=== PATIENT | male | born 1955 | race Caucasian/White ===

== ENCOUNTER 2020-09-23 09:19 | Outpatient (CLI) | payer MEDICARE, SELFPAY ==
[2020-09-23 11:04] LABS: Basophils Percent Auto 0.6 % (0.2-1.2); Eosinophils Absolute Auto 0.1 K/mm3 (0-0.3); Eosinophils Percent Auto 1.7 % (0-4.4); Hematocrit 41.8 % (42.0-52.0); Hemoglobin 13.2 g/dL (14.0-18.0); Immature Granulocyte Absolute 0.02 K/mm3 (0.00-0.031); Immature Granulocyte Percent A 0.3 % (0-0.5); Lymphocytes Absolute Auto 2.18 K/mm3 (0.9-3.2); Mean Corpuscular HGB Conc 31.6 g/dl (32-36); Mean Corpuscular Hemoglobin 27.2 pg (26-34); Mean Corpuscular Volume 86.2 fl (80-100); Mean Platelet Volume 9.8 fl (7.4-10.4); Monocytes Absolute Auto 0.4 K/mm3 (0.1-0.6); Monocytes Percent Auto 6.7 % (2.6-8.5); Neutrophils Absolute Auto 3.8 K/mm3 (1.3-6.7); Neutrophils Percent Auto 57.7 % (45.5-73.1); Platelet Count Result 224 k/mm3 (150-375); Red Blood Count 4.85 M/mm3 (4.6-6.20); Red Cell Distribution Width 13.2 % (11.5-14.5); White Blood Count 6.6 K/mm3 (4.5-10.0)
[2020-09-23 11:16] LABS: Alanine Aminotransferase 11 U/L (4-50); Albumin Level 3.5 g/dL (3.5-5.1); Alkaline Phosphatase 96 U/L (38-126); Anion Gap 3 mmol/L (8-16); Aspartate Amino Transferase 19 U/L (17-59); Bilirubin,Total 0.5 mg/dL (0.2-1.3); Blood Urea Nitrogen 10 mg/dL (9-20); Calcium 9.4 mg/dL (8.4-10.2); Carbon Dioxide 34 mmol/L (22-30); Chloride 102 mmol/L (98-107); Cholesterol 214 mg/dL (0-200); Estimated Glomerular Filt Rate > 60; Glucose 243 mg/dL (75-110); HDL Direct 28 mg/dL; Potassium 4.9 mmol/L (3.4-5.0); Sodium 139 mmol/L (137-145); Triglycerides 300 mg/dL (<150)
[2020-09-23 11:27] LABS: LDL Cholesterol Direct 133 mg/dL
[2020-09-23 11:46] LABS: Prostate Specific Antigen 1.4 ng/mL (< OR = 4.0)
[2020-09-23 12:01] LABS: Creatinine Urine 189.4 mg/dL
[2020-09-23 14:06] LABS: Microalbumin Urine Random > 1140.0 mg/L (0-16.7)
== END 2020-09-23 09:20 | disposition home or self-care (01) ==
PROVIDERS: PCP Internal Medicine; Visit Provider Internal Medicine
DX: I10 Essential (primary) hypertension (principal); E11.9 Type 2 diabetes mellitus without complications; Z12.5 Encounter for screening for malignant neoplasm of prostate
CPT/HCPCS: 36415; 80053; 80061; 82043; 83036; 84153; 85025; G0103

== ENCOUNTER 2022-09-23 09:06 | Outpatient (CLI) | payer MEDICARE, SELFPAY ==
--- NOTE | 2022-09-23 11:30 | NEURO_ITS ---
Impression: #known diabetic, complains of upper extremity pain. 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 # Abnormal neurogenic needle/EMG exam. Motor Nerve Conduction Upper Extremities Median Nerve Conduction Velocity (m/sec) Terminal Latency (msec) Response Voltage(mV) Elbow-Wrist Wrist Elbow Wrist Right 48 4.6 2 2 Left 46 6.9 1 1 Ulnar Nerve Conduction Velocity (m/sec) Terminal Latency (msec) Response Voltage(mV) Above Elbow Below Elbow Wrist Above Elbow Below Elbow Wrist Right 28 NR 3.6 .3 NR .7 Left NR 3.8 NR 1 F-Wave Latency Median (ms) Ulnar (ms) Right 29.9 31.6 Left 29.9 31.2 Sensory Nerve Conduction Upper Extremities Median Nerve Stimulation Terminal Latency (msec) Wrist/Digit Response Voltage (uV) Wrist Right 4.8/5.2 27/9 Left 6.9/NR 3/NR Ulnar Nerve Stimulation Terminal Latency (msec) Wrist/Digit Response Voltage (uV) Wrist Right 6.8 23 Left NR NR Radial Nerve Terminal Latency (msec) Response Voltage(mV) Right 3.3 7 Left NR NR Left Right Muscles Examined Fibrillation Fasciculation Scarcity Voltage Duration Left Right Left Right Left Right Left Right Left Right Deltoid Biceps X X Brachioradialis + = >12ms >12ms Triceps X X Pronator Teres + + >12ms >12ms X X Ext Indicis + + >12ms >12ms X X Ext Digitorum + + >12ms >12ms X X Abd Poll Brev ++ ++ >12ms >12ms X X 1st Dorsal Interosseus + ++ +++ >12ms >12ms X X Abd Dig Min + +++ ++++ >12ms >12ms MTDD
== END 2022-09-23 09:07 | disposition home or self-care (01) ==
PROVIDERS: PCP Internal Medicine; Visit Provider Orthopaedic Surgery Hand Surgery
DX: M25.521 Pain in right elbow (principal); G62.9 Polyneuropathy, unspecified; G56.02 Carpal tunnel syndrome, left upper limb; G56.23 Lesion of ulnar nerve, bilateral upper limbs
CPT/HCPCS: 95886; 95911

== ENCOUNTER 2024-10-10 14:31 | Outpatient (CLI) | payer MEDICARE, SELFPAY ==
--- NOTE | ~2024-10-10 | XR_ITS ---
CHEST RADIOGRAPH, PA AND LATERAL CLINICAL HISTORY: Presence of cardiac pacemaker or defibrillator . COMPARISON: None available TECHNIQUE: PA and lateral views of the chest. FINDINGS The left mid lung is partially obscured due to pacemaker generator. Wires project over the right atrium and right ventricle. The remainder of the cardiomediastinal silhouette is otherwise unremarkable. The lungs are clear. Visualized osseous structures and soft tissues are unremarkable. IMPRESSION: No focal infiltrate or effusion. Reviewed, dictated and finalized at location A. [employer]
== END 2024-10-10 14:32 | disposition home or self-care (01) ==
PROVIDERS: PCP Internal Medicine; Visit Provider Internal Medicine Cardiovascular Disease
DX: Z95.0 Presence of cardiac pacemaker (principal)
CPT/HCPCS: 71046

== ENCOUNTER 2025-02-14 12:00 | Inpatient (IN) | payer MEDICARE, SELFPAY ==
[2025-02-14] VITALS (9 sets, daily range): BP systolic 143–178; BP diastolic 67–87; PULSE 62–79; RESP 13–20; TEMP 36.3–36.4; O2SAT 97–100; BMI 40.8
--- NOTE | ~2025-02-14 | XR_ITS ---
XR foot LT min 3V 02/14/2025 13:21 Indication: Gangrene of the foot Procedure: 3 views left foot Comparison: No prior studies for comparison. Findings: Prominent degenerative calcaneal enthesophytes. There is atherosclerosis of the peripheral vessels. Moderate diffuse soft tissue swelling. There is an erosion at the fifth metatarsal head, ana picious for osteomyelitis. No acute fracture. Lisfranc joint intact. There is polyarticular osteoarth ritis. Impression: 1: Erosion fifth metatarsal head, suspicious for osteomyelitis. Consider correlation with MRI with co ntrast. Reviewed, dictated and finalized at location A. Impression: 1: Erosion fifth metatarsal head, suspicious for osteomyelitis. Consider correl ation with MRI with contrast.
--- NOTE | ~2025-02-14 | XR_ITS ---
EXAMINATION: XR foot RT min 3V DATE: 02/14/2025 13:20 INDICATION: Gangrene. TECHNIQUE: 3 views of right foot were obtained. COMPARISON: None. FINDINGS: Alignment is normal. There is an old healed fracture of diaphysis of fifth metatarsal. No a cute fracture. There is mild osteoarthritis of some of the interphalangeal joints. There are enthesop hytes at the posterior and plantar aspects of calcaneal tuberosity. There is soft tissue swelling in the foot. IMPRESSION: 1. No specific evidence of osteomyelitis. Reviewed, dictated and finalized at location A.
[2025-02-14 12:11] LABS: Glucose Point of Care 198 mg/dl (65-105)
[2025-02-14 12:24] LABS: Basophils Absolute Auto 0.1 K/mm3 (0.0-0.1); Basophils Percent Auto 0.8 % (0.2-1.2); Eosinophils Absolute Auto 0.2 K/mm3 (0-0.3); Eosinophils Percent Auto 2.8 % (0-4.4); Hematocrit 27.3 % (42.0-52.0); Immature Granulocyte Absolute 0.06 K/mm3 (0.00-0.031); Immature Granulocyte Percent A 0.7 % (0-0.5); Lymphocytes Absolute Auto 1.48 K/mm3 (0.9-3.2); Lymphocytes Percent Auto 17.2 % (18.3-44.2); Mean Corpuscular HGB Conc 29.3 g/dl (32-36); Mean Corpuscular Hemoglobin 25.5 pg (26-34); Mean Corpuscular Volume 86.9 fl (80-100); Mean Platelet Volume 9.3 fl (7.4-10.4); Monocytes Absolute Auto 0.5 K/mm3 (0.1-0.6); Monocytes Percent Auto 5.5 % (2.6-8.5); Neutrophils Absolute Auto 6.3 K/mm3 (1.3-6.7); Platelet Count Result 371 k/mm3 (150-375); Red Blood Count 3.14 M/mm3 (4.6-6.20); Red Cell Distribution Width 14.6 % (11.5-14.5); White Blood Count 8.6 K/mm3 (4.5-10.0)
[2025-02-14 12:34] LABS: Alanine Aminotransferase 17 U/L (6-50); Albumin Level 3.8 g/dL (3.5-5.1); Alkaline Phosphatase 95 U/L (38-126); Anion Gap 17 mmol/L (4-12); Aspartate Amino Transferase 19 U/L (17-59); Bilirubin,Total 0.5 mg/dL (0.2-1.3); Blood Urea Nitrogen 90 mg/dL (9-20); Calcium 8.9 mg/dL (8.4-10.2); Carbon Dioxide 23 mmol/L (22-30); Chloride 102 mmol/L (98-107); Estimated CRCL calculation 32 ml/min; Estimated Glomerular Filt Rate 23; Glucose 217 mg/dL (65-110); Potassium 3.7 mmol/L (3.4-5.0); Sodium 142 mmol/L (137-145)
[2025-02-14 13:06] LABS: Hypochromasia 1+; Platelet Estimate Adequate (Adequate)
[2025-02-14 13:07] LABS: Anisocytosis 1+; Schistocytes None Seen
--- NOTE | 2025-02-14 13:11 | ED_ITS ---
HPI - Extremity Problem General Chief complaint: Extremity Problem,Nontraumatic Stated complaint: ?gangrene to b/l feet Time Seen by Provider: 02/14/25 12:46 History of Present Illness HPI Narrative: 70-year-old male with a past medical history including type 2 diabetes insulin dependent, CKD, previous diabetic foot infections with heel debridement at [facility]. Patient's eyes counseling program leader yesterday for evaluation of discolored toes. He has black necrotic appearing toes on digits 4 and 5 on the left foot, digit 4 on the right foot. He states these have progressively worsened over last few weeks. His counseling program leader saw them yesterday and advised admission to the hospital. He was instructed to go to a different hospital than his normal care at [facility] secondary to insurance issues which is what the family is telling me presently. He denies any fever chills. Denies any new neuropathy weakness. He does have chronic edematous legs. No chest pain shortness a breath. Remote history of atrial fibrillation and on Eliquis. He has a pacemaker. Related Data Home Medications ?Medication ?Instructions ?Recorded ?Confirmed ?Last Taken ?Type atorvastatin 20 mg tablet 20 mg PO HS 06/30/23 02/14/25 Unknown History albuterol 90 mcg/actuation aerosol 90 mcg inhalation .q4hr PRN 02/14/25 02/14/25 Unknown History inhaler shortness of breath apixaban 5 mg tablet (Eliquis) 5 mg PO BID 02/14/25 02/14/25 Unknown History bumetanide 1 mg tablet 1 mg PO BID 02/14/25 02/14/25 Unknown History insulin glargine 100 unit/mL (3 25 unit subcut .q12hr 02/14/25 02/14/25 Unknown History mL) subcutaneous pen (Basaglar KwikPen U-100 Insulin) insulin lispro 100 unit/mL 10 unit subcut TIDWM 02/14/25 02/14/25 Unknown History subcutaneous pen (Humalog KwikPen (U-100) Insulin) metolazone 2.5 mg tablet 2.5 mg PO QMWF 02/14/25 02/14/25 Unknown History Allergies Allergy/AdvReac Type Severity Reaction Status Date / Time No Known Allergies Allergy Verified 02/14/25 12:05 Review of Systems 2 Review of Systems: As reviewed above in HPI [facility] Past Medical History Medical History BPH (benign prostatic hyperplasia) HTN (hypertension) Congestive heart failure Atrial fibrillation/flutter Hypothyroidism Diabetes mellitus type 2 in obese Family History Family History Unknown Diabetes mellitus Social History Social History Smoking status: Never smoker Alcohol intake: former Substance use: never Do You Feel Safe in your Home?: Yes Lack of Transportation: No Lack of Food: Never True Current Housing: I Have Housing Concerned About Future Housing: No Difficulty Paying Gas/Electric Bills: No Difficulty Paying for Meds: No Currently Unemployed: No Education: High School Diploma/GED Difficulty w/ Childcare or Family Care: No Spiritual care concerns: No Exam 2 Narrative: GENERAL: Chronically ill-appearing, not any acute distress HEAD: [Normocephalic, atraumatic.] EYES: [PERRLA and EOMI.] ENT: Nares clear, no rhinorrhea or epistaxis. Mucous membranes moist. NECK: Supple. CHEST: [Clear to auscultation. No respiratory distress.] HEART: [Regular rate and rhythm]. No murmur heard. Warm well-perfused extremities, faint palpable pulses likely due to edema in both feet but 2+ strong biphasic dopplerable pulses bilaterally in the feet ABDOMEN: [Soft, nondistended], [nontender], [No rigidity or guarding] EXTREMITIES: Normal range of motion. 2+ pitting edema. Gangrenous appearing toes of digits 4 5 in left foot, gangrenous appearing toe of digit 4 on the right foot. Purulence surrounding these digits as well. No sensation with palpation, no mobility. Multiple various stages of healing ulcerations of the bilateral toes, old pressure ulcer surgery of the right heel SKIN: Warm, dry, no rash. NEURO: [No focal deficits]. Alert and oriented [x3.] PSYCH: [Normal mood and affect.] Course Vital Signs Vital signs: Vital Signs Temperature 36.4 C L 02/14/25 11:54 Pulse Rate 71 02/14/25 11:54 Respiratory Rate 15 02/14/25 11:54 Blood Pressure 143/76 H 02/14/25 11:54 Pulse Oximetry 97 02/14/25 11:54 Oxygen Delivery Room Air 02/14/25 11:54 Temperature 36.3 C L 02/14/25 15:27 Pulse Rate 79 02/14/25 15:27 Respiratory Rate 16 02/14/25 15:27 Blood Pressure 173/87 H 02/14/25 15:27 Pulse Oximetry 99 02/14/25 15:27 Oxygen Delivery Room Air 02/14/25 15:59 MDM - Extremity (Nontraumatic) MDM Narrative Medical decision making narrative: 70-year-old male with history of type 2 diabetes, hypertension, CKD, atrial fibrillation on Eliquis b.i.d.. He presents to the emergency department today with gangrenous appearing toes with surrounding purulence. Appears to be wet gangrene of digits 4 5 in left foot, digits 4 on the right foot. Symptoms going on for several weeks but he has had chronic wounds for over 2 years according to him. Saw his counseling program leader yesterday who recommended going to a hospital for admission. He normally gets his care at [facility] but due to recent insurance issues and changes they were instructed to go to a different facility such as [facility] for admission. His counseling program leader is not associated with our facility. Patient's vital signs are not significant as he has no tachycardia, fever or hypoxia. No med significant blood pressure elevations. Chronic edematous appearing legs, chronically ill-appearing baseline but not septic appearing at this time. Laboratory studies were ordered including CBC, CMP, lactic acid, EKG. X-rays of bilateral foot were obtained. He was started on empiric antibiotics including vancomycin, metronidazole, Rocephin for coverage of diabetic foot wound. Attempted to call 2 different counseling program leader associated with [facility] who are out of the office not able to take his case. Will attempt to consult General surgery for recommendations. Laboratory studies showed no leukocytosis, anemia around his baseline. Negative lactic acid. GLORIA on CKD, mildly elevated glucose, normal LFTs, unremarkable electrolytes. X-rays of the right foot showed no evidence of osteomyelitis, left foot has some possible lucency consistent with osteomyelitis of the 5th metatarsal head. Patient is on appropriate antibiotic coverage including vancomycin for this. Spoke to general surgeon Dr. Hopkins who agreed to be on consult for potential amputation of the multiple gangrenous digits. Patient was made aware of the plan and he will be admitted to the hospitalist given his significant comorbidities. Spoke to the hospitalist team currently being covered by the midlevel provider who accepted the patient at this time to a medical/surgical bed. Lab Data 02/14/25 12:19 02/14/25 12:19 Labs: Lab Results 02/14/25 02/14/25 02/14/25 Range/Units 12:07 12:19 13:29 WBC 8.6 (4.5-10.0) K/mm3 RBC 3.14 L (4.6-6.20) M/mm3 Hgb 8.0 L (14.0-18.0) g/dL Hct 27.3 L (42.0-52.0) % MCV 86.9 (80-100) fl MCH 25.5 L (26-34) pg MCHC 29.3 L (32-36) g/dl RDW 14.6 H (11.5-14.5) % Plt Count 371 (150-375) k/mm3 MPV 9.3 (7.4-10.4) fl Immature Gran % (Auto) 0.7 H (0-0.5) % Neut % (Auto) 73.0 (45.5-73.1) % Lymph % (Auto) 17.2 L (18.3-44.2) % Grant % (Auto) 5.5 (2.6-8.5) % Eos % (Auto) 2.8 (0-4.4) % Baso % (Auto) 0.8 (0.2-1.2) % Lymph # (Auto) 1.48 (0.9-3.2) K/mm3 Grant # (Auto) 0.5 (0.1-0.6) K/mm3 Eos # (Auto) 0.2 (0-0.3) K/mm3 Baso # (Auto) 0.1 (0.0-0.1) K/mm3 Abs Immat Gran (auto) 0.06 H (0.00-0.031) K/mm3 Absolute Neuts (auto) 6.3 (1.3-6.7) K/mm3 Absolute Nucleated RBC 0.000 (0.0-0.012) K/mm3 Band Neutrophils % Not Reportable Nucleated RBC % 0.0 (0.0-0.2) % Platelet Estimate Adequate (Adequate) Hypochromasia 1+ Anisocytosis 1+ Schistocytes None seen Sodium 142 (137-145) mmol/L Potassium 3.7 (3.4-5.0) mmol/L Chloride 102 (98-107) mmol/L Carbon Dioxide 23 (22-30) mmol/L Anion Gap 17 H (4-12) mmol/L BUN 90 H D (9-20) mg/dL Creatinine 2.75 H (0.7-1.3) mg/dL Estim Creat Clear Calc 32 ml/min Estimated GFR 23 L (59 - ) Glucose 217 H (65-110) mg/dL POC Capillary Glucose 198 H (65-105) mg/dl Lactic Acid 1.4 (0.7-2.0) mmol/L Calcium 8.9 (8.4-10.2) mg/dL Total Bilirubin 0.5 (0.2-1.3) mg/dL AST 19 (17-59) U/L ALT 17 (6-50) U/L Alkaline Phosphatase 95 (38-126) U/L Total Protein 8.0 (6.3-8.2) g/dL Albumin 3.8 (3.5-5.1) g/dL Critical Care Time Critical Care Time Critical Care Time: Yes Total Critical Care Time: 35 Discharge Plan Discharge Clinical Impression: Gangrene, Diabetic foot ulcer with osteomyelitis, Acute kidney injury superimposed on CKD HTN (hypertension) Qualifiers: Hypertension type: primary hypertension Qualified Code(s): I10 - Essential (primary) hypertension Patient Disposition: Still a Patient Condition: Stable
--- NOTE | 2025-02-14 13:13 | ECG_ITS ---
Test Date: 2025-02-14 13:38:42 Measurements Intervals [place] Rate: 70 P: 129 SD: 270 QRS: 15 QRSD: 134 T: 48 QT: 443 QTc: 480 Interpretive Statements ELECTRONIC ATRIAL PACEMAKER INTRAVENTRICULAR CONDUCTION DELAY [130+ ms QRS DURATION] No previous ECG available for comparison Electronically Signed On 02-14-2025 14:39:20 CDT by Oliver Sanchez M.D.
[2025-02-14] MEDS: LACTATED RINGERS 1,000 ML 999 ML IV CONT (13:33)
[2025-02-14] MEDS: cefTRIAXone 2 GM/NS 100 ML 2 GM/100 ML BAG IVPB (13:34)
--- OUTSIDE RECORDS SUMMARY | 2025-02-14 13:47 | XMS_ITS | Data Portability ---
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 [email or web address] Not available 02/19/2024 15:11:16 04/03/2024 04/03/2024 Foot problems will be addressed by cardiology and by wound care will refer him back to cardiology for his peripheral arterial disease and his edema and chronic diastolic heart failure continue current therapy otherwise and see me in 2 months SGLT2 he has been unable to get financially [email or web address] Not available 04/29/2024 13:30:53 07/03/2024 07/03/2024 long talk with him about his dietary indiscretions recommend that he see a dietitian he will think about it we will check a hemoglobin A1c CMP CBC just lipidemia he will be evaluated with a lipid panel follow up with me in 3 months he needs to get back on insulin [email or web address] Not available 07/06/2024 08:13:56 10/03/2024 10/03/2024 diabetes appears to be stable clinically. His hemoglobin A1c point of care is 6.7 which is a phenomenal drop from his previous number congratulated him on his dietary management. Obtain chest x-ray from the emergency room and the ER sheet. We will continue with all of the therapies right now. He will follow up with me in 2 months [email or web address] Not available 10/14/2024 15:52:45 01/04/2025 01/04/2025 decongestant he needs some physical therapy he needs blood work diagnosis have been discussed hypertension chronic diastolic heart failure hypothyroidism type 2 diabetes neuropathy pneumococcal vaccine flu shot see me in 3 months physical therapy blood work. [email or web address] Not available 01/05/2025 16:03:04 Plan of Treatment Reminders Order Date Submit Date Provider Last Modified By Organization Details Last Modified Time Details Appointments ANY 15 2024 01:15P Tigist Hough MD Not available Not available Not available Lab HbA1c (hemoglob in A1c), blood 2024 025 [facility], [address], [place] [address], [place], [address], 01/05/2025 08:24:23 CMP, serum or plasma 2024 025 [facility], [address] [place] [address], [facility] [address], [place], [address], 01/05/2025 08:24:22 CBC w/ auto diff 2024 025 [facility], [address] [place] [address], [facility] [address], [place], [address], 01/05/2025 08:24:25 lipid panel, serum 2024 025 [facility], [address] [place] [address], [facility] [address], [place], [address], 01/05/2025 08:24:20 TSH, ultra-sen sitive, serum 2024 025 [facility], [facility], [facility] [address], [place], [address], 01/05/2025 08:24:24 T3, free, serum or plasma 2024 025 [facility], [address] [place] [address], [address], [place], [address], 01/05/2025 08:24:27 T4, free, serum 2024 025 [facility], [address], [address], [place], [address], 01/05/2025 08:24:28 HbA1c (hemoglob in A1c), blood 2023 024 [email or web address] In-Office Order, Internal Use Only DO Not Attach Compendium DO Not Attach Compendium, Do Not Delete/merge, [id number] 10/03/2024 15:05:51 CMP, serum or plasma 2023 024 [facility], [address], [address], [place], [address], 07/04/2024 10:15:31 CBC w/ auto diff 2023 024 [facility], [address], [address], [place], [address], 07/04/2024 10:15:32 HbA1c (hemoglob in A1c), blood 2023 024 [facility], [address], [address], [place], [address], 07/04/2024 10:15:32 lipid panel, serum 2023 024 [facility], [address], [address], [place], [address], 07/04/2024 10:15:30 HbA1c (hemoglob in A1c), blood 2023 024 [id number] In-Office Order, Internal Use Only DO Not Attach Compendium DO Not Attach Compendium, Do Not Delete/merge, [id number] 02/06/2024 18:14:19 Referral physical therapist referral 2024 025 [email or web address], [address], [place], [address], 02/12/2025 12:34:58 cardiolog ist referral 2023 024 [facility] Bañuelos MD, [address], [address], [place], [address], 04/13/2024 11:54:46 Procedures None recorded. Surgeries None recorded. Imaging None recorded. Medication Orders None recorded. Patient TargetsNo targets recorded. 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 failure Referring Physician: Dulce Hough, Internal Medicine, Encounter Date: 04/03/2024 Physical Therapist Referral for Abnormal gait Referring Physician: Dulce Hough, Internal Medicine, Encounter Date: 01/04/2025 Results Created Date Observation Date Name Description Value Unit Range Abnormal Flag Note LastModifiedBy Organization Detail LastModifiedTime 02/06/2002/06/2024 HbA1c (hemo globi n A1c), blood HbA1c 5.8 Not Available In-Office Order Internal Use Only DO Not Attach Compendium DO Not Attach Compendium, Do Not Delete/merge, [id number] 02/06/2024 16:42:21 07/03/20 24 07/04/2024 LIPID PANEL cholesterol, total 155 mg/dL 100-19 9 Not Available [facility] ([facility]) [address] [facility], [place], [address], 07/04/2024 10:15:30 07/03/20 24 07/04/2024 LIPID PANEL triglyceride s 294 mg/dL 0-149 above high normal Not Available [facility] ([facility]) [address] [facility], [place], [address], 07/04/2024 10:15:30 07/03/20 24 07/04/2024 LIPID PANEL HDL cholesterol 29 mg/dL >39 below low normal Not Available [facility] ([facility]) [address] [place], [address], 07/04/2024 10:15:30 07/03/20 24 07/04/2024 LIPID PANEL VLDL cholesterol nicholas 48 mg/dL 5-40 above high normal Not Available [facility] ([facility]) [address] [facility], [place], [address], 07/04/2024 10:15:30 07/03/20 24 07/04/2024 LIPID PANEL LDL chol calc ([facility]) 78 mg/dL 0-99 Not Available [facility]) [address] [place], [address], 07/04/2024 10:15:30 07/03/20 24 07/04/2024 COMP. METAB OLIC PANEL (14) glucose 590 mg/dL 70-99 panic high Lindsey ified by repea t julieta sis Not Available [facility] ([facility]) [address] [place], [address], 07/04/2024 10:15:31 07/03/20 24 07/04/2024 COMP. METAB OLIC PANEL (14) BUN 89 mg/dL 8-27 alert high Not Available [facility] ([facility]) [address] [place], [address], 07/04/2024 10:15:31 07/03/20 24 07/04/2024 COMP. METAB OLIC PANEL (14) creatinine 2.24 mg/dL 0.76-1 .27 above high normal Not Available [facility] ([facility]) [address] [place], [address], 07/04/2024 10:15:31 07/03/20 24 07/04/2024 COMP. METAB OLIC PANEL (14) eGFR 31 mL/mi n/1.7 3 >59 below low normal Not Available [facility] ([facility]) [address] [place], [address], 07/04/2024 10:15:31 07/03/20 24 07/04/2024 COMP. METAB OLIC PANEL (14) BUN/creatini ne ratio 40 10-24 above high normal Not Available [facility] ([facility]) [address] [place] [place], [address], 07/04/2024 10:15:31 07/03/20 24 07/04/2024 COMP. METAB OLIC PANEL (14) sodium 133 mmol/ L 134-14 4 below low normal Not Available [facility] ([facility]) [address] [facility] [place], [address], 07/04/2024 10:15:31 07/03/20 24 07/04/2024 COMP. METAB OLIC PANEL (14) potassium 5.1 mmol/ L 3.5-5. 2 Not Available [facility] ([facility]) [address] [place], [address], 07/04/2024 10:15:31 07/03/20 24 07/04/2024 COMP. METAB OLIC PANEL (14) chloride 92 mmol/ L 96-106 below low normal Not Available [facility] ([facility]) [address] [place], [address], 07/04/2024 10:15:31 07/03/20 24 07/04/2024 COMP. METAB OLIC PANEL (14) carbon dioxide, total 26 mmol/ L 20-29 Not Available [facility] ([facility]) [address] [place], [address], 07/04/2024 10:15:31 07/03/20 24 07/04/2024 COMP. METAB OLIC PANEL (14) calcium 9.3 mg/dL 8.6-10 .2 Not Available [facility] ([facility]) [address] [place], [address], 07/04/2024 10:15:31 07/03/20 24 07/04/2024 COMP. METAB OLIC PANEL (14) protein, total 7.3 g/dL 6.0-8. 5 Not Available [facility] ([facility]) [address] [place], [address], 07/04/2024 10:15:31 07/03/20 24 07/04/2024 COMP. METAB OLIC PANEL (14) albumin 4.0 g/dL 3.8-4. 8 Not Available [facility] ([facility]) [address] [place], [address], 07/04/2024 10:15:31 07/03/20 24 07/04/2024 COMP. METAB OLIC PANEL (14) globulin, total 3.3 g/dL 1.5-4. 5 Not Available [facility] ([facility]) [address] [place], [address], 07/04/2024 10:15:31 07/03/20 24 07/04/2024 COMP. METAB OLIC PANEL (14) bilirubin, total 0.4 mg/dL 0.0-1. 2 Not Available [facility] ([facility]) [address] [place], [address], 07/04/2024 10:15:31 07/03/20 24 07/04/2024 COMP. METAB OLIC PANEL (14) alkaline phosphatase 140 IU/L 44-121 above high normal Not Available [facility] ([facility]) [address] [place], [address], 07/04/2024 10:15:31 07/03/20 24 07/04/2024 COMP. METAB OLIC PANEL (14) AST (SGOT) 12 IU/L 0-40 Not Available [facility] ([facility]) [address] [facility], [place], [address], 07/04/2024 10:15:31 07/03/20 24 07/04/2024 COMP. METAB OLIC PANEL (14) ALT (SGPT) 11 IU/L 0-44 Not Available [facility] ([facility]) [address] [facility], [place], [address], 07/04/2024 10:15:31 07/03/20 24 07/04/2024 HEMOG LOBIN A1C hemoglobin A1C 11.9 % 4.8-5. 6 above high normal Predi abete s: 5.7 - 6.4 Diabe carmel: >6.4 Glyce cami contr ol for adult s with diabe carmel: <7.0 Not Available [facility] ([facility]) [address] [facility], [place], [address], 07/04/2024 10:15:31 07/03/20 24 07/04/2024 CBC WITH DIFFE RENTI AL/PL ATELE T WBC 6.8 x10e3 /uL 3.4-10 .8 Not Available [facility] ([facility]) [address] [facility], [place], [address], 07/04/2024 10:15:32 07/03/20 24 07/04/2024 CBC WITH DIFFE RENTI AL/PL ATELE T RBC 3.84 x10e6 /uL 4.14-5 .80 below low normal Not Available [facility] ([facility]) [address] [place], [address], 07/04/2024 10:15:32 07/03/20 24 07/04/2024 CBC WITH DIFFE RENTI AL/PL ATELE T hemoglobin 11.1 g/dL 13.0-1 7.7 below low normal Not Available [facility] ([facility]) [address] [place], [address], 07/04/2024 10:15:32 07/03/20 24 07/04/2024 CBC WITH DIFFE RENTI AL/PL ATELE T hematocrit 36.2 % 37.5-5 1.0 below low normal Not Available [facility] ([facility]) [address] [facility], [place], [address], 07/04/2024 10:15:32 07/03/20 24 07/04/2024 CBC WITH DIFFE RENTI AL/PL ATELE T MCV 94 fL 79-97 Not Available [facility] ([facility]) [address] [facility], [place], [address], 07/04/2024 10:15:32 07/03/20 24 07/04/2024 CBC WITH DIFFE RENTI AL/PL ATELE T MCH 28.9 pg 26.6-3 3.0 Not Available [facility] ([facility]) [address] [facility], [place], [address], 07/04/2024 10:15:32 07/03/20 24 07/04/2024 CBC WITH DIFFE RENTI AL/PL ATELE T MCHC 30.7 g/dL 31.5-3 5.7 below low normal Not Available [facility] ([facility]) [address] [facility], [place], [address], 07/04/2024 10:15:32 07/03/20 24 07/04/2024 CBC WITH DIFFE RENTI AL/PL ATELE T RDW 13.0 % 11.6-1 5.4 Not Available [facility] ([facility]) [address] [place], [address], 07/04/2024 10:15:32 07/03/2007/04/2024 CBC WITH DIFFE RENTI AL/PL ATELE T platelets 213 x10e3 /uL 150-45 0 Not Available [facility] ([facility]) [address] [place], [address], 07/04/2024 10:15:32 07/03/20 24 07/04/2024 CBC WITH DIFFE RENTI AL/PL ATELE T neutrophils 64 % notest ab. Not Available [facility] ([facility]) [address] [facility], [place], [address], 07/04/2024 10:15:32 07/03/20 24 07/04/2024 CBC WITH DIFFE RENTI AL/PL ATELE T lymphs 25 % notest ab. Not Available [facility] ([facility]) [address] [facility], [place], [address], 07/04/2024 10:15:32 07/03/20 24 07/04/2024 CBC WITH DIFFE RENTI AL/PL ATELE T monocytes 7 % notest ab. Not Available [facility] ([facility]) [address] [facility], [place], [address], 07/04/2024 10:15:32 07/03/20 24 07/04/2024 CBC WITH DIFFE RENTI AL/PL ATELE T eos 3 % notest ab. Not Available [facility] ([facility]) [address] [facility], [place], [address], 07/04/2024 10:15:32 07/03/20 24 07/04/2024 CBC WITH DIFFE RENTI AL/PL ATELE T basos 1 % notest ab. Not Available [facility] ([facility]) [address] [facility], [place], [address], 07/04/2024 10:15:32 07/03/20 24 07/04/2024 CBC WITH DIFFE RENTI AL/PL ATELE T neutrophils (absolute) 4.3 x10e3 /uL 1.4-7. 0 Not Available [facility] ([facility]) [address] [facility], [place], [address], 07/04/2024 10:15:32 07/03/20 24 07/04/2024 CBC WITH DIFFE RENTI AL/PL ATELE T lymphs (absolute) 1.7 x10e3 /uL 0.7-3. 1 Not Available [facility] ([facility]) [address] [facility], [place], [address], 07/04/2024 10:15:32 07/03/20 24 07/04/2024 CBC WITH DIFFE RENTI AL/PL ATELE T monocytes(ab solute) 0.5 x10e3 /uL 0.1-0. 9 Not Available [facility] ([facility]) [address] [facility], [place], [address], 07/04/2024 10:15:32 07/03/20 24 07/04/2024 CBC WITH DIFFE RENTI AL/PL ATELE T eos (absolute) 0.2 x10e3 /uL 0.0-0. 4 Not Available [facility] ([facility]) [address] [facility], [place], [address], 07/04/2024 10:15:32 07/03/20 24 07/04/2024 CBC WITH DIFFE RENTI AL/PL ATELE T baso (absolute) 0.0 x10e3 /uL 0.0-0. 2 Not Available [facility] ([facility]) [address] [facility], [place], [address], 07/04/2024 10:15:32 07/03/20 24 07/04/2024 CBC WITH DIFFE RENTI AL/PL ATELE T immature granulocytes 0 % notest ab. Not Available [facility] ([facility]) [address] [facility], [place], [address], 07/04/2024 10:15:32 07/03/20 24 07/04/2024 CBC WITH DIFFE RENTI AL/PL ATELE T immature grans (abs) 0.0 x10e3 /uL 0.0-0. 1 Not Available [facility] ([facility]) [address] [facility], [place], [address], 07/04/2024 10:15:32 10/03/20 24 10/03/2024 HbA1c (hemo globi n A1c), blood HbA1c 6.7 Not Available In-Office Order Internal Use Only DO Not Attach Compendium DO Not Attach Compendium, Do Not Delete/merge, [id number] 10/03/2024 14:43:11 01/04/20 25 01/05/2025 LIPID PANEL cholesterol, total 121 mg/dL 100-19 9 Not Available [facility] ([facility]) [address] [place], [address], 01/05/2025 08:24:20 01/04/20 25 01/05/2025 LIPID PANEL triglyceride s 241 mg/dL 0-149 above high normal Not Available [facility] ([facility]) [address] [place], [address], 01/05/2025 08:24:20 01/04/20 25 01/05/2025 LIPID PANEL HDL cholesterol 25 mg/dL >39 below low normal Not Available [facility] ([facility]) [address] [place], [address], 01/05/2025 08:24:20 01/04/20 25 01/05/2025 LIPID PANEL VLDL cholesterol nicholas 39 mg/dL 5-40 Not Available [facility]) [address] [place], [address], 01/05/2025 08:24:20 01/04/20 25 01/05/2025 LIPID PANEL LDL chol calc ([facility]) 57 mg/dL 0-99 Not Available [facility] ([facility]) [address] [place], [address], 01/05/2025 08:24:20 01/04/20 25 01/05/2025 COMP. METAB OLIC PANEL (14) glucose 132 mg/dL 70-99 above high normal Not Available [facility] ([facility]) [address] [place], [address], 01/05/2025 08:24:21 01/04/20 25 01/05/2025 COMP. METAB OLIC PANEL (14) BUN 56 mg/dL 8-27 above high normal Not Available [facility] ([facility]) [address] [place], [address], 01/05/2025 08:24:21 01/04/20 25 01/05/2025 COMP. METAB OLIC PANEL (14) creatinine 2.23 mg/dL 0.76-1 .27 above high normal Not Available [facility] ([facility]) [address] [place], [address], 01/05/2025 08:24:21 01/04/20 25 01/05/2025 COMP. METAB OLIC PANEL (14) eGFR 31 mL/mi n/1.7 3 >59 below low normal Not Available [facility] ([facility]) [address] [place], [address], 01/05/2025 08:24:21 01/04/20 25 01/05/2025 COMP. METAB OLIC PANEL (14) BUN/creatini ne ratio 25 10-24 above high normal Not Available [facility] ([facility]) [address] [place], [address], 01/05/2025 08:24:21 01/04/20 25 01/05/2025 COMP. METAB OLIC PANEL (14) sodium 144 mmol/ L 134-14 4 Not Available [facility] ([facility]) [address] [place], [address], 01/05/2025 08:24:21 01/04/20 25 01/05/2025 COMP. METAB OLIC PANEL (14) potassium 4.8 mmol/ L 3.5-5. 2 Not Available [facility] ([facility]) [address] [place], [address], 01/05/2025 08:24:21 01/04/20 25 01/05/2025 COMP. METAB OLIC PANEL (14) chloride 107 mmol/ L 96-106 above high normal Not Available [facility] ([facility]) [address] [place], [address], 01/05/2025 08:24:21 01/04/20 25 01/05/2025 COMP. METAB OLIC PANEL (14) carbon dioxide, total 23 mmol/ L 20-29 Not Available [facility] ([facility]) [address] [place], [address], 01/05/2025 08:24:21 01/04/20 25 01/05/2025 COMP. METAB OLIC PANEL (14) calcium 8.4 mg/dL 8.6-10 .2 below low normal Not Available [facility] ([facility]) [address] [place], [address], 01/05/2025 08:24:21 01/04/20 25 01/05/2025 COMP. METAB OLIC PANEL (14) protein, total 6.7 g/dL 6.0-8. 5 Not Available [facility] ([facility]) [address] [place], [address], 01/05/2025 08:24:21 01/04/20 25 01/05/2025 COMP. METAB OLIC PANEL (14) albumin 3.6 g/dL 3.8-4. 8 below low normal Not Available [facility] ([facility]) [address] [place], [address], 01/05/2025 08:24:21 01/04/20 25 01/05/2025 COMP. METAB OLIC PANEL (14) globulin, total 3.1 g/dL 1.5-4. 5 Not Available [facility] ([facility]) [address] [place], [address], 01/05/2025 08:24:21 01/04/20 25 01/05/2025 COMP. METAB OLIC PANEL (14) bilirubin, total <0.2 mg/dL 0.0-1. 2 Not Available [facility] ([facility]) [address] [place], [address], 01/05/2025 08:24:21 01/04/20 25 01/05/2025 COMP. METAB OLIC PANEL (14) alkaline phosphatase 120 IU/L 44-121 Not Available [facility]) [address] [place], [address], 01/05/2025 08:24:21 01/04/20 25 01/05/2025 COMP. METAB OLIC PANEL (14) AST (SGOT) 14 IU/L 0-40 Not Available [facility] ([facility]) [address] [place], [address], 01/05/2025 08:24:21 01/04/20 25 01/05/2025 COMP. METAB OLIC PANEL (14) ALT (SGPT) 9 IU/L 0-44 Not Available [facility] ([facility]) [address] [place], [address], 01/05/2025 08:24:21 01/04/20 25 01/05/2025 HEMOG LOBIN A1C hemoglobin A1C 7.9 % 4.8-5. 6 above high normal Predi abete s: 5.7 - 6.4 Diabe carmel: >6.4 Glyce cami contr ol for adult s with diabe carmel: <7.0 Not Available [facility] ([facility]) [address] [place], [address], 01/05/2025 08:24:23 01/04/2001/05/2025 TSH TSH 3.750 uIU/m L 0.450- 4.500 Not Available [facility] ([facility]) [address] [place], [address], 01/05/2025 08:24:24 01/04/20 25 01/05/2025 CBC WITH DIFFE RENTI AL/PL ATELE T WBC 6.4 x10e3 /uL 3.4-10 .8 Not Available [facility] ([facility]) [address] [place], [address], 01/05/2025 08:24:25 01/04/20 25 01/05/2025 CBC WITH DIFFE RENTI AL/PL ATELE T RBC 3.04 x10e6 /uL 4.14-5 .80 below low normal Not Available [facility] ([facility]) [address] [place], [address], 01/05/2025 08:24:25 01/04/2001/05/2025 CBC WITH DIFFE RENTI AL/PL ATELE T hemoglobin 8.1 g/dL 13.0-1 7.7 below low normal Not Available [facility] ([facility]) [address] [place], [address], 01/05/2025 08:24:25 01/04/2001/05/2025 CBC WITH DIFFE RENTI AL/PL ATELE T hematocrit 26.8 % 37.5-5 1.0 below low normal Not Available [facility] ([facility]) [address] [place], [address], 01/05/2025 08:24:25 01/04/2001/05/2025 CBC WITH DIFFE RENTI AL/PL ATELE T MCV 88 fL 79-97 Not Available [facility] ([facility]) [address] [place], [address], 01/05/2025 08:24:25 01/04/2001/05/2025 CBC WITH DIFFE RENTI AL/PL ATELE T MCH 26.6 pg 26.6-3 3.0 Not Available [facility] ([facility]) [address] [place], [address], 01/05/2025 08:24:25 01/04/20 25 01/05/2025 CBC WITH DIFFE RENTI AL/PL ATELE T MCHC 30.2 g/dL 31.5-3 5.7 below low normal Not Available [facility] ([facility]) [address] [facility], [place], [address], 01/05/2025 08:24:25 01/04/20 25 01/05/2025 CBC WITH DIFFE RENTI AL/PL ATELE T RDW 13.6 % 11.6-1 5.4 Not Available [facility] ([facility]) [address] [facility], [place], [address], 01/05/2025 08:24:25 01/04/20 25 01/05/2025 CBC WITH DIFFE RENTI AL/PL ATELE T platelets 313 x10e3 /uL 150-45 0 Not Available [facility] ([facility]) [address] [facility], [place], [address], 01/05/2025 08:24:25 01/04/20 25 01/05/2025 CBC WITH DIFFE RENTI AL/PL ATELE T neutrophils 67 % notest ab. Not Available [facility] ([facility]) [address] [facility], [place], [address], 01/05/2025 08:24:25 01/04/20 25 01/05/2025 CBC WITH DIFFE RENTI AL/PL ATELE T lymphs 20 % notest ab. Not Available [facility] ([facility]) [address] [place], [address], 01/05/2025 08:24:25 01/04/20 25 01/05/2025 CBC WITH DIFFE RENTI AL/PL ATELE T monocytes 6 % notest ab. Not Available [facility] ([facility]) [address] [place], [address], 01/05/2025 08:24:25 01/04/20 25 01/05/2025 CBC WITH DIFFE RENTI AL/PL ATELE T eos 5 % notest ab. Not Available [facility] ([facility]) [address] [place], [address], 01/05/2025 08:24:25 01/04/20 25 01/05/2025 CBC WITH DIFFE RENTI AL/PL ATELE T basos 1 % notest ab. Not Available [facility] ([facility]) [address] [facility], [place], [address], 01/05/2025 08:24:25 01/04/20 25 01/05/2025 CBC WITH DIFFE RENTI AL/PL ATELE T neutrophils (absolute) 4.3 x10e3 /uL 1.4-7. 0 Not Available [facility] ([facility]) [address] [facility], [place], [address], 01/05/2025 08:24:25 01/04/20 25 01/05/2025 CBC WITH DIFFE RENTI AL/PL ATELE T lymphs (absolute) 1.3 x10e3 /uL 0.7-3. 1 Not Available [facility] ([facility]) [address] [place], [address], 01/05/2025 08:24:25 01/04/20 25 01/05/2025 CBC WITH DIFFE RENTI AL/PL ATELE T monocytes(ab solute) 0.4 x10e3 /uL 0.1-0. 9 Not Available [facility] ([facility]) [address] [place], [address], 01/05/2025 08:24:25 01/04/20 25 01/05/2025 CBC WITH DIFFE RENTI AL/PL ATELE T eos (absolute) 0.3 x10e3 /uL 0.0-0. 4 Not Available [facility] ([facility]) [address] [place], [address], 01/05/2025 08:24:25 01/04/20 25 01/05/2025 CBC WITH DIFFE RENTI AL/PL ATELE T baso (absolute) 0.1 x10e3 /uL 0.0-0. 2 Not Available [facility] ([facility]) [address] [facility], [place], [address], 01/05/2025 08:24:25 01/04/20 25 01/05/2025 CBC WITH DIFFE RENTI AL/PL ATELE T immature granulocytes 1 % notest ab. Not Available [facility] ([facility]) [address] [place], [address], 01/05/2025 08:24:25 01/04/2001/05/2025 CBC WITH DIFFE RENTI AL/PL ATELE T immature grans (abs) 0.1 x10e3 /uL 0.0-0. 1 Not Available [facility] ([facility]) [address] [place], [address], 01/05/2025 08:24:25 01/04/20 25 01/05/2025 TRIIO DOTHY ARCELIA E (T3), FREE triiodothyro nine (T3), free 2.0 pg/mL 2.0-4. 4 Not Available [facility] ([facility]) [address] [place], [place], [id number], 01/05/2025 08:24:27 01/04/2001/05/2025 T4,FR EE(DI RECT) T4,free(dire ct) 1.14 NG/dL 0.82-1 .77 Not Available [facility] ([facility]) [address] [place], [address], 01/05/2025 08:24:28 10/08/20 24 10/08/2024 XR, chest , 2 view No observ ation record ed. [email or web address] [facility] [address], [place], [address], 10/08/2024 21:01:43 10/10/20 24 10/10/2024 XR, chest , 2 view No observ ation record ed. [address], [place], [address], 10/10/2024 20:32:46 02/15/20 25 02/14/2025 imagi ng/di agnos tic resul t No observ ation record ed. [address], [place], [address], 02/14/2025 14:28:35 02/15/20 25 02/14/2025 imagi ng/di agnos tic resul t No observ ation record ed. [address], [place], [address], 02/14/2025 14:29:40 Result Notes None recorded. Problems Name Problem SNOMED Code Status Onset Date Resolution Date Notes Provider Name and Address Organization Details Recorded Time Hypothyroidism 24704834 Active 2023 Dulce Hough MD Attn: Zuleyka hunter,[address] [facility], [place], [address], [place] - [facility] 4 15:09:04 Congestive heart failure 53388970 Active 2023 Mikki Arellano [place] null, [place] [facility] 4 15:43:21 Peripheral vascular disease 232588514 Active 2023 Mikki Arellano [place] null, [place] [facility] 4 15:43:22 Chronic kidney disease stage 3 226217646 Active 2023 Dulce Hough MD Attn: Zuleyka hunter,[address], [place], [address], [place] [facility] 4 13:31:06 Diabetes mellitus 55021581 Active 2023 Dulce Hough MD Attn: Zuleyka hunter,[address], [place], [address], [place] [facility] 4 08:12:59 Atrial fibrillation 35228050 Active 2023 Dulce Hough MD Attn: Zuleyka hunter[address], [place], [address], [facility] - [facility] 4 15:52:15 Essential hypertension 89418683 Active 2024 Mikki Arellano MA null, [place] - [facility] 5 12:28:01 Chronic diastolic heart failure 996626532 Active 2024 Dulce Hough MD Attn: Zuleyka hunter,[address] [facility], [place], [address], [facility] - [facility] 5 16:01:07 Problem Notes None recorded. Procedures Surgical History Date Name Laterality Status Provider Name and Address Organization Details Recorded Time Knee Surgery completed NELIDA Hummel [facility] 02/06/2024 16:28:35 Imaging Results Imaging Date Name Status LastModified by [facility] Details LastModified Time 10/08/2024 XR, chest, 2 [address] completed [address] [facility] [address], [place], [address], 10/08/2024 21:01:43 10/10/2024 XR, chest, 2 view completed [address] [place] [address], [address], 10/10/2024 20:32:46 02/14/2025 imaging/diag nostic result active [address] [place] [address], [address], 02/14/2025 14:28:35 02/14/2025 imaging/diag nostic result active [address] [place] [address], [address], 02/14/2025 14:29:40 Procedure Notes None recorded. Medical Equipment None Reported. Allergies No known drug allergies Medications Name Sig Start Date Stop Date Status Note LastModified by Organization Details LastModified Time metolazone 2.5 mg tablet TAKE 1 TABLET BY MOUTH EVERY MORNING 30 MINUTES BEFORE BUMETANI DE ON M/W/2024 active Not Available Not Available Not Avai lable doxycyclin e hyclate 100 mg capsule Take 1 capsule twice a day by oral route for 7 days. 2024 active Not Available Not Available Not Avai lable atorvastat in 10 mg tablet TAKE 1 TABLET BY MOUTH EVERY DAY 2024 active Not Available Not Available Not Avai lable amlodipine 2.5 mg tablet TAKE 1 TABLET BY MOUTH EVERY DAY 07/03 completed Not Available Not Available Not Available tramadol 50 mg tablet Take 1 tablet twice a day by oral route. active Not Available Not Available No t Available oxycodone- acetaminop hen 5 mg-325 mg tablet active Not Available Not Available Not Available famotidine 20 mg tablet TAKE 1 TABLET BY MOUTH EVERY DAY 2024 active Not Available Not Available Not Avai lable tamsulosin 0.4 mg capsule TAKE 1 CAPSULE BY MOUTH EVERY DAY 2024 active Not Available Not Available Not Avai lable OneTouch Ultra Test strips Take 1 strip 4 times a day by miscell. route, for to check sugars. active Not Available Not Available No t Available benzonatat e 100 mg capsule active Not Available Not Available Not Available levothyrox ine 50 mcg tablet TAKE 1 TABLET BY MOUTH EVERY DAY 2024 active Not Available Not Available Not Avai lable cephalexin 500 mg capsule 01/04 completed Not Available Not Available Not Available bumetanide 1 mg tablet Take 1 tablet twice a day by oral route. 2024 active Not Available Not Available Not Avai lable albuterol sulfate HFA 90 mcg/actuat ion aerosol inhaler INHALE 2 PUFFS BY MOUTH EVERY 4 HOURS 2024 active Not Available Not Available Not Avai lable metoprolol tartrate 25 mg tablet TAKE 1 TABLET BY MOUTH TWICE DAILY 10/03 completed Not Available Not Available Not Available Levemir FlexPen 100 unit/mL (3 mL) solution subcutaneo us insulin pen ADMINIST ER 25 UNITS UNDER THE SKIN TWICE DAILY 10/31 completed pt is on lantus now. Not Available Not Available Not Available Lantus Solostar U-100 Insulin 100 unit/mL (3 mL) subcutaneo us pen ADMINIST ER 25 UNITS UNDER THE SKIN TWICE DAILY 2024 active Not Available Not Available Not Avai lable Humalog KwikPen (U-100) Insulin 100 unit/mL subcutaneo us INJECT 10 UNITS UNDER THE SKIN WITH MEALS 2024 active Not Available Not Available Not Avai lable Eliquis 5 mg tablet active Not Available Not Available No t Available Dexcom G7 Sensor device CHANGE EVERY 10 DAYS 2024 active Not Available Not Available Not Avai lable Vitals Date Recorded Body height Heart rate Oxygen saturation Oxygen saturation in Arterial blood by Pulse oximetry Systolic blood pressure Diastolic blood pressure Provider Name and Address Organization Details Last Updated DateTime 4 182.88 cm 59 /min 97 % 97 % 126 mm[Hg] 78 mm[Hg] NELIDA Hummel [facility] 4 16:25:33 Date Recorded Body height Heart rate Oxygen saturation Oxygen saturation in Arterial blood by Pulse oximetry Systolic blood pressure Diastolic blood pressure Provider Name and Address Organization Details Last Updated DateTime 4 182.88 cm 69 /min 99 % 99 % 110 mm[Hg] 66 mm[Hg] Quynh Mckeon MA [facility] 4 14:40:21 Date Recorded Body height Heart rate Oxygen saturation Oxygen saturation in Arterial blood by Pulse oximetry Systolic blood pressure Diastolic blood pressure Provider Name and Address Organization Details Last Updated DateTime 4 182.88 cm 75 /min 98 % 98 % 108 mm[Hg] 70 mm[Hg] Praveen Bolaños MA [facility] 4 15:27:48 Date Recorded Body height Heart rate Oxygen saturation Oxygen saturation in Arterial blood by Pulse oximetry Systolic blood pressure Diastolic blood pressure Provider Name and Address Organization Details Last Updated DateTime 4 182.88 cm 70 /min 99 % 99 % 110 mm[Hg] 60 mm[Hg] Janet Rankin MA [facility] 4 14:22:23 Date Recorded Body height Heart rate Oxygen saturation Oxygen saturation in Arterial blood by Pulse oximetry Systolic blood pressure Diastolic blood pressure Provider Name and Address Organization Details Last Updated DateTime 5 182.88 cm 70 /min 99 % 99 % 112 mm[Hg] 72 mm[Hg] Bekah Morris MA [facility] 5 12:11:40 Social History Question Answer Notes LastModified by Organizat ion Details LastModified Time Tobacco Smoking Status Never Smoker Quyen Louis, A null, [place] - [facility] 02/06/2024 16:28:25 What Is Your Level Of Alcohol Consumption? None Information not available 07/03/2024 Are You Blind Or Do You Have Difficulty Seeing? Yes Information not available 07/03/2024 What Is Your Level Of Caffeine Consumption? None Hot Rosanna Information not available 07/03/2024 In The 14 Days Before Symptom Onset, Have You Had Close Contact With A Laboratory-confir med COVID-19 While That Case Was Ill? No Information not available 01/04/2025 In The 14 Days Before Symptom Onset, Have You Had Close Contact With A Person Who Is Under Investigation For COVID-19 While That Person Was Ill? No Information not available 01/04/2025 Have You Been To An Area Known To Be High Risk For COVID-19? No Information not available 01/04/2025 Are You Deaf Or Do You Have Serious Difficulty Hearing? No Information not available 07/03/2024 What Type Of Diet Are You Following? REGULAR Information not available 07/03/2024 What Was The Date Of Your Most Recent Tobacco Screening? 01/04/2025 Non Smoker Information not available 01/04/2025 What Is Your Relationship Status? Information not available 07/03/2024 Do You Use Your Seat Belt Or Car Seat Routinely? Yes Information not available 07/03/2024 Do You Have Smoke And Carbon Monoxide Detectors In Your Home? Yes Information not available 07/03/2024 Do You Feel Stressed (tense, Restless, Nervous, Or Anxious, Or Unable To Sleep At Night)? [id number] Information not available 07/03/2024 Do You Use Any Illicit Or Recreational Drugs? No Information not available 07/03/2024 Has Tobacco Cessation Counseling Been Provided? No Information not available 07/03/2024 Do You Or Have You Ever Used Any Other Forms Of Tobacco Or Nicotine? No Information not available 07/03/2024 Sex: Male Functional Status Question Answer Note LastModified by Organization D etails LastModified Time Are you able to care for yourself? Yes Information n ot available 07/03/2024 What is your exercise level? None Information not available 07/03/2024 Mental Status None recorded. Family History Relationship Description Onset Age of this Age Resolved Age Notes LastModified by Organization Details LastModified Time Father Malignant tumor of lung [email or web address] Not available 01/19 16:29:11 Father Heart disease [email or web address] Not available 01/19 16:29:17 Father Hypertensive disorder [email or web address] Not available 01/19 16:29:25 Father Diabetes mellitus [email or web address] Not available 01/19 16:29:33 Medical History Condition Response Diabetes Y High Blood Pressure Y Headaches Y Kidney or Bladder Problems Y Immunizations Vaccine Type Date Status Note Provider Nam e and Address Organization Details Recorded Time Influenza, high-dose, quadrivalent, PF 3 completed Louann harden, [place] - [facility] 05/31/2024 13:54:32 Td (adult), 2 Lf tetanus toxoid, preservative free, adsorbed 2 completed Louann harden, [place] - [facility] 05/31/2024 13:54:32 Influenza, high-dose, trivalent, PF 4 completed Dulce Hough MD Attn: Accounting[address] [place], [address], [place] [facility] 10/14/2024 15:48:54 Pneumococcal conjugate PCV20, polysaccharide QQY660 conjugate, adjuvant, PF 5 completed Dulce Hough MD Attn: Accounting[address] [place], [address], [place] [facility] 01/05/2025 15:59:40 Influenza, high-dose, trivalent, PF 5 completed Dulce Hough MD Attn: Accounting[address] [place], [address], [place] [facility] 01/05/2025 15:59:40 Past Encounters Encounter ID Performer Location Encounter Start Date Encounter Closed Date Diagnosis/Indication Diagnosis SNOMED-CT Code Diagnosis ICD10 Code Diagnosis Note [id number] MD Raul Edouard (Adult Med) [address] [place] [phone] 02/06/2024 15:12:48 02/06/2024 16:38:30 Type 2 diabetes mellitus 30900905 E11.9 Peripheral arterial occlusive disease 209610131 I73.9 Neuropathy 621775915 G62 .9 Obesity 891270865 E66.9 Hyperlipidemia 53394062 E78.5 Chronic di astolic heart failure 233137630 I50.32 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 720515088 E11.319 Hypothyroidism 32376707 E03.9 [id number] MD Raul Edouard (Adult Med) [address] [place] [id number] 04/03/2024 14:28:15 04/03/2024 15:51:52 Congestive heart failure 46968400 I50.9 Peripheral vascular disease 605937554 I73.9 Hypothyroidism 99968668 E03.9 Type 2 carlos betes mellitus 82416870 E11.9 Chronic di astolic heart failure 987216112 I50.32 Chronic ki dney disease stage 3 263991988 N18.30 [id number] MD Raul Edouard (Adult Med) [address] [place] [id number] 07/03/2024 15:03:59 07/03/2024 16:25:48 Type 2 diabetes mellitus without complication 926556061 E11.9 Essential hypertension 20053246 I10 Hyperlipidemia 79599290 E78.5 Hypothyroidism 44368479 E03.9 Diabetes mellitus 628639 09 E13.42 [id number] MD Raul Edouard (Adult Med) [address] [place] [id number] 10/03/2024 14:10:53 10/03/2024 14:43:45 Administration of influenza vaccine 05051587 Z23 Diabetes mellitus 428063 09 E13.42 Congestive heart failure 89786995 I50.9 Hypothyroidism 13141910 E03.9 Atrial fibrillation 4943 6004 I48.91 [id number] MD Raul Edouard (Adult Med) [address] [place] [id number] 01/04/2025 11:58:51 01/04/2025 12:50:28 Diabetes mellitus 69341025 E13.42 Hypothyroidism 56381083 E03.9 Obesity 962641188 E66.9 Essential hypertension 55146603 I10 Abnormal gait 64654202 R 26.9 Administra tion of pneumococcal vaccine 42674540 Z23 Administra tion of influenza vaccine 40704788 Z23 Atrial fibrillation 4943 6004 I48.91 Chronic di astolic heart failure 344443273 I50.32 Health Concerns Section Related Observation LastModified by Organization Detai ls LastModified Time None Recorded Concern Status LastModified by Organization Details LastModified Time None Recorded Advance Directives Directive None Recorded Payers Encounter Date Sequence Insurance Name Policy Number Policy Mccrary Covered Member ID Mccrary Member ID Guarantor Name 02/06/2024 1 [facility] (MEDICARE REPLACEMENT/A DVANTAGE - HMO) [id number] Gildardo Kat [id number] Gildardo Kat 04/03/2024 1 [facility] (MEDICARE REPLACEMENT/A DVANTAGE - HMO) [id number] Gildardo Kat [id number] Gildardo Kat 07/03/2024 1 [facility] (MEDICARE REPLACEMENT/A DVANTAGE - HMO) [id number] Gildardo Kat [id number] Gildardo Kat 10/03/2024 1 [facility] (MEDICARE REPLACEMENT/A DVANTAGE - HMO) [id number] Gildardo Kat [id number] Gidlardo Kat 01/04/2025 1 [facility] (MEDICARE REPLACEMENT/A DVANTAGE - HMO) [id number] Gildardo Kat [id number] Gildardo Kat Notes Date Note Type Note Provider Name and Address Organization Details Recorded Time 02/06/2024 text/html When seen in the office today 5.8 no polyphasia no polydipsia. Neuropathy tramadol help obesity cannot lose weight hyperlipidemia not on a statin chronic diastolic heart failure appears stable hypothyroidism taking levothyroxine no heat or cold intolerance diabetic retinopathy follows with eye doctor Dulce Hough MD Attn: Accounting,[address] [facility], [place], [address], [place] [facility] 02/19/2024 15:11:34 04/03/2024 text/html Here for follow- up of his medical problems diabetes BG's been okay he still needs to see cardiology having trouble mobilizing fluid hypothyroid he is always tired diabetes no polyphagia polydipsia Dulce Hough MD Attn: Accounting, [address] [facility], [place], [address], [place] - [facility] 04/29/2024 13:31:25 07/03/2024 text/html diabetes does no t take sugars or polyphagia polydipsia eats a lot of chips and processed food hypertension no headache or dizziness hyperlipidemia eats whatever he wants he is going to physical therapy or has neuropathy. He quit taking his insulin for no good reason Dulce Hough MD Attn: Accounting, [address] [facility], [place], [address], [facility] 07/06/2024 08:14:27 10/03/2024 text/html diabetes not any polyphagia or polydipsia. Hypothyroid energy level up and down depending upon the day. But no heat or cold intolerance. CKD stage 3 he has not had any new edema there has not been any other complaints. Interval history he had cough and congestion went to the emergency room was diagnosed with a viral etiology for his cough was given some Tessalon Perles he still has a little bit of cough but there has not been any fever. Dulce Hough MD Attn: Accounting, [address] [facility], [place], [address], [facility] - [facility] 10/14/2024 15:53:02 01/04/2025 text/html here for follow up of his multiple problems diabetes needs an A1c but his sugars have been around 130-140 is what his says who is in attendance hypothyroid needs to have that checked obesity trouble losing weight hypertension no headache or dizziness still has problems getting up moving around because of neuropathy he did have a pacemaker in the interval history patient does have some chronic diastolic heart failure and it is just very hard for him to get up and around they were going to do some physical therapy there was some mixup I think with Cardiology nonetheless he still needs to get up about any needs some therapy to help with gait and overall deconditioning. Atrial fibrillation no palpitations or dizziness uDlce Hough MD Attn: Accounting, [address] [facility], [place], [address], [place] [facility] 01/05/2025 16:03:26
--- OUTSIDE RECORDS SUMMARY | 2025-02-14 13:47 | XMS_ITS | CONTINUITY OF CARE DOCUMENT ---
Author Name galileo, galileo Address Unknown Organization [facility] Address [address] [place] [address] Phone [phone] Care Team Providers Care Flight Agent Name Role Phone Noel Bañuelos MD Unavailable DULCE CASEY MD Unavailable DULCE CASEY MD Unavailable [phone] PROBLEMS Condition Status Date Provider Notes S/P Dual chamb PCM - Biotron ik ( MRI Safe) active Lacey Fonseca Cardiology examination active Noel Bañuelos MD Diabetes, Type 2 active Noel Bañuelos MD CKD active Noel Bañuelos MD Peripheral artery disease active Noel acosta MD Hyperlipidemia active Noel Bañuelos MD Diastolic CHF active Noel Bañuelos MD Hypothyroidism active Nole Bañuelos MD Atrial fibrillation active 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 Bradycardia active Noel Bañuelos MD Sick sinus syndrome active Noel Bañuelos MD ENCOUNTERS Date Type Provider Location Encounter Diag nosis - In-person encounter Office Visit Yoon Bailey MD [facility] - In-person encounter Office Visit Noel Bañuelos MD [facility] BradycardiaSick sinus syndrome - In-person encounter Office Visit Noel Bañuelos MD [facility] - In-person encounter Office Visit Noel Bañuelos MD [facility] Atrial fibrillation - In-person encounter Office Visit Noel Bañuelos MD [facility] Cardiology examinationDiabetes, Type 2CKDPeripheral artery diseaseHyperlipidemiaDiastolic CHFHypothyroidism VITAL SIGNS Date Observation Value Provider blood pressure, diastolic 78 mm[Hg] [facility] systolic 153 mm[Hg] Joelle garner Shannon oxygen saturation, oximetry 97 % [facility] 61 /min [facility] respiratory rate E&M 14 /min [facility] height E&M 73 [in_i] Verenice Shannon blood pressure, cuff size regular An pedrito Shannon Body Mass Index (Ratio) 39.18 kg/m2 Curry Bañuelos MD blood pressure, diastolic 60 mm[Hg] April gonzalez [facility] blood pressure, systolic 106 mm[Hg] Susy bergeron [facility] oxygen saturation, oximetry 99 % Kimberley [facility] pulse rate 62 /min Kimberley [facility] blood pressure, cuff size regular April yla [facility] weight E&M 297 [lb_av] Kimberley [facility] height E&M 73 [in_i] Kimberley [facility] Body Mass Index (Ratio) 36.94 kg/m2 Feliciano Hirsch blood pressure, cuff size regular Ol ivia Hartman blood pressure, diastolic 82 mm[Hg] Ol ivia Hartman blood pressure, systolic 140 mm[Hg] James via Hartman oxygen saturation, oximetry 97 % Eda Hartman respiratory rate E&M 12 /min Eda Hartman pulse rate 80 /min Eda Hartman weight E&M 280 [lb_av] Eda Hartman height E&M 73 [in_i] Eda Hartman Body Mass Index (Ratio) 35.62 kg/m2 Curry Bañuelos MD blood pressure, diastolic 84 mm[Hg] Soledad herbertLog blood pressure, systolic 124 mm[Hg] Evon [facility] blood pressure, cuff size regular [place] river Richard blood pressure, diastolic 84 mm[Hg] Ta perico Richard blood pressure, systolic 124 mm[Hg] Tab lolisa Richard oxygen saturation, oximetry 97 % Melania Richard pulse rate 99 /min Melania Richard weight E&M 270 [lb_av] Melania Richard respiratory rate E&M 12 /min Melania Richard height E&M 73 [in_i] Melania Richard blood pressure, diastolic 85 mm[Hg] Soledad herbertLog blood pressure, systolic 149 mm[Hg] Evon [facility] blood pressure, cuff size regular rret blood pressure, diastolic 85 mm[Hg] Ja rret blood pressure, systolic 149 mm[Hg] Jar ret pulse rate 55 /min Margarito er y height E&M 73 [in_i] Margarito er y oxygen saturation, oximetry 99 % Margarito respiratory rate E&M 14 /min Margarito ALLERGIES No Known Drug Allergies HISTORY OF MEDICATION USE Medication Status Instructions Dates Provider Indications Com ments cephalexin 500 mg capsule active 1 capsule by mouth twice a day for 5 days Yoon Bailey MD Percocet 5-325 mg tablet active Take 1/2 tablet by mouth three times a day as needed for pain for 5 days Yoon Bailey MD Eliquis 5 mg tablet active Take 1 tablet by mouth twice a day Citlaly Ferrell Levemir FlexPen 100 unit/mL (3 mL) insulin pen active Kady Ventimiglia BLOW MOLDING MACHINE TENDER Humalog KwikPen Insulin 100 unit/mL insulin pen active Kady Ventimiglia BLOW MOLDING MACHINE TENDER atorvastatin 10 mg tablet active Noel Bañuelos MD albuterol sulfate 90 mcg/actuation HFA aerosol inhaler active Inhale 2 puff using inhaler every six hours Margarito bumetanide 1 mg tablet active Take 1 tablet by mouth twice a day levothyroxine 50 mcg tablet active Take 1 tablet by mouth once a day tamsulosin 0.4 mg capsule active TAKE 1 CAPSULE BY MOUTH DAILY Margarito famotidine 20 mg tablet active TAKE 1 TABLET BY MOUTH EVERY DAY metolazone 2.5 mg tablet active TAKE 1 TABLET ON Tuesday AND TUESDAY Margarito SOCIAL HISTORY Date Observation Value Provider personal history of marijuana use no Kady Ventimiglia [facility] drug use no Kady Ventimig mame [facility] alcohol use no Kady Ventimig mame [facility] smoking status Never smoker Kady Niurkam iglia [facility] personal history of marijuana use no Kady Ventimiglia [facility] drug use no Kady Ventimig mame [facility] alcohol use no Kady Ventimig mame [facility] smoking status Never smoker Noel Bañuelos MD smoking status Never smoker INSURANCE PROVIDERS Payer name Policy type / Coverage type [place] [employer] party ID [facility] GRP MEDICARE ADVANTAGE PLAN (PPO) Medicare [id number] ADVANCE DIRECTIVES Name Date DISCUSSED - NO DECISION MADE TREATMENT PLAN Date Name Performer Cardiology:s/p dual chamber ppm implant Yoon Bailey MD Cardiology:On Eliquis for OAC Vicente Bailey MD Cardiology:s/p dual chamber ppm implant Yoon Bailey MD Cardiology: A ppears compensated Yoon Bailey MD Cardiology: H is updated medication list for this problem includes: Levemir Flexpen 100 Unit/ml (3 Ml) Insulin Pen (Insulin detemir u-100) Humalog Kwikpen Insulin 100 Unit/ml Insulin Pen (Insulin lispro) Yoon Bailey MD Cardiology Noel Bañuelos MD Cardiology:Stable. C ontinue medical therapy. Noel Bañuelos MD Cardiology:Appears compensated U claire Bañuelos MD Cardiology: H is updated medication list for this problem includes: Levemir Flexpen 100 Unit/ml (3 Ml) Insulin Pen (Insulin detemir u-100) Humalog Kwikpen Insulin 100 Unit/ml Insulin Pen (Insulin lispro) Noel Bañuelos MD Cardiology:plan for PPM Noel romero MD Cardiology:S/p DCCV to SR, he states that he has been feeling better since his procedure. In a regular rhythm today T his visit has been a part of the consistent, comprehensive, and ongoing management of the chronic medical condition(s) listed above for the patient. c ontinue current meds u nable to tolerate BB due to bradycardia Noel Bañuelos MD Cardiology:Will arra nge for DC ppm with Dr. ariana Villalba stopped Noel Bañuelos MD Cardiology: H is updated medication list for this problem includes: Atorvastatin 10 Mg Tablet (Atorvastatin) Kady Samson [facility] Cardiology: H is updated medication list for this problem includes: Bumetanide 1 Mg Tablet (Bumetanide) ..... Take 1 tablet by mouth twice a day Metolazone 2.5 Mg Tablet (Metolazone) ..... Take 1 tablet on tuesday and tuesday Metoprolol Tartrate 25 Mg Tablet (Metoprolol tartrate) ..... Take 1 tablet by mouth twice a [facility]ound hea ling c ontinue wound care [facility] Cardiology: H is updated medication list for this problem includes: Levothyroxine 50 Mcg Tablet (Levothyroxine) ..... Take 1 tablet by mouth once a day [facility] Cardiology:remains i n atrial fibrillation on exam today. H is tele monitor showed atrial flutter with max HR of 108 and minimum of 53 and average 69 R emains on BB O n Eliquis for AC and tolerating well H is updated medication list for this problem includes: Metoprolol Tartrate 25 Mg Tablet (Metoprolol tartrate) ..... Take 1 tablet by mouth twice a day [facility] Cardiology:noted to have irregular rhythm on exam today E KG done revealing afib r ate is controlled on BB W ill begin Eliquis 5 mg BID r isk and benefits of medication discussed with patient and understanding verbalized. Noel Bañuelos MD Cardiology:on replac ement therapy H is updated medication list for this problem includes: Levothyroxine 50 Mcg Tablet (Levothyroxine) ..... Take 1 tablet by mouth once a day [facility]no new le g pain or ulcerations c ontinue present meds [facility] Cardiology:will get updated labs from PCP H is updated medication list for this problem includes: Atorvastatin 10 Mg Tablet (Atorvastatin) [facility] Cardiology:patient h as no new SOB or worsening edema B P well controlled c ontinue present meds H is updated medication list for this problem includes: Bumetanide 1 Mg Tablet (Bumetanide) ..... Take 1 tablet by mouth twice a day Metolazone 2.5 Mg Tablet (Metolazone) ..... Take 1 tablet on tuesday and tuesday Metoprolol Tartrate 25 Mg Tablet (Metoprolol tartrate) ..... Take 1 tablet by mouth twice a day Kady Katzkelly BLOW MOLDING MACHINE TENDER Cardiology:per PCP Noel Bañuelos MD Cardiology:The patie nt is on a statin for pimary prevention and management of cardiovascular disease. H is updated medication list for this problem includes: Atorvastatin 10 Mg Tablet (Atorvastatin) Noel Bañuelos MD Cardiology:appears c ompensated, needs physical therapy in order to mobilize him Noel Bañuelos MD Cardiology:s/p succe sful atherectomy and baloon angioplasty of the R PT with good flow N eeds physical therapy to mobilize him. Noel Bañuelos MD Date Name X-Ray, Chest, PA & L ateral X-Ray, Chest 2 View PARTIAL THROMBOPLAST IN TIME, ACTIVATED URINALYSIS, COMPLETE W/REFLEX TO CULTURE COMPREHENSIVE METABO LIC PANEL W/EGFR PROTHROMBIN TIME WIT H INR CBC (INCLUDES DIFF/P LT) PROTHROMBIN TIME WIT H INR BASIC METABOLIC PANE L W/EGFR MAGNESIUM Holter Monitor 48 hr EKG HISTORY OF PROCEDURES Procedure Date Procedure Name Provider Procedure Notes S tatus EKG Yoon Bailey MD complet ed EKG Noel Bañuelos MD completed
--- OUTSIDE RECORDS SUMMARY | 2025-02-14 13:47 | XMS_ITS | Continuity of Care Document ---
Author Organization [facility] Address [address] [place] [address] Phone Care Team Providers Care Central Processing Technician Name Role Phone Rochelle Parker Unavailable Unavailable Advance Directives Directive Yes / No Effective Date File Name No Information Encounters Encounter Description Practice Location Reason(s) For Visit Diagnoses Date Provider Providers Copied on Encounter [facility], [address], [place], [place], [id number], [place] tel:[phone] [facility] No Information Elena Byrd. [address], [place], [address], [place]. tel:[phone] Family History Family Member Type Diagnosis Age At Onset No Information Payers Payer name Insurance type Covered republican ID Authoriza hernan(s) [facility] Commercial CI [id number] Social History Type Description Quantity Date Captured Comments Sex Male Smoking Status No Information Chief Complaint And Reason For Visit No Information Reason For Referral Reason For Referral No Information History Of Present Illness Encounter Date Complaint History Of Prese nt Illness No Information Functional Status Date Functional Assessmen t No Information Instructions Date Instruction Additional Infor mation No Information Assessments Type Assessment Date No Information Patient Care Teams Name Effective Dates (start - stop) Status Members No Information
[2025-02-14] MEDS: metroNIDAZOLE 500 MG/ISO 100ML 500 MG/100 ML BAG 100 MG IVPB ×2 (13:53→18:07)
[2025-02-14 14:11] LABS: Lactic Acid Reflex 1.4 mmol/L (0.7-2.0)
[2025-02-14] MEDS: ACETAMINOPHEN 325 MG TABLET 650 MG PO (14:30)
--- NOTE | 2025-02-14 14:58 | ADMGEN ---
This patient, Gildardo Kat, was admitted to -. Patient/family oriented to hospital policies and general routines including ID bracelet, bed and alarms, visiting hours, pain management, procedures, bathroom and other care routines, personal items, smoking policy, room service/diet, and visiting hours. Information on how to activate the Rapid Response Team has been discussed. Patient/Family are encouraged to report perceived risks to care and to ask questions if they do not understand what they are told or what they should do.
[2025-02-14] MEDS: VANCOMYCIN 1,250 MG/NS 250 ML 1,250 MG/250 ML BAG 166.67 MG IVPB ×2 (15:33→17:29)
--- OUTSIDE RECORDS SUMMARY | 2025-02-14 15:54 | XMS_ITS | Continuity of Care Document ---
Author Organization [facility] Address [address] [place] [address] Phone Care Team Providers Care Visual Stylist Name Role Phone Rochelle Parker Unavailable Unavailable Advance Directives Directive Yes / No Effective Date File Name No Information Encounters Encounter Description Practice Location Reason(s) For Visit Diagnoses Date Provider Providers Copied on Encounter [facility], [address], [place], [place], [id number], [place] tel:[phone] [facility] No Information Elena Byrd. [address], [place], [address], [place]. tel:[phone] Family History Family Member Type Diagnosis Age At Onset No Information Payers Payer name Insurance type Covered democrat ID Authoriza hernan(s) [facility] Commercial CI [id number] Social History Type Description Quantity Date Captured [...]
--- OUTSIDE RECORDS SUMMARY | 2025-02-14 15:54 | XMS_ITS | CONTINUITY OF CARE DOCUMENT ---
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 Lacey Fonseca Cardiology examination active Noel Bañuelos MD Diabetes, Type 2 active Noel Bañuelos MD CKD active Noel Bañuelos MD Peripheral artery disease active Noel acosta MD Hyperlipidemia active Noel Bañuelos MD Diastolic CHF active Noel Bañuelos MD Hypothyroidism active Noel Bañuelos MD Atrial fibrillation active Kady Ventimigl ia MANPOWER DEVELOPMENT SPECIALIST MANAGER Bradycardia active Noel Bañuelos MD Sick sinus syndrome active Noel Bañuelos MD ENCOUNTERS Date Type Provider Location Encounter Diag nosis - In-person encounter Office Visit Yoon Bailey MD [facility] - In-person encounter Office Visit Noel Bañuelos MD [facility] BradycardiaSick sinus syndrome - In-person encounter Office Visit Noel Bañuelos MD [facility] - In-person encounter Office Visit Noel Bañuelos MD [facility] Atrial fibrillation - In-person encounter Office Visit Noel Bañuelos MD [facility] Cardiology examinationDiabetes, Type 2CKDPeripheral artery diseaseHyperlipidemiaDiastolic CHFHypothyroidism VITAL SIGNS Date Observation Value Provider blood pressure, diastolic 78 mm[Hg] [facility], systolic 153 mm[Hg] Joelle garner Shannon oxygen saturation, oximetry 97 % [facility] pulse rate 61 /min [facility] respiratory rate E&M 14 /min [facility] height E&M 73 [in_i] Verenice Shannon blood pressure, cuff size regular An pedrito Shannon Body Mass Index (Ratio) 39.18 kg/m2 Curry Bañuelos MD blood pressure, diastolic 60 mm[Hg] April gonzalez [facility] blood pressure, systolic 106 mm[Hg] Susy [facility]on [facility], oximetry 99 % Kimberley [facility] pulse rate 62 /min Kimberley [facility] blood pressure, cuff size regular April yla [facility] weight E&M 297 [lb_av] Kimberley [facility] height E&M 73 [in_i] Kimberley [facility] Body Mass Index (Ratio) 36.94 kg/m2 Feliciano Hirsch blood pressure, cuff size regular Ol ivia Hartman blood pressure, diastolic 82 mm[Hg] Ol ivia Hartman blood pressure, systolic 140 mm[Hg] James via Hartman oxygen saturation, oximetry 97 % Eda Hartman respiratory rate E&M 12 /min Eda Hartman pulse rate 80 /min Eda Hartman weight E&M 280 [lb_av] Eda Hartman height E&M 73 [in_i] Eda Harmtan Body Mass Index (Ratio) 35.62 kg/m2 Curry Bañuelos MD blood pressure, diastolic 84 mm[Hg] Soledad herbertLog blood pressure, systolic 124 mm[Hg] Evon [facility] blood pressure, cuff size regular [...] herbertLog blood pressure, systolic 149 mm[Hg] Evon [facility] blood pressure, cuff size regular [...] (3 mL) insulin pen active Kady Ventimiglia MANPOWER DEVELOPMENT SPECIALIST MANAGER Humalog KwikPen Insulin 100 unit/mL insulin pen active Kady Ventimiglia MANPOWER DEVELOPMENT SPECIALIST MANAGER atorvastatin 10 mg tablet active Noel Bañuelos [...] history of marijuana use no Kady Ventimiglia [facility] drug use no Kady Ventimig mame [facility] alcohol use no Kady Ventimig mame [facility] smoking status Never smoker Kady Niurkam iglia [facility] personal history of marijuana use no Kady Ventimiglia [facility] drug use no Kady Ventimig mame [facility] alcohol use no Kady Ventimig mame [facility] smoking status Never smoker Noel Bañuelos MD smoking status Never smoker INSURANCE PROVIDERS Payer name Policy type / Coverage type [place] red constitution party ID [facility] GRP MEDICARE ADVANTAGE PLAN (PPO) Medicare [id number] ADVANCE DIRECTIVES Name Date DISCUSSED - NO [...] Atorvastatin 10 Mg Tablet (Atorvastatin) Kady Samson [facility] Cardiology: H is updated medication list for this problem includes: Bumetanide 1 Mg Tablet (Bumetanide) ..... Take 1 tablet by mouth twice a day Metolazone 2.5 Mg Tablet (Metolazone) ..... Take 1 tablet on tuesday and tuesday Metoprolol Tartrate 25 Mg Tablet (Metoprolol tartrate) ..... Take 1 tablet by mouth twice a [facility]:wound hea ling c ontinue wound care [facility] Cardiology: H is updated medication list for this problem includes: Levothyroxine 50 Mcg Tablet (Levothyroxine) ..... Take 1 tablet by mouth once a day [facility] Cardiology:remains i n atrial fibrillation on exam [...] 1 tablet by mouth twice a day [facility] Cardiology:noted to have irregular rhythm on exam [...] 1 tablet by mouth once a day [facility] 1.[facility]:no new le g pain or ulcerations c ontinue present meds [facility] Cardiology:will get updated labs from PCP H is updated medication list for this problem includes: Atorvastatin 10 Mg Tablet (Atorvastatin) [facility] Cardiology:patient h as no new SOB or [...] by mouth twice a day Kady Katzkelly MANPOWER DEVELOPMENT SPECIALIST MANAGER Cardiology:per PCP Noel Bañuelos MD Cardiology:The patie [...]
--- OUTSIDE RECORDS SUMMARY | 2025-02-14 15:54 | XMS_ITS | Data Portability ---
Author Organization [place] [address] [facility], Main Office Address [address] [place] [address] Assessment Encounter Date Assessment Date Assessment LastModified by Organization Details LastModified Time 05/29/2024 05/29/2024 This note is dictated and transcribed by [employer]-Note Software. Frameman variances may occur. Despite proofreading, typographical errors may occur. Occasional wrong-word or 'cpwhj-i-rcoa' substitutions may have occurred due to the inherent limitations of voice recording. Read the chart carefully and recognize, using context, where substitutions have occurred. Not available 06/07/2024 09:53:59 06/06/2024 06/06/2024 This note is dictated and transcribed by [employer]-Note [employer]. Frameman variances may occur. Despite proofreading, typographical errors may occur. Occasional wrong-word or 'mdbey-n-bxel' substitutions may have occurred due to the inherent limitations of voice recording. Read the chart carefully and recognize, using context, where substitutions have occurred. Not available 06/07/2024 09:50:47 08/28/2024 08/28/2024 This note is dictated and transcribed by [employer]. Frameman variances may occur. Despite proofreading, typographical errors may occur. Occasional wrong-word or 'obkfx-r-tadp' substitutions may have occurred due to the inherent limitations of voice recording. Read the chart carefully and recognize, using context, where substitutions have occurred. Not available 08/28/2024 16:09:23 02/13/2025 02/13/2025 This note is dictated and transcribed by C-Note Software. Frameman variances may occur. Despite proofreading, typographical errors may occur. Occasional wrong-word or 'qmtza-n-fmkf' substitutions may have occurred due to the inherent limitations of voice recording. Read the chart carefully and recognize, using context, where substitutions have occurred. Not available 02/13/2025 16:36:52 Plan of Treatment Reminders Order Date Submit Date Provider Last Modified By Organization Details Last Modified Time Details Appointments None record ed. Lab None record ed. Referral None record ed. Procedures None record ed. Surgeries None record ed. Imaging None record ed. Medication Orders None record ed. Patient TargetsNo targets recorded. Patient Instructions Encounter Date Encounter Id Patient Instructions Last Modified By Organization Details Last Modified Time 04/02/2024 [id number] 1. Will increase Metolazone from 2.5 to 5 mg daily for now 2. Follow up in 4 weeks with repeat a BMP for BUN/Creat level 3. Will DC Amlodipine anyway 4. Buy KHURRAM hose knee high to use all day and off at night [email or web address] Not available 04/02/2024 12:37:37 Reason for Referral None Reported. Results Created Date Observation Date Name Description Value Unit Range Abnormal Flag Note LastModifiedBy Organization Detail LastModifiedTime 04/02/20 24 02/08/2024 rhyth m strip , EKG* No observ ation record ed. [email or web address] Not Available 2023 11:57:42 Result Notes None recorded. Problems Name Problem SNOMED Code Status Onset Date Resolution Date Notes Provider Name and Address Organization Details Recorded Time Edema of lower extremity 450435739 Active 2022 Not Available [facility] 4 22:46:30 Renewal of prescript ion Active 2021 Not Available [facility] 4 22:46:30 Acute kidney injury 35313951 Active Not Available [facility] 4 22:46:30 Standard chest X-ray abnormal 277735618 Active 2021 Not Available [facility] 4 22:46:30 Neuropath y due to diabetes mellitus 297054579 Active 2021 Not Available [facility] 4 22:46:30 Pneumonia 786658900 Active 2021 Not Available [facility] 4 22:46:30 Edema 981839877 Active 2021 Not Available [facility] 4 22:46:30 Swelling of scrotum 722266204 Completed Not Available [facility] 3 05:56:42 Celluliti s of finger 20108554 Completed Not Available [facility] 3 05:56:42 Abscess of scrotum 70535953 Completed Not Available [facility] 3 05:56:42 Low back pain 698542416 Active 2021 Not Available [facility] 4 22:46:30 Dog bite of hand 132094137 Active 2021 Not Available [facility] 4 22:46:30 Type 2 diabetes mellitus without complicat ion 893428022 Active Not Available [facility] 4 22:46:30 Bronchiti s 70643394 Active 2021 Not Available [facility] 4 22:46:30 Celluliti s of scrotum 65893544 Completed Not Available [facility] 3 05:56:43 Dyslipide quan 892259573 Active Not Available [facility] 4 22:46:30 Migraine 64005486 Active 2021 Not Available [facility] 4 22:46:30 Osteoarth ritis 316536717 Active Not Available [facility] 4 22:46:30 Obesity 719472408 Active Not Available [facility] 4 22:46:30 Diabetic periphera l neuropath y 344658383 Active 2021 Not Available [facility] 4 22:46:30 Chronic diastolic heart failure 785190099 Active 2021 Not Available [facility] 4 22:46:30 Screening for malignant neoplasm of prostate Active 2021 Not Available [facility] 4 22:46:31 Dysuria 40164883 Completed Not Available [facility] 3 05:56:43 Cough 35907580 Active 2021 Not Available [facility] 4 22:46:31 Upper respirato ry infection 27603777 Active 2021 Not Available [facility] 4 22:46:31 Acute upper respirato ry infection 40562089 Active 2021 Not Available [facility] 4 22:46:31 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 3 17:44:13 Hyperglyc emia 51019553 Active Not Available [facility] 4 22:46:31 Neck pain 70515142 Active 2021 Not Available [facility] 4 22:46:31 COVID-19 960144728 Active 2021 Not Available [facility] 4 22:46:31 Hyperlipi demia 91895886 Active 2022 Not Available [facility] 4 22:46:31 Chronic ulcer of heel 98208289753 258643 Active 2022 Not Available [facility] 4 22:46:30 Periphera l arterial occlusive disease 027322914 Active 2022 Not Available [facility] 4 22:46:30 Open wound of right foot 11091031165 944144 Active 2022 Not Available [facility] 4 22:46:30 Neuropath y 551489799 Active 2022 Not Available [facility] 4 22:46:30 Diabetes mellitus 36976322 Active 2022 Not Available [facility] 4 22:46:31 Open wound of right lower leg 41107582330 625138 Active 2023 Not Available [facility] 4 22:46:30 Periphera l vascular disease 258220713 Active 2023 Daniel Roland, DPTigist [address] [facility], [facility] [address], [place], [address] , [facility] 4 14:54:34 Dystrophi a unguium 69077254 Active 2023 Daniel Roland DPM [address], [address], [place], [address] , [facility] 4 14:56:34 Ulcer of toe 328295276 Active 2023 Daniel Roland DPM [address], [address], [place], [address] , [facility] 4 14:56:46 Ulcer of lower extremity 97628996 Active 2023 Daniel Roland DPM [address], [address], [place], [address] , [facility] 4 14:57:07 Lymphedem a of lower extremity 956184500 Active 2023 Daniel Roland DPM [address], [address], [place], [address] , [facility] 4 14:57:13 Abrasion of skin of lower limb 671877753 Active 2023 Daniel Roland DPM [address], [address], [place], [address] , [facility] 4 09:50:50 Ulcer of lower extremity 72049820 Active 2023 Daniel Roland DPM [address], [address], [place], [address] , [facility] 4 09:51:13 Ulcer of right foot due to type 2 diabetes mellitus 76970434002 814006 Active 2024 Daniel Roland DPM [address], [address], [place], [address] , [facility] 5 16:44:59 Ulcer of left foot due to type 2 diabetes mellitus 67902286550 795021 Active 2024 Daniel Roland DPM [address], [address], [place], [address] , [facility] [address] [facility] 16:45:04 Lymphedem a of bilateral lower limbs 77693603697 009806 Active 2024 Daniel Roland DPM [address], [address], [place], [address] , [facility] [address] [facility] 16:45:55 Notes:Some problems listed i n Documents: #[id number], #[id number] could not be added to this patient's chart. Please review these documents and add these problems to the patient's chart manually as needed. Problem Notes None recorded. Procedures Surgical History Date Name Laterality Status Provider Name and Address Organization Details Recorded Time 02/14/20 25 Wound Care-Podiatry completed Guerline Humphreys RN [facility] [address] [facility] 02/13/2025 16:29:00 08/28/20 24 Nail Debridement completed Daniel Roland DPM [address], [address], [place], [address], [facility] [address] [facility] 08/28/2024 16:07:22 06/06/20 24 Wound Care-Podiatry completed Guerline Humphreys RN [facility] [address] [facility] 06/06/2024 16:31:33 05/29/20 24 Nail Debridement completed Daniel Roland DPM [address], [address], [place], [address], [facility] [address] [facility] 06/07/2024 09:55:15 04/02/20 24 Blank Procedure completed Paolo Ewing RN [facility] [address] [facility] 04/02/2024 11:40:22 02/22/20 24 Wound Care-Podiatry completed Daniel Roland DPM [address], [address], [place], [address], [facility] [address] [facility] 02/22/2024 12:16:33 02/22/20 24 Callus Debridement, One completed Daniel Roland DPM [address], [address], [place], [address], [place] [employer] 02/22/2024 12:16:39 02/08/20 24 Wound Care-Podiatry completed Daniel Roland DPM [address], [address], [place], [address], [employer] [facility] [employer] [facility] 02/08/2024 16:03:13 01/25/20 24 Wound Care-Podiatry completed Daniel Roland DPM [address], [address], [place], [address], [employer] 01/26/2024 15:09:56 01/11/20 24 Wound Care-Podiatry completed Daniel Roland DPM [address], [address], [place], [address], [employer] [facility] [employer] 01/11/2024 15:05:23 12/28/19 24 Wound Care-Podiatry completed Daniel Roland DPM [address], [address], [place], [address], [employer] [facility] [employer] 12/28/2023 14:58:19 12/14/19 24 Wound Care-Podiatry completed Guerline Humphreys RN [place] [facility] [employer] 12/14/2023 15:19:29 11/02/20 23 Wound Care-Podiatry completed Daniel Roland DPM [address], [address], [place], [address], [employer] [facility] [employer] [facility] 11/02/2023 15:19:28 05/25/20 23 Wound Care-Podiatry completed Brittani Núñez RN [place] [facility] [employer] 06/01/2023 15:07:13 03/03/20 15 Explore scrotum completed Not Available [facility] 11/2022 05:52:58 03/03/20 15 incision and drainage of abscess completed Not Available [facility] 01/19/2023 05:52:58 Imaging Results Imaging Date Name Status LastModified by Organ [facility] Details LastModified Time 02/08/2024 rhythm strip, EKG* completed [email or web address] Information not available 04/02/2024 11:57:42 Procedure Notes None recorded. Medical Equipment None Reported. Allergies No known drug allergies Medications Name Sig Start Date Stop Date Status Note LastModified by Organization Details LastModified Time celecoxib 200 mg capsule Take 1 capsule twice a day by oral route. active Not Available Not Available No t Available Santyl 250 unit/gram topical ointment APPLY TO CLEANSED AFFECTED AREA right heel wound BY TOPICAL ROUTE ONCE DAILY 08/16 completed Not Available Not Available Not Available cyclobenz aprine 10 mg tablet Take 1 tablet 3 times a day by oral route as needed. 09/12 completed Not Available Not Available Not Available amoxicill in 500 mg capsule 09/12 completed Not Available Not Available Not Available furosemid e 40 mg tablet Take 1 tablet twice a day by oral route as needed. 08/16 completed stopped in rehab. Not Available Not Available Not Available metolazon e 2.5 mg tablet Take 2 tablets every day by oral route for 14 days. active Not Available Not Available No t Available fluconazo le 100 mg tablet Take 2 tablets by mouth today followed by one tablet daily. 10/05 completed Not Available Not Available Not Available atorvasta tin 40 mg tablet 08/16 completed stopped in rehab. Not Available Not Available Not Available hydralazi ne 10 mg tablet 02/08 completed Not Available Not Available Not Available carvedilo l 6.25 mg tablet 02/08 completed Not Available Not Available Not Available doxycycli ne hyclate 100 mg capsule Take 1 capsule twice a day by oral route for 10 days. 02/21 completed Not Available Not Available Not Available atorvasta tin 20 mg tablet TAKE 1 TABLET BY MOUTH EVERY DAY active Not Available Not Available No t Available carvedilo l 12.5 mg tablet TAKE 1 TABLET TWICE A DAY active Not Available Not Available No t Available ipratropi um 0.5 mg-albute rol 3 mg (2.5 mg base)/3 mL nebulizat ion soln 10/24 completed Not Available Not Available Not Available atorvasta tin 10 mg tablet TAKE 1 TABLET BY MOUTH EVERY DAY active Not Available Not Available No t Available azithromy maria teresa 250 mg tablet TAKE 2 TABLETS (500 MG) BY ORAL ROUTE ONCE DAILY FOR 1 DAY THEN 1 TABLET (250 MG) BY ORAL ROUTE ONCE DAILY FOR 4 DAYS 10/11 completed Not Available Not Available Not Available Glucagon Emergency Kit 1 mg solution for injection 08/16 completed stopped in rehab. Not Available Not Available Not Available amiodaron e 200 mg tablet take 1 tablet every 12hrs. 10/24 completed Not Available Not Available Not Available hydrocodo ne 5 mg-acetam inophen 325 mg tablet 10/05 completed RAN OUT OF MEDICINE SO HE STOPPED TAKING IT Not Available Not Available Not Available Nystop 100,000 unit/gram topical powder 04/11 completed Not Available Not Available Not Available lisinopri l 20 mg tablet TAKE 1 TABLET BY MOUTH EVERY DAY 08/16 completed stopped in rehab. Not Available Not Available Not Available Medrol (Brent) 4 mg tablets in a dose pack Take as directed 03/14 completed Not Available Not Available Not Available isosorbid e mononitra te ER 30 mg tablet,ex tended release 24 hr 02/08 completed Not Available Not Available Not Available amlodipin e 2.5 mg tablet Take 1 tablet every day by oral route. active Not Available Not Available No t Available nifedipin e ER 30 mg tablet,ex tended release TAKE 1 TABLET BY MOUTH EVERY DAY 02/21 completed Not Available Not Available Not Available chlorthal idone 25 mg tablet 04/11 completed Not Available Not Available Not Available ciproflox acin 500 mg tablet Take 1 tablet every 12 hours by oral route. 04/11 completed Not Available Not Available Not Available sulfameth oxazole 800 mg-trimet hoprim 160 mg tablet 04/11 completed Not Available Not Available Not Available tramadol 50 mg tablet Take 1 tablet twice a day by oral route as needed. active Not Available Not Available No t Available amoxicill in 500 mg tablet Take 1 tablet 3 times a day by oral route for 7 days. 09/12 completed Not Available Not Available Not Available glimepiri de 2 mg tablet active Not Available Not Available Not Available carvedilo l 3.125 mg tablet TAKE 1 TABLET BY MOUTH TWICE DAILY 08/16 completed stopped in rehab. Not Available Not Available Not Available potassium chloride ER 20 mEq tablet,ex tended release(p art/cryst ) 02/08 completed Not Available Not Available Not Available famotidin e 20 mg tablet Take 1 tablet every day by oral route. active Not Available Not Available No t Available nifedipin e ER 60 mg tablet,ex tended release 24 hr 08/16 completed stopped in rehab. Not Available Not Available Not Available tamsulosi n 0.4 mg capsule Take 1 capsule every day by oral route. active Not Available Not Available No t Available furosemid e 80 mg tablet Take 1 tablet every day by oral route for 30 days. 02/08 completed Not Available Not Available Not Available Humalog U-100 Insulin 100 unit/mL subcutane ous solution 15 units with meals 10/08 completed Not Available Not Available Not Available Queerfeed [employer] Ultra Test strips use to test blood sugar twice a day active Not Available Not Available No t Available levothyro xine 50 mcg tablet TAKE 1 TABLET BY MOUTH EVERY DAY active Not Available Not Available No t Available cephalexi n 500 mg capsule Take 1 capsule every 6 hours by oral route. 10/05 completed Not Available Not Available Not Available pantopraz ole 40 mg tablet,de layed release 02/08 completed Not Available Not Available Not Available clotrimaz ole-betam ethasone 1 %-0.05 % topical cream APPLY TO THE AFFECTED AND SURROUND ING AREAS OF SKIN BY TOPICAL ROUTE 2 TIMES PER DAY IN THE MORNING AND EVENING FOR 2 WEEKS 10/05 completed Not Available Not Available Not Available lisinopri l 10 mg tablet TAKE 1 TABLET BY MOUTH EVERY DAY active Not Available Not Available No t Available glimepiri de 4 mg tablet Take 1 mg every day by oral route. active Not Available Not Available No t Available gabapenti n 300 mg capsule Take 2 capsules 3 times a day by oral route for 90 days. 08/16 completed stopped in rehab. Not Available Not Available Not Available gentamici n 0.1 % topical cream APPLY A SMALL AMOUNT TO THE AFFECTED AREA BY TOPICAL ROUTE 3 TIMES PER DAY 02/21 completed Not Available Not Available Not Available bumetanid e 1 mg tablet Take 1 tablet twice a day by oral route. active Not Available Not Available No t Available insulin syringe U-100 with needle 1 mL 31 gauge x 5/16 10/08 completed Not Available Not Available Not Available monteluka st 10 mg tablet Take 1 tablet every day by oral route. 10/08 completed Not Available Not Available Not Available furosemid e 20 mg tablet Take 1 tablet every day by oral route as needed. 10/25 completed Not Available Not Available Not Available gabapenti n 100 mg capsule Take 2 capsules 3 times a day by oral route. active Not Available Not Available No t Available polyethyl claudia glycol 3350 17 gram/dose oral powder 04/11 completed Not Available Not Available Not Available levofloxa maria teresa 750 mg tablet 02/08 completed Not Available Not Available Not Available insulin syringe U-100 with needle 1 mL 30 gauge x 06/05 completed Not Available Not Available Not Available albuterol sulfate HFA 90 mcg/actua tion aerosol inhaler INHALE 2 PUFFS BY MOUTH EVERY 4 HOURS active Not Available Not Available No t Available nifedipin e ER 60 mg tablet,ex tended release TAKE 1 TABLET BY MOUTH EVERY DAY 08/16 completed stopped in rehab. Not Available Not Available Not Available cefdinir 300 mg capsule Take 1 capsule every 12 hours by oral route for 10 days. active Not Available Not Available No t Available fluticaso ne propionat e 50 mcg/actua tion nasal spray,ana pension [place] 2 sprays every day by intranas al route. active Not Available Not Available No t Available metformin ER 500 mg tablet,ex tended release 24 hr Take 2 tablets twice a day by oral route. active Not Available Not Available No t Available doxycycli ne hyclate 100 mg tablet 05/25 completed Not Available Not Available Not Available loratadin e 10 mg tablet Take 1 tablet every day by oral route. 09/12 completed Not Available Not Available Not Available glipizide 5 mg tablet TAKE 2 TABLETS EVERY MORNING AND 1 TABLET EVERY EVENING active Not Available Not Available No t Available amoxicill in 875 mg-potass ium clavulana te 125 mg tablet Take 1 tablet twice a day by oral route for 7 days. 02/08 completed Not Available Not Available Not Available Humalog U-100 Insulin 100 unit/mL subcutane ous cartridge inject 10 units with meals active Not Available Not Available No t Available Blood Glucose Monitorin g kit 05/21 completed Not Available Not Available Not Available Vigamox 0.5 % eye drops 10/05 completed RAN OUT OF MEDICINE SO HE STOPPED TAKING IT Not Available Not Available Not Available rosuvasta tin 20 mg tablet Take 1 tablet every day by oral route. 09/26 completed Not Available Not Available Not Available metoprolo l tartrate 25 mg tablet TAKE 1 TABLET BY MOUTH TWICE DAILY active Not Available Not Available No t Available BD Ultra-Fin e Mini Pen Needle 31 gauge x 3/16 02/21 completed Not Available Not Available Not Available Novofine Autocover 30 gauge x 1/3 needle 02/21 completed Not Available Not Available Not Available ramelteon 8 mg tablet Take 1 tablet every day by oral route at bedtime. 10/24 completed Not Available Not Available Not Available aspirin active Not Available Not Avail able Not Available hydrocodo ne 5 mg-acetam inophen 300 mg tablet Take 1 tablet every 4 hours by oral route. 10/05 completed RAN OUT OF MEDICINE SO HE STOPPED TAKING IT Not Available Not Available Not Available Levemir U-100 Insulin 100 unit/mL subcutane ous solution Inject 25 units twice a day by subcutan eous route for 90 days. 10/08 completed Not Available Not Available Not Available Levemir FlexPen 100 unit/mL (3 mL) solution subcutane ous insulin pen active Not Available Not Available Not Available BD Insulin Syringe Ult-Fine II 1 mL 31 gauge x 510/05 completed Not Available Not Available Not Available BD Ultra-Fin e Short Pen Needle 31 gauge x 5/16 10/05 completed Not Available Not Available Not Available Lantus Solostar U-100 Insulin 100 unit/mL (3 mL) subcutane ous pen ADMINIST ER 15 UNITS UNDER THE SKIN AT BEDTIME 08/16 completed stopped in rehab. Not Available Not Available Not Available Humalog KwikPen (U-100) Insulin 100 unit/mL subcutane ous Inject 10 units 3 times a day by subcutan eous route with meals. active Not Available Not Available No t Available Tradjenta 5 mg tablet TAKE 1 TABLET DAILY 10/08 completed Not Available Not Available Not Available lidocaine 5 % topical ointment 10/05 completed Not Available Not Available Not Available Victoza 3-Brent 0.6 mg/0.1 mL (18 mg/3 mL) subcutane ous pen injector INJECT 1.8 MG DAILY 05/16 completed Not Available Not Available Not Available Farxiga 5 mg tablet TAKE 1 TABLET BY MOUTH EVERY DAY 02/21 completed Not Available Not Available Not Available Vitals Date Recorded Body height Oxygen saturation Oxygen saturation in Arterial blood by Pulse oximetry Heart rate Body temperature Systolic blood pressure Diastolic blood pressure Provider Name and Address Organization Details Last Updated DateTime 4 182.88 cm 99 % 99 % 76 /min 98.4 [degF] 104 mm[Hg] 61 mm[Hg] Paolo Ewing RN [facility] [employer] [facility] 4 11:15:42 Date Recorded Body height Heart rate Systolic blood pressure Diastolic blood pressure Provider Name and Address Organization Details Last Updated DateTime 05/29/2024 182.88 cm 85 /min 144 mm[Hg] 94 mm[Hg] Tisha Villarreal CNA [facility] 05/29/2024 14:38:07 Date Recorded Body height Heart rate Respiratory rate Body temperature Oxygen saturation Oxygen saturation in Arterial blood by Pulse oximetry Systolic blood pressure Diastolic blood pressure Provider Name and Address Organization Details Last Updated DateTime 4 182.88 cm 101 /min 18 /min 98.1 [degF] 97 % 97 % 126 mm[Hg] 76 mm[Hg] Guerline Humphreys RN [facility] 4 16:34:03 Date Recorded Body height Heart rate Respiratory rate Oxygen saturation Oxygen saturation in Arterial blood by Pulse oximetry Provider Name and Address Organization Details Last Updated DateTime 4 182.88 cm 98 /min 16 /min 97 % 97 % Mary David [facility] [employer] [facility] 4 15:39:53 Date Recorded Body height Body temperature Respiratory rate Oxygen saturation Oxygen saturation in Arterial blood by Pulse oximetry Heart rate Systolic blood pressure Diastolic blood pressure Provider Name and Address Organization Details Last Updated DateTime 5 182.88 cm 98.3 [degF] 18 /min 98 % 98 % 76 /min 149 mm[Hg] 72 mm[Hg] Melissa Esquivel [place] [facility] 5 16:03:31 Social History Question Answer Notes LastModified by Organization Details LastModified Time Tobacco Smoking Status Never Smoker Not Available [employer] 01/19/2023 05:52:19 Do You Have An Advance Directive? No MIGRATION.030 [id number] Information not available 01/19/2023 What Is Your Level Of Alcohol Consumption? Occasional MIGRATION.030 659307 Information not available 01/19/2023 Are You Blind Or Do You Have Difficulty Seeing? Yes MIGRATION.030 824145 Information not available 01/19/2023 What Is Your Level Of Caffeine Consumption? None MIGRATION.030 018831 Information not available 01/19/2023 In The 14 Days Before Symptom Onset, Have You Had Close Contact With A Laboratory-confi rmed COVID-19 While That Case Was Ill? No MIGRATION.030 750369 Information not available 01/19/2023 In The 14 Days Before Symptom Onset, Have You Had Close Contact With A Person Who Is Under Investigation For COVID-19 While That Person Was Ill? No MIGRATION.030 154091 Information not available 01/19/2023 Are You Deaf Or Do You Have Serious Difficulty Hearing? No MIGRATION.030 030932 Information not available 01/19/2023 What Type Of Diet Are You Following? REGULAR MIGRATION.030 214338 Information not available 01/19/2023 What Is The Highest Grade Or Level Of School You Have Completed Or The Highest Degree You Have Received? [id number] MIGRATION.030 495204 Information not available 01/19/2023 What Is Your Occupation? Retired MIGRATION.030 374609 Information not available 01/19/2023 Have There Been Any Changes To Your Family Or Social Situation? No MIGRATION.030 760264 Information not available 01/19/2023 What Is The Fluoride Status Of Your Home? Unknown MIGRATION.030 142921 Information not available 01/19/2023 Are There Any Guns Present In Your Home? Yes MIGRATION.030 604823 Information not available 01/19/2023 Do You Use Insect Repellent Routinely? No MIGRATION.0301 364945 Information not available 01/19/2023 Where Do You Live? SingleLevelHouse With Basement MIGRATION.030 767944 Information not available 01/19/2023 Do You Have A Medical Power Of Cougar Hunter? No MIGRATION.0301 356355 Information not available 01/19/2023 What Was The Date Of Your Most Recent Tobacco Screening? 10/24/2023 [email or web address] Information not available 10/24/2023 Do You Have Any Pets? Yes MIGRATION.0301 328371 Information not available 01/19/2023 What Is Your Relationship Status? MIGRATION.0301 956879 Information not available 01/19/2023 Do You Use Your Seat Belt Or Car Seat Routinely? Yes MIGRATION.0301 147427 Information not available 01/19/2023 Do You Have Smoke And Carbon Monoxide Detectors In Your Home? Yes MIGRATION.0301 620676 Information not available 01/19/2023 Are You Passively Exposed To Smoke? No MIGRATION.0301 985084 Information not available 01/19/2023 Are There Any Smokers In Your House? No MIGRATION.0301 092709 Information not available 01/19/2023 What Types Of Sporting Activities Do You Participate In? None MIGRATION.0301 [id number] Information not available 01/19/2023 Do You Feel Stressed (tense, Restless, Nervous, Or Anxious, Or Unable To Sleep At Night)? [id number] MIGRATION.0301 583809 Information not available 01/19/2023 Do You Use Any Illicit Or Recreational Drugs? No MIGRATION.0301 788917 Information not available 01/19/2023 Do You Use Sunscreen Routinely? No MIGRATION.0301 326360 Information not available 01/19/2023 Has Tobacco Cessation Counseling Been Provided? No Not Needed-nev er Smoked MIGRATION.0301 280816 Information not available 01/19/2023 Have You Recently Traveled Abroad? No MIGRATION.0301 286191 Information not available 01/19/2023 Do You Have Any Dietary Restrictions? No MIGRATION.0301 050868 Information not available 01/19/2023 Do You Or Have You Ever Used Any Other Forms Of Tobacco Or Nicotine? No MIGRATION.0301 737812 Information not available 01/19/2023 Sex: Male Functional Status Question Answer Note LastModified by Organizat ion Details LastModified Time Do you have difficulty walking or climbing stairs? Yes MIGRATION.989386 6777 Information not available 01/19/2023 Do you have transportation difficulties? Yes Patient does not drive. MIGRATION.323450 7339 Information not available 01/19/2023 Are you able to walk? YESASSIST breannee MIGRATION.679083 2224 Information not available 01/19/2023 Do you have difficulty doing errands alone? Yes Patient does not drive. MIGRATION.393087 2865 Information not available 01/19/2023 Are you able to care for yourself? Yes MIGRATION.580207 0411 Information not available 01/19/2023 Do you have difficulty dressing or bathing? No MIGRATION.319870 5096 Information not available 01/19/2023 What is your exercise level? None MIGRATION.154257 7357 Information not available 01/19/2023 Mental Status Question Answer Note LastModified by Organizat ion Details LastModified Time Do you have difficulty concentrating, remembering or making decisions? No MIGRATION.[id number] Information not available 01/19/2023 Family History Relationship Description Onset Age of this Age Resolved Age Notes LastModified by Organization Details LastModified Time Father Heart disease MIGRATION.127 [id number] Not available 01/19/2023 05:52:59 Mother Malignant tumor of breast MIGRATION.961 [id number] Not available 01/19/2023 05:52:59 Medical History Condition Response NERVE DISEASE N BLINDNESS N RHEUMATIC FEVER N KIDNEY STONES N BLADDER PROBLEMS N MRSA N OTHER # 1 N POLIO N LUNG DISEASE/DISORDER N HISTORY OF DRUG ABUSE N RADIATION / CHEMOTHERAPY N COPD N Other # 2 N BLOOD DISEASES N EAR OR HEARING PROBLEMS N MUMPS N SHINGLES N BOWEL PROBLEMS N DEPRESSION (INCLUDING POST ) N STROKE/TIA N ULCERS N BENIGN PROSTATIC HYPERPLASIA N MEASLES N HYPOTENSION N MYOCARDIAL INFARCTION N OBESITY Y GERD/NAUSEA N ANEURYSM N URINARY/BLADDER/KIDNEY PROBLEMS N CORONARY ARTERY DISEASE (CAD) N ADDICTION CONCERNS N Impotence N ENDOMETRIOSIS N USE OF BLOOD THINNERS N SKIN PROBLEMS N GASTROINTESTINAL DISORDER N PERIPHERAL VASCULAR DISEASE N MUSCLE,JOINT OR BONE PROBLEMS N GASTROINTESTINAL BLEEDING N BLOOD CLOTS N ASTHMA N CATARACTS N ERECTILE DYSFUNCTION N VARICOSITIES N GI PROBLEMS N Low Testosterone N INFERTILITY N AIDS/HIV N CHEMOTHERAPY / RADIATION N LIVER DISEASE N MALE HYPOGONADISM N HYPERTENSION Y Deficiency N TOURETTE'S N ANXIETY DISORDER N BLOOD TRANSFUSION N ANEMIA/BLOOD DISORDER N CHRONIC EAR INFECTIONS N BRONCHITIS N TUBERCULOSIS N GLAUCOMA N FOOT PROBLEM N DIVERTICULITIS N SLEEP APNEA N CHICKENPOX N INFECTIOUS DISEASE N PROSTATE N HEART ARRHYTHMIA N INSOMNIA N HIGH CHOLESTEROL / HYPERLIPIDEMIA Y EYE PROBLEMS N HYPERTHYROIDISM N EDEMA N CHRONIC PAIN SYNDROME N HYPOTHYROIDISM N CONSTIPATION N CAROTID BLOCKAGE N BACK / NECK PROBLEMS N HAVE YOU BEEN HOSPITALIZED OR SEEN IN TH E ER IN THE PAST YEAR ? Y ATHEROSCLEROSIS N BREAST PROBLEMS N DIALYSIS N ECZEMA N OSTEOPOROSIS N ARTHRITIS Y APPENDICITIS N DIABETES, TYPE Y BAD TEETH N ENT N HEARTBURN / REFLUX N AUTISM SPECTRUM DISORDER (ASD) N HEPATITIS / LIVER DISEASE N GOUT N SLEEP DISORDER N ALZHEIMER'S DISEASE N Brain Problems N DEMENTIA N HERPES N SEIZURES/EPILEPSY N HEADACHES/MIGRAINES N VASCULAR DISEASE N PACEMAKER N Blood Disorder N DIZZINESS N HEART DISEASE/HEART PROBLEMS N KIDNEY DISEASE Y MULTIPLE SCLEROSIS N CANCER: SPECIFY N CARDIAC ARRHYTHMIA N ATRIAL FIBRILLATION N Gall Stones N PULMONARY EMBOLISM N AUTOIMMUNE DISEASE N Immunizations Vaccine Type Date Status Note Provider Nam e and Address Organization Details Recorded Time Td (adult), 2 Lf tetanus toxoid, preservative free, adsorbed 2 completed Not Available [facility] 01/01/2024 22:46:31 Past Encounters Encounter ID Performer Location Encounter Start Date Encounter Closed Date Diagnosis/Indication Diagnosis SNOMED-CT Code Diagnosis ICD10 Code Diagnosis Note [id number] [facility] [address] [address] 08/10/2021 00:00:00 08/23/2021 17:37:52 [id number] [facility] [address] [address] 08/21/2021 00:00:00 08/23/2021 11:41:29 [id number] [facility] [address] [address] 09/18/2021 00:00:00 09/18/2021 21:33:06 [id number] [facility] [address] [address] 10/14/2021 00:00:00 10/15/2021 12:47:46 [id number] [facility] [address] [address] 11/23/2021 00:00:00 11/23/2021 22:52:36 [id number] [facility] [address] [address] 12/28/2021 00:00:00 01/24/2022 21:41:44 [id number] [facility] [[email or web address] [address] [place] [address] [place] [address] 03/22/2022 00:00:00 04/12/2022 22:14:24 [id number] [facility] [[email or web address]] [address] [place], [place] [address]., [address] [address] 03/31/2022 00:00:00 03/31/2022 20:59:28 [id number] [facility] [place] [address] [place] [address] 05/21/2022 00:00:00 05/21/2022 10:46:27 [id number] [facility] [place] [address] [place] [address] 08/03/2022 00:00:00 08/03/2022 16:40:33 [id number] [facility] [[email or web address]] [address] [place], [place] [address]., [address] [address] 08/06/2022 00:00:00 08/07/2022 12:10:38 [id number] [facility] [[email or web address]] [address] [place] [address]., [address] [address] 10/11/2022 00:00:00 10/16/2022 17:42:43 [id number] [facility] [[email or web address]] [address] [place] [address]., [address] [address] 10/25/2022 00:00:00 10/25/2022 23:57:09 [id number] Bryan Hough MD [facility] [address] [facility] [place] [facility] [place] [address] 02/08/2023 14:55:35 02/08/2023 17:12:09 Chronic diastolic heart failure 057976227 I50.32 Neuropathy due to diabetes mellitus 594450514 E11.40 Essential hypertension 16841013 I10 Hyperlipidemia 75532866 E78.5 [id number] Daniel Roland DPM [facility] [address] [place] [address] 05/25/2023 14:45:14 05/25/2023 18:39:59 Chronic ulcer of heel 0121975715 2797239 L97.412 continue daily wound careFollow -up x-raysWoun d is down to tendon with mild necrosisre commend Santyl applicatio n daily to right heel woundconti nue protective devices with offloading all times Diabetic p eripheral neuropathy 752654251 E11.42 Patient educated on neuropathy , diabetes, diabetic diet, and daily foot exams. Patient is to check feet daily for new wounds, blisters, redness to prevent infection and ulceration s to the feet. Patient will return to clinic in 3 months for diabetic foot workup. Peripheral arterial occlusive disease 595715672 I73.9 continue with vascular recommenda tioncontin ue with offloading devices to prevent worsening at all times [id number] Bryan Hough MD [facility] [address] [facility] [address] [place] [address] 10/24/2023 14:34:54 10/24/2023 15:29:55 Hyperlipidemia 75710595 E78.5 Type 2 carlos betes mellitus without complication 393226392 E11.9 Open wound of right foot 9552019326 5204323 S91.301A Neuropathy 813332211 G62 .9 Peripheral arterial occlusive disease 673335525 I73.9 Essential hypertension 29768995 I10 [id number] [facility] [address] [place] [address] 11/02/2023 14:11:08 11/02/2023 18:10:46 Chronic ulcer of heel 5227010732 0388957 L97.412 Wounds q0itqqwhim daily wound careMandat ory offloading at all timesHas refer foot Darco offloading shoe for transfersN ot weight-annette ring with use of wheelchair Wound is down to tendon with mild necrosis-w ound debrided todayFollo w-up 3 weeks Neuropathy due to diabetes mellitus 949876566 E11.40 Offloading to prevent worsening [id number] Daniel Roland DPM [facility] [address] [place] [address] 12/14/2023 14:01:47 12/14/2023 15:19:21 Chronic ulcer of heel 9657735198 7801462 L97.412 Wounds i1upveyelr daily wound careMandat ory offloading at all timesHas refer foot Darco offloading shoe for transfersN ot weight-annette ring with use of wheelchair Follow-up 1 week Neuropathy due to diabetes mellitus 657546477 E11.40 Offloading to prevent worsening Open wound of right lower leg 3303609012 9362992 S81.801A Daily dressings Chronic compressio n recommende d to prevent worsening Follow-up 1 week [id number] Daniel Roland DPM [facility] [address] [place] [address] 12/28/2023 14:15:08 12/28/2023 16:29:33 Chronic ulcer of heel 5817018786 3581899 L97.412 Wounds x1xray 1-24-neg for erosive changes, positive for calcaneal spurcontin ue daily wound careMandat ory offloading at all timesHas rearfoot Darco offloading shoe for transfersN ot weight-annette ring with use of wheelchair Follow-up 1 week Open wound of right lower leg 8900990972 6218131 S81.801A healed with callus Neuropathy due to diabetes mellitus 667974507 E11.40 Offloading to prevent worsening [id number] Daniel Roland DPM [facility] [address] [place] [address] 01/11/2024 14:20:10 01/11/2024 15:08:19 Chronic ulcer of heel 0046748441 3494334 L97.412 Wounds x1xray 1-24-neg for erosive changes, positive for calcaneal spurcontin ue daily wound careMandat ory offloading at all timesHas rearfoot Darco offloading shoe for transfersN ot weight-annette ring with use of wheelchair Follow-up 1 week Open wound of right lower leg 0438253686 4048154 S81.801A multiplebe tadine wet to dry dressingst ubigrip disp Peripheral vascular disease 358770148 I73.9 Ulcer of toe 133337678 L 97.509 right 4thbetadin e wet to dry dressing Lymphedema of lower extremity 310913529 I89.0 [id number] Daniel Roland DPM [facility] [address] [place] [address] 01/25/2024 14:59:58 01/30/2024 08:36:32 Chronic ulcer of heel 6726913813 9497832 L97.412 Wounds j0kbyciafv todayxray 1-24-neg for erosive changes, positive for calcaneal spurcontin ue daily wound careMandat ory offloading at all timesHas rearfoot Darco offloading shoe for transfersN ot weight-annette ring with use of wheelchair Follow-up 1 week Open wound of right lower leg 3058530675 6991700 S81.801A x1 with dry escharbeta dine wet to dry dressingst ubigrip disp Ulcer of toe 857193513 L 97.509 right 4thhealed Peripheral vascular disease 075313350 I73.9 vascular referral today Lymphedema of lower extremity 508900672 I89.0 [id number] Maxx Kaufman MD [facility] [address] [place] [address] 01/30/2024 11:15:55 02/01/2024 15:38:36 Peripheral arterial occlusive disease 914698704 I73.9 s/p balloon angioplast y Cough 68731744 R05.9 [id number] Daniel Roland DPM [facility] [address] [place] [address] 02/08/2024 12:24:38 02/08/2024 16:06:39 Chronic ulcer of heel 1599508734 5310904 L97.412 Wounds x1xray 1-24-neg for erosive changes, positive for calcaneal spurcontin ue daily wound careMandat ory offloading at all timesHas rearfoot Darco offloading shoe for transfersN ot weight-annette ring with use of wheelchair Follow-up 1 week Open wound of right lower leg 0244879066 1288481 S81.801A x1 with dermal woundbetad ine wet to dry dressingst ubigrip disp Peripheral vascular disease 976027767 I73.9 vascular referral today Lymphedema of lower extremity 448959702 I89.0 Non-compli ant with compressio n to lower extremity [id number] Daniel Roland DPM [facility] [address] [place] [address] 02/22/2024 11:41:11 02/22/2024 17:22:52 Chronic ulcer of heel 4003781542 6569473 L97.412 healedcont inue offloading to prevent recurrence Open wound of right lower leg 6556672215 8847755 S81.801A healedTubi campaign fundraiser dispensed ontinue chronic compressio n to prevent recurrence Peripheral vascular disease 560295138 I73.9 vascular referral today Lymphedema of lower extremity 680259847 I89.0 Non-compli ant with compressio n to lower extremity [id number] MD KRUPA [facility] [address] [place] [address] 04/02/2024 10:57:10 04/02/2024 14:41:30 Edema of lower extremity 049887693 R60.0 This gentleman was seen few weeks ago for LE edemaEcho with normal LV systolic function, LE with no DVT presentmed s includes Amlodipine , however a very low dose ( 2.5 mg daily ) [id number] Daniel Roland DPM [facility] [place] [address], [address] [place] [address] 05/29/2024 14:30:01 06/07/2024 10:26:23 Ulcer of lower extremity 07007907 L97.821 L97.811 Betadine wet-to-dry dressings to both wounds dailyAce compressio n appliededu cated on chronic use of compressio nfollow-up wound care next week Edema of l ower extremity 762954123 R60.0 recommend chronic compressio n therapy currently not utilizing Diabetes mellitus 096601 09 E11.9 continue diabetic control per PCP recommenda tions Dystrophia unguium 12480 009 L60.3 nails debrided without incident [id number] Daniel Roland DPM [facility] [address] [place] [address] 06/06/2024 15:51:08 06/07/2024 10:28:20 Edema of lower extremity 283950520 R60.0 recommend chronic compressio n therapy currently not utilizing Ulcer of l ower extremity 65169444 L97.821 L97.811 both wounds healedmoni tor for new wounds daily if present seek medical attention immediatel y [id number] Daniel Roland DPM [facility] [place] [address], [address] [place] [address] 08/28/2024 15:26:14 08/29/2024 12:15:31 Edema of lower extremity 232263254 R60.0 recommend chronic compressio n therapy currently not utilizing Diabetes mellitus 541614 09 E11.9 continue diabetic control per PCP recommenda tions Diabetic p eripheral neuropathy 416660672 E11.42 Patient educated on neuropathy , diabetes, diabetic diet, and daily foot exams. Patient is to check feet daily for new wounds, blisters, redness to prevent infection and ulceration s to the feet. Patient will return to clinic in 3 months for diabetic foot workup. Dystrophia unguium 01488 009 L60.3 nails debrided without incident [id number] Daniel Roland DPM [facility] [address] [place] [address] 02/13/2025 15:47:07 02/13/2025 18:00:05 Peripheral arterial occlusive disease 002200602 I73.9 report to emergency room secondary to multiple wounds and gangrene Diabetes mellitus 814509 09 E11.52 continue diabetic control per PCP recommenda tionsrepor t to emergency room for further evaluation and management secondary to gangrene Ulcer of r ight foot due to type 2 diabetes mellitus 3960662097 6130694 E11.621 Betadine wet-to-dry dressings daily-- applied today Ulcer of l eft foot due to type 2 diabetes mellitus 8633422203 0407992 E11.621 Betadine wet-to-dry dressings to open wounds daily-- applied todayrecom mend report to the emergency room for left digit gangrene Lymphedema of bilateral lower limbs 8283509999 3246753 I89.0 noncomplia nt with compressio n Health Concerns Section Related Observation LastModified by Organization Detai ls LastModified Time None Recorded Concern Status LastModified by Organization Details LastModified Time None Recorded Advance Directives Directive N: Payers Encounter Date Sequence Insurance Name Policy Number Policy Mccrary Covered Member ID Mccrary Member ID Guarantor Name 04/02/[address] [facility] (MEDICARE REPLACEMENT/A DVANTAGE - PPO) [id number] Gildardo Kat [id number] Gildardo Kat 05/29/[address] [facility] (MEDICARE REPLACEMENT/A DVANTAGE - PPO) [id number] Gildardo Kat [id number] Gildardo Kat 06/06/[address] [facility] (MEDICARE REPLACEMENT/A DVANTAGE - PPO) [id number] Gildardo Kat [id number] Gildardo Kat 08/28/[address] [facility] (MEDICARE REPLACEMENT/A DVANTAGE - PPO) [id number] Gildardo Kat [id number] Gildardo Kat 02/13/[address] [facility] (MEDICARE REPLACEMENT/A DVANTAGE - PPO) [id number] Gildardo Kat [id number] Gildadro Kat Notes Date Note Type Note Provider Name and Address Organization Details Recorded Time 04/02/2024 text/html Follow up for this gentleman for Le edema.Last visit following work up was done.Echo with a normal LV size and systolic functionLE duplex with no DVT found.Routine Labs with mild elevated TSH at 8, with normal Free TY4 levelPCP added Metolazone 2.5 mg MO-WE-Fr, with no significant changeBUN/Creat were mildly elevated Per , he has his feet on the floor, until she yells at him to keep them up. Maxx Kaufman MD [address] [place] [address], [place], [address], [facility] [employer] 04/02/2024 12:41:21 05/29/2024 text/html . Patient is a 69-year-old male diabetic who returns the office for routine foot care. Patient states his nails are long he is unable to cut them. Patient states that he also has developed some new lower leg wounds secondary to lymphedema and he is not wearing any compression stockings. Patient states he does wear Tubigrip but this is not enough compression. Patient is unable to apply the stockings and his is unable to put them on. Patient was educated on different modes of compression reduction which he does not do. Patient presents a wheelchair with poor hygiene. Patient denies any other complaints. Daniel Roland DPM [address], [address], [place], [address], [facility] [employer] [facility] 06/07/2024 09:55:49 06/06/2024 text/html . Patient is 69-year-old male diabetic who returns the office for wounds of the lower legs. Patient has completely healed the wounds. Patient still smells like urine. I did discuss at last visit that patient needs to utilize garments to prevent him from soiling himself and his legs. Patient denies any other complaints. Daniel Roland DPM [address], [address], [place], [address], [employer] 06/07/2024 09:52:38 08/28/2024 text/html . Patient is a 69-year-old male who presents the office for diabetic foot care he presents with his in a wheelchair he currently is in physical therapy for rehab to get back to weight-bearing. Patient states he is standing to transition but is not yet walking. Patient denies any other complaints. Patient requests his nails be cut. Daniel Roland DPM [address], [address], [place], [address], [employer] [facility] [employer] 08/28/2024 16:13:28 02/13/2025 text/html . Patient is a 70-year-old male who returns to the office with new gangrene new his distal 3rd and 4th toe of the left foot. Patient states this has been ongoing for a couple days. Patient has been trying to self treat the area has significant swelling of the lower extremity which has created blistering of the toes to his right foot. Patient denies any fever, chills, nausea vomiting. Patient denies any other complaints. Daniel Roland DPM [address], [address], [place], [address], [employer] [employer] [facility] J-Kan 02/13/2025 16:46:42
--- OUTSIDE RECORDS SUMMARY | 2025-02-14 15:54 | XMS_ITS | Continuity of Care Document ---
Author Organization [place] - [facility], [facility] Address [address] [place] [address] Assessment Encounter Date Assessment Date Assessment LastModified by Organization Details LastModified Time 02/13/2025 02/13/2025 This note is dictated and transcribed by [employer]. [employer] Consultant variances may occur. Despite proofreading, typographical errors may occur. Occasional wrong-word or 'hnqoh-s-mprk' substitutions may have occurred due to the inherent limitations of voice recording. Read the chart carefully and recognize, using context, where substitutions have occurred. [email or web address] Not available 02/13/2025 16:36:52 Plan of Treatment Reminders Order Date Submit Date Provider Last Modified By Organization Details Last Modified Time Details Appointments None record ed. Lab None record ed. Referral None record ed. Procedures None record ed. Surgeries None record ed. Imaging None record ed. Medication Orders None record ed. Patient TargetsNo targets recorded. Patient InstructionsNo instructions recorded. Reason for Referral None Reported. Problems Name Problem SNOMED Code Status Onset Date Resolution Date Notes Provider Name and Address Organization Details Recorded Time Edema of lower extremity 575075106 Active 2022 Not Available [facility] 4 22:46:30 Renewal of prescript ion Active 2021 Not Available [facility] 4 22:46:30 Acute kidney injury 41191196 Active Not Available [facility] 4 22:46:30 Standard chest X-ray abnormal 117040798 Active 2021 Not Available [facility] 4 22:46:30 Neuropath y due to diabetes mellitus 964585904 Active 2021 Not Available [facility] 4 22:46:30 Pneumonia 183712812 Active 2021 Not Available [facility] 4 22:46:30 Edema 342546695 Active 2021 Not Available [facility] 4 22:46:30 Swelling of scrotum 393027919 Completed Not Available [facility] 3 05:56:42 Celluliti s of finger 35847892 Completed Not Available [facility] 3 05:56:42 Abscess of scrotum 48375700 Completed Not Available [facility] 3 05:56:42 Low back pain 280101130 Active 2021 Not Available [facility] 4 22:46:30 Dog bite of hand 718129767 Active 2021 Not Available [facility] 4 22:46:30 Type 2 diabetes mellitus without complicat ion 642521339 Active Not Available [facility] 4 22:46:30 Bronchiti s 01257879 Active 2021 Not Available [facility] 4 22:46:30 Celluliti s of scrotum 26050844 Completed Not Available [facility] 3 05:56:43 Dyslipide quan 832421908 Active Not Available [facility] 4 22:46:30 Migraine 94495820 Active 2021 Not Available [facility] 4 22:46:30 Osteoarth ritis 355904458 Active Not Available [facility] 4 22:46:30 Obesity 846435234 Active Not Available [facility] 4 22:46:30 Diabetic periphera l neuropath y 107068678 Active 2021 Not Available [facility] 4 22:46:30 Chronic diastolic heart failure 834667901 Active 2021 Not Available [facility] 4 22:46:30 Screening for malignant neoplasm of prostate Active 2021 Not Available [facility] 4 22:46:31 Dysuria 87938812 Completed Not Available [facility] 3 05:56:43 Cough 62445364 Active 2021 Not Available [facility] 4 22:46:31 Upper respirato ry infection 67107463 Active 2021 Not Available [facility] 4 22:46:31 Acute upper respirato ry infection 82815853 Active 2021 Not Available [facility] 4 22:46:31 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 96451745 Active 2020 Not Available [facility] 4 22:46:31 Essential hypertens ion 65648877 Active Not Available [facility] 4 22:46:31 Pleural effusion 89314538 Active 2021 Not Available [facility] 4 22:46:31 Diabetes mellitus 31997145 Completed NELIDA Steen, JULIETH - S [place] [employer] [facility] 3 17:44:13 Hyperglyc emia 38886946 Active Not Available [facility] 4 22:46:31 Neck pain 73627151 Active 2021 Not Available [facility] 4 22:46:31 COVID-19 356634833 Active 2021 Not Available [facility] 4 22:46:31 Hyperlipi demia 38149439 Active 2022 Not Available [facility] 4 22:46:31 Chronic ulcer of heel 00220119199 219208 Active 2022 Not Available [facility] 4 22:46:30 Periphera l arterial occlusive disease 045864601 Active 2022 Not Available [facility] 4 22:46:30 Open wound of right foot 35180937627 905450 Active 2022 Not Available [facility] 4 22:46:30 Neuropath y 683058778 Active 2022 Not Available [facility] 4 22:46:30 Diabetes mellitus 72486948 Active 2022 Not Available [facility] 4 22:46:31 Open wound of right lower leg 00776172505 361425 Active 2023 Not Available [facility] 4 22:46:30 Periphera l vascular disease 474407170 Active 2023 Daniel Roland DPM [address], [address], [place], [address] , [employer] 4 14:54:34 Dystrophi a unguium 32135520 Active 2023 Daniel Roland DPM [address], [address], [place], [address] , [employer] 4 14:56:34 Ulcer of toe 855428255 Active 2023 Daniel Roland DPM [address], [address], [place], [address] , [facility] 4 14:56:46 Ulcer of lower extremity 83407454 Active 2023 Daniel Roland DPM [address], [address], [place], [address] , [facility] 4 14:57:07 Lymphedem a of lower extremity 484835628 Active 2023 Daniel Roland DPM [address], [address], [place], [address] , [facility] 4 14:57:13 Abrasion of skin of lower limb 888317103 Active 2023 Daniel Roland DPM [address], [address], [place], [address] , [facility] 4 09:50:50 Ulcer of lower extremity 96636661 Active 2023 Daniel Roland DPM [address], [address], [place], [address] , [employer] [facility] 4 09:51:13 Ulcer of right foot due to type 2 diabetes mellitus 82257752347 524096 Active 2024 Daniel Roland DPM [address], [address], [place], [address] , [facility] [employer] [facility] [employer] [facility] 16:44:59 Ulcer of left foot due to type 2 diabetes mellitus 34688495493 811694 Active 2024 Daniel Roland DPM [address], [place], [address] , [facility] [employer] [facility] [employer] [facility] 16:45:04 Lymphedem a of bilateral lower limbs 44320868158 367052 Active 2024 Daniel Roland DPM [address], [place], [address] , [facility] [employer] [facility] 16:45:55 Notes:Some problems listed i n Documents: #[id number], #[id number] could not be added to this patient's chart. Please review these documents and add these problems to the patient's chart manually as needed. Problem Notes None recorded. Procedures Surgical History Date Name Laterality Status Provider Name and Address Organization Details Recorded Time 02/14/20 25 Wound Care-Podiatry completed Guerline Humphreys RN [facility] [employer] [facility] 02/13/2025 16:29:00 08/28/20 24 Nail Debridement completed Daniel Roland DPM [address], [place], [address], [facility] [employer] [facility] 08/28/2024 16:07:22 06/06/20 24 Wound Care-Podiatry completed Guerline Humphreys RN [facility] [employer] [facility] 06/06/2024 16:31:33 05/29/20 24 Nail Debridement completed Daniel Roland DPM [address], [place], [address], [facility] [employer] 06/07/2024 09:55:15 04/02/20 24 Blank Procedure completed Paolo Ewing RN [facility] [employer] [facility] 04/02/2024 11:40:22 02/22/20 24 Wound Care-Podiatry completed Daniel Roland DPM [address], [place], [address], [facility] [employer] [facility] 02/22/2024 12:16:33 02/22/20 24 Callus Debridement, One completed Dnaiel Roland DPM [address], [address], [place], [address], [employer] [facility] [employer] [facility] 02/22/2024 12:16:39 02/08/20 24 Wound Care-Podiatry completed Daniel Roland DPM [address], [address], [place], [address], [employer] [facility] 02/08/2024 16:03:13 01/25/20 24 Wound Care-Podiatry completed Daniel Roland DPM [address], [address], [place], [address], [employer] [facility] 01/26/2024 15:09:56 01/11/20 24 Wound Care-Podiatry completed Daniel Roland DPM [address], [address], [place], [address], [employer] [facility] 01/11/2024 15:05:23 12/28/19 24 Wound Care-Podiatry completed Daniel Roland DPM [address], [address], [place], [address], [employer] [facility] 12/28/2023 14:58:19 12/14/19 24 Wound Care-Podiatry completed Guerline Humphreys RN [place] [employer] [facility] [employer] [facility] 12/14/2023 15:19:29 11/02/20 23 Wound Care-Podiatry completed Daniel Roland DPM [address], [place], [address], [facility] [employer] [facility] [employer] [facility] 11/02/2023 15:19:28 05/25/20 23 Wound Care-Podiatry completed Brittani Núñez RN [place] [employer] [facility] [employer] [facility] 06/01/2023 15:07:13 03/03/20 15 Explore scrotum completed Not Available [facility] 11/2022 05:52:58 03/03/20 15 incision and drainage of abscess completed Not Available [facility] 01/19/2023 05:52:58 Imaging Results None recorded. Procedure Notes None recorded. Medical Equipment None [...] completed Not Available Not Available Not Available [employer] Ultra Test strips use to test blood [...] e 50 mcg/actua tion nasal spray,ana [employer] [place] 2 sprays every day by intranas al [...] Not Available [employer] 30 gauge x / needle 02/21 completed Not Available Not Available [...] Ult-Fine II 1 mL 31 gauge x 04/05 completed Not Available Not Available Not Available [...] Not Available Vitals Date Recorded Body height Body temperature Respiratory rate Oxygen saturation Oxygen saturation in Arterial blood by Pulse oximetry Heart rate Systolic blood pressure Diastolic blood pressure Provider Name and Address Organization Details Last Updated DateTime 5 182.88 cm 98.3 [degF] 18 /min 98 % 98 % 76 /min 149 mm[Hg] 72 mm[Hg] Melissa Alvin [place] [facility] [place] [employer] 5 16:03:31 Social History Question Answer Notes LastModified by Organization Details LastModified Time Tobacco Smoking Status Never Smoker Not Available [facility] 01/19/2023 05:52:19 Do You Have An Advance Directive? No MIGRATION.0301 [id number] Information not available 01/19/2023 What Is Your Level Of Alcohol Consumption? Occasional MIGRATION.030 878396 Information not available 01/19/2023 Are You Blind Or Do You Have Difficulty Seeing? Yes MIGRATION.030 302210 Information not available 01/19/2023 What Is Your Level Of Caffeine Consumption? None MIGRATION.030 468163 Information not available 01/19/2023 In The 14 Days Before Symptom Onset, Have You Had Close Contact With A Laboratory-confi rmed COVID-19 While That Case Was Ill? No MIGRATION.030 243138 Information not available 01/19/2023 In The 14 Days Before Symptom Onset, Have You Had Close Contact With A Person Who Is Under Investigation For COVID-19 While That Person Was Ill? No MIGRATION.030 703570 Information not available 01/19/2023 Are You Deaf Or Do You Have Serious Difficulty Hearing? No MIGRATION.030 003242 Information not available 01/19/2023 What Type Of Diet Are You Following? REGULAR MIGRATION.030 833723 Information not available 01/19/2023 What Is The Highest Grade Or Level Of School You Have Completed Or The Highest Degree You Have Received? [id number] MIGRATION.030 937932 Information not available 01/19/2023 What Is Your Occupation? Retired MIGRATION.030 887975 Information not available 01/19/2023 Have There Been Any Changes To Your Family Or Social Situation? No MIGRATION.0301 270377 Information not available 01/19/2023 What Is The Fluoride Status Of Your Home? Unknown MIGRATION.0301 966806 Information not available 01/19/2023 Are There Any Guns Present In Your Home? Yes MIGRATION.0301 846606 Information not available 01/19/2023 Do You Use Insect Repellent Routinely? No MIGRATION.0301 443916 Information not available 01/19/2023 Where Do You Live? SingleLevelHouse With Basement MIGRATION.0301 796393 Information not available 01/19/2023 Do You Have A Medical Power Of Vacuum Cleaner Repairer? No MIGRATION.0301 343048 Information not available 01/19/2023 What Was The Date Of Your Most Recent Tobacco Screening? 10/24/2023 [email or web address] Information not available 10/24/2023 Do You Have Any Pets? Yes MIGRATION.0301 962348 Information not available 01/19/2023 What Is Your Relationship Status? MIGRATION.0301 390939 Information not available 01/19/2023 Do You Use Your Seat Belt Or Car Seat Routinely? Yes MIGRATION.0301 165515 Information not available 01/19/2023 Do You Have Smoke And Carbon Monoxide Detectors In Your Home? Yes MIGRATION.0301 189376 Information not available 01/19/2023 Are You Passively Exposed To Smoke? No MIGRATION.0301 274133 Information not available 01/19/2023 Are There Any Smokers In Your House? No MIGRATION.0301 557902 Information not available 01/19/2023 What Types Of Sporting Activities Do You Participate In? None MIGRATION.0301 257403 Information not available 01/19/2023 Do You Feel Stressed (tense, Restless, Nervous, Or Anxious, Or Unable To Sleep At Night)? [id number] MIGRATION.0301 739708 Information not available 01/19/2023 Do You Use Any Illicit Or Recreational Drugs? No MIGRATION.0301 311595 Information not available 01/19/2023 Do You Use Sunscreen Routinely? No MIGRATION.0301 198554 Information not available 01/19/2023 Has Tobacco Cessation Counseling Been Provided? No Not Needed-nev er Smoked MIGRATION.0301 507107 Information not available 01/19/2023 Have You Recently Traveled Abroad? No MIGRATION.0301 675429 Information not available 01/19/2023 Do You Have Any Dietary Restrictions? No MIGRATION.0301 047281 Information not available 01/19/2023 Do You Or Have You Ever Used Any Other Forms Of Tobacco Or Nicotine? No MIGRATION.0301 620623 Information not available 01/19/2023 Sex: Male Functional Status Question Answer Note LastModified by Organizat ion Details LastModified Time Do you have difficulty walking or climbing stairs? Yes MIGRATION.624710 4865 Information not available 01/19/2023 Do you have transportation difficulties? Yes Patient does not drive. MIGRATION.336189 2170 Information not available 01/19/2023 Are you able to walk? YESASSIST cane MIGRATION.938419 8180 Information not available 01/19/2023 Do you have difficulty doing errands alone? Yes Patient does not drive. MIGRATION.737573 2254 Information not available 01/19/2023 Are you able to care for yourself? Yes MIGRATION.987333 3040 Information not available 01/19/2023 Do you have difficulty dressing or bathing? No MIGRATION.148532 2890 Information not available 01/19/2023 What is your exercise level? None MIGRATION.873522 9695 Information not available 01/19/2023 Mental Status Question Answer Note LastModified by Organizat ion Details LastModified Time Do you have difficulty concentrating, remembering or making decisions? No MIGRATION.518758508 6 Information not available 01/19/2023 Family History Relationship Description Onset Age of this Age Resolved Age Notes LastModified by Organization Details LastModified Time Father Heart disease MIGRATION.971 [id number] Not available 01/19/2023 05:52:59 Mother Malignant tumor of breast MIGRATION.402 1788139 Not available 01/19/2023 05:52:59 Medical History Condition Response NERVE DISEASE N BLINDNESS N RHEUMATIC FEVER N KIDNEY STONES N BLADDER PROBLEMS N MRSA N OTHER # 1 N POLIO N LUNG DISEASE/DISORDER N HISTORY OF DRUG ABUSE N RADIATION / CHEMOTHERAPY N COPD N Other # 2 N BLOOD DISEASES N EAR OR HEARING PROBLEMS N MUMPS N SHINGLES N DEPRESSION (INCLUDING POST ) N BOWEL PROBLEMS N STROKE/TIA N ULCERS N BENIGN PROSTATIC [...] N CHRONIC PAIN SYNDROME N HYPOTHYROIDISM N CAROTID BLOCKAGE N CONSTIPATION N BACK / NECK PROBLEMS N HAVE YOU BEEN HOSPITALIZED OR SEEN IN [facility] IN THE PAST YEAR ? Y [...] preservative free, adsorbed 2 completed Not Available [facility] 01/01/2024 22:46:31 Past Encounters Encounter ID Performer Location Encounter Start Date Encounter Closed Date Diagnosis/Indication Diagnosis SNOMED-CT Code Diagnosis ICD10 Code Diagnosis Note [id number] Daniel Roland DPM [facility] [address] [place] [address] 02/13/2025 15:47:07 02/13/2025 18:00:05 Peripheral arterial occlusive disease 558516157 I73.9 report to emergency room secondary to multiple wounds and gangrene Diabetes mellitus 743657 09 E11.52 continue diabetic control per PCP recommenda tionsrepor t to emergency room for further evaluation and management secondary to gangrene Ulcer of r ight foot due to type 2 diabetes mellitus 3562112486 3533807 E11.621 Betadine wet-to-dry dressings daily-- applied today Ulcer of l eft foot due to type 2 diabetes mellitus 0193677730 6291575 E11.621 Betadine wet-to-dry dressings to open wounds daily-- applied todayrecom mend report to the emergency room for left digit gangrene Lymphedema of bilateral lower limbs 9212158580 1505446 I89.0 noncomplia nt with compressio n Health Concerns Section Related Observation LastModified by Organization Detai ls LastModified Time None Recorded Concern Status LastModified by Organization Details LastModified Time None Recorded Payers Encounter Date Sequence Insurance Name Policy Number Policy Mccrary Covered Member ID Mccrary Member ID Guarantor Name 02/13/2025 1 [facility] (MEDICARE REPLACEMENT/A DVANTAGE - PPO) [id number] Gildardo Kat [id number] Gildardo Kat Notes Date Note Type Note Provider Name and Address Organization Details Recorded Time 02/13/2025 text/html . Patient is a 70-year-old [...] denies any other complaints. Daniel Roland DPM [address] [address], [place], [address], [place] - [place] [employer] [facility] 02/13/2025 16:46:42
--- NOTE | 2025-02-14 16:13 | P.HP_ITS ---
H&P: HPI History of Present Illness Date/Time: 02/14/25 16:13 Chief Complaint: Foot Wound Narrative: 70 y/o M with PMH of DM2, CKD, previous diabetic foot infections, pacemaker, atrial fibrillation, CHF, BPH, hypothyroidism presents here with a diabetic foot infection (bilateral). The patient presents here from home via EMS for further evaluation of his diabetic foot wounds. He reports these have been ongoing for the past 2 years. This has been managed by his sonar watchstander who practices out of [place]. Last visit with provider yesterday, 02/13. During this visit the patient's sonar watchstander became concerned by the physical exam reporting to the patient that it appeared worse and that he needed to seek treatment and admission at the hospital. He typically receives his care at [facility], however he was advised to seek a different hospital for admission as [facility] will not take his insurance presently per patient. He has required surgical management previously, patient had a debridement of his right heel x3 at [facility] in 2022. He denies fever, chills, weakness, fatigue, chest pain, shortness of breath. The patient's diabetes is managed by his PCP Naif Hough MD in [place]. He denies any difficulty with glycemic control at home and no recent changes to his medications. Initial VS at presentation: 97.5? F, HR 71, RR 15, 143/76, and 97% on RA. ED workup showed: No leukocytosis, hemoglobin 8.0 (previously 8.7 on 06/2023), creatinine 2.75 and GFR 23 (previously 1.4 and GFR 50 on 06/2023), and lactic 1.4. Foot XR (L) showed erosion of the 5th metatarsal head suspicious for osteomyelitis. Review of Systems Review of Systems: All systems reviewed & are unremarkable except as noted in HPI and below PMFSH Past Medical History Medical History BPH (benign prostatic hyperplasia) HTN (hypertension) Congestive heart failure Atrial fibrillation/flutter Hypothyroidism Diabetes mellitus type 2 in obese Family History Family History Unknown Diabetes mellitus Social History Social History Smoking status: Never smoker Alcohol intake: former Substance use: never Do You Feel Safe in your Home?: Yes Lack of Transportation: No Lack of Food: Never True Current Housing: I Have Housing Concerned About Future Housing: No Difficulty Paying Gas/Electric Bills: No Difficulty Paying for Meds: No Currently Unemployed: No Education: High School Diploma/GED Difficulty w/ Childcare or Family Care: No Spiritual care concerns: No Meds Home Medications and Allergies Home Medications ?Medication ?Instructions ?Recorded ?Confirmed ?Type atorvastatin 20 mg tablet 20 mg PO HS 06/30/23 02/14/25 History acetaminophen 325 mg tablet (Mapap 650 mg (2 x 325 mg) PO Q6H PRN 07/01/23 02/14/25 Rx (acetaminophen)) Pain Rated 5 Or Less #30 tabs amiodarone 200 mg tablet (Pacerone) 200 mg PO Q12HR #60 tabs 07/01/23 02/14/25 Rx amlodipine 2.5 mg tablet 2.5 mg PO DAILY #30 tabs 07/01/23 02/14/25 Rx aspirin 81 mg chewable tablet 81 mg PO DAILY@0800 #30 tabs 07/01/23 02/14/25 Rx (Children's Aspirin) calcium carbonate 500 mg PO Q6H PRN Indigestion #30 07/01/23 02/14/25 Rx tabs cholecalciferol (vitamin D3) 1,250 50,000 unit PO WEEKLY #4 caps 07/01/23 02/14/25 Rx mcg (50,000 unit) capsule cyclobenzaprine 10 mg tablet 5 mg (1/2 x 10 mg) PO Q8H PRN 07/01/23 02/14/25 Rx Muscle Spasm #30 tabs famotidine 20 mg tablet 20 mg PO DAILY #30 tabs 07/01/23 02/14/25 Rx ipratropium 0.5 mg-albuterol 3 mg 3 ml inhalation Q6HRT #60 mL 07/01/23 02/14/25 Rx (2.5 mg base)/3 mL nebulization soln levothyroxine 50 mcg tablet 50 mcg PO DAILY@0630 #30 tabs 07/01/23 02/14/25 Rx (Synthroid) metoprolol tartrate 25 mg tablet 25 mg PO Q12HR #60 tabs 07/01/23 02/14/25 Rx ramelteon 8 mg tablet 8 mg PO HS #30 tabs 07/01/23 02/14/25 Rx sennosides 8.6 mg-docusate sodium 1 tab PO HS #30 tabs 07/01/23 02/14/25 Rx 50 mg tablet (Senokot-S) sodium hypochlorite 0.25 % 1 applic topical BID #10 mL 07/01/23 02/14/25 Rx solution (Dakin's Solution) tamsulosin 0.4 mg capsule 0.4 mg PO QAM #30 caps 07/01/23 02/14/25 Rx tramadol 50 mg tablet 50 mg PO Q8H PRN Pain Rated 4-6 07/01/23 02/14/25 Rx #20 tabs albuterol 90 mcg/actuation aerosol 90 mcg inhalation .q4hr PRN 02/14/25 02/14/25 History inhaler shortness of breath apixaban 5 mg tablet (Eliquis) 5 mg PO BID 02/14/25 02/14/25 History bumetanide 1 mg tablet 1 mg PO BID 02/14/25 02/14/25 History insulin glargine 100 unit/mL (3 25 unit subcut .q12hr 02/14/25 02/14/25 History mL) subcutaneous pen (Basaglar KwikPen U-100 Insulin) insulin lispro 100 unit/mL 10 unit subcut TIDWM 02/14/25 02/14/25 History subcutaneous pen (Humalog KwikPen (U-100) Insulin) metolazone 2.5 mg tablet 2.5 mg PO QMWF 02/14/25 02/14/25 History Allergies Allergy/AdvReac Type Severity Reaction Status Date / Time No Known Allergies Allergy Verified 02/14/25 12:05 Vital Signs Vital Signs - 24 hr 02/14/25 11:54 02/14/25 12:31 02/14/25 13:05 Temperature 97.5 F L Pulse Rate 71 75 71 Respiratory Rate 15 13 18 Blood Pressure 143/76 H 168/67 H Pulse Oximetry 97 98 98 Oxygen Delivery Room Air 02/14/25 13:30 02/14/25 13:46 02/14/25 14:16 Temperature Pulse Rate 76 76 62 Respiratory Rate 16 16 14 Blood Pressure 159/74 H 178/84 H 162/73 H Pulse Oximetry 98 100 100 Oxygen Delivery 02/14/25 15:27 Temperature 97.3 F L Pulse Rate 79 Respiratory Rate 16 Blood Pressure 173/87 H Pulse Oximetry 99 Oxygen Delivery Exam Const: General: comfortable and no acute distress Other: , male, obese body habitus, nontoxic appearance HENMT: Face/Nose/Sinus: Normal nares present Mouth: Yes moist mucous membranes Eyes: General: appearance normal, both eyes and all related structures Sclera: sclerae normal Pupils: Equal, round and reactive pupils present EOM: EOMs intact bilaterally Resp: Effort & Inspection: normal respiratory effort Auscultation: clear to auscultation bilaterally Cardio: Rate: regular rate Rhythm: regular rhythm Other: S1-S2 present without murmur, rub, ectopy GI: Other: Abdomen rounded, soft, nontender. Normoactive bowel sounds in all quadrants. Skin: Other: Right foot and distal aguilera with sloughing and erythema. Fourth toe blackened, gangrenous. DP pulse nonpalpable, faintly dopplerable. Left foot with flaking skin without sloughing. Third 4th and 5th toe on the left also have blackened discoloration, gangrenous. DP pulse nonpalpable, family dopplerable. Neuro: Speech: normal speech Sensory Exam: normal sensation Other: Generalized weakness. A&O x4. Extrem: General: normal exam except as noted Other: 2+ pitting edema, symmetric. Psych: Mental Status: mental status grossly normal Affect: normal affect Other: Fair insight and judgment, pleasant H&P: Results Labs Labs: Short CBC 02/14/25 Range/Units 12:19 WBC 8.6 (4.5-10.0) K/mm3 Hgb 8.0 L (14.0-18.0) g/dL Hct 27.3 L (42.0-52.0) % Plt Count 371 (150-375) k/mm3 BMP 02/14/25 12:19 Sodium 142 Potassium 3.7 Chloride 102 Carbon Dioxide 23 BUN 90 H D Creatinine 2.75 H Glucose 217 H Calcium 8.9 Liver Function 02/14/25 Range/Units 12:19 Total Bilirubin 0.5 (0.2-1.3) mg/dL AST 19 (17-59) U/L ALT 17 (6-50) U/L Alkaline Phosphatase 95 (38-126) U/L Albumin 3.8 (3.5-5.1) g/dL Assessment and Plan Assessment and plan (1) Diabetic foot ulcer with osteomyelitis: Code(s): E11.621 - Type 2 diabetes mellitus with foot ulcer; E11.69 - Type 2 diabetes mellitus with other specified complication; L97.509 - Non-pressure chronic ulcer of other part of unspecified foot with unspecified severity; M86.9 - Osteomyelitis, unspecified Status: Acute Assessment and Plan: - foot XR (L): Erosion fifth metatarsal head, suspicious for osteomyelitis. Consider correlation with MRI with contrast. - started on ceftriaxone, metronidazole, and vancomycin on 02/14 - general surgery consulted, awaiting formal recs - tight glycemic control - wound RN consulted - antipyretics and analgesics p.r.n. - hold [place] Allen - obtain culture - NPO at midnight (2) Diabetes mellitus type 2 in obese: Code(s): E11.69 - Type 2 diabetes mellitus with other specified complication; E66.9 - Obesity, unspecified Status: Chronic Assessment and Plan: - hypoglycemia protocol - POC blood glucose ACHS - home medication: Lantus 25 units b.i.d., lispro 10 units t.i.d. WM - correct regimen ordered - high dose TIDWM and HS, based off BMI - A1C 5.6% in 2022, update (3) HTN (hypertension): Qualifiers: Hypertension type: primary hypertension Qualified Code(s): I10 - Essential (primary) hypertension Code(s): I10 - Essential (primary) hypertension Status: Chronic Assessment and Plan: - chronic, currently 173/87 - not currently on any medications, is on a diuretic - Bumex b.i.d. - monitor Plan Diet: Diabetic, NPO midnight GI Prophylaxis: Not currently indicated DVT Prophylaxis: SCDs Lines: Peripheral Code Status: Full code Quality VTE Prophylaxis VTE prophylaxis: mechanical ordered Hospitalist [facility] Advance Care Plan I have confirmed that the patient's Advanced Care Plan is present, code status is documented, or surrogate decision maker is listed in patient medical record.: Yes Medication Reconciliation I have utilized all available resources to obtain, update and review the patients current medications (includes all prescriptions, OTC, herbals, cannabis, and nutritional supplements).: Yes
[2025-02-14 17:21] LABS: Glucose Point of Care 142 mg/dl (65-105)
[2025-02-14] MEDS: CEFEPIME 2 GM/NS 50 ML 2 GM/50 ML BAG IVPB (17:30)
[2025-02-14] MEDS: LACTATED RINGERS 1,000 ML 125 ML IV CONT (17:30)
--- NOTE | 2025-02-14 17:52 | PM.CNGS ---
Assessment and Plan Assessment and plan (1) Diabetes mellitus with diabetic peripheral angiopathy with gangrene, with long-term current use of insulin: Qualifiers: Diabetes mellitus type: type 2 Qualified Code(s): E11.52 - Type 2 diabetes mellitus with diabetic peripheral angiopathy with gangrene; Z79.4 - assistant terminal manager (current) use of insulin Code(s): E11.52 - Type 2 diabetes mellitus with diabetic peripheral angiopathy with gangrene; Z79.4 - assistant terminal manager (current) use of insulin Status: Chronic Assessment and Plan: Patient with severe peripheral vascular disease, no palpable pulses, weak or faint pulses by pulsed Doppler. Blackened toes could be chronic due to diabetic vascular disease. Cannot assess whether toe amputation would heal. Recommend transfer to facility where vascular surgery is available. There is no urgent need to proceed with amputation as the gangrene is dry and no evidence of cellulitis or soft tissue infection. I tried to call hospitalist Claritza Ace with the phone number given to me by nursing but the call went to voicemail. I would not feel comfortable with toe amputation or more proximal amputation without adequate vascular eval. Little for me to do. Recommend transfer. (2) Gangrene: Code(s): I96 - Gangrene, not elsewhere classified Status: Acute Assessment and Plan: Multiple tip ulcers on right foot, namely toes 1 2 and 3. Distal gangrenous change on right toe 4 to the interphalangeal joint. On the left foot, there is gangrenous change to the interphalangeal joint of toes 4 and 5. The left 3rd toe shows gangrenous change only in the distal phalanx. Gangrenous change is likely due to peripheral vascular and microvascular disease but the possibility of atherosclerotic or cardiac emboli as the source should be considered. With the patient's chronic renal insufficiency, I would not be comfortable ordering CT angiogram here to evaluate as this testing should be done where vascular surgery is available and participating in the care. (3) Chronic renal insufficiency, stage III (moderate): Code(s): N18.30 - Chronic kidney disease, stage 3 unspecified Status: Acute Assessment and Plan: Appears to be acute on chronic acute renal failure. We do not have any more recent creatinine then 2022 when the creatinine was 1.5. Currently, creatinine is 2.75 and BUN is 90. Studies with intravenous contrast would be extremely hazardous. (4) Profound vision impairment both eyes: Code(s): H54.0X33 - Blindness right eye category 3, blindness left eye category 3 Status: Chronic Assessment and Plan: Patient tells me he has little or no site in his eyes. Only can see vague shapes and light (5) Wheelchair dependence: Code(s): Z99.3 - Dependence on wheelchair Status: Chronic Assessment and Plan: Nonambulatory for years. 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 He is an insulin dependent diabetic and also has a history of atrial fibrillation. He is on anticoagulation with apixaban 5 mg twice a day. Patient's noticed that he has developed black and toes over the last couple of weeks. Patient does not have an pain associated with this but does have neuropathy. 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 He saw his roof cement and paint maker helper yesterday about the blackened toes and was told to come to the emergency room at [facility] due to some insurance benefits. Also significant is that the patient has not been able to ambulate for a long time. He came to the emergency room today. He was noted to have blackend distal right 4th toe and blackend distal 4th and 5th toes on the left foot. The emergency room physician called me for consultation and I was told the patient has pulses. He is admitted for gangrenous changes of multiple toes. When I saw the patient in consultation on the inpatient floor, nursing discussed with me that his pulses were only Doppler pulses. Patient has been taking his Eliquis. Review of Systems Review of Systems: All systems reviewed & are unremarkable except as noted in HPI and below (HPI and past medical history) [facility] Past Medical History Medical History BPH (benign prostatic hyperplasia) HTN (hypertension) Congestive heart failure Atrial fibrillation/flutter Hypothyroidism Diabetes mellitus type 2 in obese Family History Family History Unknown Diabetes mellitus Social History Social History Smoking status: Never smoker Alcohol intake: former Substance use: never Do You Feel Safe in your Home?: Yes Lack of Transportation: No Lack of Food: Never True Current Housing: I Have Housing Concerned About Future Housing: No Difficulty Paying Gas/Electric Bills: No Difficulty Paying for Meds: No Currently Unemployed: No Education: High School Diploma/GED Difficulty w/ Childcare or Family Care: No Spiritual care concerns: No Meds Home Medications and Allergies Home Medications ?Medication ?Instructions ?Recorded ?Confirmed ?Type atorvastatin 20 mg tablet 20 mg PO HS 06/30/23 02/14/25 History acetaminophen 325 mg tablet (Mapap 650 mg (2 x 325 mg) PO Q6H PRN 07/01/23 02/14/25 Rx (acetaminophen)) Pain Rated 5 Or Less #30 tabs amiodarone 200 mg tablet (Pacerone) 200 mg PO Q12HR #60 tabs 07/01/23 02/14/25 Rx amlodipine 2.5 mg tablet 2.5 mg PO DAILY #30 tabs 07/01/23 02/14/25 Rx aspirin 81 mg chewable tablet 81 mg PO DAILY@0800 #30 tabs 07/01/23 02/14/25 Rx (Children's Aspirin) calcium carbonate 500 mg PO Q6H PRN Indigestion #30 07/01/23 02/14/25 Rx tabs cholecalciferol (vitamin D3) 1,250 50,000 unit PO WEEKLY #4 caps 07/01/23 02/14/25 Rx mcg (50,000 unit) capsule cyclobenzaprine 10 mg tablet 5 mg (1/2 x 10 mg) PO Q8H PRN 07/01/23 02/14/25 Rx Muscle Spasm #30 tabs famotidine 20 mg tablet 20 mg PO DAILY #30 tabs 07/01/23 02/14/25 Rx ipratropium 0.5 mg-albuterol 3 mg 3 ml inhalation Q6HRT #60 mL 07/01/23 02/14/25 Rx (2.5 mg base)/3 mL nebulization soln levothyroxine 50 mcg tablet 50 mcg PO DAILY@0630 #30 tabs 07/01/23 02/14/25 Rx (Synthroid) metoprolol tartrate 25 mg tablet 25 mg PO Q12HR #60 tabs 07/01/23 02/14/25 Rx ramelteon 8 mg tablet 8 mg PO HS #30 tabs 07/01/23 02/14/25 Rx sennosides 8.6 mg-docusate sodium 1 tab PO HS #30 tabs 07/01/23 02/14/25 Rx 50 mg tablet (Senokot-S) sodium hypochlorite 0.25 % 1 applic topical BID #10 mL 07/01/23 02/14/25 Rx solution (Dakin's Solution) tamsulosin 0.4 mg capsule 0.4 mg PO QAM #30 caps 07/01/23 02/14/25 Rx tramadol 50 mg tablet 50 mg PO Q8H PRN Pain Rated 4-6 07/01/23 02/14/25 Rx #20 tabs albuterol 90 mcg/actuation aerosol 90 mcg inhalation .q4hr PRN 02/14/25 02/14/25 History inhaler shortness of breath apixaban 5 mg tablet (Eliquis) 5 mg PO BID 02/14/25 02/14/25 History bumetanide 1 mg tablet 1 mg PO BID 02/14/25 02/14/25 History insulin glargine 100 unit/mL (3 25 unit subcut .q12hr 02/14/25 02/14/25 History mL) subcutaneous pen (Basaglar KwikPen U-100 Insulin) insulin lispro 100 unit/mL 10 unit subcut TIDWM 02/14/25 02/14/25 History subcutaneous pen (Humalog KwikPen (U-100) Insulin) metolazone 2.5 mg tablet 2.5 mg PO QMWF 02/14/25 02/14/25 History Allergies Allergy/AdvReac Type Severity Reaction Status Date / Time No Known Allergies Allergy Verified 02/14/25 12:05 Vital Signs Vital Signs - 24 hr 02/14/25 11:54 02/14/25 12:31 02/14/25 13:05 Temperature 36.4 C L Pulse Rate 71 75 71 Respiratory Rate 15 13 18 Blood Pressure 143/76 H 168/67 H Pulse Oximetry 97 98 98 Oxygen Delivery Room Air 02/14/25 13:30 02/14/25 13:46 02/14/25 14:16 Temperature Pulse Rate 76 76 62 Respiratory Rate 16 16 14 Blood Pressure 159/74 H 178/84 H 162/73 H Pulse Oximetry 98 100 100 Oxygen Delivery 02/14/25 15:27 02/14/25 15:59 Temperature 36.3 C L Pulse Rate 79 Respiratory Rate 16 Blood Pressure 173/87 H Pulse Oximetry 99 Oxygen Delivery Room Air Exam Const: General: comfortable, awake and obese; No acute distress Orientation/consciousness: No confusion Cardio: Peripheral pulses: femoral pulses present bilateral 3+, posterior tibial pulses not present and dorsalis pedis pulses not present Other: Hand-held pulse Doppler was used to assess the nonpalpable pulses in both feet. Patient has a biphasic left posterior tibial pulse. The dorsalis pedis pulse on the left is barely biphasic. The right posterior tibial pulse is faintly biphasic and the right dorsalis pedis is monophasic. GI: Inspection: other (Severe yeast both groins and panniculus, as antifungal treatment in place) GI Palp: Yes Soft to palpation and No Tenderness to palpation present (GI) Extrem: Right lower extremity: edema, ankle (Sloughing epithelium some superficial excoriation) and foot (4th toe dry gangrene to PIP joint) Details: edema, vascular exam (Monophasic dorsalis pedis, faint biphasic posterior tibial) Details: dorsalis pedis pulse absent and posterior tibial pulse absent and other (Distal tip ulceration 1st 2nd 3rd toes, no gangrene) Left lower extremity: edema, ankle (Same dry flaking skin, no excoriation noted) and foot (Dry gangrene tip 3rd toe, to interphalangeal joint 4th and 5th toes) Details: edema and vascular exam (Pulses not palpable, biphasic posterior tibial, faint biphasic DP); no crepitus Psych: Speech and movement: Clear speech present Affect: normal affect Attitude: cooperative Results Labs 02/14/25 12:19 02/14/25 12:19 Labs: Abnormal lab results 02/14/25 02/14/25 02/14/25 Range/Units 12:07 12:19 17:15 RBC 3.14 L (4.6-6.20) M/mm3 Hgb 8.0 L (14.0-18.0) g/dL Hct 27.3 L (42.0-52.0) % MCH 25.5 L (26-34) pg MCHC 29.3 L (32-36) g/dl RDW 14.6 H (11.5-14.5) % Immature Gran % (Auto) 0.7 H (0-0.5) % Lymph % (Auto) 17.2 L (18.3-44.2) % Abs Immat Gran (auto) 0.06 H (0.00-0.031) K/mm3 Anion Gap 17 H (4-12) mmol/L BUN 90 H D (9-20) mg/dL Creatinine 2.75 H (0.7-1.3) mg/dL Estimated GFR 23 L (59 - ) Glucose 217 H (65-110) mg/dL POC Capillary Glucose 198 H 142 H (65-105) mg/dl Diabetes panel 02/14/25 Range/Units 12:19 Sodium 142 (137-145) mmol/L Potassium 3.7 (3.4-5.0) mmol/L Chloride 102 (98-107) mmol/L Carbon Dioxide 23 (22-30) mmol/L BUN 90 H D (9-20) mg/dL Creatinine 2.75 H (0.7-1.3) mg/dL Glucose 217 H (65-110) mg/dL Calcium 8.9 (8.4-10.2) mg/dL AST 19 (17-59) U/L ALT 17 (6-50) U/L Alkaline Phosphatase 95 (38-126) U/L Total Protein 8.0 (6.3-8.2) g/dL Albumin 3.8 (3.5-5.1) g/dL Calcium panel 02/14/25 Range/Units 12:19 Calcium 8.9 (8.4-10.2) mg/dL Albumin 3.8 (3.5-5.1) g/dL Pituitary panel 02/14/25 Range/Units 12:19 Sodium 142 (137-145) mmol/L Potassium 3.7 (3.4-5.0) mmol/L Chloride 102 (98-107) mmol/L Carbon Dioxide 23 (22-30) mmol/L BUN 90 H D (9-20) mg/dL Creatinine 2.75 H (0.7-1.3) mg/dL Glucose 217 H (65-110) mg/dL Calcium 8.9 (8.4-10.2) mg/dL Adrenal panel 02/14/25 Range/Units 12:19 Sodium 142 (137-145) mmol/L Potassium 3.7 (3.4-5.0) mmol/L Chloride 102 (98-107) mmol/L Carbon Dioxide 23 (22-30) mmol/L BUN 90 H D (9-20) mg/dL Creatinine 2.75 H (0.7-1.3) mg/dL Glucose 217 H (65-110) mg/dL Calcium 8.9 (8.4-10.2) mg/dL Total Bilirubin 0.5 (0.2-1.3) mg/dL AST 19 (17-59) U/L ALT 17 (6-50) U/L Alkaline Phosphatase 95 (38-126) U/L Total Protein 8.0 (6.3-8.2) g/dL Albumin 3.8 (3.5-5.1) g/dL All other labs normal.
[2025-02-14] MEDS: ATORVASTATIN 20 MG TABLET PO (21:06)
[2025-02-14] MEDS: MELATONIN 5 MG TABLET PO (21:06)
[2025-02-14 21:15] LABS: Glucose Point of Care 124 mg/dl (65-105)
[2025-02-15] MEDS: metroNIDAZOLE 500 MG/ISO 100ML 500 MG/100 ML BAG 100 MG IVPB ×2 (02:10→11:04)
[2025-02-15] MEDS: LACTATED RINGERS 1,000 ML 125 ML IV CONT ×2 (02:10→14:46)
[2025-02-15 03:43] VITALS: BP 135/65; PULSE 70; RESP 20; TEMP 36.7; O2SAT 94
[2025-02-15] MEDS: CEFEPIME 1 GM/NS 50 ML 1 GM/50 ML BAG IVPB (05:41)
[2025-02-15] MEDS: LEVOTHYROXINE SODIUM 50 MCG TABLET PO (05:41)
[2025-02-15 05:46] LABS: Basophils Absolute Auto 0.1 K/mm3 (0.0-0.1); Basophils Percent Auto 0.8 % (0.2-1.2); Eosinophils Absolute Auto 0.2 K/mm3 (0-0.3); Eosinophils Percent Auto 3.1 % (0-4.4); Hematocrit 25.4 % (42.0-52.0); Hemoglobin 7.3 g/dL (14.0-18.0); Immature Granulocyte Absolute 0.05 K/mm3 (0.00-0.031); Immature Granulocyte Percent A 0.6 % (0-0.5); Lymphocytes Absolute Auto 1.32 K/mm3 (0.9-3.2); Mean Corpuscular HGB Conc 28.7 g/dl (32-36); Mean Corpuscular Hemoglobin 25.3 pg (26-34); Mean Corpuscular Volume 87.9 fl (80-100); Mean Platelet Volume 8.8 fl (7.4-10.4); Monocytes Absolute Auto 0.5 K/mm3 (0.1-0.6); Neutrophils Absolute Auto 5.6 K/mm3 (1.3-6.7); Neutrophils Percent Auto 72.5 % (45.5-73.1); Platelet Count Result 330 k/mm3 (150-375); Red Blood Count 2.89 M/mm3 (4.6-6.20); Red Cell Distribution Width 14.5 % (11.5-14.5); White Blood Count 7.8 K/mm3 (4.5-10.0)
[2025-02-15 05:55] LABS: Hemoglobin A1C 7.5 % (<5.7)
[2025-02-15 06:08] LABS: INR 1.5; Prothrombin Time 18.7 Seconds (11.1-14.7)
[2025-02-15 06:09] LABS: Partial Thromboplastin Time 39.5 Seconds (22.3-36.8)
[2025-02-15 06:09] LABS: Alanine Aminotransferase 12 U/L (6-50); Albumin Level 3.2 g/dL (3.5-5.1); Alkaline Phosphatase 86 U/L (38-126); Anion Gap 11 mmol/L (4-12); Aspartate Amino Transferase 18 U/L (17-59); Bilirubin,Total 0.3 mg/dL (0.2-1.3); Blood Urea Nitrogen 77 mg/dL (9-20); CRP 3.9 mg/dL (<1.0); Calcium 8.6 mg/dL (8.4-10.2); Carbon Dioxide 24 mmol/L (22-30); Chloride 107 mmol/L (98-107); Estimated CRCL calculation 42 ml/min; Estimated Glomerular Filt Rate 31; Glucose 114 mg/dL (65-110); Potassium 3.6 mmol/L (3.4-5.0); Sodium 142 mmol/L (137-145)
[2025-02-15 06:33] LABS: Anisocytosis 1+; Platelet Estimate Adequate (Adequate); Schistocytes None Seen
[2025-02-15 08:46] LABS: Glucose Point of Care 107 mg/dl (65-105)
[2025-02-15] MEDS: TAMSULOSIN HCL 0.4 MG CAPSULE PO (09:33)
[2025-02-15] MEDS: ENOXAPARIN 40 MG/0.4 ML SYRINGE SUB-Q (09:33)
[2025-02-15] MEDS: FAMOTIDINE 20 MG TABLET PO (09:33)
[2025-02-15] MEDS: INSULIN GLARGINE (*BKC) 100 UNITS/ML 25 UNITS SUB-Q (10:00)
[2025-02-15 11:35] LABS: Glucose Point of Care 143 mg/dl (65-105)
[2025-02-15] MEDS: INSULIN ASPART (*BKC) 100 UNITS/ML 10 UNITS SUB-Q (12:30)
--- NOTE | 2025-02-15 13:00 | P.PNIM_ITS ---
Progress Note: A&P Assessment and Plan (1) Diabetic foot ulcer with osteomyelitis: Code(s): E11.621 - Type 2 diabetes mellitus with foot ulcer; E11.69 - Type 2 diabetes mellitus with other specified complication; L97.509 - Non-pressure chronic ulcer of other part of unspecified foot with unspecified severity; M86.9 - Osteomyelitis, unspecified Status: Acute Assessment and Plan: - foot XR (L): Erosion fifth metatarsal head, suspicious for osteomyelitis. Consider correlation with MRI with contrast. - started on ceftriaxone, metronidazole, and vancomycin on 02/14 - tight glycemic control - wound RN consulted - antipyretics and analgesics p.r.n. - hold [facility] consult noted and appreciated. Transfer recommended. Patient and family agree to be transferred and request [facility] system. Called to [facility] and patient was accepted for transfer. (2) Acute kidney injury superimposed on CKD: Code(s): N17.9 - Acute kidney failure, unspecified; N18.9 - Chronic kidney disease, unspecified Status: Acute Assessment and Plan: Cr ini 2022 was around 1.5. Cr here was 2.75. IV fluids started and Bumex, metolazone held for now. Cr better. Follow (3) Anemia: Code(s): D64.9 - Anemia, unspecified Status: Acute Assessment and Plan: Patietn with acute on chronic anemia. Plan for anemia workup if no bed available today. (4) Diabetes mellitus type 2 in obese: Code(s): E11.69 - Type 2 diabetes mellitus with other specified complication; E66.9 - Obesity, unspecified Status: Chronic Assessment and Plan: - hypoglycemia protocol - POC blood glucose ACHS - home medication: Lantus 25 units b.i.d., lispro 10 units t.i.d. WM - correct regimen ordered - high dose TIDWM and HS, based off BMI - A1C 7.5% here (5) HTN (hypertension): Qualifiers: Hypertension type: primary hypertension Qualified Code(s): I10 - Essential (primary) hypertension Code(s): I10 - Essential (primary) hypertension Status: Chronic Assessment and Plan: Patient's blood pressure was reviewed on 02/15 Blood pressure better controlled. Will continue to monitor Plan DVT Prophylaxis: Lovenox Code Status: Full code Subjective Date/time seen: 02/15/25 13:00 Interval history: 70yo male DM2, CKD, previous diabetic foot infections, pacemaker, atrial fibrillation, CHF, BPH, hypothyroidism presents here with a diabetic foot infection (bilateral). Slept okay. No n/v. No CP or SOB. Has pain bilateral toes. Exam Narrative: AF 98.0 135/65 70 20 94% ra Gen - NARD HEENT - evidence of old head trauma. right eye sclera injected Chest - bibasilar crackles, nml RR CV - RRR S1/S2; JVP not distended Abd - Soft, NT/ND, Positive BS Ext - 1+ pedal edema. difficult to palpate distal pulses Psych - Nml mood and affect Skin - Warm and dry. Necrotic toes left 3rd, 4th and right 4th. Right 5th toe pale. Bilateral LE minimal thick scale and pink erythema but not warm to touch. R>L bilateral heel ulcer with dark eschar Objective Data Vital Signs Vital Signs: Vital Signs - 24 hr 02/14/25 13:05 02/14/25 13:30 02/14/25 13:46 Temperature Pulse Rate 71 76 76 Respiratory Rate 18 16 16 Blood Pressure 159/74 H 178/84 H Pulse Oximetry 98 98 100 Oxygen Delivery 02/14/25 14:16 02/14/25 15:27 02/14/25 15:59 Temperature 97.3 F L Pulse Rate 62 79 Respiratory Rate 14 16 Blood Pressure 162/73 H 173/87 H Pulse Oximetry 100 99 Oxygen Delivery Room Air 02/14/25 21:07 02/14/25 22:00 02/15/25 03:43 Temperature 97.5 F L 98.0 F Pulse Rate 66 70 Respiratory Rate 20 20 Blood Pressure 167/71 H 135/65 Pulse Oximetry 98 98 94 Oxygen Delivery Room Air 02/15/25 09:47 Temperature Pulse Rate Respiratory Rate Blood Pressure Pulse Oximetry Oxygen Delivery Room Air Intake/Output Intake/Output: Intake & Output 02/12/25 02/13/25 02/14/25 02/15/25 23:59 23:59 23:59 23:59 Intake Total 1600 1586 Output Total 1700 1550 Balance -100 36 Meds/Results Medications: Active Medications Generic Name Dose Route Start Last Admin Trade Name Freq PRN Reason Stop Dose Admin Acetaminophen 650 mg 02/14/25 14:04 02/14/25 14:30 Acetaminophen 325 Mg Tablet PO 650 mg Q4H PRN Administration Mild Pain (1-3) or Fever Hydrocodone Bitart/Acetaminophen 1 tab 02/14/25 16:37 Hydrocodone/Acetaminophen (*Crx) 5-325 Mg Tablet PO Q6H PRN Pain Rated 4-6 Albuterol 2 puff 02/14/25 19:01 Albuterol Sulfate (*Sp) Aerosol 1 Puff INHALATION Q4HRT PRN shortness of breath Atorvastatin Calcium 20 mg 02/14/25 21:00 02/14/25 21:06 Atorvastatin 20 Mg Tablet PO 20 mg HS TORY Administration Bumetanide 1 mg 02/15/25 09:00 Bumetanide 1 Mg Tablet PO BID TORY Calcium Carbonate 500 mg 02/14/25 18:51 Calcium Carbonate (Tums) 500 Mg (200 Mg Elemental) PO Q6H PRN Indigestion Dextrose 12.5 gm 02/14/25 16:33 Dextrose 50% 25 Gm/50 Ml Syringe IV PUSH PRN PRN Hypoglycemia Protocol Enoxaparin Sodium 40 mg 02/15/25 09:00 02/15/25 09:33 Enoxaparin 40 Mg/0.4 Ml Syringe SUB-Q 40 mg DAILY TORY Administration Famotidine 20 mg 02/15/25 09:00 02/15/25 09:33 Famotidine 20 Mg Tablet PO 20 mg DAILY TORY Administration Glucagon 1 mg 02/14/25 16:33 Glucagon For Inj 1 Mg Vial IM PRN PRN Hypoglycemia Protocol Glucose 15 gm 02/14/25 16:33 Glucose Oral Gel 15 Gm Of Glucse In 37.5 Gm Tube PO PRN PRN Hypoglycemia Protocol Lactated Ringer's 1,000 mls @ 125 mls/hr 02/14/25 14:05 02/15/25 02:10 Lr - Lactated Ringers Iv IV CONT 125 mls/hr .Q8H TORY Administration Dextrose 1,000 mls @ 100 mls/hr 02/14/25 16:33 Dextrose 5% 1,000 Ml IVPB PRN PRN Hypoglycemia Protocol Metronidazole 500 mg in 100 mls @ 100 mls/hr 02/14/25 19:00 02/15/25 11:04 Flagyl 500 Mg/Iso Soln 100 Ml IVPB 100 mls/hr Q8H TORY Administration Cefepime HCl 1 gm in 50 mls @ 100 mls/hr 02/15/25 06:00 02/15/25 05:41 Maxipime 1 Gm/Ns 50 Ml IVPB 100 mls/hr Q12H TORY Administration Insulin Aspart 4 - 8 units 02/14/25 17:00 02/15/25 12:33 Insulin Aspart (*Bkc) 100 Units/Ml SUB-Q Not Given TIDWM [facility] Protocol Insulin Aspart 2 - 4 units 02/14/25 21:00 02/14/25 21:12 Insulin Aspart (*Bkc) 100 Units/Ml SUB-Q Not Given HS [facility] Protocol Insulin Aspart 10 units 02/15/25 08:00 02/15/25 12:30 Insulin Aspart (*Bkc) 100 Units/Ml SUB-Q 10 units TIDWM TORY Administration Insulin Glargine 25 units 02/15/25 09:00 02/15/25 10:00 Insulin Glargine (*Bkc) 100 Units/Ml SUB-Q 25 units Q12HR TORY Administration Levothyroxine Sodium 50 mcg 02/15/25 06:30 02/15/25 05:41 Levothyroxine Sodium 50 Mcg Tablet PO 50 mcg DAILY@0630 [facility] Administration Metolazone 2.5 mg 02/15/25 09:00 Metolazone 2.5 Mg Tablet PO MoWeFr [facility] Ondansetron HCl 4 mg 02/14/25 14:04 Ondansetron Inj 4 Mg/2 Ml Vial IV PUSH Q4H PRN Nausea Tamsulosin HCl 0.4 mg 02/15/25 09:00 02/15/25 09:33 Tamsulosin Hcl 0.4 Mg Capsule PO 0.4 mg QAM [facility] Administration Radiology Results: ITS Impressions Foot X-Ray 02/14/25 13:23 Impression: 1: Erosion fifth metatarsal head, suspicious for osteomyelitis. Consider correlation with MRI with contrast. Labs Labs: Laboratory Results - last 24 hr 02/14/25 02/14/25 02/14/25 12:19 13:29 17:15 WBC 8.6 RBC 3.14 L Hgb 8.0 L Hct 27.3 L MCV 86.9 MCH 25.5 L MCHC 29.3 L RDW 14.6 H Plt Count 371 MPV 9.3 Immature Gran % (Auto) 0.7 H Neut % (Auto) 73.0 Lymph % (Auto) 17.2 L [place] % (Auto) 5.5 Eos % (Auto) 2.8 Baso % (Auto) 0.8 Lymph # (Auto) 1.48 [place] # (Auto) 0.5 Eos # (Auto) 0.2 Baso # (Auto) 0.1 Abs Immat Gran (auto) 0.06 H Absolute Neuts (auto) 6.3 Absolute Nucleated RBC 0.000 Band Neutrophils % Not Reportable Nucleated RBC % 0.0 Platelet Estimate Adequate Hypochromasia 1+ Anisocytosis 1+ Schistocytes None seen PT INR APTT Sodium Potassium Chloride Carbon Dioxide Anion Gap BUN Creatinine Estim Creat Clear Calc Estimated GFR Glucose POC Capillary Glucose 142 H Hemoglobin A1c Lactic Acid 1.4 Calcium Total Bilirubin AST ALT Alkaline Phosphatase C-Reactive Protein Total Protein Albumin 02/14/25 02/15/25 02/15/25 21:11 05:40 05:41 WBC 7.8 RBC 2.89 L Hgb 7.3 L Hct 25.4 L MCV 87.9 MCH 25.3 L MCHC 28.7 L RDW 14.5 Plt Count 330 MPV 8.8 Immature Gran % (Auto) 0.6 H Neut % (Auto) 72.5 Lymph % (Auto) 17.0 L [place] % (Auto) 6.0 Eos % (Auto) 3.1 Baso % (Auto) 0.8 Lymph # (Auto) 1.32 [place] # (Auto) 0.5 Eos # (Auto) 0.2 Baso # (Auto) 0.1 Abs Immat Gran (auto) 0.05 H Absolute Neuts (auto) 5.6 Absolute Nucleated RBC 0.000 Band Neutrophils % Not Reportable Nucleated RBC % 0.0 Platelet Estimate Adequate Hypochromasia Anisocytosis 1+ Schistocytes None seen PT 18.7 H INR 1.5 APTT 39.5 H Sodium 142 Potassium 3.6 Chloride 107 Carbon Dioxide 24 Anion Gap 11 BUN 77 H D Creatinine 2.12 H Estim Creat Clear Calc 42 Estimated GFR 31 L Glucose 114 H POC Capillary Glucose 124 H Hemoglobin A1c 7.5 H Lactic Acid Calcium 8.6 Total Bilirubin 0.3 AST 18 ALT 12 Alkaline Phosphatase 86 C-Reactive Protein 3.9 H Total Protein 7.0 Albumin 3.2 L 02/15/25 02/15/25 08:44 11:32 WBC RBC Hgb Hct MCV MCH MCHC RDW Plt Count MPV Immature Gran % (Auto) Neut % (Auto) Lymph % (Auto) [place] % (Auto) Eos % (Auto) Baso % (Auto) Lymph # (Auto) [place] # (Auto) Eos # (Auto) Baso # (Auto) Abs Immat Gran (auto) Absolute Neuts (auto) Absolute Nucleated RBC Band Neutrophils % Nucleated RBC % Platelet Estimate Hypochromasia Anisocytosis Schistocytes PT INR APTT Sodium Potassium Chloride Carbon Dioxide Anion Gap BUN Creatinine Estim Creat Clear Calc Estimated GFR Glucose POC Capillary Glucose 107 H 143 H Hemoglobin A1c Lactic Acid Calcium Total Bilirubin AST ALT Alkaline Phosphatase C-Reactive Protein Total Protein Albumin
[2025-02-15 14:00] VITALS: BP 138/70; PULSE 74; RESP 20; TEMP 36.7; O2SAT 96
--- NOTE | 2025-02-15 16:36 | P.TS_ITS ---
Transfer Discharge Sum: Prov Provider Date of admission: 02/14/25 14:04 Primary care physician: Bryan Hough, Admitting clinician: Skyler Hahn MD Consults: 02/14/25 Consult to Physician Routine Comment: Consulting Provider: Blake Hopkins Reason for consultation: Gangrenous digits, osteomyelitis Has provider been notified: Yes DS: Admitting Diagnosis Discharge Date 02/15/25 Admitting Diagnosis Foot wound DS: Discharge Diagnosis Discharge Diagnosis (1) Diabetic foot ulcer with osteomyelitis: Code(s): E11.621 - Type 2 diabetes mellitus with foot ulcer; E11.69 - Type 2 diabetes mellitus with other specified complication; L97.509 - Non-pressure chronic ulcer of other part of unspecified foot with unspecified severity; M86.9 - Osteomyelitis, unspecified Status: Acute (2) Acute kidney injury superimposed on CKD: Code(s): N17.9 - Acute kidney failure, unspecified; N18.9 - Chronic kidney disease, unspecified Status: Acute (3) Anemia: Code(s): D64.9 - Anemia, unspecified Status: Acute (4) Diabetes mellitus type 2 in obese: Code(s): E11.69 - Type 2 diabetes mellitus with other specified complication; E66.9 - Obesity, unspecified Status: Chronic (5) HTN (hypertension): Qualifiers: Hypertension type: primary hypertension Qualified Code(s): I10 - Essential (primary) hypertension Code(s): I10 - Essential (primary) hypertension Status: Chronic Transfer Discharge Sum: Med Medications Active and Home Medications: Home Medications atorvastatin 20 mg tablet 20 mg PO HS 06/30/23 [History Confirmed 02/14/25] acetaminophen 325 mg tablet (Mapap (acetaminophen)) 650 mg (2 x 325 mg) PO Q6H PRN Pain Rated 5 Or Less #30 tabs 07/01/23 [Rx Confirmed 02/14/25] amiodarone 200 mg tablet (Pacerone) 200 mg PO Q12HR #60 tabs 07/01/23 [Rx Confirmed 02/14/25] amlodipine 2.5 mg tablet 2.5 mg PO DAILY #30 tabs 07/01/23 [Rx Confirmed 02/14/25] aspirin 81 mg chewable tablet (Children's Aspirin) 81 mg PO DAILY@0800 #30 tabs 07/01/23 [Rx Confirmed 02/14/25] calcium carbonate 500 mg PO Q6H PRN Indigestion #30 tabs 07/01/23 [Rx Confirmed 02/14/25] cholecalciferol (vitamin D3) 1,250 mcg (50,000 unit) capsule 50,000 unit PO WEEKLY #4 caps 07/01/23 [Rx Confirmed 02/14/25] cyclobenzaprine 10 mg tablet 5 mg (1/2 x 10 mg) PO Q8H PRN Muscle Spasm #30 tabs 07/01/23 [Rx Confirmed 02/14/25] famotidine 20 mg tablet 20 mg PO DAILY #30 tabs 07/01/23 [Rx Confirmed 02/14/25] ipratropium 0.5 mg-albuterol 3 mg (2.5 mg base)/3 mL nebulization soln 3 ml inhalation Q6HRT #60 mL 07/01/23 [Rx Confirmed 02/14/25] levothyroxine 50 mcg tablet (Synthroid) 50 mcg PO DAILY@0630 #30 tabs 07/01/23 [Rx Confirmed 02/14/25] metoprolol tartrate 25 mg tablet 25 mg PO Q12HR #60 tabs 07/01/23 [Rx Confirmed 02/14/25] ramelteon 8 mg tablet 8 mg PO HS #30 tabs 07/01/23 [Rx Confirmed 02/14/25] sennosides 8.6 mg-docusate sodium 50 mg tablet (Senokot-S) 1 tab PO HS #30 tabs 07/01/23 [Rx Confirmed 02/14/25] sodium hypochlorite 0.25 % solution (Dakin's Solution) 1 applic topical BID #10 mL 07/01/23 [Rx Confirmed 02/14/25] tamsulosin 0.4 mg capsule 0.4 mg PO QAM #30 caps 07/01/23 [Rx Confirmed 02/14/25] tramadol 50 mg tablet 50 mg PO Q8H PRN Pain Rated 4-6 #20 tabs 07/01/23 [Rx Confirmed 02/14/25] albuterol 90 mcg/actuation aerosol inhaler 90 mcg inhalation .q4hr PRN shortness of breath 02/14/25 [History Confirmed 02/14/25] apixaban 5 mg tablet (Eliquis) 5 mg PO BID 02/14/25 [History Confirmed 02/14/25] bumetanide 1 mg tablet 1 mg PO BID 02/14/25 [History Confirmed 02/14/25] insulin glargine 100 unit/mL (3 mL) subcutaneous pen (Basaglar KwikPen U-100 Insulin) 25 unit subcut .q12hr 02/14/25 [History Confirmed 02/14/25] insulin lispro 100 unit/mL subcutaneous pen (Humalog KwikPen (U-100) Insulin) 10 unit subcut TIDWM 02/14/25 [History Confirmed 02/14/25] metolazone 2.5 mg tablet 2.5 mg PO QMWF 02/14/25 [History Confirmed 02/14/25] Active Medications Acetaminophen (Acetaminophen 325 Mg Tablet) 650 mg PO Q4H PRN PRN Reason: Mild Pain (1-3) or Fever Last Admin: 02/14/25 14:30 Dose: 650 mg Hydrocodone Bitart/Acetaminophen (Hydrocodone/Acetaminophen (*Crx) 5-325 Mg Tablet) 1 tab PO Q6H PRN PRN Reason: Pain Rated 4-6 Albuterol (Albuterol Sulfate (*Sp) Aerosol 1 Puff) 2 puff INHALATION Q4HRT PRN PRN Reason: shortness of breath Atorvastatin Calcium (Atorvastatin 20 Mg Tablet) 20 mg PO [facility] Last Admin: 02/14/25 21:06 Dose: 20 mg Bumetanide (Bumetanide 1 Mg Tablet) 1 mg PO BID [facility] Calcium Carbonate (Calcium Carbonate (Tums) 500 Mg (200 Mg Elemental)) 500 mg PO Q6H PRN PRN Reason: Indigestion Dextrose (Dextrose 50% 25 Gm/50 Ml Syringe) 12.5 gm IV PUSH PRN PRN; Protocol PRN Reason: Hypoglycemia Enoxaparin Sodium (Enoxaparin 40 Mg/0.4 Ml Syringe) 40 mg SUB-Q DAILY [facility] Last Admin: 02/15/25 09:33 Dose: 40 mg Famotidine (Famotidine 20 Mg Tablet) 20 mg PO DAILY [facility] Last Admin: 02/15/25 09:33 Dose: 20 mg Glucagon (Glucagon For Inj 1 Mg Vial) 1 mg IM PRN PRN; Protocol PRN Reason: Hypoglycemia Glucose (Glucose Oral Gel 15 Gm Of Glucse In 37.5 Gm Tube) 15 gm PO PRN PRN; Protocol PRN Reason: Hypoglycemia Lactated Ringer's (Lr - Lactated Ringers Iv) 1,000 mls @ 125 mls/hr IV CONT .Q8H [facility] Last Admin: 02/15/25 14:46 Dose: 125 mls/hr Dextrose (Dextrose 5% 1,000 Ml) 1,000 mls @ 100 mls/hr IVPB PRN PRN; Protocol PRN Reason: Hypoglycemia Metronidazole (Flagyl 500 Mg/Iso Soln 100 Ml) 500 mg in 100 mls @ 100 mls/hr IVPB Q8H [facility] Last Admin: 02/15/25 11:04 Dose: 100 mls/hr Cefepime HCl (Maxipime 1 Gm/Ns 50 Ml) 1 gm in 50 mls @ 100 mls/hr IVPB Q12H [facility] Last Admin: 02/15/25 05:41 Dose: 100 mls/hr Insulin Aspart (Insulin Aspart (*Bkc) 100 Units/Ml) 4 - 8 units SUB-Q TIDWM [facility]; Protocol Last Admin: 02/15/25 12:33 Dose: Not Given Insulin Aspart (Insulin Aspart (*Bkc) 100 Units/Ml) 2 - 4 units SUB-Q HS [facility]; Protocol Last Admin: 02/14/25 21:12 Dose: Not Given Insulin Aspart (Insulin Aspart (*Bkc) 100 Units/Ml) 10 units SUB-Q TIDWM [facility] Last Admin: 02/15/25 12:30 Dose: 10 units Insulin Glargine (Insulin Glargine (*Bkc) 100 Units/Ml) 25 units SUB-Q Q12HR [facility] Last Admin: 02/15/25 10:00 Dose: 25 units Levothyroxine Sodium (Levothyroxine Sodium 50 Mcg Tablet) 50 mcg PO DAILY@0630 [facility] Last Admin: 02/15/25 05:41 Dose: 50 mcg Metolazone (Metolazone 2.5 Mg Tablet) 2.5 mg [facility] Ond[facility] (Ondansetron Inj 4 Mg/2 Ml Vial) 4 mg IV PUSH Q4H PRN PRN Reason: Nausea Tamsulosin HCl (Tamsulosin Hcl 0.4 Mg Capsule) 0.4 [facility] [place] [facility] [place] Admin: 02/15/25 09:33 Dose: 0.4 mg Transfer Discharge Sum: Hosp Hospital Course Hospital course: Gildardo Kat is a 70 year old male with DM2, CKD, previous diabetic foot infections, pacemaker, atrial fibrillation, CHF, BPH, hypothyroidism presents here with a diabetic foot infection (bilateral). Please see H&P for details. Foot XR (L) showing erosion fifth metatarsal head, suspicious for osteomyelitis. Consider correlation with MRI with contrast. He was started on ceftriaxone, metronidazole, and vancomycin on 02/14. Wound RN consulted. Antipyretics and analgesics p.r.n. We held Eliquis. Cr in 2022 was around 1.5. Cr here was 2.75. IV fluids started. Bumex, metolazone held for now. Cr improved. Patient with acute on chronic anemia. His DM and HTN were monitored closely. General surgery input appreciated and transfer was recommended. Patient and family agree to be transferred and requested [facility] system. Called to [place] [facility] and patient was accepted for transfer. Patient overall did well and was able to be transferred in stable condition on 02/20/25. Time Spent with Patient Time attestation: Total time spent providing and/or coordinating transfer services: 36 minutes Total time spent: Greater than 30 minutes Exam Narrative: AF 98.0 135/65 70 20 94% ra Gen - NARD HEENT - evidence of old head trauma. right eye sclera injected Chest - bibasilar crackles, nml RR CV - RRR S1/S2; JVP not distended Abd - Soft, NT/ND, Positive BS Ext - 1+ pedal edema. difficult to palpate distal pulses Psych - Nml mood and affect Skin - Warm and dry. Necrotic toes left 3rd, 4th and right 4th. Right 5th toe pale. Bilateral LE minimal thick scale and pink erythema but not warm to touch. R>L bilateral heel ulcer with dark eschar DS: Data Data Completed and Pending Labs on day of discharge: Labs from last 24 hours 02/15/25 02/15/25 02/15/25 11:32 08:44 05:41 WBC 7.8 RBC 2.89 L Hgb 7.3 L Hct 25.4 L MCV 87.9 MCH 25.3 L MCHC 28.7 L RDW 14.5 Plt Count 330 MPV 8.8 Immature Gran % (Auto) 0.6 H Neut % (Auto) 72.5 Lymph % (Auto) 17.0 L [place] % (Auto) 6.0 Eos % (Auto) 3.1 Baso % (Auto) 0.8 Lymph # (Auto) 1.32 [place] # (Auto) 0.5 Eos # (Auto) 0.2 Baso # (Auto) 0.1 Abs Immat Gran (auto) 0.05 H Absolute Neuts (auto) 5.6 Absolute Nucleated RBC 0.000 Band Neutrophils % Not Reportable Nucleated RBC % 0.0 Platelet Estimate Adequate Anisocytosis 1+ Schistocytes None seen PT INR APTT Sodium 142 Potassium 3.6 Chloride 107 Carbon Dioxide 24 Anion Gap 11 BUN 77 H D Creatinine 2.12 H Estim Creat Clear Calc 42 Estimated GFR 31 L Glucose 114 H POC Capillary Glucose 143 H 107 H Hemoglobin A1c 7.5 H Calcium 8.6 Total Bilirubin 0.3 AST 18 ALT 12 Alkaline Phosphatase 86 C-Reactive Protein 3.9 H Total Protein 7.0 Albumin 3.2 L 02/15/25 02/14/25 02/14/25 05:40 21:11 17:15 WBC RBC Hgb Hct MCV MCH MCHC RDW Plt Count MPV Immature Gran % (Auto) Neut % (Auto) Lymph % (Auto) [place] % (Auto) Eos % (Auto) Baso % (Auto) Lymph # (Auto) [place] # (Auto) Eos # (Auto) Baso # (Auto) Abs Immat Gran (auto) Absolute Neuts (auto) Absolute Nucleated RBC Band Neutrophils % Nucleated RBC % Platelet Estimate Anisocytosis Schistocytes PT 18.7 H INR 1.5 APTT 39.5 H Sodium Potassium Chloride Carbon Dioxide Anion Gap BUN Creatinine Estim Creat Clear Calc Estimated GFR Glucose POC Capillary Glucose 124 H 142 H Hemoglobin A1c Calcium Total Bilirubin AST ALT Alkaline Phosphatase C-Reactive Protein Total Protein Albumin Preliminary micro results at discharge 02/14/25 13:29 Blood Culture - Preliminary Blood 02/14/25 13:30 Blood Culture - Preliminary Blood 02/14/25 13:29 Anaerobic Culture - Preliminary Foot Left
== END 2025-02-15 17:21 | disposition short-term general hospital (02) | DRG 300 ==
LOC: ANHED 14:46 → ANH3MED 15:42
PROVIDERS: Emergency Medicine; Student in an Organized Health Care Education/Training Program; Admitting Provider General Practice; Emergency Provider Student in an Organized Health Care Education/Training Program; PCP Internal Medicine; Visit Provider Internal Medicine
DX: E11.52 Type 2 diabetes mellitus with diabetic peripheral angiopathy with gangrene (principal); I13.0 Hypertensive heart and chronic kidney disease with heart failure and stage 1 through stage 4 chronic kidney disease, or unspecified chronic kidney disease; L97.528 Non-pressure chronic ulcer of other part of left foot with other specified severity; I48.20 Chronic atrial fibrillation, unspecified; I48.92 Unspecified atrial flutter; M86.9 Osteomyelitis, unspecified; N17.9 Acute kidney failure, unspecified; E11.621 Type 2 diabetes mellitus with foot ulcer; E11.69 Type 2 diabetes mellitus with other specified complication; E11.22 Type 2 diabetes mellitus with diabetic chronic kidney disease; I50.9 Heart failure, unspecified; N18.9 Chronic kidney disease, unspecified; N40.0 Benign prostatic hyperplasia without lower urinary tract symptoms; E03.9 Hypothyroidism, unspecified; E66.9 Obesity, unspecified; H54.0X33 Blindness right eye category 3, blindness left eye category 3; Z95.0 Presence of cardiac pacemaker; Z79.4 Long term (current) use of insulin; Z79.01 Long term (current) use of anticoagulants; Z99.3 Dependence on wheelchair
CPT/HCPCS: 36415; 73630; 80053; 82948; 83036; 83605; 85025; 85610; 85730; 86140; 87040; 87070; 87075; 87181; 87186; 87205; 93005; 96365; 96367; 96368; 96375; 99285; A9270; J0692; J0696; J1650; J1815; J1836; J3370; J7120

== ENCOUNTER 2025-04-11 18:11 | Inpatient (IN) | payer MEDICARE, SELFPAY ==
--- NOTE | ~2025-04-11 | XR_ITS ---
CHEST RADIOGRAPH CLINICAL HISTORY: history of CHF . COMPARISON: 10/10/2024 TECHNIQUE: Single portable view of the chest. FINDINGS The left mid lung is partially obscured due to pacemaker generator. Wires project over the right atrium and right ventricle. The remainder of the cardiomediastinal silhouette is otherwise unremarkable. The lungs are clear. IMPRESSION: No focal infiltrate or effusion. Reviewed, dictated and finalized at location A.
--- NOTE | ~2025-04-11 | CT_ITS ---
Non-contrast CT scan of the Abdomen and Pelvis Clinical indication: Acute renal failure Technique: 2.5 mm axial scans were obtained through the abdomen and pelvis without intravenous or or al contrast. Dose reduction technique was used on this scan by utilizing automated exposure control a nd iterative reconstruction technique. The dose-length product (DLP) was 1846.89 mGy-cm. Findings: Images through the lung bases reveal no abnormalities. There is no evidence of renal or ureteral calculi. The kidneys and the ureters are nondilated. The liver, spleen, pancreas, and adrenals appear normal. Gallbladder sludge and possibly small layeri ng stones are present. There are atherosclerotic calcifications of the aorta. . There is no evidence of bowel obstruction. There is prominent stool at the rectum, with probable mini mal stercoral proctitis. Small fat-containing umbilical hernia noted. Images through the pelvis were performed. There is no evidence of ascites or lymphadenopathy. Urinary bladder unremarkable. No pelvic mass seen. Moderate degenerative change of the spine noted. Impression: No significant abnormality of the system identified. Suspected fecal impaction/constipation, with probable minimal stercoral proctitis. Gallbladder sludge and possibly small layering stones, versus vicarious excretion of contrast. Small fat-containing umbilical hernia. Reviewed, dictated and finalized at location M. Impression: No significant abnormality of the system identified. Suspected fecal impaction/constipation, with probable minimal stercoral proctit is. Gallbladder sludge and possibly small layering stones, versus vicarious excreti on of contrast. Small fat-containing umbilical hernia.
--- NOTE | ~2025-04-11 | US_ITS ---
US renal BI 04/12/2025 09:37 Procedure: Realtime transabdominal ultrasound of the kidneys and bladder. Indication: Acute renal insufficiency Comparison: No prior studies for comparison. Findings: Renal echotexture is normal bilaterally without hydronephrosis, contour deforming mass or r enal calculus. The right kidney measures 11.1 cm and left kidney measures 10.8 cm. Bladder within no rmal limits. Impression: 1: Unremarkable renal ultrasound. No stones, masses or hydronephrosis. Reviewed, dictated and finalized at location [] Impression: 1: Unremarkable renal ultrasound. No stones, masses or hydronephrosis.
--- OUTSIDE RECORDS SUMMARY | 2025-04-11 18:15 | XMS_ITS | CONTINUITY OF CARE DOCUMENT ---
Author Name galileo, galileo Address Unknown Organization [facility] Address [address] [address] [place] [address] Phone [phone] Care Team Providers Care Art Objects Salesperson Name Role Phone Noel Bañuelos MD Unavailable DULCE CASEY MD Unavailable DULCE CASEY MD Unavailable [phone] PROBLEMS Condition Status Date Provider Notes S/P [...] MD Atrial fibrillation active Kady Ventimigl ia [employer]INE[employer] Bradycardia active Noel Bañuelos MD Sick sinus syndrome active Noel Bañuelos MD ENCOUNTERS Date Type Provider Location Encounter Diag nosis - In-person encounter Office Visit Yoon Bailey MD [facility] - In-person encounter Office Visit Noel Bañuelos MD [facility] BradycardiaSick sinus syndrome - In-person encounter Office Visit Noel Bañuelos MD [facility] - In-person encounter Office Visit Noel Bañuelos MD [facility] Atrial fibrillation - In-person encounter Office Visit Noel Bañuelos MD [facility] Cardiology examinationDiabetes, Type 2CKDPeripheral artery diseaseHyperlipidemiaDiastolic CHFHypothyroidism VITAL SIGNS Date Observation Value Provider blood pressure, diastolic 78 mm[Hg] [facility] 153 mm[Hg] Joelle garner Shannon oxygen saturation, oximetry 97 % [facility] 61 /min [facility] respiratory rate E&M 14 /min [facility] height E&M 73 [in_i] Verenice Shannon blood pressure, cuff size regular An pedrito Shannon Body Mass Index (Ratio) 39.18 kg/m2 Crury Bañuelos MD blood pressure, diastolic 60 mm[Hg] April gonzalez [facility] blood pressure, systolic 106 mm[Hg] Susy [facility]on [facility] oxygen saturation, oximetry 99 % Kimberley [facility] pulse rate 62 /min Kimberley [facility] blood pressure, cuff size regular April yla [facility] weight E&M 297 [lb_av] Kimberley [facility] height E&M 73 [in_i] [facility] Body Mass Index (Ratio) 36.94 kg/m2 [...] herbertLog blood pressure, systolic 124 mm[Hg] Evon [facility] blood pressure, cuff size regular [place] [...] herbertLog blood pressure, systolic 149 mm[Hg] Evon [facility] blood pressure, cuff size regular rret blood [...] (3 mL) insulin pen active Kady Ventimiglia [employer]INE[employer] Humalog KwikPen Insulin 100 unit/mL insulin pen active Kady Ventimiglia [employer]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 atorvastatin 10 mg tablet active Noel Bañuelos [...] history of marijuana use no Kady Ventimiglia [facility] drug use no Kady Ventimig mame [facility] alcohol use no Kady Ventimig mame [facility] smoking status Never smoker Kady Niurkam iglia [facility] personal history of marijuana use no Kady Ventimiglia [facility] drug use no Kady Ventimig mame [facility] alcohol use no Kady Ventimig mame [facility] smoking status Never smoker Noel Bañuelos MD smoking status Never smoker INSURANCE PROVIDERS Payer name Policy type / Coverage type [place] [employer] party ID [facility] GR[facility] MEDICARE ADVANTAGE PLAN (PPO) Medicare [id number] ADVANCE DIRECTIVES Name Date DISCUSSED - NO [...] Atorvastatin 10 Mg Tablet (Atorvastatin) Kady Samson [facility] Cardiology: H is updated medication list for this problem includes: Bumetanide 1 Mg Tablet (Bumetanide) ..... Take 1 tablet by mouth twice a day Metolazone 2.5 Mg Tablet (Metolazone) ..... Take 1 tablet on tuesday and tuesday Metoprolol Tartrate 25 Mg Tablet (Metoprolol tartrate) ..... Take 1 tablet [facility]ue wound care [facility] Cardiology: H is updated medication list for this problem includes: Levothyroxine 50 Mcg Tablet (Levothyroxine) ..... Take 1 tablet by mouth once a day [facility] Cardiology:remains i n atrial fibrillation on [...] 1 tablet by mouth twice a day [facility] Cardiology:noted to have irregular rhythm on [...] 1 tablet by mouth once a day [facility]no new le g pain or ulcerations c ontinue present meds [facility] Cardiology:will get updated labs from PCP H is updated medication list for this problem includes: Atorvastatin 10 Mg Tablet (Atorvastatin) [facility] Cardiology:patient h as no new SOB [...] by mouth twice a day Kady Katzkelly [employer] Cardiology:per PCP Noel Bañuelos MD Cardiology:The patie [...]
--- OUTSIDE RECORDS SUMMARY | 2025-04-11 18:15 | XMS_ITS | Data Portability ---
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 Name Role Phone DULCE HOUGH Primary Care Provider Assessment Encounter Date Assessment Date Assessment LastModified by Organization Details LastModified Time 04/03/2024 04/03/2024 Foot problems will be addressed by cardiology and by wound care will refer him back to cardiology for his peripheral arterial disease and his edema and chronic diastolic heart failure continue current therapy otherwise and see me in 2 months [email or web address] he has been unable to get financially [email or web address] Not available 04/29/2024 13:30:53 07/03/2024 07/03/2024 long talk with him about his dietary indiscretions recommend that he see a dietitian he will think about it we will check a hemoglobin A1c CMP CBC just lipidemia he will be evaluated with a lipid panel follow up with me in 3 months he needs to get back on insulin Not available 07/06/2024 08:13:56 10/03/2024 10/03/2024 diabetes [...] follow up with me in 2 months [email or web address] Not available 10/14/2024 15:52:45 01/04/2025 01/04/2025 decongestant he needs some physical therapy he needs blood work diagnosis have been discussed hypertension chronic diastolic heart failure hypothyroidism type 2 diabetes neuropathy pneumococcal vaccine flu shot see me in 3 months physical therapy blood work. [email or web address] Not available 01/05/2025 16:03:04 Plan of Treatment Reminders Order Date Submit Date Provider Last Modified By Organization Details Last Modified Time Details Appointments ANY 15 2024 02:00P Tigist Hough MD Not available Not available Not available Lab HbA1c (hemoglob in A1c), blood 2024 025 SWETHA [facility], [address], [address], [place], [address], 01/05/2025 08:24:23 CMP, serum or plasma 2024 025 SWETHA [facility], [address], [address], [place], [address], 01/05/2025 08:24:22 CBC w/ auto diff 2024 025 SWETHA [facility], [address], [address], [place], [address], 01/05/2025 08:24:25 lipid panel, serum 2024 025 SWETHA [facility], [address], [address], [place], [address], 01/05/2025 08:24:20 TSH, ultra-sen sitive, serum 2024 025 SWETHA [facility], [address], [address], [place], [address], 01/05/2025 08:24:24 T3, free, serum or plasma 2024 025 SWETHA [facility], [address], [address], [place], [address], 01/05/2025 08:24:27 T4, free, serum 2024 025 SWETHA [facility], [address], [address], [place], [address], 01/05/2025 08:24:28 HbA1c (hemoglob in A1c), blood 2023 024 [email or web address] In-Office Order, Internal Use Only DO Not Attach Compendium DO Not Attach Compendium, Do Not Delete/merge, [id number] 10/03/2024 15:05:51 CMP, serum or plasma 2023 024 SWETHA [facility], [address] [facility], [address], [place], [address], 07/04/2024 10:15:31 CBC w/ auto diff 2023 024 SWETHA [facility], [address] [place] [address], [address], [place], [address], 07/04/2024 10:15:32 HbA1c (hemoglob in A1c), blood 2023 024 [facility], [address] [facility], [address], [place], [address], 07/04/2024 10:15:32 lipid panel, serum 2023 024 [facility], [address] [facility], [address], [place], [address], 07/04/2024 10:15:30 Referral physical therapist referral 2024 025 [facility], [address], [place], [address], 02/12/2025 12:34:58 cardiolog ist referral 2023 024 SWETHA Bañuelos MD, [address], [address], [place], [address], 04/13/2024 11:54:46 Procedures None recorded. Surgeries None recorded. Imaging None recorded. Medication Orders None recorded. Patient TargetsNo targets recorded. 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 failure Referring Physician: Dulce Hough, Internal Medicine, Encounter Date: 04/03/2024 Physical Therapist Referral for Abnormal gait Referring Physician: Dulce Hough, Internal Medicine, Encounter Date: 01/04/2025 Results Created Date Observation Date Name Description Value Unit Range Abnormal Flag Note LastModifiedBy Organization Detail LastModifiedTime 07/03/2007/04/2024 LIPID PANEL cholesterol, total 155 mg/dL 100-19 9 Not Available [facility] ([facility]) [address] [place], [address], 07/04/2024 10:15:30 07/03/20 24 07/04/2024 LIPID PANEL triglyceride s 294 mg/dL 0-149 above high normal Not Available [facility] ([facility]) [address] [place], [address], 07/04/2024 10:15:30 07/03/20 24 07/04/2024 LIPID PANEL HDL cholesterol 29 mg/dL >39 below low normal Not Available [facility] ([facility]) [address] [place], [address], 07/04/2024 10:15:30 07/03/20 24 07/04/2024 LIPID PANEL VLDL cholesterol nicholas 48 mg/dL 5-40 above high normal Not Available [facility] ([facility]) [address] [place], [address], 07/04/2024 10:15:30 07/03/20 24 07/04/2024 LIPID PANEL LDL chol calc ([facility]) 78 mg/dL 0-99 Not Available [facility] ([facility]) [address] [place], [address], 07/04/2024 10:15:30 07/03/20 24 07/04/2024 COMP. METAB OLIC PANEL (14) glucose 590 mg/dL 70-99 panic high Lindsey ified by greg rodriges Not Available [facility] ([facility]) [address] [place], [address], 07/04/2024 10:15:31 07/03/20 24 07/04/2024 COMP. METAB OLIC PANEL (14) BUN 89 mg/dL 8-27 alert high Not Available [facility] ([facility]) [address] [place], [address], 07/04/2024 10:15:31 07/03/20 24 07/04/2024 COMP. METAB OLIC PANEL (14) creatinine 2.24 mg/dL 0.76-1 .27 above high normal Not Available [facility] ([facility]) [address] [place], [address], 07/04/2024 10:15:31 07/03/20 24 07/04/2024 COMP. METAB OLIC PANEL (14) eGFR 31 mL/mi n/1.7 3 >59 below low normal Not Available [facility] ([facility]) [address] [place], [address], 07/04/2024 10:15:31 07/03/20 24 07/04/2024 COMP. METAB OLIC PANEL (14) BUN/creatini ne ratio 40 10-24 above high normal Not Available [facility] ([facility]) [address] [place], [address], 07/04/2024 10:15:31 07/03/20 24 07/04/2024 COMP. METAB OLIC PANEL (14) sodium 133 mmol/ L 134-14 4 below low normal Not Available [facility] ([facility]) [address] [place], [address], 07/04/2024 10:15:31 07/03/20 24 07/04/2024 COMP. METAB OLIC PANEL (14) potassium 5.1 mmol/ L 3.5-5. 2 Not Available [facility] ([facility]) [address] [facility], [place], [address], 07/04/2024 10:15:31 07/03/20 24 07/04/2024 COMP. METAB OLIC PANEL (14) chloride 92 mmol/ L 96-106 below low normal Not Available [facility] ([facility]) [address] [facility], [place], [address], 07/04/2024 10:15:31 07/03/20 24 07/04/2024 COMP. METAB OLIC PANEL (14) carbon dioxide, total 26 mmol/ L 20-29 Not Available [facility] ([facility]) [address] [facility] [place], [address], 07/04/2024 10:15:31 07/03/20 24 07/04/2024 COMP. METAB OLIC PANEL (14) calcium 9.3 mg/dL 8.6-10 .2 Not Available [facility] ([facility]) [address] [facility] [place] [place], [address], 07/04/2024 10:15:31 07/03/20 24 07/04/2024 COMP. METAB OLIC PANEL (14) protein, total 7.3 g/dL 6.0-8. 5 Not Available [facility] ([facility]) [address] [facility] [place], [address], 07/04/2024 10:15:31 07/03/20 24 07/04/2024 COMP. METAB OLIC PANEL (14) albumin 4.0 g/dL 3.8-4. 8 Not Available [facility] ([facility]) [address] [facility], [place], [address], 07/04/2024 10:15:31 07/03/20 24 07/04/2024 COMP. METAB OLIC PANEL (14) globulin, total 3.3 g/dL 1.5-4. 5 Not Available [facility] ([facility]) [address] [place], [address], 07/04/2024 10:15:31 07/03/20 24 07/04/2024 COMP. METAB OLIC PANEL (14) bilirubin, total 0.4 mg/dL 0.0-1. 2 Not Available [facility] ([facility]) [address] [place], [address], 07/04/2024 10:15:31 07/03/20 24 07/04/2024 COMP. METAB OLIC PANEL (14) alkaline phosphatase 140 IU/L 44-121 above high normal Not Available [facility] ([facility]) [address] [place], [address], 07/04/2024 10:15:31 07/03/20 24 07/04/2024 COMP. METAB OLIC PANEL (14) AST (SGOT) 12 IU/L 0-40 Not Available [facility] ([facility]) [address] [place], [address], 07/04/2024 10:15:31 07/03/20 24 07/04/2024 COMP. METAB OLIC PANEL (14) ALT (SGPT) 11 IU/L 0-44 Not Available [facility] ([facility]) [address] [place], [address], 07/04/2024 10:15:31 07/03/20 24 07/04/2024 HEMOG LOBIN A1C hemoglobin A1C 11.9 % 4.8-5. 6 above high normal Predi abete s: 5.7 - 6.4 Diabe carmel: >6.4 Glyce cami contr ol for adult s with diabe carmel: <7.0 Not Available [facility] ([facility]) [address] [place], [address], 07/04/2024 10:15:31 07/03/20 24 07/04/2024 CBC WITH DIFFE RENTI AL/PL ATELE T WBC 6.8 x10e3 /uL 3.4-10 .8 Not Available [facility] ([facility]) [address] [facility], [place], [address], 07/04/2024 10:15:32 07/03/20 24 07/04/2024 CBC WITH DIFFE RENTI AL/PL ATELE T RBC 3.84 x10e6 /uL 4.14-5 .80 below low normal Not Available [facility] ([facility]) [address] [place], [address], 07/04/2024 10:15:32 07/03/20 24 07/04/2024 CBC WITH DIFFE RENTI AL/PL ATELE T hemoglobin 11.1 g/dL 13.0-1 7.7 below low normal Not Available [facility] ([facility]) [address] [facility], [place], [address], 07/04/2024 10:15:32 07/03/20 24 07/04/2024 CBC WITH DIFFE RENTI AL/PL ATELE T hematocrit 36.2 % 37.5-5 1.0 below low normal Not Available [facility] ([facility]) [address] [place], [address], 07/04/2024 10:15:32 07/03/20 24 07/04/2024 CBC WITH DIFFE RENTI AL/PL ATELE T MCV 94 fL 79-97 Not Available [facility] ([facility]) [address] [place], [address], 07/04/2024 10:15:32 07/03/20 24 07/04/2024 CBC WITH DIFFE RENTI AL/PL ATELE T MCH 28.9 pg 26.6-3 3.0 Not Available [facility] ([facility]) [address] [place], [address], 07/04/2024 10:15:32 07/03/20 24 07/04/2024 CBC WITH DIFFE RENTI AL/PL ATELE T MCHC 30.7 g/dL 31.5-3 5.7 below low normal Not Available [facility] ([facility]) [address] [facility], [place], [address], 07/04/2024 10:15:32 07/03/20 24 07/04/2024 CBC WITH DIFFE RENTI AL/PL ATELE T RDW 13.0 % 11.6-1 5.4 Not Available [facility] ([facility]) [address] [facility], [place], [address], 07/04/2024 10:15:32 07/03/20 24 07/04/2024 CBC WITH DIFFE RENTI AL/PL ATELE T platelets 213 x10e3 /uL 150-45 0 Not Available [facility] ([facility]) [address] [facility], [place], [address], 07/04/2024 10:15:32 07/03/20 24 07/04/2024 CBC WITH DIFFE RENTI AL/PL ATELE T neutrophils 64 % notest ab. Not Available [facility] ([facility]) [address] [facility], [place], [address], 07/04/2024 10:15:32 07/03/20 24 07/04/2024 CBC WITH DIFFE RENTI AL/PL ATELE T lymphs 25 % notest ab. Not Available [facility] ([facility]) [address] [facility], [place], [address], 07/04/2024 10:15:32 07/03/20 24 07/04/2024 CBC WITH DIFFE RENTI AL/PL ATELE T monocytes 7 % notest ab. Not Available [facility] ([facility]) [address] [facility], [place], [address], 07/04/2024 10:15:32 07/03/20 24 07/04/2024 CBC WITH DIFFE RENTI AL/PL ATELE T eos 3 % notest ab. Not Available [facility] ([facility]) [address] [facility], [place], [address], 07/04/2024 10:15:32 07/03/20 24 07/04/2024 CBC WITH DIFFE RENTI AL/PL ATELE T basos 1 % notest ab. Not Available [facility] ([facility]) [address] [facility], [place], [address], 07/04/2024 10:15:32 07/03/20 24 07/04/2024 CBC WITH DIFFE RENTI AL/PL ATELE T neutrophils (absolute) 4.3 x10e3 /uL 1.4-7. 0 Not Available [facility] ([facility]) [address] [facility], [place], [address], 07/04/2024 10:15:32 07/03/20 24 07/04/2024 CBC WITH DIFFE RENTI AL/PL ATELE T lymphs (absolute) 1.7 x10e3 /uL 0.7-3. 1 Not Available [facility] ([facility]) [address] [facility], [place], [address], 07/04/2024 10:15:32 07/03/20 24 07/04/2024 CBC WITH DIFFE RENTI AL/PL ATELE T monocytes(ab solute) 0.5 x10e3 /uL 0.1-0. 9 Not Available [facility] ([facility]) [address] [place], [address], 07/04/2024 10:15:32 07/03/20 24 07/04/2024 CBC WITH DIFFE RENTI AL/PL ATELE T eos (absolute) 0.2 x10e3 /uL 0.0-0. 4 Not Available [facility] ([facility]) [address] [place], [address], 07/04/2024 10:15:32 07/03/20 24 07/04/2024 CBC WITH DIFFE RENTI AL/PL ATELE T baso (absolute) 0.0 x10e3 /uL 0.0-0. 2 Not Available [facility] ([facility]) [address] [facility], [place], [address], 07/04/2024 10:15:32 07/03/20 24 07/04/2024 CBC WITH DIFFE RENTI AL/PL ATELE T immature granulocytes 0 % notest ab. Not Available [facility] ([facility]) [address] [facility], [place], [address], 07/04/2024 10:15:32 07/03/20 24 07/04/2024 CBC WITH DIFFE RENTI AL/PL ATELE T immature grans (abs) 0.0 x10e3 /uL 0.0-0. 1 Not Available [facility] ([facility]) [address] [facility], [place], [address], 07/04/2024 10:15:32 10/03/20 24 10/03/2024 HbA1c (hemo globi n A1c), blood HbA1c 6.7 Not Available In-Office Order Internal Use Only DO Not Attach Compendium DO Not Attach Compendium, Do Not Delete/merge, [id number] 10/03/2024 14:43:11 01/04/20 25 01/05/2025 LIPID PANEL cholesterol, total 121 mg/dL 100-19 9 Not Available [facility] ([facility]) [address] [facility], [place], [address], 01/05/2025 08:24:20 01/04/20 25 01/05/2025 LIPID PANEL triglyceride s 241 mg/dL 0-149 above high normal Not Available [facility] ([facility]) [address] [facility], [place], [address], 01/05/2025 08:24:20 01/04/20 25 01/05/2025 LIPID PANEL HDL cholesterol 25 mg/dL >39 below low normal Not Available [facility] ([facility]) [address] [place], [address], 01/05/2025 08:24:20 01/04/20 25 01/05/2025 LIPID PANEL VLDL cholesterol nicholas 39 mg/dL 5-40 Not Available [facility] ([facility]) [address] [place], [address], 01/05/2025 08:24:20 01/04/20 25 01/05/2025 LIPID PANEL LDL chol calc ([facility]) 57 mg/dL 0-99 Not Available [facility] ([facility]) [address] [place], [address], 01/05/2025 08:24:20 01/04/20 25 01/05/2025 COMP. METAB OLIC PANEL (14) glucose 132 mg/dL 70-99 above high normal Not Available [facility] ([facility]) [address] [place], [address], 01/05/2025 08:24:21 01/04/20 25 01/05/2025 COMP. METAB OLIC PANEL (14) BUN 56 mg/dL 8-27 above high normal Not Available [facility] ([facility]) [address] [place], [address], 01/05/2025 08:24:21 01/04/20 25 01/05/2025 COMP. METAB OLIC PANEL (14) creatinine 2.23 mg/dL 0.76-1 .27 above high normal Not Available [facility] ([facility]) [address] [place], [address], 01/05/2025 08:24:21 01/04/20 25 01/05/2025 COMP. METAB OLIC PANEL (14) eGFR 31 mL/mi n/1.7 3 >59 below low normal Not Available [facility] ([facility]) [address] [facility] [place], [address], 01/05/2025 08:24:21 01/04/20 25 01/05/2025 COMP. METAB OLIC PANEL (14) BUN/creatini ne ratio 25 10-24 above high normal Not Available [facility] ([facility]) [address] [facility] [place], [address], 01/05/2025 08:24:21 01/04/20 25 01/05/2025 COMP. METAB OLIC PANEL (14) sodium 144 mmol/ L 134-14 4 Not Available [facility] ([facility]) [address] [facility] [place] [place], [address], 01/05/2025 08:24:21 01/04/20 25 01/05/2025 COMP. METAB OLIC PANEL (14) potassium 4.8 mmol/ L 3.5-5. 2 Not Available [facility] ([facility]) [address] [facility] [place] [place], [address], 01/05/2025 08:24:21 01/04/20 25 01/05/2025 COMP. METAB OLIC PANEL (14) chloride 107 mmol/ L 96-106 above high normal Not Available [facility] ([facility]) [address] [facility] [place] [place], [address], 01/05/2025 08:24:21 01/04/20 25 01/05/2025 COMP. METAB OLIC PANEL (14) carbon dioxide, total 23 mmol/ L 20-29 Not Available [facility] ([facility]) [address] [facility] [place] [place], [address], 01/05/2025 08:24:21 01/04/20 25 01/05/2025 COMP. METAB OLIC PANEL (14) calcium 8.4 mg/dL 8.6-10 .2 below low normal Not Available [facility] ([facility]) [address] [facility] [place] [place], [address], 01/05/2025 08:24:21 01/04/20 25 01/05/2025 COMP. METAB OLIC PANEL (14) protein, total 6.7 g/dL 6.0-8. 5 Not Available [facility] ([facility]) [address] [facility], [place], [address], 01/05/2025 08:24:21 01/04/20 25 01/05/2025 COMP. METAB OLIC PANEL (14) albumin 3.6 g/dL 3.8-4. 8 below low normal Not Available [facility] ([facility]) [address] [facility], [place], [address], 01/05/2025 08:24:21 01/04/20 25 01/05/2025 COMP. METAB OLIC PANEL (14) globulin, total 3.1 g/dL 1.5-4. 5 Not Available [facility] ([facility]) [address] [facility], [place], [address], 01/05/2025 08:24:21 01/04/20 25 01/05/2025 COMP. METAB OLIC PANEL (14) bilirubin, total <0.2 mg/dL 0.0-1. 2 Not Available [facility] ([facility]) [address] [facility], [place], [address], 01/05/2025 08:24:21 01/04/20 25 01/05/2025 COMP. METAB OLIC PANEL (14) alkaline phosphatase 120 IU/L 44-121 Not Available [facility] ([facility]) [address] [facility], [place], [address], 01/05/2025 08:24:21 01/04/20 25 01/05/2025 COMP. METAB OLIC PANEL (14) AST (SGOT) 14 IU/L 0-40 Not Available [facility] ([facility]) [address] [facility], [place], [address], 01/05/2025 08:24:21 01/04/20 25 01/05/2025 COMP. METAB OLIC PANEL (14) ALT (SGPT) 9 IU/L 0-44 Not Available [facility] ([facility]) [address] [place], [address], 01/05/2025 08:24:21 01/04/20 25 01/05/2025 HEMOG LOBIN A1C hemoglobin A1C 7.9 % 4.8-5. 6 above high normal Predi abete s: 5.7 - 6.4 Diabe carmel: >6.4 Glyce cami contr ol for adult s with diabe carmel: <7.0 Not Available [facility] ([facility]) [address] [place], [address], 01/05/2025 08:24:23 01/04/20 25 01/05/2025 TSH TSH 3.750 uIU/m L 0.450- 4.500 Not Available [facility] ([facility]) [address] [place], [address], 01/05/2025 08:24:24 01/04/20 25 01/05/2025 CBC WITH DIFFE RENTI AL/PL ATELE T WBC 6.4 x10e3 /uL 3.4-10 .8 Not Available [facility] ([facility]) [address] [place], [address], 01/05/2025 08:24:25 01/04/20 25 01/05/2025 CBC WITH DIFFE RENTI AL/PL ATELE T RBC 3.04 x10e6 /uL 4.14-5 .80 below low normal Not Available [facility] ([facility]) [address] [place], [address], 01/05/2025 08:24:25 01/04/20 25 01/05/2025 CBC WITH DIFFE RENTI AL/PL ATELE T hemoglobin 8.1 g/dL 13.0-1 7.7 below low normal Not Available [facility] ([facility]) [address] [facility], [place], [address], 01/05/2025 08:24:25 01/04/2001/05/2025 CBC WITH DIFFE RENTI AL/PL ATELE T hematocrit 26.8 % 37.5-5 1.0 below low normal Not Available [facility] ([facility]) [address] [facility], [place], [address], 01/05/2025 08:24:25 01/04/2001/05/2025 CBC WITH DIFFE RENTI AL/PL ATELE T MCV 88 fL 79-97 Not Available [facility] ([facility]) [address] [facility], [place], [address], 01/05/2025 08:24:25 01/04/20 25 01/05/2025 CBC WITH DIFFE RENTI AL/PL ATELE T MCH 26.6 pg 26.6-3 3.0 Not Available [facility] ([facility]) [address] [facility], [place], [address], 01/05/2025 08:24:25 01/04/20 25 01/05/2025 CBC WITH DIFFE RENTI AL/PL ATELE T MCHC 30.2 g/dL 31.5-3 5.7 below low normal Not Available [facility] ([facility]) [address] [place], [address], 01/05/2025 08:24:25 01/04/2001/05/2025 CBC WITH DIFFE RENTI AL/PL ATELE T RDW 13.6 % 11.6-1 5.4 Not Available [facility] ([facility]) [address] [place], [address], 01/05/2025 08:24:25 01/04/20 25 01/05/2025 CBC WITH DIFFE RENTI AL/PL ATELE T platelets 313 x10e3 /uL 150-45 0 Not Available [facility] ([facility]) [address] [facility], [place], [address], 01/05/2025 08:24:25 01/04/20 25 01/05/2025 CBC WITH DIFFE RENTI AL/PL ATELE T neutrophils 67 % notest ab. Not Available [facility] ([facility]) [address] [facility], [place], [address], 01/05/2025 08:24:25 01/04/20 25 01/05/2025 CBC WITH DIFFE RENTI AL/PL ATELE T lymphs 20 % notest ab. Not Available [facility] ([facility]) [address] [facility], [place], [address], 01/05/2025 08:24:25 01/04/20 25 01/05/2025 CBC WITH DIFFE RENTI AL/PL ATELE T monocytes 6 % notest ab. Not Available [facility] ([facility]) [address] [facility], [place], [address], 01/05/2025 08:24:25 01/04/20 25 01/05/2025 CBC WITH DIFFE RENTI AL/PL ATELE T eos 5 % notest ab. Not Available [facility] ([facility]) [address] [facility], [place], [address], 01/05/2025 08:24:25 01/04/20 25 01/05/2025 CBC WITH DIFFE RENTI AL/PL ATELE T basos 1 % notest ab. Not Available [facility] ([facility]) [address] [facility], [place], [address], 01/05/2025 08:24:25 01/04/20 25 01/05/2025 CBC WITH DIFFE RENTI AL/PL ATELE T neutrophils (absolute) 4.3 x10e3 /uL 1.4-7. 0 Not Available [facility] ([facility]) [address] [facility], [place], [address], 01/05/2025 08:24:25 01/04/20 25 01/05/2025 CBC WITH DIFFE RENTI AL/PL ATELE T lymphs (absolute) 1.3 x10e3 /uL 0.7-3. 1 Not Available [facility] ([facility]) [address] [facility], [place], [address], 01/05/2025 08:24:25 01/04/20 25 01/05/2025 CBC WITH DIFFE RENTI AL/PL ATELE T monocytes(ab solute) 0.4 x10e3 /uL 0.1-0. 9 Not Available [facility] ([facility]) [address] [facility], [place], [address], 01/05/2025 08:24:25 01/04/20 25 01/05/2025 CBC WITH DIFFE RENTI AL/PL ATELE T eos (absolute) 0.3 x10e3 /uL 0.0-0. 4 Not Available [facility] ([facility]) [address] [facility], [place], [address], 01/05/2025 08:24:25 01/04/20 25 01/05/2025 CBC WITH DIFFE RENTI AL/PL ATELE T baso (absolute) 0.1 x10e3 /uL 0.0-0. 2 Not Available [facility] ([facility] [address] [facility], [place], [address], 01/05/2025 08:24:25 01/04/20 25 01/05/2025 CBC WITH DIFFE RENTI AL/PL ATELE T immature granulocytes 1 % notest ab. Not Available [facility] ([facility]) [address] [place], [address], 01/05/2025 08:24:25 01/04/20 25 01/05/2025 CBC WITH DIFFE RENTI AL/PL ATELE T immature grans (abs) 0.1 x10e3 /uL 0.0-0. 1 Not Available [facility] ([facility]) [address] [place], [address], 01/05/2025 08:24:25 01/04/20 25 01/05/2025 TRIIO DOTHY ARCELIA E (T3), FREE triiodothyro nine (T3), free 2.0 pg/mL 2.0-4. 4 Not Available [facility] ([facility]) [address] [place], [address], 01/05/2025 08:24:27 01/04/20 25 01/05/2025 T4,FR EE(DI RECT) T4,free(dire ct) 1.14 NG/dL 0.82-1 .77 Not Available [facility] ([facility]) [address] [place], [address], 01/05/2025 08:24:28 04/10/20 25 04/11/2025 LIPID PANEL cholesterol, total 122 mg/dL 100-19 9 Not Available [facility] ([facility]) [address] [place], [address], 04/11/2025 13:12:10 04/10/20 25 04/11/2025 LIPID PANEL triglyceride s 184 mg/dL 0-149 above high normal Not Available [facility] ([facility]) [address] [place], [address], 04/11/2025 13:12:10 04/10/20 25 04/11/2025 LIPID PANEL HDL cholesterol 29 mg/dL >39 below low normal Not Available [facility] ([facility]) [address] [place], [address], 04/11/2025 13:12:10 04/10/20 25 04/11/2025 LIPID PANEL VLDL cholesterol nicholas 31 mg/dL 5-40 Not Available [facility] ([facility]) [address] [place], [address], 04/11/2025 13:12:10 04/10/20 25 04/11/2025 LIPID PANEL LDL chol calc ([facility]) 62 mg/dL 0-99 Not Available [facility] ([facility]) [address] [place], [address], 04/11/2025 13:12:10 04/10/20 25 04/11/2025 T4, FREE T4,free(dire ct) 1.83 NG/dL 0.82-1 .77 above high normal Not Available [facility] ([facility]) [address] [place], [address], 04/11/2025 13:12:11 04/10/20 25 04/11/2025 COMP. METAB OLIC PANEL (14) glucose 103 mg/dL 70-99 above high normal Not Available [facility] ([facility]) [address] [place], [address], 04/11/2025 13:12:12 04/10/20 25 04/11/2025 COMP. METAB OLIC PANEL (14) BUN 104 mg/dL 8-27 alert high Not Available [facility] ([facility]) [address] [place], [address], 04/11/2025 13:12:12 04/10/20 25 04/11/2025 COMP. METAB OLIC PANEL (14) creatinine 3.99 mg/dL 0.76-1 .27 above high normal Not Available [facility] ([facility]) [address] [place], [address], 04/11/2025 13:12:12 04/10/20 25 04/11/2025 COMP. METAB OLIC PANEL (14) eGFR 15 mL/mi n/1.7 3 >59 below low normal Not Available [facility] ([facility]) [address] [place], [address], 04/11/2025 13:12:12 04/10/20 25 04/11/2025 COMP. METAB OLIC PANEL (14) BUN/creatini ne ratio 26 10-24 above high normal Not Available [facility] ([facility]) [address] [facility] [place], [address], 04/11/2025 13:12:12 04/10/20 25 04/11/2025 COMP. METAB OLIC PANEL (14) sodium 141 mmol/ L 134-14 4 Not Available [facility] ([facility]) [address] [facility] [place], [address], 04/11/2025 13:12:12 04/10/20 25 04/11/2025 COMP. METAB OLIC PANEL (14) potassium 3.1 mmol/ L 3.5-5. 2 below low normal Not Available [facility] ([facility]) [address] [facility], [place], [address], 04/11/2025 13:12:12 04/10/20 25 04/11/2025 COMP. METAB OLIC PANEL (14) chloride 95 mmol/ L 96-106 below low normal Not Available [facility] ([facility]) [address] [facility] [place], [address], 04/11/2025 13:12:12 04/10/20 25 04/11/2025 COMP. METAB OLIC PANEL (14) carbon dioxide, total 23 mmol/ L 20-29 Not Available [facility] ([facility]) [address] [facility] [place], [address], 04/11/2025 13:12:12 04/10/20 25 04/11/2025 COMP. METAB OLIC PANEL (14) calcium 8.9 mg/dL 8.6-10 .2 Not Available [facility] ([facility]) [address] [facility] [place], [address], 04/11/2025 13:12:12 04/10/20 25 04/11/2025 COMP. METAB OLIC PANEL (14) protein, total 7.4 g/dL 6.0-8. 5 Not Available [facility] ([facility]) [address], [place], [address], 04/11/2025 13:12:12 04/10/20 25 04/11/2025 COMP. METAB OLIC PANEL (14) albumin 3.8 g/dL 3.8-4. 8 Not Available [facility] ([facility]) [address], [place], [address], 04/11/2025 13:12:12 04/10/20 25 04/11/2025 COMP. METAB OLIC PANEL (14) globulin, total 3.6 g/dL 1.5-4. 5 Not Available [facility] ([facility]) [address] [place], [address], 04/11/2025 13:12:12 04/10/20 25 04/11/2025 COMP. METAB OLIC PANEL (14) bilirubin, total 0.4 mg/dL 0.0-1. 2 Not Available [facility] ([facility]) [address] [place], [address], 04/11/2025 13:12:12 04/10/20 25 04/11/2025 COMP. METAB OLIC PANEL (14) alkaline phosphatase 105 IU/L 44-121 Not Available [facility] ([facility]) [address] [place], [address], 04/11/2025 13:12:12 04/10/20 25 04/11/2025 COMP. METAB OLIC PANEL (14) AST (SGOT) 12 IU/L 0-40 Not Available [facility] ([facility] [address] [facility] [place] [address], 04/11/2025 13:12:12 04/10/20 25 04/11/2025 COMP. METAB OLIC PANEL (14) ALT (SGPT) 9 IU/L 0-44 Not Available [facility] ([facility]) [address], [place], [address], 04/11/2025 13:12:12 04/10/20 25 04/11/2025 HEMOG LOBIN A1C hemoglobin A1C 6.5 % 4.8-5. 6 above high normal Predi abete s: 5.7 - 6.4 Diabe carmel: >6.4 Glyce cami contr ol for adult s with diabe carmel: <7.0 Not Available [facility] ([facility]) [address] [facility], [place], [address], 04/11/2025 13:12:13 04/10/20 25 04/11/2025 TSH TSH 3.260 uIU/m L 0.450- 4.500 Not Available [facility] ([facility]) [address] [facility], [place], [address], 04/11/2025 13:12:13 04/10/20 25 04/11/2025 CBC WITH DIFFE RENTI AL/PL ATELE T WBC 7.1 x10e3 /uL 3.4-10 .8 Not Available [facility] ([facility]) [address] [facility], [place], [address], 04/11/2025 13:12:14 04/10/20 25 04/11/2025 CBC WITH DIFFE RENTI AL/PL ATELE T RBC 3.51 x10e6 /uL 4.14-5 .80 below low normal Not Available [facility] ([facility]) [address] [facility], [place], [address], 04/11/2025 13:12:14 04/10/20 25 04/11/2025 CBC WITH DIFFE RENTI AL/PL ATELE T hemoglobin 9.3 g/dL 13.0-1 7.7 below low normal Not Available [facility] ([facility]) [address] [place], [address], 04/11/2025 13:12:14 04/10/20 25 04/11/2025 CBC WITH DIFFE RENTI AL/PL ATELE T hematocrit 31.5 % 37.5-5 1.0 below low normal Not Available [facility] ([facility]) [address] [place], [address], 04/11/2025 13:12:14 04/10/20 25 04/11/2025 CBC WITH DIFFE RENTI AL/PL ATELE T MCV 90 fL 79-97 Not Available [facility] ([facility]) [address] [place], [address], 04/11/2025 13:12:14 04/10/20 25 04/11/2025 CBC WITH DIFFE RENTI AL/PL ATELE T MCH 26.5 pg 26.6-3 3.0 below low normal Not Available [facility] ([facility]) [address] [place], [address], 04/11/2025 13:12:14 04/10/20 25 04/11/2025 CBC WITH DIFFE RENTI AL/PL ATELE T MCHC 29.5 g/dL 31.5-3 5.7 below low normal Not Available [facility] ([facility]) [address] [place], [address], 04/11/2025 13:12:14 04/10/20 25 04/11/2025 CBC WITH DIFFE RENTI AL/PL ATELE T RDW 17.3 % 11.6-1 5.4 above high normal Not Available [facility] ([facility]) [address] [place], [address], 04/11/2025 13:12:14 04/10/20 25 04/11/2025 CBC WITH DIFFE RENTI AL/PL ATELE T platelets 300 x10e3 /uL 150-45 0 Not Available [facility] ([facility]) [address] [place], [address], 04/11/2025 13:12:14 04/10/20 25 04/11/2025 CBC WITH DIFFE RENTI AL/PL ATELE T neutrophils 63 % notest ab. Not Available [facility] ([facility]) [address] [facility], [place], [address], 04/11/2025 13:12:14 04/10/20 25 04/11/2025 CBC WITH DIFFE RENTI AL/PL ATELE T lymphs 24 % notest ab. Not Available [facility] ([facility]) [address] [facility], [place], [address], 04/11/2025 13:12:14 04/10/20 25 04/11/2025 CBC WITH DIFFE RENTI AL/PL ATELE T monocytes 7 % notest ab. Not Available [facility] ([facility]) [address] [facility], [place], [address], 04/11/2025 13:12:14 04/10/20 25 04/11/2025 CBC WITH DIFFE RENTI AL/PL ATELE T eos 4 % notest ab. Not Available [facility] ([facility]) [address] [facility], [place], [address], 04/11/2025 13:12:14 04/10/20 25 04/11/2025 CBC WITH DIFFE RENTI AL/PL ATELE T basos 1 % notest ab. Not Available [facility] ([facility]) [address] [facility], [place], [address], 04/11/2025 13:12:14 04/10/20 25 04/11/2025 CBC WITH DIFFE RENTI AL/PL ATELE T neutrophils (absolute) 4.5 x10e3 /uL 1.4-7. 0 Not Available [facility] ([facility]) [address] [facility], [place], [address], 04/11/2025 13:12:14 04/10/20 25 04/11/2025 CBC WITH DIFFE RENTI AL/PL ATELE T lymphs (absolute) 1.7 x10e3 /uL 0.7-3. 1 Not Available [facility] ([facility]) [address] [facility], [place], [address], 04/11/2025 13:12:14 04/10/20 25 04/11/2025 CBC WITH DIFFE RENTI AL/PL ATELE T monocytes(ab solute) 0.5 x10e3 /uL 0.1-0. 9 Not Available [facility] ([facility]) [address] [facility], [place], [address], 04/11/2025 13:12:14 04/10/20 25 04/11/2025 CBC WITH DIFFE RENTI AL/PL ATELE T eos (absolute) 0.3 x10e3 /uL 0.0-0. 4 Not Available [facility] ([facility]) [address] [facility], [place], [address], 04/11/2025 13:12:14 04/10/20 25 04/11/2025 CBC WITH DIFFE RENTI AL/PL ATELE T baso (absolute) 0.1 x10e3 /uL 0.0-0. 2 Not Available [facility] ([facility]) [address] [facility], [place], [address], 04/11/2025 13:12:14 04/10/20 25 04/11/2025 CBC WITH DIFFE RENTI AL/PL ATELE T immature granulocytes 1 % notest ab. Not Available [facility] ([facility]) [address] [place], [address], 04/11/2025 13:12:14 04/10/20 25 04/11/2025 CBC WITH DIFFE RENTI AL/PL ATELE T immature grans (abs) 0.0 x10e3 /uL 0.0-0. 1 Not Available [facility] ([facility]) [address] [facility], [place], [address], 04/11/2025 13:12:14 04/10/20 25 04/11/2025 TRIIO DOTHY ARCELIA E (T3), FREE triiodothyro nine (T3), free 1.5 pg/mL 2.0-4. 4 below low normal Not Available [facility] ([facility]) [address], [place], [address], 04/11/2025 13:12:15 10/08/20 24 10/08/2024 XR, chest , 2 view No observ ation record ed. [address] [facility] [address], [place], [address], 10/08/2024 21:01:43 10/10/20 24 10/10/2024 XR, chest , 2 view No observ ation record ed. [address], [place], [address], 10/10/2024 20:32:46 02/15/20 25 02/14/2025 XR, foot, 3 or more view No observ ation record ed. [address], [place], [address], 02/15/2025 09:13:06 02/15/20 25 02/14/2025 XR, foot, 3 or more view No observ ation record ed. [address], [place], [address], 02/15/2025 09:13:31 Result Notes None recorded. Problems Name Problem SNOMED Code Status Onset Date Resolution Date Notes Provider Name and Address Organization Details Recorded Time Hypothyroidism 33311527 Active 2023 Dulce Hough MD Attn: Zuleyka g,[address], [place], [address], [place] - [facility] 4 15:09:04 Congestive heart failure 39443415 Active 2023 iMkki Arellano MA null, [place] [facility] 4 15:43:21 Peripheral vascular disease 098704561 Active 2023 Mikki Arellano [place], [place] [facility] 4 15:43:22 Chronic kidney disease stage 3 741723734 Active 2023 Dulce Hough MD Attn: Zuleyka hunter,[address] [facility], [place], [address], [place] [facility] 4 13:31:06 Diabetes mellitus 01754171 Active 2023 Dulce Hough MD Attn: Zuleyka hunter,[address] [facility], [place], [address], [place] [facility] 4 08:12:59 Atrial fibrillation 27703863 Active 2023 Dulce Hough MD Attn: Zuleyka hunter,[address] [facility], [place], [address], [place] [facility] 4 15:52:15 Essential hypertension 75468648 Active 2024 Mikki Arellano [place] null, [place] [facility] 5 12:28:01 Chronic diastolic heart failure 957694708 Active 2024 Dulce Hough MD Attn: Zuleyka hunter,[address] [facility], [place], [address], [place] [facility] 5 16:01:07 Hyperlipidemia 14908826 Active 2024 Heidi Toro LPN null, [place] [facility] 5 15:31:25 Problem Notes None recorded. Procedures Surgical History Date Name Laterality Status Provider Name and Address Organization Details Recorded Time Knee Surgery completed NELIDA Hummel [place] - [facility] 02/06/2024 16:28:35 Imaging Results Imaging Date Name Status [facility]Modified by [facility] Details LastModified Time 10/08/2024 XR, chest, 2 view completed [address] [facility] [address], [place], [address], 10/08/2024 21:01:43 10/10/2024 XR, chest, 2 view completed [facility] [address], [place], [address], 10/10/2024 20:32:46 02/14/2025 XR, foot, 3 or more view completed [place] [id number] [facility] [address], [place], [address], 02/15/2025 09:13:06 02/14/2025 XR, foot, 3 or more view completed [place] [id number] [facility] [address], [place], [address], 02/15/2025 09:13:31 Procedure Notes None recorded. Medical Equipment None Reported. Allergies No known drug allergies Medications Name Sig Start Date Stop Date Status Note LastModified by Organization Details LastModified Time metolazone 2.5 mg tablet TAKE 1 TABLET BY MOUTH EVERY MORNING 30 MINUTES BEFORE BUMETANI DE ON // active Not Available Not Available No t Available doxycyclin e hyclate 100 mg capsule Take 1 capsule twice a day by oral route for 7 days. 04/03 completed Not Available Not Available Not Available atorvastat in 20 mg tablet Take 1 tablet every day by oral route. 2024 active Not Available Not Available Not Avai lable atorvastat in 10 mg tablet TAKE 1 TABLET BY MOUTH EVERY DAY 04/03 completed Not Available Not Available Not Available amiodarone 200 mg tablet Take 1 tablet twice a day by oral route. 2024 active Not Available Not Available Not Avai lable amlodipine 2.5 mg tablet TAKE 1 TABLET BY MOUTH EVERY DAY 07/03 completed Not Available Not Available Not Available clopidogre l 75 mg tablet TAKE 1 TABLET BY MOUTH EVERY DAY 2024 active Not Available Not Available Not Avai lable tramadol 50 mg tablet Take 1 tablet twice a day by oral route. active Not Available Not Available No t Available oxycodone- acetaminop hen 5 mg-325 mg tablet 04/03 completed Not Available Not Available Not Available famotidine 20 mg tablet TAKE 1 TABLET BY MOUTH EVERY DAY active Not Available Not Available No t Available tamsulosin 0.4 mg capsule TAKE 1 CAPSULE BY MOUTH EVERY DAY active Not Available Not Available No t Available Halo NeuroscienceTouch Ultra Test strips Take 1 strip 4 times a day by miscell. route, for to check sugars. 04/03 completed Not Available Not Available Not Available benzonatat e 100 mg capsule 04/03 completed Not Available Not Available Not Available levothyrox ine 50 mcg tablet TAKE 1 TABLET BY MOUTH EVERY DAY active Not Available Not Available No t Available cephalexin 500 mg capsule 01/04 completed Not Available Not Available Not Available ferrous sulfate 325 mg (65 mg iron) tablet Take 1 tablet every day by oral route. active Not Available Not Available No t Available bumetanide 1 mg tablet Take 1 tablet twice a day by oral route. active Not Available Not Available No t Available albuterol sulfate HFA 90 mcg/actuat ion aerosol inhaler INHALE 2 PUFFS BY MOUTH EVERY 4 HOURS 2024 active Not Available Not Available Not Avai lable insulin lispro (U-100) 100 unit/mL subcutaneo us pen INJECT 10 UNITS UNDER THE SKIN WITH MEALS active Not Available Not Available No t Available metoprolol tartrate 25 mg tablet Take 1 tablet twice a day by oral route. 2024 active Not Available Not Available Not Avai lable ramelteon 8 mg tablet Take 1 tablet every day by oral route at bedtime. active Not Available Not Available No t Available Levemir FlexPen 100 unit/mL (3 mL) solution subcutaneo us insulin pen ADMINIST ER 25 UNITS UNDER THE SKIN TWICE DAILY 10/31 completed pt is on lantus now. Not Available Not Available Not Available Lantus Solostar U-100 Insulin 100 unit/mL (3 mL) subcutaneo us pen ADMINIST ER 25 UNITS UNDER THE SKIN TWICE DAILY 2024 active Not Available Not Available Not Avai lable magnesium citrate 100 mg tablet Take 2 tablets every day by oral route at bedtime. 2024 active Not Available Not Available Not Avai lable Eliquis 5 mg tablet 1 po bid active Not Available Not Available N ot Available Dexcom G7 Sensor device CHANGE EVERY 10 DAYS 2024 active Not Available Not Available Not Avai lable Vitals Date Recorded Body height Heart rate Oxygen saturation Oxygen saturation in Arterial blood by Pulse oximetry Systolic blood pressure Diastolic blood pressure Provider Name and Address Organization Details Last Updated DateTime 182.88 cm 69 /min 99 % 99 % 110 mm[Hg] 66 mm[Hg] Quynh Mckeon [facility] 4 14:40:21 Date Recorded Body height Heart rate Oxygen saturation Oxygen saturation in Arterial blood by Pulse oximetry Systolic blood pressure Diastolic blood pressure Provider Name and Address Organization Details Last Updated DateTime 4 182.88 cm 75 /min 98 % 98 % 108 mm[Hg] 70 mm[Hg] Praveen Bolaños MA [facility] 4 15:27:48 Date Recorded Body height Heart rate Oxygen saturation Oxygen saturation in Arterial blood by Pulse oximetry Systolic blood pressure Diastolic blood pressure Provider Name and Address Organization Details Last Updated DateTime 4 182.88 cm 70 /min 99 % 99 % 110 mm[Hg] 60 mm[Hg] Janet Rankin MA [facility] 4 14:22:23 Date Recorded Body height Heart rate Oxygen saturation Oxygen saturation in Arterial blood by Pulse oximetry Systolic blood pressure Diastolic blood pressure Provider Name and Address Organization Details Last Updated DateTime 5 182.88 cm 70 /min 99 % 99 % 112 mm[Hg] 72 mm[Hg] Bekah Morris MA [facility] 5 12:11:40 Date Recorded Body height Heart rate Oxygen saturation Oxygen saturation in Arterial blood by Pulse oximetry Systolic blood pressure Diastolic blood pressure Provider Name and Address Organization Details Last Updated DateTime 5 182.88 cm 67 /min 99 % 99 % 114 mm[Hg] 70 mm[Hg] Mari Nicolas MA [facility] 5 13:59:18 Social History Question Answer Notes LastModified by Organizat ion Details LastModified Time Tobacco Smoking Status Never Smoker NELIDA Hummel, [facility] 02/06/2024 16:28:25 Are You Blind Or Do You Have [...] Date Of Your Most Recent Tobacco Screening? 04/10/2025 Non Smoker [email or web address] Information not available 04/10/2025 What Is Your Relationship Status? Information not available 07/03/2024 Do You Use Your Seat Belt Or Car Seat Routinely? Yes Information not available 07/03/2024 Do You Have Smoke And Carbon Monoxide Detectors In Your Home? Yes Information not available 07/03/2024 Has Tobacco Cessation Counseling Been Provided? No Information not available 07/03/2024 Sex: Male Functional Status Question Answer Note LastModified by [employer] ion Details LastModified Time Do you use any illicit or recreational drugs? No Information not available 07/03/2024 Do you or have you ever used any other forms of tobacco or nicotine? No Information not available 07/03/2024 What is your level of alcohol consumption? None Information not available 07/03/2024 Are you able to care for yourself? Yes Information not available 07/03/2024 What is your exercise level? None Information not available 07/03/2024 Mental Status Question Answer Note LastModified by Organization D etails LastModified Time Do you feel stressed (tense, restless, nervous, or anxious, or unable to sleep at night)? [id number] Information not available 07/03/2024 Family History Relationship Description Onset Age of this Age Resolved Age Notes LastModified by Organization Details LastModified Time Father Malignant neoplasm of lung [email or web address] Not available 01/19 16:29:11 Father Heart disease [email or web address] Not available 01/19 16:29:17 Father Hypertensive disorder [email or web address] Not available 01/19 16:29:25 Father Diabetes mellitus [email or web address] Not available 01/19 16:29:33 Medical History Condition Response High Blood Pressure Y Kidney or Bladder Problems Y Diabetes Y Headaches Y Immunizations Vaccine Type Date Status Note Provider Nam e and Address Organization Details Recorded Time Influenza, high-dose, quadrivalent, PF 3 completed Louann [place], [place] [facility] 05/31/2024 13:54:32 Td (adult), 2 Lf tetanus toxoid, preservative free, adsorbed 2 completed Lou[place], [place] [facility] 05/31/2024 13:54:32 Influenza, high-dose, trivalent, PF 4 completed Dulce Hough MD Attn: Accounting,[address] [place], [address], [facility] - [facility] 10/14/2024 15:48:54 Pneumococcal conjugate PCV20, polysaccharide [id number] conjugate, adjuvant, PF 5 completed Dulce Hough MD Attn: Accounting[address] [place], [address], [place] [facility] 01/05/2025 15:59:40 Influenza, high-dose, trivalent, PF 5 completed Dulce Hough MD Attn: Accounting,[address] [place], [address], [place] [facility] 01/05/2025 15:59:40 Past Encounters Encounter ID Performer Location Encounter Start Date Encounter Closed Date Diagnosis/Indication Diagnosis SNOMED-CT Code Diagnosis ICD10 Code Diagnosis Note [id number] Dulce Hough MD [facility] (Adult Med) [address] [place] [phone] 02/06/2024 15:12:48 02/06/2024 16:38:30 Type 2 diabetes mellitus 36195961 E11.9 Peripheral arterial occlusive disease 155685662 I73.9 Neuropathy 920920499 G62 .9 Obesity 334760216 E66.9 Hyperlipidemia 42897590 E78.5 Chronic di astolic heart failure 022101361 I50.32 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 Hypothyroidism 76841752 E03.9 [id number] Dulce Hough MD [facility] (Adult Med) [address] [place] [id number] 04/03/2024 14:28:15 04/03/2024 15:51:52 Congestive heart failure 09103637 I50.9 Peripheral vascular disease 083240365 I73.9 Hypothyroidism 34106917 E03.9 Type 2 carlos betes mellitus 36042304 E11.9 Chronic di astolic heart failure 873907678 I50.32 Chronic ki dney disease stage 3 293222879 N18.30 [id number] [facility] [address] [place] [id number] 07/03/2024 15:03:59 07/03/2024 16:25:48 Type 2 diabetes mellitus without complication 619750804 E11.9 Essential hypertension 53763950 I10 Hyperlipidemia 93550840 E78.5 Hypothyroidism 71507993 E03.9 Diabetes mellitus 157150 09 E13.42 [id number] Dulce Hough MD [facility] (Adult Med) [address] [place] [id number] 10/03/2024 14:10:53 10/03/2024 14:43:45 Administration of influenza vaccine 97389082 Z23 Diabetes mellitus 637918 09 E13.42 Congestive heart failure 37218804 I50.9 Hypothyroidism 63525535 E03.9 Atrial fibrillation 4943 6004 I48.91 [id number] MD Ra[facility] Fuentes (Adult Med) [address] [place] [id number] 01/04/2025 11:58:51 01/04/2025 12:50:28 Diabetes mellitus 91585657 E13.42 Hypothyroidism 57809615 E03.9 Obesity 875900907 E66.9 Essential hypertension 41453865 I10 Abnormal gait [id number] R 26.9 Administra tion of pneumococcal vaccine 90628188 Z23 Administra tion of influenza vaccine [id number] Z23 Atrial fibrillation 4943 6004 I48.91 Chronic di astolic heart failure 734687857 I50.32 [id number] MD [facility] (Adult Med) [address] [place] [address] 04/10/2025 13:44:35 04/10/2025 14:46:46 Essential hypertension 01520390 I10 Hypothyroidism 64690496 E03.9 Diabetes mellitus 323855 09 E13.42 Repeated prescription 18 5158659 Z76.0 Ordered per written permission from Dr. Hough [facility] Concerns Section Related Observation LastModified by Organization Detai ls LastModified Time None Recorded Concern Status LastModified by Organization Details LastModified Time None Recorded Advance Directives Directive None Recorded Payers Encounter Date Sequence Insurance Name Policy Number Policy Mccrary Covered Member ID Mccrary Member ID Guarantor Name 04/03/2024 1 [facility] (MEDICARE REPLACEMENT/A DVANTAGE - HMO) [id number] Gildardo Kat [id number] Gildardo Kat 07/03/2024 1 [employer] (MEDICARE REPLACEMENT/A DVANTAGE - HMO) [id number] Gildardo Kat [id number] Gildardo Kat 10/03/2024 1 [facility] [facility] (MEDICARE REPLACEMENT/A DVANTAGE - HMO) [id number] Gildardo Kat [id number] Gildardo Kat 01/04/2025 1 [facility] (MEDICARE REPLACEMENT/A DVANTAGE - HMO) [id number] Gildardo Kat [id number] Gildardo Kat Notes Date Note Type Note Provider Name and Address Organization Details Recorded Time 04/03/2024 text/html Here for follow- up of his medical problems diabetes BG's been okay he still needs to see cardiology having trouble mobilizing fluid hypothyroid he is always tired diabetes no polyphagia polydipsia Dulce Hough MD Attn: Accounting,[address] [facility], [place], [address], [facility] 04/29/2024 13:31:25 07/03/2024 text/html diabetes does no t take sugars or polyphagia polydipsia eats a lot of chips and processed food hypertension no headache or dizziness hyperlipidemia eats whatever he wants he is going to physical therapy or has neuropathy. He quit taking his insulin for no good reason Dulce Hough MD Attn: Accounting,[address] [facility], [place], [address], [facility] 07/06/2024 08:14:27 10/03/2024 text/html diabetes not any [...] fever. Dulce Hough MD Attn: Accounting, [address] [facility], [place], [address], [facility] 10/14/2024 15:53:02 01/04/2025 text/html here for follow [...] deconditioning. Atrial fibrillation no palpitations or dizziness Dulce Hough MD Attn: Accounting, [address] [facility], [place], [address], [facility] 01/05/2025 16:03:26
--- OUTSIDE RECORDS SUMMARY | 2025-04-11 18:15 | XMS_ITS | Data Portability ---
Author Organization [place] - [place] [employer] [facility], Main Office Address [address] [place] [address] Assessment Encounter Date Assessment Date Assessment LastModified by Organization Details LastModified Time 05/29/2024 05/29/2024 This note is dictated and transcribed by [email or web address]. [employer] Reprocess Operator variances may occur. Despite proofreading, typographical errors may occur. Occasional wrong-word or 'aoutn-i-bieh' substitutions may have occurred due to the inherent limitations of voice recording. Read the chart carefully and recognize, using context, where substitutions have occurred. Not available 06/07/2024 09:53:59 06/06/2024 06/06/2024 This note is dictated and transcribed by [email or web address]. [employer]ro[employer] Operator variances may occur. Despite proofreading, typographical errors may occur. Occasional wrong-word or 'plhfo-e-bvot' substitutions may have occurred due to the inherent limitations of voice recording. Read the chart carefully and recognize, using context, where substitutions have occurred. Not available 06/07/2024 09:50:47 08/28/2024 08/28/2024 This note is dictated and transcribed by [email or web address]. [employer]ro[employer] Operator variances may occur. Despite proofreading, typographical errors may occur. Occasional wrong-word or 'rkhoe-h-rqwc' substitutions may have occurred due to the inherent limitations of voice recording. Read the chart carefully and recognize, using context, where substitutions have occurred. Not available 08/28/2024 16:09:23 02/13/2025 02/13/2025 This note is dictated and transcribed by [email or web address]. [employer] Repro[employer] Operator variances may occur. Despite proofreading, typographical errors may occur. Occasional wrong-word or 'thrhq-s-obek' substitutions may have occurred due to the [...] By Organization Details Last Modified Time 04/02/2024 [id number] 1. Will increase Metolazone from 2.5 to [...] Details Recorded Time Edema of lower extremity 449938280 Active 2022 Not Available [facility] 4 22:46:30 Renewal of prescript ion Active 2021 Not Available [facility] 4 22:46:30 Acute kidney injury 30362488 Active Not Available [facility] 4 22:46:30 Standard chest X-ray abnormal 744504538 Active 2021 Not Available [facility] 4 22:46:30 Neuropath y due to diabetes mellitus 019406060 Active 2021 Not Available [facility] 4 22:46:30 Pneumonia 090655973 Active 2021 Not Available [facility] 4 22:46:30 Edema 760783316 Active 2021 Not Available [facility] 4 22:46:30 Swelling of scrotum 805416934 Completed Not Available [facility] 3 05:56:42 Celluliti s of finger 08942910 Completed Not Available [facility] 3 05:56:42 Abscess of scrotum 83658027 Completed Not Available [facility] 3 05:56:42 Low back pain 542416719 Active 2021 Not Available [facility] 4 22:46:30 Dog bite of hand 864741593 Active 2021 Not Available [facility] 4 22:46:30 Type 2 diabetes mellitus without complicat ion 496338666 Active Not Available [facility] 4 22:46:30 Bronchiti s 57071453 Active 2021 Not Available [facility] 4 22:46:30 Celluliti s of scrotum 53711515 Completed Not Available [facility] 3 05:56:43 Dyslipide quan 263266282 Active Not Available [facility] 4 22:46:30 Migraine 06410530 Active 2021 Not Available [facility] 4 22:46:30 Osteoarth ritis 471699684 Active Not Available [facility] 4 22:46:30 Obesity 338263616 Active Not Available [facility] 4 22:46:30 Diabetic periphera l neuropath y 700488256 Active 2021 Not Available [facility] 4 22:46:30 Chronic diastolic heart failure 626680444 Active 2021 Not Available [facility] 4 22:46:30 Screening for malignant neoplasm of prostate Active 2021 Not Available [facility] 4 22:46:31 Dysuria 95628026 Completed Not Available [facility] 3 05:56:43 Cough 92849180 Active 2021 Not Available [facility] 4 22:46:31 Upper respirato ry infection 84661662 Active 2021 Not Available [facility] 4 22:46:31 Acute upper respirato ry infection 36587761 Active 2021 Not Available [facility] 4 22:46:31 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 74082134 Active 2020 Not Available [facility] 4 22:46:31 Essential hypertens ion 86710512 Active Not Available [facility] 4 22:46:31 Pleural effusion 65743557 Active 2021 Not Available [facility] 4 22:46:31 Diabetes mellitus 79158708 Completed NELIDA Steen, [place] [facility] 3 17:44:13 Hyperglyc emia 00157346 Active Not Available [facility] 4 22:46:31 Neck pain 92661593 Active 2021 Not Available [facility] 4 22:46:31 COVID-19 932849970 Active 2021 Not Available [facility] 4 22:46:31 Hyperlipi demia 19827982 Active 2022 Not Available [facility] 4 22:46:31 Chronic ulcer of heel 11735528315 085101 Active 2022 Not Available [facility] 4 22:46:30 Periphera l arterial occlusive disease 812032251 Active 2022 Not Available [facility] 4 22:46:30 Open wound of right foot 12585954411 932979 Active 2022 Not Available [facility] 4 22:46:30 Neuropath y 344571712 Active 2022 Not Available [facility] 4 22:46:30 Diabetes mellitus 21573041 Active 2022 Not Available [facility] 4 22:46:31 Open wound of right lower leg 82196312400 587552 Active 2023 Not Available [facility] 4 22:46:30 Periphera l vascular disease 805224621 Active 2023 Daniel Roland, DPTigist [address], [facility] [address], [place], [address] , [facility] 4 14:54:34 Dystrophi a unguium 43613724 Active 2023 Daniel Roland DPM [address], [address], [place], [address] , [facility] 4 14:56:34 Ulcer of toe 867367054 Active 2023 Daniel Roland DPM [address], [address], [place], [address] , [facility] [employer] [facility] 4 14:56:46 Ulcer of lower extremity 30021205 Active 2023 Daniel Roland DPM [address], [address], [place], [address] , [facility] 4 14:57:07 Lymphedem a of lower extremity 537837785 Active 2023 Daniel Roland DPM [address], [address], [place], [address] , [facility] [employer] [facility] 4 14:57:13 Abrasion of skin of lower limb 621409227 Active 2023 Daniel Roland DPM [address], [address], [place], [address] , [facility] 4 09:50:50 Ulcer of lower extremity 02640074 Active 2023 Daniel Roland DPM [address], [address], [place], [address] , [facility] 4 09:51:13 Ulcer of right foot due to type 2 diabetes mellitus 15445383662 715924 Active 2024 Daniel Roland DPM [address], [address], [place], [address] , [facility] 5 16:44:59 Ulcer of left foot due to type 2 diabetes mellitus 35471145091 668553 Active 2024 Daniel Roland DPM [address], [address], [place], [address] , [facility] [employer] [facility] [employer] [facility] 16:45:04 Lymphedem a of bilateral lower limbs 94317482429 346751 Active 2024 Daniel Roland DPM [address], [address], [place], [address] , [facility] [employer] [facility] [employer] [facility] 16:45:55 Notes:Some problems listed i n Documents: #[id number], #[id number] could not be added to this patient's chart. Please review these documents and add these problems to the patient's chart manually as needed. Problem Notes None recorded. Procedures Surgical History Date Name Laterality Status Provider Name and Address Organization Details Recorded Time 02/14/20 25 Wound Care-Podiatry completed Guerline Humphreys RN [facility] [employer] [facility] 02/13/2025 16:29:00 08/28/20 24 Nail Debridement completed Daniel Roland DPM [address], [address], [place], [address], [facility] [employer] [facility] 08/28/2024 16:07:22 06/06/20 24 Wound Care-Podiatry completed Guerline Humphreys RN [facility] [employer] [facility] 06/06/2024 16:31:33 05/29/20 24 Nail Debridement completed Daniel Roland DPM [address], [address], [place], [address], [facility] [employer] [facility] 06/07/2024 09:55:15 04/02/20 24 Blank Procedure completed Paolo Ewing RN [facility] [employer] [facility] 04/02/2024 11:40:22 02/22/20 24 Wound Care-Podiatry completed Daniel Roland DPM [address], [address], [place], [address], [facility] [employer] [facility] [employer] [facility] 02/22/2024 12:16:33 02/22/20 24 Callus Debridement, One completed Daniel Roland DPM [address], [address], [place], [address], [place] [employer] 02/22/2024 12:16:39 02/08/20 24 Wound Care-Podiatry completed Daniel Roland DPM [address], [address], [place], [address], [employer] [facility] [employer] [facility] 02/08/2024 16:03:13 01/25/20 24 Wound Care-Podiatry completed Daniel Roland DPM [address], [address], [place], [address], [employer] 01/26/2024 15:09:56 01/11/20 24 Wound Care-Podiatry completed Daniel Roland DPM [address], [address], [place], [address], [employer] [facility] 01/11/2024 15:05:23 12/28/19 24 Wound Care-Podiatry completed Daniel Roland DPM [address], [address], [place], [address], [employer] [facility] 12/28/2023 14:58:19 12/14/19 24 Wound Care-Podiatry completed Guerline Humphreys RN MA [employer] [facility] 12/14/2023 15:19:29 11/02/20 23 Wound Care-Podiatry completed Daniel Roland DPM [address], [address], [place], [address], [employer] [facility] [employer] [facility] 11/02/2023 15:19:28 05/25/20 23 Wound Care-Podiatry completed Brittani Núñez RN MA [employer] [facility] 06/01/2023 15:07:13 03/03/20 15 Explore scrotum completed Not Available [facility] 11/2022 05:52:58 03/03/20 15 incision and drainage of abscess completed Not Available [facility] 01/19/2023 05:52:58 Imaging Results Imaging Date Name Status LastModified by [facility] Details LastModified Time 02/08/2024 rhythm strip, EKG* [...] completed Not Available Not Available Not Available [employer] Ultra Test strips use to test blood [...] e 50 mcg/actua tion nasal spray,[employer] [place] 2 sprays every day by intranas al [...] 104 mm[Hg] 61 mm[Hg] Paolo Ewing RN [facility] [employer] [facility] 4 11:15:42 Date Recorded Body height Heart rate Systolic blood pressure Diastolic blood pressure Provider Name and Address Organization Details Last Updated DateTime 05/29/2024 182.88 cm 85 /min 144 mm[Hg] 94 mm[Hg] Tisha Villarreal CNA [facility] 05/29/2024 14:38:07 Date Recorded Body height Heart rate Respiratory rate Body temperature Oxygen saturation Oxygen saturation in Arterial blood by Pulse oximetry Systolic blood pressure Diastolic blood pressure Provider Name and Address Organization Details Last Updated DateTime 4 182.88 cm 101 /min 18 /min 98.1 [degF] 97 % 97 % 126 mm[Hg] 76 mm[Hg] Guerline Humphreys RN [facility] 4 16:34:03 Date Recorded Body height Heart rate Respiratory rate Oxygen saturation Oxygen saturation in Arterial blood by Pulse oximetry Provider Name and Address Organization Details Last Updated DateTime 4 182.88 cm 98 /min 16 /min 97 % 97 % Mary David [facility] [employer] [facility] 4 15:39:53 Date Recorded Body height Body temperature Respiratory rate Oxygen saturation Oxygen saturation in Arterial blood by Pulse oximetry Heart rate Systolic blood pressure Diastolic blood pressure Provider Name and Address Organization Details Last Updated DateTime 5 182.88 cm 98.3 [degF] 18 /min 98 % 98 % 76 /min 149 mm[Hg] 72 mm[Hg] Melissa Esquivel MA [employer] [facility] 5 16:03:31 Social History Question Answer Notes LastModified by Organization Details LastModified Time Tobacco Smoking Status Never Smoker Not Available [facility] 01/19/2023 05:52:19 Do You Have An Advance Directive? No MIGRATION.030 080301 Information not available 01/19/2023 Are You Blind Or Do You Have Difficulty Seeing? Yes MIGRATION.030 813963 Information not available 01/19/2023 What Is Your Level Of Caffeine Consumption? None MIGRATION.030 333597 Information not available 01/19/2023 In The 14 Days Before Symptom Onset, Have You Had Close Contact With A Laboratory-confi rmed COVID-19 While That Case Was Ill? No MIGRATION.030 285959 Information not available 01/19/2023 In The 14 Days Before Symptom Onset, Have You Had Close Contact With A Person Who Is Under Investigation For COVID-19 While That Person Was Ill? No MIGRATION.030 701244 Information not available 01/19/2023 Are You Deaf Or Do You Have Serious Difficulty Hearing? No MIGRATION.030 885891 Information not available 01/19/2023 What Type Of Diet Are You Following? REGULAR MIGRATION.300 096101 Information not available 01/19/2023 What Is The Highest Grade Or Level Of School You Have Completed Or The Highest Degree You Have Received? UM40173-4 MIGRATION.300026 Information not available 01/19/2023 Have There Been Any Changes To Your Family Or Social Situation? No MIGRATION.030 459234 Information not available 01/19/2023 What Is The Fluoride Status Of Your Home? Unknown MIGRATION.030 927242 Information not available 01/19/2023 Are There Any Guns Present In Your Home? Yes MIGRATION.030 623206 Information not available 01/19/2023 Do You Use Insect Repellent Routinely? No MIGRATION.030 660647 Information not available 01/19/2023 Where Do You Live? SingleLevelHouse With Basement MIGRATION.300 676206 Information not available 01/19/2023 Do You Have A Medical Power Of Front Office Representative? No MIGRATION.030 372486 Information not available 01/19/2023 What Was The Date Of Your Most Recent Tobacco Screening? 10/24/2023 [email or web address] Information not available 10/24/2023 Do You Have Any Pets? Yes MIGRATION.030 624984 Information not available 01/19/2023 What Is Your Relationship Status? MIGRATION.030 927269 Information not available 01/19/2023 Do You Use Your Seat Belt Or Car Seat Routinely? Yes MIGRATION.0301 991506 Information not available 01/19/2023 Do You Have Smoke And Carbon Monoxide Detectors In Your Home? Yes MIGRATION.0301 029864 Information not available 01/19/2023 Are You Passively Exposed To Smoke? No MIGRATION.0301 590937 Information not available 01/19/2023 Are There Any Smokers In Your House? No MIGRATION.0301 613956 Information not available 01/19/2023 What Types Of Sporting Activities Do You Participate In? None MIGRATION.0301 720201 Information not available 01/19/2023 Do You Use Sunscreen Routinely? No MIGRATION.0301 494839 Information not available 01/19/2023 Has Tobacco Cessation Counseling Been Provided? No Not Needed-nev er Smoked MIGRATION.0301 365358 Information not available 01/19/2023 Have You Recently Traveled Abroad? No MIGRATION.0301 931094 Information not available 01/19/2023 Do You Have Difficulty Walking Or Climbing Stairs? Yes MIGRATION.0301 057782 Information not available 01/19/2023 Do You Have Any Dietary Restrictions? No MIGRATION.0301 478852 Information not available 01/19/2023 Sex: Male Functional Status Question Answer Note LastModified by Organizat ion Details LastModified Time Do you use any illicit or recreational drugs? No MIGRATION.46210 50551 Information not available 01/19/2023 Do you or have you ever used any other forms of tobacco or nicotine? No MIGRATION.49216 91700 Information not available 01/19/2023 What is your level of alcohol consumption? Occasional MIGRATION.91796 64647 Information not available 01/19/2023 Do you have transportation difficulties? Yes Patient does not drive. MIGRATION.12213 68130 Information not available 01/19/2023 Are you able to walk? YESASSIST cane MIGRATION.89302 84050 Information not available 01/19/2023 Do you have difficulty doing errands alone? Yes Patient does not drive. MIGRATION.00123 05335 Information not available 01/19/2023 Are you able to care for yourself? Yes MIGRATION.63801 55965 Information not available 01/19/2023 What is your occupation? retired MIGRATION.94100 63577 Information not available 01/19/2023 Do you have difficulty dressing or bathing? No MIGRATION.27355 04704 Information not available 01/19/2023 What is your exercise level? None MIGRATION.62446 61584 Information not available 01/19/2023 Mental Status Question Answer Note LastModified by Organizat ion Details LastModified Time Do you feel stressed (tense, restless, nervous, or anxious, or unable to sleep at night)? LF5731-1 MIGRATION.42252601 Information not available 01/19/2023 Do you have difficulty concentrating, remembering or making decisions? No MIGRATION.17268316 Information not available 01/19/2023 Family History Relationship Description Onset Age of this Age Resolved Age Notes LastModified by Organization Details LastModified Time Father Heart disease MIGRATION.224 [id number] Not available 01/19/2023 05:52:59 Mother Malignant tumor of breast MIGRATION.277 2327501 Not available 01/19/2023 05:52:59 Medical History Condition Response BLINDNESS N NERVE DISEASE N RHEUMATIC FEVER N BLADDER PROBLEMS N KIDNEY STONES N MRSA N OTHER # 1 N [...] ARTERY DISEASE (CAD) N ADDICTION CONCERNS N ENDOMETRIOSIS N Impotence N USE OF BLOOD THINNERS N SKIN [...] GLAUCOMA N FOOT PROBLEM N DIVERTICULITIS N CHICKENPOX N SLEEP APNEA N INFECTIOUS DISEASE N HEART ARRHYTHMIA N PROSTATE N INSOMNIA N HIGH CHOLESTEROL / HYPERLIPIDEMIA Y HYPERTHYROIDISM N EYE PROBLEMS N EDEMA N CHRONIC PAIN SYNDROME N HYPOTHYROIDISM N CAROTID BLOCKAGE N CONSTIPATION N BACK / NECK PROBLEMS N HAVE YOU BEEN HOSPITALIZED OR SEEN IN [facility] IN THE PAST YEAR ? Y ATHEROSCLEROSIS N BREAST PROBLEMS N DIALYSIS N ECZEMA N OSTEOPOROSIS N ARTHRITIS Y APPENDICITIS N DIABETES, TYPE Y BAD TEETH N ENT N HEARTBURN / REFLUX N AUTISM SPECTRUM DISORDER (ASD) N HEPATITIS / LIVER DISEASE N GOUT N SLEEP DISORDER N ALZHEIMER'S DISEASE N Brain Problems N HERPES N DEMENTIA N HEADACHES/MIGRAINES N SEIZURES/EPILEPSY N VASCULAR DISEASE N PACEMAKER N Blood Disorder N DIZZINESS N HEART DISEASE/HEART PROBLEMS N KIDNEY DISEASE Y MULTIPLE SCLEROSIS N CARDIAC ARRHYTHMIA N CANCER: SPECIFY N ATRIAL FIBRILLATION N Gall Stones N PULMONARY EMBOLISM N AUTOIMMUNE DISEASE N Immunizations Vaccine Type Date Status Note Provider Nam e and Address Organization Details Recorded Time Td (adult), 2 Lf tetanus toxoid, preservative free, adsorbed 2 completed Not Available [facility] 01/01/2024 22:46:31 Past Encounters Encounter ID Performer Location Encounter Start Date Encounter Closed Date Diagnosis/Indication Diagnosis SNOMED-CT Code Diagnosis ICD10 Code Diagnosis Note [id number] Bryan Hough MD S_G Internal Med [facility] [address] [address] 08/10/2021 00:00:00 08/23/2021 17:37:52 [id number] Bryan Hough MD [facility] Internal Med [facility] [address] [place] [address] 08/21/2021 00:00:00 08/23/2021 11:41:29 [id number] Bryan Hough MD [facility] Internal Med [facility] [address] [place] [address] 09/18/2021 00:00:00 09/18/2021 21:33:06 [id number] Bryan Hough MD [facility] Internal Med [facility] [address] [place] [address] [address] 10/14/2021 00:00:00 10/15/2021 12:47:46 [id number] Bryan Hough MD [facility] Internal Med [facility] [address] [place] [address] 11/23/2021 00:00:00 11/23/2021 22:52:36 [id number] Bryan Hough MD S_[facility] Internal Med [address]43 [facility] [address] [place] [address] 12/28/2021 00:00:00 01/24/2022 21:41:44 [id number] Bryan Hough MD [facility] 15 [address]43 [facility] [address] [place] [address] 03/22/2022 00:00:00 04/12/2022 22:14:24 [id number] Bryan Hough MD [facility] 15 2043 [facility] [address] [address] 03/31/2022 00:00:00 03/31/2022 20:59:28 [id number] Juan Amado MD [facility] [place] [address] [facility] [address] [place] [address] 05/21/2022 00:00:00 05/21/2022 10:46:27 [id number] Juan Amado MD [facility] [place] [address] [facility] [address] [place] [address] 08/03/2022 00:00:00 08/03/2022 16:40:33 [id number] Bryna Hough MD [facility] [address] [facility] [address] [address] 08/06/2022 00:00:00 08/07/2022 12:10:38 [id number] Bryan Hough MD [facility] Internal [facility] [address] [facility] [address] [address] 10/11/2022 00:00:00 10/16/2022 17:42:43 [id number] Bryan Hough MD [facility] Internal [facility] [address] [facility] [address] [address] 10/25/2022 00:00:00 10/25/2022 23:57:09 [id number] Bryan Hough MD [facility] Internal Med [place] [address] [address] [facility] , [place] [address] 02/08/2023 14:55:35 02/08/2023 17:12:09 Chronic diastolic heart failure 834503988 I50.32 Neuropathy due to diabetes mellitus 358703476 E11.40 Essential hypertension 56195295 I10 Hyperlipidemia 47827116 E78.5 [id number] Daniel Roland DPM [facility] [address] [place] [address] 05/25/2023 14:45:14 05/25/2023 18:39:59 Chronic ulcer of heel 3185161419 6124209 L97.412 continue daily wound careFollow -up x-raysWoun d is down to tendon with mild necrosisre commend Santyl applicatio n daily to right heel woundconti nue protective devices with offloading all times Diabetic p eripheral neuropathy 096219879 E11.42 Patient educated on neuropathy , diabetes, diabetic diet, and daily foot exams. Patient is to check feet daily for new wounds, blisters, redness to prevent infection and ulceration s to the feet. Patient will return to clinic in 3 months for diabetic foot workup. Peripheral arterial occlusive disease 162711510 I73.9 continue with vascular recommenda tioncontin ue with offloading devices to prevent worsening at all times [id number] Bryan Hough MD S[facility] [facility] [address] [facility], [facility] [address] [place] [address] 10/24/2023 14:34:54 10/24/2023 15:29:55 Hyperlipidemia 13849057 E78.5 Type 2 carlos betes mellitus without complication [id number] E11.9 Open wound of right foot [id number] 4590888 S91.301A Neuropathy 797003690 G62 .9 Peripheral arterial occlusive disease 673127456 I73.9 Essential hypertension 77752748 I10 [id number] Daniel Rloand DPM [facility] [address] [place] [address] 11/02/2023 14:11:08 11/02/2023 18:10:46 Chronic ulcer of heel [id number] 3496890 L97.412 Wounds a1kllyntxg daily wound careMandat ory offloading at all timesHas refer foot Darco offloading shoe for transfersN ot weight-annette ring with use of wheelchair Wound is down to tendon with mild necrosis-w ound debrided todayFollo w-up 3 weeks Neuropathy due to diabetes mellitus 150458442 E11.40 Offloading to prevent worsening [id number] Daniel Roland DPM [facility] [address] [place] [address] 12/14/2023 14:01:47 12/14/2023 15:19:21 Chronic ulcer of heel 1731710027 9037928 L97.412 Wounds [id number] daily wound careMandat ory offloading at all timesHas refer foot Darco offloading shoe for transfersN ot weight-annette ring with use of wheelchair Follow-up 1 week Neuropathy due to diabetes mellitus 661419394 E11.40 Offloading to prevent worsening Open wound of right lower leg [id number] 2970384 S81.801A Daily dressings Chronic compressio n recommende d to prevent worsening Follow-up 1 week [id number] Daniel Roland DPM [facility] [address] [place] [address] 12/28/2023 14:15:08 12/28/2023 16:29:33 Chronic ulcer of heel 8776260511 1845928 L97.412 Wounds x1xray 1-24-neg for erosive changes, positive for calcaneal spurcontin ue daily wound careMandat ory offloading at all timesHas rearfoot Darco offloading shoe for transfersN ot weight-annette ring with use of wheelchair Follow-up 1 week Open wound of right lower leg [id number] 7702742 S81.801A healed with callus Neuropathy due to diabetes mellitus 730915319 E11.40 Offloading to prevent worsening [id number] Daniel Roland DPM [facility] [address] [place] [address] 01/11/2024 14:20:10 01/11/2024 15:08:19 Chronic ulcer of heel 2997505404 3658714 L97.412 Wounds x1xray 1-24-neg for erosive changes, positive for calcaneal spurcontin ue daily wound careMandat ory offloading at all timesHas rearfoot Darco offloading shoe for transfersN ot weight-annette ring with use of wheelchair Follow-up 1 week Open wound of right lower leg 0166948307 7140389 S81.801A multiplebe tadine wet to dry dressingst ubigrip disp Peripheral vascular disease 386580145 I73.9 Ulcer of toe 588965776 L 97.509 right 4thbetadin e wet to dry dressing Lymphedema of lower extremity 059640396 I89.0 [id number] Daniel Roland DPM [facility] [address] [place] [address] 01/25/2024 14:59:58 01/30/2024 08:36:32 Chronic ulcer of heel 4441818576 4118150 L97.412 Wounds d2iqspvgeb todayxray 1-24-neg for erosive changes, positive for calcaneal spurcontin ue daily wound careMandat ory offloading at all timesHas rearfoot Darco offloading shoe for transfersN ot weight-annette ring with use of wheelchair Follow-up 1 week Open wound of right lower leg 5167004004 0267790 S81.801A x1 with dry escharbeta dine wet to dry dressingst ubigrip disp Ulcer of toe 092343652 L 97.509 right 4thhealed Peripheral vascular disease 953004455 I73.9 vascular referral today Lymphedema of lower extremity 173520326 I89.0 [id number] Maxx Kaufman MD [facility] [address] [place] [address] 01/30/2024 11:15:55 02/01/2024 15:38:36 Peripheral arterial occlusive disease 594448475 I73.9 s/p balloon angioplast y Cough 54462167 R05.9 [id number] Daniel Roland DPM [facility] [address] [place] [address] 02/08/2024 12:24:38 02/08/2024 16:06:39 Chronic ulcer of heel 8993779706 4309266 L97.412 Wounds x1xray 1-24-neg for erosive changes, positive for calcaneal spurcontin ue daily wound careMandat ory offloading at all timesHas rearfoot Darco offloading shoe for transfersN ot weight-annette ring with use of wheelchair Follow-up 1 week Open wound of right lower leg [id number] 9862060 S81.801A x1 with dermal woundbetad ine wet to dry dressingst ubigrip disp Peripheral vascular disease 818332225 I73.9 vascular referral today Lymphedema of lower extremity 876152804 I89.0 Non-compli ant with compressio n to lower extremity [id number] Daniel Roland DPM [facility] [address] [place] [address] 02/22/2024 11:41:11 02/22/2024 17:22:52 Chronic ulcer of heel 2091749943 9637223 L97.412 healedcont inue offloading to prevent recurrence Open wound of right lower leg 8728520306 2379343 S81.801A healedTubi junior sales representative dispensedc ontinue chronic compressio n to prevent recurrence Peripheral vascular disease 174946172 I73.9 vascular referral today Lymphedema of lower extremity 389700529 I89.0 Non-compli ant with compressio n to lower extremity [id number] Maxx Kaufman MD [facility] [address] [place] [address] 04/02/2024 10:57:10 04/02/2024 14:41:30 Edema of lower extremity 603026876 R60.0 This gentleman was seen few weeks ago for LE edemaEcho with normal LV systolic function, LE with no DVT presentmed s includes Amlodipine , however a very low dose ( 2.5 mg daily ) [id number] Daniel Roland DPM [facility] [place] [address] [facility] [place] [address] 05/29/2024 14:30:01 06/07/2024 10:26:23 Ulcer of lower extremity 34839779 L97.821 L97.811 Betadine wet-to-dry dressings to both wounds dailyAce compressio n appliededu cated on chronic use of compressio nfollow-up wound care next week Edema of l ower extremity 563832871 R60.0 recommend chronic compressio n therapy currently not utilizing Diabetes mellitus 120555 09 E11.9 continue diabetic control per PCP recommenda tions Dystrophia unguium 68074 009 L60.3 nails debrided without incident [id number] Daniel Roland DPM [facility] [address] [place] [address] 06/06/2024 15:51:08 06/07/2024 10:28:20 Edema of lower extremity 702061594 R60.0 recommend chronic compressio n therapy currently not utilizing Ulcer of l ower extremity 45822349 L97.821 L97.811 both wounds healedmoni tor for new wounds daily if present seek medical attention immediatel y [id number] Daniel Roland DPM [facility] [place] [address] [facility] [address] [place] [address] 08/28/2024 15:26:14 08/29/2024 12:15:31 Edema of lower extremity 673493336 R60.0 recommend chronic compressio n therapy currently not utilizing Diabetes mellitus 476501 09 E11.9 continue diabetic control per PCP recommenda tions Diabetic p eripheral neuropathy 146880922 E11.42 Patient educated on neuropathy , diabetes, diabetic diet, and daily foot exams. Patient is to check feet daily for new wounds, blisters, redness to prevent infection and ulceration s to the feet. Patient will return to clinic in 3 months for diabetic foot workup. Dystrophia unguium 81627 009 L60.3 nails debrided without incident [id number] Daniel Roland DPM [facility] [address] [place] [address] 02/13/2025 15:47:07 02/13/2025 18:00:05 Peripheral arterial occlusive disease 007103461 I73.9 report to emergency room secondary to multiple wounds and gangrene Diabetes mellitus 386216 09 E11.52 continue diabetic control per PCP recommenda tionsrepor t to emergency room for further evaluation and management secondary to gangrene Ulcer of r ight foot due to type 2 diabetes mellitus 7410805878 0806806 E11.621 Betadine wet-to-dry dressings daily-- applied today Ulcer of l eft foot due to type 2 diabetes mellitus 2823812085 8809976 E11.621 Betadine wet-to-dry dressings to open wounds daily-- applied [facility]recom [facility] for left digit gangrene Lymphedema of bilateral lower limbs [id number] 9365148 I89.0 noncomplia nt with compressio n Health Concerns Section Related Observation LastModified by Organization Detai ls LastModified Time None Recorded Concern Status LastModified by Organization Details LastModified Time None Recorded Advance Directives Directive N: Payers Encounter Date Sequence Insurance Name Policy Number Policy Mccrary Covered Member ID Mccrary Member ID Guarantor Name 04/02/[address] [facility] (MEDICARE REPLACEMENT/A DVANTAGE - PPO) [id number] Gildardo Kat [id number] Gildardo Kat 05/29/[address] [facility] (MEDICARE REPLACEMENT/A DVANTAGE - PPO) [id number] Gildardo Kat [id number] Gildardo Kat 06/06/[address] [facility] (MEDICARE REPLACEMENT/A DVANTAGE - PPO) [id number] Gildardo Kat [id number] Gildardo Kat 08/28/[address] [facility] (MEDICARE REPLACEMENT/A DVANTAGE - PPO) [id number] Gildardo Kat [id number] Gildardo Kat 02/13/[address] [facility] (MEDICARE REPLACEMENT/A DVANTAGE - PPO) [id number] Gildardo Kat [id number] Gildardo Kat Notes Date Note Type Note Provider Name and Address Organization Details Recorded Time 04/02/2024 text/html Follow up for this gentleman for Le edema.Last visit following work up was done.Echo with a normal LV size and systolic functionLE duplex with no DVT found.Routine Labs with mild elevated TSH at 8, with normal Free TY4 levelPCP added Metolazone 2.5 mg MO-WE-, with no significant changeBUN/Creat were mildly elevated Per , he has his feet on the floor, until she yells at him to keep them up. Maxx Kaufman MD [address] [place] [address], [place] [address], [place], [address], [facility] Member Desk 04/02/2024 12:41:21 05/29/2024 text/html . Patient is [...] other complaints. Daniel Roland DPM [address] [facility], [place], [address], [employer] 06/07/2024 09:55:49 06/06/2024 text/html . Patient is 69-year-old male diabetic who returns the office for wounds of the lower legs. Patient has completely healed the wounds. Patient still smells like urine. I did discuss at last visit that patient needs to utilize garments to prevent him from soiling himself and his legs. Patient denies any other complaints. Daniel Roland DPM [address], [address] [facility], [place], [address], [employer] 06/07/2024 09:52:38 08/28/2024 text/html . Patient is [...] be cut. Daniel Roland DPM [address] [facility], [place], [address], [employer] 08/28/2024 16:13:28 02/13/2025 text/html . Patient is [...] any other complaints. Daniel Roland DPM [address], [place], [address], [place] - [facility] 02/13/2025 16:46:42
--- OUTSIDE RECORDS SUMMARY | 2025-04-11 18:17 | XMS_ITS | Continuity of Care Document ---
Author Organization [facility] Address [address] [place] [address] Phone Care Team Providers Care In Home Tutor Name Role Phone Rochelle Parker Unavailable Unavailable Advance Directives Directive Yes / No Effective Date File Name No Information Encounters Encounter Description Practice Location Reason(s) For Visit Diagnoses Date Provider Providers Copied on Encounter [facility], [address], [place], [place], [id number], [place] tel:[phone] [facility] No Information Elena Byrd. [address] , [address], [place], [address], [place]. tel:[phone] Family History Family Member Type Diagnosis Age At Onset No Information Payers Payer name Insurance type Covered libertarian ID Authoriza hernan(s) [facility] Commercial CI [id number] Social History Type Description Quantity Date Captured [...]
[2025-04-11 18:34] VITALS: BP 126/61; PULSE 60; RESP 17; TEMP 36.6; O2SAT 100
--- NOTE | 2025-04-11 18:52 | ECG_ITS ---
Test Date: 2025-04-11 22:18:42 Measurements Intervals [place] Rate: 67 P: 118 WI: 248 QRS: 267 QRSD: 224 T: 106 QT: 555 QTc: 588 Interpretive Statements ELECTRONIC ATRIAL PACEMAKER ELECTRONIC VENTRICULAR PACEMAKER Compared to ECG 02/14/2025 13:38:42 VENTRICULAR PACED RHYTHM NOW PRESENT Electronically Signed On 04-12-2025 12:41:24 CDT by Lisa Pina M.D.
[2025-04-11 20:13] VITALS: BP 140/72; PULSE 71; RESP 15; O2SAT 100
--- NOTE | 2025-04-11 20:36 | ED_ITS ---
HPI - Recheck/Abnormal Lab/Rx General Chief Complaint: Recheck/Abnormal Lab/Rx Stated Complaint: Abnormal labs-renal failure Time Seen by Provider: 04/11/25 20:20 Source: patient and family ( and 's niece) Mode of arrival: EMS Limitations: physical limitation History of Present Illness HPI narrative: Patient presents with report of abnormal labs. He has a history of CKD stage 3. He had routine labs obtained yesterday, ordered by his primary care physician Dr. Hough. The resulted today he was told to come to the emergency department as there was concern for acute renal failure with his BUN 104 and his creatinine 3.9. He has had decreased urinary frequency. Patient had a surgical procedure for a pressure ulcer on his right foot requiring surgery approximately 3 years ago that was followed by hospitalization and rehabilitation but he never fully rehabilitated and does not walk or stand since and is quite deconditioned. He is not on dialysis. He denies any complaints. No headache, chest pain, or shortness of breath. He notes that at this morning he has some abdominal pain but that is only because he needs to urinate. Related Data Home Medications ?Medication ?Instructions ?Recorded ?Confirmed ?Last Taken ?Type atorvastatin 20 mg tablet 20 mg PO HS 06/30/23 02/14/25 Unknown History albuterol 90 mcg/actuation aerosol 90 mcg inhalation .q4hr PRN 02/14/25 02/14/25 Unknown History inhaler shortness of breath apixaban 5 mg tablet (Eliquis) 5 mg PO BID 02/14/25 02/14/25 Unknown History bumetanide 1 mg tablet 1 mg PO BID 02/14/25 02/14/25 Unknown History insulin glargine 100 unit/mL (3 25 unit subcut .q12hr 02/14/25 02/14/25 Unknown History mL) subcutaneous pen (Basaglar KwikPen U-100 Insulin) insulin lispro 100 unit/mL 10 unit subcut TIDWM 02/14/25 02/14/25 Unknown History subcutaneous pen (Humalog KwikPen (U-100) Insulin) metolazone 2.5 mg tablet 2.5 mg PO QMWF 02/14/25 02/14/25 Unknown History Allergies Allergy/AdvReac Type Severity Reaction Status Date / Time No Known Allergies Allergy Verified 04/11/25 18:13 [facility] Past Medical History Medical History CKD (chronic kidney disease) Stage 3 Pressure ulcer of right foot 2021 BPH (benign prostatic hyperplasia) HTN (hypertension) Congestive heart failure Atrial fibrillation/flutter Hypothyroidism Diabetes mellitus type 2 in obese Surgical History Surgical History S/P foot surgery, right 2021 Family History Family History Unknown Diabetes mellitus Social History Social History Social History: Smoking status: Never smoker Alcohol intake: former Substance use: never Do You Feel Safe in your Home?: Yes Lack of Transportation: No Lack of Food: Never True Current Housing: I Have Housing Concerned About Future Housing: No Difficulty Paying Gas/Electric Bills: No Difficulty Paying for Meds: No Currently Unemployed: No Education: High School Diploma/GED Difficulty w/ Childcare or Family Care: No Living arrangements: with family Additional living arrangements comments: Spiritual care concerns: No Exam 2 Narrative: GENERAL: well-nourished, and in no acute distress. HEAD: Normocephalic, atraumatic. EYES: Non injected, non icteric ENT: Nares clear, no rhinorrhea or epistaxis. Gross auditory acuity intact. NECK: Supple. No meningismus. CHEST: Speaking in full sentences. No respiratory distress. HEART: Regular rate and rhythm. . ABDOMEN: Obese but Soft, nondistended. EXTREMITIES: RLE bandaged SKIN: Warm, dry NEURO: No focal deficits. Alert and oriented. Answering questions. Following commands. Normal speech without aphasia or dysarthria. PSYCH: Normal mood and affect. Course Vital Signs Vital signs: Vital Signs Temperature 97.8 F 04/11/25 18:34 Pulse Rate 60 04/11/25 18:34 Respiratory Rate 17 04/11/25 18:34 Blood Pressure 126/61 04/11/25 18:34 Pulse Oximetry 100 04/11/25 18:34 Oxygen Delivery Room Air 04/11/25 18:34 Temperature 97.8 F 04/11/25 18:34 Pulse Rate 71 04/11/25 20:13 Respiratory Rate 20 04/11/25 22:01 Blood Pressure 140/72 04/11/25 20:13 Pulse Oximetry 98 04/11/25 22:01 Oxygen Delivery Room Air 04/11/25 18:34 MDM - Recheck/Abnormal Lab/Rx MDM Narrative Medical decision making narrative: Patient presents after being told to present to the emergency department for abnormal labs. He has a history of CKD stage 3 by report but on routine labs obtained yesterday that resulted today was told there was concern for acute renal failure given a BUN of 104 and creatinine of 3.9. Patient has no complaints but does endorse decreased urinary frequency. In the emergency department they are afebrile with vital signs within normal limits. Patient's QT is prolonged. He is on amiodarone which Rx was reportedly filled today 04/11/25. Would avoid giving in the interim. Magnesium is elevated, patient otherwise asymptomatic at this time from either the hypermagnesemia or QT prolongation but would avoid QT prolonging drugs. Previous creatinine greater than 2 today's 4 represents acute renal failure. Still making urine, 1L IV fluid ordered. Mild hypokalemia. Will judiciously replete given ARF. Hyperglycemia is with a slight anion but no ara acidosis. Normocytic anemia, stable from previous. Mild phosphorus elevation. Discussed findings with patient and family who verifies understanding. Discussed need for admission, in agreement. Discussed code status with patient who states I don't care. He seems indifferent at 1st. Family insistent that he be full code. He is equivocal but states that is fine. I did encourage if he feels strongly about being DNR in the future to have these discussions with family and a change could be made in the chart at any time if desired. Informed Dr Ramirez who will be on consult. Discussed with hospitalist ZOEY Germain who requests noncon CT abd/pelvis to r/o obstruction. Patient to be telemetry bed given prolonged QT which Germain was told about and advised no QT prolonging meds including amiodarone for now and no PRN Zofran order to be placed. Patient's states that the amiodarone was prescribed when he had been admitted at [facility] and he does continue to take this medication and they had been called today that his refill was in. Patient notes that he take the BVM supplementation which, combined with his acute renal failure likely explains mild hypermagnesemia but again he is otherwise asymptomatic. Lab Data 04/11/25 21:11 04/11/25 21:11 Labs: Lab Results 04/11/25 04/11/25 04/11/25 Range/Units 21:10 21:11 21:59 WBC 7.2 (4.5-10.0) K/mm3 RBC 3.86 L (4.6-6.20) M/mm3 Hgb 10.0 L (14.0-18.0) g/dL Hct 33.6 L (42.0-52.0) % MCV 87.0 (80-100) fl MCH 25.9 L (26-34) pg MCHC 29.8 L (32-36) g/dl RDW 15.9 H (11.5-14.5) % Plt Count 347 (150-375) k/mm3 MPV 9.3 (7.4-10.4) fl Immature Gran % (Auto) 0.6 H (0-0.5) % Neut % (Auto) 68.8 (45.5-73.1) % Lymph % (Auto) 19.9 (18.3-44.2) % Chambers % (Auto) 6.4 (2.6-8.5) % Eos % (Auto) 3.5 (0-4.4) % Baso % (Auto) 0.8 (0.2-1.2) % Lymph # (Auto) 1.44 (0.9-3.2) K/mm3 Chambers # (Auto) 0.5 (0.1-0.6) K/mm3 Eos # (Auto) 0.3 (0-0.3) K/mm3 Baso # (Auto) 0.1 (0.0-0.1) K/mm3 Abs Immat Gran (auto) 0.04 H (0.00-0.031) K/mm3 Absolute Neuts (auto) 5.0 (1.3-6.7) K/mm3 Absolute Nucleated RBC 0.000 (0.0-0.012) K/mm3 Band Neutrophils % Not Reportable Nucleated RBC % 0.0 (0.0-0.2) % Platelet Estimate Adequate (Adequate) Hypochromasia 1+ Schistocytes None seen Sodium 139 (137-145) mmol/L Potassium 3.1 L (3.4-5.0) mmol/L Chloride 97 L (98-107) mmol/L Carbon Dioxide 29 (22-30) mmol/L Anion Gap 13 H (4-12) mmol/L BUN 114 H D (9-20) mg/dL Creatinine 4.38 H (0.7-1.3) mg/dL Estim Creat Clear Calc 20 ml/min Estimated GFR 13 L (59 - ) Glucose 235 H (65-110) mg/dL Calcium 8.6 (8.4-10.2) mg/dL Phosphorus 4.8 H (2.5-4.5) mg/dL Magnesium 3.6 H (1.6-2.3) mg/dL Total Bilirubin 0.6 (0.2-1.3) mg/dL AST 29 (17-59) U/L ALT 22 (6-50) U/L Alkaline Phosphatase 137 H (38-126) U/L Total Protein 9.0 H (6.3-8.2) g/dL Albumin 4.5 (3.5-5.1) g/dL Urine Color Yellow (Yellow) Urine Appearance Clear (Clear) Urine pH 6.5 (5.0-9.0) Ur Specific [place] 1.011 (1.001-1.035) Urine Protein 1+ H (Negative) mg/dL Urine Glucose (UA) Negative (Negative) mg/dL Urine Ketones Negative (Negative) mg/dL Ur Blood (Man) Negative (Negative) Urine Nitrate Negative (Negative) Urine Bilirubin Negative (Negative) Urine Urobilinogen 0.2 (<2.0) mg/dL Leukocyte Esterase Rfl Negative (Negative) BJ/UL Urine RBC 0-2 (0-2) /hpf Urine WBC 0-5 (0-3) /hpf Ur Squamous Epith Cells None seen (Few) /hpf Urine Bacteria None seen /hpf Urine Casts 3-5 Urine Opiates Screen Negative (Negative) Urine Methadone Screen Negative (Negative) Ur Barbiturates Screen Negative (Negative) Ur Phencyclidine Scrn Negative (Negative) Ur Amphetamine Screen Negative (Negative) U Benzodiazepines Scrn Negative (Negative) Urine Cocaine Screen Negative (Negative) U Cannabinoids Screen Negative (Negative) ECG Data EKG #1: Attestation: I personally reviewed and interpreted this ECG as follows: ECG completion date: 04/11/25 ECG completion time: 22:18 Interpretation: Electronic atrial and ventricular pacemaker. Rate 67 beats per minute. NJ interval prolonged at 248 milliseconds. QRS prolonged at 224 milliseconds. QT/QTC 555/571, prolonged. Poor R-wave progression across the precordial leads. No T-wave inversion. Discharge Plan Discharge Clinical Impression: Prolonged Q-T interval on ECG, Acute renal failure, Hypokalemia, Hyperglycemia due to diabetes mellitus, Normocytic anemia Patient Disposition: Still a Patient Condition: Stable Patient Language: Welsh Prescriptions: No Action Eliquis 5 mg tablet 5 mg PO BID metolazone 2.5 mg tablet 2.5 mg PO QMWF insulin glargine [Basaglar KwikPen U-100 Insulin] 100 unit/mL (3 mL) insulin pen 25 unit subcut .q12hr insulin lispro [Humalog KwikPen Insulin] 100 unit/mL insulin pen 10 unit subcut TIDWM albuterol 90 mcg/actuation aerosol 90 mcg inhalation .q4hr PRN (Reason: shortness of breath) Rx Instructions: 2 puffs bumetanide 1 mg Tablet 1 mg PO BID atorvastatin 20 mg Tablet 20 mg PO HS cyclobenzaprine 10 mg Tablet 5 mg PO Q8H PRN (Reason: Muscle Spasm) Qty: 30 0RF acetaminophen [Mapap (acetaminophen)] 325 mg Tablet 650 mg PO Q6H PRN (Reason: Pain Rated 5 Or Less) Qty: 30 0RF ipratropium-albuterol 0.5 mg-3 mg(2.5 mg base)/3 mL Solution For Nebulization 3 ml inhalation Q6HRT Qty: 60 0RF amiodarone [Pacerone] 200 mg Tablet 200 mg PO Q12HR Qty: 60 0RF sennosides-docusate sodium [Senokot-S] 8.6-50 mg Tablet 1 tab PO HS Qty: 30 0RF amlodipine 2.5 mg Tablet 2.5 mg PO DAILY Qty: 30 0RF tramadol 50 mg Tablet 50 mg PO Q8H PRN (Reason: Pain Rated 4-6) Qty: 20 0RF famotidine 20 mg Tablet 20 mg PO DAILY Qty: 30 0RF tamsulosin 0.4 mg Capsule 0.4 mg PO QAM Qty: 30 0RF levothyroxine [Synthroid] 50 mcg Tablet 50 mcg PO DAILY@0630 Qty: 30 0RF aspirin [Children's Aspirin] 81 mg Tablet,Chewable 81 mg PO DAILY@0800 Qty: 30 0RF calcium carbonate 500 mg calcium (1,250 mg) Tablet,Chewable 500 mg PO Q6H PRN (Reason: Indigestion) Qty: 30 0RF Dakin's Solution 0.25 % Solution 1 applic topical BID Qty: 10 0RF metoprolol tartrate 25 mg Tablet 25 mg PO Q12HR Qty: 60 0RF ramelteon 8 mg Tablet 8 mg PO HS Qty: 30 0RF cholecalciferol (vitamin D3) 1,250 mcg (50,000 unit) Capsule 50,000 unit PO WEEKLY Qty: 4 0RF Follow-up/Referrals: Gianluca,MD Bryan [Primary Care Provider] - Time of Disposition: 23:52
--- OUTSIDE RECORDS SUMMARY | 2025-04-11 21:00 | XMS_ITS | CONTINUITY OF CARE DOCUMENT ---
Author Name galileo, galileo Address Unknown Organization [facility] Address [address] [address] [place] [address] Phone [phone] Care Team Providers Care Health Services Manager Name Role Phone Noel Bañuelos MD Unavailable DULCE CASEY MD Unavailable DULCE CASEY MD Unavailable [phone] PROBLEMS Condition Status Date Provider Notes S/P [...] MD Atrial fibrillation active Kady Ventimigl ia [employer] Bradycardia active Noel Bañuelos MD Sick sinus syndrome active Noel Bañuelos MD ENCOUNTERS Date Type Provider Location Encounter Diag nosis - In-person encounter Office Visit Yoon Bailey MD [facility] - In-person encounter Office Visit Noel Bañuelos MD [facility] BradycardiaSick sinus syndrome - In-person encounter Office Visit Noel Bañuelos MD [facility] - In-person encounter Office Visit Noel Bañuelos MD [facility] Atrial fibrillation - In-person encounter Office Visit Noel Bañuelos MD [facility] Cardiology examinationDiabetes, Type 2CKDPeripheral artery diseaseHyperlipidemiaDiastolic CHFHypothyroidism VITAL SIGNS Date Observation Value Provider blood pressure, diastolic 78 mm[Hg] [facility] systolic 153 mm[Hg] Joelle garner Shannon oxygen saturation, oximetry 97 % [facility] pulse rate 61 /min [facility] respiratory rate E&M 14 /min [facility] height E&M 73 [in_i] Verenice Shannon blood pressure, cuff size regular An pedrito Shannon Body Mass Index (Ratio) 39.18 kg/m2 Curry Bañuelos MD blood pressure, diastolic 60 mm[Hg] April gonzalez [facility] blood pressure, systolic 106 mm[Hg] Susy bergeron [facility] oxygen saturation, oximetry 99 % Kimberley [facility] pulse rate 62 /min Kimberley [facility] blood pressure, cuff size regular April yla [facility] weight E&M 297 [lb_av] Kimberley [facility] height E&M 73 [in_i] Kimberley [facility] Body Mass Index (Ratio) 36.94 kg/m2 [...] herbertLog blood pressure, systolic 124 mm[Hg] Evon [facility] blood pressure, cuff size regular [place] Richard blood pressure, diastolic 84 mm[Hg] Ta perico Richard blood pressure, systolic 124 mm[Hg] Tab lolisa Richard oxygen saturation, oximetry 97 % Melania Richard pulse rate 99 /min Melania Richard weight E&M 270 [lb_av] Melania Richard respiratory rate E&M 12 /min Melania Richard height E&M 73 [in_i] Mleania Richard blood pressure, diastolic 85 mm[Hg] Soledad herbertLog blood pressure, systolic 149 mm[Hg] Evon [facility] blood pressure, cuff size regular rret [...] (3 mL) insulin pen active Kady Ventimiglia [employer] Humalog KwikPen Insulin 100 unit/mL insulin pen active Kady Ventimiglia [employer] atorvastatin 10 mg tablet active Noel Bañuelos [...] history of marijuana use no Kady Ventimiglia [facility] drug use no Kady Ventimig mame [facility] alcohol use no Kady Ventimig mame [facility] smoking status Never smoker Kady Niurkam iglia [facility] personal history of marijuana use no Kady Ventimiglia [facility] drug use no Kady Ventimig mame [facility] alcohol use no Kady Ventimig mame [facility] smoking status Never smoker Noel Bañuelos MD smoking status Never smoker INSURANCE PROVIDERS Payer name Policy type / Coverage type [place] red libertarian [employer] [facility] MEDICARE ADVANTAGE PLAN (PPO) Medicare [id number] ADVANCE DIRECTIVES Name Date DISCUSSED - NO [...] Atorvastatin 10 Mg Tablet (Atorvastatin) Kady Samson [facility] Cardiology: H is updated medication list for this problem includes: Bumetanide 1 Mg Tablet (Bumetanide) ..... Take 1 tablet by mouth twice a day Metolazone 2.5 Mg Tablet (Metolazone) ..... Take 1 tablet on tuesday and tuesday Metoprolol Tartrate 25 Mg Tablet (Metoprolol tartrate) ..... Take 1 tablet by mouth twice a [facility] c ontinue wound care [facility] Cardiology: H is updated medication list for this problem includes: Levothyroxine 50 Mcg Tablet (Levothyroxine) ..... Take 1 tablet by mouth once a day [facility] Cardiology:remains i n atrial fibrillation [...] 1 tablet by mouth twice a day [facility] Cardiology:noted to have irregular rhythm [...] 1 tablet by mouth once a day [facility] cr 1.74 [facility]no new le g pain or ulcerations c ontinue present meds [facility] Cardiology:will get updated labs from PCP H is updated medication list for this problem includes: Atorvastatin 10 Mg Tablet (Atorvastatin) [facility] Cardiology:patient h as no new [...] by mouth twice a day Kady Katzkelly [employer] Cardiology:per PCP Noel Bañuelos MD Cardiology:The patie [...] N eeds physical therapy to mobilize him. Neol Bañuelos MD Date Name X-Ray, Chest, PA [...]
--- OUTSIDE RECORDS SUMMARY | 2025-04-11 21:01 | XMS_ITS | Continuity of Care Document ---
Author Organization [facility] Address [address] [place] [address] Phone Care Team Providers Care Telephone Engineer Name Role Phone Rochelle Parker Unavailable Unavailable Advance Directives Directive Yes / No Effective Date File Name No Information Encounters Encounter Description Practice Location Reason(s) For Visit Diagnoses Date Provider Providers Copied on Encounter [facility], [address], [place], [place], [id number], [place] tel:[phone] [facility] No Information Elena Byrd. [address] , [address], [place], [address], [place]. tel:[phone] Family History Family Member Type Diagnosis Age At Onset No Information Payers Payer name Insurance type Covered republican ID Authoriza hernan(s) [facility] Commercial CI [id number] Social History Type Description Quantity Date Captured [...]
[2025-04-11 21:16] LABS: Basophils Absolute Auto 0.1 K/mm3 (0.0-0.1); Basophils Percent Auto 0.8 % (0.2-1.2); Eosinophils Absolute Auto 0.3 K/mm3 (0-0.3); Eosinophils Percent Auto 3.5 % (0-4.4); Hematocrit 33.6 % (42.0-52.0); Immature Granulocyte Absolute 0.04 K/mm3 (0.00-0.031); Immature Granulocyte Percent A 0.6 % (0-0.5); Lymphocytes Absolute Auto 1.44 K/mm3 (0.9-3.2); Lymphocytes Percent Auto 19.9 % (18.3-44.2); Mean Corpuscular HGB Conc 29.8 g/dl (32-36); Mean Corpuscular Hemoglobin 25.9 pg (26-34); Mean Platelet Volume 9.3 fl (7.4-10.4); Monocytes Absolute Auto 0.5 K/mm3 (0.1-0.6); Monocytes Percent Auto 6.4 % (2.6-8.5); Neutrophils Percent Auto 68.8 % (45.5-73.1); Platelet Count Result 347 k/mm3 (150-375); Red Blood Count 3.86 M/mm3 (4.6-6.20); Red Cell Distribution Width 15.9 % (11.5-14.5); White Blood Count 7.2 K/mm3 (4.5-10.0)
[2025-04-11 21:26] LABS: Alanine Aminotransferase 22 U/L (6-50); Albumin Level 4.5 g/dL (3.5-5.1); Alkaline Phosphatase 137 U/L (38-126); Anion Gap 13 mmol/L (4-12); Aspartate Amino Transferase 29 U/L (17-59); Bilirubin,Total 0.6 mg/dL (0.2-1.3); Blood Urea Nitrogen 114 mg/dL (9-20); Calcium 8.6 mg/dL (8.4-10.2); Carbon Dioxide 29 mmol/L (22-30); Chloride 97 mmol/L (98-107); Estimated CRCL calculation 20 ml/min; Estimated Glomerular Filt Rate 13; Glucose 235 mg/dL (65-110); Hypochromasia 1+; Platelet Estimate Adequate (Adequate); Potassium 3.1 mmol/L (3.4-5.0); Sodium 139 mmol/L (137-145)
[2025-04-11 21:27] LABS: Schistocytes None Seen
[2025-04-11 22:01] VITALS: RESP 20; O2SAT 98
[2025-04-11 22:24] LABS: Add Urine Microscopic? YES; Appearance Urine Clear (Clear); Bacteria Urine None Seen /hpf; Bilirubin Urine Negative (Negative); Blood Urine Negative (Negative); Color Urine Yellow (Yellow); Glucose Urine UA Negative (Negative); Ketones Urine Negative (Negative); Leukocyte Esterase Ur Negative LEU/UL (Negative); Nitrate Urine Negative (Negative); Protein Urine 1+ mg/dL (Negative); RBC Urine 0-2 /hpf (0-2); Specific Grav Ur 1.011 (1.001-1.035); Squamous Epithelial Cell Urine None Seen /hpf (Few); Urobilinogen Urine 0.2 mg/dL (<2.0); WBC Urine 0-5 /hpf (0-3); pH Urine 6.5 (5.0-9.0)
[2025-04-11 22:35] LABS: Amphetamine Screen Urine Negative (Negative); Barbiturate Screen Urine Negative (Negative); Benzodiazepines Screen Urine Negative (Negative); Cannabinoid Screen Urine Negative (Negative); Cocaine Screen Urine Negative (Negative); Methadone Screen Urine Negative (Negative); Opiate Screen Urine Negative (Negative); Phencyclidine Screen Urine Negative (Negative)
[2025-04-11 22:40] LABS: Magnesium 3.6 mg/dL (1.6-2.3); Phosphorus 4.8 mg/dL (2.5-4.5)
[2025-04-11] MEDS: SODIUM CHLORIDE 0.9% IV 1,000 ML 999 ML IV CONT (23:50)
[2025-04-11] MEDS: POTASSIUM BICARBONATE 25 MEQ TABEF 50 MEQ PO (23:51)
[2025-04-11 23:59] VITALS: BP 149/71; PULSE 68; RESP 17; O2SAT 21
[2025-04-12] VITALS (15 sets, daily range): BP systolic 128–161; BP diastolic 63–81; PULSE 60–94; RESP 16–21; TEMP 36.3–36.6; O2SAT 95–100; BMI 32.6; BMI 36.3
--- NOTE | 2025-04-12 00:15 | P.HP_ITS ---
H&P: HPI History of Present Illness Date/Time: 04/12/25 00:15 [facility] Past Medical History Medical History CKD (chronic kidney disease) Stage 3 Pressure ulcer of right foot 2021 BPH (benign prostatic hyperplasia) HTN (hypertension) Congestive heart failure Atrial fibrillation/flutter Hypothyroidism Diabetes mellitus type 2 in obese Surgical History Surgical History S/P foot surgery, right 2021 Family History Family History Unknown Diabetes mellitus Social History Social History Social History: Smoking status: Never smoker Alcohol intake: former Substance use: never Do You Feel Safe in your Home?: Yes Lack of Transportation: No Lack of Food: Never True Current Housing: I Have Housing Concerned About Future Housing: No Difficulty Paying Gas/Electric Bills: No Difficulty Paying for Meds: No Currently Unemployed: No Education: High School Diploma/GED Difficulty w/ Childcare or Family Care: No Living arrangements: with family Additional living arrangements comments: Spiritual care concerns: No Meds Home Medications and Allergies Home Medications ?Medication ?Instructions ?Recorded ?Confirmed ?Type atorvastatin 20 mg tablet 20 mg PO HS 06/30/23 02/14/25 History acetaminophen 325 mg tablet (Mapap 650 mg (2 x 325 mg) PO Q6H PRN 07/01/23 02/14/25 Rx (acetaminophen)) Pain Rated 5 Or Less #30 tabs amiodarone 200 mg tablet (Pacerone) 200 mg PO Q12HR #60 tabs 07/01/23 02/14/25 Rx amlodipine 2.5 mg tablet 2.5 mg PO DAILY #30 tabs 07/01/23 02/14/25 Rx aspirin 81 mg chewable tablet 81 mg PO DAILY@0800 #30 tabs 07/01/23 02/14/25 Rx (Children's Aspirin) calcium carbonate 500 mg PO Q6H PRN Indigestion #30 07/01/23 02/14/25 Rx tabs cholecalciferol (vitamin D3) 1,250 50,000 unit PO WEEKLY #4 caps 07/01/23 02/14/25 Rx mcg (50,000 unit) capsule cyclobenzaprine 10 mg tablet 5 mg (1/2 x 10 mg) PO Q8H PRN 07/01/23 02/14/25 Rx Muscle Spasm #30 tabs famotidine 20 mg tablet 20 mg PO DAILY #30 tabs 07/01/23 02/14/25 Rx ipratropium 0.5 mg-albuterol 3 mg 3 ml inhalation Q6HRT #60 mL 07/01/23 02/14/25 Rx (2.5 mg base)/3 mL nebulization soln levothyroxine 50 mcg tablet 50 mcg PO DAILY@0630 #30 tabs 07/01/23 02/14/25 Rx (Synthroid) metoprolol tartrate 25 mg tablet 25 mg PO Q12HR #60 tabs 07/01/23 02/14/25 Rx ramelteon 8 mg tablet 8 mg PO HS #30 tabs 07/01/23 02/14/25 Rx sennosides 8.6 mg-docusate sodium 1 tab PO HS #30 tabs 07/01/23 02/14/25 Rx 50 mg tablet (Senokot-S) sodium hypochlorite 0.25 % 1 applic topical BID #10 mL 07/01/23 02/14/25 Rx solution (Dakin's Solution) tamsulosin 0.4 mg capsule 0.4 mg PO QAM #30 caps 07/01/23 02/14/25 Rx tramadol 50 mg tablet 50 mg PO Q8H PRN Pain Rated 4-6 07/01/23 02/14/25 Rx #20 tabs albuterol 90 mcg/actuation aerosol 90 mcg inhalation .q4hr PRN 02/14/25 02/14/25 History inhaler shortness of breath apixaban 5 mg tablet (Eliquis) 5 mg PO BID 02/14/25 02/14/25 History bumetanide 1 mg tablet 1 mg PO BID 02/14/25 02/14/25 History insulin glargine 100 unit/mL (3 25 unit subcut .q12hr 02/14/25 02/14/25 History mL) subcutaneous pen (Radames Lozano U-100 Insulin) insulin lispro 100 unit/mL 10 unit subcut TIDWM 02/14/25 02/14/25 History subcutaneous pen (Humalog KwikPen (U-100) Insulin) metolazone 2.5 mg tablet 2.5 mg PO QMWF 02/14/25 02/14/25 History Allergies Allergy/AdvReac Type Severity Reaction Status Date / Time No Known Allergies Allergy Verified 04/11/25 18:13 Vital Signs Vital Signs - 24 hr 04/11/25 18:34 04/11/25 20:13 04/11/25 22:01 Temperature 36.6 C Pulse Rate 60 71 Respiratory Rate 17 15 20 Blood Pressure 126/61 140/72 Pulse Oximetry 100 100 98 Oxygen Delivery Room Air H&P: Results Labs Labs: Short CBC 04/11/25 Range/Units 21:11 WBC 7.2 (4.5-10.0) K/mm3 Hgb 10.0 L (14.0-18.0) g/dL Hct 33.6 L (42.0-52.0) % Plt Count 347 (150-375) k/mm3 BMP 04/11/25 21:11 Sodium 139 Potassium 3.1 L Chloride 97 L Carbon Dioxide 29 BUN 114 H D Creatinine 4.38 H Glucose 235 H Calcium 8.6 Liver Function 04/11/25 Range/Units 21:11 Total Bilirubin 0.6 (0.2-1.3) mg/dL AST 29 (17-59) U/L ALT 22 (6-50) U/L Alkaline Phosphatase 137 H (38-126) U/L Albumin 4.5 (3.5-5.1) g/dL Urine 04/11/25 Range/Units 21:59 Urine Color Yellow (Yellow) Urine Appearance Clear (Clear) Urine pH 6.5 (5.0-9.0) Ur Specific [place] 1.011 (1.001-1.035) Urine Protein 1+ H (Negative) mg/dL Urine Glucose (UA) Negative (Negative) mg/dL
--- NOTE | 2025-04-12 02:02 | ADMGEN ---
This patient, Gildardo Kat, was admitted to Medical Room 259-01. Patient/family oriented to hospital policies and general routines including ID bracelet, bed and alarms, visiting hours, pain management, procedures, bathroom and other care routines, personal items, smoking policy, room service/diet, and visiting hours. Information on how to activate the Rapid Response Team has been discussed. Patient/Family are encouraged to report perceived risks to care and to ask questions if they do not understand what they are told or what they should do.
[2025-04-12] MEDS: SODIUM CHLORIDE 0.9% IV 1,000 ML 125 ML IV CONT ×3 (02:14→17:17)
[2025-04-12 05:13] LABS: Basophils Absolute Auto 0.1 K/mm3 (0.0-0.1); Eosinophils Absolute Auto 0.2 K/mm3 (0-0.3); Eosinophils Percent Auto 3.3 % (0-4.4); Immature Granulocyte Absolute 0.03 K/mm3 (0.00-0.031); Immature Granulocyte Percent A 0.5 % (0-0.5); Lymphocytes Absolute Auto 1.51 K/mm3 (0.9-3.2); Lymphocytes Percent Auto 25.3 % (18.3-44.2); Mean Corpuscular Hemoglobin 26.2 pg (26-34); Mean Corpuscular Volume 87.2 fl (80-100); Monocytes Absolute Auto 0.4 K/mm3 (0.1-0.6); Monocytes Percent Auto 6.9 % (2.6-8.5); Neutrophils Absolute Auto 3.8 K/mm3 (1.3-6.7); Platelet Count Result 297 k/mm3 (150-375); Red Blood Count 3.44 M/mm3 (4.6-6.20); Red Cell Distribution Width 15.9 % (11.5-14.5)
[2025-04-12 05:25] LABS: Alanine Aminotransferase 17 U/L (6-50); Alkaline Phosphatase 103 U/L (38-126); Anion Gap 10 mmol/L (4-12); Aspartate Amino Transferase 25 U/L (17-59); Bilirubin,Total 0.6 mg/dL (0.2-1.3); Blood Urea Nitrogen 104 mg/dL (9-20); Calcium 8.2 mg/dL (8.4-10.2); Carbon Dioxide 30 mmol/L (22-30); Chloride 101 mmol/L (98-107); Estimated CRCL calculation 25 ml/min; Estimated Glomerular Filt Rate 17; Glucose 132 mg/dL (65-110); Magnesium 3.3 mg/dL (1.6-2.3); Phosphorus 4.3 mg/dL (2.5-4.5); Potassium 3.2 mmol/L (3.4-5.0); Sodium 141 mmol/L (137-145)
--- NOTE | 2025-04-12 06:59 | P.HP_ITS ---
H&P: HPI History of Present Illness Date/Time: 04/12/25 06:59 Chief Complaint: Abnormal labs Narrative: Patient is a 70-year-old male with a past medical history of DM2, CKD, previous diabetic foot infections, pacemaker, atrial fibrillation, CHF, BPH, hypothyroidism who presents to the hospital after his primary care physician obtained blood work which showed worsening kidney function and hypokalemia. He states that he had routine labs ordered on 04/10 through his PCP and he was advised to come to the emergency department due to worsening renal failure. He has been experiencing decreased urinary frequency over the past several days as well. Patient is currently not on dialysis. He denies any chest pain, shortness a breath, nausea/vomiting, headaches, dizziness, abdominal pain, or bowel changes. Patient was recently seen in January for diabetic infection and was ultimately transferred to [facility] under vascular surgery care for osteomyelitis which required surgical intervention. He denies any sick contacts, recent illnesses, long distance travel. Diabetes managed by PCP, no recent changes to medications or issues with glycemic control. Initial VS at presentation: 97.8F, 60 HR, 17 RR, 126/61 BP, 100% on RA Blood Work: WBC 7.2, HGB 10 HCT 336 sodium 139, potassium 3.1 chloride 97, Anion gap 13, BUN 114, include forward through to go estimated GFR 13, glucose 230, calcium 8.6, magnesium 3.6, phosphorus 4 8 normal LFTs UA: Unremarkable EKG: Electronic atrial/ventricular pacemaker, rate 67 B p.m.. P.r.n. and 248 milliseconds. QRS prolonged 220 milliseconds. QTC 588 Abdominal/pelvis CT: Significant abnormality of system, suspected fecal imp action/constipation with probable minimal stercoral proctitis gallbladder sludge and possibly small layering stones, small fat containing umbilical hernia Renal ultrasound: Unremarkable renal ultrasound, no masses, stones, or hydronephrosis Review of Systems Review of Systems: All systems reviewed & are unremarkable except as noted in HPI and below [facility] Past Medical History Medical History (Updated 04/12/25 @ 14:45 by Escobar Wiley PA-C) Atrial fibrillation/flutter CKD (chronic kidney disease) Stage 3 Pressure ulcer of right foot 2021 BPH (benign prostatic hyperplasia) HTN (hypertension) Congestive heart failure Hypothyroidism Diabetes mellitus type 2 in obese Surgical History Surgical History S/P foot surgery, right 2021 Family History Family History Unknown Diabetes mellitus Social History Social History Social History: Smoking status: Never smoker Alcohol intake: former Substance use: never Do You Feel Safe in your Home?: Yes Lack of Transportation: No Lack of Food: Never True Current Housing: I Have Housing Concerned About Future Housing: No Difficulty Paying Gas/Electric Bills: No Difficulty Paying for Meds: No Currently Unemployed: No Education: High School Diploma/GED Difficulty w/ Childcare or Family Care: No Living arrangements: with family Additional living arrangements comments: Spiritual care concerns: No Meds Home Medications and Allergies Home Medications ?Medication ?Instructions ?Recorded ?Confirmed ?Type atorvastatin 20 mg tablet 20 mg PO HS 06/30/23 04/12/25 History amiodarone 200 mg tablet (Pacerone) 200 mg PO Q12HR #60 tabs 07/01/23 04/12/25 Rx aspirin 81 mg chewable tablet 81 mg PO DAILY@0800 #30 tabs 07/01/23 04/12/25 Rx (Children's Aspirin) calcium carbonate 500 mg PO Q6H PRN Indigestion #30 07/01/23 04/12/25 Rx tabs cholecalciferol (vitamin D3) 1,250 50,000 unit PO WEEKLY #4 caps 07/01/23 04/12/25 Rx mcg (50,000 unit) capsule cyclobenzaprine 10 mg tablet 5 mg (1/2 x 10 mg) PO Q8H PRN 07/01/23 04/12/25 Rx Muscle Spasm #30 tabs famotidine 20 mg tablet 20 mg PO DAILY #30 tabs 07/01/23 04/12/25 Rx ipratropium 0.5 mg-albuterol 3 mg 3 ml inhalation Q6HRT #60 mL 07/01/23 04/12/25 Rx (2.5 mg base)/3 mL nebulization soln levothyroxine 50 mcg tablet 50 mcg PO DAILY@0630 #30 tabs 07/01/23 04/12/25 Rx (Synthroid) metoprolol tartrate 25 mg tablet 25 mg PO Q12HR #60 tabs 07/01/23 04/12/25 Rx ramelteon 8 mg tablet 8 mg PO HS #30 tabs 07/01/23 04/12/25 Rx sennosides 8.6 mg-docusate sodium 1 tab PO HS #30 tabs 07/01/23 04/12/25 Rx 50 mg tablet (Senokot-S) sodium hypochlorite 0.25 % 1 applic topical BID #10 mL 07/01/23 04/12/25 Rx solution (Dakin's Solution) tamsulosin 0.4 mg capsule 0.4 mg PO QAM #30 caps 07/01/23 04/12/25 Rx tramadol 50 mg tablet 50 mg PO Q8H PRN Pain Rated 4-6 07/01/23 04/12/25 Rx #20 tabs albuterol 90 mcg/actuation aerosol 90 mcg inhalation .q4hr PRN 02/14/25 04/12/25 History inhaler shortness of breath apixaban 5 mg tablet (Eliquis) 5 mg PO BID 02/14/25 04/12/25 History bumetanide 1 mg tablet 1 mg PO BID 02/14/25 04/12/25 History insulin glargine 100 unit/mL (3 25 unit subcut .q12hr 02/14/25 04/12/25 History mL) subcutaneous pen (Basaglar KwikPen U-100 Insulin) insulin lispro 100 unit/mL 10 unit subcut TIDWM 02/14/25 04/12/25 History subcutaneous pen (Humalog KwikPen (U-100) Insulin) metolazone 2.5 mg tablet 2.5 mg PO QMWF 02/14/25 04/12/25 History acetaminophen 325 mg tablet 650 mg PO Q4H PRN Pain Rated 5 Or 04/12/25 04/12/25 History Less amlodipine 2.5 mg tablet 5 mg PO DAILY 04/12/25 04/12/25 History clopidogrel 75 mg tablet 75 mg PO DAILY 04/12/25 04/12/25 History ferrous sulfate 325 mg (65 mg 325 mg PO DAILY 04/12/25 04/12/25 History iron) tablet,delayed release magnesium citrate 100 mg capsule 200 mg PO HS 04/12/25 04/12/25 History miconazole nitrate 2 % topical applic topical BID 04/12/25 History cream trazodone 50 mg tablet 25 mg PO QHS 04/12/25 04/12/25 History Allergies Allergy/AdvReac Type Severity Reaction Status Date / Time No Known Allergies Allergy Verified 04/11/25 18:13 Vital Signs Vital Signs - 24 hr 04/11/25 18:34 04/11/25 20:13 04/11/25 22:01 Temperature 97.8 F Pulse Rate 60 71 Respiratory Rate 17 15 20 Blood Pressure 126/61 140/72 Pulse Oximetry 100 100 98 Oxygen Delivery Room Air 04/11/25 23:59 04/12/25 01:10 04/12/25 01:39 Temperature Pulse Rate 68 70 66 Respiratory Rate 17 21 H Blood Pressure 149/71 H 155/79 H Pulse Oximetry 21 L 96 Oxygen Delivery 04/12/25 01:40 04/12/25 01:46 04/12/25 02:21 Temperature Pulse Rate 66 66 Respiratory Rate 20 20 Blood Pressure 161/81 H 161/81 H Pulse Oximetry 97 97 Oxygen Delivery Room Air 04/12/25 02:28 04/12/25 04:00 04/12/25 06:00 Temperature 97.3 F L 97.8 F Pulse Rate 70 79 94 Respiratory Rate 18 18 Blood Pressure 150/73 H 131/66 Pulse Oximetry 100 96 Oxygen Delivery Exam Narrative: Gen - obese well appearing male in no acute respiratory distress who is nontoxic-appearing lying semi recumbent in bed HEENT - normocephalic. Atraumatic. Pupils equal round and reactive. Extraocular motions intact. Sclera clear and anicteric. Nares patent. Moist mucous membranes. Tongue was midline. No facial asymmetry. Neck - neck was supple. Chest - lungs are clear to auscultation bilaterally. No wheezes or crackles. CV - heart was regular rate and rhythm. S1-S2. No murmurs gallops or rubs. Abd - abdomen was soft. Nontender. Nondistended. Positive bowel sounds. No organomegaly or masses. Ext - Right 3rd+4th toes have eschar, open wound on dorsal surface of R foot, no s/s of infxn. Severe PVD + neuropathy. 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 No s/s infxn. Dry/clean scabs present scattered on foot/leg. Neuro - patient is alert and oriented x4. Strength is 5/5 in both upper and lower extremities. Cranial nerves 2-12 are intact. Speech is clear. Psych - normal mood and affect. Patient is pleasant and cooperative. Skin - warm and dry. No rashes noted. H&P: Results Labs Labs: Short CBC 04/11/25 04/12/25 Range/Units 21:11 04:52 WBC 7.2 6.0 (4.5-10.0) K/mm3 Hgb 10.0 L 9.0 L (14.0-18.0) g/dL Hct 33.6 L 30.0 L (42.0-52.0) % Plt Count 347 297 (150-375) k/mm3 BMP 04/11/25 04/12/25 21:11 04:52 Sodium 139 141 Potassium 3.1 L 3.2 L Chloride 97 L 101 Carbon Dioxide 29 30 BUN 114 H D 104 H D Creatinine 4.38 H 3.57 H Glucose 235 H 132 H Calcium 8.6 8.2 L Liver Function 04/11/25 04/12/25 Range/Units 21:11 04:52 Total Bilirubin 0.6 0.6 (0.2-1.3) mg/dL AST 29 25 (17-59) U/L ALT 22 17 (6-50) U/L Alkaline Phosphatase 137 H 103 (38-126) U/L Albumin 4.5 4.0 (3.5-5.1) g/dL Urine 04/11/25 Range/Units 21:59 Urine Color Yellow (Yellow) Urine Appearance Clear (Clear) Urine pH 6.5 (5.0-9.0) Ur Specific [place] 1.011 (1.001-1.035) Urine Protein 1+ H (Negative) mg/dL Urine Glucose (UA) Negative (Negative) mg/dL Assessment and Plan Assessment and plan (1) Acute kidney injury superimposed on CKD: Code(s): N17.9 - Acute kidney failure, unspecified; N18.9 - Chronic kidney disease, unspecified Status: Acute Assessment and Plan: * Baseline: Cr 1.4-2.1. In ED: Cr 4.38 , GFR: 13, BUN: 114 * IV Fluids: NS 125ml/hr * Trend renal function * trend electrolytes, correct as needed * Add CK, urine sodium, protein/creatinine, urea * 04/12: Cr 3.57, GFR 17 * Nephrology consulting, pending (2) Electrolyte abnormality: Code(s): E87.8 - Other disorders of electrolyte and fluid balance, not elsewhere classified Status: Acute Assessment and Plan: * In ED: K 3.1, Mg 3.6, Phosphorus 4.8 * Likely secondary to CKD * K supplementation, continue IVF for hypomagnesemia * hold offending agents, Bumex, metolazone * Trend daily labs * Pending nephro consultation (3) Prolonged Q-T interval on ECG: Code(s): R94.31 - Abnormal electrocardiogram [ECG] [EKG] Status: Acute Assessment and Plan: * EKG on 02/14/25: electronic pacemaker, QTc 480 * EKG on 04/11/25: electronic pacemaker, QTc 588 * Currently asymptomatic * Correct electrolyte abnormalities * Hold offending agents, amiodarone, metolazone * Evaluate TSH * Monitor tele (4) Hyperglycemia due to diabetes mellitus: Code(s): E11.65 - Type 2 diabetes mellitus with hyperglycemia Status: Acute Assessment and Plan: - hypoglycemia protocol - POC blood glucose ACHS - home medication: Lantus 25 units b.i.d., lispro 10 units t.i.d. WM - correct regimen ordered - high dose TIDWM and HS, based off BMI - A1C 6.0% (04/11) (5) HTN (hypertension): Qualifiers: Hypertension type: primary hypertension Qualified Code(s): I10 - Essential (primary) hypertension Code(s): I10 - Essential (primary) hypertension Status: Chronic Assessment and Plan: * 131/66 * Blood pressure remains well controlled. * Will continue current medications. (6) Atrial fibrillation/flutter: Status: Acute Assessment and Plan: * Continue Eliquis 5mg BID (7) Peripheral vascular disease: Code(s): I73.9 - Peripheral vascular disease, unspecified Status: Acute Assessment and Plan: * Continue Clopidogrel 75mg daily Plan Diet: Diabetic, GI Prophylaxis: Not currently indicated DVT Prophylaxis: SCDs, Eliquis Lines: Peripheral Quality VTE Prophylaxis VTE prophylaxis: mechanical ordered and pharmacologic ordered
[2025-04-12 08:19] LABS: Glucose Point of Care 125 mg/dl (65-105)
[2025-04-12] MEDS: POTASSIUM CHLORIDE 20 MEQ ER TABLET 40 MEQ PO (08:28)
[2025-04-12 09:33] LABS: Eosinophil Urine None Seen % (None Seen)
[2025-04-12 09:34] LABS: Urine Eos QC 2nd Tech Confirmed
[2025-04-12 09:37] LABS: Creatinine Urine 59.8 mg/dL; Total Protein Urine Random 99 mg/dL
[2025-04-12 09:38] LABS: Creatinine Urine 59.5 mg/dL; Total Protein Urine Random 99 mg/dL; Ur Ttl Prot Creatinine Ratio 1.66 mg/mg (0-0.20)
[2025-04-12 09:42] LABS: Urea Random Urine 626 MG/DL
[2025-04-12 09:44] LABS: Sodium Urine Random 63 meq/L
[2025-04-12 10:05] LABS: Creatine Kinase 54 U/L (55-170)
--- NOTE | 2025-04-12 10:22 | P.CONNP_ITS ---
Assessment and Plan Assessment and plan (1) Acute kidney injury: Code(s): N17.9 - Acute kidney failure, unspecified Status: Acute Assessment and Plan: * as noted by outpatient labs and confirmed by ER testing * some improvement noted since admission * possible etiologies: * prerenal factors * outpatient diuretic use (bumex + metolazone) * infection(?) * other (?) * evaluation to date noted: * CT imaging & renal ultrasound without urinary obstruction * urine eosinophils negative * urine electrolytes non-prerenal * UA w/o evidence of infection * moderate proteinuria * CPK low/normal * diuretics on hold * check bladder scan (since known history of BPH) * trial of gentle IVF * follow trend of repeat labs and UOP (2) Stage 3b chronic kidney disease: Code(s): N18.32 - Chronic kidney disease, stage 3b Status: Chronic Assessment and Plan: * last creatinine running ~ 2.12 - 2.14mg/dl * creatinine 2.12mg/dl on 01/22/25 * on discharge/transfer from [facility] in January 2025, creatinine was 2.14mg/dl * was running ~ 1.4mg/dl on discharge in June 2023 * this argues he fluctuates between CKD stage 3A and stage 3B * requesting records from [facility] from last hospitalization in February 2025 * presumably due to his hypertension, diabetes, severe vascular disease, CHF, and age-related change (3) Hypokalemia: Code(s): E87.6 - Hypokalemia Status: Acute Assessment and Plan: * as noted on admission * due to outpatient diuretic therapy (and no K+ supplements) * cautious replacement given #1 * follow trend of potassium levels (4) Atrial fibrillation/flutter: Status: Acute Assessment and Plan: * rate control strategy * holding amiodarone due to findings of prolonged QT interval * remains on anticoagulation (Eliquis) (5) Peripheral vascular disease: Code(s): I73.9 - Peripheral vascular disease, unspecified Status: Acute Assessment and Plan: * complicated by chronic LE/foot wounds * wound care following * therapy as noted * on plavix and anticoagulation (6) Anemia: Code(s): D64.9 - Anemia, unspecified Status: Chronic Assessment and Plan: * due to GLORIA, CKD, and recent acute illnesses * check anemia studies * follow trend of H/H (7) HTN (hypertension): Qualifiers: Hypertension type: primary hypertension Qualified Code(s): I10 - Essential (primary) hypertension Code(s): I10 - Essential (primary) hypertension Status: Chronic Assessment and Plan: * reasonable control at this time * follow trend of hemodynamics (8) Diabetes mellitus with chronic kidney disease: Code(s): E11.22 - Type 2 diabetes mellitus with diabetic chronic kidney disease Status: Chronic Assessment and Plan: * follow accu-cheks * glycemic control per hospitalist I will continue to follow the patient with you while he remains hospitalized and make further recommendations as deemed necessary. Thank you for allowing me to participate in the care of this patient. L History of Present Illness Reason for Consult Consult date: 04/12/25 Reason for consult: acute renal failure (on chronic kidney disease) Chief Complaint Chief complaint: acute renal failure; prolonged QT History of Present Illness Narrative: The patient is a 70-year-old male the past medical history as outlined below who presented to [facility] for further evaluation abnormal labs. Patient apparently had outpatient labs done which demonstrated evidence acute kidney injury on top his baseline chronic kidney disease with reported BUN of 104 creatinine of 3 point. Due this significant change in his renal function, his primary care physician instructed in come to the ER for further assessment. According to the patient, he has noted/ experience decreased urinary output over last several days but did not think much of it. He gave no other history with regard to chest pain, shortness of breath nausea, vomiting dizziness, lightheadedness abdominal pain, diarrhea or palpitations. It should be noted that the patient was recently hospitalized here at [facility] in January of [address] [facility] for further assessment vascular surgery regarding his diabetic foot wounds. Workup and evaluation emergency room demonstrated the patient be hemodynamically stable and afebrile. Routine blood tests were done which demonstrated a CBC with a white blood cell count of 7.2, hemoglobin 10 along with a normal platelet count and his chemistry showed BUN of 114 with a creatinine 4.3 a without any critical electrolyte abnormalities but with noted hypokalemia with a potassium 3.1; His liver function tests normal and his urinalysis was unremarkable as well. EKG showed electronic atrial/ ventricular pacing without any evidence ischemic changes. Given his marked change in his renal function from baseline, CT scan of the abdomen pelvis was done which demonstrated suspected fecal impaction/constipation with probable minimal stercoral proctitis as well as umbilical hernia but no other acute pathology. He was subsequently admitted to hospital further evaluation and therapy Since his admission, repeat labs have shown some mild improvement in his overall renal function. a renal ultrasound has already been done which demonstrates no evidence kidney stones, hydronephrosis, or any other pathology. Renal consultation was requested due to his acute kidney injury/acute renal failure on top of his baseline chronic kidney disease. From review of his labs both here at [facility] and from his outpatient testing, the patient has known chronic kidney disease although his baseline creatinine is not entirely clear. As already mentioned above, on transfer from [facility] in January 2025, his creatinine had improved to 2.14 mg/dL from an admission creatinine of 2.75 mg/dL. He had labs done earlier in January 2025 that showed a creatinine of 2.12 mg/dL. Prior to that, the only labs I have available are from June 2023 where his creatinine was 1.4mg/dl. From my discussion with the patient, he has never seen a software design engineer before and his primary care physician manages all of his chronic medical issues/problems. Currently, the time my evaluation, he appears to be in no acute distress. Review of Systems 2 Review of Systems: As per HPI. [facility] Past Medical History Medical History (Updated 04/14/25 @ 15:18 by Escobar Wiley PA-C) CKD (chronic kidney disease) Stage 3 Pressure ulcer of right foot 2021 BPH (benign prostatic hyperplasia) HTN (hypertension) Congestive heart failure Diabetes mellitus type 2 in obese Atrial fibrillation/flutter Hypothyroidism Surgical History Surgical History S/P foot surgery, right 2021 Family History Family History Unknown Diabetes mellitus Social History Social History Social History: Smoking status: Never smoker Alcohol intake: former Substance use: never Do You Feel Safe in your Home?: Yes Lack of Transportation: No Lack of Food: Never True Current Housing: I Have Housing Concerned About Future Housing: No Difficulty Paying Gas/Electric Bills: No Difficulty Paying for Meds: No Currently Unemployed: No Education: High School Diploma/GED Difficulty w/ Childcare or Family Care: No Living arrangements: with family Additional living arrangements comments: Spiritual care concerns: No Meds Home Medications and Allergies Home Medications ?Medication ?Instructions ?Recorded ?Confirmed ?Type atorvastatin 20 mg tablet 20 mg PO HS 06/30/23 04/12/25 History amiodarone 200 mg tablet (Pacerone) 200 mg PO Q12HR #60 tabs 07/01/23 04/12/25 Rx aspirin 81 mg chewable tablet 81 mg PO DAILY@0800 #30 tabs 07/01/23 04/12/25 Rx (Children's Aspirin) calcium carbonate 500 mg PO Q6H PRN Indigestion #30 07/01/23 04/12/25 Rx tabs cholecalciferol (vitamin D3) 1,250 50,000 unit PO WEEKLY #4 caps 07/01/23 04/12/25 Rx mcg (50,000 unit) capsule cyclobenzaprine 10 mg tablet 5 mg (1/2 x 10 mg) PO Q8H PRN 07/01/23 04/12/25 Rx Muscle Spasm #30 tabs famotidine 20 mg tablet 20 mg PO DAILY #30 tabs 07/01/23 04/12/25 Rx ipratropium 0.5 mg-albuterol 3 mg 3 ml inhalation Q6HRT #60 mL 07/01/23 04/12/25 Rx (2.5 mg base)/3 mL nebulization soln levothyroxine 50 mcg tablet 50 mcg PO DAILY@0630 #30 tabs 07/01/23 04/12/25 Rx (Synthroid) metoprolol tartrate 25 mg tablet 25 mg PO Q12HR #60 tabs 07/01/23 04/12/25 Rx ramelteon 8 mg tablet 8 mg PO HS #30 tabs 07/01/23 04/12/25 Rx sennosides 8.6 mg-docusate sodium 1 tab PO HS #30 tabs 07/01/23 04/12/25 Rx 50 mg tablet (Senokot-S) sodium hypochlorite 0.25 % 1 applic topical BID #10 mL 07/01/23 04/12/25 Rx solution (Dakin's Solution) tamsulosin 0.4 mg capsule 0.4 mg PO QAM #30 caps 07/01/23 04/12/25 Rx tramadol 50 mg tablet 50 mg PO Q8H PRN Pain Rated 4-6 07/01/23 04/12/25 Rx #20 tabs albuterol 90 mcg/actuation aerosol 90 mcg inhalation .q4hr PRN 02/14/25 04/12/25 History inhaler shortness of breath apixaban 5 mg tablet (Eliquis) 5 mg PO BID 02/14/25 04/12/25 History bumetanide 1 mg tablet 1 mg PO BID 02/14/25 04/12/25 History insulin glargine 100 unit/mL (3 25 unit subcut .q12hr 02/14/25 04/12/25 History mL) subcutaneous pen (Basaglar KwikPen U-100 Insulin) insulin lispro 100 unit/mL 10 unit subcut TIDWM 02/14/25 04/12/25 History subcutaneous pen (Humalog KwikPen (U-100) Insulin) metolazone 2.5 mg tablet 2.5 mg PO QMWF 02/14/25 04/12/25 History acetaminophen 325 mg tablet 650 mg PO Q4H PRN Pain Rated 5 Or 04/12/25 04/12/25 History Less amlodipine 2.5 mg tablet 5 mg PO DAILY 04/12/25 04/12/25 History clopidogrel 75 mg tablet 75 mg PO DAILY 04/12/25 04/12/25 History ferrous sulfate 325 mg (65 mg 325 mg PO DAILY 04/12/25 04/12/25 History iron) tablet,delayed release magnesium citrate 100 mg capsule 200 mg PO HS 04/12/25 04/12/25 History miconazole nitrate 2 % topical applic topical BID 04/12/25 History cream trazodone 50 mg tablet 25 mg PO QHS 04/12/25 04/12/25 History Allergies Allergy/AdvReac Type Severity Reaction Status Date / Time No Known Allergies Allergy Verified 04/11/25 18:13 Vital Signs Vital Signs Temp Pulse Resp BP Pulse Ox O2 Del Method 04/12/25 08:00 65 04/12/25 08:00 Room Air 04/12/25 06:00 97.8 F 94 18 131/66 96 04/12/25 04:00 79 04/12/25 02:28 97.3 F L 70 18 150/73 H 100 04/12/25 02:21 Room Air 04/12/25 01:46 66 20 161/81 H 97 04/12/25 01:40 66 20 161/81 H 97 04/12/25 01:39 66 04/12/25 01:10 70 21 H 155/79 H 96 04/11/25 23:59 68 17 149/71 H 21 L 04/11/25 22:01 20 98 04/11/25 20:13 71 15 140/72 100 04/11/25 18:34 97.8 F 60 17 126/61 100 Room Air Exam 2 Narrative: GENERAL APPEARANCE: elderly but well developed well nourished male in no acute distress HEENT: normocephalic, atraumatic, normal conjunctiva and sclera, nares patient NECK: no lymphadenopathy, thyromegaly, or JVD MOUTH: normal lips, teeth, and gums CARDIOVASCULAR: RRR, normal S1 and S2, no rub detected RESPIRATORY: clear anteriorly ABDOMEN: obese but soft, nontender, nondistended, positive bowel sounds present EXTREMITIES: no evidence of cyanosis, clubbing, or edema NEUROLOGICAL: alert and oriented x 3; CN II - XII intact bilaterally; no focal deficits noted SKIN: left 3rd/th distal toe amputations; right 3rd/4th toe eschar; right foot wound noted; scattered scabs on LEs Results Lab Results 04/15/25 05:12 04/15/25 05:12 Lab results: Most recent lab results Calcium 8.2 mg/dL (8.4-10.2) L 04/12/25 04:52 Phosphorus 4.3 mg/dL (2.5-4.5) 04/12/25 04:52 Magnesium 3.3 mg/dL (1.6-2.3) H 04/12/25 04:52 Urine Creatinine 59.5 mg/dL 04/12/25 08:36 Urine Creatinine 59.8 mg/dL 04/12/25 08:36
[2025-04-12 12:17] LABS: Glucose Point of Care 119 mg/dl (65-105)
[2025-04-12 17:11] LABS: Glucose Point of Care 136 mg/dl (65-105)
[2025-04-12] MEDS: APIXABAN 5 MG TABLET PO (20:46)
[2025-04-12] MEDS: ATORVASTATIN 20 MG TABLET PO (20:47)
[2025-04-12] MEDS: METOPROLOL TARTRATE 25 MG TABLET PO (20:47)
[2025-04-12 20:55] LABS: Glucose Point of Care 146 mg/dl (65-105)
[2025-04-12] MEDS: INSULIN GLARGINE (*BKC) 100 UNITS/ML 26 UNITS SUB-Q (20:55)
[2025-04-12] MEDS: MELATONIN 5 MG TABLET 10 MG PO (23:12)
[2025-04-13] VITALS (12 sets, daily range): BP systolic 111–152; BP diastolic 49–73; PULSE 63–80; RESP 16–20; TEMP 36.6–36.7; O2SAT 96–100
[2025-04-13 04:56] LABS: Basophils Absolute Auto 0.1 K/mm3 (0.0-0.1); Basophils Percent Auto 0.9 % (0.2-1.2); Eosinophils Absolute Auto 0.2 K/mm3 (0-0.3); Hematocrit 28.1 % (42.0-52.0); Hemoglobin 8.4 g/dL (14.0-18.0); Immature Granulocyte Absolute 0.02 K/mm3 (0.00-0.031); Immature Granulocyte Percent A 0.4 % (0-0.5); Lymphocytes Absolute Auto 1.43 K/mm3 (0.9-3.2); Lymphocytes Percent Auto 26.9 % (18.3-44.2); Mean Corpuscular HGB Conc 29.9 g/dl (32-36); Mean Corpuscular Hemoglobin 26.6 pg (26-34); Mean Corpuscular Volume 88.9 fl (80-100); Mean Platelet Volume 9.5 fl (7.4-10.4); Monocytes Absolute Auto 0.4 K/mm3 (0.1-0.6); Monocytes Percent Auto 7.2 % (2.6-8.5); Neutrophils Absolute Auto 3.2 K/mm3 (1.3-6.7); Neutrophils Percent Auto 60.6 % (45.5-73.1); Platelet Count Result 292 k/mm3 (150-375); Red Blood Count 3.16 M/mm3 (4.6-6.20); Red Cell Distribution Width 16.3 % (11.5-14.5); White Blood Count 5.3 K/mm3 (4.5-10.0)
[2025-04-13 05:20] LABS: Alanine Aminotransferase 16 U/L (6-50); Albumin Level 3.6 g/dL (3.5-5.1); Alkaline Phosphatase 85 U/L (38-126); Anion Gap 8 mmol/L (4-12); Aspartate Amino Transferase 24 U/L (17-59); Bilirubin,Total 0.4 mg/dL (0.2-1.3); Blood Urea Nitrogen 81 mg/dL (9-20); Calcium 8.2 mg/dL (8.4-10.2); Carbon Dioxide 28 mmol/L (22-30); Chloride 107 mmol/L (98-107); Estimated CRCL calculation 32 ml/min; Estimated Glomerular Filt Rate 23; Glucose 119 mg/dL (65-110); Magnesium 3.2 mg/dL (1.6-2.3); Phosphorus 3.4 mg/dL (2.5-4.5); Potassium 3.2 mmol/L (3.4-5.0); Sodium 143 mmol/L (137-145)
[2025-04-13] MEDS: LEVOTHYROXINE SODIUM 50 MCG TABLET PO (06:06)
[2025-04-13] MEDS: SODIUM CHLORIDE 0.9% IV 1,000 ML 75 ML IV CONT (06:38)
--- NOTE | 2025-04-13 07:06 | P.PNIM_ITS ---
Progress Note: A&P Assessment and Plan (1) Acute kidney injury superimposed on CKD: Code(s): N17.9 - Acute kidney failure, unspecified; N18.9 - Chronic kidney disease, unspecified Status: Acute Assessment and Plan: * Baseline: Cr 1.4-2.1. In ED: Cr 4.38 , GFR: 13, BUN: 114 * IV Fluids: NS 125ml/hr * Trend renal function * trend electrolytes, correct as needed * Add CK, urine sodium, protein/creatinine, urea * 04/11 - 04/13: Cr 4.38->3.57->2.69 * Nephrology consulting * Hold diuretics * Bladder Scan- over 1,000ml. Blair placed and received >1000ml of output * Continue IVF hydration (2) Electrolyte abnormality: Code(s): E87.8 - Other disorders of electrolyte and fluid balance, not elsewhere classified Status: Acute Assessment and Plan: * In ED: K 3.1, Mg 3.6, Phosphorus 4.8 * Likely secondary to CKD * K supplementation, continue IVF for hypomagnesemia * hold offending agents, Bumex, metolazone * Trend daily labs * Pending nephro consultation * 04/13: K 3.2 * Further oral supplementation (3) Prolonged Q-T interval on ECG: Code(s): R94.31 - Abnormal electrocardiogram [ECG] [EKG] Status: Acute Assessment and Plan: * EKG on 02/14/25: electronic pacemaker, QTc 480 * EKG on 04/11/25: electronic pacemaker, QTc 588 * Currently asymptomatic * Correct electrolyte abnormalities * Hold offending agents, amiodarone, metolazone * Evaluate TSH * Monitor tele (4) Hyperglycemia due to diabetes mellitus: Code(s): E11.65 - Type 2 diabetes mellitus with hyperglycemia Status: Acute Assessment and Plan: - hypoglycemia protocol - POC blood glucose ACHS - home medication: Lantus 25 units b.i.d., lispro 10 units t.i.d. WM - correct regimen ordered - high dose TIDWM and HS, based off BMI - A1C 6.0% (04/11) (5) HTN (hypertension): Qualifiers: Hypertension type: primary hypertension Qualified Code(s): I10 - Essential (primary) hypertension Code(s): I10 - Essential (primary) hypertension Status: Chronic Assessment and Plan: * 152/73 * Blood pressure remains well controlled. * Will continue current medications. (6) Atrial fibrillation/flutter: Status: Acute Assessment and Plan: * Continue Eliquis 5mg BID * rate control * Hold amiodarone (7) Peripheral vascular disease: Code(s): I73.9 - Peripheral vascular disease, unspecified Status: Acute Assessment and Plan: * Continue Clopidogrel 75mg daily * Wound care Plan Diet: Diabetic, GI Prophylaxis: Not currently indicated DVT Prophylaxis: SCDs, Eliquis Lines: Peripheral Time Spent With Patient Time: - Subjective Date/time seen: 04/13/25 07:06 Interval history: Patient is a 70-year-old male with a past medical history of DM2, CKD, previous diabetic foot infections, pacemaker, atrial fibrillation, CHF, BPH, hypothyroidism who presents to the hospital after his primary care physician obtained blood work which showed worsening kidney function and hypokalemia. 04/13/2025 Patient sitting in bed at time of exam. Denies any chest pain, shortness of breath, n/v, or abdominal pain. Creatinine continues to improve, down from 4.38 ->2.69 today. K still low, 3.2 today. Will continue giving incremental supplementation. Patient was bladder scanned given h/o BPH. No other complaints or concerns at this time. Likely d/c tomorrow. Review of Systems Review of Systems: All systems reviewed & are unremarkable except as noted in HPI and below Exam Narrative: Gen - obese well appearing male in no acute respiratory distress who is nontoxic-appearing lying semi recumbent in bed HEENT - normocephalic. Atraumatic. Pupils equal round and reactive. Extraocular motions intact. Sclera clear and anicteric. Nares patent. Moist mucous membranes. Tongue was midline. No facial asymmetry. Neck - neck was supple. Chest - lungs are clear to auscultation bilaterally. No wheezes or crackles. CV - heart was regular rate and rhythm. S1-S2. No murmurs gallops or rubs. Abd - abdomen was soft. Nontender. Nondistended. Positive bowel sounds. No organomegaly or masses. Ext - Right 3rd+4th toes have eschar, open wound on dorsal surface of R foot, no s/s of infxn. Severe PVD + neuropathy. 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 No s/s infxn. Dry/clean scabs present scattered on foot/leg. Neuro - patient is alert and oriented x4. Strength is 5/5 in both upper and lower extremities. Cranial nerves 2-12 are intact. Speech is clear. Psych - normal mood and affect. Patient is pleasant and cooperative. Skin - warm and dry. No rashes noted. Objective Data Vital Signs Vital Signs: Vital Signs - 24 hr 04/12/25 08:00 04/12/25 08:00 04/12/25 11:37 Temperature Pulse Rate 65 Respiratory Rate Blood Pressure Pulse Oximetry 95 Oxygen Delivery Room Air Room Air 04/12/25 12:00 04/12/25 14:00 04/12/25 16:00 Temperature 97.7 F Pulse Rate 60 94 74 Respiratory Rate 18 Blood Pressure 128/63 Pulse Oximetry 96 Oxygen Delivery 04/12/25 20:00 04/12/25 20:00 04/12/25 20:47 Temperature Pulse Rate 65 70 Respiratory Rate Blood Pressure Pulse Oximetry Oxygen Delivery Room Air 04/12/25 21:03 04/13/25 00:00 04/13/25 04:00 Temperature 97.6 F Pulse Rate 60 79 68 Respiratory Rate 16 Blood Pressure 144/66 H Pulse Oximetry 97 Oxygen Delivery 04/13/25 05:56 Temperature 98.0 F Pulse Rate 67 Respiratory Rate 20 Blood Pressure 111/49 L Pulse Oximetry 100 Oxygen Delivery Intake/Output Intake/Output: Intake & Output 04/10/25 04/11/25 04/12/25 04/13/25 23:59 23:59 23:59 23:59 Intake Total 2001.2 1400 Output Total 800 1300 1300 Balance -800 701.2 100 Meds/Results Medications: Active Medications Generic Name Dose Route Start Last Admin Trade Name Freq PRN Reason Stop Dose Admin Acetaminophen 650 mg 04/12/25 14:03 Acetaminophen 325 Mg Tablet PO Q4H PRN Pain Rated 1-3 Albuterol 2 puff 04/12/25 14:27 Albuterol Sulfate (*Sp) Aerosol 1 Puff INHALATION Q4HRT PRN shortness of breath Amlodipine Besylate 5 mg 04/13/25 09:00 Amlodipine Besylate 5 Mg Tablet PO DAILY TORY Apixaban 5 mg 04/12/25 21:00 04/12/25 20:46 Apixaban 5 Mg Tablet PO 5 mg Q12HR TORY Administration Atorvastatin Calcium 20 mg 04/12/25 21:00 04/12/25 20:47 Atorvastatin 20 Mg Tablet PO 20 mg HS TORY Administration Calcium Carbonate 500 mg 04/12/25 14:03 Calcium Carbonate (Tums) 500 Mg (200 Mg Elemental) PO Q6H PRN Indigestion Clopidogrel Bisulfate 75 mg 04/13/25 09:00 Clopidogrel Bisulfate 75 Mg Tablet PO DAILY TORY Dextrose 12.5 gm 04/11/25 23:42 Dextrose 50% 25 Gm/50 Ml Syringe IV PUSH PRN PRN Hypoglycemia Protocol Dextrose 12.5 gm 04/12/25 14:16 Dextrose 50% 25 Gm/50 Ml Syringe IV PUSH PRN PRN Hypoglycemia Protocol Famotidine 20 mg 04/13/25 09:00 Famotidine 20 Mg Tablet PO DAILY TORY Glucagon 1 mg 04/11/25 23:42 Glucagon For Inj 1 Mg Vial IM PRN PRN Hypoglycemia Protocol Glucagon 1 mg 04/12/25 14:16 Glucagon For Inj 1 Mg Vial IM PRN PRN Hypoglycemia Protocol Glucose 15 gm 04/11/25 23:42 Glucose Oral Gel 15 Gm Of Glucse In 37.5 Gm Tube PO PRN PRN Hypoglycemia Protocol Glucose 15 gm 04/12/25 14:16 Glucose Oral Gel 15 Gm Of Glucse In 37.5 Gm Tube PO PRN PRN Hypoglycemia Protocol Sodium Chloride 1,000 mls @ 75 mls/hr 04/11/25 23:45 04/13/25 06:38 Normal Saline Iv IV CONT 75 mls/hr .[id number] TORY Administration Dextrose 1,000 mls @ 100 mls/hr 04/11/25 23:42 Dextrose 5% 1,000 Ml IVPB PRN PRN Hypoglycemia Protocol Dextrose 1,000 mls @ 100 mls/hr 04/12/25 14:16 Dextrose 5% 1,000 Ml IVPB PRN PRN Hypoglycemia Protocol Insulin Aspart 4 - 8 units 04/12/25 17:00 04/12/25 17:17 Insulin Aspart (*Bkc) 100 Units/Ml SUB-Q Not Given TIDWM [facility] Protocol Insulin Aspart 2 - 4 units 04/12/25 21:00 04/12/25 21:17 Insulin Aspart (*Bkc) 100 Units/Ml SUB-Q Not Given HS [facility] Protocol Insulin Glargine 26 units 04/12/25 21:00 04/12/25 20:55 Insulin Glargine (*Bkc) 100 Units/Ml 0.2 units/kg (26 units) 26 units SUB-Q Administration HS [facility] Levothyroxine Sodium 50 mcg 04/13/25 06:30 04/13/25 06:06 Levothyroxine Sodium 50 Mcg Tablet PO 50 mcg DAILY@0630 [facility] Administration Metoprolol Tartrate 25 mg 04/12/25 21:00 04/12/25 20:47 Metoprolol Tartrate 25 Mg Tablet PO 25 mg Q12HR [facility] Administration Tamsulosin HCl 0.4 mg 04/13/25 09:00 Tamsulosin Hcl 0.4 Mg Capsule PO QAM [facility] Tramadol HCl 50 mg 04/12/25 14:13 Tramadol Hcl (*Crx) 50 Mg Tablet PO Q8H PRN Pain Rated 4-6 Radiology Results: ITS Impressions Abdomen/Pelvis CT 04/12/25 05:20 Impression: No significant abnormality of the system identified. Suspected fecal impaction/constipation, with probable minimal stercoral proctitis. Gallbladder sludge and possibly small layering stones, versus vicarious excretion of contrast. Small fat-containing umbilical hernia. Renal Ultrasound 04/12/25 10:01 Impression: 1: Unremarkable renal ultrasound. No stones, masses or hydronephrosis. Chest X-Ray 04/12/25 16:59 IMPRESSION: No focal infiltrate or effusion. Labs Labs: Laboratory Results - last 24 hr 04/11/25 04/12/25 04/12/25 21:10 04:52 08:16 WBC RBC Hgb Hct MCV MCH MCHC RDW Plt Count MPV Immature Gran % (Auto) Neut % (Auto) Lymph % (Auto) Randall % (Auto) Eos % (Auto) Baso % (Auto) Lymph # (Auto) Randall # (Auto) Eos # (Auto) Baso # (Auto) Abs Immat Gran (auto) Absolute Neuts (auto) Absolute Nucleated RBC Nucleated RBC % Sodium Potassium Chloride Carbon Dioxide Anion Gap BUN Creatinine Estim Creat Clear Calc Estimated GFR Glucose POC Capillary Glucose 125 H Calcium Phosphorus Magnesium Total Bilirubin AST ALT Alkaline Phosphatase Total Creatine Kinase 54 L Total Protein Albumin TSH (Reflex) 3.550 Urine Eosinophils U Random Total Protein Ur Random Sodium Ur Random Urea Urine Creatinine Protein/Creat Ratio 2 05/23/25 05/23/25 05/23/25 08:36 08:36 08:36 WBC RBC Hgb Hct MCV MCH MCHC RDW Plt Count MPV Immature Gran % (Auto) Neut % (Auto) Lymph % (Auto) Randall % (Auto) Eos % (Auto) Baso % (Auto) Lymph # (Auto) Randall # (Auto) Eos # (Auto) Baso # (Auto) Abs Immat Gran (auto) Absolute Neuts (auto) Absolute Nucleated RBC Nucleated RBC % Sodium Potassium Chloride Carbon Dioxide Anion Gap BUN Creatinine Estim Creat Clear Calc Estimated GFR Glucose POC Capillary Glucose Calcium Phosphorus Magnesium Total Bilirubin AST ALT Alkaline Phosphatase Total Creatine Kinase Total Protein Albumin TSH (Reflex) Urine Eosinophils None seen U Random Total Protein 99 99 Ur Random Sodium 63 Ur Random Urea 626 Urine Creatinine 59.5 59.8 Protein/Creat Ratio 2 1.66 H 04/12/25 04/12/25 04/12/25 12:15 17:09 20:52 WBC RBC Hgb Hct MCV MCH MCHC RDW Plt Count MPV Immature Gran % (Auto) Neut % (Auto) Lymph % (Auto) Randall % (Auto) Eos % (Auto) Baso % (Auto) Lymph # (Auto) Randall # (Auto) Eos # (Auto) Baso # (Auto) Abs Immat Gran (auto) Absolute Neuts (auto) Absolute Nucleated RBC Nucleated RBC % Sodium Potassium Chloride Carbon Dioxide Anion Gap BUN Creatinine Estim Creat Clear Calc Estimated GFR Glucose POC Capillary Glucose 119 H 136 H 146 H Calcium Phosphorus Magnesium Total Bilirubin AST ALT Alkaline Phosphatase Total Creatine Kinase Total Protein Albumin TSH (Reflex) Urine Eosinophils U Random Total Protein Ur Random Sodium Ur Random Urea Urine Creatinine Protein/Creat Ratio 2 04/13/25 04:10 WBC 5.3 RBC 3.16 L Hgb 8.4 L Hct 28.1 L MCV 88.9 MCH 26.6 MCHC 29.9 L RDW 16.3 H Plt Count 292 MPV 9.5 Immature Gran % (Auto) 0.4 Neut % (Auto) 60.6 Lymph % (Auto) 26.9 Randall % (Auto) 7.2 Eos % (Auto) 4.0 Baso % (Auto) 0.9 Lymph # (Auto) 1.43 Randall # (Auto) 0.4 Eos # (Auto) 0.2 Baso # (Auto) 0.1 Abs Immat Gran (auto) 0.02 Absolute Neuts (auto) 3.2 Absolute Nucleated RBC 0.000 Nucleated RBC % 0.0 Sodium 143 Potassium 3.2 L Chloride 107 Carbon Dioxide 28 Anion Gap 8 BUN 81 H D Creatinine 2.69 H Estim Creat Clear Calc 32 Estimated GFR 23 L Glucose 119 H POC Capillary Glucose Calcium 8.2 L Phosphorus 3.4 Magnesium 3.2 H Total Bilirubin 0.4 AST 24 ALT 16 Alkaline Phosphatase 85 Total Creatine Kinase Total Protein 7.0 Albumin 3.6 TSH (Reflex) Urine Eosinophils U Random Total Protein Ur Random Sodium Ur Random Urea Urine Creatinine Protein/Creat Ratio 2 Quality VTE Prophylaxis VTE prophylaxis: mechanical ordered and pharmacologic ordered
[2025-04-13 08:27] LABS: Glucose Point of Care 108 mg/dl (65-105)
[2025-04-13] MEDS: METOPROLOL TARTRATE 25 MG TABLET PO ×2 (08:37→20:46)
[2025-04-13] MEDS: CLOPIDOGREL BISULFATE 75 MG TABLET PO (08:37)
[2025-04-13] MEDS: FAMOTIDINE 20 MG TABLET PO (08:37)
[2025-04-13] MEDS: amLODIPine BESYLATE 5 MG TABLET PO (08:37)
[2025-04-13] MEDS: TAMSULOSIN HCL 0.4 MG CAPSULE PO (08:38)
[2025-04-13] MEDS: APIXABAN 5 MG TABLET PO ×2 (08:38→20:46)
--- NOTE | 2025-04-13 11:01 | P.PNNP_ITS ---
Progress Note: A&P Assessment and Plan (1) Acute kidney injury: Code(s): N17.9 - Acute kidney failure, unspecified Status: Acute Assessment and Plan: * as noted by outpatient labs and confirmed by ER testing * some improvement noted since admission * possible etiologies: * prerenal factors * outpatient diuretic use (bumex + metolazone) * urinary retention (as noted by bladder scan on 04/14 afternoon) * infection(?) * other (?) * evaluation to date noted: * CT imaging & renal ultrasound without urinary obstruction * urine eosinophils negative * urine electrolytes non-prerenal * UA w/o evidence of infection * moderate proteinuria * CPK low/normal * diuretics on hold * arroyo catheter in place due to urinary retention * trial of gentle IVF - wean as off as tolerated * follow trend of repeat labs and UOP (2) Stage 3b chronic kidney disease: Code(s): N18.32 - Chronic kidney disease, stage 3b Status: Chronic Assessment and Plan: * last creatinine running ~ 2.12 - 2.14mg/dl * creatinine 2.12mg/dl on 01/22/25 * on discharge/transfer from [facility] in January 2025, creatinine was 2.14mg/dl * was running ~ 1.4mg/dl on discharge in June 2023 * this argues he fluctuates between CKD stage 3A and stage 3B * awaiting records from [facility] from last hospitalization in February 2025 * presumably due to his hypertension, diabetes, severe vascular disease, CHF, and age-related change * component of urinary retention playing a role as well (as noted by bladder scan) (3) Hypokalemia: Code(s): E87.6 - Hypokalemia Status: Acute Assessment and Plan: * as noted on admission * due to outpatient diuretic therapy (and no K+ supplements) * cautious replacement given #1 * follow trend of potassium levels (4) Atrial fibrillation/flutter: Status: Acute Assessment and Plan: * rate control strategy * holding amiodarone due to findings of prolonged QT interval * remains on anticoagulation (Eliquis) (5) Peripheral vascular disease: Code(s): I73.9 - Peripheral vascular disease, unspecified Status: Acute Assessment and Plan: * complicated by chronic LE/foot wounds * wound care following * therapy as noted * on plavix and anticoagulation (6) Anemia: Code(s): D64.9 - Anemia, unspecified Status: Chronic Assessment and Plan: * due to GLORIA, CKD, and recent acute illnesses * consider checking anemia studies if hemoglobin worsens * follow trend of H/H (7) HTN (hypertension): Qualifiers: Hypertension type: primary hypertension Qualified Code(s): I10 - Essential (primary) hypertension Code(s): I10 - Essential (primary) hypertension Status: Chronic Assessment and Plan: * reasonable control at this time * follow trend of hemodynamics (8) Diabetes mellitus with chronic kidney disease: Code(s): E11.22 - Type 2 diabetes mellitus with diabetic chronic kidney disease Status: Chronic Assessment and Plan: * follow accu-cheks * glycemic control per hospitalist Will continue to follow. L Subjective Date/time seen: 04/13/25 11:01 Interval history: Follow-up for acute kidney injury/acute renal failure on chronic kidney disease. Renal function/creatinine continues to improve since admission; bladder scan yesterday afternoon reveal almost 1000cc of urine in bladder and subsequent arroyo catheter placement resulted in immediate return of 950cc of urine; no apparent distress voiced at the time of my visit; family at bedside and we discussed the situation. Exam 2 Narrative: General: elderly but WD/WN Caucasuian male in NAD Heart: normal S1 and S2; no rub Lungs: clear anteriorly Abdomen: obese but soft, nontender, nondistended, positive bowel sounds Extremities: no cyanosis or clubbing; no edema Skin: left 3rd/4th distal toe amputations; right 3rd/4th toe eschar; right foot wound noted; scattered scabs on LEs Objective Data Vital Signs Vital Signs: Vital Signs Temp Pulse Resp BP Pulse Ox O2 Del Method 04/13/25 11:00 63 04/13/25 08:38 80 04/13/25 08:38 Room Air 04/13/25 08:38 70 152/73 H 04/13/25 08:37 70 04/13/25 05:56 98.0 F 67 20 111/49 L 100 04/13/25 04:00 68 04/13/25 00:00 79 04/12/25 21:03 97.6 F 60 16 144/66 H 97 04/12/25 20:47 70 04/12/25 20:00 65 04/12/25 20:00 Room Air 04/12/25 16:00 74 04/12/25 14:00 97.7 F 94 18 128/63 96 Intake/Output Intake/Output: Intake & Output 04/10/25 04/11/25 04/12/25 04/13/25 23:59 23:59 23:59 23:59 Intake Total 2000.2 1880 Output Total 800 1300 1300 Balance -800 701.2 580 Meds/Results Medications: Active Medications Generic Name Dose Route Start Last Admin Trade Name Freq PRN Reason Stop Dose Admin Acetaminophen 650 mg 04/12/25 14:03 Acetaminophen 325 Mg Tablet PO Q4H PRN Pain Rated 1-3 Albuterol 2 puff 04/12/25 14:27 Albuterol Sulfate (*Sp) Aerosol 1 Puff INHALATION Q4HRT PRN shortness of breath Amlodipine Besylate 5 mg 04/13/25 09:00 04/13/25 08:37 Amlodipine Besylate 5 Mg Tablet PO 5 mg DAILY TORY Administration Apixaban 5 mg 04/12/25 21:00 04/13/25 08:38 Apixaban 5 Mg Tablet PO 5 mg Q12HR TORY Administration Atorvastatin Calcium 20 mg 04/12/25 21:00 04/12/25 20:47 Atorvastatin 20 Mg Tablet PO 20 mg HS TORY Administration Calcium Carbonate 500 mg 04/12/25 14:03 Calcium Carbonate (Tums) 500 Mg (200 Mg Elemental) PO Q6H PRN Indigestion Clopidogrel Bisulfate 75 mg 04/13/25 09:00 04/13/25 08:37 Clopidogrel Bisulfate 75 Mg Tablet PO 75 mg DAILY TORY Administration Dextrose 12.5 gm 04/11/25 23:42 Dextrose 50% 25 Gm/50 Ml Syringe IV PUSH PRN PRN Hypoglycemia Protocol Dextrose 12.5 gm 04/12/25 14:16 Dextrose 50% 25 Gm/50 Ml Syringe IV PUSH PRN PRN Hypoglycemia Protocol Famotidine 20 mg 04/13/25 09:00 04/13/25 08:37 Famotidine 20 Mg Tablet PO 20 mg DAILY TORY Administration Glucagon 1 mg 04/11/25 23:42 Glucagon For Inj 1 Mg Vial IM PRN PRN Hypoglycemia Protocol Glucagon 1 mg 04/12/25 14:16 Glucagon For Inj 1 Mg Vial IM PRN PRN Hypoglycemia Protocol Glucose 15 gm 04/11/25 23:42 Glucose Oral Gel 15 Gm Of Glucse In 37.5 Gm Tube PO PRN PRN Hypoglycemia Protocol Glucose 15 gm 04/12/25 14:16 Glucose Oral Gel 15 Gm Of Glucse In 37.5 Gm Tube PO PRN PRN Hypoglycemia Protocol Sodium Chloride 1,000 mls @ 75 mls/hr 04/11/25 23:45 04/13/25 06:38 Normal Saline Iv IV CONT 75 mls/hr .[id number] TORY Administration Dextrose 1,000 mls @ 100 mls/hr 04/11/25 23:42 Dextrose 5% 1,000 Ml IVPB PRN PRN Hypoglycemia Protocol Dextrose 1,000 mls @ 100 mls/hr 04/12/25 14:16 Dextrose 5% 1,000 Ml IVPB PRN PRN Hypoglycemia Protocol Insulin Aspart 4 - 8 units 04/12/25 17:00 04/13/25 12:08 Insulin Aspart (*Bkc) 100 Units/Ml SUB-Q Not Given TIDWM [facility] Protocol Insulin Aspart 2 - 4 units 04/12/25 21:00 04/12/25 21:17 Insulin Aspart (*Bkc) 100 Units/Ml SUB-Q Not Given HS [facility] Protocol Insulin Glargine 26 units 04/12/25 21:00 04/12/25 20:55 Insulin Glargine (*Bkc) 100 Units/Ml 0.2 units/kg (26 units) 26 units SUB-Q Administration [facility] Levothyroxine Sodium 50 mcg 04/13/25 06:30 04/13/25 06:06 Levothyroxine Sodium 50 Mcg Tablet PO 50 mcg DAILY@0630 [facility] Administration Metoprolol Tartrate 25 mg 04/12/25 21:00 04/13/25 08:37 Metoprolol Tartrate 25 Mg Tablet PO 25 mg Q12HR [facility] Administration Tamsulosin HCl 0.4 mg 04/13/25 09:00 04/13/25 08:38 Tamsulosin Hcl 0.4 Mg Capsule PO 0.4 mg QAM [facility] Administration Tramadol HCl 50 mg 04/12/25 14:13 Tramadol Hcl (*Crx) 50 Mg Tablet PO Q8H PRN Pain Rated 4-6 Radiology Results: ITS Impressions Abdomen/Pelvis CT 04/12/25 05:20 Impression: No significant abnormality of the system identified. Suspected fecal impaction/constipation, with probable minimal stercoral proctitis. Gallbladder sludge and possibly small layering stones, versus vicarious excretion of contrast. Small fat-containing umbilical hernia. Renal Ultrasound 04/12/25 10:01 Impression: 1: Unremarkable renal ultrasound. No stones, masses or hydronephrosis. Chest X-Ray 04/12/25 16:59 IMPRESSION: No focal infiltrate or effusion. Labs Labs: Laboratory Tests 04/13/25 04:10 04/13/25 04:10 Calcium 8.2 L Phosphorus 3.4 Magnesium 3.2 H Total Bilirubin 0.4 AST 24 ALT 16 Alkaline Phosphatase 85 Total Protein 7.0 Albumin 3.6
[2025-04-13 12:05] LABS: Glucose Point of Care 154 mg/dl (65-105)
[2025-04-13] MEDS: POTASSIUM CHLORIDE 20 MEQ ER TABLET PO (13:32)
[2025-04-13 17:02] LABS: Glucose Point of Care 165 mg/dl (65-105)
[2025-04-13] MEDS: ATORVASTATIN 20 MG TABLET PO (20:46)
[2025-04-13] MEDS: INSULIN GLARGINE (*BKC) 100 UNITS/ML 26 UNITS SUB-Q (20:47)
[2025-04-13 21:36] LABS: Glucose Point of Care 175 mg/dl (65-105)
[2025-04-14] VITALS (11 sets, daily range): BP systolic 118–143; BP diastolic 54–72; PULSE 65–87; RESP 16–20; TEMP 36.6–36.8; O2SAT 96–99
[2025-04-14] MEDS: MELATONIN 5 MG TABLET 10 MG PO (01:58)
[2025-04-14 04:56] LABS: Basophils Absolute Auto 0.1 K/mm3 (0.0-0.1); Eosinophils Absolute Auto 0.2 K/mm3 (0-0.3); Eosinophils Percent Auto 4.6 % (0-4.4); Hemoglobin 8.8 g/dL (14.0-18.0); Immature Granulocyte Absolute 0.02 K/mm3 (0.00-0.031); Immature Granulocyte Percent A 0.4 % (0-0.5); Lymphocytes Absolute Auto 1.45 K/mm3 (0.9-3.2); Lymphocytes Percent Auto 29.3 % (18.3-44.2); Mean Corpuscular HGB Conc 29.3 g/dl (32-36); Mean Corpuscular Hemoglobin 26.5 pg (26-34); Mean Corpuscular Volume 90.4 fl (80-100); Mean Platelet Volume 9.1 fl (7.4-10.4); Monocytes Absolute Auto 0.4 K/mm3 (0.1-0.6); Monocytes Percent Auto 7.1 % (2.6-8.5); Neutrophils Absolute Auto 2.9 K/mm3 (1.3-6.7); Neutrophils Percent Auto 57.6 % (45.5-73.1); Platelet Count Result 292 k/mm3 (150-375); Red Blood Count 3.32 M/mm3 (4.6-6.20); Red Cell Distribution Width 16.2 % (11.5-14.5)
[2025-04-14 05:43] LABS: Alanine Aminotransferase 17 U/L (6-50); Albumin Level 3.5 g/dL (3.5-5.1); Alkaline Phosphatase 89 U/L (38-126); Anion Gap 6 mmol/L (4-12); Aspartate Amino Transferase 25 U/L (17-59); Bilirubin,Total 0.4 mg/dL (0.2-1.3); Blood Urea Nitrogen 60 mg/dL (9-20); Calcium 8.1 mg/dL (8.4-10.2); Carbon Dioxide 28 mmol/L (22-30); Chloride 109 mmol/L (98-107); Estimated CRCL calculation 39 ml/min; Estimated Glomerular Filt Rate 29; Glucose 120 mg/dL (65-110); Phosphorus 2.8 mg/dL (2.5-4.5); Potassium 3.4 mmol/L (3.4-5.0); Sodium 143 mmol/L (137-145)
[2025-04-14] MEDS: LEVOTHYROXINE SODIUM 50 MCG TABLET PO (06:04)
[2025-04-14 06:33] LABS: Anisocytosis 1+; Hypochromasia 1+; Platelet Estimate Adequate (Adequate); Schistocytes None Seen
--- NOTE | 2025-04-14 07:33 | P.PNIM_ITS ---
Progress Note: A&P Assessment and Plan (1) Acute kidney injury superimposed on CKD: Code(s): N17.9 - Acute kidney failure, unspecified; N18.9 - Chronic kidney disease, unspecified Status: Acute Assessment and Plan: * Baseline: Cr 1.4-2.1. In ED: Cr 4.38 , GFR: 13, BUN: 114 * IV Fluids: NS 125ml/hr * Trend renal function * trend electrolytes, correct as needed * Add CK, urine sodium, protein/creatinine, urea * 04/11 - 04/14: Cr 4.38->3.57->2.69- 2.24 * Nephrology following * Hold diuretics * Continue gentle IVF hydration (2) Electrolyte abnormality: Code(s): E87.8 - Other disorders of electrolyte and fluid balance, not elsewhere classified Status: Acute Assessment and Plan: * In ED: K 3.1, Mg 3.6, Phosphorus 4.8 * Likely secondary to CKD * hold offending agents, Bumex, metolazone * Nephrology consulted, appreciate recommendations * 04/14: K 3.4, Mg 3.0 * Monitor daily AM Labs * Continue supplementing as needed * Continue gentle IVF for Mg (3) Prolonged Q-T interval on ECG: Code(s): R94.31 - Abnormal electrocardiogram [ECG] [EKG] Status: Acute Assessment and Plan: * EKG on 02/14/25: electronic pacemaker, QTc 480 * EKG on 04/11/25: electronic pacemaker, QTc 588 * Currently asymptomatic * Correct electrolyte abnormalities * Hold offending agents: amiodarone, metolazone * Evaluate TSH - WNL * Monitor tele * Cardiology consulted, appreciate recommendations (4) BPH (benign prostatic hyperplasia): Code(s): N40.0 - Benign prostatic hyperplasia without lower urinary tract symptoms Status: Acute Assessment and Plan: * Continue Tamsulosin * Required bladder scan + arroyo placement on 04/12 * Bladder scan showed approx. 950cc urine, although pt denied any complaints or pain to me or Nephrology * Arroyo maintained throughout hospitalization * Attempt void trial on pm of 04/14 (5) Atrial fibrillation/flutter: Status: Acute Assessment and Plan: * Continue Eliquis 5mg BID, metoprolol 25mg PO * Rate control * Hold amiodarone * Cardiology consult regarding further Amiodarone use (6) Hyperglycemia due to diabetes mellitus: Code(s): E11.65 - Type 2 diabetes mellitus with hyperglycemia Status: Acute Assessment and Plan: - hypoglycemia protocol - POC blood glucose ACHS - home medication: Lantus 25 units b.i.d., lispro 10 units t.i.d. WM - correct regimen ordered - high dose TIDWM and HS, based off BMI - A1C 6.0% (04/11) (7) HTN (hypertension): Qualifiers: Hypertension type: primary hypertension Qualified Code(s): I10 - Essential (primary) hypertension Code(s): I10 - Essential (primary) hypertension Status: Chronic Assessment and Plan: * 147/72 * Blood pressure remains well controlled. * Will continue current medications. (8) Peripheral vascular disease: Code(s): I73.9 - Peripheral vascular disease, unspecified Status: Acute Assessment and Plan: * Continue Clopidogrel 75mg daily * Wound care Plan Diet: Diabetic, GI Prophylaxis: Not currently indicated DVT Prophylaxis: SCDs, Eliquis Lines: Peripheral Subjective Date/time seen: 04/14/25 07:33 Interval history: Patient is a 70-year-old male with a past medical history of DM2, CKD, previous diabetic foot infections, pacemaker, atrial fibrillation, CHF, BPH, hypothyroidism who presents to the hospital after his primary care physician obtained blood work which showed worsening kidney function and hypokalemia. 04/14/2025 Patient sitting in bed at time of exam. Denies any chest pain, shortness of breath, n/v, or abdominal pain. K improved, 3.4 today, up from 3.2 yesterday. Cr also improved, down from 2.69 to 2.24 today. Overall the patient has no complaints or concerns at this time. Arroyo catheter is in place at time of exam, will attempt void trial today. Cons ulting cardiology regarding possible adjustment to medications as he normally takes Amiodarone for afib and Bumex for CHF. Pt continues to deny any symptoms and does not appear fluid overloaded on exam, but will need to keep close eye on fluid status. Review of Systems Review of Systems: All systems reviewed & are unremarkable except as noted in HPI and below Exam Narrative: Gen - obese well appearing male in no acute respiratory distress who is nontoxic-appearing lying semi recumbent in bed HEENT - normocephalic. Atraumatic. Pupils equal round and reactive. Extraocular motions intact. Sclera clear and anicteric. Nares patent. Moist mucous membranes. Tongue was midline. No facial asymmetry. Neck - neck was supple. Chest - lungs are clear to auscultation bilaterally. No wheezes or crackles. CV - heart was regular rate and rhythm. S1-S2. No murmurs gallops or rubs. Abd - abdomen was soft. Nontender. Nondistended. Positive bowel sounds. No organomegaly or masses. Ext - Right 3rd+4th toes have eschar, open wound on dorsal surface of R foot, no s/s of infxn. Severe PVD + neuropathy. 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 No s/s infxn. Dry/clean scabs present scattered on foot/leg. No pitting edema. Neuro - patient is alert and oriented x4. Strength is 5/5 in both upper and lower extremities. Cranial nerves 2-12 are intact. Speech is clear. Psych - normal mood and affect. Patient is pleasant and cooperative. Skin - warm and dry. No rashes noted. Objective Data Vital Signs Vital Signs: Vital Signs - 24 hr 04/13/25 08:37 04/13/25 08:38 04/13/25 08:38 Temperature Pulse Rate 70 70 Respiratory Rate Blood Pressure 152/73 H Pulse Oximetry Oxygen Delivery Room Air 04/13/25 08:38 04/13/25 12:00 04/13/25 14:00 Temperature Pulse Rate 80 63 65 Respiratory Rate 16 Blood Pressure 138/71 Pulse Oximetry 99 Oxygen Delivery 04/13/25 15:26 04/13/25 16:00 04/13/25 20:00 Temperature Pulse Rate 76 Respiratory Rate Blood Pressure Pulse Oximetry Oxygen Delivery Room Air Room Air 04/13/25 20:00 04/13/25 20:42 04/13/25 20:46 Temperature 97.8 F Pulse Rate 76 79 71 Respiratory Rate 20 Blood Pressure 133/70 Pulse Oximetry 100 Oxygen Delivery 04/13/25 21:43 04/14/25 00:00 04/14/25 04:00 Temperature Pulse Rate 70 67 Respiratory Rate Blood Pressure Pulse Oximetry 96 Oxygen Delivery Room Air 04/14/25 05:34 Temperature 98.3 F Pulse Rate 73 Respiratory Rate 16 Blood Pressure 143/72 H Pulse Oximetry 97 Oxygen Delivery Intake/Output Intake/Output: Intake & Output 04/11/25 04/12/25 04/13/25 04/14/25 23:59 23:59 23:59 23:59 Intake Total 2000.2 2520 400 Output Total 800 1300 2350 1650 Balance -800 701.2 170 -1250 Meds/Results Medications: Active Medications Generic Name Dose Route Start Last Admin Trade Name Freq PRN Reason Stop Dose Admin Acetaminophen 650 mg 04/12/25 14:03 Acetaminophen 325 Mg Tablet PO Q4H PRN Pain Rated 1-3 Albuterol 2 puff 04/12/25 14:27 Albuterol Sulfate (*Sp) Aerosol 1 Puff INHALATION Q4HRT PRN shortness of breath Amlodipine Besylate 5 mg 04/13/25 09:00 04/13/25 08:37 Amlodipine Besylate 5 Mg Tablet PO 5 mg DAILY TORY Administration Apixaban 5 mg 04/12/25 21:00 04/13/25 20:46 Apixaban 5 Mg Tablet PO 5 mg Q12HR [facility]ORY Administration Atorvastatin Calcium 20 mg 04/12/25 21:00 04/13/25 20:46 Atorvastatin 20 Mg Tablet PO 20 mg HS TORY Administration Calcium Carbonate 500 mg 04/12/25 14:03 Calcium Carbonate (Tums) 500 Mg (200 Mg Elemental) PO Q6H PRN Indigestion Clopidogrel Bisulfate 75 mg 04/13/25 09:00 04/13/25 08:37 Clopidogrel Bisulfate 75 Mg Tablet PO 75 mg DAILY TORY Administration Dextrose 12.5 gm 04/11/25 23:42 Dextrose 50% 25 Gm/50 Ml Syringe IV PUSH PRN PRN Hypoglycemia Protocol Dextrose 12.5 gm 04/12/25 14:16 Dextrose 50% 25 Gm/50 Ml Syringe IV PUSH PRN PRN Hypoglycemia Protocol Famotidine 20 mg 04/13/25 09:00 04/13/25 08:37 Famotidine 20 Mg Tablet PO 20 mg DAILY TORY Administration Glucagon 1 mg 04/11/25 23:42 Glucagon For Inj 1 Mg Vial IM PRN PRN Hypoglycemia Protocol Glucagon 1 mg 04/12/25 14:16 Glucagon For Inj 1 Mg Vial IM PRN PRN Hypoglycemia Protocol Glucose 15 gm 04/11/25 23:42 Glucose Oral Gel 15 Gm Of Glucse In 37.5 Gm Tube PO PRN PRN Hypoglycemia Protocol Glucose 15 gm 04/12/25 14:16 Glucose Oral Gel 15 Gm Of Glucse In 37.5 Gm Tube PO PRN PRN Hypoglycemia Protocol Sodium Chloride 1,000 mls @ 75 mls/hr 04/11/25 23:45 04/13/25 06:38 Normal Saline Iv IV CONT 75 mls/hr .[id number] TORY Administration Dextrose 1,000 mls @ 100 mls/hr 04/11/25 23:42 Dextrose 5% 1,000 Ml IVPB PRN PRN Hypoglycemia Protocol Dextrose 1,000 mls @ 100 mls/hr 04/12/25 14:16 Dextrose 5% 1,000 Ml IVPB PRN PRN Hypoglycemia Protocol Insulin Aspart 4 - 8 units 04/12/25 17:00 04/13/25 17:04 Insulin Aspart (*Bkc) 100 Units/Ml SUB-Q Not Given TIDWM [facility] Protocol Insulin Aspart 2 - 4 units 04/12/25 21:00 04/13/25 20:46 Insulin Aspart (*Bkc) 100 Units/Ml SUB-Q Not Given HS [facility] Protocol Insulin Glargine 26 units 04/12/25 21:00 04/13/25 20:47 Insulin Glargine (*Bkc) 100 Units/Ml 0.2 units/kg (26 units) 26 units SUB-Q Administration HS [facility] Levothyroxine Sodium 50 mcg 04/13/25 06:30 04/14/25 06:04 Levothyroxine Sodium 50 Mcg Tablet PO 50 mcg DAILY@0630 TORY Administration Melatonin 10 mg 04/13/25 21:27 04/14/25 01:58 Melatonin 5 Mg Tablet PO 10 mg HS PRN Administration Insomnia Metoprolol Tartrate 25 mg 04/12/25 21:00 04/13/25 20:46 Metoprolol Tartrate 25 Mg Tablet PO 25 mg Q12HR [facility] Administration Tamsulosin HCl 0.4 mg 04/13/25 09:00 04/13/25 08:38 Tamsulosin Hcl 0.4 Mg Capsule PO 0.4 mg QAM [facility] Administration Tramadol HCl 50 mg 04/12/25 14:13 Tramadol Hcl (*Crx) 50 Mg Tablet PO Q8H PRN Pain Rated 4-6 Radiology Results: ITS Impressions Abdomen/Pelvis CT 04/12/25 05:20 Impression: No significant abnormality of the system identified. Suspected fecal impaction/constipation, with probable minimal stercoral proctitis. Gallbladder sludge and possibly small layering stones, versus vicarious excretion of contrast. Small fat-containing umbilical hernia. Renal Ultrasound 04/12/25 10:01 Impression: 1: Unremarkable renal ultrasound. No stones, masses or hydronephrosis. Chest X-Ray 04/12/25 16:59 IMPRESSION: No focal infiltrate or effusion. Labs Labs: Laboratory Results - last 24 hr 04/13/25 04/13/25 04/13/25 08:19 12:00 16:52 WBC RBC Hgb Hct MCV MCH MCHC RDW Plt Count MPV Immature Gran % (Auto) Neut % (Auto) Lymph % (Auto) Weld % (Auto) Eos % (Auto) Baso % (Auto) Lymph # (Auto) Weld # (Auto) Eos # (Auto) Baso # (Auto) Abs Immat Gran (auto) Absolute Neuts (auto) Absolute Nucleated RBC Band Neutrophils % Nucleated RBC % Platelet Estimate Hypochromasia Anisocytosis Schistocytes Sodium Potassium Chloride Carbon Dioxide Anion Gap BUN Creatinine Estim Creat Clear Calc Estimated GFR Glucose POC Capillary Glucose 108 H 154 H 165 H Calcium Phosphorus Magnesium Total Bilirubin AST ALT Alkaline Phosphatase Total Protein Albumin 04/13/25 04/14/25 20:41 04:35 WBC 5.0 RBC 3.32 L Hgb 8.8 L Hct 30.0 L MCV 90.4 MCH 26.5 MCHC 29.3 L RDW 16.2 H Plt Count 292 MPV 9.1 Immature Gran % (Auto) 0.4 Neut % (Auto) 57.6 Lymph % (Auto) 29.3 Weld % (Auto) 7.1 Eos % (Auto) 4.6 H Baso % (Auto) 1.0 Lymph # (Auto) 1.45 Weld # (Auto) 0.4 Eos # (Auto) 0.2 Baso # (Auto) 0.1 Abs Immat Gran (auto) 0.02 Absolute Neuts (auto) 2.9 Absolute Nucleated RBC 0.000 Band Neutrophils % Not Reportable Nucleated RBC % 0.0 Platelet Estimate Adequate Hypochromasia 1+ Anisocytosis 1+ Schistocytes None seen Sodium 143 Potassium 3.4 Chloride 109 H Carbon Dioxide 28 Anion Gap 6 BUN 60 H D Creatinine 2.24 H Estim Creat Clear Calc 39 Estimated GFR 29 L Glucose 120 H POC Capillary Glucose 175 H Calcium 8.1 L Phosphorus 2.8 Magnesium 3.0 H Total Bilirubin 0.4 AST 25 ALT 17 Alkaline Phosphatase 89 Total Protein 7.0 Albumin 3.5 Quality VTE Prophylaxis VTE prophylaxis: mechanical ordered and pharmacologic ordered
[2025-04-14 08:04] LABS: Glucose Point of Care 107 mg/dl (65-105)
[2025-04-14] MEDS: APIXABAN 5 MG TABLET PO ×2 (08:38→21:13)
[2025-04-14] MEDS: amLODIPine BESYLATE 5 MG TABLET PO (08:38)
[2025-04-14] MEDS: CLOPIDOGREL BISULFATE 75 MG TABLET PO (08:38)
[2025-04-14] MEDS: TAMSULOSIN HCL 0.4 MG CAPSULE PO (08:38)
[2025-04-14] MEDS: FAMOTIDINE 20 MG TABLET PO (08:38)
[2025-04-14] MEDS: METOPROLOL TARTRATE 25 MG TABLET PO ×2 (08:38→21:13)
[2025-04-14] MEDS: SODIUM CHLORIDE 0.9% IV 1,000 ML 75 ML IV CONT (08:39)
--- NOTE | 2025-04-14 11:01 | P.PNNP_ITS ---
Progress Note: A&P Assessment and Plan (1) Acute kidney injury: Code(s): N17.9 - Acute kidney failure, unspecified Status: Acute Assessment and Plan: * slow and steady improvement noted * as noted by outpatient labs and confirmed by ER testing * some improvement noted since admission * possible etiologies: * prerenal factors * outpatient diuretic use (bumex + metolazone) * urinary retention (as noted by bladder scan on 04/14 afternoon) * infection(?) * other (?) * evaluation to date noted: * CT imaging & renal ultrasound without urinary obstruction * urine eosinophils negative * urine electrolytes non-prerenal * UA w/o evidence of infection * moderate proteinuria * CPK low/normal * diuretics on hold * arroyo catheter in place due to urinary retention * voiding trial later today after arroyo catheter removal * gentle IVF - wean off as tolerated * follow trend of repeat labs and UOP (2) Stage 3b chronic kidney disease: Code(s): N18.32 - Chronic kidney disease, stage 3b Status: Chronic Assessment and Plan: * last creatinine running ~ 2.12 - 2.14mg/dl * creatinine 2.12mg/dl on 01/22/25 * on discharge/transfer from [facility] in January 2025, creatinine was 2.14mg/dl * was running ~ 1.4mg/dl on discharge in June 2023 * this argues he fluctuates between CKD stage 3A and stage 3B * never able to get records from [facility] from last hospitalization in February 2025 (despite multiple attempts by nursing staff) * presumably due to his hypertension, diabetes, severe vascular disease, CHF, and age-related change * component of urinary retention playing a role as well (as noted by bladder scan) (3) Hypokalemia: Code(s): E87.6 - Hypokalemia Status: Acute Assessment and Plan: * as noted on admission * due to outpatient diuretic therapy (and no K+ supplements) * cautious replacement given #1 * follow trend of potassium levels (4) Atrial fibrillation/flutter: Status: Acute Assessment and Plan: * rate control strategy * holding amiodarone due to findings of prolonged QT interval * remains on anticoagulation (Eliquis) (5) Peripheral vascular disease: Code(s): I73.9 - Peripheral vascular disease, unspecified Status: Acute Assessment and Plan: * complicated by chronic LE/foot wounds * wound care following * therapy as noted * on plavix and anticoagulation (6) Anemia: Code(s): D64.9 - Anemia, unspecified Status: Chronic Assessment and Plan: * due to GLORIA, CKD, and recent acute illnesses * consider checking anemia studies if hemoglobin worsens * follow trend of H/H (7) HTN (hypertension): Qualifiers: Hypertension type: primary hypertension Qualified Code(s): I10 - Essential (primary) hypertension Code(s): I10 - Essential (primary) hypertension Status: Chronic Assessment and Plan: * reasonable control at this time * follow trend of hemodynamics (8) Diabetes mellitus with chronic kidney disease: Code(s): E11.22 - Type 2 diabetes mellitus with diabetic chronic kidney disease Status: Chronic Assessment and Plan: * follow accu-cheks * glycemic control per hospitalist Will continue to follow. L Subjective Date/time seen: 04/14/25 11:01 Interval history: Follow-up for acute kidney injury/acute renal failure on chronic kidney disease. No apparent distress noted at the time of my visit; feels reasonably well without any acute issues/events overnight or earlier this morning; renal function/creatinine continues to improve since admission with interventions/therapy to date. Exam 2 Narrative: General: elderly but WD/WN male in NAD Heart: normal S1 and S2; no rub Lungs: clear anteriorly Abdomen: obese but soft, nontender, nondistended, positive bowel sounds Extremities: no cyanosis or clubbing; no edema Skin: right 3rd/4th toe eschar; right foot wound present; left 3rd/4th distal toe amputations; scattered scabs on LEs Objective Data Vital Signs Vital Signs: Vital Signs Temp Pulse Resp BP Pulse Ox O2 Del Method 04/14/25 11:00 65 04/14/25 08:38 Room Air 04/14/25 08:00 74 04/14/25 05:34 98.3 F 73 16 143/72 H 97 04/14/25 04:00 67 04/14/25 00:00 70 04/13/25 21:43 96 Room Air 04/13/25 20:46 71 04/13/25 20:42 97.8 F 79 20 133/70 100 04/13/25 20:00 76 04/13/25 20:00 Room Air Intake/Output Intake/Output: Intake & Output 05/04/12/25 04/13/25 04/14/25 23:59 23:59 23:59 23:59 Intake Total 2000.2 3520 1000 Output Total 800 1300 2350 2650 Balance -800 701.2 1170 -1650 Meds/Results Medications: Active Medications Generic Name Dose Route Start Last Admin Trade Name Freq PRN Reason Stop Dose Admin Acetaminophen 650 mg 04/12/25 14:03 Acetaminophen 325 Mg Tablet PO Q4H PRN Pain Rated 1-3 Albuterol 2 puff 04/12/25 14:27 Albuterol Sulfate (*Sp) Aerosol 1 Puff INHALATION Q4HRT PRN shortness of breath Amlodipine Besylate 5 mg 04/13/25 09:00 04/14/25 08:38 Amlodipine Besylate 5 Mg Tablet PO 5 mg DAILY TORY Administration Apixaban 5 mg 04/12/25 21:00 04/14/25 08:38 Apixaban 5 Mg Tablet PO 5 mg Q12HR T[facility] Administration Atorvastatin Calcium 20 mg 04/12/25 21:00 04/13/25 20:46 Atorvastatin 20 Mg Tablet PO 20 mg HS [facility]ORY Administration Calcium Carbonate 500 mg 04/12/25 14:03 Calcium Carbonate (Tums) 500 Mg (200 Mg Elemental) PO Q6H PRN Indigestion Clopidogrel Bisulfate 75 mg 04/13/25 09:00 04/14/25 08:38 Clopidogrel Bisulfate 75 Mg Tablet PO 75 mg DAILY TORY Administration Dextrose 12.5 gm 04/11/25 23:42 Dextrose 50% 25 Gm/50 Ml Syringe IV PUSH PRN PRN Hypoglycemia Protocol Dextrose 12.5 gm 04/12/25 14:16 Dextrose 50% 25 Gm/50 Ml Syringe IV PUSH PRN PRN Hypoglycemia Protocol Famotidine 20 mg 04/13/25 09:00 04/14/25 08:38 Famotidine 20 Mg Tablet PO 20 mg DAILY TORY Administration Glucagon 1 mg 04/11/25 23:42 Glucagon For Inj 1 Mg Vial IM PRN PRN Hypoglycemia Protocol Glucagon 1 mg 04/12/25 14:16 Glucagon For Inj 1 Mg Vial IM PRN PRN Hypoglycemia Protocol Glucose 15 gm 04/11/25 23:42 Glucose Oral Gel 15 Gm Of Glucse In 37.5 Gm Tube PO PRN PRN Hypoglycemia Protocol Glucose 15 gm 04/12/25 14:16 Glucose Oral Gel 15 Gm Of Glucse In 37.5 Gm Tube PO PRN PRN Hypoglycemia Protocol Sodium Chloride 1,000 mls @ 75 mls/hr 04/11/25 23:45 04/14/25 08:39 Normal Saline Iv IV CONT 75 mls/hr .[id number] [facility] Administration Dextrose 1,000 mls @ 100 mls/hr 04/11/25 23:42 Dextrose 5% 1,000 Ml IVPB PRN PRN Hypoglycemia Protocol Dextrose 1,000 mls @ 100 mls/hr 04/12/25 14:16 Dextrose 5% 1,000 Ml IVPB PRN PRN Hypoglycemia Protocol Insulin Aspart 4 - 8 units 04/12/25 17:00 04/14/25 16:51 Insulin Aspart (*Bkc) 100 Units/Ml SUB-Q Not Given TIDWM [facility] Protocol Insulin Aspart 2 - 4 units 04/12/25 21:00 04/13/25 20:46 Insulin Aspart (*Bkc) 100 Units/Ml SUB-Q Not Given HS [facility] Protocol Insulin Glargine 26 units 04/12/25 21:00 04/13/25 20:47 Insulin Glargine (*Bkc) 100 Units/Ml 0.2 units/kg (26 units) 26 units SUB-Q Administration HS [facility] Levothyroxine Sodium 50 mcg 04/13/25 06:30 04/14/25 06:04 Levothyroxine Sodium 50 Mcg Tablet PO 50 mcg DAILY@0630 TORY Administration Melatonin 10 mg 04/13/25 21:27 04/14/25 01:58 Melatonin 5 Mg Tablet PO 10 mg HS PRN Administration Insomnia Metoprolol Tartrate 25 mg 04/12/25 21:00 04/14/25 08:38 Metoprolol Tartrate 25 Mg Tablet PO 25 mg Q12HR [facility] Administration Tamsulosin HCl 0.4 mg 04/13/25 09:00 04/14/25 08:38 Tamsulosin Hcl 0.4 Mg Capsule PO 0.4 mg QAM [facility]ORY Administration Tramadol HCl 50 mg 04/12/25 14:13 Tramadol Hcl (*Crx) 50 Mg Tablet PO Q8H PRN Pain Rated 4-6 Radiology Results: ITS Impressions Abdomen/Pelvis CT 04/12/25 05:20 Impression: No significant abnormality of the system identified. Suspected fecal impaction/constipation, with probable minimal stercoral proctitis. Gallbladder sludge and possibly small layering stones, versus vicarious excretion of contrast. Small fat-containing umbilical hernia. Renal Ultrasound 04/12/25 10:01 Impression: 1: Unremarkable renal ultrasound. No stones, masses or hydronephrosis. Chest X-Ray 04/12/25 16:59 IMPRESSION: No focal infiltrate or effusion. Labs Labs: Laboratory Tests 04/14/25 04:35 04/14/25 04:35 Calcium 8.1 L Phosphorus 2.8 Magnesium 3.0 H Total Bilirubin 0.4 AST 25 ALT 17 Alkaline Phosphatase 89 Total Protein 7.0 Albumin 3.5
[2025-04-14 11:57] LABS: Glucose Point of Care 156 mg/dl (65-105)
[2025-04-14 16:45] LABS: Glucose Point of Care 151 mg/dl (65-105)
[2025-04-14] MEDS: SODIUM CHLORIDE 0.9% IV 1,000 ML 30 ML IV CONT (17:18)
[2025-04-14 21:10] LABS: Glucose Point of Care 147 mg/dl (65-105)
[2025-04-14] MEDS: INSULIN GLARGINE (*BKC) 100 UNITS/ML 26 UNITS SUB-Q (21:12)
[2025-04-14] MEDS: ATORVASTATIN 20 MG TABLET PO (21:13)
--- NOTE | 2025-04-14 22:52 | PC.NURSE ---
Unable to initiate IV access; call to hospitality house supervisor to assist and initiation still unsuccessful. RN to contact vascular access for US guided placement.
[2025-04-15] VITALS (11 sets, daily range): BP systolic 113–137; BP diastolic 61–67; PULSE 63–80; RESP 18–20; TEMP 36.5–36.7; O2SAT 98–100
[2025-04-15 05:20] LABS: Basophils Absolute Auto 0.1 K/mm3 (0.0-0.1); Basophils Percent Auto 1.2 % (0.2-1.2); Eosinophils Absolute Auto 0.4 K/mm3 (0-0.3); Eosinophils Percent Auto 6.1 % (0-4.4); Hemoglobin 9.3 g/dL (14.0-18.0); Immature Granulocyte Absolute 0.03 K/mm3 (0.00-0.031); Immature Granulocyte Percent A 0.5 % (0-0.5); Lymphocytes Absolute Auto 1.54 K/mm3 (0.9-3.2); Lymphocytes Percent Auto 25.6 % (18.3-44.2); Mean Corpuscular HGB Conc 29.1 g/dl (32-36); Mean Corpuscular Hemoglobin 26.4 pg (26-34); Mean Corpuscular Volume 90.9 fl (80-100); Mean Platelet Volume 9.4 fl (7.4-10.4); Monocytes Absolute Auto 0.4 K/mm3 (0.1-0.6); Monocytes Percent Auto 6.6 % (2.6-8.5); Neutrophils Absolute Auto 3.6 K/mm3 (1.3-6.7); Platelet Count Result 292 k/mm3 (150-375); Red Blood Count 3.52 M/mm3 (4.6-6.20); Red Cell Distribution Width 16.4 % (11.5-14.5)
[2025-04-15 05:35] LABS: Alanine Aminotransferase 17 U/L (6-50); Albumin Level 3.7 g/dL (3.5-5.1); Alkaline Phosphatase 95 U/L (38-126); Anion Gap 9 mmol/L (4-12); Aspartate Amino Transferase 24 U/L (17-59); Bilirubin,Total 0.4 mg/dL (0.2-1.3); Blood Urea Nitrogen 45 mg/dL (9-20); Calcium 8.4 mg/dL (8.4-10.2); Carbon Dioxide 24 mmol/L (22-30); Chloride 110 mmol/L (98-107); Estimated CRCL calculation 44 ml/min; Estimated Glomerular Filt Rate 34; Glucose 116 mg/dL (65-110); Magnesium 2.8 mg/dL (1.6-2.3); Phosphorus 2.6 mg/dL (2.5-4.5); Potassium 3.6 mmol/L (3.4-5.0); Sodium 143 mmol/L (137-145)
[2025-04-15 05:43] LABS: Band Neutrophils Percent 0 % (0-6)
[2025-04-15 05:44] LABS: Anisocytosis 1+; Hypochromasia 1+; Platelet Estimate Adequate (Adequate); Schistocytes None Seen
[2025-04-15] MEDS: LEVOTHYROXINE SODIUM 50 MCG TABLET PO (05:49)
[2025-04-15] MEDS: traMADol HCL (*CRX) 50 MG TABLET PO (05:52)
[2025-04-15 07:51] LABS: Glucose Point of Care 121 mg/dl (65-105)
[2025-04-15] MEDS: CLOPIDOGREL BISULFATE 75 MG TABLET PO (08:18)
[2025-04-15] MEDS: TAMSULOSIN HCL 0.4 MG CAPSULE PO (08:18)
[2025-04-15] MEDS: APIXABAN 5 MG TABLET PO ×2 (08:18→20:25)
[2025-04-15] MEDS: METOPROLOL TARTRATE 25 MG TABLET PO ×2 (08:18→20:25)
[2025-04-15] MEDS: FAMOTIDINE 20 MG TABLET PO (08:18)
[2025-04-15] MEDS: amLODIPine BESYLATE 5 MG TABLET PO (08:18)
--- NOTE | 2025-04-15 11:40 | P.PNNP_ITS ---
Progress Note: A&P Assessment and Plan (1) Acute kidney injury: Code(s): N17.9 - Acute kidney failure, unspecified Status: Acute Assessment and Plan: * slow and steady improvement noted (if not back to baseline) * as noted by outpatient labs and confirmed by ER testing * some improvement noted since admission * possible etiologies: * prerenal factors * outpatient diuretic use (bumex + metolazone) * urinary retention (as noted by bladder scan on 04/14 afternoon) * infection(?) * other (?) * evaluation to date noted: * CT imaging & renal ultrasound without urinary obstruction * urine eosinophils negative * urine electrolytes non-prerenal * UA w/o evidence of infection * moderate proteinuria * CPK low/normal * diuretics on hold * s/p arroyo catheter in place due to urinary retention * doing well with voiding trial s/p arroyo catheter removal * weaned off as tolerated * follow trend of repeat labs and UOP (2) Stage 3b chronic kidney disease: Code(s): N18.32 - Chronic kidney disease, stage 3b Status: Chronic Assessment and Plan: * last creatinine running ~ 2.12 - 2.14mg/dl * creatinine 2.12mg/dl on 01/22/25 * on discharge/transfer from [facility] in January 2025, creatinine was 2.14mg/dl * was running ~ 1.4mg/dl on discharge in June 2023 * this argues he fluctuates between CKD stage 3A and stage 3B * never able to get records from [facility] from last hospitalization in February 2025 (despite multiple attempts by nursing staff) * presumably due to his hypertension, diabetes, severe vascular disease, CHF, and age-related change * component of urinary retention playing a role as well (as noted by bladder scan) (3) Hypokalemia: Code(s): E87.6 - Hypokalemia Status: Acute Assessment and Plan: * as noted on admission * due to outpatient diuretic therapy (and no K+ supplements) * cautious replacement given #1 * follow trend of potassium levels (4) Atrial fibrillation/flutter: Status: Acute Assessment and Plan: * rate control strategy * holding amiodarone due to findings of prolonged QT interval * remains on anticoagulation (Eliquis) (5) Peripheral vascular disease: Code(s): I73.9 - Peripheral vascular disease, unspecified Status: Acute Assessment and Plan: * complicated by chronic LE/foot wounds * wound care following * therapy as noted * on plavix and anticoagulation (6) Anemia: Code(s): D64.9 - Anemia, unspecified Status: Chronic Assessment and Plan: * due to GLORIA, CKD, and recent acute illnesses * consider checking anemia studies if hemoglobin worsens * follow trend of H/H (7) HTN (hypertension): Qualifiers: Hypertension type: primary hypertension Qualified Code(s): I10 - Essential (primary) hypertension Code(s): I10 - Essential (primary) hypertension Status: Chronic Assessment and Plan: * reasonable control at this time * follow trend of hemodynamics (8) Diabetes mellitus with chronic kidney disease: Code(s): E11.22 - Type 2 diabetes mellitus with diabetic chronic kidney disease Status: Chronic Assessment and Plan: * follow accu-cheks * glycemic control per hospitalist Not opposed to discharge from renal perspective if otherwise medically stable. Will continue to follow. L Subjective Date/time seen: 04/15/25 11:40 Interval history: Follow-up for acute kidney injury/acute renal failure on chronic kidney disease. Continues to make slow and steady improvement with regard to renal function/creatinine -- appears back to baseline if not better; s/p arroyo catheter removal yesterday and appears to be voiding well on his own; no apparent distress noted at the time of my visit. Exam 2 Narrative: General: elderly but WD/WN male in NAD Heart: normal S1 and S2; no rub Lungs: clear anteriorly Abdomen: obese but soft, nontender, nondistended, positive bowel sounds Extremities: no cyanosis or clubbing; no edema Skin: right 3rd/4th toe eschar; right foot wound present; left 3rd/4th distal toe amputations; scattered scabs on LEs Objective Data Vital Signs Vital Signs: Vital Signs Temp Pulse Resp BP Pulse Ox O2 Del Method 04/15/25 11:30 71 04/15/25 08:18 Room Air 04/15/25 08:18 73 04/15/25 08:00 80 04/15/25 04:56 97.7 F 69 20 130/65 100 04/15/25 04:00 72 04/15/25 00:00 67 04/14/25 21:13 65 04/14/25 20:46 96 Room Air 04/14/25 20:28 97.8 F 87 20 130/66 96 04/14/25 20:00 78 04/14/25 20:00 Room Air Intake/Output Intake/Output: Intake & Output 04/12/25 04/13/25 04/14/25 04/15/25 23:59 23:59 23:59 23:59 Intake Total 2001.2 3520 2056.3 720 Output Total 1300 2350 2900 750 Balance 701.2 1170 -843.7 -30 Meds/Results Medications: Active Medications Generic Name Dose Route Start Last Admin Trade Name Freq PRN Reason Stop Dose Admin Acetaminophen 650 mg 04/12/25 14:03 Acetaminophen 325 Mg Tablet PO Q4H PRN Pain Rated 1-3 Albuterol 2 puff 04/12/25 14:27 Albuterol Sulfate (*Sp) Aerosol 1 Puff INHALATION Q4HRT PRN shortness of breath Amlodipine Besylate 5 mg 04/13/25 09:00 04/15/25 08:18 Amlodipine Besylate 5 Mg Tablet PO 5 mg DAILY TORY Administration Apixaban 5 mg 04/12/25 21:00 04/15/25 08:18 Apixaban 5 Mg Tablet PO 5 mg Q12HR TORY Administration Atorvastatin Calcium 20 mg 04/12/25 21:00 04/14/25 21:13 Atorvastatin 20 Mg Tablet PO 20 mg HS TORY Administration Calcium Carbonate 500 mg 04/12/25 14:03 Calcium Carbonate (Tums) 500 Mg (200 Mg Elemental) PO Q6H PRN Indigestion Clopidogrel Bisulfate 75 mg 04/13/25 09:00 04/15/25 08:18 Clopidogrel Bisulfate 75 Mg Tablet PO 75 mg DAILY TORY Administration Dextrose 12.5 gm 04/11/25 23:42 Dextrose 50% 25 Gm/50 Ml Syringe IV PUSH PRN PRN Hypoglycemia Protocol Dextrose 12.5 gm 04/12/25 14:16 Dextrose 50% 25 Gm/50 Ml Syringe IV PUSH PRN PRN Hypoglycemia Protocol Famotidine 20 mg 04/13/25 09:00 04/15/25 08:18 Famotidine 20 Mg Tablet PO 20 mg DAILY TORY Administration Glucagon 1 mg 04/11/25 23:42 Glucagon For Inj 1 Mg Vial IM PRN PRN Hypoglycemia Protocol Glucagon 1 mg 04/12/25 14:16 Glucagon For Inj 1 Mg Vial IM PRN PRN Hypoglycemia Protocol Glucose 15 gm 04/11/25 23:42 Glucose Oral Gel 15 Gm Of Glucse In 37.5 Gm Tube PO PRN PRN Hypoglycemia Protocol Glucose 15 gm 04/12/25 14:16 Glucose Oral Gel 15 Gm Of Glucse In 37.5 Gm Tube PO PRN PRN Hypoglycemia Protocol Dextrose 1,000 mls @ 100 mls/hr 04/11/25 23:42 Dextrose 5% 1,000 Ml IVPB PRN PRN Hypoglycemia Protocol Dextrose 1,000 mls @ 100 mls/hr 04/12/25 14:16 Dextrose 5% 1,000 Ml IVPB PRN PRN Hypoglycemia Protocol Insulin Aspart 4 - 8 units 04/12/25 17:00 04/15/25 11:53 Insulin Aspart (*Bkc) 100 Units/Ml SUB-Q Not Given TIDWM TORY Protocol Insulin Aspart 2 - 4 units 04/12/25 21:00 04/14/25 21:08 Insulin Aspart (*Bkc) 100 Units/Ml SUB-Q Not Given HS [facility] Protocol Insulin Glargine 26 units 04/12/25 21:00 04/14/25 21:12 Insulin Glargine (*Bkc) 100 Units/Ml 0.2 units/kg (26 units) 26 units SUB-Q Administration HS TORY Levothyroxine Sodium 50 mcg 04/13/25 06:30 04/15/25 05:49 Levothyroxine Sodium 50 Mcg Tablet PO 50 mcg DAILY@0630 TORY Administration Melatonin 10 mg 04/13/25 21:27 04/14/25 01:58 Melatonin 5 Mg Tablet PO 10 mg HS PRN Administration Insomnia Metoprolol Tartrate 25 mg 04/12/25 21:00 04/15/25 08:18 Metoprolol Tartrate 25 Mg Tablet PO 25 mg Q12HR TORY Administration Tamsulosin HCl 0.4 mg 04/13/25 09:00 04/15/25 08:18 Tamsulosin Hcl 0.4 Mg Capsule PO 0.4 mg QAM TORY Administration Tramadol HCl 50 mg 04/12/25 14:13 04/15/25 05:52 Tramadol Hcl (*Crx) 50 Mg Tablet PO 50 mg Q8H PRN Administration Pain Rated 4-6 Radiology Results: ITS Impressions Abdomen/Pelvis CT 04/12/25 05:20 Impression: No significant abnormality of the system identified. Suspected fecal impaction/constipation, with probable minimal stercoral proctitis. Gallbladder sludge and possibly small layering stones, versus vicarious excretion of contrast. Small fat-containing umbilical hernia. Renal Ultrasound 04/12/25 10:01 Impression: 1: Unremarkable renal ultrasound. No stones, masses or hydronephrosis. Chest X-Ray 04/12/25 16:59 IMPRESSION: No focal infiltrate or effusion. Labs Labs: Laboratory Tests 04/15/25 05:12 04/15/25 05:12 Calcium 8.4 Phosphorus 2.6 Magnesium 2.8 H Total Bilirubin 0.4 AST 24 ALT 17 Alkaline Phosphatase 95 Total Protein 7.0 Albumin 3.7
[2025-04-15 11:46] LABS: Glucose Point of Care 143 mg/dl (65-105)
--- NOTE | 2025-04-15 12:58 | P.PNIM_ITS ---
Progress Note: A&P Assessment and Plan (1) Acute kidney injury superimposed on CKD: Code(s): N17.9 - Acute kidney failure, unspecified; N18.9 - Chronic kidney disease, unspecified Status: Acute Assessment and Plan: * Baseline: Cr 1.4-2.1. In ED: Cr 4.38 , GFR: 13, BUN: 114 * IV Fluids: NS 125ml/hr * Trend renal function * trend electrolytes, correct as needed * Add CK, urine sodium, protein/creatinine, urea * 04/11 - 04/15: Cr 4.38->3.57->2.69- 2.24 -> 1.97 * Nephrology following * Hold diuretics * Continue gentle IVF hydration (2) Electrolyte abnormality: Code(s): E87.8 - Other disorders of electrolyte and fluid balance, not elsewhere classified Status: Acute Assessment and Plan: * In ED: K 3.1, Mg 3.6, Phosphorus 4.8 * Likely secondary to CKD * hold offending agents, Bumex, metolazone * Nephrology consulted, appreciate recommendations * 04/15: K 3.4, Mg 2.8 * Monitor daily AM Labs * Continue supplementing as needed * Continue gentle IVF for Mg (3) Prolonged Q-T interval on ECG: Code(s): R94.31 - Abnormal electrocardiogram [ECG] [EKG] Status: Acute Assessment and Plan: * EKG on 02/14/25: electronic pacemaker, QTc 480 * EKG on 04/11/25: electronic pacemaker, QTc 588 * Currently asymptomatic * Correct electrolyte abnormalities * Hold offending agents: amiodarone, metolazone * Evaluate TSH - WNL * Monitor tele * Cardiology consulted, appreciate recommendations (4) BPH (benign prostatic hyperplasia): Code(s): N40.0 - Benign prostatic hyperplasia without lower urinary tract symptoms Status: Acute Assessment and Plan: * Continue Tamsulosin * Required bladder scan + arroyo placement on 04/12 * Bladder scan showed approx. 950cc urine, although pt denied any complaints or pain to me or Nephrology * Arroyo maintained throughout hospitalization * Attempt void trial on pm of 04/14 * Void trial successful, good UO (5) Atrial fibrillation/flutter: Status: Acute Assessment and Plan: * Continue Eliquis 5mg BID, metoprolol 25mg PO * Rate control * Hold amiodarone * Cardiology consult regarding further Amiodarone use (6) Hyperglycemia due to diabetes mellitus: Code(s): E11.65 - Type 2 diabetes mellitus with hyperglycemia Status: Acute Assessment and Plan: - hypoglycemia protocol - POC blood glucose ACHS - home medication: Lantus 25 units b.i.d., lispro 10 units t.i.d. WM - correct regimen ordered - high dose TIDWM and HS, based off BMI - A1C 6.0% (04/11) (7) HTN (hypertension): Qualifiers: Hypertension type: primary hypertension Qualified Code(s): I10 - Essential (primary) hypertension Code(s): I10 - Essential (primary) hypertension Status: Chronic Assessment and Plan: * 147/72 * Blood pressure remains well controlled. * Will continue current medications. (8) Peripheral vascular disease: Code(s): I73.9 - Peripheral vascular disease, unspecified Status: Acute Assessment and Plan: * Continue Clopidogrel 75mg daily * Wound care Plan Diet: Diabetic, GI Prophylaxis: Not currently indicated DVT Prophylaxis: SCDs, Eliquis Lines: Peripheral Subjective Date/time seen: 04/15/25 12:58 Interval history: Patient is a 70-year-old male with a past medical history of DM2, CKD, previous diabetic foot infections, pacemaker, atrial fibrillation, CHF, BPH, hypothyroidism who presents to the hospital after his primary care physician obtained blood work which showed worsening kidney function and hypokalemia. 04/15/2025 Pt sitting comfortably in bed. Denies any chest pain, SOB, n/v, abdominal pain at this time. Kidney function continues to improve. Cr down from 2.24 to 1.97 today. Cardio consult pending for medication adjustments. Review of Systems Review of Systems: All systems reviewed & are unremarkable except as noted in HPI and below Exam Narrative: Gen - obese well appearing male in no acute respiratory distress who is nontoxic-appearing lying semi recumbent in bed HEENT - normocephalic. Atraumatic. Pupils equal round and reactive. Extraocu lar motions intact. Sclera clear and anicteric. Nares patent. Moist mucous membranes. Tongue was midline. No facial asymmetry. Neck - neck was supple. Chest - lungs are clear to auscultation bilaterally. No wheezes or crackles. CV - heart was regular rate and rhythm. S1-S2. No murmurs gallops or rubs. Abd - abdomen was soft. Nontender. Nondistended. Positive bowel sounds. No organomegaly or masses. Ext - Right 3rd+4th toes have eschar, open wound on dorsal surface of R foot, no s/s of infxn. Severe PVD + neuropathy. 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 No s/s infxn. Dry/clean scabs present scattered on foot/leg. No pitting edema. Neuro - patient is alert and oriented x4. Strength is 5/5 in both upper and lower extremities. Cranial nerves 2-12 are intact. Speech is clear. Psych - normal mood and affect. Patient is pleasant and cooperative. Skin - warm and dry. No rashes noted. Objective Data Vital Signs Vital Signs: Vital Signs - 24 hr 04/14/25 13:37 04/14/25 16:00 04/14/25 20:00 Temperature Pulse Rate 76 67 Respiratory Rate 20 Blood Pressure 118/54 L Pulse Oximetry 99 Oxygen Delivery Room Air 04/14/25 20:00 04/14/25 20:28 04/14/25 20:46 Temperature 97.8 F Pulse Rate 78 87 Respiratory Rate 20 Blood Pressure 130/66 Pulse Oximetry 96 96 Oxygen Delivery Room Air 04/14/25 21:13 04/15/25 00:00 04/15/25 04:00 Temperature Pulse Rate 65 67 72 Respiratory Rate Blood Pressure Pulse Oximetry Oxygen Delivery 04/15/25 04:56 04/15/25 08:00 04/15/25 08:18 Temperature 97.7 F Pulse Rate 69 80 73 Respiratory Rate 20 Blood Pressure 130/65 Pulse Oximetry 100 Oxygen Delivery 04/15/25 08:18 04/15/25 12:00 Temperature Pulse Rate 71 Respiratory Rate Blood Pressure Pulse Oximetry Oxygen Delivery Room Air Intake/Output Intake/Output: Intake & Output 04/12/25 04/13/25 04/14/25 04/15/25 23:59 23:59 23:59 23:59 Intake Total 2000.2 3520 2056.3 720 Output Total 1300 2350 2900 750 Balance 701.2 1170 -843.7 -30 Meds/Results Medications: Active Medications Generic Name Dose Route Start Last Admin Trade Name Freq PRN Reason Stop Dose Admin Acetaminophen 650 mg 04/12/25 14:03 Acetaminophen 325 Mg Tablet PO Q4H PRN Pain Rated 1-3 Albuterol 2 puff 04/12/25 14:27 Albuterol Sulfate (*Sp) Aerosol 1 Puff INHALATION Q4HRT PRN shortness of breath Amlodipine Besylate 5 mg 04/13/25 09:00 04/15/25 08:18 Amlodipine Besylate 5 Mg Tablet PO 5 mg DAILY TORY Administration Apixaban 5 mg 04/12/25 21:00 04/15/25 08:18 Apixaban 5 Mg Tablet PO 5 mg Q12HR TORY Administration Atorvastatin Calcium 20 mg 04/12/25 21:00 04/14/25 21:13 Atorvastatin 20 Mg Tablet PO 20 mg HS TORY Administration Calcium Carbonate 500 mg 04/12/25 14:03 Calcium Carbonate (Tums) 500 Mg (200 Mg Elemental) PO Q6H PRN Indigestion Clopidogrel Bisulfate 75 mg 04/13/25 09:00 04/15/25 08:18 Clopidogrel Bisulfate 75 Mg Tablet PO 75 mg DAILY TORY Administration Dextrose 12.5 gm 04/11/25 23:42 Dextrose 50% 25 Gm/50 Ml Syringe IV PUSH PRN PRN Hypoglycemia Protocol Dextrose 12.5 gm 04/12/25 14:16 Dextrose 50% 25 Gm/50 Ml Syringe IV PUSH PRN PRN Hypoglycemia Protocol Famotidine 20 mg 04/13/25 09:00 04/15/25 08:18 Famotidine 20 Mg Tablet PO 20 mg DAILY TORY Administration Glucagon 1 mg 04/11/25 23:42 Glucagon For Inj 1 Mg Vial IM PRN PRN Hypoglycemia Protocol Glucagon 1 mg 04/12/25 14:16 Glucagon For Inj 1 Mg Vial IM PRN PRN Hypoglycemia Protocol Glucose 15 gm 04/11/25 23:42 Glucose Oral Gel 15 Gm Of Glucse In 37.5 Gm Tube PO PRN PRN Hypoglycemia Protocol Glucose 15 gm 04/12/25 14:16 Glucose Oral Gel 15 Gm Of Glucse In 37.5 Gm Tube PO PRN PRN Hypoglycemia Protocol Dextrose 1,000 mls @ 100 mls/hr 04/11/25 23:42 Dextrose 5% 1,000 Ml IVPB PRN PRN Hypoglycemia Protocol Dextrose 1,000 mls @ 100 mls/hr 04/12/25 14:16 Dextrose 5% 1,000 Ml IVPB PRN PRN Hypoglycemia Protocol Insulin Aspart 4 - 8 units 04/12/25 17:00 04/15/25 11:53 Insulin Aspart (*Bkc) 100 Units/Ml SUB-Q Not Given TIDWM [facility] Protocol Insulin Aspart 2 - 4 units 04/12/25 21:00 04/14/25 21:08 Insulin Aspart (*Bkc) 100 Units/Ml SUB-Q Not Given HS [facility] Protocol Insulin Glargine 26 units 04/12/25 21:00 04/14/25 21:12 Insulin Glargine (*Bkc) 100 Units/Ml 0.2 units/kg (26 units) 26 units SUB-Q Administration HS [facility] Levothyroxine Sodium 50 mcg 04/13/25 06:30 04/15/25 05:49 Levothyroxine Sodium 50 Mcg Tablet PO 50 mcg DAILY@0630 TORY Administration Melatonin 10 mg 04/13/25 21:27 04/14/25 01:58 Melatonin 5 Mg Tablet PO 10 mg HS PRN Administration Insomnia Metoprolol Tartrate 25 mg 04/12/25 21:00 04/15/25 08:18 Metoprolol Tartrate 25 Mg Tablet PO 25 mg Q12HR TORY Administration Tamsulosin HCl 0.4 mg 04/13/25 09:00 04/15/25 08:18 Tamsulosin Hcl 0.4 Mg Capsule PO 0.4 mg QAM TORY Administration Tramadol HCl 50 mg 04/12/25 14:13 04/15/25 05:52 Tramadol Hcl (*Crx) 50 Mg Tablet PO 50 mg Q8H PRN Administration Pain Rated 4-6 Radiology Results: ITS Impressions Abdomen/Pelvis CT 04/12/25 05:20 Impression: No significant abnormality of the system identified. Suspected fecal impaction/constipation, with probable minimal stercoral proctitis. Gallbladder sludge and possibly small layering stones, versus vicarious excretion of contrast. Small fat-containing umbilical hernia. Renal Ultrasound 04/12/25 10:01 Impression: 1: Unremarkable renal ultrasound. No stones, masses or hydronephrosis. Chest X-Ray 04/12/25 16:59 IMPRESSION: No focal infiltrate or effusion. Labs Labs: Laboratory Results - last 24 hr 04/14/25 04/14/25 04/15/25 16:42 20:32 05:12 WBC 6.0 RBC 3.52 L Hgb 9.3 L Hct 32.0 L MCV 90.9 MCH 26.4 MCHC 29.1 L RDW 16.4 H Plt Count 292 MPV 9.4 Immature Gran % (Auto) 0.5 Neut % (Auto) 60.0 Lymph % (Auto) 25.6 Clark % (Auto) 6.6 Eos % (Auto) 6.1 H Baso % (Auto) 1.2 Lymph # (Auto) 1.54 Clark # (Auto) 0.4 Eos # (Auto) 0.4 H Baso # (Auto) 0.1 Abs Immat Gran (auto) 0.03 Absolute Neuts (auto) 3.6 Absolute Nucleated RBC 0.000 Band Neutrophils % 0 Nucleated RBC % 0.0 Platelet Estimate Adequate Hypochromasia 1+ Anisocytosis 1+ Schistocytes None seen Sodium 143 Potassium 3.6 Chloride 110 H Carbon Dioxide 24 Anion Gap 9 BUN 45 H D Creatinine 1.97 H Estim Creat Clear Calc 44 Estimated GFR 34 L Glucose 116 H POC Capillary Glucose 151 H 147 H Calcium 8.4 Phosphorus 2.6 Magnesium 2.8 H Total Bilirubin 0.4 AST 24 ALT 17 Alkaline Phosphatase 95 Total Protein 7.0 Albumin 3.7 04/15/25 04/15/25 07:46 11:36 WBC RBC Hgb Hct MCV MCH MCHC RDW Plt Count MPV Immature Gran % (Auto) Neut % (Auto) Lymph % (Auto) Clark % (Auto) Eos % (Auto) Baso % (Auto) Lymph # (Auto) Clark # (Auto) Eos # (Auto) Baso # (Auto) Abs Immat Gran (auto) Absolute Neuts (auto) Absolute Nucleated RBC Band Neutrophils % Nucleated RBC % Platelet Estimate Hypochromasia Anisocytosis Schistocytes Sodium Potassium Chloride Carbon Dioxide Anion Gap BUN Creatinine Estim Creat Clear Calc Estimated GFR Glucose POC Capillary Glucose 121 H 143 H Calcium Phosphorus Magnesium Total Bilirubin AST ALT Alkaline Phosphatase Total Protein Albumin Quality VTE Prophylaxis VTE prophylaxis: mechanical ordered and pharmacologic ordered
[2025-04-15 16:50] LABS: Glucose Point of Care 135 mg/dl (65-105)
--- NOTE | 2025-04-15 18:55 | P.CONCA_ITS ---
Assessment and Plan Assessment and plan (1) Peripheral vascular disease: Code(s): I73.9 - Peripheral vascular disease, unspecified Status: Acute (2) Atrial fibrillation/flutter: Status: Acute Plan 70-year-old man with paroxysmal atrial fibrillation now status post permanent pacemaker, chronic diastolic heart failure, peripheral arterial disease, chronic kidney disease stage 3B, and diabetes type 2 was advised to visit the emergency room after routine labs show acute on chronic renal injury Paroxysmal atrial fibrillation now status post permanent pacemaker -QTC is most likely prolonged secondary to widened QRS secondary to ventricular paced rhythm -continue amiodarone at 200 mg p.o. daily Chronic diastolic heart failure -euvolemic -re-evaluate in clinic with his maori physiotherapist on whether are now diuretics necessary in outpatient basis -diuretic regimen recommended to be in collaboration with outpatient Nephrology Peripheral arterial disease -continue Plavix 75 mg p.o. daily Hyperlipidemia -continue atorvastatin 20 mg every evening No further anticipated inpatient cardiac workup. Cardiology will sign off. History of Present Illness History of Present Illness Consult date/time: 04/15/25 18:55 Requesting physician: Escobar Wiley PA-C Reason For Visit: acute renal failure; prolonged QT Narrative: 70-year-old man with paroxysmal atrial fibrillation now status post permanent pacemaker, chronic diastolic heart failure, peripheral arterial disease, chronic kidney disease stage 3B, and diabetes type 2 was advised to visit the emergency room after routine labs show acute on chronic renal injury. States that he is making urine. Denies any recent chest pain, shortness of breath, orthopnea, and syncope. He is chronically wheelchair bound. Review of Systems 2 Cardiovascular: Cardiovascular: Reports as per HPI Respiratory: Respiratory: Reports as per HPI [facility] Past Medical History Medical History (Updated 04/14/25 @ 15:18 by Escobar Wiley PA-C) Atrial fibrillation/flutter CKD (chronic kidney disease) Stage 3 Pressure ulcer of right foot 2021 BPH (benign prostatic hyperplasia) HTN (hypertension) Congestive heart failure Hypothyroidism Diabetes mellitus type 2 in obese Surgical History Surgical History S/P foot surgery, right 2021 Family History Family History Unknown Diabetes mellitus Social History Social History Social History: Smoking status: Never smoker Alcohol intake: former Substance use: never Do You Feel Safe in your Home?: Yes Lack of Transportation: No Lack of Food: Never True Current Housing: I Have Housing Concerned About Future Housing: No Difficulty Paying Gas/Electric Bills: No Difficulty Paying for Meds: No Currently Unemployed: No Education: High School Diploma/GED Difficulty w/ Childcare or Family Care: No Living arrangements: with family Additional living arrangements comments: Spiritual care concerns: No Meds Home Medications and Allergies Home Medications ?Medication ?Instructions ?Recorded ?Confirmed ?Type atorvastatin 20 mg tablet 20 mg PO HS 06/30/23 04/12/25 History amiodarone 200 mg tablet (Pacerone) 200 mg PO Q12HR #60 tabs 07/01/23 04/12/25 Rx aspirin 81 mg chewable tablet 81 mg PO DAILY@0800 #30 tabs 07/01/23 04/12/25 Rx (Children's Aspirin) calcium carbonate 500 mg PO Q6H PRN Indigestion #30 07/01/23 04/12/25 Rx tabs cholecalciferol (vitamin D3) 1,250 50,000 unit PO WEEKLY #4 caps 07/01/23 04/12/25 Rx mcg (50,000 unit) capsule cyclobenzaprine 10 mg tablet 5 mg (1/2 x 10 mg) PO Q8H PRN 07/01/23 04/12/25 Rx Muscle Spasm #30 tabs famotidine 20 mg tablet 20 mg PO DAILY #30 tabs 07/01/23 04/12/25 Rx ipratropium 0.5 mg-albuterol 3 mg 3 ml inhalation Q6HRT #60 mL 07/01/23 04/12/25 Rx (2.5 mg base)/3 mL nebulization soln levothyroxine 50 mcg tablet 50 mcg PO DAILY@0630 #30 tabs 07/01/23 04/12/25 Rx (Synthroid) metoprolol tartrate 25 mg tablet 25 mg PO Q12HR #60 tabs 07/01/23 04/12/25 Rx ramelteon 8 mg tablet 8 mg PO HS #30 tabs 07/01/23 04/12/25 Rx sennosides 8.6 mg-docusate sodium 1 tab PO HS #30 tabs 07/01/23 04/12/25 Rx 50 mg tablet (Senokot-S) sodium hypochlorite 0.25 % 1 applic topical BID #10 mL 07/01/23 04/12/25 Rx solution (Dakin's Solution) tamsulosin 0.4 mg capsule 0.4 mg PO QAM #30 caps 07/01/23 04/12/25 Rx tramadol 50 mg tablet 50 mg PO Q8H PRN Pain Rated 4-6 07/01/23 04/12/25 Rx #20 tabs albuterol 90 mcg/actuation aerosol 90 mcg inhalation .q4hr PRN 02/14/25 04/12/25 History inhaler shortness of breath apixaban 5 mg tablet (Eliquis) 5 mg PO BID 02/14/25 04/12/25 History bumetanide 1 mg tablet 1 mg PO BID 02/14/25 04/12/25 History insulin glargine 100 unit/mL (3 25 unit subcut .q12hr 02/14/25 04/12/25 History mL) subcutaneous pen (Basaglar KwikPen U-100 Insulin) insulin lispro 100 unit/mL 10 unit subcut TIDWM 02/14/25 04/12/25 History subcutaneous pen (Humalog KwikPen (U-100) Insulin) metolazone 2.5 mg tablet 2.5 mg PO QMWF 02/14/25 04/12/25 History acetaminophen 325 mg tablet 650 mg PO Q4H PRN Pain Rated 5 Or 04/12/25 04/12/25 History Less amlodipine 2.5 mg tablet 5 mg PO DAILY 04/12/25 04/12/25 History clopidogrel 75 mg tablet 75 mg PO DAILY 04/12/25 04/12/25 History ferrous sulfate 325 mg (65 mg 325 mg PO DAILY 04/12/25 04/12/25 History iron) tablet,delayed release magnesium citrate 100 mg capsule 200 mg PO HS 04/12/25 04/12/25 History miconazole nitrate 2 % topical applic topical BID 04/12/25 History cream trazodone 50 mg tablet 25 mg PO QHS 04/12/25 04/12/25 History Allergies Allergy/AdvReac Type Severity Reaction Status Date / Time No Known Allergies Allergy Verified 04/11/25 18:13 Vital Signs Vital Signs - 24 hr 04/14/25 20:00 04/14/25 20:00 04/14/25 20:28 Temperature 36.6 C Pulse Rate 78 87 Respiratory Rate 20 Blood Pressure 130/66 Pulse Oximetry 96 Oxygen Delivery Room Air 04/14/25 20:46 04/14/25 21:13 04/15/25 00:00 Temperature Pulse Rate 65 67 Respiratory Rate Blood Pressure Pulse Oximetry 96 Oxygen Delivery Room Air 04/15/25 04:00 04/15/25 04:56 04/15/25 08:00 Temperature 36.5 C Pulse Rate 72 69 80 Respiratory Rate 20 Blood Pressure 130/65 Pulse Oximetry 100 Oxygen Delivery 04/15/25 08:18 04/15/25 08:18 04/15/25 12:00 Temperature Pulse Rate 73 71 Respiratory Rate Blood Pressure Pulse Oximetry Oxygen Delivery Room Air 04/15/25 14:00 Temperature Pulse Rate 65 Respiratory Rate 18 Blood Pressure 113/61 Pulse Oximetry 100 Oxygen Delivery Exam 2 Const: General: comfortable HENMT: Mouth: Yes moist mucous membranes Eyes: EOM: EOMs intact bilaterally Neck: Neck: no JVD Resp: Effort & Inspection: normal respiratory effort Auscultation: clear to auscultation bilaterally Cardio: Rate: regular rate Rhythm: regular rhythm Results Labs and Meds 04/15/25 05:12 04/15/25 05:12 Lab results: Cardiac Enzymes 04/15/25 Range/Units 05:12 AST 24 (17-59) U/L CBC 04/15/25 Range/Units 05:12 WBC 6.0 (4.5-10.0) K/mm3 RBC 3.52 L (4.6-6.20) M/mm3 Hgb 9.3 L (14.0-18.0) g/dL Hct 32.0 L (42.0-52.0) % Plt Count 292 (150-375) k/mm3 Lymph # (Auto) 1.54 (0.9-3.2) K/mm3 [place] # (Auto) 0.4 (0.1-0.6) K/mm3 Eos # (Auto) 0.4 H (0-0.3) K/mm3 Baso # (Auto) 0.1 (0.0-0.1) K/mm3 Comprehensive Metabolic Panel 04/15/25 Range/Units 05:12 Sodium 143 (137-145) mmol/L Potassium 3.6 (3.4-5.0) mmol/L Chloride 110 H (98-107) mmol/L Carbon Dioxide 24 (22-30) mmol/L BUN 45 H D (9-20) mg/dL Creatinine 1.97 H (0.7-1.3) mg/dL Glucose 116 H (65-110) mg/dL Calcium 8.4 (8.4-10.2) mg/dL AST 24 (17-59) U/L ALT 17 (6-50) U/L Alkaline Phosphatase 95 (38-126) U/L Total Protein 7.0 (6.3-8.2) g/dL Albumin 3.7 (3.5-5.1) g/dL Intake and Output 04/15/25 04/15/25 04/15/25 07:59 15:59 23:59 Intake Total 240 480 640 Output Total 600 150 Balance -360 330 640 Intake: Oral 240 480 640 Output: Urine 600 150 Other: # Incontinent Voids 4
[2025-04-15] MEDS: ATORVASTATIN 20 MG TABLET PO (20:25)
[2025-04-15] MEDS: INSULIN GLARGINE (*BKC) 100 UNITS/ML 26 UNITS SUB-Q (20:26)
[2025-04-15] MEDS: INSULIN ASPART (*BKC) 100 UNITS/ML SUB-Q (20:26)
[2025-04-15 20:34] LABS: Glucose Point of Care 273 mg/dl (65-105)
[2025-04-16] VITALS (8 sets, daily range): BP systolic 122–135; BP diastolic 55–67; PULSE 60–72; RESP 20; TEMP 36.7–36.9; O2SAT 99–100
[2025-04-16] MEDS: LEVOTHYROXINE SODIUM 50 MCG TABLET PO (05:33)
[2025-04-16 05:37] LABS: Basophils Absolute Auto 0.1 K/mm3 (0.0-0.1); Basophils Percent Auto 0.8 % (0.2-1.2); Eosinophils Absolute Auto 0.3 K/mm3 (0-0.3); Eosinophils Percent Auto 4.8 % (0-4.4); Hematocrit 29.3 % (42.0-52.0); Hemoglobin 8.5 g/dL (14.0-18.0); Immature Granulocyte Absolute 0.03 K/mm3 (0.00-0.031); Immature Granulocyte Percent A 0.5 % (0-0.5); Lymphocytes Absolute Auto 1.42 K/mm3 (0.9-3.2); Lymphocytes Percent Auto 21.5 % (18.3-44.2); Mean Corpuscular Hemoglobin 25.9 pg (26-34); Mean Corpuscular Volume 89.3 fl (80-100); Mean Platelet Volume 9.4 fl (7.4-10.4); Monocytes Absolute Auto 0.5 K/mm3 (0.1-0.6); Monocytes Percent Auto 7.3 % (2.6-8.5); Neutrophils Absolute Auto 4.3 K/mm3 (1.3-6.7); Neutrophils Percent Auto 65.1 % (45.5-73.1); Platelet Count Result 289 k/mm3 (150-375); Red Blood Count 3.28 M/mm3 (4.6-6.20); Red Cell Distribution Width 16.4 % (11.5-14.5); White Blood Count 6.6 K/mm3 (4.5-10.0)
[2025-04-16 05:49] LABS: Alanine Aminotransferase 16 U/L (6-50); Albumin Level 3.4 g/dL (3.5-5.1); Alkaline Phosphatase 78 U/L (38-126); Anion Gap 6 mmol/L (4-12); Aspartate Amino Transferase 21 U/L (17-59); Bilirubin,Total 0.4 mg/dL (0.2-1.3); Blood Urea Nitrogen 43 mg/dL (9-20); Calcium 8.2 mg/dL (8.4-10.2); Carbon Dioxide 26 mmol/L (22-30); Chloride 110 mmol/L (98-107); Estimated CRCL calculation 47 ml/min; Estimated Glomerular Filt Rate 36; Glucose 76 mg/dL (65-110); Magnesium 2.7 mg/dL (1.6-2.3); Potassium 3.9 mmol/L (3.4-5.0); Sodium 142 mmol/L (137-145)
[2025-04-16 06:02] LABS: Anisocytosis 1+; Platelet Estimate Adequate (Adequate); Schistocytes None Seen
[2025-04-16 07:49] LABS: Glucose Point of Care 83 mg/dl (65-105)
[2025-04-16] MEDS: METOPROLOL TARTRATE 25 MG TABLET PO (08:09)
[2025-04-16] MEDS: AMIODARONE HCL 200 MG TABLET PO (08:09)
[2025-04-16] MEDS: APIXABAN 5 MG TABLET PO (08:10)
[2025-04-16] MEDS: TAMSULOSIN HCL 0.4 MG CAPSULE PO (08:10)
[2025-04-16] MEDS: CLOPIDOGREL BISULFATE 75 MG TABLET PO (08:10)
[2025-04-16] MEDS: FAMOTIDINE 20 MG TABLET PO (08:10)
[2025-04-16] MEDS: amLODIPine BESYLATE 5 MG TABLET PO (08:10)
--- NOTE | 2025-04-16 10:03 | P.DS_ITS ---
DS: Admitting Diagnosis Discharge Date 04/16/2025 Admitting Diagnosis Acute kidney injury superimposed on CKD Electrolyte abnormality Prolonged Q-T interval on ECG DS: Discharge Diagnosis Discharge Diagnosis (1) Acute kidney injury superimposed on CKD: Code(s): N17.9 - Acute kidney failure, unspecified; N18.9 - Chronic kidney disease, unspecified Status: Acute (2) Electrolyte abnormality: Code(s): E87.8 - Other disorders of electrolyte and fluid balance, not elsewhere classified Status: Acute (3) Prolonged Q-T interval on ECG: Code(s): R94.31 - Abnormal electrocardiogram [ECG] [EKG] Status: Acute (4) BPH (benign prostatic hyperplasia): Code(s): N40.0 - Benign prostatic hyperplasia without lower urinary tract symptoms Status: Acute (5) Atrial fibrillation/flutter: Status: Acute (6) Hyperglycemia due to diabetes mellitus: Code(s): E11.65 - Type 2 diabetes mellitus with hyperglycemia Status: Acute (7) HTN (hypertension): Qualifiers: Hypertension type: primary hypertension Qualified Code(s): I10 - Essential (primary) hypertension Code(s): I10 - Essential (primary) hypertension Status: Chronic (8) Peripheral vascular disease: Code(s): I73.9 - Peripheral vascular disease, unspecified Status: Acute DS: Summary Hospital Course Reason for hospitalization: Abnormal labs Hospital Course: Patient is a 70-year-old male with a past medical history of DM2, CKD, previous diabetic foot infections, pacemaker, atrial fibrillation, CHF, BPH, hypothyroidism who presents to the hospital after his primary care physician obtained blood work which showed worsening kidney function and hypokalemia. He states that he had routine labs ordered on 04/10 through his PCP and he was advised to come to the emergency department due to worsening renal failure. He has been experiencing decreased urinary frequency over the past several days as well. Patient is currently not on dialysis. He denies any chest pain, shortness a breath, nausea/vomiting, headaches, dizziness, abdominal pain, or bowel changes. Patient was recently seen in January for diabetic infection and was ultimately transferred to [facility] under vascular surgery care for osteomyelitis which required surgical intervention. He denies any sick contacts, recent illnesses, long distance travel. Diabetes managed by PCP, no recent changes to medications or issues with glycemic control. Initial VS at presentation: 97.8F, 60 HR, 17 RR, 126/61 BP, 100% on RA Blood Work: WBC 7.2, HGB 10 HCT 336 sodium 139, potassium 3.1 chloride 97, Anion gap 13, BUN 114, include forward through to go estimated GFR 13, glucose 230, calcium 8.6, magnesium 3.6, phosphorus 4 8 normal LFTs UA: Unremarkable EKG: Electronic atrial/ventricular pacemaker, rate 67 B p.m.. P.r.n. and 248 milliseconds. QRS prolonged 220 milliseconds. QTC 588 Abdominal/pelvis CT: Significant abnormality of system, suspected fecal impaction/constipation with probable minimal stercoral proctitis gallbladder sludge and possibly small layering stones, small fat containing umbilical hernia Renal ultrasound: Unremarkable renal ultrasound, no masses, stones, or hydronephrosis Nephrology consulted regarding acute kidney failure on top of stage 3 chronic kidney disease. Possible etiologies range from prerenal factors to outpatient diuretic and/or infection, CT scan and renal ultrasound did not show any urinary obstruction and urinalysis was without evidence of infection. Patient's diuretics have been placed on hold. Gentle IV fluids for rehydration is initiated. Patient was bladder scanned which showed a large amount of urine, approximately 1000 cc. He was subsequently catheterized with a Blair catheter and approximately 1000 mL of urine was drained. Throughout his hospitalization, patient's kidney function continued to improve. Creatinine decreased from 4.38 on 04/11/2025 down to 1.84 on 04/16/2025. This is likely near or at patient's baseline creatinine function. The patient also was admitted for hypokalemia, his potassium was found to be 3.1 on 04/11/2025. This increased up to 3.4 on 04/14/2025 and and within normal limits throughout the rest of his hospitalization. His magnesium was also found to be high, at 3.6 upon admission and 2.7 upon discharge. Throughout his hospitalization, the patient's Bumex and metolazone were held given electrolyte abnormalities. He was also found to have QTC prolongation, with a QTC of 588 on his EKG. Throughout his visit, however he was held on his amiodarone. Cardiology is also consulted regarding this issue, and they agree that QTC is most likely prolonged secondary to widened QRS secondary to ventricular paced rhythm S the patient is on a permanent pacemaker. They elected to continue amiodarone at 200 mg p.o. daily. Patient is otherwise hemodynamically stable and had no point throughout his hospitalization had an symptoms or any complaints. At the time of discharge, patient's blood work is at or near baseline. Vital signs have remained stable throughout visit and patient expressed interest in being discharged at this time. It is appropriate for discharge outpatient follow-up with Nephrology and Cardiology. I will instruct the patient to discuss with his PCP regarding these follow-up appointments. No other workup is necessary at this time. Plan for discharge. Status at Discharge Functional status at discharge: uses cane/walker Overall status at discharge: patient is progressing back to baseline Time Spent with Patient Time attestation: Total time spent providing and/or coordinating discharge services: 40 Exam Narrative: Gen - obese well appearing male in no acute respiratory distress who is nontoxic-appearing lying semi recumbent in bed HEENT - normocephalic. Atraumatic. Pupils equal round and reactive. Extraocular motions intact. Sclera clear and anicteric. Nares patent. Moist mucous membranes. Tongue was midline. No facial asymmetry. Neck - neck was supple. Chest - lungs are clear to auscultation bilaterally. No wheezes or crackles. CV - heart was regular rate and rhythm. S1-S2. No murmurs gallops or rubs. Abd - abdomen was soft. Nontender. Nondistended. Positive bowel sounds. No organomegaly or masses. Ext - Right 3rd+4th toes have eschar, open wound on dorsal surface of R foot, no s/s of infxn. Severe PVD + neuropathy. 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 No s/s infxn. Dry/clean scabs present scattered on foot/leg. No pitting edema. Neuro - patient is alert and oriented x4. Strength is 5/5 in both upper and lower extremities. Cranial nerves 2-12 are intact. Speech is clear. Psych - normal mood and affect. Patient is pleasant and cooperative. Skin - warm and dry. No rashes noted. DS: Data Data Completed and Pending Labs on day of discharge: Labs from last 24 hours 04/16/25 04/16/25 04/16/25 07:43 04:52 04:51 WBC 6.6 RBC 3.28 L Hgb 8.5 L Hct 29.3 L MCV 89.3 MCH 25.9 L MCHC 29.0 L RDW 16.4 H Plt Count 289 MPV 9.4 Immature Gran % (Auto) 0.5 Neut % (Auto) 65.1 Lymph % (Auto) 21.5 [place] % (Auto) 7.3 Eos % (Auto) 4.8 H Baso % (Auto) 0.8 Lymph # (Auto) 1.42 [place] # (Auto) 0.5 Eos # (Auto) 0.3 Baso # (Auto) 0.1 Abs Immat Gran (auto) 0.03 Absolute Neuts (auto) 4.3 Absolute Nucleated RBC 0.000 Band Neutrophils % Not Reportable Nucleated RBC % 0.0 Platelet Estimate Adequate Anisocytosis 1+ Schistocytes None seen Sodium 142 Potassium 3.9 Chloride 110 H Carbon Dioxide 26 Anion Gap 6 BUN 43 H Creatinine 1.84 H Estim Creat Clear Calc 47 Estimated GFR 36 L Glucose 76 POC Capillary Glucose 83 Calcium 8.2 L Phosphorus 3.0 Magnesium 2.7 H Total Bilirubin 0.4 AST 21 ALT 16 Alkaline Phosphatase 78 Total Protein 7.0 Albumin 3.4 L 04/15/25 04/15/25 04/15/25 20:17 16:44 11:36 WBC RBC Hgb Hct MCV MCH MCHC RDW Plt Count MPV Immature Gran % (Auto) Neut % (Auto) Lymph % (Auto) [place] % (Auto) Eos % (Auto) Baso % (Auto) Lymph # (Auto) [place] # (Auto) Eos # (Auto) Baso # (Auto) Abs Immat Gran (auto) Absolute Neuts (auto) Absolute Nucleated RBC Band Neutrophils % Nucleated RBC % Platelet Estimate Anisocytosis Schistocytes Sodium Potassium Chloride Carbon Dioxide Anion Gap BUN Creatinine Estim Creat Clear Calc Estimated GFR Glucose POC Capillary Glucose 273 H 135 H 143 H Calcium Phosphorus Magnesium Total Bilirubin AST ALT Alkaline Phosphatase Total Protein Albumin Discharge Plan Discharge Attending physician on discharge: Melissa Vergara Consulting providers: Abner Ramirez; Escobar Wiley; Oliver Sanchez Discharging Clinician: Escobar Wiley Anticipated Discharge Date/Time: 04/16/25 09:49 Patient Disposition: Home with Home Health Service Activity: as tolerated Diet: as tolerated Discharge Instructions: Per Care Coordination Patient is current with [facility] for RN, PT, OT. Please resume Home Health services at discharge. [phone] RN please fax completed discharge instructions to [phone] Take medications as prescribed Maintain a cardiac diet, 2 g sodium, do not over hydrate Remain active Monitor urine output Daily weights, if you gain more than 3 lb within 1 day or 5 lb in 1 week notify your primary care provider If you develop chest pain, shortness breath, fever greater than 101, nausea, or vomiting notify a clinician or come to the emergency department Follow-up with primary care provider within 1-2 weeks Thank you for [facility] for your healthcare needs Patient Instructions: Antibiotic Form, Apixaban (By mouth) Patient Language: Malaysian Stand Alone Forms: General Discharge Information Follow-up/Referrals: Gianluca,MD Bryan [Primary Care Provider] - Abner Ramirez MD [Physician] - Discharge Medications: Continued Eliquis 5 mg tablet 5 mg PO BID metolazone 2.5 mg tablet 2.5 mg PO QMWF insulin glargine [Basaglar KwikPen U-100 Insulin] 100 unit/mL (3 mL) insulin pen 25 unit subcut .q12hr insulin lispro [Humalog KwikPen Insulin] 100 unit/mL insulin pen 10 unit subcut TIDWM albuterol 90 mcg/actuation aerosol 90 mcg inhalation .q4hr PRN (Reason: shortness of breath) Rx Instructions: 2 puffs bumetanide 1 mg Tablet 1 mg PO BID clopidogrel 75 mg tablet 75 mg PO DAILY miconazole nitrate 2 % cream TOPICAL BID ferrous sulfate 325 mg (65 mg iron) tablet,delayed release (DR/EC) 325 mg PO DAILY magnesium citrate 100 mg capsule 200 mg PO HS trazodone 50 mg tablet 25 mg PO QHS acetaminophen 325 mg Tablet 650 mg PO Q4H PRN (Reason: Pain Rated 5 Or Less) amlodipine 2.5 mg Tablet 5 mg PO DAILY atorvastatin 20 mg Tablet 20 mg PO HS cyclobenzaprine 10 mg Tablet 5 mg PO Q8H PRN (Reason: Muscle Spasm) Qty: 30 0RF ipratropium-albuterol 0.5 mg-3 mg(2.5 mg base)/3 mL Solution For Nebulization 3 ml inhalation Q6HRT Qty: 60 0RF amiodarone [Pacerone] 200 mg Tablet 200 mg PO Q12HR Qty: 60 0RF sennosides-docusate sodium [Senokot-S] 8.6-50 mg Tablet 1 tab PO HS Qty: 30 0RF tramadol 50 mg Tablet 50 mg PO Q8H PRN (Reason: Pain Rated 4-6) Qty: 20 0RF famotidine 20 mg Tablet 20 mg PO DAILY Qty: 30 0RF tamsulosin 0.4 mg Capsule 0.4 mg PO QAM Qty: 30 0RF levothyroxine [Synthroid] 50 mcg Tablet 50 mcg PO DAILY@0630 Qty: 30 0RF aspirin [Children's Aspirin] 81 mg Tablet,Chewable 81 mg PO DAILY@0800 Qty: 30 0RF calcium carbonate 500 mg calcium (1,250 mg) Tablet,Chewable 500 mg PO Q6H PRN (Reason: Indigestion) Qty: 30 0RF Dakin's Solution 0.25 % Solution 1 applic topical BID Qty: 10 0RF metoprolol tartrate 25 mg Tablet 25 mg PO Q12HR Qty: 60 0RF ramelteon 8 mg Tablet 8 mg PO HS Qty: 30 0RF cholecalciferol (vitamin D3) 1,250 mcg (50,000 unit) Capsule 50,000 unit PO WEEKLY Qty: 4 0RF Date of admission: 04/12/25 07:24 Primary Care Provider: Bryan Vargas Admitting Provider: Melissa Vergara Attending physician on admission: Escobar Wiley Condition: Stable Quality VTE Prophylaxis VTE prophylaxis: mechanical ordered and pharmacologic ordered
[2025-04-16 11:44] LABS: Glucose Point of Care 176 mg/dl (65-105)
== END 2025-04-16 14:30 | disposition home health service (06) | DRG 683 ==
LOC: ANHED 23:52 → ANH3MEDSUR 04-12 00:48 → ANH2MED 04-12 01:35
PROVIDERS: Internal Medicine Nephrology; Nurse Practitioner; Admitting Provider Family Medicine; Emergency Provider Student in an Organized Health Care Education/Training Program; PCP Internal Medicine; Visit Provider Physician Assistant
DX: N17.9 Acute kidney failure, unspecified (principal); I13.0 Hypertensive heart and chronic kidney disease with heart failure and stage 1 through stage 4 chronic kidney disease, or unspecified chronic kidney disease; I50.32 Chronic diastolic (congestive) heart failure; E87.8 Other disorders of electrolyte and fluid balance, not elsewhere classified; N40.0 Benign prostatic hyperplasia without lower urinary tract symptoms; E11.65 Type 2 diabetes mellitus with hyperglycemia; I73.9 Peripheral vascular disease, unspecified; E87.6 Hypokalemia; I48.0 Paroxysmal atrial fibrillation; E11.22 Type 2 diabetes mellitus with diabetic chronic kidney disease; N18.32 Chronic kidney disease, stage 3b; E03.9 Hypothyroidism, unspecified; I45.81 Long QT syndrome; E66.9 Obesity, unspecified; E78.5 Hyperlipidemia, unspecified; Z95.0 Presence of cardiac pacemaker; Z68.36 Body mass index [BMI] 36.0-36.9, adult
CPT/HCPCS: 36415; 71045; 74176; 76775; 80053; 80069; 80307; 81001; 81050; 82550; 82570; 82948; 83036; 83735; 84100; 84156; 84300; 84443; 84540; 85025; 85999; 93005; 96360; 97110; 97161; 97166; 97530; 97535; 99285; A9270; G0378; J1815; J7030

== ENCOUNTER 2025-05-20 10:19 | Emergency (ER) | payer MEDICARE, SELFPAY ==
[2025-05-20 10:25] VITALS: BP 123/62; PULSE 62; RESP 12; TEMP 36.7; O2SAT 97
--- OUTSIDE RECORDS SUMMARY | 2025-05-20 11:29 | XMS_ITS | Referral Summary ---
Author Organization [facility] B Address [address] [place] [address] Care Team Providers Care Director Biomedical Engineering Name Role Phone Bryan Hough MD Primary Care Provider [phone] Delilah Adams MD PhD Unavailable [phone] Encounters Date Type Department Care Team Description 05/04/2025 2:31 PM CDT - 05/13/2025 2:58 PM CDT Hospital Encounter [address] [phone] Delilah Adams MD PhD Peripheral vascular disease (Primary Dx); Critical limb ischemia of both lower extremities (HCC); Gangrene associated with diabetes mellitus (HCC) Discharge Disposition: Discharge to SNF 05/08/2025 11:11 AM CDT - 05/08/2025 1:31 PM CDT Surgery [facility] Operating Room 1 [place] [phone] Delilah Adams MD PhD DEBRIDEMENT - FOOT 05/08/2025 12:13 PM CDT Anesthesia Event [facility] Operating Room 1 [place] [phone] Masood Amin MD Lentz, William Thomas, NP 05/06/2025 5:45 PM CDT Anesthesia Event [facility] Operating Room 1 [place] [phone] Kosta Lott MD Jablonski, Melody A., NP 05/06/2025 5:27 PM CDT - 05/06/2025 9:57 PM CDT Surgery [facility] Operating Room 1 [place] [address] Delilah Adams MD PhD Angiogram CO2 05/04/2025 Telephone [facility] Bed Planning 1 [place] [address] Ofe Graham 05/03/2025 Orders Only [facility] Surgery [address] Floor 1 [place] [address] Delilah Adams MD PhD Encounter for surgical aftercare following surgery on the circulatory system (Primary Dx) 05/01/2025 8:45 AM CDT Ancillary Procedure [facility] Vascular Lab at the [facility] Advanced Medicine [address] 8[address] [place] [address] [place] [address] Encounter for surgical aftercare following surgery on the circulatory system; Peripheral vascular disease 05/01/2025 9:30 AM CDT Office Visit [facility] Surgery [address] 8[address] [place] [address] [place] [address] Delilah Adams MD PhD Gangrene associated with diabetes mellitus (HCC); Chronic renal disease, stage IV (HCC) 04/30/2025 Telephone [facility] Surgery [address] [facility] Floor 1 [place] [address] Andreas Hansen CMA 04/19/2025 Telephone [facility] Surgery [address] [facility] [facility] Floor 1 [place] [address] Katy Ramirez Suture / Staple Removal 04/17/2025 Orders Only [facility] Medical [facility] Cardiology [address] [place] [address] Oliver Sanchez MD 03/23/2025 1:17 PM CDT - 03/23/2025 11:59 PM CDT Hospital Encounter [facility] Emergency, Room R Discharge Disposition: Discharge to home or self care 03/22/2025 Telephone [facility] Home Care Services [address] [place] [phone] Unknown Notinfile 03/11/2025 Telephone [facility] Surgery [address] [facility] Floor 1 [place] [phone] Katy Ramirez 03/11/2025 Telephone [facility] Surgery [address] [facility] Floor 1 [place] [phone] Katy Ramirez Appointment 03/02/2025 11:10 AM CDT - 03/02/2025 11:59 PM CDT Hospital Encounter [facility] [address] [place] [address] Discharge Disposition: Discharge to home or self care 02/15/2025 6:18 PM CDT - 03/02/2025 2:46 PM CDT Hospital Encounter [address] [phone] Delilah Adams MD PhD Gangrene associated with diabetes mellitus (HCC) (Primary Dx) Discharge Disposition: Discharge to SNF 02/26/2025 Orders Only [facility] Vascular Surgery [address] [facility] Medical [facility] Building [address] [place] [phone] Delilah Adams MD PhD Encounter for surgical aftercare following surgery on the circulatory system (Primary Dx); Peripheral vascular disease 02/26/2025 7:30 AM CDT - 02/26/2025 11:35 AM CDT Surgery [facility] Operating Room 1 [place] [address] Delilah Adams MD PhD Angiogram-CO2 02/26/2025 7:27 AM CDT Anesthesia Event [facility] Operating Room 1 [place] [phone] Sylvie Vazquez MD PhD Paolo Latif NP 02/18/2025 4:00 PM CDT Anesthesia Event [facility] Operating Room 1 [place] [address] Ollie Syed MD Mallette, Allison Anne, NP from Last 3 Months Allergies No known active allergies Medications ipratropium-a lbuteroL (DUO-NEB) 0.5-2.5 mg/3 mL nebulizer solution Take 3 mL by nebulization every 6 (six) hours Active levothyroxine (SYNTHROID) 50 mcg tablet Take 1 tablet (50 mcg total) by mouth caser in before breakfast Active metoprolol tartrate (LOPRESSOR) 25 mg immediate release tablet Take 1 tablet (25 mg total) by mouth 2 (two) times a day Active ramelteon (ROZEREM) 8 mg tabletIndicat ions:Sleep-On set Insomnia Take 1 tablet (8 mg total) by mouth nightly Active tamsulosin (FLOMAX) 0.4 mg extended release capsule Take 1 capsule (0.4 mg total) by mouth daily Active apixaban (ELIQUIS) 5 mg tablet Take 1 tablet (5 mg total) by mouth 2 (two) times a day Active amLODIPine (NORVASC) 5 mg tablet Take 1 tablet (5 mg total) by mouth daily 30 tablet 03/02/20 25 Active cholecalcifer ol (VITAMIN D-3) 4,000 unit tablet Take 1 tablet (4,000 Units total) by mouth daily 03/02/20 25 Active cyclobenzapri ne (FLEXERIL) 5 mg tablet Take 1 tablet (5 mg total) by mouth 3 (three) times a day as needed for muscle spasms 03/01/20 25 Active amiodarone (PACERONE) 200 mg tablet Take 1 tablet (200 mg total) by mouth 2 (two) times a day 03/01/20 25 Active atorvastatin (LIPITOR) 20 mg tablet Take 1 tablet (20 mg total) by mouth nightly 03/01/20 25 Active dorzolamide (TRUSOPT) 2 % ophthalmic solution Administer 1 drop into both eyes daily 0 03/02/20 25 Active timolol (TIMOPTIC) 0.5 % ophthalmic solution Administer 1 drop into both eyes daily 03/02/20 25 Active famotidine (PEPCID) 20 mg tablet Take 1 tablet (20 mg total) by mouth daily 30 tablet 03/02/20 25 Active ferrous sulfate 325 mg (65 mg of elemental iron) tabletIndicat ions:Iron Deficiency Anemia Take 1 tablet (325 mg total) by mouth daily with breakfast 30 tablet 03/02/20 25 Active miconazole (SECURA THICK) 2 % cream Apply topically 2 (two) times a day 03/01/20 25 Active polyethylene glycol (MIRALAX) 17 gram/dose bulk powderIndicat ions:constipa tion Take 17 g by mouth daily 03/01/20 25 Active oxyCODONE (ROXICODONE) 5 mg immediate release tabletIndicat ions:Pain Take 1 tablet (5 mg total) by mouth every 4 (four) hours as needed for pain for up to 14 days 25 tablet 05/13/20 25 025 Active clopidogreL (PLAVIX) 75 mg tablet Take 1 tablet (75 mg total) by mouth daily 30 tablet 05/15/20 25 Active acetaminophen 500 mg capsule Take 2 capsules (1,000 mg total) by mouth every 6 (six) hours as needed for pain 30 tablet 05/13/20 25 Active senna-docusat e (PERICOLACE) 8.6-50 mg Take 1 tablet by mouth 2 (two) times a day 30 tablet 05/13/20 25 Active aspirin 81 mg enteric coated tablet Take 1 tablet (81 mg total) by mouth daily Please stop this medication once you start your Plavix. Thanks 05/13/20 25 026 Active linezolid (ZYVOX) 600 mg tabletIndicat ions:Skin/Sof t Tissue Infection Take 1 tablet (600 mg total) by mouth 2 (two) times a day for 14 days 28 tablet 05/13/20 25 025 Active ciprofloxacin (CIPRO) 500 mg tabletIndicat ions:Skin/Sof t Tissue Infection Take 1 tablet (500 mg total) by mouth 2 (two) times a day for 14 days 05/13/20 25 025 Active bumetanide (BUMEX) 1 mg tablet Take 1 tablet (1 mg total) by mouth 2 (two) times a day This is pt's home med 05/13/20 25 Active insulin lispro (HumaLOG, ADMELOG) 100 unit/mL pen for injection Inject 1-5 units under the skin 3 (three) times a day with meals. Blood glucose mg/dL 150-199: 1 unit, 200-249: 2 units, 250-299: 3 units, 300-349: 4 units, 350 or greater: 5 units. Notify provider for blood glucose greater than 299 mg/dL. Refer to After Visit Summary for Sliding Scale Insulin Instructions. 15 mL 05/13/20 Active senna-docusat e (PERICOLACE) 8.6-50 mg Take 1 tablet by mouth daily 025 Discontinued(S top Taking at Discharge) insulin glargine 100 unit/mL (3 mL) pen for injection Inject 25 Units under the skin every 12 (twelve) hours 025 Discontinued(S top Taking at Discharge) insulin lispro (HumaLOG, ADMELOG) 100 unit/mL pen for injection Inject 10 Units under the skin 3 (three) times a day with meals 025 Discontinued(S top Taking at Discharge) acetaminophen (TYLENOL) 325 mg tabletIndicat ions:Fever,Pa in Take 2 tablets (650 mg total) by mouth every 4 (four) hours as needed for pain 03/01/20 025 Discontinued(S top Taking at Discharge) clopidogreL (PLAVIX) 75 mg tablet Take 1 tablet (75 mg total) by mouth daily 03/02/20 25 025 Discontinued bumetanide (BUMEX) 1 mg tablet Take 1 tablet (1 mg total) by mouth 2 (two) times a day Please restart your home dose Bumex on Tuesday, 03/04. 03/04/20 25 025 Discontinued metOLazone (ZAROXOLYN) 2.5 mg tablet Take 1 tablet (2.5 mg total) by mouth 3 (three) times a week Please restart your home metolazone on Tuesday, 03/04. Tuesday, Tuesday, Tuesday03/04/20 25 025 Discontinued(S top Taking at Discharge) insulin lispro (HumaLOG, ADMELOG) 100 unit/mL pen for injection Inject 1-5 units under the skin 3 (three) times a day with meals. Blood glucose mg/dL 150-199: 1 unit, 200-249: 2 units, 250-299: 3 units, 300-349: 4 units, 350 or greater: 5 units. Notify provider for blood glucose greater than 299 mg/dL. Refer to After Visit Summary for Sliding Scale Insulin Instructions. 05/13/20 25 025 Discontinued(S top Taking at Discharge) Active Problems Problem Noted Date Diagnosed Date Anemia of chronic disease 05/09/2025 Assessment & Plan (05/10/2025 8:39 AM CDT): -Acute on chronic blood loss anemia of chronic disease -05/07: s/p 3u PRBC for Hgb of 7.3. Responded well, post transfusion Hgb 8.4 -05/08:Hgb 8.4 (MCV 87.3). Baseline HgB 7.5-9 - Consider obtaining iron studies, ferritin for evaluation of iron deficiency---> labs ordered for 05/09. C/w chronic disease + AMISHA. Start iron supplement OP -Monitor daily CBC Constipation 03/01/2025 Assessment & Plan (03/01/2025 6:54 PM CDT): Last BM 03/01 - Bowel regimen: miralax, senna d, dulcolax supp today. Increase as needed - Monitor intake and output Hyperkalemia 02/27/2025 Assessment & Plan (03/01/2025 7:46 AM CDT): K 5.4 overnight 02/27. Now 4.8 - Resumed bumex and metolazone but then held again - Check EKG - low potassium diet - Re-consult nephrology 02/28 Blindness and low vision 02/16/2025 Assessment & Plan (02/25/2025 6:49 AM CDT): Blindness on right eye category 3, sees only vague shapes and light. Chronic congestive heart failure 02/16/2025 Assessment & Plan (05/07/2025 11:39 AM CDT): Hx CHF, EF in 02/12 was 51 %. Grade I diastolic dysfunction -Continue metoprolol. Holding bumex, metolazone 2/2 GLORIA on CKD -Monitor fluid status, s/p IVFs 05/06 -Resume meds as able Assessment & Plan (03/01/2025 6:54 PM CDT): Patient with CHF, has PPM; unknown type of PPM. - Continue asa, statin, metoprolol. - Holding metolazone and bumex - TTE 02/18: with EF on 51%, Mild RV dilation, normal RV systolic function. Mild MVR. Diabetes mellitus, type 2 02/15/2025 Assessment & Plan (05/10/2025 8:43 AM CDT): Home regimen includes glargine 25u and lispro 10u TID. HbA1c levels at admission: 7.1 -BG monitoring -Basal/bolus insulin. Adjust doses based on BG results -Consistent carb diet when eating. Assessment & Plan (02/25/2025 6:50 AM CDT): Home regimen includes glargine and lispro. HbA1c levels at admission: 7.1 -BG monitoring -Basal/bolus insulin. Adjust doses based on BG results -Consistent carb diet when eating Peripheral vascular disease 02/15/2025 Assessment & Plan (05/11/2025 8:15 AM CDT): Admitted in January-February for bilateral foot wounds. Wounds were treated with course of cefepime followed by Keflex and local wound care. Eventually with for bilateral lower extremity angiogram on 02/26 with selective catheterization of the left PT from a right femoral artery cannulation, serial angioplasty of the left PT, and Amputation of the left foot 3rd and 4th digit tips at the PIP joint space. -05/04: Readmitted for nonhealing L toe wounds, planning for surgical intervention 05/06. IPAP consulted. -05/06: s/p OR for RLE diagnostic angiogram with 2 vessel runoff. Left 3rd, 4th and 5th digit amputations with purulent drainage. Left open, packed WTD. -05/07: ID consulted to assist with abx management -Held heparin gtt 05/07 d/t bleeding from Rt foot and Hgb drop - Continue cefepime and vancomycin for now due to concern for surrounding cellulitis. Decreased cefepime to q24 due to cr cl. Follow up vanc trough -05/08: Returned to the OR for LLE debridement of prior amputation site of 3-5th digits. Closed with nylons. Dressing: xeroform, fluffs, ABD, kerlix and hussain. - Home Eliquis resumed on 05/09. Continue ASA. Plan to DC on ASA and Eliquis. - PT/OT/OOB - ID recs: Continue ciprofloxacin 500mg PO q24h + linezolid 600mg PO q12 to complete 3 weeks of antibiotics from 05/06-05/27. No ID follow up needed. ID will follow up. Assessment & Plan (03/01/2025 7:47 AM CDT): Hx PVD. Presents with foot wounds, blackened toes. Started on cefepime and metronidazole at OSH that was discontinued here. - blood cultures NGTD. - US arterial left lower extremity 02/16 reading NC. - x-ray bilateral feet without evidence of OM. - Planned for bilateral lower extremity angiogram, however unable to get space in OR 02/18. - Started Keflex 02/18 stopped 02/23 -Necrotic toes and bilateral heels: paint with Betadine solution and allow to dry. After Betadine dried, may cover heel with foam dressings. Use Ron boots while patient is in bed. -OR on 02/26 for BLE angio and L toe amps - OOB/ PT/OT - therapeutic heparin gtt switched to home eliquis 02/28 - Discharge planning for placement Hypothyroidism 02/15/2025 Assessment & Plan (02/25/2025 6:50 AM CDT): -Cont home dose levothyroxine. Multiple open wounds of foot 02/15/2025 Assessment & Plan (05/12/2025 6:50 AM CDT): 02/26 with selective catheterization of the left PT from a right femoral artery cannulation, serial angioplasty of the left PT, and Amputation of the left foot 3rd and 4th digit tips at the PIP joint space. -05/06: s/p OR for RLE diagnostic angiogram with 2 vessel runoff. Left 3rd, 4th and 5th digit amputations with purulent drainage. Left open, packed WTD. -05/08: s/p OR for LLE debridement of prior amputation site of 3-5th digits. Closed with nylons. Dressing: xeroform, fluffs, ABD, kerlix and hussain. - Activity: non weightbearing to LLE until his follow-up appointment with Dr. Adams. -OR dressing down on 05/10. Picture in chart. Healing appropriately - Pending PT/OT Assessment & Plan (02/27/2025 7:45 AM CDT): Presents From [facility] with multiple wounds to feet and blackened toes - wound RN recommendations: -Left toe amp site, right necrotic toes, and bilateral heels: paint with Betadine solution and allow to dry. After Betadine dried, may cover heel with foam dressings. Please use Ron boots while patient is in bed. Buttock/perineal area: Cleanse area with skin cleanser. Apply a thin application of Antifungal Extra thick to all affected areas. Apply BID and PRN if incontinent. To abdominal panus and groin folds: cleanse areas with soap and water TID. Apply Inter-Dry AG per manufacturers recommendations being sure to leave a 2 inch tail exposed to air. Do NOT use any other CKD (chronic kidney disease) 02/15/2025 Assessment & Plan (05/10/2025 8:42 AM CDT): Baseline creatinine 1.5- 1.7 but 2.15 at discharge last admission. On bumex and metolazone at home. Had GLORIA last admission with Nephrology consultation. Treated with IVF and holding of diuretics. -Cr up to 2.71, from 2.31 on admit. Holding diuretics. S/p gentle hydration. -05/08: Cr elevated to 3.27. -Nephrology consulted 05/08: Etiology of GLORIA is most likely multifactorial with pre-renal injury in the setting of relative hypotension 05/07 AM, contrast- related injury after 05/06 angiogram, and possible vancomycin-induced renal toxicity. Less likely, but could have element of post-angiography acute atheroembolic renal disease. - Hold diuresis - UA and urine lytes sent on 05/08. -Avoid additional nephrotoxins as able. -I&Os, daily BMPs -Monitor Assessment & Plan (02/15/2025 4:18 PM CDT): -Check BMP -Avoid nephrotoxins Atrial fibrillation 02/15/2025 Assessment & Plan (05/10/2025 8:39 AM CDT): S/p DCCV in 08/2024- Prior electrical cardioversion. On eliquis, metoprolol 25 mg BID, and amiodarone 200 mg daily at home -cont amiodarone and metoprolol. Assessment & Plan (02/28/2025 9:05 AM CDT): S/p DCCV in 08/2024- Prior electrical cardioversion. On eliquis and amio at home -cont amiodarone - stopped eliquis, started heparin drip on admission, monitor aPTT - Resumed home eliquis 02/28 Acute on chronic kidney failure 02/15/2025 Assessment & Plan (03/01/2025 6:53 PM CDT): Baseline creatinine 1.5- 1.7, at OSH 2.75 and BUN 90. - Creatinine peak 2.29, now 1.71 (baseline) -Consult to nephrology for management due to ongoing GLORIA. -Held metolazone and bumex for GLORIA. - recommend IV L/R at 100cc/hr for 12 hours (started 02/20) - recommend pre-hydration with IVF 6-8 hours pre-angiogram - strict intake and output - avoid nephrotoxic medications - daily RFP - goal HB>7, Hb.68 (02/21) - given 1 pRBC on 02/22 - Resumed bumex and metolazone when creatinine back to baseline and held again when creatinine bumped - Re-engaged nephrology 02/28 for creatinine bump after resuming home diuretics, appreciate recs -- If discharging over weekend, restart bumex + metolazone 3x weekly on Sunday 03/04 with BMP on Tuesday, 03/08 Immobility 02/15/2025 Assessment & Plan (05/10/2025 8:43 AM CDT): Reduced mobility as restricted to bed since right foot surgery 1.5 years ago. Dependent on wheel chair - Fall precautions and wound care - PT/OT Assessment & Plan (02/28/2025 9:07 AM CDT): Patient restrict to bed since right foot surgery 1.5 years ago. Dependent on wheel chair - fall precautions and wound care. - PT/OT recommend SNF Resolved Problems Problem Noted Date Diagnosed Date Resolved Date Wound of buttock 05/07/2025 05/13/2025 Assessment & Plan (05/10/2025 8:45 AM CDT): -Previous wound care recommendations: -Buttock/perineal area: Cleanse area with skin cleanser. Apply a thin application of Antifungal Extra thick to all affected areas. Apply BID and PRN if incontinent. -To abdominal panus and groin folds: cleanse areas with soap and water TID. Apply Inter-Dry AG per manufacturers recommendations being sure to leave a 2 inch tail exposed to air. Do NOT use any other -05/09: Wound RN consulted for re-evaluation, appreciate recs. Acute blood loss anemia 05/07/202504/21 Assessment & Plan (05/08/2025 10:20 AM CDT): 05/07: s/p 3u PRBC for Hgb of 7.3. Responded well, post transfusion Hgb 8.4 -Monitor daily CBC Gangrene associated with diabetes mellitus 05/04/2025 05/10/2025 Critical limb ischemia of alex th lower extremities 05/02/2025 05/10/2025 Wounds, multiple 02/21/2025 02/21/2025 Diarrhea 02/19/2025 02/21/2025 Assessment & Plan (02/20/2025 10:07 AM CDT): - Patient reports diarrhea following hospital admission. - Norovirus negative. Cdif negative. - Started on imodium. -02/19: Diarrhea stopped Gangrene associated with diabetes mellitus 02/15/2025 02/25/2025 Immunizations Immunization Administration Dates Next Due Influenza, Trivalent, High D ose, Split, Preservative Free, Intramuscular 08/21/2024 Social History Tobacco Use Types Packs/Day Years Used Date Smoking Tobacco: Former Cigarettes Smokeless Tobacco: Never Tobacco Cessation:Counseling Given: Not Answered [facility] Utilities Answer Date Recorded In the past 12 months has th e electric, gas, oil, or water company threatened to shut off services in your home? No 05/06/2025 Social Connection and Isolat ion Panel [NHANES] Answer Date Recorded In a typical week, how many times do you talk on the phone with family, friends, or neighbors? More than three times a week 05/06/2025 How often do you get togethe r with friends or relatives? More than three times a week 05/06/2025 How often do you attend chur ch or confucianism services? Never 05/06/2025 Do you belong to any clubs o r organizations such as christian groups, unions, fraternal or athletic groups, or school groups? No 05/06/2025 How often do you attend meet ings of the clubs or organizations you belong to? Never 05/06/2025 Are you , , di vorced, , never , or living with a partner? 05/06/2025 AUDIT-C Answer Date Recorded Q1: How often do you have a drink containing alcohol? Never 02/26/2025 Q2: How many drinks containi ng alcohol do you have on a typical day when you are drinking? Patient does not drink Q3: How often do you have si x or more drinks on one occasion? Never 02/26/2025 Overall Financial Resource Strain (CARDIA) Answe r Date Recorded How hard is it for you to pa y for the very basics like food, housing, medical care, and heating? Not very hard 05/06/2025 PHQ-2 Answer Date Recorded PHQ-2 Total Score 0 05/06/2025 Hunger Vital Sign Answer Date Recorded Within the past 12 months, y ou worried that your food would run out before you got the money to buy more. Never true 05/06/20 25 Within the past 12 months, t he food you bought just didn't last and you didn't have money to get more. Never true 05/06/2025 PRAPARE - Transportation Answer Date Re corded In the past 12 months, has l ack of transportation kept you from medical appointments or from getting medications? No 04/21 In the past 12 months, has l ack of transportation kept you from meetings, work, or from getting things needed for daily living? No 05/06/2025 Housing Stability Vital Sign Answer Phil e Recorded In the last 12 months, was t here a time when you were not able to pay the mortgage or rent on time? No 05/06/2025 In the past 12 months, how m any times have you moved where you were living? 0 05/06/2025 At any time in the past 12 m [facility], were you homeless or living in a custodial (including now)? No 05/06/2025 Personal Safety Answer Date Recorded Have you ever been in or are you currently in a harmful physical or emotional relationship or is someone making you feel afraid or unsafe? 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 Gender Identity Not on file Sexual Orientation Not on file Last Filed Vital Signs Vital Sign Reading Time Taken Comments Blood Pressure 141/65 05/13/2025 11:42 AM CDT Pulse 72 05/13/2025 11:42 AM CDT Temperature 36.6 C (97.9 F) 05/13/2025 11:42 AM CDT Respiratory Rate 18 05/13/2025 11:4 2 AM CDT Oxygen Saturation 98% 05/13/2025 11: 42 AM CDT Inhaled Oxygen Concentration - - Weight 128.1 kg (282 lb 6.4 oz) 05/04/2025 2:52 PM CDT Height 188 cm (6' 2.02) 05/04/2025 2:52 PM CDT Body Mass Index 36.24 05/04/2025 2:52 PM CDT Plan of Treatment Not on file Procedures Procedure Name Priority Date/Time Associated Diagnosis Comments POCT GLUCOSE DEVICE Routine 05/13/2025 11:42 AM CDT POCT GLUCOSE DEVICE Routine 05/13/2025 7 :48 AM CDT EGFR Timed 05/12/2025 11:23 PM CDT DIFFERENTIAL AUTO Timed 05/12/2025 11:23 PM CDT CBC WITH AUTO DIFFERENTIAL Timed 05/12/2025 11:23 PM CDT BASIC METABOLIC PANEL Timed 05/12/2025 11:23 PM CDT PHOSPHORUS Timed 05/12/2025 11:23 PM CDT POCT GLUCOSE DEVICE Routine 05/12/2025 7 :19 PM CDT POCT GLUCOSE DEVICE Routine 05/12/2025 4 :35 PM CDT POCT GLUCOSE DEVICE Routine 05/12/2025 11:30 AM CDT POCT GLUCOSE DEVICE Routine 05/12/2025 7 :38 AM CDT EGFR Timed 05/11/2025 9:22 PM CDT DIFFERENTIAL AUTO Timed 05/11/2025 9:2 2 PM CDT CBC WITH AUTO DIFFERENTIAL Timed 05/11/2025 9:22 PM CDT BASIC METABOLIC PANEL Timed 05/11/2025 9:22 PM CDT PHOSPHORUS Timed 05/11/2025 9:22 PM CDT POCT GLUCOSE DEVICE Routine 05/11/2025 7 :23 PM CDT POCT GLUCOSE DEVICE Routine 05/11/2025 5 :05 PM CDT POCT GLUCOSE DEVICE Routine 05/11/2025 10:59 AM CDT POCT GLUCOSE DEVICE Routine 05/11/2025 7 :26 AM CDT EGFR Timed 05/10/2025 8:51 PM CDT DIFFERENTIAL AUTO Timed 05/10/2025 8:5 1 PM CDT VANCOMYCIN LEVEL RANDOM Timed 05/10/2025 8:51 PM CDT CBC WITH AUTO DIFFERENTIAL Timed 05/10/2025 8:51 PM CDT BASIC METABOLIC PANEL Timed 05/10/2025 8:51 PM CDT PHOSPHORUS Timed 05/10/2025 8:51 PM CDT POCT GLUCOSE DEVICE Routine 05/10/2025 7 :42 PM CDT POCT GLUCOSE DEVICE Routine 05/10/2025 5 :24 PM CDT POCT GLUCOSE DEVICE Routine 05/10/2025 7 :38 AM CDT CRITICAL RESULT CALLBACK CHEMISTRY Timed 05/09/2025 10:31 PM CDT EGFR Timed 05/09/2025 10:31 PM CDT DIFFERENTIAL AUTO Timed 05/09/2025 10:31 PM CDT VANCOMYCIN LEVEL TROUGH Timed 05/09/2025 10:31 PM CDT IRON PROFILE W/ IBC Routine 05/09/2025 10:31 PM CDT FERRITIN Routine 05/09/2025 10:31 PM CDT CBC WITH AUTO DIFFERENTIAL Timed 05/09/2025 10:31 PM CDT BASIC METABOLIC PANEL Timed 05/09/2025 10:31 PM CDT PHOSPHORUS Timed 05/09/2025 10:31 PM CDT POCT GLUCOSE DEVICE Routine 05/09/2025 7 :30 PM CDT POCT GLUCOSE DEVICE Routine 05/09/2025 4 :59 PM CDT POCT GLUCOSE DEVICE Routine 05/09/2025 12:08 PM CDT EGFR STAT 05/09/2025 10:08 AM CDT DIFFERENTIAL AUTO Routine 05/09/2025 10:08 AM CDT CREATININE STAT 05/09/2025 10:08 AM CDT HEPATIC FUNCTION PANEL STAT 10:08 AM CDT PROTIME-INR STAT 05/09/2025 10:08 AM CDT CBC WITH AUTO DIFFERENTIAL Routine 05/09/2025 10:08 AM CDT POCT GLUCOSE DEVICE Routine 05/09/2025 8 :13 AM CDT VITAMIN D 25 HYDROXY Timed 05/08/2025 11:57 PM CDT EGFR Timed 05/08/2025 11:57 PM CDT DIFFERENTIAL AUTO Timed 05/08/2025 11:57 PM CDT CBC WITH AUTO DIFFERENTIAL Timed 05/08/2025 11:57 PM CDT BASIC METABOLIC PANEL Timed 05/08/2025 11:57 PM CDT PHOSPHORUS Timed 05/08/2025 11:57 PM CDT POCT GLUCOSE DEVICE Routine 05/08/2025 7 :32 PM CDT CREATININE, URINE, RANDOM Routine 05/08/2025 5:22 PM CDT POCT GLUCOSE DEVICE Routine 05/08/2025 4 :58 PM CDT POCT GLUCOSE DEVICE Routine 05/08/2025 2 :16 PM CDT SURGICAL PATHOLOGY Routine 05/08/2025 1: 43 PM CDT Peripheral vascular disease MYCOBACTERIOLOGY AFB CULTURE AND ACID-FAST STAIN Routine 05/08/2025 1:38 PM CDT MYCOLOGY (FUNGAL) CULTURE Routine 05/08/2025 1:38 PM CDT TISSUE AEROBIC AND ANAEROBIC CULTURE AND GRAM STAIN Routine 05/08/2025 1:38 PM CDT POCT GLUCOSE DEVICE Routine 05/08/2025 1 :17 PM CDT DEBRIDEMENT - FOOT 05/08/2025 12:18 PM CDT Peripheral vascular disease Case Notes [email or web address]: Sent email to Dr. Rushing/Angie/Sherry about which case can be scheduled in [place] 305. SR POCT GLUCOSE DEVICE Routine 05/08/2025 11:07 AM CDT URINE CULTURE Routine 05/08/2025 11:02 AM CDT CREATININE, URINE, RANDOM Timed 05/08/2025 9:46 AM CDT UREA NITROGEN, URINE, RANDOM Timed 05/08/2025 9:46 AM CDT CHLORIDE, URINE, RANDOM Timed 05/08/2025 9:46 AM CDT URINALYSIS, MICROSCOPIC ONLY Timed 05/08/2025 9:46 AM CDT POTASSIUM, URINE, RANDOM Timed 05/08/2025 9:46 AM CDT SODIUM, URINE, RANDOM Timed 05/08/2025 9:46 AM CDT URINALYSIS AND REFLEX TO MICROSCOPIC AND CULTURE Timed 05/08/2025 9:46 AM CDT POCT GLUCOSE DEVICE Routine 05/08/2025 8 :21 AM CDT EGFR Timed 05/08/2025 12:54 AM CDT DIFFERENTIAL AUTO Timed 05/08/2025 12:54 AM CDT TYPE AND SCREEN Timed 05/08/2025 12:54 AM CDT CBC WITH AUTO DIFFERENTIAL Timed 05/08/2025 12:54 AM CDT BASIC METABOLIC PANEL Timed 05/08/2025 12:54 AM CDT MAGNESIUM Timed 05/08/2025 12:54 AM CDT PHOSPHORUS Timed 05/08/2025 12:54 AM CDT TRANSFUSE RED BLOOD CELLS Timed 05/07/2025 8:59 PM CDT POCT GLUCOSE DEVICE Routine 05/07/2025 7 :49 PM CDT PREPARE RBC STAT 05/07/2025 7:23 PM CDT DIFFERENTIAL AUTO Timed 05/07/2025 6:5 1 PM CDT CBC WITH AUTO DIFFERENTIAL Timed 05/07/2025 6:51 PM CDT DIFFERENTIAL AUTO Routine 05/07/2025 5:5 4 PM CDT CBC WITH AUTO DIFFERENTIAL Routine 05/07/2025 5:54 PM CDT POCT GLUCOSE DEVICE Routine 05/07/2025 5 :16 PM CDT TRANSFUSE RED BLOOD CELLS Timed 05/07/2025 1:05 PM CDT PREPARE RBC Timed 05/07/2025 12:23 PM CDT POCT GLUCOSE DEVICE Routine 05/07/2025 11:58 AM CDT CBC WITHOUT DIFFERENTIAL Routine 05/07/2025 10:27 AM CDT POCT GLUCOSE DEVICE Routine 05/07/2025 7 :33 AM CDT TRANSFUSE RED BLOOD CELLS Timed 05/07/2025 5:50 AM CDT PREPARE RBC Timed 05/07/2025 5:02 AM CDT CBC WITHOUT DIFFERENTIAL Timed 05/07/2025 4:26 AM CDT VANCOMYCIN LEVEL TROUGH Timed 05/06/2025 10:32 PM CDT EGFR Timed 05/06/2025 10:32 PM CDT DIFFERENTIAL AUTO Timed 05/06/2025 10:32 PM CDT CBC WITH AUTO DIFFERENTIAL Timed 05/06/2025 10:32 PM CDT BASIC METABOLIC PANEL Timed 05/06/2025 10:32 PM CDT MAGNESIUM Timed 05/06/2025 10:32 PM CDT PHOSPHORUS Timed 05/06/2025 10:32 PM CDT POCT GLUCOSE DEVICE Routine 05/06/2025 10:14 PM CDT POCT GLUCOSE DEVICE Routine 05/06/2025 8 :02 PM CDT FL FLUOROSCOPY < 1 HOUR (STATISTICAL ONLY) IP Routine 05/06/2025 7:55 PM CDT CV HYBRID ROOM (DEFAULT ORDERABLE) Routine 05/06/2025 7:53 PM CDT Critical limb ischemia of both lower extremities (HCC) MYCOLOGY (FUNGAL) CULTURE AND STAIN Routine 05/06/2025 7:49 PM CDT TISSUE AEROBIC AND ANAEROBIC CULTURE AND GRAM STAIN Routine 05/06/2025 7:48 PM CDT MYCOLOGY (FUNGAL) CULTURE AND STAIN Routine 05/06/2025 7:47 PM CDT AEROBIC AND ANAEROBIC CULTURE AND GRAM STAIN Routine 05/06/2025 7:47 PM CDT SURGICAL PATHOLOGY Routine 05/06/2025 7: 34 PM CDT Critical limb ischemia of both lower extremities (HCC) POCT GLUCOSE DEVICE Routine 05/06/2025 6 :29 PM CDT IA AN PROCEDURE PLACEHOLDER Routine 05/06/2025 6:18 PM CDT IA AN ELECTIVE ENDOTRACHEAL AIRWAY Routine 05/06/2025 6:18 PM CDT IA AN PROCEDURE PLACEHOLDER Routine 05/06/2025 6:17 PM CDT AMPUTATION TOE 05/06/2025 5:50 PM CDT Critical limb ischemia of both lower extremities (HCC) POCT GLUCOSE DEVICE Routine 05/06/2025 4 :31 PM CDT POCT GLUCOSE DEVICE Routine 05/06/2025 11:48 AM CDT POCT GLUCOSE DEVICE Routine 05/06/2025 7 :49 AM CDT EGFR Timed 05/06/2025 12:43 AM CDT DIFFERENTIAL AUTO Timed 05/06/2025 12:43 AM CDT APTT STAT 05/06/2025 12:43 AM CDT TYPE AND SCREEN Timed 05/06/2025 12:43 AM CDT CBC WITH AUTO DIFFERENTIAL Timed 05/06/2025 12:43 AM CDT BASIC METABOLIC PANEL Timed 05/06/2025 12:43 AM CDT MAGNESIUM Timed 05/06/2025 12:43 AM CDT PHOSPHORUS Timed 05/06/2025 12:43 AM CDT POCT GLUCOSE DEVICE Routine 05/05/2025 8 :07 PM CDT APTT STAT 05/05/2025 6:49 PM CDT POCT GLUCOSE DEVICE Routine 05/05/2025 5 :11 PM CDT POCT GLUCOSE DEVICE Routine 05/05/2025 11:20 AM CDT CRITICAL RESULT CALLBACK HEMATOLOGY STAT 05/05/2025 10:07 AM CDT APTT STAT 05/05/2025 10:07 AM CDT CRITICAL RESULT CALLBACK HEMATOLOGY STAT 05/05/2025 8:26 AM CDT APTT STAT 05/05/2025 8:26 AM CDT POCT GLUCOSE DEVICE Routine 05/05/2025 7 :52 AM CDT APTT STAT 05/05/2025 12:43 AM CDT VANCOMYCIN LEVEL TROUGH Timed 05/04/2025 10:07 PM CDT POCT GLUCOSE DEVICE Routine 05/04/2025 7 :43 PM CDT XR FOOT LEFT 3 OR MORE VIEWS ED Urgent/IP Urgent 05/04/2025 7:03 PM CDT POCT GLUCOSE DEVICE Routine 05/04/2025 5 :24 PM CDT TYPE AND SCREEN Timed 05/04/2025 4:56 PM CDT HEMOGLOBIN A1C Timed 05/04/2025 4:40 PM CDT BASIC METABOLIC PANEL Timed 05/04/2025 4:40 PM CDT EGFR Timed 05/04/2025 4:40 PM CDT DIFFERENTIAL AUTO Timed 05/04/2025 4:4 0 PM CDT APTT STAT 05/04/2025 4:40 PM CDT PROTIME-INR STAT 05/04/2025 4:40 PM CDT CBC WITH AUTO DIFFERENTIAL Timed 05/04/2025 4:40 PM CDT MAGNESIUM Timed 05/04/2025 4:40 PM CDT PHOSPHORUS Timed 05/04/2025 4:40 PM CDT US ARTERIAL DOPPLER LOWER EXTREMITY BILATERAL Routine 05/01/2025 9:08 AM CDT Encounter for surgical aftercare following surgery on the circulatory system Peripheral vascular disease CARDIOLOGY DOCUMENT SCAN Routine 04/15/2025 5:02 PM CDT POCT GLUCOSE DEVICE Routine 03/02/2025 11:49 AM CDT POCT GLUCOSE DEVICE Routine 03/02/2025 7 :59 AM CDT POTASSIUM, WHOLE BLOOD Routine 11:23 PM CDT POCT GLUCOSE DEVICE Routine 03/01/2025 7 :23 PM CDT POCT GLUCOSE DEVICE Routine 03/01/2025 5 :34 PM CDT POCT GLUCOSE DEVICE Routine 03/01/2025 11:46 AM CDT POCT GLUCOSE DEVICE Routine 03/01/2025 7 :24 AM CDT EGFR Routine 02/28/2025 11:35 PM CDT POTASSIUM, WHOLE BLOOD Routine 11:35 PM CDT MAGNESIUM Routine 02/28/2025 11:35 PM CDT PHOSPHORUS Routine 02/28/2025 11:35 PM CDT BASIC METABOLIC PANEL Routine 02/28/2025 11:35 PM CDT CBC WITHOUT DIFFERENTIAL Routine 02/28/2025 11:35 PM CDT XR ABDOMEN AP 1 VIEW IP Routine 02/28/2025 10:26 PM CDT POCT GLUCOSE DEVICE Routine 02/28/2025 7 :12 PM CDT POCT GLUCOSE DEVICE Routine 02/28/2025 4 :39 PM CDT POCT GLUCOSE DEVICE Routine 02/28/2025 11:39 AM CDT POCT GLUCOSE DEVICE Routine 02/28/2025 7 :33 AM CDT APTT STAT 02/28/2025 6:02 AM CDT EGFR Routine 02/27/2025 8:15 PM CDT APTT STAT 02/27/2025 8:15 PM CDT POTASSIUM, WHOLE BLOOD Routine 8:15 PM CDT MAGNESIUM Routine 02/27/2025 8:15 PM CDT PHOSPHORUS Routine 02/27/2025 8:15 PM CDT BASIC METABOLIC PANEL Routine 02/27/2025 8:15 PM CDT CBC WITHOUT DIFFERENTIAL Routine 02/27/2025 8:15 PM CDT POCT GLUCOSE DEVICE Routine 02/27/2025 8 :09 PM CDT POCT GLUCOSE DEVICE Routine 02/27/2025 4 :08 PM CDT APTT STAT 02/27/2025 12:19 PM CDT POTASSIUM LEVEL Timed 02/27/2025 12:19 PM CDT POCT GLUCOSE DEVICE Routine 02/27/2025 11:07 AM CDT POTASSIUM LEVEL Timed 02/27/2025 9:21 AM CDT ECG 12-LEAD Routine 02/27/2025 9:09 AM CDT POCT GLUCOSE DEVICE Routine 02/27/2025 7 :28 AM CDT APTT STAT 02/27/2025 4:38 AM CDT POTASSIUM LEVEL Timed 02/27/2025 4:38 AM CDT POTASSIUM, WHOLE BLOOD STAT 12:06 AM CDT ECG 12-LEAD Routine 02/26/2025 11:03 PM CDT EGFR Routine 02/26/2025 9:44 PM CDT APTT STAT 02/26/2025 9:44 PM CDT MAGNESIUM Routine 02/26/2025 9:44 PM CDT PHOSPHORUS Routine 02/26/2025 9:44 PM CDT BASIC METABOLIC PANEL Routine 02/26/2025 9:44 PM CDT CBC WITHOUT DIFFERENTIAL Routine 02/26/2025 9:44 PM CDT POCT GLUCOSE DEVICE Routine 02/26/2025 7 :17 PM CDT XR ABDOMEN AP 1 VIEW ED Urgent/IP Urgent 02/26/2025 6:34 PM CDT POCT GLUCOSE DEVICE Routine 02/26/2025 5 :04 PM CDT TRANSFUSE RED BLOOD CELLS Timed 02/26/2025 2:30 PM CDT PREPARE RBC Timed 02/26/2025 1:34 PM CDT POCT GLUCOSE DEVICE Routine 02/26/2025 11:57 AM CDT CV HYBRID ROOM (DEFAULT ORDERABLE) Routine 02/26/2025 11:22 AM CDT Gangrene associated with diabetes mellitus (HCC) VASCULAR SURGERY PROCEDURE Routine 02/26/2025 11:22 AM CDT Gangrene associated with diabetes mellitus (HCC) FL FLUOROSCOPY < 1 HOUR IP Routine 02/26/2025 11:16 AM CDT SURGICAL PATHOLOGY Routine 02/26/2025 10:37 AM CDT Gangrene associated with diabetes mellitus (HCC) POCT ACTIVATED CLOTTING TIME, LOW RANGE Routine 02/26/2025 10:06 AM CDT POCT GLUCOSE DEVICE Routine 02/26/2025 10:03 AM CDT POCT ACTIVATED CLOTTING TIME, LOW RANGE Routine 02/26/2025 9:30 AM CDT ANGIOPLASTY - FEMORAL ARTERY 02/26/2025 7:31 AM CDT Gangrene associated with diabetes mellitus (HCC) EGFR Routine 02/26/2025 7:11 AM CDT APTT STAT 02/26/2025 7:11 AM CDT TYPE AND SCREEN Timed 02/26/2025 7:11 AM CDT PROTIME-INR Timed 02/26/2025 7:11 AM CDT MAGNESIUM Routine 02/26/2025 7:11 AM CDT PHOSPHORUS Routine 02/26/2025 7:11 AM CDT BASIC METABOLIC PANEL Routine 02/26/2025 7:11 AM CDT CBC WITHOUT DIFFERENTIAL Routine 02/26/2025 7:11 AM CDT POCT GLUCOSE DEVICE Routine 02/26/2025 6 :18 AM CDT POCT GLUCOSE DEVICE Routine 02/25/2025 7 :20 PM CDT POCT GLUCOSE DEVICE Routine 02/25/2025 5 :29 PM CDT POCT GLUCOSE DEVICE Routine 02/25/2025 11:47 AM CDT POCT GLUCOSE DEVICE Routine 02/25/2025 7 :26 AM CDT EGFR Routine 02/25/2025 1:42 AM CDT APTT STAT 02/25/2025 1:42 AM CDT MAGNESIUM Routine 02/25/2025 1:42 AM CDT PHOSPHORUS Routine 02/25/2025 1:42 AM CDT BASIC METABOLIC PANEL Routine 02/25/2025 1:42 AM CDT CBC WITHOUT DIFFERENTIAL Routine 02/25/2025 1:42 AM CDT POCT GLUCOSE DEVICE Routine 02/24/2025 7 :13 PM CDT APTT STAT 02/24/2025 6:41 PM CDT POCT GLUCOSE DEVICE Routine 02/24/2025 4 :41 PM CDT APTT STAT 02/24/2025 12:23 PM CDT POCT GLUCOSE DEVICE Routine 02/24/2025 11:58 AM CDT POCT GLUCOSE DEVICE Routine 02/24/2025 8 :19 AM CDT POCT GLUCOSE DEVICE Routine 02/24/2025 7 :57 AM CDT POTASSIUM, WHOLE BLOOD STAT 3:52 AM CDT EGFR Routine 02/24/2025 2:09 AM CDT APTT STAT 02/24/2025 2:09 AM CDT MAGNESIUM Routine 02/24/2025 2:09 AM CDT PHOSPHORUS Routine 02/24/2025 2:09 AM CDT BASIC METABOLIC PANEL Routine 02/24/2025 2:09 AM CDT CBC WITHOUT DIFFERENTIAL Routine 02/24/2025 2:09 AM CDT POCT GLUCOSE DEVICE Routine 02/23/2025 7 :33 PM CDT POCT GLUCOSE DEVICE Routine 02/23/2025 5 :08 PM CDT POCT GLUCOSE DEVICE Routine 02/23/2025 11:57 AM CDT POCT GLUCOSE DEVICE Routine 02/23/2025 7 :55 AM CDT EGFR Routine 02/23/2025 3:27 AM CDT APTT STAT 02/23/2025 3:27 AM CDT MAGNESIUM Routine 02/23/2025 3:27 AM CDT PHOSPHORUS Routine 02/23/2025 3:27 AM CDT BASIC METABOLIC PANEL Routine 02/23/2025 3:27 AM CDT CBC WITHOUT DIFFERENTIAL Routine 02/23/2025 3:27 AM CDT POCT GLUCOSE DEVICE Routine 02/22/2025 11:50 PM CDT POCT GLUCOSE DEVICE Routine 02/22/2025 7 :38 PM CDT POCT GLUCOSE DEVICE Routine 02/22/2025 4 :39 PM CDT CBC WITHOUT DIFFERENTIAL STAT 02/22/2025 2:27 PM CDT POCT GLUCOSE DEVICE Routine 02/22/2025 11:01 AM CDT TRANSFUSE RED BLOOD CELLS Timed 02/22/2025 9:56 AM CDT TYPE AND SCREEN Timed 02/22/2025 7:44 AM CDT POCT GLUCOSE DEVICE Routine 02/22/2025 7 :17 AM CDT PREPARE RBC Timed 02/22/2025 6:55 AM CDT EGFR Routine 02/21/2025 9:00 PM CDT APTT STAT 02/21/2025 9:00 PM CDT PHOSPHORUS Routine 02/21/2025 9:00 PM CDT BASIC METABOLIC PANEL Routine 02/21/2025 9:00 PM CDT CBC WITHOUT DIFFERENTIAL Routine 02/21/2025 9:00 PM CDT POCT GLUCOSE DEVICE Routine 02/21/2025 8 :16 PM CDT POCT GLUCOSE DEVICE Routine 02/21/2025 5 :05 PM CDT POCT GLUCOSE DEVICE Routine 02/21/2025 11:44 AM CDT APTT STAT 02/21/2025 11:25 AM CDT POCT GLUCOSE DEVICE Routine 02/21/2025 7 :57 AM CDT APTT STAT 02/21/2025 5:07 AM CDT EGFR Routine 02/20/2025 8:36 PM CDT APTT STAT 02/20/2025 8:36 PM CDT PHOSPHORUS Routine 02/20/2025 8:36 PM CDT BASIC METABOLIC PANEL Routine 02/20/2025 8:36 PM CDT CBC WITHOUT DIFFERENTIAL Routine 02/20/2025 8:36 PM CDT POCT GLUCOSE DEVICE Routine 02/20/2025 7 :34 PM CDT POCT GLUCOSE DEVICE Routine 02/20/2025 5 :00 PM CDT POCT GLUCOSE DEVICE Routine 02/20/2025 11:28 AM CDT APTT STAT 02/20/2025 10:27 AM CDT POCT GLUCOSE DEVICE Routine 02/20/2025 7 :18 AM CDT POCT GLUCOSE DEVICE Routine 02/20/2025 4 :18 AM CDT APTT Routine 02/20/2025 4:12 AM CDT EGFR Routine 02/19/2025 9:15 PM CDT APTT STAT 02/19/2025 9:15 PM CDT PHOSPHORUS Routine 02/19/2025 9:15 PM CDT MAGNESIUM Routine 02/19/2025 9:15 PM CDT BASIC METABOLIC PANEL Routine 02/19/2025 9:15 PM CDT CBC WITHOUT DIFFERENTIAL Routine 02/19/2025 9:15 PM CDT POCT GLUCOSE DEVICE Routine 02/19/2025 9 :03 PM CDT URINALYSIS, MICROSCOPIC ONLY Routine 02/19/2025 6:12 PM CDT CREATININE, URINE, RANDOM Routine 02/19/2025 6:12 PM CDT SODIUM, URINE, RANDOM Routine 02/19/2025 6:12 PM CDT URINALYSIS AND REFLEX TO MICROSCOPIC Routine 02/19/2025 6:12 PM CDT POCT GLUCOSE DEVICE Routine 02/19/2025 5 :13 PM CDT APTT STAT 02/19/2025 1:31 PM CDT CBC WITHOUT DIFFERENTIAL STAT 02/19/2025 1:31 PM CDT PROTIME-INR STAT 02/19/2025 1:31 PM CDT POCT GLUCOSE DEVICE Routine 02/19/2025 12:19 PM CDT US KIDNEY COMPLETE IP Routine 02/19/2025 11:47 AM CDT POCT GLUCOSE DEVICE Routine 02/19/2025 8 :07 AM CDT APTT STAT 02/18/2025 10:52 PM CDT EGFR Routine 02/18/2025 10:52 PM CDT HEPATIC FUNCTION PANEL STAT 10:52 PM CDT PROTIME-INR STAT 02/18/2025 10:52 PM CDT PHOSPHORUS Routine 02/18/2025 10:52 PM CDT MAGNESIUM Routine 02/18/2025 10:52 PM CDT BASIC METABOLIC PANEL Routine 02/18/2025 10:52 PM CDT CBC WITHOUT DIFFERENTIAL Routine 02/18/2025 10:52 PM CDT POCT GLUCOSE DEVICE Routine 02/18/2025 8 :18 PM CDT POCT GLUCOSE DEVICE Routine 02/18/2025 6 :52 PM CDT POCT GLUCOSE DEVICE Routine 02/18/2025 3 :43 PM CDT POCT GLUCOSE DEVICE Routine 02/18/2025 12:08 PM CDT TRANSTHORACIC ECHO (TTE) COMPLETE W DOPPLER/CF W CONTRAST ED Urgent/IP Urgent 02/18/2025 10:01 AM CDT NOROVIRUS PCR Routine 02/18/2025 5:04 AM CDT EGFR Routine 02/18/2025 12:23 AM CDT APTT STAT 02/18/2025 12:23 AM CDT PHOSPHORUS Routine 02/18/2025 12:23 AM CDT MAGNESIUM Routine 02/18/2025 12:23 AM CDT BASIC METABOLIC PANEL Routine 02/18/2025 12:23 AM CDT CBC WITHOUT DIFFERENTIAL Routine 02/18/2025 12:23 AM CDT POCT GLUCOSE DEVICE Routine 02/17/2025 11:01 PM CDT POCT GLUCOSE DEVICE Routine 02/17/2025 5 :45 PM CDT C. DIFFICILE TESTING Routine 02/17/2025 4:27 PM CDT INFECTION PREVENTION VRE CULTURE Routine 02/17/2025 4:26 PM CDT POCT GLUCOSE DEVICE Routine 02/17/2025 2 :06 PM CDT POCT GLUCOSE DEVICE Routine 02/17/2025 8 :33 AM CDT EGFR STAT 02/17/2025 6:41 AM CDT APTT STAT 02/17/2025 6:41 AM CDT CBC WITHOUT DIFFERENTIAL STAT 02/17/2025 6:41 AM CDT BASIC METABOLIC PANEL STAT 02/17/2025 6:41 AM CDT APTT STAT 02/17/2025 1:07 AM CDT LIPID PANEL Routine 02/16/2025 12:16 AM CDT ANGIOPLASTY - FEMORAL ARTERY Gangrene associated with diabetes mellitus (HCC) from Last 3 Months or Most Recently Relevant to Health Maintenance Results * POCT glucose (05/13/2025 11:42 AM CDT) Glucose, POC 154 70 - 199 mg/dL Blood 05/13/2025 11:4 2 AM CDT 05/13/2025 11:42 AM CDT Delilah Adams MD PhD LAB POCT ORDERABLES - DEVICE Final Result Performing Organization Address City/[facility]/ZIP Co de Phone Number [facility] Department [place] [address] * POCT glucose (05/13/2025 7:48 AM CDT) Glucose, POC 139 70 - 199 mg/dL Blood 05/13/2025 7:48 AM CDT 05/13/2025 7:48 AM CDT Delilah Adams MD PhD LAB POCT ORDERABLES - DEVICE Final Result Performing Organization Address City/[facility] Co de Phone Number [facility] Department [place] [address] * (ABNORMAL) eGFR (05/12/2025 11:23 PM CDT) [facility] eGFR 24(L) >=60 mL/min/1. 73 m2 Comment: Interpretive Data Reference Interval Normal >/= 90 mL/min/1.73m2 Mildly decreased* 60 - 89 mL/min/1.73m2 Mildly to moderately decreased 45 - 59 mL/min/1.73m2 Moderately to severely decreased 30 - 44 mL/min/1.73m2 Severely decreased 15 - 29 mL/min/1.73m2 Kidney Failure < 15 mL/min/1.73m2 *Relative to young adult level Estimated glomerular filtration rate is determined by the 2020 CKD-EPI equation recommended by the National [employer] (A Unifying Approach to GFR Estimation: Recommendations of the NKF-ASK Task Force on Reassessing the Inclusion of Race in Diagnosing Kidney Disease, JASN 2020). The CKD-EPI equation should not be used for patients with unstable renal function and has not been validated in children and those over 70. Current interpretive data was last reviewed 2021. Blood 05/12/2025 11:2 3 PM CDT 05/13/2025 12:03 AM CDT us Delilah Adams MD PhD LAB BLOOD ORDERABLES F inal Result [facility] Department [place] [address] * Differential, auto (05/12/2025 11:23 PM CDT) Pathologist [facility] Neutrophil abs 4.74 1.50 - 6.50 K/cumm Imm gran abs 0.05 0.00 - 0.10 K/cumm [facility] Lymphocyte abs 1.27 0.80 - 3.30 K/cumm [facility] Monocyte abs 0.45 0.20 - 0.80 K/cumm [facility] Eosinophil abs 0.32 0.00 - 0.50 K/cumm [facility] Basophil abs 0.07 0.00 - 0.10 K/cumm [facility] Neutrophil pct 68.8 % [facility] Comment: Interpretive Data Percent cell count reference ranges are not reported, since discordance with absolute values may lead to misinterpretation of CBC data. Current Interpretive Data was last revised on 2018. Imm gran pct 0.7 % [facility] Comment: Interpretive Data Percent cell count reference ranges are not reported, since discordance with absolute values may lead to misinterpretation of CBC data. Current Interpretive Data was last revised on 2018. Lymphocyte pct 18.4 % [facility] Comment: Interpretive Data Percent cell count reference ranges are not reported, since discordance with absolute values may lead to misinterpretation of CBC data. Current Interpretive Data was last revised on 2018. Monocyte pct 6.5 % [facility] Comment: Interpretive Data Percent cell count reference ranges are not reported, since discordance with absolute values may lead to misinterpretation of CBC data. Current Interpretive Data was last revised on 2018. Eosinophil pct 4.6 % [facility] Comment: Interpretive Data Percent cell count reference ranges are not reported, since discordance with absolute values may lead to misinterpretation of CBC data. Current Interpretive Data was last revised on 2018. Basophil pct 1.0 % [facility] Comment: Interpretive Data Percent cell count reference ranges are not reported, since discordance with absolute values may lead to misinterpretation of CBC data. Current Interpretive Data was last revised on 2018. Blood 05/12/2025 11:2 3 PM CDT 05/13/2025 12:04 AM CDT us Delilah Adams MD PhD LAB BLOOD ORDERABLES F inal Result [facility] Department [place] [address] * (ABNORMAL) CBC with auto differential (05/12/2025 11:23 PM CDT) WBC 6.90 3.80 - 9.90 K/cumm Hgb 8.6(L) 13.0 - 17.5 g/dL [facility] Hct 27.5(L) 38.9 - 50.3 % [facility] Plt 250 150 - 400 K/cumm [facility] MPV 9.3 9.1 - 12.3 fL [facility] RBC 3.07(L) 4.30 - 5.80 M/cumm [facility] MCV 89.6 81.3 - 96.4 fL [facility] MCH 28.0 27.1 - 33.3 pg [facility] MCHC 31.3(L) 32.3 - 35.7 g/dL [facility] RDW CV 16.4(H) 11.1 - 14.9 % [facility] RDW SD 53.2(H) 35.7 - 48.1 fL [facility] NRBC abs 0.00 0.00 - 0.01 K/cumm [facility] Blood 05/12/2025 11:2 3 PM CDT 05/13/2025 12:04 AM CDT Delilah Adams MD PhD LAB BLOOD ORDERABLES F inal Result Performing Organization Address City/[facility]/ZIP Co de Phone Number [facility] Department [place] [address] * Phosphorus (05/12/2025 11:23 PM CDT) Phosphorus, pl 3.4 2.3 - 4.5 mg/dL Blood 05/12/2025 11:2 3 PM CDT 05/13/2025 12:03 AM CDT Delilah Adams MD PhD LAB BLOOD ORDERABLES F inal Result Performing Organization Address [facility] Co de Phone Number [facility] Department [place] [address] * (ABNORMAL) Basic metabolic panel (05/12/2025 11:23 PM CDT) Sodium 141 135 - 145 mmol/L Potassium, pl 4.4 3.3 - 4.9 mmol/L [facility] Chloride 111(H) 97 - 110 mmol/L [facility] CO2 22 22 - 32 mmol/L [facility] Anion gap 8 2 - 15 mmol/L [facility] BUN 32(H) 6 - 25 mg/dL [facility] Creatinine 2.70(H) 0.80 - 1.30 mg/dL [facility] Glucose 135 70 - 199 mg/dL [facility] Comment: Interpretive Data Fasting glucose >/= 126 mg/dl is diagnostic for diabetes. Fasting is defined as no caloric intake for at least 8 hours. Fasting glucose between 100 mg/dl to 125 mg/dl is diagnostic of prediabetes. In a patient with classic symptoms of hyperglycemia or hyperglycemic crisis, a random glucose >/= 200 mg/dl is diagnostic for diabetes. In the absence of unequivocal hyperglycemia, results should be confirmed by repeat testing. The classification and Diagnosis of Diabetes Diabetes Care 2021; 46: [id number]. Current interpretive data was last revised 2022. Calcium 8.0(L) 8.5 - 10.3 mg/dL [facility] Blood 05/12/2025 11:2 3 PM CDT 05/13/2025 12:03 AM CDT Delilah Adams MD PhD LAB BLOOD ORDERABLES F inal Result Performing Organization Address City/[facility] Co de Phone Number [facility] [employer] [place] [address] * POCT glucose (05/12/2025 7:19 PM CDT) Glucose, POC 129 70 - 199 mg/dL Blood 05/12/2025 7:19 PM CDT 05/12/2025 7:19 PM CDT Delilah Adams MD PhD LAB POCT ORDERABLES - DEVICE Final Result Performing Organization Address City/[place] [facility] Co de Phone Number [facility] [employer] [place] [address] * POCT glucose (05/12/2025 4:35 PM CDT) Glucose, POC 136 70 - 199 mg/dL Blood 05/12/2025 4:3 5 PM CDT 05/12/2025 4:35 PM CDT Delilah Adams MD PhD LAB POCT ORDERABLES - DEVICE Final Result Performing Organization Address City/[facility] Co de Phone Number [facility] [employer] [place] [address] * POCT glucose (05/12/2025 11:30 AM CDT) Glucose, POC 165 70 - 199 mg/dL Blood 05/12/2025 11:3 0 AM CDT 05/12/2025 11:30 AM CDT Delilah Adams MD PhD LAB POCT ORDERABLES - DEVICE Final Result Performing Organization Address City/[facility] Co de Phone Number [facility] Department of [employer] [place] [address] * POCT glucose (05/12/2025 7:38 AM CDT) Glucose, POC 110 70 - 199 mg/dL Blood 05/12/2025 7:38 AM CDT 05/12/2025 7:38 AM CDT Delilah Adams MD PhD LAB POCT ORDERABLES - DEVICE Final Result Performing Organization Address [facility] Co de Phone Number [facility] [place] [address] * (ABNORMAL) eGFR (05/11/2025 9:22 PM CDT) eGFR 28(L) >=60 mL/min/1. 73 m2 Comment: Interpretive Data Reference Interval Normal >/= 90 mL/min/1.73m2 Mildly decreased* 60 - 89 mL/min/1.73m2 Mildly to moderately decreased 45 - 59 mL/min/1.73m2 Moderately to severely decreased 30 - 44 mL/min/1.73m2 Severely decreased 15 - 29 mL/min/1.73m2 Kidney Failure < 15 mL/min/1.73m2 *Relative to young adult level Estimated glomerular filtration rate is determined by the 2020 CKD-EPI equation recommended by the National Kidney Foundation (A Unifying Approach to GFR Estimation: Recommendations of the NKF-ASK Task Force on Reassessing the Inclusion of Race in Diagnosing Kidney Disease, JASN 2020). The CKD-EPI equation should not be used for patients with unstable renal function and has not been validated in children and those over 70. Current interpretive data was last reviewed 2021. Blood 05/11/2025 9:22 PM CDT 05/11/2025 10:01 PM CDT us Delilah Adams MD PhD LAB BLOOD ORDERABLES F inal Result [facility] Department [place] [address] * Differential, auto (05/11/2025 9:22 PM CDT) Neutrophil abs 4.60 1.50 - 6.50 K/cumm Imm gran abs 0.05 0.00 - 0.10 K/cumm [facility] Lymphocyte abs 1.57 0.80 - 3.30 K/cumm [facility] Monocyte abs 0.49 0.20 - 0.80 K/cumm [facility] Eosinophil abs 0.27 0.00 - 0.50 K/cumm [facility] Basophil abs 0.06 0.00 - 0.10 K/cumm [facility] Neutrophil pct 65.3 % [facility] Comment: Interpretive Data Percent cell count reference ranges are not reported, since discordance with absolute values may lead to misinterpretation of CBC data. Current Interpretive Data was last revised on 2018. Imm gran pct 0.7 % [facility] Comment: Interpretive Data Percent cell count reference ranges are not reported, since discordance with absolute values may lead to misinterpretation of CBC data. Current Interpretive Data was last revised on 2018. Lymphocyte pct 22.3 % [facility] Comment: Interpretive Data Percent cell count reference ranges are not reported, since discordance with absolute values may lead to misinterpretation of CBC data. Current Interpretive Data was last revised on 2018. Monocyte pct 7.0 % [facility] Comment: Interpretive Data Percent cell count reference ranges are not reported, since discordance with absolute values may lead to misinterpretation of CBC data. Current Interpretive Data was last revised on 2018. Eosinophil pct 3.8 % [facility] Comment: Interpretive Data Percent cell count reference ranges are not reported, since discordance with absolute values may lead to misinterpretation of CBC data. Current Interpretive Data was last revised on 2018. Basophil pct 0.9 % [facility] Comment: Interpretive Data Percent cell count reference ranges are not reported, since discordance with absolute values may lead to misinterpretation of CBC data. Current Interpretive Data was last revised on 2018. Blood 05/11/2025 9:22 PM CDT 05/11/2025 10:19 PM CDT Delilah Adams MD PhD LAB BLOOD ORDERABLES F inal Result Performing Organization Address [facility]/ZIP Co de Phone Number [facility] Department [place] [address] * (ABNORMAL) CBC with auto differential (05/11/2025 9:22 PM CDT) WBC 7.04 3.80 - 9.90 K/cumm Hgb 8.3(L) 13.0 - 17.5 g/dL [facility] Hct 26.4(L) 38.9 - 50.3 % [facility] Plt 243 150 - 400 K/cumm [facility] MPV 9.8 9.1 - 12.3 fL [facility] RBC 2.96(L) 4.30 - 5.80 M/cumm [facility] MCV 89.2 81.3 - 96.4 fL [facility] MCH 28.0 27.1 - 33.3 pg [facility] MCHC 31.4(L) 32.3 - 35.7 g/dL [facility] RDW CV 16.4(H) 11.1 - 14.9 % [facility] RDW SD 52.9(H) 35.7 - 48.1 fL [facility] NRBC abs 0.00 0.00 - 0.01 K/cumm [facility] Blood 05/11/2025 9:22 PM CDT 05/11/2025 10:19 PM CDT Delilah Adams MD PhD LAB BLOOD ORDERABLES F inal Result Performing Organization Address [facility]/ZIP Co de Phone Number [facility] Department [place] [address] * Phosphorus (05/11/2025 9:22 PM CDT) Phosphorus, pl 3.2 2.3 - 4.5 mg/dL Blood 05/11/2025 9:22 PM CDT 05/11/2025 10:01 PM CDT Delilah Adams MD PhD LAB BLOOD ORDERABLES F inal Result [facility] Department [place] [address] * (ABNORMAL) Basic metabolic panel (05/11/2025 9:22 PM CDT) Pathologist [facility] Sodium 141 135 - 145 mmol/L Potassium, pl 4.2 3.3 - 4.9 mmol/L [facility] Chloride 112(H) 97 - 110 mmol/L [facility] CO2 22 22 - 32 mmol/L [facility] Anion gap 7 2 - 15 mmol/L [facility] BUN 35(H) 6 - 25 mg/dL [facility] Creatinine 2.37(H) 0.80 - 1.30 mg/dL [facility] Glucose 110 70 - 199 mg/dL [facility] Comment: Interpretive Data Fasting glucose >/= 126 mg/dl is diagnostic for diabetes. Fasting is defined as no caloric intake for at least 8 hours. Fasting glucose between 100 mg/dl to 125 mg/dl is diagnostic of prediabetes. In a patient with classic symptoms of hyperglycemia or hyperglycemic crisis, a random glucose >/= 200 mg/dl is diagnostic for diabetes. In the absence of unequivocal hyperglycemia, results should be confirmed by repeat testing. The classification and Diagnosis of Diabetes Diabetes Care 202; 46: S19-S40. Current interpretive data was last revised 2022. Calcium 8.5 8.5 - 10.3 mg/dL [facility] Blood 05/11/2025 9:22 PM CDT 05/11/2025 10:01 PM CDT Delilah Adams MD PhD LAB BLOOD ORDERABLES F inal Result Performing Organization Address City/[facility]/ZIP Co de Phone Number [facility] Department [place] [address] * POCT glucose (05/11/2025 7:23 PM CDT) Glucose, POC 136 70 - 199 mg/dL Blood 05/11/2025 7:23 PM CDT 05/11/2025 7:23 PM CDT Delilah Adams MD PhD LAB POCT ORDERABLES - DEVICE Final Result Performing Organization Address [facility] Co de Phone Number [facility] Department [place] [address] * POCT glucose (05/11/2025 5:05 PM CDT) Glucose, POC 152 70 - 199 mg/dL Blood 05/11/2025 5:05 PM CDT 05/11/2025 5:05 PM CDT us Delilah Adams MD PhD LAB POCT ORDERABLES - DEVICE Final Result Performing Organization Address City/[facility]/ZIP Co de Phone Number [facility] Department [place] [address] * POCT glucose (05/11/2025 10:59 AM CDT) Glucose, POC 129 70 - 199 mg/dL Blood 05/11/2025 10:5 9 AM CDT 05/11/2025 10:59 AM CDT Delilah Adams MD PhD LAB POCT ORDERABLES - DEVICE Final Result Performing Organization Address City/[facility] Co de Phone Number [facility] Department [place] [address] * POCT glucose (05/11/2025 7:26 AM CDT) Pathologist [facility] Glucose, POC 109 70 - 199 mg/dL Blood 05/11/2025 7:26 AM CDT 05/11/2025 7:26 AM CDT Delilah Adams MD PhD LAB POCT ORDERABLES - DEVICE Final Result Performing Organization Address City/[facility]/ZIP [facility] [place] [address] * (ABNORMAL) eGFR (05/10/2025 8:51 PM CDT) [facility] eGFR 26(L) >=60 mL/min/1. 73 m2 Comment: Interpretive Data Reference Interval Normal >/= 90 mL/min/1.73m2 Mildly decreased* 60 - 89 mL/min/1.73m2 Mildly to moderately decreased 45 - 59 mL/min/1.73m2 Moderately to severely decreased 30 - 44 mL/min/1.73m2 Severely decreased 15 - 29 mL/min/1.73m2 Kidney Failure < 15 mL/min/1.73m2 *Relative to young adult level Estimated glomerular filtration rate is determined by the 2020 CKD-EPI equation recommended by the National Kidney Foundation (A Unifying Approach to GFR Estimation: Recommendations of the NKF-ASK Task Force on Reassessing the Inclusion of Race in Diagnosing Kidney Disease, JASN 2020). The CKD-EPI equation should not be used for patients with unstable renal function and has not been validated in children and those over 70. Current interpretive data was last reviewed 2021. Blood 05/10/2025 8:51 PM CDT 05/10/2025 9:48 PM CDT Delilah Adams MD PhD LAB BLOOD ORDERABLES F inal Result [facility] Department [place] [address] * Differential, auto (05/10/2025 8:51 PM CDT) Neutrophil abs 4.54 1.50 - 6.50 K/cumm Imm gran abs 0.07 0.00 - 0.10 K/cumm [facility] Lymphocyte abs 1.45 0.80 - 3.30 K/cumm [facility] Monocyte abs 0.59 0.20 - 0.80 K/cumm [facility] Eosinophil abs 0.22 0.00 - 0.50 K/cumm [facility] Basophil abs 0.08 0.00 - 0.10 K/cumm [facility] Neutrophil pct 65.2 % [facility] Comment: Interpretive Data Percent cell count reference ranges are not reported, since discordance with absolute values may lead to misinterpretation of CBC data. Current Interpretive Data was last revised on 2018. Imm gran pct 1.0 % [facility] Comment: Interpretive Data Percent cell count reference ranges are not reported, since discordance with absolute values may lead to misinterpretation of CBC data. Current Interpretive Data was last revised on 2018. Lymphocyte pct 20.9 % [facility] Comment: Interpretive Data Percent cell count reference ranges are not reported, since discordance with absolute values may lead to misinterpretation of CBC data. Current Interpretive Data was last revised on 2018. Monocyte pct 8.5 % [facility] Comment: Interpretive Data Percent cell count reference ranges are not reported, since discordance with absolute values may lead to misinterpretation of CBC data. Current Interpretive Data was last revised on 2018. Eosinophil pct 3.2 % [facility] Comment: Interpretive Data Percent cell count reference ranges are not reported, since discordance with absolute values may lead to misinterpretation of CBC data. Current Interpretive Data was last revised on 2018. Basophil pct 1.2 % [facility] Comment: Interpretive Data Percent cell count reference ranges are not reported, since discordance with absolute values may lead to misinterpretation of CBC data. Current Interpretive Data was last revised on 2018. Blood 05/10/2025 8:51 PM CDT 05/10/2025 9:48 PM CDT Delilah Adams MD PhD LAB BLOOD ORDERABLES F inal Result Performing Organization Address [facility] de Phone Number [facility] Department [place] [address] * (ABNORMAL) CBC with auto differential (05/10/2025 8:51 PM CDT) Pathologist [facility] WBC 6.95 3.80 - 9.90 K/cumm Hgb 7.9(L) 13.0 - 17.5 g/dL [facility] Hct 25.3(L) 38.9 - 50.3 % [facility] Plt 204 150 - 400 K/cumm [facility] MPV 9.6 9.1 - 12.3 fL [facility] RBC 2.83(L) 4.30 - 5.80 M/cumm [facility] MCV 89.4 81.3 - 96.4 fL [facility] MCH 27.9 27.1 - 33.3 pg [facility] MCHC 31.2(L) 32.3 - 35.7 g/dL [facility] RDW CV 16.2(H) 11.1 - 14.9 % [facility] RDW SD 51.7(H) 35.7 - 48.1 fL [facility] NRBC abs 0.00 0.00 - 0.01 K/cumm [facility] Blood 05/10/2025 8:51 PM CDT 05/10/2025 9:48 PM CDT Delilah Adams MD PhD LAB BLOOD ORDERABLES F inal Result Performing Organization Address [facility] Co de Phone Number [facility] Department [place] [address] * Phosphorus (05/10/2025 8:51 PM CDT) Pathologist [facility] Phosphorus, pl 3.2 2.3 - 4.5 mg/dL Blood 05/10/2025 8:51 PM CDT 05/10/2025 9:48 PM CDT Delilah Adams MD PhD LAB BLOOD ORDERABLES F inal Result Performing Organization Address [facility] Co de Phone Number [facility] [place] [address] * Vancomycin level random (05/10/2025 8:51 PM CDT) Vancomycin random 38.0 mcg/mL Comment: Interpretive Data No reference ranges have been established for random drug levels. Current Interpretive Data was last revised on 2021. Blood 05/10/2025 8:51 PM CDT 05/10/2025 9:48 PM CDT Rox Choi MANAGER [employer]ER[employer] DIRECT[employer] LAB BLOOD ORDERABLES Final Result Performing Organization Address [facility] de Phone Number [facility] [place] [address] * (ABNORMAL) Basic metabolic panel (05/10/2025 8:51 PM CDT) Pathologist [facility] Sodium 141 135 - 145 mmol/L Potassium, pl 4.0 3.3 - 4.9 mmol/L [facility] Chloride 111(H) 97 - 110 mmol/L [facility] CO2 23 22 - 32 mmol/L [facility] Anion gap 7 2 - 15 mmol/L [facility] BUN 44(H) 6 - 25 mg/dL [facility] Creatinine 2.53(H) 0.80 - 1.30 mg/dL [facility] Glucose 114 70 - 199 mg/dL [facility] Comment: Interpretive Data Fasting glucose >/= 126 mg/dl is diagnostic for diabetes. Fasting is defined as no caloric intake for at least 8 hours. Fasting glucose between 100 mg/dl to 125 mg/dl is diagnostic of prediabetes. In a patient with classic symptoms of hyperglycemia or hyperglycemic crisis, a random glucose >/= 200 mg/dl is diagnostic for diabetes. In the absence of unequivocal hyperglycemia, results should be confirmed by repeat testing. The classification and Diagnosis of Diabetes Diabetes Care 2021; 46: S19-S40. Current interpretive data was last revised 2022. Calcium 8.1(L) 8.5 - 10.3 mg/dL [facility] Blood 05/10/2025 8:51 PM CDT 05/10/2025 9:48 PM CDT Delilah Adams MD PhD LAB BLOOD ORDERABLES F inal Result Performing Organization Address City/[facility]/ZIP Co de Phone Number [facility] Department of [employer] [place] [address] * POCT glucose (05/10/2025 7:42 PM CDT) Glucose, POC 133 70 - 199 mg/dL Blood 05/10/2025 7:42 PM CDT 05/10/2025 7:42 PM CDT Delilah Adams MD PhD LAB POCT ORDERABLES - DEVICE Final Result Performing Organization Address [facility] Co de Phone Number [facility] Department of [employer] [place] [address] * POCT glucose (05/10/2025 5:24 PM CDT) Glucose, POC 141 70 - 199 mg/dL Blood 05/10/2025 5:24 PM CDT 05/10/2025 5:24 PM CDT Delilah Adams MD PhD LAB POCT ORDERABLES - DEVICE Final Result Performing Organization Address [facility] Co de Phone Number [facility] [place] [address] * POCT glucose (05/10/2025 7:38 AM CDT) Glucose, POC 122 70 - 199 mg/dL Blood 05/10/2025 7:38 AM CDT 05/10/2025 7:38 AM CDT Delilah Adams MD PhD LAB POCT ORDERABLES - DEVICE Final Result Performing Organization Address City/[facility]/ZIP Co de Phone Number [facility] Department of [employer] [place] [address] * (ABNORMAL) eGFR (05/09/2025 10:31 PM CDT) Pathologist [facility] eGFR 24(L) >=60 mL/min/1. 73 m2 Comment: Interpretive Data Reference Interval Normal >/= 90 mL/min/1.73m2 Mildly decreased* 60 - 89 mL/min/1.73m2 Mildly to moderately decreased 45 - 59 mL/min/1.73m2 Moderately to severely decreased 30 - 44 mL/min/1.73m2 Severely decreased 15 - 29 mL/min/1.73m2 Kidney Failure < 15 mL/min/1.73m2 *Relative to young adult level Estimated glomerular filtration rate is determined by the 2020 CKD-EPI equation recommended by the National Kidney Foundation (A Unifying Approach to GFR Estimation: Recommendations of the NKF-ASK Task Force on Reassessing the Inclusion of Race in Diagnosing Kidney Disease, JASN 2020). The CKD-EPI equation should not be used for patients with unstable renal function and has not been validated in children and those over 70. Current interpretive data was last reviewed 2021. Blood 05/09/2025 10:3 1 PM CDT 05/09/2025 10:47 PM CDT us Delilah Adams MD PhD LAB BLOOD ORDERABLES F inal Result Performing Organization Address City/[facility]/ZIP Co de Phone Number [facility] Department [place] [address] * Differential, auto (05/09/2025 10:31 PM CDT) Neutrophil abs 4.81 1.50 - 6.50 K/cumm Imm gran abs 0.08 0.00 - 0.10 K/cumm [facility] Lymphocyte abs 1.39 0.80 - 3.30 K/cumm [facility] Monocyte abs 0.56 0.20 - 0.80 K/cumm [facility] Eosinophil abs 0.23 0.00 - 0.50 K/cumm [facility] Basophil abs 0.06 0.00 - 0.10 K/cumm [facility] Neutrophil pct 67.5 % [facility] Comment: Interpretive Data Percent cell count reference ranges are not reported, since discordance with absolute values may lead to misinterpretation of CBC data. Current Interpretive Data was last revised on 2018. Imm gran pct 1.1 % [facility] Comment: Interpretive Data Percent cell count reference ranges are not reported, since discordance with absolute values may lead to misinterpretation of CBC data. Current Interpretive Data was last revised on 2018. Lymphocyte pct 19.5 % [facility] Comment: Interpretive Data Percent cell count reference ranges are not reported, since discordance with absolute values may lead to misinterpretation of CBC data. Current Interpretive Data was last revised on 2018. Monocyte pct 7.9 % [facility] Comment: Interpretive Data Percent cell count reference ranges are not reported, since discordance with absolute values may lead to misinterpretation of CBC data. Current Interpretive Data was last revised on 2018. Eosinophil pct 3.2 % [facility] Comment: Interpretive Data Percent cell count reference ranges are not reported, since discordance with absolute values may lead to misinterpretation of CBC data. Current Interpretive Data was last revised on 2018. Basophil pct 0.8 % [facility] Comment: Interpretive Data Percent cell count reference ranges are not reported, since discordance with absolute values may lead to misinterpretation of CBC data. Current Interpretive Data was last revised on 2018. Blood 05/09/2025 10:3 1 PM CDT 05/09/2025 10:48 PM CDT Delilah Adams MD PhD LAB BLOOD ORDERABLES F inal Result Performing Organization Address [facility] [place] [address] * Critical Result Callback Chemistry (05/09/2025 10:31 PM CDT) Date Notified [id number] Time Notified [id number] [facility] TestName Vancomycin Faraz [facility] Called/Read Back [place] Rigo [facility] Credentials RN [facility] Called By eloy [facility] Blood 05/09/2025 10:3 1 PM CDT 05/09/2025 10:47 PM CDT Stephanie Montalvo MANAGER E[employer]MER [employer]ERAL DIRECTOR LAB BLOOD ORDERABLES Final Re sult Performing Organization Address [facility] Co de Phone Number [facility] [place] [address] * (ABNORMAL) Iron profile w/ IBC (05/09/2025 10:31 PM CDT) Pathologist [facility] Iron 14(L) 50 - 150 mcg/dL TIBC 180(L) 250 - 400 mcg/dL [facility] Transferrin saturation 8(L) 20 - 50 % [facility] Blood 05/09/2025 10:3 1 PM CDT 05/09/2025 10:47 PM CDT Stephanie Montalvo MANAGER E[employer]ALMER [employer]ERAL DIRECTOR LAB BLOOD ORDERABLES Final Re sult Performing Organization Address City/[facility] Co de Phone Number [facility] [place] [address] * (ABNORMAL) CBC with auto differential (05/09/2025 10:31 PM CDT) WBC 7.13 3.80 - 9.90 K/cumm Hgb 7.9(L) 13.0 - 17.5 g/dL [facility] Hct 25.0(L) 38.9 - 50.3 % [facility] Plt 198 150 - 400 K/cumm [facility] MPV 9.3 9.1 - 12.3 fL [facility] RBC 2.84(L) 4.30 - 5.80 M/cumm [facility] MCV 88.0 81.3 - 96.4 fL [facility] MCH 27.8 27.1 - 33.3 pg [facility] MCHC 31.6(L) 32.3 - 35.7 g/dL [facility] RDW CV 15.9(H) 11.1 - 14.9 % [facility] RDW SD 51.5(H) 35.7 - 48.1 fL [facility] NRBC abs 0.00 0.00 - 0.01 K/cumm [facility] Blood 05/09/2025 10:3 1 PM CDT 05/09/2025 10:48 PM CDT Delilah Adams MD PhD LAB BLOOD ORDERABLES F inal Result [facility] Department of [employer] [place] [address] * Phosphorus (05/09/2025 10:31 PM CDT) [facility] Phosphorus, pl 3.1 2.3 - 4.5 mg/dL Blood 05/09/2025 10:3 1 PM CDT 05/09/2025 10:47 PM CDT Delilah Adams MD PhD LAB BLOOD ORDERABLES F inal Result [facility] [place] [address] * Ferritin (05/09/2025 10:31 PM CDT) [facility] Ferritin 98 30 - 400 ng/mL Blood 05/09/2025 10:3 1 PM CDT 05/09/2025 10:47 PM CDT [facility] MANAGER [employer] DIRECTOR LAB BLOOD ORDERABLES Final Re sult Performing Organization Address [facility] Co de Phone Number [facility] [place] [address] * (ABNORMAL) Vancomycin level trough Draw before starting 2300 vanc dose (05/09/2025 10:31 PM CDT) Pathologist [facility] Vancomycin trough 47.1(C) 10.0 - 20.0 mcg/mL Comment:Reviewed Blood 05/09/2025 10:3 1 PM CDT 05/09/2025 10:47 PM CDT Narrative [facility] - 05/09/2025 11:33 PM CDT Draw before starting 2300 vanc dose [facility] MANAGER EMBALMER FUNERAL DIRECTOR LAB BLOOD ORDERABLES Final Re sult Performing Organization Address [facility] [place] [address] * (ABNORMAL) Basic metabolic panel (05/09/2025 10:31 PM CDT) Pathologist [facility] Sodium 140 135 - 145 mmol/L Potassium, pl 4.1 3.3 - 4.9 mmol/L [facility] Chloride 109 97 - 110 mmol/L [facility] CO2 22 22 - 32 mmol/L [facility] Anion gap 9 2 - 15 mmol/L [facility] BUN 47(H) 6 - 25 mg/dL [facility] Creatinine 2.72(H) 0.80 - 1.30 mg/dL [facility] Glucose 146 70 - 199 mg/dL [facility] Comment: Interpretive Data Fasting glucose >/= 126 mg/dl is diagnostic for diabetes. Fasting is defined as no caloric intake for at least 8 hours. Fasting glucose between 100 mg/dl to 125 mg/dl is diagnostic of prediabetes. In a patient with classic symptoms of hyperglycemia or hyperglycemic crisis, a random glucose >/= 200 mg/dl is diagnostic for diabetes. In the absence of unequivocal hyperglycemia, results should be confirmed by repeat testing. The classification and Diagnosis of Diabetes Diabetes Care 2021; 46: S19-S40. Current interpretive data was last revised 2022. Calcium 8.3(L) 8.5 - 10.3 mg/dL [facility] Blood 05/09/2025 10:3 1 PM CDT 05/09/2025 10:47 PM CDT Delilah Adams MD PhD LAB BLOOD ORDERABLES F inal Result Performing Organization Address City/[facility]/ZIP Co de Phone Number [facility] [employer] [place] [address] * POCT glucose (05/09/2025 7:30 PM CDT) Glucose, POC 177 70 - 199 mg/dL Blood 05/09/2025 7:30 PM CDT 05/09/2025 7:30 PM CDT Result [facility] Delilah Adams MD PhD LAB POCT ORDERABLES - DEVICE Final Result Performing Organization Address [facility] Co de Phone Number [facility] [employer] [place] [address] * POCT glucose (05/09/2025 4:59 PM CDT) Glucose, POC 199 70 - 199 mg/dL Blood 05/09/2025 4:59 PM CDT 05/09/2025 4:59 PM CDT Result [facility] Delilah Adams MD PhD LAB POCT ORDERABLES - DEVICE Final Result Performing Organization Address City/[facility]/ZIP Co de Phone Number [facility] Department of [employer] [place] [address] * POCT glucose (05/09/2025 12:08 PM CDT) Glucose, POC 155 70 - 199 mg/dL Blood 05/09/2025 12:0 8 PM CDT 05/09/2025 12:08 PM CDT Delilah Adams MD PhD LAB POCT ORDERABLES - DEVICE Final Result Performing Organization Address City/[facility]/ZIP Co de Phone Number [facility] [place] [address] * (ABNORMAL) eGFR (05/09/2025 10:08 AM CDT) Pathologist [facility] eGFR 25(L) >=60 mL/min/1. 73 m2 Comment: Interpretive Data Reference Interval Normal >/= 90 mL/min/1.73m2 Mildly decreased* 60 - 89 mL/min/1.73m2 Mildly to moderately decreased 45 - 59 mL/min/1.73m2 Moderately to severely decreased 30 - 44 mL/min/1.73m2 Severely decreased 15 - 29 mL/min/1.73m2 Kidney Failure < 15 mL/min/1.73m2 *Relative to young adult level Estimated glomerular filtration rate is determined by the 2020 CKD-EPI equation recommended by the National Kidney Foundation (A Unifying Approach to GFR Estimation: Recommendations of the NKF-ASK Task Force on Reassessing the Inclusion of Race in Diagnosing Kidney Disease, JASN 2020). The CKD-EPI equation should not be used for patients with unstable renal function and has not been validated in children and those over 70. Current interpretive data was last reviewed 2021. Blood 05/09/2025 10:0 8 AM CDT 05/09/2025 10:49 AM CDT us Stephanie Montalvo MANAGER EMBALMER FUNERAL DIRECTOR LAB BLOOD ORDERABLES Final Re sult Performing Organization Address City/[facility]/ZIP Co de Phone Number [facility] Department of [employer] [place] [address] * Differential, auto (05/09/2025 10:08 AM CDT) Neutrophil abs 4.96 1.50 - 6.50 K/cumm Imm gran abs 0.09 0.00 - 0.10 K/cumm [facility] Lymphocyte abs 1.21 0.80 - 3.30 K/cumm [facility] Monocyte abs 0.57 0.20 - 0.80 K/cumm [facility] Eosinophil abs 0.26 0.00 - 0.50 K/cumm [facility] Basophil abs 0.08 0.00 - 0.10 K/cumm [facility] Neutrophil pct 69.2 % [facility] Comment: Interpretive Data Percent cell count reference ranges are not reported, since discordance with absolute values may lead to misinterpretation of CBC data. Current Interpretive Data was last revised on 2018. Imm gran pct 1.3 % [facility] Comment: Interpretive Data Percent cell count reference ranges are not reported, since discordance with absolute values may lead to misinterpretation of CBC data. Current Interpretive Data was last revised on 2018. Lymphocyte pct 16.9 % [facility] Comment: Interpretive Data Percent cell count reference ranges are not reported, since discordance with absolute values may lead to misinterpretation of CBC data. Current Interpretive Data was last revised on 2018. Monocyte pct 7.9 % [facility] Comment: Interpretive Data Percent cell count reference ranges are not reported, since discordance with absolute values may lead to misinterpretation of CBC data. Current Interpretive Data was last revised on 2018. Eosinophil pct 3.6 % [facility] Comment: Interpretive Data Percent cell count reference ranges are not reported, since discordance with absolute values may lead to misinterpretation of CBC data. Current Interpretive Data was last revised on 2018. Basophil pct 1.1 % [facility] Comment: Interpretive Data Percent cell count reference ranges are not reported, since discordance with absolute values may lead to misinterpretation of CBC data. Current Interpretive Data was last revised on 2018. Blood 05/09/2025 10:0 8 AM CDT 05/09/2025 10:48 AM CDT [facility] MANAGER EMBALMER FUNERAL DIRECTOR LAB BLOOD ORDERABLES Final Re sult Performing Organization Address [facility] Co de Phone Number [facility] Department [place] [address] * (ABNORMAL) CBC with auto differential (05/09/2025 10:08 AM CDT) WBC 7.17 3.80 - 9.90 K/cumm Hgb 8.3(L) 13.0 - 17.5 g/dL [facility] Hct 26.3(L) 38.9 - 50.3 % [facility] Plt 211 150 - 400 K/cumm [facility] MPV 9.6 9.1 - 12.3 fL [facility] RBC 3.00(L) 4.30 - 5.80 M/cumm [facility] MCV 87.7 81.3 - 96.4 fL [facility] MCH 27.7 27.1 - 33.3 pg [facility] MCHC 31.6(L) 32.3 - 35.7 g/dL [facility] RDW CV 15.9(H) 11.1 - 14.9 % [facility] RDW SD 50.9(H) 35.7 - 48.1 fL [facility] NRBC abs 0.00 0.00 - 0.01 K/cumm [facility] Blood 05/09/2025 10:0 8 AM CDT 05/09/2025 10:48 AM CDT Stephanie Talavera MANAGER EMBALMER FUNERAL DIRECTOR LAB BLOOD ORDERABLES Final Re sult [facility] Department [place] [address] * Protime-INR (05/09/2025 10:08 AM CDT) PT 12.9 9.7 - 13.0 sec INR 1.19 0.90 - 1.20 [facility] Comment: Interpretive data Oral anticoagulant therapeutic ranges: Venous thromboembolism prophylaxis or treatment: 2.0-3.0 CARDIOLOGY Standard range: 2.0-3.0 High-intensity range: 2.5-3.5 Refer to indication-specific guidelines for appropriate target ranges for prosthetic heart valve replacement. Current interpretive data was last revised on 2019. Blood 05/09/2025 10:0 8 AM CDT 05/09/2025 10:51 AM CDT Narrative [facility] - 05/09/2025 10:58 AM CDT Baseline prior to apixaban initiation. [facility] BLOOD ORDERABLES Final Re sult Performing Organization Address City/[facility] Co de Phone Number [facility] Department [place] [address] * (ABNORMAL) Creatinine (05/09/2025 10:08 AM CDT) Creatinine 2.66(H) 0.80 - 1.30 mg/dL Blood 05/09/2025 10:0 8 AM CDT 05/09/2025 10:49 AM CDT Narrative [facility] - 05/09/2025 11:17 AM CDT Baseline prior to apixaban initiation. [facility] LAB BLOOD ORDERABLES Final Re sult Performing Organization Address City/[facility]/ZIP Co de Phone Number [facility] [employer] [place] [address] * (ABNORMAL) Hepatic function panel (05/09/2025 10:08 AM CDT) Bilirubin, total 0.2 0.1 - 1.2 mg/dL Bilirubin, direct <0.2 0.1 - 0.3 mg/dL [facility] Protein, pl 6.7 6.5 - 8.5 g/dL [facility] Albumin 3.2(L) 3.5 - 5.0 g/dL [facility] Alk phos 89 40 - 130 Units/L [facility] ALT 6(L) 7 - 55 Units/L [facility] AST 18 10 - 50 Units/L [facility] Blood 05/09/2025 10:0 8 AM CDT 05/09/2025 10:49 AM CDT Narrative [facility] - 05/09/2025 11:38 AM CDT Baseline prior to apixaban initiation. Stephanie Montalvo MANAGER EMBALMER FUNERAL DIRECTOR LAB BLOOD ORDERABLES Final Re sult [facility] Department [place] [address] * POCT glucose (05/09/2025 8:13 AM CDT) Glucose, POC 80 70 - 199 mg/dL Blood 05/09/2025 8:13 AM CDT 05/09/2025 8:13 AM CDT Delilah Adams MD PhD LAB POCT ORDERABLES - DEVICE Final Result Performing Organization Address City/[facility]/ZIP Co de Phone Number [facility] Department of [employer] [place] [address] * (ABNORMAL) eGFR (05/08/2025 11:57 PM CDT) eGFR 23(L) >=60 mL/min/1. 73 m2 Comment: Interpretive Data Reference Interval Normal >/= 90 mL/min/1.73m2 Mildly decreased* 60 - 89 mL/min/1.73m2 Mildly to moderately decreased 45 - 59 mL/min/1.73m2 Moderately to severely decreased 30 - 44 mL/min/1.73m2 Severely decreased 15 - 29 mL/min/1.73m2 Kidney Failure < 15 mL/min/1.73m2 *Relative to young adult level Estimated glomerular filtration rate is determined by the 2020 CKD-EPI equation recommended by the National Kidney Foundation (A Unifying Approach to GFR Estimation: Recommendations of the NKF-ASK Task Force on Reassessing the Inclusion of Race in Diagnosing Kidney Disease, JASN 202). The CKD-EPI equation should not be used for patients with unstable renal function and has not been validated in children and those over 70. Current interpretive data was last reviewed 2021. Blood 05/08/2025 11:5 7 PM CDT 05/09/2025 12:36 AM CDT us Delilah Adams MD PhD LAB BLOOD ORDERABLES F inal Result [facility] Department [place] [address] * Differential, auto (05/08/2025 11:57 PM CDT) Neutrophil abs 4.67 1.50 - 6.50 K/cumm Imm gran abs 0.10 0.00 - 0.10 K/cumm [facility] Lymphocyte abs 1.43 0.80 - 3.30 K/cumm [facility] Monocyte abs 0.52 0.20 - 0.80 K/cumm [facility] Eosinophil abs 0.28 0.00 - 0.50 K/cumm [facility] Basophil abs 0.07 0.00 - 0.10 K/cumm [facility] Neutrophil pct 66.0 % [facility] Comment: Interpretive Data Percent cell count reference ranges are not reported, since discordance with absolute values may lead to misinterpretation of CBC data. Current Interpretive Data was last revised on 2018. Imm gran pct 1.4 % [facility] Comment: Interpretive Data Percent cell count reference ranges are not reported, since discordance with absolute values may lead to misinterpretation of CBC data. Current Interpretive Data was last revised on 2018. Lymphocyte pct 20.2 % [facility] Comment: Interpretive Data Percent cell count reference ranges are not reported, since discordance with absolute values may lead to misinterpretation of CBC data. Current Interpretive Data was last revised on 2018. Monocyte pct 7.4 % [facility] Comment: Interpretive Data Percent cell count reference ranges are not reported, since discordance with absolute values may lead to misinterpretation of CBC data. Current Interpretive Data was last revised on 2018. Eosinophil pct 4.0 % [facility] Comment: Interpretive Data Percent cell count reference ranges are not reported, since discordance with absolute values may lead to misinterpretation of CBC data. Current Interpretive Data was last revised on 2018. Basophil pct 1.0 % [facility] Comment: Interpretive Data Percent cell count reference ranges are not reported, since discordance with absolute values may lead to misinterpretation of CBC data. Current Interpretive Data was last revised on 2018. Blood 05/08/2025 11:5 7 PM CDT 05/09/2025 12:39 AM CDT us Delilah Adams MD PhD LAB BLOOD ORDERABLES F inal Result [facility] Department [place] [address] * (ABNORMAL) CBC with auto differential (05/08/2025 11:57 PM CDT) WBC 7.07 3.80 - 9.90 K/cumm Hgb 7.8(L) 13.0 - 17.5 g/dL [facility] Hct 24.7(L) 38.9 - 50.3 % [facility] Plt 208 150 - 400 K/cumm [facility] MPV 9.5 9.1 - 12.3 fL [facility] RBC 2.81(L) 4.30 - 5.80 M/cumm [facility] MCV 87.9 81.3 - 96.4 fL [facility] MCH 27.8 27.1 - 33.3 pg [facility] MCHC 31.6(L) 32.3 - 35.7 g/dL [facility] RDW CV 15.8(H) 11.1 - 14.9 % [facility] RDW SD 50.4(H) 35.7 - 48.1 fL [facility] NRBC abs 0.00 0.00 - 0.01 K/cumm [facility] Blood 05/08/2025 11:5 7 PM CDT 05/09/2025 12:39 AM CDT Result [facility] Delilah Adams MD PhD LAB BLOOD ORDERABLES F inal Result [facility] [employer] [place] [address] * (ABNORMAL) Vitamin D 25 hydroxy (05/08/2025 11:57 PM CDT) Pathologist [facility] Vitamin D 25-OH 20(L) 30 - 80 ng/mL Blood 05/08/2025 11:5 7 PM CDT 05/09/2025 12:36 AM CDT Result [facility] Delilah Adams MD PhD LAB BLOOD ORDERABLES F inal Result Performing Organization Address City/[facility]/ZIP Co de Phone Number [facility] [employer] [place] [address] * Phosphorus (05/08/2025 11:57 PM CDT) [facility] Phosphorus, pl 3.8 2.3 - 4.5 mg/dL Blood 05/08/2025 11:5 7 PM CDT 05/09/2025 12:36 AM CDT Result [facility] Delilah Adams MD PhD LAB BLOOD ORDERABLES F inal Result [facility] [employer] [place] [address] * (ABNORMAL) Basic metabolic panel (05/08/2025 11:57 PM CDT) [facility] Sodium 141 135 - 145 mmol/L Potassium, pl 3.9 3.3 - 4.9 mmol/L [facility] Chloride 107 97 - 110 mmol/L [facility] CO2 23 22 - 32 mmol/L [facility] Anion gap 11 2 - 15 mmol/L [facility] BUN 51(H) 6 - 25 mg/dL [facility] Creatinine 2.84(H) 0.80 - 1.30 mg/dL [facility] Glucose 100 70 - 199 mg/dL [facility] Comment: Interpretive Data Fasting glucose >/= 126 mg/dl is diagnostic for diabetes. Fasting is defined as no caloric intake for at least 8 hours. Fasting glucose between 100 mg/dl to 125 mg/dl is diagnostic of prediabetes. In a patient with classic symptoms of hyperglycemia or hyperglycemic crisis, a random glucose >/= 200 mg/dl is diagnostic for diabetes. In the absence of unequivocal hyperglycemia, results should be confirmed by repeat testing. The classification and Diagnosis of Diabetes Diabetes Care 202; 46: S19-S40. Current interpretive data was last revised 2022. Calcium 8.5 8.5 - 10.3 mg/dL [facility] Blood 05/08/2025 11:5 7 PM CDT 05/09/2025 12:36 AM CDT us Delilah Adams MD PhD LAB BLOOD ORDERABLES F inal Result Performing Organization Address City/[facility]/ZIP Co de Phone Number [facility] Department [place] [address] * POCT glucose (05/08/2025 7:32 PM CDT) [facility] Glucose, POC 127 70 - 199 mg/dL Blood 05/08/2025 7:32 PM CDT 05/08/2025 7:32 PM CDT us Delilah Adams MD PhD LAB POCT ORDERABLES - DEVICE Final Result [facility] Department [place] [address] * Creatinine, urine, random (05/08/2025 5:22 PM CDT) Creatinine Ur 27.1 mg/dL Comment: Interpretive Data No reference range established. Current interpretive data was last revised 2019. Urine 05/08/2025 5:22 PM CDT 05/08/2025 6:36 PM CDT Stephanie Montalvo MANAGER EMBALMER FUNERAL DIRECTOR LAB URINE ORDERABLES Final Re sult Performing Organization Address [facility] Co de Phone Number [facility] [place] [address] * POCT glucose (05/08/2025 4:58 PM CDT) Glucose, POC 113 70 - 199 mg/dL Blood 05/08/2025 4:58 PM CDT 05/08/2025 4:58 PM CDT Delilah Adams MD PhD LAB POCT ORDERABLES - DEVICE Final Result Performing Organization Address [facility] de Phone Number [facility] [employer] [place] [address] * POCT glucose (05/08/2025 2:16 PM CDT) Glucose, POC 110 70 - 199 mg/dL Blood 05/08/2025 2:16 PM CDT 05/08/2025 2:16 PM CDT Delilah Adams MD PhD LAB POCT ORDERABLES - DEVICE Final Result Performing Organization Address [facility] de Phone Number [facility] [employer] [place] [address] * Surgical pathology (05/08/2025 1:43 PM CDT) Tissue (Soft Tissue, debridement) 05/08/2025 1:43 PM CDT Narrative [facility] - 05/15/2025 10:47 AM CDT EPIC results best viewed via link to PDF [facility] Rufina Mendoza Laboratory of Surgical Pathology [facility] [place] [address] Note to Patients: This report may contain a detailed description of human tissue sent by a health care provider to the laboratory for pathologic evaluation. The content of this report is essential for diagnosis and may provide important critical findings. This information may be unfamiliar to patients to review without a medical professional present. It is advised that the patient review this report in the presence of a health care provider who can answer questions and explain the details. SURGICAL PATHOLOGY REPORT FINAL Patient Name: GREGORY KAT Gender: M : 1955 (Age: 70) Address: [address] [place] [address] Hospital #: [id number] Taken:05/08/2025 Received:05/08/2025 Reported: 05/15/2025 Patient Type: [facility] Inpatient Service: Vascular Location: [place] [address] Physician(s): Johnny Velasquez M.D. Diagnosis: Bone, left foot, excision - Bone with medullary fibrosis - Negative for acute osteomyelitis alpo/05/14/2025 16:00 By this signature, I attest that the above diagnosis is based upon my personal examination of the slides(and/or other material indicated in the diagnosis). Job Mcgowan M.D. Report Electronically Reviewed and Signed Out By Job Mcgowan M.D. 05/15/2025 10:47:54 Tanna Fajardo M.D. History: The patient is a 70-year-old man with peripheral vascular disease and staged removal of the 3rd, 4th, and 5th digits at the level of the PIP joint. Operative procedure: Excision. Specimen(s) Received: A: Left foot tissue debridement Gross Description: Received in formalin, labeled left foot tissue debridement, are multiple perkins bone fragments (5.0 x 4.3 x 2.0 cm in aggregate; 0.4-2.3 cm in GD) with scant patino- perkins soft tissue. Agricultural [employer] fragments are submitted in cassette A1 after decalcification. Jar 1. behu/05/09/2025 10:20 PA(s): Rena Dempsey MS, AVIS(ASCP)CM By this signature, I attest that the above diagnosis is based upon my personal examination of the slides(and/or other material). Addenda/Procedures The performance characteristics of some immunohistochemical stains, fluorescence in-situ hybridization tests and immunophenotyping by flow cytometry cited in this report (if any) were determined by the Surgical Pathology and Flow Cytometry Departments at [facility] as part of an ongoing senior data quality analyst program and in compliance with federally mandated regulations drawn from the Clinical Laboratory Improvement Act of 1988 (CLIA '88). Some of these tests rely on the use of analyte specific reagents and are subject to specific labeling requirements by the US Food and Drug Administration. Such diagnostic tests may only be performed in a facility that is certified by the Department of Health and Human Services as a high complexity laboratory under CLIA '88. The FDA has determined that such clearance or approval is not necessary. This test is used for clinical purposes. It should not be regarded as investigational or for research. Nevertheless, federal rules concerning the medical use of analyte specific reagents require that the following disclaimer be attached to the report: This test was developed and its performance characteristics determined by the Surgical Pathology and Flow Cytometry Departments of [facility]. It has not been cleared or approved by the U. S. Food and Drug Administration. IMAGES AND SCANNED DOCUMENTS, IF INCLUDED, ONLY VIEWABLE IN PDF VERSION OF REPORT Delilah Adams MD PhD LAB PATHOLOGY ORDERABL ES Final Result PATHOLOGY [facility] 3rd Floor [place], [place] [phone] * Tissue aerobic and anaerobic culture and gram stain Bone Foot, left (05/08/2025 1:38 PM CDT) Direct Specimen Exam Stain: No polymorphonuclear leukocytes seen. No organisms seen. Report Final Report: No growth [facility] Bone (Foot, left) 05/08/2025 1:38 PM CDT 05/08/2025 4:[address] [facility] - 05/11/2025 12:00 PM CDT Received in transport media. Specimen collected in the operating room. Testing performed by [facility] Microbiology Laboratory ([phone]) Specimens submitted from normally sterile body sites will have all bacterial morphotypes identified. Specimens that contain grossly mixed zulay and/or are from body sites that are not normally sterile will be examined for Staphylococcus aureus, Pseudomonas aeruginosa, beta-hemolytic strep, vancomycin-resistant Enterococcus, Bacteroides, Parabacteroides, Clostridium perfringens and fungus. If any of these are isolated, the organism will be reported. Current interpretive data was last revised on 2020. Delilah Adams MD PhD LAB MICROBIOLOGY - GEN ERAL ORDERABLES Final Result Performing Organization Address [facility] Co de Phone Number [facility] Department [place] [address] * POCT glucose (05/08/2025 1:17 PM CDT) Glucose, POC 114 70 - 199 mg/dL Blood 05/08/2025 1:17 PM CDT 05/08/2025 1:17 PM CDT Delilah Adams MD PhD LAB POCT ORDERABLES - DEVICE Final Result Performing Organization Address [facility] Co de Phone Number [facility] Department [place] [address] * POCT glucose (05/08/2025 11:07 AM CDT) Glucose, POC 113 70 - 199 mg/dL Blood 05/08/2025 11:0 7 AM CDT 05/08/2025 11:07 AM CDT Delilah Adams MD PhD LAB POCT ORDERABLES - DEVICE Final Result Performing Organization Address [facility] Co de Phone Number [facility] Department [place] [address] * Urine culture Urine, bladder (05/08/2025 11:02 AM CDT) Report Final Report: No growth Urine, bladder 05/08/2025 11 :02 AM CDT 05/08/2025 2:22 PM CDT [facility]ative [facility] - 05/09/2025 6:21 PM CDT Testing performed by [facility] ([phone]) Stephanie Montalvo NP LAB MICROBIOLOGY - GENERAL OR DERABLES Final Result [facility] Department [place] [address] * (ABNORMAL) Urinalysis reflex to microscopic and culture Urine, clean voided (05/08/2025 9:46 AM CDT) Color, ur Straw Yellow Clarity, ur Cloudy(A) Clear [facility] Specific gravity, ur 1.017 1.003 - 1.030 [facility] pH, urine 6.0 [facility] Comment: Interpretive Data U rine pH is affected by diet, medications, systemic acid-base disturbances, and renal tubular function. pH may affect urinary stone formation. For example, urine pH below 6.0 may help reduce the tendency for calcium phosphate stones and pH greater than 6.0 may reduce the tendency for uric acid stone formation. Source: [facility] [employer] Current Interpretive Data was last revised on 2017 Protein, ur ql 1+(A) Negative [facility] Glucose, ur ql Negative Negative [facility] Ketones, ur Trace Negative [facility] Bilirubin, ur Negative Negative [facility] Blood, ur 2+(A) Negative [facility] Urobilinogen, ur <2.0 <2.0 mg/dL [facility] Nitrite, ur Negative Negative [facility] Leukocyte esterase, ur 3+(A) Negative [facility] UA reflex comment Reflex to microscopic UA will be performed. [facility] Urine, clean voided 05/08/2025 9:46 AM CDT 05/08/2025 10:24 AM CDT Delilah Adams MD PhD LAB MICROBIOLOGY - GEN ERAL ORDERABLES Final Result Performing Organization Address [facility] Co de Phone Number [facility] Department [place] [address] * Urea nitrogen, urine, random (05/08/2025 9:46 AM CDT) Urea nitrogen, ur 353 mg/dL Comment: Interpretive Data No reference range established. Current interpretive data was last revised 2019. Urine 05/08/2025 9:4 6 AM CDT 05/08/2025 10:27 AM CDT Result [facility] Stephanie Montalvo MANAGER [employer] DIRECT[employer] LAB URINE ORDERABLES Final Re sult Performing Organization Address [facility] Co de Phone Number [facility] [place] [address] * Sodium, urine, random (05/08/2025 9:46 AM CDT) Sodium, ur 29 mmol/L Comment: Interpretive Data No reference range established. Current interpretive data was last revised 2019. Urine (Urine, Clean Catch) 05/08/2025 9:46 AM CDT 05/08/2025 10:24 AM CDT Delilah Adams MD PhD LAB URINE ORDERABLES F inal Result Performing Organization Address [facility] Co de Phone Number [facility] Department [place] [address] * Potassium, urine, random (05/08/2025 9:46 AM CDT) Potassium conc, ur 23.4 mmol/L Comment: Interpretive Data No reference range established. Current interpretive data was last revised 2019. Urine (Urine, Clean Catch) 05/08/2025 9:46 AM CDT 05/08/2025 10:24 AM CDT Delilah Adams MD PhD LAB URINE ORDERABLES F inal Result Performing Organization Address [facility] Co de Phone Number [facility] [place] [address] * Creatinine, urine, random (05/08/2025 9:46 AM CDT) Creatinine Ur 67.4 mg/dL Comment: Interpretive Data No reference range established. Current interpretive data was last revised 2019. Urine 05/08/2025 9:46 AM CDT 05/08/2025 10:27 AM CDT Delilah Adams MD PhD LAB URINE ORDERABLES F inal Result Performing Organization Address [facility] de Phone Number [facility] [employer] [place] [address] * Chloride, urine, random (05/08/2025 9:46 AM CDT) Chloride, ur <25 mmol/L Comment: Interpretive Data No reference range established. Current interpretive data was last revised 2019. Urine 05/08/2025 9:46 AM CDT 05/08/2025 10:24 AM CDT Delilah Adams MD PhD LAB URINE ORDERABLES F inal Result Performing Organization Address [facility] Co de Phone Number [facility] [place] [address] * (ABNORMAL) Urinalysis, microscopic only (05/08/2025 9:46 AM CDT) [facility] WBC, ur >50(A) 0 - 5 /HPF RBC, ur 21-50(A) 0 - 2 /HPF [facility] Epithelial cells, squamous, ur 1-5 0 - 5 /HPF [facility] Bacteria, ur Trace(A) [facility] Mucous, ur Present(A) [facility] Hyaline casts, ur 1-5 0 - 10 /LPF [facility] Granular casts, ur >50(A) 0 - 0 /LPF [facility] Culture Reflex Comment Reflex to urine culture will be performed. [facility] Urine, clean voided 05/08/2025 9:46 AM CDT 05/08/2025 10:24 AM CDT Delilah Adams MD PhD LAB URINE ORDERABLES F inal Result Performing Organization Address City/[facility]/ZIP Co de Phone Number [facility] Department of [employer] [place] [address] * POCT glucose (05/08/2025 8:21 AM CDT) [facility] Glucose, POC 118 70 - 199 mg/dL Blood 05/08/2025 8:21 AM CDT 05/08/2025 8:21 AM CDT Delilah Adams MD PhD LAB POCT ORDERABLES - DEVICE Final Result Performing Organization Address City/[facility]/ZIP Co de Phone Number [facility] Department [place] [address] * (ABNORMAL) eGFR (05/08/2025 12:54 AM CDT) [facility] eGFR 19(L) >=60 mL/min/1. 73 m2 Comment: Interpretive Data Reference Interval Normal >/= 90 mL/min/1.73m2 Mildly decreased* 60 - 89 mL/min/1.73m2 Mildly to moderately decreased 45 - 59 mL/min/1.73m2 Moderately to severely decreased 30 - 44 mL/min/1.73m2 Severely decreased 15 - 29 mL/min/1.73m2 Kidney Failure < 15 mL/min/1.73m2 *Relative to young adult level Estimated glomerular filtration rate is determined by the 2020 CKD-EPI equation recommended by the National Kidney Foundation (A Unifying Approach to GFR Estimation: Recommendations of the NKF-ASK Task Force on Reassessing the Inclusion of Race in Diagnosing Kidney Disease, JASN 202). The CKD-EPI equation should not be used for patients with unstable renal function and has not been validated in children and those over 70. Current interpretive data was last reviewed 2021. Blood 05/08/2025 12:5 4 AM CDT 05/08/2025 1:59 AM CDT us Delilah Adams MD PhD LAB BLOOD ORDERABLES F inal Result [facility] Department [place] [address] * (ABNORMAL) Differential, auto (05/08/2025 12:54 AM CDT) Neutrophil abs 5.68 1.50 - 6.50 K/cumm Imm gran abs 0.09 0.00 - 0.10 K/cumm [facility] Lymphocyte abs 1.58 0.80 - 3.30 K/cumm [facility] Monocyte abs 0.66 0.20 - 0.80 K/cumm [facility] Eosinophil abs 0.16 0.00 - 0.50 K/cumm [facility] Basophil abs 0.12(H) 0.00 - 0.10 K/cumm [facility] Neutrophil pct 68.5 % [facility] Comment: Interpretive Data Percent cell count reference ranges are not reported, since discordance with absolute values may lead to misinterpretation of CBC data. Current Interpretive Data was last revised on 2018. Imm gran pct 1.1 % [facility] Comment: Interpretive Data Percent cell count reference ranges are not reported, since discordance with absolute values may lead to misinterpretation of CBC data. Current Interpretive Data was last revised on 2018. Lymphocyte pct 19.1 % [facility] Comment: Interpretive Data Percent cell count reference ranges are not reported, since discordance with absolute values may lead to misinterpretation of CBC data. Current Interpretive Data was last revised on 2018. Monocyte pct 8.0 % [facility] Comment: Interpretive Data Percent cell count reference ranges are not reported, since discordance with absolute values may lead to misinterpretation of CBC data. Current Interpretive Data was last revised on 2018. Eosinophil pct 1.9 % [facility] Comment: Interpretive Data Percent cell count reference ranges are not reported, since discordance with absolute values may lead to misinterpretation of CBC data. Current Interpretive Data was last revised on 2018. Basophil pct 1.4 % [facility] Comment: Interpretive Data Percent cell count reference ranges are not reported, since discordance with absolute values may lead to misinterpretation of CBC data. Current Interpretive Data was last revised on 2018. Blood 05/08/2025 12:5 4 AM CDT 05/08/2025 1:58 AM CDT us Delilah Adams MD PhD LAB BLOOD ORDERABLES F inal Result [facility] Department [place] [address] * (ABNORMAL) CBC with auto differential (05/08/2025 12:54 AM CDT) WBC 8.29 3.80 - 9.90 K/cumm Hgb 8.4(L) 13.0 - 17.5 g/dL [facility] Hct 26.1(L) 38.9 - 50.3 % [facility] Plt 223 150 - 400 K/cumm [facility] MPV 9.8 9.1 - 12.3 fL [facility] RBC 2.99(L) 4.30 - 5.80 M/cumm [facility] MCV 87.3 81.3 - 96.4 fL [facility] MCH 28.1 27.1 - 33.3 pg [facility] MCHC 32.2(L) 32.3 - 35.7 g/dL [facility] RDW CV 15.5(H) 11.1 - 14.9 % [facility] RDW SD 49.1(H) 35.7 - 48.1 fL [facility] NRBC abs 0.00 0.00 - 0.01 K/cumm [facility] Blood 05/08/2025 12:5 4 AM CDT 05/08/2025 1:58 AM CDT Delilah Adams MD PhD LAB BLOOD ORDERABLES F inal Result Performing Organization Address City/[facility]/ZIP Co de Phone Number [facility] Department [place] [address] * Type and screen (05/08/2025 12:54 AM CDT) ABO Rh O Positive Carly, indirect Negative [facility] Blood 05/08/2025 12:5 4 AM CDT 05/08/2025 2:02 AM CDT Narrative [facility] - 05/08/2025 3:30 AM CDT Has the patient had Daratumumab or Isatuximab in the past 6 months?->Unknown Result [facility] Stephanie Montalvo MANAGER [employer] DIRECT[employer] LAB BLOOD BANK TEST ORDERABLE S Final Result [facility] Department [place] [address] * (ABNORMAL) Phosphorus (05/08/2025 12:54 AM CDT) Phosphorus, pl 5.3(H) 2.3 - 4.5 mg/dL Blood 05/08/2025 12:5 4 AM CDT 05/08/2025 1:59 AM CDT Delilah Adams MD PhD LAB BLOOD ORDERABLES F inal Result Performing Organization Address City/[facility] Co de Phone Number [facility] Department of [employer] [place] [address] * Magnesium (05/08/2025 12:54 AM CDT) [facility] Magnesium 2.2 1.4 - 2.5 mg/dL Blood 05/08/2025 12:5 4 AM CDT 05/08/2025 1:59 AM CDT Delilah Adams MD PhD LAB BLOOD ORDERABLES F inal Result Performing Organization Address [facility] de Phone Number [facility] Department [place] [address] * (ABNORMAL) Basic metabolic panel (05/08/2025 12:54 AM CDT) [facility] Sodium 137 135 - 145 mmol/L Potassium, pl 4.5 3.3 - 4.9 mmol/L [facility] Chloride 102 97 - 110 mmol/L [facility] CO2 24 22 - 32 mmol/L [facility] Anion gap 11 2 - 15 mmol/L [facility] BUN 58(H) 6 - 25 mg/dL [facility] Creatinine 3.27(H) 0.80 - 1.30 mg/dL [facility] Glucose 124 70 - 199 mg/dL [facility] Comment: Interpretive Data Fasting glucose >/= 126 mg/dl is diagnostic for diabetes. Fasting is defined as no caloric intake for at least 8 hours. Fasting glucose between 100 mg/dl to 125 mg/dl is diagnostic of prediabetes. In a patient with classic symptoms of hyperglycemia or hyperglycemic crisis, a random glucose >/= 200 mg/dl is diagnostic for diabetes. In the absence of unequivocal hyperglycemia, results should be confirmed by repeat testing. The classification and Diagnosis of Diabetes Diabetes Care 202; 46: S19-S40. Current interpretive data was last revised 2022. Calcium 8.2(L) 8.5 - 10.3 mg/dL [facility] Blood 05/08/2025 12:5 4 AM CDT 05/08/2025 1:59 AM CDT us Delilah Adams MD PhD LAB BLOOD ORDERABLES F inal Result Performing Organization Address [facility] Co de Phone Number [facility] Department [place] [address] * Transfuse RBC (05/08/2025 12:03 AM CDT) Blood us Delilah Adams MD PhD BLOOD TRANSFUSION ORDE RABLES Final Result Performing Organization Address [facility] Co de Phone Number [facility] Department [place] [address] * (ABNORMAL) POCT glucose (05/07/2025 7:49 PM CDT) Glucose, POC 201(H) 70 - 199 mg/dL Blood 05/07/2025 7:49 PM CDT 05/07/2025 7:49 PM CDT us Delilah Adams MD PhD LAB POCT ORDERABLES - DEVICE Final Result Performing Organization Address [facility] Co de Phone Number [facility] Department [place] [address] * Prepare RBC: 1 Units (05/07/2025 7:23 PM CDT) Product code [id number] Unit Number [id number] * [facility] Product Blood Type OPOS [facility] Dispense Status PRESUMED TRANSFUSED [facility] Blood 05/07/2025 7:23 PM CDT 05/07/2025 7:22 PM CDT Narrative [facility] - 05/08/2025 4:01 PM CDT Are special requirements needed? (All products are leukoreduced and CMV- safe)- >No Date required:-[id number] LRRBC # of [id number] Reasons:-Active bleeding, Hgb <8 g/dL} Delilah Adams MD PhD BLOOD BANK PRODUCT ORD ERABLES Final Result [facility] Department [place] [address] * (ABNORMAL) Differential, auto (05/07/2025 6:51 PM CDT) Neutrophil abs 6.71(H) 1.50 - 6.50 K/cumm Imm gran abs 0.10 0.00 - 0.10 K/cumm [facility] Lymphocyte abs 1.70 0.80 - 3.30 K/cumm [facility] Monocyte abs 0.62 0.20 - 0.80 K/cumm [facility] Eosinophil abs 0.18 0.00 - 0.50 K/cumm [facility] Basophil abs 0.10 0.00 - 0.10 K/cumm [facility] Neutrophil pct 71.2 % [facility] Comment: Interpretive Data Percent cell count reference ranges are not reported, since discordance with absolute values may lead to misinterpretation of CBC data. Current Interpretive Data was last revised on 2018. Imm gran pct 1.1 % [facility] Comment: Interpretive Data Percent cell count reference ranges are not reported, since discordance with absolute values may lead to misinterpretation of CBC data. Current Interpretive Data was last revised on 2018. Lymphocyte pct 18.1 % [facility] Comment: Interpretive Data Percent cell count reference ranges are not reported, since discordance with absolute values may lead to misinterpretation of CBC data. Current Interpretive Data was last revised on 2018. Monocyte pct 6.6 % [facility] Comment: Interpretive Data Percent cell count reference ranges are not reported, since discordance with absolute values may lead to misinterpretation of CBC data. Current Interpretive Data was last revised on 2018. Eosinophil pct 1.9 % [facility] Comment: Interpretive Data Percent cell count reference ranges are not reported, since discordance with absolute values may lead to misinterpretation of CBC data. Current Interpretive Data was last revised on 2018. Basophil pct 1.1 % [facility] Comment: Interpretive Data Percent cell count reference ranges are not reported, since discordance with absolute values may lead to misinterpretation of CBC data. Current Interpretive Data was last revised on 2018. Blood 05/07/2025 6:51 PM CDT 05/07/2025 7:17 PM CDT us Felice Rowe MD LAB BLOOD ORDERABLES Final Result [facility] Department [place] [address] * (ABNORMAL) CBC with auto differential (05/07/2025 6:51 PM CDT) WBC 9.41 3.80 - 9.90 K/cumm Hgb 7.7(L) 13.0 - 17.5 g/dL [facility] Hct 24.1(L) 38.9 - 50.3 % [facility] Plt 227 150 - 400 K/cumm [facility] MPV 9.6 9.1 - 12.3 fL [facility] RBC 2.76(L) 4.30 - 5.80 M/cumm [facility] MCV 87.3 81.3 - 96.4 fL [facility] MCH 27.9 27.1 - 33.3 pg [facility] MCHC 32.0(L) 32.3 - 35.7 g/dL [facility] RDW CV 15.7(H) 11.1 - 14.9 % [facility] RDW SD 49.5(H) 35.7 - 48.1 fL [facility] NRBC abs 0.00 0.00 - 0.01 K/cumm [facility] Blood 05/07/2025 6:51 PM CDT 05/07/2025 7:17 PM CDT us Felice Rowe MD LAB BLOOD ORDERABLES Final Result [facility] Department [place] [address] * Differential, auto (05/07/2025 5:54 PM CDT) Neutrophil abs 5.82 1.50 - 6.50 K/cumm Imm gran abs 0.07 0.00 - 0.10 K/cumm [facility] Lymphocyte abs 1.87 0.80 - 3.30 K/cumm [facility] Monocyte abs 0.46 0.20 - 0.80 K/cumm [facility] Eosinophil abs 0.15 0.00 - 0.50 K/cumm [facility] Basophil abs 0.10 0.00 - 0.10 K/cumm [facility] Neutrophil pct 68.7 % [facility] Comment: Interpretive Data Percent cell count reference ranges are not reported, since discordance with absolute values may lead to misinterpretation of CBC data. Current Interpretive Data was last revised on 2018. Imm gran pct 0.8 % [facility] Comment: Interpretive Data Percent cell count reference ranges are not reported, since discordance with absolute values may lead to misinterpretation of CBC data. Current Interpretive Data was last revised on 2018. Lymphocyte pct 22.1 % [facility] Comment: Interpretive Data Percent cell count reference ranges are not reported, since discordance with absolute values may lead to misinterpretation of CBC data. Current Interpretive Data was last revised on 2018. Monocyte pct 5.4 % [facility] Comment: Interpretive Data Percent cell count reference ranges are not reported, since discordance with absolute values may lead to misinterpretation of CBC data. Current Interpretive Data was last revised on 2018. Eosinophil pct 1.8 % [facility] Comment: Interpretive Data Percent cell count reference ranges are not reported, since discordance with absolute values may lead to misinterpretation of CBC data. Current Interpretive Data was last revised on 2018. Basophil pct 1.2 % [facility] Comment: Interpretive Data Percent cell count reference ranges are not reported, since discordance with absolute values may lead to misinterpretation of CBC data. Current Interpretive Data was last revised on 2018. Blood 05/07/2025 5:54 PM CDT 05/07/2025 6:06 PM CDT [facility] LAB BLOOD ORDERABLES Final Re sult Performing Organization Address [facility]/ZIP Co de Phone Number [facility] [employer] [place] [address] * (ABNORMAL) CBC with auto differential (05/07/2025 5:54 PM CDT) WBC 8.47 3.80 - 9.90 K/cumm Hgb 7.9(L) 13.0 - 17.5 g/dL [facility] Hct 24.6(L) 38.9 - 50.3 % [facility] Plt 244 150 - 400 K/cumm [facility] MPV 9.3 9.1 - 12.3 fL [facility] RBC 2.85(L) 4.30 - 5.80 M/cumm [facility] MCV 86.3 81.3 - 96.4 fL [facility] MCH 27.7 27.1 - 33.3 pg [facility] MCHC 32.1(L) 32.3 - 35.7 g/dL [facility] RDW CV 15.8(H) 11.1 - 14.9 % [facility] RDW SD 49.6(H) 35.7 - 48.1 fL [facility] NRBC abs 0.00 0.00 - 0.01 K/cumm [facility] Blood 05/07/2025 5:54 PM CDT 05/07/2025 6:06 PM CDT Stephanie Montalvo MANAGER [employer] LAB BLOOD ORDERABLES Final Re sult Performing Organization Address City/[facility]/ZIP Co de Phone Number [facility] [employer] [place] [address] * POCT glucose (05/07/2025 5:16 PM CDT) Glucose, POC 142 70 - 199 mg/dL Blood 05/07/2025 5:16 PM CDT 05/07/2025 5:16 PM CDT Delilah Adams MD PhD LAB POCT ORDERABLES - DEVICE Final Result Performing Organization Address [facility] Co de Phone Number [facility] [employer] [place] [address] * Transfuse RBC (05/07/2025 3:15 PM CDT) Blood Result [facility] Stephanie Montalvo NP BLOOD TRANSFUSION ORDERABLES Final Result Performing Organization Address [facility] de Phone Number [facility] [employer] [place] [address] * Prepare RBC: 1 Units (05/07/2025 12:23 PM CDT) [facility] Product code [id number] Unit Number [id number] P [facility] Product Blood Type OPOS [facility] Dispense Status PRESUMED TRANSFUSED [facility] Blood 05/07/2025 12:2 3 PM CDT 05/07/2025 12:22 PM CDT Narrative [facility] - 05/08/2025 12:56 AM CDT Are special requirements needed? (All products are leukoreduced and CMV- safe)- >No Date required:-[id number] LRRBC # of [id number] Reasons:-Cardiovascular disease, Hgb <8 g/dL} Stephanie Montalvo NP BLOOD BANK PRODUCT ORDERABLES Final Result Performing Organization Address [facility] de Phone Number [facility] [employer] [place] [address] * POCT glucose (05/07/2025 11:58 AM CDT) [facility] Glucose, POC 112 70 - 199 mg/dL Blood 05/07/2025 11:5 8 AM CDT 05/07/2025 11:58 AM CDT Delilah Adams MD PhD LAB POCT ORDERABLES - DEVICE Final Result Performing Organization Address [facility] Co de Phone Number [facility] Department of [employer] [place] [address] * (ABNORMAL) CBC without differential (05/07/2025 10:27 AM CDT) [facility] WBC 9.57 3.80 - 9.90 K/cumm Hgb 7.7(L) 13.0 - 17.5 g/dL [facility] Hct 25.5(L) 38.9 - 50.3 % [facility] Plt 279 150 - 400 K/cumm [facility] MPV 9.8 9.1 - 12.3 fL [facility] RBC 2.89(L) 4.30 - 5.80 M/cumm [facility] MCV 88.2 81.3 - 96.4 fL [facility] MCH 26.6(L) 27.1 - 33.3 pg [facility] MCHC 30.2(L) 32.3 - 35.7 g/dL [facility] RDW CV 15.9(H) 11.1 - 14.9 % [facility] RDW SD 50.3(H) 35.7 - 48.1 fL [facility] NRBC abs 0.00 0.00 - 0.01 K/cumm [facility] Blood 05/07/2025 10:2 7 AM CDT 05/07/2025 10:40 AM CDT Result [facility] Delilah Adams MD PhD LAB BLOOD ORDERABLES F inal Result Performing Organization Address City/[facility]/ZIP Co de Phone Number [facility] [place] [address] * Transfuse RBC (05/07/2025 8:16 AM CDT) Blood Delilah Adams MD PhD BLOOD TRANSFUSION ORDE RABLES Final Result Performing Organization Address [facility] Co de Phone Number [facility] Department of [employer] [place] [address] * POCT glucose (05/07/2025 7:33 AM CDT) Glucose, POC 149 70 - 199 mg/dL Blood 05/07/2025 7:33 AM CDT 05/07/2025 7:33 AM CDT Result [facility] Delilah Adams MD PhD LAB POCT ORDERABLES - DEVICE Final Result Performing Organization Address [facility] de Phone Number [facility] [employer] [place] [address] * Prepare RBC: 1 Units (05/07/2025 5:02 AM CDT) Pathologist [facility] Product code [id number] Unit Number [id number] [facility] Product Blood Type OPOS [facility] Dispense Status PRESUMED TRANSFUSED [facility] Blood 05/07/2025 5:02 AM CDT 05/07/2025 5:02 AM CDT Narrative [facility] - 05/07/2025 8:01 PM CDT Are special requirements needed? (All products are leukoreduced and CMV- safe)- >No Date required:-[id number] LRRBC # of [id number] Reasons:-Active bleeding, Hgb <8 g/dL} Delilah Adams MD PhD BLOOD BANK PRODUCT ORD ERABLES Final Result Performing Organization Address [facility] [place] [address] * (ABNORMAL) CBC without differential (05/07/2025 4:26 AM CDT) [facility] WBC 8.62 3.80 - 9.90 K/cumm Hgb 7.3(L) 13.0 - 17.5 g/dL [facility] Hct 23.6(L) 38.9 - 50.3 % [facility] Plt 262 150 - 400 K/cumm [facility] MPV 9.5 9.1 - 12.3 fL [facility] RBC 2.74(L) 4.30 - 5.80 M/cumm [facility] MCV 86.1 81.3 - 96.4 fL [facility] MCH 26.6(L) 27.1 - 33.3 pg [facility] MCHC 30.9(L) 32.3 - 35.7 g/dL [facility] RDW CV 15.9(H) 11.1 - 14.9 % [facility] RDW SD 50.4(H) 35.7 - 48.1 fL [facility] NRBC abs 0.00 0.00 - 0.01 K/cumm [facility] Blood 05/07/2025 4:26 AM CDT 05/07/2025 4:46 AM CDT Narrative [facility] - 05/07/2025 4:53 AM CDT While on heparin infusion Delilah Adams MD PhD LAB BLOOD ORDERABLES F inal Result [facility] Department [place] [address] * (ABNORMAL) eGFR (05/06/2025 10:32 PM CDT) [facility] eGFR 25(L) >=60 mL/min/1. 73 m2 Comment: Interpretive Data Reference Interval Normal >/= 90 mL/min/1.73m2 Mildly decreased* 60 - 89 mL/min/1.73m2 Mildly to moderately decreased 45 - 59 mL/min/1.73m2 Moderately to severely decreased 30 - 44 mL/min/1.73m2 Severely decreased 15 - 29 mL/min/1.73m2 Kidney Failure < 15 mL/min/1.73m2 *Relative to young adult level Estimated glomerular filtration rate is determined by the 2020 CKD-EPI equation recommended by the National Kidney Foundation (A Unifying Approach to GFR Estimation: Recommendations of the NKF-ASK Task Force on Reassessing the Inclusion of Race in Diagnosing Kidney Disease, JASN 202). The CKD-EPI equation should not be used for patients with unstable renal function and has not been validated in children and those over 70. Current interpretive data was last reviewed 2021. Blood 05/06/2025 10:3 2 PM CDT 05/06/2025 11:06 PM CDT us Delilah Adams MD PhD LAB BLOOD ORDERABLES F inal Result [facility] Department [place] [address] * Differential, auto (05/06/2025 10:32 PM CDT) Pathologist [facility] Neutrophil abs 5.43 1.50 - 6.50 K/cumm Imm gran abs 0.06 0.00 - 0.10 K/cumm [facility] Lymphocyte abs 1.10 0.80 - 3.30 K/cumm [facility] Monocyte abs 0.34 0.20 - 0.80 K/cumm [facility] Eosinophil abs 0.12 0.00 - 0.50 K/cumm [facility] Basophil abs 0.04 0.00 - 0.10 K/cumm [facility] Neutrophil pct 76.6 % [facility] Comment: Interpretive Data Percent cell count reference ranges are not reported, since discordance with absolute values may lead to misinterpretation of CBC data. Current Interpretive Data was last revised on 2018. Imm gran pct 0.8 % [facility] Comment: Interpretive Data Percent cell count reference ranges are not reported, since discordance with absolute values may lead to misinterpretation of CBC data. Current Interpretive Data was last revised on 2018. Lymphocyte pct 15.5 % [facility] Comment: Interpretive Data Percent cell count reference ranges are not reported, since discordance with absolute values may lead to misinterpretation of CBC data. Current Interpretive Data was last revised on 2018. Monocyte pct 4.8 % [facility] Comment: Interpretive Data Percent cell count reference ranges are not reported, since discordance with absolute values may lead to misinterpretation of CBC data. Current Interpretive Data was last revised on 2018. Eosinophil pct 1.7 % [facility] Comment: Interpretive Data Percent cell count reference ranges are not reported, since discordance with absolute values may lead to misinterpretation of CBC data. Current Interpretive Data was last revised on 2018. Basophil pct 0.6 % [facility] Comment: Interpretive Data Percent cell count reference ranges are not reported, since discordance with absolute values may lead to misinterpretation of CBC data. Current Interpretive Data was last revised on 2018. Blood 05/06/2025 10:3 2 PM CDT 05/06/2025 10:59 PM CDT us Delilah Adams MD PhD LAB BLOOD ORDERABLES F inal Result [facility] Department [place] [address] * (ABNORMAL) CBC with auto differential (05/06/2025 10:32 PM CDT) WBC 7.09 3.80 - 9.90 K/cumm Hgb 7.9(L) 13.0 - 17.5 g/dL [facility] Hct 25.7(L) 38.9 - 50.3 % [facility] Plt 271 150 - 400 K/cumm [facility] MPV 9.7 9.1 - 12.3 fL [facility] RBC 2.98(L) 4.30 - 5.80 M/cumm [facility] MCV 86.2 81.3 - 96.4 fL [facility] MCH 26.5(L) 27.1 - 33.3 pg [facility] MCHC 30.7(L) 32.3 - 35.7 g/dL [facility] RDW CV 16.0(H) 11.1 - 14.9 % [facility] RDW SD 50.4(H) 35.7 - 48.1 fL [facility] NRBC abs 0.00 0.00 - 0.01 K/cumm [facility] Blood 05/06/2025 10:3 2 PM CDT 05/06/2025 10:59 PM CDT Delilah Adams MD PhD LAB BLOOD ORDERABLES F inal Result [facility] [place] [address] * Phosphorus (05/06/2025 10:32 PM CDT) Phosphorus, pl 3.8 2.3 - 4.5 mg/dL Blood 05/06/2025 10:3 2 PM CDT 05/06/2025 10:59 PM CDT Delilah Adams MD PhD LAB BLOOD ORDERABLES F inal Result Performing Organization Address City/[facility] Co de Phone Number [facility] Department [place] [address] * Magnesium (05/06/2025 10:32 PM CDT) Magnesium 2.3 1.4 - 2.5 mg/dL Blood 05/06/2025 10:3 2 PM CDT 05/06/2025 10:59 PM CDT Result [facility] Delilah Adams MD PhD LAB BLOOD ORDERABLES F inal Result Performing Organization Address City/[facility]/ZIP Co de Phone Number [facility] Department [place] [address] * (ABNORMAL) Vancomycin level trough (05/06/2025 10:32 PM CDT) Vancomycin trough 22.3(H) 10.0 - 20.0 mcg/mL Comment:Repeated and Verifie d Blood 05/06/2025 10:3 2 PM CDT 05/06/2025 10:59 PM CDT Delilah Adams MD PhD LAB BLOOD ORDERABLES F inal Result [facility] Department [place] [address] * (ABNORMAL) Basic metabolic panel (05/06/2025 10:32 PM CDT) Pathologist [facility] Sodium 144 135 - 145 mmol/L Potassium, pl 4.3 3.3 - 4.9 mmol/L [facility] Chloride 108 97 - 110 mmol/L [facility] CO2 25 22 - 32 mmol/L [facility] Anion gap 11 2 - 15 mmol/L [facility] BUN 45(H) 6 - 25 mg/dL [facility] Creatinine 2.62(H) 0.80 - 1.30 mg/dL [facility] Glucose 124 70 - 199 mg/dL [facility] Comment: Interpretive Data Fasting glucose >/= 126 mg/dl is diagnostic for diabetes. Fasting is defined as no caloric intake for at least 8 hours. Fasting glucose between 100 mg/dl to 125 mg/dl is diagnostic of prediabetes. In a patient with classic symptoms of hyperglycemia or hyperglycemic crisis, a random glucose >/= 200 mg/dl is diagnostic for diabetes. In the absence of unequivocal hyperglycemia, results should be confirmed by repeat testing. The classification and Diagnosis of Diabetes Diabetes Care 202; 46: S19-S40. Current interpretive data was last revised 2022. Calcium 8.5 8.5 - 10.3 mg/dL [facility] Blood 05/06/2025 10:3 2 PM CDT 05/06/2025 10:59 PM CDT Delilah Adams MD PhD LAB BLOOD ORDERABLES F inal Result Performing Organization Address [facility] Co de Phone Number [facility] [employer] [place] [address] * POCT glucose (05/06/2025 10:14 PM CDT) Glucose, POC 130 70 - 199 mg/dL Blood 05/06/2025 10:1 4 PM CDT 05/06/2025 10:14 PM CDT Delilah Adams MD PhD LAB POCT ORDERABLES - DEVICE Final Result Performing Organization Address [facility] de Phone Number [facility] [employer] [place] [address] * POCT glucose (05/06/2025 8:02 PM CDT) Glucose, POC 108 70 - 199 mg/dL Blood 05/06/2025 8:02 PM CDT 05/06/2025 8:02 PM CDT Delilah Adams MD PhD LAB POCT ORDERABLES - DEVICE Final Result Performing Organization Address [facility] [place] [address] * FL Fluoroscopy < 1 Hour (Statistical Only) (05/06/2025 7:55 PM CDT) Narrative RAD_P[facility] - 05/06/2025 8:05 PM CDT The images from this study are not interpreted by Radiology. Please refer to the physician's procedure / OR operative note. Bryan Hough MD IMG FLUOROSCOPY PROCEDURES F inal Result Performing Organization Address [facility] Co de Phone Number [facility] * ANGIOGRAM (05/06/2025 7:53 PM CDT) Anatomical Region Laterality Modality X-Ray Angiograph y Narrative 05/06/2025 8:52 PM CDT Please see OpNote for result. us Delilah Adams MD PhD SURGICAL CASE ORDERS F inal Result * (ABNORMAL) Tissue aerobic and anaerobic culture and gram stain Tissue Toe, third, left (05/06/2025 7:48 PM CDT) Direct Specimen Exam Stain: No polymorphonuclear leukocytes seen. Rare Gram Positive Cocci Rare Gram Variable Bacilli Report Final Report: Few Mixed aerobic and anaerobic microorganisms Includes the following: Few Streptococcus pyogenes (Group A Streptococci) Streptococcus pyogenes is uniformly susceptible to beta-lactam antibiotics and vancomycin. Routine susceptibility testing is not performed. Few Proteus vulgaris group (.) [facility] Organism PROTEUS VULGARIS GROUP [facility] Organism STREPTOCOCCUS PYOGENES (GROUP A STREPTOCOCCI) [facility] Organism MIXED AEROBIC AND ANAEROBIC MICROORGANISMS [facility] Tissue (Toe, third, left) 05/06/2025 7:48 PM CDT 05/06/2025 8:59 PM CDT Narrative [facility] - 05/10/2025 2:54 PM CDT Tissue from 3rd Left Toe Specimen collected in the operating room. Testing performed by [facility] ([phone]) Specimens submitted from normally sterile body sites will have all bacterial morphotypes identified. Specimens that contain grossly mixed zulay and/or are from body sites that are not normally sterile will be examined for Staphylococcus aureus, Pseudomonas aeruginosa, beta-hemolytic strep, vancomycin-resistant Enterococcus, Bacteroides, Parabacteroides, Clostridium perfringens and fungus. If any of these are isolated, the organism will be reported. Current interpretive data was last revised on 2020. Organism Antibiotic Method Susceptibility Proteus vulgaris group Ampicillin INTERPRETATION Resistant Proteus vulgaris group Cefazolin INTERPRETATION Resistant Proteus vulgaris group Gentamicin INTERPRETATION Susceptible Proteus vulgaris group Ampicillin with Sulbactam INTER PRETATION Susceptible Proteus vulgaris group Trimethoprim with Sulfamethoxazole INTERPRETATION Susceptible Proteus vulgaris group Meropenem INTERPRETATION Susceptible Proteus vulgaris group Cefepime INTERPRETATION Susceptible Proteus vulgaris group Ciprofloxacin INTERPRETATION Susceptible Proteus vulgaris group Ceftazidime INTERPRETATION Susceptible Proteus vulgaris group Ceftriaxone INTERPRETATION Susceptible Proteus vulgaris group Piperacillin/Tazobactam INTERPR ETATION Susceptible us Delilah Adams MD PhD LAB MICROBIOLOGY - GEN ERAL ORDERABLES Final Result [facility] Department [place] [address] * (ABNORMAL) Aerobic and anaerobic culture and gram stain Wound Toe, fourth, left (05/06/2025 7:47 PMCDT) Direct Specimen Exam Stain: Rare polymorphonuclear leukocytes seen. Rare Gram Negative Bacilli Slide reviewed and direct smear was updated. Report Final Report: Moderate Proteus vulgaris group Rare Staphylococcus aureus Methicillin resistant (MRSA) by penicillin binding protein 2a (PBP2a) testing. * * * * * * * * * * * * * * * * * * * * Few Mixed Gram-positive microorganisms (.) [facility] Organism MIXED GRAM POSITIVE MICROORGANISMS [facility] Organism STAPHYLOCOCCUS AUREUS [facility] Organism PROTEUS VULGARIS GROUP [facility] Wound (Toe, fourth, left) 05/06/2025 7:47 PM CDT 05/06/2025 9:06 PM CDT Narrative [facility] - 05/13/2025 1:29 PM CDT Fluid from LEFT 4th toe Specimen received on an ESwab. Testing performed by [facility] ([phone]) Specimens submitted from normally sterile body sites will have all bacterial morphotypes identified. Specimens that contain grossly mixed zulay and/or are from body sites that are not normally sterile will be examined for Staphylococcus aureus, Pseudomonas aeruginosa, beta-hemolytic strep, vancomycin-resistant Enterococcus, Bacteroides, Parabacteroides, Clostridium perfringens and fungus. If any of these are isolated, the organism will be reported. Current interpretive data was last revised on 2020. Organism Antibiotic Method Susceptibility Staphylococcus aureus Vancomycin INTERPRETATION Susceptible Staphylococcus aureus Ceftaroline INTERPRETATION Susceptible Staphylococcus aureus Trimethoprim with Sulfamethoxazole INTERPRETATION Susceptible Staphylococcus aureus Linezolid INTERPRETATION Susceptible Staphylococcus aureus Doxycycline INTERPRETATION Susceptible Staphylococcus aureus Clindamycin INTERPRETATION Susceptible Staphylococcus aureus Erythromycin INTERPRETATION Susceptible Staphylococcus aureus Oxacillin INTERPRETATION Resistant Staphylococcus aureus Cefazolin INTERPRETATION Resistant Staphylococcus aureus Ceftriaxone INTERPRETATION Resistant Proteus vulgaris group Ampicillin INTERPRETATION Resistant Proteus vulgaris group Cefazolin INTERPRETATION Resistant Proteus vulgaris group Gentamicin INTERPRETATION Susceptible Proteus vulgaris group Ampicillin with Sulbactam INTER PRETATION Susceptible Proteus vulgaris group Trimethoprim with Sulfamethoxazole INTERPRETATION Susceptible Proteus vulgaris group Meropenem INTERPRETATION Susceptible Proteus vulgaris group Cefepime INTERPRETATION Susceptible Proteus vulgaris group Ciprofloxacin INTERPRETATION Susceptible Proteus vulgaris group Ceftazidime INTERPRETATION Susceptible Proteus vulgaris group Ceftriaxone INTERPRETATION Susceptible Proteus vulgaris group Piperacillin/Tazobactam INTERPR ETATION Susceptible us Delilah Adams MD PhD LAB MICROBIOLOGY - GEN ERAL ORDERABLES Final Result [facility] Department [place] [address] * Surgical pathology (05/06/2025 7:34 PM CDT) Tissue (Amputation non-tramatic) 05/06/2025 7:34 PM CDT Narrative PATHOLOGY [facility] - 05/14/2025 10:27 AM CDT EPIC results best viewed via link to PDF [facility] [place] [address] Note to Patients: This report may contain a detailed description of human tissue sent by a health care provider to the laboratory for pathologic evaluation. The content of this report is essential for diagnosis and may provide important critical findings. This information may be unfamiliar to patients to review without a medical professional present. It is advised that the patient review this report in the presence of a health care provider who can answer questions and explain the details. SURGICAL PATHOLOGY REPORT FINAL Patient Name: GREGORY KAT Gender: M : 1955 (Age: 70) Address: [address] [place] [id number] Hospital #: [id number] Taken:05/06/2025 Received:05/07/2025 Reported: 05/14/2025 Patient Type: [facility] Inpatient Service: Vascular Location: [facility] [address] Physician(s): Johnny Velasquez M.D. Diagnosis: Toes, left 3, 4, 5, disarticulation - Skin and soft tissue with ulceration, necrosis, and acute inflammation - Bone with acute and chronic osteomyelitis [facility]/05/13/2025 18:04 By this signature, I attest that the above diagnosis is based upon my personal examination of the slides(and/or other material indicated in the diagnosis). Job Mcgowan M.D. Report Electronically Reviewed and Signed Out By Job Mcgowan M.D. 05/14/2025 10:27:09 Tanna Fajardo M.D. History: The patient is a 70-year-old man presenting with critical limb ischemia of both lower extremities and multiple open foot wounds. Operative procedure: Disarticulation. Specimen(s) Received: A: Digits 3,4 and 5 (left foot) Gross Description: Received in a single formalin filled container labeled with the patient's name and digits three, four and five (left foot) are three anatomically oriented distal toe segments (3.8-4.7 cm in length) loosely attached by wrinkled pale pink skin. All three digits have a proximal articular surface. Digits 3 and 4 consist of toe stumps, each with multiple distally attached black sutures. The fifth digit has scattered areas of skin sloughing and an attached thickened yellow nail. The third digit has a rubbery to firm hyper keratinized brown patino area of interest (1.2 x 1.0 cm) at the distal end which comes to within 1.2 cm of the nearest soft tissue edge (inked black). Labeled A1-distal digit #3 stump with area of interest, in relationship to skin and soft tissue edge;A2-digit #4 stump;A3-digit #5. Submitted after acid decalcification. Jar 1. emg/05/07/2025 19:11 PA(s): Sujatha Helton, MS, PA ([facility])CM By this signature, I attest that the above diagnosis is based upon my personal examination of the slides(and/or other material). Addenda/Procedures The performance characteristics of some immunohistochemical stains, fluorescence in-situ hybridization tests and immunophenotyping by flow cytometry cited in this report (if any) were determined by the Surgical Pathology and Flow Cytometry Departments at [facility] as part of an ongoing senior data quality analyst program and in compliance with federally mandated regulations drawn from the Clinical Laboratory Improvement Act of 1988 (CLIA '88). Some of these tests rely on the use of analyte specific reagents and are subject to specific labeling requirements by the US Food and Drug Administration. Such diagnostic tests may only be performed in a facility that is certified by the Department of Health and Human Services as a high complexity laboratory under CLIA '88. The FDA has determined that such clearance or approval is not necessary. This test is used for clinical purposes. It should not be regarded as investigational or for research. Nevertheless, federal rules concerning the medical use of analyte specific reagents require that the following disclaimer be attached to the report: This test was developed and its performance characteristics determined by the Surgical Pathology and Flow Cytometry Departments of [facility]. It has not been cleared or approved by the U. S. Food and Drug Administration. IMAGES AND SCANNED DOCUMENTS, IF INCLUDED, ONLY VIEWABLE IN PDF VERSION OF REPORT Delilah Adams MD PhD LAB PATHOLOGY ORDERABL ES Final Result PATHOLOGY [facility] [address] Floor [place], [place] [phone] * POCT glucose (05/06/2025 6:29 PM CDT) Glucose, POC 102 70 - 199 mg/dL Blood 05/06/2025 6:29 PM CDT 05/06/2025 6:29 PM CDT Delilah Adams MD PhD LAB POCT ORDERABLES - DEVICE Final Result [facility] Department [place] [address] * IA AN ELECTIVE ENDOTRACHEAL AIRWAY, IA AN PROCEDURE PLACEHOLDER (05/06/2025 6:18 PM CDT) Narrative Sofya Venegas CRNA - 05/06/2025 6:18 PM CDT Sofya Venegas CRNA 05/06/2025 6:18 PM Airway Patient location: OR Urgency: elective Indications for airway management: anesthesia Difficult airway: no Staff: Supervising provider: Linda Arora DO Placed by: RUSTY: Sofya Venegas CRNA Emergent airway documentation: Risks and benefits discussed: yes Consent obtained: yes Consent given by: patient Airway prep: Preoxygenated: yes Patient position: sniffing Mask difficulty assessment: 0 - not attempted Spontaneous ventilation during airway: absent Sedation level during airway: GA Final airway details: Final airway type: endotracheal airway Tube type: ETT ETT size: 8.0 mm Cuffed: yes Technique used for successful ETT placement: video laryngoscopy Devices/Methods used in placement: stylet Insertion site: oral Video blade type: Barakat Initial cuff pressure: 27 cm H2O Cuff volume: 8 mL ETT to lips: 23 cm Placement verified by: auscultation Airway secured with: silk tape Number of attempts: 1 Result [facility] Linda Arora DO ANESTHESIA ORDERABLES Final Result * IA AN PROCEDURE PLACEHOLDER (05/06/2025 6:17 PM CDT) Narrative Sofya Venegas CRNA - 05/06/2025 6:17 PM CDT Sofya Venegas CRNA 05/06/2025 6:18 PM Peripheral IV Catheter Patient location: OR Staff: Placed by: RUSTY: Sofya Venegas CRNA Preprocedure prep: Prep solution: chlorhexadine PPE: provider hat/mask and gloves PIV line: Laterality: left Site: wrist Catheter size: 18 g Technique: anatomical landmarks Procedure details: good blood return Number of attempts: 1 Assessment: Events: patient tolerated procedure well with no complications Linda Arora DO ANESTHESIA ORDERABLES Final Result * POCT glucose (05/06/2025 4:31 PM CDT) Glucose, POC 103 70 - 199 mg/dL Blood 05/06/2025 4:31 PM CDT 05/06/2025 4:31 PM CDT Delilah Adams MD PhD LAB POCT ORDERABLES - DEVICE Final Result Performing Organization Address City/[facility] Co de Phone Number [facility] Department [place] [address] * POCT glucose (05/06/2025 11:48 AM CDT) Glucose, POC 112 70 - 199 mg/dL Blood 05/06/2025 11:4 8 AM CDT 05/06/2025 11:48 AM CDT us Delilah Adams MD PhD LAB POCT ORDERABLES - DEVICE Final Result Performing Organization Address [facility] Co de Phone Number [facility] Department [place] [address] * POCT glucose (05/06/2025 7:49 AM CDT) [facility] Glucose, POC 114 70 - 199 mg/dL Blood 05/06/2025 7:49 AM CDT 05/06/2025 7:49 AM CDT Delilah Adams MD PhD LAB POCT ORDERABLES - DEVICE Final Result Performing Organization Address [facility] Co de Phone Number [facility] Department [place] [address] * (ABNORMAL) eGFR (05/06/2025 12:43 AM CDT) [facility] eGFR 24(L) >=60 mL/min/1. 73 m2 Comment: Interpretive Data Reference Interval Normal >/= 90 mL/min/1.73m2 Mildly decreased* 60 - 89 mL/min/1.73m2 Mildly to moderately decreased 45 - 59 mL/min/1.73m2 Moderately to severely decreased 30 - 44 mL/min/1.73m2 Severely decreased 15 - 29 mL/min/1.73m2 Kidney Failure < 15 mL/min/1.73m2 *Relative to young adult level Estimated glomerular filtration rate is determined by the 2021 CKD-EPI equation recommended by the National Kid[employer] (A Unifying Approach to GFR Estimation: Recommendations of the NKF-ASK Task Force on Reassessing the Inclusion of Race in Diagnosing Kidney Disease, JASN 202). The CKD-EPI equation should not be used for patients with unstable renal function and has not been validated in children and those over 70. Current interpretive data was last reviewed 2021. Blood 05/06/2025 12:4 3 AM CDT 05/06/2025 1:34 AM CDT us Delilah Adams MD PhD LAB BLOOD ORDERABLES F inal Result [facility] Department [place] [address] * Differential, auto (05/06/2025 12:43 AM CDT) Neutrophil abs 3.73 1.50 - 6.50 K/cumm Imm gran abs 0.04 0.00 - 0.10 K/cumm [facility] Lymphocyte abs 1.72 0.80 - 3.30 K/cumm [facility] Monocyte abs 0.40 0.20 - 0.80 K/cumm [facility] Eosinophil abs 0.16 0.00 - 0.50 K/cumm [facility] Basophil abs 0.06 0.00 - 0.10 K/cumm [facility] Neutrophil pct 61.0 % [facility] Comment: Interpretive Data Percent cell count reference ranges are not reported, since discordance with absolute values may lead to misinterpretation of CBC data. Current Interpretive Data was last revised on 2018. Imm gran pct 0.7 % [facility] Comment: Interpretive Data Percent cell count reference ranges are not reported, since discordance with absolute values may lead to misinterpretation of CBC data. Current Interpretive Data was last revised on 2018. Lymphocyte pct 28.2 % [facility] Comment: Interpretive Data Percent cell count reference ranges are not reported, since discordance with absolute values may lead to misinterpretation of CBC data. Current Interpretive Data was last revised on 2018. Monocyte pct 6.5 % [facility] Comment: Interpretive Data Percent cell count reference ranges are not reported, since discordance with absolute values may lead to misinterpretation of CBC data. Current Interpretive Data was last revised on 2018. Eosinophil pct 2.6 % [facility] Comment: Interpretive Data Percent cell count reference ranges are not reported, since discordance with absolute values may lead to misinterpretation of CBC data. Current Interpretive Data was last revised on 2018. Basophil pct 1.0 % [facility] Comment: Interpretive Data Percent cell count reference ranges are not reported, since discordance with absolute values may lead to misinterpretation of CBC data. Current Interpretive Data was last revised on 2018. Blood 05/06/2025 12:4 3 AM CDT 05/06/2025 1:34 AM CDT us Delilah Adams MD PhD LAB BLOOD ORDERABLES F inal Result [facility] Department [place] [address] * (ABNORMAL) CBC with auto differential (05/06/2025 12:43 AM CDT) WBC 6.11 3.80 - 9.90 K/cumm Hgb 8.2(L) 13.0 - 17.5 g/dL [facility] Hct 25.5(L) 38.9 - 50.3 % [facility] Plt 289 150 - 400 K/cumm [facility] MPV 9.4 9.1 - 12.3 fL [facility] RBC 3.04(L) 4.30 - 5.80 M/cumm [facility] MCV 83.9 81.3 - 96.4 fL [facility] MCH 27.0(L) 27.1 - 33.3 pg [facility] MCHC 32.2(L) 32.3 - 35.7 g/dL [facility] RDW CV 15.9(H) 11.1 - 14.9 % [facility] RDW SD 48.7(H) 35.7 - 48.1 fL [facility] NRBC abs 0.00 0.00 - 0.01 K/cumm [facility] Blood 05/06/2025 12:4 3 AM CDT 05/06/2025 1:34 AM CDT Delilah Adams MD PhD LAB BLOOD ORDERABLES F inal Result Performing Organization Address [facility] Co de Phone Number [facility] Department of [employer] [place] [address] * (ABNORMAL) aPTT (05/06/2025 12:43 AM CDT) [facility] aPTT 86(H) 28 - 38 sec Comment: Interpretive Data Heparin therapeutic range: 66.0 - 100.0 seconds. Range based on correlation with therapeutic heparin activity range of 0.3 - 0.7 Units/mL. Current interpretive data was last revised on 2023. Blood 05/06/2025 12:4 3 AM CDT 05/06/2025 1:42 AM CDT Narrative [facility] - 05/06/2025 1:51 AM CDT STAT PTT timing: - Draw 6 hours after heparin infusion initiation - Draw 6 hours after every dose change until 2 consecutive PTTs are therapeutic - Once 2 consecutive PTTs are therapeutic, obtain with daily labs until infusion is discontinued - - Restart every 6 hour lab draws and follow instructions accordingly if PTT is outside of therapeutic range Do not draw lab from IV line that is actively infusing heparin. Use the opposite arm. If arm with actively infusing heparin must be used, pause the infusion for at least 2 minutes, and draw specimen below the IV site. For patients with a central venous catheter (CVC), lab must be drawn peripherally (not from CVC). Delilah Adams MD PhD LAB BLOOD ORDERABLES F inal Result Performing Organization Address [facility] Co de Phone Number [facility] Department of [employer] [place] [address] * Type and screen (05/06/2025 12:43 AM CDT) Carly, indirect Negative ABO Rh O Positive [facility] Blood 05/06/2025 12:4 3 AM CDT 05/06/2025 1:35 AM CDT Narrative [facility] - 05/06/2025 3:11 AM CDT Has the patient had Daratumumab or Isatuximab in the past 6 months?->Unknown Delilah Adams MD PhD LAB BLOOD BANK TEST OR DERABLES Final Result Performing Organization Address City/[facility]/ZIP Co de Phone Number [facility] Department [place] [address] * Phosphorus (05/06/2025 12:43 AM CDT) Pathologist [facility] Phosphorus, pl 4.1 2.3 - 4.5 mg/dL Blood 05/06/2025 12:4 3 AM CDT 05/06/2025 1:34 AM CDT Delilah Adams MD PhD LAB BLOOD ORDERABLES F inal Result Performing Organization Address City/[facility] Co de Phone Number [facility] Department [place] [address] * Magnesium (05/06/2025 12:43 AM CDT) [facility] Magnesium 2.3 1.4 - 2.5 mg/dL Blood 05/06/2025 12:4 3 AM CDT 05/06/2025 1:34 AM CDT Result [facility] Delilah Adams MD PhD LAB BLOOD ORDERABLES F inal Result Performing Organization Address City/[facility]/ZIP Co de Phone Number [facility] Department [place] [address] * (ABNORMAL) Basic metabolic panel (05/06/2025 12:43 AM CDT) Sodium 141 135 - 145 mmol/L Potassium, pl 4.2 3.3 - 4.9 mmol/L [facility] Chloride 105 97 - 110 mmol/L [facility] CO2 25 22 - 32 mmol/L [facility] Anion gap 11 2 - 15 mmol/L [facility] BUN 51(H) 6 - 25 mg/dL [facility] Creatinine 2.71(H) 0.80 - 1.30 mg/dL [facility] Glucose 111 70 - 199 mg/dL [facility] Comment: Interpretive Data Fasting glucose >/= 126 mg/dl is diagnostic for diabetes. Fasting is defined as no caloric intake for at least 8 hours. Fasting glucose between 100 mg/dl to 125 mg/dl is diagnostic of prediabetes. In a patient with classic symptoms of hyperglycemia or hyperglycemic crisis, a random glucose >/= 200 mg/dl is diagnostic for diabetes. In the absence of unequivocal hyperglycemia, results should be confirmed by repeat testing. The classification and Diagnosis of Diabetes Diabetes Care 2021; 46: S19-S40. Current interpretive data was last revised 2022. Calcium 8.7 8.5 - 10.3 mg/dL [facility] Blood 05/06/2025 12:4 3 AM CDT 05/06/2025 1:34 AM CDT Delilah Adams MD PhD LAB BLOOD ORDERABLES F inal Result [facility] Department [place] [address] * POCT glucose (05/05/2025 8:07 PM CDT) Glucose, POC 183 70 - 199 mg/dL Blood 05/05/2025 8:07 PM CDT 05/05/2025 8:07 PM CDT Delilah Adams MD PhD LAB POCT ORDERABLES - DEVICE Final Result Performing Organization Address City/[facility] Co de Phone Number [facility] Department [place] [address] * (ABNORMAL) aPTT (05/05/2025 6:49 PM CDT) aPTT 95(H) 28 - 38 sec Comment: Interpretive Data Heparin therapeutic range: 66.0 - 100.0 seconds. Range based on correlation with therapeutic heparin activity range of 0.3 - 0.7 Units/mL. Current interpretive data was last revised on 2023. Blood 05/05/2025 6:49 PM CDT 05/05/2025 8:35 PM CDT Narrative [facility] - 05/05/2025 8:45 PM CDT STAT PTT timing: - Draw 6 hours after heparin infusion initiation - Draw 6 hours after every dose change until 2 consecutive PTTs are therapeutic - Once 2 consecutive PTTs are therapeutic, obtain with daily labs until infusion is discontinued - - Restart every 6 hour lab draws and follow instructions accordingly if PTT is outside of therapeutic range Do not draw lab from IV line that is actively infusing heparin. Use the opposite arm. If arm with actively infusing heparin must be used, pause the infusion for at least 2 minutes, and draw specimen below the IV site. For patients with a central venous catheter (CVC), lab must be drawn peripherally (not from CVC). us Delilah Adams MD PhD LAB BLOOD ORDERABLES F inal Result Performing Organization Address [facility] Co de Phone Number [facility] Department [place] [address] * POCT glucose (05/05/2025 5:11 PM CDT) [facility] Glucose, POC 141 70 - 199 mg/dL Blood 05/05/2025 5:11 PM CDT 05/05/2025 5:11 PM CDT Delilah Adams MD PhD LAB POCT ORDERABLES - DEVICE Final Result Performing Organization Address [facility] Co de Phone Number [facility] [employer] [place] [address] * POCT glucose (05/05/2025 11:20 AM CDT) Glucose, POC 114 70 - 199 mg/dL Blood 05/05/2025 11:2 0 AM CDT 05/05/2025 11:20 AM CDT Delilah Adams MD PhD LAB POCT ORDERABLES - DEVICE Final Result Performing Organization Address [facility] Co de Phone Number [facility] [employer] [place] [address] * Critical Result Callback Hematology (05/05/2025 10:07 AM CDT) Date Notified [id number] Time Notified 1212 [facility] TestName aPTT [facility] Called/Read Back Lupe [facility] Credentials RN [facility] Called By TP [facility] Blood 05/05/2025 10:0 7 AM CDT 05/05/2025 11:29 AM CDT Delilah Adams MD PhD LAB BLOOD ORDERABLES F inal Result Performing Organization Address [facility] Co de Phone Number [facility] [employer] [place] [address] * (ABNORMAL) aPTT (05/05/2025 10:07 AM CDT) aPTT >150(C) 28 - 38 sec Comment: Verified Interpretive Data Heparin therapeutic range: 66.0 - 100.0 seconds. Range based on correlation with therapeutic heparin activity range of 0.3 - 0.7 Units/mL. Current interpretive data was last revised on 2023. Blood 05/05/2025 10:0 7 AM CDT 05/05/2025 11:29 AM CDT N[facility]ative [facility] - 05/05/2025 12:10 PM CDT STAT PTT timing: - Draw 6 hours after heparin infusion initiation - Draw 6 hours after every dose change until 2 consecutive PTTs are therapeutic - Once 2 consecutive PTTs are therapeutic, obtain with daily labs until infusion is discontinued - - Restart every 6 hour lab draws and follow instructions accordingly if PTT is outside of therapeutic range Do not draw lab from IV line that is actively infusing heparin. Use the opposite arm. If arm with actively infusing heparin must be used, pause the infusion for at least 2 minutes, and draw specimen below the IV site. For patients with a central venous catheter (CVC), lab must be drawn peripherally (not from CVC). us Delilah Adams MD PhD LAB BLOOD ORDERABLES F inal Result Performing Organization Address City/[facility]/ZIP Co de Phone Number [facility] Department [place] [address] * Critical Result Callback Hematology (05/05/2025 8:26 AM CDT) Date Notified [id number] Time Notified 944 [facility] TestName aPTT [facility] Called/Read Back [place] [facility] Credentials RN [facility] Called By SB [facility] Blood 05/05/2025 8:26 AM CDT 05/05/2025 8:52 AM CDT us Delilah Adams MD PhD LAB BLOOD ORDERABLES F inal Result [facility] Department of [employer] [place] [address] * (ABNORMAL) aPTT (05/05/2025 8:26 AM CDT) aPTT >150(C) 28 - 38 sec Comment: No clot detected in sample Repeated and verified - [id number] - 05/05/25, 9:31 AM Interpretive Data Heparin therapeutic range: 66.0 - 100.0 seconds. Range based on correlation with therapeutic heparin activity range of 0.3 - 0.7 Units/mL. Current interpretive data was last revised on 2023. Blood 05/05/2025 8:26 AM CDT 05/05/2025 8:52 AM CDT Narrative [facility] - 05/05/2025 9:42 AM CDT STAT PTT timing: - Draw 6 hours after heparin infusion initiation - Draw 6 hours after every dose change until 2 consecutive PTTs are therapeutic - Once 2 consecutive PTTs are therapeutic, obtain with daily labs until infusion is discontinued - - Restart every 6 hour lab draws and follow instructions accordingly if PTT is outside of therapeutic range Do not draw lab from IV line that is actively infusing heparin. Use the opposite arm. If arm with actively infusing heparin must be used, pause the infusion for at least 2 minutes, and draw specimen below the IV site. For patients with a central venous catheter (CVC), lab must be drawn peripherally (not from CVC). Delilah Adams MD PhD LAB BLOOD ORDERABLES F inal Result Performing Organization Address City/[facility]/ZIP Co de Phone Number [facility] Department of [employer] [place] [address] * POCT glucose (05/05/2025 7:52 AM CDT) [facility] Glucose, POC 90 70 - 199 mg/dL Blood 05/05/2025 7:52 AM CDT 05/05/2025 7:52 AM CDT Delilah Adams MD PhD LAB POCT ORDERABLES - DEVICE Final Result Performing Organization Address [facility]/ZIP Co de Phone Number [facility] Department [place] [address] * (ABNORMAL) aPTT (05/05/2025 12:43 AM CDT) [facility] aPTT 107(H) 28 - 38 sec Comment: Interpretive Data Heparin therapeutic range: 66.0 - 100.0 seconds. Range based on correlation with therapeutic heparin activity range of 0.3 - 0.7 Units/mL. Current interpretive data was last revised on 2023. Blood 05/05/2025 12:4 3 AM CDT 05/05/2025 1:24 AM CDT Narrative [facility] - 05/05/2025 1:48 AM CDT STAT PTT timing: - Draw 6 hours after heparin infusion initiation - Draw 6 hours after every dose change until 2 consecutive PTTs are therapeutic - Once 2 consecutive PTTs are therapeutic, obtain with daily labs until infusion is discontinued - - Restart every 6 hour lab draws and follow instructions accordingly if PTT is outside of therapeutic range Do not draw lab from IV line that is actively infusing heparin. Use the opposite arm. If arm with actively infusing heparin must be used, pause the infusion for at least 2 minutes, and draw specimen below the IV site. For patients with a central venous catheter (CVC), lab must be drawn peripherally (not from CVC). us Delilah Adams MD PhD LAB BLOOD ORDERABLES F inal Result Performing Organization Address City/[facility]/ZIP Co de Phone Number [facility] Department [place] [address] * (ABNORMAL) Vancomycin level trough Draw trough 30 minutes prior to 4th dose. (05/04/2025 10:07 PM CDT) [facility] Vancomycin trough <4.0(L) 10.0 - 20.0 mcg/mL Blood 05/04/2025 10:0 7 PM CDT 05/04/2025 10:56 PM CDT Narrative [facility] - 05/04/2025 11:26 PM CDT Draw trough 30 minutes prior to 4th dose. us Pratik Bal MD LAB BLOOD ORDERABLES Fi nal Result Performing Organization Address City/[facility]/ZIP Co de Phone Number [facility] Department [place] [address] * POCT glucose (05/04/2025 7:43 PM CDT) Glucose, POC 118 70 - 199 mg/dL Blood 05/04/2025 7:43 PM CDT 05/04/2025 7:43 PM CDT us Delilah Adams MD PhD LAB POCT ORDERABLES - DEVICE Final Result [facility] Department [place] [address] * XR Foot Left 3 or More Views (05/04/2025 7:03 PM CDT) Anatomical Region Laterality Modality Lower Extremities, Foot Left Computed Radiography 05/04/2025 11:0 1 PM CDT Impressions 05/04/2025 11:01 PM CDT Interval partial amputation of the 3rd and 4th digits with small ossific fragments just distal to the proximal phalanx heads. No evidence of definite new osseous erosion to suggest radiographic evidence of acute osteoarthritis. Electronically signed by: Jitendra Whiting M.D. Narrative 05/04/2025 11:01 PM CDT EXAMINATION: XR FOOT LEFT 3 OR MORE VIEWS HISTORY: Nonhealing foot wounds, evaluate for osteomyelitis. 02/26/2025 reported amputation of the left foot 3rd and 4th digits at the proximal interphalangeal joint space COMPARISON: 02/15/2025 FINDINGS: Interval postsurgical changes of amputation of the left foot 3rd and 4th middle and distal phalanges. There are small residual ossific fragments just distal to the proximal phalanges, likely residual middle phalanx fragments, as the toes were were reportedly amputated at the proximal interphalangeal joint. There is soft tissue ulceration at these digits. Diffuse bony demineralization, which is improved from 02/15/2025. No definite new erosion. No evidence of acute fracture or dislocation. Moderate polyarticular osteoarthritis. Diffuse vascular calcifications. Large heel spur and prominent Achilles enthesophyte. Diffuse soft tissue swelling about the foot. Procedure Note Jitendra Whiting MD - 05/04/2025 EXAMINATION: XR FOOT LEFT 3 OR MORE VIEWS HISTORY: Nonhealing foot wounds, evaluate for osteomyelitis. 02/26/2025 reported amputation of the left foot 3rd and 4th digits at the proximal interphalangeal joint space COMPARISON: 02/15/2025 FINDINGS: Interval postsurgical changes of amputation of the left foot 3rd and 4th middle and distal phalanges. There are small residual ossific fragments just distal to the proximal phalanges, likely residual middle phalanx fragments, as the toes were were reportedly amputated at the proximal interphalangeal joint. There is soft tissue ulceration at these digits. Diffuse bony demineralization, which is improved from 02/15/2025. No definite new erosion. No evidence of acute fracture or dislocation. Moderate polyarticular osteoarthritis. Diffuse vascular calcifications. Large heel spur and prominent Achilles enthesophyte. Diffuse soft tissue swelling about the foot. IMPRESSION: Interval partial amputation of the 3rd and 4th digits with small ossific fragments just distal to the proximal phalanx heads. No evidence of definite new osseous erosion to suggest radiographic evidence of acute osteoarthritis. Electronically signed by: Jitendra Whiting M.D. Delilah Adams MD PhD IMG XR PROCEDURES Magda l Result * POCT glucose (05/04/2025 5:24 PM CDT) Glucose, POC 113 70 - 199 mg/dL Blood 05/04/2025 5:24 PM CDT 05/04/2025 5:24 PM CDT us Delilah Adams MD PhD LAB POCT ORDERABLES - DEVICE Final Result [facility] Department [place] [address] * Type and screen (05/04/2025 4:56 PM CDT) ABO Rh O Positive Carly, indirect Negative [facility] Blood 05/04/2025 4:56 PM CDT 05/04/2025 5:32 PM CDT Narrative [facility] - 05/04/2025 6:21 PM CDT Has the patient had Daratumumab or Isatuximab in the past 6 months?->Unknown Delilah Adams MD PhD LAB BLOOD BANK TEST OR DERABLES Final Result Performing Organization Address City/[facility] Co de Phone Number [facility] Department of [employer] [place] [address] * (ABNORMAL) eGFR (05/04/2025 4:40 PM CDT) eGFR 29(L) >=60 mL/min/1. 73 m2 Comment: Interpretive Data Reference Interval Normal >/= 90 mL/min/1.73m2 Mildly decreased* 60 - 89 mL/min/1.73m2 Mildly to moderately decreased 45 - 59 mL/min/1.73m2 Moderately to severely decreased 30 - 44 mL/min/1.73m2 Severely decreased 15 - 29 mL/min/1.73m2 Kidney Failure < 15 mL/min/1.73m2 *Relative to young adult level Estimated glomerular filtration rate is determined by the 2020 CKD-EPI equation recommended by the National Kidney Foundation (A Unifying Approach to GFR Estimation: Recommendations of the NKF-ASK Task Force on Reassessing the Inclusion of Race in Diagnosing Kidney Disease, JASN 202). The CKD-EPI equation should not be used for patients with unstable renal function and has not been validated in children and those over 70. Current interpretive data was last reviewed 2021. Blood 05/04/2025 4:40 PM CDT 05/04/2025 5:37 PM CDT Delilah Adams MD PhD LAB BLOOD ORDERABLES F inal Result Performing Organization Address [facility]/ZIP Co de Phone Number [facility] Department [place] [address] * Differential, auto (05/04/2025 4:40 PM CDT) Pathologist [facility] Neutrophil abs 4.30 1.50 - 6.50 K/cumm Imm gran abs 0.05 0.00 - 0.10 K/cumm [facility] Lymphocyte abs 1.40 0.80 - 3.30 K/cumm [facility] Monocyte abs 0.38 0.20 - 0.80 K/cumm [facility] Eosinophil abs 0.19 0.00 - 0.50 K/cumm [facility] Basophil abs 0.07 0.00 - 0.10 K/cumm [facility] Neutrophil pct 67.3 % [facility] Comment: Interpretive Data Percent cell count reference ranges are not reported, since discordance with absolute values may lead to misinterpretation of CBC data. Current Interpretive Data was last revised on 2018. Imm gran pct 0.8 % [facility] Comment: Interpretive Data Percent cell count reference ranges are not reported, since discordance with absolute values may lead to misinterpretation of CBC data. Current Interpretive Data was last revised on 2018. Lymphocyte pct 21.9 % [facility] Comment: Interpretive Data Percent cell count reference ranges are not reported, since discordance with absolute values may lead to misinterpretation of CBC data. Current Interpretive Data was last revised on 2018. Monocyte pct 5.9 % [facility] Comment: Interpretive Data Percent cell count reference ranges are not reported, since discordance with absolute values may lead to misinterpretation of CBC data. Current Interpretive Data was last revised on 2018. Eosinophil pct 3.0 % [facility] Comment: Interpretive Data Percent cell count reference ranges are not reported, since discordance with absolute values may lead to misinterpretation of CBC data. Current Interpretive Data was last revised on 2018. Basophil pct 1.1 % [facility] Comment: Interpretive Data Percent cell count reference ranges are not reported, since discordance with absolute values may lead to misinterpretation of CBC data. Current Interpretive Data was last revised on 2018. Blood 05/04/2025 4:40 PM CDT 05/04/2025 5:37 PM CDT us Pratik Bal MD LAB BLOOD ORDERABLES Fi nal Result Performing Organization Address [facility] Co de Phone Number [facility] [place] [employer] [place] [address] * (ABNORMAL) CBC with auto differential (05/04/2025 4:40 PM CDT) Pathologist [facility] WBC 6.39 3.80 - 9.90 K/cumm Hgb 8.8(L) 13.0 - 17.5 g/dL [facility] Hct 28.9(L) 38.9 - 50.3 % [facility] Plt 305 150 - 400 K/cumm [facility] MPV 9.3 9.1 - 12.3 fL [facility] RBC 3.35(L) 4.30 - 5.80 M/cumm [facility] MCV 86.3 81.3 - 96.4 fL [facility] MCH 26.3(L) 27.1 - 33.3 pg [facility] MCHC 30.4(L) 32.3 - 35.7 g/dL [facility] RDW CV 16.2(H) 11.1 - 14.9 % [facility] RDW SD 50.8(H) 35.7 - 48.1 fL [facility] NRBC abs 0.00 0.00 - 0.01 K/cumm [facility] Blood 05/04/2025 4:40 PM CDT 05/04/2025 5:37 PM CDT Pratik Bal MD LAB BLOOD ORDERABLES Fi nal Result Performing Organization Address [facility] Co de Phone Number [facility] of [employer] [place] [address] * (ABNORMAL) aPTT (05/04/2025 4:40 PM CDT) Pathologist [facility] aPTT 43(H) 28 - 38 sec Comment: Interpretive Data Heparin therapeutic range: 66.0 - 100.0 seconds. Range based on correlation with therapeutic heparin activity range of 0.3 - 0.7 Units/mL. Current interpretive data was last revised on 2023. Blood 05/04/2025 4:40 PM CDT 05/04/2025 5:35 PM CDT Narrative [facility] - 05/04/2025 5:57 PM CDT Baseline prior to heparin initiation Delilah Adams MD PhD LAB BLOOD ORDERABLES F inal Result Performing Organization Address City/[facility] Co de Phone Number [facility] [place] [employer] [place] [address] * (ABNORMAL) Protime-INR (05/04/2025 4:40 PM CDT) PT 20.1(H) 9.7 - 13.0 sec INR 1.84(H) 0.90 - 1.20 [facility] Comment: Interpretive data Oral anticoagulant therapeutic ranges: Venous thromboembolism prophylaxis or treatment: 2.0-3.0 CARDIOLOGY Standard range: 2.0-3.0 High-intensity range: 2.5-3.5 Refer to indication-specific guidelines for appropriate target ranges for prosthetic heart valve replacement. Current interpretive data was last revised on 2019. Blood 05/04/2025 4:40 PM CDT 05/04/2025 5:35 PM CDT Narrative [facility] - 05/04/2025 5:57 PM CDT Baseline prior to heparin initiation Delilah Adams MD PhD LAB BLOOD ORDERABLES F inal Result Performing Organization Address [facility] de Phone Number [facility] of [employer] [place] [address] * Phosphorus (05/04/2025 4:40 PM CDT) Phosphorus, pl 3.5 2.3 - 4.5 mg/dL Blood 05/04/2025 4:40 PM CDT 05/04/2025 5:32 PM CDT Pratik Bal MD LAB BLOOD ORDERABLES Fi nal Result [facility] Department of [employer] [place] [address] * Magnesium (05/04/2025 4:40 PM CDT) Pathologist [facility] Magnesium 2.2 1.4 - 2.5 mg/dL Blood 05/04/2025 4:40 PM CDT 05/04/2025 5:32 PM CDT Pratik Bal MD LAB BLOOD ORDERABLES Fi nal Result Performing Organization Address [facility] de Phone Number [facility] [place] [employer] [place] [address] * (ABNORMAL) Hemoglobin A1c (05/04/2025 4:40 PM CDT) Pathologist [facility] Hgb A1C 6.2(H) 4.0 - 5.6 % Estimated Average Glucose 131 mg/dL [facility] Comment: The ADA recommends reporting an estimated Average Glucose (eAG) with all Hemoglobin A1c results using the equation derived from a study of 507 normal and diabetic adults. Minority populations were underrepresented and children were not included. (Diabetes Care 2020; 43(S1): S66-S76). The eAG is not equivalent to a fasting glucose. Blood 05/04/2025 4:40 PM CDT 05/04/2025 5:42 PM CDT Narrative [facility] - 05/05/2025 8:17 AM CDT Reflex Delilah Adams MD PhD LAB BLOOD ORDERABLES F inal Result Performing Organization Address [facility] Co de Phone Number [facility] [place] [address] * (ABNORMAL) Basic metabolic panel (05/04/2025 4:40 PM CDT) Sodium 137 135 - 145 mmol/L Potassium, pl 4.7 3.3 - 4.9 mmol/L [facility] Comment:Hemolyzed; Potassium value may be falsely elevated by as much as 0.3-0.5 mmol/L. Suggest redraw and reanalysis. Chloride 102 97 - 110 mmol/L [facility] CO2 25 22 - 32 mmol/L [facility] Anion gap 10 2 - 15 mmol/L [facility] BUN 41(H) 6 - 25 mg/dL [facility] Creatinine 2.31(H) 0.80 - 1.30 mg/dL [facility] Glucose 110 70 - 199 mg/dL [facility] Comment: Interpretive Data Fasting glucose >/= 126 mg/dl is diagnostic for diabetes. Fasting is defined as no caloric intake for at least 8 hours. Fasting glucose between 100 mg/dl to 125 mg/dl is diagnostic of prediabetes. In a patient with classic symptoms of hyperglycemia or hyperglycemic crisis, a random glucose >/= 200 mg/dl is diagnostic for diabetes. In the absence of unequivocal hyperglycemia, results should be confirmed by repeat testing. The classification and Diagnosis of Diabetes Diabetes Care 2021; 46: S19-S40. Current interpretive data was last revised 2022. Calcium 8.7 8.5 - 10.3 mg/dL [facility] Blood 05/04/2025 4:40 PM CDT 05/04/2025 5:32 PM CDT us Delilah Adams MD PhD LAB BLOOD ORDERABLES F inal Result [facility] Department [place] [address] * US Arterial Doppler Lower Extremity Bilateral (05/01/2025 9:08 AM CDT) Anatomical Region Laterality Modality Vascular Bilateral Ultrasound 05/01/2025 8:19 AM CDT Narrative 05/01/2025 8:54 PM CDT [facility] - Department of Vascular Surgery, Vascular Laboratory [address] [place] [address] Lower Extremity Arterial Doppler Report Patient Name: GREGORY KAT : 1955 Study Date: 05/01/2025 8:19:00 AM Gender: M Tech: Haydee Hills RDMS,DORENET Location: [facility] Provider: DELILAH ADAMS Quality: Technically difficult Order Provider: DELILAH ADAMS PROCEDURES: Arterial Report: Bilateral lower extremity arterial Doppler exam at rest. INDICATIONS: Z48.812 Encounter for surgical aftercare following surgery on the circulatory system and I73.9 Peripheral vascular disease, unspecified. MEASUREMENTS: Right Value Units Left Value Units Rt Brachial Pressure 153 mmHg Lt Brachial Pressure 157 mmHg Rt BREAK OFF WORKER Pressure >255 mmHg Lt BREAK OFF WORKER Pressure >255 mmHg Rt DPA Pressure >255 mmHg Lt DPA Pressure >255 mmHg Rt 1st Digit Pressure 97 mmHg Lt 1st Digit Pressure 27 mmHg Rt PT ISACC Resting N/C Lt PT ISACC Resting N/C Rt AT ISACC Resting N/C Lt AT ISACC Resting N/C Rt Digit/Arm Index 0.62 Lt Digit/Arm Index 0.17 Right Value Units Left Value Units FINDINGS: Performing [employer] Machine: Haydee Mcdermott RDMS, HORTENSIA. Right Common Femoral Artery Analysis: The common femoral artery waveform is multiphasic. Right Popliteal Artery Analysis: The popliteal waveform is monophasic. Right Posterior Tibial Artery Analysis: The posterior tibial waveform is monophasic. Right Anterior Tibial Artery Analysis: The anterior tibial waveform is monophasic. Right Digits: Normal right digit pressure and waveform. Left Common Femoral Artery Analysis: The common femoral artery waveform is multiphasic. Left Popliteal Artery Analysis: The popliteal waveform is barely multiphasic. Left Posterior Tibial Artery Analysis: The posterior tibial waveform is monophasic. Left Anterior Tibial Artery Analysis: The anterior tibial waveform is monophasic. Left Digits: The left digit waveform is dampened. CONCLUSIONS: 1. The ankle arteries are non-compressible bilaterally which is consistent with arterial calcification thus the Ankle/Brachial Indices are not obtainable. 2. Right Digit/Arm Index is within normal limits (for reference, normal CARY is >0.6). 3. Left Digit/Arm Index is abnormal (for reference, abnormal CARY is <0.6). 4. There is evidence of right leg arterial insufficiency at the level of femoral-popliteal arteries. 5. There is evidence of left leg arterial insufficiency at the level of infrapopliteal arteries. HISTORY: PVD, CHF, DM2 ANGIOPLASTY - FEMORAL ARTERY, BILATERAL LOWER EXTREMITY ANGIOGRAM, CO2 ANGIOGRAM (Left) AMPUTATION TOE (Left)- 02/26/2025. PREVIOUS STUDIES: Previous study on 01/27/2025- non-compressible. DISCLAIMER: The study images and the final report will be retained in the patient chart by the Vascular Laboratory for the legally required time period. This chart constitutes the legal record of any testing performed. ATTESTATION: I have reviewed and interpreted the pertinent images and measurements of this study. I attest to the conclusions in the final report that is provided above. Electronically Signed By: Jitendra Estrada MD [facility] [phone] 05/01/2025 8:40:32 PM CDT Procedure Note Jitendra Estrada MD - 05/01/2025 [facility] - Department of Vascular Surgery,Vascular Laboratory [address] [place] [id number] Lower Extremity Arterial Doppler Report Patient Name: GREGORY KAT : 1955 Study Date: 05/01/2025 8:19:00 AM Gender: M Tech: Haydee Hills RDMS,HORTENSIA Location: [facility] Provider: DELILAH ADAMS Quality: Technically difficult Order Provider: DELILAH ADAMS PROCEDURES: Arterial Report: Bilateral lower extremity arterial Doppler exam at rest. INDICATIONS: Z48.812 Encounter for surgical aftercare following surgery on thecirculatory system and I73.9 Peripheral vascular disease, unspecified. MEASUREMENTS: Right Value Units Left Value Units Rt Brachial Pressure 153 mmHg Lt Brachial Pressure 157 mmHg Rt BREAK OFF WORKER Pressure >255 mmHg Lt BREAK OFF WORKER Pressure >255 mmHg Rt DPA Pressure >255 mmHg Lt DPA Pressure >255 mmHg Rt 1st Digit Pressure 97 mmHg Lt 1st Digit Pressure 27 mmHg Rt PT ISACC Resting N/C Lt PT ISACC Resting N/C Rt AT ISACC Resting N/C Lt AT ISACC Resting N/C Rt Digit/Arm Index 0.62 Lt Digit/Arm Index 0.17 Right Value Units Left Value Units FINDINGS: Performing [employer] Machine: Haydee Mcdermott RDMS, RVT. Right Common Femoral Artery Analysis: The common femoral artery waveform is multiphasic. Right Popliteal Artery Analysis: The popliteal waveform is monophasic. Right Posterior Tibial Artery Analysis: The posterior tibial waveform is monophasic. Right Anterior Tibial Artery Analysis: The anterior tibial waveform is monophasic. Right Digits: Normal right digit pressure and waveform. Left Common Femoral Artery Analysis: The common femoral artery waveform is multiphasic. Left Popliteal Artery Analysis: The popliteal waveform is barely multiphasic. Left Posterior Tibial Artery Analysis: The posterior tibial waveform is monophasic. Left Anterior Tibial Artery Analysis: The anterior tibial waveform is monophasic. Left Digits: The left digit waveform is dampened. CONCLUSIONS: 1. The ankle arteries are non-compressible bilaterally which is consistentwith arterial calcification thus the Ankle/Brachial Indices are not obtainable. 2. Right Digit/Arm Index is within normal limits (for reference, normalDAI is >0.6). 3. Left Digit/Arm Index is abnormal (for reference, abnormal CARY is<0.6). 4. There is evidence of right leg arterial insufficiency at the level of femoral-popliteal arteries. 5. There is evidence of left leg arterial insufficiency at the level ofinfrapopliteal arteries. HISTORY: PVD, CHF, DM2 ANGIOPLASTY - FEMORAL ARTERY, BILATERAL LOWER EXTREMITY ANGIOGRAM, [id number] (Left) AMPUTATION TOE (Left)- 02/26/2025. PREVIOUS STUDIES: Previous study on 01/27/2025- non-compressible. DISCLAIMER: The study images and the final report will be retained in the patientchart by the Vascular Laboratory for the legally required time period. This chartconstitutes the legal record of any testing performed. ATTESTATION: I have reviewed and interpreted the pertinent images and measurements ofthis study. I attest to the conclusions in the final report that is provided above. Electronically Signed By: Jitendra Estrada MD [facility] [phone] 05/01/2025 8:40:32 PM CDT us Delilah Adams MD PhD IMG US PROCEDURES Magda l Result * Cardiology Document Scan (04/15/2025 5:02 PM CDT) Anatomical Region Laterality Modality Other us Oliver Sanchez MD [facility] CARDIAC SERVICES PROCEDURES F inal Result * POCT glucose (03/02/2025 11:49 AM CDT) Glucose, POC 169 70 - 199 mg/dL Blood 03/02/2025 11:4 9 AM CDT 03/02/2025 11:49 AM CDT Delilah Adams MD PhD LAB POCT ORDERABLES - DEVICE Final Result Performing Organization Address [facility] de Phone Number [facility] [place] [address] * POCT glucose (03/02/2025 7:59 AM CDT) Glucose, POC 111 70 - 199 mg/dL Blood 03/02/2025 7:59 AM CDT 03/02/2025 7:59 AM CDT Result [facility] Delilah Adams MD PhD LAB POCT ORDERABLES - DEVICE Final Result Performing Organization Address [facility] de Phone Number [facility] Department [place] [address] * Potassium, whole blood (03/01/2025 11:23 PM CDT) Potassium, bld 4.9 3.3 - 4.9 mmol/L Blood 03/01/2025 11:2 3 PM CDT 03/01/2025 11:33 PM CDT Result [facility] Светлана Stoll MANAGER EMBALMER FUNERAL DIRECTOR LAB BLOOD ORDERABLES Final Result Performing Organization Address [facility] Co de Phone Number [facility] [employer] [place] [address] * POCT glucose (03/01/2025 7:23 PM CDT) Glucose, POC 189 70 - 199 mg/dL Blood 03/01/2025 7:23 PM CDT 03/01/2025 7:23 PM CDT Result [facility] Delilah Adams MD PhD LAB POCT ORDERABLES - DEVICE Final Result [facility] [employer] [place] [address] * POCT glucose (03/01/2025 5:34 PM CDT) Glucose, POC 138 70 - 199 mg/dL Blood 03/01/2025 5:34 PM CDT 03/01/2025 5:34 PM CDT Delilah Adams MD PhD LAB POCT ORDERABLES - DEVICE Final Result Performing Organization Address City/[facility] Co de Phone Number [facility] [employer] [place] [address] * POCT glucose (03/01/2025 11:46 AM CDT) Glucose, POC 133 70 - 199 mg/dL Blood 03/01/2025 11:4 6 AM CDT 03/01/2025 11:46 AM CDT Delilah Adams MD PhD LAB POCT ORDERABLES - DEVICE Final Result Performing Organization Address City/[facility]/ZIP Co de Phone Number [facility] [place] [employer] [place] [address] * POCT glucose (03/01/2025 7:24 AM CDT) Glucose, POC 141 70 - 199 mg/dL Blood 03/01/2025 7:24 AM CDT 03/01/2025 7:24 AM CDT Delilah Adams MD PhD LAB POCT ORDERABLES - DEVICE Final Result [facility] [employer] [place] [address] * Potassium, whole blood (02/28/2025 11:35 PM CDT) Potassium, bld 4.7 3.3 - 4.9 mmol/L Blood 02/28/2025 11:3 5 PM CDT 02/28/2025 11:51 PM CDT Светлнаа Stoll MANAGER EMBALMER FUNERAL DIRECTOR LAB BLOOD ORDERABLES Final Result [facility] Department [place] [address] * (ABNORMAL) eGFR (02/28/2025 11:35 PM CDT) eGFR 32(L) >=60 mL/min/1. 73 m2 Comment: Interpretive Data Reference Interval Normal >/= 90 mL/min/1.73m2 Mildly decreased* 60 - 89 mL/min/1.73m2 Mildly to moderately decreased 45 - 59 mL/min/1.73m2 Moderately to severely decreased 30 - 44 mL/min/1.73m2 Severely decreased 15 - 29 mL/min/1.73m2 Kidney Failure < 15 mL/min/1.73m2 *Relative to young adult level Estimated glomerular filtration rate is determined by the 2020 CKD-EPI equation recommended by the National Kidney Foundation (A Unifying Approach to GFR Estimation: Recommendations of the NKF-ASK Task Force on Reassessing the Inclusion of Race in Diagnosing Kidney Disease, JASN 2020). The CKD-EPI equation should not be used for patients with unstable renal function and has not been validated in children and those over 70. Current interpretive data was last reviewed 2021. Blood 02/28/2025 11:3 5 PM CDT 03/01/2025 12:12 AM CDT Delilah Adams MD PhD LAB BLOOD ORDERABLES F inal Result [facility] Department [place] [address] * (ABNORMAL) CBC without differential (02/28/2025 11:35 PM CDT) Pathologist [facility] WBC 10.60(H) 3.80 - 9.90 K/cumm Hgb 9.0(L) 13.0 - 17.5 g/dL [facility] Hct 29.3(L) 38.9 - 50.3 % [facility] Plt 274 150 - 400 K/cumm [facility] MPV 9.5 9.1 - 12.3 fL [facility] RBC 3.41(L) 4.30 - 5.80 M/cumm [facility] MCV 85.9 81.3 - 96.4 fL [facility] MCH 26.4(L) 27.1 - 33.3 pg [facility] MCHC 30.7(L) 32.3 - 35.7 g/dL [facility] RDW CV 15.5(H) 11.1 - 14.9 % [facility] RDW SD 48.3(H) 35.7 - 48.1 fL [facility] NRBC abs 0.00 0.00 - 0.01 K/cumm [facility] Blood 02/28/2025 11:3 5 PM CDT 03/01/2025 12:12 AM CDT Delilah Adams MD PhD LAB BLOOD ORDERABLES F inal Result Performing Organization Address City/[facility] Co de Phone Number [facility] Department [place] [address] * Phosphorus (02/28/2025 11:35 PM CDT) Pathologist [facility] Phosphorus, pl 4.1 2.3 - 4.5 mg/dL Blood 02/28/2025 11:3 5 PM CDT 03/01/2025 12:12 AM CDT Delilah Adams MD PhD LAB BLOOD ORDERABLES F inal Result [facility] Department [place] [address] * Magnesium (02/28/2025 11:35 PM CDT) Pathologist [facility] Magnesium 2.3 1.4 - 2.5 mg/dL Blood 02/28/2025 11:3 5 PM CDT 03/01/2025 12:12 AM CDT Delilah Adams MD PhD LAB BLOOD ORDERABLES F inal Result Performing Organization Address [facility] Co de Phone Number [facility] [place] [address] * (ABNORMAL) Basic metabolic panel (02/28/2025 11:35 PM CDT) [facility] Sodium 140 135 - 145 mmol/L Potassium, pl 4.8 3.3 - 4.9 mmol/L [facility] Chloride 107 97 - 110 mmol/L [facility] CO2 23 22 - 32 mmol/L [facility] Anion gap 10 2 - 15 mmol/L [facility] BUN 46(H) 6 - 25 mg/dL [facility] Creatinine 2.15(H) 0.80 - 1.30 mg/dL [facility] Glucose 153 70 - 199 mg/dL [facility] Comment: Interpretive Data Fasting glucose >/= 126 mg/dl is diagnostic for diabetes. Fasting is defined as no caloric intake for at least 8 hours. Fasting glucose between 100 mg/dl to 125 mg/dl is diagnostic of prediabetes. In a patient with classic symptoms of hyperglycemia or hyperglycemic crisis, a random glucose >/= 200 mg/dl is diagnostic for diabetes. In the absence of unequivocal hyperglycemia, results should be confirmed by repeat testing. The classification and Diagnosis of Diabetes Diabetes Care 2021; 46: S19-S40. Current interpretive data was last revised 2022. Calcium 8.6 8.5 - 10.3 mg/dL [facility] Blood 02/28/2025 11:3 5 PM CDT 03/01/2025 12:12 AM CDT Delilah Adams MD PhD LAB BLOOD ORDERABLES F inal Result [facility] Department [place] [address] * XR Abdomen Ap 1 Vw (02/28/2025 10:26 PM CDT) Anatomical Region Laterality Modality Body, Abdomen N/A Computed Radiogr aphy 03/01/2025 9:57 AM CDT Impressions 03/01/2025 10:00 AM CDT There is a normal bowel gas pattern. Dictated by: Shelly Holden M.D. The radiology attending physician has personally reviewed this study, and had reviewed and/or edited this written report and agrees with it. Electronically signed by: Marlene Saenz M.D. Narrative 03/01/2025 10:00 AM CDT EXAMINATION: Abdomen, one view. HISTORY: Ileus COMPARISON: 02/26/2025 Procedure Note Marlene Saenz MD - 03/01/2025 EXAMINATION: Abdomen, one view. HISTORY: Ileus COMPARISON: 02/26/2025 IMPRESSION: There is a normal bowel gas pattern. Dictated by: Shelly Holden M.D. The radiology attending physician has personally reviewed this study, and had reviewed and/or edited this written report and agrees with it. Electronically signed by: Marlene Saenz M.D. Result [facility] Delilah Adams MD PhD IMG XR PROCEDURES Magda l Result * POCT glucose (02/28/2025 7:12 PM CDT) Glucose, POC 175 70 - 199 mg/dL Blood 02/28/2025 7:12 PM CDT 02/28/2025 7:12 PM CDT Delilah Adams MD PhD LAB POCT ORDERABLES - DEVICE Final Result Performing Organization Address City/[facility]/ZIP Co de Phone Number [facility] [employer] [place] [address] * (ABNORMAL) POCT glucose (02/28/2025 4:39 PM CDT) Glucose, POC 200(H) 70 - 199 mg/dL Blood 02/28/2025 4:39 PM CDT 02/28/2025 4:39 PM CDT Delilah Adams MD PhD LAB POCT ORDERABLES - DEVICE Final Result Performing Organization Address [facility] Co de Phone Number [facility] [place] [address] * POCT glucose (02/28/2025 11:39 AM CDT) Glucose, POC 143 70 - 199 mg/dL Blood 02/28/2025 11:3 9 AM CDT 02/28/2025 11:39 AM CDT Delilah Adams MD PhD LAB POCT ORDERABLES - DEVICE Final Result Performing Organization Address [facility] Co de Phone Number [facility] [employer] [place] [address] * POCT glucose (02/28/2025 7:33 AM CDT) Glucose, POC 125 70 - 199 mg/dL Blood 02/28/2025 7:33 AM CDT 02/28/2025 7:33 AM CDT Delilah Adams MD PhD LAB POCT ORDERABLES - DEVICE Final Result Performing Organization Address City/[facility] Co de Phone Number [facility] Department [place] [address] * (ABNORMAL) aPTT (02/28/2025 6:02 AM CDT) aPTT 42(H) 28 - 38 sec Comment: Interpretive Data Heparin therapeutic range: 66.0 - 100.0 seconds. Range based on correlation with therapeutic heparin activity range of 0.3 - 0.7 Units/mL. Current interpretive data was last revised on 2023. Blood 02/28/2025 6:02 AM CDT 02/28/2025 6:48 AM CDT Narrative [facility] - 02/28/2025 7:10 AM CDT STAT PTT timing: - Draw 6 hours after heparin infusion initiation - Draw 6 hours after every dose change until 2 consecutive PTTs are therapeutic - Once 2 consecutive PTTs are therapeutic, obtain with daily labs until infusion is discontinued - - Restart every 6 hour lab draws and follow instructions accordingly if PTT is outside of therapeutic range Do not draw lab from IV line that is actively infusing heparin. Use the opposite arm. If arm with actively infusing heparin must be used, pause the infusion for at least 2 minutes, and draw specimen below the IV site. For patients with a central venous catheter (CVC), lab must be drawn peripherally (not from CVC). Delilah Adams MD PhD LAB BLOOD ORDERABLES F inal Result [facility] [place] [address] * Potassium, whole blood (02/27/2025 8:15 PM CDT) Pathologist [facility] Potassium, bld 4.9 3.3 - 4.9 mmol/L Blood 02/27/2025 8:15 PM CDT 02/27/2025 8:28 PM CDT Светлана Stoll NP LAB BLOOD ORDERABLES Final Result [facility] [place] [address] * (ABNORMAL) eGFR (02/27/2025 8:15 PM CDT) eGFR 31(L) >=60 mL/min/1. 73 m2 Comment: Interpretive Data Reference Interval Normal >/= 90 mL/min/1.73m2 Mildly decreased* 60 - 89 mL/min/1.73m2 Mildly to moderately decreased 45 - 59 mL/min/1.73m2 Moderately to severely decreased 30 - 44 mL/min/1.73m2 Severely decreased 15 - 29 mL/min/1.73m2 Kidney Failure < 15 mL/min/1.73m2 *Relative to young adult level Estimated glomerular filtration rate is determined by the 2020 CKD-EPI equation recommended by the National Kidney Foundation (A Unifying Approach to GFR Estimation: Recommendations of the NKF-ASK Task Force on Reassessing the Inclusion of Race in Diagnosing Kidney Disease, JASN 2020). The CKD-EPI equation should not be used for patients with unstable renal function and has not been validated in children and those over 70. Current interpretive data was last reviewed 2021. Blood 02/27/2025 8:15 PM CDT 02/27/2025 8:37 PM CDT Delilah Adams MD PhD LAB BLOOD ORDERABLES F inal Result [facility] Department [place] [address] * (ABNORMAL) aPTT (02/27/2025 8:15 PM CDT) aPTT 136(H) 28 - 38 sec Comment: No clot detected in sample Repeated and verified - [id number] - 02/27/25, 9:08 PM Interpretive Data Heparin therapeutic range: 66.0 - 100.0 seconds. Range based on correlation with therapeutic heparin activity range of 0.3 - 0.7 Units/mL. Current interpretive data was last revised on 2023. Blood 02/27/2025 8:15 PM CDT 02/27/2025 8:39 PM CDT Narrative [facility] - 02/27/2025 9:09 PM CDT STAT PTT timing: - Draw 6 hours after heparin infusion initiation - Draw 6 hours after every dose change until 2 consecutive PTTs are therapeutic - Once 2 consecutive PTTs are therapeutic, obtain with daily labs until infusion is discontinued - - Restart every 6 hour lab draws and follow instructions accordingly if PTT is outside of therapeutic range Do not draw lab from IV line that is actively infusing heparin. Use the opposite arm. If arm with actively infusing heparin must be used, pause the infusion for at least 2 minutes, and draw specimen below the IV site. For patients with a central venous catheter (CVC), lab must be drawn peripherally (not from CVC). us Delilah Adams MD PhD LAB BLOOD ORDERABLES F inal Result [facility] Department [place] [address] * (ABNORMAL) CBC without differential (02/27/2025 8:15 PM CDT) [facility] WBC 10.03(H) 3.80 - 9.90 K/cumm Hgb 9.3(L) 13.0 - 17.5 g/dL [facility] Hct 30.2(L) 38.9 - 50.3 % [facility] Plt 252 150 - 400 K/cumm [facility] MPV 9.6 9.1 - 12.3 fL [facility] RBC 3.53(L) 4.30 - 5.80 M/cumm [facility] MCV 85.6 81.3 - 96.4 fL [facility] MCH 26.3(L) 27.1 - 33.3 pg [facility] MCHC 30.8(L) 32.3 - 35.7 g/dL [facility] RDW CV 15.5(H) 11.1 - 14.9 % [facility] RDW SD 47.4 35.7 - 48.1 fL [facility] NRBC abs 0.00 0.00 - 0.01 K/cumm [facility] Blood 02/27/2025 8:15 PM CDT 02/27/2025 8:37 PM CDT Delilah Adams MD PhD LAB BLOOD ORDERABLES F inal Result Performing Organization Address City/[facility] Co de Phone Number [facility] [employer] [place] [address] * Phosphorus (02/27/2025 8:15 PM CDT) [facility] Phosphorus, pl 3.9 2.3 - 4.5 mg/dL Blood 02/27/2025 8:15 PM CDT 02/27/2025 8:37 PM CDT Delilah Adams MD PhD LAB BLOOD ORDERABLES F inal Result Performing Organization Address City/[facility] Co de Phone Number [facility] Department of [employer] [place] [address] * Magnesium (02/27/2025 8:15 PM CDT) [facility] Magnesium 2.4 1.4 - 2.5 mg/dL Blood 02/27/2025 8:15 PM CDT 02/27/2025 8:37 PM CDT Result [facility] Delilah Adams MD PhD LAB BLOOD ORDERABLES F inal Result Performing Organization Address City/[facility] [place] [address] * (ABNORMAL) Basic metabolic panel (02/27/2025 8:15 PM CDT) [facility] Sodium 137 135 - 145 mmol/L Potassium, pl 5.0(H) 3.3 - 4.9 mmol/L [facility] Chloride 107 97 - 110 mmol/L [facility] CO2 21(L) 22 - 32 mmol/L [facility] Anion gap 9 2 - 15 mmol/L [facility] BUN 41(H) 6 - 25 mg/dL [facility] Creatinine 2.18(H) 0.80 - 1.30 mg/dL [facility] Glucose 152 70 - 199 mg/dL [facility] Comment: Interpretive Data Fasting glucose >/= 126 mg/dl is diagnostic for diabetes. Fasting is defined as no caloric intake for at least 8 hours. Fasting glucose between 100 mg/dl to 125 mg/dl is diagnostic of prediabetes. In a patient with classic symptoms of hyperglycemia or hyperglycemic crisis, a random glucose >/= 200 mg/dl is diagnostic for diabetes. In the absence of unequivocal hyperglycemia, results should be confirmed by repeat testing. The classification and Diagnosis of Diabetes Diabetes Care 2021; 46: S19-S40. Current interpretive data was last revised 2022. Calcium 8.4(L) 8.5 - 10.3 mg/dL [facility] Blood 02/27/2025 8:15 PM CDT 02/27/2025 8:37 PM CDT Delilah Adams MD PhD LAB BLOOD ORDERABLES F inal Result [facility] Department of [employer] [place] [address] * POCT glucose (02/27/2025 8:09 PM CDT) [facility] Signature Glucose, POC 157 70 - 199 mg/dL Blood 02/27/2025 8:09 PM CDT 02/27/2025 8:09 PM CDT Delilah Adams MD PhD LAB POCT ORDERABLES - DEVICE Final Result [facility] Department [place] [address] * POCT glucose (02/27/2025 4:08 PM CDT) Pathologist [facility] Glucose, POC 163 70 - 199 mg/dL Blood 02/27/2025 4:08 PM CDT 02/27/2025 4:08 PM CDT Delilah Adams MD PhD LAB POCT ORDERABLES - DEVICE Final Result Performing Organization Address [facility] Co de Phone Number [facility] Department [place] [address] * (ABNORMAL) aPTT (02/27/2025 12:19 PM CDT) [facility] aPTT 41(H) 28 - 38 sec Comment: Interpretive Data Heparin therapeutic range: 66.0 - 100.0 seconds. Range based on correlation with therapeutic heparin activity range of 0.3 - 0.7 Units/mL. Current interpretive data was last revised on 2023. Blood 02/27/2025 12:1 9 PM CDT 02/27/2025 12:52 PM CDT Narrative [facility] - 02/27/2025 1:16 PM CDT STAT PTT timing: - Draw 6 hours after heparin infusion initiation - Draw 6 hours after every dose change until 2 consecutive PTTs are therapeutic - Once 2 consecutive PTTs are therapeutic, obtain with daily labs until infusion is discontinued - - Restart every 6 hour lab draws and follow instructions accordingly if PTT is outside of therapeutic range Do not draw lab from IV line that is actively infusing heparin. Use the opposite arm. If arm with actively infusing heparin must be used, pause the infusion for at least 2 minutes, and draw specimen below the IV site. For patients with a central venous catheter (CVC), lab must be drawn peripherally (not from CVC). Delilah Adams MD PhD LAB BLOOD ORDERABLES F inal Result Performing Organization Address [facility]/ZIP Co de Phone Number [facility] Department [place] [address] * (ABNORMAL) Potassium (02/27/2025 12:19 PM CDT) Potassium, pl 5.0(H) 3.3 - 4.9 mmol/L Blood 02/27/2025 12:1 9 PM CDT 02/27/2025 12:46 PM CDT Narrative [facility] - 02/27/2025 1:20 PM CDT Provider to discontinue after two normal results. Delilah Adams MD PhD LAB BLOOD ORDERABLES F inal Result [facility] [employer] [place] [address] * POCT glucose (02/27/2025 11:07 AM CDT) Glucose, POC 102 70 - 199 mg/dL Blood 02/27/2025 11:0 7 AM CDT 02/27/2025 11:07 AM CDT Delilah Adams MD PhD LAB POCT ORDERABLES - DEVICE Final Result Performing Organization Address City/[facility] Co de Phone Number [facility] [employer] [place] [address] * (ABNORMAL) Potassium (02/27/2025 9:21 AM CDT) Potassium, pl 5.1(H) 3.3 - 4.9 mmol/L Blood 02/27/2025 9:21 AM CDT 02/27/2025 9:45 AM CDT Narrative [facility] - 02/27/2025 10:08 AM CDT Provider to discontinue after two normal results. Delilah Adams MD PhD LAB BLOOD ORDERABLES F inal Result [facility] [employer] [place] [address] * ECG 12 lead (02/27/2025 9:09 AM CDT) [facility] Ventricular Rate EKG/Min 78 BPM [facility] Atrial Rate 78 BPM [facility] IA-Interval (MSEC) 300 ms [facility] QRS-Interval (MSEC) 116 ms [facility] QT-Interval (MSEC) 450 ms [facility] QTc 513 ms [facility] P [place] 39 degrees [facility] R [place] 101 degrees [facility] T [place] 78 degrees [facility] Diagnosis Atrial-paced rhythm with prolonged AV conduction Low voltage QRS Right bundle branch block T wave abnormality, consider lateral ischemia Abnormal ECG When compared with ECG of 26-FEB-2025 23:03, (unconfirmed) QT has lengthened Confirmed by JAMARI EDWARDS M.D ([id number]) on 02/28/2025 8:33:08 AM [facility] 02/27/2025 9:09 AM CDT 02/28/2025 8:33 AM CDT us Светлана Stoll NP ECG ORDERABLES Final Result [facility] * POCT glucose (02/27/2025 7:28 AM CDT) [facility] Glucose, POC 116 70 - 199 mg/dL Blood 02/27/2025 7:28 AM CDT 02/27/2025 7:28 AM CDT us Delilah Adams MD PhD LAB POCT ORDERABLES - DEVICE Final Result [facility] Department [place] [address] * (ABNORMAL) aPTT (02/27/2025 4:38 AM CDT) Pathologist [facility] aPTT 53(H) 28 - 38 sec Comment: Interpretive Data Heparin therapeutic range: 66.0 - 100.0 seconds. Range based on correlation with therapeutic heparin activity range of 0.3 - 0.7 Units/mL. Current interpretive data was last revised on 2023. Blood 02/27/2025 4:38 AM CDT 02/27/2025 5:33 AM CDT Narrative [facility] - 02/27/2025 6:00 AM CDT STAT PTT timing: - Draw 6 hours after heparin infusion initiation - Draw 6 hours after every dose change until 2 consecutive PTTs are therapeutic - Once 2 consecutive PTTs are therapeutic, obtain with daily labs until infusion is discontinued - - Restart every 6 hour lab draws and follow instructions accordingly if PTT is outside of therapeutic range Do not draw lab from IV line that is actively infusing heparin. Use the opposite arm. If arm with actively infusing heparin must be used, pause the infusion for at least 2 minutes, and draw specimen below the IV site. For patients with a central venous catheter (CVC), lab must be drawn peripherally (not from CVC). us Delilah Adams MD PhD LAB BLOOD ORDERABLES F inal Result Performing Organization Address City/[facility] Co de Phone Number [facility] Department of Laboratories [place], [place] [id number] * (ABNORMAL) Potassium (02/27/2025 4:38 AM CDT) [facility] Potassium, pl 5.4(H) 3.3 - 4.9 mmol/L Blood 02/27/2025 4:38 AM CDT 02/27/2025 5:43 AM CDT Narrative [facility] - 02/27/2025 6:18 AM CDT Provider to discontinue after two normal results. us Delilah Adams MD PhD LAB BLOOD ORDERABLES F inal Result [facility] [place] [address] * (ABNORMAL) Potassium, whole blood (02/27/2025 12:06 AM CDT) Pathologist [facility] Potassium, bld 5.3(H) 3.3 - 4.9 mmol/L Comment:Reviewed. Blood 02/27/2025 12:0 6 AM CDT 02/27/2025 12:33 AM CDT Delilah Adams MD PhD LAB BLOOD ORDERABLES F inal Result [facility] Department [place] [address] * ECG 12 lead (02/26/2025 11:03 PM CDT) [facility] Ventricular Rate EKG/Min 70 BPM [facility] Atrial Rate 70 BPM [facility] IA-Interval (MSEC) 318 ms [facility] QRS-Interval (MSEC) 120 ms [facility] QT-Interval (MSEC) 428 ms [facility] QTc 462 ms [facility] P [place] 23 degrees [facility] R [place] 81 degrees [facility] T [place] 51 degrees [facility] Diagnosis Atrial-paced rhythm with prolonged AV conduction Right bundle branch block Abnormal ECG When compared with ECG of 16-FEB-2025 00:21, No significant change was found Confirmed by NEGRO LYNN M.D ([id number]) on 02/27/2025 4:30:40 PM [facility] 02/26/2025 11:0 3 PM CDT 02/27/2025 4:30 PM CDT Delilah Adams MD PhD ECG ORDERABLES Final Result [facility] [employer] [facility] * (ABNORMAL) eGFR (02/26/2025 9:44 PM CDT) Pathologist [facility] eGFR 42(L) >=60 mL/min/1. 73 m2 Comment: Interpretive Data Reference Interval Normal >/= 90 mL/min/1.73m2 Mildly decreased* 60 - 89 mL/min/1.73m2 Mildly to moderately decreased 45 - 59 mL/min/1.73m2 Moderately to severely decreased 30 - 44 mL/min/1.73m2 Severely decreased 15 - 29 mL/min/1.73m2 Kidney Failure < 15 mL/min/1.73m2 *Relative to young adult level Estimated glomerular filtration rate is determined by the 2020 CKD-EPI equation recommended by the National Kidney Foundation (A Unifying Approach to GFR Estimation: Recommendations of the NKF-ASK Task Force on Reassessing the Inclusion of Race in Diagnosing Kidney Disease, JASN 2020). The CKD-EPI equation should not be used for patients with unstable renal function and has not been validated in children and those over 70. Current interpretive data was last reviewed 2021. Blood 02/26/2025 9:44 PM CDT 02/26/2025 9:55 PM CDT us Delilah Adams MD PhD LAB BLOOD ORDERABLES F inal Result [facility] Department [place] [address] * aPTT (02/26/2025 9:44 PM CDT) aPTT 33 28 - 38 sec Comment: Interpretive Data Heparin therapeutic range: 66.0 - 100.0 seconds. Range based on correlation with therapeutic heparin activity range of 0.3 - 0.7 Units/mL. Current interpretive data was last revised on 2023. Blood 02/26/2025 9:44 PM CDT 02/26/2025 9:54 PM CDT Narrative [facility] - 02/26/2025 10:36 PM CDT STAT PTT timing: - Draw 6 hours after heparin infusion initiation - Draw 6 hours after every dose change until 2 consecutive PTTs are therapeutic - Once 2 consecutive PTTs are therapeutic, obtain with daily labs until infusion is discontinued - - Restart every 6 hour lab draws and follow instructions accordingly if PTT is outside of therapeutic range Do not draw lab from IV line that is actively infusing heparin. Use the opposite arm. If arm with actively infusing heparin must be used, pause the infusion for at least 2 minutes, and draw specimen below the IV site. For patients with a central venous catheter (CVC), lab must be drawn peripherally (not from CVC). Delilah Adams MD PhD LAB BLOOD ORDERABLES F inal Result Performing Organization Address [facility] Co de Phone Number [facility] Department [place] [address] * (ABNORMAL) CBC without differential (02/26/2025 9:44 PM CDT) Pathologist [facility] WBC 10.56(H) 3.80 - 9.90 K/cumm Hgb 9.6(L) 13.0 - 17.5 g/dL [facility] Hct 31.6(L) 38.9 - 50.3 % [facility] Plt 260 150 - 400 K/cumm [facility] MPV 9.3 9.1 - 12.3 fL [facility] RBC 3.70(L) 4.30 - 5.80 M/cumm [facility] MCV 85.4 81.3 - 96.4 fL [facility] MCH 25.9(L) 27.1 - 33.3 pg [facility] MCHC 30.4(L) 32.3 - 35.7 g/dL [facility] RDW CV 15.0(H) 11.1 - 14.9 % [facility] RDW SD 46.2 35.7 - 48.1 fL [facility] NRBC abs 0.02(H) 0.00 - 0.01 K/cumm [facility] Blood 02/26/2025 9:44 PM CDT 02/26/2025 9:55 PM CDT Delilah Adams MD PhD LAB BLOOD ORDERABLES F inal Result Performing Organization Address [facility] Co de Phone Number [facility] Department [place] [address] * Phosphorus (02/26/2025 9:44 PM CDT) [facility] Phosphorus, pl 3.9 2.3 - 4.5 mg/dL Blood 02/26/2025 9:44 PM CDT 02/26/2025 9:55 PM CDT Delilah Adams MD PhD LAB BLOOD ORDERABLES F inal Result Performing Organization Address City/[facility]/ZIP Co de Phone Number [facility] Department [place] [address] * (ABNORMAL) Magnesium (02/26/2025 9:44 PM CDT) [facility] Magnesium 2.6(H) 1.4 - 2.5 mg/dL Blood 02/26/2025 9:44 PM CDT 02/26/2025 9:55 PM CDT Delilah Adams MD PhD LAB BLOOD ORDERABLES F inal Result Performing Organization Address [facility] Co de Phone Number [facility] [place] [address] * (ABNORMAL) Basic metabolic panel (02/26/2025 9:44 PM CDT) [facility] Sodium 139 135 - 145 mmol/L Potassium, pl 5.5(H) 3.3 - 4.9 mmol/L [facility] Chloride 108 97 - 110 mmol/L [facility] CO2 22 22 - 32 mmol/L [facility] Anion gap 9 2 - 15 mmol/L [facility] BUN 37(H) 6 - 25 mg/dL [facility] Creatinine 1.71(H) 0.80 - 1.30 mg/dL [facility] Glucose 171 70 - 199 mg/dL [facility] Comment: Interpretive Data Fasting glucose >/= 126 mg/dl is diagnostic for diabetes. Fasting is defined as no caloric intake for at least 8 hours. Fasting glucose between 100 mg/dl to 125 mg/dl is diagnostic of prediabetes. In a patient with classic symptoms of hyperglycemia or hyperglycemic crisis, a random glucose >/= 200 mg/dl is diagnostic for diabetes. In the absence of unequivocal hyperglycemia, results should be confirmed by repeat testing. The classification and Diagnosis of Diabetes Diabetes Care 2021; 46: S19-S40. Current interpretive data was last revised 2022. Calcium 8.7 8.5 - 10.3 mg/dL [facility] Blood 02/26/2025 9:44 PM CDT 02/26/2025 9:55 PM CDT Delilah Adams MD PhD LAB BLOOD ORDERABLES F inal Result [facility] Department [place] [address] * POCT glucose (02/26/2025 7:17 PM CDT) [facility] Signature Glucose, POC 194 70 - 199 mg/dL Blood 02/26/2025 7:17 PM CDT 02/26/2025 7:17 PM CDT Delilah Adams MD PhD LAB POCT ORDERABLES - DEVICE Final Result Performing Organization Address City/[facility] Co de Phone Number [facility] Department [place] [address] * XR Abdomen Ap 1 Vw (02/26/2025 6:34 PM CDT) Anatomical Region Laterality Modality Body, Abdomen N/A Computed Radiogr aphy 02/27/2025 9:16 AM CDT Impressions 02/27/2025 9:16 AM CDT Bowel gas pattern is normal without evidence of ileus or obstruction. Mild burden of formed stool throughout the colon. Temperature probe associated with urinary catheter and portions of the pacemaker-defibrillator are imaged. Electronically signed by: Hung Wang M.D. Narrative 02/27/2025 9:16 AM CDT EXAMINATION: Abdomen, one view. HISTORY: Abdominal pain. COMPARISON: None Procedure Note Hung Wang MD - 02/27/2025 EXAMINATION: Abdomen, one view. HISTORY: Abdominal pain. COMPARISON: None IMPRESSION: Bowel gas pattern is normal without evidence of ileus or obstruction. Mild burden of formed stool throughout the colon. Temperature probe associated with urinary catheter and portions of the pacemaker-defibrillator are imaged. Electronically signed by: Hung Wang M.D. Delilah Adams MD PhD IMG XR PROCEDURES Magda l Result * Transfuse RBC (02/26/2025 5:36 PM CDT) Blood Result [facility] Delilah Adams MD PhD BLOOD TRANSFUSION ORDE RABLES Final Result Performing Organization Address [facility] Co de Phone Number [facility] Department [place] [address] * POCT glucose (02/26/2025 5:04 PM CDT) Glucose, POC 141 70 - 199 mg/dL Blood 02/26/2025 5:04 PM CDT 02/26/2025 5:04 PM CDT Result [facility] Delilah Adams MD PhD LAB POCT ORDERABLES - DEVICE Final Result Performing Organization Address City/[facility]/ZIP Co de Phone Number [facility] Department [place] [address] * Prepare RBC: 1 Units (02/26/2025 1:34 PM CDT) Product code [id number] Unit Number [id number] [facility] Product Blood Type OPOS [facility] Dispense Status PRESUMED TRANSFUSED [facility] Blood 02/26/2025 1:34 PM CDT 02/26/2025 1:34 PM CDT Narrative [facility] - 02/27/2025 6:00 AM CDT Are special requirements needed? (All products are leukoreduced and CMV- safe)- >No Date required:-[id number] [facility] # of [id number] Reasons:-Cardiovascular disease, Hgb <8 g/dL} Result [facility] Rox Choi MANAGER EMBALMER FUNERAL DIRECTOR BLOOD BANK PRODUCT O RDERABLES Final Result Performing Organization Address [facility] Co de Phone Number [facility] Department [place] [address] * POCT glucose (02/26/2025 11:57 AM CDT) Glucose, POC 147 70 - 199 mg/dL Blood 02/26/2025 11:5 7 AM CDT 02/26/2025 11:57 AM CDT Result [facility] Delilah Adams MD PhD LAB POCT ORDERABLES - DEVICE Final Result Performing Organization Address [facility] de Phone Number [facility] Department [place] [address] * ANGIOGRAM (02/26/2025 11:22 AM CDT) Anatomical Region Laterality Modality X-Ray Angiograph y Narrative 02/26/2025 1:14 PM CDT Please see OpNote for result. Result [facility] Delilah Adams MD PhD SURGICAL CASE ORDERS F inal Result * AMPUTATION TOE (02/26/2025 11:22 AM CDT) Anatomical Region Laterality Modality X-Ray Angiograph y Narrative 02/26/2025 1:14 PM CDT Please see OpNote for result. Delilah Adams MD PhD CV CARDIAC CATH PROCED URES Final Result * FL Fluoroscopy < 1 Hour (02/26/2025 11:16 AM CDT) Narrative [facility] - 02/26/2025 11:18 AM CDT The images from this study are not interpreted by Radiology. Please refer to the physician's procedure / OR operative note. us Delilah Adams MD PhD IMG FLUOROSCOPY PROCED URES Final Result [facility] * Surgical pathology (02/26/2025 10:37 AM CDT) Tissue (Amputation non-tramatic) 02/26/2025 10:37 AM CDT Tissue specimen (specimen) (Amputation non-tramatic) 02/26/2025 10:40 AM CDT Narrative PATHOLOGY [facility] - 03/05/2025 3:23 PM CDT EPIC results best viewed via link to PDF [facility]ufina [facility] [place] [address] Note to Patients: This report may contain a detailed description of human tissue sent by a health care provider to the laboratory for pathologic evaluation. The content of this report is essential for diagnosis and may provide important critical findings. This information may be unfamiliar to patients to review without a medical professional present. It is advised that the patient review this report in the presence of a health care provider who can answer questions and explain the details. SURGICAL PATHOLOGY REPORT FINAL Patient Name: GREGORY KAT Gender: M : 1955 (Age: 70) Address: [address] [place] [address] Hospital #: [id number] Taken:02/26/2025 Received:02/26/2025 Reported: 03/05/2025 Patient Type: [facility] Inpatient Service: Vascular Location: [place] [address] Physician(s): Johnny Velasquez M.D. Diagnosis: A. Toe, left 3rd toe, amputation - Acute osteomyelitis, not present at margin - Ulcer B. Toe, left 4th toe, amputation - Acute osteomyelitis, not present at margin - Ulcer me/03/05/2025 13:03 By this signature, I attest that the above diagnosis is based upon my personal examination of the slides(and/or other material indicated in the diagnosis). Alec Ray M.D. Report Electronically Reviewed and Signed Out By Alec Ray M.D. 03/05/2025 15:23:14 Concetta Sauer M.D., PhD History: The patient is a 70-year-old man with gangrene associated with diabetes mellitus. Operative procedure: bilateral foot debridement. Specimen(s) Received: A: Left 3rd toe digit B: Left 4th toe digit Gross Description: Received in two formalin jars labeled with the patient's identifiers. A. Labeled left third toe digit, is a disarticulated distal toe (1.7 cm in length x 2.0 cm in diameter) with a perkins-patino thickened toenail and a articulated bone segment (1.0 x 1.0 x 0.5 cm) with a jagged bone margin. The skin is brown-patino and leathery with sloughing. The toe is longitudinally sectioned. The soft tissue cut surface is red-brown and firm. The bone cut surface is red-purple with congestion. The bone margin is grossly uninvolved. The bone segment margin is inked blue. Agricultural Research Technician sections are submitted in cassette A1 (toe) and A2 (entire bone segment) after decalcification. B. Labeled left fourth toe digit, is a distal toe amputation (1.1 cm in length x 2.1 cm in diameter) with a jagged bone margin and a thickened yellow-patino toenail. The skin is brown-patino and leathery with sloughing. The toe is longitudinally sectioned. The soft tissue cut surface is red-brown and firm. The bone cut surface is red-purple with congestion. The bone margin is inked blue. A sales representative metals longitudinal section is submitted in cassette B1 after decalcification. Jar 1. lala/02/27/2025 11:20 PA(s): Rena Dempsey MS, AVIS(ASCP)CM By this signature, I attest that the above diagnosis is based upon my personal examination of the slides(and/or other material). Addenda/Procedures The performance characteristics of some immunohistochemical stains, fluorescence in-situ hybridization tests and immunophenotyping by flow cytometry cited in this report (if any) were determined by the Surgical Pathology and Flow Cytometry Departments at [facility] as part of an ongoing senior data quality analyst program and in compliance with federally mandated regulations drawn from the Clinical Laboratory Improvement Act of 1988 (CLIA '88). Some of these tests rely on the use of analyte specific reagents and are subject to specific labeling requirements by the US Food and Drug Administration. Such diagnostic tests may only be performed in a facility that is certified by the Department of Health and Human Services as a high complexity laboratory under CLIA '88. The FDA has determined that such clearance or approval is not necessary. This test is used for clinical purposes. It should not be regarded as investigational or for research. Nevertheless, federal rules concerning the medical use of analyte specific reagents require that the following disclaimer be attached to the report: This test was developed and its performance characteristics determined by the Surgical Pathology and Flow Cytometry Departments of [facility]. It has not been cleared or approved by the U. S. Food and Drug Administration. IMAGES AND SCANNED DOCUMENTS, IF INCLUDED, ONLY VIEWABLE IN PDF VERSION OF REPORT us Delilah Adams MD PhD LAB PATHOLOGY ORDERABL ES Final Result [facility] 3rd [place], [place] [phone] * (ABNORMAL) POCT Activated clotting time, low range (02/26/2025 10:06 AM CDT) ACT 265(H) 123 - 168 sec POC Performer [id number] [facility] POC Device Number [id number] [facility] Blood 02/26/2025 10:0 6 AM CDT 02/26/2025 10:06 AM CDT Delilah Adams MD PhD LAB POCT ORDERABLES - DEVICE Final Result [facility] Department [place] [address] * POCT glucose (02/26/2025 10:03 AM CDT) [facility] Glucose, POC 161 70 - 199 mg/dL Blood 02/26/2025 10:0 3 AM CDT 02/26/2025 10:03 AM CDT Delilah Adams MD PhD LAB POCT ORDERABLES - DEVICE Final Result Performing Organization Address City/[facility]/ZIP Co de Phone Number [facility] Department [place] [address] * (ABNORMAL) POCT Activated clotting time, low range (02/26/2025 9:30 AM CDT) [facility] ACT 207(H) 123 - 168 sec POC Performer [id number] [facility] POC Device Number [id number] [facility] Blood 02/26/2025 9:30 AM CDT 02/26/2025 9:30 AM CDT us Delilah Adams MD PhD LAB POCT ORDERABLES - DEVICE Final Result Performing Organization Address City/[facility] Co de Phone Number [facility] [place] [address] * (ABNORMAL) eGFR (02/26/2025 7:11 AM CDT) [facility] eGFR 44(L) >=60 mL/min/1. 73 m2 Comment: Interpretive Data Reference Interval Normal >/= 90 mL/min/1.73m2 Mildly decreased* 60 - 89 mL/min/1.73m2 Mildly to moderately decreased 45 - 59 mL/min/1.73m2 Moderately to severely decreased 30 - 44 mL/min/1.73m2 Severely decreased 15 - 29 mL/min/1.73m2 Kidney Failure < 15 mL/min/1.73m2 *Relative to young adult level Estimated glomerular filtration rate is determined by the 2020 CKD-EPI equation recommended by the National Kidney Foundation (A Unifying Approach to GFR Estimation: Recommendations of the NKF-ASK Task Force on Reassessing the Inclusion of Race in Diagnosing Kidney Disease, BASILSN 2020). The CKD-EPI equation should not be used for patients with unstable renal function and has not been validated in children and those over 70. Current interpretive data was last reviewed 2021. Blood 02/26/2025 7:11 AM CDT 02/26/2025 7:35 AM CDT Delilah Adams MD PhD LAB BLOOD ORDERABLES F inal Result Performing Organization Address [facility] Co de Phone Number [facility] Department [place] [address] * (ABNORMAL) aPTT (02/26/2025 7:11 AM CDT) aPTT 47(H) 28 - 38 sec Comment: Interpretive Data Heparin therapeutic range: 66.0 - 100.0 seconds. Range based on correlation with therapeutic heparin activity range of 0.3 - 0.7 Units/mL. Current interpretive data was last revised on 2023. Blood 02/26/2025 7:11 AM CDT 02/26/2025 7:16 AM CDT Narrative [facility] - 02/26/2025 7:51 AM CDT STAT PTT timing: - Draw 6 hours after heparin infusion initiation - Draw 6 hours after every dose change until 2 consecutive PTTs are therapeutic - Once 2 consecutive PTTs are therapeutic, obtain with daily labs until infusion is discontinued - - Restart every 6 hour lab draws and follow instructions accordingly if PTT is outside of therapeutic range Do not draw lab from IV line that is actively infusing heparin. Use the opposite arm. If arm with actively infusing heparin must be used, pause the infusion for at least 2 minutes, and draw specimen below the IV site. For patients with a central venous catheter (CVC), lab must be drawn peripherally (not from CVC). Stephanie Montalvo MANAGER EMBALMER FUNERAL DIRECTOR LAB BLOOD ORDERABLES Final Re sult Performing Organization Address [facility]/ZIP Co de Phone Number [facility] Department [place] [address] * Protime-INR (02/26/2025 7:11 AM CDT) [facility] PT 12.1 9.7 - 13.0 sec INR 1.12 0.90 - 1.20 [facility] Comment: Interpretive data Oral anticoagulant therapeutic ranges: Venous thromboembolism prophylaxis or treatment: 2.0-3.0 CARDIOLOGY Standard range: 2.0-3.0 High-intensity range: 2.5-3.5 Refer to indication-specific guidelines for appropriate target ranges for prosthetic heart valve replacement. Current interpretive data was last revised on 2019. Blood 02/26/2025 7:11 AM CDT 02/26/2025 7:16 AM CDT Rox Choi NP LAB BLOOD ORDERABLES Final Result Performing Organization Address City/State/[facility] Co de Phone Number [facility] Department [place] [address] * (ABNORMAL) CBC without differential (02/26/2025 7:11 AM CDT) [facility] WBC 6.65 3.80 - 9.90 K/cumm Hgb 7.6(L) 13.0 - 17.5 g/dL [facility] Hct 25.7(L) 38.9 - 50.3 % [facility] Plt 269 150 - 400 K/cumm [facility] MPV 9.6 9.1 - 12.3 fL [facility] RBC 2.96(L) 4.30 - 5.80 M/cumm [facility] MCV 86.8 81.3 - 96.4 fL [facility] MCH 25.7(L) 27.1 - 33.3 pg [facility] MCHC 29.6(L) 32.3 - 35.7 g/dL [facility] RDW CV 15.4(H) 11.1 - 14.9 % [facility] RDW SD 48.3(H) 35.7 - 48.1 fL [facility] NRBC abs 0.00 0.00 - 0.01 K/cumm [facility] Blood 02/26/2025 7:11 AM CDT 02/26/2025 7:16 AM CDT Delilah Adams MD PhD LAB BLOOD ORDERABLES F inal Result Performing Organization Address City/[facility] Co de Phone Number [facility] [place] [address] * Type and screen (02/26/2025 7:11 AM CDT) ABO Rh O Positive Carly, indirect Negative [facility] Blood 02/26/2025 7:11 AM CDT 02/26/2025 7:19 AM CDT Narrative [facility] - 02/26/2025 8:06 AM CDT Has the patient had Daratumumab or Isatuximab in the past 6 months?->Unknown Rox Choi MANAGER EMBALMER FUNERAL DIRECTOR LAB BLOOD BANK TEST ORDERABLES Final Result Performing Organization Address [facility] [place] [address] * Phosphorus (02/26/2025 7:11 AM CDT) Phosphorus, pl 3.7 2.3 - 4.5 mg/dL Blood 02/26/2025 7:11 AM CDT 02/26/2025 7:16 AM CDT Delilah Adams MD PhD LAB BLOOD ORDERABLES F inal Result Performing Organization Address City/[facility] [place] [address] * Magnesium (02/26/2025 7:11 AM CDT) Magnesium 2.5 1.4 - 2.5 mg/dL Blood 02/26/2025 7:11 AM CDT 02/26/2025 7:16 AM CDT Delilah Adams MD PhD LAB BLOOD ORDERABLES F inal Result Performing Organization Address City/[facility]/ZIP Co de Phone Number [facility] Department [place] [address] * (ABNORMAL) Basic metabolic panel (02/26/2025 7:11 AM CDT) [facility] Sodium 144 135 - 145 mmol/L Potassium, pl 5.0(H) 3.3 - 4.9 mmol/L [facility] Chloride 113(H) 97 - 110 mmol/L [facility] CO2 21(L) 22 - 32 mmol/L [facility] Anion gap 10 2 - 15 mmol/L [facility] BUN 35(H) 6 - 25 mg/dL [facility] Creatinine 1.63(H) 0.80 - 1.30 mg/dL [facility] Glucose 93 70 - 199 mg/dL [facility] Comment: Interpretive Data Fasting glucose >/= 126 mg/dl is diagnostic for diabetes. Fasting is defined as no caloric intake for at least 8 hours. Fasting glucose between 100 mg/dl to 125 mg/dl is diagnostic of prediabetes. In a patient with classic symptoms of hyperglycemia or hyperglycemic crisis, a random glucose >/= 200 mg/dl is diagnostic for diabetes. In the absence of unequivocal hyperglycemia, results should be confirmed by repeat testing. The classification and Diagnosis of Diabetes Diabetes Care 2021; 46: S19-S40. Current interpretive data was last revised 2022. Calcium 8.6 8.5 - 10.3 mg/dL [facility] Blood 02/26/2025 7:11 AM CDT 02/26/2025 7:16 AM CDT Delilah Adams MD PhD LAB BLOOD ORDERABLES F inal Result Performing Organization Address City/[facility]/[place] [address] * POCT glucose (02/26/2025 6:18 AM CDT) Glucose, POC 97 70 - 199 mg/dL Blood 02/26/2025 6:18 AM CDT 02/26/2025 6:18 AM CDT Delilah Adams MD PhD LAB POCT ORDERABLES - DEVICE Final Result Performing Organization Address City/[facility]/[place] [address] * POCT glucose (02/25/2025 7:20 PM CDT) Glucose, POC 148 70 - 199 mg/dL Blood 02/25/2025 7:20 PM CDT 02/25/2025 7:20 PM CDT Delilah Adams MD PhD LAB POCT ORDERABLES - DEVICE Final Result Performing Organization Address City/[facility]/[place] [address] * POCT glucose (02/25/2025 5:29 PM CDT) Glucose, POC 103 70 - 199 mg/dL Blood 02/25/2025 5:29 PM CDT 02/25/2025 5:29 PM CDT Delilah Adams MD PhD LAB POCT ORDERABLES - [place] [address] * POCT glucose (02/25/2025 11:47 AM CDT) Glucose, POC 154 70 - 199 mg/dL Blood 02/25/2025 11:4 7 AM CDT 02/25/2025 11:47 AM CDT Delilah Adams MD PhD LAB POCT ORDERABLES - DEVICE Final Result [facility] Department [place] [address] * POCT glucose (02/25/2025 7:26 AM CDT) Glucose, POC 110 70 - 199 mg/dL Blood 02/25/2025 7:26 AM CDT 02/25/2025 7:26 AM CDT Delilah Adams MD PhD LAB POCT ORDERABLES - DEVICE Final Result Performing Organization Address City/[facility] Co de Phone Number [facility] Department [place] [address] * (ABNORMAL) eGFR (02/25/2025 1:42 AM CDT) [facility] eGFR 37(L) >=60 mL/min/1. 73 m2 Comment: Interpretive Data Reference Interval Normal >/= 90 mL/min/1.73m2 Mildly decreased* 60 - 89 mL/min/1.73m2 Mildly to moderately decreased 45 - 59 mL/min/1.73m2 Moderately to severely decreased 30 - 44 mL/min/1.73m2 Severely decreased 15 - 29 mL/min/1.73m2 Kidney Failure < 15 mL/min/1.73m2 *Relative to young adult level Estimated glomerular filtration rate is determined by the 2020 CKD-EPI equation recommended by the National Kidney Foundation (A Unifying Approach to GFR Estimation: Recommendations of the NKF-ASK Task Force on Reassessing the Inclusion of Race in Diagnosing Kidney Disease, JASN 2020). The CKD-EPI equation should not be used for patients with unstable renal function and has not been validated in children and those over 70. Current interpretive data was last reviewed 2021. Blood 02/25/2025 1:42 AM CDT 02/25/2025 2:31 AM CDT Delilah Adams MD PhD LAB BLOOD ORDERABLES F inal Result Performing Organization Address [facility] Co de Phone Number [facility] Department of [employer] [place] [address] * (ABNORMAL) aPTT (02/25/2025 1:42 AM CDT) aPTT 82(H) 28 - 38 sec Comment: Interpretive Data Heparin therapeutic range: 66.0 - 100.0 seconds. Range based on correlation with therapeutic heparin activity range of 0.3 - 0.7 Units/mL. Current interpretive data was last revised on 2023. Blood 02/25/2025 1:42 AM CDT 02/25/2025 2:35 AM CDT Narrative [facility] - 02/25/2025 3:01 AM CDT STAT PTT timing: - Draw 6 hours after heparin infusion initiation - Draw 6 hours after every dose change until 2 consecutive PTTs are therapeutic - Once 2 consecutive PTTs are therapeutic, obtain with daily labs until infusion is discontinued - - Restart every 6 hour lab draws and follow instructions accordingly if PTT is outside of therapeutic range Do not draw lab from IV line that is actively infusing heparin. Use the opposite arm. If arm with actively infusing heparin must be used, pause the infusion for at least 2 minutes, and draw specimen below the IV site. For patients with a central venous catheter (CVC), lab must be drawn peripherally (not from CVC). Stephanie Montalvo MANAGER EMBALMER FUNERAL DIRECTOR LAB BLOOD ORDERABLES Final Re sult Performing Organization Address [facility] Co de Phone Number [facility] Department [place] [address] * (ABNORMAL) CBC without differential (02/25/2025 1:42 AM CDT) [facility] WBC 6.68 3.80 - 9.90 K/cumm Hgb 8.0(L) 13.0 - 17.5 g/dL [facility] Hct 26.4(L) 38.9 - 50.3 % [facility] Plt 272 150 - 400 K/cumm [facility] MPV 9.6 9.1 - 12.3 fL [facility] RBC 3.11(L) 4.30 - 5.80 M/cumm [facility] MCV 84.9 81.3 - 96.4 fL [facility] MCH 25.7(L) 27.1 - 33.3 pg [facility] MCHC 30.3(L) 32.3 - 35.7 g/dL [facility] RDW CV 15.3(H) 11.1 - 14.9 % [facility] RDW SD 46.7 35.7 - 48.1 fL [facility] NRBC abs 0.00 0.00 - 0.01 K/cumm [facility] Blood 02/25/2025 1:42 AM CDT 02/25/2025 2:31 AM CDT Delilah Adams MD PhD LAB BLOOD ORDERABLES F inal Result Performing Organization Address City/[facility] Co de Phone Number [facility] [employer] [place] [address] * Phosphorus (02/25/2025 1:42 AM CDT) [facility] Phosphorus, pl 3.6 2.3 - 4.5 mg/dL Blood 02/25/2025 1:42 AM CDT 02/25/2025 2:31 AM CDT Delilah Adams MD PhD LAB BLOOD ORDERABLES F inal Result Performing Organization Address City/[facility] Co de Phone Number [facility] Department of [employer] [place] [address] * Magnesium (02/25/2025 1:42 AM CDT) Magnesium 2.5 1.4 - 2.5 mg/dL Blood 02/25/2025 1:42 AM CDT 02/25/2025 2:31 AM CDT Delilah Aadms MD PhD LAB BLOOD ORDERABLES F inal Result [facility] Department [place] [address] * (ABNORMAL) Basic metabolic panel (02/25/2025 1:42 AM CDT) Pathologist [facility] Sodium 140 135 - 145 mmol/L Potassium, pl 5.0(H) 3.3 - 4.9 mmol/L [facility] Chloride 112(H) 97 - 110 mmol/L [facility] CO2 22 22 - 32 mmol/L [facility] Anion gap 6 2 - 15 mmol/L [facility] BUN 43(H) 6 - 25 mg/dL [facility] Creatinine 1.88(H) 0.80 - 1.30 mg/dL [facility] Glucose 116 70 - 199 mg/dL [facility] Comment: Interpretive Data Fasting glucose >/= 126 mg/dl is diagnostic for diabetes. Fasting is defined as no caloric intake for at least 8 hours. Fasting glucose between 100 mg/dl to 125 mg/dl is diagnostic of prediabetes. In a patient with classic symptoms of hyperglycemia or hyperglycemic crisis, a random glucose >/= 200 mg/dl is diagnostic for diabetes. In the absence of unequivocal hyperglycemia, results should be confirmed by repeat testing. The classification and Diagnosis of Diabetes Diabetes Care 2021; 46: S19-S40. Current interpretive data was last revised 2022. Calcium 8.8 8.5 - 10.3 mg/dL [facility] Blood 02/25/2025 1:42 AM CDT 02/25/2025 2:31 AM CDT Delilah Adams MD PhD LAB BLOOD ORDERABLES F inal Result Performing Organization Address City/[facility]/ZIP Co de Phone Number [facility] Department [place] [address] * POCT glucose (02/24/2025 7:13 PM CDT) Glucose, POC 124 70 - 199 mg/dL Blood 02/24/2025 7:13 PM CDT 02/24/2025 7:13 PM CDT Delilah Adams MD PhD LAB POCT ORDERABLES - DEVICE Final Result Performing Organization Address [facility] Co de Phone Number [facility] Department [place] [address] * (ABNORMAL) aPTT (02/24/2025 6:41 PM CDT) aPTT 103(H) 28 - 38 sec Comment: Interpretive Data Heparin therapeutic range: 66.0 - 100.0 seconds. Range based on correlation with therapeutic heparin activity range of 0.3 - 0.7 Units/mL. Current interpretive data was last revised on 2023. Blood 02/24/2025 6:41 PM CDT 02/24/2025 7:26 PM CDT Narrative [facility] - 02/24/2025 7:47 PM CDT STAT PTT timing: - Draw 6 hours after heparin infusion initiation - Draw 6 hours after every dose change until 2 consecutive PTTs are therapeutic - Once 2 consecutive PTTs are therapeutic, obtain with daily labs until infusion is discontinued - - Restart every 6 hour lab draws and follow instructions accordingly if PTT is outside of therapeutic range Do not draw lab from IV line that is actively infusing heparin. Use the opposite arm. If arm with actively infusing heparin must be used, pause the infusion for at least 2 minutes, and draw specimen below the IV site. For patients with a central venous catheter (CVC), lab must be drawn peripherally (not from CVC). us Stephanie Montalvo MANAGER [employer] DIRECT[employer] LAB BLOOD ORDERABLES Final Re sult [facility] Department [place] [address] * POCT glucose (02/24/2025 4:41 PM CDT) Glucose, POC 114 70 - 199 mg/dL Blood 02/24/2025 4:41 PM CDT 02/24/2025 4:41 PM CDT Delilah Adams MD PhD LAB POCT ORDERABLES - DEVICE Final Result Performing Organization Address [facility] Co de Phone Number [facility] Department [place] [address] * (ABNORMAL) aPTT (02/24/2025 12:23 PM CDT) aPTT 79(H) 28 - 38 sec Comment: Interpretive Data Heparin therapeutic range: 66.0 - 100.0 seconds. Range based on correlation with therapeutic heparin activity range of 0.3 - 0.7 Units/mL. Current interpretive data was last revised on 2023. Blood 02/24/2025 12:2 3 PM CDT 02/24/2025 12:43 PM CDT N[facility]ative [facility] 02/24/2025 1:08 PM CDT STAT PTT timing: - Draw 6 hours after heparin infusion initiation - Draw 6 hours after every dose change until 2 consecutive PTTs are therapeutic - Once 2 consecutive PTTs are therapeutic, obtain with daily labs until infusion is discontinued - - Restart every 6 hour lab draws and follow instructions accordingly if PTT is outside of therapeutic range Do not draw lab from IV line that is actively infusing heparin. Use the opposite arm. If arm with actively infusing heparin must be used, pause the infusion for at least 2 minutes, and draw specimen below the IV site. For patients with a central venous catheter (CVC), lab must be drawn peripherally (not from CVC). Stephanie Montalvo MANAGER [employer]ER[employer] DIRECTOR LAB BLOOD ORDERABLES Final Re sult [facility] [employer] [place] [address] * POCT glucose (02/24/2025 11:58 AM CDT) Glucose, POC 117 70 - 199 mg/dL Blood 02/24/2025 11:5 8 AM CDT 02/24/2025 11:58 AM CDT Delilah Adams MD PhD LAB POCT ORDERABLES - DEVICE Final Result Performing Organization Address [facility] Co de Phone Number [facility] [employer] [place] [address] * POCT glucose (02/24/2025 8:19 AM CDT) Glucose, POC 107 70 - 199 mg/dL Blood 02/24/2025 8:19 AM CDT 02/24/2025 8:19 AM CDT Delilah Adams MD PhD LAB POCT ORDERABLES - DEVICE Final Result Performing Organization Address [facility]/ZIP Co de Phone Number [facility] Department of [employer] [place] [address] * POCT glucose (02/24/2025 7:57 AM CDT) Glucose, POC 114 70 - 199 mg/dL Blood 02/24/2025 7:57 AM CDT 02/24/2025 7:57 AM CDT Delilah Adams MD PhD LAB POCT ORDERABLES - DEVICE Final Result Performing Organization Address City/[facility]/ZIP Co de Phone Number [facility] Department [place] [address] * (ABNORMAL) Potassium, whole blood (02/24/2025 3:52 AM CDT) Potassium, bld 5.0(H) 3.3 - 4.9 mmol/L Blood 02/24/2025 3:52 AM CDT 02/24/2025 4:05 AM CDT Delilah Adams MD PhD LAB BLOOD ORDERABLES F inal Result Performing Organization Address City/[facility]/ZIP Co de Phone Number [facility] Department [place] [address] * (ABNORMAL) eGFR (02/24/2025 2:09 AM CDT) eGFR 38(L) >=60 mL/min/1. 73 m2 Comment: Interpretive Data Reference Interval Normal >/= 90 mL/min/1.73m2 Mildly decreased* 60 - 89 mL/min/1.73m2 Mildly to moderately decreased 45 - 59 mL/min/1.73m2 Moderately to severely decreased 30 - 44 mL/min/1.73m2 Severely decreased 15 - 29 mL/min/1.73m2 Kidney Failure < 15 mL/min/1.73m2 *Relative to young adult level Estimated glomerular filtration rate is determined by the 2020 CKD-EPI equation recommended by the National Kidney Foundation (A Unifying Approach to GFR Estimation: Recommendations of the NKF-ASK Task Force on Reassessing the Inclusion of Race in Diagnosing Kidney Disease, JASN 2020). The CKD-EPI equation should not be used for patients with unstable renal function and has not been validated in children and those over 70. Current interpretive data was last reviewed 2021. Blood 02/24/2025 2:09 AM CDT 02/24/2025 2:42 AM CDT Delilah Adams MD PhD LAB BLOOD ORDERABLES F inal Result [facility] Department [place] [address] * (ABNORMAL) aPTT (02/24/2025 2:09 AM CDT) [facility] aPTT 103(H) 28 - 38 sec Comment: Interpretive Data Heparin therapeutic range: 66.0 - 100.0 seconds. Range based on correlation with therapeutic heparin activity range of 0.3 - 0.7 Units/mL. Current interpretive data was last revised on 2023. Blood 02/24/2025 2:09 AM CDT 02/24/2025 2:32 AM CDT Narrative [facility] - 02/24/2025 2:55 AM CDT STAT PTT timing: - Draw 6 hours after heparin infusion initiation - Draw 6 hours after every dose change until 2 consecutive PTTs are therapeutic - Once 2 consecutive PTTs are therapeutic, obtain with daily labs until infusion is discontinued - - Restart every 6 hour lab draws and follow instructions accordingly if PTT is outside of therapeutic range Do not draw lab from IV line that is actively infusing heparin. Use the opposite arm. If arm with actively infusing heparin must be used, pause the infusion for at least 2 minutes, and draw specimen below the IV site. For patients with a central venous catheter (CVC), lab must be drawn peripherally (not from CVC). Stephanie Montalvo MANAGER [employer]ER[employer] DIRECTOR LAB BLOOD ORDERABLES Final Re sult [facility] Department [place] [address] * (ABNORMAL) CBC without differential (02/24/2025 2:09 AM CDT) [facility] WBC 7.03 3.80 - 9.90 K/cumm Hgb 7.7(L) 13.0 - 17.5 g/dL [facility] Hct 25.1(L) 38.9 - 50.3 % [facility] Plt 220 150 - 400 K/cumm [facility] MPV 9.8 9.1 - 12.3 fL [facility] RBC 2.92(L) 4.30 - 5.80 M/cumm [facility] MCV 86.0 81.3 - 96.4 fL [facility] MCH 26.4(L) 27.1 - 33.3 pg [facility] MCHC 30.7(L) 32.3 - 35.7 g/dL [facility] RDW CV 15.1(H) 11.1 - 14.9 % [facility] RDW SD 46.2 35.7 - 48.1 fL [facility] NRBC abs 0.00 0.00 - 0.01 K/cumm [facility] Blood 02/24/2025 2:09 AM CDT 02/24/2025 2:42 AM CDT Result [facility] Delilah Aadms MD PhD LAB BLOOD ORDERABLES F inal Result Performing Organization Address City/[facility]/ZIP Co de Phone Number [facility] Department [place] [address] * Phosphorus (02/24/2025 2:09 AM CDT) Phosphorus, pl 3.5 2.3 - 4.5 mg/dL Blood 02/24/2025 2:09 AM CDT 02/24/2025 2:42 AM CDT Result [facility] Delilah Adams MD PhD LAB BLOOD ORDERABLES F inal Result [facility] Department [place] [address] * Magnesium (02/24/2025 2:09 AM CDT) Magnesium 2.5 1.4 - 2.5 mg/dL Blood 02/24/2025 2:09 AM CDT 02/24/2025 2:42 AM CDT Result [facility] Delilah Adams MD PhD LAB BLOOD ORDERABLES F inal Result [facility] Department [place] [address] * (ABNORMAL) Basic metabolic panel (02/24/2025 2:09 AM CDT) Pathologist [facility] Sodium 140 135 - 145 mmol/L Potassium, pl 5.3(H) 3.3 - 4.9 mmol/L [facility] Chloride 112(H) 97 - 110 mmol/L [facility] CO2 20(L) 22 - 32 mmol/L [facility] Anion gap 8 2 - 15 mmol/L [facility] BUN 40(H) 6 - 25 mg/dL [facility] Creatinine 1.86(H) 0.80 - 1.30 mg/dL [facility] Glucose 92 70 - 199 mg/dL [facility] Comment: Interpretive Data Fasting glucose >/= 126 mg/dl is diagnostic for diabetes. Fasting is defined as no caloric intake for at least 8 hours. Fasting glucose between 100 mg/dl to 125 mg/dl is diagnostic of prediabetes. In a patient with classic symptoms of hyperglycemia or hyperglycemic crisis, a random glucose >/= 200 mg/dl is diagnostic for diabetes. In the absence of unequivocal hyperglycemia, results should be confirmed by repeat testing. The classification and Diagnosis of Diabetes Diabetes Care 202; 46: S19-S40. Current interpretive data was last revised 2022. Calcium 8.4(L) 8.5 - 10.3 mg/dL [facility] Blood 02/24/2025 2:09 AM CDT 02/24/2025 2:42 AM CDT us Delilah Adams MD PhD LAB BLOOD ORDERABLES F inal Result Performing Organization Address City/[facility]/ZIP Co de Phone Number [facility] Department [place] [address] * POCT glucose (02/23/2025 7:33 PM CDT) Glucose, POC 155 70 - 199 mg/dL Blood 02/23/2025 7:33 PM CDT 02/23/2025 7:33 PM CDT Delilah Adams MD PhD LAB POCT ORDERABLES - DEVICE Final Result Performing Organization Address [facility] Co de Phone Number [facility] [place] [address] * POCT glucose (02/23/2025 5:08 PM CDT) Glucose, POC 138 70 - 199 mg/dL Blood 02/23/2025 5:08 PM CDT 02/23/2025 5:08 PM CDT Delilah Adams MD PhD LAB POCT ORDERABLES - DEVICE Final Result Performing Organization Address [facility] Co de Phone Number [facility] Department [place] [address] * POCT glucose (02/23/2025 11:57 AM CDT) Glucose, POC 138 70 - 199 mg/dL Blood 02/23/2025 11:5 7 AM CDT 02/23/2025 11:57 AM CDT Delilah Adams MD PhD LAB POCT ORDERABLES - DEVICE Final Result Performing Organization Address [facility] Co de Phone Number [facility] [employer] [place] [address] * POCT glucose (02/23/2025 7:55 AM CDT) Glucose, POC 119 70 - 199 mg/dL Blood 02/23/2025 7:55 AM CDT 02/23/2025 7:55 AM CDT Delilah Adams MD PhD LAB POCT ORDERABLES - DEVICE Final Result Performing Organization Address [facility] Co de Phone Number [facility] Department [place] [address] * (ABNORMAL) eGFR (02/23/2025 3:27 AM CDT) eGFR 36(L) >=60 mL/min/1. 73 m2 Comment: Interpretive Data Reference Interval Normal >/= 90 mL/min/1.73m2 Mildly decreased* 60 - 89 mL/min/1.73m2 Mildly to moderately decreased 45 - 59 mL/min/1.73m2 Moderately to severely decreased 30 - 44 mL/min/1.73m2 Severely decreased 15 - 29 mL/min/1.73m2 Kidney Failure < 15 mL/min/1.73m2 *Relative to young adult level Estimated glomerular filtration rate is determined by the 2020 CKD-EPI equation recommended by the National Kidney Foundation (A Unifying Approach to GFR Estimation: Recommendations of the NKF-ASK Task Force on Reassessing the Inclusion of Race in Diagnosing Kidney Disease, JASN 2020). The CKD-EPI equation should not be used for patients with unstable renal function and has not been validated in children and those over 70. Current interpretive data was last reviewed 2021. Blood 02/23/2025 3:27 AM CDT 02/23/2025 4:01 AM CDT Delilah Adams MD PhD LAB BLOOD ORDERABLES F inal Result Performing Organization Address [facility] Co de Phone Number [facility] [place] [address] * (ABNORMAL) aPTT (02/23/2025 3:27 AM CDT) aPTT 94(H) 28 - 38 sec Comment: Interpretive Data Heparin therapeutic range: 66.0 - 100.0 seconds. Range based on correlation with therapeutic heparin activity range of 0.3 - 0.7 Units/mL. Current interpretive data was last revised on 2023. Blood 02/23/2025 3:27 AM CDT 02/23/2025 3:54 AM CDT Narrative [facility] - 02/23/2025 4:03 AM CDT STAT PTT timing: - Draw 6 hours after heparin infusion initiation - Draw 6 hours after every dose change until 2 consecutive PTTs are therapeutic - Once 2 consecutive PTTs are therapeutic, obtain with daily labs until infusion is discontinued - - Restart every 6 hour lab draws and follow instructions accordingly if PTT is outside of therapeutic range Do not draw lab from IV line that is actively infusing heparin. Use the opposite arm. If arm with actively infusing heparin must be used, pause the infusion for at least 2 minutes, and draw specimen below the IV site. For patients with a central venous catheter (CVC), lab must be drawn peripherally (not from CVC). Stephanie Montalvo NP LAB BLOOD ORDERABLES Final Re sult [facility] Department [place] [address] * (ABNORMAL) CBC without differential (02/23/2025 3:27 AM CDT) WBC 6.77 3.80 - 9.90 K/cumm Hgb 7.8(L) 13.0 - 17.5 g/dL [facility] Hct 25.6(L) 38.9 - 50.3 % [facility] Plt 226 150 - 400 K/cumm [facility] MPV 9.4 9.1 - 12.3 fL [facility] RBC 3.02(L) 4.30 - 5.80 M/cumm [facility] MCV 84.8 81.3 - 96.4 fL [facility] MCH 25.8(L) 27.1 - 33.3 pg [facility] MCHC 30.5(L) 32.3 - 35.7 g/dL [facility] RDW CV 14.8 11.1 - 14.9 % [facility] RDW SD 45.7 35.7 - 48.1 fL [facility] NRBC abs 0.02(H) 0.00 - 0.01 K/cumm [facility] Blood 02/23/2025 3:27 AM CDT 02/23/2025 4:01 AM CDT Delilah Adams MD PhD LAB BLOOD ORDERABLES F inal Result Performing Organization Address City/[facility] Co de Phone Number [facility] of [employer] [place] [address] * Phosphorus (02/23/2025 3:27 AM CDT) Pathologist [facility] Phosphorus, pl 3.1 2.3 - 4.5 mg/dL Blood 02/23/2025 3:27 AM CDT 02/23/2025 4:01 AM CDT Delilah Adams MD PhD LAB BLOOD ORDERABLES F inal Result Performing Organization Address City/[facility] Co de Phone Number [facility] Department of [employer] [place] [address] * Magnesium (02/23/2025 3:27 AM CDT) [facility] Magnesium 2.4 1.4 - 2.5 mg/dL Blood 02/23/2025 3:27 AM CDT 02/23/2025 4:01 AM CDT Result [facility] Delilah Adams MD PhD LAB BLOOD ORDERABLES F inal Result Performing Organization Address City/[facility] [place] [address] * (ABNORMAL) Basic metabolic panel (02/23/2025 3:27 AM CDT) Pathologist [facility] Sodium 139 135 - 145 mmol/L Potassium, pl 4.7 3.3 - 4.9 mmol/L [facility] Chloride 110 97 - 110 mmol/L [facility] CO2 20(L) 22 - 32 mmol/L [facility] Anion gap 9 2 - 15 mmol/L [facility] BUN 40(H) 6 - 25 mg/dL [facility] Creatinine 1.94(H) 0.80 - 1.30 mg/dL [facility] Glucose 113 70 - 199 mg/dL [facility] Comment: Interpretive Data Fasting glucose >/= 126 mg/dl is diagnostic for diabetes. Fasting is defined as no caloric intake for at least 8 hours. Fasting glucose between 100 mg/dl to 125 mg/dl is diagnostic of prediabetes. In a patient with classic symptoms of hyperglycemia or hyperglycemic crisis, a random glucose >/= 200 mg/dl is diagnostic for diabetes. In the absence of unequivocal hyperglycemia, results should be confirmed by repeat testing. The classification and Diagnosis of Diabetes Diabetes Care 2021; 46: S19-S40. Current interpretive data was last revised 2022. Calcium 8.4(L) 8.5 - 10.3 mg/dL [facility] Blood 02/23/2025 3:27 AM CDT 02/23/2025 4:01 AM CDT us Delilah Adams MD PhD LAB BLOOD ORDERABLES F inal Result Performing Organization Address City/[facility]/ZIP Co de Phone Number [facility] Department of [employer] [place] [address] * POCT glucose (02/22/2025 11:50 PM CDT) [facility] Glucose, POC 154 70 - 199 mg/dL Blood 02/22/2025 11:5 0 PM CDT 02/22/2025 11:50 PM CDT Delilah Adams MD PhD LAB POCT ORDERABLES - DEVICE Final Result Performing Organization Address City/[facility]/ZIP Co de Phone Number [facility] Department [place] [address] * POCT glucose (02/22/2025 7:38 PM CDT) [facility] Glucose, POC 197 70 - 199 mg/dL Blood 02/22/2025 7:38 PM CDT 02/22/2025 7:38 PM CDT Delilah Adams MD PhD LAB POCT ORDERABLES - DEVICE Final Result Performing Organization Address City/[facility]/ZIP Co de Phone Number [facility] Department [place] [address] * POCT glucose (02/22/2025 4:39 PM CDT) [facility] Glucose, POC 166 70 - 199 mg/dL Blood 02/22/2025 4:39 PM CDT 02/22/2025 4:39 PM CDT Delilah Adams MD PhD LAB POCT ORDERABLES - DEVICE Final Result Performing Organization Address City/[facility] Co de Phone Number [facility] Department [place] [address] * (ABNORMAL) CBC without differential (02/22/2025 2:27 PM CDT) [facility] WBC 7.85 3.80 - 9.90 K/cumm Hgb 8.0(L) 13.0 - 17.5 g/dL [facility] Hct 26.3(L) 38.9 - 50.3 % [facility] Plt 211 150 - 400 K/cumm [facility] MPV 9.5 9.1 - 12.3 fL [facility] RBC 3.02(L) 4.30 - 5.80 M/cumm [facility] MCV 87.1 81.3 - 96.4 fL [facility] MCH 26.5(L) 27.1 - 33.3 pg [facility] MCHC 30.4(L) 32.3 - 35.7 g/dL [facility] RDW CV 15.0(H) 11.1 - 14.9 % [facility] RDW SD 47.3 35.7 - 48.1 fL [facility] NRBC abs 0.02(H) 0.00 - 0.01 K/cumm [facility] Blood 02/22/2025 2:27 PM CDT 02/22/2025 2:46 PM CDT Delilah Adams MD PhD LAB BLOOD ORDERABLES F inal Result Performing Organization Address [facility] Co de Phone Number [facility] Department [place] [address] * Transfuse RBC (02/22/2025 12:06 PM CDT) Blood Delilah Adams MD PhD BLOOD TRANSFUSION ORDE RABLES Final Result Performing Organization Address [facility] Co de Phone Number [facility] Department [place] [address] * POCT glucose (02/22/2025 11:01 AM CDT) Glucose, POC 123 70 - 199 mg/dL Blood 02/22/2025 11:0 1 AM CDT 02/22/2025 11:01 AM CDT Delilah Adams MD PhD LAB POCT ORDERABLES - DEVICE Final Result Performing Organization Address [facility] Co de Phone Number [facility] Department [place] [address] * Type and screen (02/22/2025 7:44 AM CDT) Carly, indirect Negative ABO Rh O Positive [facility] Blood 02/22/2025 7:44 AM CDT 02/22/2025 8:00 AM CDT Narrative [facility] - 02/22/2025 9:13 AM CDT Has the patient had Daratumumab or Isatuximab in the past 6 months?->Unknown Delilah Adams MD PhD LAB BLOOD BANK TEST OR DERABLES Final Result Performing Organization Address [facility] Co de Phone Number [facility] Department [place] [address] * POCT glucose (02/22/2025 7:17 AM CDT) [facility] Glucose, POC 111 70 - 199 mg/dL Blood 02/22/2025 7:17 AM CDT 02/22/2025 7:17 AM CDT Delilah Adams MD PhD LAB POCT ORDERABLES - DEVICE Final Result Performing Organization Address [facility] [place] [address] * Prepare RBC: 1 Units (02/22/2025 6:55 AM CDT) [facility] Product code [id number] Unit Number [id number] [facility] Product Blood Type OPOS [facility] Dispense Status PRESUMED TRANSFUSED [facility] Blood 02/22/2025 6:55 AM CDT 02/22/2025 6:55 AM CDT Narrative [facility] - 02/23/2025 12:57 AM CDT Are special requirements needed? (All products are leukoreduced and CMV- safe)- >No Date required:-[id number] LRRBC # of [id number] Reasons:-Hgb <7 g/dL} Delilah Adams MD PhD BLOOD BANK PRODUCT ORD ERABLES Final Result Performing Organization Address [facility] Co de Phone Number [facility] [employer] [place] [address] * (ABNORMAL) eGFR (02/21/2025 9:00 PM CDT) eGFR 30(L) >=60 mL/min/1. 73 m2 Comment: Interpretive Data Reference Interval Normal >/= 90 mL/min/1.73m2 Mildly decreased* 60 - 89 mL/min/1.73m2 Mildly to moderately decreased 45 - 59 mL/min/1.73m2 Moderately to severely decreased 30 - 44 mL/min/1.73m2 Severely decreased 15 - 29 mL/min/1.73m2 Kidney Failure < 15 mL/min/1.73m2 *Relative to young adult level Estimated glomerular filtration rate is determined by the 2020 CKD-EPI equation recommended by the National Kidney Foundation (A Unifying Approach to GFR Estimation: Recommendations of the NKF-ASK Task Force on Reassessing the Inclusion of Race in Diagnosing Kidney Disease, JASN 2020). The CKD-EPI equation should not be used for patients with unstable renal function and has not been validated in children and those over 70. Current interpretive data was last reviewed 2021. Blood 02/21/2025 9:00 PM CDT 02/21/2025 9:36 PM CDT us Delilah Adams MD PhD LAB BLOOD ORDERABLES F inal Result [facility] Department [place] [address] * (ABNORMAL) aPTT (02/21/2025 9:00 PM CDT) aPTT 86(H) 28 - 38 sec Comment: Interpretive Data Heparin therapeutic range: 66.0 - 100.0 seconds. Range based on correlation with therapeutic heparin activity range of 0.3 - 0.7 Units/mL. Current interpretive data was last revised on 2023. Blood 02/21/2025 9:00 PM CDT 02/21/2025 9:41 PM CDT Narrative MEERA DAMON - 02/21/2025 9:51 PM CDT STAT PTT timing: - Draw 6 hours after heparin infusion initiation - Draw 6 hours after every dose change until 2 consecutive PTTs are therapeutic - Once 2 consecutive PTTs are therapeutic, obtain with daily labs until infusion is discontinued - - Restart every 6 hour lab draws and follow instructions accordingly if PTT is outside of therapeutic range Do not draw lab from IV line that is actively infusing heparin. Use the opposite arm. If arm with actively infusing heparin must be used, pause the infusion for at least 2 minutes, and draw specimen below the IV site. For patients with a central venous catheter (CVC), lab must be drawn peripherally (not from CVC). Stephanie Montalvo NP LAB BLOOD ORDERABLES Final Re sult [facility] Department [place] [address] * (ABNORMAL) CBC without differential (02/21/2025 9:00 PM CDT) Pathologist [facility] WBC 9.12 3.80 - 9.90 K/cumm Hgb 6.8(L) 13.0 - 17.5 g/dL [facility] Hct 22.9(L) 38.9 - 50.3 % [facility] Plt 230 150 - 400 K/cumm [facility] MPV 10.2 9.1 - 12.3 fL [facility] RBC 2.65(L) 4.30 - 5.80 M/cumm [facility] MCV 86.4 81.3 - 96.4 fL [facility] MCH 25.7(L) 27.1 - 33.3 pg [facility] MCHC 29.7(L) 32.3 - 35.7 g/dL [facility] RDW CV 15.0(H) 11.1 - 14.9 % [facility] RDW SD 46.5 35.7 - 48.1 fL [facility] NRBC abs 0.00 0.00 - 0.01 K/cumm [facility] Blood 02/21/2025 9:00 PM CDT 02/21/2025 9:36 PM CDT Delilah Adams MD PhD LAB BLOOD ORDERABLES F inal Result Performing Organization Address City/[facility]/ZIP Co de Phone Number [facility] Department [place] [address] * Phosphorus (02/21/2025 9:00 PM CDT) Pathologist [facility] Phosphorus, pl 2.6 2.3 - 4.5 mg/dL Blood 02/21/2025 9:00 PM CDT 02/21/2025 9:36 PM CDT us Delilah Adams MD PhD LAB BLOOD ORDERABLES F inal Result Performing Organization Address [facility] Co de Phone Number [facility] Department [place] [address] * (ABNORMAL) Basic metabolic panel (02/21/2025 9:00 PM CDT) [facility] Sodium 137 135 - 145 mmol/L Potassium, pl 4.4 3.3 - 4.9 mmol/L [facility] Chloride 109 97 - 110 mmol/L [facility] CO2 21(L) 22 - 32 mmol/L [facility] Anion gap 7 2 - 15 mmol/L [facility] BUN 41(H) 6 - 25 mg/dL [facility] Creatinine 2.29(H) 0.80 - 1.30 mg/dL [facility] Glucose 154 70 - 199 mg/dL [facility] Comment: Interpretive Data Fasting glucose >/= 126 mg/dl is diagnostic for diabetes. Fasting is defined as no caloric intake for at least 8 hours. Fasting glucose between 100 mg/dl to 125 mg/dl is diagnostic of prediabetes. In a patient with classic symptoms of hyperglycemia or hyperglycemic crisis, a random glucose >/= 200 mg/dl is diagnostic for diabetes. In the absence of unequivocal hyperglycemia, results should be confirmed by repeat testing. The classification and Diagnosis of Diabetes Diabetes Care 2021; 46: S19-S40. Current interpretive data was last revised 2022. Calcium 8.4(L) 8.5 - 10.3 mg/dL [facility] Blood 02/21/2025 9:00 PM CDT 02/21/2025 9:36 PM CDT Delilah Adams MD PhD LAB BLOOD ORDERABLES F inal Result Performing Organization Address [facility] Co de Phone Number [facility] [place] [address] * POCT glucose (02/21/2025 8:16 PM CDT) Glucose, POC 183 70 - 199 mg/dL Blood 02/21/2025 8:16 PM CDT 02/21/2025 8:16 PM CDT Delilah Adams MD PhD LAB POCT ORDERABLES - DEVICE Final Result Performing Organization Address [facility] Co de Phone Number [facility] Department of [employer] [place] [address] * POCT glucose (02/21/2025 5:05 PM CDT) Glucose, POC 131 70 - 199 mg/dL Blood 02/21/2025 5:05 PM CDT 02/21/2025 5:05 PM CDT Delilah Adams MD PhD LAB POCT ORDERABLES - DEVICE Final Result Performing Organization Address City/[facility] Co de Phone Number [facility] [employer] [place] [address] * POCT glucose (02/21/2025 11:44 AM CDT) Glucose, POC 160 70 - 199 mg/dL Blood 02/21/2025 11:4 4 AM CDT 02/21/2025 11:44 AM CDT Delilah Adams MD PhD LAB POCT ORDERABLES - DEVICE Final Result Performing Organization Address [facility] Co de Phone Number [facility] Department [place] [address] * (ABNORMAL) aPTT (02/21/2025 11:25 AM CDT) aPTT 73(H) 28 - 38 sec Comment: Interpretive Data Heparin therapeutic range: 66.0 - 100.0 seconds. Range based on correlation with therapeutic heparin activity range of 0.3 - 0.7 Units/mL. Current interpretive data was last revised on 2023. Blood 02/21/2025 11:2 5 AM CDT 02/21/2025 12:41 PM CDT Narrative [facility] - 02/21/2025 12:51 PM CDT STAT PTT timing: - Draw 6 hours after heparin infusion initiation - Draw 6 hours after every dose change until 2 consecutive PTTs are therapeutic - Once 2 consecutive PTTs are therapeutic, obtain with daily labs until infusion is discontinued - - Restart every 6 hour lab draws and follow instructions accordingly if PTT is outside of therapeutic range Do not draw lab from IV line that is actively infusing heparin. Use the opposite arm. If arm with actively infusing heparin must be used, pause the infusion for at least 2 minutes, and draw specimen below the IV site. For patients with a central venous catheter (CVC), lab must be drawn peripherally (not from CVC). Stephanie Montalvo MANAGER [employer]ERAL DIRECTOR LAB BLOOD ORDERABLES Final Re sult Performing Organization Address [facility]/ZIP Co de Phone Number [facility] Department [place] [address] * POCT glucose (02/21/2025 7:57 AM CDT) Pathologist [facility] Glucose, POC 126 70 - 199 mg/dL Blood 02/21/2025 7:57 AM CDT 02/21/2025 7:57 AM CDT Delilah Adams MD PhD LAB POCT ORDERABLES - DEVICE Final Result Performing Organization Address [facility] Co de Phone Number [facility] [place] [address] * (ABNORMAL) aPTT (02/21/2025 5:07 AM CDT) aPTT 94(H) 28 - 38 sec Comment: Interpretive Data Heparin therapeutic range: 66.0 - 100.0 seconds. Range based on correlation with therapeutic heparin activity range of 0.3 - 0.7 Units/mL. Current interpretive data was last revised on 2023. Blood 02/21/2025 5:07 AM CDT 02/21/2025 6:34 AM CDT Narrative [facility] - 02/21/2025 7:06 AM CDT STAT PTT timing: - Draw 6 hours after heparin infusion initiation - Draw 6 hours after every dose change until 2 consecutive PTTs are therapeutic - Once 2 consecutive PTTs are therapeutic, obtain with daily labs until infusion is discontinued - - Restart every 6 hour lab draws and follow instructions accordingly if PTT is outside of therapeutic range Do not draw lab from IV line that is actively infusing heparin. Use the opposite arm. If arm with actively infusing heparin must be used, pause the infusion for at least 2 minutes, and draw specimen below the IV site. For patients with a central venous catheter (CVC), lab must be drawn peripherally (not from CVC). Stephanie Montalvo MANAGER EMBALMER [employer]ERAL DIRECTOR LAB BLOOD ORDERABLES Final Re sult Performing Organization Address City/[facility]/ZIP Co de Phone Number MEERA DAMON [facility] Department [place] [address] * (ABNORMAL) eGFR (02/20/2025 8:36 PM CDT) Pathologist [facility] eGFR 33(L) >=60 mL/min/1. 73 m2 Comment: Interpretive Data Reference Interval Normal >/= 90 mL/min/1.73m2 Mildly decreased* 60 - 89 mL/min/1.73m2 Mildly to moderately decreased 45 - 59 mL/min/1.73m2 Moderately to severely decreased 30 - 44 mL/min/1.73m2 Severely decreased 15 - 29 mL/min/1.73m2 Kidney Failure < 15 mL/min/1.73m2 *Relative to young adult level Estimated glomerular filtration rate is determined by the 2020 CKD-EPI equation recommended by the National Kidney Foundation (A Unifying Approach to GFR Estimation: Recommendations of the NKF-ASK Task Force on Reassessing the Inclusion of Race in Diagnosing Kidney Disease, JASN 2020). The CKD-EPI equation should not be used for patients with unstable renal function and has not been validated in children and those over 70. Current interpretive data was last reviewed 2021. Blood 02/20/2025 8:36 PM CDT 02/20/2025 10:00 PM CDT us Delilah Adams MD PhD LAB BLOOD ORDERABLES F inal Result [facility] Department [place] [address] * (ABNORMAL) aPTT (02/20/2025 8:36 PM CDT) aPTT 103(H) 28 - 38 sec Comment: Interpretive Data Heparin therapeutic range: 66.0 - 100.0 seconds. Range based on correlation with therapeutic heparin activity range of 0.3 - 0.7 Units/mL. Current interpretive data was last revised on 2023. Blood 02/20/2025 8:36 PM CDT 02/20/2025 10:02 PM CDT Narrative [facility] - 02/20/2025 10:11 PM CDT STAT PTT timing: - Draw 6 hours after heparin infusion initiation - Draw 6 hours after every dose change until 2 consecutive PTTs are therapeutic - Once 2 consecutive PTTs are therapeutic, obtain with daily labs until infusion is discontinued - - Restart every 6 hour lab draws and follow instructions accordingly if PTT is outside of therapeutic range Do not draw lab from IV line that is actively infusing heparin. Use the opposite arm. If arm with actively infusing heparin must be used, pause the infusion for at least 2 minutes, and draw specimen below the IV site. For patients with a central venous catheter (CVC), lab must be drawn peripherally (not from CVC). Stephanie Montalvo MANAGER E[employer]ALMER [employer]ERAL DIRECTOR LAB BLOOD ORDERABLES Final Re sult Performing Organization Address [facility]/ZIP Co de Phone Number [facility] Department [place] [address] * (ABNORMAL) CBC without differential (02/20/2025 8:36 PM CDT) [facility] WBC 8.65 3.80 - 9.90 K/cumm Hgb 7.2(L) 13.0 - 17.5 g/dL [facility] Hct 24.1(L) 38.9 - 50.3 % [facility] Plt 257 150 - 400 K/cumm [facility] MPV 10.2 9.1 - 12.3 fL [facility] RBC 2.77(L) 4.30 - 5.80 M/cumm [facility] MCV 87.0 81.3 - 96.4 fL [facility] MCH 26.0(L) 27.1 - 33.3 pg [facility] MCHC 29.9(L) 32.3 - 35.7 g/dL [facility] RDW CV 14.8 11.1 - 14.9 % [facility] RDW SD 46.6 35.7 - 48.1 fL [facility] NRBC abs 0.00 0.00 - 0.01 K/cumm [facility] Blood 02/20/2025 8:36 PM CDT 02/20/2025 10:00 PM CDT Delilah Adams MD PhD LAB BLOOD ORDERABLES F inal Result [facility] Department [place] [address] * Phosphorus (02/20/2025 8:36 PM CDT) Phosphorus, pl 2.5 2.3 - 4.5 mg/dL Blood 02/20/2025 8:36 PM CDT 02/20/2025 10:00 PM CDT Delilah Adams MD PhD LAB BLOOD ORDERABLES F inal Result [facility] Department [place] [address] * (ABNORMAL) Basic metabolic panel (02/20/2025 8:36 PM CDT) Pathologist [facility] Sodium 143 135 - 145 mmol/L Potassium, pl 4.4 3.3 - 4.9 mmol/L [facility] Chloride 112(H) 97 - 110 mmol/L [facility] CO2 21(L) 22 - 32 mmol/L [facility] Anion gap 10 2 - 15 mmol/L [facility] BUN 36(H) 6 - 25 mg/dL [facility] Creatinine 2.11(H) 0.80 - 1.30 mg/dL [facility] Glucose 148 70 - 199 mg/dL [facility] Comment: Interpretive Data Fasting glucose >/= 126 mg/dl is diagnostic for diabetes. Fasting is defined as no caloric intake for at least 8 hours. Fasting glucose between 100 mg/dl to 125 mg/dl is diagnostic of prediabetes. In a patient with classic symptoms of hyperglycemia or hyperglycemic crisis, a random glucose >/= 200 mg/dl is diagnostic for diabetes. In the absence of unequivocal hyperglycemia, results should be confirmed by repeat testing. The classification and Diagnosis of Diabetes Diabetes Care 2021; 46: S19-S40. Current interpretive data was last revised 2022. Calcium 8.3(L) 8.5 - 10.3 mg/dL [facility] Blood 02/20/2025 8:36 PM CDT 02/20/2025 10:00 PM CDT Delilah Adams MD PhD LAB BLOOD ORDERABLES F inal Result Performing Organization Address City/[facility]/ZIP Co de Phone Number [facility] [employer] [place] [address] * POCT glucose (02/20/2025 7:34 PM CDT) Glucose, POC 183 70 - 199 mg/dL Blood 02/20/2025 7:34 PM CDT 02/20/2025 7:34 PM CDT Delilah Adams MD PhD LAB POCT ORDERABLES - DEVICE Final Result Performing Organization Address [facility] Co de Phone Number [facility] [employer] [place] [address] * POCT glucose (02/20/2025 5:00 PM CDT) Glucose, POC 171 70 - 199 mg/dL Blood 02/20/2025 5:00 PM CDT 02/20/2025 5:00 PM CDT Delilah Adams MD PhD LAB POCT ORDERABLES - DEVICE Final Result Performing Organization Address [facility] Co de Phone Number [facility] [employer] [place] [address] * POCT glucose (02/20/2025 11:28 AM CDT) Glucose, POC 162 70 - 199 mg/dL Blood 02/20/2025 11:2 8 AM CDT 02/20/2025 11:28 AM CDT Delilah Adams MD PhD LAB POCT ORDERABLES - DEVICE Final Result Performing Organization Address City/[facility] Co de Phone Number [facility] [employer] [place] [address] * (ABNORMAL) aPTT (02/20/2025 10:27 AM CDT) aPTT 98(H) 28 - 38 sec Comment: Interpretive Data Heparin therapeutic range: 66.0 - 100.0 seconds. Range based on correlation with therapeutic heparin activity range of 0.3 - 0.7 Units/mL. Current interpretive data was last revised on 2023. Blood 02/20/2025 10:2 7 AM CDT 02/20/2025 11:29 AM CDT [facility]ative [facility] - 02/20/2025 11:38 AM CDT STAT PTT timing: - Draw 6 hours after heparin infusion initiation - Draw 6 hours after every dose change until 2 consecutive PTTs are therapeutic - Once 2 consecutive PTTs are therapeutic, obtain with daily labs until infusion is discontinued - - Restart every 6 hour lab draws and follow instructions accordingly if PTT is outside of therapeutic range Do not draw lab from IV line that is actively infusing heparin. Use the opposite arm. If arm with actively infusing heparin must be used, pause the infusion for at least 2 minutes, and draw specimen below the IV site. For patients with a central venous catheter (CVC), lab must be drawn peripherally (not from CVC). Stephanie Montalvo MANAGER EMBALMER [employer]ERAL DIRECTOR LAB BLOOD ORDERABLES Final Re sult [facility] Department of [employer] [place] [address] * POCT glucose (02/20/2025 7:18 AM CDT) [facility] Glucose, POC 95 70 - 199 mg/dL Blood 02/20/2025 7:18 AM CDT 02/20/2025 7:18 AM CDT Deillah Adams MD PhD LAB POCT ORDERABLES - DEVICE Final Result Performing Organization Address City/[facility]/ZIP Co de Phone Number [facility] Department [place] [address] * POCT glucose (02/20/2025 4:18 AM CDT) Pathologist [facility] Glucose, POC 93 70 - 199 mg/dL Blood 02/20/2025 4:18 AM CDT 02/20/2025 4:18 AM CDT Delilah Adams MD PhD LAB POCT ORDERABLES - DEVICE Final Result Performing Organization Address [facility] de Phone Number [facility] Department [place] [address] * (ABNORMAL) aPTT (02/20/2025 4:12 AM CDT) [facility] aPTT 98(H) 28 - 38 sec Comment: Interpretive Data Heparin therapeutic range: 66.0 - 100.0 seconds. Range based on correlation with therapeutic heparin activity range of 0.3 - 0.7 Units/mL. Current interpretive data was last revised on 2023. Blood 02/20/2025 4:12 AM CDT 02/20/2025 6:39 AM CDT Delilah Adams MD PhD LAB BLOOD ORDERABLES F inal Result Performing Organization Address [facility] de Phone Number [facility] Department [place] [address] * (ABNORMAL) eGFR (02/19/2025 9:15 PM CDT) [facility] eGFR 34(L) >=60 mL/min/1. 73 m2 Comment: Interpretive Data Reference Interval Normal >/= 90 mL/min/1.73m2 Mildly decreased* 60 - 89 mL/min/1.73m2 Mildly to moderately decreased 45 - 59 mL/min/1.73m2 Moderately to severely decreased 30 - 44 mL/min/1.73m2 Severely decreased 15 - 29 mL/min/1.73m2 Kidney Failure < 15 mL/min/1.73m2 *Relative to young adult level Estimated glomerular filtration rate is determined by the 2020 CKD-EPI equation recommended by the National Kidney Foundation (A Unifying Approach to GFR Estimation: Recommendations of the NKF-ASK Task Force on Reassessing the Inclusion of Race in Diagnosing Kidney Disease, JASN 2020). The CKD-EPI equation should not be used for patients with unstable renal function and has not been validated in children and those over 70. Current interpretive data was last reviewed 2021. Blood 02/19/2025 9:15 PM CDT 02/19/2025 9:57 PM CDT us Delilah Adams MD PhD LAB BLOOD ORDERABLES F inal Result [facility]ER[facility] DAMON [facility] Department [place] [address] * (ABNORMAL) aPTT (02/19/2025 9:15 PM CDT) aPTT 110(H) 28 - 38 sec Comment: Interpretive Data Heparin therapeutic range: 66.0 - 100.0 seconds. Range based on correlation with therapeutic heparin activity range of 0.3 - 0.7 Units/mL. Current interpretive data was last revised on 2023. Blood 02/19/2025 9:15 PM CDT 02/19/2025 9:57 PM CDT Narrative MEERA DAMON - 02/19/2025 10:07 PM CDT STAT PTT timing: - Draw 6 hours after heparin infusion initiation - Draw 6 hours after every dose change until 2 consecutive PTTs are therapeutic - Once 2 consecutive PTTs are therapeutic, obtain with daily labs until infusion is discontinued - - Restart every 6 hour lab draws and follow instructions accordingly if PTT is outside of therapeutic range Do not draw lab from IV line that is actively infusing heparin. Use the opposite arm. If arm with actively infusing heparin must be used, pause the infusion for at least 2 minutes, and draw specimen below the IV site. For patients with a central venous catheter (CVC), lab must be drawn peripherally (not from CVC). Stephanie Montalvo MANAGER EMBALMER [employer]ERAL DIRECTOR LAB BLOOD ORDERABLES Final Re sult Performing Organization Address [facility]/ZIP Co de Phone Number [facility] Department [place] [address] * (ABNORMAL) CBC without differential (02/19/2025 9:15 PM CDT) WBC 8.65 3.80 - 9.90 K/cumm Hgb 7.6(L) 13.0 - 17.5 g/dL [facility] Hct 26.5(L) 38.9 - 50.3 % [facility] Plt 285 150 - 400 K/cumm [facility] MPV 9.5 9.1 - 12.3 fL [facility] RBC 3.05(L) 4.30 - 5.80 M/cumm [facility] MCV 86.9 81.3 - 96.4 fL [facility] MCH 24.9(L) 27.1 - 33.3 pg [facility] MCHC 28.7(L) 32.3 - 35.7 g/dL [facility] RDW CV 14.7 11.1 - 14.9 % [facility] RDW SD 46.4 35.7 - 48.1 fL [facility] NRBC abs 0.00 0.00 - 0.01 K/cumm [facility] Blood 02/19/2025 9:15 PM CDT 02/19/2025 9:56 PM CDT Delilah Adams MD PhD LAB BLOOD ORDERABLES F inal Result [facility] Department [place] [address] * Phosphorus (02/19/2025 9:15 PM CDT) Phosphorus, pl 2.5 2.3 - 4.5 mg/dL Blood 02/19/2025 9:15 PM CDT 02/19/2025 9:57 PM CDT Delilha Adams MD PhD LAB BLOOD ORDERABLES F inal Result Performing Organization Address City/[facility]/ZIP Co de Phone Number [facility] Department [place] [address] * Magnesium (02/19/2025 9:15 PM CDT) Pathologist [facility] Magnesium 2.4 1.4 - 2.5 mg/dL Blood 02/19/2025 9:15 PM CDT 02/19/2025 9:57 PM CDT Delilah Adams MD PhD LAB BLOOD ORDERABLES F inal Result Performing Organization Address [facility] de Phone Number [facility] [place] [address] * (ABNORMAL) Basic metabolic panel (02/19/2025 9:15 PM CDT) Pathologist [facility] Sodium 141 135 - 145 mmol/L Potassium, pl 3.8 3.3 - 4.9 mmol/L [facility] Chloride 109 97 - 110 mmol/L [facility] CO2 23 22 - 32 mmol/L [facility] Anion gap 9 2 - 15 mmol/L [facility] BUN 33(H) 6 - 25 mg/dL [facility] Creatinine 2.04(H) 0.80 - 1.30 mg/dL [facility] Glucose 100 70 - 199 mg/dL [facility] Comment: Interpretive Data Fasting glucose >/= 126 mg/dl is diagnostic for diabetes. Fasting is defined as no caloric intake for at least 8 hours. Fasting glucose between 100 mg/dl to 125 mg/dl is diagnostic of prediabetes. In a patient with classic symptoms of hyperglycemia or hyperglycemic crisis, a random glucose >/= 200 mg/dl is diagnostic for diabetes. In the absence of unequivocal hyperglycemia, results should be confirmed by repeat testing. The classification and Diagnosis of Diabetes Diabetes Care 2021; 46: S19-S40. Current interpretive data was last revised 2022. Calcium 8.5 8.5 - 10.3 mg/dL [facility] Blood 02/19/2025 9:15 PM CDT 02/19/2025 9:57 PM CDT Delilah Adams MD PhD LAB BLOOD ORDERABLES F inal Result Performing Organization Address City/[facility]/ZIP Co de Phone Number [facility] [place] [address] * POCT glucose (02/19/2025 9:03 PM CDT) Glucose, POC 104 70 - 199 mg/dL Blood 02/19/2025 9:03 PM CDT 02/19/2025 9:03 PM CDT Delilah Adams MD PhD LAB POCT ORDERABLES - DEVICE Final Result Performing Organization Address [facility] Co de Phone Number [facility] [place] [address] * (ABNORMAL) Urinalysis reflex to microscopic (02/19/2025 6:12 PM CDT) Color, ur Straw Yellow Clarity, ur Clear Clear [facility] Specific gravity, ur 1.018 1.003 - 1.030 [facility] pH, urine 6.0 [facility] Comment: Interpretive Data U rine pH is affected by diet, medications, systemic acid-base disturbances, and renal tubular function. pH may affect urinary stone formation. For example, urine pH below 6.0 may help reduce the tendency for calcium phosphate stones and pH greater than 6.0 may reduce the tendency for uric acid stone formation. Source: [facility] [employer] Current Interpretive Data was last revised on 2017 Protein, ur ql 2+(A) Negative [facility] Glucose, ur ql Negative Negative [facility] Ketones, ur Trace Negative [facility] Bilirubin, ur Negative Negative [facility] Blood, ur Trace(A) Negative [facility] Urobilinogen, ur <2.0 <2.0 mg/dL [facility] Nitrite, ur Negative Negative [facility] Leukocyte esterase, ur Negative Negative [facility] UA reflex comment Reflex to microscopic UA will be performed. [facility] Urine 02/19/2025 6:12 PM CDT 02/19/2025 6:40 PM CDT Treasure Toro NP LAB URINE ORDERABLES F inal Result Performing Organization Address City/[facility] Co de Phone Number [facility] [employer] [place] [address] * Sodium, urine, random (02/19/2025 6:12 PM CDT) Sodium, ur 78 mmol/L Comment: Interpretive Data No reference range established. Current interpretive data was last revised 2019. Urine 02/19/2025 6:12 PM CDT 02/19/2025 6:47 PM CDT Treasure Toro NP LAB URINE ORDERABLES F inal Result Performing Organization Address [facility] Co de Phone Number [facility] [employer] [place] [address] * Creatinine, urine, random (02/19/2025 6:12 PM CDT) Creatinine Ur 108.5 mg/dL Comment: Interpretive Data No reference range established. Current interpretive data was last revised 2019. Urine 02/19/2025 6:12 PM CDT 02/19/2025 6:47 PM CDT Treasure Toro NP LAB URINE ORDERABLES F inal Result Performing Organization Address City/[facility] Co de Phone Number [facility] [place] [address] * (ABNORMAL) Urinalysis, microscopic only (02/19/2025 6:12 PM CDT) Pathologist [facility] WBC, ur 0-5 0 - 5 /HPF RBC, ur 3-5(A) 0 - 2 /HPF [facility] Epithelial cells, squamous, ur 1-5 0 - 5 /HPF [facility] Mucous, ur Present(A) [facility] Urine 02/19/2025 6:12 PM CDT 02/19/2025 6:40 PM CDT Treasure Toro MANAGER [employer] LAB URINE ORDERABLES F inal Result [facility] Department [place] [address] * POCT glucose (02/19/2025 5:13 PM CDT) Pathologist [facility] Glucose, POC 82 70 - 199 mg/dL Blood 02/19/2025 5:13 PM CDT 02/19/2025 5:13 PM CDT Delilah Adams MD PhD LAB POCT ORDERABLES - DEVICE Final Result Performing Organization Address City/[facility]/ZIP Co de Phone Number [facility] Department of [employer] [place] [address] * aPTT (02/19/2025 1:31 PM CDT) Pathologist [facility] aPTT 37 28 - 38 sec Comment: Interpretive Data Heparin therapeutic range: 66.0 - 100.0 seconds. Range based on correlation with therapeutic heparin activity range of 0.3 - 0.7 Units/mL. Current interpretive data was last revised on 2023. Blood 02/19/2025 1:31 PM CDT 02/19/2025 2:24 PM CDT Narrative [facility] - 02/19/2025 2:48 PM CDT Baseline prior to heparin initiation [facility] Sadaf MANAGER [employer] LAB BLOOD ORDERABLES Final Re sult Performing Organization Address [facility]/ZIP Co de Phone Number [facility] [place] [address] * (ABNORMAL) Protime-INR (02/19/2025 1:31 PM CDT) Pathologist [facility] PT 14.2(H) 9.7 - 13.0 sec INR 1.31(H) 0.90 - 1.20 [facility] Comment: Interpretive data Oral anticoagulant therapeutic ranges: Venous thromboembolism prophylaxis or treatment: 2.0-3.0 CARDIOLOGY Standard range: 2.0-3.0 High-intensity range: 2.5-3.5 Refer to indication-specific guidelines for appropriate target ranges for prosthetic heart valve replacement. Current interpretive data was last revised on 2019. Blood 02/19/2025 1:31 PM CDT 02/19/2025 2:24 PM CDT Narrative [facility] - 02/19/2025 2:48 PM CDT Baseline prior to heparin initiation [facility] Final Re sult Performing Organization Address [facility] Co de Phone Number [facility] Department [place] [address] * (ABNORMAL) CBC without differential (02/19/2025 1:31 PM CDT) Pathologist [facility] WBC 7.85 3.80 - 9.90 K/cumm Hgb 7.6(L) 13.0 - 17.5 g/dL [facility] Hct 26.5(L) 38.9 - 50.3 % [facility] Plt 283 150 - 400 K/cumm [facility] MPV 9.7 9.1 - 12.3 fL [facility] RBC 3.01(L) 4.30 - 5.80 M/cumm [facility] MCV 88.0 81.3 - 96.4 fL [facility] MCH 25.2(L) 27.1 - 33.3 pg [facility] MCHC 28.7(L) 32.3 - 35.7 g/dL [facility] RDW CV 14.7 11.1 - 14.9 % [facility] RDW SD 46.7 35.7 - 48.1 fL [facility] NRBC abs 0.00 0.00 - 0.01 K/cumm [facility] Blood 02/19/2025 1:31 PM CDT 02/19/2025 2:22 PM CDT Narrative [facility] - 02/19/2025 2:31 PM CDT Baseline prior to heparin initiation Stephanie Montalvo MANAGER [employer] LAB BLOOD ORDERABLES Final Re sult Performing Organization Address City/[facility]/ZIP Co de Phone Number [facility] Department [place] [address] * POCT glucose (02/19/2025 12:19 PM CDT) [facility] Signature Glucose, POC 89 70 - 199 mg/dL Blood 02/19/2025 12:1 9 PM CDT 02/19/2025 12:19 PM CDT Delilah Adams MD PhD LAB POCT ORDERABLES - DEVICE Final Result Performing Organization Address City/[facility]/ZIP Co de Phone Number [facility] Department [place] [address] * US Kidney Complete (02/19/2025 11:47 AM CDT) Anatomical Region Laterality Modality Kidney N/A Ultrasound 02/19/2025 11:4 8 AM CDT Impressions 02/19/2025 11:48 AM CDT Normal kidneys. No hydronephrosis. The radiology attending physician has personally reviewed this study, and had reviewed and/or edited this written report and agrees with it. Electronically signed by: Masood Georges M.D., Ph.D Narrative 02/19/2025 11:48 AM CDT EXAMINATION: COMPLETE RENAL SONOGRAM HISTORY: 70-year-old male with acute kidney injury COMPARISON: None FINDINGS: Kidneys: The echogenicity of both kidneys is normal. The kidneys are normal in size. The right kidney measures 11.4 cm in length, and the left, 11.4 cm in length. There is no hydronephrosis in either kidney. There are no renal calculi visualized. Bladder: The urinary bladder is not seen. Procedure Note Masood Georges MD PhD - 02/19/2025 EXAMINATION: COMPLETE RENAL SONOGRAM HISTORY: 70-year-old male with acute kidney injury COMPARISON: None FINDINGS: Kidneys: The echogenicity of both kidneys is normal. The kidneys are normal in size. The right kidney measures 11.4 cm in length, and the left, 11.4 cm in length. There is no hydronephrosis in either kidney. There are no renal calculi visualized. Bladder: The urinary bladder is not seen. IMPRESSION: Normal kidneys. No hydronephrosis. The radiology attending physician has personally reviewed this study, and had reviewed and/or edited this written report and agrees with it. Electronically signed by: Masood Georges M.D., Ph.D us Treasure Toro MANAGER [employer] DIRECTOR IMG US PROCEDURES Magda l Result * POCT glucose (02/19/2025 8:07 AM CDT) Glucose, POC 87 70 - 199 mg/dL Blood 02/19/2025 8:07 AM CDT 02/19/2025 8:07 AM CDT us Delilah Adams MD PhD LAB POCT ORDERABLES - DEVICE Final Result [facility] Department [place] [address] * (ABNORMAL) eGFR (02/18/2025 10:52 PM CDT) eGFR 36(L) >=60 mL/min/1. 73 m2 Comment: Interpretive Data Reference Interval Normal >/= 90 mL/min/1.73m2 Mildly decreased* 60 - 89 mL/min/1.73m2 Mildly to moderately decreased 45 - 59 mL/min/1.73m2 Moderately to severely decreased 30 - 44 mL/min/1.73m2 Severely decreased 15 - 29 mL/min/1.73m2 Kidney Failure < 15 mL/min/1.73m2 *Relative to young adult level Estimated glomerular filtration rate is determined by the 2020 CKD-EPI equation recommended by the National Kidney Foundation (A Unifying Approach to GFR Estimation: Recommendations of the NKF-ASK Task Force on Reassessing the Inclusion of Race in Diagnosing Kidney Disease, JASN 2020). The CKD-EPI equation should not be used for patients with unstable renal function and has not been validated in children and those over 70. Current interpretive data was last reviewed 2021. Blood 02/18/2025 10:5 2 PM CDT 02/18/2025 11:29 PM CDT Delilah Adams MD PhD LAB BLOOD ORDERABLES F inal Result Performing Organization Address City/[facility] Co de Phone Number [facility] Department [place] [address] * (ABNORMAL) aPTT (02/18/2025 10:52 PM CDT) aPTT 65(H) 28 - 38 sec Comment: Interpretive Data Heparin therapeutic range: 66.0 - 100.0 seconds. Range based on correlation with therapeutic heparin activity range of 0.3 - 0.7 Units/mL. Current interpretive data was last revised on 2023. Blood 02/18/2025 10:5 2 PM CDT 02/18/2025 11:59 PM CDT Delilah Adams MD PhD LAB BLOOD ORDERABLES F inal Result Performing Organization Address City/[facility] Co de Phone Number [facility] Department [place] [address] * Protime-INR (02/18/2025 10:52 PM CDT) [facility] PT 13.0 9.7 - 13.0 sec INR 1.20 0.90 - 1.20 [facility] Comment: Interpretive data Oral anticoagulant therapeutic ranges: Venous thromboembolism prophylaxis or treatment: 2.0-3.0 CARDIOLOGY Standard range: 2.0-3.0 High-intensity range: 2.5-3.5 Refer to indication-specific guidelines for appropriate target ranges for prosthetic heart valve replacement. Current interpretive data was last revised on 2019. Blood 02/18/2025 10:5 2 PM CDT 02/18/2025 11:59 PM CDT Narrative [facility] - 02/19/2025 12:19 AM CDT Baseline prior to apixaban initiation. Delilah Adams MD PhD LAB BLOOD ORDERABLES F inal Result [facility] Department [place] [address] * (ABNORMAL) CBC without differential (02/18/2025 10:52 PM CDT) [facility] WBC 8.3 3.8 - 9.9 K/cumm Hgb 7.6(L) 13.0 - 17.5 g/dL [facility] Hct 26.2(L) 38.9 - 50.3 % [facility] Plt 260 150 - 400 K/cumm [facility] MPV 10.2 9.1 - 12.3 fL [facility] RBC 3.00(L) 4.30 - 5.80 M/cumm [facility] MCV 87.3 81.3 - 96.4 fL [facility] MCH 25.3(L) 27.1 - 33.3 pg [facility] MCHC 29.0(L) 32.3 - 35.7 g/dL [facility] RDW CV 14.6 11.1 - 14.9 % [facility] RDW SD 45.9 35.7 - 48.1 fL [facility] NRBC abs 0.00 0.00 - 0.01 K/cumm [facility] Blood 02/18/2025 10:5 2 PM CDT 02/18/2025 11:29 PM CDT Delilah Adams MD PhD LAB BLOOD ORDERABLES F inal Result [facility] [employer] [place] [address] * Phosphorus (02/18/2025 10:52 PM CDT) Phosphorus, pl 2.8 2.3 - 4.5 mg/dL Blood 02/18/2025 10:5 2 PM CDT 02/18/2025 11:29 PM CDT Delilah Adams MD PhD LAB BLOOD ORDERABLES F inal Result Performing Organization Address City/[facility] Co de Phone Number [facility] [employer] [place] [address] * Magnesium (02/18/2025 10:52 PM CDT) Magnesium 2.5 1.4 - 2.5 mg/dL Blood 02/18/2025 10:5 2 PM CDT 02/18/2025 11:29 PM CDT Delilah Adams MD PhD LAB BLOOD ORDERABLES F inal Result Performing Organization Address City/[facility] Co de Phone Number [facility] [employer] [place] [address] * (ABNORMAL) Hepatic function panel (02/18/2025 10:52 PM CDT) Bilirubin, total 0.3 0.1 - 1.2 mg/dL Bilirubin, direct <0.2 0.1 - 0.3 mg/dL [facility] Protein, pl 7.0 6.5 - 8.5 g/dL [facility] Albumin 2.6(L) 3.5 - 5.0 g/dL [facility] Alk phos 85 40 - 130 Units/L [facility] ALT 8 7 - 55 Units/L [facility] AST 24 10 - 50 Units/L [facility] Blood 02/18/2025 10:5 2 PM CDT 02/18/2025 11:30 PM CDT Narrative [facility] - 02/18/2025 11:58 PM CDT Baseline prior to apixaban initiation. us Delilah Adams MD PhD LAB BLOOD ORDERABLES F inal Result [facility] Department [place] [address] * (ABNORMAL) Basic metabolic panel (02/18/2025 10:52 PM CDT) Sodium 146(H) 135 - 145 mmol/L Potassium, pl 3.9 3.3 - 4.9 mmol/L [facility] Chloride 115(H) 97 - 110 mmol/L [facility] CO2 20(L) 22 - 32 mmol/L [facility] Anion gap 11 2 - 15 mmol/L [facility] BUN 37(H) 6 - 25 mg/dL [facility] Creatinine 1.93(H) 0.80 - 1.30 mg/dL [facility] Glucose 94 70 - 199 mg/dL [facility] Comment: Interpretive Data Fasting glucose >/= 126 mg/dl is diagnostic for diabetes. Fasting is defined as no caloric intake for at least 8 hours. Fasting glucose between 100 mg/dl to 125 mg/dl is diagnostic of prediabetes. In a patient with classic symptoms of hyperglycemia or hyperglycemic crisis, a random glucose >/= 200 mg/dl is diagnostic for diabetes. In the absence of unequivocal hyperglycemia, results should be confirmed by repeat testing. The classification and Diagnosis of Diabetes Diabetes Care 202; 46: S19-S40. Current interpretive data was last revised 2022. Calcium 8.4(L) 8.5 - 10.3 mg/dL [facility] Blood 02/18/2025 10:5 2 PM CDT 02/18/2025 11:29 PM CDT Delilah Adams MD PhD LAB BLOOD ORDERABLES F inal Result Performing Organization Address City/[facility] Co de Phone Number [facility] [employer] [place] [address] * POCT glucose (02/18/2025 8:18 PM CDT) Glucose, POC 85 70 - 199 mg/dL Blood 02/18/2025 8:18 PM CDT 02/18/2025 8:18 PM CDT Delilah Adams MD PhD LAB POCT ORDERABLES - DEVICE Final Result Performing Organization Address [facility] Co de Phone Number [facility] [employer] [place] [address] * POCT glucose (02/18/2025 6:52 PM CDT) Glucose, POC 79 70 - 199 mg/dL Blood 02/18/2025 6:52 PM CDT 02/18/2025 6:52 PM CDT Delilah Adams MD PhD LAB POCT ORDERABLES - DEVICE Final Result Performing Organization Address [facility] Co de Phone Number [facility] [employer] [place] [address] * POCT glucose (02/18/2025 3:43 PM CDT) Glucose, POC 87 70 - 199 mg/dL Blood 02/18/2025 3:43 PM CDT 02/18/2025 3:43 PM CDT Delilah Adams MD PhD LAB POCT ORDERABLES - DEVICE Final Result Performing Organization Address City/[facility] Co de Phone Number [facility] [place] [address] * POCT glucose (02/18/2025 12:08 PM CDT) [facility] Signature Glucose, POC 92 70 - 199 mg/dL Blood 02/18/2025 12:0 8 PM CDT 02/18/2025 12:08 PM CDT Delilah Adams MD PhD LAB POCT ORDERABLES - DEVICE Final Result Performing Organization Address [facility] de Phone Number [facility] [place] [address] * TRANSTHORACIC ECHO (TTE) COMPLETE W DOPPLER/CF W CONTRAST (02/18/2025 10:01 AM CDT) Anatomical Region Laterality Modality Ultrasound 02/18/2025 8:57 AM CDT Narrative 02/18/2025 11:11 AM CDT [facility] [place] [address] Transthoracic Echocardiographic Report Patient Name: GREGORY KAT A : 1955 (70y 1m) Gender: M Study Date: 02/18/2025 08:57:06 AM Ht(Inch): 73 Wt(Lb): 300.05 BSA: 2.65 [employer] Machine: Eliseo Moncada RDCS Location: [id number] Order Provider: DELILAH ADAMS Heart Rate: 81 BMI: 39.58 Ref Provider: DELILAH ADAMS PROCEDURES: Echocardiographic Report: Transthoracic complete echo with strain imaging and contrast, 2D, spectral and tissue Doppler, color flow Doppler, M-mode. Contrast: Contrast Enhancement was Employed: After initial imaging due to sub- optimal quality related to co-morbidity defined by patient's body habitus and due to suboptimal image quality with inadequate visualization of at least 2 of 16 LV wall segments in any view after initial imaging. Perflutren contrast was administered using the volume necessary to obtain adequate images. 0.8 ml Optison Administered, (2.2 ml wasted). INDICATIONS: Gangrene, risk for endocarditis and Atrial fibrillation. CONCLUSIONS: 1. The left ventricle is small based on volume index. Concentric LV remodeling. Mildly depressed left ventricular systolic function. The Ejection Fraction (Pascual's) is measured at 51 %. Grade I diastolic dysfunction (normal LA pressure). 2. There are no regional wall motion abnormalities. 3. Right ventricular dilatation. Normal right ventricular systolic function. 4. Right atrial dilatation. 5. Moderate mitral annular calcification. Mild mitral valve regurgitation. 6. No vegetations seen. 7. Unable to determine PASP due to inadequate TR jet, but the mean PA pressure appears normal based on the PV acceleration time. 8. IVC is normal in size. ATTESTATION: I have personally reviewed and interpreted this study without fellow or resident. - DISCLAIMER: The study images and the final report will be retained in the patient chart by the Echo Laboratory for the legally required time period. This chart constitutes the legal record of any testing performed. FINDINGS: Study Quality: Good. Left Ventricle: The left ventricle is small based on volume index. Concentric LV remodeling. Mildly depressed left ventricular systolic function. The Ejection Fraction (Pascual's) is measured at 51 %. Grade I diastolic dysfunction (normal LA pressure). Dyssynchronous septal motion consistent with intraventricular conduction delay or bundle branch block. Resting Segmental Wall Motion Analysis: Total wall motion score is 1.00. There are no regional wall motion abnormalities. Right Ventricle: Right ventricular dilatation. RV dilation Mild RV dilation. Normal right ventricular systolic function. Left Atrium: The left atrium is normal in size. Right Atrium: Right atrial dilatation. Atrial Septum: Normal interatrial septum. Mitral Valve: Moderate mitral annular calcification. Mild mitral valve regurgitation. Aortic Valve: Normal trileaflet aortic valve. No aortic regurgitation. The mean transaortic gradient is 3 mmHg. The aortic valve area by the continuity equation (using VTI) is 3.92 cm2. Aortic valve dimensionless index is 0.88. Tricuspid Valve: Normal tricuspid valve structure. No tricuspid regurgitation. Pulmonic Valve: Normal pulmonic valve structure. Mild pulmonic regurgitation. Pericardium: Normal pericardium without pericardial effusion. No pericardial effusion. There is an anterior echo free space consistent with epicardial fat pad. Aorta: Moderate aortic root dilation at sinuses of Valsalva. Normal aortic root size when indexed. The ascending aorta is normal in size when indexed. IVC: IVC is normal in size. PASP: Unable to determine PASP due to inadequate TR jet, but the mean PA pressure appears normal based on the PV acceleration time. MEASUREMENTS: 2D/MM Value Range Doppler Value Range LVIDd 2D 4.59 cm [ 4.20 - 5.80 ] AV Peak Jimmie 1.1 m/s [ 1.0 - 1.7 ] LVIDs 2D 3.39 cm [ 2.50 - 4.00 ] AV Peak PG 4.84 mmHg IVSd 2D 1.70 cm [ 0.60 - 1.00 ] AV Mean PG 3 mmHg LVPWd 2D 1.41 cm [ 0.60 - 1.00 ] AV VTI 25.2 cm LV Thickness Ratio 1.2 LVOT Peak Jimmie 1.1 m/s [ 0.7 - 1.1 ] LV FS 2D 26.16 % [ 25.00 - 43.00 ] LVOT Peak PG 4.84 mmHg LV Mass 2D 303.07 g LVOT Mean PG 2 mmHg LV Mass Index 2D 114.37 g/m2 LVOT VTI 22.2 cm RWT 0.61 LVOT Diam 2.38 cm EDV Mod BP 89.49 ml [ 62.00 - 150.00 ] JOSAFAT VTI 3.92 cm2 LV EDV Index 33.77 ml/m2 LVOT/AV VTI 0.88 - Dimensionless index (DVI) ESV Mod BP 43.53 ml [ 21.00 - 61.00 ] MV E Peak Jimmie 0.8 m/s [ 0.6 - 1.3 ] EF Mod BP 51 % [ 52 - 72 ] MV A Peak Jimmie 1.2 m/s [ 1.0 - 1.2 ] LA Length 4C 6.96 cm MV E/A 0.7 ratio [ 0.8 - 1.5 ] LA Length 2C 7.67 cm MV Decel Time 306.49 msec [ 104.00 - 258.00 ] LA Volume BP 91.18 ml Med E` Jimmie 6.5 cm/sec [ 8.0 - 25.0 ] LA Volume Index 34.41 ml/m2 [ 16.00 - 34.00 ] Lat E` Jimmie 6.7 cm/sec [ 10.0 - 25.0 ] RV Base Dimen 2D 4.9 cm [ 2.5 - 4.2 ] Average E/E` 12.12 TAPSE 1.90 cm [ 1.71 - 5.00 ] RV S` 11.78 cm/sec RA Volume 88.03 ml PV Peak Jimmie 0.6 m/s [ 0.4 - 0.8 ] RA Volume Index 33.22 ml/m2 PV Peak PG 1.44 mmHg AoR Diam 2D 4.63 cm [ 3.10 - 3.70 ] PI ED Jimmie 149.63 m/sec Ao Root Index 1.75 cm/m2 [ 1.00 - 2.00 ] Asc Ao Diam 2D 3.99 cm Asc Ao Index 1.51 cm/m2 Electronically Signed By: Morales Patterson MD, PHD 02/18/2025 11:11:14 AM CDT Procedure Note Morales Patterson MD PhD - 02/18/2025 [facility] [place] [address] Transthoracic Echocardiographic Report Patient Name: GREGORY KAT A : 1955 (70y 1m) Gender: M Study Date: 02/18/2025 08:57:06 AM Ht(Inch): 73 Wt(Lb): 300.05 BSA: 2.65 [employer] Machine: Eliseo Moncada [facility] Location: [id number] Order Provider:DELILAH ADAMS Heart Rate: 81 BMI: 39.58 Ref Provider: DELILAH ADAMS PROCEDURES: Echocardiographic Report: Transthoracic complete echo with strain imagingand contrast, 2D, spectral and tissue Doppler, color flow Doppler, M-mode. Contrast: Contrast Enhancement was Employed: After initial imaging due tosub- optimal quality related to co-morbidity defined by patient's body habitus and dueto suboptimal image quality with inadequate visualization of at least 2 of 16 LV wallsegments in any view after initial imaging. Perflutren contrast was administered using thevolume necessary to obtain adequate images. 0.8 ml Optison Administered, (2.2 mlwasted). INDICATIONS: Gangrene, risk for endocarditis and Atrial fibrillation. CONCLUSIONS: 1. The left ventricle is small based on volume index. Concentric LVremodeling. Mildly depressed left ventricular systolic function. The Ejection Fraction(Pascual's) is measured at 51 %. Grade I diastolic dysfunction (normal LA pressure). 2. There are no regional wall motion abnormalities. 3. Right ventricular dilatation. Normal right ventricular systolicfunction. 4. Right atrial dilatation. 5. Moderate mitral annular calcification. Mild mitral valveregurgitation. 6. No vegetations seen. 7. Unable to determine PASP due to inadequate TR jet, but the mean PApressure appears normal based on the PV acceleration time. 8. IVC is normal in size. ATTESTATION: I have personally reviewed and interpreted this study without fellow orresident. - DISCLAIMER: The study images and the final report will be retained in the patientchart by the Echo Laboratory for the legally required time period. This chart constitutesthe legal record of any testing performed. FINDINGS: Study Quality: Good. Left Ventricle: The left ventricle is small based on volume index.Concentric LV remodeling. Mildly depressed left ventricular systolic function. TheEjection Fraction (Pascual's) is measured at 51 %. Grade I diastolic dysfunction (normal LApressure). Dyssynchronous septal motion consistent with intraventricular conductiondelay or bundle branch block. Resting Segmental Wall Motion Analysis: Total wall motion score is 1.00.There are no regional wall motion abnormalities. Right Ventricle: Right ventricular dilatation. RV dilation Mild RVdilation. Normal right ventricular systolic function. Left Atrium: The left atrium is normal in size. Right Atrium: Right atrial dilatation. Atrial Septum: Normal interatrial septum. Mitral Valve: Moderate mitral annular calcification. Mild mitral valveregurgitation. Aortic Valve: Normal trileaflet aortic valve. No aortic regurgitation. Themean transaortic gradient is 3 mmHg. The aortic valve area by the continuityequation (using VTI) is 3.92 cm2. Aortic valve dimensionless index is 0.88. Tricuspid Valve: Normal tricuspid valve structure. No tricuspidregurgitation. Pulmonic Valve: Normal pulmonic valve structure. Mild pulmonicregurgitation. Pericardium: Normal pericardium without pericardial effusion. Nopericardial effusion. There is an anterior echo free space consistent with epicardial fat pad. Aorta: Moderate aortic root dilation at sinuses of Valsalva. Normal aorticroot size when indexed. The ascending aorta is normal in size when indexed. IVC: IVC is normal in size. PASP: Unable to determine PASP due to inadequate TR jet, but the mean PApressure appears normal based on the PV acceleration time. MEASUREMENTS: 2D/MM Value Range DopplerValue Range LVIDd 2D 4.59 cm [ 4.20 - 5.80 ] AV Peak Vel1.1 m/s [ 1.0 - 1.7 ] LVIDs 2D 3.39 cm [ 2.50 - 4.00 ] AV Peak PG4.84 mmHg IVSd 2D 1.70 cm [ 0.60 - 1.00 ] AV Mean PG3 mmHg LVPWd 2D 1.41 cm [ 0.60 - 1.00 ] AV VTI25.2 cm LV Thickness Ratio 1.2 LVOT Peak Vel1.1 m/s [ 0.7 - 1.1 ] LV FS 2D 26.16 % [ 25.00 - 43.00 ] LVOT Peak PG4.84 mmHg LV Mass 2D 303.07 g LVOT Mean PG2 mmHg LV Mass Index 2D 114.37 g/m2 LVOT VTI22.2 cm RWT 0.61 LVOT Diam2.38 cm EDV Mod BP 89.49 ml [ 62.00 - 150.00 ] JOSAFAT VTI3.92 cm2 LV EDV Index 33.77 ml/m2 LVOT/AV VTI0.88 - Dimensionless index (DVI) ESV Mod BP 43.53 ml [ 21.00 - 61.00 ] MV E Peak Vel0.8 m/s [ 0.6 - 1.3 ] EF Mod BP 51 % [ 52 - 72 ] MV A Peak Vel1.2 m/s [ 1.0 - 1.2 ] LA Length 4C 6.96 cm MV E/A0.7 ratio [ 0.8 - 1.5 ] LA Length 2C 7.67 cm MV Decel Rwoe789.49 msec [ 104.00 - 258.00 ] LA Volume BP 91.18 ml Med E` Vel6.5 cm/sec [ 8.0 - 25.0 ] LA Volume Index 34.41 ml/m2 [ 16.00 - 34.00 ] Lat E` Vel6.7 cm/sec [ 10.0 - 25.0 ] RV Base Dimen 2D 4.9 cm [ 2.5 - 4.2 ] Average E/E`12.12 TAPSE 1.90 cm [ 1.71 - 5.00 ] RV S`11.78 cm/sec RA Volume 88.03 ml PV Peak Vel0.6 m/s [ 0.4 - 0.8 ] RA Volume Index 33.22 ml/m2 PV Peak PG1.44 mmHg AoR Diam 2D 4.63 cm [ 3.10 - 3.70 ] PI ED Icb004.63 m/sec Ao Root Index 1.75 cm/m2 [ 1.00 - 2.00 ] Asc Ao Diam 2D3.99 cm Asc Ao Index1.51 cm/m2 Electronically Signed By: Morales Patterson MD, PHD 02/18/2025 11:11:14 AM CDT us Delilah Adams MD PhD CV ECHO PROCEDURES Fin al Result * Norovirus PCR Stool (02/18/2025 5:04 AM CDT) [facility] Norovirus GI RNA Not Detected Not Detected [facility] Norovirus GII RNA Not Detected Not Detected [facility] Comment: Interpretive data: Testing performed at the [facility] using the [employer] Xpert Norovirus Assay. This assay uses nucleic acid amplification to detect RNA from norovirus. This test is cleared by the [place] Food and Drug Administration for unformed stool specimens. The performance characteristics for unformed stool specimens have been verified by the performing laboratory. The performance characteristics of rectal swab specimens have also been validated and verified by the performing laboratory. Positive Xpert Norovirus results do not rule out other causes of infectious diarrhea. Assay interference may be observed in the presence of Barium sulfate and Benzalkonium chloride. Mutations or polymorphisms in primer or probe binding regions may affect detection of new or unknown norovirus variants resulting in a false negative result. Results from the Xpert Norovirus Assay should be interpreted in conjunction with other laboratory and clinical data available to the clinician. Current interpretive data was last revised on 2024. Stool 02/18/2025 5:04 AM CDT 02/18/2025 5:20 AM CDT us Delilah Adams MD PhD LAB MICROBIOLOGY - GEN ERAL ORDERABLES Final Result [facility] Department [place] [address] [facility] * (ABNORMAL) eGFR (02/18/2025 12:23 AM CDT) [facility] eGFR 31(L) >=60 mL/min/1. 73 m2 Comment: Interpretive Data Reference Interval Normal >/= 90 mL/min/1.73m2 Mildly decreased* 60 - 89 mL/min/1.73m2 Mildly to moderately decreased 45 - 59 mL/min/1.73m2 Moderately to severely decreased 30 - 44 mL/min/1.73m2 Severely decreased 15 - 29 mL/min/1.73m2 Kidney Failure < 15 mL/min/1.73m2 *Relative to young adult level Estimated glomerular filtration rate is determined by the 2020 CKD-EPI equation recommended by the National Kidney Foundation (A Unifying Approach to GFR Estimation: Recommendations of the NKF-ASK Task Force on Reassessing the Inclusion of Race in Diagnosing Kidney Disease, JASN 2020). The CKD-EPI equation should not be used for patients with unstable renal function and has not been validated in children and those over 70. Current interpretive data was last reviewed 2021. Blood 02/18/2025 12:2 3 AM CDT 02/18/2025 1:01 AM CDT us Delilah Adams MD PhD LAB BLOOD ORDERABLES F inal Result [facility] Department [place] [address] * (ABNORMAL) aPTT (02/18/2025 12:23 AM CDT) aPTT 70(H) 28 - 38 sec Comment: Interpretive Data Heparin therapeutic range: 66.0 - 100.0 seconds. Range based on correlation with therapeutic heparin activity range of 0.3 - 0.7 Units/mL. Current interpretive data was last revised on 2023. Blood 02/18/2025 12:2 3 AM CDT 02/18/2025 1:09 AM CDT Narrative [facility] - 02/18/2025 1:41 AM CDT STAT PTT timing: - Draw 6 hours after heparin infusion initiation - Draw 6 hours after every dose change until 2 consecutive PTTs are therapeutic - Once 2 consecutive PTTs are therapeutic, obtain with daily labs until infusion is discontinued - - Restart every 6 hour lab draws and follow instructions accordingly if PTT is outside of therapeutic range Do not draw lab from IV line that is actively infusing heparin. Use the opposite arm. If arm with actively infusing heparin must be used, pause the infusion for at least 2 minutes, and draw specimen below the IV site. For patients with a central venous catheter (CVC), lab must be drawn peripherally (not from CVC). Delilah Adams MD PhD LAB BLOOD ORDERABLES F inal Result Performing Organization Address [facility] Co de Phone Number [facility] Department [place] [address] * (ABNORMAL) CBC without differential (02/18/2025 12:23 AM CDT) [facility] WBC 9.6 3.8 - 9.9 K/cumm Hgb 7.9(L) 13.0 - 17.5 g/dL [facility] Hct 27.2(L) 38.9 - 50.3 % [facility] Plt 317 150 - 400 K/cumm [facility] MPV 9.5 9.1 - 12.3 fL [facility] RBC 3.08(L) 4.30 - 5.80 M/cumm [facility] MCV 88.3 81.3 - 96.4 fL [facility] MCH 25.6(L) 27.1 - 33.3 pg [facility] MCHC 29.0(L) 32.3 - 35.7 g/dL [facility] RDW CV 14.6 11.1 - 14.9 % [facility] RDW SD 46.5 35.7 - 48.1 fL [facility] NRBC abs 0.00 0.00 - 0.01 K/cumm [facility] Blood 02/18/2025 12:2 3 AM CDT 02/18/2025 1:01 AM CDT Delilah Adams MD PhD LAB BLOOD ORDERABLES F inal Result Performing Organization Address [facility] Co de Phone Number [facility] Department [place] [address] * Phosphorus (02/18/2025 12:23 AM CDT) [facility] Phosphorus, pl 3.1 2.3 - 4.5 mg/dL Blood 02/18/2025 12:2 3 AM CDT 02/18/2025 1:01 AM CDT Delilah Adams MD PhD LAB BLOOD ORDERABLES F inal Result Performing Organization Address City/[facility]/ZIP Co de Phone Number [facility] Department [place] [address] * (ABNORMAL) Magnesium (02/18/2025 12:23 AM CDT) [facility] Magnesium 2.6(H) 1.4 - 2.5 mg/dL Blood 02/18/2025 12:2 3 AM CDT 02/18/2025 1:01 AM CDT Result [facility] Delilah Adams MD PhD LAB BLOOD ORDERABLES F inal Result Performing Organization Address City/[facility] Co de Phone Number [facility] [employer] [place] [address] * (ABNORMAL) Basic metabolic panel (02/18/2025 12:23 AM CDT) [facility] Sodium 142 135 - 145 mmol/L Potassium, pl 4.1 3.3 - 4.9 mmol/L [facility] Chloride 109 97 - 110 mmol/L [facility] CO2 20(L) 22 - 32 mmol/L [facility] Anion gap 13 2 - 15 mmol/L [facility] BUN 46(H) 6 - 25 mg/dL [facility] Creatinine 2.18(H) 0.80 - 1.30 mg/dL [facility] Glucose 109 70 - 199 mg/dL [facility] Comment: Interpretive Data Fasting glucose >/= 126 mg/dl is diagnostic for diabetes. Fasting is defined as no caloric intake for at least 8 hours. Fasting glucose between 100 mg/dl to 125 mg/dl is diagnostic of prediabetes. In a patient with classic symptoms of hyperglycemia or hyperglycemic crisis, a random glucose >/= 200 mg/dl is diagnostic for diabetes. In the absence of unequivocal hyperglycemia, results should be confirmed by repeat testing. The classification and Diagnosis of Diabetes Diabetes Care 202; 46: S19-S40. Current interpretive data was last revised 2022. Calcium 8.7 8.5 - 10.3 mg/dL [facility] Blood 02/18/2025 12:2 3 AM CDT 02/18/2025 1:01 AM CDT Delilah Adams MD PhD LAB BLOOD ORDERABLES F inal Result [facility] [employer] [place] [address] * POCT glucose (02/17/2025 11:01 PM CDT) Glucose, POC 128 70 - 199 mg/dL Blood 02/17/2025 11:0 1 PM CDT 02/17/2025 11:01 PM CDT Delilah Adams MD PhD LAB POCT ORDERABLES - DEVICE Final Result Performing Organization Address City/[facility] Co de Phone Number [facility] Department of [employer] [place] [address] * POCT glucose (02/17/2025 5:45 PM CDT) Glucose, POC 123 70 - 199 mg/dL Blood 02/17/2025 5:45 PM CDT 02/17/2025 5:45 PM CDT Delilah Adams MD PhD LAB POCT ORDERABLES - DEVICE Final Result Performing Organization Address City/[facility]/ZIP Co de Phone Number [facility] Department [place] [address] * C. difficile testing Stool (02/17/2025 4:27 PM CDT) Pathologist [facility] Result Negative Negative Toxin Result Negative Negative [facility] C. diff result Negative, free toxin Negative, free toxin [facility] C. diff interp Negative for toxigenic Clostridioides (Clostridium) difficile. Analysis was performed using a glutamate dehydrogenase antigen detection assay combined with a C. difficile toxin detection assay. [facility] Stool 02/17/2025 4:27 PM CDT 02/17/2025 7:21 PM CDT Delilah Adams MD PhD LAB MICROBIOLOGY - GEN ERAL ORDERABLES Final Result [facility] Department [place] [address] * (ABNORMAL) Infection Prevention VRE Culture Stool (02/17/2025 4:26 PM CDT) [facility] Report Final Report: Enterococcus species, vancomycin resistant (.) Organism ENTEROCOCCUS SPECIES, VANCOMYCIN RESISTANT [facility] Stool 02/17/2025 4:26 PM CDT 02/17/2025 10:52 PM CDT Narrative [facility] - 02/18/2025 9:56 PM CDT Surveillance culture for Infection Prevention purposes only; results indicate colonization, not infection requiring treatment. Testing performed by [facility] ([phone]). us Delilah Adams MD PhD LAB MICROBIOLOGY - GEN ERAL ORDERABLES Final Result [facility] Department [place] [address] * POCT glucose (02/17/2025 2:06 PM CDT) [facility] Glucose, POC 114 70 - 199 mg/dL Blood 02/17/2025 2:06 PM CDT 02/17/2025 2:06 PM CDT us Delilah Adams MD PhD LAB POCT ORDERABLES - DEVICE Final Result [facility] [place] [address] * POCT glucose (02/17/2025 8:33 AM CDT) Glucose, POC 120 70 - 199 mg/dL Blood 02/17/2025 8:33 AM CDT 02/17/2025 8:33 AM CDT us Delilah Adams MD PhD LAB POCT ORDERABLES - DEVICE Final Result Performing Organization Address [facility] Co de Phone Number [facility] [place] [address] * (ABNORMAL) eGFR (02/17/2025 6:41 AM CDT) eGFR 32(L) >=60 mL/min/1. 73 m2 Comment: Interpretive Data Reference Interval Normal >/= 90 mL/min/1.73m2 Mildly decreased* 60 - 89 mL/min/1.73m2 Mildly to moderately decreased 45 - 59 mL/min/1.73m2 Moderately to severely decreased 30 - 44 mL/min/1.73m2 Severely decreased 15 - 29 mL/min/1.73m2 Kidney Failure < 15 mL/min/1.73m2 *Relative to young adult level Estimated glomerular filtration rate is determined by the 2020 CKD-EPI equation recommended by the National Kidney Foundation (A Unifying Approach to GFR Estimation: Recommendations of the NKF-ASK Task Force on Reassessing the Inclusion of Race in Diagnosing Kidney Disease, JASN 2020). The CKD-EPI equation should not be used for patients with unstable renal function and has not been validated in children and those over 70. Current interpretive data was last reviewed 2021. Blood 02/17/2025 6:41 AM CDT 02/17/2025 6:50 AM CDT Delilah Adams MD PhD LAB BLOOD ORDERABLES F inal Result Performing Organization Address [facility] Co de Phone Number [facility] Department [place] [address] * (ABNORMAL) aPTT (02/17/2025 6:41 AM CDT) [facility] aPTT 83(H) 28 - 38 sec Comment: Interpretive Data Heparin therapeutic range: 66.0 - 100.0 seconds. Range based on correlation with therapeutic heparin activity range of 0.3 - 0.7 Units/mL. Current interpretive data was last revised on 2023. Blood 02/17/2025 6:41 AM CDT 02/17/2025 6:55 AM CDT Narrative [facility] - 02/17/2025 7:24 AM CDT STAT PTT timing: - Draw 6 hours after heparin infusion initiation - Draw 6 hours after every dose change until 2 consecutive PTTs are therapeutic - Once 2 consecutive PTTs are therapeutic, obtain with daily labs until infusion is discontinued - - Restart every 6 hour lab draws and follow instructions accordingly if PTT is outside of therapeutic range Do not draw lab from IV line that is actively infusing heparin. Use the opposite arm. If arm with actively infusing heparin must be used, pause the infusion for at least 2 minutes, and draw specimen below the IV site. For patients with a central venous catheter (CVC), lab must be drawn peripherally (not from CVC). Delilah Adams MD PhD LAB BLOOD ORDERABLES F inal Result Performing Organization Address [facility]/ZIP Co de Phone Number [facility] Department [place] [address] * (ABNORMAL) CBC without differential (02/17/2025 6:41 AM CDT) [facility] WBC 8.4 3.8 - 9.9 K/cumm Hgb 7.2(L) 13.0 - 17.5 g/dL [facility] Hct 23.8(L) 38.9 - 50.3 % [facility] Plt 305 150 - 400 K/cumm [facility] MPV 9.6 9.1 - 12.3 fL [facility] RBC 2.80(L) 4.30 - 5.80 M/cumm [facility] MCV 85.0 81.3 - 96.4 fL [facility] MCH 25.7(L) 27.1 - 33.3 pg [facility] MCHC 30.3(L) 32.3 - 35.7 g/dL [facility] RDW CV 14.6 11.1 - 14.9 % [facility] RDW SD 45.1 35.7 - 48.1 fL [facility] NRBC abs 0.00 0.00 - 0.01 K/cumm [facility] Blood 02/17/2025 6:41 AM CDT 02/17/2025 6:50 AM CDT Delilah Adams MD PhD LAB BLOOD ORDERABLES F inal Result [facility] Department [place] [address] * (ABNORMAL) Basic metabolic panel (02/17/2025 6:41 AM CDT) Sodium 142 135 - 145 mmol/L Potassium, pl 4.1 3.3 - 4.9 mmol/L [facility] Chloride 104 97 - 110 mmol/L [facility] CO2 26 22 - 32 mmol/L [facility] Anion gap 12 2 - 15 mmol/L [facility] BUN 48(H) 6 - 25 mg/dL [facility] Creatinine 2.15(H) 0.80 - 1.30 mg/dL [facility] Glucose 119 70 - 199 mg/dL [facility] Comment: Interpretive Data Fasting glucose >/= 126 mg/dl is diagnostic for diabetes. Fasting is defined as no caloric intake for at least 8 hours. Fasting glucose between 100 mg/dl to 125 mg/dl is diagnostic of prediabetes. In a patient with classic symptoms of hyperglycemia or hyperglycemic crisis, a random glucose >/= 200 mg/dl is diagnostic for diabetes. In the absence of unequivocal hyperglycemia, results should be confirmed by repeat testing. The classification and Diagnosis of Diabetes Diabetes Care 2021; 46: S19-S40. Current interpretive data was last revised 2022. Calcium 8.5 8.5 - 10.3 mg/dL [facility] Blood 02/17/2025 6:41 AM CDT 02/17/2025 6:50 AM CDT Delilah Adams MD PhD LAB BLOOD ORDERABLES F inal Result [facility] Department [place] [address] * (ABNORMAL) aPTT (02/17/2025 1:07 AM CDT) aPTT 68(H) 28 - 38 sec Comment: Interpretive Data Heparin therapeutic range: 66.0 - 100.0 seconds. Range based on correlation with therapeutic heparin activity range of 0.3 - 0.7 Units/mL. Current interpretive data was last revised on 2023. Blood 02/17/2025 1:07 AM CDT 02/17/2025 1:17 AM CDT Narrative [facility] - 02/17/2025 1:40 AM CDT STAT PTT timing: - Draw 6 hours after heparin infusion initiation - Draw 6 hours after every dose change until 2 consecutive PTTs are therapeutic - Once 2 consecutive PTTs are therapeutic, obtain with daily labs until infusion is discontinued - - Restart every 6 hour lab draws and follow instructions accordingly if PTT is outside of therapeutic range Do not draw lab from IV line that is actively infusing heparin. Use the opposite arm. If arm with actively infusing heparin must be used, pause the infusion for at least 2 minutes, and draw specimen below the IV site. For patients with a central venous catheter (CVC), lab must be drawn peripherally (not from CVC). Delilah Adams MD PhD LAB BLOOD ORDERABLES F inal Result [facility] Department [place] [address] * (ABNORMAL) Lipid panel (02/16/2025 12:16 AM CDT) Cholesterol 108 30 - 199 mg/dL Comment: Interpretive Data Ages < or = 19 years Acceptable: <170 mg/dL Borderline high: 170-199 mg/dL High: >or= 200 mg/dL Ages > or = 20 years Desirable: <200 mg/dL Borderline high: 200-239 mg/dL High: >or= 240 mg/dL Literature References: 1. Expert Panel on Integrated Guidelines for Cardiovascular Health and Risk Reduction in Children and Adolescents. Pediatrics 2011;128:S213 2. NCEP Expert Panel. Circulation 2004;110:227 Current Interpretive Data was last revised on 2018. Triglycerides 146 <=149 mg/dL [facility] Comment: Hemolyzed; result may be falsely elevated Interpretive Data Ages < or = 9 years Acceptable: <75 mg/dL Borderline high: 75-99 mg/dL High: >or= 100 mg/dL Ages 10 to 20 years Acceptable: <90 mg/dL Borderline high: 90-129 mg/dL High: >or= 130 mg/dL Ages > or = 20 years Desirable: <150 mg/dL Borderline high: 150-199 mg/dL High: 200-499 mg/dL Very high: >or= 499 mg/dL Literature References: 1. Expert Panel on Integrated Guidelines for Cardiovascular Health and Risk Reduction in Children and Adolescents. Pediatrics 2011;128:S213 2. NCEP Expert Panel. Circulation 2004;110:227 Current Interpretive Data was last revised on 2018. HDL 23(L) >=40 mg/dL [facility] Comment: Interpretive Data Ages < or = 19 years Acceptable: >45 mg/dL Borderline low: 40-45 mg/dL Low: <40 mg/dL Ages > or = 20 years Desirable: >or= 60 mg/dL Low: <40 mg/dL Literature References: 1. Expert Panel on Integrated Guidelines for Cardiovascular Health and Risk Reduction in Children and Adolescents. Pediatrics 2011;128:S213 2. NCEP Expert Panel. Circulation 2004;110:227 Current Interpretive Data was last revised on 2018. LDL, calculated 59 <=129 mg/dL [facility] Comment: Interpretive Data Ages < or = 19 years Acceptable: <110 mg/dL Borderline high: 110-129 mg/dL High: >or= 130 mg/dL Ages > or = 20 years Optimal: <100 mg/dL Near optimal: 100-129 mg/dL Borderline high: 130-159 mg/dL High: >160 mg/dL Calculated using the David LDL-C estimating equation. This equation was implemented on 2024. Prior to this date LDL-C was estimated using the Friedewald equation. Literature References: 1. Expert Panel on Integrated Guidelines for Cardiovascular Health and Risk Reduction in Children and Adolescents. Pediatrics 2011;128:S213 2. NCEP Expert Panel. Circulation 2004;110:227 3. David Escoto et al. KATHI Cardiol. 2019March 21;5(5):540-548. doi: 10.1001/[email or web address].2020.0013 Current Interpretive Data was last revised on 2024. Non-HDL Cholesterol 85 mg/dL [facility] Comment: Interpretive Data Ages < or = 19 years Acceptable: <120 mg/dL Borderline high: 120-144 mg/dL High: >145 mg/dL Ages > or = 20 years When triglycerides are >200 mg/dL, Non-HDL cholesterol is a secondary target of therapy with treatment goals that are 30 mg/dL greater than the LDL cholesterol target. Literature References: 1. Expert Panel on Integrated Guidelines for Cardiovascular Health and Risk Reduction in Children and Adolescents. Pediatrics 2011;128:S213 2. NCEP Expert Panel. Circulation 2004;110:227 Current Interpretive Data was last revised on 2018. 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 02/17/2025 Insurance MEDICARE ADVANTAGE [facility] MEDICARE Address: [address] [address] [place] [address] [employer] MEDICARE ADVANTAGE [facility] MEDICARE Address: [address] [address] [place] [id number] Advance Directives For more information, please contact: [phone] Documents on File Type Date Recorded Patient Agricultural Research Technician Expl anation ADVANCE DIRECTIVE 03/06/2025 11:59 AM MARLA R OF SIDE PIECE COVERER-MEDICAL ADVANCE DIRECTIVE 02/18/2025 8:38 AM POWER OF SIDE PIECE COVERER-MEDICAL * Full Code (Latest Code Status on File) Date Activated Date Inactivated Comments 05/04/2025 2:55 PM 05/13/2025 6:58 PM * Full Code Date Activated Date Inactivated Comments 02/15/2025 8:29 PM 03/02/2025 6:51 PM Healthcare Agents on File Name Relationship Healthcare Agent Relationshi p Communication Landy Kat Spouse Health Care Agent Care Teams Director Biomedical Engineering Relationship Specialty Start Date End Date Bryan Hough MD PCP - General 09/22/21 Delilah Adams MD PhD [id number] [place] [address] Consulting Physician Vascular Surgery 03/01/25
--- OUTSIDE RECORDS SUMMARY | 2025-05-20 11:29 | XMS_ITS | Continuity of Care Document ---
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 [address] , [address], [place], [address], [place]. tel:[phone] Family History Family Member Type Diagnosis Age At Onset No Information Payers Payer name Insurance type Covered democrat ID Authorroccoa hernan(s) [facility] Commercial CI [id number] Social History Type Description Quantity Date Captured [...]
--- OUTSIDE RECORDS SUMMARY | 2025-05-20 11:29 | XMS_ITS | Clinical Summary ---
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 15 mL 05/13/20 25 Active senna-docusat e (PERICOLACE) 8.6-50 [...] metolazone on Tuesday, 03/04. Tuesday, Tuesday, Tuesday03/04/20 025 Discontinued(S top Taking at Discharge) insulin [...] Summary for Sliding Scale Insulin Instructions. 05/13/20 025 Discontinued(S top Taking at Discharge) Active [...] (03/01/2025 7:46 AM CDT): K 5.4 overnight 4/9. Now 4.8 - Resumed bumex and metolazone [...] Plan (02/27/2025 7:45 AM CDT): Presents From [facility] with multiple wounds to feet and blackened [...] Gangrene associated with diabetes mellitus 02/15/2025 02/25/2025 Encounters Date Type Department Care Team Description 05/08/2025 12:13 PM CDT Anesthesia Event [facility] Operating Room 1 [place] [address] Masood Amin MD Lentz, William Thomas, NP 05/08/2025 11:11 AM CDT - 05/08/2025 1:[address] [facility] Operating Room 1 [place] [address] Delilah Adams MD PhD DEBRIDEMENT - FOOT 05/06/2025 5:45 PM CDT Anesthesia Event [facility] Operating Room 1 [place] [address] Kosta Lott MD Jablonski, Melody A., NP 05/06/2025 5:27 PM CDT - 05/06/2025 9:[address] [facility] Operating Room 1 [place] [address] Delilah Adams MD PhD Angiogram CO2 05/04/2025 2:31 PM CDT - 05/13/2025 2:58 PM CDT Hospital Encounter [address] [address] Delilah Adams MD PhD Peripheral vascular disease (Primary Dx); Critical limb ischemia of both lower extremities (HCC); Gangrene associated with diabetes mellitus (HCC) Discharge Disposition: Discharge to SNF 05/04/[address] [facility] Bed Planning 1 [place] [address] Ofe Graham 05/03/2025 Orders Only [facility] Surgery [address] [facility] Floor 1 [place] [address] Delilah Adams MD PhD Encounter for surgical aftercare following surgery on the circulatory system (Primary Dx) 05/01/2025 9:30 AM CDT Office Visit [facility] Surgery [facility] 8th [place] [address] Delilah Adams MD PhD Gangrene associated with diabetes mellitus (HCC); Chronic renal disease, stage IV (HCC) 05/01/2025 8:45 AM CDT Ancillary Procedure [facility] Vascular Lab at the [address] 8th [place] [address] Encounter for surgical aftercare following surgery on the circulatory system; Peripheral vascular disease 04/30/2025 Telephone [facility] Surgery [address] [facility] Floor 1 [place] [address] Andreas Hansen CMA 04/19/2025 Telephone [facility] Surgery [address] [facility] Floor 1 [place] [address] Katy Ramirez Suture / Staple Removal 04/17/2025 Orders Only [facility] Cardiology [address] [place] [address] Oliver Sanchez MD 03/23/2025 1:17 PM CDT - 03/23/2025 11:59 PM CDT Hospital Encounter [facility] Emergency, Room R Discharge Disposition: Discharge to home or self care 03/22/2025 Telephone [facility] Home Care Services [address] [facility] [address] [place] [address] Unknown, Notinfile 03/11/2025 Telephone [facility] Surgery [address] [facility] Floor 1 [place] [address] Macario Ramirezfany 03/11/2025 Telephone [facility] Surgery [address] [facility] Floor 1 [place] [address] Katy Ramirez Appointment 03/02/2025 11:10 AM CDT - 03/02/2025 11:59 PM CDT Hospital Encounter [facility] [address] [place] [address] Discharge Disposition: Discharge to home or self care 02/26/2025 7:30 AM CDT - 02/26/2025 11:[address] [facility] Operating Room 1 [place] [address] Delilah Adams MD PhD Angiogram-CO2 02/26/2025 7:27 AM CDT Anesthesia Event [facility] Operating Room 1 [place] [address] Sylvie Vazquez MD PhD Paolo Latif NP 02/26/2025 Orders Only [facility] Vascular Surgery [address] [facility] [address] [place] [address] Delilah Adams MD PhD Encounter for surgical aftercare following surgery on the circulatory system (Primary Dx); Peripheral vascular disease 02/18/2025 4:00 PM CDT Anesthesia Event [facility] Operating Room 1 [place] [address] Ollie Syed MD Mallette, Allison Anne, NP 02/15/2025 6:18 PM CDT - 03/02/2025 2:46 PM CDT Hospital Encounter [address] [address] Delilah Adams MD PhD Gangrene associated with diabetes mellitus (HCC) (Primary Dx) Discharge Disposition: Discharge to SNF from Last 3 Months Immunizations Immunization Administration Dates Next Due Influenza, Trivalent, High D ose, Split, Preservative Free, Intramuscular 08/21/2024 Surgical History Surgery Date Site/Laterality Comments CARDIAC CATHETERIZATION 02/26/2025 Foot/Left Procedure: AMPUTATION TOE; Surgeon: Delilah Adams MD PhD; Location: [facility] OR POD 3; Service: Vascular; Laterality: Left; 3rd and 4th Family History Medical History Relation Name Comments Anesthesia problems Neg Hx Social History Tobacco Use Types Packs/Day Years Used Date Smoking Tobacco: Former Cigarettes Smokeless Tobacco: Never Tobacco Cessation:Counseling Given: Not Answered [facility] Utilities Answer Date Recorded In the past 12 months has e [employer], gas, oil, or water Provender threatened to shut off services in your [...] week 05/06/2025 How often do you attend [facility] or yarsanism services? Never 05/06/2025 Do you belong to any clubs o r organizations such as jehovah's witness groups, unions, fraternal or athletic groups, or [...] any time in the past 12 m [facility], were you homeless or living in a jail (including now)? No 05/06/2025 Personal Safety Answer Date Recorded Have you ever been in or are you currently in a harmful physical or emotional relationship or is someone making you feel afraid or unsafe? 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 Gender Identity Not on file Sexual Orientation Not on file Obstetrics History Last Filed Vital Signs Vital Sign Reading [...] 05/04/2025 2:52 PM CDT Plan of Treatment Health Maintenance Due Date Last Done Comments Albumin Creatinine Ratio, Urine 1955 Colon Cancer Screening-Colonoscopy 1955 Hepatitis C Screening 1955 Dilated Eye Exam 1953 Foot Exam 1953 Hepatitis B Screening 1971 Zoster Vaccine (1 of 2) 2003 Abdominal Aortic Aneurysm (A AA) Screen 2018 Well Visit 65+ 2018 DTaP/Tdap/Td Vaccine (1 - Tdap) 10/26/2022 Hemoglobin A1C 11/03/2025 05/04/2025, 02/16/2025 Lipid Panel 02/16/2026 02/16/2025 Depression Screening 05/01/2026 05/01/2025, 02/16/20 25 eGFR 05/12/2026 05/12/2025, 04/22, 05/10/2025, Additional history exists Fall Risk Assessment 05/13/2026 05/13/2025 Influenza Vaccine Completed 01/04/2025, , 08/21/2024, Additional history exists Pneumococcal vaccine 65+ Completed 01/04/2025 Procedures Procedure Name Priority Date/Time Associated Diagnosis [...] PM CDT Peripheral vascular disease Case Notes [id number]: Sent email to Dr. Rushing/Angie/Sherry about which [...] DEVICE Routine 05/06/2025 6 :29 PM CDT SD AN PROCEDURE PLACEHOLDER Routine 05/06/2025 6:18 PM CDT SD AN ELECTIVE ENDOTRACHEAL AIRWAY Routine 05/06/2025 6:18 PM CDT SD AN PROCEDURE PLACEHOLDER Routine 05/06/2025 6:17 PM [...] 2 AM CDT 05/13/2025 11:42 AM CDT us Delilah Adams MD PhD LAB POCT ORDERABLES - DEVICE Final Result [facility] Department [place] [address] * POCT glucose (05/13/2025 7:48 AM CDT) Glucose, POC 139 70 - 199 mg/dL Blood 05/13/2025 7:48 AM CDT 05/13/2025 7:48 AM CDT us Delilah Adams MD PhD LAB POCT ORDERABLES - DEVICE Final Result Performing Organization Address City/[facility]/ZIP Co de Phone Number [facility] [place] [address] * (ABNORMAL) eGFR (05/12/2025 11:23 PM CDT) eGFR 24(L) >=60 mL/min/1. 73 m2 Comment: [...] ORDERABLES F inal Result Performing Organization Address City/[facility]/ZIP Co de Phone Number [facility] [place] [address] * Differential, auto (05/12/2025 11:23 PM CDT) Neutrophil abs 4.74 1.50 - 6.50 K/cumm Imm gran abs 0.05 0.00 - 0.10 K/cumm [facility] Lymphocyte abs 1.27 0.80 - 3.30 K/cumm [facility] Monocyte abs 0.45 0.20 - 0.80 K/cumm [facility] Eosinophil abs 0.32 0.00 - 0.50 K/cumm [facility] Basophil abs 0.07 0.00 - 0.10 K/cumm [facility] Neutrophil pct 68.8 % [facility] Comment: Interpretive Data Percent cell count reference ranges are not reported, since discordance with absolute values may lead to misinterpretation of CBC data. Current Interpretive Data was last revised on 2018. Imm gran pct 0.7 % [facility] Comment: Interpretive Data Percent cell count reference ranges are not reported, since discordance with absolute values may lead to misinterpretation of CBC data. Current Interpretive Data was last revised on 2018. Lymphocyte pct 18.4 % [facility] Comment: Interpretive Data Percent cell count reference ranges are not reported, since discordance with absolute values may lead to misinterpretation of CBC data. Current Interpretive Data was last revised on 2018. Monocyte pct 6.5 % [facility] Comment: Interpretive Data Percent cell count reference ranges are not reported, since discordance with absolute values may lead to misinterpretation of CBC data. Current Interpretive Data was last revised on 2018. Eosinophil pct 4.6 % [facility] Comment: Interpretive Data Percent cell count reference ranges are not reported, since discordance with absolute values may lead to misinterpretation of CBC data. Current Interpretive Data was last revised on 2018. Basophil pct 1.0 % [facility] Comment: Interpretive Data Percent cell count reference ranges are not reported, since discordance with absolute values may lead to misinterpretation of CBC data. Current Interpretive Data was last revised on 2018. Blood 05/12/2025 11:2 3 PM CDT 05/13/2025 12:04 AM CDT us Delilah Adams MD PhD LAB BLOOD ORDERABLES F inal Result [facility] [place] [address] * (ABNORMAL) CBC with auto differential (05/12/2025 11:23 PM CDT) Pathologist [facility] WBC 6.90 3.80 - 9.90 K/cumm Hgb 8.6(L) 13.0 - 17.5 g/dL [facility] Hct 27.5(L) 38.9 - 50.3 % [facility] Plt 250 150 - 400 K/cumm [facility] MPV 9.3 9.1 - 12.3 fL [facility] RBC 3.07(L) 4.30 - 5.80 M/cumm [facility] MCV 89.6 81.3 - 96.4 fL [facility] MCH 28.0 27.1 - 33.3 pg [facility] MCHC 31.3(L) 32.3 - 35.7 g/dL [facility] RDW CV 16.4(H) 11.1 - 14.9 % [facility] RDW SD 53.2(H) 35.7 - 48.1 fL [facility] NRBC abs 0.00 0.00 - 0.01 K/cumm [facility] Blood 05/12/2025 11:2 3 PM CDT 05/13/2025 12:04 AM CDT Delilah Adams MD PhD LAB BLOOD ORDERABLES F inal Result [facility] [place] [address] * Phosphorus (05/12/2025 11:23 PM CDT) Pathologist [facility] Phosphorus, pl 3.4 2.3 - 4.5 mg/dL Blood 05/12/2025 11:2 3 PM CDT 05/13/2025 12:03 AM CDT Delilah Adams MD PhD LAB BLOOD ORDERABLES F inal Result [facility] Department [place] [address] * (ABNORMAL) Basic metabolic panel (05/12/2025 11:23 PM CDT) Sodium 141 135 - 145 mmol/L Potassium, pl 4.4 3.3 - 4.9 mmol/L [facility] Chloride 111(H) 97 - 110 mmol/L [facility] CO2 22 22 - 32 mmol/L [facility] Anion gap 8 2 - 15 mmol/L [facility] BUN 32(H) 6 - 25 mg/dL [facility] Creatinine 2.70(H) 0.80 - 1.30 mg/dL [facility] Glucose 135 70 - 199 mg/dL [facility] Comment: Interpretive Data Fasting glucose >/= 126 [...] 2022. Calcium 8.0(L) 8.5 - 10.3 mg/dL [facility] Blood 05/12/2025 11:2 3 PM CDT 05/13/2025 12:03 AM CDT Delilah Adams MD PhD LAB BLOOD ORDERABLES F inal Result [facility] Department [place] [address] * POCT glucose (05/12/2025 7:19 PM CDT) Glucose, POC 129 70 - 199 mg/dL Blood 05/12/2025 7:19 PM CDT 05/12/2025 7:19 PM CDT Delilah Adams MD PhD LAB POCT ORDERABLES - DEVICE Final Result Performing Organization Address [facility] de Phone Number [place] [address] * POCT glucose (05/12/2025 4:35 PM CDT) Glucose, POC 136 70 - 199 mg/dL Blood 05/12/2025 4:35 PM CDT 05/12/2025 4:35 PM CDT Delilah Adams MD PhD LAB POCT ORDERABLES - DEVICE Final Result Performing Organization Address [facility] de Phone Number [facility] [place] [address] * POCT glucose (05/12/2025 11:30 AM CDT) Glucose, POC 165 70 - 199 mg/dL Blood 05/12/2025 11:3 0 AM CDT 05/12/2025 11:30 AM CDT Delilah Adams MD PhD LAB POCT ORDERABLES - DEVICE Final Result Performing Organization Address [facility] de Phone Number [facility] [place] [address] * POCT glucose (05/12/2025 7:38 AM CDT) Glucose, POC 110 70 - 199 mg/dL Blood 05/12/2025 7:38 AM CDT 05/12/2025 7:38 AM CDT Delilah Adams MD PhD LAB POCT ORDERABLES - DEVICE Final Result Performing Organization Address [facility] Co de Phone Number [facility] [place] [address] * (ABNORMAL) eGFR (05/11/2025 9:22 PM CDT) Pathologist [facility] eGFR 28(L) >=60 mL/min/1. 73 m2 Comment: [...] ORDERABLES F inal Result Performing Organization Address City/[facility] Co de Phone Number [facility] [place] [address] * Differential, auto (05/11/2025 9:22 PM CDT) Neutrophil abs 4.60 1.50 - 6.50 K/cumm Imm gran abs 0.05 0.00 - 0.10 K/cumm [facility] Lymphocyte abs 1.57 0.80 - 3.30 K/cumm [facility] Monocyte abs 0.49 0.20 - 0.80 K/cumm [facility] Eosinophil abs 0.27 0.00 - 0.50 K/cumm [facility] Basophil abs 0.06 0.00 - 0.10 K/cumm [facility] Neutrophil pct 65.3 % [facility] Comment: Interpretive Data Percent cell count reference ranges are not reported, since discordance with absolute values may lead to misinterpretation of CBC data. Current Interpretive Data was last revised on 2018. Imm gran pct 0.7 % [facility] Comment: Interpretive Data Percent cell count reference ranges are not reported, since discordance with absolute values may lead to misinterpretation of CBC data. Current Interpretive Data was last revised on 2018. Lymphocyte pct 22.3 % [facility] Comment: Interpretive Data Percent cell count reference ranges are not reported, since discordance with absolute values may lead to misinterpretation of CBC data. Current Interpretive Data was last revised on 2018. Monocyte pct 7.0 % [facility] Comment: Interpretive Data Percent cell count reference ranges are not reported, since discordance with absolute values may lead to misinterpretation of CBC data. Current Interpretive Data was last revised on 2018. Eosinophil pct 3.8 % [facility] Comment: Interpretive Data Percent cell count reference ranges are not reported, since discordance with absolute values may lead to misinterpretation of CBC data. Current Interpretive Data was last revised on 2018. Basophil pct 0.9 % [facility] Comment: Interpretive Data Percent cell count reference ranges are not reported, since discordance with absolute values may lead to misinterpretation of CBC data. Current Interpretive Data was last revised on 2018. Blood 05/11/2025 9:22 PM CDT 05/11/2025 10:19 PM CDT us Delilah Adams MD PhD LAB BLOOD ORDERABLES F inal Result [facility] Department [place] [address] * (ABNORMAL) CBC with auto differential (05/11/2025 9:22 PM CDT) [facility] WBC 7.04 3.80 - 9.90 K/cumm Hgb 8.3(L) 13.0 - 17.5 g/dL [facility] Hct 26.4(L) 38.9 - 50.3 % [facility] Plt 243 150 - 400 K/cumm [facility] MPV 9.8 9.1 - 12.3 fL [facility] RBC 2.96(L) 4.30 - 5.80 M/cumm [facility] MCV 89.2 81.3 - 96.4 fL [facility] MCH 28.0 27.1 - 33.3 pg [facility] MCHC 31.4(L) 32.3 - 35.7 g/dL [facility] RDW CV 16.4(H) 11.1 - 14.9 % [facility] RDW SD 52.9(H) 35.7 - 48.1 fL [facility] NRBC abs 0.00 0.00 - 0.01 K/cumm [facility] Blood 05/11/2025 9:22 PM CDT 05/11/2025 10:19 PM CDT Delilah Adams MD PhD LAB BLOOD ORDERABLES F inal Result Performing Organization Address City/[facility]/ZIP Co de Phone Number [facility] [place] [address] * Phosphorus (05/11/2025 9:22 PM CDT) [facility] Phosphorus, pl 3.2 2.3 - 4.5 mg/dL Blood 05/11/2025 9:22 PM CDT 05/11/2025 10:01 PM CDT Delilah Adams MD PhD LAB BLOOD ORDERABLES F inal Result [facility] [place] [address] * (ABNORMAL) Basic metabolic panel (05/11/2025 9:22 PM CDT) Sodium 141 135 - 145 mmol/L Potassium, pl 4.2 3.3 - 4.9 mmol/L [facility] Chloride 112(H) 97 - 110 mmol/L [facility] CO2 22 22 - 32 mmol/L [facility] Anion gap 7 2 - 15 mmol/L [facility] BUN 35(H) 6 - 25 mg/dL [facility] Creatinine 2.37(H) 0.80 - 1.30 mg/dL [facility] Glucose 110 70 - 199 mg/dL [facility] Comment: Interpretive Data Fasting glucose >/= 126 [...] 2022. Calcium 8.5 8.5 - 10.3 mg/dL [facility] Blood 05/11/2025 9:22 PM CDT 05/11/2025 10:01 PM CDT us Delilah Adams MD PhD LAB BLOOD ORDERABLES F inal Result [facility] Department [place] [address] * POCT glucose (05/11/2025 7:23 PM CDT) Glucose, POC 136 70 - 199 mg/dL Blood 05/11/2025 7:23 PM CDT 05/11/2025 7:23 PM CDT us Delilah Adams MD PhD LAB POCT ORDERABLES - DEVICE Final Result Performing Organization Address City/[facility] Co de Phone Number [facility] [place] [address] * POCT glucose (05/11/2025 5:05 PM CDT) Glucose, POC 152 70 - 199 mg/dL Blood 05/11/2025 5:05 PM CDT 05/11/2025 5:05 PM CDT Delilah Adams MD PhD LAB POCT ORDERABLES - DEVICE Final Result Performing Organization Address [facility] Co de Phone Number [facility] [place] [address] * POCT glucose (05/11/2025 10:59 AM CDT) Glucose, POC 129 70 - 199 mg/dL Blood 05/11/2025 10:5 9 AM CDT 05/11/2025 10:59 AM CDT Delilah Adams MD PhD LAB POCT ORDERABLES - DEVICE Final Result Performing Organization Address City/[facility]/ZIP Co de Phone Number [facility] [place] [address] * POCT glucose (05/11/2025 7:26 AM CDT) Glucose, POC 109 70 - 199 mg/dL Blood 05/11/2025 7:26 AM CDT 05/11/2025 7:26 AM CDT Delilah Adams MD PhD LAB POCT ORDERABLES - DEVICE Final Result Performing Organization Address City/[facility]/ZIP Co de Phone Number [facility] [place] [address] * (ABNORMAL) eGFR (05/10/2025 8:51 PM CDT) Pathologist [facility] eGFR 26(L) >=60 mL/min/1. 73 m2 Comment: [...] 8:51 PM CDT 05/10/2025 9:48 PM CDT us Delilah Adams MD PhD LAB BLOOD ORDERABLES F inal Result [facility] [place] [address] * Differential, auto (05/10/2025 8:51 PM CDT) Pathologist [facility] Neutrophil abs 4.54 1.50 - 6.50 K/cumm Imm gran abs 0.07 0.00 - 0.10 K/cumm [facility] Lymphocyte abs 1.45 0.80 - 3.30 K/cumm [facility] Monocyte abs 0.59 0.20 - 0.80 K/cumm [facility] Eosinophil abs 0.22 0.00 - 0.50 K/cumm [facility] Basophil abs 0.08 0.00 - 0.10 K/cumm [facility] Neutrophil pct 65.2 % [facility] Comment: Interpretive Data Percent cell count reference ranges are not reported, since discordance with absolute values may lead to misinterpretation of CBC data. Current Interpretive Data was last revised on 2018. Imm gran pct 1.0 % [facility] Comment: Interpretive Data Percent cell count reference ranges are not reported, since discordance with absolute values may lead to misinterpretation of CBC data. Current Interpretive Data was last revised on 2018. Lymphocyte pct 20.9 % [facility] Comment: Interpretive Data Percent cell count reference ranges are not reported, since discordance with absolute values may lead to misinterpretation of CBC data. Current Interpretive Data was last revised on 2018. Monocyte pct 8.5 % [facility] Comment: Interpretive Data Percent cell count reference ranges are not reported, since discordance with absolute values may lead to misinterpretation of CBC data. Current Interpretive Data was last revised on 2018. Eosinophil pct 3.2 % [facility] Comment: Interpretive Data Percent cell count reference ranges are not reported, since discordance with absolute values may lead to misinterpretation of CBC data. Current Interpretive Data was last revised on 2018. Basophil pct 1.2 % [facility] Comment: Interpretive Data Percent cell count reference ranges are not reported, since discordance with absolute values may lead to misinterpretation of CBC data. Current Interpretive Data was last revised on 2018. Blood 05/10/2025 8:51 PM CDT 05/10/2025 9:48 PM CDT us Delilah Adams MD PhD LAB BLOOD ORDERABLES F inal Result [facility] [place] [address] * (ABNORMAL) CBC with auto differential (05/10/2025 8:51 PM CDT) WBC 6.95 3.80 - 9.90 K/cumm Hgb 7.9(L) 13.0 - 17.5 g/dL [facility] Hct 25.3(L) 38.9 - 50.3 % [facility] Plt 204 150 - 400 K/cumm [facility] MPV 9.6 9.1 - 12.3 fL [facility] RBC 2.83(L) 4.30 - 5.80 M/cumm [facility] MCV 89.4 81.3 - 96.4 fL [facility] MCH 27.9 27.1 - 33.3 pg [facility] MCHC 31.2(L) 32.3 - 35.7 g/dL [facility] RDW CV 16.2(H) 11.1 - 14.9 % [facility] RDW SD 51.7(H) 35.7 - 48.1 fL [facility] NRBC abs 0.00 0.00 - 0.01 K/cumm [facility] Blood 05/10/2025 8:51 PM CDT 05/10/2025 9:48 PM CDT Delilah Adams MD PhD LAB BLOOD ORDERABLES F inal Result Performing Organization Address City/[facility]/ZIP Co de Phone Number [facility] [place] [address] * Phosphorus (05/10/2025 8:51 PM CDT) Pathologist [facility] Phosphorus, pl 3.2 2.3 - 4.5 mg/dL Blood 05/10/2025 8:51 PM CDT 05/10/2025 9:48 PM CDT Delilah Adams MD PhD LAB BLOOD ORDERABLES F inal Result Performing Organization Address City/[facility] Co de Phone Number [facility] [place] [address] * Vancomycin level random (05/10/2025 8:51 PM CDT) Pathologist [facility] Vancomycin random 38.0 mcg/mL Comment: Interpretive Data No reference ranges have been established for random drug levels. Current Interpretive Data was last revised on 2021. Blood 05/10/2025 8:51 PM CDT 05/10/2025 9:48 PM CDT us Rox Choi NP LAB BLOOD ORDERABLES Final Result Performing Organization Address City/[facility]/ZIP Co de Phone Number [facility] [place] [address] * (ABNORMAL) Basic metabolic panel (05/10/2025 8:51 PM CDT) [facility] Sodium 141 135 - 145 mmol/L Potassium, pl 4.0 3.3 - 4.9 mmol/L [facility] Chloride 111(H) 97 - 110 mmol/L [facility] CO2 23 22 - 32 mmol/L [facility] Anion gap 7 2 - 15 mmol/L [facility] BUN 44(H) 6 - 25 mg/dL [facility] Creatinine 2.53(H) 0.80 - 1.30 mg/dL [facility] Glucose 114 70 - 199 mg/dL [facility] Comment: Interpretive Data Fasting glucose >/= 126 [...] 2022. Calcium 8.1(L) 8.5 - 10.3 mg/dL [facility] Blood 05/10/2025 8:51 PM CDT 05/10/2025 9:48 PM CDT Delilah Adams MD PhD LAB BLOOD ORDERABLES F inal Result Performing Organization Address City/[facility]/ZIP Co de Phone Number [facility] [place] [address] * POCT glucose (05/10/2025 7:42 PM CDT) Glucose, POC 133 70 - 199 mg/dL Blood 05/10/2025 7:42 PM CDT 05/10/2025 7:42 PM CDT Delilah Adams MD PhD LAB POCT ORDERABLES - DEVICE Final Result Performing Organization Address City/[facility]/[place] [address] * POCT glucose (05/10/2025 5:24 PM CDT) [facility] Glucose, POC 141 70 - 199 mg/dL Blood 05/10/2025 5:24 PM CDT 05/10/2025 5:24 PM CDT Delilah Adams MD PhD LAB POCT ORDERABLES - DEVICE Final Result Performing Organization Address City/[facility]/ZIP Co de Phone Number [facility] [place] [address] * POCT glucose (05/10/2025 7:38 AM CDT) [facility] Glucose, POC 122 70 - 199 mg/dL Blood 05/10/2025 7:38 AM CDT 05/10/2025 7:38 AM CDT Delilah Adams MD PhD LAB POCT ORDERABLES - DEVICE Final Result Performing Organization Address City/[facility]/[place] [address] * (ABNORMAL) eGFR (05/09/2025 10:31 PM CDT) [facility] eGFR 24(L) >=60 mL/min/1. 73 m2 Comment: [...] PhD LAB BLOOD ORDERABLES F inal Result [facility] Department [place] [address] * Differential, auto (05/09/2025 10:31 PM CDT) [facility] Neutrophil abs 4.81 1.50 - 6.50 K/cumm Imm gran abs 0.08 0.00 - 0.10 K/cumm [facility] Lymphocyte abs 1.39 0.80 - 3.30 K/cumm [facility] Monocyte abs 0.56 0.20 - 0.80 K/cumm [facility] Eosinophil abs 0.23 0.00 - 0.50 K/cumm [facility] Basophil abs 0.06 0.00 - 0.10 K/cumm [facility] Neutrophil pct 67.5 % [facility] Comment: Interpretive Data Percent cell count reference ranges are not reported, since discordance with absolute values may lead to misinterpretation of CBC data. Current Interpretive Data was last revised on 2018. Imm gran pct 1.1 % [facility] Comment: Interpretive Data Percent cell count reference ranges are not reported, since discordance with absolute values may lead to misinterpretation of CBC data. Current Interpretive Data was last revised on 2018. Lymphocyte pct 19.5 % [facility] Comment: Interpretive Data Percent cell count reference ranges are not reported, since discordance with absolute values may lead to misinterpretation of CBC data. Current Interpretive Data was last revised on 2018. Monocyte pct 7.9 % [facility] Comment: Interpretive Data Percent cell count reference ranges are not reported, since discordance with absolute values may lead to misinterpretation of CBC data. Current Interpretive Data was last revised on 2018. Eosinophil pct 3.2 % [facility] Comment: Interpretive Data Percent cell count reference ranges are not reported, since discordance with absolute values may lead to misinterpretation of CBC data. Current Interpretive Data was last revised on 2018. Basophil pct 0.8 % [facility] Comment: Interpretive Data Percent cell count reference ranges are not reported, since discordance with absolute values may lead to misinterpretation of CBC data. Current Interpretive Data was last revised on 2018. Blood 05/09/2025 10:3 1 PM CDT 05/09/2025 10:48 PM CDT Delilah Adams MD PhD LAB BLOOD ORDERABLES F inal Result [facility] Department [place] [address] * Critical Result Callback Chemistry (05/09/2025 10:31 PM CDT) Date Notified [id number] Time Notified [id number] MEERA DAMON TestName Maris HEATH Called/Read Back [place] Rigoyanci DAMON Credentials RN MEERA ADMON Called By eloy DAMON Blood 05/09/2025 10:3 1 PM CDT 05/09/2025 10:47 PM CDT [facility] LAB BLOOD ORDERABLES Final Re sult Performing Organization Address City/[facility]/ZIP Co de Phone Number [facility] [place] [address] * (ABNORMAL) Iron profile w/ IBC (05/09/2025 10:31 PM CDT) [facility] Iron 14(L) 50 - 150 mcg/dL TIBC 180(L) 250 - 400 mcg/dL [facility] Transferrin saturation 8(L) 20 - 50 % [facility] Blood 05/09/2025 10:3 1 PM CDT 05/09/2025 10:47 PM CDT [facility] LAB BLOOD ORDERABLES Final Re sult Performing Organization Address [facility] de Phone Number [facility] Department [place] [address] * (ABNORMAL) CBC with auto differential (05/09/2025 10:31 PM CDT) [facility] WBC 7.13 3.80 - 9.90 K/cumm Hgb 7.9(L) 13.0 - 17.5 g/dL [facility] Hct 25.0(L) 38.9 - 50.3 % [facility] Plt 198 150 - 400 K/cumm [facility] MPV 9.3 9.1 - 12.3 fL [facility] RBC 2.84(L) 4.30 - 5.80 M/cumm [facility] MCV 88.0 81.3 - 96.4 fL [facility] MCH 27.8 27.1 - 33.3 pg [facility] MCHC 31.6(L) 32.3 - 35.7 g/dL [facility] RDW CV 15.9(H) 11.1 - 14.9 % [facility] RDW SD 51.5(H) 35.7 - 48.1 fL [facility] NRBC abs 0.00 0.00 - 0.01 K/cumm [facility] Blood 05/09/2025 10:3 1 PM CDT 05/09/2025 10:48 PM CDT Delilah Adams MD PhD LAB BLOOD ORDERABLES F inal Result Performing Organization Address City/[facility] Co de Phone Number [facility] Department [place] [address] * Phosphorus (05/09/2025 10:31 PM CDT) Pathologist [facility] Phosphorus, pl 3.1 2.3 - 4.5 mg/dL Blood 05/09/2025 10:3 1 PM CDT 05/09/2025 10:47 PM CDT Delilah Adams MD PhD LAB BLOOD ORDERABLES F inal Result Performing Organization Address [facility] de Phone Number [facility] [place] [address] * Ferritin (05/09/2025 10:31 PM CDT) Pathologist [facility] Ferritin 98 30 - 400 ng/mL Blood 05/09/2025 10:3 1 PM CDT 05/09/2025 10:47 PM CDT Stephanie Montalvo MANUSCRIPT READER LAB BLOOD ORDERABLES Final Re sult Performing Organization Address [facility] Co de Phone Number [facility] [place] [address] * (ABNORMAL) Vancomycin level trough Draw before starting 2300 vanc dose (05/09/2025 10:31 PM CDT) Pathologist [facility] Vancomycin trough 47.1(C) 10.0 - 20.0 mcg/mL Comment:Reviewed Blood 05/09/2025 10:3 1 PM CDT 05/09/2025 10:47 PM CDT Narrative [facility] - 05/09/2025 11:33 PM CDT Draw before starting 2300 vanc dose Stephanie Montalvo MANUSCRIPT READER LAB BLOOD ORDERABLES Final Re sult [facility] Department [place] [address] * (ABNORMAL) Basic metabolic panel (05/09/2025 10:31 PM CDT) [facility] Sodium 140 135 - 145 mmol/L Potassium, pl 4.1 3.3 - 4.9 mmol/L [facility] Chloride 109 97 - 110 mmol/L [facility] CO2 22 22 - 32 mmol/L [facility] Anion gap 9 2 - 15 mmol/L [facility] BUN 47(H) 6 - 25 mg/dL [facility] Creatinine 2.72(H) 0.80 - 1.30 mg/dL [facility] Glucose 146 70 - 199 mg/dL [facility] Comment: Interpretive Data Fasting glucose >/= 126 [...] 2022. Calcium 8.3(L) 8.5 - 10.3 mg/dL [facility] Blood 05/09/2025 10:3 1 PM CDT 05/09/2025 10:47 PM CDT Delilah Adams MD PhD LAB BLOOD ORDERABLES F inal Result [facility] [place] [address] * POCT glucose (05/09/2025 7:30 PM CDT) Glucose, POC 177 70 - 199 mg/dL Blood 05/09/2025 7:30 PM CDT 05/09/2025 7:30 PM CDT Delilah Adams MD PhD LAB POCT ORDERABLES - DEVICE Final Result Performing Organization Address [facility] [place] [address] * POCT glucose (05/09/2025 4:59 PM CDT) Glucose, POC 199 70 - 199 mg/dL Blood 05/09/2025 4:59 PM CDT 05/09/2025 4:59 PM CDT Delilah Adams MD PhD LAB POCT ORDERABLES - DEVICE Final Result Performing Organization Address [facility]/ZIP Co de Phone Number [facility] [place] [address] * POCT glucose (05/09/2025 12:08 PM CDT) Glucose, POC 155 70 - 199 mg/dL Blood 05/09/2025 12:0 8 PM CDT 05/09/2025 12:08 PM CDT Delilah Adams MD PhD LAB POCT ORDERABLES - DEVICE Final Result Performing Organization Address City/[facility] Co de Phone Number [facility] [place] [address] * (ABNORMAL) eGFR (05/09/2025 10:08 AM CDT) [facility] eGFR 25(L) >=60 mL/min/1. 73 m2 Comment: [...] 05/09/2025 10:49 AM CDT us Stephanie Montalvo MANUSCRIPT READER LAB BLOOD ORDERABLES Final Re sult [facility] Department [place] [address] * Differential, auto (05/09/2025 10:08 AM CDT) [facility] Neutrophil abs 4.96 1.50 - 6.50 K/cumm Imm gran abs 0.09 0.00 - 0.10 K/cumm [facility] Lymphocyte abs 1.21 0.80 - 3.30 K/cumm [facility] Monocyte abs 0.57 0.20 - 0.80 K/cumm [facility] Eosinophil abs 0.26 0.00 - 0.50 K/cumm [facility] Basophil abs 0.08 0.00 - 0.10 K/cumm [facility] Neutrophil pct 69.2 % [facility] Comment: Interpretive Data Percent cell count reference ranges are not reported, since discordance with absolute values may lead to misinterpretation of CBC data. Current Interpretive Data was last revised on 2018. Imm gran pct 1.3 % [facility] Comment: Interpretive Data Percent cell count reference ranges are not reported, since discordance with absolute values may lead to misinterpretation of CBC data. Current Interpretive Data was last revised on 2018. Lymphocyte pct 16.9 % [facility] Comment: Interpretive Data Percent cell count reference ranges are not reported, since discordance with absolute values may lead to misinterpretation of CBC data. Current Interpretive Data was last revised on 2018. Monocyte pct 7.9 % [facility] Comment: Interpretive Data Percent cell count reference ranges are not reported, since discordance with absolute values may lead to misinterpretation of CBC data. Current Interpretive Data was last revised on 2018. Eosinophil pct 3.6 % [facility] Comment: Interpretive Data Percent cell count reference ranges are not reported, since discordance with absolute values may lead to misinterpretation of CBC data. Current Interpretive Data was last revised on 2018. Basophil pct 1.1 % [facility] Comment: Interpretive Data Percent cell count reference ranges are not reported, since discordance with absolute values may lead to misinterpretation of CBC data. Current Interpretive Data was last revised on 2018. Blood 05/09/2025 10:0 8 AM CDT 05/09/2025 10:48 AM CDT Stephanie Montalvo MANUSCRIPT READER LAB BLOOD ORDERABLES Final Re sult [facility] Department of Laboratories [place], [place] [id number] * (ABNORMAL) CBC with auto differential (05/09/2025 10:08 AM CDT) WBC 7.17 3.80 - 9.90 K/cumm Hgb 8.3(L) 13.0 - 17.5 g/dL [facility] Hct 26.3(L) 38.9 - 50.3 % [facility] Plt 211 150 - 400 K/cumm [facility] MPV 9.6 9.1 - 12.3 fL [facility] RBC 3.00(L) 4.30 - 5.80 M/cumm [facility] MCV 87.7 81.3 - 96.4 fL [facility] MCH 27.7 27.1 - 33.3 pg [facility] MCHC 31.6(L) 32.3 - 35.7 g/dL [facility] RDW CV 15.9(H) 11.1 - 14.9 % [facility] RDW SD 50.9(H) 35.7 - 48.1 fL [facility] NRBC abs 0.00 0.00 - 0.01 K/cumm [facility] Blood 05/09/2025 10:0 8 AM CDT 05/09/2025 10:48 AM CDT Stephanie Montalvo LAB BLOOD ORDERABLES Final Re sult Performing Organization Address City/State/[facility] Co de Phone Number [facility] [place] [address] * Protime-INR (05/09/2025 10:08 AM CDT) PT 12.9 9.7 - 13.0 sec INR 1.19 0.90 - 1.20 [facility] Comment: Interpretive data Oral anticoagulant therapeutic ranges: Venous thromboembolism prophylaxis or treatment: 2.0-3.0 CARDIOLOGY Standard range: 2.0-3.0 High-intensity range: 2.5-3.5 Refer to indication-specific guidelines for appropriate target ranges for prosthetic heart valve replacement. Current interpretive data was last revised on 2019. Blood 05/09/2025 10:0 8 AM CDT 05/09/2025 10:51 AM CDT Narrative [facility] - 05/09/2025 10:58 AM CDT Baseline prior to apixaban initiation. Stephanie Montalvo LAB BLOOD ORDERABLES Final Re sult Performing Organization Address [facility] Co de Phone Number [facility] [place] [address] * (ABNORMAL) Creatinine (05/09/2025 10:08 AM CDT) Creatinine 2.66(H) 0.80 - 1.30 mg/dL Blood 05/09/2025 10:0 8 AM CDT 05/09/2025 10:49 AM CDT Narrative [facility] - 05/09/2025 11:17 AM CDT Baseline prior to apixaban initiation. Result [facility] LAB BLOOD ORDERABLES Final Re sult Performing Organization Address [facility] [place] [address] * (ABNORMAL) Hepatic function panel (05/09/2025 10:08 AM CDT) Bilirubin, total 0.2 0.1 - 1.2 mg/dL Bilirubin, direct <0.2 0.1 - 0.3 mg/dL [facility] Protein, pl 6.7 6.5 - 8.5 g/dL [facility] Albumin 3.2(L) 3.5 - 5.0 g/dL [facility] Alk phos 89 40 - 130 Units/L [facility] ALT 6(L) 7 - 55 Units/L [facility] AST 18 10 - 50 Units/L [facility] Blood 05/09/2025 10:0 8 AM CDT 05/09/2025 10:49 AM CDT Narrative [facility] - 05/09/2025 11:38 AM CDT Baseline prior to apixaban initiation. [facility] LAB BLOOD ORDERABLES Final Re sult Performing Organization Address [facility] Co de Phone Number [facility] [place] [address] * POCT glucose (05/09/2025 8:13 AM CDT) Pathologist [facility] Glucose, POC 80 70 - 199 mg/dL Blood 05/09/2025 8:13 AM CDT 05/09/2025 8:13 AM CDT Delilah Adams MD PhD LAB POCT ORDERABLES - DEVICE Final Result Performing Organization Address City/[facility]/ZIP Co de Phone Number [facility] [place] [address] * (ABNORMAL) eGFR (05/08/2025 11:57 PM CDT) [facility] eGFR 23(L) >=60 mL/min/1. 73 m2 Comment: [...] ORDERABLES F inal Result Performing Organization Address City/[facility]/ZIP Co de Phone Number [facility] [place] [address] * Differential, auto (05/08/2025 11:57 PM CDT) Neutrophil abs 4.67 1.50 - 6.50 K/cumm Imm gran abs 0.10 0.00 - 0.10 K/cumm [facility] Lymphocyte abs 1.43 0.80 - 3.30 K/cumm [facility] Monocyte abs 0.52 0.20 - 0.80 K/cumm [facility] Eosinophil abs 0.28 0.00 - 0.50 K/cumm [facility] Basophil abs 0.07 0.00 - 0.10 K/cumm [facility] Neutrophil pct 66.0 % [facility] Comment: Interpretive Data Percent cell count reference ranges are not reported, since discordance with absolute values may lead to misinterpretation of CBC data. Current Interpretive Data was last revised on 2018. Imm gran pct 1.4 % [facility] Comment: Interpretive Data Percent cell count reference ranges are not reported, since discordance with absolute values may lead to misinterpretation of CBC data. Current Interpretive Data was last revised on 2018. Lymphocyte pct 20.2 % [facility] Comment: Interpretive Data Percent cell count reference ranges are not reported, since discordance with absolute values may lead to misinterpretation of CBC data. Current Interpretive Data was last revised on 2018. Monocyte pct 7.4 % [facility] Comment: Interpretive Data Percent cell count reference ranges are not reported, since discordance with absolute values may lead to misinterpretation of CBC data. Current Interpretive Data was last revised on 2018. Eosinophil pct 4.0 % [facility] Comment: Interpretive Data Percent cell count reference ranges are not reported, since discordance with absolute values may lead to misinterpretation of CBC data. Current Interpretive Data was last revised on 2018. Basophil pct 1.0 % [facility] Comment: Interpretive Data Percent cell count reference ranges are not reported, since discordance with absolute values may lead to misinterpretation of CBC data. Current Interpretive Data was last revised on 2018. Blood 05/08/2025 11:5 7 PM CDT 05/09/2025 12:39 AM CDT Delilah Adams MD PhD LAB BLOOD ORDERABLES F inal Result Performing Organization Address [facility] Co de Phone Number [facility] Department [place] [address] * (ABNORMAL) CBC with auto differential (05/08/2025 11:57 PM CDT) [facility] WBC 7.07 3.80 - 9.90 K/cumm Hgb 7.8(L) 13.0 - 17.5 g/dL [facility] Hct 24.7(L) 38.9 - 50.3 % [facility] Plt 208 150 - 400 K/cumm [facility] MPV 9.5 9.1 - 12.3 fL [facility] RBC 2.81(L) 4.30 - 5.80 M/cumm [facility] MCV 87.9 81.3 - 96.4 fL [facility] MCH 27.8 27.1 - 33.3 pg [facility] MCHC 31.6(L) 32.3 - 35.7 g/dL [facility] RDW CV 15.8(H) 11.1 - 14.9 % [facility] RDW SD 50.4(H) 35.7 - 48.1 fL [facility] NRBC abs 0.00 0.00 - 0.01 K/cumm [facility] Blood 05/08/2025 11:5 7 PM CDT 05/09/2025 12:39 AM CDT Delilah Adams MD PhD LAB BLOOD ORDERABLES F inal Result Performing Organization Address City/[facility]/ZIP Co de Phone Number [facility] [place] [address] * (ABNORMAL) Vitamin D 25 hydroxy (05/08/2025 11:57 PM CDT) Pathologist [facility] Vitamin D 25-OH 20(L) 30 - 80 ng/mL Blood 05/08/2025 11:5 7 PM CDT 05/09/2025 12:36 AM CDT Delilah Adams MD PhD LAB BLOOD ORDERABLES F inal Result Performing Organization Address City/[facility] Co de Phone Number [facility] Department [place] [address] * Phosphorus (05/08/2025 11:57 PM CDT) Pathologist [facility] Phosphorus, pl 3.8 2.3 - 4.5 mg/dL Blood 05/08/2025 11:5 7 PM CDT 05/09/2025 12:36 AM CDT Delilah Adams MD PhD LAB BLOOD ORDERABLES F inal Result Performing Organization Address [facility] de Phone Number [facility] [place] [address] * (ABNORMAL) Basic metabolic panel (05/08/2025 11:57 PM CDT) [facility] Sodium 141 135 - 145 mmol/L Potassium, pl 3.9 3.3 - 4.9 mmol/L [facility] Chloride 107 97 - 110 mmol/L [facility] CO2 23 22 - 32 mmol/L [facility] Anion gap 11 2 - 15 mmol/L [facility] BUN 51(H) 6 - 25 mg/dL [facility] Creatinine 2.84(H) 0.80 - 1.30 mg/dL [facility] Glucose 100 70 - 199 mg/dL [facility] Comment: Interpretive Data Fasting glucose >/= 126 [...] 2022. Calcium 8.5 8.5 - 10.3 mg/dL [facility] Blood 05/08/2025 11:5 7 PM CDT 05/09/2025 12:36 AM CDT Delilah Adams MD PhD LAB BLOOD ORDERABLES F inal Result [facility] [place] [address] * POCT glucose (05/08/2025 7:32 PM CDT) Glucose, POC 127 70 - 199 mg/dL Blood 05/08/2025 7:32 PM CDT 05/08/2025 7:32 PM CDT Result [facility] Delilah Adams MD PhD LAB POCT ORDERABLES - DEVICE Final Result Performing Organization Address [facility] [facility] Co de Phone Number [facility] [place] [address] * Creatinine, urine, random (05/08/2025 5:22 PM CDT) Creatinine Ur 27.1 mg/dL Comment: Interpretive Data No reference range established. Current interpretive data was last revised 2019. Urine 05/08/2025 5:22 PM CDT 05/08/2025 6:36 PM CDT Result [facility] Stephanie Montalvo MANUSCRIPT READER LAB URINE ORDERABLES Final Re sult Performing Organization Address City/[facility]/ZIP Co de Phone Number [facility] [place] [address] * POCT glucose (05/08/2025 4:58 PM CDT) Glucose, POC 113 70 - 199 mg/dL Blood 05/08/2025 4:58 PM CDT 05/08/2025 4:58 PM CDT Delilah Adams MD PhD LAB POCT ORDERABLES - DEVICE Final Result Performing Organization Address [facility] Co de Phone Number [facility] [place] [address] * POCT glucose (05/08/2025 2:16 PM CDT) Glucose, POC 110 70 - 199 mg/dL Blood 05/08/2025 2:16 PM CDT 05/08/2025 2:16 PM CDT Result [facility] Delilah Adams MD PhD LAB POCT ORDERABLES - DEVICE Final Result Performing Organization Address [facility] de Phone Number [facility] [place] [address] * Surgical pathology (05/08/2025 1:43 PM CDT) Tissue (Soft Tissue, debridement) 05/08/2025 1:43 PM CDT [address]ative PATHOLOGY [facility] - 05/15/2025 10:47 AM CDT EPIC results best viewed via link to PDF [facility] Rufina Mendoza Laboratory [place] [address] Note to Patients: This report may contain [...] SURGICAL PATHOLOGY REPORT FINAL Patient Name: GREGORY KATCitlali Gender: M : 1955 (Age: 70) Address: [address] [place], [place] [id number] Hospital #: [id number] Taken:05/08/2025 Received:05/08/2025 Reported: 05/15/2025 Patient Type: [facility] Inpatient Service: Vascular Location: [place] [address] Physician(s): Johnny Velasquez M.D. Diagnosis: Bone, left [...] GD) with scant patino- perkins soft tissue. Oven Unloader fragments are submitted in cassette A1 after decalcification. Jar 1. behu/05/09/2025 10:20 PA(s): Rena Dempsey MS, PA(ASCP)CM By this signature, I attest that the above diagnosis is based upon my personal examination of the slides(and/or other material). Addenda/Procedures The performance characteristics of some immunohistochemical stains, fluorescence in-situ hybridization tests and immunophenotyping by flow cytometry cited in this report (if any) were determined by the Surgical Pathology and Flow Cytometry Departments at [facility] as part of an ongoing auditor/quality program and in compliance with federally mandated [...] Surgical Pathology and Flow Cytometry Departments of [facility]. It has not been cleared or approved by the U. S. Food and Drug Administration. IMAGES AND SCANNED DOCUMENTS, IF INCLUDED, ONLY VIEWABLE IN PDF VERSION OF REPORT Delilah Adams MD PhD LAB PATHOLOGY ORDERABL ES Final Result PATHOLOGY [facility] 3rd Floor [place], [place] [phone] * Tissue aerobic and anaerobic culture and gram stain Bone Foot, left (05/08/2025 1:38 PM CDT) Direct Specimen Exam Stain: No polymorphonuclear leukocytes seen. No organisms seen. Report Final Report: No growth [facility] Bone (Foot, left) 05/08/2025 1:38 PM CDT 05/08/2025 4:13 PM CDT Narrative [facility] - 05/11/2025 12:00 PM CDT Received in transport media. Specimen collected in the operating room. Testing performed by [facility] Microbiology Laboratory ([phone]) Specimens submitted from normally sterile body sites [...] ERAL ORDERABLES Final Result Performing Organization Address [facility]/ZIP Co de Phone Number [facility] [place] [address] * POCT glucose (05/08/2025 1:17 PM CDT) Glucose, POC 114 70 - 199 mg/dL Blood 05/08/2025 1:17 PM CDT 05/08/2025 1:17 PM CDT Delilah Adams MD PhD LAB POCT ORDERABLES - DEVICE Final Result Performing Organization Address [facility] Co de Phone Number [facility] [place] [address] * POCT glucose (05/08/2025 11:07 AM CDT) Glucose, POC 113 70 - 199 mg/dL Blood 05/08/2025 11:0 7 AM CDT 05/08/2025 11:07 AM CDT Delilah Adams MD PhD LAB POCT ORDERABLES - DEVICE Final Result Performing Organization Address [facility] Co de Phone Number [facility] [place] [address] * Urine culture Urine, bladder (05/08/2025 11:02 AM CDT) Report Final Report: No growth Urine, bladder 05/08/2025 11 :02 AM CDT 05/08/2025 2:[address] [facility] - 05/09/2025 6:21 PM CDT Testing performed by [facility] Microbiology Laboratory ([phone]) Stephanie Montalvo MANUSCRIPT READER LAB MICROBIOLOGY - GENERAL OR DERABLES Final Result [facility] Department [place] [address] * (ABNORMAL) Urinalysis reflex to microscopic and culture Urine, clean voided (05/08/2025 9:46 AM CDT) Color, ur Straw Yellow Clarity, ur Cloudy(A) Clear [facility] Specific gravity, ur 1.017 1.003 - 1.030 [facility] pH, urine 6.0 [facility] Comment: Interpretive Data U rine pH is affected by diet, medications, systemic acid-base disturbances, and renal tubular function. pH may affect urinary stone formation. For example, urine pH below 6.0 may help reduce the tendency for calcium phosphate stones and pH greater than 6.0 may reduce the tendency for uric acid stone formation. Source: [facility] Current Interpretive Data was last revised on 2017 Protein, ur ql 1+(A) Negative [facility] Glucose, ur ql Negative Negative [facility] Ketones, ur Trace Negative [facility] Bilirubin, ur Negative Negative [facility] Blood, ur 2+(A) Negative [facility] Urobilinogen, ur <2.0 <2.0 mg/dL [facility] Nitrite, ur Negative Negative [facility] Leukocyte esterase, ur 3+(A) Negative [facility] UA reflex comment Reflex to microscopic UA will be performed. [facility] Urine, clean voided 05/08/2025 9:46 AM CDT 05/08/2025 10:24 AM CDT us Delilah Adams MD PhD LAB MICROBIOLOGY - GEN ERAL ORDERABLES Final Result [facility] Department [place] [address] * Urea nitrogen, urine, random (05/08/2025 9:46 AM CDT) Urea nitrogen, ur 353 mg/dL Comment: Interpretive Data No reference range established. Current interpretive data was last revised 2019. Urine 05/08/2025 9:46 AM CDT 05/08/2025 10:27 AM CDT Stephanie Montalvo MANUSCRIPT READER LAB URINE ORDERABLES Final Re sult Performing Organization Address [facility] Co de Phone Number [facility] Department [place] [address] * Sodium, urine, random (05/08/2025 9:46 AM CDT) Sodium, ur 29 mmol/L Comment: Interpretive Data No reference range established. Current interpretive data was last revised 2019. Urine (Urine, Clean Catch) 05/08/2025 9:46 AM CDT 05/08/2025 10:24 AM CDT Delilah Adams MD PhD LAB URINE ORDERABLES F inal Result Performing Organization Address [facility] Co de Phone Number [facility] Department [place] [address] * Potassium, urine, random (05/08/2025 9:46 AM CDT) Potassium conc, ur 23.4 mmol/L Comment: Interpretive Data No reference range established. Current interpretive data was last revised 2019. Urine (Urine, Clean Catch) 05/08/2025 9:46 AM CDT 05/08/2025 10:24 AM CDT Delilah Adams MD PhD LAB URINE ORDERABLES F inal Result Performing Organization Address [facility] Co de Phone Number [facility] [place] [address] * Creatinine, urine, random (05/08/2025 9:46 AM CDT) Creatinine Ur 67.4 mg/dL Comment: Interpretive Data No reference range established. Current interpretive data was last revised 2019. Urine 05/08/2025 9:46 AM CDT 05/08/2025 10:27 AM CDT Delilah Adams MD PhD LAB URINE ORDERABLES F inal Result Performing Organization Address [facility] Co de Phone Number [facility] Department [place] [address] * Chloride, urine, random (05/08/2025 9:46 AM CDT) Pathologist [facility] Chloride, ur <25 mmol/L Comment: Interpretive Data No reference range established. Current interpretive data was last revised 2019. Urine 05/08/2025 9:46 AM CDT 05/08/2025 10:24 AM CDT Delilah Adams MD PhD LAB URINE ORDERABLES F inal Result Performing Organization Address [facility] de Phone Number [facility] [place] [address] * (ABNORMAL) Urinalysis, microscopic only (05/08/2025 9:46 AM CDT) Pathologist [facility] WBC, ur >50(A) 0 - 5 /HPF RBC, ur 21-50(A) 0 - 2 /HPF [facility] Epithelial cells, squamous, ur 1-5 0 - 5 /HPF [facility] Bacteria, ur Trace(A) [facility] Mucous, ur Present(A) [facility] Hyaline casts, ur 1-5 0 - 10 /LPF [facility] Granular casts, ur >50(A) 0 - 0 /LPF [facility] Culture Reflex Comment Reflex to urine culture will be performed. [facility] Urine, clean voided 05/08/2025 9:46 AM CDT 05/08/2025 10:24 AM CDT us Delilah Adams MD PhD LAB URINE ORDERABLES F inal Result Performing Organization Address City/[facility]/ZIP Co de Phone Number [facility] Department [place] [address] * POCT glucose (05/08/2025 8:21 AM CDT) Glucose, POC 118 70 - 199 mg/dL Blood 05/08/2025 8:21 AM CDT 05/08/2025 8:21 AM CDT us Delilah Adams MD PhD LAB POCT ORDERABLES - DEVICE Final Result Performing Organization Address [facility] de Phone Number [facility] Department [place] [address] * (ABNORMAL) eGFR (05/08/2025 12:54 AM CDT) eGFR 19(L) >=60 mL/min/1. 73 m2 Comment: [...] PhD LAB BLOOD ORDERABLES F inal Result [facility] Department [place] [address] * (ABNORMAL) Differential, auto (05/08/2025 12:54 AM CDT) Neutrophil abs 5.68 1.50 - 6.50 K/cumm Imm gran abs 0.09 0.00 - 0.10 K/cumm [facility] Lymphocyte abs 1.58 0.80 - 3.30 K/cumm [facility] Monocyte abs 0.66 0.20 - 0.80 K/cumm [facility] Eosinophil abs 0.16 0.00 - 0.50 K/cumm [facility] Basophil abs 0.12(H) 0.00 - 0.10 K/cumm [facility] Neutrophil pct 68.5 % [facility] Comment: Interpretive Data Percent cell count reference ranges are not reported, since discordance with absolute values may lead to misinterpretation of CBC data. Current Interpretive Data was last revised on 2018. Imm gran pct 1.1 % [facility] Comment: Interpretive Data Percent cell count reference ranges are not reported, since discordance with absolute values may lead to misinterpretation of CBC data. Current Interpretive Data was last revised on 2018. Lymphocyte pct 19.1 % [facility] Comment: Interpretive Data Percent cell count reference ranges are not reported, since discordance with absolute values may lead to misinterpretation of CBC data. Current Interpretive Data was last revised on 2018. Monocyte pct 8.0 % [facility] Comment: Interpretive Data Percent cell count reference ranges are not reported, since discordance with absolute values may lead to misinterpretation of CBC data. Current Interpretive Data was last revised on 2018. Eosinophil pct 1.9 % [facility] Comment: Interpretive Data Percent cell count reference ranges are not reported, since discordance with absolute values may lead to misinterpretation of CBC data. Current Interpretive Data was last revised on 2018. Basophil pct 1.4 % [facility] Comment: Interpretive Data Percent cell count reference ranges are not reported, since discordance with absolute values may lead to misinterpretation of CBC data. Current Interpretive Data was last revised on 2018. Blood 05/08/2025 12:5 4 AM CDT 05/08/2025 1:58 AM CDT Delilah Adams MD PhD LAB BLOOD ORDERABLES F inal Result Performing Organization Address City/[facility]/ZIP Co de Phone Number [facility] Department [place] [address] * (ABNORMAL) CBC with auto differential (05/08/2025 12:54 AM CDT) WBC 8.29 3.80 - 9.90 K/cumm Hgb 8.4(L) 13.0 - 17.5 g/dL [facility] Hct 26.1(L) 38.9 - 50.3 % [facility] Plt 223 150 - 400 K/cumm [facility] MPV 9.8 9.1 - 12.3 fL [facility] RBC 2.99(L) 4.30 - 5.80 M/cumm [facility] MCV 87.3 81.3 - 96.4 fL [facility] MCH 28.1 27.1 - 33.3 pg [facility] MCHC 32.2(L) 32.3 - 35.7 g/dL [facility] RDW CV 15.5(H) 11.1 - 14.9 % [facility] RDW SD 49.1(H) 35.7 - 48.1 fL [facility] NRBC abs 0.00 0.00 - 0.01 K/cumm [facility] Blood 05/08/2025 12:5 4 AM CDT 05/08/2025 1:58 AM CDT Delilah Adams MD PhD LAB BLOOD ORDERABLES F inal Result [facility] [place] [address] * Type and screen (05/08/2025 12:54 AM CDT) ABO Rh O Positive Carly, indirect Negative [facility] Blood 05/08/2025 12:5 4 AM CDT 05/08/2025 2:02 AM CDT Narrative [facility] - 05/08/2025 3:30 AM CDT Has the patient had Daratumumab or Isatuximab in the past 6 months?->Unknown Stephanie Montalvo MANUSCRIPT READER LAB BLOOD BANK TEST ORDERABLE S Final Result Performing Organization Address [facility] [place] [address] * (ABNORMAL) Phosphorus (05/08/2025 12:54 AM CDT) Phosphorus, pl 5.3(H) 2.3 - 4.5 mg/dL Blood 05/08/2025 12:5 4 AM CDT 05/08/2025 1:59 AM CDT Delilah Adams MD PhD LAB BLOOD ORDERABLES F inal Result Performing Organization Address [facility] Co de Phone Number [facility] Department [place] [address] * Magnesium (05/08/2025 12:54 AM CDT) Magnesium 2.2 1.4 - 2.5 mg/dL Blood 05/08/2025 12:5 4 AM CDT 05/08/2025 1:59 AM CDT Delilah Adams MD PhD LAB BLOOD ORDERABLES F inal Result Performing Organization Address City/[facility]/ZIP [facility] de Phone [facility] [place] [address] * (ABNORMAL) Basic metabolic panel (05/08/2025 12:54 AM CDT) Sodium 137 135 - 145 mmol/L Potassium, pl 4.5 3.3 - 4.9 mmol/L [facility] Chloride 102 97 - 110 mmol/L [facility] CO2 24 22 - 32 mmol/L [facility] Anion gap 11 2 - 15 mmol/L [facility] BUN 58(H) 6 - 25 mg/dL [facility] Creatinine 3.27(H) 0.80 - 1.30 mg/dL [facility] Glucose 124 70 - 199 mg/dL [facility] Comment: Interpretive Data Fasting glucose >/= 126 [...] 2022. Calcium 8.2(L) 8.5 - 10.3 mg/dL [facility] Blood 05/08/2025 12:5 4 AM CDT 05/08/2025 1:59 AM CDT us Delilah Adams MD PhD LAB BLOOD ORDERABLES F inal Result Performing Organization Address [facility] Co de Phone Number [facility] [place] [address] * Transfuse RBC (05/08/2025 12:03 AM CDT) Blood Delilah Adams MD PhD BLOOD TRANSFUSION ORDPrince URBINA Final Result Performing Organization Address City/[facility] Co de Phone Number [facility] Department of [employer] [place], [place] [id number] * (ABNORMAL) POCT glucose (05/07/2025 7:49 PM CDT) [facility] Glucose, POC 201(H) 70 - 199 mg/dL Blood 05/07/2025 7:49 PM CDT 05/07/2025 7:49 PM CDT Delilah Adams MD PhD LAB POCT ORDERABLES - DEVICE Final Result Performing Organization Address [facility] Co de Phone Number [facility] [employer] [place], [place] [id number] * Prepare RBC: 1 Units (05/07/2025 7:23 PM CDT) [facility] Product code [id number] Unit Number [id number] * [facility] Product Blood Type OPOS [facility] Dispense Status PRESUMED TRANSFUSED [facility] Blood 05/07/2025 7:23 PM CDT 05/07/2025 7:22 PM CDT Narrative [facility] - 05/08/2025 4:01 PM CDT Are special requirements needed? (All products are leukoreduced and CMV- safe)- >No Date required:-[id number] LRRBC # of [id number] Reasons:-Active bleeding, Hgb <8 g/dL} us Delilah Adams MD PhD BLOOD BANK PRODUCT ORD ERABLES Final Result Performing Organization Address City/[facility] Co de Phone Number [facility] [employer] [place], [place] [id number] * (ABNORMAL) Differential, auto (05/07/2025 6:51 PM CDT) [facility] Neutrophil abs 6.71(H) 1.50 - 6.50 K/cumm Imm gran abs 0.10 0.00 - 0.10 K/cumm [facility] Lymphocyte abs 1.70 0.80 - 3.30 K/cumm [facility] Monocyte abs 0.62 0.20 - 0.80 K/cumm [facility] Eosinophil abs 0.18 0.00 - 0.50 K/cumm [facility] Basophil abs 0.10 0.00 - 0.10 K/cumm [facility] Neutrophil pct 71.2 % [facility] Comment: Interpretive Data Percent cell count reference ranges are not reported, since discordance with absolute values may lead to misinterpretation of CBC data. Current Interpretive Data was last revised on 2018. Imm gran pct 1.1 % [facility] Comment: Interpretive Data Percent cell count reference ranges are not reported, since discordance with absolute values may lead to misinterpretation of CBC data. Current Interpretive Data was last revised on 2018. Lymphocyte pct 18.1 % [facility] Comment: Interpretive Data Percent cell count reference ranges are not reported, since discordance with absolute values may lead to misinterpretation of CBC data. Current Interpretive Data was last revised on 2018. Monocyte pct 6.6 % [facility] Comment: Interpretive Data Percent cell count reference ranges are not reported, since discordance with absolute values may lead to misinterpretation of CBC data. Current Interpretive Data was last revised on 2018. Eosinophil pct 1.9 % [facility] Comment: Interpretive Data Percent cell count reference ranges are not reported, since discordance with absolute values may lead to misinterpretation of CBC data. Current Interpretive Data was last revised on 2018. Basophil pct 1.1 % [facility] Comment: Interpretive Data Percent cell count reference ranges are not reported, since discordance with absolute values may lead to misinterpretation of CBC data. Current Interpretive Data was last revised on 2018. Blood 05/07/2025 6:51 PM CDT 05/07/2025 7:17 PM CDT us Felice Rowe MD LAB BLOOD ORDERABLES Final Result [facility] [place] [address] * (ABNORMAL) CBC with auto differential (05/07/2025 6:51 PM CDT) [facility] WBC 9.41 3.80 - 9.90 K/cumm Hgb 7.7(L) 13.0 - 17.5 g/dL [facility] Hct 24.1(L) 38.9 - 50.3 % [facility] Plt 227 150 - 400 K/cumm [facility] MPV 9.6 9.1 - 12.3 fL [facility] RBC 2.76(L) 4.30 - 5.80 M/cumm [facility] MCV 87.3 81.3 - 96.4 fL [facility] MCH 27.9 27.1 - 33.3 pg [facility] MCHC 32.0(L) 32.3 - 35.7 g/dL [facility] RDW CV 15.7(H) 11.1 - 14.9 % [facility] RDW SD 49.5(H) 35.7 - 48.1 fL [facility] NRBC abs 0.00 0.00 - 0.01 K/cumm [facility] Blood 05/07/2025 6:51 PM CDT 05/07/2025 7:17 PM CDT us Felice Rowe MD LAB BLOOD ORDERABLES Final Result [facility] [place] [address] * Differential, auto (05/07/2025 5:54 PM CDT) Pathologist [facility] Neutrophil abs 5.82 1.50 - 6.50 K/cumm Imm gran abs 0.07 0.00 - 0.10 K/cumm [facility] Lymphocyte abs 1.87 0.80 - 3.30 K/cumm [facility] Monocyte abs 0.46 0.20 - 0.80 K/cumm [facility] Eosinophil abs 0.15 0.00 - 0.50 K/cumm [facility] Basophil abs 0.10 0.00 - 0.10 K/cumm [facility] Neutrophil pct 68.7 % [facility] Comment: Interpretive Data Percent cell count reference ranges are not reported, since discordance with absolute values may lead to misinterpretation of CBC data. Current Interpretive Data was last revised on 2018. Imm gran pct 0.8 % [facility] Comment: Interpretive Data Percent cell count reference ranges are not reported, since discordance with absolute values may lead to misinterpretation of CBC data. Current Interpretive Data was last revised on 2018. Lymphocyte pct 22.1 % [facility] Comment: Interpretive Data Percent cell count reference ranges are not reported, since discordance with absolute values may lead to misinterpretation of CBC data. Current Interpretive Data was last revised on 2018. Monocyte pct 5.4 % [facility] Comment: Interpretive Data Percent cell count reference ranges are not reported, since discordance with absolute values may lead to misinterpretation of CBC data. Current Interpretive Data was last revised on 2018. Eosinophil pct 1.8 % [facility] Comment: Interpretive Data Percent cell count reference ranges are not reported, since discordance with absolute values may lead to misinterpretation of CBC data. Current Interpretive Data was last revised on 2018. Basophil pct 1.2 % [facility] Comment: Interpretive Data Percent cell count reference ranges are not reported, since discordance with absolute values may lead to misinterpretation of CBC data. Current Interpretive Data was last revised on 2018. Blood 05/07/2025 5:54 PM CDT 05/07/2025 6:06 PM CDT us Stephanie Montalvo MANUSCRIPT READER LAB BLOOD ORDERABLES Final Re sult [facility] [place] [address] * (ABNORMAL) CBC with auto differential (05/07/2025 5:54 PM CDT) WBC 8.47 3.80 - 9.90 K/cumm Hgb 7.9(L) 13.0 - 17.5 g/dL [facility] Hct 24.6(L) 38.9 - 50.3 % [facility] Plt 244 150 - 400 K/cumm [facility] [facility] MPV 9.3 9.1 - 12.3 fL [facility] RBC 2.85(L) 4.30 - 5.80 M/cumm [facility] MCV 86.3 81.3 - 96.4 fL [facility] MCH 27.7 27.1 - 33.3 pg [facility] MCHC 32.1(L) 32.3 - 35.7 g/dL [facility] RDW CV 15.8(H) 11.1 - 14.9 % [facility] RDW SD 49.6(H) 35.7 - 48.1 fL [facility] NRBC abs 0.00 0.00 - 0.01 K/cumm [facility] Blood 05/07/2025 5:54 PM CDT 05/07/2025 6:06 PM CDT us Stephanie Montalvo MANUSCRIPT READER LAB BLOOD ORDERABLES Final Re sult [facility] [place] [address] * POCT glucose (05/07/2025 5:16 PM CDT) [facility] Signature Glucose, POC 142 70 - 199 mg/dL Blood 05/07/2025 5:16 PM CDT 05/07/2025 5:16 PM CDT us Delilah Adams MD PhD LAB POCT ORDERABLES - DEVICE Final Result [facility] [place] [address] * Transfuse RBC (05/07/2025 3:15 PM CDT) Blood Stephanie Montalvo MANUSCRIPT READER BLOOD TRANSFUSION ORDERABLES Final Result [facility] [place] [address] * Prepare RBC: 1 Units (05/07/2025 12:23 PM CDT) Pathologist [facility] Product code [id number] Unit Number [id number] [facility] Product Blood Type OPOS [facility] Dispense Status PRESUMED TRANSFUSED [facility] Blood 05/07/2025 12:2 3 PM CDT 05/07/2025 12:22 PM CDT Narrative [facility] - 05/08/2025 12:56 AM CDT Are special requirements needed? (All products are leukoreduced and CMV- safe)- >No Date required:-[id number] LRRBC # of [id number] Reasons:-Cardiovascular disease, Hgb <8 g/dL} Stephanie Montalvo MANUSCRIPT READER BLOOD BANK PRODUCT ORDERABLES Final Result [facility] [place] [address] * POCT glucose (05/07/2025 11:58 AM CDT) [facility] Glucose, POC 112 70 - 199 mg/dL Blood 05/07/2025 11:5 8 AM CDT 05/07/2025 11:58 AM CDT Delilah Adams MD PhD LAB POCT ORDERABLES - [place] [address] * (ABNORMAL) CBC without differential (05/07/2025 10:27 AM CDT) [facility] WBC 9.57 3.80 - 9.90 K/cumm Hgb 7.7(L) 13.0 - 17.5 g/dL [facility] Hct 25.5(L) 38.9 - 50.3 % [facility] Plt 279 150 - 400 K/cumm [facility] MPV 9.8 9.1 - 12.3 fL [facility] RBC 2.89(L) 4.30 - 5.80 M/cumm [facility] MCV 88.2 81.3 - 96.4 fL [facility] MCH 26.6(L) 27.1 - 33.3 pg [facility] MCHC 30.2(L) 32.3 - 35.7 g/dL [facility] RDW CV 15.9(H) 11.1 - 14.9 % [facility] RDW SD 50.3(H) 35.7 - 48.1 fL [facility] NRBC abs 0.00 0.00 - 0.01 K/cumm [facility] Blood 05/07/2025 10:2 7 AM CDT 05/07/2025 10:40 AM CDT Delilah Adams MD PhD LAB BLOOD ORDERABLES F inal Result [facility] [place] [address] * Transfuse RBC (05/07/2025 8:16 AM CDT) Blood Delilah Adams MD PhD BLOOD TRANSFUSION [facility] Final Result [facility] [place] [address] * POCT glucose (05/07/2025 7:33 AM CDT) [facility] Glucose, POC 149 70 - 199 mg/dL Blood 05/07/2025 7:33 AM CDT 05/07/2025 7:33 AM CDT Delilah Adams MD PhD LAB POCT ORDERABLES - DEVICE Final Result [facility] [place] [address] * Prepare RBC: 1 Units (05/07/2025 5:02 AM CDT) [facility] Product code [id number] Unit Number [id number] [facility] Product Blood Type OPOS [facility] Dispense Status PRESUMED TRANSFUSED [facility] Blood 05/07/2025 5:02 AM CDT 05/07/2025 5:02 AM CDT Narrative [facility] - 05/07/2025 8:01 PM CDT Are special requirements needed? (All products are leukoreduced and CMV- safe)- >No Date required:-[id number] LRRBC # of [id number] Reasons:-Active bleeding, Hgb <8 g/dL} Delilah Adams MD PhD BLOOD BANK PRODUCT ORD ERABLES Final Result Performing Organization Address City/[facility]/ZIP Co de Phone Number [facility] [place] [address] * (ABNORMAL) CBC without differential (05/07/2025 4:26 AM CDT) [facility] WBC 8.62 3.80 - 9.90 K/cumm Hgb 7.3(L) 13.0 - 17.5 g/dL [facility] Hct 23.6(L) 38.9 - 50.3 % [facility] Plt 262 150 - 400 K/cumm [facility] MPV 9.5 9.1 - 12.3 fL [facility] RBC 2.74(L) 4.30 - 5.80 M/cumm [facility] MCV 86.1 81.3 - 96.4 fL [facility] MCH 26.6(L) 27.1 - 33.3 pg [facility] MCHC 30.9(L) 32.3 - 35.7 g/dL [facility] RDW CV 15.9(H) 11.1 - 14.9 % [facility] RDW SD 50.4(H) 35.7 - 48.1 fL [facility] NRBC abs 0.00 0.00 - 0.01 K/cumm [facility] Blood 05/07/2025 4:26 AM CDT 05/07/2025 4:46 AM CDT Narrative [facility] - 05/07/2025 4:53 AM CDT While on heparin infusion Delilah Adams MD PhD LAB BLOOD ORDERABLES F inal Result [facility] [place] [address] * (ABNORMAL) eGFR (05/06/2025 10:32 PM CDT) eGFR 25(L) >=60 mL/min/1. 73 m2 Comment: [...] PhD LAB BLOOD ORDERABLES F inal Result [facility] Department [place] [address] * Differential, auto (05/06/2025 10:32 PM CDT) Neutrophil abs 5.43 1.50 - 6.50 K/cumm Imm gran abs 0.06 0.00 - 0.10 K/cumm [facility] Lymphocyte abs 1.10 0.80 - 3.30 K/cumm [facility] Monocyte abs 0.34 0.20 - 0.80 K/cumm [facility] Eosinophil abs 0.12 0.00 - 0.50 K/cumm [facility] Basophil abs 0.04 0.00 - 0.10 K/cumm [facility] Neutrophil pct 76.6 % [facility] Comment: Interpretive Data Percent cell count reference ranges are not reported, since discordance with absolute values may lead to misinterpretation of CBC data. Current Interpretive Data was last revised on 2018. Imm gran pct 0.8 % [facility] Comment: Interpretive Data Percent cell count reference ranges are not reported, since discordance with absolute values may lead to misinterpretation of CBC data. Current Interpretive Data was last revised on 2018. Lymphocyte pct 15.5 % [facility] Comment: Interpretive Data Percent cell count reference ranges are not reported, since discordance with absolute values may lead to misinterpretation of CBC data. Current Interpretive Data was last revised on 2018. Monocyte pct 4.8 % [facility] Comment: Interpretive Data Percent cell count reference ranges are not reported, since discordance with absolute values may lead to misinterpretation of CBC data. Current Interpretive Data was last revised on 2018. Eosinophil pct 1.7 % [facility] Comment: Interpretive Data Percent cell count reference ranges are not reported, since discordance with absolute values may lead to misinterpretation of CBC data. Current Interpretive Data was last revised on 2018. Basophil pct 0.6 % [facility] Comment: Interpretive Data Percent cell count reference ranges are not reported, since discordance with absolute values may lead to misinterpretation of CBC data. Current Interpretive Data was last revised on 2018. Blood 05/06/2025 10:3 2 PM CDT 05/06/2025 10:59 PM CDT Delilah Adams MD PhD LAB BLOOD ORDERABLES F inal Result Performing Organization Address City/[facility]/ZIP Co de Phone Number [facility] [place] [address] * (ABNORMAL) CBC with auto differential (05/06/2025 10:32 PM CDT) WBC 7.09 3.80 - 9.90 K/cumm Hgb 7.9(L) 13.0 - 17.5 g/dL [facility] Hct 25.7(L) 38.9 - 50.3 % [facility] Plt 271 150 - 400 K/cumm [facility] MPV 9.7 9.1 - 12.3 fL [facility] RBC 2.98(L) 4.30 - 5.80 M/cumm [facility] MCV 86.2 81.3 - 96.4 fL [facility] MCH 26.5(L) 27.1 - 33.3 pg [facility] MCHC 30.7(L) 32.3 - 35.7 g/dL [facility] RDW CV 16.0(H) 11.1 - 14.9 % [facility] RDW SD 50.4(H) 35.7 - 48.1 fL [facility] NRBC abs 0.00 0.00 - 0.01 K/cumm [facility] Blood 05/06/2025 10:3 2 PM CDT 05/06/2025 10:59 PM CDT Delilah Adams MD PhD LAB BLOOD ORDERABLES F inal Result Performing Organization Address City/[facility]/ZIP Co de Phone Number [facility] [address] * Phosphorus (05/06/2025 10:32 PM CDT) Pathologist [facility] Phosphorus, pl 3.8 2.3 - 4.5 mg/dL Blood 05/06/2025 10:3 2 PM CDT 05/06/2025 10:59 PM CDT Delilah Adams MD PhD LAB BLOOD [place] [address] * Magnesium (05/06/2025 10:32 PM CDT) [facility] Magnesium 2.3 1.4 - 2.5 mg/dL Blood 05/06/2025 10:3 2 PM CDT 05/06/2025 10:59 PM CDT Delilah Adams MD PhD LAB BLOOD ORDERABLES F inal Result Performing Organization Address City/[facility]/ZIP Co de Phone Number [facility] [place] [address] * (ABNORMAL) Vancomycin level trough (05/06/2025 10:32 PM CDT) [facility] Vancomycin trough 22.3(H) 10.0 - 20.0 mcg/mL Comment:Repeated and Verifie d Blood 05/06/2025 10:3 2 PM CDT 05/06/2025 10:59 PM CDT Delilah Adams MD PhD LAB BLOOD ORDERABLES F inal Result [facility] [place] [address] * (ABNORMAL) Basic metabolic panel (05/06/2025 10:32 PM CDT) Sodium 144 135 - 145 mmol/L Potassium, pl 4.3 3.3 - 4.9 mmol/L [facility] Chloride 108 97 - 110 mmol/L [facility] CO2 25 22 - 32 mmol/L [facility] Anion gap 11 2 - 15 mmol/L [facility] BUN 45(H) 6 - 25 mg/dL [facility] Creatinine 2.62(H) 0.80 - 1.30 mg/dL [facility] Glucose 124 70 - 199 mg/dL [facility] Comment: Interpretive Data Fasting glucose >/= 126 [...] 2022. Calcium 8.5 8.5 - 10.3 mg/dL [facility] Blood 05/06/2025 10:3 2 PM CDT 05/06/2025 10:59 PM CDT Delilah Adams MD PhD LAB BLOOD ORDERABLES F inal Result [facility] Department [place] [address] * POCT glucose (05/06/2025 10:14 PM CDT) Glucose, POC 130 70 - 199 mg/dL Blood 05/06/2025 10:1 4 PM CDT 05/06/2025 10:14 PM CDT Delilah Adams MD PhD LAB POCT ORDERABLES - DEVICE Final Result [facility] [place] [address] * POCT glucose (05/06/2025 8:02 PM CDT) Glucose, POC 108 70 - 199 mg/dL Blood 05/06/2025 8:02 PM CDT 05/06/2025 8:02 PM CDT Delilah Adams MD PhD LAB POCT ORDERABLES - DEVICE Final Result Performing Organization Address [facility] de Phone Number [facility] One [facility] [place] [address] * FL Fluoroscopy < 1 Hour (Statistical Only) (05/06/2025 7:55 PM CDT) Narrative [facility] - 05/06/2025 8:05 PM CDT The images from this study are not interpreted by Radiology. Please refer to the physician's procedure / OR operative note. Bryan Hough MD IMG FLUOROSCOPY PROCEDURES F inal Result Performing Organization Address [facility] de Phone Number [email or web address] * ANGIOGRAM (05/06/2025 7:53 PM CDT) Anatomical Region Laterality Modality X-Ray Angiograph y Narrative 05/06/2025 8:52 PM CDT Please see OpNote for result. Delilah Adams MD PhD SURGICAL CASE ORDERS [...] not performed. Few Proteus vulgaris group (.) [facility] Organism PROTEUS VULGARIS GROUP [facility] Organism STREPTOCOCCUS PYOGENES (GROUP A STREPTOCOCCI) [facility] Organism MIXED AEROBIC AND ANAEROBIC MICROORGANISMS [facility] Tissue (Toe, third, left) 05/06/2025 7:48 PM CDT 05/06/2025 8:59 PM CDT Narrative [facility] - 05/10/2025 2:54 PM CDT Tissue from 3rd Left Toe Specimen collected in the operating room. Testing performed by [facility] Laboratory ([phone]) Specimens submitted from normally sterile body sites [...] MICROBIOLOGY - GEN ERAL ORDERABLES Final Result [facility] Department [place] [address] * (ABNORMAL) Aerobic and anaerobic culture and [...] * * Few Mixed Gram-positive microorganisms (.) [facility] Organism MIXED GRAM POSITIVE MICROORGANISMS [facility] Organism STAPHYLOCOCCUS AUREUS [facility] Organism PROTEUS VULGARIS GROUP [facility] Wound (Toe, fourth, left) 05/06/2025 7:47 PM CDT 05/06/2025 9:06 PM CDT [facility]ative [facility] - 05/13/[facility] 1:29 PM CDT Fluid from LEFT 4th toe Specimen received on an ESwab. Testing performed by [facility] ([phone]) Specimens submitted from normally sterile body sites [...] MICROBIOLOGY - GEN ERAL ORDERABLES Final Result [facility] [place] [address] * Surgical pathology (05/06/2025 7:34 PM CDT) Tissue (Amputation non-tramatic) 05/06/2025 7:34 PM [address]Y [facility] - 05/14/2025 10:27 AM CDT EPIC results best viewed via link to PDF [facility] Rufina Mendoza Laboratory [place] [address] Note to Patients: This report may contain [...] Gender: M : 1955 (Age: 70) Address: [address] [place] [address] Hospital #: [id number] Taken:05/06/2025 Received:05/07/2025 Reported: 05/14/2025 Patient Type: [facility] Inpatient Service: Vascular Location: [place] [address] Physician(s): Johnny Velasquez M.D. Diagnosis: Toes, left 3, 4, 5, disarticulation - Skin and soft tissue with ulceration, necrosis, and acute inflammation - Bone with acute and chronic osteomyelitis alpo/05/13/2025 18:04 By this signature, I attest that [...] decalcification. Jar 1. emg/05/07/2025 19:11 PA(s): Sujatha Helton MS, PA ([facility])CM By this signature, I attest that the above diagnosis is based upon my personal examination of the slides(and/or other material). Addenda/Procedures The performance characteristics of some immunohistochemical stains, fluorescence in-situ hybridization tests and immunophenotyping by flow cytometry cited in this report (if any) were determined by the Surgical Pathology and Flow Cytometry Departments at [facility] as part of an ongoing auditor/quality program and in compliance with federally mandated [...] Surgical Pathology and Flow Cytometry Departments of [facility]. It has not been cleared or approved by the U. S. Food and Drug Administration. IMAGES AND SCANNED DOCUMENTS, IF INCLUDED, ONLY VIEWABLE IN PDF VERSION OF REPORT Delilah Adams MD PhD LAB PATHOLOGY ORDERABL ES Final Result Performing Organization Address City/[facility]/ZIP Co de Phone Number PATHOLOGY [facility] IO [address] Floor [place], [place] [phone] * POCT glucose (05/06/2025 6:29 PM CDT) Glucose, POC 102 70 - 199 mg/dL Blood 05/06/2025 6:29 PM CDT 05/06/2025 6:29 PM CDT Delilah Adams MD PhD LAB POCT ORDERABLES - DEVICE Final Result Performing Organization Address [facility] de Phone Number [facility] [place] [address] * SD AN ELECTIVE ENDOTRACHEAL AIRWAY, SD AN PROCEDURE PLACEHOLDER (05/06/2025 6:18 PM CDT) Narrative Sofya Venegas CRNA - 05/06/2025 6:18 PM CDT Sofya Venegas CRNA 05/06/2025 6:18 PM Airway Patient location: OR Urgency: elective Indications for airway management: anesthesia Difficult airway: no Staff: Supervising provider: Linda Arora DO Placed by: [employer]PRESENT[employer]IVE: Sofya Venegas CRNA Emergent airway documentation: Risks [...] stylet Insertion site: oral Video blade type: Roshni Initial cuff pressure: 27 cm H2O Cuff volume: 8 mL ETT to lips: 23 cm Placement verified by: auscultation Airway secured with: silk tape Number of attempts: 1 Linda Arora DO ANESTHESIA ORDERABLES Final Result * SD AN PROCEDURE PLACEHOLDER (05/06/2025 6:17 PM CDT) [...] patient tolerated procedure well with no complications Result [facility] Linda Arora DO ANESTHESIA ORDERABLES Final Result * POCT glucose (05/06/2025 4:31 PM CDT) Glucose, POC 103 70 - 199 mg/dL Blood 05/06/2025 4:31 PM CDT 05/06/2025 4:31 PM CDT Result [facility] Delilah Adams MD PhD LAB POCT ORDERABLES - DEVICE Final Result Performing Organization Address [facility] Co de Phone Number [facility] Department [place] [address] * POCT glucose (05/06/2025 11:48 AM CDT) Glucose, POC 112 70 - 199 mg/dL Blood 05/06/2025 11:4 8 AM CDT 05/06/2025 11:48 AM CDT Delilah Adams MD PhD LAB POCT ORDERABLES - DEVICE Final Result Performing Organization Address [facility] Co de Phone Number [facility] Department [place] [address] * POCT glucose (05/06/2025 7:49 AM CDT) [facility] Glucose, POC 114 70 - 199 mg/dL Blood 05/06/2025 7:49 AM CDT 05/06/2025 7:49 AM CDT Delilah Adams MD PhD LAB POCT ORDERABLES - DEVICE Final Result Performing Organization Address [facility] Co de Phone Number [facility] [place] [address] * (ABNORMAL) eGFR (05/06/2025 12:43 AM CDT) [facility] eGFR 24(L) >=60 mL/min/1. 73 m2 Comment: [...] ORDERABLES F inal Result Performing Organization Address City/[facility]/ZIP Co de Phone Number [facility] Department [place] [address] * Differential, auto (05/06/2025 12:43 AM CDT) Neutrophil abs 3.73 1.50 - 6.50 K/cumm Imm gran abs 0.04 0.00 - 0.10 K/cumm [facility] Lymphocyte abs 1.72 0.80 - 3.30 K/cumm [facility] Monocyte abs 0.40 0.20 - 0.80 K/cumm [facility] Eosinophil abs 0.16 0.00 - 0.50 K/cumm [facility] Basophil abs 0.06 0.00 - 0.10 K/cumm [facility] Neutrophil pct 61.0 % [facility] Comment: Interpretive Data Percent cell count reference ranges are not reported, since discordance with absolute values may lead to misinterpretation of CBC data. Current Interpretive Data was last revised on 2018. Imm gran pct 0.7 % [facility] Comment: Interpretive Data Percent cell count reference ranges are not reported, since discordance with absolute values may lead to misinterpretation of CBC data. Current Interpretive Data was last revised on 2018. Lymphocyte pct 28.2 % [facility] Comment: Interpretive Data Percent cell count reference ranges are not reported, since discordance with absolute values may lead to misinterpretation of CBC data. Current Interpretive Data was last revised on 2018. Monocyte pct 6.5 % [facility] Comment: Interpretive Data Percent cell count reference ranges are not reported, since discordance with absolute values may lead to misinterpretation of CBC data. Current Interpretive Data was last revised on 2018. Eosinophil pct 2.6 % [facility] Comment: Interpretive Data Percent cell count reference ranges are not reported, since discordance with absolute values may lead to misinterpretation of CBC data. Current Interpretive Data was last revised on 2018. Basophil pct 1.0 % [facility] Comment: Interpretive Data Percent cell count reference ranges are not reported, since discordance with absolute values may lead to misinterpretation of CBC data. Current Interpretive Data was last revised on 2018. Blood 05/06/2025 12:4 3 AM CDT 05/06/2025 1:34 AM CDT Delilah Adams MD PhD LAB BLOOD ORDERABLES F inal Result Performing Organization Address [facility] Co de Phone Number [facility] Department [place] [address] * (ABNORMAL) CBC with auto differential (05/06/2025 12:43 AM CDT) [facility] WBC 6.11 3.80 - 9.90 K/cumm Hgb 8.2(L) 13.0 - 17.5 g/dL [facility] Hct 25.5(L) 38.9 - 50.3 % [facility] Plt 289 150 - 400 K/cumm [facility] MPV 9.4 9.1 - 12.3 fL [facility] RBC 3.04(L) 4.30 - 5.80 M/cumm [facility] MCV 83.9 81.3 - 96.4 fL [facility] MCH 27.0(L) 27.1 - 33.3 pg [facility] MCHC 32.2(L) 32.3 - 35.7 g/dL [facility] RDW CV 15.9(H) 11.1 - 14.9 % [facility] RDW SD 48.7(H) 35.7 - 48.1 fL [facility] NRBC abs 0.00 0.00 - 0.01 K/cumm [facility] Blood 05/06/2025 12:4 3 AM CDT 05/06/2025 1:34 AM CDT Delilah Adams MD PhD LAB BLOOD ORDERABLES F inal Result Performing Organization Address City/[facility]/ZIP Co de Phone Number [facility] [place] [address] * (ABNORMAL) aPTT (05/06/2025 12:43 AM CDT) aPTT 86(H) 28 - 38 sec Comment: Interpretive Data Heparin therapeutic range: 66.0 - 100.0 seconds. Range based on correlation with therapeutic heparin activity range of 0.3 - 0.7 Units/mL. Current interpretive data was last revised on 2023. Blood 05/06/2025 12:4 3 AM CDT 05/06/2025 1:42 AM CDT Narrative [facility] - 05/06/2025 1:51 AM CDT STAT PTT [...] ORDERABLES F inal Result Performing Organization Address City/[facility]/ZIP Co de Phone Number [facility] Department [place] [address] * Type and screen (05/06/2025 12:43 AM CDT) Pathologist [facility] Carly, indirect Negative ABO Rh O Positive [facility] Blood 05/06/2025 12:4 3 AM CDT 05/06/2025 1:35 AM CDT Narrative [facility] - 05/06/2025 3:11 AM CDT Has the patient had Daratumumab or Isatuximab in the past 6 months?->Unknown Delilah Adams MD PhD LAB BLOOD BANK TEST OR DERABLES Final Result [facility] [place] [address] * Phosphorus (05/06/2025 12:43 AM CDT) [facility] Phosphorus, pl 4.1 2.3 - 4.5 mg/dL Blood 05/06/2025 12:4 3 AM CDT 05/06/2025 1:34 AM CDT Delilah Adams MD PhD LAB BLOOD ORDERAB[place] [address] * Magnesium (05/06/2025 12:43 AM CDT) [facility] Magnesium 2.3 1.4 - 2.5 mg/dL Blood 05/06/2025 12:4 3 AM CDT 05/06/2025 1:34 AM CDT Delilah Adams MD PhD LAB BLOOD ORDERAB[place] [address] * (ABNORMAL) Basic metabolic panel (05/06/2025 12:43 AM CDT) [facility] [place] Sodium 141 135 - 145 mmol/L Potassium, pl 4.2 3.3 - 4.9 mmol/L [facility] Chloride 105 97 - 110 mmol/L [facility] CO2 25 22 - 32 mmol/L [facility] Anion gap 11 2 - 15 mmol/L [facility] BUN 51(H) 6 - 25 mg/dL [facility] Creatinine 2.71(H) 0.80 - 1.30 mg/dL [facility] Glucose 111 70 - 199 mg/dL [facility] Comment: Interpretive Data Fasting glucose >/= 126 [...] 2022. Calcium 8.7 8.5 - 10.3 mg/dL [facility] Blood 05/06/2025 12:4 3 AM CDT 05/06/2025 1:34 AM CDT Delilah Adams MD PhD LAB BLOOD ORDERABLES F inal Result Performing Organization Address City/[facility]/ZIP Co de Phone Number [facility] [place] [address] * POCT glucose (05/05/2025 8:07 PM CDT) Glucose, POC 183 70 - 199 mg/dL Blood 05/05/2025 8:07 PM CDT 05/05/2025 8:07 PM CDT Delilah Adams MD PhD LAB POCT ORDERABLES - DEVICE Final Result Performing Organization Address City/[facility]/ZIP Co de Phone Number [facility] [place] [address] * (ABNORMAL) aPTT (05/05/2025 6:49 PM CDT) aPTT 95(H) 28 - 38 sec Comment: Interpretive Data Heparin therapeutic range: 66.0 - 100.0 seconds. Range based on correlation with therapeutic heparin activity range of 0.3 - 0.7 Units/mL. Current interpretive data was last revised on 2023. Blood 05/05/2025 6:49 PM CDT 05/05/2025 8:35 PM CDT Narrative [facility] - 05/05/2025 8:45 PM CDT STAT PTT [...] must be drawn peripherally (not from CVC). Result [facility] Delilah Adams MD PhD LAB BLOOD ORDERABLES F inal Result Performing Organization Address City/[facility] Co de Phone Number [facility] Department [place] [address] * POCT glucose (05/05/2025 5:11 PM CDT) Glucose, POC 141 70 - 199 mg/dL Blood 05/05/2025 5:11 PM CDT 05/05/2025 5:11 PM CDT Result [facility] Delilah Adams MD PhD LAB POCT ORDERABLES - DEVICE Final Result Performing Organization Address City/[facility]/ZIP Co de Phone Number [facility] Department [place] [address] * POCT glucose (05/05/2025 11:20 AM CDT) Glucose, POC 114 70 - 199 mg/dL Blood 05/05/2025 11:2 0 AM CDT 05/05/2025 11:20 AM CDT Result [facility] Delilah Adams MD PhD LAB POCT ORDERABLES - DEVICE Final Result Performing Organization Address [facility] Co de Phone Number [facility] [place] [address] * Critical Result Callback Hematology (05/05/2025 10:07 AM CDT) Date Notified [id number] Time Notified 1212 MEERA DAMON TestName aPTT [facility] Called/Read Back Lupe DAMON Credentials RN MEERA DAMON Called By TP MEERA DAMON Blood 05/05/2025 10:0 7 AM CDT 05/05/2025 11:29 AM CDT us Delilah Adams MD PhD LAB BLOOD ORDERABLES F inal Result [facility] Department [place] [address] * (ABNORMAL) aPTT (05/05/2025 10:07 AM CDT) aPTT >150(C) 28 - 38 sec Comment: Verified Interpretive Data Heparin therapeutic range: 66.0 - 100.0 seconds. Range based on correlation with therapeutic heparin activity range of 0.3 - 0.7 Units/mL. Current interpretive data was last revised on 2023. Blood 05/05/2025 10:0 7 AM CDT 05/05/2025 11:29 AM CDT N[address] [facility] - 05/05/2025 12:10 PM CDT STAT PTT [...] ORDERABLES F inal Result Performing Organization Address City/[facility] Co de Phone Number [facility]ERA [facility] [place] [address] * Critical Result Callback Hematology (05/05/2025 8:26 AM CDT) Date Notified [id number] Time Notified 944 [facility] TestName aPTT [facility] Called/Read Back [facility] Credentials RN MEERA DAMON Called By MARIA GUADALUPE DAMON Blood 05/05/2025 8:26 AM CDT 05/05/2025 8:52 AM CDT Delilah Adams MD PhD LAB BLOOD ORDERABLES F inal Result Performing Organization Address [facility] Co de Phone Number [facility] [place] [address] * (ABNORMAL) aPTT (05/05/2025 8:26 AM CDT) Pathologist [facility] aPTT >150(C) 28 - 38 sec Comment: No clot detected in sample Repeated and verified - [id number] - 05/05/25, 9:31 AM Interpretive Data Heparin therapeutic range: 66.0 - 100.0 seconds. Range based on correlation with therapeutic heparin activity range of 0.3 - 0.7 Units/mL. Current interpretive data was last revised on 2023. Blood 05/05/2025 8:26 AM CDT 05/05/2025 8:52 AM CDT Narrative [facility] - 05/05/2025 9:42 AM CDT STAT PTT [...] ORDERABLES F inal Result Performing Organization Address City/[facility] Co de Phone Number [facility] Department [place] [address] * POCT glucose (05/05/2025 7:52 AM CDT) Glucose, POC 90 70 - 199 mg/dL Blood 05/05/2025 7:52 AM CDT 05/05/2025 7:52 AM CDT Delilah Adams MD PhD LAB POCT ORDERABLES - DEVICE Final Result Performing Organization Address [facility] de Phone Number [facility] [place] [address] * (ABNORMAL) aPTT (05/05/2025 12:43 AM CDT) [facility] [place] aPTT 107(H) 28 - 38 sec Comment: Interpretive Data Heparin therapeutic range: 66.0 - 100.0 seconds. Range based on correlation with therapeutic heparin activity range of 0.3 - 0.7 Units/mL. Current interpretive data was last revised on 2023. Blood 05/05/2025 12:4 3 AM CDT 05/05/2025 1:24 AM CDT Narr[address] [facility] - 05/05/2025 1:48 AM CDT STAT PTT [...] ORDERABLES F inal Result Performing Organization Address [facility] Co de Phone Number [facility] [place] [address] * (ABNORMAL) Vancomycin level trough Draw trough 30 minutes prior to 4th dose. (05/04/2025 10:07 PM CDT) Pathologist [facility] Vancomycin trough <4.0(L) 10.0 - 20.0 mcg/mL Blood 05/04/2025 10:0 7 PM CDT 05/04/2025 10:56 PM CDT Narrative [facility] - 05/04/2025 11:26 PM CDT Draw trough 30 minutes prior to 4th dose. Pratik Bal MD LAB BLOOD ORDERABLES Fi nal Result Performing Organization Address [facility] Co de Phone Number [place] [address] * POCT glucose (05/04/2025 7:43 PM CDT) Glucose, POC 118 70 - 199 mg/dL Blood 05/04/2025 7:43 PM CDT 05/04/2025 7:43 PM CDT Delilah Adams MD PhD LAB POCT ORDERABLES - DEVICE Final Result Performing Organization Address [facility] Co de Phone Number [facility] [place] [address] * XR Foot Left 3 or More [...] * POCT glucose (05/04/2025 5:24 PM CDT) [facility] [place] Glucose, POC 113 70 - 199 mg/dL Blood 05/04/2025 5:24 PM CDT 05/04/2025 5:24 PM CDT Result [facility] Delilah Aadms MD PhD LAB POCT ORDERABLES - DEVICE Final Result Performing Organization Address [facility] Co de Phone Number [facility] Department of [place], [place] [id number] * Type and screen (05/04/2025 4:56 PM CDT) [facility] [place] ABO Rh O Positive Carly, indirect Negative [facility] Blood 05/04/2025 4:56 PM CDT 05/04/2025 5:32 PM CDT Narrative [facility] - 05/04/2025 6:21 PM CDT Has the patient had Daratumumab or Isatuximab in the past 6 months?->Unknown Delilah Adams MD PhD LAB BLOOD BANK TEST OR DERABLES Final Result Performing Organization Address City/[facility] Co de Phone Number [facility] [place] [address] * (ABNORMAL) eGFR (05/04/2025 4:40 PM CDT) [facility] [place] eGFR 29(L) >=60 mL/min/1. 73 m2 Comment: [...] PM CDT 05/04/2025 5:37 PM CDT us Delilah Adams MD PhD LAB BLOOD ORDERABLES F inal Result [facility] Department [place] [address] * Differential, auto (05/04/2025 4:40 PM CDT) Pathologist [facility] Neutrophil abs 4.30 1.50 - 6.50 K/cumm Imm gran abs 0.05 0.00 - 0.10 K/cumm [facility] Lymphocyte abs 1.40 0.80 - 3.30 K/cumm [facility] Monocyte abs 0.38 0.20 - 0.80 K/cumm [facility] Eosinophil abs 0.19 0.00 - 0.50 K/cumm [facility] Basophil abs 0.07 0.00 - 0.10 K/cumm [facility] Neutrophil pct 67.3 % [facility] Comment: Interpretive Data Percent cell count reference ranges are not reported, since discordance with absolute values may lead to misinterpretation of CBC data. Current Interpretive Data was last revised on 2018. Imm gran pct 0.8 % [facility] Comment: Interpretive Data Percent cell count reference ranges are not reported, since discordance with absolute values may lead to misinterpretation of CBC data. Current Interpretive Data was last revised on 2018. Lymphocyte pct 21.9 % [facility] Comment: Interpretive Data Percent cell count reference ranges are not reported, since discordance with absolute values may lead to misinterpretation of CBC data. Current Interpretive Data was last revised on 2018. Monocyte pct 5.9 % [facility] Comment: Interpretive Data Percent cell count reference ranges are not reported, since discordance with absolute values may lead to misinterpretation of CBC data. Current Interpretive Data was last revised on 2018. Eosinophil pct 3.0 % [facility] Comment: Interpretive Data Percent cell count reference ranges are not reported, since discordance with absolute values may lead to misinterpretation of CBC data. Current Interpretive Data was last revised on 2018. Basophil pct 1.1 % [facility] Comment: Interpretive Data Percent cell count reference ranges are not reported, since discordance with absolute values may lead to misinterpretation of CBC data. Current Interpretive Data was last revised on 2018. Blood 05/04/2025 4:40 PM CDT 05/04/2025 5:37 PM CDT Pratik Bal MD LAB BLOOD ORDERABLES Fi nal Result [facility] Department [place] [address] * (ABNORMAL) CBC with auto differential (05/04/2025 4:40 PM CDT) WBC 6.39 3.80 - 9.90 K/cumm Hgb 8.8(L) 13.0 - 17.5 g/dL [facility] Hct 28.9(L) 38.9 - 50.3 % [facility] Plt 305 150 - 400 K/cumm [facility] MPV 9.3 9.1 - 12.3 fL [facility] RBC 3.35(L) 4.30 - 5.80 M/cumm [facility] MCV 86.3 81.3 - 96.4 fL [facility] MCH 26.3(L) 27.1 - 33.3 pg [facility] MCHC 30.4(L) 32.3 - 35.7 g/dL [facility] RDW CV 16.2(H) 11.1 - 14.9 % [facility] RDW SD 50.8(H) 35.7 - 48.1 fL [facility] NRBC abs 0.00 0.00 - 0.01 K/cumm [facility] Blood 05/04/2025 4:40 PM CDT 05/04/2025 5:37 PM CDT us Pratik Bal MD LAB BLOOD ORDERABLES Fi nal Result Performing Organization Address [facility] Co de Phone Number [facility] [place] [address] * (ABNORMAL) aPTT (05/04/2025 4:40 PM CDT) [facility] aPTT 43(H) 28 - 38 sec Comment: Interpretive Data Heparin therapeutic range: 66.0 - 100.0 seconds. Range based on correlation with therapeutic heparin activity range of 0.3 - 0.7 Units/mL. Current interpretive data was last revised on 2023. Blood 05/04/2025 4:40 PM CDT 05/04/2025 5:35 PM CDT Narrative [facility] - 05/04/2025 5:57 PM CDT Baseline prior to heparin initiation us Delilah Adams MD PhD LAB BLOOD ORDERABLES F inal Result Performing Organization Address City/[facility]/ZIP Co de Phone Number [place] [address] * (ABNORMAL) Protime-INR (05/04/2025 4:40 PM CDT) Pathologist [facility] PT 20.1(H) 9.7 - 13.0 sec INR 1.84(H) 0.90 - 1.20 [facility] Comment: Interpretive data Oral anticoagulant therapeutic ranges: Venous thromboembolism prophylaxis or treatment: 2.0-3.0 CARDIOLOGY Standard range: 2.0-3.0 High-intensity range: 2.5-3.5 Refer to indication-specific guidelines for appropriate target ranges for prosthetic heart valve replacement. Current interpretive data was last revised on 2019. Blood 05/04/2025 4:40 PM CDT 05/04/2025 5:35 PM CDT Narrative [facility] - 05/04/2025 5:57 PM CDT Baseline prior to heparin initiation Delilah Adams MD PhD LAB BLOOD ORDERABLES F inal Result Performing Organization Address City/[facility]/ZIP Co de Phone Number [facility] [place] [address] * Phosphorus (05/04/2025 4:40 PM CDT) [facility] [place] Phosphorus, pl 3.5 2.3 - 4.5 mg/dL Blood 05/04/2025 4:40 PM CDT 05/04/2025 5:32 PM CDT Pratik Bal MD LAB BLOOD ORDERABLES Fi nal Result [facility] [place] [address] * Magnesium (05/04/2025 4:40 PM CDT) Pathologist [facility] Magnesium 2.2 1.4 - 2.5 mg/dL Blood 05/04/2025 4:40 PM CDT 05/04/2025 5:32 PM CDT Pratik Bal MD LAB BLOOD ORDERABLES Fi nal Result Performing Organization Address [facility]/ZIP Co de Phone Number [facility] [place] [address] * (ABNORMAL) Hemoglobin A1c (05/04/2025 4:40 PM CDT) Pathologist [facility] Hgb A1C 6.2(H) 4.0 - 5.6 % Estimated Average Glucose 131 mg/dL [facility] Comment: The ADA recommends reporting an estimated Average Glucose (eAG) with all Hemoglobin A1c results using the equation derived from a study of 507 normal and diabetic adults. Minority populations were underrepresented and children were not included. (Diabetes Care 2020; 43(S1): S66-S76). The eAG is not equivalent to a fasting glucose. Blood 05/04/2025 4:40 PM CDT 05/04/2025 5:42 PM CDT Narrative [facility] - 05/05/2025 8:17 AM CDT Reflex Delilah Adams MD PhD LAB BLOOD ORDERABLES F inal Result Performing Organization Address [facility] Co de Phone Number [facility] [place] [address] * (ABNORMAL) Basic metabolic panel (05/04/2025 4:40 PM CDT) [facility] Sodium 137 135 - 145 mmol/L Potassium, pl 4.7 3.3 - 4.9 mmol/L [facility] Comment:Hemolyzed; Potassium value may be falsely elevated by as much as 0.3-0.5 mmol/L. Suggest redraw and reanalysis. Chloride 102 97 - 110 mmol/L [facility] CO2 25 22 - 32 mmol/L [facility] Anion gap 10 2 - 15 mmol/L [facility] BUN 41(H) 6 - 25 mg/dL [facility] Creatinine 2.31(H) 0.80 - 1.30 mg/dL [facility] Glucose 110 70 - 199 mg/dL [facility] Comment: Interpretive Data Fasting glucose >/= 126 [...] 2022. Calcium 8.7 8.5 - 10.3 mg/dL [facility] Blood 05/04/2025 4:40 PM CDT 05/04/2025 5:32 PM CDT Delilah Adams MD PhD LAB BLOOD ORDERABLES F inal Result [facility] Department of Laboratories [place] [id number] * US Arterial Doppler Lower Extremity Bilateral (05/01/2025 9:08 AM CDT) Anatomical Region Laterality Modality Vascular Bilateral Ultrasound 05/01/2025 8:19 AM CDT Narrative 05/01/2025 8:54 PM CDT [facility] - Department of Vascular Surgery, Vascular Laboratory [address] [place] [id number] Lower Extremity Arterial Doppler Report Patient Name: GREGORY KAT : 1955 Study Date: 05/01/2025 8:19:00 AM Gender: M Tech: Haydee Hills RDMS,T Location: [facility] Ref Provider: DELILAH ADAMS Quality: Technically difficult Order Provider: DELILAH ADAMS PROCEDURES: Arterial Report: Bilateral lower extremity arterial Doppler exam at rest. INDICATIONS: Z48.812 Encounter for surgical aftercare following surgery on the circulatory system and I73.9 Peripheral vascular disease, unspecified. MEASUREMENTS: Right Value Units Left Value Units Rt Brachial Pressure 153 mmHg Lt Brachial Pressure 157 mmHg Rt TOOLROOM CLERK Pressure >255 mmHg Lt TOOLROOM CLERK Pressure >255 mmHg Rt DPA Pressure >255 mmHg Lt DPA Pressure >255 mmHg Rt 1st Digit Pressure 97 mmHg Lt 1st Digit Pressure 27 mmHg Rt PT ISACC Resting N/C Lt PT ISACC Resting N/C Rt AT ISACC Resting N/C Lt AT ISACC Resting N/C Rt Digit/Arm Index 0.62 Lt Digit/Arm Index 0.17 Right Value Units Left Value Units FINDINGS: Performing Refractory Tile Helper: Haydee Mcdermott, SAMMI, RVT. Right Common Femoral Artery Analysis: The [...] above. Electronically Signed By: Jitendra Estrada MD [facility] [phone] 05/01/2025 8:40:32 PM CDT Procedure Note Jitendra Estrada MD - 05/01/2025 [facility] - Department of Vascular Surgery,Vascular Laboratory [address] [place] [address] Lower Extremity Arterial Doppler Report Patient Name: GREGORY KAT : 1955 Study Date: 05/01/2025 8:19:00 AM Gender: M Tech: Haydee Hills [facility],T Location: [facility] Ref Provider: DELILAH ADAMS Quality: Technically difficult Order Provider: DELILAH ADAMS PROCEDURES: Arterial Report: Bilateral lower extremity arterial Doppler exam at rest. INDICATIONS: Z48.812 Encounter for surgical aftercare following surgery on thecirculatory system and I73.9 Peripheral vascular disease, unspecified. MEASUREMENTS: Right Value Units Left Value Units Rt Brachial Pressure 153 mmHg Lt Brachial Pressure 157 mmHg Rt TOOLROOM CLERK Pressure >255 mmHg Lt TOOLROOM CLERK Pressure >255 mmHg Rt DPA Pressure >255 mmHg Lt DPA Pressure >255 mmHg Rt 1st Digit Pressure 97 mmHg Lt 1st Digit Pressure 27 mmHg Rt PT ISACC Resting N/C Lt PT ISACC Resting N/C Rt AT ISACC Resting N/C Lt AT ISACC Resting N/C Rt Digit/Arm Index 0.62 Lt Digit/Arm Index 0.17 Right Value Units Left Value Units FINDINGS: Performing Refractory Tile Helper: Haydee Mcdermott, SAMMI, RVT. Right Common Femoral Artery Analysis: The [...] - FEMORAL ARTERY, BILATERAL LOWER EXTREMITY ANGIOGRAM, [id number] (Left) AMPUTATION TOE (Left)- 02/26/2025. PREVIOUS STUDIES: [...] above. Electronically Signed By: Jitendra Estrada MD [facility] [phone] 05/01/2025 8:40:32 PM CDT Result [facility] Delilah Adams MD PhD IMG US PROCEDURES Magda l Result * Cardiology Document Scan (04/15/2025 5:02 PM CDT) Anatomical Region Laterality Modality Other Oliver Sanchez MD CV CARDIAC SERVICES PROCEDURES F inal Result * POCT glucose (03/02/2025 11:49 AM CDT) Glucose, POC 169 70 - 199 mg/dL Blood 03/02/2025 11:4 9 AM CDT 03/02/2025 11:49 AM CDT Delilah Adams MD PhD LAB POCT ORDERABLES - DEVICE Final Result [facility] Department [place] [address] * POCT glucose (03/02/2025 7:59 AM CDT) Glucose, POC 111 70 - 199 mg/dL Blood 03/02/2025 7:59 AM CDT 03/02/2025 7:59 AM CDT Delilah Adams MD PhD LAB POCT ORDERABLES - DEVICE Final Result Performing Organization Address [facility] Co de Phone Number [facility] [place] [address] * Potassium, whole blood (03/01/2025 11:23 PM CDT) Potassium, bld 4.9 3.3 - 4.9 mmol/L Blood 03/01/2025 11:2 3 PM CDT 03/01/2025 11:33 PM CDT Светлана Stoll MANUSCRIPT READER LAB BLOOD ORDERABLES Final Result Performing Organization Address [facility] Co de Phone Number [facility] [place] [address] * POCT glucose (03/01/2025 7:23 PM CDT) Glucose, POC 189 70 - 199 mg/dL Blood 03/01/2025 7:23 PM CDT 03/01/2025 7:23 PM CDT Delilah Adams MD PhD LAB POCT ORDERABLES - DEVICE Final Result Performing Organization Address [facility] Co de Phone Number [facility] [place] [address] * POCT glucose (03/01/2025 5:34 PM CDT) Glucose, POC 138 70 - 199 mg/dL Blood 03/01/2025 5:34 PM CDT 03/01/2025 5:34 PM CDT Delilah Adams MD PhD LAB POCT ORDERABLES - DEVICE Final Result Performing Organization Address City/[facility] Co de Phone Number [facility] [place] [address] * POCT glucose (03/01/2025 11:46 AM CDT) Glucose, POC 133 70 - 199 mg/dL Blood 03/01/2025 11:4 6 AM CDT 03/01/2025 11:46 AM CDT Delilah Adams MD PhD LAB POCT ORDERABLES - DEVICE Final Result Performing Organization Address [facility] Co de Phone Number [facility] [place] [address] * POCT glucose (03/01/2025 7:24 AM CDT) Glucose, POC 141 70 - 199 mg/dL Blood 03/01/2025 7:24 AM CDT 03/01/2025 7:24 AM CDT Delilah Adams MD PhD LAB POCT ORDERABLES - DEVICE Final Result Performing Organization Address [facility] Co de Phone Number [facility] [place] [address] * Potassium, whole blood (02/28/2025 11:35 PM CDT) Potassium, bld 4.7 3.3 - 4.9 mmol/L Blood 02/28/2025 11:3 5 PM CDT 02/28/2025 11:51 PM CDT Светлана Stoll MANUSCRIPT READER LAB BLOOD ORDERABLES Final Result Performing Organization Address City/[facility] Co de Phone Number [facility] [place] [address] * (ABNORMAL) eGFR (02/28/2025 11:35 PM CDT) [facility] eGFR 32(L) >=60 mL/min/1. 73 m2 Comment: [...] PhD LAB BLOOD ORDERABLES F inal Result [facility] [place] [address] * (ABNORMAL) CBC without differential (02/28/2025 11:35 PM CDT) [facility] WBC 10.60(H) 3.80 - 9.90 K/cumm Hgb 9.0(L) 13.0 - 17.5 g/dL [facility] Hct 29.3(L) 38.9 - 50.3 % [facility] Plt 274 150 - 400 K/cumm [facility] MPV 9.5 9.1 - 12.3 fL [facility] RBC 3.41(L) 4.30 - 5.80 M/cumm [facility] MCV 85.9 81.3 - 96.4 fL [facility] MCH 26.4(L) 27.1 - 33.3 pg [facility] MCHC 30.7(L) 32.3 - 35.7 g/dL [facility] RDW CV 15.5(H) 11.1 - 14.9 % [facility] RDW SD 48.3(H) 35.7 - 48.1 fL [facility] NRBC abs 0.00 0.00 - 0.01 K/cumm [facility] Blood 02/28/2025 11:3 5 PM CDT 03/01/2025 12:12 AM CDT Delilah Adams MD PhD LAB BLOOD ORDERABLES F inal Result Performing Organization Address City/[facility] Co de Phone Number [facility] [place] [address] * Phosphorus (02/28/2025 11:35 PM CDT) Phosphorus, pl 4.1 2.3 - 4.5 mg/dL Blood 02/28/2025 11:3 5 PM CDT 03/01/2025 12:12 AM CDT Delilah Adams MD PhD LAB BLOOD ORDERABLES F inal Result Performing Organization Address City/[facility] Co de Phone Number [facility] [place] [address] * Magnesium (02/28/2025 11:35 PM CDT) Magnesium 2.3 1.4 - 2.5 mg/dL Blood 02/28/2025 11:3 5 PM CDT 03/01/2025 12:12 AM CDT Delilah Adams MD PhD LAB BLOOD ORDERABLES F inal Result Performing Organization Address City/[facility]/ZIP Co de Phone Number [facility] Department [place] [address] * (ABNORMAL) Basic metabolic panel (02/28/2025 11:35 PM CDT) Sodium 140 135 - 145 mmol/L Potassium, pl 4.8 3.3 - 4.9 mmol/L [facility] Chloride 107 97 - 110 mmol/L [facility] CO2 23 22 - 32 mmol/L [facility] Anion gap 10 2 - 15 mmol/L [facility] BUN 46(H) 6 - 25 mg/dL [facility] Creatinine 2.15(H) 0.80 - 1.30 mg/dL [facility] Glucose 153 70 - 199 mg/dL [facility] Comment: Interpretive Data Fasting glucose >/= 126 [...] 2022. Calcium 8.6 8.5 - 10.3 mg/dL [facility] Blood 02/28/2025 11:3 5 PM CDT 03/01/2025 12:12 AM CDT us Delilah Adams MD PhD LAB BLOOD ORDERABLES F inal Result [facility] [place] [address] * XR Abdomen Ap 1 Vw (02/28/2025 [...] Electronically signed by: Marlene Saenz M.D. Result [facility] Delilah Adams MD PhD IMG XR PROCEDURES Magda l Result * POCT glucose (02/28/2025 7:12 PM CDT) Glucose, POC 175 70 - 199 mg/dL Blood 02/28/2025 7:12 PM CDT 02/28/2025 7:12 PM CDT Delilah Adams MD PhD LAB POCT ORDERABLES - DEVICE Final Result Performing Organization Address City/State/[facility] Co de Phone Number [facility] Department [place] [address] * (ABNORMAL) POCT glucose (02/28/2025 4:39 PM CDT) Glucose, POC 200(H) 70 - 199 mg/dL Blood 02/28/2025 4:39 PM CDT 02/28/2025 4:39 PM CDT Delilah Adams MD PhD LAB POCT ORDERABLES - DEVICE Final Result Performing Organization Address City/[facility] Co de Phone Number [facility] [place] [address] * POCT glucose (02/28/2025 11:39 AM CDT) Glucose, POC 143 70 - 199 mg/dL Blood 02/28/2025 11:3 9 AM CDT 02/28/2025 11:39 AM CDT us Delilah Adams MD PhD LAB POCT ORDERABLES - DEVICE Final Result Performing Organization Address [facility] Co de Phone Number [facility] [place] [address] * POCT glucose (02/28/2025 7:33 AM CDT) Glucose, POC 125 70 - 199 mg/dL Blood 02/28/2025 7:33 AM CDT 02/28/2025 7:33 AM CDT Delilah Adams MD PhD LAB POCT ORDERABLES - DEVICE Final Result Performing Organization Address [facility] de Phone Number [facility] [place] [address] * (ABNORMAL) aPTT (02/28/2025 6:02 AM CDT) aPTT 42(H) 28 - 38 sec Comment: Interpretive Data Heparin therapeutic range: 66.0 - 100.0 seconds. Range based on correlation with therapeutic heparin activity range of 0.3 - 0.7 Units/mL. Current interpretive data was last revised on 2023. Blood 02/28/2025 6:02 AM CDT 02/28/2025 6:48 AM CDT Narrative [facility] - 02/28/2025 7:10 AM CDT STAT PTT [...] PhD LAB BLOOD ORDERABLES F inal Result [facility] Department [place] [address] * Potassium, whole blood (02/27/2025 8:15 PM CDT) [facility] Potassium, bld 4.9 3.3 - 4.9 mmol/L Blood 02/27/2025 8:15 PM CDT 02/27/2025 8:28 PM CDT Светлана Stoll MANUSCRIPT READER LAB BLOOD ORDERABLES Final Result Performing Organization Address City/[facility]/ZIP Co de Phone Number [facility] Department [place] [address] * (ABNORMAL) eGFR (02/27/2025 8:15 PM CDT) [facility] eGFR 31(L) >=60 mL/min/1. 73 m2 Comment: [...] 8:15 PM CDT 02/27/2025 8:37 PM CDT us Delilah Adams MD PhD LAB BLOOD ORDERABLES F inal Result [facility] Department [place] [address] * (ABNORMAL) aPTT (02/27/2025 8:15 PM CDT) aPTT 136(H) 28 - 38 sec Comment: No clot detected in sample Repeated and verified - [id number] - 02/27/25, 9:08 PM Interpretive Data Heparin therapeutic range: 66.0 - 100.0 seconds. Range based on correlation with therapeutic heparin activity range of 0.3 - 0.7 Units/mL. Current interpretive data was last revised on 2023. Blood 02/27/2025 8:15 PM CDT 02/27/2025 8:39 PM CDT Narrative [facility] - 02/27/2025 9:09 PM CDT STAT PTT [...] ORDERABLES F inal Result Performing Organization Address City/[facility]/ZIP Co de Phone Number [facility] Department [place] [address] * (ABNORMAL) CBC without differential (02/27/2025 8:15 PM CDT) Pathologist [facility] WBC 10.03(H) 3.80 - 9.90 K/cumm Hgb 9.3(L) 13.0 - 17.5 g/dL [facility] Hct 30.2(L) 38.9 - 50.3 % [facility] Plt 252 150 - 400 K/cumm [facility] MPV 9.6 9.1 - 12.3 fL [facility] RBC 3.53(L) 4.30 - 5.80 M/cumm [facility] MCV 85.6 81.3 - 96.4 fL [facility] MCH 26.3(L) 27.1 - 33.3 pg [facility] MCHC 30.8(L) 32.3 - 35.7 g/dL [facility] RDW CV 15.5(H) 11.1 - 14.9 % [facility] RDW SD 47.4 35.7 - 48.1 fL [facility] NRBC abs 0.00 0.00 - 0.01 K/cumm [facility] Blood 02/27/2025 8:15 PM CDT 02/27/2025 8:37 PM CDT Delilah Adams MD PhD LAB BLOOD ORDERABLES F inal Result [facility] Department [place] [address] * Phosphorus (02/27/2025 8:15 PM CDT) Pathologist [facility] Phosphorus, pl 3.9 2.3 - 4.5 mg/dL Blood 02/27/2025 8:15 PM CDT 02/27/2025 8:37 PM CDT Delilah Adams MD PhD LAB BLOOD ORDERABLES F inal Result [facility] Department [place] [address] * Magnesium (02/27/2025 8:15 PM CDT) [facility] Magnesium 2.4 1.4 - 2.5 mg/dL Blood 02/27/2025 8:15 PM CDT 02/27/2025 8:37 PM CDT Delilah Adams MD PhD LAB BLOOD ORDERABLES F inal Result Performing Organization Address [facility] de Phone Number [facility] Department [place] [address] * (ABNORMAL) Basic metabolic panel (02/27/2025 8:15 PM CDT) [facility] Sodium 137 135 - 145 mmol/L Potassium, pl 5.0(H) 3.3 - 4.9 mmol/L [facility] Chloride 107 97 - 110 mmol/L [facility] CO2 21(L) 22 - 32 mmol/L [facility] Anion gap 9 2 - 15 mmol/L [facility] BUN 41(H) 6 - 25 mg/dL [facility] Creatinine 2.18(H) 0.80 - 1.30 mg/dL [facility] Glucose 152 70 - 199 mg/dL [facility] Comment: Interpretive Data Fasting glucose >/= 126 [...] 2022. Calcium 8.4(L) 8.5 - 10.3 mg/dL [facility] Blood 02/27/2025 8:15 PM CDT 02/27/2025 8:37 PM CDT Delilah Adams MD PhD LAB BLOOD ORDERABLES F inal Result [facility] [place] [address] * POCT glucose (02/27/2025 8:09 PM CDT) Glucose, POC 157 70 - 199 mg/dL Blood 02/27/2025 8:09 PM CDT 02/27/2025 8:09 PM CDT Delilah Adams MD PhD LAB POCT ORDERABLES - DEVICE Final Result Performing Organization Address City/[facility] Co de Phone Number [facility] [place] [address] * POCT glucose (02/27/2025 4:08 PM CDT) Glucose, POC 163 70 - 199 mg/dL Blood 02/27/2025 4:08 PM CDT 02/27/2025 4:08 PM CDT Delilah Adams MD PhD LAB POCT ORDERABLES - DEVICE Final Result Performing Organization Address City/[facility] Co de Phone Number [facility] [place] [address] * (ABNORMAL) aPTT (02/27/2025 12:19 PM CDT) aPTT 41(H) 28 - 38 sec Comment: Interpretive Data Heparin therapeutic range: 66.0 - 100.0 seconds. Range based on correlation with therapeutic heparin activity range of 0.3 - 0.7 Units/mL. Current interpretive data was last revised on 2023. Blood 02/27/2025 12:1 9 PM CDT 02/27/2025 12:52 PM CDT Narrative [facility] - 02/27/2025 1:16 PM CDT STAT PTT [...] ORDERABLES F inal Result Performing Organization Address City/[facility]/ZIP Co de Phone Number [facility] [place] [address] * (ABNORMAL) Potassium (02/27/2025 12:19 PM CDT) [facility] Potassium, pl 5.0(H) 3.3 - 4.9 mmol/L Blood 02/27/2025 12:1 9 PM CDT 02/27/2025 12:46 PM CDT Narrative [facility] - 02/27/2025 1:20 PM CDT Provider to discontinue after two normal results. Delilah Adams MD PhD LAB BLOOD ORDERABLES F inal Result [facility] [place] [address] * POCT glucose (02/27/2025 11:07 AM CDT) Pathologist [facility] Glucose, POC 102 70 - 199 mg/dL Blood 02/27/2025 11:0 7 AM CDT 02/27/2025 11:07 AM CDT Delilah Adams MD PhD LAB POCT ORDERABLES - DEVICE Final Result Performing Organization Address City/[facility]/ZIP Co de Phone Number [facility] [place] [address] * (ABNORMAL) Potassium (02/27/2025 9:21 AM CDT) [facility] Potassium, pl 5.1(H) 3.3 - 4.9 mmol/L Blood 02/27/2025 9:21 AM CDT 02/27/2025 9:45 AM CDT Narrative [facility] - 02/27/2025 10:08 AM CDT Provider to discontinue after two normal results. Delilah Adams MD PhD LAB BLOOD ORDERABLES F inal Result Performing Organization Address City/[facility] Co de Phone Number [facility] [place] [address] * ECG 12 lead (02/27/2025 9:09 AM CDT) [facility] Ventricular Rate EKG/Min 78 BPM [facility] Atrial Rate 78 BPM [facility] SD-Interval (MSEC) 300 ms [facility] QRS-Interval (MSEC) 116 ms [facility] QT-Interval (MSEC) 450 ms [facility] QTc 513 ms [facility] P [place] 39 degrees [facility] R [place] 101 degrees [facility] T [place] 78 degrees [facility] Diagnosis Atrial-paced rhythm with prolonged AV conduction Low voltage QRS Right bundle branch block T wave abnormality, consider lateral ischemia Abnormal ECG When compared with ECG of 26-FEB-2025 23:03, (unconfirmed) QT has lengthened Confirmed by JAMARI EDWARDS M.D ([id number]) on 02/28/2025 8:33:08 AM [facility] 02/27/2025 9:09 AM CDT 02/28/2025 8:33 AM CDT us Светлана Stoll MANUSCRIPT READER ECG ORDERABLES Final Result Performing Organization Address City/[facility]/ZIP Co de Phone Number [facility] * POCT glucose (02/27/2025 7:28 AM CDT) Glucose, POC 116 70 - 199 mg/dL Blood 02/27/2025 7:28 AM CDT 02/27/2025 7:28 AM CDT Delilah Adams MD PhD LAB POCT ORDERABLES - DEVICE Final Result Performing Organization Address City/[facility] Co de Phone Number [facility] [place] [address] * (ABNORMAL) aPTT (02/27/2025 4:38 AM CDT) aPTT 53(H) 28 - 38 sec Comment: Interpretive Data Heparin therapeutic range: 66.0 - 100.0 seconds. Range based on correlation with therapeutic heparin activity range of 0.3 - 0.7 Units/mL. Current interpretive data was last revised on 2023. Blood 02/27/2025 4:38 AM CDT 02/27/2025 5:33 AM CDT Narrative [facility] - 02/27/2025 6:00 AM CDT STAT PTT [...] must be drawn peripherally (not from CVC). Result [facility] Delilah Adams MD PhD LAB BLOOD ORDERABLES F inal Result Performing Organization Address City/[facility] Co de Phone Number [facility] [place] [address] * (ABNORMAL) Potassium (02/27/2025 4:38 AM CDT) Potassium, pl 5.4(H) 3.3 - 4.9 mmol/L Blood 02/27/2025 4:38 AM CDT 02/27/2025 5:43 AM CDT Narrative [facility] - 02/27/2025 6:18 AM CDT Provider to discontinue after two normal results. Delilah Adams MD PhD LAB BLOOD ORDERABLES F inal Result Performing Organization Address [facility] Co de Phone Number [facility] [place] [address] * (ABNORMAL) Potassium, whole blood (02/27/2025 12:06 AM CDT) [facility] Potassium, bld 5.3(H) 3.3 - 4.9 mmol/L Comment:Reviewed. Blood 02/27/2025 12:0 6 AM CDT 02/27/2025 12:33 AM CDT Result [facility] Delilah Adams MD PhD LAB BLOOD ORDERABLES F inal Result Performing Organization Address City/[facility]/ZIP Co de Phone Number [facility] [place] [address] * ECG 12 lead (02/26/2025 11:03 PM CDT) [facility] Ventricular Rate EKG/Min 70 BPM [facility] Atrial Rate 70 BPM [facility] SD-Interval (MSEC) 318 ms [facility] QRS-Interval (MSEC) 120 ms [facility] QT-Interval (MSEC) 428 ms [facility] QTc 462 ms [facility] P [place] 23 degrees [facility] R [place] 81 degrees [facility] T [place] 51 degrees [facility] Diagnosis Atrial-paced rhythm with prolonged AV conduction Right bundle branch block Abnormal ECG When compared with ECG of 16-FEB-2025 00:21, No significant change was found Confirmed by NEGRO LYNN M.D ([id number]) on 02/27/2025 4:30:40 PM [facility] 02/26/2025 11:0 3 PM CDT 02/27/2025 4:30 PM CDT Delilah Adams MD PhD ECG ORDERABLES Final Result [facility] * (ABNORMAL) eGFR (02/26/2025 9:44 PM CDT) Pathologist [facility] eGFR 42(L) >=60 mL/min/1. 73 m2 Comment: [...] 9:44 PM CDT 02/26/2025 9:55 PM CDT Result [facility] Delilah Adams MD PhD LAB BLOOD ORDERABLES F inaclaire Result Performing Organization Address [facility] Co de Phone Number [facility] [place] [address] * aPTT (02/26/2025 9:44 PM CDT) Pathologist [facility] aPTT 33 28 - 38 sec Comment: Interpretive Data Heparin therapeutic range: 66.0 - 100.0 seconds. Range based on correlation with therapeutic heparin activity range of 0.3 - 0.7 Units/mL. Current interpretive data was last revised on 2023. Blood 02/26/2025 9:44 PM CDT 02/26/2025 9:54 PM CDT Narrative [facility] - 02/26/2025 10:36 PM CDT STAT PTT [...] ORDERABLES F inal Result Performing Organization Address [facility]/ZIP Co de Phone Number [facility] [place] [address] * (ABNORMAL) CBC without differential (02/26/2025 9:44 PM CDT) [facility] WBC 10.56(H) 3.80 - 9.90 K/cumm Hgb 9.6(L) 13.0 - 17.5 g/dL [facility] Hct 31.6(L) 38.9 - 50.3 % [facility] Plt 260 150 - 400 K/cumm [facility] MPV 9.3 9.1 - 12.3 fL [facility] RBC 3.70(L) 4.30 - 5.80 M/cumm [facility] MCV 85.4 81.3 - 96.4 fL [facility] MCH 25.9(L) 27.1 - 33.3 pg [facility] MCHC 30.4(L) 32.3 - 35.7 g/dL [facility] RDW CV 15.0(H) 11.1 - 14.9 % [facility] RDW SD 46.2 35.7 - 48.1 fL [facility] NRBC abs 0.02(H) 0.00 - 0.01 K/cumm [facility] Blood 02/26/2025 9:44 PM CDT 02/26/2025 9:55 PM CDT Delilah Adams MD PhD LAB BLOOD ORDERABLES F inal Result [facility] [place] [address] * Phosphorus (02/26/2025 9:44 PM CDT) Pathologist [facility] Phosphorus, pl 3.9 2.3 - 4.5 mg/dL Blood 02/26/2025 9:44 PM CDT 02/26/2025 9:55 PM CDT Delilah Adams MD PhD LAB BLOOD ORDERABLES F inal Result [facility] [place] [address] * (ABNORMAL) Magnesium (02/26/2025 9:44 PM CDT) Pathologist [facility] Magnesium 2.6(H) 1.4 - 2.5 mg/dL Blood 02/26/2025 9:44 PM CDT 02/26/2025 9:55 PM CDT Delilah Adams MD PhD LAB BLOOD ORDERABLES F inal Result Performing Organization Address [facility]/ZIP Co de Phone Number [facility] Department [place] [address] * (ABNORMAL) Basic metabolic panel (02/26/2025 9:44 PM CDT) [facility] Sodium 139 135 - 145 mmol/L Potassium, pl 5.5(H) 3.3 - 4.9 mmol/L [facility] Chloride 108 97 - 110 mmol/L [facility] CO2 22 22 - 32 mmol/L [facility] Anion gap 9 2 - 15 mmol/L [facility] BUN 37(H) 6 - 25 mg/dL [facility] Creatinine 1.71(H) 0.80 - 1.30 mg/dL [facility] Glucose 171 70 - 199 mg/dL [facility] Comment: Interpretive Data Fasting glucose >/= 126 [...] 2022. Calcium 8.7 8.5 - 10.3 mg/dL [facility] Blood 02/26/2025 9:44 PM CDT 02/26/2025 9:55 PM CDT Delilah Adams MD PhD LAB BLOOD ORDERABLES F inal Result Performing Organization Address [facility] Co de Phone Number [facility] [place] [address] * POCT glucose (02/26/2025 7:17 PM CDT) Glucose, POC 194 70 - 199 mg/dL Blood 02/26/2025 7:17 PM CDT 02/26/2025 7:17 PM CDT us Delilah Adams MD PhD LAB POCT ORDERABLES - DEVICE Final Result [facility] [place] [address] * XR Abdomen Ap 1 Vw (02/26/2025 [...] imaged. Electronically signed by: Hung Wang M.D. us Delilah Adams MD PhD IMG XR PROCEDURES Magda l Result * Transfuse RBC (02/26/2025 5:36 PM CDT) Blood us Delilah Adams MD PhD BLOOD TRANSFUSION ORDE CIARA Final Result Performing Organization Address City/[facility]/ZIP Co de Phone Number [facility] [place] [address] * POCT glucose (02/26/2025 5:04 PM CDT) Glucose, POC 141 70 - 199 mg/dL Blood 02/26/2025 5:04 PM CDT 02/26/2025 5:04 PM CDT Delilah Adams MD PhD LAB POCT ORDERABLES - DEVICE Final Result Performing Organization Address [facility] [place] [address] * Prepare RBC: 1 Units (02/26/2025 1:34 PM CDT) [facility] Product code [id number] Unit Number [id number] [facility] Product Blood Type OPOS [facility] Dispense Status PRESUMED TRANSFUSED [facility] Blood 02/26/2025 1:34 PM CDT 02/26/2025 1:34 PM CDT Narrative [facility] - 02/27/2025 6:00 AM CDT Are special requirements needed? (All products are leukoreduced and CMV- safe)- >No Date required:-[id number] [facility] # of [id number] Reasons:-Cardiovascular disease, Hgb <8 g/dL} Rox Choi NP BLOOD BANK PRODUCT O RDERABLES Final Result Performing Organization Address City/[facility] Co de Phone Number [facility] [place] [address] * POCT glucose (02/26/2025 11:57 AM CDT) Glucose, POC 147 70 - 199 mg/dL Blood 02/26/2025 11:5 7 AM CDT 02/26/2025 11:57 AM CDT Delilah Adams MD PhD LAB POCT ORDERABLES - DEVICE Final Result Performing Organization Address [facility] Co de Phone Number [facility] [place] [address] * ANGIOGRAM (02/26/2025 11:22 AM CDT) Anatomical Region Laterality Modality X-Ray Angiograph y Narrative 02/26/2025 1:14 PM CDT Please see OpNote for result. Delilah Adams MD PhD SURGICAL CASE ORDERS F inal Result * AMPUTATION TOE (02/26/2025 11:22 AM CDT) Anatomical Region Laterality Modality X-Ray Angiograph y Narrative 02/26/2025 1:14 PM CDT Please see OpNote for result. Result [facility] Delilah Adams MD PhD CV CARDIAC CATH PROCED URES Final Result * FL Fluoroscopy < 1 Hour (02/26/2025 11:16 AM CDT) Narrative [facility] - 02/26/2025 11:18 AM CDT The images from this study are not interpreted by Radiology. Please refer to the physician's procedure / OR operative note. Delilah Adams MD PhD IMG FLUOROSCOPY PROCED URES Final Result Performing Organization Address [facility]/ZIP Co de Phone Number [email or web address] * Surgical pathology (02/26/2025 10:37 AM CDT) Tissue (Amputation non-tramatic) 02/26/2025 10:37 AM CDT Tissue specimen (specimen) (Amputation non-tramatic) 02/26/2025 10:40 AM CDT [address]ative [facility] - 03/05/2025 3:23 PM CDT EPIC results best viewed via link to PDF [facility] Rufina Mendo[facility] [place] [address] Note to Patients: This report may contain [...] Gender: M : 1955 (Age: 70) Address: [address] [place] [address] Hospital #: [id number] Taken:02/26/2025 Received:02/26/2025 Reported: 03/05/2025 Patient Type: [facility] Inpatient Service: Vascular Location: [place] [address] Physician(s): Johnny Velasquez M.D. Diagnosis: A. Toe, left 3rd toe, amputation - Acute osteomyelitis, not present at margin - Ulcer B. Toe, left 4th toe, amputation - Acute osteomyelitis, not present at margin - Ulcer ma/03/05/2025 13:03 By this signature, I attest that [...] The bone segment margin is inked blue. Oven Unloader sections are submitted in cassette A1 (toe) [...] The bone margin is inked blue. A agricultural sales representative longitudinal section is submitted in cassette B1 after decalcification. Jar 1. behu/02/27/2025 11:20 PA(s): Rena Dempsey MS, [facility])CM By this signature, I attest that the above diagnosis is based upon my personal examination of the slides(and/or other material). Addenda/Procedures The performance characteristics of some immunohistochemical stains, fluorescence in-situ hybridization tests and immunophenotyping by flow cytometry cited in this report (if any) were determined by the Surgical Pathology and Flow Cytometry Departments at [facility] as part of an ongoing auditor/quality program and in compliance with federally mandated [...] Surgical Pathology and Flow Cytometry Departments of [facility]. It has not been cleared or approved by the U. [place]. Food and Drug Administration. IMAGES AND SCANNED DOCUMENTS, IF INCLUDED, ONLY VIEWABLE IN PDF VERSION OF REPORT Delilah Adams MD PhD LAB PATHOLOGY ORDERABL ES Final Result Performing Organization Address [facility]/ZIP Co de Phone Number PATHOLOGY [facility] [address] Floor [place], [place] [phone] * (ABNORMAL) POCT Activated clotting time, low range (02/26/2025 10:06 AM CDT) ACT 265(H) 123 - 168 sec POC Performer [id number] [facility] POC Device Number [id number] [facility] Blood 02/26/2025 10:0 6 AM CDT 02/26/2025 10:06 AM CDT Delilah Adams MD PhD LAB POCT ORDERABLES - DEVICE Final Result Performing Organization Address [facility] Co de Phone Number [facility] Department [place] [address] * POCT glucose (02/26/2025 10:03 AM CDT) Glucose, POC 161 70 - 199 mg/dL Blood 02/26/2025 10:0 3 AM CDT 02/26/2025 10:03 AM CDT Delilah Adams MD PhD LAB POCT ORDERABLES - DEVICE Final Result Performing Organization Address City/[facility] Co de Phone Number [facility] [place] [address] * (ABNORMAL) POCT Activated clotting time, low range (02/26/2025 9:30 AM CDT) ACT 207(H) 123 - 168 sec POC Performer [id number] [facility] POC Device Number [id number] [facility] Blood 02/26/2025 9:30 AM CDT 02/26/2025 9:30 AM CDT Delilah Adams MD PhD LAB POCT ORDERABLES - DEVICE Final Result Performing Organization Address [facility] de Phone Number [facility] [place] [address] * (ABNORMAL) eGFR (02/26/2025 7:11 AM CDT) [facility] eGFR 44(L) >=60 mL/min/1. 73 m2 Comment: [...] 7:11 AM CDT 02/26/2025 7:35 AM CDT us Delilah Adams MD PhD LAB BLOOD ORDERABLES F inal Result Performing Organization Address City/[facility]/ZIP Co de Phone Number [facility] [place] [address] * (ABNORMAL) aPTT (02/26/2025 7:11 AM CDT) aPTT 47(H) 28 - 38 sec Comment: Interpretive Data Heparin therapeutic range: 66.0 - 100.0 seconds. Range based on correlation with therapeutic heparin activity range of 0.3 - 0.7 Units/mL. Current interpretive data was last revised on 2023. Blood 02/26/2025 7:11 AM CDT 02/26/2025 7:16 AM CDT Narrative [facility] - 02/26/2025 7:51 AM CDT STAT PTT [...] NP LAB BLOOD ORDERABLES Final Re sult [facility] [place] [address] * Protime-INR (02/26/2025 7:11 AM CDT) PT 12.1 9.7 - 13.0 sec INR 1.12 0.90 - 1.20 [facility] Comment: Interpretive data Oral anticoagulant therapeutic ranges: Venous thromboembolism prophylaxis or treatment: 2.0-3.0 CARDIOLOGY Standard range: 2.0-3.0 High-intensity range: 2.5-3.5 Refer to indication-specific guidelines for appropriate target ranges for prosthetic heart valve replacement. Current interpretive data was last revised on 2019. Blood 02/26/2025 7:11 AM CDT 02/26/2025 7:16 AM CDT Rox Choi MANUSCRIPT READER LAB BLOOD ORDERABLES Final Result Performing Organization Address [facility] Co de Phone Number [facility] Department [place] [address] * (ABNORMAL) CBC without differential (02/26/2025 7:11 AM CDT) Pathologist [facility] WBC 6.65 3.80 - 9.90 K/cumm Hgb 7.6(L) 13.0 - 17.5 g/dL [facility] Hct 25.7(L) 38.9 - 50.3 % [facility] Plt 269 150 - 400 K/cumm [facility] MPV 9.6 9.1 - 12.3 fL [facility] RBC 2.96(L) 4.30 - 5.80 M/cumm [facility] MCV 86.8 81.3 - 96.4 fL [facility] MCH 25.7(L) 27.1 - 33.3 pg [facility] MCHC 29.6(L) 32.3 - 35.7 g/dL [facility] RDW CV 15.4(H) 11.1 - 14.9 % [facility] RDW SD 48.3(H) 35.7 - 48.1 fL [facility] NRBC abs 0.00 0.00 - 0.01 K/cumm [facility] Blood 02/26/2025 7:11 AM CDT 02/26/2025 7:16 AM CDT Delilah Adams MD PhD LAB BLOOD ORDERABLES F inal Result Performing Organization Address City/[facility]/ZIP Co de Phone Number [facility] Department [place] [address] * Type and screen (02/26/2025 7:11 AM CDT) Pathologist [facility] ABO Rh O Positive Carly, indirect Negative [facility] Blood 02/26/2025 7:11 AM CDT 02/26/2025 7:19 AM CDT Narrative [facility] - 02/26/2025 8:06 AM CDT Has the patient had Daratumumab or Isatuximab in the past 6 months?->Unknown Rox hCoi MANUSCRIPT READER LAB BLOOD BANK TEST ORDERABLES Final Result Performing Organization Address City/[facility]/ZIP Co de Phone Number [facility] Department [place] [address] * Phosphorus (02/26/2025 7:11 AM CDT) Pathologist [facility] Phosphorus, pl 3.7 2.3 - 4.5 mg/dL Blood 02/26/2025 7:11 AM CDT 02/26/2025 7:16 AM CDT Delilah Adams MD PhD LAB BLOOD ORDERABLES F inal Result Performing Organization Address City/[facility] Co de Phone Number [facility] [place] [address] * Magnesium (02/26/2025 7:11 AM CDT) Pathologist [facility] Magnesium 2.5 1.4 - 2.5 mg/dL Blood 02/26/2025 7:11 AM CDT 02/26/2025 7:16 AM CDT Delilah Adams MD PhD LAB BLOOD ORDERABLES F inal Result Performing Organization Address City/[facility] Co de Phone Number [facility] [place] [address] * (ABNORMAL) Basic metabolic panel (02/26/2025 7:11 AM CDT) Sodium 144 135 - 145 mmol/L Potassium, pl 5.0(H) 3.3 - 4.9 mmol/L [facility] Chloride 113(H) 97 - 110 mmol/L [facility] CO2 21(L) 22 - 32 mmol/L [facility] Anion gap 10 2 - 15 mmol/L [facility] BUN 35(H) 6 - 25 mg/dL [facility] Creatinine 1.63(H) 0.80 - 1.30 mg/dL [facility] Glucose 93 70 - 199 mg/dL [facility] Comment: Interpretive Data Fasting glucose >/= 126 [...] 2022. Calcium 8.6 8.5 - 10.3 mg/dL [facility] Blood 02/26/2025 7:11 AM CDT 02/26/2025 7:16 AM CDT Delilah Adams MD PhD LAB BLOOD ORDERABLES F inal Result Performing Organization Address City/[facility]/ZIP Co de Phone Number [facility] [place] [address] * POCT glucose (02/26/2025 6:18 AM CDT) [facility] Glucose, POC 97 70 - 199 mg/dL Blood 02/26/2025 6:18 AM CDT 02/26/2025 6:18 AM CDT Delilah Adams MD PhD LAB POCT ORDERABLES - DEVICE Final Result Performing Organization Address City/[facility]/ZIP Co de Phone Number [facility] [place] [address] * POCT glucose (02/25/2025 7:20 PM CDT) Glucose, POC 148 70 - 199 mg/dL Blood 02/25/2025 7:20 PM CDT 02/25/2025 7:20 PM CDT us Delilah Adams MD PhD LAB POCT ORDERABLES - DEVICE Final Result Performing Organization Address City/[facility] Co de Phone Number [place] [address] * POCT glucose (02/25/2025 5:29 PM CDT) Glucose, POC 103 70 - 199 mg/dL Blood 02/25/2025 5:29 PM CDT 02/25/2025 5:29 PM CDT us Delilah Adams MD PhD LAB POCT ORDERABLES - DEVICE Final Result Performing Organization Address [facility] de Phone Number [facility] [place] [address] * POCT glucose (02/25/2025 11:47 AM CDT) Glucose, POC 154 70 - 199 mg/dL Blood 02/25/2025 11:4 7 AM CDT 02/25/2025 11:47 AM CDT Delilah Adams MD PhD LAB POCT ORDERABLES - DEVICE Final Result Performing Organization Address [facility] [place] [address] * POCT glucose (02/25/2025 7:26 AM CDT) Glucose, POC 110 70 - 199 mg/dL Blood 02/25/2025 7:26 AM CDT 02/25/2025 7:26 AM CDT Delilah Adams MD PhD LAB POCT ORDERABLES - DEVICE Final Result Performing Organization Address City/[facility] Co de Phone Number [facility] [place] [address] * (ABNORMAL) eGFR (02/25/2025 1:42 AM CDT) eGFR 37(L) >=60 mL/min/1. 73 m2 Comment: [...] 1:42 AM CDT 02/25/2025 2:31 AM CDT us Delilah Adams MD PhD LAB BLOOD ORDERABLES F inal Result Performing Organization Address City/[facility]/ZIP Co de Phone Number [facility] [place] [address] * (ABNORMAL) aPTT (02/25/2025 1:42 AM CDT) aPTT 82(H) 28 - 38 sec Comment: Interpretive Data Heparin therapeutic range: 66.0 - 100.0 seconds. Range based on correlation with therapeutic heparin activity range of 0.3 - 0.7 Units/mL. Current interpretive data was last revised on 2023. Blood 02/25/2025 1:42 AM CDT 02/25/2025 2:35 AM CDT Narrative [facility] - 02/25/2025 3:01 AM CDT STAT PTT [...] drawn peripherally (not from [facility]). Stephanie Montalvo MANUSCRIPT READER LAB BLOOD ORDERABLES Final Re sult [facility] Department [place] [address] * (ABNORMAL) CBC without differential (02/25/2025 1:42 AM CDT) WBC 6.68 3.80 - 9.90 K/cumm Hgb 8.0(L) 13.0 - 17.5 g/dL [facility] Hct 26.4(L) 38.9 - 50.3 % [facility] Plt 272 150 - 400 K/cumm [facility] MPV 9.6 9.1 - 12.3 fL [facility] RBC 3.11(L) 4.30 - 5.80 M/cumm [facility] MCV 84.9 81.3 - 96.4 fL [facility] MCH 25.7(L) 27.1 - 33.3 pg [facility] MCHC 30.3(L) 32.3 - 35.7 g/dL [facility] RDW CV 15.3(H) 11.1 - 14.9 % [facility] RDW SD 46.7 35.7 - 48.1 fL [facility] NRBC abs 0.00 0.00 - 0.01 K/cumm [facility] Blood 02/25/2025 1:42 AM CDT 02/25/2025 2:31 AM CDT Delilah Adams MD PhD LAB BLOOD ORDERABLES F inal Result Performing Organization Address City/[facility] [place] [address] * Phosphorus (02/25/2025 1:42 AM CDT) Pathologist [facility] Phosphorus, pl 3.6 2.3 - 4.5 mg/dL Blood 02/25/2025 1:42 AM CDT 02/25/2025 2:31 AM CDT Delilah Adams MD PhD LAB BLOOD ORDERABLES F inal Result Performing Organization Address City/[facility] de Phone Number [facility] [place] [address] * Magnesium (02/25/2025 1:42 AM CDT) Pathologist [facility] Magnesium 2.5 1.4 - 2.5 mg/dL Blood 02/25/2025 1:42 AM CDT 02/25/2025 2:31 AM CDT Delilah Adams MD PhD LAB BLOOD ORDERABLES F inal Result Performing Organization Address City/[facility] Co de Phone Number [facility] [place] [address] * (ABNORMAL) Basic metabolic panel (02/25/2025 1:42 AM CDT) Sodium 140 135 - 145 mmol/L Potassium, pl 5.0(H) 3.3 - 4.9 mmol/L [facility] Chloride 112(H) 97 - 110 mmol/L [facility] CO2 22 22 - 32 mmol/L [facility] Anion gap 6 2 - 15 mmol/L [facility] BUN 43(H) 6 - 25 mg/dL [facility] Creatinine 1.88(H) 0.80 - 1.30 mg/dL [facility] Glucose 116 70 - 199 mg/dL [facility] Comment: Interpretive Data Fasting glucose >/= 126 [...] 2022. Calcium 8.8 8.5 - 10.3 mg/dL [facility] Blood 02/25/2025 1:42 AM CDT 02/25/2025 2:31 AM CDT us Delilah Adams MD PhD LAB BLOOD ORDERABLES F inal Result [facility] [place] [address] * POCT glucose (02/24/2025 7:13 PM CDT) Glucose, POC 124 70 - 199 mg/dL Blood 02/24/2025 7:13 PM CDT 02/24/2025 7:13 PM CDT Delilah Adams MD PhD LAB POCT ORDERABLES - DEVICE Final Result Performing Organization Address [facility]/State/ZIP Co de Phone Number [facility] [place] [address] * (ABNORMAL) aPTT (02/24/2025 6:41 PM CDT) aPTT 103(H) 28 - 38 sec Comment: Interpretive Data Heparin therapeutic range: 66.0 - 100.0 seconds. Range based on correlation with therapeutic heparin activity range of 0.3 - 0.7 Units/mL. Current interpretive data was last revised on 2023. Blood 02/24/2025 6:41 PM CDT 02/24/2025 7:26 PM CDT Narrative [facility] - 02/24/2025 7:47 PM CDT STAT PTT [...] peripherally (not from [facility]). us Stephanie Montalvo MANUSCRIPT READER LAB BLOOD ORDERABLES Final Re sult Performing Organization Address City/[facility] Co de Phone Number [facility] [place] [address] * POCT glucose (02/24/2025 4:41 PM CDT) Pathologist [facility] Glucose, POC 114 70 - 199 mg/dL Blood 02/24/2025 4:41 PM CDT 02/24/2025 4:41 PM CDT Delilah Adams MD PhD LAB POCT ORDERABLES - DEVICE Final Result [facility] [place] [address] * (ABNORMAL) aPTT (02/24/2025 12:23 PM CDT) Pathologist [facility] aPTT 79(H) 28 - 38 sec Comment: Interpretive Data Heparin therapeutic range: 66.0 - 100.0 seconds. Range based on correlation with therapeutic heparin activity range of 0.3 - 0.7 Units/mL. Current interpretive data was last revised on 2023. Blood 02/24/2025 12:2 3 PM CDT 02/24/2025 12:43 PM CDT Narrative [facility] - 02/24/2025 1:08 PM CDT STAT PTT [...] drawn peripherally (not from [facility]). Stephanie Montalvo MANUSCRIPT READER LAB BLOOD ORDERABLES Final Re sult Performing Organization Address [facility] Co de Phone Number [facility] [place] [address] * POCT glucose (02/24/2025 11:58 AM CDT) [facility] Glucose, POC 117 70 - 199 mg/dL Blood 02/24/2025 11:5 8 AM CDT 02/24/2025 11:58 AM CDT Delilah Adams MD PhD LAB POCT ORDERABLES - DEVICE Final Result Performing Organization Address [facility] Co de Phone Number [facility] [place] [address] * POCT glucose (02/24/2025 8:19 AM CDT) Glucose, POC 107 70 - 199 mg/dL Blood 02/24/2025 8:19 AM CDT 02/24/2025 8:19 AM CDT Delilah Adams MD PhD LAB POCT ORDERABLES - DEVICE Final Result Performing Organization Address [facility] Co de Phone Number [facility] [place] [address] * POCT glucose (02/24/2025 7:57 AM CDT) Glucose, POC 114 70 - 199 mg/dL Blood 02/24/2025 7:57 AM CDT 02/24/2025 7:57 AM CDT us Delilah Adams MD PhD LAB POCT ORDERABLES - DEVICE Final Result Performing Organization Address [facility] Co de Phone Number [facility] [place] [address] * (ABNORMAL) Potassium, whole blood (02/24/2025 3:52 AM CDT) Potassium, bld 5.0(H) 3.3 - 4.9 mmol/L Blood 02/24/2025 3:52 AM CDT 02/24/2025 4:05 AM CDT Delilah Adams MD PhD LAB BLOOD ORDERABLES F inal Result Performing Organization Address [facility] Co de Phone Number [facility] Department [place] [address] * (ABNORMAL) eGFR (02/24/2025 2:09 AM CDT) [...] PhD LAB BLOOD ORDERABLES F inal Result [facility] [place] [address] * (ABNORMAL) aPTT (02/24/2025 2:09 AM CDT) aPTT 103(H) 28 - 38 sec Comment: Interpretive Data Heparin therapeutic range: 66.0 - 100.0 seconds. Range based on correlation with therapeutic heparin activity range of 0.3 - 0.7 Units/mL. Current interpretive data was last revised on 2023. Blood 02/24/2025 2:09 AM CDT 02/24/2025 2:32 AM CDT Narrative [facility] - 02/24/2025 2:55 AM CDT STAT PTT [...] NP LAB BLOOD ORDERABLES Final Re sult [facility] [place] [address] * (ABNORMAL) CBC without differential (02/24/2025 2:09 AM CDT) [facility] WBC 7.03 3.80 - 9.90 K/cumm Hgb 7.7(L) 13.0 - 17.5 g/dL [facility] Hct 25.1(L) 38.9 - 50.3 % [facility] Plt 220 150 - 400 K/cumm [facility] MPV 9.8 9.1 - 12.3 fL [facility] RBC 2.92(L) 4.30 - 5.80 M/cumm [facility] MCV 86.0 81.3 - 96.4 fL [facility] MCH 26.4(L) 27.1 - 33.3 pg [facility] MCHC 30.7(L) 32.3 - 35.7 g/dL [facility] RDW CV 15.1(H) 11.1 - 14.9 % [facility] RDW SD 46.2 35.7 - 48.1 fL [facility] NRBC abs 0.00 0.00 - 0.01 K/cumm [facility] Blood 02/24/2025 2:09 AM CDT 02/24/2025 2:42 AM CDT Delilah Adams MD PhD LAB BLOOD ORDERABLES F inal Result Performing Organization Address City/[facility] Co de Phone Number [facility] [place] [address] * Phosphorus (02/24/2025 2:09 AM CDT) Phosphorus, pl 3.5 2.3 - 4.5 mg/dL Blood 02/24/2025 2:09 AM CDT 02/24/2025 2:42 AM CDT Delilah Adams MD PhD LAB BLOOD ORDERABLES F inal Result Performing Organization Address [facility] Co de Phone Number [facility] [place] [address] * Magnesium (02/24/2025 2:09 AM CDT) Pathologist [facility] Magnesium 2.5 1.4 - 2.5 mg/dL Blood 02/24/2025 2:09 AM CDT 02/24/2025 2:42 AM CDT Delilah Adams MD PhD LAB BLOOD ORDERABLES F inal Result Performing Organization Address [facility] Co de Phone Number [facility] [place] [address] * (ABNORMAL) Basic metabolic panel (02/24/2025 2:09 AM CDT) Sodium 140 135 - 145 mmol/L Potassium, pl 5.3(H) 3.3 - 4.9 mmol/L [facility] Chloride 112(H) 97 - 110 mmol/L [facility] CO2 20(L) 22 - 32 mmol/L [facility] Anion gap 8 2 - 15 mmol/L [facility] BUN 40(H) 6 - 25 mg/dL [facility] Creatinine 1.86(H) 0.80 - 1.30 mg/dL [facility] Glucose 92 70 - 199 mg/dL [facility] Comment: Interpretive Data Fasting glucose >/= 126 [...] 2022. Calcium 8.4(L) 8.5 - 10.3 mg/dL [facility] Blood 02/24/2025 2:09 AM CDT 02/24/2025 2:42 AM CDT Delilah Adams MD PhD LAB BLOOD ORDERABLES F inal Result [facility] [place] [address] * POCT glucose (02/23/2025 7:33 PM CDT) Glucose, POC 155 70 - 199 mg/dL Blood 02/23/2025 7:33 PM CDT 02/23/2025 7:33 PM CDT Delilah Adams MD PhD LAB POCT ORDERABLES - DEVICE Final Result [facility] [place] [address] * POCT glucose (02/23/2025 5:08 PM CDT) Glucose, POC 138 70 - 199 mg/dL Blood 02/23/2025 5:08 PM CDT 02/23/2025 5:08 PM CDT Delilah Adams MD PhD LAB POCT ORDERABLES - DEVICE Final Result Performing Organization Address [facility] Phone Number [facility] [place] [address] * POCT glucose (02/23/2025 11:57 AM CDT) Glucose, POC 138 70 - 199 mg/dL Blood 02/23/2025 11:5 7 AM CDT 02/23/2025 11:57 AM CDT Delilah Adams MD PhD LAB POCT ORDERABLES - DEVICE Final Result Performing Organization Address [facility] Phone Number [facility] [place] [address] * POCT glucose (02/23/2025 7:55 AM CDT) Glucose, POC 119 70 - 199 mg/dL Blood 02/23/2025 7:55 AM CDT 02/23/2025 7:55 AM CDT Result [facility] Delilah Adams MD PhD LAB POCT ORDERABLES - DEVICE Final Result Performing Organization Address [facility] Phone Number [facility] [place] [address] * (ABNORMAL) eGFR (02/23/2025 3:27 AM CDT) [...] PhD LAB BLOOD ORDERABLES F inal Result [facility] [place] [address] * (ABNORMAL) aPTT (02/23/2025 3:27 AM CDT) aPTT 94(H) 28 - 38 sec Comment: Interpretive Data Heparin therapeutic range: 66.0 - 100.0 seconds. Range based on correlation with therapeutic heparin activity range of 0.3 - 0.7 Units/mL. Current interpretive data was last revised on 2023. Blood 02/23/2025 3:27 AM CDT 02/23/2025 3:54 AM CDT Narrative [facility] - 02/23/2025 4:03 AM CDT STAT PTT [...] drawn peripherally (not from [facility]). Stephanie Montalvo MANUSCRIPT READER LAB BLOOD ORDERABLES Final Re sult Performing Organization Address City/[facility]/ZIP Co de Phone Number [facility] [place] [address] * (ABNORMAL) CBC without differential (02/23/2025 3:27 AM CDT) Pathologist [facility] WBC 6.77 3.80 - 9.90 K/cumm Hgb 7.8(L) 13.0 - 17.5 g/dL [facility] Hct 25.6(L) 38.9 - 50.3 % [facility] Plt 226 150 - 400 K/cumm [facility] MPV 9.4 9.1 - 12.3 fL [facility] RBC 3.02(L) 4.30 - 5.80 M/cumm [facility] MCV 84.8 81.3 - 96.4 fL [facility] MCH 25.8(L) 27.1 - 33.3 pg [facility] MCHC 30.5(L) 32.3 - 35.7 g/dL [facility] RDW CV 14.8 11.1 - 14.9 % [facility] RDW SD 45.7 35.7 - 48.1 fL [facility] NRBC abs 0.02(H) 0.00 - 0.01 K/cumm [facility] Blood 02/23/2025 3:27 AM CDT 02/23/2025 4:01 AM CDT Delilah Adams MD PhD LAB BLOOD ORDERABLES F inal Result [facility] [place] [address] * Phosphorus (02/23/2025 3:27 AM CDT) Pathologist [facility] Phosphorus, pl 3.1 2.3 - 4.5 mg/dL Blood 02/23/2025 3:27 AM CDT 02/23/2025 4:01 AM CDT Delilah Adams MD PhD LAB BLOOD ORDERABLES F inal Result Performing Organization Address City/[facility] Co de Phone Number [facility] [place] [address] * Magnesium (02/23/2025 3:27 AM CDT) Pathologist [facility] Magnesium 2.4 1.4 - 2.5 mg/dL Blood 02/23/2025 3:27 AM CDT 02/23/2025 4:01 AM CDT Delilah Adams MD PhD LAB BLOOD ORDERABLES F inal Result Performing Organization Address [facility] de Phone Number [facility] [place] [address] * (ABNORMAL) Basic metabolic panel (02/23/2025 3:27 AM CDT) [facility] Sodium 139 135 - 145 mmol/L Potassium, pl 4.7 3.3 - 4.9 mmol/L [facility] Chloride 110 97 - 110 mmol/L [facility] CO2 20(L) 22 - 32 mmol/L [facility] Anion gap 9 2 - 15 mmol/L [facility] BUN 40(H) 6 - 25 mg/dL [facility] Creatinine 1.94(H) 0.80 - 1.30 mg/dL [facility] Glucose 113 70 - 199 mg/dL [facility] Comment: Interpretive Data Fasting glucose >/= 126 [...] 2022. Calcium 8.4(L) 8.5 - 10.3 mg/dL [facility] Blood 02/23/2025 3:27 AM CDT 02/23/2025 4:01 AM CDT Delilah Adams MD PhD LAB BLOOD ORDERABLES F inal Result [facility] Department [place] [address] * POCT glucose (02/22/2025 11:50 PM CDT) Glucose, POC 154 70 - 199 mg/dL Blood 02/22/2025 11:5 0 PM CDT 02/22/2025 11:50 PM CDT Delilah Adams MD PhD LAB POCT ORDERABLES - DEVICE Final Result Performing Organization Address City/[facility]/ZIP Co de Phone Number [facility] [place] [address] * POCT glucose (02/22/2025 7:38 PM CDT) Glucose, POC 197 70 - 199 mg/dL Blood 02/22/2025 7:38 PM CDT 02/22/2025 7:38 PM CDT Delilah Adams MD PhD LAB POCT ORDERABLES - DEVICE Final Result Performing Organization Address City/[facility] Co de Phone Number [facility] [place] [address] * POCT glucose (02/22/2025 4:39 PM CDT) Glucose, POC 166 70 - 199 mg/dL Blood 02/22/2025 4:39 PM CDT 02/22/2025 4:39 PM CDT Delilah Adams MD PhD LAB POCT ORDERABLES - DEVICE Final Result Performing Organization Address [facility] de Phone Number [facility] [place] [address] * (ABNORMAL) CBC without differential (02/22/2025 2:27 PM CDT) [facility] WBC 7.85 3.80 - 9.90 K/cumm Hgb 8.0(L) 13.0 - 17.5 g/dL [facility] Hct 26.3(L) 38.9 - 50.3 % [facility] Plt 211 150 - 400 K/cumm [facility] MPV 9.5 9.1 - 12.3 fL [facility] RBC 3.02(L) 4.30 - 5.80 M/cumm [facility] MCV 87.1 81.3 - 96.4 fL [facility] MCH 26.5(L) 27.1 - 33.3 pg [facility] MCHC 30.4(L) 32.3 - 35.7 g/dL [facility] RDW CV 15.0(H) 11.1 - 14.9 % [facility] RDW SD 47.3 35.7 - 48.1 fL [facility] NRBC abs 0.02(H) 0.00 - 0.01 K/cumm [facility] Blood 02/22/2025 2:27 PM CDT 02/22/2025 2:46 PM CDT Delilah Adams MD PhD LAB BLOOD ORDERABLES F inal Result Performing Organization Address [facility]/ZIP Co de Phone Number [facility] [place] [address] * Transfuse RBC (02/22/2025 12:06 PM CDT) Blood Delilah Adams MD PhD BLOOD TRANSFUSION ORDE RABLES Final Result Performing Organization Address City/[facility]/ZIP Co de Phone Number [facility] [place] [address] * POCT glucose (02/22/2025 11:01 AM CDT) Glucose, POC 123 70 - 199 mg/dL Blood 02/22/2025 11:0 1 AM CDT 02/22/2025 11:01 AM CDT Delilah Adams MD PhD LAB POCT ORDERABLES - DEVICE Final Result Performing Organization Address [facility] [place] [address] * Type and screen (02/22/2025 7:44 AM CDT) Carly, indirect Negative ABO Rh O Positive [facility] Blood 02/22/2025 7:44 AM CDT 02/22/2025 8:00 AM CDT Narrative [facility] - 02/22/2025 9:13 AM CDT Has the patient had Daratumumab or Isatuximab in the past 6 months?->Unknown Delilah Adams MD PhD LAB BLOOD BANK TEST OR DERABLES Final Result Performing Organization Address [facility] Co de Phone Number [facility] [place] [address] * POCT glucose (02/22/2025 7:17 AM CDT) Glucose, POC 111 70 - 199 mg/dL Blood 02/22/2025 7:17 AM CDT 02/22/2025 7:17 AM CDT Delilah Adams MD PhD LAB POCT ORDERABLES - DEVICE Final Result Performing Organization Address City/[facility]/ZIP Co de Phone Number [facility] [place] [address] * Prepare RBC: 1 Units (02/22/2025 6:55 AM CDT) Product code [id number] Unit Number [id number] [facility] Product Blood Type OPOS [facility] Dispense Status PRESUMED TRANSFUSED [facility] Blood 02/22/2025 6:55 AM CDT 02/22/2025 6:55 AM CDT Narrative [facility] - 02/23/2025 12:57 AM CDT Are special requirements needed? (All products are leukoreduced and CMV- safe)- >No Date required:-[id number] LRRBC # of [id number] Reasons:-Hgb <7 g/dL} Delilah Adams MD PhD BLOOD BANK PRODUCT ORD ERABLES Final Result Performing Organization Address City/[facility]/ZIP Co de Phone Number [facility] [place] [address] * (ABNORMAL) eGFR (02/21/2025 9:00 PM CDT) [...] ORDERABLES F inal Result Performing Organization Address [facility] Co de Phone Number [facility] [place] [address] * (ABNORMAL) aPTT (02/21/2025 9:00 PM CDT) aPTT 86(H) 28 - 38 sec Comment: Interpretive Data Heparin therapeutic range: 66.0 - 100.0 seconds. Range based on correlation with therapeutic heparin activity range of 0.3 - 0.7 Units/mL. Current interpretive data was last revised on 2023. Blood 02/21/2025 9:00 PM CDT 02/21/2025 9:41 PM CDT Narrative [facility] - 02/21/2025 9:51 PM CDT STAT PTT [...] drawn peripherally (not from [facility]). Stephanie Montalvo MANUSCRIPT READER LAB BLOOD ORDERABLES Final Re sult Performing Organization Address [facility]/ZIP Co de Phone Number [facility] [place] [address] * (ABNORMAL) CBC without differential (02/21/2025 9:00 PM CDT) [facility] WBC 9.12 3.80 - 9.90 K/cumm Hgb 6.8(L) 13.0 - 17.5 g/dL [facility] Hct 22.9(L) 38.9 - 50.3 % [facility] Plt 230 150 - 400 K/cumm [facility] MPV 10.2 9.1 - 12.3 fL [facility] RBC 2.65(L) 4.30 - 5.80 M/cumm [facility] MCV 86.4 81.3 - 96.4 fL [facility] MCH 25.7(L) 27.1 - 33.3 pg [facility] MCHC 29.7(L) 32.3 - 35.7 g/dL [facility] RDW CV 15.0(H) 11.1 - 14.9 % [facility] RDW SD 46.5 35.7 - 48.1 fL [facility] NRBC abs 0.00 0.00 - 0.01 K/cumm [facility] Blood 02/21/2025 9:00 PM CDT 02/21/2025 9:36 PM CDT us Delilah Adams MD PhD LAB BLOOD ORDERABLES F inal Result Performing Organization Address City/[facility]/ZIP Co de Phone Number [facility] [place] [address] * Phosphorus (02/21/2025 9:00 PM CDT) [facility] Phosphorus, pl 2.6 2.3 - 4.5 mg/dL Blood 02/21/2025 9:00 PM CDT 02/21/2025 9:36 PM CDT Delilah Adams MD PhD LAB BLOOD ORDERABLES F inal Result [facility] [place] [address] * (ABNORMAL) Basic metabolic panel (02/21/2025 9:00 PM CDT) Sodium 137 135 - 145 mmol/L Potassium, pl 4.4 3.3 - 4.9 mmol/L [facility] Chloride 109 97 - 110 mmol/L [facility] CO2 21(L) 22 - 32 mmol/L [facility] Anion gap 7 2 - 15 mmol/L [facility] BUN 41(H) 6 - 25 mg/dL [facility] Creatinine 2.29(H) 0.80 - 1.30 mg/dL [facility] Glucose 154 70 - 199 mg/dL [facility] Comment: Interpretive Data Fasting glucose >/= 126 [...] 2022. Calcium 8.4(L) 8.5 - 10.3 mg/dL [facility] Blood 02/21/2025 9:00 PM CDT 02/21/2025 9:36 PM CDT us Delilah Adams MD PhD LAB BLOOD ORDERABLES F inal Result [facility] [place] [address] * POCT glucose (02/21/2025 8:16 PM CDT) Glucose, POC 183 70 - 199 mg/dL Blood 02/21/2025 8:16 PM CDT 02/21/2025 8:16 PM CDT Delilah Adams MD PhD LAB POCT ORDERABLES - DEVICE Final Result Performing Organization Address [facility] de Phone Number [facility] [place] [address] * POCT glucose (02/21/2025 5:05 PM CDT) Glucose, POC 131 70 - 199 mg/dL Blood 02/21/2025 5:05 PM CDT 02/21/2025 5:05 PM CDT Delilah Adams MD PhD LAB POCT ORDERABLES - DEVICE Final Result Performing Organization Address [facility] Phone Number [facility] [place] [address] * POCT glucose (02/21/2025 11:44 AM CDT) Glucose, POC 160 70 - 199 mg/dL Blood 02/21/2025 11:4 4 AM CDT 02/21/2025 11:44 AM CDT Delilah Adams MD PhD LAB POCT ORDERABLES - DEVICE Final Result Performing Organization Address [facility] de Phone Number [facility] [place] [address] * (ABNORMAL) aPTT (02/21/2025 11:25 AM CDT) aPTT 73(H) 28 - 38 sec Comment: Interpretive Data Heparin therapeutic range: 66.0 - 100.0 seconds. Range based on correlation with therapeutic heparin activity range of 0.3 - 0.7 Units/mL. Current interpretive data was last revised on 2023. Blood 02/21/2025 11:2 5 AM CDT 02/21/2025 12:[address] [facility] - 02/21/2025 12:51 PM CDT STAT PTT [...] drawn peripherally (not from [facility]). Stephanie Montalvo MANUSCRIPT READER LAB BLOOD ORDERABLES Final Re sult Performing Organization Address City/[facility]/ZIP Co de Phone Number [facility] [place] [address] * POCT glucose (02/21/2025 7:57 AM CDT) Glucose, POC 126 70 - 199 mg/dL Blood 02/21/2025 7:57 AM CDT 02/21/2025 7:57 AM CDT Delilah Adams MD PhD LAB POCT ORDERABLES - DEVICE Final Result [facility] [place] [address] * (ABNORMAL) aPTT (02/21/2025 5:07 AM CDT) aPTT 94(H) 28 - 38 sec Comment: Interpretive Data Heparin therapeutic range: 66.0 - 100.0 seconds. Range based on correlation with therapeutic heparin activity range of 0.3 - 0.7 Units/mL. Current interpretive data was last revised on 2023. Blood 02/21/2025 5:07 AM CDT 02/21/2025 6:34 AM CDT Narrative [facility] - 02/21/2025 7:06 AM CDT STAT PTT [...] NP LAB BLOOD ORDERABLES Final Re sult [facility] [place] [address] * (ABNORMAL) eGFR (02/20/2025 8:36 PM CDT) eGFR 33(L) >=60 mL/min/1. 73 m2 Comment: [...] ORDERABLES F inal Result Performing Organization Address [facility] Co de Phone Number [facility] [place] [address] * (ABNORMAL) aPTT (02/20/2025 8:36 PM CDT) aPTT 103(H) 28 - 38 sec Comment: Interpretive Data Heparin therapeutic range: 66.0 - 100.0 seconds. Range based on correlation with therapeutic heparin activity range of 0.3 - 0.7 Units/mL. Current interpretive data was last revised on 2023. Blood 02/20/2025 8:36 PM CDT 02/20/2025 10:02 PM CDT Narrative [facility] - 02/20/2025 10:11 PM CDT STAT PTT [...] drawn peripherally (not from [facility]). Stephanie Montalvo MANUSCRIPT READER LAB BLOOD ORDERABLES Final Re sult Performing Organization Address [facility]/ZIP Co de Phone Number [facility] [place] [address] * (ABNORMAL) CBC without differential (02/20/2025 8:36 PM CDT) Pathologist [facility] WBC 8.65 3.80 - 9.90 K/cumm Hgb 7.2(L) 13.0 - 17.5 g/dL [facility] Hct 24.1(L) 38.9 - 50.3 % [facility] Plt 257 150 - 400 K/cumm [facility] MPV 10.2 9.1 - 12.3 fL [facility] RBC 2.77(L) 4.30 - 5.80 M/cumm [facility] MCV 87.0 81.3 - 96.4 fL [facility] MCH 26.0(L) 27.1 - 33.3 pg [facility] MCHC 29.9(L) 32.3 - 35.7 g/dL [facility] RDW CV 14.8 11.1 - 14.9 % [facility] RDW SD 46.6 35.7 - 48.1 fL [facility] NRBC abs 0.00 0.00 - 0.01 K/cumm [facility] Blood 02/20/2025 8:36 PM CDT 02/20/2025 10:00 PM CDT Delilah Adams MD PhD LAB BLOOD ORDERABLES F inal Result Performing Organization Address City/[facility] Co de Phone Number [facility] [place] [address] * Phosphorus (02/20/2025 8:36 PM CDT) [facility] Phosphorus, pl 2.5 2.3 - 4.5 mg/dL Blood 02/20/2025 8:36 PM CDT 02/20/2025 10:00 PM CDT Delilah Adams MD PhD LAB BLOOD ORDERABLES F inal Result Performing Organization Address City/[facility]/ZIP Co de Phone Number [facility] [place] [address] * (ABNORMAL) Basic metabolic panel (02/20/2025 8:36 PM CDT) Sodium 143 135 - 145 mmol/L Potassium, pl 4.4 3.3 - 4.9 mmol/L [facility] Chloride 112(H) 97 - 110 mmol/L [facility] CO2 21(L) 22 - 32 mmol/L [facility] Anion gap 10 2 - 15 mmol/L [facility] BUN 36(H) 6 - 25 mg/dL [facility] Creatinine 2.11(H) 0.80 - 1.30 mg/dL [facility] Glucose 148 70 - 199 mg/dL [facility] Comment: Interpretive Data Fasting glucose >/= 126 [...] 2022. Calcium 8.3(L) 8.5 - 10.3 mg/dL [facility] Blood 02/20/2025 8:36 PM CDT 02/20/2025 10:00 PM CDT us Delilah Adams MD PhD LAB BLOOD ORDERABLES F inal Result [facility] [place] [address] * POCT glucose (02/20/2025 7:34 PM CDT) Glucose, POC 183 70 - 199 mg/dL Blood 02/20/2025 7:34 PM CDT 02/20/2025 7:34 PM CDT Delilah Adams MD PhD LAB POCT ORDERABLES - DEVICE Final Result Performing Organization Address [facility]/State/ZIP Co de Phone Number [facility] [place] [address] * POCT glucose (02/20/2025 5:00 PM CDT) Glucose, POC 171 70 - 199 mg/dL Blood 02/20/2025 5:0 0 PM CDT 02/20/2025 5:00 PM CDT Delilah Adams MD PhD LAB POCT ORDERABLES - DEVICE Final Result Performing Organization Address City/State/[facility] [place] [address] * POCT glucose (02/20/2025 11:28 AM CDT) Glucose, POC 162 70 - 199 mg/dL Blood 02/20/2025 11:2 8 AM CDT 02/20/2025 11:28 AM CDT Delilah Adams MD PhD LAB POCT ORDERABLES - DEVICE Final Result Performing Organization Address City/[facility] [place] [address] * (ABNORMAL) aPTT (02/20/2025 10:27 AM CDT) [facility] aPTT 98(H) 28 - 38 sec Comment: Interpretive Data Heparin therapeutic range: 66.0 - 100.0 seconds. Range based on correlation with therapeutic heparin activity range of 0.3 - 0.7 Units/mL. Current interpretive data was last revised on 2023. Blood 02/20/2025 10:2 7 AM CDT 02/20/2025 11:29 AM CDT Narrative [facility] - 02/20/2025 11:38 AM CDT STAT [...] drawn peripherally (not from [facility]). Stephanie Montalvo MANUSCRIPT READER LAB BLOOD ORDERABLES Final Re sult Performing Organization Address City/[facility]/ZIP Co de Phone Number [place] [address] * POCT glucose (02/20/2025 7:18 AM CDT) Glucose, POC 95 70 - 199 mg/dL Blood 02/20/2025 7:18 AM CDT 02/20/2025 7:18 AM CDT Result [facility] Delilah Adams MD PhD LAB POCT ORDERABLES - DEVICE Final Result Performing Organization Address [facility] Co de Phone Number [facility] [place] [address] * POCT glucose (02/20/2025 4:18 AM CDT) Glucose, POC 93 70 - 199 mg/dL Blood 02/20/2025 4:18 AM CDT 02/20/2025 4:18 AM CDT Delilah Adams MD PhD LAB POCT ORDERABLES - DEVICE Final Result Performing Organization Address City/[facility] Co de Phone Number [facility] [place] [address] * (ABNORMAL) aPTT (02/20/2025 4:12 AM CDT) aPTT 98(H) 28 - 38 sec Comment: Interpretive Data Heparin therapeutic range: 66.0 - 100.0 seconds. Range based on correlation with therapeutic heparin activity range of 0.3 - 0.7 Units/mL. Current interpretive data was last revised on 2023. Blood 02/20/2025 4:12 AM CDT 02/20/2025 6:39 AM CDT us Delilah Adams MD PhD LAB BLOOD ORDERABLES F inal Result [facility] [place] [address] * (ABNORMAL) eGFR (02/19/2025 9:15 PM CDT) eGFR 34(L) >=60 mL/min/1. 73 m2 Comment: [...] LAB BLOOD ORDERABLES F inal Result [facility] [place] [address] * (ABNORMAL) aPTT (02/19/2025 9:15 PM CDT) [facility] aPTT 110(H) 28 - 38 sec Comment: Interpretive Data Heparin therapeutic range: 66.0 - 100.0 seconds. Range based on correlation with therapeutic heparin activity range of 0.3 - 0.7 Units/mL. Current interpretive data was last revised on 2023. Blood 02/19/2025 9:15 PM CDT 02/19/2025 9:57 PM CDT [facility]ative [facility] - 02/19/2025 10:07 PM CDT STAT PTT [...] drawn peripherally (not from [facility]). Stephanie Montalvo MANUSCRIPT READER LAB BLOOD ORDERABLES Final Re sult Performing Organization Address [facility] Co de Phone Number [facility] [place] [address] * (ABNORMAL) CBC without differential (02/19/2025 9:15 PM CDT) [facility] WBC 8.65 3.80 - 9.90 K/cumm Hgb 7.6(L) 13.0 - 17.5 g/dL [facility] Hct 26.5(L) 38.9 - 50.3 % [facility] Plt 285 150 - 400 K/cumm [facility] MPV 9.5 9.1 - 12.3 fL [facility] RBC 3.05(L) 4.30 - 5.80 M/cumm [facility] MCV 86.9 81.3 - 96.4 fL [facility] MCH 24.9(L) 27.1 - 33.3 pg [facility] MCHC 28.7(L) 32.3 - 35.7 g/dL [facility] RDW CV 14.7 11.1 - 14.9 % [facility] RDW SD 46.4 35.7 - 48.1 fL [facility] NRBC abs 0.00 0.00 - 0.01 K/cumm [facility] Blood 02/19/2025 9:15 PM CDT 02/19/2025 9:56 PM CDT Result [facility] Delilah Adams MD PhD LAB BLOOD ORDERABLES F inal Result Performing Organization Address City/[facility]/ZIP Co de Phone Number [facility] [place] [address] * Phosphorus (02/19/2025 9:15 PM CDT) Phosphorus, pl 2.5 2.3 - 4.5 mg/dL Blood 02/19/2025 9:15 PM CDT 02/19/2025 9:57 PM CDT Result [facility] Delilah Adams MD PhD LAB BLOOD ORDERABLES F inal Result [facility] [place] [address] * Magnesium (02/19/2025 9:15 PM CDT) Magnesium 2.4 1.4 - 2.5 mg/dL Blood 02/19/2025 9:15 PM CDT 02/19/2025 9:57 PM CDT Result [facility] Delilah Adams MD PhD LAB BLOOD ORDERABLES F inal Result [facility] [place] [address] * (ABNORMAL) Basic metabolic panel (02/19/2025 9:15 PM CDT) Sodium 141 135 - 145 mmol/L Potassium, pl 3.8 3.3 - 4.9 mmol/L [facility] Chloride 109 97 - 110 mmol/L [facility] CO2 23 22 - 32 mmol/L [facility] Anion gap 9 2 - 15 mmol/L [facility] BUN 33(H) 6 - 25 mg/dL [facility] Creatinine 2.04(H) 0.80 - 1.30 mg/dL [facility] Glucose 100 70 - 199 mg/dL [facility] Comment: Interpretive Data Fasting glucose >/= 126 [...] 2022. Calcium 8.5 8.5 - 10.3 mg/dL [facility] Blood 02/19/2025 9:15 PM CDT 02/19/2025 9:57 PM CDT Delilah Adams MD PhD LAB BLOOD ORDERABLES F inal Result [facility] [place] [address] * POCT glucose (02/19/2025 9:03 PM CDT) Glucose, POC 104 70 - 199 mg/dL Blood 02/19/2025 9:03 PM CDT 02/19/2025 9:03 PM CDT Delilah Adams MD PhD LAB POCT ORDERABLES - DEVICE Final Result [facility] [place] [address] * (ABNORMAL) Urinalysis reflex to microscopic (02/19/2025 6:12 PM CDT) Color, ur Straw Yellow Clarity, ur Clear Clear [facility] Specific gravity, ur 1.018 1.003 - 1.030 [facility] pH, urine 6.0 [facility] Comment: Interpretive Data U rine pH is affected by diet, medications, systemic acid-base disturbances, and renal tubular function. pH may affect urinary stone formation. For example, urine pH below 6.0 may help reduce the tendency for calcium phosphate stones and pH greater than 6.0 may reduce the tendency for uric acid stone formation. Source: [facility] Current Interpretive Data was last revised on 2017 Protein, ur ql 2+(A) Negative [facility] Glucose, ur ql Negative Negative [facility] Ketones, ur Trace Negative [facility] Bilirubin, ur Negative Negative [facility] Blood, ur Trace(A) Negative [facility] Urobilinogen, ur <2.0 <2.0 mg/dL [facility] Nitrite, ur Negative Negative [facility] Leukocyte esterase, ur Negative Negative [facility] UA reflex comment Reflex to microscopic UA will be performed. [facility] Urine 02/19/2025 6:12 PM CDT 02/19/2025 6:40 PM CDT Treasure Toro MANUSCRIPT READER LAB URINE ORDERABLES F inal Result Performing Organization Address City/[facility]/ZIP Co de Phone Number [facility] [place] [address] * Sodium, urine, random (02/19/2025 6:12 PM CDT) Sodium, ur 78 mmol/L Comment: Interpretive Data No reference range established. Current interpretive data was last revised 2019. Urine 02/19/2025 6:12 PM CDT 02/19/2025 6:47 PM CDT Treasure Toro NP LAB URINE ORDERABLES F inal Result Performing Organization Address [facility] de Phone Number [facility] [place] [address] * Creatinine, urine, random (02/19/2025 6:12 PM CDT) Creatinine Ur 108.5 mg/dL Comment: Interpretive Data No reference range established. Current interpretive data was last revised 2019. Urine 02/19/2025 6:12 PM CDT 02/19/2025 6:47 PM CDT Treasure Toro NP LAB URINE ORDERABLES F inal Result Performing Organization Address [facility] de Phone Number [facility] [place] [address] * (ABNORMAL) Urinalysis, microscopic only (02/19/2025 6:12 PM CDT) WBC, ur 0-5 0 - 5 /HPF RBC, ur 3-5(A) 0 - 2 /HPF [facility] Epithelial cells, squamous, ur 1-5 0 - 5 /HPF [facility] Mucous, ur Present(A) [facility] Urine 02/19/2025 6:12 PM CDT 02/19/2025 6:40 PM CDT Treasure Toro NP LAB URINE ORDERABLES F inal Result Performing Organization Address [facility]/ZIP Co de Phone Number [facility] [place] [address] * POCT glucose (02/19/2025 5:13 PM CDT) Pathologist [facility] Glucose, POC 82 70 - 199 mg/dL Blood 02/19/2025 5:13 PM CDT 02/19/2025 5:13 PM CDT Delilah Adams MD PhD LAB POCT ORDERABLES - DEVICE Final Result Performing Organization Address [facility] [place] [address] * aPTT (02/19/2025 1:31 PM CDT) [facility] aPTT 37 28 - 38 sec Comment: Interpretive Data Heparin therapeutic range: 66.0 - 100.0 seconds. Range based on correlation with therapeutic heparin activity range of 0.3 - 0.7 Units/mL. Current interpretive data was last revised on 2023. Blood 02/19/2025 1:31 PM CDT 02/19/2025 2:24 PM CDT Narrative [facility] - 02/19/2025 2:48 PM CDT Baseline prior to heparin initiation Stephanie Montalvo MANUSCRIPT READER LAB BLOOD ORDERABLES Final Re sult Performing Organization Address City/[facility] Co de Phone Number [facility] [place] [address] * (ABNORMAL) Protime-INR (02/19/2025 1:31 PM CDT) [facility] PT 14.2(H) 9.7 - 13.0 sec INR 1.31(H) 0.90 - 1.20 [facility] Comment: Interpretive data Oral anticoagulant therapeutic ranges: Venous thromboembolism prophylaxis or treatment: 2.0-3.0 CARDIOLOGY Standard range: 2.0-3.0 High-intensity range: 2.5-3.5 Refer to indication-specific guidelines for appropriate target ranges for prosthetic heart valve replacement. Current interpretive data was last revised on 2019. Blood 02/19/2025 1:31 PM CDT 02/19/2025 2:24 PM CDT Narrative [facility] - 02/19/2025 2:48 PM CDT Baseline prior to heparin initiation Stephanie Montalvo MANUSCRIPT READER LAB BLOOD ORDERABLES Final Re sult [facility] [place] [address] * (ABNORMAL) CBC without differential (02/19/2025 1:31 PM CDT) WBC 7.85 3.80 - 9.90 K/cumm Hgb 7.6(L) 13.0 - 17.5 g/dL [facility] Hct 26.5(L) 38.9 - 50.3 % [facility] Plt 283 150 - 400 K/cumm [facility] MPV 9.7 9.1 - 12.3 fL [facility] RBC 3.01(L) 4.30 - 5.80 M/cumm [facility] MCV 88.0 81.3 - 96.4 fL [facility] MCH 25.2(L) 27.1 - 33.3 pg [facility] MCHC 28.7(L) 32.3 - 35.7 g/dL [facility] RDW CV 14.7 11.1 - 14.9 % [facility] RDW SD 46.7 35.7 - 48.1 fL [facility] NRBC abs 0.00 0.00 - 0.01 K/cumm [facility] Blood 02/19/2025 1:31 PM CDT 02/19/2025 2:22 PM CDT Narrative [facility] - 02/19/2025 2:31 PM CDT Baseline prior to heparin initiation Stephanie Montalvo MANUSCRIPT READER LAB BLOOD ORDERABLES Final Re sult [facility] [place] [address] * POCT glucose (02/19/2025 12:19 PM CDT) Glucose, POC 89 70 - 199 mg/dL Blood 02/19/2025 12:1 9 PM CDT 02/19/2025 12:19 PM CDT us Delilah Adams MD PhD LAB POCT ORDERABLES - DEVICE Final Result Performing Organization Address [facility] Co de Phone Number [facility] DAMON [facility] [place] [address] * US Kidney Complete (02/19/2025 11:47 AM [...] Masood Georges M.D., Ph.D us Treasure Toro MANUSCRIPT READER IMG US PROCEDURES Magda l Result * POCT glucose (02/19/2025 8:07 AM CDT) Glucose, POC 87 70 - 199 mg/dL Blood 02/19/2025 8:07 AM CDT 02/19/2025 8:07 AM CDT us Delilah Adams MD PhD LAB POCT ORDERABLES - DEVICE Final Result [facility] [place] [address] * (ABNORMAL) eGFR (02/18/2025 10:52 PM CDT) [...] ORDERABLES F inal Result Performing Organization Address [facility] de Phone Number [facility] [place] [address] * (ABNORMAL) aPTT (02/18/2025 10:52 PM CDT) [...] ORDERABLES F inal Result Performing Organization Address [facility] de Phone Number [facility] [place] [address] * Protime-INR (02/18/2025 10:52 PM CDT) PT 13.0 9.7 - 13.0 sec INR 1.20 0.90 - 1.20 [facility] Comment: Interpretive data Oral anticoagulant therapeutic ranges: Venous thromboembolism prophylaxis or treatment: 2.0-3.0 CARDIOLOGY Standard range: 2.0-3.0 High-intensity range: 2.5-3.5 Refer to indication-specific guidelines for appropriate target ranges for prosthetic heart valve replacement. Current interpretive data was last revised on 2019. Blood 02/18/2025 10:5 2 PM CDT 02/18/2025 11:59 PM CDT Narrative [facility] - 02/19/2025 12:19 AM CDT Baseline prior to apixaban initiation. Delilah Adams MD PhD LAB BLOOD ORDERABLES F inal Result Performing Organization Address [facility]/ZIP Co de Phone Number [facility] [place] [address] * (ABNORMAL) CBC without differential (02/18/2025 10:52 PM CDT) [facility] WBC 8.3 3.8 - 9.9 K/cumm Hgb 7.6(L) 13.0 - 17.5 g/dL [facility] Hct 26.2(L) 38.9 - 50.3 % [facility] Plt 260 150 - 400 K/cumm [facility] MPV 10.2 9.1 - 12.3 fL [facility] RBC 3.00(L) 4.30 - 5.80 M/cumm [facility] MCV 87.3 81.3 - 96.4 fL [facility] MCH 25.3(L) 27.1 - 33.3 pg [facility] MCHC 29.0(L) 32.3 - 35.7 g/dL [facility] RDW CV 14.6 11.1 - 14.9 % [facility] RDW SD 45.9 35.7 - 48.1 fL [facility] NRBC abs 0.00 0.00 - 0.01 K/cumm [facility] Blood 02/18/2025 10:5 2 PM CDT 02/18/2025 11:29 PM CDT Delilah Adams MD PhD LAB BLOOD ORDERABLES F inal Result Performing Organization Address City/[facility]/ZIP Co de Phone Number [facility] [place] [address] * Phosphorus (02/18/2025 10:52 PM CDT) Phosphorus, pl 2.8 2.3 - 4.5 mg/dL Blood 02/18/2025 10:5 2 PM CDT 02/18/2025 11:29 PM CDT Delilah Adams MD PhD LAB BLOOD ORDERABLES F inal Result Performing Organization Address City/[facility]/ZIP Co de Phone Number [facility] [place] [address] * Magnesium (02/18/2025 10:52 PM CDT) Pathologist [facility] Magnesium 2.5 1.4 - 2.5 mg/dL Blood 02/18/2025 10:5 2 PM CDT 02/18/2025 11:29 PM CDT Delilah Adams MD PhD LAB BLOOD ORDERABLES F inal Result Performing Organization Address City/[facility] Co de Phone Number [facility] [place] [address] * (ABNORMAL) Hepatic function panel (02/18/2025 10:52 PM CDT) Pathologist [facility] Bilirubin, total 0.3 0.1 - 1.2 mg/dL Bilirubin, direct <0.2 0.1 - 0.3 mg/dL [facility] Protein, pl 7.0 6.5 - 8.5 g/dL [facility] Albumin 2.6(L) 3.5 - 5.0 g/dL [facility] Alk phos 85 40 - 130 Units/L [facility] ALT 8 7 - 55 Units/L [facility] AST 24 10 - 50 Units/L [facility] Blood 02/18/2025 10:5 2 PM CDT 02/18/2025 11:30 PM CDT Narrative [facility] - 02/18/2025 11:58 PM CDT Baseline prior to apixaban initiation. us Delilah Adams MD PhD LAB BLOOD ORDERABLES F inal Result Performing Organization Address City/[facility]/ZIP Co de Phone Number [facility] Department [place] [address] * (ABNORMAL) Basic metabolic panel (02/18/2025 10:52 PM CDT) Sodium 146(H) 135 - 145 mmol/L Potassium, pl 3.9 3.3 - 4.9 mmol/L [facility] Chloride 115(H) 97 - 110 mmol/L [facility] CO2 20(L) 22 - 32 mmol/L [facility] Anion gap 11 2 - 15 mmol/L [facility] BUN 37(H) 6 - 25 mg/dL [facility] Creatinine 1.93(H) 0.80 - 1.30 mg/dL [facility] Glucose 94 70 - 199 mg/dL [facility] Comment: Interpretive Data Fasting glucose >/= 126 [...] 2022. Calcium 8.4(L) 8.5 - 10.3 mg/dL [facility] Blood 02/18/2025 10:5 2 PM CDT 02/18/2025 11:29 PM CDT us Delilah Adams MD PhD LAB BLOOD ORDERABLES F inal Result Performing Organization Address [facility]/ZIP Co de Phone Number [facility] [place] [address] * POCT glucose (02/18/2025 8:18 PM CDT) Glucose, POC 85 70 - 199 mg/dL Blood 02/18/2025 8:18 PM CDT 02/18/2025 8:18 PM CDT Delilah Adams MD PhD LAB POCT ORDERABLES - DEVICE Final Result Performing Organization Address City/[facility] Co de Phone Number [facility] [place] [address] * POCT glucose (02/18/2025 6:52 PM CDT) Glucose, POC 79 70 - 199 mg/dL Blood 02/18/2025 6:52 PM CDT 02/18/2025 6:52 PM CDT Delilah Adams MD PhD LAB POCT ORDERABLES - DEVICE Final Result Performing Organization Address [facility] Co de Phone Number [facility] [place] [address] * POCT glucose (02/18/2025 3:43 PM CDT) Glucose, POC 87 70 - 199 mg/dL Blood 02/18/2025 3:43 PM CDT 02/18/2025 3:43 PM CDT Delilah Adams MD PhD LAB POCT ORDERABLES - DEVICE Final Result Performing Organization Address City/[facility] Co de Phone Number [facility] [place] [address] * POCT glucose (02/18/2025 12:08 PM CDT) Glucose, POC 92 70 - 199 mg/dL Blood 02/18/2025 12:0 8 PM CDT 02/18/2025 12:08 PM CDT Delilah Adams MD PhD LAB POCT ORDERABLES - DEVICE Final Result [facility] [place] [address] * TRANSTHORACIC ECHO (TTE) COMPLETE W DOPPLER/CF W CONTRAST (02/18/2025 10:01 AM CDT) Anatomical Region Laterality Modality Ultrasound 02/18/2025 8:57 AM CDT Narrative 02/18/2025 11:[address] [facility] [place] [address] Transthoracic Echocardiographic Report Patient Name: GREGORY KAT A : 1955 (70y 1m) Gender: M Study Date: 02/18/2025 08:57:06 AM Ht(Inch): 73 Wt(Lb): 300.05 BSA: 2.65 Refractory Tile Helper: Eliseo Moncada [facility] Location: [id number] Order Provider: DELILAH ADAMS Heart Rate: 81 [...] Note Morales Patterson MD PhD - 02/18/2025 [facility] [place] [address] Transthoracic Echocardiographic Report Patient Name: GREGORY KAT A : 1955 (70y 1m) Gender: M Study Date: 02/18/2025 08:57:06 AM Ht(Inch): 73 Wt(Lb): 300.05 BSA: 2.65 Refractory Tile Helper: Eliseo Moncada [facility] Location: [id number] Order Provider:DELILAH ADAMS Heart Rate: 81 BMI: [...] LA Length 2C 7.67 cm MV Decel [id number] msec [ 104.00 - 258.00 ] LA [...] [ 3.10 - 3.70 ] PI ED Kbk594.63 m/sec Ao Root Index 1.75 cm/m2 [ 1.00 - 2.00 ] Asc Ao Diam 2D3.99 cm Asc Ao Index1.51 cm/m2 Electronically Signed By: Morales Patterson MD, PHD 02/18/2025 11:11:14 AM CDT Delilah Adams MD PhD CV ECHO PROCEDURES Fin al Result * Norovirus PCR Stool (02/18/2025 5:04 AM CDT) Pathologist [facility] Norovirus GI RNA Not Detected Not Detected [facility] Norovirus GII RNA Not Detected Not Detected [facility] Comment: Interpretive data: Testing performed at the [facility] using the [employer] Xpert Norovirus Assay. This assay uses nucleic [...] 5:04 AM CDT 02/18/2025 5:20 AM CDT Delilah Adams MD PhD LAB MICROBIOLOGY - GEN ERAL ORDERABLES Final Result [facility] [place] [address] [facility] * (ABNORMAL) eGFR (02/18/2025 12:23 AM CDT) Pathologist [facility] eGFR 31(L) >=60 mL/min/1. 73 m2 Comment: [...] ORDERABLES F inal Result Performing Organization Address [facility] Co de Phone Number [facility] [place] [address] * (ABNORMAL) aPTT (02/18/2025 12:23 AM CDT) Pathologist [facility] aPTT 70(H) 28 - 38 sec Comment: Interpretive Data Heparin therapeutic range: 66.0 - 100.0 seconds. Range based on correlation with therapeutic heparin activity range of 0.3 - 0.7 Units/mL. Current interpretive data was last revised on 2023. Blood 02/18/2025 12:2 3 AM CDT 02/18/2025 1:09 AM CDT Narrative [facility] - 02/18/2025 1:41 AM CDT STAT PTT [...] ORDERABLES F inal Result Performing Organization Address City/[facility]/ZIP Co de Phone Number [facility] [place] [address] * (ABNORMAL) CBC without differential (02/18/2025 12:23 AM CDT) [facility] WBC 9.6 3.8 - 9.9 K/cumm Hgb 7.9(L) 13.0 - 17.5 g/dL [facility] Hct 27.2(L) 38.9 - 50.3 % [facility] Plt 317 150 - 400 K/cumm [facility] MPV 9.5 9.1 - 12.3 fL [facility] RBC 3.08(L) 4.30 - 5.80 M/cumm [facility] MCV 88.3 81.3 - 96.4 fL [facility] MCH 25.6(L) 27.1 - 33.3 pg [facility] MCHC 29.0(L) 32.3 - 35.7 g/dL [facility] RDW CV 14.6 11.1 - 14.9 % [facility] RDW SD 46.5 35.7 - 48.1 fL [facility] NRBC abs 0.00 0.00 - 0.01 K/cumm [facility] Blood 02/18/2025 12:2 3 AM CDT 02/18/2025 1:01 AM CDT Delilah Adams MD PhD LAB BLOOD ORDERABLES F inal Result [facility] [place] [address] * Phosphorus (02/18/2025 12:23 AM CDT) Pathologist [facility] Phosphorus, pl 3.1 2.3 - 4.5 mg/dL Blood 02/18/2025 12:2 3 AM CDT 02/18/2025 1:01 AM CDT Delilah Adams MD PhD LAB BLOOD ORDERABLES F inal Result [facility] [place] [address] * (ABNORMAL) Magnesium (02/18/2025 12:23 AM CDT) Pathologist [facility] Magnesium 2.6(H) 1.4 - 2.5 mg/dL Blood 02/18/2025 12:2 3 AM CDT 02/18/2025 1:01 AM CDT Delilah Adams MD PhD LAB BLOOD ORDERABLES F inal Result Performing Organization Address City/[facility]/ZIP Co de Phone Number [facility] Department [place] [address] * (ABNORMAL) Basic metabolic panel (02/18/2025 12:23 AM CDT) Pathologist [facility] Sodium 142 135 - 145 mmol/L Potassium, pl 4.1 3.3 - 4.9 mmol/L [facility] Chloride 109 97 - 110 mmol/L [facility] CO2 20(L) 22 - 32 mmol/L [facility] Anion gap 13 2 - 15 mmol/L [facility] BUN 46(H) 6 - 25 mg/dL [facility] Creatinine 2.18(H) 0.80 - 1.30 mg/dL [facility] Glucose 109 70 - 199 mg/dL [facility] Comment: Interpretive Data Fasting glucose >/= 126 [...] 2022. Calcium 8.7 8.5 - 10.3 mg/dL [facility] Blood 02/18/2025 12:2 3 AM CDT 02/18/2025 1:01 AM CDT Delilah Adams MD PhD LAB BLOOD ORDERABLES F inal Result Performing Organization Address [facility]/ZIP Co de Phone Number [facility] [place] [address] * POCT glucose (02/17/2025 11:01 PM CDT) Glucose, POC 128 70 - 199 mg/dL Blood 02/17/2025 11:0 1 PM CDT 02/17/2025 11:01 PM CDT Delilah Adams MD PhD LAB POCT ORDERABLES - DEVICE Final Result Performing Organization Address City/[facility] Co de Phone Number [facility] [place] [address] * POCT glucose (02/17/2025 5:45 PM CDT) Pathologist [facility] Glucose, POC 123 70 - 199 mg/dL Blood 02/17/2025 5:45 PM CDT 02/17/2025 5:45 PM CDT Delilah Adams MD PhD LAB POCT ORDERABLES - DEVICE Final Result Performing Organization Address [facility] de Phone Number [facility] [place] [address] * C. difficile testing Stool (02/17/2025 4:27 PM CDT) [facility] Result Negative Negative Toxin Result Negative Negative [facility] C. diff result Negative, free toxin Negative, free toxin [facility] C. diff interp Negative for toxigenic Clostridioides (Clostridium) difficile. Analysis was performed using a glutamate dehydrogenase antigen detection assay combined with a C. difficile toxin detection assay. [facility] Stool 02/17/2025 4:27 PM CDT 02/17/2025 7:21 PM CDT Delilah Adams MD PhD LAB MICROBIOLOGY - GEN ERAL ORDERABLES Final Result Performing Organization Address City/[facility]/ZIP Co de Phone Number [facility] [place] [address] * (ABNORMAL) Infection Prevention VRE Culture Stool (02/17/2025 4:26 PM CDT) Report Final Report: Enterococcus species, vancomycin resistant (.) Organism ENTEROCOCCUS SPECIES, VANCOMYCIN RESISTANT [facility] Stool 02/17/2025 4:26 PM CDT 02/17/2025 10:52 PM CDT Narrative [facility] - 02/18/2025 9:56 PM CDT Surveillance culture for Infection Prevention purposes only; results indicate colonization, not infection requiring treatment. Testing performed by [facility] ([phone]). Delilah Adams MD PhD LAB MICROBIOLOGY - GEN ERAL ORDERABLES Final Result Performing Organization Address City/[facility] Co de Phone Number [facility] Department [place] [address] * POCT glucose (02/17/2025 2:06 PM CDT) Glucose, POC 114 70 - 199 mg/dL Blood 02/17/2025 2:06 PM CDT 02/17/2025 2:06 PM CDT Delilah Adams MD PhD LAB POCT ORDERABLES - DEVICE Final Result [facility] [place] [address] * POCT glucose (02/17/2025 8:33 AM CDT) Glucose, POC 120 70 - 199 mg/dL Blood 02/17/2025 8:33 AM CDT 02/17/2025 8:33 AM CDT Delilah Adams MD PhD LAB POCT ORDERABLES - DEVICE Final Result Performing Organization Address [facility] Co de [facility] [place] [address] * (ABNORMAL) eGFR (02/17/2025 6:41 AM CDT) [...] ORDERABLES F inal Result Performing Organization Address [facility] Co de Phone Number [facility] [place] [address] * (ABNORMAL) aPTT (02/17/2025 6:41 AM CDT) aPTT 83(H) 28 - 38 sec Comment: Interpretive Data Heparin therapeutic range: 66.0 - 100.0 seconds. Range based on correlation with therapeutic heparin activity range of 0.3 - 0.7 Units/mL. Current interpretive data was last revised on 2023. Blood 02/17/2025 6:41 AM CDT 02/17/2025 6:55 AM CDT Narrative [facility] - 02/17/2025 7:24 AM CDT STAT PTT [...] PhD LAB BLOOD ORDERABLES F inal Result [facility] [place] [address] * (ABNORMAL) CBC without differential (02/17/2025 6:41 AM CDT) [facility] WBC 8.4 3.8 - 9.9 K/cumm Hgb 7.2(L) 13.0 - 17.5 g/dL [facility] Hct 23.8(L) 38.9 - 50.3 % [facility] Plt 305 150 - 400 K/cumm [facility] MPV 9.6 9.1 - 12.3 fL [facility] RBC 2.80(L) 4.30 - 5.80 M/cumm [facility] MCV 85.0 81.3 - 96.4 fL [facility] MCH 25.7(L) 27.1 - 33.3 pg [facility] MCHC 30.3(L) 32.3 - 35.7 g/dL [facility] RDW CV 14.6 11.1 - 14.9 % [facility] RDW SD 45.1 35.7 - 48.1 fL [facility] NRBC abs 0.00 0.00 - 0.01 K/cumm [facility] Blood 02/17/2025 6:41 AM CDT 02/17/2025 6:50 AM CDT Delilah Adams MD PhD LAB BLOOD ORDERABLES F inal Result Performing Organization Address [facility] Co de Phone Number [facility] Department [place] [address] * (ABNORMAL) Basic metabolic panel (02/17/2025 6:41 AM CDT) Pathologist [facility] Sodium 142 135 - 145 mmol/L Potassium, pl 4.1 3.3 - 4.9 mmol/L [facility] Chloride 104 97 - 110 mmol/L [facility] CO2 26 22 - 32 mmol/L [facility] Anion gap 12 2 - 15 mmol/L [facility] BUN 48(H) 6 - 25 mg/dL [facility] Creatinine 2.15(H) 0.80 - 1.30 mg/dL [facility] Glucose 119 70 - 199 mg/dL [facility] Comment: Interpretive Data Fasting glucose >/= 126 [...] 2022. Calcium 8.5 8.5 - 10.3 mg/dL [facility] Blood 02/17/2025 6:41 AM CDT 02/17/2025 6:50 AM CDT us Delilah Adams MD PhD LAB BLOOD ORDERABLES F inal Result Performing Organization Address [facility] Co de Phone Number [facility] [place] [address] * (ABNORMAL) aPTT (02/17/2025 1:07 AM CDT) aPTT 68(H) 28 - 38 sec Comment: Interpretive Data Heparin therapeutic range: 66.0 - 100.0 seconds. Range based on correlation with therapeutic heparin activity range of 0.3 - 0.7 Units/mL. Current interpretive data was last revised on 2023. Blood 02/17/2025 1:07 AM CDT 02/17/2025 1:17 AM CDT Narrative [facility] - 02/17/2025 1:40 AM CDT STAT PTT [...] PhD LAB BLOOD ORDERABLES F inal Result [facility] One [facility] [place] [address] * (ABNORMAL) Lipid panel (02/16/2025 12:16 AM [...] on 2018. Triglycerides 146 <=149 mg/dL [facility] Comment: Hemolyzed; result may be falsely elevated [...] revised on 2018. HDL 23(L) >=40 mg/dL [facility] Comment: Interpretive Data Ages < or = 19 years Acceptable: >45 mg/dL Borderline low: 40-45 mg/dL Low: <40 mg/dL Ages > or = 20 years Desirable: >or= 60 mg/dL Low: <40 mg/dL Literature References: 1. Expert Panel on Integrated Guidelines for Cardiovascular Health and Risk Reduction in Children and Adolescents. Pediatrics 2011;128:S213 2. NCEP Expert Panel. Circulation 2003;110:227 Current Interpretive Data was last revised on 2018. LDL, calculated 59 <=129 mg/dL [facility] Comment: Interpretive Data Ages < or = 19 years Acceptable: <110 mg/dL Borderline high: 110-129 mg/dL High: >or= 130 mg/dL Ages > or = 20 years Optimal: <100 mg/dL Near optimal: 100-129 mg/dL Borderline high: 130-159 mg/dL High: >160 mg/dL Calculated using the Hernandez LDL-C estimating equation. This equation was implemented on 2024. Prior to this date LDL-C was estimated using the Friedewald equation. Literature References: 1. Expert Panel on Integrated Guidelines for Cardiovascular Health and Risk Reduction in Children and Adolescents. Pediatrics 2011;128:S213 2. NCEP Expert Panel. Circulation 2004;110:227 3. David M et al. KATHI Cardiol. 2020 March 21;5(5):540-548. doi: 10.1001/jamacardio.2020.0013 Current Interpretive Data was last revised on 2024. Non-HDL Cholesterol 85 mg/dL [facility] Comment: Interpretive Data Ages < or = [...] last revised on 2018. Chol/HDL ratio [address] 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 Expl anation ADVANCE DIRECTIVE 03/06/2025 11:59 AM MARLA R OF [employer] STITCHER-MEDICAL ADVANCE DIRECTIVE 02/18/2025 8:38 AM POWER OF [employer]LE [employer]REE STITCHER-MEDICAL * Full Code (Latest Code Status on File) Date Activated Date Inactivated Comments 05/04/2025 2:55 PM 05/13/2025 6:58 PM * Full Code Date Activated Date Inactivated Comments 02/15/2025 8:29 PM 03/02/2025 6:51 PM Healthcare Agents on File Name Relationship Healthcare Agent Relationshi p Communication Landy Kat Spouse Health Care Agent Care Teams [employer] Relationship Specialty Start Date End Date Bryan Hough MD PCP - General 09/22/21 Delilah Adams MD PhD [id number] [place] [address] Consulting Physician Vascular Surgery 03/01/25
--- OUTSIDE RECORDS SUMMARY | 2025-05-20 11:30 | XMS_ITS | Data Portability ---
Author Organization [place] [facility] [place] [facility], Main Office Address [address] [place] [address] Assessment Encounter Date Assessment Date Assessment LastModified by Organization Details LastModified Time 05/29/2024 05/29/2024 This note is dictated and transcribed by [employer]. Cardiopulmonary Supervisor variances may occur. Despite proofreading, typographical errors may occur. Occasional wrong-word or 'fbsck-r-vfsp' substitutions may have occurred due to the inherent limitations of voice recording. Read the chart carefully and recognize, using context, where substitutions have occurred. Not available 06/07/2024 09:53:59 06/06/2024 06/06/2024 This note is dictated and transcribed by [employer]. Cardiopulmonary Supervisor variances may occur. Despite proofreading, typographical errors may occur. Occasional wrong-word or 'sxyal-t-busg' substitutions may have occurred due to the inherent limitations of voice recording. Read the chart carefully and recognize, using context, where substitutions have occurred. Not available 06/07/2024 09:50:47 08/28/2024 08/28/2024 This note is dictated and transcribed by [employer]. Cardiopulmonary Supervisor variances may occur. Despite proofreading, typographical errors may occur. Occasional wrong-word or 'ugpne-f-afmg' substitutions may have occurred due to the inherent limitations of voice recording. Read the chart carefully and recognize, using context, where substitutions have occurred. Not available 08/28/2024 16:09:23 02/13/2025 02/13/2025 This note is dictated and transcribed by [employer]. Cardiopulmonary Supervisor variances may occur. Despite proofreading, typographical errors may occur. Occasional wrong-word or 'ceyck-v-qyhm' substitutions may have occurred due to the [...] By Organization Details Last Modified Time 04/02/2024 [id number] 1. Will increase Metolazone from 2.5 to [...] Details Recorded Time Edema of lower extremity 484986250 Active 2022 Not Available [facility] 4 22:46:30 Renewal of prescript ion Active 2021 Not Available [facility] 4 22:46:30 Acute kidney injury 14647789 Active Not Available [facility] 4 22:46:30 Standard chest X-ray abnormal 187295832 Active 2021 Not Available [facility] 4 22:46:30 Neuropath y due to diabetes mellitus 005049494 Active 2021 Not Available [facility] 4 22:46:30 Pneumonia 119380742 Active 2021 Not Available [facility] 4 22:46:30 Edema 366395948 Active 2021 Not Available [facility] 4 22:46:30 Swelling of scrotum 279506951 Completed Not Available [facility] 3 05:56:42 Celluliti s of finger 00542573 Completed Not Available [facility] 3 05:56:42 Abscess of scrotum 88446172 Completed Not Available [facility] 3 05:56:42 Low back pain 989164289 Active 2021 Not Available [facility] 4 22:46:30 Dog bite of hand 301197556 Active 2021 Not Available [facility] 4 22:46:30 Type 2 diabetes mellitus without complicat ion 083647370 Active Not Available [facility] 4 22:46:30 Bronchiti s 66894300 Active 2021 Not Available [facility] 4 22:46:30 Celluliti s of scrotum 05515363 Completed Not Available [facility] 3 05:56:43 Dyslipide quan 688021911 Active Not Available [facility] 4 22:46:30 Migraine 02290483 Active 2021 Not Available [facility] 4 22:46:30 Osteoarth ritis 849359188 Active Not Available [facility] 4 22:46:30 Obesity 065701054 Active Not Available [facility] 4 22:46:30 Diabetic periphera l neuropath y 085560881 Active 2021 Not Available [facility] 4 22:46:30 Chronic diastolic heart failure 593535097 Active 2021 Not Available [facility] 4 22:46:30 Screening for malignant neoplasm of prostate Active 2021 Not Available [facility] 4 22:46:31 Dysuria 90192256 Completed Not Available [facility] 3 05:56:43 Cough 27958209 Active 2021 Not Available [facility] 4 22:46:31 Upper respirato ry infection 29052729 Active 2021 Not Available [facility] 4 22:46:31 Acute upper respirato ry infection 14415643 Active 2021 Not Available [facility] 4 22:46:31 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 55991976 Active 2020 Not Available [facility] 4 22:46:31 Essential hypertens ion 74686249 Active Not Available [facility] 4 22:46:31 Pleural effusion 10397942 Active 2021 Not Available [facility] 4 22:46:31 Diabetes mellitus 76104738 Completed Mikki Arellano, NELIDA harden, [place] [facility] 3 17:44:13 Hyperglyc emia 56035280 Active Not Available [facility] 4 22:46:31 Neck pain 13497471 Active 2021 Not Available [facility] 4 22:46:31 COVID-19 008077140 Active 2021 Not Available [facility] 4 22:46:31 Hyperlipi demia 89065058 Active 2022 Not Available [facility] 4 22:46:31 Chronic ulcer of heel 21272786101 474448 Active 2022 Not Available [facility] 4 22:46:30 Periphera l arterial occlusive disease 855260191 Active 2022 Not Available [facility] 4 22:46:30 Open wound of right foot 44237820623 558098 Active 2022 Not Available [facility] 4 22:46:30 Neuropath y 033919304 Active 2022 Not Available [facility] 4 22:46:30 Diabetes mellitus 07954467 Active 2022 Not Available [facility] 4 22:46:31 Open wound of right lower leg 98964173249 485879 Active 2023 Not Available [facility] 4 22:46:30 Periphera l vascular disease 276702639 Active 2023 Daniel Roland, [place] [address] [facility], [address], [place], [address] , [employer] [facility] 4 14:54:34 Dystrophi a unguium 80074626 Active 2023 Daniel Roland DPM [address], [address], [place], [address] , [employer] [facility] 4 14:56:34 Ulcer of toe 420922081 Active 2023 Daniel Roland DPM [address], [address], [place], [address] , [employer] [facility] 4 14:56:46 Ulcer of lower extremity 40841708 Active 2023 Daniel Roland DPM [address], [address], [place], [address] , [email or web address] 4 14:57:07 Lymphedem a of lower extremity 317986899 Active 2023 Daniel Roland DPM [address], [address], [place], [address] , [employer] [facility] 4 14:57:13 Abrasion of skin of lower limb 897942667 Active 2023 Daniel Roland DPM [address], [address], [place], [address] , [employer] [facility] 4 09:50:50 Ulcer of lower extremity 31044007 Active 2023 Daniel Roland DPM [address], [address], [place], [address] , [employer] [facility] 4 09:51:13 Ulcer of right foot due to type 2 diabetes mellitus 82831029536 171953 Active 2024 Daniel Roland DPM [address], [address], [place], [address] , [employer] [facility] [employer] [facility] 5 16:44:59 Ulcer of left foot due to type 2 diabetes mellitus 03200487280 262791 Active 2024 Daniel Roland DPM [address], [address], [place], [address] , [facility] [employer] [facility] [employer] [facility] 16:45:04 Lymphedem a of bilateral lower limbs 34228900756 079253 Active 2024 Daniel Roland DPM [address], [address], [place], [address] , [facility] [employer] [facility] [employer] [facility] 16:45:55 Notes:Some problems listed i n Documents: #[id number], #[id number] could not be added to this patient's chart. Please review these documents and add these problems to the patient's chart manually as needed. Problem Notes None recorded. Procedures Surgical History Date Name Laterality Status Provider Name and Address Organization Details Recorded Time 02/14/20 25 Wound Care-Podiatry completed Guerline Humphreys RN [facility] [employer] [facility] 02/13/2025 16:29:00 08/28/20 24 Nail Debridement completed Daniel Roland DPM [address], [address], [place], [address], [facility] [employer] [facility] [employer] [facility] 08/28/2024 16:07:22 06/06/20 24 Wound Care-Podiatry completed Guerline Humphreys RN [facility] [employer] [facility] 06/06/2024 16:31:33 05/29/20 24 Nail Debridement completed Daniel Roland DPM [address], [address], [place], [address], [facility] [employer] [facility] [employer] [facility] 06/07/2024 09:55:15 04/02/20 24 Blank Procedure completed Paolo Ewing RN [facility] [employer] [facility] 04/02/2024 11:40:22 02/22/20 24 Wound Care-Podiatry completed Daniel Roland DPM [address], [address], [place], [address], [facility] [employer] [facility] [employer] [facility] 02/22/2024 12:16:33 02/22/20 24 Callus Debridement, One completed Daniel Roland DPM [address], [address], [place], [address], [employer] 02/22/2024 12:16:39 02/08/20 24 Wound Care-Podiatry completed Daniel Roland DPM [address], [address], [place], [address], [employer] [facility] 02/08/2024 16:03:13 01/25/20 24 Wound Care-Podiatry completed Daniel Roland DPM [address], [address], [place], [address], [employer] 01/26/2024 15:09:56 01/11/20 24 Wound Care-Podiatry completed Daniel Roland DPM [address], [address], [place], [address], [employer] 01/11/2024 15:05:23 12/28/19 24 Wound Care-Podiatry completed Daniel Roland DPM [address], [address], [place], [address], [employer] 12/28/2023 14:58:19 12/14/19 24 Wound Care-Podiatry completed Guerline Humphreys RN [facility] [employer] 12/14/2023 15:19:29 11/02/20 23 Wound Care-Podiatry completed Daniel Roland DPM [address], [address], [place], [address], [employer] 11/02/2023 15:19:28 05/25/20 23 Wound Care-Podiatry completed Brittani Núñez RN [employer] 06/01/2023 15:07:13 03/03/20 15 Explore scrotum completed Not Available [facility] 11/2022 05:52:58 03/03/20 15 incision and drainage of abscess completed Not Available [facility] 01/19/2023 05:52:58 Imaging Results None recorded. Procedure [...] completed Not Available Not Available Not Available OneTouch Ultra Test strips use to test blood [...] with needle 1 mL 31 gauge x 04/05 completed [...] with needle 1 mL 30 gauge x 7/16 10/05 completed Not Available Not Available Not [...] e 50 mcg/actua tion nasal spray,[employer] [place] 2 sprays every day by intranas al [...] Ult-Fine II 1 mL 31 gauge x 5/16 10/05 completed Not [...] /min 149 mm[Hg] 72 mm[Hg] Melissa Esquivel [facility] [employer] [facility] 5 16:03:31 Date Recorded Body height Oxygen saturation Oxygen saturation in Arterial blood by Pulse oximetry Heart rate Body temperature Systolic blood pressure Diastolic blood pressure Provider Name and Address Organization Details Last Updated DateTime 4 182.88 cm 99 % 99 % 76 /min 98.4 [degF] 104 mm[Hg] 61 mm[Hg] Paolo Ewing RN [facility] [employer] [facility] 4 11:15:42 Date Recorded Body height Heart rate Systolic blood pressure Diastolic blood pressure Provider Name and Address Organization Details Last Updated DateTime 05/29/2024 182.88 cm 85 /min 144 mm[Hg] 94 mm[Hg] Tisha Villarreal CNA [facility] [employer] [facility] 05/29/2024 14:38:07 Date Recorded Body height Heart rate Respiratory rate Body temperature Oxygen saturation Oxygen saturation in Arterial blood by Pulse oximetry Systolic blood pressure Diastolic blood pressure Provider Name and Address Organization Details Last Updated DateTime 4 182.88 cm 101 /min 18 /min 98.1 [degF] 97 % 97 % 126 mm[Hg] 76 mm[Hg] Guerline Humphreys RN [facility] [employer] [facility] 4 16:34:03 Date Recorded Body height Heart rate Respiratory rate Oxygen saturation Oxygen saturation in Arterial blood by Pulse oximetry Provider Name and Address Organization Details Last Updated DateTime 4 182.88 cm 98 /min 16 /min 97 % 97 % Mary David [facility] [employer] [facility] 15:39:53 Social History Question Answer Notes LastModified by Organization Details LastModified Time Tobacco Smoking Status Never Smoker Not Available [facility] 01/19/2023 05:52:19 Do You Have An Advance Directive? No MIGRATION.0301 [id number] Information not available 01/19/2023 Are You Blind Or Do You Have Difficulty Seeing? Yes MIGRATION.0301 [id number] Information not available 01/19/2023 What Is Your Level Of Caffeine Consumption? None MIGRATION.030 972659 Information not available 01/19/2023 In The 14 Days Before Symptom Onset, Have You Had Close Contact With A Laboratory-confi rmed COVID-19 While That Case Was Ill? No MIGRATION.030 [id number] Information not available 01/19/2023 In The 14 Days Before Symptom Onset, Have You Had Close Contact With A Person Who Is Under Investigation For COVID-19 While That Person Was Ill? No MIGRATION.030 077116 Information not available 01/19/2023 Are You Deaf Or Do You Have Serious Difficulty Hearing? No MIGRATION.030 558604 Information not available 01/19/2023 What Type Of Diet Are You Following? REGULAR MIGRATION.030 023617 Information not available 01/19/2023 What Is The Highest Grade Or Level Of School You Have Completed Or The Highest Degree You Have Received? [id number] MIGRATION.300 [id number] Information not available 01/19/2023 Have There Been Any Changes To Your Family Or Social Situation? No MIGRATION.030 131019 Information not available 01/19/2023 What Is The Fluoride Status Of Your Home? Unknown MIGRATION.030 604887 Information not available 01/19/2023 Are There Any Guns Present In Your Home? Yes MIGRATION.030 622667 Information not available 01/19/2023 Do You Use Insect Repellent Routinely? No MIGRATION.030 765035 Information not available 01/19/2023 Where Do You Live? SingleLevelHouse With Basement MIGRATION.030 516374 Information not available 01/19/2023 Do You Have A Medical Power Of Ticketing Clerk? No MIGRATION.030 291045 Information not available 01/19/2023 What Was The Date Of Your Most Recent Tobacco Screening? 10/24/2023 [email or web address] Information not available 10/24/2023 Do You Have Any Pets? Yes MIGRATION.0301 878825 Information not available 01/19/2023 What Is Your Relationship Status? MIGRATION.030 243652 Information not available 01/19/2023 Do You Use Your Seat Belt Or Car Seat Routinely? Yes MIGRATION.030 330726 Information not available 01/19/2023 Do You Have Smoke And Carbon Monoxide Detectors In Your Home? Yes MIGRATION.0301 147246 Information not available 01/19/2023 Are You Passively Exposed To Smoke? No MIGRATION.0301 870068 Information not available 01/19/2023 Are There Any Smokers In Your House? No MIGRATION.0301 935844 Information not available 01/19/2023 What Types Of Sporting Activities Do You Participate In? None MIGRATION.0301 375090 Information not available 01/19/2023 Do You Use Sunscreen Routinely? No MIGRATION.0301 954172 Information not available 01/19/2023 Has Tobacco Cessation Counseling Been Provided? No Not Needed-nev er Smoked MIGRATION.0301 725812 Information not available 01/19/2023 Have You Recently Traveled Abroad? No MIGRATION.0301 920510 Information not available 01/19/2023 Do You Have Difficulty Walking Or Climbing Stairs? Yes MIGRATION.0301 935401 Information not available 01/19/2023 Do You Have Any Dietary Restrictions? No MIGRATION.0301 565026 Information not available 01/19/2023 Sex: Male Functional Status Question Answer Note LastModified by OrganShelfieat ion Details LastModified Time Do you use any illicit or recreational drugs? No MIGRATION.89290 84773 Information not available 01/19/2023 Do you or have you ever used any other forms of tobacco or nicotine? No MIGRATION.61710 72609 Information not available 01/19/2023 What is your level of alcohol consumption? Occasional MIGRATION.38641 95542 Information not available 01/19/2023 Do you have transportation difficulties? Yes Patient does not drive. MIGRATION.47319 58800 Information not available 01/19/2023 Are you able to walk? YESASSIST cane MIGRATION.93219 98471 Information not available 01/19/2023 Do you have difficulty doing errands alone? Yes Patient does not drive. MIGRATION.79899 56210 Information not available 01/19/2023 Are you able to care for yourself? Yes MIGRATION.39542 24446 Information not available 01/19/2023 What is your occupation? retired MIGRATION.23775 64616 Information not available 01/19/2023 Do you have difficulty dressing or bathing? No MIGRATION.80650 15309 Information not available 01/19/2023 What is your exercise level? None MIGRATION.76685 50809 Information not available 01/19/2023 Mental Status Question Answer Note LastModified by Organizat ion Details LastModified Time Do you feel stressed (tense, restless, nervous, or anxious, or unable to sleep at night)? [id number] MIGRATION.80886505 26 Information not available 01/19/2023 Do you have difficulty concentrating, remembering or making decisions? No MIGRATION.25695403 26 Information not available 01/19/2023 Family History Relationship Description Onset Age of this Age Resolved Age Notes LastModified by Organization Details LastModified Time Father Heart disease MIGRATION.409 [id number] Not available 01/19/2023 05:52:59 Mother Malignant tumor of breast MIGRATION.037 [id number] Not available 01/19/2023 05:52:59 Medical History Condition Response NERVE DISEASE N BLINDNESS N RHEUMATIC FEVER N KIDNEY STONES N BLADDER PROBLEMS N MRSA N OTHER # 1 N POLIO N LUNG DISEASE/DISORDER N HISTORY OF DRUG ABUSE N COPD N RADIATION / CHEMOTHERAPY N Other # 2 N BLOOD DISEASES [...] HAVE YOU BEEN HOSPITALIZED OR SEEN IN [facility] IN THE PAST YEAR ? Y [...] preservative free, adsorbed 2 completed Not Available [facility] 01/01/2024 22:46:31 Past Encounters Encounter ID Performer Location Encounter Start Date Encounter Closed Date Diagnosis/Indication Diagnosis SNOMED-CT Code Diagnosis ICD10 Code Diagnosis Note [id number] Bryan Hough MD [facility] [address] [facility] [address] [address] 08/10/2021 00:00:00 08/23/2021 17:37:52 [id number] Bryan Hough MD [facility] Internal [facility] [address] [facility] [address] 08/21/2021 00:00:00 08/23/2021 11:41:29 [id number] Bryan Hough MD [facility] 15 [address] [facility] [address] 09/18/2021 00:00:00 09/18/2021 21:33:06 [id number] Bryan Hough MD [facility] Internal [facility] 15 [address] [facility] [address] 10/14/2021 00:00:00 10/15/2021 12:47:46 [id number] Bryan Hough MD [facility] Internal [facility] [address] [place] [address] [address] 11/23/2021 00:00:00 11/23/2021 22:52:36 [id number] Bryan Hough MD [facility] [address] [place] [address] [address] 12/28/2021 00:00:00 01/24/2022 21:41:44 [id number] Bryan Hough MD [facility] Internal Med [facility] [address] [facility] [address] [address] 03/22/2022 00:00:00 04/12/2022 22:14:24 [id number] Bryan Hough MD [facility] Internal Med [facility] [address] [facility] [address] [address] 03/31/2022 00:00:00 03/31/2022 20:59:28 [id number] Juan Amado MD [facility] [place] [address] [facility] [address] [place] [address] 05/21/2022 00:00:00 05/21/2022 10:46:27 [id number] Juan Amado MD [facility] [place] [address] [facility] [address] [place] [address] 08/03/2022 00:00:00 08/03/2022 16:40:33 [id number] Bryan Hough MD [facility] Internal [facility] [address] [facility] [address] [address] 08/06/2022 00:00:00 08/07/2022 12:10:38 [id number] Bryan Hough MD [facility] Internal [facility] [address] [address] 10/11/2022 00:00:00 10/16/2022 17:42:43 [id number] Bryan Hough MD [facility] Internal [facility] [address] [facility], [address] [address] 10/25/2022 00:00:00 10/25/2022 23:57:09 [id number] Bryan Hough MD [facility] Internal [facility] [place] [address] [facility] [address] [facility] [place] [address] 02/08/2023 14:55:35 02/08/2023 17:12:09 Chronic diastolic heart failure 103393192 I50.32 Neuropathy due to diabetes mellitus 600727659 E11.40 Essential hypertension 02327570 I10 Hyperlipidemia 13426629 E78.5 [id number] Daniel Roland DPM [facility] [place] Wound [facility] [address] [place] [address] 05/25/2023 14:45:14 05/25/2023 18:39:59 Chronic ulcer of heel 0213017578 2746025 L97.412 continue daily wound careFollow -up x-raysWoun d is down to tendon with mild necrosisre commend Santyl applicatio n daily to right heel woundconti nue protective devices with offloading all times Diabetic p eripheral neuropathy 068110484 E11.42 Patient educated on neuropathy , diabetes, diabetic diet, and daily foot exams. Patient is to check feet daily for new wounds, blisters, redness to prevent infection and ulceration s to the feet. Patient will return to clinic in 3 months for diabetic foot workup. Peripheral arterial occlusive disease 026965891 I73.9 continue with vascular recommenda tioncontin ue with offloading devices to prevent worsening at all times [id number] Bryan Hough MD S[facility] Internal Med [place] [address] [facility], [facility] 15 [place] [address] 10/24/2023 14:34:54 10/24/2023 15:29:55 Hyperlipidemia 56146113 E78.5 Type 2 carlos betes mellitus without complication 001552928 E11.9 Open wound of right foot 0528541505 6542975 S91.301A Neuropathy 073436084 G62 .9 Peripheral arterial occlusive disease 808606260 I73.9 Essential hypertension 72760331 I10 [id number] Daniel Roland DPM [facility] [place] Wound [facility] [address] [place] [address] 11/02/2023 14:11:08 11/02/2023 18:10:46 Chronic ulcer of heel 8518445066 2328082 L97.412 Wounds a8nhugnbvo daily wound careMandat ory offloading at all timesHas refer foot Darco offloading shoe for transfersN ot weight-annette ring with use of wheelchair Wound is down to tendon with mild necrosis-w ound debrided todayFollo w-up 3 weeks Neuropathy due to diabetes mellitus 769219741 E11.40 Offloading to prevent worsening [id number] [facility] [address] [place] [address] 12/14/2023 14:01:47 12/14/2023 15:19:21 Chronic ulcer of heel 4222039782 2802453 L97.412 Wounds [id number] daily wound careMandat ory offloading at all timesHas refer foot Darco offloading shoe for transfersN ot weight-annette ring with use of wheelchair Follow-up 1 week Neuropathy due to diabetes mellitus [id number] E11.40 Offloading to prevent worsening Open wound of right lower leg [id number] S81.801A Daily dressings Chronic compressio n recommende d to prevent worsening Follow-up 1 week [id number] Daniel [facility] [address] [place] [address] 12/28/2023 14:15:08 12/28/2023 16:29:33 Chronic ulcer of heel [id number] [id number] L97.412 Wounds x1xray 1-24-neg for erosive changes, positive for calcaneal spurcontin ue daily wound careMandat ory offloading at all timesHas rearfoot Darco offloading shoe for transfersN ot weight-annette ring with use of wheelchair Follow-up 1 week Open wound of right lower leg [id number] S81.801A healed with callus Neuropathy due to diabetes mellitus 226702090 E11.40 Offloading to prevent worsening [id number] Daniel [facility] [address] [place] [address] 01/11/2024 14:20:10 01/11/2024 15:08:19 Chronic ulcer of heel [id number] 9264058 L97.412 Wounds x1xray 1-24-neg for erosive changes, positive for calcaneal spurcontin ue daily wound careMandat ory offloading at all timesHas rearfoot Darco offloading shoe for transfersN ot weight-annette ring with use of wheelchair Follow-up 1 week Open wound of right lower leg [id number] 6698459 S81.801A multiplebe tadine wet to dry dressingst ubigrip disp Peripheral vascular disease 217846617 I73.9 Ulcer of toe 098863708 L 97.509 right 4thbetadin e wet to dry dressing Lymphedema of lower extremity 338061413 I89.0 [id number] Daniel Roland DPM [facility] [address] [place] [address] 01/25/2024 14:59:58 01/30/2024 08:36:32 Chronic ulcer of heel 1667538829 8439523 L97.412 Wounds g0wyoyeahf todayxray 1-24-neg for erosive changes, positive for calcaneal spurcontin ue daily wound careMandat ory offloading at all timesHas rearfoot Darco offloading shoe for transfersN ot weight-annette ring with use of wheelchair Follow-up 1 week Open wound of right lower leg [id number] 9413782 S81.801A x1 with dry escharbeta dine wet to dry dressingst ubigrip disp Ulcer of toe 459708115 L 97.509 right 4thhealed Peripheral vascular disease 994393597 I73.9 vascular referral today Lymphedema of lower extremity 272790033 I89.0 [id number] Maxx Kaufman MD [facility] [address] [place] [address] 01/30/2024 11:15:55 02/01/2024 15:38:36 Peripheral arterial occlusive disease 194357741 I73.9 s/p balloon angioplast y Cough 77396846 R05.9 [id number] Daniel Roland DPM [facility] [address] [place] [address] 02/08/2024 12:24:38 02/08/2024 16:06:39 Chronic ulcer of heel 8636746554 0273411 L97.412 Wounds x1xray 1-24-neg for erosive changes, positive for calcaneal spurcontin ue daily wound careMandat ory offloading at all timesHas rearfoot Darco offloading shoe for transfersN ot weight-annette ring with use of wheelchair Follow-up 1 week Open wound of right lower leg [id number] 1165081 S81.801A x1 with dermal woundbetad ine wet to dry dressingst ubigrip disp Peripheral vascular disease 671668539 I73.9 vascular referral today Lymphedema of lower extremity 876621235 I89.0 Non-compli ant with compressio n to lower extremity [id number] Daniel Roland DPM [facility] [facility] [address] [place] [address] 02/22/2024 11:41:11 02/22/2024 17:22:52 Chronic ulcer of heel [id number] 7248196 L97.412 healedcont inue offloading to prevent recurrence Open wound of right lower leg [id number] 7748914 S81.801A healedTubi flat hammerer dispensed ontinue chronic compressio n to prevent recurrence Peripheral vascular disease 768146280 I73.9 vascular referral today Lymphedema of lower extremity 067591066 I89.0 Non-compli ant with compressio n to lower extremity [id number] MD [facility] [address] [place] [address] 04/02/2024 10:57:10 04/02/2024 14:41:30 Edema of lower extremity 622698565 R60.0 This gentleman was seen few weeks ago for LE edemaEcho with normal LV systolic function, LE with no DVT presentmed s includes Amlodipine , however a very low dose ( 2.5 mg daily ) [id number] Daniel Roland DPM [facility] [place] [address] [facility] [address] [place] [address] 05/29/2024 14:30:01 06/07/2024 10:26:23 Ulcer of lower extremity 98500866 L97.821 L97.811 Betadine wet-to-dry dressings to both wounds dailyAce compressio n appliededu cated on chronic use of compressio nfollow-up wound care next week Edema of l ower extremity 616656463 R60.0 recommend chronic compressio n therapy currently not utilizing Diabetes mellitus 228928 09 E11.9 continue diabetic control per PCP recommenda tions Dystrophia unguium 02294 009 L60.3 nails debrided without incident [id number] Daniel Roland DPM [facility] [place] [address] [place] [address] 06/06/2024 15:51:08 06/07/2024 10:28:20 Edema of lower extremity 715660711 R60.0 recommend chronic compressio n therapy currently not utilizing Ulcer of l ower extremity 89489005 L97.821 L97.811 both wounds healedmoni tor for new wounds daily if present seek medical attention immediatel y [id number] Daniel Roland DPM [facility] [place] [address] [facility] [address] [place] [address] 08/28/2024 15:26:14 08/29/2024 12:15:31 Edema of lower extremity 609281083 R60.0 recommend chronic compressio n therapy currently not utilizing Diabetes mellitus 131170 09 E11.9 continue diabetic control per PCP recommenda tions Diabetic p eripheral neuropathy 533104013 E11.42 Patient educated on neuropathy , diabetes, diabetic diet, and daily foot exams. Patient is to check feet daily for new wounds, blisters, redness to prevent infection and ulceration s to the feet. Patient will return to clinic in 3 months for diabetic foot workup. Dystrophia unguium 84682 009 L60.3 nails debrided without incident [id number] Daniel Roland DPM [facility] [address] [place] [address] 02/13/2025 15:47:07 02/13/2025 18:00:05 Peripheral arterial occlusive disease 259497516 I73.9 report to emergency room secondary to multiple wounds and gangrene Diabetes mellitus 707800 09 E11.52 continue diabetic control per PCP recommenda tionsrepor t to emergency room for further evaluation and management secondary to gangrene Ulcer of r ight foot due to type 2 diabetes mellitus [id number] 2156948 E11.621 Betadine wet-to-dry dressings daily-- applied today Ulcer of l eft foot due to type 2 diabetes mellitus 1536661415 0593522 E11.621 Betadine wet-to-dry dressings to open wounds daily-- applied todayrecom mend report to the emergency room for left digit gangrene Lymphedema of bilateral lower limbs [id number] 1829956 I89.0 noncomplia nt with compressio n Health Concerns Section Related Observation LastModified by Organization Detai ls LastModified Time None Recorded Concern Status LastModified by Organization Details LastModified Time None Recorded Advance Directives Directive N: Payers Insurance Date Sequence Insurance Name Policy Number Policy Mccrary Covered Member ID Mccrary Member ID Guarantor Name 08/28/2024 1 [employer] (MEDICARE REPLACEMENT/ ADVANTAGE - PPO) [id number] Gildardo Kat [id number] Gildardo [place] 02/12/2025 1 [facility] (MEDICARE REPLACEMENT/ ADVANTAGE - PPO) [id number] Gildardo [place] [id number] Gildardo Kat Notes Date Note Type Note Provider Name and Address Organization Details Recorded Time 04/02/2024 text/html Follow up for this gentleman for Le edema.Last visit following work up was done.Echo with a normal LV size and systolic functionLE duplex with no DVT found.Routine Labs with mild elevated TSH at 8, with normal Free TY4 levelPCP added Metolazone 2.5 mg MO--, with no significant changeBUN/Creat were mildly elevated Per , he has his feet on the floor, until she yells at him to keep them up. Maxx Kaufman MD [address], [place], [address], [employer] 04/02/2024 12:41:21 05/29/2024 text/html . Patient is [...] any other complaints. Daniel Roland DPM [address], [place], [address], [employer] 06/07/2024 09:55:49 06/06/2024 text/html . Patient is 69-year-old male diabetic who returns the office for wounds of the lower legs. Patient has completely healed the wounds. Patient still smells like urine. I did discuss at last visit that patient needs to utilize garments to prevent him from soiling himself and his legs. Patient denies any other complaints. Daniel Roland DPM [address], [place], [address], [employer] 06/07/2024 09:52:38 08/28/2024 text/html . Patient is [...] his nails be cut. Daniel Roland DPM [address], [place], [address], [employer] 08/28/2024 16:13:28 02/13/2025 text/html . Patient is [...] DPM [address], [place], [address], [employer] 02/13/2025 16:46:42
--- NOTE | 2025-05-20 12:51 | ED_ITS ---
HPI - Wound/Laceration General Chief Complaint: Wound/Laceration Stated Complaint: scrotal lac Time Seen by Provider: 05/20/25 10:23 History of Present Illness HPI narrative: Patient is a 70-year-old male who presents to the ER with a laceration to his scrotum. He reports the bleeding started last night. Per EMS patient cut his scrotum by placing his testicles into urinal. His bleeding was not noticed until this morning when staff went to change his depends. Patient den ies any urinary symptoms, recent fevers, or significant testicle swelling. 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 Patient reports he is is currently on antibiotics. He reports he received most of his recent care at [place]. Patient reports he is on 2 blood thinners. Related Data Home Medications ?Medication ?Instructions ?Recorded ?Confirmed ?Last Taken ?Type atorvastatin 20 mg tablet 20 mg PO HS 06/30/23 04/12/25 Unknown History albuterol 90 mcg/actuation aerosol 90 mcg inhalation .q4hr PRN 02/14/25 04/12/25 Unknown History inhaler shortness of breath apixaban 5 mg tablet (Eliquis) 5 mg PO BID 02/14/25 04/12/25 Unknown History bumetanide 1 mg tablet 1 mg PO BID 02/14/25 04/12/25 Unknown History insulin glargine 100 unit/mL (3 25 unit subcut .q12hr 02/14/25 04/12/25 Unknown History mL) subcutaneous pen (Basaglar KwikPen U-100 Insulin) insulin lispro 100 unit/mL 10 unit subcut TIDWM 02/14/25 04/12/25 Unknown History subcutaneous pen (Humalog KwikPen (U-100) Insulin) metolazone 2.5 mg tablet 2.5 mg PO QMWF 02/14/25 04/12/25 Unknown History acetaminophen 325 mg tablet 650 mg PO Q4H PRN Pain Rated 5 Or 04/12/25 04/12/25 Unknown History Less amlodipine 2.5 mg tablet 5 mg PO DAILY 04/12/25 04/12/25 Unknown History clopidogrel 75 mg tablet 75 mg PO DAILY 04/12/25 04/12/25 Unknown History ferrous sulfate 325 mg (65 mg 325 mg PO DAILY 04/12/25 04/12/25 Unknown History iron) tablet,delayed release magnesium citrate 100 mg capsule 200 mg PO HS 04/12/25 04/12/25 Unknown History miconazole nitrate 2 % topical applic topical BID 04/12/25 Unknown History cream trazodone 50 mg tablet 25 mg PO QHS 04/12/25 04/12/25 Unknown History Allergies Allergy/AdvReac Type Severity Reaction Status Date / Time No Known Allergies Allergy Verified 05/20/25 10:27 Review of Systems Review of Systems: All systems reviewed & are unremarkable except as noted in HPI and below FOR[facility]LY [facility] Past Medical History Medical History Atrial fibrillation/flutter CKD (chronic kidney disease) Stage 3 Pressure ulcer of right foot 2021 BPH (benign prostatic hyperplasia) HTN (hypertension) Congestive heart failure Hypothyroidism Diabetes mellitus type 2 in obese Surgical History Surgical History S/P foot surgery, right 2021 Family History Family History Unknown Diabetes mellitus Social History Social History Social History: Smoking status: Never smoker Alcohol intake: former Substance use: never Do You Feel Safe in your Home?: Yes Lack of Transportation: No Lack of Food: Never True Current Housing: I Have Housing Concerned About Future Housing: No Difficulty Paying Gas/Electric Bills: No Difficulty Paying for Meds: No Currently Unemployed: No Education: High School Diploma/GED Difficulty w/ Childcare or Family Care: No Living arrangements: with family Additional living arrangements comments: Spiritual care concerns: No Exam Narrative: GENERAL: Well appearing, obese, non-toxic, in no acute distress. HEAD: Normocephalic, atraumatic. NECK: Supple. No adenopathy, no masses. RESPIRATORY: Airway patent, respirations nonlabored. Clear to auscultation bilaterally, no rales, rhonchi, wheezing. CARDIOVASCULAR: Regular rate and rhythm without murmurs, rubs, or gallops. Peripheral pulses 2+ and equal bilaterally. ABDOMINAL: Soft, nontender, nondistended, no hepatosplenomegaly. Normoactive BS. MUSCULOSKELETAL: Moves all extremities. Strength/ROM intact (recent L metatarsal amputations) (R necrotic metatarsals on R foot-known condition) SKIN: Warm, dry, normal color. No rashes. 0.5cm laceration to pt's posterior testicle, continual bleeding consistent from site of laceration. No notable edema, no purulent drainage, minimal pain with manipulation of site. NEURO: A&O X3. Speech clear. Cranial nerves II-XII intact. PSYCHIATRIC: Appropriate mood and affect. Normal interaction. Course Vital Signs Vital signs: Vital Signs Temperature 98.1 F 05/20/25 10:25 Pulse Rate 62 05/20/25 10:25 Respiratory Rate 12 05/20/25 10:25 Blood Pressure 123/62 05/20/25 10:25 Pulse Oximetry 97 05/20/25 10:25 Oxygen Delivery Room Air 05/20/25 10:25 Temperature 97.8 F 05/20/25 15:36 Pulse Rate 64 05/20/25 15:36 Respiratory Rate 16 05/20/25 15:36 Blood Pressure 125/60 05/20/25 15:36 Pulse Oximetry 100 05/20/25 15:36 Oxygen Delivery Room Air 05/20/25 10:25 Procedures Laceration Laceration 1: Date: 05/20/25 Time: 12:51 Site: other (scrotum) Size (cm): 0.50 Description: linear Depth: simple, single layer Local Anesthetic: lidocaine 1% and with epi Amount of anesthesia used (mL): 5 Pre-repair: wound explored ====== Skin Level ====== Skin layer closed with: nylon Size (cm): 5-0 Number of sutures: 3 Technique: simple, interrupted ====== Subcutaneous Layer ====== ====== Muscle Layer ====== ====== Tendon Layer ====== MDM - Wound/Laceration MDM Narrative Medical decision making narrative: Patient is a 70-year-old male who presents to the ER with a laceration to his scrotum. He reports the bleeding started last night. Per EMS patient cut his scrotum by placing his testicles into urinal. His bleeding was not noticed until this morning when staff went to change his depends. Patient denies any urinary symptoms, recent fevers, or significant testicle swelling. 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 Patient reports he is is currently on antibiotics. He reports he received most of his recent care at [place]. Patient reports he is on 2 blood thinners. Labs Ordered: None necessary Imaging Ordered: None necessary Medications Ordered: Lidocaine 1% with epi Diagnosis: Laceration to posterior scrotum, suture repair Patient Education/Shared MDM: Results of examination shared with patient. After 3 sutures and Surgicel placement patient's scrotal bleeding has subsided. He will be discharged home with no new prescriptions. Patient strongly advised to follow-up with his PCP and other specialists at [place] as soon as possible. He is already on antibiotics to treat his diabetic foot ulcers. Patient should try to keep the site clean dry and intact. He should have his stitches removed in 7-[address] bacitracin to the site twice a day. Strict return precautions provided. Patient verbalized understanding and is in agreement with plan. Vital signs stable at time of discharge. All questions answered. Differential Diagnosis Differential diagnosis: Likely laceration, abrasion and avulsion of skin Discharge Plan Discharge Clinical Impression: Laceration of scrotum, Scrotal bleeding Patient Disposition: NH Mcfp/Asst Living Condition: Stable Instructions: Antibiotic Form, Care For Your Stitches (ED), Laceration (ED) Additional Instructions: Please try to keep the laceration on your scrotum clean, dry and intact. You may place bacitracin to the site twice a day. No oral antibiotics will be prescribed at this time. Your stitches should be removed in 7-10 days. Please return to the ER with any worsening symptoms. Follow-up with primary care provider and specialist as soon as possible. Take all medications as prescribed, including regularly scheduled medications. Patient Language: Latvian Prescriptions: New bacitracin 500 unit/gram packet 1 applic topical BID Qty: 144 0RF No Action Eliquis 5 mg tablet 5 mg PO BID metolazone 2.5 mg tablet 2.5 mg PO QMWF insulin glargine [Basaglar KwikPen U-100 Insulin] 100 unit/mL (3 mL) insulin pen 25 unit subcut .q12hr insulin lispro [Humalog KwikPen Insulin] 100 unit/mL insulin pen 10 unit subcut TIDWM albuterol 90 mcg/actuation aerosol 90 mcg inhalation .q4hr PRN (Reason: shortness of breath) Rx Instructions: 2 puffs bumetanide 1 mg Tablet 1 mg PO BID clopidogrel 75 mg tablet 75 mg PO DAILY miconazole nitrate 2 % cream TOPICAL BID ferrous sulfate 325 mg (65 mg iron) tablet,delayed release (DR/EC) 325 mg PO DAILY magnesium citrate 100 mg capsule 200 mg PO HS trazodone 50 mg tablet 25 mg PO QHS acetaminophen 325 mg Tablet 650 mg PO Q4H PRN (Reason: Pain Rated 5 Or Less) amlodipine 2.5 mg Tablet 5 mg PO DAILY atorvastatin 20 mg Tablet 20 mg PO HS cyclobenzaprine 10 mg Tablet 5 mg PO Q8H PRN (Reason: Muscle Spasm) Qty: 30 0RF ipratropium-albuterol 0.5 mg-3 mg(2.5 mg base)/3 mL Solution For Nebulization 3 ml inhalation Q6HRT Qty: 60 0RF amiodarone [Pacerone] 200 mg Tablet 200 mg PO Q12HR Qty: 60 0RF sennosides-docusate sodium [Senokot-S] 8.6-50 mg Tablet 1 tab PO HS Qty: 30 0RF tramadol 50 mg Tablet 50 mg PO Q8H PRN (Reason: Pain Rated 4-6) Qty: 20 0RF famotidine 20 mg Tablet 20 mg PO DAILY Qty: 30 0RF tamsulosin 0.4 mg Capsule 0.4 mg PO QAM Qty: 30 0RF levothyroxine [Synthroid] 50 mcg Tablet 50 mcg PO DAILY@0630 Qty: 30 0RF aspirin [Children's Aspirin] 81 mg Tablet,Chewable 81 mg PO DAILY@0800 Qty: 30 0RF calcium carbonate 500 mg calcium (1,250 mg) Tablet,Chewable 500 mg PO Q6H PRN (Reason: Indigestion) Qty: 30 0RF Dakin's Solution 0.25 % Solution 1 applic topical BID Qty: 10 0RF metoprolol tartrate 25 mg Tablet 25 mg PO Q12HR Qty: 60 0RF ramelteon 8 mg Tablet 8 mg PO HS Qty: 30 0RF cholecalciferol (vitamin D3) 1,250 mcg (50,000 unit) Capsule 50,000 unit PO WEEKLY Qty: 4 0RF Follow-up/Referrals: Gianluca,MD Bryan [Primary Care Provider] - Stand Alone Forms: [facility] Discharge Time of Disposition: 14:45
[2025-05-20] MEDS: CELLULOSE OXIDIZED 2 x 3 INCH 1 PKT XX (13:11)
[2025-05-20 15:36] VITALS: BP 125/60; PULSE 64; RESP 16; TEMP 36.6; O2SAT 100
== END 2025-05-20 15:37 ==
PROVIDERS: Emergency Provider Registered Nurse; PCP Internal Medicine
DX: S31.31XA Laceration without foreign body of scrotum and testes, initial encounter (principal); I48.91 Unspecified atrial fibrillation; I13.0 Hypertensive heart and chronic kidney disease with heart failure and stage 1 through stage 4 chronic kidney disease, or unspecified chronic kidney disease; E11.22 Type 2 diabetes mellitus with diabetic chronic kidney disease; N18.30 Chronic kidney disease, stage 3 unspecified; I50.9 Heart failure, unspecified; E03.9 Hypothyroidism, unspecified; N40.0 Benign prostatic hyperplasia without lower urinary tract symptoms; Z79.84 Long term (current) use of oral hypoglycemic drugs; W22.09XA Striking against other stationary object, initial encounter
CPT/HCPCS: 12001; 99283

== ENCOUNTER 2025-08-29 20:16 | Emergency (ER) | payer MEDICARE, SELFPAY ==
--- NOTE | ~2025-08-29 | CT_ITS ---
EXAMINATION: CT abdomen pelvis wo con DATE: 08/29/2025 22:22 INDICATION: Abdominal pain. TECHNIQUE: Computed tomography (CT) of the abdomen and pelvis was performed without intravenous contrast. Automated exposure control and iterative reconstruction technique were employed. The dose-length product was 1694.62 mGy-cm. COMPARISON: CT abdomen and pelvis 04/12/2025 FINDINGS: The visualized portions of the lung bases demonstrate mild atelectasis. There are small pleural effusions, right worse than left. Cardiomegaly is noted. There are coronary artery calcifications. There are pacer wires in right atrium and right ventricle. No pericardial effusion. The liver and spleen are normal. The gallbladder is normal in size. Hyperdense material in the gallbladder may be contrast or sludge or stones. The pancreas, adrenal glands, and kidneys are normal. There is no urolithiasis. Stool distends the rectum. There is diverticulosis of the colon without evidence of diverticulitis. The appendix is normal. There are no dilated loops of bowel. There are no pathologically enlarged lymph nodes. There is chronic diffuse bladder wall thickening, likely secondary to chronic obstruction from the moderately enlarged prostate. There is no free intraperitoneal fluid. There is severe lumbar spondylosis. There is moderate thoracic spondylosis. IMPRESSION: 1. No urolithiasis. 2. Stool distends the rectum. 3. Small pleural effusions, right worse than left. Reviewed, dictated and finalized at location E.
--- NOTE | ~2025-08-29 | XR_ITS ---
Examination: XR chest 1V portable Clinical History: weakness Comparison: 04/12/2025 Technique: Portable AP Findings: Left pacemaker. Cardiomegaly. Diffusely increased interstitial markings. Right pleural effusion Left pleural effusion versus cardial fat pad. No acute bony abnormality. IMPRESSION: 1. Interstitial pulmonary edema and/or pneumonitis. 2. Right pleural effusion. Left effusion not excluded. Reviewed, dictated and finalized at location R.
[2025-08-29 20:14] VITALS: BP 115/68; PULSE 60; RESP 14; TEMP 36.4; O2SAT 100
--- NOTE | 2025-08-29 20:26 | ECG_ITS ---
Test Date: 2025-08-29 20:28:53 Measurements Intervals [place] Rate: 60 P: 245 LA: 314 QRS: 118 QRSD: 175 T: -29 QT: 510 QTc: 510 Interpretive Statements ELECTRONIC ATRIAL PACEMAKER IVCD, FEATURES OF BOTH RIGHT BUNDLE BRANCH BLOCK AND LBBB BASELINE WANDER- I, III, V1-V4 ABNORMAL ECG Compared to ECG 04/11/2025 22:18:42 Ventricular-paced complex(es) or rhythm no longer present Electronically Signed On 08-30-2025 06:22:21 CDT by Evelio Watkins D.O.
[2025-08-29 20:34] LABS: Immature Granulocyte Percent A 0.6 % (0-0.5); Lymphocytes Absolute Auto 0.70 K/mm3 (0.9-3.2); Mean Corpuscular HGB Conc 27.7 g/dl (32-36); Mean Corpuscular Hemoglobin 23.9 pg (26-34); Mean Corpuscular Volume 86.4 fl (80-100); Nucleated Red Blood Cells Absolute Auto 0.610 K/mm3 (0.0-0.012); Nucleated Red Blood Cells Perc 7.3 % (0.0-0.2); Platelet Count Result 309 k/mm3 (150-375); Red Blood Count 2.13 M/mm3 (4.6-6.20); White Blood Count 8.4 K/mm3 (4.5-10.0)
[2025-08-29 20:45] LABS: Hematocrit 18.4 % (42.0-52.0); Hemoglobin 5.1 g/dL (14.0-18.0)
[2025-08-29 20:46] LABS: Hypochromasia 1+; INR 3.4; Prothrombin Time 33.5 Seconds (11.1-14.7)
[2025-08-29 20:47] LABS: Ovalocytes Occasional; Partial Thromboplastin Time 44.9 Seconds (22.3-36.8); Schistocytes None Seen
[2025-08-29 20:48] LABS: Add Urine Microscopic? NO; Appearance Urine Clear (Clear); Glucose Urine UA Negative (Negative); Leukocyte Esterase Ur Negative LEU/UL (Negative); Nitrate Urine Negative (Negative); Specific Grav Ur 1.017 (1.001-1.035)
[2025-08-29 20:51] LABS: Alanine Aminotransferase 709 U/L (6-50); Albumin Level 4.1 g/dL (3.5-5.1); Alkaline Phosphatase 148 U/L (38-126); Anion Gap 30 mmol/L (4-12); Bilirubin,Total 2.2 mg/dL (0.2-1.3); Calcium 8.0 mg/dL (8.4-10.2); Carbon Dioxide 10 mmol/L (22-30); Chloride 95 mmol/L (98-107); Glucose 130 mg/dL (65-110); Potassium 4.1 mmol/L (3.4-5.0); Sodium 135 mmol/L (137-145); Total Protein 7.5 g/dL (6.3-8.2)
[2025-08-29 21:02] LABS: Estimated CRCL calculation 13 ml/min; Estimated Glomerular Filt Rate 8
[2025-08-29 21:03] LABS: Aspartate Amino Transferase 906 U/L (17-59); Blood Urea Nitrogen 148 mg/dL (9-20)
--- OUTSIDE RECORDS SUMMARY | 2025-08-29 21:30 | XMS_ITS | Data Portability ---
[facility] Address [address] [place] [address] Care Team Providers Care Spud Driller Name Role Phone DULCE HOUGH Primary Care Provider Assessment Encounter Date Assessment Date Assessment LastModified by Organization Details LastModified Time 10/03/2024 10/03/2024 diabetes appears to be stable clinically. His hemoglobin A1c point of care is 6.7 which is a phenomenal drop from his previous number congratulated him on his dietary management. Obtain chest x-ray from the emergency room and the ER sheet. We will continue with all of the therapies right now. He will follow up with me in 2 months Not available 10/14/2024 15:52:45 01/04/2025 01/04/2025 decongestant he needs some physical therapy he needs blood work diagnosis have been discussed hypertension chronic diastolic heart failure hypothyroidism type 2 diabetes neuropathy pneumococcal vaccine flu shot see me in 3 months physical therapy blood work. [email or web address] Not available 01/05/2025 16:03:04 04/10/2025 04/10/2025 Refill medicines as needed blood work will be ascertained I will see him in a month clinically appears euvolemic [email or web address] Not available 04/13/2025 23:25:35 04/26/2025 04/26/2025 is adamant they told him to stop the Bumex and the metolazone discharge paperwork does not reflect that I will go ahead and have her use the metolazone and the Bumex every other day make the referral to renal he is not in any decompensated heart failure status today if he develops shortness of breath then we will have to get him on the diuretics daily she understands that the more he takes the diuretics the more it makes his kidney function abnormal. I will see him back in a month other medicines will remain the same Not available 04/26/2025 14:26:26 07/04/2025 07/04/2025 His chronic medical problems has been discussed we will continue current therapy home health is coming out I told the and the patient that I am not the 1 managing the foot wound and that home health needs to call that physician for orders. Not available 07/06/2025 12:19:43 Plan of Treatment Reminders Order Date Submit Date Provider Last Modified By Organization Details Last Modified Time Details Appointments ANY 15 2024 02:15P Tigist Hough MD Not available Not available Not available Lab HbA1c (hemoglob in A1c), blood 2024 025 [facility], [address], [place], [address], 04/11/2025 13:12:13 CBC w/ auto diff 2024 025 [facility], [address], [place], [address], 04/11/2025 13:12:14 lipid panel, serum 2024 025 [facility], [address], [place], [address], 04/11/2025 13:12:10 TSH, ultra-sen sitive, serum 2024 025 [facility], [address], [place], [address], 04/11/2025 13:12:14 T3, free, serum or plasma 2024 025 [facility], [address], [place], [address], 04/11/2025 13:12:15 unlisted lab - T4, free 2024 025 [facility], [address], [place], [address], 04/11/2025 13:12:11 CMP, serum or plasma 2024 025 [facility], [address], [place], [address], 04/11/2025 13:12:12 HbA1c (hemoglob in A1c), blood 2024 025 [facility], [address], [place], [address], 01/05/2025 08:24:23 CMP, serum or plasma 2024 025 [facility], [address], [address], [place], [address], 01/05/2025 08:24:22 CBC w/ auto diff 2024 025 [facility], [address], [address], [place], [address], 01/05/2025 08:24:25 lipid panel, serum 2024 025 [facility], [address], [address], [place], [address], 01/05/2025 08:24:20 TSH, ultra-sen sitive, serum 2024 025 [facility], [address], [address], [place], [address], 01/05/2025 08:24:24 T3, free, serum or plasma 2024 025 [facility], [address], [address], [place], [address], 01/05/2025 08:24:27 T4, free, serum 2024 025 [facility], [address] [facility], [address], [place], [address], 01/05/2025 08:24:28 HbA1c (hemoglob in A1c), blood 2023 024 [id number] In-Office Order, Internal Use Only DO Not Attach Compendium DO Not Attach Compendium, Do Not Delete/merge, [id number] 10/03/2024 15:05:51 Referral nephrolog ist referral - Pt was in [facility] and D/C on 04/16/25 this is for a hospital follow up. 2024 025 niko Ramirez MD, [address], [facility], [place], [address], 08/09/2025 14:31:59 physical therapist referral 2024 025 [facility], [address], [place], [address], 02/12/2025 12:34:58 Procedures None recorded. Surgeries None recorded. Imaging None recorded. Medication Orders amiodaron e 200 mg tablet 2024 025 [id number], [address] [place], [place], [id number], 04/10/2025 15:15:58 clopidogr el 75 mg tablet 2024 025 [email or web address] [id number], [address], [place], [id number], 04/10/2025 15:15:58 magnesium citrate 100 mg tablet 2024 025 [facility], [address], [place], [id number], 07/04/2025 11:52:16 Patient TargetsNo targets recorded. Patient Instructions Encounter Date Encounter Id Patient Instructions Last Modified By Organization Details Last Modified Time 01/04/2025 [id number] A healthy lifestyle: care instructions [email or web address] Not available 01/04/2025 12:38:46 07/04/2025 [id number] A healthy lifestyle: care instructions [email or web address] Not available 07/06/2025 12:20:01 Reason for Referral Physical Therapist Referral for Abnormal gait Referring Physician: Dulce Hough, Internal Medicine, Encounter Date: 01/04/2025 Respiratory Director Referral for Ch ronic kidney disease stage 4 Pt was in [facility] and D/C on 04/16/25 this is for a hospital follow up. Referring Physician: Dulce Hough, Internal Medicine, Encounter Date: 04/26/2025 Results Created Date Observation Date Name Description Value Unit Range Abnormal Flag Note LastModifiedBy Organization Detail LastModifiedTime 10/03/2010/03/2024 HbA1c (hemo globi n A1c), blood HbA1c 6.7 Not Available In-Office Order Internal Use Only DO Not Attach Compendium DO Not Attach Compendium, Do Not Delete/merge, [id number] 10/03/2024 14:43:11 01/04/2001/05/2025 LIPID PANEL cholesterol, total 121 mg/dL 100-19 9 Not Available [facility] ([facility]) [address] [place], [address], 01/05/2025 08:24:20 01/04/2001/05/2025 LIPID PANEL triglyceride s 241 mg/dL 0-149 above high normal Not Available [facility] ([facility]) [address] [facility], [place], [address], 01/05/2025 08:24:20 01/04/20 25 01/05/2025 LIPID PANEL HDL cholesterol 25 mg/dL >39 below low normal Not Available [facility] ([facility]) [address] [place], [address], 01/05/2025 08:24:20 01/04/20 25 01/05/2025 LIPID PANEL VLDL cholesterol nicholas 39 mg/dL 5-40 Not Available [facility] ([facility]) [address] [place], [address], 01/05/2025 08:24:20 01/04/20 25 01/05/2025 LIPID PANEL LDL chol calc ([facility]) 57 mg/dL 0-99 Not Available [facility] ([facility]) [address] [place], [address], 01/05/2025 08:24:20 01/04/20 25 01/05/2025 COMP. METAB OLIC PANEL (14) glucose 132 mg/dL 70-99 above high normal Not Available [facility] ([facility]) [address] [place], [address], 01/05/2025 08:24:21 01/04/20 25 01/05/2025 COMP. METAB OLIC PANEL (14) BUN 56 mg/dL 8-27 above high normal Not Available [facility] ([facility]) [address] [place], [address], 01/05/2025 08:24:21 01/04/20 25 01/05/2025 COMP. METAB OLIC PANEL (14) creatinine 2.23 mg/dL 0.76-1 .27 above high normal Not Available [facility] ([facility]) [address] [place], [address], 01/05/2025 08:24:21 01/04/20 25 01/05/2025 COMP. METAB OLIC PANEL (14) eGFR 31 mL/mi n/1.7 3 >59 below low normal Not Available [facility] ([facility]) [address] [place], [address], 01/05/2025 08:24:21 01/04/20 25 01/05/2025 COMP. METAB OLIC PANEL (14) BUN/creatini ne ratio 25 10-24 above high normal Not Available [facility] ([facility]) [address] [facility] [place], [address], 01/05/2025 08:24:21 01/04/20 25 01/05/2025 COMP. METAB OLIC PANEL (14) sodium 144 mmol/ L 134-14 4 Not Available [facility] ([facility]) [address] [facility] [place], [address], 01/05/2025 08:24:21 01/04/20 25 01/05/2025 COMP. METAB OLIC PANEL (14) potassium 4.8 mmol/ L 3.5-5. 2 Not Available [facility] ([facility]) [address] [facility] [place], [address], 01/05/2025 08:24:21 01/04/20 25 01/05/2025 COMP. METAB OLIC PANEL (14) chloride 107 mmol/ L 96-106 above high normal Not Available [facility] ([facility]) [address] [facility] [place], [address], 01/05/2025 08:24:21 01/04/20 25 01/05/2025 COMP. METAB OLIC PANEL (14) carbon dioxide, total 23 mmol/ L 20-29 Not Available [facility] ([facility]) [address] [facility] [place], [address], 01/05/2025 08:24:21 01/04/20 25 01/05/2025 COMP. METAB OLIC PANEL (14) calcium 8.4 mg/dL 8.6-10 .2 below low normal Not Available [facility] ([facility]) [address] [facility] [place], [address], 01/05/2025 08:24:21 01/04/20 25 01/05/2025 COMP. METAB OLIC PANEL (14) protein, total 6.7 g/dL 6.0-8. 5 Not Available [facility] ([facility]) [address] [place], [address], 01/05/2025 08:24:21 01/04/20 25 01/05/2025 COMP. METAB OLIC PANEL (14) albumin 3.6 g/dL 3.8-4. 8 below low normal Not Available [facility] ([facility]) [address] [place], [address], 01/05/2025 08:24:21 01/04/20 25 01/05/2025 COMP. METAB OLIC PANEL (14) globulin, total 3.1 g/dL 1.5-4. 5 Not Available [facility] ([facility]) [address] [place], [address], 01/05/2025 08:24:21 01/04/20 25 01/05/2025 COMP. METAB OLIC PANEL (14) bilirubin, total <0.2 mg/dL 0.0-1. 2 Not Available [facility] ([facility]) [address] [place], [address], 01/05/2025 08:24:21 01/04/20 25 01/05/2025 COMP. METAB OLIC PANEL (14) alkaline phosphatase 120 IU/L 44-121 Not Available [facility] ([facility]) [address] [place], [address], 01/05/2025 08:24:21 01/04/20 25 01/05/2025 COMP. METAB OLIC PANEL (14) AST (SGOT) 14 IU/L 0-40 Not Available [facility] ([facility] [address] [place], [address], 01/05/2025 08:24:21 01/04/20 25 01/05/2025 COMP. METAB OLIC PANEL (14) ALT (SGPT) 9 IU/L 0-44 Not Available [facility] ([facility]) [address] [facility], [place], [address], 01/05/2025 08:24:21 01/04/20 25 01/05/2025 HEMOG LOBIN A1C hemoglobin A1C 7.9 % 4.8-5. 6 above high normal Predi abete s: 5.7 - 6.4 Diabe carmel: >6.4 Glyce cami contr ol for adult s with diabe carmel: <7.0 Not Available [facility] ([facility]) [address] [place], [address], 01/05/2025 08:24:23 01/04/20 25 01/05/2025 TSH TSH 3.750 uIU/m L 0.450- 4.500 Not Available [facility] ([facility]) [address] [place], [address], 01/05/2025 08:24:24 01/04/20 25 01/05/2025 CBC WITH DIFFE RENTI AL/PL ATELE T WBC 6.4 x10e3 /uL 3.4-10 .8 Not Available [facility] ([facility]) [address] [place], [address], 01/05/2025 08:24:25 01/04/20 25 01/05/2025 CBC WITH DIFFE RENTI AL/PL ATELE T RBC 3.04 x10e6 /uL 4.14-5 .80 below low normal Not Available [facility] ([facility]) [address] [place], [address], 01/05/2025 08:24:25 01/04/20 25 01/05/2025 CBC WITH DIFFE RENTI AL/PL ATELE T hemoglobin 8.1 g/dL 13.0-1 7.7 below low normal Not Available [facility] ([facility]) [address] [place], [address], 01/05/2025 08:24:25 01/04/20 25 01/05/2025 CBC WITH DIFFE RENTI AL/PL ATELE T hematocrit 26.8 % 37.5-5 1.0 below low normal Not Available [facility] ([facility]) [address] [place], [address], 01/05/2025 08:24:25 01/04/20 25 01/05/2025 CBC WITH DIFFE RENTI AL/PL ATELE T MCV 88 fL 79-97 Not Available [facility] ([facility]) [address] [place], [address], 01/05/2025 08:24:25 01/04/20 25 01/05/2025 CBC WITH DIFFE RENTI AL/PL ATELE T MCH 26.6 pg 26.6-3 3.0 Not Available [facility] ([facility]) [address] [place], [address], 01/05/2025 08:24:25 01/04/20 25 01/05/2025 CBC WITH DIFFE RENTI AL/PL ATELE T MCHC 30.2 g/dL 31.5-3 5.7 below low normal Not Available [facility] ([facility]) [address] [place], [address], 01/05/2025 08:24:25 01/04/20 25 01/05/2025 CBC WITH DIFFE RENTI AL/PL ATELE T RDW 13.6 % 11.6-1 5.4 Not Available [facility] ([facility]) [address] [place], [address], 01/05/2025 08:24:25 01/04/20 25 01/05/2025 CBC WITH DIFFE RENTI AL/PL ATELE T platelets 313 x10e3 /uL 150-45 0 Not Available [facility] ([facility]) [address] [place], [address], 01/05/2025 08:24:25 01/04/20 25 01/05/2025 CBC WITH DIFFE RENTI AL/PL ATELE T neutrophils 67 % notest ab. Not Available [facility] ([facility]) [address] [facility], [place], [address], 01/05/2025 08:24:25 01/04/20 25 01/05/2025 CBC WITH DIFFE RENTI AL/PL ATELE T lymphs 20 % notest ab. Not Available [facility] ([facility]) [address] [facility], [place], [address], 01/05/2025 08:24:25 01/04/20 25 01/05/2025 CBC WITH DIFFE RENTI AL/PL ATELE T monocytes 6 % notest ab. Not Available [facility] ([facility]) [address] [facility], [place], [address], 01/05/2025 08:24:25 01/04/20 25 01/05/2025 CBC WITH DIFFE RENTI AL/PL ATELE T eos 5 % notest ab. Not Available [facility] ([facility]) [address] [place], [address], 01/05/2025 08:24:25 01/04/20 25 01/05/2025 CBC WITH DIFFE RENTI AL/PL ATELE T basos 1 % notest ab. Not Available [facility] ([facility]) [address] [place], [address], 01/05/2025 08:24:25 01/04/20 25 01/05/2025 CBC WITH DIFFE RENTI AL/PL ATELE T neutrophils (absolute) 4.3 x10e3 /uL 1.4-7. 0 Not Available [facility] ([facility]) [address] [facility], [place], [address], 01/05/2025 08:24:25 01/04/20 25 01/05/2025 CBC WITH DIFFE RENTI AL/PL ATELE T lymphs (absolute) 1.3 x10e3 /uL 0.7-3. 1 Not Available [facility] ([facility]) [address] [facility], [place], [address], 01/05/2025 08:24:25 01/04/20 25 01/05/2025 CBC WITH DIFFE RENTI AL/PL ATELE T monocytes(ab solute) 0.4 x10e3 /uL 0.1-0. 9 Not Available [facility] ([facility]) [address] [place], [address], 01/05/2025 08:24:25 01/04/20 25 01/05/2025 CBC WITH DIFFE RENTI AL/PL ATELE T eos (absolute) 0.3 x10e3 /uL 0.0-0. 4 Not Available [facility] ([facility]) [address] [facility], [place], [address], 01/05/2025 08:24:25 01/04/20 25 01/05/2025 CBC WITH DIFFE RENTI AL/PL ATELE T baso (absolute) 0.1 x10e3 /uL 0.0-0. 2 Not Available [facility] ([facility]) [address] [place], [address], 01/05/2025 08:24:25 01/04/20 25 01/05/2025 CBC WITH DIFFE RENTI AL/PL ATELE T immature granulocytes 1 % notest ab. Not Available [facility] ([facility]) [address] [place], [address], 01/05/2025 08:24:25 01/04/20 25 01/05/2025 CBC WITH DIFFE RENTI AL/PL ATELE T immature grans (abs) 0.1 x10e3 /uL 0.0-0. 1 Not Available [facility] ([facility]) [address] [facility], [place], [address], 01/05/2025 08:24:25 01/04/20 25 01/05/2025 TRIIO DOTHY ARCELIA E (T3), FREE triiodothyro nine (T3), free 2.0 pg/mL 2.0-4. 4 Not Available [facility] ([facility]) [address] [place], [address], 01/05/2025 08:24:27 01/04/20 25 01/05/2025 T4,FR EE(DI RECT) T4,free(dire ct) 1.14 NG/dL 0.82-1 .77 Not Available [facility] ([facility]) [address] [place], [address], 01/05/2025 08:24:28 04/10/20 25 04/11/2025 LIPID PANEL cholesterol, total 122 mg/dL 100-19 9 Not Available [facility] ([facility]) [address] [place], [address], 04/11/2025 13:12:10 04/10/20 25 04/11/2025 LIPID PANEL triglyceride s 184 mg/dL 0-149 above high normal Not Available [facility] ([facility]) [address] [place], [address], 04/11/2025 13:12:10 04/10/20 25 04/11/2025 LIPID PANEL HDL cholesterol 29 mg/dL >39 below low normal Not Available [facility] ([facility]) [address] [place], [address], 04/11/2025 13:12:10 04/10/20 25 04/11/2025 LIPID PANEL VLDL cholesterol nicholas 31 mg/dL 5-40 Not Available [facility] ([facility]) [address] [place], [address], 04/11/2025 13:12:10 04/10/20 25 04/11/2025 LIPID PANEL LDL chol calc ([facility]) 62 mg/dL 0-99 Not Available [facility] ([facility]) [address] [place], [address], 04/11/2025 13:12:10 04/10/20 25 04/11/2025 T4, FREE T4,free(dire ct) 1.83 NG/dL 0.82-1 .77 above high normal Not Available [facility] ([facility]) [address] [place], [address], 04/11/2025 13:12:11 04/10/20 25 04/11/2025 COMP. METAB OLIC PANEL (14) glucose 103 mg/dL 70-99 above high normal Not Available [facility] ([facility]) [address] [place], [address], 04/11/2025 13:12:12 04/10/20 25 04/11/2025 COMP. METAB OLIC PANEL (14) BUN 104 mg/dL 8-27 alert high Not Available [facility] ([facility]) [address] [place], [address], 04/11/2025 13:12:12 04/10/20 25 04/11/2025 COMP. METAB OLIC PANEL (14) creatinine 3.99 mg/dL 0.76-1 .27 above high normal Not Available [facility] ([facility]) [address] [place], [address], 04/11/2025 13:12:12 04/10/20 25 04/11/2025 COMP. METAB OLIC PANEL (14) eGFR 15 mL/mi n/1.7 3 >59 below low normal Not Available [facility] ([facility]) [address] [place], [address], 04/11/2025 13:12:12 04/10/20 25 04/11/2025 COMP. METAB OLIC PANEL (14) BUN/creatini ne ratio 26 10-24 above high normal Not Available [facility] ([facility]) [address] [place], [address], 04/11/2025 13:12:12 04/10/20 25 04/11/2025 COMP. METAB OLIC PANEL (14) sodium 141 mmol/ L 134-14 4 Not Available [facility] ([facility]) [address] [facility] [place], [address], 04/11/2025 13:12:12 04/10/20 25 04/11/2025 COMP. METAB OLIC PANEL (14) potassium 3.1 mmol/ L 3.5-5. 2 below low normal Not Available [facility] ([facility]) [address] [facility] [place], [address], 04/11/2025 13:12:12 04/10/20 25 04/11/2025 COMP. METAB OLIC PANEL (14) chloride 95 mmol/ L 96-106 below low normal Not Available [facility] ([facility]) [address] [facility] [place], [address], 04/11/2025 13:12:12 04/10/20 25 04/11/2025 COMP. METAB OLIC PANEL (14) carbon dioxide, total 23 mmol/ L 20-29 Not Available [facility] ([facility]) [address] [facility] [place], [address], 04/11/2025 13:12:12 04/10/20 25 04/11/2025 COMP. METAB OLIC PANEL (14) calcium 8.9 mg/dL 8.6-10 .2 Not Available [facility] ([facility]) [address] [facility] [place], [address], 04/11/2025 13:12:12 04/10/20 25 04/11/2025 COMP. METAB OLIC PANEL (14) protein, total 7.4 g/dL 6.0-8. 5 Not Available [facility] ([facility]) [address] [facility] [place], [address], 04/11/2025 13:12:12 04/10/20 25 04/11/2025 COMP. METAB OLIC PANEL (14) albumin 3.8 g/dL 3.8-4. 8 Not Available [facility] ([facility]) [address] [place], [address], 04/11/2025 13:12:12 04/10/20 25 04/11/2025 COMP. METAB OLIC PANEL (14) globulin, total 3.6 g/dL 1.5-4. 5 Not Available [facility] ([facility]) [address] [place], [address], 04/11/2025 13:12:12 04/10/20 25 04/11/2025 COMP. METAB OLIC PANEL (14) bilirubin, total 0.4 mg/dL 0.0-1. 2 Not Available [facility] ([facility]) [address] [place], [address], 04/11/2025 13:12:12 04/10/20 25 04/11/2025 COMP. METAB OLIC PANEL (14) alkaline phosphatase 105 IU/L 44-121 Not Available [facility] ([facility]) [address] [place], [address], 04/11/2025 13:12:12 04/10/20 25 04/11/2025 COMP. METAB OLIC PANEL (14) AST (SGOT) 12 IU/L 0-40 Not Available [facility] ([facility]) [address] [place], [address], 04/11/2025 13:12:12 04/10/20 25 04/11/2025 COMP. METAB OLIC PANEL (14) ALT (SGPT) 9 IU/L 0-44 Not Available [facility] ([facility]) [address] [place], [address], 04/11/2025 13:12:12 04/10/20 25 04/11/2025 HEMOG LOBIN A1C hemoglobin A1C 6.5 % 4.8-5. 6 above high normal Predi abete s: 5.7 - 6.4 Diabe carmel: >6.4 Glyce cami contr ol for adult s with diabe carmel: <7.0 Not Available [facility] ([facility]) [address] [place], [address], 04/11/2025 13:12:13 04/10/20 25 04/11/2025 TSH TSH 3.260 uIU/m L 0.450- 4.500 Not Available [facility] ([facility]) [address] [place], [address], 04/11/2025 13:12:13 04/10/20 25 04/11/2025 CBC WITH DIFFE RENTI AL/PL ATELE T WBC 7.1 x10e3 /uL 3.4-10 .8 Not Available [facility] ([facility]) [address] [place], [address], 04/11/2025 13:12:14 04/10/20 25 04/11/2025 CBC WITH DIFFE RENTI AL/PL ATELE T RBC 3.51 x10e6 /uL 4.14-5 .80 below low normal Not Available [facility] ([facility]) [address] [place], [address], 04/11/2025 13:12:14 04/10/20 25 04/11/2025 CBC WITH DIFFE RENTI AL/PL ATELE T hemoglobin 9.3 g/dL 13.0-1 7.7 below low normal Not Available [facility] ([facility]) [address] [place], [address], 04/11/2025 13:12:14 04/10/20 25 04/11/2025 CBC WITH DIFFE RENTI AL/PL ATELE T hematocrit 31.5 % 37.5-5 1.0 below low normal Not Available [facility] ([facility]) [address] [place], [address], 04/11/2025 13:12:14 04/10/20 25 04/11/2025 CBC WITH DIFFE RENTI AL/PL ATELE T MCV 90 fL 79-97 Not Available [facility] ([facility]) [address] [facility], [place], [address], 04/11/2025 13:12:14 04/10/20 25 04/11/2025 CBC WITH DIFFE RENTI AL/PL ATELE T MCH 26.5 pg 26.6-3 3.0 below low normal Not Available [facility] ([facility]) [address] [facility], [place], [address], 04/11/2025 13:12:14 04/10/20 25 04/11/2025 CBC WITH DIFFE RENTI AL/PL ATELE T MCHC 29.5 g/dL 31.5-3 5.7 below low normal Not Available [facility] ([facility]) [address] [facility], [place], [address], 04/11/2025 13:12:14 04/10/20 25 04/11/2025 CBC WITH DIFFE RENTI AL/PL ATELE T RDW 17.3 % 11.6-1 5.4 above high normal Not Available [facility] ([facility]) [address] [facility], [place], [address], 04/11/2025 13:12:14 04/10/20 25 04/11/2025 CBC WITH DIFFE RENTI AL/PL ATELE T platelets 300 x10e3 /uL 150-45 0 Not Available [facility] ([facility]) [address] [place], [address], 04/11/2025 13:12:14 04/10/20 25 04/11/2025 CBC WITH DIFFE RENTI AL/PL ATELE T neutrophils 63 % notest ab. Not Available [facility] ([facility]) [address] [place], [address], 04/11/2025 13:12:14 04/10/20 25 04/11/2025 CBC WITH DIFFE RENTI AL/PL ATELE T lymphs 24 % notest ab. Not Available [facility] ([facility]) [address] [facility], [place], [address], 04/11/2025 13:12:14 04/10/20 25 04/11/2025 CBC WITH DIFFE RENTI AL/PL ATELE T monocytes 7 % notest ab. Not Available [facility] ([facility]) [address] [facility], [place], [address], 04/11/2025 13:12:14 04/10/20 25 04/11/2025 CBC WITH DIFFE RENTI AL/PL ATELE T eos 4 % notest ab. Not Available [facility] ([facility]) [address] [facility], [place], [address], 04/11/2025 13:12:14 04/10/20 25 04/11/2025 CBC WITH DIFFE RENTI AL/PL ATELE T basos 1 % notest ab. Not Available [facility] ([facility]) [address] [facility], [place], [address], 04/11/2025 13:12:14 04/10/20 25 04/11/2025 CBC WITH DIFFE RENTI AL/PL ATELE T neutrophils (absolute) 4.5 x10e3 /uL 1.4-7. 0 Not Available [facility] ([facility]) [address] [facility], [place], [address], 04/11/2025 13:12:14 04/10/20 25 04/11/2025 CBC WITH DIFFE RENTI AL/PL ATELE T lymphs (absolute) 1.7 x10e3 /uL 0.7-3. 1 Not Available [facility] ([facility]) [address] [facility], [place], [address], 04/11/2025 13:12:14 04/10/20 25 04/11/2025 CBC WITH DIFFE RENTI AL/PL ATELE T monocytes(ab solute) 0.5 x10e3 /uL 0.1-0. 9 Not Available [facility] ([facility]) [address] [place], [address], 04/11/2025 13:12:14 04/10/20 25 04/11/2025 CBC WITH DIFFE RENTI AL/PL ATELE T eos (absolute) 0.3 x10e3 /uL 0.0-0. 4 Not Available [facility] ([facility]) [address] [place], [address], 04/11/2025 13:12:14 04/10/20 25 04/11/2025 CBC WITH DIFFE RENTI AL/PL ATELE T baso (absolute) 0.1 x10e3 /uL 0.0-0. 2 Not Available [facility] ([facility]) [address] [place], [address], 04/11/2025 13:12:14 04/10/20 25 04/11/2025 CBC WITH DIFFE RENTI AL/PL ATELE T immature granulocytes 1 % notest ab. Not Available [facility] ([facility]) [address] [place], [address], 04/11/2025 13:12:14 04/10/20 25 04/11/2025 CBC WITH DIFFE RENTI AL/PL ATELE T immature grans (abs) 0.0 x10e3 /uL 0.0-0. 1 Not Available [facility] ([facility]) [address] [place], [address], 04/11/2025 13:12:14 04/10/20 25 04/11/2025 TRIIO DOTHY ARCELIA E (T3), FREE triiodothyro nine (T3), free 1.5 pg/mL 2.0-4. 4 below low normal Not Available [facility] ([facility]) [address] [facility] [place], [address], 04/11/2025 13:12:15 10/08/20 24 10/08/2024 XR, chest , 2 view No observ ation record ed. [email or web address] [facility] [address], [place], [address], 10/08/2024 21:01:43 10/10/20 24 10/10/2024 XR, chest , 2 view No observ ation record ed. [address], [place], [address], 10/10/2024 20:32:46 02/15/20 25 02/14/2025 XR, foot, 3 or more view No observ ation record ed. [address], [place], [address], 02/15/2025 09:13:06 02/15/20 25 02/14/2025 XR, foot, 3 or more view No observ ation record ed. [address], [place], [address], 02/15/2025 09:13:31 04/12/20 25 04/11/2025 CT, abdom en + pelvi s, w/o contr ast No observ ation record ed. [address], [place], [address], 04/12/2025 09:04:59 04/12/20 25 04/12/2025 US, renal No observ ation record ed. [address], [place], [address], 04/16/2025 17:12:59 04/12/20 25 04/12/2025 XR, chest , 2 view No observ ation record ed. [address], [place], [address], 04/15/2025 22:42:50 Result Notes None recorded. Problems Name Problem SNOMED Code Status Onset Date Resolution Date Notes Provider Name and Address Organization Details Recorded Time Hypothyroidism 21152815 Active 2023 Dulce Hough MD Attn: Zuleyka elsa,[address] [facility], [place], [address], [place] - [facility] 4 15:09:04 Congestive heart failure 19073370 Active 2023 Mikki Arellano [place] null, [place] [facility] 4 15:43:21 Peripheral vascular disease 019225715 Active 2023 Mikki Arellano [place], [place] [facility] 4 15:43:22 Chronic kidney disease stage 3 549808516 Active 2023 Dulce Hough MD Attn: Zuleyka hunter,[address] [facility], [place], [address], [place] - [facility] 4 13:31:06 Diabetes mellitus 27027560 Active 2023 Dulce Hough MD Attn: Zuleyka hunter,[address] [facility], [place], [address], [place] [facility] 4 08:12:59 Atrial fibrillation 24064354 Active 2023 Dulce Hough MD Attn: Zuleyka hunter,[address] [facility], [place], [address], [place] [facility] 4 15:52:15 Essential hypertension 83244509 Active 2024 Mikki Arellano [place] null, [place] [facility] 5 12:28:01 Chronic diastolic heart failure 001859292 Active 2024 Dulce Hough MD Attn: Zuleyka hunter,[address] [facility], [place], [address], [place] [facility] 5 16:01:07 Hyperlipidemia 08838075 Active 2024 Heidi Toro LPN null, [place] - [facility] 5 15:31:25 Problem Notes None recorded. Procedures Surgical History Date Name Laterality Status Provider Name and Address Organization Details Recorded Time amputation of toe completed Yo Nichols MA ID - [facility] 07/04/2025 11:54:35 Knee Surgery completed NELIDA Hummel ID - [facility] 02/06/2024 16:28:35 Imaging Results None recorded. Procedure Notes None recorded. Medical Equipment None Reported. Allergies No known drug allergies Medications Name Sig Start Date Stop Date Status Note LastModified by Organization Details LastModified Time metolazone 2.5 mg tablet TAKE 1 TABLET BY MOUTH EVERY MORNING 30 MINUTES BEFORE BUMETANI DE ON active Not Available Not Available No t Available doxycyclin e hyclate 100 mg capsule Take 1 capsule twice a day by oral route for 7 days. 04/03 completed Not Available Not Available Not Available atorvastat in 20 mg tablet TAKE 1 TABLET BY MOUTH EVERY DAY 2024 active Not Available Not Available Not Avai lable atorvastat in 10 mg tablet TAKE 1 TABLET BY MOUTH EVERY DAY 04/03 completed Not Available Not Available Not Available amiodarone 200 mg tablet TAKE 1 TABLET BY MOUTH TWICE DAILY active Not Available Not Available No t Available amlodipine 2.5 mg tablet TAKE 1 TABLET [...] 1 tablet every day by oral route. 07/04 completed Not Available Not Available Not Available bumetanide 1 mg tablet TAKE 1 TABLET BY MOUTH TWICE DAILY 2024 active Not Available Not Available Not Avai lable albuterol sulfate HFA 90 mcg/actuat ion aerosol inhaler INHALE 2 PUFFS BY MOUTH EVERY 4 HOURS 2024 active Not Available Not Available Not Avai lable insulin lispro (U-100) 100 unit/mL subcutaneo us pen INJECT 10 UNITS SUBCUTAN EOUSLY THREE TIMES DAILY WITH MEALS active Not Available Not Available No t Available metoprolol tartrate 25 mg tablet TAKE 1 TABLET BY MOUTH TWICE DAILY 2024 active Not Available Not Available Not Avai lable ramelteon 8 mg tablet Take 1 tablet every day by oral route at bedtime. 07/04 completed Not Available Not Available Not Available [...] every day by oral route at bedtime. 07/04 completed Not Available Not Available Not Available Eliquis 5 mg tablet 1 po bid active Not Available Not Available N ot Available Dexcom G7 Sensor device CHANGE EVERY 10 DAYS 2024 active Not Available Not Available Not Avai lable Airsupra 90 mcg-80 mcg/actuat ion HFA aerosol inhaler INHALE 2 PUFFS BY MOUTH NEEDED. MAXIMUM DAILY DOSE IS 12 PUFFS active Not Available Not Available No t Available Vitals Date Recorded Body height Heart rate Oxygen saturation Oxygen saturation in Arterial blood by Pulse oximetry Systolic And Diastolic Provider Name and Address Organization Details Last Updated DateTime 02/14/202 5 182.88 cm 70 /min 99 % 99 % 112/72 mm[Hg] Bekah Morris [facility] 5 12:11:40 Date Recorded Body height Heart rate Oxygen saturation Oxygen saturation in Arterial blood by Pulse oximetry Systolic And Diastolic Provider Name and Address Organization Details Last Updated DateTime 5 182.88 cm 67 /min 99 % 99 % 114/70 mm[Hg] Mari Nicolas [facility] 5 13:59:18 Date Recorded Body height Heart rate Oxygen saturation Oxygen saturation in Arterial blood by Pulse oximetry Systolic And Diastolic Provider Name and Address Organization Details Last Updated DateTime 5 182.88 cm 69 /min 98 % 98 % 118/74 mm[Hg] Bekah Morris [facility] 5 11:23:09 Date Recorded Body height Body mass index (BMI) Body weight Oxygen saturation Oxygen saturation in Arterial blood by Pulse oximetry Heart rate Systolic And Diastolic Provider Name and Address Organization Details Last Updated DateTime 5 182.88 cm 35.5 kg/m2 310851. 2 g 98 % 98 % 72 /min 122/82 mm[Hg] Yo Nichols [facility] 5 12:02:38 Date Recorded Body height Heart rate Oxygen saturation Oxygen saturation in Arterial blood by Pulse oximetry Systolic And Diastolic Provider Name and Address Organization Details Last Updated DateTime 4 182.88 cm 70 /min 99 % 99 % 110/60 mm[Hg] Janet Rankin MA [facility] 4 14:22:23 Social History Question Answer Notes LastModified by Organizat ion Details LastModified Time Tobacco Smoking Status Never Smoker NELIDA Hummel, [facility] 02/06/2024 16:28:25 Are You Blind Or Do You Have Difficulty Seeing? Yes Information not available 07/03/2024 What Is Your Level Of Caffeine Consumption? None Hot Rosanna Information not available 07/03/2024 In The 14 Days Before Symptom Onset, Have You Had Close Contact With A Laboratory-confir [facility] COVID-19 While That Case Was Ill? No [...] Date Of Your Most Recent Tobacco Screening? 04/26/2025 Non Smoker Information not available 04/26/2025 What Is Your Relationship Status? Information not available 07/03/2024 Do You Use Your Seat Belt Or Car Seat Routinely? Yes Information not available 07/03/2024 Do You Have Smoke And Carbon Monoxide Detectors In Your Home? Yes Information not available 07/03/2024 Has Tobacco Cessation Counseling Been Provided? No Information not available 07/03/2024 Sex: Male Functional Status Question Answer Note LastModified by [employer] ion Details LastModified Time Do you use any illicit or recreational drugs? No Information not available 07/03/2024 Do you or have you ever used any other forms of tobacco or nicotine? No Information not available 07/03/2024 What is your level of alcohol consumption? None Information not available 07/03/2024 Are you able to care for yourself independently? Yes Information not available 07/03/2024 What is your exercise level? None Information not available 07/03/2024 Mental Status Question Answer Note LastModified by Organization D etails LastModified Time Do you feel stressed (tense, restless, nervous, or anxious, or unable to sleep at night)? [id number] Information not available 07/03/2024 Family History Relationship [...] high-dose, quadrivalent, PF 3 completed Lou[place], [place] [facility] 05/31/2024 13:54:32 Td (adult), 2 Lf tetanus toxoid, preservative free, adsorbed 2 completed Lou[place] [facility] 05/31/2024 13:54:32 Influenza, high-dose, trivalent, PF 4 completed Dulce Hough MD Attn: Accounting,[address] [place], [address], [facility] - [facility] 10/14/2024 15:48:54 Pneumococcal conjugate PCV20, polysaccharide OIA566 conjugate, adjuvant, PF 5 completed Dulce Hough MD Attn: Accounting,[address] [place], [address], [facility] - [facility] 01/05/2025 15:59:40 Influenza, high-dose, trivalent, PF 5 completed Dulce Hough MD Attn: Accounting,[address] [place], [address], [facility] - [facility] 01/05/2025 15:59:40 Past Encounters Encounter ID Performer Location Encounter Start Date Encounter Closed Date Diagnosis/Indication Diagnosis SNOMED-CT Code Diagnosis ICD10 Code Diagnosis IMO Codes Diagnosis Note [id number] Dulce Hough MD [facility] (Adult Med) [address] [place] [address] 02/06/2024 15:12:48 02/06/2024 16:38:30 Type 2 diabetes mellitus 57699051 E11.9 Peripheral arterial occlusive disease 154943612 I73.9 Neuropathy 958704480 G62 .9 Obesity 637154526 E66.9 Hyperlipidemia 69796161 E78.5 Chronic di astolic heart failure 426019917 I50.32 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 Hypothyroidism 79679305 E03.9 [id number] MD [facility] (Adult Med) [address] [place] [phone] 04/03/2024 14:28:15 04/03/2024 15:51:52 Congestive heart failure 83646263 I50.9 Peripheral vascular disease 287919915 I73.9 Hypothyroidism 25350729 E03.9 Type 2 carlos betes mellitus 63022834 E11.9 Chronic di astolic heart failure 763290076 I50.32 Chronic ki dney disease stage 3 138156489 N18.30 [id number] MD [facility] (Adult Med) [address] [place] [phone] 07/03/2024 15:03:59 07/03/2024 16:25:48 Type 2 diabetes mellitus without complication 992539002 E11.9 Essential hypertension 83052866 I10 Hyperlipidemia 95396739 E78.5 Hypothyroidism 81124733 E03.9 Diabetes mellitus 874421 09 E13.42 [id number] Dulce Hough MD [facility] (Adult Med) [address] [place] [phone] 10/03/2024 14:10:53 10/03/2024 14:43:45 Administration of influenza vaccine 07024437 Z23 Diabetes mellitus 946213 09 E13.42 Congestive heart failure 65433962 I50.9 Hypothyroidism 73847066 E03.9 Atrial fibrillation 4943 6004 I48.91 [id number] MD [facility] (Adult Med) [address] [place] [address] 01/04/2025 11:58:51 01/04/2025 12:50:28 Diabetes mellitus 59315666 E13.42 Hypothyroidism 16324960 E03.9 Obesity 169184324 E66.9 Essential hypertension 78406759 I10 Abnormal gait 71318009 R 26.9 Administra tion of pneumococcal vaccine 01666586 Z23 Administra tion of influenza vaccine 55293517 Z23 Atrial fibrillation 4943 6004 I48.91 Chronic di astolic heart failure 003824553 I50.32 [id number] MD [facility] (Adult Med) [address] [place] [address] 04/10/2025 13:44:35 04/10/2025 14:46:46 Essential hypertension 15505014 I10 Hypothyroidism 47685981 E03.9 Diabetes mellitus 266301 09 E13.42 Repeated prescription 18 2482378 Z76.0 [id number] Ordered per written permission from Dr. Hough Chronic di astolic heart failure 996072137 I50.32 Atrial fibrillation 4943 6004 I48.91 Hyperlipidemia 22375505 E78.5 01494413 Chronic ki dney disease stage 3 246098291 N18.30 [id number] Dulce Hough MD [facility] (Adult Med) [address] [place] [id number] 04/26/2025 11:07:50 04/26/2025 12:01:54 Chronic kidney disease stage 4 872193621 N18.4 76803808 Essential hypertension 45491331 I10 Chronic di astolic heart failure 159102349 I50.32 Peripheral vascular disease 179032716 I73.9 Hyperlipidemia 69026916 E78.5 32606744 [id number] Dulce Hough MD [address] [place] [address] 07/04/2025 11:27:18 07/04/2025 12:55:22 Obese class II 8328036948 40787 E66.812 E66.3 8500848394 Essential hypertension 86325392 I10 Chronic di astolic heart failure 159962459 I50.32 Atrial fibrillation 4943 6004 I48.91 Peripheral vascular disease 295617957 I73.9 Hyperlipidemia 29098831 E78.5 60376073 Diabetes mellitus 278270 09 E13.42 Chronic ki dney disease stage 3 451482914 N18.30 Hypothyroidism 15163989 E03.9 Health Concerns Section Related Observation LastModified by Organization Detai ls LastModified Time None Recorded Concern Status LastModified by Organization Details LastModified Time None Recorded Advance Directives Directive None Recorded Payers Insurance Date Sequence Insurance Name Policy Number Policy Mccrary Covered Member ID Mccrary Member ID Guarantor Name 07/08/2025 1 [facility] (MEDICARE REPLACEMENT/A DVANTAGE - HMO) [id number] Gildardo Kat [id number] Gildardo Kat Notes Date Note Type Note Provider Name and Address Organization Details Recorded Time 10/03/2024 text/html diabetes not any polyphagia or [...] fever. Dulce Hough MD Attn: Accounting, [address] [facility], [place], [address], [facility] - [facility] 10/14/2024 15:53:02 01/04/2025 text/html here [...] dizziness Dulce Hough MD Attn: Accounting, [address] [facility], [place], [address], [place] [facility] 01/05/2025 16:03:26 04/10/2025 text/html Necrotic toes and suffered from [facility] where amputations of the toes I believe took place went to rehab facility now home apparently he has been placed on amiodarone and some Bumex then they was given clopidogrel of which they needs some refills on Dulce Hough MD Attn: Accounting, [address] [facility], [place], [address], [place] [facility] 04/13/2025 23:26:43 04/26/2025 text/html Hospitalized for abnormal blood work BUN was really high they held his Bumex and metolazone he has not had any shortness of breath or chest pain he is not having any PND or orthopnea no polyphagia or polydipsia Dulce Hough MD Attn: Accounting,[address] [facility], [place], [address], [facility] 04/26/2025 14:26:55 07/04/2025 text/html Unfortunately had to have some toes amputated he went to rehab facility for awhile and now he is back home he has not had any chest pain shortness of breath or palpitations he is not ambulatory at this time Dulce Hough MD Attn: Accounting,[address] [place], [address], [facility] 07/06/2025 12:20:05
--- OUTSIDE RECORDS SUMMARY | 2025-08-29 21:30 | XMS_ITS | Clinical Summary ---
Author Organization [facility] Building B Address [address] [place] [address] Care Team Providers Care Pin Ticket Machine Operator Name Role Phone Bryan Hough MD Primary Care Provider [phone] Delilah Adams MD PhD Unavailable [phone] Noel Bañuelos MD Unavailable Allergies No known active allergies Medications levothyroxine (SYNTHROID) 50 mcg tabletIndication s:hypothyroidism Take 1 tablet (50 mcg total) by mouth mid level net developer before breakfast Active metoprolol tartrate (LOPRESSOR) 25 mg immediate release tabletIndication s:hypertension Take 1 tablet (25 mg total) by mouth 2 (two) times a day Activ e tamsulosin (FLOMAX) 0.4 mg extended release capsuleIndicatio ns:benign prostatic hyperplasia with lower urinary tract sx Take 1 capsule (0.4 mg total) by mouth daily before breakfast Active apixaban (ELIQUIS) 5 mg tabletIndication s:atrial fibrillation Take 1 tablet (5 mg total) by mouth 2 (two) times a day Active cyclobenzaprine (FLEXERIL) 5 mg tablet Take 1 tablet (5 mg total) by mouth 3 (three) times a day as needed for muscle spasms 03/01/20 25 Active amiodarone (PACERONE) 200 mg tablet Take 1 tablet (200 mg total) by mouth 2 (two) times a day 03/01/20 25 Active Additional Information Patient taking differently:200 mg oral 2 times daily,Indications: Cardioversion of Atrial Fibrillation, Informant: Spouse/Significant Other, Reported on 07/29/2025 atorvastatin (LIPITOR) 20 mg tablet Take 1 tablet (20 mg total) by mouth nightly 03/01/20 Active Additional Information Patient taking differently:20 mg oralDaily before breakfast, Indications: hyperlipidemia, Informant: Spouse/Significant Other, Reported on 07/29/2025 famotidine (PEPCID) 20 mg tablet Take 1 tablet (20 mg total) by mouth daily 30 tablet 03/02/20 Active Additional Information Patient taking differently:20 mg oralDaily before breakfast, Indications: gastroesophageal reflux disease, Informant: Self, Reported on 07/29/2025 polyethylene glycol (MIRALAX) 17 gram/dose bulk powderIndication s:constipation Take 17 g by mouth daily 03/01/20 Active Additional Information Patient taking differently:17 g oralDaily PRN, constipation, Indications: constipation, Informant: Spouse/Significant Other, Reported on 07/29/2025 clopidogreL (PLAVIX) 75 mg tablet Take 1 tablet (75 mg total) by mouth daily 30 tablet 05/15/20 Active Additional Information Patient taking differently:75 mg oralDaily before breakfast, Indications: to keep from building up blood clots, Informant: Spouse/Significant Other, Reported on 07/29/2025 acetaminophen 500 mg capsule Take 2 capsules (1,000 mg total) by mouth every 6 (six) hours as needed for pain 30 tablet 05/13/20 Active senna-docusate (PERICOLACE) 8.6-50 mg Take 1 tablet by mouth 2 (two) times a day 30 tablet 05/13/20 Active Additional Information Patient taking differently:1 tablet oral2 times daily PRN, constipation, Reported on 07/29/2025 bumetanide (BUMEX) 1 mg tablet Take 1 tablet (1 mg total) by mouth 2 (two) times a day This is pt's home med 05/13/20 Active Additional Information Patient taking differently:1 mg oral 2 times daily,(No instructions reported), Indications: Edema, Informant: Spouse/Significant Other, Reported on 07/29/2025 insulin lispro (HumaLOG, ADMELOG) 100 unit/mL pen [...] Insulin Instructions. 15 mL 05/13/20 25 Active Additional Information Patient taking differently:, Inject 1-5 units under the skin 3 (three) times a day with meals. Blood glucose mg/dL 150-199: 1 unit, 200-249: 2 units, 250-299: 3 units, 300-349: 4 units, 350 or greater: 5 units. Notify provider for blood glucose greater than 299 mg/dL. Refer to After Visit Summary for Sliding Scale Insulin Instructions.,Indications: type 2 diabetes mellitus, Informant: Spouse/Significant Other, Reported on 07/29/2025 insulin glargine 100 unit/mL vial for injectionIndicat ions:diabetes Inject 25 Units under the skin 2 (two) times a day Does not take often due to low blood sugars Active traMADoL (ULTRAM) 50 mg tablet Take 1 tablet (50 mg total) by mouth every 6 (six) hours as needed 03/23/20 25 Active metOLazone (ZAROXOLYN) 2.5 mg tabletIndication s:unknown by spouse Take 1 tablet (2.5 mg total) by mouth 3 (three) times a week Mon, Wed, Fri 01/18/20 25 Active albuterol HFA (PROVENTIL HFA,VENTOLIN HFA,PROAIR HFA) 90 mcg/actuation inhaler Inhale 1 puff every 6 (six) hours as needed for wheezing or shortness of breath Active Active Problems Problem Noted Date Diagnosed Date 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 Now presenting for planned amputation of Rt 3rd and 4th digits due to wounds/gangrene. - OR 07/16 for Rt 3rd and 4th digit amputation. - Admitted for overnight observation. - PT/OT. - Pt is non ambulatory at baseline - Pain control. -prevalon boots while in bed Anemia of chronic disease 05/09/2025 Assessment & [...] congestive heart failure 02/16/2025 Assessment & Plan (07/16/2025 9:21 AM CDT): Hx CHF, EF in 02/12 was 51 %. Grade I diastolic dysfunction - Continue home regimen as able. - Monitor volume status. Assessment & Plan (05/07/2025 11:39 AM CDT): [...] mellitus, type 2 02/15/2025 Assessment & Plan (07/16/2025 9:18 AM CDT): On OP insulin therapy, however repots that he is not taking his lantus often due to low blood sugars. - From chart review, was on SSI only with good glucose control last admission. - Start SSI only, Adjust regimen as needed. - Diabetic diet. Assessment & Plan (05/10/2025 8:43 AM CDT): [...] Peripheral vascular disease 02/15/2025 Assessment & Plan (07/16/2025 9:15 AM CDT): Hx of bilateral lower extremity angiogram on 02/26/2025 with selective catheterization of the left PT from a right femoral artery cannulation, serial angioplasty of the left PT. - On Plavix and Eliquis as outpatient. F/u timing of resuming. Assessment & Plan (05/11/2025 8:15 AM CDT): [...] Plan (02/27/2025 7:45 AM CDT): Presents From [facility] with multiple wounds to feet and [...] (chronic kidney disease) 02/15/2025 Assessment & Plan (07/16/2025 9:21 AM CDT): Patient with CKD, worsening status last admission following contrast loads. Stopped metolazone last admission. Discharge creatinine 2.7 in April. - Avoid nephrotoxins as able. - Monitor renal function, urine output. Assessment & Plan (05/10/2025 8:42 AM CDT): [...] nephrotoxins Atrial fibrillation 02/15/2025 Assessment & Plan (07/17/2025 10:39 AM CDT): S/p DCCV in 08/2024- Prior electrical cardioversion. On eliquis, metoprolol 25 mg BID, and amiodarone 200 mg daily at home -continue amiodarone, metoprolol. -continue Eliquis Assessment & Plan (05/10/2025 8:39 AM CDT): [...] Tuesday, 03/08 Immobility 02/15/2025 Assessment & Plan (07/16/2025 9:19 AM CDT): Reduced mobility as restricted to bed since right foot surgery 1.5 years ago. Dependent on wheel chair. Now with bilateral foot digit amputations. - Fall precautions and wound care. - PT/OT Assessment & Plan (05/10/2025 8:43 AM CDT): [...] Encounters Date Type Department Care Team Description 08/19/2025 Telephone [facility] Medicine Surgery [address] [facility] [facility] Floor 1 [place] [address] Delilah Adams MD PhD 08/12/2025 Telephone [facility] Medicine Surgery [address] [facility] Floor 1 [place] [phone] Katy Ramirez Appointment 07/29/2025 11:15 AM CDT Office Visit [facility] Medicine Surgery [facility] [facility] 8th [place] [address] [place] [address] Delilah Adams MD PhD Peripheral vascular disease (Primary Dx) 07/16/2025 4:01 PM CDT Anesthesia Event [facility] Operating Room 1 [place] [address] Gilberto Marion MD PhD Alissa Mckeon NP 07/16/2025 2:15 PM CDT - 07/16/2025 4:30 PM CDT Surgery [facility] Operating Room 1 [place] [address] Delilah Adams MD PhD AMPUTATION TOE 3rd and 4th digit 07/16/2025 11:57 AM CDT - 07/18/2025 7:01 PM CDT Hospital Encounter [facility] 1 [place] [address] Delilah Adams MD PhD Multiple open wounds of foot (Primary Dx); Gangrene (HCC) Discharge Disposition: Discharge to home, home health skilled care 07/12/2025 Telephone [facility] Medicine Surgery [address] [facility] [address] 1 [place] [address] Andreas Hansen, [facility] 07/08/2025 Telephone [facility] Medicine Surgery [address] [facility] 2nd Floor [address] [facility] [place] [address] Andreas Hansen, [facility] 07/04/2025 Telephone [facility] Medicine Surgery [address] [facility] [address] 2nd Floor [address] [place] [address] Andreas Hansen, [facility] 07/01/2025 10:00 AM CDT [facility] [address] [place] [address] 8th [place] [address] [place] [address] Delilah Adams MD PhD Gangrene of right foot (HCC) (Primary Dx); Chronic renal disease, stage IV (HCC) 06/03/2025 11:00 AM CDT Office Visit [facility] Medicine Surgery [address] [facility] 8th [place] [address] [place] [address] Delilah Adams MD PhD Atherosclerosis of artery of both lower extremities (Primary Dx) 05/30/2025 10:15 AM CDT Ancillary Procedure [facility] Medicine Vascular Lab at the [facility] [address] [facility] 8th [place] [address] [place] [address] Encounter for surgical aftercare following surgery on the circulatory system from Last 3 Months Immunizations Immunization Administration Dates Next Due Influenza, Trivalent, High D ose, Split, Preservative Free, Intramuscular 08/21/2024 Surgical History Surgery Date Site/Laterality Comments CARDIAC CATHETERIZATION 02/26/2025 Foot/Left Procedure: AMPUTATION TOE; Surgeon: Delilah Adams MD PhD; Location: [facility]; Service: Vascular; Laterality: Left; 3rd and 4th DEBRIDEMENT FOOT 04/21/2025 - 05/20/2025 TOE AMPUTATION 02/19/2025 - 03/20/2025 INSERT / REPLACE / REMOVE PACEMAKER 09/21/2024 - 10/20/2024 AMPUTATION FOOT / TOE 07/16/2025 Right 3rd & 4th toes Medical History Medical History Date Comments Atrial fibrillation (HCC) GERD (gastroesophageal reflux disease) Chronic kidney disease Type 2 diabetes mellitus Retinopathy PVD (peripheral vascular disease) Anemia Gangrene (HCC) Legally blind Family History Medical History Relation Name Comments Anesthesia problems Neg Hx Social History Tobacco Use Types Packs/Day Years Used Date Smoking Tobacco: Never Passive Smoke Exposure: Past Smokeless Tobacco: Never Tobacco Cessation:Counseling Given: Not Answered Alcohol Use Standard Drinks/Week Comments Never 0 (1 standard drink = 0.6 oz pur e alcohol) [facility] Utilities Answer Date Recorded In the past 12 months has [employer], gas, oil, or water [employer] threatened to shut off services in your home? No 05/06/2025 Social Connection and Isolation Panel Answer Date Recorded In a typical week, how many times do you talk on the phone with family, friends, or neighbors? More than three times a week 05/06/2025 How often do you get togethe r with friends or relatives? More than three times a week 05/06/2025 How often do you attend chur ch or temple services? Never 05/06/2025 Do you belong to any clubs o r organizations such as presybeterian groups, unions, fraternal or athletic groups, or school groups? No 05/06/2025 How often do you attend meet ings of the clubs or organizations you belong to? Never 05/06/2025 Are you , , di vorced, , never , or living with a partner? 05/06/2025 Overall Financial Resource Strain (CARDIA) Answe r [...] any time in the past 12 m [facility], were you homeless or living in a residential (including now)? No 05/06/2025 AUDIT-C Answer Date Recorded Q1: How often do you have a drink containing alcohol? Never 07/08/2025 Q2: How many drinks containi ng alcohol do you have on a typical day when you are drinking? Patient does not drink Q3: How often do you have si x or more drinks on one occasion? Never 07/08/2025 Personal Safety Answer Date Recorded Have you ever been in or are you currently in a harmful physical or emotional relationship or is someone making you feel afraid or unsafe? Denies 07/16/2025 Sex and Gender Information Value Date Recorded Sex Assigned at Not on file Legal Sex Male 3:41 AM [employer] Gender Identity Not on file Sexual Orientation Not on file Obstetrics History Last Filed Vital Signs Vital Sign Reading Time Taken Comments Blood Pressure 115/72 07/29/2025 11:36 AM CDT Pulse 76 07/29/2025 11:36 AM CDT Temperature 36.4 C (97.5 F) 07/18/2025 3:22 PM CDT Respiratory Rate 18 07/18/2025 3:22 PM CDT Oxygen Saturation 100% 07/29/2025 11:36 AM CDT Inhaled Oxygen Concentration - - Weight 122.5 kg (270 lb) 07/29/2025 11:36 AM CDT Height 193 cm (6' 4) 07/29/2025 11:36 AM CDT Body Mass Index 32.87 07/29/2025 11:36 AM CDT Plan of Treatment Health Maintenance Due Date Last Done Comments Albumin Creatinine Ratio, Urine 1953 Colon Cancer Screening-Colonoscopy 1955 Hepatitis C Screening 1955 Dilated Eye Exam 1953 Foot Exam 1953 Hepatitis B Screening 1971 Zoster Vaccine (1 of 2) 2003 Abdominal Aortic Aneurysm (A AA) Screen 2018 Well Visit 65+ 2018 DTaP/Tdap/Td Vaccine (1 - Tdap) 10/26/2022 2 Influenza Vaccine (#1) 2025 , 10/03/2024, 08/21/2024, Additional history exists Hemoglobin A1C 11/03/2025 05/04/2025, 02/16/2025 Lipid Panel 02/16/2026 02/16/2025 Depression Screening 05/01/2026 05/01/2025, 02/16/20 25 eGFR 07/16/2026 07/16/2025, 04/22, 05/11/2025, Additional history exists Fall Risk Assessment 07/18/2026 07/18/2025 Pneumococcal vaccine 65+ Completed 01/04/2025 Medical Devices Implanted Type Area Clerical Assistant Device Identifier Shelf Expiration Date Model / Serial / Lot Biotronik Pacemaker Left: Chest Wall Procedures Procedure Name Priority Date/Time Associated Diagnosis Comments POCT GLUCOSE DEVICE Routine 07/18/2025 5 :13 PM CDT POCT GLUCOSE DEVICE Routine 07/18/2025 1 2:10 PM CDT HEMOGLOBIN AND HEMATOCRIT STAT 07/18/2025 10:02 AM CDT POCT GLUCOSE DEVICE Routine 07/18/2025 8 :36 AM CDT CBC WITHOUT DIFFERENTIAL Timed 07/18/2025 6:53 AM CDT TRANSFUSE RED BLOOD CELLS Timed 07/18/2025 2:58 AM CDT PREPARE RBC Timed 07/18/2025 1:24 AM CDT CBC WITHOUT DIFFERENTIAL Routine 07/17/2025 8:56 PM CDT POCT GLUCOSE DEVICE Routine 07/17/2025 8 :10 PM CDT POCT GLUCOSE DEVICE Routine 07/17/2025 5 :21 PM CDT POCT GLUCOSE DEVICE Routine 07/17/2025 1 1:33 AM CDT POCT GLUCOSE DEVICE Routine 07/17/2025 7 :25 AM CDT CBC WITHOUT DIFFERENTIAL STAT 07/17/2025 7:12 AM CDT TYPE AND SCREEN Timed 07/17/2025 12:53 AM CDT DIFFERENTIAL AUTO STAT 07/17/2025 12: 52 AM CDT CBC WITH AUTO DIFFERENTIAL STAT 07/17/2025 12:52 AM CDT EGFR Timed 07/16/2025 11:34 PM CDT CBC WITHOUT DIFFERENTIAL Timed 07/16/2025 11:34 PM CDT BASIC METABOLIC PANEL Timed 07/16/2025 11:34 PM CDT POCT GLUCOSE DEVICE Routine 07/16/2025 8 :36 PM CDT POCT GLUCOSE DEVICE Routine 07/16/2025 5 :30 PM CDT SURGICAL PATHOLOGY Routine 07/16/2025 4: 55 PM CDT Gangrene (HCC) AMPUTATION TOE 07/16/2025 4:07 PM CDT Gangrene (HCC) HEMOGLOBIN AND HEMATOCRIT STAT 07/16/2025 3:43 PM CDT POCT GLUCOSE DEVICE Routine 07/16/2025 3 :42 PM CDT US ARTERIAL DOPPLER LOWER EXTREMITY BILATERAL Routine 05/30/2025 10:47 AM CDT Encounter for surgical aftercare following surgery on the circulatory system HEMOGLOBIN A1C Timed 05/04/2025 4:40 PM CDT LIPID PANEL Routine 02/16/2025 12:16 AM CDT from Last 3 Months or Most Recently Relevant to Health Maintenance Results * POCT glucose (07/18/2025 5:13 PM CDT) Glucose, POC 143 70 - 199 mg/dL Blood 07/18/2025 5:13 PM CDT 07/18/2025 5:13 PM CDT us Delilah Adams MD PhD LAB POCT ORDERABLES - DEVICE Final Result [facility] Department [place] [address] * POCT glucose (07/18/2025 12:10 PM CDT) Glucose, POC 152 70 - 199 mg/dL Blood 07/18/2025 12:1 0 PM CDT 07/18/2025 12:10 PM CDT Delilah Adams MD PhD LAB POCT ORDERABLES - DEVICE Final Result Performing Organization Address City/[facility] Co de Phone Number [facility] [place] [address] * (ABNORMAL) Hemoglobin and hematocrit (07/18/2025 10:02 AM CDT) [facility] Hgb 9.7(L) 13.0 - 17.5 g/dL Hct 31.1(L) 38.9 - 50.3 % [facility] Blood 07/18/2025 10:0 2 AM CDT 07/18/2025 10:14 AM CDT Светлана Stoll FLEET MAINTENANCE FOREMAN LAB BLOOD ORDERABLES Final Result Performing Organization Address City/[facility] Co de Phone Number [facility] Department [place] [address] * POCT glucose (07/18/2025 8:36 AM CDT) Glucose, POC 97 70 - 199 mg/dL Blood 07/18/2025 8:36 AM CDT 07/18/2025 8:36 AM CDT Delilah Adams MD PhD LAB POCT ORDERABLES - DEVICE Final Result Performing Organization Address City/[facility] Co de Phone Number [facility] Department [place] [address] * (ABNORMAL) CBC without differential (07/18/2025 6:53 AM CDT) [facility] WBC 6.02 3.80 - 9.90 K/cumm Hgb 7.4(L) 13.0 - 17.5 g/dL [facility] Hct 22.9(L) 38.9 - 50.3 % [facility] Plt 250 150 - 400 K/cumm [facility] MPV 10.0 9.1 - 12.3 fL [facility] RBC 2.67(L) 4.30 - 5.80 M/cumm [facility] MCV 85.8 81.3 - 96.4 fL [facility] MCH 27.7 27.1 - 33.3 pg [facility] MCHC 32.3 32.3 - 35.7 g/dL [facility] RDW CV 14.1 11.1 - 14.9 % [facility] RDW SD 44.1 35.7 - 48.1 fL [facility] NRBC abs 0.00 0.00 - 0.01 K/cumm [facility] Blood 07/18/2025 6:53 AM CDT 07/18/2025 7:30 AM CDT Narrative [facility] - 07/18/2025 7:36 AM CDT 1 hour after transfusion of red blood cells is complete Delilah Adams MD PhD LAB BLOOD ORDERABLES F inal Result Performing Organization Address City/[facility]/ZIP Co de Phone Number [facility] [place] [address] * Transfuse RBC (07/18/2025 6:02 AM CDT) Blood Delilah Adams MD PhD BLOOD TRANSFUSION [facility] Final Result [facility] [place] [address] * Prepare RBC: 1 Units (07/18/2025 1:24 AM CDT) [facility] Product code [id number] Unit Number [id number] [facility] Product Blood Type OPOS [facility] Dispense Status PRESUMED TRANSFUSED [facility] Blood 07/18/2025 1:24 AM CDT 07/18/2025 2:13 AM CDT Narrative [facility] - 07/18/2025 4:01 PM CDT Are special requirements needed? (All products are leukoreduced and CMV- safe)- >No Date required:-[id number] LRRBC # of [id number] Reasons:-Cardiovascular disease, Hgb <8 g/dL} Delilah Adams MD PhD BLOOD BANK PRODUCT ORD ERABLES Final Result [facility] [place] [address] * (ABNORMAL) CBC without differential (07/17/2025 8:56 PM CDT) Pathologist [facility] WBC 7.66 3.80 - 9.90 K/cumm Hgb 7.2(L) 13.0 - 17.5 g/dL [facility] Hct 23.5(L) 38.9 - 50.3 % [facility] Plt 295 150 - 400 K/cumm [facility] MPV 9.7 9.1 - 12.3 fL [facility] RBC 2.70(L) 4.30 - 5.80 M/cumm [facility] MCV 87.0 81.3 - 96.4 fL [facility] MCH 26.7(L) 27.1 - 33.3 pg [facility] MCHC 30.6(L) 32.3 - 35.7 g/dL [facility] RDW CV 14.3 11.1 - 14.9 % [facility] RDW SD 45.0 35.7 - 48.1 fL [facility] NRBC abs 0.00 0.00 - 0.01 K/cumm [facility] Blood 07/17/2025 8:56 PM CDT 07/17/2025 9:26 PM CDT us Светлана Stoll FLEET MAINTENANCE FOREMAN LAB BLOOD ORDERABLES Final Result Performing Organization Address [facility] Co de Phone Number [facility] [place] [address] * POCT glucose (07/17/2025 8:10 PM CDT) Glucose, POC 147 70 - 199 mg/dL Blood 07/17/2025 8:10 PM CDT 07/17/2025 8:10 PM CDT us Delilah Adams MD PhD LAB POCT ORDERABLES - DEVICE Final Result Performing Organization Address [facility] Co de Phone Number [facility] Department [place] [address] * POCT glucose (07/17/2025 5:21 PM CDT) Glucose, POC 115 70 - 199 mg/dL Blood 07/17/2025 5:21 PM CDT 07/17/2025 5:21 PM CDT us Delilah Adams MD PhD LAB POCT ORDERABLES - DEVICE Final Result Performing Organization Address [facility] Co de Phone Number [facility] [place] [address] * (ABNORMAL) POCT glucose (07/17/2025 11:33 AM CDT) Glucose, POC 201(H) 70 - 199 mg/dL Blood 07/17/2025 11:3 3 AM CDT 07/17/2025 11:33 AM CDT us Delilah Adams MD PhD LAB POCT ORDERABLES - DEVICE Final Result Performing Organization Address City/[facility] Co de Phone Number [facility] Department [place] [address] * POCT glucose (07/17/2025 7:25 AM CDT) [facility] Glucose, POC 140 70 - 199 mg/dL Blood 07/17/2025 7:25 AM CDT 07/17/2025 7:25 AM CDT us Delilah Adams MD PhD LAB POCT ORDERABLES - DEVICE Final Result [facility] Department [place] [address] * (ABNORMAL) CBC without differential (07/17/2025 7:12 AM CDT) [facility] WBC 6.61 3.80 - 9.90 K/cumm Hgb 7.4(L) 13.0 - 17.5 g/dL [facility] Hct 24.1(L) 38.9 - 50.3 % [facility] Plt 317 150 - 400 K/cumm [facility] MPV 10.2 9.1 - 12.3 fL [facility] RBC 2.76(L) 4.30 - 5.80 M/cumm [facility] MCV 87.3 81.3 - 96.4 fL [facility] MCH 26.8(L) 27.1 - 33.3 pg [facility] MCHC 30.7(L) 32.3 - 35.7 g/dL [facility] RDW CV 14.3 11.1 - 14.9 % [facility] RDW SD 45.7 35.7 - 48.1 fL [facility] NRBC abs 0.00 0.00 - 0.01 K/cumm [facility] Blood 07/17/2025 7:12 AM CDT 07/17/2025 8:37 AM CDT us Светлана Stoll FLEET MAINTENANCE FOREMAN LAB BLOOD ORDERABLES Final Result [facility] Department [place] [address] * Type and screen (07/17/2025 12:53 AM CDT) Pathologist [facility] Carly, indirect Negative ABO Rh O Positive [facility] Blood 07/17/2025 12:5 3 AM CDT 07/17/2025 1:56 AM CDT Narrative [facility] - 07/17/2025 2:57 AM CDT Has the patient had Daratumumab or Isatuximab in the past 6 months?->Unknown Delilah Adams MD PhD LAB BLOOD BANK TEST OR DERABLES Final Result [facility] [place] [address] * Differential, auto (07/17/2025 12:52 AM CDT) Pathologist [facility] Neutrophil abs 3.74 1.50 - 6.50 K/cumm Imm gran abs 0.03 0.00 - 0.10 K/cumm [facility] Lymphocyte abs 1.67 0.80 - 3.30 K/cumm [facility] Monocyte abs 0.36 0.20 - 0.80 K/cumm [facility] Eosinophil abs 0.39 0.00 - 0.50 K/cumm [facility] Basophil abs 0.05 0.00 - 0.10 K/cumm [facility] [facility] Neutrophil pct 59.8 % [facility] Comment: Interpretive Data Percent cell count reference ranges are not reported, since discordance with absolute values may lead to misinterpretation of CBC data. Current Interpretive Data was last revised on 2018. Imm gran pct 0.5 % [facility] Comment: Interpretive Data Percent cell count reference ranges are not reported, since discordance with absolute values may lead to misinterpretation of CBC data. Current Interpretive Data was last revised on 2018. Lymphocyte pct 26.8 % [facility] Comment: Interpretive Data Percent cell count reference ranges are not reported, since discordance with absolute values may lead to misinterpretation of CBC data. Current Interpretive Data was last revised on 2018. Monocyte pct 5.8 % [facility] Comment: Interpretive Data Percent cell count reference ranges are not reported, since discordance with absolute values may lead to misinterpretation of CBC data. Current Interpretive Data was last revised on 2018. Eosinophil pct 6.3 % [facility] Comment: Interpretive Data Percent cell count reference ranges are not reported, since discordance with absolute values may lead to misinterpretation of CBC data. Current Interpretive Data was last revised on 2018. Basophil pct 0.8 % [facility] Comment: Interpretive Data Percent cell count reference ranges are not reported, since discordance with absolute values may lead to misinterpretation of CBC data. Current Interpretive Data was last revised on 2018. Blood 07/17/2025 12:5 2 AM CDT 07/17/2025 1:49 AM CDT Delilah Adams MD PhD LAB BLOOD ORDERABLES F inal Result [facility] Department [place] [address] * (ABNORMAL) CBC with auto differential (07/17/2025 12:52 AM CDT) WBC 6.24 3.80 - 9.90 K/cumm Hgb 7.8(L) 13.0 - 17.5 g/dL [facility] Hct 25.1(L) 38.9 - 50.3 % [facility] Plt 292 150 - 400 K/cumm [facility] MPV 10.1 9.1 - 12.3 fL [facility] RBC 2.86(L) 4.30 - 5.80 M/cumm [facility] MCV 87.8 81.3 - 96.4 fL [facility] MCH 27.3 27.1 - 33.3 pg [facility] MCHC 31.1(L) 32.3 - 35.7 g/dL [facility] RDW CV 14.0 11.1 - 14.9 % [facility] RDW SD 44.7 35.7 - 48.1 fL [facility] NRBC abs 0.00 0.00 - 0.01 K/cumm [facility] Blood 07/17/2025 12:5 2 AM CDT 07/17/2025 1:49 AM CDT Delilah Adams MD PhD LAB BLOOD ORDERABLES F inal Result Performing Organization Address City/[facility] Co de Phone Number [facility] Department [place] [address] * (ABNORMAL) eGFR (07/16/2025 11:34 PM CDT) eGFR 22(L) >=60 mL/min/1. 73 m2 Comment: Interpretive Data [...] interpretive data was last reviewed 2021. Blood 07/16/2025 11:3 4 PM CDT 07/16/2025 11:59 PM CDT Delilah Admas MD PhD LAB BLOOD ORDERABLES F inal Result Performing Organization Address City/[facility]/ZIP Co de Phone Number [facility] Department [place] [address] * (ABNORMAL) CBC without differential (07/16/2025 11:34 PM CDT) [facility] WBC 6.37 3.80 - 9.90 K/cumm Hgb 7.4(L) 13.0 - 17.5 g/dL [facility] Hct 24.8(L) 38.9 - 50.3 % [facility] Plt 300 150 - 400 K/cumm [facility] MPV 9.9 9.1 - 12.3 fL [facility] RBC 2.76(L) 4.30 - 5.80 M/cumm [facility] MCV 89.9 81.3 - 96.4 fL [facility] MCH 26.8(L) 27.1 - 33.3 pg [facility] MCHC 29.8(L) 32.3 - 35.7 g/dL [facility] RDW CV 14.1 11.1 - 14.9 % [facility] RDW SD 45.6 35.7 - 48.1 fL [facility] NRBC abs 0.00 0.00 - 0.01 K/cumm [facility] Blood 07/16/2025 11:3 4 PM CDT 07/17/2025 12:00 AM CDT us Delilah Adams MD PhD LAB BLOOD ORDERABLES F inal Result [facility] Department [place] [address] * (ABNORMAL) Basic metabolic panel (07/16/2025 11:34 PM CDT) [facility] Sodium 142 135 - 145 mmol/L Potassium, pl 3.4 3.3 - 4.9 mmol/L [facility] Chloride 97 97 - 110 mmol/L [facility] CO2 31 22 - 32 mmol/L [facility] Anion gap 14 2 - 15 mmol/L [facility] BUN 74(H) 6 - 25 mg/dL [facility] Creatinine 2.94(H) 0.80 - 1.30 mg/dL [facility] Glucose 123 70 - 199 mg/dL [facility] Comment: Interpretive Data Fasting glucose >/= 126 [...] interpretive data was last revised 2022. Calcium 9.3 8.5 - 10.3 mg/dL [facility] Blood 07/16/2025 11:3 4 PM CDT 07/16/2025 11:59 PM CDT Delilah Adams MD PhD LAB BLOOD ORDERABLES F inal Result Performing Organization Address City/[facility]/ZIP Co de Phone Number [facility] Department [place] [address] * POCT glucose (07/16/2025 8:36 PM CDT) Glucose, POC 174 70 - 199 mg/dL Blood 07/16/2025 8:3 6 PM CDT 07/16/2025 8:36 PM CDT Delilah Adams MD PhD LAB POCT ORDERABLES - DEVICE Final Result [facility] [place] [address] * POCT glucose (07/16/2025 5:30 PM CDT) Glucose, POC 177 70 - 199 mg/dL Blood 07/16/2025 5:30 PM CDT 07/16/2025 5:30 PM CDT us Delilah Adams MD PhD LAB POCT ORDERABLES - DEVICE Final Result [facility] Department [place] [address] * Surgical pathology (07/16/2025 4:55 PM CDT) Other (Other) 07/16/2025 4:5 5 PM CDT Narrative PATHOLOGY [facility] - 07/23/2025 11:14 AM CDT EPIC results best viewed via link to PDF [facility] [place] [address] Note to Patients: This report may contain [...] REPORT FINAL Patient Name: GREGORY KAT Gender: Tigist : 1955 (Age: 70) Address: [address] [place] [address] Hospital #: [id number] Taken:07/16/2025 Received:07/16/2025 Reported: 07/23/2025 Patient Type: [facility] OP In Bed Service: Surgery Location: [place] [address] Physician(s): Johnny Velasquez M.D. Diagnosis: Soft tissue, right 3rd and 4th toe, excision - Skin and soft tissue with ulceration, acute inflammation and necrosis j/07/19/2025 13:12 By this signature, I attest that the above diagnosis is based upon my personal examination of the slides(and/or other material indicated in the diagnosis). Job Mcgowan M.D. Report Electronically Reviewed and Signed Out By Job Mcgowan M.D. 07/23/2025 11:14:21 Sergio Sunshine D.O. History: The patient is a 70-year-old man who presents with gangrene. Operative procedure: Amputation toe third and fourth digit). Specimen(s) Received: A: Right 3rd and 4th toe eschar Gross Description: Received in formalin labeled with the patient's identifiers and designated right 3rd and 4th toe eschar are two fragments of hard, dark patino-brown possibly keratotic and gangrenous skin/tissue fragments (1.6 x 1.1 x 0.3 cm, and 2.3 x 2.2 x 0.6 cm) and an additional 1.8 x 1.3 x 0.3 cm aggregate of irregular, white-patino skin/tissue fragments. No bone is grossly identified. The specimen is sampled in A1. Jar 1. sxv/07/17/2025 11:57 PA(s): Star Castillo MS, PA ([facility])CM By this signature, I attest that the above diagnosis is based upon my personal examination of the slides(and/or other material). Addenda/Procedures The performance characteristics of some immunohistochemical stains, fluorescence in-situ hybridization tests and immunophenotyping by flow cytometry cited in this report (if any) were determined by the Surgical Pathology and Flow Cytometry Departments at [facility] as part of an ongoing quality control manager program and in compliance with federally mandated [...] Surgical Pathology and Flow Cytometry Departments of [facility]. It has not been cleared or approved by the U. S. Food and Drug Administration. IMAGES AND SCANNED DOCUMENTS, IF INCLUDED, ONLY VIEWABLE IN PDF VERSION OF REPORT Delilah Adams MD PhD LAB PATHOLOGY ORDERABL ES Final Result Performing Organization Address City/[facility]/ZIP Co de Phone Number PATHOLOGY [facility] [address] Floor [place], [place] [phone] * (ABNORMAL) Hemoglobin and hematocrit (07/16/2025 3:43 PM CDT) Hgb 8.7(L) 13.0 - 17.5 g/dL Hct 29.2(L) 38.9 - 50.3 % [facility] Blood 07/16/2025 3:43 PM CDT 07/16/2025 3:59 PM CDT us Alissa Mckeon NP LAB BLOOD ORDERABLES Final Result Performing Organization Address [facility] Co de Phone Number [facility] Department of [employer] [place], [place] [id number] * POCT glucose (07/16/2025 3:42 PM CDT) Glucose, POC 187 70 - 199 mg/dL Blood 07/16/2025 3:42 PM CDT 07/16/2025 3:42 PM CDT Delilah Adams MD PhD LAB POCT ORDERABLES - DEVICE Final Result Performing Organization Address [facility] Co de Phone Number [facility] [employer] [place], [place] [id number] * US Arterial Doppler Lower Extremity Bilateral (05/30/2025 10:47 AM CDT) Anatomical Region Laterality Modality Vascular Bilateral Ultrasound 05/30/2025 10:1 5 AM CDT Narrative 05/30/2025 8:50 PM CDT [facility] - Department of Vascular Surgery, Vascular Laboratory [address] [place] [address] Lower Extremity Arterial Doppler Report Patient Name: GREGORY KAT : 1955 Study Date: 05/30/2025 10:15:00 AM Gender: M Tech: Mary Abbasi RVT, RDMS Location: [facility] Provider: DELILAH ADAMS Quality: Adequate Order Provider: DELILAH ADAMS PROCEDURES: Arterial Report: Bilateral lower extremity arterial Doppler exam at rest. INDICATIONS: Z48.812 Encounter for surgical aftercare following surgery on the circulatory system. MEASUREMENTS: Right Value Units Left Value Units Rt Brachial Pressure 96 mmHg Lt Brachial Pressure 100 mmHg Rt KEG FILLER Pressure >254 mmHg Lt KEG FILLER Pressure 100 mmHg Rt DPA Pressure >254 mmHg Lt DPA Pressure >254 mmHg Rt 1st Digit Pressure 87 mmHg Lt 1st Digit Pressure 65 mmHg Rt PT ISACC Resting NC Lt PT ISACC Resting 1 Rt AT ISACC Resting NC Lt AT ISACC Resting NC Rt Digit/Arm Index 0.87 Lt Digit/Arm Index 0.65 Right Value Units Left Value Units FINDINGS: Performing Ore Puncher: Mary Abbasi RVT, RDMS. Right Common Femoral Artery Analysis: The common femoral artery waveform is multiphasic. Right Popliteal Artery Analysis: The popliteal waveform is multiphasic. Right Posterior Tibial Artery Analysis: The posterior tibial artery waveform is monophasic with preserved sharp upstroke. Right Anterior Tibial Artery Analysis: The anterior tibial waveform is monophasic. Right Digits: Normal right digit pressure and waveform. Left Common Femoral Artery Analysis: The common femoral artery waveform is multiphasic. Left Popliteal Artery Analysis: The popliteal artery waveform is monophasic with preserved sharp upstroke. Left Posterior Tibial Artery Analysis: The posterior tibial artery waveform is monophasic with preserved sharp upstroke. Left Anterior Tibial Artery Analysis: The anterior tibial waveform is monophasic. Left Digits: Normal left digit pressure and waveform. Comments: Technically difficult due to patient position and body habitus. CONCLUSIONS: 1. The ankle arteries are non-compressible bilaterally which is consistent with arterial calcification thus the Ankle/Brachial Indices are not obtainable. 2. Bilateral Digit/Arm Indices are within normal limits (for reference, normal CARY is >0.6). 3. There is evidence of right leg arterial insufficiency at the level of infrapopliteal arteries. 4. There is evidence of left leg arterial insufficiency at the level of femoral-popliteal arteries. HISTORY: 05-08-2025 left foot debridement 05-06-2025 left right angiogram, left 3rd, 4th, and 5th toe amputations 02-26-2025 left angiogram, left femoral angioplasty CKD, atrial fibrillation, CHF, DM2, immobility, PVD, obesity. PREVIOUS STUDIES: Previous study on 05-01-2025. Bilat [place]. DISCLAIMER: The study images and the final [...] that is provided above. Electronically Signed By: Jan Barragan MD FACS 05/30/2025 7:58:20 PM CDT Procedure Note Jan Barragan MD - 05/30/2025 [employer] [facility] [employer] - Department of Vascular Surgery,Vascular Laboratory [address] [place] [address] Lower Extremity Arterial Doppler Report Patient Name: GREGORY KAT : 1955 Study Date: 05/30/2025 10:15:00 AM Gender: M Tech: Mary Abbasi RVT, RDMS Location: [facility] Provider: DELILHA ADAMS Quality: Adequate Order Provider: DELILAH ADAMS PROCEDURES: Arterial Report: Bilateral lower extremity arterial Doppler exam at rest. INDICATIONS: Z48.812 Encounter for surgical aftercare following surgery on thecirculatory system. MEASUREMENTS: Right Value Units Left Value Units Rt Brachial Pressure 96 mmHg Lt Brachial Pressure 100 mmHg Rt KEG FILLER Pressure >254 mmHg Lt KEG FILLER Pressure 100 mmHg Rt DPA Pressure >254 mmHg Lt DPA Pressure >254 mmHg Rt 1st Digit Pressure 87 mmHg Lt 1st Digit Pressure 65 mmHg Rt PT ISACC Resting NC Lt PT ISACC Resting 1 Rt AT ISACC Resting NC Lt AT ISACC Resting NC Rt Digit/Arm Index 0.87 Lt Digit/Arm Index 0.65 Right Value Units Left Value Units FINDINGS: Performing Ore Puncher: Mary Abbasi RVT, RDMS. Right Common Femoral Artery Analysis: The common femoral artery waveform is multiphasic. Right Popliteal Artery Analysis: The popliteal waveform is multiphasic. Right Posterior Tibial Artery Analysis: The posterior tibial artery waveform is monophasic with preserved sharpupstroke. Right Anterior Tibial Artery Analysis: The anterior tibial waveform is monophasic. Right Digits: Normal right digit pressure and waveform. Left Common Femoral Artery Analysis: The common femoral artery waveform is multiphasic. Left Popliteal Artery Analysis: The popliteal artery waveform is monophasic with preserved sharpupstroke. Left Posterior Tibial Artery Analysis: The posterior tibial artery waveform is monophasic with preserved sharpupstroke. Left Anterior Tibial Artery Analysis: The anterior tibial waveform is monophasic. Left Digits: Normal left digit pressure and waveform. Comments: Technically difficult due to patient position and body habitus. CONCLUSIONS: 1. The ankle arteries are non-compressible bilaterally which is consistentwith arterial calcification thus the Ankle/Brachial Indices are not obtainable. 2. Bilateral Digit/Arm Indices are within normal limits (for reference,normal CARY is >0.6). 3. There is evidence of right leg arterial insufficiency at the level ofinfrapopliteal arteries. 4. There is evidence of left leg arterial insufficiency at the level offemoral-popliteal arteries. HISTORY: 05-08-2025 left foot debridement 05-06-2025 left right angiogram, left 3rd, 4th, and 5th toe amputations 02-26-2025 left angiogram, left femoral angioplasty CKD, atrial fibrillation, CHF, DM2, immobility, PVD, obesity. PREVIOUS STUDIES: Previous study on 05-01-2025. Bilat [place]. DISCLAIMER: The study images and the final report will be retained in the patientchart by the Vascular Laboratory for the legally required time period. This chartconstitutes the legal record of any testing performed. ATTESTATION: I have reviewed and interpreted the pertinent images and measurements ofthis study. I attest to the conclusions in the final report that is provided above. Electronically Signed By: Jan Barragan MD [facility] 05/30/2025 7:58:20 PM CDT [facility] Kam Adams MD PhD IMG US PROCEDURES Magda l Result * (ABNORMAL) Hemoglobin A1c (05/04/2025 4:40 PM CDT) Hgb A1C 6.2(H) 4.0 - 5.6 % Estimated Average Glucose 131 mg/dL [facility] Comment: The ADA recommends reporting an estimated Average Glucose (eAG) with all Hemoglobin A1c results using the equation derived from a study of 507 normal and diabetic adults. Minority populations were underrepresented and children were not included. (Diabetes Care 2020; 43(S1): S66-S76). The eAG is not equivalent to a fasting glucose. Blood 05/04/2025 4:40 PM CDT 05/04/2025 5:42 PM CDT Narrative [facility] - 05/05/2025 8:17 AM CDT Reflex us Delilah Adams MD PhD LAB BLOOD ORDERABLES F inal Result [facility] Department [place] [address] * (ABNORMAL) Lipid panel (02/16/2025 12:16 AM [...] revised on 2018. Triglycerides 146 <=149 mg/dL [facility] Comment: Hemolyzed; result may be falsely [...] on 2018. HDL 23(L) >=40 mg/dL [facility] Comment: Interpretive Data Ages < or = [...] 2018. LDL, calculated 59 <=129 mg/dL [facility] Comment: Interpretive Data Ages < or = [...] on 2024. Non-HDL Cholesterol 85 mg/dL [facility] Comment: Interpretive Data Ages < or = [...] last revised on 2018. Chol/HDL ratio 5 [facility] Blood 02/16/2025 12:1 6 AM CDT 02/16/2025 1:10 AM CDT us Delilah Adams MD PhD LAB BLOOD ORDERABLES F inal Result [facility] [place] [address] from Last 3 Months or Most Recently Relevant to Health Maintenance Insurance MEDICARE ADVANTAGE MEDICARE ADVANTAGE Advance Directives For more information, please contact: [phone] Documents on File Type Date Recorded Patient Special Weapons And Tactics Officer Expl anation ADVANCE DIRECTIVE 03/06/2025 11:59 AM MARLA R OF PERINATAL SPECIALIST-MEDICAL ADVANCE DIRECTIVE 02/18/2025 8:38 AM POWER OF PERINATAL SPECIALIST-MEDICAL * Full Code (Latest Code Status on File) Date Activated Date Inactivated Comments 07/16/2025 7:41 PM 07/18/2025 11:06 PM * Full Code Date Activated Date Inactivated Comments 05/04/2025 2:55 PM 05/13/2025 6:58 PM * Full Code Date Activated Date Inactivated Comments 02/15/2025 8:29 PM 03/02/2025 6:51 PM Healthcare Agents on File Name Relationship Healthcare Agent Relationshi p Communication Landy Kat Spouse Health Care Agent Care Teams Pin Ticket Machine Operator Relationship Specialty Start Date End Date Bryan Hough MD PCP - General 09/22/21 Delilah Adams MD PhD [id number] [place] [address] Consulting Physician Vascular Surgery 03/01/25 Noel Bañuelos MD [address] [place] [address] Consulting Physician Cardiology 07/05/25
--- NOTE | 2025-08-29 22:05 | ED.WEAKNESS ---
HPI - Weakness General Chief complaint: Weakness <Mckenna Gilmore APRN - Last Filed: 08/30/25 04:35> Stated complaint: WORSENING GEN WKNS X 2 WEEKS, NOW HYPOTENSIVE. <Mckenna Gilmore APRN - Last Filed: 08/30/25 04:35> Time Seen by Provider: 08/29/25 20:53 <Mckenna Gilmore APRN - Last Filed: 08/30/25 04:35> History of Present Illness HPI Narrative: Patient is a 70-year-old male who presents to the ER with a 2 day history of weakness and low urine output. He is unable to answer most questions at time of examination but his is in the room and is able to answer for him. Patient's reports he has been complaining of abdominal pain for last 3-4 days. She also reports he has been weak, dizzy, lightheaded, and had decreased p.o. intake. Patient's reports he has a history of chronic kidney disease but has not been on dialysis. His reports he has a history of a pacemaker and takes Eliquis and Plavix. She also endorses a history of abnormal thyroid hormones, CHF, and diabetes. Patient endorses abdominal pain with palpation. His denies any recent fevers, increased shortness of breath, or rectal bleeding. <Mckenna Gilmore APRN - Last Filed: 08/30/25 04:35> Related Data Home medications: Home Medications ?Medication ?Instructions ?Recorded ?Confirmed ?Last Taken ?Type atorvastatin 20 mg tablet 20 mg PO HS 06/30/23 07/25/25 Unknown History albuterol 90 mcg/actuation aerosol 90 mcg inhalation .q4hr PRN 02/14/25 07/25/25 Unknown History inhaler shortness of breath apixaban 5 mg tablet (Eliquis) 5 mg PO BID 02/14/25 07/25/25 Unknown History bumetanide 1 mg tablet 1 mg PO BID 02/14/25 07/25/25 Unknown History insulin glargine 100 unit/mL (3 25 unit subcut .q12hr 02/14/25 07/25/25 Unknown History mL) subcutaneous pen (Marcoaglsamina Lozano U-100 Insulin) insulin lispro 100 unit/mL 10 unit subcut TIDWM 02/14/25 07/25/25 Unknown History subcutaneous pen (Humalog KwikPen (U-100) Insulin) metolazone 2.5 mg tablet 2.5 mg PO QMWF 02/14/25 07/25/25 Unknown History acetaminophen 325 mg tablet 650 mg PO Q4H PRN Pain Rated 5 Or 04/12/25 07/25/25 Unknown History Less clopidogrel 75 mg tablet 75 mg PO DAILY 04/12/25 07/25/25 Unknown History <Mckenna Gilmore APRN - Last Filed: 08/30/25 04:35> Allergies/Adverse reactions: Allergies Allergy/AdvReac Type Severity Reaction Status Date / Time No Known Allergies Allergy Verified 07/25/25 11:20 <Mckenna Gilmore APRN - Last Filed: 08/30/25 04:35> Review of Systems Review of Systems: All systems reviewed & are unremarkable except as noted in HPI and below <Mckenna Gilmore APRN - Last Filed: 08/30/25 04:35> [facility] Past Medical History Medical History: Medical History Atrial fibrillation/flutter CKD (chronic kidney disease) Stage 3 Pressure ulcer of right foot 2021 BPH (benign prostatic hyperplasia) HTN (hypertension) Congestive heart failure Hypothyroidism Diabetes mellitus type 2 in obese <Mckenna Gilmore APRN - Last Filed: 08/30/25 04:35> Surgical History Surgical History: Surgical History S/P foot surgery, right 2021 <Mckenna Gilmore APRN - Last Filed: 08/30/25 04:35> Family History Family History: Family History Unknown Diabetes mellitus <Mckenna Gilmore APRN - Last Filed: 08/30/25 04:35> Social History Social History: Social History Social History: Smoking status: Never smoker Alcohol intake: former Substance use: never Do You Feel Safe in your Home?: Yes Lack of Transportation: No Lack of Food: Never True Current Housing: I Have Housing Concerned About Future Housing: No Difficulty Paying Gas/Electric Bills: No Difficulty Paying for Meds: No Currently Unemployed: No Education: High School Diploma/GED Difficulty w/ Childcare or Family Care: No Living arrangements: with family Additional living arrangements comments: Gender identity (if verbalized by the patient): Male Spiritual care concerns: No <Mckenna Gilmore, STATION MECHANIC HELPER - Last Filed: 08/30/25 04:35> Exam Narrative: GENERAL: Ill appearing, obese, toxic-appearing, in no acute distress. HEAD: Normocephalic, atraumatic. NECK: Supple. No adenopathy, no masses. RESPIRATORY: Airway patent, respirations nonlabored. Clear to auscultation bilaterally, no rales, rhonchi, wheezing. CARDIOVASCULAR: Regular rate and rhythm with murmur. AV paced. Mild pitting edema to bilateral lower extremities. ABDOMINAL: Soft, generalized tenderness, + distended, no hepatosplenomegaly. Normoactive BS. MUSCULOSKELETAL: Moves all extremities. Strength/ROM intact without gross deformities. SKIN: Warm, dry, pallor. No rashes. NEURO: A&O X 2-3. <Mckenna Gilmore, STATION MECHANIC HELPER - Last Filed: 08/30/25 04:35> Course Vital Signs Vital signs: Vital Signs Temperature 97.6 F 08/29/25 20:14 Pulse Rate 60 08/29/25 20:14 Respiratory Rate 14 08/29/25 20:14 Blood Pressure 115/68 08/29/25 20:14 Pulse Oximetry 100 08/29/25 20:14 Oxygen Delivery Room Air 08/29/25 20:14 Temperature 98.3 F 08/30/25 16:24 Pulse Rate 63 08/30/25 16:24 Respiratory Rate 16 08/30/25 16:24 Blood Pressure 136/76 08/30/25 16:24 Pulse Oximetry 100 08/30/25 16:24 Oxygen Delivery Room Air 08/29/25 20:14 <Mckenna Gilmore, STATION MECHANIC HELPER - Last Filed: 08/30/25 04:35> Vital Signs Temperature 97.6 F 08/29/25 20:14 Pulse Rate 60 08/29/25 20:14 Respiratory Rate 14 08/29/25 20:14 Blood Pressure 115/68 08/29/25 20:14 Pulse Oximetry 100 08/29/25 20:14 Oxygen Delivery Room Air 08/29/25 20:14 Temperature 98.3 F 08/30/25 16:24 Pulse Rate 63 08/30/25 16:24 Respiratory Rate 16 08/30/25 16:24 Blood Pressure 136/76 08/30/25 16:24 Pulse Oximetry 100 08/30/25 16:24 Oxygen Delivery Room Air 08/29/25 20:14 <Gilbert Pulliam DO - Last Filed: 08/30/25 06:24> Vital Signs Temperature 97.6 F 08/29/25 20:14 Pulse Rate 60 08/29/25 20:14 Respiratory Rate 14 08/29/25 20:14 Blood Pressure 115/68 08/29/25 20:14 Pulse Oximetry 100 08/29/25 20:14 Oxygen Delivery Room Air 08/29/25 20:14 Temperature 98.3 F 08/30/25 16:24 Pulse Rate 63 08/30/25 16:24 Respiratory Rate 16 08/30/25 16:24 Blood Pressure 136/76 08/30/25 16:24 Pulse Oximetry 100 08/30/25 16:24 Oxygen Delivery Room Air 08/29/25 20:14 <Denilson Holland MD - Last Filed: 08/30/25 17:59> MDM - Weakness MDM Narrative Medical decision making narrative: Patient is a 70-year-old male who presents to the ER with a 2 day history of weakness and low urine output. He is unable to answer most questions at time of examination but his is in the room and is able to answer for him. Patient's reports he has been complaining of abdominal pain for last 3-4 days. She also reports he has been weak, dizzy, lightheaded, and had decreased p.o. intake. Patient's reports he has a history of chronic kidney disease but has never been on dialysis. His reports he has a history of a pacemaker and takes Eliquis and Plavix. She also endorses a history of abnormal thyroid hormones, CHF, and diabetes. Patient endorses abdominal pain with palpation. His denies any recent fevers, increased shortness of breath, or rectal bleeding. Labs Ordered: CBC, CMP, PTT, INR, lactic acid, TSH, proBNP, UA Imaging Ordered: CT abdomen pelvis, chest x-ray Medications Ordered: 1 L normal saline IV bolus, Lasix 40 mg IV Results: Patient's CT abdomen pelvis indicates evaluation is limited by lack of IV contrast and diffuse respiratory artifact. The unenhanced kidneys are grossly unremarkable. No hydronephrosis or obstructive ureteral stones. Bladder wall prominence is a greater than expected for degree of compression with questionable Prosper vesicular fat stranding, which raises the concern for cystitis. No bowel obstruction. Diverticulosis without obvious diverticulitis. No free intraperitoneal fluid or pneumoperitoneum. Hyperdense material in the gallbladder may represent secondary excretion of contrast versus hyperdense sludge. No gallbladder wall thickening or biliary dilatation. The liver, pancreas, spleen and adrenal glands demonstrate no significant acute abnormality. No acute osseous abnormality. Mild edema in the superficial soft tissues suggest positive fluid status. Cardiomegaly with evidence of pacer leads. Trace left and moderate right pleural effusions. Diagnosis: GI bleed, low hemoglobin, acute kidney failure, elevated liver enzymes Consults: 2229-Spoke with Dr. Ramirez, grouter helper, who advised pt will need dialysis sooner than later and it may be in pt's best interest to be transferred elsewhere. Spoke with pt's who requests if pt needs to be transferred she would like him sent to a [place] facility. CRITICAL CARE ADDENDUM: Indication: Low hemoglobin, GI bleed Time type: intermittent I provided a total of 75 minutes of critical care excluding separately billable procedures. This includes time w/ EMS, initial bedside evaluation, reviewing old records, review of testing done while under my care, discussion w/ the family, nurses, emergency management consultant and guiding the patient?s care while in the emergency department. Approximate time distribution: 15 minutes ? Initial evaluation, d/w involved parties, attempting to gather old records. 10 minutes ? Documenting medical record 10 minutes ? Review of results (EKGs, labs, imaging) 20 minutes ? Serial repeat bedside evaluation 20 minutes ? Discussing case with multiple providers Please see main chart for details. Excludes separately billable procedures. 0300- Once pt's CT scans and repeat CMP results were resulted, [facility] was contacted for transfer. 0400- [facility] called back and informed us that [facility] may have a bed available for pt, but the staff there wants GI to accept the patient and they have been unable to get in contact with their GI specialist. They will contact us again once they have more information. 0415- Care signed out to Dr Pulliam pending pt acceptance and transfer to an outside facility. 0430- Pt's rectal temperature was 35.6 C. Will start pt on Ceftriaxone IV and Flagyl IV. <Mckenna Gilmore, STATION MECHANIC HELPER - Last Filed: 08/30/25 04:35> Patient is a 70-year-old male who presents to the ER with a 2 day history of weakness and low urine output. He is unable to answer most questions at time of examination but his is in the room and is able to answer for him. Patient's reports he has been complaining of abdominal pain for last 3-4 days. She also reports he has been weak, dizzy, lightheaded, and had decreased p.o. intake. Patient's reports he has a history of chronic kidney disease but has never been on dialysis. His reports he has a history of a pacemaker and takes Eliquis and Plavix. She also endorses a history of abnormal thyroid hormones, CHF, and diabetes. Patient endorses abdominal pain with palpation. His denies any recent fevers, increased shortness of breath, or rectal bleeding. Labs Ordered: CBC, CMP, PTT, INR, lactic acid, TSH, proBNP, UA Imaging Ordered: CT abdomen pelvis, chest x-ray Medications Ordered: 1 L normal saline IV bolus, Lasix 40 mg IV Results: Patient's CT abdomen pelvis indicates evaluation is limited by lack of IV contrast and diffuse respiratory artifact. The unenhanced kidneys are grossly unremarkable. No hydronephrosis or obstructive ureteral stones. Bladder wall prominence is a greater than expected for degree of compression with questionable Prosper vesicular fat stranding, which raises the concern for cystitis. No bowel obstruction. Diverticulosis without obvious diverticulitis. No free intraperitoneal fluid or pneumoperitoneum. Hyperdense material in the gallbladder may represent secondary excretion of contrast versus hyperdense sludge. No gallbladder wall thickening or biliary dilatation. The liver, pancreas, spleen and adrenal glands demonstrate no significant acute abnormality. No acute osseous abnormality. Mild edema in the superficial soft tissues suggest positive fluid status. Cardiomegaly with evidence of pacer leads. Trace left and moderate right pleural effusions. Diagnosis: GI bleed, low hemoglobin, acute kidney failure, elevated liver enzymes Consults: 2229-Spoke with Dr. Ramirez, grouter helper, who advised pt will need dialysis sooner than later and it may be in pt's best interest to be transferred elsewhere. Spoke with pt's who requests if pt needs to be transferred she would like him sent to a [place] facility. CRITICAL CARE ADDENDUM: Indication: Low hemoglobin, GI bleed Time type: intermittent I provided a total of 75 minutes of critical care excluding separately billable procedures. This includes time w/ EMS, initial bedside evaluation, reviewing old records, review of testing done while under my care, discussion w/ the family, nurses, emergency management consultant and guiding the patient?s care while in the emergency department. Approximate time distribution: 15 minutes ? Initial evaluation, d/w involved parties, attempting to gather old records. 10 minutes ? Documenting medical record 10 minutes ? Review of results (EKGs, labs, imaging) 20 minutes ? Serial repeat bedside evaluation 20 minutes ? Discussing case with multiple providers Please see main chart for details. Excludes separately billable procedures. 0300- Once pt's CT scans and repeat CMP results were resulted, [facility] was contacted for transfer. 0400- [facility] called back and informed us that [facility] may have a bed available for pt, but the staff there wants GI to accept the patient and they have been unable to get in contact with their GI specialist. They will contact us again once they have more information. 0415- Care signed out to Dr Pulliam pending pt acceptance and transfer to an outside facility. 0430- Pt's rectal temperature was 35.6 C. Will start pt on Ceftriaxone IV and Flagyl IV. Patient accepted for transfer to [facility] by Dr. Armstrong. <Gilbert Pulliam, DO - Last Filed: 08/30/25 06:24> Patient is a 70-year-old male who presents to the ER with a 2 day history of weakness and low urine output. He is unable to answer most questions at time of examination but his is in the room and is able to answer for him. Patient's reports he has been complaining of abdominal pain for last 3-4 days. She also reports he has been weak, dizzy, lightheaded, and had decreased p.o. intake. Patient's reports he has a history of chronic kidney disease but has never been on dialysis. His reports he has a history of a pacemaker and takes Eliquis and Plavix. She also endorses a history of abnormal thyroid hormones, CHF, and diabetes. Patient endorses abdominal pain with palpation. His denies any recent fevers, increased shortness of breath, or rectal bleeding. Labs Ordered: CBC, CMP, PTT, INR, lactic acid, TSH, proBNP, UA Imaging Ordered: CT abdomen pelvis, chest x-ray Medications Ordered: 1 L normal saline IV bolus, Lasix 40 mg IV Results: Patient's CT abdomen pelvis indicates evaluation is limited by lack of IV contrast and diffuse respiratory artifact. The unenhanced kidneys are grossly unremarkable. No hydronephrosis or obstructive ureteral stones. Bladder wall prominence is a greater than expected for degree of compression with questionable Prosper vesicular fat stranding, which raises the concern for cystitis. No bowel obstruction. Diverticulosis without obvious diverticulitis. No free intraperitoneal fluid or pneumoperitoneum. Hyperdense material in the gallbladder may represent secondary excretion of contrast versus hyperdense sludge. No gallbladder wall thickening or biliary dilatation. The liver, pancreas, spleen and adrenal glands demonstrate no significant acute abnormality. No acute osseous abnormality. Mild edema in the superficial soft tissues suggest positive fluid status. Cardiomegaly with evidence of pacer leads. Trace left and moderate right pleural effusions. Diagnosis: GI bleed, low hemoglobin, acute kidney failure, elevated liver enzymes Consults: 2229-Spoke with Dr. Ramirez, grouter helper, who advised pt will need dialysis sooner than later and it may be in pt's best interest to be transferred elsewhere. Spoke with pt's who requests if pt needs to be transferred she would like him sent to a [place] facility. CRITICAL CARE ADDENDUM: Indication: Low hemoglobin, GI bleed Time type: intermittent I provided a total of 75 minutes of critical care excluding separately billable procedures. This includes time w/ EMS, initial bedside evaluation, reviewing old records, review of testing done while under my care, discussion w/ the family, nurses, emergency management consultant and guiding the patient?s care while in the emergency department. Approximate time distribution: 15 minutes ? Initial evaluation, d/w involved parties, attempting to gather old records. 10 minutes ? Documenting medical record 10 minutes ? Review of results (EKGs, labs, imaging) 20 minutes ? Serial repeat bedside evaluation 20 minutes ? Discussing case with multiple providers Please see main chart for details. Excludes separately billable procedures. 0300- Once pt's CT scans and repeat CMP results were resulted, [facility] was contacted for transfer. 0400- [facility] called back and informed us that [facility] may have a bed available for pt, but the staff there wants GI to accept the patient and they have been unable to get in contact with their GI specialist. They will contact us again once they have more information. 0415- Care signed out to Dr Pulliam pending pt acceptance and transfer to an outside facility. 0430- Pt's rectal temperature was 35.6 C. Will start pt on Ceftriaxone IV and Flagyl IV. Patient accepted for transfer to [facility] by Dr. Armstrong. --- ([place]) Case was discussed with delio, Dr Mcfarlane, and position was updated on the workup and current status of the patient. [facility] On re-evaluation patient is resting comfortably in no distress. Patient's repeat H&H shows a hemoglobin of 7.4 Patient had a 2nd H&H and once again his hemoglobin did drop to 6.6 and patient was treated with additional 2 units packed red blood cells. Repeat BMP shows a persistently elevated BUN and a creatinine of 6.3 with a normal potassium. Patient did get a bed was transferred without issue. Patient was well-appearing at time of transfer. <Denilson Holland MD - Last Filed: 08/30/25 17:59> Lab Data Result diagrams: 08/30/25 12:32 08/30/25 12:32 <Mckenna Gilmore APRN - Last Filed: 08/30/25 04:35> Labs: Lab Results 08/29/25 08/29/25 08/29/25 Range/Units 20:28 20:36 21:35 WBC 8.4 (4.5-10.0) K/mm3 RBC 2.13 L (4.6-6.20) M/mm3 Hgb 5.1 L* D (14.0-18.0) g/dL Hct 18.4 L* (42.0-52.0) % MCV 86.4 (80-100) fl MCH 23.9 L (26-34) pg MCHC 27.7 L (32-36) g/dl RDW 16.2 H (11.5-14.5) % Plt Count 309 (150-375) k/mm3 MPV 10.3 (7.4-10.4) fl Immature Gran % (Auto) 0.6 H (0-0.5) % Neut % (Auto) 84.7 H (45.5-73.1) % Lymph % (Auto) 8.4 L (18.3-44.2) % Sevier % (Auto) 5.7 (2.6-8.5) % Eos % (Auto) 0.2 (0-4.4) % Baso % (Auto) 0.4 (0.2-1.2) % Lymph # (Auto) 0.70 L (0.9-3.2) K/mm3 Sevier # (Auto) 0.5 (0.1-0.6) K/mm3 Eos # (Auto) 0.0 (0-0.3) K/mm3 Baso # (Auto) 0.0 (0.0-0.1) K/mm3 Abs Immat Gran (auto) 0.05 H (0.00-0.031) K/mm3 Absolute Neuts (auto) 7.1 H (1.3-6.7) K/mm3 Absolute Nucleated RBC 0.610 H (0.0-0.012) K/mm3 Band Neutrophils % Not Reportable Nucleated RBC % 7.3 H (0.0-0.2) % Platelet Estimate Adequate (Adequate) Hypochromasia 1+ Ovalocytes Occasional Schistocytes None seen PT 33.5 H (11.1-14.7) Seconds INR 3.4 APTT 44.9 H (22.3-36.8) Seconds Sodium 135 L (137-145) mmol/L Potassium 4.1 (3.4-5.0) mmol/L Chloride 95 L (98-107) mmol/L Carbon Dioxide 10 L (22-30) mmol/L Anion Gap 30 H (4-12) mmol/L BUN 148 H* D (9-20) mg/dL Creatinine 6.94 H (0.7-1.3) mg/dL Estim Creat Clear Calc 13 ml/min Estimated GFR 8 L (59 - ) Glucose 130 H (65-110) mg/dL Lactic Acid 3.9 H (0.7-2.0) mmol/L Calcium 8.0 L (8.4-10.2) mg/dL Total Bilirubin 2.2 H (0.2-1.3) mg/dL AST 906 H (17-59) U/L ALT 709 H (6-50) U/L Alkaline Phosphatase 148 H (38-126) U/L NT-Pro-B Natriuret Pep > 64806 H (19.9-100) pg/mL Total Protein 7.5 (6.3-8.2) g/dL Albumin 4.1 (3.5-5.1) g/dL TSH (Reflex) 6.890 H (0.465-4.68) uIU/mL Free T4 2.73 H (0.78-2.19) ng/dL Urine Color Yellow (Yellow) Urine Appearance Clear (Clear) Urine pH 5.0 (5.0-9.0) Ur Specific Stockwell 1.017 (1.001-1.035) Urine Protein Negative (Negative) mg/dL Urine Glucose (UA) Negative (Negative) mg/dL Urine Ketones Negative (Negative) mg/dL Ur Blood (Man) Negative (Negative) Urine Nitrate Negative (Negative) Urine Bilirubin Negative (Negative) Urine Urobilinogen 1.0 (<2.0) mg/dL Leukocyte Esterase Rfl Negative (Negative) BJ/UL Ethyl Alcohol (<10) mg/dL Blood Type O Positive Antibody Screen Negative Crossmatch See Detail 08/30/25 08/30/25 08/30/25 Range/Units 01:03 04:59 09:04 WBC (4.5-10.0) K/mm3 RBC (4.6-6.20) M/mm3 Hgb 6.5 L* 7.4 L (14.0-18.0) g/dL Hct 22.2 L 24.7 L (42.0-52.0) % MCV (80-100) fl MCH (26-34) pg MCHC (32-36) g/dl RDW (11.5-14.5) % Plt Count (150-375) k/mm3 MPV (7.4-10.4) fl Immature Gran % (Auto) (0-0.5) % Neut % (Auto) (45.5-73.1) % Lymph % (Auto) (18.3-44.2) % Sevier % (Auto) (2.6-8.5) % Eos % (Auto) (0-4.4) % Baso % (Auto) (0.2-1.2) % Lymph # (Auto) (0.9-3.2) K/mm3 Sevier # (Auto) (0.1-0.6) K/mm3 Eos # (Auto) (0-0.3) K/mm3 Baso # (Auto) (0.0-0.1) K/mm3 Abs Immat Gran (auto) (0.00-0.031) K/mm3 Absolute Neuts (auto) (1.3-6.7) K/mm3 Absolute Nucleated RBC (0.0-0.012) K/mm3 Band Neutrophils % Nucleated RBC % (0.0-0.2) % Platelet Estimate (Adequate) Hypochromasia Ovalocytes Schistocytes PT (11.1-14.7) Seconds INR APTT (22.3-36.8) Seconds Sodium 133 L (137-145) mmol/L Potassium 4.1 (3.4-5.0) mmol/L Chloride 98 (98-107) mmol/L Carbon Dioxide 10 L (22-30) mmol/L Anion Gap 25 H (4-12) mmol/L BUN 146 H* (9-20) mg/dL Creatinine 6.68 H (0.7-1.3) mg/dL Estim Creat Clear Calc 13 ml/min Estimated GFR 8 L (59 - ) Glucose 141 H (65-110) mg/dL Lactic Acid 2.9 H 2.0 (0.7-2.0) mmol/L Calcium 7.6 L (8.4-10.2) mg/dL Total Bilirubin 2.1 H (0.2-1.3) mg/dL AST 838 H (17-59) U/L ALT 709 H (6-50) U/L Alkaline Phosphatase 145 H (38-126) U/L NT-Pro-B Natriuret Pep (19.9-100) pg/mL Total Protein 6.9 (6.3-8.2) g/dL Albumin 3.8 (3.5-5.1) g/dL TSH (Reflex) (0.465-4.68) uIU/mL Free T4 (0.78-2.19) ng/dL Urine Color (Yellow) Urine Appearance (Clear) Urine pH (5.0-9.0) Ur Specific Stockwell (1.001-1.035) Urine Protein (Negative) mg/dL Urine Glucose (UA) (Negative) mg/dL Urine Ketones (Negative) mg/dL Ur Blood (Man) (Negative) Urine Nitrate (Negative) Urine Bilirubin (Negative) Urine Urobilinogen (<2.0) mg/dL Leukocyte Esterase Rfl (Negative) BJ/UL Ethyl Alcohol < 10 (<10) mg/dL Blood Type Antibody Screen Crossmatch 08/30/25 Range/Units 12:32 WBC (4.5-10.0) K/mm3 RBC (4.6-6.20) M/mm3 Hgb 6.6 L* (14.0-18.0) g/dL Hct 21.5 L (42.0-52.0) % MCV (80-100) fl MCH (26-34) pg MCHC (32-36) g/dl RDW (11.5-14.5) % Plt Count (150-375) k/mm3 MPV (7.4-10.4) fl Immature Gran % (Auto) (0-0.5) % Neut % (Auto) (45.5-73.1) % Lymph % (Auto) (18.3-44.2) % Sevier % (Auto) (2.6-8.5) % Eos % (Auto) (0-4.4) % Baso % (Auto) (0.2-1.2) % Lymph # (Auto) (0.9-3.2) K/mm3 Sevier # (Auto) (0.1-0.6) K/mm3 Eos # (Auto) (0-0.3) K/mm3 Baso # (Auto) (0.0-0.1) K/mm3 Abs Immat Gran (auto) (0.00-0.031) K/mm3 Absolute Neuts (auto) (1.3-6.7) K/mm3 Absolute Nucleated RBC (0.0-0.012) K/mm3 Band Neutrophils % Nucleated RBC % (0.0-0.2) % Platelet Estimate (Adequate) Hypochromasia Ovalocytes Schistocytes PT (11.1-14.7) Seconds INR APTT (22.3-36.8) Seconds Sodium 136 L (137-145) mmol/L Potassium 3.8 (3.4-5.0) mmol/L Chloride 99 (98-107) mmol/L Carbon Dioxide 8 L (22-30) mmol/L Anion Gap 29 H (4-12) mmol/L BUN 150 H* (9-20) mg/dL Creatinine 6.30 H (0.7-1.3) mg/dL Estim Creat Clear Calc 14 ml/min Estimated GFR 9 L (59 - ) Glucose 120 H (65-110) mg/dL Lactic Acid (0.7-2.0) mmol/L Calcium 7.7 L (8.4-10.2) mg/dL Total Bilirubin (0.2-1.3) mg/dL AST (17-59) U/L ALT (6-50) U/L Alkaline Phosphatase (38-126) U/L NT-Pro-B Natriuret Pep (19.9-100) pg/mL Total Protein (6.3-8.2) g/dL Albumin (3.5-5.1) g/dL TSH (Reflex) (0.465-4.68) uIU/mL Free T4 (0.78-2.19) ng/dL Urine Color (Yellow) Urine Appearance (Clear) Urine pH (5.0-9.0) Ur Specific [place] (1.001-1.035) Urine Protein (Negative) mg/dL Urine Glucose (UA) (Negative) mg/dL Urine Ketones (Negative) mg/dL Ur Blood (Man) (Negative) Urine Nitrate (Negative) Urine Bilirubin (Negative) Urine Urobilinogen (<2.0) mg/dL Leukocyte Esterase Rfl (Negative) BJ/UL Ethyl Alcohol (<10) mg/dL Blood Type Antibody Screen Crossmatch <Mckenna Gilmore, [employer] - Last Filed: 08/30/25 04:35> Lab Results 10/09/25 10/09/25 10/09/25 Range/Units 20:28 20:36 21:35 WBC 8.4 (4.5-10.0) K/mm3 RBC 2.13 L (4.6-6.20) M/mm3 Hgb 5.1 L* D (14.0-18.0) g/dL Hct 18.4 L* (42.0-52.0) % MCV 86.4 (80-100) fl MCH 23.9 L (26-34) pg MCHC 27.7 L (32-36) g/dl RDW 16.2 H (11.5-14.5) % Plt Count 309 (150-375) k/mm3 MPV 10.3 (7.4-10.4) fl Immature Gran % (Auto) 0.6 H (0-0.5) % Neut % (Auto) 84.7 H (45.5-73.1) % Lymph % (Auto) 8.4 L (18.3-44.2) % [place] % (Auto) 5.7 (2.6-8.5) % Eos % (Auto) 0.2 (0-4.4) % Baso % (Auto) 0.4 (0.2-1.2) % Lymph # (Auto) 0.70 L (0.9-3.2) K/mm3 [place] # (Auto) 0.5 (0.1-0.6) K/mm3 Eos # (Auto) 0.0 (0-0.3) K/mm3 Baso # (Auto) 0.0 (0.0-0.1) K/mm3 Abs Immat Gran (auto) 0.05 H (0.00-0.031) K/mm3 Absolute Neuts (auto) 7.1 H (1.3-6.7) K/mm3 Absolute Nucleated RBC 0.610 H (0.0-0.012) K/mm3 Band Neutrophils % Not Reportable Nucleated RBC % 7.3 H (0.0-0.2) % Platelet Estimate Adequate (Adequate) Hypochromasia 1+ Ovalocytes Occasional Schistocytes None seen PT 33.5 H (11.1-14.7) Seconds INR 3.4 APTT 44.9 H (22.3-36.8) Seconds Sodium 135 L (137-145) mmol/L Potassium 4.1 (3.4-5.0) mmol/L Chloride 95 L (98-107) mmol/L Carbon Dioxide 10 L (22-30) mmol/L Anion Gap 30 H (4-12) mmol/L BUN 148 H* D (9-20) mg/dL Creatinine 6.94 H (0.7-1.3) mg/dL Estim Creat Clear Calc 13 ml/min Estimated GFR 8 L (59 - ) Glucose 130 H (65-110) mg/dL Lactic Acid 3.9 H (0.7-2.0) mmol/L Calcium 8.0 L (8.4-10.2) mg/dL Total Bilirubin 2.2 H (0.2-1.3) mg/dL AST 906 H (17-59) U/L ALT 709 H (6-50) U/L Alkaline Phosphatase 148 H (38-126) U/L NT-Pro-B Natriuret Pep > 99534 H (19.9-100) pg/mL Total Protein 7.5 (6.3-8.2) g/dL Albumin 4.1 (3.5-5.1) g/dL TSH (Reflex) 6.890 H (0.465-4.68) uIU/mL Free T4 2.73 H (0.78-2.19) ng/dL Urine Color Yellow (Yellow) Urine Appearance Clear (Clear) Urine pH 5.0 (5.0-9.0) Ur Specific [place] 1.017 (1.001-1.035) Urine Protein Negative (Negative) mg/dL Urine Glucose (UA) Negative (Negative) mg/dL Urine Ketones Negative (Negative) mg/dL Ur Blood (Man) Negative (Negative) Urine Nitrate Negative (Negative) Urine Bilirubin Negative (Negative) Urine Urobilinogen 1.0 (<2.0) mg/dL Leukocyte Esterase Rfl Negative (Negative) BJ/UL Ethyl Alcohol (<10) mg/dL Blood Type O Positive Antibody Screen Negative Crossmatch See Detail 08/30/25 08/30/25 08/30/25 Range/Units 01:03 04:59 09:04 WBC (4.5-10.0) K/mm3 RBC (4.6-6.20) M/mm3 Hgb 6.5 L* 7.4 L (14.0-18.0) g/dL Hct 22.2 L 24.7 L (42.0-52.0) % MCV (80-100) fl MCH (26-34) pg MCHC (32-36) g/dl RDW (11.5-14.5) % Plt Count (150-375) k/mm3 MPV (7.4-10.4) fl Immature Gran % (Auto) (0-0.5) % Neut % (Auto) (45.5-73.1) % Lymph % (Auto) (18.3-44.2) % [place] % (Auto) (2.6-8.5) % Eos % (Auto) (0-4.4) % Baso % (Auto) (0.2-1.2) % Lymph # (Auto) (0.9-3.2) K/mm3 [place] # (Auto) (0.1-0.6) K/mm3 Eos # (Auto) (0-0.3) K/mm3 Baso # (Auto) (0.0-0.1) K/mm3 Abs Immat Gran (auto) (0.00-0.031) K/mm3 Absolute Neuts (auto) (1.3-6.7) K/mm3 Absolute Nucleated RBC (0.0-0.012) K/mm3 Band Neutrophils % Nucleated RBC % (0.0-0.2) % Platelet Estimate (Adequate) Hypochromasia Ovalocytes Schistocytes PT (11.1-14.7) Seconds INR APTT (22.3-36.8) Seconds Sodium 133 L (137-145) mmol/L Potassium 4.1 (3.4-5.0) mmol/L Chloride 98 (98-107) mmol/L Carbon Dioxide 10 L (22-30) mmol/L Anion Gap 25 H (4-12) mmol/L BUN 146 H* (9-20) mg/dL Creatinine 6.68 H (0.7-1.3) mg/dL Estim Creat Clear Calc 13 ml/min Estimated GFR 8 L (59 - ) Glucose 141 H (65-110) mg/dL Lactic Acid 2.9 H 2.0 (0.7-2.0) mmol/L Calcium 7.6 L (8.4-10.2) mg/dL Total Bilirubin 2.1 H (0.2-1.3) mg/dL AST 838 H (17-59) U/L ALT 709 H (6-50) U/L Alkaline Phosphatase 145 H (38-126) U/L NT-Pro-B Natriuret Pep (19.9-100) pg/mL Total Protein 6.9 (6.3-8.2) g/dL Albumin 3.8 (3.5-5.1) g/dL TSH (Reflex) (0.465-4.68) uIU/mL Free T4 (0.78-2.19) ng/dL Urine Color (Yellow) Urine Appearance (Clear) Urine pH (5.0-9.0) Ur Specific [place] (1.001-1.035) Urine Protein (Negative) mg/dL Urine Glucose (UA) (Negative) mg/dL Urine Ketones (Negative) mg/dL Ur Blood (Man) (Negative) Urine Nitrate (Negative) Urine Bilirubin (Negative) Urine Urobilinogen (<2.0) mg/dL Leukocyte Esterase Rfl (Negative) BJ/UL Ethyl Alcohol < 10 (<10) mg/dL Blood Type Antibody Screen Crossmatch 08/30/25 Range/Units 12:32 WBC (4.5-10.0) K/mm3 RBC (4.6-6.20) M/mm3 Hgb 6.6 L* (14.0-18.0) g/dL Hct 21.5 L (42.0-52.0) % MCV (80-100) fl MCH (26-34) pg MCHC (32-36) g/dl RDW (11.5-14.5) % Plt Count (150-375) k/mm3 MPV (7.4-10.4) fl Immature Gran % (Auto) (0-0.5) % Neut % (Auto) (45.5-73.1) % Lymph % (Auto) (18.3-44.2) % [place] % (Auto) (2.6-8.5) % Eos % (Auto) (0-4.4) % Baso % (Auto) (0.2-1.2) % Lymph # (Auto) (0.9-3.2) K/mm3 [place] # (Auto) (0.1-0.6) K/mm3 Eos # (Auto) (0-0.3) K/mm3 Baso # (Auto) (0.0-0.1) K/mm3 Abs Immat Gran (auto) (0.00-0.031) K/mm3 Absolute Neuts (auto) (1.3-6.7) K/mm3 Absolute Nucleated RBC (0.0-0.012) K/mm3 Band Neutrophils % Nucleated RBC % (0.0-0.2) % Platelet Estimate (Adequate) Hypochromasia Ovalocytes Schistocytes PT (11.1-14.7) Seconds INR APTT (22.3-36.8) Seconds Sodium 136 L (137-145) mmol/L Potassium 3.8 (3.4-5.0) mmol/L Chloride 99 (98-107) mmol/L Carbon Dioxide 8 L (22-30) mmol/L Anion Gap 29 H (4-12) mmol/L BUN 150 H* (9-20) mg/dL Creatinine 6.30 H (0.7-1.3) mg/dL Estim Creat Clear Calc 14 ml/min Estimated GFR 9 L (59 - ) Glucose 120 H (65-110) mg/dL Lactic Acid (0.7-2.0) mmol/L Calcium 7.7 L (8.4-10.2) mg/dL Total Bilirubin (0.2-1.3) mg/dL AST (17-59) U/L ALT (6-50) U/L Alkaline Phosphatase (38-126) U/L NT-Pro-B Natriuret Pep (19.9-100) pg/mL Total Protein (6.3-8.2) g/dL Albumin (3.5-5.1) g/dL TSH (Reflex) (0.465-4.68) uIU/mL Free T4 (0.78-2.19) ng/dL Urine Color (Yellow) Urine Appearance (Clear) Urine pH (5.0-9.0) Ur Specific [place] (1.001-1.035) Urine Protein (Negative) mg/dL Urine Glucose (UA) (Negative) mg/dL Urine Ketones (Negative) mg/dL Ur Blood (Man) (Negative) Urine Nitrate (Negative) Urine Bilirubin (Negative) Urine Urobilinogen (<2.0) mg/dL Leukocyte Esterase Rfl (Negative) BJ/UL Ethyl Alcohol (<10) mg/dL Blood Type Antibody Screen Crossmatch <Gilbert Pulliam, - Last Filed: 08/30/25 06:24> Lab Results 08/29/25 08/29/25 08/29/25 Range/Units 20:28 20:36 21:35 WBC 8.4 (4.5-10.0) K/mm3 RBC 2.13 L (4.6-6.20) M/mm3 Hgb 5.1 L* D (14.0-18.0) g/dL Hct 18.4 L* (42.0-52.0) % MCV 86.4 (80-100) fl MCH 23.9 L (26-34) pg MCHC 27.7 L (32-36) g/dl RDW 16.2 H (11.5-14.5) % Plt Count 309 (150-375) k/mm3 MPV 10.3 (7.4-10.4) fl Immature Gran % (Auto) 0.6 H (0-0.5) % Neut % (Auto) 84.7 H (45.5-73.1) % Lymph % (Auto) 8.4 L (18.3-44.2) % [place] % (Auto) 5.7 (2.6-8.5) % Eos % (Auto) 0.2 (0-4.4) % Baso % (Auto) 0.4 (0.2-1.2) % Lymph # (Auto) 0.70 L (0.9-3.2) K/mm3 [place] # (Auto) 0.5 (0.1-0.6) K/mm3 Eos # (Auto) 0.0 (0-0.3) K/mm3 Baso # (Auto) 0.0 (0.0-0.1) K/mm3 Abs Immat Gran (auto) 0.05 H (0.00-0.031) K/mm3 Absolute Neuts (auto) 7.1 H (1.3-6.7) K/mm3 Absolute Nucleated RBC 0.610 H (0.0-0.012) K/mm3 Band Neutrophils % Not Reportable Nucleated RBC % 7.3 H (0.0-0.2) % Platelet Estimate Adequate (Adequate) Hypochromasia 1+ Ovalocytes Occasional Schistocytes None seen PT 33.5 H (11.1-14.7) Seconds INR 3.4 APTT 44.9 H (22.3-36.8) Seconds Sodium 135 L (137-145) mmol/L Potassium 4.1 (3.4-5.0) mmol/L Chloride 95 L (98-107) mmol/L Carbon Dioxide 10 L (22-30) mmol/L Anion Gap 30 H (4-12) mmol/L BUN 148 H* D (9-20) mg/dL Creatinine 6.94 H (0.7-1.3) mg/dL Estim Creat Clear Calc 13 ml/min Estimated GFR 8 L (59 - ) Glucose 130 H (65-110) mg/dL Lactic Acid 3.9 H (0.7-2.0) mmol/L Calcium 8.0 L (8.4-10.2) mg/dL Total Bilirubin 2.2 H (0.2-1.3) mg/dL AST 906 H (17-59) U/L ALT 709 H (6-50) U/L Alkaline Phosphatase 148 H (38-126) U/L NT-Pro-B Natriuret Pep > 76176 H (19.9-100) pg/mL Total Protein 7.5 (6.3-8.2) g/dL Albumin 4.1 (3.5-5.1) g/dL TSH (Reflex) 6.890 H (0.465-4.68) uIU/mL Free T4 2.73 H (0.78-2.19) ng/dL Urine Color Yellow (Yellow) Urine Appearance Clear (Clear) Urine pH 5.0 (5.0-9.0) Ur Specific [place] 1.017 (1.001-1.035) Urine Protein Negative (Negative) mg/dL Urine Glucose (UA) Negative (Negative) mg/dL Urine Ketones Negative (Negative) mg/dL Ur Blood (Man) Negative (Negative) Urine Nitrate Negative (Negative) Urine Bilirubin Negative (Negative) Urine Urobilinogen 1.0 (<2.0) mg/dL Leukocyte Esterase Rfl Negative (Negative) BJ/UL Ethyl Alcohol (<10) mg/dL Blood Type O Positive Antibody Screen Negative Crossmatch See Detail 08/30/25 08/30/25 08/30/25 Range/Units 01:03 04:59 09:04 WBC (4.5-10.0) K/mm3 RBC (4.6-6.20) M/mm3 Hgb 6.5 L* 7.4 L (14.0-18.0) g/dL Hct 22.2 L 24.7 L (42.0-52.0) % MCV (80-100) fl MCH (26-34) pg MCHC (32-36) g/dl RDW (11.5-14.5) % Plt Count (150-375) k/mm3 MPV (7.4-10.4) fl Immature Gran % (Auto) (0-0.5) % Neut % (Auto) (45.5-73.1) % Lymph % (Auto) (18.3-44.2) % [place] % (Auto) (2.6-8.5) % Eos % (Auto) (0-4.4) % Baso % (Auto) (0.2-1.2) % Lymph # (Auto) (0.9-3.2) K/mm3 [place] # (Auto) (0.1-0.6) K/mm3 Eos # (Auto) (0-0.3) K/mm3 Baso # (Auto) (0.0-0.1) K/mm3 Abs Immat Gran (auto) (0.00-0.031) K/mm3 Absolute Neuts (auto) (1.3-6.7) K/mm3 Absolute Nucleated RBC (0.0-0.012) K/mm3 Band Neutrophils % Nucleated RBC % (0.0-0.2) % Platelet Estimate (Adequate) Hypochromasia Ovalocytes Schistocytes PT (11.1-14.7) Seconds INR APTT (22.3-36.8) Seconds Sodium 133 L (137-145) mmol/L Potassium 4.1 (3.4-5.0) mmol/L Chloride 98 (98-107) mmol/L Carbon Dioxide 10 L (22-30) mmol/L Anion Gap 25 H (4-12) mmol/L BUN 146 H* (9-20) mg/dL Creatinine 6.68 H (0.7-1.3) mg/dL Estim Creat Clear Calc 13 ml/min Estimated GFR 8 L (59 - ) Glucose 141 H (65-110) mg/dL Lactic Acid 2.9 H 2.0 (0.7-2.0) mmol/L Calcium 7.6 L (8.4-10.2) mg/dL Total Bilirubin 2.1 H (0.2-1.3) mg/dL AST 838 H (17-59) U/L ALT 709 H (6-50) U/L Alkaline Phosphatase 145 H (38-126) U/L NT-Pro-B Natriuret Pep (19.9-100) pg/mL Total Protein 6.9 (6.3-8.2) g/dL Albumin 3.8 (3.5-5.1) g/dL TSH (Reflex) (0.465-4.68) uIU/mL Free T4 (0.78-2.19) ng/dL Urine Color (Yellow) Urine Appearance (Clear) Urine pH (5.0-9.0) Ur Specific [place] (1.001-1.035) Urine Protein (Negative) mg/dL Urine Glucose (UA) (Negative) mg/dL Urine Ketones (Negative) mg/dL Ur Blood (Man) (Negative) Urine Nitrate (Negative) Urine Bilirubin (Negative) Urine Urobilinogen (<2.0) mg/dL Leukocyte Esterase Rfl (Negative) BJ/UL Ethyl Alcohol < 10 (<10) mg/dL Blood Type Antibody Screen Crossmatch 08/30/25 Range/Units 12:32 WBC (4.5-10.0) K/mm3 RBC (4.6-6.20) M/mm3 Hgb 6.6 L* (14.0-18.0) g/dL Hct 21.5 L (42.0-52.0) % MCV (80-100) fl MCH (26-34) pg MCHC (32-36) g/dl RDW (11.5-14.5) % Plt Count (150-375) k/mm3 MPV (7.4-10.4) fl Immature Gran % (Auto) (0-0.5) % Neut % (Auto) (45.5-73.1) % Lymph % (Auto) (18.3-44.2) % [place] % (Auto) (2.6-8.5) % Eos % (Auto) (0-4.4) % Baso % (Auto) (0.2-1.2) % Lymph # (Auto) (0.9-3.2) K/mm3 [place] # (Auto) (0.1-0.6) K/mm3 Eos # (Auto) (0-0.3) K/mm3 Baso # (Auto) (0.0-0.1) K/mm3 Abs Immat Gran (auto) (0.00-0.031) K/mm3 Absolute Neuts (auto) (1.3-6.7) K/mm3 Absolute Nucleated RBC (0.0-0.012) K/mm3 Band Neutrophils % Nucleated RBC % (0.0-0.2) % Platelet Estimate (Adequate) Hypochromasia Ovalocytes Schistocytes PT (11.1-14.7) Seconds INR APTT (22.3-36.8) Seconds Sodium 136 L (137-145) mmol/L Potassium 3.8 (3.4-5.0) mmol/L Chloride 99 (98-107) mmol/L Carbon Dioxide 8 L (22-30) mmol/L Anion Gap 29 H (4-12) mmol/L BUN 150 H* (9-20) mg/dL Creatinine 6.30 H (0.7-1.3) mg/dL Estim Creat Clear Calc 14 ml/min Estimated GFR 9 L (59 - ) Glucose 120 H (65-110) mg/dL Lactic Acid (0.7-2.0) mmol/L Calcium 7.7 L (8.4-10.2) mg/dL Total Bilirubin (0.2-1.3) mg/dL AST (17-59) U/L ALT (6-50) U/L Alkaline Phosphatase (38-126) U/L NT-Pro-B Natriuret Pep (19.9-100) pg/mL Total Protein (6.3-8.2) g/dL Albumin (3.5-5.1) g/dL TSH (Reflex) (0.465-4.68) uIU/mL Free T4 (0.78-2.19) ng/dL Urine Color (Yellow) Urine Appearance (Clear) Urine pH (5.0-9.0) Ur Specific [place] (1.001-1.035) Urine Protein (Negative) mg/dL Urine Glucose (UA) (Negative) mg/dL Urine Ketones (Negative) mg/dL Ur Blood (Man) (Negative) Urine Nitrate (Negative) Urine Bilirubin (Negative) Urine Urobilinogen (<2.0) mg/dL Leukocyte Esterase Rfl (Negative) BJ/UL Ethyl Alcohol (<10) mg/dL Blood Type Antibody Screen Crossmatch <Denilson Holland MD - Last Filed: 08/30/25 17:59> Critical Care Time Critical Care Time Critical Care Time: Yes <Mckenna Gilmore APRN - Last Filed: 08/30/25 04:35> Total Critical Care Time: 75 <Mckenna Gilmore APRN - Last Filed: 08/30/25 04:35> Discharge Plan Discharge Clinical Impression: Acute renal failure, Anemia, Hypothyroidism, Sepsis, Transaminitis, Heart failure <Mckenna Gilmore APRN - Last Filed: 08/30/25 04:35> Patient Disposition: Acute Care Hospital <Mckenna Gilmore APRN - Last Filed: 08/30/25 04:35> Condition: Critical <Mckenna Gilmore APRN - Last Filed: 08/30/25 04:35> Patient Language: Jordanian <Mckenna Gilmore APRN - Last Filed: 08/30/25 04:35> Prescriptions: No Action Eliquis 5 mg tablet 5 mg PO BID metolazone 2.5 mg tablet 2.5 mg PO QMWF insulin glargine [Basaglar KwikPen U-100 Insulin] 100 unit/mL (3 mL) insulin pen 25 unit subcut .q12hr insulin lispro [Humalog KwikPen Insulin] 100 unit/mL insulin pen 10 unit subcut TIDWM albuterol 90 mcg/actuation aerosol 90 mcg inhalation .q4hr PRN (Reason: shortness of breath) Rx Instructions: 2 puffs bumetanide 1 mg Tablet 1 mg PO BID clopidogrel 75 mg tablet 75 mg PO DAILY acetaminophen 325 mg Tablet 650 mg PO Q4H PRN (Reason: Pain Rated 5 Or Less) atorvastatin 20 mg Tablet 20 mg PO HS cyclobenzaprine 10 mg Tablet 5 mg PO Q8H PRN (Reason: Muscle Spasm) Qty: 30 0RF amiodarone [Pacerone] 200 mg Tablet 200 mg PO Q12HR Qty: 60 0RF famotidine 20 mg Tablet 20 mg PO DAILY Qty: 30 0RF tamsulosin 0.4 mg Capsule 0.4 mg PO QAM Qty: 30 0RF levothyroxine [Synthroid] 50 mcg Tablet 50 mcg PO DAILY@0630 Qty: 30 0RF aspirin [Children's Aspirin] 81 mg Tablet,Chewable 81 mg PO DAILY@0800 Qty: 30 0RF metoprolol tartrate 25 mg Tablet 25 mg PO Q12HR Qty: 60 0RF <Mckenna Gilmore APRN - Last Filed: 08/30/25 04:35> Follow-up/Referrals: Hough,MD Bryan [Primary Care Provider] <Mckenna Gilmore APRN - Last Filed: 08/30/25 04:35> Time of Disposition: 06:24 <Mckenna Gilmore APRN - Last Filed: 08/30/25 04:35> 06:24 <Gilbert Pulliam DO - Last Filed: 08/30/25 06:24> 06:24 <Denilson Holland MD - Last Filed: 08/30/25 17:59>
[2025-08-29] MEDS: SODIUM CHLORIDE 0.9% IV 1,000 ML 999 ML IV CONT (22:08)
[2025-08-29 22:48] LABS: Thyroid Stimulating Hormone Reflex 6.890 uIU/mL (0.465-4.68)
[2025-08-29 22:51] VITALS: BP 105/66; PULSE 64; RESP 13; TEMP 36.3; O2SAT 100
[2025-08-29 22:53] LABS: NT Pro B Type Natriuretic Pept > 30000 pg/mL (19.9-100)
[2025-08-29] MEDS: SODIUM CHLORIDE 0.9% IV 250 ML 30 ML IV CONT (22:53)
[2025-08-29] MEDS: TUBING, BLOOD PLUM PUMP TUBING 1 EACH XX (22:53)
[2025-08-29 23:06] VITALS: BP 114/72; PULSE 60; RESP 18; TEMP 36.3; O2SAT 100
[2025-08-29 23:42] LABS: Free T4 Free Thyroxine Reflex 2.73 ng/dL (0.78-2.19)
[2025-08-30] VITALS (116 sets, daily range): BP systolic 102–145; BP diastolic 50–96; PULSE 60–84; RESP 13–21; TEMP 32.8–37.1; O2SAT 95–100
[2025-08-30] MEDS: FUROSEMIDE INJ 40 MG/4 ML VIAL IV PUSH (01:12)
[2025-08-30 01:21] LABS: Alanine Aminotransferase 709 U/L (6-50); Albumin Level 3.8 g/dL (3.5-5.1); Alkaline Phosphatase 145 U/L (38-126); Anion Gap 25 mmol/L (4-12); Bilirubin,Total 2.1 mg/dL (0.2-1.3); Calcium 7.6 mg/dL (8.4-10.2); Carbon Dioxide 10 mmol/L (22-30); Chloride 98 mmol/L (98-107); Glucose 141 mg/dL (65-110); Potassium 4.1 mmol/L (3.4-5.0); Sodium 133 mmol/L (137-145); Total Protein 6.9 g/dL (6.3-8.2)
[2025-08-30 01:36] LABS: Estimated CRCL calculation 13 ml/min; Estimated Glomerular Filt Rate 8
[2025-08-30 01:41] LABS: Aspartate Amino Transferase 838 U/L (17-59); Blood Urea Nitrogen 146 mg/dL (9-20)
[2025-08-30 05:04] LABS: Hematocrit 22.2 % (42.0-52.0)
[2025-08-30] MEDS: cefTRIAXone 1 GM in SODIUM CHLORIDE 0.9% IV 50 ML 100 ML IVPB (05:04)
[2025-08-30] MEDS: metroNIDAZOLE 500 MG/ISO 100ML 500 MG/100 ML BAG 100 MG IVPB (05:05)
[2025-08-30 05:18] LABS: Hemoglobin 6.5 g/dL (14.0-18.0)
[2025-08-30 09:08] LABS: Hematocrit 24.7 % (42.0-52.0); Hemoglobin 7.4 g/dL (14.0-18.0)
--- NOTE | 2025-08-30 11:18 | PC.NURSE ---
Spoke with [facility] transfer center at 10 am, update given, still no bed available.
--- NOTE | 2025-08-30 12:11 | PC.NURSE ---
Spoke with Nicholas from [facility] and gave update on patient condition. no bed assigned as of yet.
[2025-08-30 12:42] LABS: Hematocrit 21.5 % (42.0-52.0)
[2025-08-30 12:46] LABS: Hemoglobin 6.6 g/dL (14.0-18.0)
[2025-08-30 13:03] LABS: Anion Gap 29 mmol/L (4-12); Calcium 7.7 mg/dL (8.4-10.2); Carbon Dioxide 8 mmol/L (22-30); Chloride 99 mmol/L (98-107); Glucose 120 mg/dL (65-110); Potassium 3.8 mmol/L (3.4-5.0); Sodium 136 mmol/L (137-145)
[2025-08-30] MEDS: SODIUM CHLORIDE 0.9% IV 250 ML 30 ML IV CONT (13:10)
[2025-08-30 13:16] LABS: Estimated CRCL calculation 14 ml/min; Estimated Glomerular Filt Rate 9
[2025-08-30 13:19] LABS: Blood Urea Nitrogen 150 mg/dL (9-20)
[2025-08-30] MEDS: TUBING, BLOOD SET 1 EACH XX ×2 (13:27→15:10)
== END 2025-08-30 17:08 | disposition short-term general hospital (02) ==
PROVIDERS: Emergency Medicine; Registered Nurse; Emergency Provider Student in an Organized Health Care Education/Training Program; PCP Internal Medicine
DX: A41.9 Sepsis, unspecified organism (principal); N17.9 Acute kidney failure, unspecified; I13.0 Hypertensive heart and chronic kidney disease with heart failure and stage 1 through stage 4 chronic kidney disease, or unspecified chronic kidney disease; I50.9 Heart failure, unspecified; E11.22 Type 2 diabetes mellitus with diabetic chronic kidney disease; N18.30 Chronic kidney disease, stage 3 unspecified; D64.9 Anemia, unspecified; R74.01 Elevation of levels of liver transaminase levels; E03.9 Hypothyroidism, unspecified; N40.0 Benign prostatic hyperplasia without lower urinary tract symptoms; Z79.4 Long term (current) use of insulin; Z79.899 Other long term (current) drug therapy; Z79.01 Long term (current) use of anticoagulants; Z79.02 Long term (current) use of antithrombotics/antiplatelets; Z79.82 Long term (current) use of aspirin
CPT/HCPCS: 36415; 36430; 71045; 74176; 80048; 80053; 81003; 82077; 83605; 83880; 84439; 84443; 85014; 85018; 85025; 85610; 85730; 86850; 86900; 86901; 86923; 93005; 96361; 96365; 96367; 96375; 99285; J0696; J1836; J1938; J7030; J7050; P9016

== ENCOUNTER 2025-10-01 07:52 | Inpatient (IN) | payer MEDICARE, SELFPAY ==
[2025-10-01] VITALS (29 sets, daily range): BP systolic 72–105; BP diastolic 42–81; PULSE 70–105; RESP 14–32; TEMP 36.9–39.7; O2SAT 94–99
--- NOTE | ~2025-10-01 | XR_ITS ---
EXAMINATION: XR abdomen gastric tube insert, 10/05/2025 18:10 ARMOR OFFICER HISTORY: NG placement COMPARISON: No comparisons available. Technique: 3 view. Findings: Bowel gas pattern unremarkable. No obstruction. No free air. No abnormal calcifications No acute osseous abnormality. Nasogastric tube terminates in the mid to distal stomach. Impression: 1. No acute abnormality. Reviewed, dictated and finalized at location P. R OFFICER Impression: 1. No acute abnormality.
--- NOTE | ~2025-10-01 | CT_ITS ---
EXAMINATION: CT brain wo con DATE: 10/01/2025 13:32 INDICATION: Encephalopathy TECHNIQUE: Computed tomography (CT) of the head was performed without intravenous contrast. The dose-length product was 681.00 mGy-cm. COMPARISON: None FINDINGS: Slightly prominent subdural space along the right hemisphere may represent old subdural bleed. No acute hemorrhage or mass effect. Diffuse volume loss and chronic hypoattenuating white matter changes. Old right basal ganglia lacunar infarction. No large acute ischemic event. Calvarial structures appear intact. IMPRESSION: 1. No acute hemorrhage or large acute ischemic event. 2. Possible old right subdural hygroma. 3. Chronic appearing right-sided basal ganglia infarction. Reviewed, dictated and finalized at location A. ER ATTENDANT
--- NOTE | ~2025-10-01 | XR_ITS ---
EXAMINATION: XR chest port-a-cath/central COMPARISON: No comparisons available. HISTORY: INSERT NON- TUNNELED CATH FINDINGS: Moderate pulmonary venous congestion. Bilateral infiltrates and small effusion. No pneumothorax. Moderate cardiomegaly. Mediastinal and hilar contours are within normal limits. Bony thorax no acute abnormality. Miscellaneous: Left pacemaker. Left central line in the SVC. Impression: CHF. Superimposed probable bronchopneumonia Reviewed, dictated and finalized at location P. RCYCLE BUILDER Impression: CHF. Superimposed probable bronchopneumonia
--- NOTE | ~2025-10-01 | CT_ITS ---
EXAM/PROCEDURE: CT chest abdomen pelvis wo con HISTORY: Fevers, diarrhea COMPARISON: August 29, 2025 TECHNIQUE: Noncontrast enhanced CT of the chest abdomen and pelvis performed FINDINGS: 10 mm left apical nodule image 24 series 4. 1.3 cm nodule posterior right upper lobe image 32 series 4. 1.5 x 1.0 cm wedge-shaped soft tissue focus right lower lobe image 70 series 4. Heart is moderately enlarged with left subclavian transvenous pacemaking wires extending to the right heart. Right internal jugular central catheter with tip extending to the right atrium. Mild aneurysmal dilatation of the ascending thoracic aorta measures 4.4 cm. Central pulmonary arteries enlarged with main pulmonary artery measuring 4.4 cm. Extensive coronary stenting and/or calcification. Interval resolution of right-sided effusion. Patchy areas of groundglass opacification and several nodules noted on today's exam. No bulky lymphadenopathy identified on this noncontrast exam. Degenerative changes of the thoracic spine In the abdomen and pelvis, mildly distended gallbladder with no biliary ductal dilatation seen. No gross evidence of pancreatitis, hydroureteronephrosis, AAA or grossly inflamed appendix. Small fat-containing umbilical hernia. Mild wall thickening may be present in the urinary bladder. Moderate diverticular disease with no gross acute diverticulitis. No bulky mesenteric or retroperitoneal lymphadenopathy or masses. Stomach is unopacified and nondistended, with no obvious acute process. IMPRESSION: 1. Directed noncontrast exam demonstrates cardiomegaly with patchy areas of groundglass opacification which may represent vascular congestion and early decompensation. Enlarged pulmonary arteries may represent pulmonary arterial hypertension. Atypical inflammatory or infectious process could have a similar appearance. 2. Several lung nodules concerning for metastatic malignant process. Hematogenous infectious process could potentially have a similar appearance. 3. Mildly distended gallbladder but no biliary ductal dilatation seen. Correlate with right upper quadrant ultrasound for optimal evaluation. 4. Possible mild urinary bladder wall thickening. Correlate with urinalysis. 5. 4.4 cm ascending thoracic aortic aneurysm Reviewed, dictated and finalized at location A. UNT SERVICES ASSOCIATE IMPRESSION: 1. Directed noncontrast exam demonstrates cardiomegaly with patchy areas of margarita undglass opacification which may represent vascular congestion and early decomp ensation. Enlarged pulmonary arteries may represent pulmonary arterial hyperten casandra. Atypical inflammatory or infectious process could have a similar appearan ce. 2. Several lung nodules concerning for metastatic malignant process. Hematogeno us infectious process could potentially have a similar appearance. 3. Mildly distended gallbladder but no biliary ductal dilatation seen. Correlat e with right upper quadrant ultrasound for optimal evaluation. 4. Possible mild urinary bladder wall thickening. Correlate with urinalysis. 5. 4.4 cm ascending thoracic aortic aneurysm
--- NOTE | ~2025-10-01 | XR_ITS ---
EXAM/PROCEDURE: XR chest 2V HISTORY: Weakness COMPARISON: August 29, plain film and abdomen/pelvis CT TECHNIQUE: Two view(s) of the chest. FINDINGS: Motion on the lateral view and significant lordosis on the frontal view limits evaluation. LUNGS: Clear of acute processes. PLEURAL SPACES: Clear. No evidence of fluid or pneumothorax. Blunting at the left costophrenic angle on the frontal view relates to epicardial fat, as seen on the abdomen and pelvis CT of August 29. HEART/ MEDIASTINUM: Prominent/enlarged, at least in part related to the AP technique. SOFT TISSUES: No significant findings. BONES: No acute osseous abnormality. Dialysis catheter now entering from the right with its tip probably in the right atrium. Pacing device unchanged. IMPRESSION: No acute findings. Interval placement of a dialysis catheter Reviewed, dictated and finalized at location A. THAND REPORTER
--- NOTE | ~2025-10-01 | XR_ITS ---
EXAMINATION: XR fl guide central line place INDICATION: INSERT NON- TUNNELED catheter. COMPARISON: None TECHNIQUE: 4 fluoroscopic images of the chest were obtained during dual lumen catheter insertion. Fluoroscopy exposure time was 3 minutes 10 seconds. Air Kerma 50.842 mGy. DAP 9.7986 mGym2. FINDINGS/IMPRESSION: No radiologist was present or involved at the time of the procedure. Static images were submitted for interpretation. Images demonstrate placement of a guidewire entering from the left. Pacing device leads are seen. Fluoroscopic documentation of catheter insertion. Please refer to the operative note for complete procedural details. Reviewed, dictated and finalized at location A. TEGIC MARKETING MANAGER
--- NOTE | ~2025-10-01 | XR_ITS ---
EXAMINATION: XR chest 1V portable DATE: 10/02/2025 07:38 INDICATION: Sepsis TECHNIQUE: A single frontal view of the chest was obtained. COMPARISON: None. FINDINGS: Mildly enlarged heart shadow. Slight obscuration left lung base may represent small consolidation or atelectatic changes. Remaining lung peñaloza are clear. Right internal jugular dual port catheter with tip projecting over the cavoatrial junction, and left-sided pacemaking device and wires noted. The bones appear intact. No pneumothorax or subphrenic free air seen. IMPRESSION: 1. Possible small area of consolidation or atelectasis left lung base. Reviewed, dictated and finalized at location A. ST TRIMMER
--- NOTE | 2025-10-01 08:01 | ECG_ITS ---
Test Date: 2025-10-01 08:16:12 Measurements Intervals [place] Rate: 84 P: 79 WY: 328 QRS: 122 QRSD: 156 T: -4 QT: 411 QTc: 488 Interpretive Statements SINUS RHYTHM WITH FIRST DEGREE AV BLOCK RIGHT BUNDLE BRANCH BLOCK [120+ ms QRS DURATION, UPRIGHT V1, 40+ ms S IN I/aVL/V4/V5/V6] LEFT POSTERIOR FASCICULAR BLOCK [QRS AXIS > 109, INFERIOR Q] Compared to ECG 08/29/2025 20:28:53 First degree AV block now present Left posterior fascicular block now present Atrial-paced complex(es) or rhythm no longer present Electronically Signed On 10-01-2025 17:56:46 IT SERVICE TECHNICIAN by Mercedes Lee M.D.
--- NOTE | 2025-10-01 08:15 | ED.WEAKNESS ---
HPI - Weakness General Chief complaint: Weakness Stated complaint: weakness Time Seen by Provider: 10/01/25 07:54 History of Present Illness HPI Narrative: Pt has DM and CRF and a fib on eliquis presents with generalized weakness for 3 days. Pt missed dialysis Tuesday. Called dialysis today and told him to come to ER. Pt denies CP. Pt not eating well but drinking fluids and has had several episodes of diarrhea. says had fever of 100 three days ago but none now. Related Data Home Medications ?Medication ?Instructions ?Recorded ?Confirmed ?Last Taken ?Type atorvastatin 20 mg tablet 20 mg PO HS 06/30/23 10/01/25 Unknown History albuterol 90 mcg/actuation aerosol 90 mcg inhalation .q4hr PRN 02/14/25 10/01/25 Unknown History inhaler shortness of breath apixaban 5 mg tablet (Eliquis) 5 mg PO BID 02/14/25 10/01/25 Unknown History bumetanide 1 mg tablet 1 mg PO BID 02/14/25 10/01/25 Unknown History insulin glargine 100 unit/mL (3 25 unit subcut .q12hr 02/14/25 10/01/25 Unknown History mL) subcutaneous pen (Basaglar KwikPen U-100 Insulin) insulin lispro 100 unit/mL 10 unit subcut TIDWM 02/14/25 10/01/25 Unknown History subcutaneous pen (Humalog KwikPen (U-100) Insulin) metolazone 2.5 mg tablet 2.5 mg PO QMWF 02/14/25 10/01/25 Unknown History acetaminophen 325 mg tablet 650 mg PO Q4H PRN Pain Rated 5 Or 04/12/25 10/01/25 Unknown History Less clopidogrel 75 mg tablet 75 mg PO DAILY 04/12/25 10/01/25 Unknown History B complex 11-folic acid 1 mg-C 100 1 tablet PO DAILY 10/01/25 10/01/25 Unknown History mg-biotin 300 mcg-zinc 50 mg tablet (Dialyvite) acetaminophen 500 mg tablet 500 mg PO Q6H PRN fever or pain 10/01/25 10/01/25 Unknown History Allergies Allergy/AdvReac Type Severity Reaction Status Date / Time No Known Allergies Allergy Verified 10/01/25 11:39 Review of Systems Review of Systems: All systems reviewed & are unremarkable except as noted in HPI and below PMFSH Past Medical History Medical History Atrial fibrillation/flutter CKD (chronic kidney disease) Stage 3 Pressure ulcer of right foot 2021 BPH (benign prostatic hyperplasia) HTN (hypertension) Congestive heart failure Hypothyroidism Diabetes mellitus type 2 in obese Surgical History Surgical History S/P foot surgery, right 2021 Family History Family History Unknown Diabetes mellitus Social History Social History Social History: Smoking status: Never smoker Alcohol intake: never Substance use: never Substance use type: does not use Do You Feel Safe in your Home?: Yes Lack of Transportation: No Lack of Food: Never True Current Housing: I Have Housing Concerned About Future Housing: No Difficulty Paying Gas/Electric Bills: No Difficulty Paying for Meds: No Currently Unemployed: No Education: High School Diploma/GED Difficulty w/ Childcare or Family Care: No Living arrangements: with family Additional living arrangements comments: Gender identity (if verbalized by the patient): Male Spiritual care concerns: No Exam Const: General: no acute distress Nutritional Appearance: well nourished Orientation/consciousness: confusion (baseline) Limitations: no limitations Neck: Neck: normal visual inspection Chest: Chest palpation & inspection: normal inspection of the chest Resp: Effort & Inspection: normal respiratory effort Auscultation: crackles Cardio: Rhythm: abnormal rhythm GI: GI Palp: Yes Soft to palpation and No Tenderness to palpation present (GI) Auscultation: normal bowel sounds Skin: General skin exam: normal color Wounds: no wounds Neuro: General: patient oriented x3, moves all extremities, no meningeal signs and no focal motor deficits Speech: normal speech Extrem: General: normal to inspection and no clubbing, cyanosis or edema Psych: Mental Status: mental status grossly normal Affect: normal affect Attitude: cooperative Course Vital Signs Vital signs: Vital Signs Temperature 98.4 F 10/01/25 07:53 Pulse Rate 86 10/01/25 07:53 Respiratory Rate 14 10/01/25 07:53 Blood Pressure 98/81 L 10/01/25 07:53 Pulse Oximetry 99 10/01/25 07:53 Oxygen Delivery Room Air 10/01/25 07:53 Temperature 101.1 F H 10/01/25 17:00 Pulse Rate 76 10/01/25 17:00 Respiratory Rate 23 H 10/01/25 17:00 Blood Pressure 102/56 L 10/01/25 17:00 Pulse Oximetry 94 10/01/25 17:00 Oxygen Delivery Room Air 10/01/25 16:00 MDM - Weakness MDM Narrative Medical decision making narrative: ddx includes pneumonia, viral illness covid flu rsv among others. will check labs and cxr. cxr unremarkable. swabs neg. cr 8 but k ok. discussed with Dr Mccullough will dialyze later today. Discussed with Dr Vergara and agrees to admit. Lab Data Attestation: I reviewed the patient's lab results. 10/01/25 08:20 10/01/25 08:20 Labs: Lab Results 10/01/25 10/01/25 Range/Units 08:20 08:26 WBC 15.2 H (4.5-10.0) K/mm3 RBC 4.04 L (4.6-6.20) M/mm3 Hgb 11.0 L D (14.0-18.0) g/dL Hct 35.2 L (42.0-52.0) % MCV 87.1 (80-100) fl MCH 27.2 (26-34) pg MCHC 31.3 L (32-36) g/dl RDW 18.2 H (11.5-14.5) % Plt Count 124 L D (150-375) k/mm3 MPV 11.3 H (7.4-10.4) fl Immature Gran % (Auto) Not Reportable Neut % (Auto) Not Reportable Lymph % (Auto) Not Reportable Saline % (Auto) Not Reportable Eos % (Auto) Not Reportable Baso % (Auto) Not Reportable Lymph # (Auto) Not Reportable Saline # (Auto) Not Reportable Eos # (Auto) Not Reportable Baso # (Auto) Not Reportable Abs Immat Gran (auto) Not Reportable Absolute Neuts (auto) Not Reportable Absolute Nucleated RBC Not Reportable Total Counted 100 Neutrophils % (Manual) 89 H (46-73) % Band Neutrophils % 5 (0-6) % Lymphocytes % (Manual) 5 L (18-44) % Monocytes % (Manual) 1 L (3-9) % Nucleated RBC % Not Reportable Abs Neuts (Manual) 14.28 H (1.3-6.7) K/mm3 Abs Lymphs (Manual) 0.76 L (1.1-4.5) K/mm3 Abs Monocytes (Manual) 0.15 (0.1-0.90) K/mm3 Dohle Bodies Present Platelet Estimate Slightly decreased (Adequate) Giant Platelets Present Polychromasia 1+ Hypochromasia 1+ Anisocytosis 1+ [place] Cells 1+ Schistocytes None seen Sodium 132 L (137-145) mmol/L Potassium 4.2 (3.4-5.0) mmol/L Chloride 91 L (98-107) mmol/L Carbon Dioxide 20 L (22-30) mmol/L Anion Gap 21 H (4-12) mmol/L BUN 98 H D (9-20) mg/dL Creatinine 8.02 H (0.7-1.3) mg/dL Estim Creat Clear Calc 10 ml/min Estimated GFR 7 L (59 - ) Glucose 173 H (65-110) mg/dL Calcium 7.7 L (8.4-10.2) mg/dL Total Bilirubin 1.4 H (0.2-1.3) mg/dL AST 63 H (17-59) U/L ALT 35 (6-50) U/L Alkaline Phosphatase 120 (38-126) U/L Total Protein 7.9 (6.3-8.2) g/dL Albumin 3.7 (3.5-5.1) g/dL Influenza A (RT-PCR) Negative (Negative) Influenza B (RT-PCR) Negative (Negative) RSV (RT-PCR) Negative (Negative) SARS-CoV-2 RNA (RT-PCR) Negative (Negative) Discharge Plan Discharge Clinical Impression: Chronic renal disease, Generalized weakness Patient Disposition: Still a Patient Condition: Stable
[2025-10-01 08:33] LABS: Hematocrit 35.2 % (42.0-52.0); Hemoglobin 11.0 g/dL (14.0-18.0); Mean Corpuscular HGB Conc 31.3 g/dl (32-36); Mean Corpuscular Hemoglobin 27.2 pg (26-34); Mean Corpuscular Volume 87.1 fl (80-100); Platelet Count Result 124 k/mm3 (150-375); Red Blood Count 4.04 M/mm3 (4.6-6.20); White Blood Count 15.2 K/mm3 (4.5-10.0)
--- OUTSIDE RECORDS SUMMARY | 2025-10-01 08:45 | XMS_ITS | Clinical Summary ---
Author Organization 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 Active metoprolol tartrate (LOPRESSOR) 25 mg immediate release tablet Take 1 tablet (25 mg total) by mouth 2 (two) times a day Activ e tamsulosin (FLOMAX) 0.4 mg extended release capsule Take 1 capsule (0.4 mg total) by mouth daily before breakfast Active apixaban (ELIQUIS) 5 mg tablet Take 1 tablet (5 mg total) by mouth 2 (two) times a day Active atorvastatin (LIPITOR) 20 mg tablet Take 1 tablet (20 mg total) by mouth nightly 025 Active Additional Information Patient taking differently:20 mg oralDaily before breakfast, Indications: hyperlipidemia, Informant: Spouse/Significant Other, Reported on 08/30/2025 famotidine (PEPCID) 20 mg tablet Take 1 tablet (20 mg total) by mouth daily 30 tablet 025 Active Additional Information Patient taking differently:20 mg oralDaily before breakfast, Indications: gastroesophageal reflux disease, Informant: Self, Reported on 08/30/2025 polyethylene glycol (MIRALAX) 17 gram/dose bulk powder Take 17 g by mouth daily Active clopidogreL (PLAVIX) 75 mg tablet Take 1 tablet (75 mg total) by mouth daily 30 tablet Active Additional Information Patient taking differently:75 mg oralDaily before breakfast, Indications: to keep from building up blood clots, Informant: Spouse/Significant Other, Reported on 08/30/2025 acetaminophen 500 mg capsule Take 2 capsules (1,000 mg total) by mouth every 6 (six) hours as needed for pain 30 tablet Active insulin glargine 100 unit/mL vial for injection Inject 25 Units under the skin 2 (two) times a day Does not take often due to low blood sugars Active albuterol HFA (PROVENTIL HFA,VENTOLIN HFA,PROAIR HFA) 90 mcg/actuation inhaler Inhale 2 puffs every 4 (four) hours as needed for wheezing or shortness of breath Activ e glucagon 1 mg kit Inject 1 mL (1 mg total) into the muscle as instructed every 30 (thirty) minutes as needed (blood glucose less than 70 mg/dL AND no IV access AND unable to take PO glucose/juice.) 30 kit Active insulin lispro (HumaLOG, ADMELOG) 100 unit/mL pen for injection Inject 2-10 units under the skin 3 (three) times a day with meals. Blood glucose mg/dL 150-199: 2 units, 200-249: 4 units, 250-299: 6 units, 300-349: 8 units, 350 or greater: 10 units. Notify provider for blood glucose greater than 299 mg/dL. Refer to After Visit Summary for Sliding Scale Insulin Instructions. Active bumetanide (BUMEX) 1 mg tablet Take 1 tablet (1 mg total) by mouth 2 (two) times a day This is pt's home med 2024 Discontinued(S top Taking at Discharge) metOLazone (ZAROXOLYN) 2.5 mg tabletIndicat ions:unknown by spouse Take 1 tablet (2.5 mg total) by mouth 3 (three) times a week Mon, Wed, Fri 025 2024 Discontinued(S top Taking at Discharge) insulin lispro (HumaLOG, ADMELOG) 100 unit/mL vial for injection Inject 10 Units under the skin 3 (three) times a day before meals 2024 Discontinued B complex 61-[id number]-bi ot-zinc (Dialyvite) [id number] no-zs-hbh-mg tablet Take 1 tablet by mouth once for 1 dose 30 tablet 1 025 2024 Active Problems Problem Noted Date Diagnosed Date Acute tubular necrosis 09/02/2025 Assessment & Plan (09/05/2025 11:27 AM CDT): Altered mental status most likely from uremia Blair catheter placed Nephrology consulted Continue ceftriaxone Hold diuretics Daily BMP UA positive for RBC, WBC, hyaline cast and some bacteria Q4H vitals Q4H neuro checks Palliative care consult Central line placed on 09/01 inpatient hemodialysis. Two sessions of hemodialysis done on 09/01 and 09/02 No dialysis today Dialysis tomorrow Tunneled catheter placement tomorrow Patient will need outpatient dialysis for ESRD, as per nephrology Assessment & Plan (09/04/2025 10:45 AM CDT): Creatinine 6.9 (baseline 2.7), BUN 148 from [facility] most likely due to poor oral intake and hypovolemia. Currently creatinine is 3.86 and BUN 85. AG 30 with CO2 16 Altered mental status most likely from uremia Blair catheter placed Nephrology consulted Continue ceftriaxone Discontinue IV Sodium bicarb and fluid resuscitation Hold diuretics Daily BMP UA positive for RBC, WBC, hyaline cast and some bacteria Lactate, BMP ordered Repeat BMP at 12 PM t/d Q4H vitals Q4H neuro checks Palliative care consult Central line placed on 09/01 inpatient hemodialysis. Two sessions of hemodialysis done on 09/01 and 09/02 Hold dialysis per Nephrology Will decide for ESRD tomorrow as per Nephrology Assessment & Plan (09/03/2025 11:50 AM CDT): Creatinine 6.9 (baseline 2.7), BUN 148 from [facility] most likely due to poor oral intake and hypovolemia. Currently creatinine is 3.86 and BUN 85. AG 30 with CO2 16 Altered mental status most likely from uremia Blair catheter placed Nephrology consulted Continue ceftriaxone Discontinue IV Sodium bicarb and fluid resuscitation Hold diuretics Daily BMP UA positive for RBC, WBC, hyaline cast and some bacteria Lactate, BMP ordered Repeat BMP at 12 PM t/d Q4H vitals Q4H neuro checks Palliative care consult Central line placed on 09/01 inpatient hemodialysis. Two sessions of hemodialysis done on 09/01 and 09/02 No Dialysis planned today per Nephrology Assessment & Plan (09/02/2025 8:39 AM CDT): Creatinine 6.9 (baseline 2.7), BUN 148 from [facility] most likely due to poor oral intake and hypovolemia. Currently creatinine is 3.86 and BUN 85. AG 30 with CO2 16 Altered mental status most likely from uremia Blair catheter placed Nephrology consulted Continue ceftriaxone Discontinue IV Sodium bicarb and fluid resuscitation Hold diuretics Daily BMP UA positive for RBC, WBC, hyaline cast and some bacteria Lactate, BMP ordered Repeat BMP at 12 PM t/d Q4H vitals Q4H neuro checks Palliative care consult Central line placed on 09/01 inpatient hemodialysis. UF 1300 mL Dialysis planned today per Nephrology Moderate protein-calorie malnutrition 09/02/2025 Hypokalemia 09/01/2025 Assessment & Plan (09/02/2025 10:49 AM CDT): K 2.8 Replace KCl PO 40 meq Resolved Assessment & Plan (09/01/2025 10:32 AM CDT): K 2.8 Replace KCl PO 40 meq Anemia due to chronic kidney disease 08/30/2025 Assessment & Plan (09/10/2025 12:55 PM CDT): Epo per nephrology GI consulted EGD unremarkable Outpatient colonoscopy once inpatient issues have resolved, as per GI Iron panel and ferritin suggests iron deficient state IV iron replaced Assessment & Plan (09/09/2025 2:05 PM CDT): Hemoglobin 5.1 as outside hospital status post 4 units PRBC Hemoglobin improved to 8.5 after transfusion Underwent EGD, unremarkable Anemia related to CKD Received IV iron Plavix and Eliquis resumed, will continue Assessment & Plan (09/08/2025 10:57 AM CDT): Hgb 5.1 at outside hospital S/P 4 units pRBC hemoglobin reached to 8.5 after transfusion, hgb now 7.7 UA positive for RBC CT negative for bleed PPI 40 mg IV BID GI consulted EGD unremarkable Outpatient colonoscopy once inpatient issues have resolved, as per GI Iron panel and ferritin suggests iron deficient state IV iron replaced Assessment & Plan (09/07/2025 10:47 AM CDT): Hgb 5.1 at outside hospital S/P 4 units pRBC hemoglobin reached to 8.5 after transfusion, hgb now 7.7 UA positive for RBC CT negative for bleed PPI 40 mg IV BID GI consulted EGD unremarkable Outpatient colonoscopy once inpatient issues have resolved, as per GI Iron panel and ferritin suggests iron deficient state IV iron replaced Assessment & Plan (09/06/2025 11:34 AM CDT): Hemoglobin 5.1 as outside hospital status post 4 units PRBC Hemoglobin improved to 8.5 after transfusion Underwent EGD, unremarkable Anemia related to CKD Received IV iron Okay to resume Plavix and Eliquis once TDC placed Assessment & Plan (09/05/2025 11:27 AM CDT): Hgb 5.1 at outside hospital S/P 4 units pRBC hemoglobin reached to 8.5 after transfusion, hgb now 7.7 UA positive for RBC CT negative for bleed Hold Eliquis, plavix PPI 40 mg IV BID GI consulted EGD unremarkable Outpatient colonoscopy once inpatient issues have resolved, as per GI Iron panel and ferritin suggests iron deficient state Replace IV arron gluconate 250 mg daily for four days, day 3 Assessment & Plan (09/04/2025 10:45 AM CDT): Hgb 5.1 at outside hospital S/P 4 units pRBC hemoglobin reached to 8.5 after transfusion, hgb now 7.7 UA positive for RBC CT negative for bleed Hold Eliquis, plavix PPI 40 mg IV BID GI consulted EGD unremarkable Outpatient colonoscopy once inpatient issues have resolved, as per GI Iron panel and ferritin suggests iron deficient state Replace IV arron gluconate 250 mg daily for four days, day 3 Assessment & Plan (09/03/2025 11:50 AM CDT): Hgb 5.1 at [facility] S/P 4 units pRBC hemoglobin reached to 8.5 after transfusion, hgb now 7.7 UA positive for RBC CT negative for bleed Hold Eliquis, plavix PPI 40 mg IV BID GI consulted EGD today Iron panel and ferritin suggests iron deficient state Replace IV arron gluconate 250 mg daily for four days Assessment & Plan (09/02/2025 10:49 AM CDT): Hgb 5.1 at [facility] S/P 4 units pRBC hemoglobin reached to 8.5 after transfusion, hgb now 7.7 UA positive for RBC CT negative for bleed Hold Eliquis, plavix PPI 40 mg IV BID GI consulted If labs and mental status improve, he maybe a candidate for EGD as per GI Iron panel and ferritin suggests iron deficient state Replace IV arron gluconate 250 mg daily for four days Assessment & Plan (09/01/2025 10:32 AM CDT): Hgb 5.1 at [facility] S/P 4 units pRBC, hgb now 8.3 UA positive for RBC CT negative for bleed Hold Eliquis, plavix PPI 40 mg IV BID GI consulted If labs and mental status improve, he maybe a candidate for EGD as per GI Iron panel and ferritin Assessment & Plan (08/31/2025 12:57 PM CDT): Hgb 5.1 at outside [facility] S/P 4 units pRBC, hgb now 8.4 CT negative for bleed Hold Eliquis, plavix PPI 40 mg IV BID GI consulted If labs and mental status improve, he maybe a candidate for EGD as per GI Assessment & Plan (08/30/2025 11:40 PM CDT): Hgb 5.1 at outside hospital. S/P 4 units pRBC, hgb now 8.6 -CT negative for bleed -NPO at midnight -Hold Eliquis, plavix -PPI 40 mg IV BID -GI consult Hyperlipidemia, unspecified 08/30/2025 Assessment & Plan (09/09/2025 2:05 PM CDT): Continue statins Assessment & Plan (09/06/2025 11:34 AM CDT): Continue statins Dry gangrene 07/16/2025 Gangrene 07/05/2025 Assessment & [...] sees only vague shapes and light. 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 Further GDMT titration per outpatient doctor/hot man. Assessment & Plan (09/08/2025 10:57 AM CDT): S/p pacemaker CXR showed mildly worsening aeration with increasing patchy opacification L>R lung base, favor combination of atelectasis and small to moderate left pleural effusion. Mild pulmonary edema. Echo in 02/12 showed EF 51% G1DD, systolic dysfunction Continue home metoprolol, hold bumex Assessment & Plan (09/07/2025 8:44 AM CDT): S/p pacemaker CXR showed mildly worsening aeration with increasing patchy opacification L>R lung base, favor combination of atelectasis and small to moderate left pleural effusion. Mild pulmonary edema. Echo in 02/12 showed EF 51% G1DD, systolic dysfunction Continue home metoprolol, hold bumex Assessment & Plan (09/05/2025 11:27 AM CDT): S/p pacemaker CXR showed mildly worsening aeration with increasing patchy opacification L>R lung base, favor combination of atelectasis and small to moderate left pleural effusion. Mild pulmonary edema. BNP >30,000 in the setting of acute renal renal failure in CKD Echo in 02/12 showed EF 51% G1DD, systolic dysfunction Continue home metoprolol, hold bumex Assessment & Plan (09/04/2025 10:45 AM CDT): S/p pacemaker CXR showed mildly worsening aeration with increasing patchy opacification L>R lung base, favor combination of atelectasis and small to moderate left pleural effusion. Mild pulmonary edema. BNP >30,000 in the setting of acute renal renal failure in CKD Echo in 02/12 showed EF 51% G1DD, systolic dysfunction Continue home metoprolol, hold bumex Assessment & Plan (09/03/2025 11:50 AM CDT): S/p pacemaker CXR showed mildly worsening aeration with increasing patchy opacification L>R lung base, favor combination of atelectasis and small to moderate left pleural effusion. Mild pulmonary edema. BNP >30,000 in the setting of acute renal renal failure in CKD Echo in 02/12 showed EF 51% G1DD, systolic dysfunction Continue home metoprolol, hold bumex Assessment & Plan (09/02/2025 8:39 AM CDT): S/p pacemaker CXR showed mildly worsening aeration with increasing patchy opacification L>R lung base, favor combination of atelectasis and small to moderate left pleural effusion. Mild pulmonary edema. BNP >30,000 in the setting of acute renal renal failure in CKD Echo in 02/12 showed EF 51% G1DD, systolic dysfunction Continue home metoprolol, hold bumex Assessment & Plan (09/01/2025 8:58 AM CDT): S/p pacemaker CXR showed mildly worsening aeration with increasing patchy opacification L>R lung base, favor combination of atelectasis and small to moderate left pleural effusion. Mild pulmonary edema. BNP >30,000 in the setting of acute renal renal failure in CKD Echo in 02/12 showed EF 51% G1DD, systolic dysfunction Continue home metoprolol, hold bumex Assessment & Plan (08/31/2025 12:57 PM CDT): S/p pacemaker CXR showed mildly worsening aeration with increasing patchy opacification L>R lung base, favor combination of atelectasis and small to moderate left pleural effusion. Mild pulmonary edema. BNP >30,000 in the setting of acute renal renal failure in CKD Echo in 02/12 showed EF 51% G1DD, systolic dysfunction Continue home metoprolol, hold bumex Assessment & Plan (08/30/2025 11:40 PM CDT): BNP >30,000 in the setting of acute renal renal failure in CKD -Continue home metoprolol, hold bumex Assessment & Plan (07/16/2025 9:21 AM CDT): [...] mellitus, type 2 02/15/2025 Assessment & Plan (09/10/2025 12:55 PM CDT): On insulin Assessment & Plan (09/09/2025 2:05 PM CDT): Normal glycemic, will continue sliding scale insulin Assessment & Plan (09/08/2025 10:57 AM CDT): On insulin Assessment & Plan (09/07/2025 8:44 AM CDT): On insulin Assessment & Plan (09/06/2025 11:34 AM CDT): Normal glycemic, will continue insulin Assessment & Plan (09/05/2025 11:27 AM CDT): On insulin Assessment & Plan (09/04/2025 10:45 AM CDT): On insulin Assessment & Plan (09/03/2025 11:50 AM CDT): On insulin Assessment & Plan (09/02/2025 8:39 AM CDT): On insulin Assessment & Plan (09/01/2025 8:58 AM CDT): On insulin Assessment & Plan (08/31/2025 12:57 PM CDT): On insulin Assessment & Plan (08/30/2025 10:18 PM CDT): Last A1C- 6.2 -SSI Assessment & Plan (07/16/2025 9:18 AM CDT): [...] BG results -Consistent carb diet when eating PVD (peripheral vascular disease) 02/15/2025 Assessment & Plan (09/10/2025 12:55 PM CDT): B/l wounds on toes, heels Erythema on back sacral region S/p amputation of left toes, bed and wheel chair bound since amputation of toes in 07/15 Dry gangrene in rt toes Wound care consulted, recommends offloading, betadine paint to scabs, EPC to gluteal cleft, interdry to pannus Assessment & Plan (09/09/2025 2:05 PM CDT): Bilateral wounds on toes and heels status post amputation of left toes, bed and wheelchair-bound since amputation of toes in 07/15 Wound Care on board Assessment & Plan (09/08/2025 10:57 AM CDT): B/l wounds on toes, heels Erythema on back sacral region S/p amputation of left toes, bed and wheel chair bound since amputation of toes in 07/15 Dry gangrene in rt toes Wound care consulted, recommends offloading, betadine paint to scabs, EPC to gluteal cleft, interdry to pannus Assessment & Plan (09/07/2025 8:44 AM CDT): B/l wounds on toes, heels Erythema on back sacral region S/p amputation of left toes, bed and wheel chair bound since amputation of toes in 07/15 Dry gangrene in rt toes Wound care consulted, recommends offloading, betadine paint to scabs, EPC to gluteal cleft, interdry to pannus Assessment & Plan (09/06/2025 11:34 AM CDT): Bilateral wounds on toes and heels status post amputation of left toes, bed and wheelchair-bound since amputation of toes in 07/15 Wound Care on board Assessment & Plan (09/05/2025 11:27 AM CDT): B/l wounds on toes, heels Erythema on back sacral region S/p amputation of left toes, bed and wheel chair bound since amputation of toes in 07/15 Dry gangrene in rt toes Wound care consulted, recommends offloading, betadine paint to scabs, EPC to gluteal cleft, interdry to pannus Assessment & Plan (09/04/2025 10:45 AM CDT): B/l wounds on toes, heels Erythema on back sacral region S/p amputation of left toes, bed and wheel chair bound since amputation of toes in 07/15 Dry gangrene in rt toes Wound care consulted, recommends offloading, betadine paint to scabs, EPC to gluteal cleft, interdry to pannus Assessment & Plan (09/03/2025 11:50 AM CDT): B/l wounds on toes, heels Erythema on back sacral region S/p amputation of left toes, bed and wheel chair bound since amputation of toes in 07/15 Dry gangrene in rt toes Wound care consulted, recommends offloading, betadine paint to scabs, EPC to gluteal cleft, interdry to pannus Assessment & Plan (09/02/2025 10:49 AM CDT): B/l wounds on toes, heels Erythema on back sacral region S/p amputation of left toes, bed and wheel chair bound since amputation of toes in 07/15 Dry gangrene in rt toes Wound care consulted, recommends offloading, betadine paint to scabs, EPC to gluteal cleft, interdry to pannus Assessment & Plan (09/01/2025 8:58 AM CDT): B/l wounds on toes, heels Erythema on back sacral region S/p amputation of left toes, bed and wheel chair bound since amputation of toes in 07/15 Dry gangrene in rt toes Wound care consulted Assessment & Plan (08/31/2025 12:57 PM CDT): B/l wounds on toes, heels Erythema on back sacral region S/p amputation of left toes, bed and wheel chair bound since amputation of toes in 07/15 Dry gangrene in rt toes Wound care consulted Assessment & Plan (07/16/2025 9:15 AM CDT): [...] eliquis 02/28 - Discharge planning for placement Hypothyroidism, unspecified 02/15/2025 Assessment & Plan (09/10/2025 12:55 PM CDT): Continue home levothyroxine Assessment & Plan (09/09/2025 2:05 PM CDT): Continue levothyroxine Assessment & Plan (09/08/2025 10:57 AM CDT): Continue home levothyroxine Assessment & Plan (09/07/2025 8:44 AM CDT): Continue home levothyroxine Assessment & Plan (09/06/2025 11:34 AM CDT): Continue home levothyroxine Assessment & Plan (09/05/2025 11:27 AM CDT): Continue home levothyroxine Assessment & Plan (09/04/2025 10:45 AM CDT): Continue home levothyroxine Assessment & Plan (09/03/2025 11:50 AM CDT): Continue home levothyroxine Assessment & Plan (09/02/2025 8:39 AM CDT): Continue home levothyroxine Assessment & Plan (09/01/2025 8:58 AM CDT): Continue home levothyroxine Assessment & Plan (08/31/2025 12:57 PM CDT): Continue home levothyroxine Assessment & Plan (08/30/2025 10:18 PM CDT): -Continue home levothyroxine Assessment & Plan (02/25/2025 6:50 AM CDT): [...] Plan (02/27/2025 7:45 AM CDT): Presents From [facility] with multiple wounds to feet [...] to air. Do NOT use any other History of anemia due to CKD 02/15/2025 Assessment & Plan (09/08/2025 10:57 AM CDT): Altered mental status most likely from uremia Blair catheter placed Nephrology consulted Hold diuretics Daily BMP UA positive for RBC, WBC, hyaline cast and some bacteria Q4H vitals Q4H neuro checks Palliative care consult Central line placed on 09/01 inpatient hemodialysis. Three sessions of hemodialysis done during the hospital stay No Dialysis t/d Tunneled catheter placed on 09/07 Patient will need outpatient dialysis for ESRD, as per nephrology, social work on board for outpatient hemodialysis set up Assessment & Plan (09/07/2025 10:47 AM CDT): Altered mental status most likely from uremia Blair catheter placed Nephrology consulted Hold diuretics Daily BMP UA positive for RBC, WBC, hyaline cast and some bacteria Q4H vitals Q4H neuro checks Palliative care consult Central line placed on 09/01 inpatient hemodialysis. Two sessions of hemodialysis done on 09/01 and 09/02 Dialysis t/d Tunneled catheter placed on 09/07 Patient will need outpatient dialysis for ESRD, as per nephrology, social work on board for outpatient hemodialysis set up Assessment & Plan (09/05/2025 11:27 AM CDT): Altered mental status most likely from uremia Blair catheter placed Nephrology consulted Continue ceftriaxone Hold diuretics Daily BMP UA positive for RBC, WBC, hyaline cast and some bacteria Q4H vitals Q4H neuro checks Palliative care consult Central line placed on 09/01 inpatient hemodialysis. Two sessions of hemodialysis done on 09/01 and 09/02 No dialysis today Dialysis tomorrow Tunneled catheter placement tomorrow Patient will need outpatient dialysis for ESRD, as per nephrology Assessment & Plan (09/04/2025 10:45 AM CDT): Creatinine 6.9 (baseline 2.7), BUN 148 from [facility] most likely due to poor oral intake and hypovolemia. Currently creatinine is 3.86 and BUN 85. AG 30 with CO2 16 Altered mental status most likely from uremia Blair catheter placed Nephrology consulted Continue ceftriaxone Discontinue IV Sodium bicarb and fluid resuscitation Hold diuretics Daily BMP UA positive for RBC, WBC, hyaline cast and some bacteria Lactate, BMP ordered Repeat BMP at 12 PM t/d Q4H vitals Q4H neuro checks Palliative care consult Central line placed on 09/01 inpatient hemodialysis. Two sessions of hemodialysis done on 09/01 and 09/02 Hold dialysis per Nephrology Will decide for ESRD tomorrow as per Nephrology Assessment & Plan (09/03/2025 11:50 AM CDT): Creatinine 6.9 (baseline 2.7), BUN 148 from [facility] most likely due to poor oral intake and hypovolemia. Currently creatinine is 3.86 and BUN 85. AG 30 with CO2 16 Altered mental status most likely from uremia Blair catheter placed Nephrology consulted Continue ceftriaxone Discontinue IV Sodium bicarb and fluid resuscitation Hold diuretics Daily BMP UA positive for RBC, WBC, hyaline cast and some bacteria Lactate, BMP ordered Repeat BMP at 12 PM t/d Q4H vitals Q4H neuro checks Palliative care consult Central line placed on 09/01 inpatient hemodialysis. Two sessions of hemodialysis done on 09/01 and 09/02 No Dialysis planned today per Nephrology Assessment & Plan (09/02/2025 8:39 AM CDT): Creatinine 6.9 (baseline 2.7), BUN 148 from [facility] most likely due to poor oral intake and hypovolemia. Currently creatinine is 3.86 and BUN 85. AG 30 with CO2 16 Altered mental status most likely from uremia Blair catheter placed Nephrology consulted Continue ceftriaxone Discontinue IV Sodium bicarb and fluid resuscitation Hold diuretics Daily BMP UA positive for RBC, WBC, hyaline cast and some bacteria Lactate, BMP ordered Repeat BMP at 12 PM t/d Q4H vitals Q4H neuro checks Palliative care consult Central line placed on 09/01 inpatient hemodialysis. UF 1300 mL Dialysis planned today per Nephrology Assessment & Plan (09/01/2025 10:32 AM CDT): Creatinine 6.9 (baseline 2.7), BUN 148 from [facility] most likely due to poor oral intake and hypovolemia. Currently creatinine is 6.02 and BUN 140. eGFR <9 AG 30 with CO2 16 Altered mental status most likely from uremia Blair catheter placed Nephrology consulted Continue ceftriaxone Discontinue IV Sodium bicarb and fluid resuscitation Hold diuretics Daily BMP UA positive for RBC, WBC, hyaline cast and some bacteria Lactate, BMP ordered Repeat BMP at 12 PM t/d Q4H vitals Q4H neuro checks Palliative care consult Dialysis planned by alignment technician Assessment & Plan (08/31/2025 12:57 PM CDT): Creatinine 6.9 (baseline 2.7), BUN 148 from [facility] most likely due to poor oral intake and hypovolemia. Currently creatinine is 6.2 and BUN 140. eGFR <9 AG 30 with CO2 16 Altered mental status most likely from uremia Blair catheter placed Nephrology consulted Continue ceftriaxone Continue IV Sodium bicarb and fluid resuscitation Hold diuretics Follow BMP UA ordered Lactate, BMP ordered Repeat BMP at 12 PM t/d Q4H vitals Q4H neuro checks Assessment & Plan (08/30/2025 11:40 PM CDT): Creatinine 6.94 (baseline 2.7), BUN 148 from OHS most likely due to poor oral intake and hypovolemia. Currently creatinine is 5.88 and BUN 126. GLORIA improving. Altered mental status most likely from uremia Blair catheter placed -Nephrology consult -IV Sodium bicarb -Follow electrolytes -Hold diuretics Assessment & Plan (07/16/2025 9:21 AM CDT): [...] nephrotoxins Atrial fibrillation 02/15/2025 Assessment & Plan (09/10/2025 12:55 PM CDT): Continue Eliquis and Plavix Assessment & Plan (09/09/2025 2:05 PM CDT): Continue Plavix Continue telemetry Assessment & Plan (09/08/2025 10:57 AM CDT): Continue Eliquis and Plavix Telemetry Assessment & Plan (09/07/2025 10:47 AM CDT): Continue Eliquis and Plavix Telemetry Assessment & Plan (09/06/2025 11:34 AM CDT): Continue to hold Eliquis for TDC placement Continue telemetry Assessment & Plan (09/05/2025 11:27 AM CDT): Hold Eliquis Telemetry Assessment & Plan (09/04/2025 10:45 AM CDT): Hold Eliquis Telemetry Assessment & Plan (09/03/2025 11:50 AM CDT): Hold Eliquis Telemetry Assessment & Plan (09/02/2025 8:39 AM CDT): Hold Eliquis Telemetry Assessment & Plan (09/01/2025 8:58 AM CDT): Hold Eliquis Telemetry Assessment & Plan (08/31/2025 12:57 PM CDT): Hold Eliquis Telemetry Assessment & Plan (08/30/2025 10:18 PM CDT): Hold Eliquis Assessment & Plan (07/17/2025 10:39 AM CDT): [...] chronic kidney failure 02/15/2025 Assessment & Plan (09/10/2025 12:55 PM CDT): Altered mental status most likely from uremia - now improved Nephrology following Tunneled catheter placed on 09/07 Patient will need outpatient dialysis for ESRD, as per nephrology, social work on board for outpatient hemodialysis set up Assessment & Plan (09/09/2025 2:05 PM CDT): High anion gap metabolic acidosis ESRD Uremic encephalopathy Blair catheter in place Patient on hemodialysis dependent now TDC placed on 07/07 Continue to hold diuretics Repeat BMP tomorrow, checked today transit survey worker on board for outpatient hemodialysis setup Assessment & Plan (09/08/2025 10:57 AM CDT): Altered mental status most likely from uremia Blair catheter placed Nephrology consulted Hold diuretics Daily BMP UA positive for RBC, WBC, hyaline cast and some bacteria Q4H vitals Q4H neuro checks Palliative care consult Central line placed on 09/01 inpatient hemodialysis. Three sessions of hemodialysis done during the hospital stay No Dialysis t/d Tunneled catheter placed on 09/07 Patient will need outpatient dialysis for ESRD, as per nephrology, social work on board for outpatient hemodialysis set up Assessment & Plan (09/07/2025 10:47 AM CDT): Altered mental status most likely from uremia Blair catheter placed Nephrology consulted Hold diuretics Daily BMP UA positive for RBC, WBC, hyaline cast and some bacteria Q4H vitals Q4H neuro checks Palliative care consult Central line placed on 09/01 inpatient hemodialysis. Two sessions of hemodialysis done on 09/01 and 09/02 Dialysis t/d Tunneled catheter placed on 09/07 Patient will need outpatient dialysis for ESRD, as per nephrology, social work on board for outpatient hemodialysis set up Assessment & Plan (09/06/2025 11:34 AM CDT): High anion gap metabolic acidosis Uremic encephalopathy Blair catheter in place Patient on hemodialysis dependent now Plan for TDC placement today Continue to hold diuretics BMP checked today, repeat tomorrow transit survey worker on board for outpatient hemodialysis setup Assessment & Plan (09/05/2025 11:27 AM CDT): Altered mental status most likely from uremia Blair catheter placed Nephrology consulted Continue ceftriaxone Hold diuretics Daily BMP UA positive for RBC, WBC, hyaline cast and some bacteria Q4H vitals Q4H neuro checks Palliative care consult Central line placed on 09/01 inpatient hemodialysis. Two sessions of hemodialysis done on 09/01 and 09/02 No dialysis today Dialysis tomorrow Tunneled catheter placement tomorrow Patient will need outpatient dialysis for ESRD, as per nephrology Assessment & Plan (09/04/2025 10:45 AM CDT): Creatinine 6.9 (baseline 2.7), BUN 148 from OHS most likely due to poor oral intake and hypovolemia. Currently creatinine is 3.86 and BUN 85. AG 30 with CO2 16 Altered mental status most likely from uremia Blair catheter placed Nephrology consulted Continue ceftriaxone Discontinue IV Sodium bicarb and fluid resuscitation Hold diuretics Daily BMP UA positive for RBC, WBC, hyaline cast and some bacteria Lactate, BMP ordered Repeat BMP at 12 PM t/d Q4H vitals Q4H neuro checks Palliative care consult Central line placed on 09/01 inpatient hemodialysis. Two sessions of hemodialysis done on 09/01 and 09/02 Hold dialysis per Nephrology Will decide for ESRD tomorrow as per Nephrology Assessment & Plan (09/03/2025 11:50 AM CDT): Creatinine 6.9 (baseline 2.7), BUN 148 from OHS most likely due to poor oral intake and hypovolemia. Currently creatinine is 3.86 and BUN 85. AG 30 with CO2 16 Altered mental status most likely from uremia Blair catheter placed Nephrology consulted Continue ceftriaxone Discontinue IV Sodium bicarb and fluid resuscitation Hold diuretics Daily BMP UA positive for RBC, WBC, hyaline cast and some bacteria Lactate, BMP ordered Repeat BMP at 12 PM t/d Q4H vitals Q4H neuro checks Palliative care consult Central line placed on 09/01 inpatient hemodialysis. Two sessions of hemodialysis done on 09/01 and 09/02 No Dialysis planned today per Nephrology Assessment & Plan (09/02/2025 8:39 AM CDT): Creatinine 6.9 (baseline 2.7), BUN 148 from OHS most likely due to poor oral intake and hypovolemia. Currently creatinine is 3.86 and BUN 85. AG 30 with CO2 16 Altered mental status most likely from uremia Blair catheter placed Nephrology consulted Continue ceftriaxone Discontinue IV Sodium bicarb and fluid resuscitation Hold diuretics Daily BMP UA positive for RBC, WBC, hyaline cast and some bacteria Lactate, BMP ordered Repeat BMP at 12 PM t/d Q4H vitals Q4H neuro checks Palliative care consult Central line placed on 09/01 inpatient hemodialysis. UF 1300 mL Dialysis planned today per Nephrology Assessment & Plan (09/01/2025 10:32 AM CDT): Creatinine 6.9 (baseline 2.7), BUN 148 from OHS most likely due to poor oral intake and hypovolemia. Currently creatinine is 6.02 and BUN 140. eGFR <9 AG 30 with CO2 16 Altered mental status most likely from uremia Blair catheter placed Nephrology consulted Continue ceftriaxone Discontinue IV Sodium bicarb and fluid resuscitation Hold diuretics Daily BMP UA positive for RBC, WBC, hyaline cast and some bacteria Lactate, BMP ordered Repeat BMP at 12 PM t/d Q4H vitals Q4H neuro checks Palliative care consult Dialysis planned by alignment technician Assessment & Plan (08/31/2025 12:57 PM CDT): Creatinine 6.9 (baseline 2.7), BUN 148 from OHS most likely due to poor oral intake and hypovolemia. Currently creatinine is 6.2 and BUN 140. eGFR <9 AG 30 with CO2 16 Altered mental status most likely from uremia Blair catheter placed Nephrology consulted Continue ceftriaxone Continue IV Sodium bicarb and fluid resuscitation Hold diuretics Follow BMP UA ordered Lactate, BMP ordered Repeat BMP at 12 PM t/d Q4H vitals Q4H neuro checks Assessment & Plan (08/30/2025 11:40 PM CDT): Creatinine 6.94 (baseline 2.7), BUN 148 from OHS most likely due to poor oral intake and hypovolemia. Currently creatinine is 5.88 and BUN 126. GLORIA improving. Altered mental status most likely from uremia Blair catheter placed -Nephrology consult -IV Sodium bicarb -Follow electrolytes -Hold diuretics Assessment & Plan (03/01/2025 6:53 PM CDT): [...] Problem Noted Date Diagnosed Date Resolved Date Acute blood loss anemia 09/05/202508/21 Acute metabolic encephalopathy 08/31/2025 09/10/2025 Assessment & Plan (09/10/2025 12:55 PM CDT): Altered mental status most likely from uremia - now improved Nephrology following Tunneled catheter placed on 09/07 Patient will need outpatient dialysis for ESRD, as per nephrology, social work on board for outpatient hemodialysis set up Assessment & Plan (09/09/2025 2:05 PM CDT): High anion gap metabolic acidosis ESRD Uremic encephalopathy Blair catheter in place Patient on hemodialysis dependent now TDC placed on 07/07 Continue to hold diuretics Repeat BMP tomorrow, checked today transit survey worker on board for outpatient hemodialysis setup Assessment & Plan (09/08/2025 10:57 AM CDT): Altered mental status most likely from uremia Blair catheter placed Nephrology consulted Hold diuretics Daily BMP UA positive for RBC, WBC, hyaline cast and some bacteria Q4H vitals Q4H neuro checks Palliative care consult Central line placed on 09/01 inpatient hemodialysis. Three sessions of hemodialysis done during the hospital stay No Dialysis t/d Tunneled catheter placed on 09/07 Patient will need outpatient dialysis for ESRD, as per nephrology, social work on board for outpatient hemodialysis set up Assessment & Plan (09/07/2025 10:47 AM CDT): Altered mental status most likely from uremia Blair catheter placed Nephrology consulted Hold diuretics Daily BMP UA positive for RBC, WBC, hyaline cast and some bacteria Q4H vitals Q4H neuro checks Palliative care consult Central line placed on 09/01 inpatient hemodialysis. Two sessions of hemodialysis done on 09/01 and 09/02 Dialysis t/d Tunneled catheter placed on 09/07 Patient will need outpatient dialysis for ESRD, as per nephrology, social work on board for outpatient hemodialysis set up Assessment & Plan (09/06/2025 11:34 AM CDT): High anion gap metabolic acidosis Uremic encephalopathy Blair catheter in place Patient on hemodialysis dependent now Plan for TDC placement today Continue to hold diuretics BMP checked today, repeat tomorrow transit survey worker on board for outpatient hemodialysis setup Assessment & Plan (09/05/2025 11:27 AM CDT): Altered mental status most likely from uremia Blair catheter placed Nephrology consulted Continue ceftriaxone Hold diuretics Daily BMP UA positive for RBC, WBC, hyaline cast and some bacteria Q4H vitals Q4H neuro checks Palliative care consult Central line placed on 09/01 inpatient hemodialysis. Two sessions of hemodialysis done on 09/01 and 09/02 No dialysis today Dialysis tomorrow Tunneled catheter placement tomorrow Patient will need outpatient dialysis for ESRD, as per nephrology Assessment & Plan (09/04/2025 10:45 AM CDT): Creatinine 6.9 (baseline 2.7), BUN 148 from OHS most likely due to poor oral intake and hypovolemia. Currently creatinine is 3.86 and BUN 85. AG 30 with CO2 16 Altered mental status most likely from uremia Blair catheter placed Nephrology consulted Continue ceftriaxone Discontinue IV Sodium bicarb and fluid resuscitation Hold diuretics Daily BMP UA positive for RBC, WBC, hyaline cast and some bacteria Lactate, BMP ordered Repeat BMP at 12 PM t/d Q4H vitals Q4H neuro checks Palliative care consult Central line placed on 09/01 inpatient hemodialysis. Two sessions of hemodialysis done on 09/01 and 09/02 Hold dialysis per Nephrology Will decide for ESRD tomorrow as per Nephrology Assessment & Plan (09/03/2025 11:50 AM CDT): Creatinine 6.9 (baseline 2.7), BUN 148 from OHS most likely due to poor oral intake and hypovolemia. Currently creatinine is 3.86 and BUN 85. AG 30 with CO2 16 Altered mental status most likely from uremia Blair catheter placed Nephrology consulted Continue ceftriaxone Discontinue IV Sodium bicarb and fluid resuscitation Hold diuretics Daily BMP UA positive for RBC, WBC, hyaline cast and some bacteria Lactate, BMP ordered Repeat BMP at 12 PM t/d Q4H vitals Q4H neuro checks Palliative care consult Central line placed on 09/01 inpatient hemodialysis. Two sessions of hemodialysis done on 09/01 and 09/02 No Dialysis planned today per Nephrology Assessment & Plan (09/02/2025 8:39 AM CDT): Creatinine 6.9 (baseline 2.7), BUN 148 from OHS most likely due to poor oral intake and hypovolemia. Currently creatinine is 3.86 and BUN 85. AG 30 with CO2 16 Altered mental status most likely from uremia Blair catheter placed Nephrology consulted Continue ceftriaxone Discontinue IV Sodium bicarb and fluid resuscitation Hold diuretics Daily BMP UA positive for RBC, WBC, hyaline cast and some bacteria Lactate, BMP ordered Repeat BMP at 12 PM t/d Q4H vitals Q4H neuro checks Palliative care consult Central line placed on 09/01 inpatient hemodialysis. UF 1300 mL Dialysis planned today per Nephrology Assessment & Plan (09/01/2025 10:32 AM CDT): Creatinine 6.9 (baseline 2.7), BUN 148 from OHS most likely due to poor oral intake and hypovolemia. Currently creatinine is 6.02 and BUN 140. eGFR <9 AG 30 with CO2 16 Altered mental status most likely from uremia Blair catheter placed Nephrology consulted Continue ceftriaxone Discontinue IV Sodium bicarb and fluid resuscitation Hold diuretics Daily BMP UA positive for RBC, WBC, hyaline cast and some bacteria Lactate, BMP ordered Repeat BMP at 12 PM t/d Q4H vitals Q4H neuro checks Palliative care consult Dialysis planned by alignment technician Assessment & Plan (08/31/2025 12:57 PM CDT): Creatinine 6.9 (baseline 2.7), BUN 148 from OHS most likely due to poor oral intake and hypovolemia. Currently creatinine is 6.2 and BUN 140. eGFR <9 AG 30 with CO2 16 Altered mental status most likely from uremia Blair catheter placed Nephrology consulted Continue ceftriaxone Continue IV Sodium bicarb and fluid resuscitation Hold diuretics Follow BMP UA ordered Lactate, BMP ordered Repeat BMP at 12 PM t/d Q4H vitals Q4H neuro checks Shock liver 08/30/2025 09/06/2025 Assessment & Plan (09/05/2025 11:27 AM CDT): LFTs improving Daily LFTs Hold atorvastatin US liver on 09/01 shows hepatic steatosis Assessment & Plan (09/04/2025 10:45 AM CDT): LFTs improving Daily LFTs Hold atorvastatin US liver on 09/01 shows hepatic steatosis Assessment & Plan (09/03/2025 11:50 AM CDT): LFTs improving Daily LFTs Hold atorvastatin US liver on 09/01 shows hepatic steatosis Assessment & Plan (09/02/2025 8:39 AM CDT): INR 2.2, improving LFTs improving Daily LFTs Hold atorvastatin US liver on 09/01 shows hepatic steatosis Assessment & Plan (09/01/2025 8:58 AM CDT): INR 3.08 LFTs improving Daily LFTs Hold atorvastatin US liver today Assessment & Plan (08/31/2025 12:57 PM CDT): T. Bili 1.4 d.bili 0.9 INR 3.08 LFTs improving AST 450, ALT 666 Daily LFTs Hold atorvastatin US liver ordered Assessment & Plan (08/30/2025 11:40 PM CDT): OHS: AST 838, ALT 709 LFTs improving AST 569, ALT 667 -Monitor LFTs -Unsure of etiology. No acute findings on CT. -Hold atorvastatin High anion gap metabolic acidosis 08/30/2025 09/10/2025 Assessment & Plan (09/10/2025 12:55 PM CDT): Altered mental status most likely from uremia - now improved Nephrology following Tunneled catheter placed on 09/07 Patient will need outpatient dialysis for ESRD, as per nephrology, social work on board for outpatient hemodialysis set up Assessment & Plan (09/08/2025 10:57 AM CDT): Altered mental status most likely from uremia Blair catheter placed Nephrology consulted Hold diuretics Daily BMP UA positive for RBC, WBC, hyaline cast and some bacteria Q4H vitals Q4H neuro checks Palliative care consult Central line placed on 09/01 inpatient hemodialysis. Three sessions of hemodialysis done during the hospital stay No Dialysis t/d Tunneled catheter placed on 09/07 Patient will need outpatient dialysis for ESRD, as per nephrology, social work on board for outpatient hemodialysis set up Assessment & Plan (09/07/2025 10:47 AM CDT): Altered mental status most likely from uremia Blair catheter placed Nephrology consulted Hold diuretics Daily BMP UA positive for RBC, WBC, hyaline cast and some bacteria Q4H vitals Q4H neuro checks Palliative care consult Central line placed on 09/01 inpatient hemodialysis. Two sessions of hemodialysis done on 09/01 and 09/02 Dialysis t/d Tunneled catheter placed on 09/07 Patient will need outpatient dialysis for ESRD, as per nephrology, social work on board for outpatient hemodialysis set up Assessment & Plan (09/05/2025 11:27 AM CDT): Altered mental status most likely from uremia Blair catheter placed Nephrology consulted Continue ceftriaxone Hold diuretics Daily BMP UA positive for RBC, WBC, hyaline cast and some bacteria Q4H vitals Q4H neuro checks Palliative care consult Central line placed on 09/01 inpatient hemodialysis. Two sessions of hemodialysis done on 09/01 and 09/02 No dialysis today Dialysis tomorrow Tunneled catheter placement tomorrow Patient will need outpatient dialysis for ESRD, as per nephrology Assessment & Plan (09/04/2025 10:45 AM CDT): Creatinine 6.9 (baseline 2.7), BUN 148 from OHS most likely due to poor oral intake and hypovolemia. Currently creatinine is 3.86 and BUN 85. AG 30 with CO2 16 Altered mental status most likely from uremia Blair catheter placed Nephrology consulted Continue ceftriaxone Discontinue IV Sodium bicarb and fluid resuscitation Hold diuretics Daily BMP UA positive for RBC, WBC, hyaline cast and some bacteria Lactate, BMP ordered Repeat BMP at 12 PM t/d Q4H vitals Q4H neuro checks Palliative care consult Central line placed on 09/01 inpatient hemodialysis. Two sessions of hemodialysis done on 09/01 and 09/02 Hold dialysis per Nephrology Will decide for ESRD tomorrow as per Nephrology Assessment & Plan (09/03/2025 11:50 AM CDT): Creatinine 6.9 (baseline 2.7), BUN 148 from OHS most likely due to poor oral intake and hypovolemia. Currently creatinine is 3.86 and BUN 85. AG 30 with CO2 16 Altered mental status most likely from uremia Blair catheter placed Nephrology consulted Continue ceftriaxone Discontinue IV Sodium bicarb and fluid resuscitation Hold diuretics Daily BMP UA positive for RBC, WBC, hyaline cast and some bacteria Lactate, BMP ordered Repeat BMP at 12 PM t/d Q4H vitals Q4H neuro checks Palliative care consult Central line placed on 09/01 inpatient hemodialysis. Two sessions of hemodialysis done on 09/01 and 09/02 No Dialysis planned today per Nephrology Assessment & Plan (09/02/2025 8:39 AM CDT): Creatinine 6.9 (baseline 2.7), BUN 148 from OHS most likely due to poor oral intake and hypovolemia. Currently creatinine is 3.86 and BUN 85. AG 30 with CO2 16 Altered mental status most likely from uremia Blair catheter placed Nephrology consulted Continue ceftriaxone Discontinue IV Sodium bicarb and fluid resuscitation Hold diuretics Daily BMP UA positive for RBC, WBC, hyaline cast and some bacteria Lactate, BMP ordered Repeat BMP at 12 PM t/d Q4H vitals Q4H neuro checks Palliative care consult Central line placed on 09/01 inpatient hemodialysis. UF 1300 mL Dialysis planned today per Nephrology Assessment & Plan (09/01/2025 10:32 AM CDT): Creatinine 6.9 (baseline 2.7), BUN 148 from OHS most likely due to poor oral intake and hypovolemia. Currently creatinine is 6.02 and BUN 140. eGFR <9 AG 30 with CO2 16 Altered mental status most likely from uremia Blair catheter placed Nephrology consulted Continue ceftriaxone Discontinue IV Sodium bicarb and fluid resuscitation Hold diuretics Daily BMP UA positive for RBC, WBC, hyaline cast and some bacteria Lactate, BMP ordered Repeat BMP at 12 PM t/d Q4H vitals Q4H neuro checks Palliative care consult Dialysis planned by alignment technician Assessment & Plan (08/31/2025 12:57 PM CDT): Creatinine 6.9 (baseline 2.7), BUN 148 from OHS most likely due to poor oral intake and hypovolemia. Currently creatinine is 6.2 and BUN 140. eGFR <9 AG 30 with CO2 16 Altered mental status most likely from uremia Blair catheter placed Nephrology consulted Continue ceftriaxone Continue IV Sodium bicarb and fluid resuscitation Hold diuretics Follow BMP UA ordered Lactate, BMP ordered Repeat BMP at 12 PM t/d Q4H vitals Q4H neuro checks Assessment & Plan (08/30/2025 11:40 PM CDT): Creatinine 6.94 (baseline 2.7), BUN 148 from OHS most likely due to poor oral intake and hypovolemia. Currently creatinine is 5.88 and BUN 126. GOLRIA improving. Altered mental status most likely from uremia Blair catheter placed -Nephrology consult -IV Sodium bicarb -Follow electrolytes -Hold diuretics Wound of buttock 05/07/2025 05/13/2025 Assessment & [...] Encounters Date Type Department Care Team Description 09/05/2025 Orders Only [facility] - Interventional Radiology [address] [place] [phone] Elina Carlos RN 09/03/2025 12:34 PM CDT Anesthesia Event [facility] GI Center [address] [place] [phone] Eduardo Connor MD Shulman, Ashley Marie, CRNA 09/03/2025 12:30 PM CDT - 09/03/2025 1:00 PM CDT Surgery [facility] [address] [place] [phone] Hay Barton MD EGD 08/30/2025 5:54 PM CDT - 09/14/2025 5:50 PM CDT Hospital Encounter [address] [phone] Gabriela Mcfarlane MD Shimotani, Dorian Genki, DO Smelser, Katelyn P., MD Dar, Tiara Altman MD Acute blood loss anemia [D62] (Primary Dx); Acute renal failure superimposed on stage 3 chronic kidney disease, unspecified acute renal failure type, unspecified whether stage 3a or 3b CKD (HCC) [N17.9, N18.30]; High anion gap metabolic acidosis [E87.29]; Anemia of chronic disease; Acute metabolic encephalopathy; PVD (peripheral vascular disease); Blindness and low vision; Multiple open wounds of foot; Acute blood loss anemia Discharge Disposition: Discharge to home, home health skilled care 08/30/2025 Orders Only [address] [phone] Gabriela Mcfarlane MD 08/19/2025 Telephone [facility] Medicine Surgery [address] [place] [address] Delilah Adams MD PhD 08/12/2025 Telephone [facility] Medicine Surgery [address] [place] [address] Katy Ramirez Appointment 07/29/2025 11:15 AM CDT Office Visit [facility] Medicine Surgery [address] 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 07/16/2025 11:57 AM CDT - 07/18/2025 7:01 PM CDT Hospital Encounter [facility] [address] [place] [address] Delilah Adams MD PhD Multiple open wounds of foot (Primary Dx); Gangrene (HCC) Discharge Disposition: Discharge to home, home health skilled care 07/12/2025 Telephone [facility] Medicine Surgery [address] Floor [address] [place] [address] Andreas Hansen, [facility] 07/08/2025 Telephone [facility] Medicine Surgery [address] 2nd [address] [place] [address] Andreas Hansen [facility] 07/04/2025 Telephone [facility] Medicine Surgery [address] 2nd [address] [place] [address] Andreas Hansen, [facility] 07/01/2025 10:00 AM CDT Office Visit [facility] Medicine Surgery [address] [facility] [address] [facility] [address]th [place] [address] [place] [address] Delilah Adams MD PhD Gangrene of right foot (HCC) (Primary Dx); Chronic renal disease, stage IV (HCC) from Last 3 Months Immunizations Immunization Administration Dates Next Due Influenza, Trivalent, High D ose, Split, Preservative Free, Intramuscular 09/14/2025,08/21/2024 Surgical History Surgery Date Site/Laterality Comments CARDIAC CATHETERIZATION 02/26/2025 Foot/Left Procedure: AMPUTATION TOE; Surgeon: Delilah Adams MD PhD; Location: [facility] OR POD 3; Service: Vascular; Laterality: Left; 3rd and 4th DEBRIDEMENT FOOT 04/21/2025 - 05/20/2025 TOE AMPUTATION 02/19/2025 - 03/20/2025 INSERT / REPLACE / REMOVE PACEMAKER 09/21/2024 - 10/20/2024 AMPUTATION FOOT / TOE 07/16/2025 Right 3rd & 4th toes TUNNELED LINE PLACEMENT > 5 YEARS 09/06/2025 N/A Medical History Medical History Date Comments Atrial fibrillation (HCC) GERD (gastroesophageal reflux disease) Chronic kidney disease Type 2 diabetes mellitus Retinopathy PVD (peripheral vascular disease) Anemia Gangrene (HCC) Legally blind Acute metabolic encephalopathy 08/31/2025 High anion gap metabolic acidosis 08/30/2025 Family History Medical History Relation Name Comments Anesthesia problems Neg Hx Social History Tobacco Use Types Packs/Day Years Used Date Smoking Tobacco: Never Passive Smoke Exposure: Past Smokeless Tobacco: Never Tobacco Cessation:Counseling Given: Not Answered Alcohol Use Standard Drinks/Week Comments Never 0 (1 standard drink = 0.6 oz pur e alcohol) Social Connection and Isolation Panel Answer Date Recorded In a typical week, how many times do you talk on the phone with family, friends, or neighbors? More than three times a week 05/06/2025 How often do you get togethe r with friends or relatives? More than three times a week 05/06/2025 How often do you attend chur ch or denominational services? Never 05/06/2025 Do you belong to any clubs o r organizations such as temple groups, unions, fraternal or athletic groups, or [...] Date Recorded PHQ-2 Total Score 0 05/06/2025 PRAPARE - Transportation Answer Date Re [...] any time in the past 12 m [facility], were you homeless or living in a [facility] (including now)? No 05/06/2025 Social Connection and Isolation Panel Answer Date Recorded In a typical week, how many times do you talk on the phone with family, friends, or neighbors? More than three times a week 09/02/2025 How often do you get togethe r with friends or relatives? More than three times a week 09/02/2025 How often do you attend chur ch or denominational services? Never 09/02/2025 Do you belong to any clubs o r organizations such as temple groups, unions, fraternal or athletic groups, or school groups? No 09/02/2025 How often do you attend meet ings of the clubs or organizations you belong to? Never 09/02/2025 Are you , , di vorced, , never , or living with a partner? 09/02/2025 AUDIT-C Answer Date Recorded Q1: How often do you have a drink containing alcohol? Never 09/03/2025 Q2: How many drinks containi ng alcohol do you have on a typical day when you are drinking? Patient does not drink Q3: How often do you have si x or more drinks on one occasion? Never 09/03/2025 Overall Financial Resource Strain (CARDIA) Answe r Date Recorded How hard is it for you to pa y for the very basics like food, housing, medical care, and heating? Not hard at all 09/02/2025 Hunger Vital Sign Answer Date Recorded Within the past 12 months, y ou worried that your food would run out before you got the money to buy more. Never true 09/02/20 25 Within the past 12 months, t he food you bought just didn't last and you didn't have money to get more. Never true 09/02/2025 PRAPARE - Transportation Answer Date Re corded In the past 12 months, has l ack of transportation kept you from medical appointments or from getting medications? No 08/21 In the past 12 months, has l ack of transportation kept you from meetings, work, or from getting things needed for daily living? No 09/02/2025 Housing Stability Vital Sign Answer Phil e Recorded In the last 12 months, was t here a time when you were not able to pay the mortgage or rent on time? No 09/02/2025 In the past 12 months, how m any times have you moved where you were living? 0 09/02/2025 At any time in the past 12 m [facility], were you homeless or living in a [facility] (including now)? No 09/02/2025 [facility] Utilities Answer Date Recorded In the past 12 months has th e electric, gas, oil, or water company threatened to shut off services in your home? No 09/02/2025 Personal Safety Answer Date Recorded Have you ever been in or are you currently in a harmful physical or emotional relationship or is someone making you feel afraid or unsafe? Denies 09/06/2025 Sex and Gender Information Value Date Recorded Sex Assigned at Not on file Legal Sex Male 3:41 AM [employer] Gender Identity Not on file Sexual Orientation Not on file Last Filed Vital Signs Vital Sign Reading Time Taken Comments Blood Pressure 146/82 09/14/2025 3:05 PM CDT Pulse 65 09/14/2025 3:05 PM CDT Temperature 36.3 C (97.4 F) 09/14/2025 3:05 PM CDT Respiratory Rate 18 09/14/2025 3:59 AM CDT Oxygen Saturation 96% 09/14/2025 3:05 PM CDT Inhaled Oxygen Concentration - - Weight 124.9 kg (275 lb 5.7 oz) 09/07/2025 6:42 AM CDT Height 185.4 cm (6' 1) 09/03/2025 11:4 4 AM CDT Body Mass Index 36.33 09/03/2025 11:44 AM CDT Plan of Treatment Health Maintenance Due Date Last Done Comments Albumin Creatinine Ratio, Urine 1953 Colon Cancer Screening-Colonoscopy 1955 Dilated Eye Exam 1953 Foot Exam 1953 Zoster Vaccine (1 of 2) 2003 Abdominal Aortic Aneurysm (A AA) Screen 2018 Well Visit 65+ 2018 DTaP/Tdap/Td Vaccine (1 - Tdap) 10/26/2022 Hemoglobin A1C 11/03/2025 05/04/2025, 02/16/2025 Lipid Panel 02/16/2026 02/16/2025 Depression Screening 05/01/2026 05/01/2025, 02/16/20 eGFR 09/12/2026 09/12/2025, 08/22, 09/08/2025, Additional history exists Fall Risk Assessment 09/14/2026 09/14/2025 Pneumococcal vaccine 65+ Completed 01/04/2025 Hepatitis C Screening Completed 09/01/2025 Hepatitis B Screening Completed 09/10/2025 Influenza Vaccine Completed 09/14/2025, , 10/03/2024, Additional history exists Medical Devices Implanted Type Area Upfitter Device Identifier Shelf Expiration Date Model / Serial / Lot Biotronik Pacemaker Left: Chest Wall [employer] Kit Cath Adult 28cm 15.5fr Durathane Duraflow Embosafe Basic [id number] - [id number] Implanted:Qty: 1 on 09/06/2025 by Julien Ball MD at [facility] [employer] 03/20/2028 [id number] / / [id number] Procedures Procedure Name Priority Date/Time Associated Diagnosis Comments POCT GLUCOSE DEVICE Routine 09/13/2025 5:58 AM CDT POCT GLUCOSE DEVICE Routine 09/12/2025 10:20 PM CDT POCT GLUCOSE DEVICE Routine 09/12/2025 5:32 PM CDT POCT GLUCOSE DEVICE Routine 09/12/2025 11:24 AM CDT EGFR Routine 09/12/2025 6:34 AM CDT DIFFERENTIAL AUTO Routine 09/12/2025 6:34 AM CDT MAGNESIUM Routine 09/12/2025 6:34 AM CDT RENAL FUNCTION PANEL Routine 09/12/2025 6:34 AM CDT CBC WITH AUTO DIFFERENTIAL Routine 09/12 6:34 AM CDT POCT GLUCOSE DEVICE Routine 09/12/2025 5:33 AM CDT POCT GLUCOSE DEVICE Routine 09/11/2025 9:57 PM CDT POCT GLUCOSE DEVICE Routine 09/11/2025 4:22 PM CDT POCT GLUCOSE DEVICE Routine 09/11/2025 11:26 AM CDT POCT GLUCOSE DEVICE Routine 09/11/2025 5:05 AM CDT POCT GLUCOSE DEVICE Routine 09/10/2025 10:04 PM CDT POCT GLUCOSE DEVICE Routine 09/10/2025 4:37 PM CDT POCT GLUCOSE DEVICE Routine 09/10/2025 11:34 AM CDT POCT GLUCOSE DEVICE Routine 09/10/2025 7:33 AM CDT POCT GLUCOSE DEVICE Routine 09/10/2025 6:40 AM CDT EGFR Routine 09/10/2025 5:11 AM CDT CBC WITHOUT DIFFERENTIAL Routine 025 5:11 AM CDT COMPREHENSIVE METABOLIC PANEL Routine 5:11 AM CDT HEPATITIS B SURFACE ANTIBODY (IMMUNE STATUS) Routine 09/10/2025 5:11 AM CDT HEPATITIS B SURFACE ANTIGEN Routine 08/22 5:11 AM CDT POCT GLUCOSE DEVICE Routine 09/09/2025 8:17 PM CDT POCT GLUCOSE DEVICE Routine 09/09/2025 4:48 PM CDT POCT GLUCOSE DEVICE Routine 09/09/2025 11:43 AM CDT POCT GLUCOSE DEVICE Routine 09/09/2025 7:41 AM CDT POCT GLUCOSE DEVICE Routine 09/08/2025 8:54 PM CDT POCT GLUCOSE DEVICE Routine 09/08/2025 4:41 PM CDT POCT GLUCOSE DEVICE Routine 09/08/2025 11:30 AM CDT POCT GLUCOSE DEVICE Routine 09/08/2025 8:01 AM CDT EGFR Routine 09/08/2025 4:09 AM CDT CBC WITHOUT DIFFERENTIAL Routine 025 4:09 AM CDT COMPREHENSIVE METABOLIC PANEL Routine 4:09 AM CDT POCT GLUCOSE DEVICE Routine 09/07/2025 9:48 PM CDT POCT GLUCOSE DEVICE Routine 09/07/2025 4:41 PM CDT POCT GLUCOSE DEVICE Routine 09/07/2025 11:17 AM CDT EGFR Routine 09/07/2025 7:11 AM CDT CBC WITHOUT DIFFERENTIAL Routine 025 7:11 AM CDT COMPREHENSIVE METABOLIC PANEL Routine 7:11 AM CDT POCT GLUCOSE DEVICE Routine 09/07/2025 5:34 AM CDT POCT GLUCOSE DEVICE Routine 09/06/2025 8:21 PM CDT POCT GLUCOSE DEVICE Routine 09/06/2025 4:59 PM CDT POCT GLUCOSE DEVICE Routine 09/06/2025 11:39 AM CDT TUNNELED LINE PLACEMENT > 5 YEARS IP Routine 09/06/2025 9:14 AM CDT PROTIME-INR STAT 09/06/2025 6:58 AM CDT POCT GLUCOSE DEVICE Routine 09/06/2025 6:33 AM CDT EGFR Routine 09/06/2025 6:23 AM CDT DIFFERENTIAL AUTO Routine 09/06/2025 6:23 AM CDT COMPREHENSIVE METABOLIC PANEL Routine 6:23 AM CDT CBC WITH AUTO DIFFERENTIAL Routine 09/06 6:23 AM CDT POCT GLUCOSE DEVICE Routine 09/05/2025 8:06 PM CDT POCT GLUCOSE DEVICE Routine 09/05/2025 11:13 AM CDT POCT GLUCOSE DEVICE Routine 09/05/2025 7:39 AM CDT EGFR Routine 09/05/2025 6:24 AM CDT DIFFERENTIAL AUTO Routine 09/05/2025 6:24 AM CDT COMPREHENSIVE METABOLIC PANEL Routine 6:24 AM CDT CBC WITH AUTO DIFFERENTIAL Routine 09/05 6:24 AM CDT POCT GLUCOSE DEVICE Routine 09/04/2025 8:12 PM CDT POCT GLUCOSE DEVICE Routine 09/04/2025 4:43 PM CDT POCT GLUCOSE DEVICE Routine 09/04/2025 11:25 AM CDT EGFR Routine 09/04/2025 5:47 AM CDT DIFFERENTIAL AUTO Routine 09/04/2025 5:47 AM CDT COMPREHENSIVE METABOLIC PANEL Routine 5:47 AM CDT CBC WITH AUTO DIFFERENTIAL Routine 09/04 5:47 AM CDT POCT GLUCOSE DEVICE Routine 09/04/2025 4:08 AM CDT EGFR Routine 09/04/2025 1:32 AM CDT BASIC METABOLIC PANEL Routine 09/04/2025 1:32 AM CDT POCT GLUCOSE DEVICE Routine 09/04/2025 1:26 AM CDT POCT GLUCOSE DEVICE Routine 09/03/2025 8:16 PM CDT POCT GLUCOSE DEVICE Routine 09/03/2025 4:26 PM CDT EGD 09/03/2025 12:37 PM CDT ESOPHAGOGASTRODUODENOSCOPY 09/03 12:34 PM CDT Anemia of chronic disease EGFR Routine 09/03/2025 6:44 AM CDT DIFFERENTIAL AUTO Routine 09/03/2025 6:44 AM CDT COMPREHENSIVE METABOLIC PANEL Routine 6:44 AM CDT CBC WITH AUTO DIFFERENTIAL Routine 09/03 6:44 AM CDT POCT GLUCOSE DEVICE Routine 09/03/2025 4:01 AM CDT POCT GLUCOSE DEVICE Routine 09/02/2025 11:58 PM CDT POCT GLUCOSE DEVICE Routine 09/02/2025 9:14 PM CDT POCT GLUCOSE DEVICE Routine 09/02/2025 4:54 PM CDT POCT GLUCOSE DEVICE Routine 09/02/2025 12:03 PM CDT POCT GLUCOSE DEVICE Routine 09/02/2025 7:58 AM CDT EGFR Routine 09/02/2025 3:49 AM CDT DIFFERENTIAL AUTO Routine 09/02/2025 3:49 AM CDT PROTIME-INR Routine 09/02/2025 3:49 AM CDT LACTATE DEHYDROGENASE Routine 09/02/2025 3:49 AM CDT COMPREHENSIVE METABOLIC PANEL Routine 3:49 AM CDT CBC WITH AUTO DIFFERENTIAL Routine 09/02 3:49 AM CDT POCT GLUCOSE DEVICE Routine 09/02/2025 3:36 AM CDT POCT GLUCOSE DEVICE Routine 09/01/2025 11:25 PM CDT POCT GLUCOSE DEVICE Routine 09/01/2025 7:18 PM CDT POCT GLUCOSE DEVICE Routine 09/01/2025 5:10 PM CDT POCT GLUCOSE DEVICE Routine 09/01/2025 11:30 AM CDT US LIVER IP Routine 09/01/2025 11:11 AM CDT ADD ON LAB TEST Add-On 09/01/2025 10:50 AM CDT ADD ON LAB TEST Add-On 09/01/2025 10:50 AM CDT XR CHEST 1 VIEW ED Urgent/IP Urgent 09/01/2025 10:30 AM CDT MS INSJ NON-TUNNELED CENTRAL VENOUS CATH AGE 3 YR/> Routine 09/01/2025 10:17 AM CDT Acute renal failure superimposed on stage 3 chronic kidney disease, unspecified acute renal failure type, unspecified whether stage 3a or 3b CKD (HCC) [N17.9, N18.30] HEPATITIS PANEL, ACUTE STAT 9:43 AM CDT ADD ON LAB TEST Add-On 09/01/2025 8:00 AM CDT POCT GLUCOSE DEVICE Routine 09/01/2025 7:40 AM CDT FERRITIN Routine 09/01/2025 5:52 AM CDT IRON PROFILE W/ IBC Routine 09/01/2025 5:52 AM CDT MAGNESIUM Routine 09/01/2025 5:52 AM CDT EGFR Routine 09/01/2025 5:52 AM CDT DIFFERENTIAL AUTO Routine 09/01/2025 5:52 AM CDT COMPREHENSIVE METABOLIC PANEL Routine 5:52 AM CDT CBC WITH AUTO DIFFERENTIAL Routine 09/01 5:52 AM CDT POCT GLUCOSE DEVICE Routine 09/01/2025 3:38 AM CDT POCT GLUCOSE DEVICE Routine 08/31/2025 11:44 PM CDT POCT GLUCOSE DEVICE Routine 08/31/2025 7:46 PM CDT POCT GLUCOSE DEVICE Routine 08/31/2025 4:47 PM CDT ECG 12-LEAD Routine 08/31/2025 3:14 PM CDT EGFR Routine 08/31/2025 12:47 PM CDT BASIC METABOLIC PANEL Routine 08/31/2025 12:47 PM CDT POCT GLUCOSE DEVICE Routine 08/31/2025 11:36 AM CDT URINALYSIS, MICROSCOPIC ONLY Routine 09/2025 10:03 AM CDT URINALYSIS AND REFLEX TO MICROSCOPIC AND CULTURE Routine 08/31/2025 10:03 AM CDT XR CHEST 1 VIEW IP Routine 08/31/2025 9:55 AM CDT EGFR STAT 08/31/2025 9:17 AM CDT BASIC METABOLIC PANEL STAT 08/31/2025 9:17 AM CDT DIFFERENTIAL AUTO STAT 08/31/2025 9:17 AM CDT LACTATE STAT 08/31/2025 9:17 AM CDT HEPATIC FUNCTION PANEL STAT 9:17 AM CDT CBC WITH AUTO DIFFERENTIAL STAT 08/31 9:17 AM CDT POCT GLUCOSE DEVICE Routine 08/31/2025 8:19 AM CDT BLOOD GAS, ARTERIAL STAT 08/31/2025 7:27 AM CDT EGFR Routine 08/31/2025 6:51 AM CDT DIFFERENTIAL AUTO Routine 08/31/2025 6:51 AM CDT B CHECK SAMPLE Routine 08/31/2025 6:51 AM CDT CBC WITH AUTO DIFFERENTIAL Routine 08/31 6:51 AM CDT BASIC METABOLIC PANEL Routine 08/31/2025 6:51 AM CDT POCT GLUCOSE DEVICE Routine 08/31/2025 3:48 AM CDT POCT GLUCOSE DEVICE Routine 08/30/2025 11:48 PM CDT EGFR Routine 08/30/2025 10:07 PM CDT DIFFERENTIAL AUTO Routine 08/30/2025 10:07 PM CDT PROTIME-INR Routine 08/30/2025 10:07 PM CDT TYPE AND SCREEN Routine 08/30/2025 10:07 PM CDT COMPREHENSIVE METABOLIC PANEL Routine 10:07 PM CDT CBC WITH AUTO DIFFERENTIAL Routine 08/30 10:07 PM CDT POCT GLUCOSE DEVICE Routine 08/30/2025 9:20 PM CDT POCT GLUCOSE DEVICE Routine 07/18/2025 5:13 PM CDT POCT GLUCOSE DEVICE Routine 07/18/2025 12:10 PM CDT HEMOGLOBIN AND HEMATOCRIT STAT 2024 10:02 AM CDT POCT GLUCOSE DEVICE Routine 07/18/2025 8:36 AM CDT CBC WITHOUT DIFFERENTIAL Timed 025 6:53 AM CDT TRANSFUSE RED BLOOD CELLS Timed 2024 2:58 AM CDT PREPARE RBC Timed 07/18/2025 1:24 AM CDT CBC WITHOUT DIFFERENTIAL Routine 025 8:56 PM CDT POCT GLUCOSE DEVICE Routine 07/17/2025 8:10 PM CDT POCT GLUCOSE DEVICE Routine 07/17/2025 5:21 PM CDT POCT GLUCOSE DEVICE Routine 07/17/2025 11:33 AM CDT POCT GLUCOSE DEVICE Routine 07/17/2025 7:25 AM CDT CBC WITHOUT DIFFERENTIAL STAT 025 7:12 AM CDT TYPE AND SCREEN Timed 07/17/2025 12:53 AM CDT DIFFERENTIAL AUTO STAT 07/17/2025 12:52 AM CDT CBC WITH AUTO DIFFERENTIAL STAT 07/17 12:52 AM CDT EGFR Timed 07/16/2025 11:34 PM CDT CBC WITHOUT DIFFERENTIAL Timed 025 11:34 PM CDT BASIC METABOLIC PANEL Timed 07/16/2025 11:34 PM CDT POCT GLUCOSE DEVICE Routine 07/16/2025 8:36 PM CDT POCT GLUCOSE DEVICE Routine 07/16/2025 5:30 PM CDT SURGICAL PATHOLOGY Routine 07/16/2025 4:55 PM CDT Gangrene (HCC) AMPUTATION TOE 07/16/2025 4:07 PM CDT Gangrene (HCC) HEMOGLOBIN AND HEMATOCRIT STAT 2024 3:43 PM CDT POCT GLUCOSE DEVICE Routine 07/16/2025 3:42 PM CDT HEMOGLOBIN A1C Timed 05/04/2025 4:40 PM CDT LIPID PANEL Routine 02/16/2025 12:16 AM CDT from Last 3 Months or Most Recently Relevant to Health Maintenance Results * POCT glucose (09/13/2025 5:58 AM CDT) Glucose, POC 146 70 - 199 mg/dL Comment: For Glucose values <35 mg/dl when Hematocrit is >60 mg/dl,the test may not accurately detect significant hypoglycemia,and testing in the Laboratory should be considered if clinically indicated. Blood 09/13/2025 5:58 AM CDT 09/13/2025 5:58 AM CDT us Neisha Moya MD LAB POCT ORDERABLES - FLOYD CE Final Result [facility] [address] Department [place] [address] * POCT glucose (09/12/2025 10:20 PM CDT) Glucose, POC 139 70 - 199 mg/dL Comment: For Glucose values <35 mg/dl when Hematocrit is >60 mg/dl,the test may not accurately detect significant hypoglycemia,and testing in the Laboratory should be considered if clinically indicated. Blood 09/12/2025 10:2 0 PM CDT 09/12/2025 10:20 PM CDT us Neisha Moya MD LAB POCT ORDERABLES - FLOYD CE Final Result Performing Organization Address [facility] Co de Phone Number [facility] Sahil DavidsonCitlali Stephany Barron [facility] [employer] [place], [place] [id number] * POCT glucose (09/12/2025 5:32 PM CDT) Glucose, POC 95 70 - 199 mg/dL Comment: For Glucose values <35 mg/dl when Hematocrit is >60 mg/dl,the test may not accurately detect significant hypoglycemia,and testing in the Laboratory should be considered if clinically indicated. Blood 09/12/2025 5:32 PM CDT 09/12/2025 5:32 PM CDT Neisha Moya MD LAB POCT ORDERABLES - FLOYD CE Final Result Performing Organization Address [facility] Co de Phone Number [facility] [address] [facility] [place] [address] * POCT glucose (09/12/2025 11:24 AM CDT) Glucose, POC 163 70 - 199 mg/dL Comment: For Glucose values <35 mg/dl when Hematocrit is >60 mg/dl,the test may not accurately detect significant hypoglycemia,and testing in the Laboratory should be considered if clinically indicated. Blood 09/12/2025 11:2 4 AM CDT 09/12/2025 11:24 AM CDT Neisha Moya MD LAB POCT ORDERABLES - FLOYD CE Final Result Performing Organization Address City/[facility] Co de Phone Number [facility] [address] [facility] [employer] [place], [place] [id number] * (ABNORMAL) eGFR (09/12/2025 6:34 AM CDT) eGFR 29(L) >=60 mL/min/1. 73 m2 [...] interpretive data was last reviewed 2021. Blood 09/12/2025 6:34 AM CDT 09/12/2025 6:43 AM CDT us Neisha Moya MD LAB BLOOD ORDERABLES Final Result [facility] [address] Department [place] [address] * Differential, auto (09/12/2025 6:34 AM CDT) Neutrophil abs 3.79 1.50 - 6.50 K/cumm Imm gran abs 0.02 0.00 - 0.10 K/cumm [facility] Lymphocyte abs 1.20 0.80 - 3.30 K/cumm [facility] Monocyte abs 0.35 0.20 - 0.80 K/cumm [facility] Eosinophil abs 0.17 0.00 - 0.50 K/cumm [facility] Basophil abs 0.09 0.00 - 0.10 K/cumm [facility] Neutrophil pct 67.4 % [facility] Comment: Interpretive Data Percent cell count reference ranges are not reported, since discordance with absolute values may lead to misinterpretation of CBC data. Current Interpretive Data was last revised on 2018. Imm gran pct 0.4 % [facility] Comment: Interpretive Data Percent cell count reference ranges are not reported, since discordance with absolute values may lead to misinterpretation of CBC data. Current Interpretive Data was last revised on 2018. Lymphocyte pct 21.4 % [facility] Comment: Interpretive Data Percent cell count reference ranges are not reported, since discordance with absolute values may lead to misinterpretation of CBC data. Current Interpretive Data was last revised on 2018. Monocyte pct 6.2 % [facility] Comment: Interpretive Data Percent cell count reference ranges are not reported, since discordance with absolute values may lead to misinterpretation of CBC data. Current Interpretive Data was last revised on 2018. Eosinophil pct 3.0 % [facility] Comment: Interpretive Data Percent cell count reference ranges are not reported, since discordance with absolute values may lead to misinterpretation of CBC data. Current Interpretive Data was last revised on 2018. Basophil pct 1.6 % [facility] Comment: Interpretive Data Percent cell count reference ranges are not reported, since discordance with absolute values may lead to misinterpretation of CBC data. Current Interpretive Data was last revised on 2018. Blood 09/12/2025 6:34 AM CDT 09/12/2025 6:43 AM CDT us Neisha Moya MD LAB BLOOD ORDERABLES Final Result [facility] [address] Department [place] [address] * (ABNORMAL) CBC with auto differential (09/12/2025 6:34 AM CDT) WBC 5.62 3.80 - 9.90 K/cumm Hgb 9.4(L) 13.0 - 17.5 g/dL [facility] Hct 32.7(L) 38.9 - 50.3 % [facility] Plt 254 150 - 400 K/cumm [facility] MPV 10.2 9.1 - 12.3 fL [facility] RBC 3.50(L) 4.30 - 5.80 M/cumm [facility] MCV 93.4 81.3 - 96.4 fL [facility] MCH 26.9(L) 27.1 - 33.3 pg [facility] MCHC 28.7(L) 32.3 - 35.7 g/dL [facility] RDW CV 18.2(H) 11.1 - 14.9 % [facility] RDW SD 62.5(H) 35.7 - 48.1 fL [facility] NRBC abs 0.00 0.00 - 0.01 K/cumm [facility] Blood 09/12/2025 6:34 AM CDT 09/12/2025 6:43 AM CDT us Neisha Moya MD LAB BLOOD ORDERABLES Final Result [facility] [address] Department of [employer] [place], [place] [id number] * Magnesium (09/12/2025 6:34 AM CDT) [facility] Magnesium 2.3 1.4 - 2.5 mg/dL Blood 09/12/2025 6:34 AM CDT 09/12/2025 6:43 AM CDT us Neisha Moya MD LAB BLOOD ORDERABLES Final Result [facility] [address] [place] [address] * (ABNORMAL) Renal function panel (09/12/2025 6:34 AM CDT) [facility] Sodium 141 135 - 145 mmol/L Potassium, pl 3.5 3.3 - 4.9 mmol/L [facility] Chloride 99 97 - 110 mmol/L [facility] CO2 29 22 - 32 mmol/L [facility] Anion gap 13 2 - 15 mmol/L [facility] BUN 31(H) 6 - 25 mg/dL [facility] Creatinine 2.35(H) 0.80 - 1.30 mg/dL [facility] Glucose 132 70 - 199 mg/dL [facility] Comment: Interpretive Data Fasting glucose >/= 126 [...] 2022. Calcium 8.0(L) 8.5 - 10.3 mg/dL [facility] Phosphorus, pl 2.7 2.3 - 4.5 mg/dL [facility] Albumin 3.4(L) 3.5 - 5.0 g/dL [facility] Blood 09/12/2025 6:34 AM CDT 09/12/2025 6:43 AM CDT us Neisha Moya MD LAB BLOOD ORDERABLES Final Result Performing Organization Address City/[facility]/ZIP Co de Phone Number [facility] [address] [facility] [place] [address] * POCT glucose (09/12/2025 5:33 AM CDT) [facility] Glucose, POC 122 70 - 199 mg/dL Comment: For Glucose values <35 mg/dl when Hematocrit is >60 mg/dl,the test may not accurately detect significant hypoglycemia,and testing in the Laboratory should be considered if clinically indicated. Blood 09/12/2025 5:33 AM CDT 09/12/2025 5:33 AM CDT Neisha Moya MD LAB POCT ORDERABLES - FLOYD CE Final Result [facility] [address] [place] [address] * POCT glucose (09/11/2025 9:57 PM CDT) Glucose, POC 141 70 - 199 mg/dL Comment: For Glucose values <35 mg/dl when Hematocrit is >60 mg/dl,the test may not accurately detect significant hypoglycemia,and testing in the Laboratory should be considered if clinically indicated. Blood 09/11/2025 9:57 PM CDT 09/11/2025 9:57 PM CDT Neisha Moya MD LAB POCT ORDERABLES - FLOYD CE Final Result Performing Organization Address [facility] Co de Phone Number [facility] [address] [facility] [place] [address] * POCT glucose (09/11/2025 4:22 PM CDT) Glucose, POC 112 70 - 199 mg/dL Comment: For Glucose values <35 mg/dl when Hematocrit is >60 mg/dl,the test may not accurately detect significant hypoglycemia,and testing in the Laboratory should be considered if clinically indicated. Blood 09/11/2025 4:22 PM CDT 09/11/2025 4:22 PM CDT Neisha Moya MD LAB POCT ORDERABLES - FLOYD CE Final Result Performing Organization Address [facility] Co de Phone Number [facility] [address] [facility] [place] [address] * POCT glucose (09/11/2025 11:26 AM CDT) Glucose, POC 167 70 - 199 mg/dL Comment: For Glucose values <35 mg/dl when Hematocrit is >60 mg/dl,the test may not accurately detect significant hypoglycemia,and testing in the Laboratory should be considered if clinically indicated. Blood 09/11/2025 11:2 6 AM CDT 09/11/2025 11:26 AM CDT Neisha Moya MD LAB POCT ORDERABLES - FLOYD CE Final Result Performing Organization Address [facility] Co de Phone Number [facility] [address] [facility] [employer] [place], [place] [phone] * POCT glucose (09/11/2025 5:05 AM CDT) Glucose, POC 128 70 - 199 mg/dL Comment: For Glucose values <35 mg/dl when Hematocrit is >60 mg/dl,the test may not accurately detect significant hypoglycemia,and testing in the Laboratory should be considered if clinically indicated. Blood 09/11/2025 5:05 AM CDT 09/11/2025 5:05 AM CDT Neisha Moya MD LAB POCT ORDERABLES - FLOYD CE Final Result Performing Organization Address [place] de Phone Number [facility] [address] [facility] [place] [address] * POCT glucose (09/10/2025 10:04 PM CDT) Glucose, POC 174 70 - 199 mg/dL Comment: For Glucose values <35 mg/dl when Hematocrit is >60 mg/dl,the test may not accurately detect significant hypoglycemia,and testing in the Laboratory should be considered if clinically indicated. Blood 09/10/2025 10:0 4 PM CDT 09/10/2025 10:04 PM CDT Neisha Moya MD LAB POCT ORDERABLES - FLOYD CE Final Result Performing Organization Address [facility] Co de Phone Number [facility] [address] [facility] [place], [place] [id number] * POCT glucose (09/10/2025 4:37 PM CDT) Glucose, POC 190 70 - 199 mg/dL Comment: For Glucose values <35 mg/dl when Hematocrit is >60 mg/dl,the test may not accurately detect significant hypoglycemia,and testing in the Laboratory should be considered if clinically indicated. Blood 09/10/2025 4:37 PM CDT 09/10/2025 4:37 PM CDT Neisha Moya MD LAB POCT ORDERABLES - FLOYD CE Final Result Performing Organization Address [facility] de Phone Number [facility] [address] [facility] [place] [address] * POCT glucose (09/10/2025 11:34 AM CDT) Glucose, POC 144 70 - 199 mg/dL Comment: For Glucose values <35 mg/dl when Hematocrit is >60 mg/dl,the test may not accurately detect significant hypoglycemia,and testing in the Laboratory should be considered if clinically indicated. Blood 09/10/2025 11:3 4 AM CDT 09/10/2025 11:34 AM CDT Result [facility] Neisha Moya MD LAB POCT ORDERABLES - FLOYD CE Final Result Performing Organization Address [place] de Phone Number [facility] [address] [facility] [place] [address] * POCT glucose (09/10/2025 7:33 AM CDT) Glucose, POC 142 70 - 199 mg/dL Comment: For Glucose values <35 mg/dl when Hematocrit is >60 mg/dl,the test may not accurately detect significant hypoglycemia,and testing in the Laboratory should be considered if clinically indicated. Blood 09/10/2025 7:33 AM CDT 09/10/2025 7:33 AM CDT us Neisha Moya MD LAB POCT ORDERABLES - FLOYD CE Final Result Performing Organization Address [facility] de Phone Number [facility] [address] Department [place] [address] * POCT glucose (09/10/2025 6:40 AM CDT) Pathologist [facility] Glucose, POC 150 70 - 199 mg/dL Comment: For Glucose values <35 mg/dl when Hematocrit is >60 mg/dl,the test may not accurately detect significant hypoglycemia,and testing in the Laboratory should be considered if clinically indicated. Blood 09/10/2025 6:40 AM CDT 09/10/2025 6:40 AM CDT us Neisha Moya MD LAB POCT ORDERABLES - FLOYD CE Final Result [facility] [address] Department [place] [address] * (ABNORMAL) eGFR (09/10/2025 5:11 AM CDT) [facility] eGFR 23(L) >=60 mL/min/1. 73 m2 Comment: [...] interpretive data was last reviewed 2021. Blood 09/10/2025 5:11 AM CDT 09/10/2025 5:48 AM CDT us Hay Barton MD LAB BLOOD ORDERABLE S Final Result Performing Organization Address [facility] Co de Phone Number [facility] [address] Department [place], [place] [phone] * Hepatitis B surface antibody (immune status) Blood (09/10/2025 5:11 AM CDT) Pathologist [facility] HBsAb (immune status) Nonreactive Comment: This result is consistent with a lack of immunity to Hepatitis B Virus when used in the setting of routine screening. Current interpretative data was last revised on 22 Testing performed by: [facility], [address] [place] [address]., [id number] Blood 09/10/2025 5:11 AM CDT 09/10/2025 11:30 AM CDT Tiara Lowry MD LAB MICROBIOLOGY - GENERAL ORDERABLES Final Result Performing Organization Address [facility] Co de Phone Number [facility] [address] [place] [address] * Hepatitis B Surface Antigen Blood (09/10/2025 5:11 AM CDT) [facility] HepBsAg Nonreactive Nonreactive Blood 09/10/2025 5:11 AM CDT 09/10/2025 5:48 AM CDT Tiara Lowry MD LAB MICROBIOLOGY - GENERAL ORDERABLES Final Result Performing Organization Address [facility] Co de Phone Number [facility] [address] Department of [place], [place] [phone] * (ABNORMAL) CBC without differential (09/10/2025 5:11 AM CDT) [facility] WBC 6.38 3.80 - 9.90 K/cumm Hgb 8.3(L) 13.0 - 17.5 g/dL [facility] Hct 28.4(L) 38.9 - 50.3 % [facility] Plt 206 150 - 400 K/cumm [facility] MPV 10.5 9.1 - 12.3 fL [facility] RBC 3.05(L) 4.30 - 5.80 M/cumm [facility] MCV 93.1 81.3 - 96.4 fL [facility] MCH 27.2 27.1 - 33.3 pg [facility] MCHC 29.2(L) 32.3 - 35.7 g/dL [facility] RDW CV 18.7(H) 11.1 - 14.9 % [facility] RDW SD 63.2(H) 35.7 - 48.1 fL [facility] NRBC abs 0.00 0.00 - 0.01 K/cumm [facility] Blood 09/10/2025 5:11 AM CDT 09/10/2025 5:48 AM CDT Tiara Lowry MD LAB BLOOD ORDERABLES Final Result [facility] [address] Department [place] [address] * (ABNORMAL) Comprehensive metabolic panel (09/10/2025 5:11 AM CDT) Sodium 143 135 - 145 mmol/L Potassium, pl 3.0(L) 3.3 - 4.9 mmol/L [facility] Chloride 100 97 - 110 mmol/L [facility] CO2 27 22 - 32 mmol/L [facility] Anion gap 16(H) 2 - 15 mmol/L [facility] BUN 36(H) 6 - 25 mg/dL [facility] Creatinine 2.86(H) 0.80 - 1.30 mg/dL [facility] Glucose 141 70 - 199 mg/dL [facility] Comment: Interpretive Data Fasting glucose >/= 126 [...] interpretive data was last revised 2022. Calcium 7.7(L) 8.5 - 10.3 mg/dL [facility] Bilirubin, total 0.8 0.1 - 1.2 mg/dL [facility] Protein, pl 6.4(L) 6.5 - 8.5 g/dL [facility] Albumin 3.2(L) 3.5 - 5.0 g/dL [facility] Alk phos 87 40 - 130 Units/L [facility] ALT 56(H) 7 - 55 Units/L [facility] AST 21 10 - 50 Units/L [facility] Blood 09/10/2025 5:11 AM CDT 09/10/2025 5:48 AM CDT Hay Barton MD LAB BLOOD ORDERABLE S Final Result Performing Organization Address [facility]/ZIP Co de Phone Number [facility] [address] [place] [address] * (ABNORMAL) POCT glucose (09/09/2025 8:17 PM CDT) Glucose, POC 219(H) 70 - 199 mg/dL Comment: For Glucose values <35 mg/dl when Hematocrit is >60 mg/dl,the test may not accurately detect significant hypoglycemia,and testing in the Laboratory should be considered if clinically indicated. Blood 09/09/2025 8:17 PM CDT 09/09/2025 8:17 PM CDT Tiara Lowry MD LAB POCT ORDERABLES - DEVIC E Final Result Performing Organization Address [facility]/ZIP Co de Phone Number [facility] [address] Department of [place], [place] [phone] * POCT glucose (09/09/2025 4:48 PM CDT) Glucose, POC 153 70 - 199 mg/dL Comment: For Glucose values <35 mg/dl when Hematocrit is >60 mg/dl,the test may not accurately detect significant hypoglycemia,and testing in the Laboratory should be considered if clinically indicated. Blood 09/09/2025 4:48 PM CDT 09/09/2025 4:48 PM CDT Result [facility] Tiara Lowry MD LAB POCT ORDERABLES - DEVIC E Final Result Performing Organization Address [facility] de Phone Number [facility] [address] Department [place], [place] [id number] * POCT glucose (09/09/2025 11:43 AM CDT) Glucose, POC 185 70 - 199 mg/dL Comment: For Glucose values <35 mg/dl when Hematocrit is >60 mg/dl,the test may not accurately detect significant hypoglycemia,and testing in the Laboratory should be considered if clinically indicated. Blood 09/09/2025 11:4 3 AM CDT 09/09/2025 11:43 AM CDT Result [facility] Tiara Lowry MD LAB POCT ORDERABLES - DEVIC E Final Result Performing Organization Address [place] de Phone Number [facility] [address] [facility] [place] [address] * POCT glucose (09/09/2025 7:41 AM CDT) Glucose, POC 150 70 - 199 mg/dL Comment: For Glucose values <35 mg/dl when Hematocrit is >60 mg/dl,the test may not accurately detect significant hypoglycemia,and testing in the Laboratory should be considered if clinically indicated. Blood 09/09/2025 7:41 AM CDT 09/09/2025 7:41 AM CDT Result [facility] Tiara Lowry MD LAB POCT ORDERABLES - DEVIC E Final Result Performing Organization Address [facility]/ZIP Co de Phone Number [facility] [address] Department [place] [address] * POCT glucose (09/08/2025 8:54 PM CDT) Glucose, POC 171 70 - 199 mg/dL Comment: For Glucose values <35 mg/dl when Hematocrit is >60 mg/dl,the test may not accurately detect significant hypoglycemia,and testing in the Laboratory should be considered if clinically indicated. Blood 09/08/2025 8:54 PM CDT 09/08/2025 8:54 PM CDT Result [facility] Tiara Lowry MD LAB POCT ORDERABLES - DEVIC E Final Result Performing Organization Address [facility] de Phone Number [facility] [address] Department [place] [address] * POCT glucose (09/08/2025 4:41 PM CDT) Glucose, POC 132 70 - 199 mg/dL Comment: For Glucose values <35 mg/dl when Hematocrit is >60 mg/dl,the test may not accurately detect significant hypoglycemia,and testing in the Laboratory should be considered if clinically indicated. Blood 09/08/2025 4:41 PM CDT 09/08/2025 4:41 PM CDT Tiara Lowry MD LAB POCT ORDERABLES - DEVIC E Final Result Performing Organization Address [facility] Co de Phone Number [facility] [address] [place] [address] * POCT glucose (09/08/2025 11:30 AM CDT) Glucose, POC 138 70 - 199 mg/dL Comment: For Glucose values <35 mg/dl when Hematocrit is >60 mg/dl,the test may not accurately detect significant hypoglycemia,and testing in the Laboratory should be considered if clinically indicated. Blood 09/08/2025 11:3 0 AM CDT 09/08/2025 11:30 AM CDT Result [facility] Tiara Lowry MD LAB POCT ORDERABLES - DEVIC E Final Result Performing Organization Address [facility] Co de Phone Number [facility] [address] Department of Laboratories [place], [place] [phone] * POCT glucose (09/08/2025 8:01 AM CDT) Pathologist [facility] Glucose, POC 119 70 - 199 mg/dL Comment: For Glucose values <35 mg/dl when Hematocrit is >60 mg/dl,the test may not accurately detect significant hypoglycemia,and testing in the Laboratory should be considered if clinically indicated. Blood 09/08/2025 8:01 AM CDT 09/08/2025 8:01 AM CDT Tiara Lowry MD LAB POCT ORDERABLES - DEVIC E Final Result Performing Organization Address [facility] Co de Phone Number [facility] [address] Department [place] [address] * (ABNORMAL) eGFR (09/08/2025 4:09 AM CDT) [facility] eGFR 31(L) >=60 mL/min/1. 73 m2 Comment: [...] interpretive data was last reviewed 2021. Blood 09/08/2025 4:09 AM CDT 09/08/2025 4:24 AM CDT Hay Barton MD LAB BLOOD ORDERABLE S Final Result Performing Organization Address City/[facility]/ZIP Co de Phone Number [facility] [address] [place] [address] * (ABNORMAL) CBC without differential (09/08/2025 4:09 AM CDT) WBC 6.49 3.80 - 9.90 K/cumm Hgb 8.2(L) 13.0 - 17.5 g/dL [facility] Hct 28.5(L) 38.9 - 50.3 % [facility] Plt 175 150 - 400 K/cumm [facility] MPV 10.6 9.1 - 12.3 fL [facility] RBC 3.07(L) 4.30 - 5.80 M/cumm [facility] MCV 92.8 81.3 - 96.4 fL [facility] MCH 26.7(L) 27.1 - 33.3 pg [facility] MCHC 28.8(L) 32.3 - 35.7 g/dL [facility] RDW CV 18.4(H) 11.1 - 14.9 % [facility] RDW SD 61.0(H) 35.7 - 48.1 fL [facility] NRBC abs 0.00 0.00 - 0.01 K/cumm [facility] Blood 09/08/2025 4:09 AM CDT 09/08/2025 4:25 AM CDT Tiara Lowry MD LAB BLOOD ORDERABLES Final Result [facility] [address] Department [employer] [place], [place] [phone] * (ABNORMAL) Comprehensive metabolic panel (09/08/2025 4:09 AM CDT) Sodium 140 135 - 145 mmol/L Potassium, pl 3.1(L) 3.3 - 4.9 mmol/L [facility] Chloride 98 97 - 110 mmol/L [facility] CO2 29 22 - 32 mmol/L [facility] Anion gap 13 2 - 15 mmol/L [facility] BUN 21 6 - 25 mg/dL [facility] Creatinine 2.20(H) 0.80 - 1.30 mg/dL [facility] Glucose 113 70 - 199 mg/dL [facility] Comment: Interpretive Data Fasting glucose >/= 126 [...] interpretive data was last revised 2022. Calcium 7.7(L) 8.5 - 10.3 mg/dL [facility] Bilirubin, total 1.2 0.1 - 1.2 mg/dL [facility] Protein, pl 6.4(L) 6.5 - 8.5 g/dL [facility] Albumin 3.3(L) 3.5 - 5.0 g/dL [facility] Alk phos 90 40 - 130 Units/L [facility] ALT 81(H) 7 - 55 Units/L [facility] AST 23 10 - 50 Units/L [facility] Blood 09/08/2025 4:09 AM CDT 09/08/2025 4:24 AM CDT us Hay Barton MD LAB BLOOD ORDERABLE S Final Result [facility] [address] Department [place] [address] * POCT glucose (09/07/2025 9:48 PM CDT) Glucose, POC 113 70 - 199 mg/dL Comment: For Glucose values <35 mg/dl when Hematocrit is >60 mg/dl,the test may not accurately detect significant hypoglycemia,and testing in the Laboratory should be considered if clinically indicated. Blood 09/07/2025 9:48 PM CDT 09/07/2025 9:48 PM CDT Result [facility] Tiara Lowry MD LAB POCT ORDERABLES - DEVIC E Final Result Performing Organization Address City/[facility] Co de Phone Number [facility] [address] [facility] [place] [address] * POCT glucose (09/07/2025 4:41 PM CDT) Glucose, POC 128 70 - 199 mg/dL Comment: For Glucose values <35 mg/dl when Hematocrit is >60 mg/dl,the test may not accurately detect significant hypoglycemia,and testing in the Laboratory should be considered if clinically indicated. Blood 09/07/2025 4:41 PM CDT 09/07/2025 4:41 PM CDT Result [facility] Tiara Lowry MD LAB POCT ORDERABLES - DEVIC E Final Result Performing Organization Address City/[facility]/ZIP Co de Phone Number [facility] [address] [facility] [place] [address] * POCT glucose (09/07/2025 11:17 AM CDT) Glucose, POC 99 70 - 199 mg/dL Comment: For Glucose values <35 mg/dl when Hematocrit is >60 mg/dl,the test may not accurately detect significant hypoglycemia,and testing in the Laboratory should be considered if clinically indicated. Blood 09/07/2025 11:1 7 AM CDT 09/07/2025 11:17 AM CDT Result [facility] Tiara Lowry MD LAB POCT ORDERABLES - DEVIC E Final Result Performing Organization Address [facility] Co de Phone Number [facility] [address] [place] [address] * (ABNORMAL) eGFR (09/07/2025 7:11 AM CDT) Pathologist [facility] eGFR 22(L) >=60 mL/min/1. 73 m2 Comment: [...] interpretive data was last reviewed 2021. Blood 09/07/2025 7:11 AM CDT 09/07/2025 7:24 AM CDT Hay Barton MD LAB BLOOD ORDERABLE S Final Result Performing Organization Address [facility]/ZIP Co de Phone Number [facility] [address] Department of [place] [place], [place] [phone] * (ABNORMAL) CBC without differential (09/07/2025 7:11 AM CDT) Pathologist [facility] WBC 5.92 3.80 - 9.90 K/cumm Hgb 7.7(L) 13.0 - 17.5 g/dL [facility] Hct 26.2(L) 38.9 - 50.3 % [facility] Plt 159 150 - 400 K/cumm [facility] MPV 10.3 9.1 - 12.3 fL [facility] RBC 2.80(L) 4.30 - 5.80 M/cumm [facility] MCV 93.6 81.3 - 96.4 fL [facility] MCH 27.5 27.1 - 33.3 pg [facility] MCHC 29.4(L) 32.3 - 35.7 g/dL [facility] RDW CV 18.5(H) 11.1 - 14.9 % [facility] RDW SD 61.8(H) 35.7 - 48.1 fL [facility] NRBC abs 0.00 0.00 - 0.01 K/cumm [facility] Blood 09/07/2025 7:11 AM CDT 09/07/2025 7:24 AM CDT Tiara Lowry MD LAB BLOOD ORDERABLES Final Result [facility] [address] Department [place] [address] * (ABNORMAL) Comprehensive metabolic panel (09/07/2025 7:11 AM CDT) Sodium 140 135 - 145 mmol/L Potassium, pl 3.1(L) 3.3 - 4.9 mmol/L [facility] Chloride 97 97 - 110 mmol/L [facility] CO2 30 22 - 32 mmol/L [facility] Anion gap 13 2 - 15 mmol/L [facility] BUN 35(H) 6 - 25 mg/dL [facility] Creatinine 2.94(H) 0.80 - 1.30 mg/dL [facility] Glucose 119 70 - 199 mg/dL [facility] Comment: Interpretive Data Fasting glucose >/= 126 [...] interpretive data was last revised 2022. Calcium 7.4(L) 8.5 - 10.3 mg/dL [facility] Bilirubin, total 1.2 0.1 - 1.2 mg/dL [facility] Protein, pl 6.0(L) 6.5 - 8.5 g/dL [facility] Albumin 3.3(L) 3.5 - 5.0 g/dL [facility] Alk phos 83 40 - 130 Units/L [facility] ALT 90(H) 7 - 55 Units/L [facility] AST 23 10 - 50 Units/L [facility] Blood 09/07/2025 7:11 AM CDT 09/07/2025 7:24 AM CDT Hay Barton MD LAB BLOOD ORDERABLE S Final Result Performing Organization Address City/[facility]/ZIP Co de Phone Number [facility] [address] [facility] [place], [place] [phone] * POCT glucose (09/07/2025 5:34 AM CDT) Glucose, POC 127 70 - 199 mg/dL Comment: For Glucose values <35 mg/dl when Hematocrit is >60 mg/dl,the test may not accurately detect significant hypoglycemia,and testing in the Laboratory should be considered if clinically indicated. Blood 09/07/2025 5:34 AM CDT 09/07/2025 5:34 AM CDT Tiara Lowry MD LAB POCT ORDERABLES - DEVIC E Final Result Performing Organization Address [facility]/ZIP Co de Phone Number [facility] [address] Department of [place] [place], [place] [phone] * POCT glucose (09/06/2025 8:21 PM CDT) Glucose, POC 151 70 - 199 mg/dL Comment: For Glucose values <35 mg/dl when Hematocrit is >60 mg/dl,the test may not accurately detect significant hypoglycemia,and testing in the Laboratory should be considered if clinically indicated. Blood 09/06/2025 8:21 PM CDT 09/06/2025 8:21 PM CDT Result [facility] Tiara Lowry MD LAB POCT ORDERABLES - DEVIC E Final Result Performing Organization Address [facility] de Phone Number [facility] [address] Department [place] [address] * POCT glucose (09/06/2025 4:59 PM CDT) Glucose, POC 118 70 - 199 mg/dL Comment: For Glucose values <35 mg/dl when Hematocrit is >60 mg/dl,the test may not accurately detect significant hypoglycemia,and testing in the Laboratory should be considered if clinically indicated. Blood 09/06/2025 4:59 PM CDT 09/06/2025 4:59 PM CDT Result [facility] Tiara Lowry MD LAB POCT ORDERABLES - DEVIC E Final Result Performing Organization Address [place] de Phone Number [facility] [address] Department [place] [address] * POCT glucose (09/06/2025 11:39 AM CDT) Glucose, POC 135 70 - 199 mg/dL Comment: For Glucose values <35 mg/dl when Hematocrit is >60 mg/dl,the test may not accurately detect significant hypoglycemia,and testing in the Laboratory should be considered if clinically indicated. Blood 09/06/2025 11:3 9 AM CDT 09/06/2025 11:39 AM CDT Result [facility] Tiara Lowry MD LAB POCT ORDERABLES - DEVIC E Final Result Performing Organization Address [facility] de Phone Number [facility] [address] Department [place] [address] * IR Tunneled Line Placement > 5 Years (09/06/2025 9:14 AM CDT) Anatomical Region Laterality Modality Body N/A X-Ray Angiograph y 09/06/2025 10:3 8 AM CDT Impressions 09/06/2025 10:38 AM CDT 1. Successful tunneled 23 cm tip to cuff dialysis catheter placement via the right internal jugular vein. 2. Successful non tunnelednontunneled dialysis catheter removal. PLAN: The catheter is ready for immediate use. When treatment is completed, removal can be scheduled by calling [facility] - [phone] [facility] - [phone] Electronically signed by: Julien Ball MD Narrative 09/06/2025 10:38 AM CDT EXAMINATION: TUNNELED CENTRAL VENOUS CATHETER PLACEMENT USING ULTRASOUND GUIDANCE HISTORY/INDICATION: 70-year-old male with end-stage renal disease ATTENDING PRESENCE: Julien Ball MD, the attending radiologist, was present from the beginning to the end of the procedure. SEDATION: Procedural sedation was administered under the attending physician's direction and continuous monitoring by a trained nurse specialist who was independent from those actually performing the procedure. Total monitored sedation time was 30 minutes. TECHNIQUE: The risks, benefits and alternatives were discussed and informed consent was obtained. Prior to beginning the procedure, [place] Protocol was used to confirm the patient's identity and planned procedure. Fluoroscopy time has been recorded in the electronic medical record. Prior to the procedure, the central veins were evaluated by ultrasound, an image recorded and placed in the patient's chart. The indwelling non tunneled dialysis catheter was removed and manual pressure was held for hemostasis. Maximum sterile barriers including cap, mask, hand hygiene, sterile gloves, sterile gown, large sterile drape and 2% chlorhexidine for cutaneous antisepsis were used. The skin over the right internal jugular vein was sterilely prepped, draped and infiltrated with 1% lidocaine. The vein was accessed with a 21 gauge needle using realtime ultrasound guidance. A guidewire and catheter were then passed centrally using fluoroscopic guidance. The intravascular length from the access site to the right atrium was then measured. After infiltrating the skin in the subclavicular region with 1% buffered lidocaine, a short transverse incision was made and the 23 cm tip to cuff dialysis catheter was tunneled to the internal jugular access site and inserted through a peel-away sheath. The dialysis catheter was flushed with 1000 U/ml heparin. The incision in the lower neck was closed using 4-0 Monocryl. A sterile dressing was applied. ESTIMATED BLOOD LOSS: Minimal. CONDITION: Stable DISCHARGED TO: Recovery and then to home FINDINGS: Ultrasound image shows a patent vein in the lower neck. The final fluoroscopic image demonstrates the catheter with its tip at the cavoatrial junction . No complications are seen. Procedure Note Julien Ball MD - 09/06/2025 EXAMINATION: TUNNELED CENTRAL VENOUS CATHETER PLACEMENT USING ULTRASOUND GUIDANCE HISTORY/INDICATION: 70-year-old male with end-stage renal disease ATTENDING PRESENCE: Julien Ball MD, the attending radiologist, was present from the beginning to the end of the procedure. SEDATION: Procedural sedation was administered under the attending physician's direction and continuous monitoring by a trained nurse specialist who was independent from those actually performing the procedure. Total monitored sedation time was 30 minutes. TECHNIQUE: The risks, benefits and alternatives were discussed and informed consent was obtained. Prior to beginning the procedure, [place] Protocol was used to confirm the patient's identity and planned procedure. Fluoroscopy time has been recorded in the electronic medical record. Prior to the procedure, the central veins were evaluated by ultrasound, an image recorded and placed in the patient's chart. The indwelling non tunneled dialysis catheter was removed and manual pressure was held for hemostasis. Maximum sterile barriers including cap, mask, hand hygiene, sterile gloves, sterile gown, large sterile drape and 2% chlorhexidine for cutaneous antisepsis were used. The skin over the right internal jugular vein was sterilely prepped, draped and infiltrated with 1% lidocaine. The vein was accessed with a 21 gauge needle using realtime ultrasound guidance. A guidewire and catheter were then passed centrally using fluoroscopic guidance. The intravascular length from the access site to the right atrium was then measured. After infiltrating the skin in the subclavicular region with 1% buffered lidocaine, a short transverse incision was made and the 23 cm tip to cuff dialysis catheter was tunneled to the internal jugular access site and inserted through a peel-away sheath. The dialysis catheter was flushed with 1000 U/ml heparin. The incision in the lower neck was closed using 4-0 Monocryl. A sterile dressing was applied. ESTIMATED BLOOD LOSS: Minimal. CONDITION: Stable DISCHARGED TO: Recovery and then to home FINDINGS: Ultrasound image shows a patent vein in the lower neck. The final fluoroscopic image demonstrates the catheter with its tip at the cavoatrial junction . No complications are seen. IMPRESSION: 1. Successful tunneled 23 cm tip to cuff dialysis catheter placement via the right internal jugular vein. 2. Successful non tunnelednontunneled dialysis catheter removal. PLAN: The catheter is ready for immediate use. When treatment is completed, removal can be scheduled by calling [facility] - [phone] [facility] - [phone] Electronically signed by: Julien Ball MD us Burt Leonard MD IMG IR PROCEDURES Final Result * (ABNORMAL) Protime-INR (09/06/2025 6:58 AM CDT) PT 21.4(H) 10.2 - 13.5 sec INR 1.92(H) 0.90 - 1.20 [facility] Comment: Interpretive data Oral anticoagulant therapeutic ranges: Venous thromboembolism prophylaxis or treatment: 2.0-3.0 CARDIOLOGY Standard range: 2.0-3.0 High-intensity range: 2.5-3.5 Refer to indication-specific guidelines for appropriate target ranges for prosthetic heart valve replacement. Current interpretive data was last revised on 2019. Blood 09/06/2025 6:58 AM CDT 09/06/2025 7:02 AM CDT us Mara ALBARRAN LAB BLOOD ORDERABL ES Final Result [facility] [address] Department of [employer] [place], [place] [id number] * POCT glucose (09/06/2025 6:33 AM CDT) [facility] Glucose, POC 144 70 - 199 mg/dL Comment: For Glucose values <35 mg/dl when Hematocrit is >60 mg/dl,the test may not accurately detect significant hypoglycemia,and testing in the Laboratory should be considered if clinically indicated. Blood 09/06/2025 6:33 AM CDT 09/06/2025 6:33 AM CDT Tiara Lowry MD LAB POCT ORDERABLES - DEVIC E Final Result Performing Organization Address City/[facility]/ZIP Co de Phone Number [facility] [address] [facility] [place] [address] * (ABNORMAL) eGFR (09/06/2025 6:23 AM CDT) [facility] eGFR 25(L) >=60 mL/min/1. 73 m2 Comment: [...] interpretive data was last reviewed 2021. Blood 09/06/2025 6:23 AM CDT 09/06/2025 6:29 AM CDT Hay Barton MD LAB BLOOD ORDERABLE S Final Result [facility] [address] Department [place] [address] * Differential, auto (09/06/2025 6:23 AM CDT) Neutrophil abs 4.84 1.50 - 6.50 K/cumm Imm gran abs 0.02 0.00 - 0.10 K/cumm [facility] Lymphocyte abs 0.86 0.80 - 3.30 K/cumm [facility] Monocyte abs 0.50 0.20 - 0.80 K/cumm [facility] Eosinophil abs 0.16 0.00 - 0.50 K/cumm [facility] Basophil abs 0.05 0.00 - 0.10 K/cumm [facility] Neutrophil pct 75.2 % [facility] Comment: Interpretive Data Percent cell count reference ranges are not reported, since discordance with absolute values may lead to misinterpretation of CBC data. Current Interpretive Data was last revised on 2018. Imm gran pct 0.3 % [facility] Comment: Interpretive Data Percent cell count reference ranges are not reported, since discordance with absolute values may lead to misinterpretation of CBC data. Current Interpretive Data was last revised on 2018. Lymphocyte pct 13.4 % [facility] Comment: Interpretive Data Percent cell count reference ranges are not reported, since discordance with absolute values may lead to misinterpretation of CBC data. Current Interpretive Data was last revised on 2018. Monocyte pct 7.8 % [facility] Comment: Interpretive Data Percent cell count reference ranges are not reported, since discordance with absolute values may lead to misinterpretation of CBC data. Current Interpretive Data was last revised on 2018. Eosinophil pct 2.5 % [facility] Comment: Interpretive Data Percent cell count reference ranges are not reported, since discordance with absolute values may lead to misinterpretation of CBC data. Current Interpretive Data was last revised on 2018. Basophil pct 0.8 % [facility] Comment: Interpretive Data Percent cell count reference ranges are not reported, since discordance with absolute values may lead to misinterpretation of CBC data. Current Interpretive Data was last revised on 2018. Blood 09/06/2025 6:23 AM CDT 09/06/2025 6:29 AM CDT Hay Barton MD LAB BLOOD ORDERABLE S Final Result Performing Organization Address [facility]/ZIP Co de Phone Number [facility] [address] [facility] [place] [address] * (ABNORMAL) CBC with auto differential (09/06/2025 6:23 AM CDT) [facility] WBC 6.43 3.80 - 9.90 K/cumm Hgb 7.8(L) 13.0 - 17.5 g/dL [facility] Hct 26.9(L) 38.9 - 50.3 % [facility] Plt 166 150 - 400 K/cumm [facility] MPV 10.5 9.1 - 12.3 fL [facility] RBC 2.89(L) 4.30 - 5.80 M/cumm [facility] MCV 93.1 81.3 - 96.4 fL [facility] MCH 27.0(L) 27.1 - 33.3 pg [facility] MCHC 29.0(L) 32.3 - 35.7 g/dL [facility] RDW CV 18.0(H) 11.1 - 14.9 % [facility] RDW SD 57.2(H) 35.7 - 48.1 fL [facility] NRBC abs 0.00 0.00 - 0.01 K/cumm [facility] Blood 09/06/2025 6:23 AM CDT 09/06/2025 6:29 AM CDT Hay Barton MD LAB BLOOD ORDERABLE S Final Result [facility] [address] [facility] [place] [address] * (ABNORMAL) Comprehensive metabolic panel (09/06/2025 6:23 AM CDT) Pathologist [facility] Sodium 140 135 - 145 mmol/L Potassium, pl 3.3 3.3 - 4.9 mmol/L [facility] Chloride 97 97 - 110 mmol/L [facility] CO2 29 22 - 32 mmol/L [facility] Anion gap 14 2 - 15 mmol/L [facility] BUN 33(H) 6 - 25 mg/dL [facility] Creatinine 2.62(H) 0.80 - 1.30 mg/dL [facility] Glucose 131 70 - 199 mg/dL [facility] Comment: Interpretive Data Fasting glucose >/= 126 [...] interpretive data was last revised 2022. Calcium 7.2(L) 8.5 - 10.3 mg/dL [facility] Bilirubin, total 1.3(H) 0.1 - 1.2 mg/dL [facility] Protein, pl 6.2(L) 6.5 - 8.5 g/dL [facility] Albumin 3.3(L) 3.5 - 5.0 g/dL [facility] Alk phos 94 40 - 130 Units/L [facility] ALT 120(H) 7 - 55 Units/L [facility] AST 29 10 - 50 Units/L [facility] Blood 09/06/2025 6:23 AM CDT 09/06/2025 6:29 AM CDT us Hay Barton MD LAB BLOOD ORDERABLE S Final Result [facility] [address] Department [place] [address] * POCT glucose (09/05/2025 8:06 PM CDT) [facility] Glucose, POC 143 70 - 199 mg/dL Comment: For Glucose values <35 mg/dl when Hematocrit is >60 mg/dl,the test may not accurately detect significant hypoglycemia,and testing in the Laboratory should be considered if clinically indicated. Blood 09/05/2025 8:06 PM CDT 09/05/2025 8:06 PM CDT Result [facility] Tiara Lowry MD LAB POCT ORDERABLES - DEVIC E Final Result Performing Organization Address [facility] de Phone Number [facility] [address] [facility] [place] [address] * POCT glucose (09/05/2025 11:13 AM CDT) Glucose, POC 150 70 - 199 mg/dL Comment: For Glucose values <35 mg/dl when Hematocrit is >60 mg/dl,the test may not accurately detect significant hypoglycemia,and testing in the Laboratory should be considered if clinically indicated. Blood 09/05/2025 11:1 3 AM CDT 09/05/2025 11:13 AM CDT Result [facility] Tiara Lowry MD LAB POCT ORDERABLES - DEVIC E Final Result Performing Organization Address [facility] de Phone Number [facility] [address] [place] [address] * POCT glucose (09/05/2025 7:39 AM CDT) Glucose, POC 130 70 - 199 mg/dL Comment: For Glucose values <35 mg/dl when Hematocrit is >60 mg/dl,the test may not accurately detect significant hypoglycemia,and testing in the Laboratory should be considered if clinically indicated. Blood 09/05/2025 7:39 AM CDT 09/05/2025 7:39 AM CDT Result [facility] Tiara Lowry MD LAB POCT ORDERABLES - DEVIC E Final Result Performing Organization Address City/[facility] Co de Phone Number [facility] [address] Department [place] [address] * (ABNORMAL) eGFR (09/05/2025 6:24 AM CDT) Pathologist [facility] eGFR 18(L) >=60 mL/min/1. 73 m2 Comment: Interpretive Data [...] interpretive data was last reviewed 2021. Blood 09/05/2025 6:24 AM CDT 09/05/2025 6:56 AM CDT us Hay Barton MD LAB BLOOD ORDERABLE S Final Result [facility] [address] Department [place] [address] * Differential, auto (09/05/2025 6:24 AM CDT) Pathologist [facility] Neutrophil abs 3.65 1.50 - 6.50 K/cumm Imm gran abs 0.02 0.00 - 0.10 K/cumm [facility] Lymphocyte abs 0.85 0.80 - 3.30 K/cumm [facility] Monocyte abs 0.55 0.20 - 0.80 K/cumm [facility] Eosinophil abs 0.18 0.00 - 0.50 K/cumm [facility] Basophil abs 0.06 0.00 - 0.10 K/cumm [facility] Neutrophil pct 68.7 % [facility] Comment: Interpretive Data Percent cell count reference ranges are not reported, since discordance with absolute values may lead to misinterpretation of CBC data. Current Interpretive Data was last revised on 2018. Imm gran pct 0.4 % [facility] Comment: Interpretive Data Percent cell count reference ranges are not reported, since discordance with absolute values may lead to misinterpretation of CBC data. Current Interpretive Data was last revised on 2018. Lymphocyte pct 16.0 % [facility] Comment: Interpretive Data Percent cell count reference ranges are not reported, since discordance with absolute values may lead to misinterpretation of CBC data. Current Interpretive Data was last revised on 2018. Monocyte pct 10.4 % [facility] Comment: Interpretive Data Percent cell count reference ranges are not reported, since discordance with absolute values may lead to misinterpretation of CBC data. Current Interpretive Data was last revised on 2018. Eosinophil pct 3.4 % [facility] Comment: Interpretive Data Percent cell count reference ranges are not reported, since discordance with absolute values may lead to misinterpretation of CBC data. Current Interpretive Data was last revised on 2018. Basophil pct 1.1 % [facility] Comment: Interpretive Data Percent cell count reference ranges are not reported, since discordance with absolute values may lead to misinterpretation of CBC data. Current Interpretive Data was last revised on 2018. Blood 09/05/2025 6:24 AM CDT 09/05/2025 6:55 AM CDT us Hay Barton MD LAB BLOOD ORDERABLE S Final Result [facility] [address] Department [place] [address] * (ABNORMAL) CBC with auto differential (09/05/2025 6:24 AM CDT) WBC 5.31 3.80 - 9.90 K/cumm Hgb 8.0(L) 13.0 - 17.5 g/dL [facility] Hct 27.2(L) 38.9 - 50.3 % [facility] Plt 163 150 - 400 K/cumm [facility] MPV 10.7 9.1 - 12.3 fL [facility] RBC 2.96(L) 4.30 - 5.80 M/cumm [facility] MCV 91.9 81.3 - 96.4 fL [facility] MCH 27.0(L) 27.1 - 33.3 pg [facility] MCHC 29.4(L) 32.3 - 35.7 g/dL [facility] RDW CV 17.2(H) 11.1 - 14.9 % [facility] RDW SD 54.2(H) 35.7 - 48.1 fL [facility] NRBC abs 0.04(H) 0.00 - 0.01 K/cumm [facility] Blood 09/05/2025 6:24 AM CDT 09/05/2025 6:55 AM CDT us Hay Barton MD LAB BLOOD ORDERABLE S Final Result [facility] [address] Department [place] [address] * (ABNORMAL) Comprehensive metabolic panel (09/05/2025 6:24 AM CDT) Sodium 142 135 - 145 mmol/L Potassium, pl 3.3 3.3 - 4.9 mmol/L [facility] Chloride 98 97 - 110 mmol/L [facility] CO2 29 22 - 32 mmol/L [facility] Anion gap 15 2 - 15 mmol/L [facility] BUN 57(H) 6 - 25 mg/dL [facility] Creatinine 3.52(H) 0.80 - 1.30 mg/dL [facility] Glucose 111 70 - 199 mg/dL [facility] Comment: Interpretive Data Fasting glucose >/= 126 [...] interpretive data was last revised 2022. Calcium 7.5(L) 8.5 - 10.3 mg/dL [facility] Bilirubin, total 1.3(H) 0.1 - 1.2 mg/dL [facility] Protein, pl 6.3(L) 6.5 - 8.5 g/dL [facility] Albumin 3.4(L) 3.5 - 5.0 g/dL [facility] Alk phos 89 40 - 130 Units/L [facility] ALT 160(H) 7 - 55 Units/L [facility] AST 36 10 - 50 Units/L [facility] Blood 09/05/2025 6:24 AM CDT 09/05/2025 6:56 AM CDT Hay Barton MD LAB BLOOD ORDERABLE S Final Result Performing Organization Address City/[facility]/ZIP Co de Phone Number [facility] [address] [facility] [place] [address] * POCT glucose (09/04/2025 8:12 PM CDT) [facility] Glucose, POC 129 70 - 199 mg/dL Comment: For Glucose values <35 mg/dl when Hematocrit is >60 mg/dl,the test may not accurately detect significant hypoglycemia,and testing in the Laboratory should be considered if clinically indicated. Blood 09/04/2025 8:12 PM CDT 09/04/2025 8:12 PM CDT Tiara Lowry MD LAB POCT ORDERABLES - DEVIC E Final Result Performing Organization Address City/[facility]/ZIP Co de Phone Number [facility] [address] [place] [address] * POCT glucose (09/04/2025 4:43 PM CDT) Glucose, POC 122 70 - 199 mg/dL Comment: For Glucose values <35 mg/dl when Hematocrit is >60 mg/dl,the test may not accurately detect significant hypoglycemia,and testing in the Laboratory should be considered if clinically indicated. Blood 09/04/2025 4:43 PM CDT 09/04/2025 4:43 PM CDT Tiara Lowry MD LAB POCT ORDERABLES - DEVIC E Final Result Performing Organization Address [facility] Co de Phone Number [facility] [address] [place] [address] * POCT glucose (09/04/2025 11:25 AM CDT) Glucose, POC 184 70 - 199 mg/dL Comment: For Glucose values <35 mg/dl when Hematocrit is >60 mg/dl,the test may not accurately detect significant hypoglycemia,and testing in the Laboratory should be considered if clinically indicated. Blood 09/04/2025 11:2 5 AM CDT 09/04/2025 11:25 AM CDT Tiara Lowry MD LAB POCT ORDERABLES - DEVIC E Final Result Performing Organization Address City/[facility] Co de Phone Number [facility] [address] [place] [address] * (ABNORMAL) eGFR (09/04/2025 5:47 AM CDT) eGFR 19(L) >=60 mL/min/1. 73 [...] interpretive data was last reviewed 2021. Blood 09/04/2025 5:47 AM CDT 09/04/2025 5:57 AM CDT us Neisha Moya MD LAB BLOOD ORDERABLES Final Result [facility] [address] Department [place] [address] * (ABNORMAL) Differential, auto (09/04/2025 5:47 AM CDT) Neutrophil abs 3.84 1.50 - 6.50 K/cumm Imm gran abs 0.02 0.00 - 0.10 K/cumm [facility] Lymphocyte abs 0.78(L) 0.80 - 3.30 K/cumm [facility] Monocyte abs 0.59 0.20 - 0.80 K/cumm [facility] Eosinophil abs 0.14 0.00 - 0.50 K/cumm [facility] Basophil abs 0.04 0.00 - 0.10 K/cumm [facility] Neutrophil pct 71.0 % [facility] Comment: Interpretive Data Percent cell count reference ranges are not reported, since discordance with absolute values may lead to misinterpretation of CBC data. Current Interpretive Data was last revised on 2018. Imm gran pct 0.4 % [facility] Comment: Interpretive Data Percent cell count reference ranges are not reported, since discordance with absolute values may lead to misinterpretation of CBC data. Current Interpretive Data was last revised on 2018. Lymphocyte pct 14.4 % [facility] Comment: Interpretive Data Percent cell count reference ranges are not reported, since discordance with absolute values may lead to misinterpretation of CBC data. Current Interpretive Data was last revised on 2018. Monocyte pct 10.9 % [facility] Comment: Interpretive Data Percent cell count reference ranges are not reported, since discordance with absolute values may lead to misinterpretation of CBC data. Current Interpretive Data was last revised on 2018. Eosinophil pct 2.6 % [facility] Comment: Interpretive Data Percent cell count reference ranges are not reported, since discordance with absolute values may lead to misinterpretation of CBC data. Current Interpretive Data was last revised on 2018. Basophil pct 0.7 % [facility] Comment: Interpretive Data Percent cell count reference ranges are not reported, since discordance with absolute values may lead to misinterpretation of CBC data. Current Interpretive Data was last revised on 2018. Blood 09/04/2025 5:47 AM CDT 09/04/2025 5:57 AM CDT us Neisha Moya MD LAB BLOOD ORDERABLES Final Result [facility] [address] Department [place] [address] * (ABNORMAL) CBC with auto differential (09/04/2025 5:47 AM CDT) WBC 5.41 3.80 - 9.90 K/cumm Hgb 7.7(L) 13.0 - 17.5 g/dL [facility] Hct 25.4(L) 38.9 - 50.3 % [facility] Plt 179 150 - 400 K/cumm [facility] MPV 10.5 9.1 - 12.3 fL [facility] RBC 2.90(L) 4.30 - 5.80 M/cumm [facility] MCV 87.6 81.3 - 96.4 fL [facility] MCH 26.6(L) 27.1 - 33.3 pg [facility] MCHC 30.3(L) 32.3 - 35.7 g/dL [facility] RDW CV 16.5(H) 11.1 - 14.9 % [facility] RDW SD 51.5(H) 35.7 - 48.1 fL [facility] NRBC abs 0.09(H) 0.00 - 0.01 K/cumm [facility] Blood 09/04/2025 5:47 AM CDT 09/04/2025 5:57 AM CDT us Hay Barton MD LAB BLOOD ORDERABLE S Final Result [facility] [address] Department [place] [address] * (ABNORMAL) Comprehensive metabolic panel (09/04/2025 5:47 AM CDT) Sodium 137 135 - 145 mmol/L Potassium, pl 3.5 3.3 - 4.9 mmol/L [facility] Chloride 95(L) 97 - 110 mmol/L [facility] CO2 26 22 - 32 mmol/L [facility] Anion gap 16(H) 2 - 15 mmol/L [facility] BUN 51(H) 6 - 25 mg/dL [facility] Creatinine 3.26(H) 0.80 - 1.30 mg/dL [facility] Glucose 132 70 - 199 mg/dL [facility] Comment: Interpretive Data Fasting glucose >/= 126 [...] interpretive data was last revised 2022. Calcium 7.8(L) 8.5 - 10.3 mg/dL [facility] Bilirubin, total 1.3(H) 0.1 - 1.2 mg/dL [facility] Protein, pl 6.2(L) 6.5 - 8.5 g/dL [facility] Albumin 3.1(L) 3.5 - 5.0 g/dL [facility] Alk phos 93 40 - 130 Units/L [facility] ALT 208(H) 7 - 55 Units/L [facility] AST 53(H) 10 - 50 Units/L [facility] Blood 09/04/2025 5:47 AM CDT 09/04/2025 5:57 AM CDT Hay Barton MD LAB BLOOD ORDERABLE S Final Result [facility] [address] Department [place] [address] * POCT glucose (09/04/2025 4:08 AM CDT) Pathologist [facility] Glucose, POC 144 70 - 199 mg/dL Comment: For Glucose values <35 mg/dl when Hematocrit is >60 mg/dl,the test may not accurately detect significant hypoglycemia,and testing in the Laboratory should be considered if clinically indicated. Blood 09/04/2025 4:08 AM CDT 09/04/2025 4:08 AM CDT Tiara Lowry MD LAB POCT ORDERABLES - DEVIC E Final Result Performing Organization Address City/[facility]/ZIP Co de Phone Number [facility] [address] Department [place] [address] * (ABNORMAL) eGFR (09/04/2025 1:32 AM CDT) Pathologist [facility] eGFR 22(L) >=60 mL/min/1. 73 m2 Comment: [...] interpretive data was last reviewed 2021. Blood 09/04/2025 1:32 AM CDT 09/04/2025 2:03 AM CDT us Burt Leonard MD LAB BLOOD ORDERABLES Final Resu lt [facility] [address] Department [place] [address] * (ABNORMAL) Basic metabolic panel (09/04/2025 1:32 AM CDT) Sodium 142 135 - 145 mmol/L Potassium, pl 3.4 3.3 - 4.9 mmol/L [facility] Chloride 99 97 - 110 mmol/L [facility] CO2 28 22 - 32 mmol/L [facility] Anion gap 15 2 - 15 mmol/L [facility] BUN 47(H) 6 - 25 mg/dL [facility] Creatinine 2.97(H) 0.80 - 1.30 mg/dL [facility] Glucose 117 70 - 199 mg/dL [facility] Comment: Interpretive Data Fasting glucose >/= 126 [...] interpretive data was last revised 2022. Calcium 7.5(L) 8.5 - 10.3 mg/dL [facility] Blood 09/04/2025 1:32 AM CDT 09/04/2025 2:03 AM CDT Result [facility] Hay Barton MD LAB BLOOD ORDERABLE S Final Result Performing Organization Address [facility] Co de Phone Number [facility] [address] [facility] [place] [address] * POCT glucose (09/04/2025 1:26 AM CDT) Glucose, POC 127 70 - 199 mg/dL Comment: For Glucose values <35 mg/dl when Hematocrit is >60 mg/dl,the test may not accurately detect significant hypoglycemia,and testing in the Laboratory should be considered if clinically indicated. Blood 09/04/2025 1:26 AM CDT 09/04/2025 1:26 AM CDT Result [facility] Tiara Lowry MD LAB POCT ORDERABLES - DEVIC E Final Result Performing Organization Address [facility] Co de Phone Number [facility] [address] [facility] [place] [place], [place] [id number] * POCT glucose (09/03/2025 8:16 PM CDT) Glucose, POC 198 70 - 199 mg/dL Comment: For Glucose values <35 mg/dl when Hematocrit is >60 mg/dl,the test may not accurately detect significant hypoglycemia,and testing in the Laboratory should be considered if clinically indicated. Blood 09/03/2025 8:16 PM CDT 09/03/2025 8:16 PM CDT Result [facility] Tiara Lowry MD LAB POCT ORDERABLES - DEVIC E Final Result Performing Organization Address City/[facility]/ZIP Co de Phone Number [facility] [address] [place] [address] * POCT glucose (09/03/2025 4:26 PM CDT) Glucose, POC 130 70 - 199 mg/dL Comment: For Glucose values <35 mg/dl when Hematocrit is >60 mg/dl,the test may not accurately detect significant hypoglycemia,and testing in the Laboratory should be considered if clinically indicated. Blood 09/03/2025 4:26 PM CDT 09/03/2025 4:26 PM CDT Tiara Lowry MD LAB POCT ORDERABLES - DEVIC E Final Result [facility] [address] [place] [address] * EGD (09/03/2025 12:37 PM CDT) Anatomical Region Laterality Modality Other Narrative Procedure Note Hay Barton MD - 09/03/2025 12:37 PM CDT ENDOSCOPY LAB Patient Name: Gregory Hays Procedure Date: 09/03/2025 12:37PM Admit Type: Inpatient Room: [facility] Date of : 1955 Instrument Name: [id number] Gender: Male Note Status: Finalized Procedure: Upper GI endoscopy Indications: Anemia Providers: Hay Barton M.D. Referring MD: Trina Turcios, Bryan Hough M.D. Medicines: Propofol per Anesthesia Complications: No immediate complications. Estimated Blood Loss: Estimated blood loss: none. Procedure: Pre-Anesthesia Assessment: - After reviewing the risks and benefits, thepatient was deemed in satisfactory condition to undergo the procedure. The benefits, risks, and alternatives to theprocedure and sedation were discussed and informed consentwas obtained. The scope was passed under direct vision. The Endoscope was introduced through the mouth, and advanced to the second part of duodenum. The upperGI endoscopy was accomplished without difficulty. The patient tolerated the procedure well. Findings: The examined esophagus was normal. The entire examined stomach was normal. The examined duodenum was normal. Impression: - Normal esophagus. - Normal stomach. - Normal examined duodenum. - No specimens collected. Recommendation: - Return patient to hospital [facility] for ongoingcare. - Outpatient colonoscopy once inpatient renalissues improve - GI service will sign off. Suspect anemiasecondary to renal issues Dr. Hay Barton Hay Barton M.D. 09/03/2025 12:48:53 PM This document was signed electronically. Number of Addenda: 0 Note Initiated On: 09/03/2025 12:37 PM Scope In: Scope Out: us Hay Barton MD ENDOSCOPY PROCEDURE S Final Result * (ABNORMAL) eGFR (09/03/2025 6:44 AM CDT) eGFR 27(L) >=60 mL/min/1. 73 m2 Comment: Interpretive Data [...] interpretive data was last reviewed 2021. Blood 09/03/2025 6:44 AM CDT 09/03/2025 6:44 AM CDT us Neisha Moya MD LAB BLOOD ORDERABLES Final Result [facility] [address] Department [place] [address] * (ABNORMAL) Differential, auto (09/03/2025 6:44 AM CDT) Neutrophil abs 3.39 1.50 - 6.50 K/cumm Imm gran abs 0.02 0.00 - 0.10 K/cumm [facility] Lymphocyte abs 0.71(L) 0.80 - 3.30 K/cumm [facility] Monocyte abs 0.48 0.20 - 0.80 K/cumm [facility] Eosinophil abs 0.13 0.00 - 0.50 K/cumm [facility] Basophil abs 0.03 0.00 - 0.10 K/cumm [facility] Neutrophil pct 71.3 % [facility] Comment: Interpretive Data Percent cell count reference ranges are not reported, since discordance with absolute values may lead to misinterpretation of CBC data. Current Interpretive Data was last revised on 2018. Imm gran pct 0.4 % [facility] Comment: Interpretive Data Percent cell count reference ranges are not reported, since discordance with absolute values may lead to misinterpretation of CBC data. Current Interpretive Data was last revised on 2018. Lymphocyte pct 14.9 % [facility] Comment: Interpretive Data Percent cell count reference ranges are not reported, since discordance with absolute values may lead to misinterpretation of CBC data. Current Interpretive Data was last revised on 2018. Monocyte pct 10.1 % [facility] Comment: Interpretive Data Percent cell count reference ranges are not reported, since discordance with absolute values may lead to misinterpretation of CBC data. Current Interpretive Data was last revised on 2018. Eosinophil pct 2.7 % [facility] Comment: Interpretive Data Percent cell count reference ranges are not reported, since discordance with absolute values may lead to misinterpretation of CBC data. Current Interpretive Data was last revised on 2018. Basophil pct 0.6 % [facility] Comment: Interpretive Data Percent cell count reference ranges are not reported, since discordance with absolute values may lead to misinterpretation of CBC data. Current Interpretive Data was last revised on 2018. Blood 09/03/2025 6:44 AM CDT 09/03/2025 6:44 AM CDT us Neisha Moya MD LAB BLOOD ORDERABLES Final Result [facility] [address] Department of Laboratories [place], [place] [id number] * (ABNORMAL) CBC with auto differential (09/03/2025 6:44 AM CDT) WBC 4.76 3.80 - 9.90 K/cumm Hgb 8.0(L) 13.0 - 17.5 g/dL [facility] Hct 26.1(L) 38.9 - 50.3 % [facility] Plt 191 150 - 400 K/cumm [facility] MPV 10.7 9.1 - 12.3 fL [facility] RBC 2.99(L) 4.30 - 5.80 M/cumm [facility] MCV 87.3 81.3 - 96.4 fL [facility] MCH 26.8(L) 27.1 - 33.3 pg [facility] MCHC 30.7(L) 32.3 - 35.7 g/dL [facility] RDW CV 16.0(H) 11.1 - 14.9 % [facility] RDW SD 49.7(H) 35.7 - 48.1 fL [facility] NRBC abs 0.22(H) 0.00 - 0.01 K/cumm [facility] Blood 09/03/2025 6:44 AM CDT 09/03/2025 6:44 AM CDT us Hay Barton MD LAB BLOOD ORDERABLE S Final Result [facility] [address] Department [place] [address] * (ABNORMAL) Comprehensive metabolic panel (09/03/2025 6:44 AM CDT) Sodium 142 135 - 145 mmol/L Potassium, pl 3.2(L) 3.3 - 4.9 mmol/L [facility] Chloride 97 97 - 110 mmol/L [facility] CO2 29 22 - 32 mmol/L [facility] Anion gap 16(H) 2 - 15 mmol/L [facility] BUN 46(H) 6 - 25 mg/dL [facility] Comment:Dialysis Patient Creatinine 2.50(H) 0.80 - 1.30 mg/dL [facility] Comment:Dialysis Patient Glucose 132 70 - 199 mg/dL [facility] Comment: Interpretive Data Fasting glucose >/= 126 [...] interpretive data was last revised 2022. Calcium 7.7(L) 8.5 - 10.3 mg/dL [facility] Bilirubin, total 1.4(H) 0.1 - 1.2 mg/dL [facility] Protein, pl 6.2(L) 6.5 - 8.5 g/dL [facility] Albumin 3.3(L) 3.5 - 5.0 g/dL [facility] Alk phos 101 40 - 130 Units/L [facility] ALT 273(H) 7 - 55 Units/L [facility] AST 77(H) 10 - 50 Units/L [facility] Blood 09/03/2025 6:44 AM CDT 09/03/2025 6:44 AM CDT Hay Barton MD LAB BLOOD ORDERABLE S Final Result Performing Organization Address City/[facility]/ZIP Co de Phone Number [facility] [address] [facility] [place], [place] [id number] * POCT glucose (09/03/2025 4:01 AM CDT) Glucose, POC 136 70 - 199 mg/dL Comment: For Glucose values <35 mg/dl when Hematocrit is >60 mg/dl,the test may not accurately detect significant hypoglycemia,and testing in the Laboratory should be considered if clinically indicated. Blood 09/03/2025 4:01 AM CDT 09/03/2025 4:01 AM CDT Neisha Moya MD LAB POCT ORDERABLES - FLOYD CE Final Result [facility] [address] [facility] [employer] [place], [place] [id number] * POCT glucose (09/02/2025 11:58 PM CDT) Glucose, POC 145 70 - 199 mg/dL Comment: For Glucose values <35 mg/dl when Hematocrit is >60 mg/dl,the test may not accurately detect significant hypoglycemia,and testing in the Laboratory should be considered if clinically indicated. Blood 09/02/2025 11:5 8 PM CDT 09/02/2025 11:58 PM CDT Neisha Moya MD LAB POCT ORDERABLES - FLOYD CE Final Result Performing Organization Address [facility] Co de Phone Number [facility] [address] [facility] [place] [address] * (ABNORMAL) POCT glucose (09/02/2025 9:14 PM CDT) Glucose, POC 203(H) 70 - 199 mg/dL Comment: For Glucose values <35 mg/dl when Hematocrit is >60 mg/dl,the test may not accurately detect significant hypoglycemia,and testing in the Laboratory should be considered if clinically indicated. Blood 09/02/2025 9:14 PM CDT 09/02/2025 9:14 PM CDT Result [facility] Neisha Moya MD LAB POCT ORDERABLES - FLOYD CE Final Result Performing Organization Address [place] de Phone Number [facility] [address] [facility] [place] [address] * POCT glucose (09/02/2025 4:54 PM CDT) Glucose, POC 192 70 - 199 mg/dL Comment: For Glucose values <35 mg/dl when Hematocrit is >60 mg/dl,the test may not accurately detect significant hypoglycemia,and testing in the Laboratory should be considered if clinically indicated. Blood 09/02/2025 4:54 PM CDT 09/02/2025 4:54 PM CDT Result [facility] Neisha Moya MD LAB POCT ORDERABLES - FLOYD CE Final Result Performing Organization Address [facility] Co de Phone Number [facility] [address] [facility] [place] [address] * (ABNORMAL) POCT glucose (09/02/2025 12:03 PM CDT) Glucose, POC 206(H) 70 - 199 mg/dL Comment: For Glucose values <35 mg/dl when Hematocrit is >60 mg/dl,the test may not accurately detect significant hypoglycemia,and testing in the Laboratory should be considered if clinically indicated. Blood 09/02/2025 12:0 3 PM CDT 09/02/2025 12:03 PM CDT Neisha Moya MD LAB POCT ORDERABLES - FLOYD CE Final Result Performing Organization Address [facility] Co de Phone Number [facility] [address] [facility] [place] [address] * POCT glucose (09/02/2025 7:58 AM CDT) [facility] Glucose, POC 172 70 - 199 mg/dL Comment: For Glucose values <35 mg/dl when Hematocrit is >60 mg/dl,the test may not accurately detect significant hypoglycemia,and testing in the Laboratory should be considered if clinically indicated. Blood 09/02/2025 7:58 AM CDT 09/02/2025 7:58 AM CDT Neisha Moya MD LAB POCT ORDERABLES - FLOYD CE Final Result Performing Organization Address [facility] Co de Phone Number [facility] [address] [place] [address] * (ABNORMAL) eGFR (09/02/2025 3:49 AM CDT) Pathologist [facility] eGFR 16(L) >=60 mL/min/1. 73 m2 Comment: Interpretive Data [...] interpretive data was last reviewed 2021. Blood 09/02/2025 3:49 AM CDT 09/02/2025 4:15 AM CDT us Neisha Moya MD LAB BLOOD ORDERABLES Final Result [facility] [address] Department [place] [address] * (ABNORMAL) Differential, auto (09/02/2025 3:49 AM CDT) Neutrophil abs 3.44 1.50 - 6.50 K/cumm Imm gran abs 0.02 0.00 - 0.10 K/cumm [facility] Lymphocyte abs 0.60(L) 0.80 - 3.30 K/cumm [facility] Monocyte abs 0.52 0.20 - 0.80 K/cumm [facility] Eosinophil abs 0.16 0.00 - 0.50 K/cumm [facility] Basophil abs 0.03 0.00 - 0.10 K/cumm [facility] Neutrophil pct 72.1 % [facility] Comment: Interpretive Data Percent cell count reference ranges are not reported, since discordance with absolute values may lead to misinterpretation of CBC data. Current Interpretive Data was last revised on 2018. Imm gran pct 0.4 % [facility] Comment: Interpretive Data Percent cell count reference ranges are not reported, since discordance with absolute values may lead to misinterpretation of CBC data. Current Interpretive Data was last revised on 2018. Lymphocyte pct 12.6 % [facility] Comment: Interpretive Data Percent cell count reference ranges are not reported, since discordance with absolute values may lead to misinterpretation of CBC data. Current Interpretive Data was last revised on 2018. Monocyte pct 10.9 % [facility] Comment: Interpretive Data Percent cell count reference ranges are not reported, since discordance with absolute values may lead to misinterpretation of CBC data. Current Interpretive Data was last revised on 2018. Eosinophil pct 3.4 % [facility] Comment: Interpretive Data Percent cell count reference ranges are not reported, since discordance with absolute values may lead to misinterpretation of CBC data. Current Interpretive Data was last revised on 2018. Basophil pct 0.6 % [facility] Comment: Interpretive Data Percent cell count reference ranges are not reported, since discordance with absolute values may lead to misinterpretation of CBC data. Current Interpretive Data was last revised on 2018. Blood 09/02/2025 3:49 AM CDT 09/02/2025 4:15 AM CDT us Neisha Moya MD LAB BLOOD ORDERABLES Final Result [facility] [address] Department [place] [address] * (ABNORMAL) CBC with auto differential (09/02/2025 3:49 AM CDT) WBC 4.77 3.80 - 9.90 K/cumm Hgb 7.7(L) 13.0 - 17.5 g/dL [facility] Hct 24.8(L) 38.9 - 50.3 % [facility] Plt 211 150 - 400 K/cumm [facility] MPV 10.5 9.1 - 12.3 fL [facility] RBC 2.92(L) 4.30 - 5.80 M/cumm [facility] MCV 84.9 81.3 - 96.4 fL [facility] MCH 26.4(L) 27.1 - 33.3 pg [facility] MCHC 31.0(L) 32.3 - 35.7 g/dL [facility] RDW CV 15.5(H) 11.1 - 14.9 % [facility] RDW SD 47.5 35.7 - 48.1 fL [facility] NRBC abs 0.31(H) 0.00 - 0.01 K/cumm [facility] Blood 09/02/2025 3:49 AM CDT 09/02/2025 4:15 AM CDT Hay Barton MD LAB BLOOD ORDERABLE S Final Result Performing Organization Address [facility]/ZIP Co de Phone Number [facility] [address] [facility] [place], [place] [phone] * (ABNORMAL) Protime-INR (09/02/2025 3:49 AM CDT) PT 24.5(H) 10.2 - 13.5 sec INR 2.20(H) 0.90 - 1.20 [facility] Comment: Interpretive data Oral anticoagulant therapeutic ranges: Venous thromboembolism prophylaxis or treatment: 2.0-3.0 CARDIOLOGY Standard range: 2.0-3.0 High-intensity range: 2.5-3.5 Refer to indication-specific guidelines for appropriate target ranges for prosthetic heart valve replacement. Current interpretive data was last revised on 2019. Blood 09/02/2025 3:49 AM CDT 09/02/2025 3:53 AM CDT Hay Barton MD LAB BLOOD ORDERABLE S Final Result [facility] [address] [place] [address] * (ABNORMAL) Lactate dehydrogenase (LD) (09/02/2025 3:49 AM CDT) Lactate dehydrogenase (LDH) 346(H) 100 - 250 Units/L Blood 09/02/2025 3:49 AM CDT 09/02/2025 4:15 AM CDT us Hay Barton MD LAB BLOOD ORDERABLE S Final Result [facility] [address] Department [place] [address] * (ABNORMAL) Comprehensive metabolic panel (09/02/2025 3:49 AM CDT) Sodium 142 135 - 145 mmol/L Potassium, pl 3.3 3.3 - 4.9 mmol/L [facility] Chloride 99 97 - 110 mmol/L [facility] CO2 28 22 - 32 mmol/L [facility] Anion gap 15 2 - 15 mmol/L [facility] BUN 85(H) 6 - 25 mg/dL [facility] Comment:Dialysis Patient Creatinine 3.86(H) 0.80 - 1.30 mg/dL [facility] Comment:Dialysis Patient Glucose 145 70 - 199 mg/dL [facility] Comment: Interpretive Data Fasting glucose >/= 126 [...] interpretive data was last revised 2022. Calcium 7.8(L) 8.5 - 10.3 mg/dL [facility] Bilirubin, total 1.2 0.1 - 1.2 mg/dL [facility] Protein, pl 6.2(L) 6.5 - 8.5 g/dL [facility] Albumin 3.3(L) 3.5 - 5.0 g/dL [facility] Alk phos 122 40 - 130 Units/L [facility] ALT 383(H) 7 - 55 Units/L [facility] AST 145(H) 10 - 50 Units/L [facility] Blood 09/02/2025 3:49 AM CDT 09/02/2025 4:15 AM CDT Hay Barton MD LAB BLOOD ORDERABLE S Final Result Performing Organization Address [facility] Co de Phone Number [facility] [address] [place] [address] * POCT glucose (09/02/2025 3:36 AM CDT) Glucose, POC 164 70 - 199 mg/dL Comment: For Glucose values <35 mg/dl when Hematocrit is >60 mg/dl,the test may not accurately detect significant hypoglycemia,and testing in the Laboratory should be considered if clinically indicated. Blood 09/02/2025 3:36 AM CDT 09/02/2025 3:36 AM CDT Neisha Moya MD LAB POCT ORDERABLES - FLOYD CE Final Result Performing Organization Address [facility] Co de Phone Number [facility] [address] [facility] [place] [address] * POCT glucose (09/01/2025 11:25 PM CDT) Glucose, POC 184 70 - 199 mg/dL Comment: For Glucose values <35 mg/dl when Hematocrit is >60 mg/dl,the test may not accurately detect significant hypoglycemia,and testing in the Laboratory should be considered if clinically indicated. Blood 09/01/2025 11:2 5 PM CDT 09/01/2025 11:25 PM CDT Neisha Moya MD LAB POCT ORDERABLES - FLOYD CE Final Result Performing Organization Address [facility] Co de Phone Number [facility] [address] [place] [address] * POCT glucose (09/01/2025 7:18 PM CDT) Glucose, POC 172 70 - 199 mg/dL Comment: For Glucose values <35 mg/dl when Hematocrit is >60 mg/dl,the test may not accurately detect significant hypoglycemia,and testing in the Laboratory should be considered if clinically indicated. Blood 09/01/2025 7:18 PM CDT 09/01/2025 7:18 PM CDT Neisha Moya MD LAB POCT ORDERABLES - FLOYD CE Final Result Performing Organization Address [facility] de Phone Number [place] [address] [facility] [place] [address] * POCT glucose (09/01/2025 5:10 PM CDT) Glucose, POC 130 70 - 199 mg/dL Comment: For Glucose values <35 mg/dl when Hematocrit is >60 mg/dl,the test may not accurately detect significant hypoglycemia,and testing in the Laboratory should be considered if clinically indicated. Blood 09/01/2025 5:10 PM CDT 09/01/2025 5:10 PM CDT Result [facility] Neisha Moya MD LAB POCT ORDERABLES - FLOYD CE Final Result Performing Organization Address [facility] de Phone Number [facility] [address] [facility] [place] [address] * POCT glucose (09/01/2025 11:30 AM CDT) Glucose, POC 146 70 - 199 mg/dL Comment: For Glucose values <35 mg/dl when Hematocrit is >60 mg/dl,the test may not accurately detect significant hypoglycemia,and testing in the Laboratory should be considered if clinically indicated. Blood 09/01/2025 11:3 0 AM CDT 09/01/2025 11:30 AM CDT Result [facility] us Neisha Moya MD LAB POCT ORDERABLES - FLOYD CE Final Result [facility] [address] Department [place] [address] * US Liver (09/01/2025 11:11 AM CDT) Anatomical Region Laterality Modality Abdomen N/A Ultrasound 09/01/2025 1:54 PM CDT Impressions 09/01/2025 1:54 PM CDT Increased echogenicity of the liver consistent with hepatic steatosis. Electronically signed by: Aram Sethi M.D. Narrative 09/01/2025 1:54 PM CDT EXAMINATION: LIVER SONOGRAM HISTORY: Abnormal liver function tests. COMPARISON: None FINDINGS: Liver: The liver is normal in size. The echotexture is normal. The echogenicity is increased. There is no surface nodularity. No focal solid lesions are visualized. Gallbladder: The gallbladder is normal in size. There is sludge but no stones within the gallbladder. There is no gallbladder wall thickening. Bile Duct: There is no intrahepatic bile duct dilatation. The diameter of the common duct is 5 mm in the proximal segment. Other Findings: There is no ascites. Procedure Note Aram Sethi MD - 09/01/2025 EXAMINATION: LIVER SONOGRAM HISTORY: Abnormal liver function tests. COMPARISON: None FINDINGS: Liver: The liver is normal in size. The echotexture is normal. The echogenicity is increased. There is no surface nodularity. No focal solid lesions are visualized. Gallbladder: The gallbladder is normal in size. There is sludge but no stones within the gallbladder. There is no gallbladder wall thickening. Bile Duct: There is no intrahepatic bile duct dilatation. The diameter of the common duct is 5 mm in the proximal segment. Other Findings: There is no ascites. IMPRESSION: Increased echogenicity of the liver consistent with hepatic steatosis. Electronically signed by: Aram Sethi M.D. us Hay Barton MD IMG US PROCEDURES F inal Result * Iron profile - Add on lab test (09/01/2025 10:50 AM CDT) Acceptable Yes Blood 09/01/2025 10:5 0 AM CDT 09/01/2025 10:50 AM CDT Narrative [facility] - 09/01/2025 10:50 AM CDT Name of Test->Iron profile Neisha Moya MD LAB BLOOD ORDERABLES Final Result Performing Organization Address [facility] Co de Phone Number [facility] [address] [facility] [place] [address] * Ferritin - Add on lab test (09/01/2025 10:50 AM CDT) Acceptable Yes Blood 09/01/2025 10:5 0 AM CDT 09/01/2025 10:50 AM CDT Narrative [facility] - 09/01/2025 10:50 AM CDT Name of Test->Ferritin Neisha Moya MD LAB BLOOD ORDERABLES Final Result Performing Organization Address [facility] Co de Phone Number [facility] [address] [facility] [place] [address] * XR Chest 1 View (09/01/2025 10:30 AM CDT) Anatomical Region Laterality Modality Body, Chest N/A Computed Radiogr aphy 09/01/2025 10:5 9 AM CDT Impressions 09/01/2025 10:59 AM CDT Comparison 08/31/2025. Right internal jugular vein central venous catheter tip is in superior vena cava. A left chest wall transvenous pacer device is in unchanged configuration. Streaky opacities throughout the lungs are unchanged which may represent atelectasis or pneumonia or pulmonary edema. There is no pneumothorax. The heart size is unchanged. Electronically signed by: Aram Sethi M.D. Narrative 09/01/2025 10:59 AM CDT EXAMINATION: 1 view chest radiograph Procedure Note Aram Sethi MD - 09/01/2025 EXAMINATION: 1 view chest radiograph IMPRESSION: Comparison 08/31/2025. Right internal jugular vein central venous catheter tip is in superior vena cava. A left chest wall transvenous pacer device is in unchanged configuration. Streaky opacities throughout the lungs are unchanged which may represent atelectasis or pneumonia or pulmonary edema. There is no pneumothorax. The heart size is unchanged. Electronically signed by: Aram Sethi M.D. us Eda ALBARR[facility] IMG XR PROCEDURES Final Res ult * MS INSJ NON-TUNNELED CENTRAL VENOUS CATH AGE 3 YR/> (09/01/2025 10:17 AM CDT) Narrative Eda Wilkerson PA - 09/01/2025 10:17 AM CDT Eda Wilkerson PA 09/01/2025 10:17 AM Central Line Insertion Date/Time: 09/01/2025 10:17 AM Performed by: Eda Wilkerson PA Authorized by: Eda Wilkerson PA [place] Protocol: RN Notified of Procedure: yes Informed consent: Risks, benefits, alternatives discussed and patient/medical representative/guardian agrees and accepts Patient's stated name/ matches armband: Yes Consent form signed, dated, timed; matches correct patient, intended procedure and site: Yes Imaging: Pertinent imaging reviewed, correctly oriented and match to patient identifiers Supplies, devices and special equipment are available: yes Site/side marked: yes Immediately prior to the procedure a time out was called: a verbal verification by the procedure participants confirmed correct patient identity, correct site/side marked and visible (if applicable); agreement on procedure to be done; and correct patient positioning Have non- routine considerations been assessed?: Yes Indications: Dialysis Anesthesia (see MAR for exact dosage) Anesthesia method: Local infiltration Local anesthetic: Lidocaine 1% Patient position: Trendelenburg Skin preparation: Skin prepped with 2% chlorhexidine Provider preparation: Cap, full body drape, gloves, gown, handwashing and mask Location: Right internal jugular Ultrasound guidance: Used for needle insertion, landmarks identified, sterile probe cover used, pre-procedure diagnostic and real-time needle guidance Assessment: Blood return through all ports, free fluid flow and placement verified by x-ray Catheter type: Dialysis catheter Catheter placed through introducer: Single Catheter size: 13. Needle inserted, vein idenitified then guidewire inserted easily into vein: Yes Number of attempts: 1 Successful placement: Yes Catheter length (cm): 15 Line securement: Line sutured and dressing applied Patient tolerance: Patient tolerated the procedure well with no immediate complications Complications: None Post Procedure Debrief: All guidewires, needles, sponges or other items are accounted for: yes us Eda [facility] IN CLINIC/BEDSIDE ORDERABLE S Final Result * Hepatitis panel, acute Blood (09/01/2025 9:43 AM CDT) Hep A IgM Nonreactive Nonreactive Comment: Interpretive Data: If Hep A IgM Ab is reported as Equivocal, a new sample should be drawn in two weeks for testing. Current interpretive data was last revised on 20. Hep B core IgM Nonreactive Nonreactive [facility] SYSTEM Comment: Interpretive Data If HepB Core IgM Ab is reported as Equivocal, a new sample should be drawn in two weeks for testing. Current interpretive data was last revised on 20. Hep C Ab Nonreactive Nonreactive [facility] Comment: Interpretive Data Nonreactive: Antibodies to HCV not detected. Does NOT exclude the possibility of recent exposure to HCV. Equivocal: Equivocal for HCV antibodies. Supplemental molecular testing will be automatically performed to determine infection status in accordance with current CDC screening recommendations. Reactive: Positive for HCV antibodies. This may represent current or past HCV infection. Supplemental molecular testing will be automatically performed to determine current infection status in accordance with current CDC screening recommendations. Interpretive data was last revised on 2020. HepBsAg Nonreactive Nonreactive [facility] Blood 09/01/2025 9:43 AM CDT 09/01/2025 10:24 AM CDT Burt Leonard MD LAB MICROBIOLOGY - GENERAL DANTE URBINA Final Result [facility] [address] Department [place] [address] * Magnesium - Add on lab test (09/01/2025 8:00 AM CDT) [facility] Acceptable Yes Blood 09/01/2025 8:00 AM CDT 09/01/2025 9:07 AM CDT Narrative [facility] - 09/01/2025 9:07 AM CDT Name of Test->Magnesium Neisha Moya MD LAB BLOOD ORDERABLES Final Result Performing Organization Address [facility] Co de Phone Number [facility] [address] Department [place] [address] * (ABNORMAL) POCT glucose (09/01/2025 7:40 AM CDT) [facility] Glucose, POC 206(H) 70 - 199 mg/dL Comment: For Glucose values <35 mg/dl when Hematocrit is >60 mg/dl,the test may not accurately detect significant hypoglycemia,and testing in the Laboratory should be considered if clinically indicated. Blood 09/01/2025 7:40 AM CDT 09/01/2025 7:40 AM CDT Neisha Moya MD LAB POCT ORDERABLES - FLOYD CE Final Result Performing Organization Address [facility] Co de Phone Number [facility] [address] [place] [address] * (ABNORMAL) eGFR (09/01/2025 5:52 AM CDT) [facility] eGFR 9(L) >=60 mL/min/1. 73 m2 Comment: Interpretive Data [...] interpretive data was last reviewed 2021. Blood 09/01/2025 5:52 AM CDT 09/01/2025 6:10 AM CDT us Neisha Moya MD LAB BLOOD ORDERABLES Final Result [facility] [address] Department [place] [address] * (ABNORMAL) Differential, auto (09/01/2025 5:52 AM CDT) Neutrophil abs 3.45 1.50 - 6.50 K/cumm Imm gran abs 0.03 0.00 - 0.10 K/cumm [facility] Lymphocyte abs 0.57(L) 0.80 - 3.30 K/cumm [facility] Monocyte abs 0.49 0.20 - 0.80 K/cumm [facility] Eosinophil abs 0.15 0.00 - 0.50 K/cumm [facility] Basophil abs 0.01 0.00 - 0.10 K/cumm [facility] Neutrophil pct 73.5 % [facility] Comment: Interpretive Data Percent cell count reference ranges are not reported, since discordance with absolute values may lead to misinterpretation of CBC data. Current Interpretive Data was last revised on 2018. Imm gran pct 0.6 % [facility] Comment: Interpretive Data Percent cell count reference ranges are not reported, since discordance with absolute values may lead to misinterpretation of CBC data. Current Interpretive Data was last revised on 2018. Lymphocyte pct 12.1 % [facility] Comment: Interpretive Data Percent cell count reference ranges are not reported, since discordance with absolute values may lead to misinterpretation of CBC data. Current Interpretive Data was last revised on 2018. Monocyte pct 10.4 % [facility] Comment: Interpretive Data Percent cell count reference ranges are not reported, since discordance with absolute values may lead to misinterpretation of CBC data. Current Interpretive Data was last revised on 2018. Eosinophil pct 3.2 % [facility] Comment: Interpretive Data Percent cell count reference ranges are not reported, since discordance with absolute values may lead to misinterpretation of CBC data. Current Interpretive Data was last revised on 2018. Basophil pct 0.2 % [facility] Comment: Interpretive Data Percent cell count reference ranges are not reported, since discordance with absolute values may lead to misinterpretation of CBC data. Current Interpretive Data was last revised on 2018. Blood 09/01/2025 5:52 AM CDT 09/01/2025 6:11 AM CDT us Neisha Moya MD LAB BLOOD ORDERABLES Final Result [facility] [address] Department [employer] [place], [place] [id number] * (ABNORMAL) Iron profile w/ IBC (09/01/2025 5:52 AM CDT) [facility] Iron 16(L) 50 - 150 mcg/dL TIBC 330 250 - 400 mcg/dL [facility] Transferrin saturation 5(L) 20 - 50 % [facility] Blood 09/01/2025 5:52 AM CDT 09/01/2025 6:10 AM CDT Neisha Moya MD LAB BLOOD ORDERABLES Final Result [facility] [address] Department of [employer] [place], [place] [id number] * (ABNORMAL) CBC with auto differential (09/01/2025 5:52 AM CDT) [facility] WBC 4.70 3.80 - 9.90 K/cumm Hgb 8.3(L) 13.0 - 17.5 g/dL [facility] Hct 25.2(L) 38.9 - 50.3 % [facility] Plt 225 150 - 400 K/cumm [facility] MPV 10.7 9.1 - 12.3 fL [facility] RBC 3.05(L) 4.30 - 5.80 M/cumm [facility] MCV 82.6 81.3 - 96.4 fL [facility] MCH 27.2 27.1 - 33.3 pg [facility] MCHC 32.9 32.3 - 35.7 g/dL [facility] RDW CV 15.4(H) 11.1 - 14.9 % [facility] RDW SD 45.7 35.7 - 48.1 fL [facility] NRBC abs 0.36(H) 0.00 - 0.01 K/cumm [facility] Blood 09/01/2025 5:52 AM CDT 09/01/2025 6:11 AM CDT us Hay Barton MD LAB BLOOD ORDERABLE S Final Result [facility] [address] [facility] [place], [place] [id number] * (ABNORMAL) Magnesium (09/01/2025 5:52 AM CDT) [facility] Magnesium 3.1(H) 1.4 - 2.5 mg/dL Blood 09/01/2025 5:52 AM CDT 09/01/2025 6:10 AM CDT Neisha Moya MD LAB BLOOD ORDERABLES Final Result [facility] [address] [place] [address] * Ferritin (09/01/2025 5:52 AM CDT) [facility] Ferritin 44 30 - 400 ng/mL Blood 09/01/2025 5:52 AM CDT 09/01/2025 6:10 AM CDT Neisha Moya MD LAB BLOOD ORDERABLES Final Result [facility] [address] Department [place] [address] * (ABNORMAL) Comprehensive metabolic panel (09/01/2025 5:52 AM CDT) [facility] Sodium 139 135 - 145 mmol/L Potassium, pl 2.8(L) 3.3 - 4.9 mmol/L [facility] Chloride 95(L) 97 - 110 mmol/L [facility] CO2 21(L) 22 - 32 mmol/L [facility] Anion gap 23(H) 2 - 15 mmol/L [facility] BUN 147(H) 6 - 25 mg/dL [facility] Creatinine 6.02(H) 0.80 - 1.30 mg/dL [facility] Glucose 170 70 - 199 mg/dL [facility] Comment: Interpretive Data Fasting glucose >/= 126 [...] interpretive data was last revised 2022. Calcium 7.2(L) 8.5 - 10.3 mg/dL [facility] Bilirubin, total 1.0 0.1 - 1.2 mg/dL [facility] Protein, pl 6.1(L) 6.5 - 8.5 g/dL [facility] Albumin 3.3(L) 3.5 - 5.0 g/dL [facility] Alk phos 124 40 - 130 Units/L [facility] ALT 498(H) 7 - 55 Units/L [facility] AST 241(H) 10 - 50 Units/L [facility] Blood 09/01/2025 5:52 AM CDT 09/01/2025 6:10 AM CDT Hay Barton MD LAB BLOOD ORDERABLE S Final Result Performing Organization Address [facility] Co de Phone Number [facility] [address] [place] [address] * (ABNORMAL) POCT glucose (09/01/2025 3:38 AM CDT) Glucose, POC 210(H) 70 - 199 mg/dL Comment: For Glucose values <35 mg/dl when Hematocrit is >60 mg/dl,the test may not accurately detect significant hypoglycemia,and testing in the Laboratory should be considered if clinically indicated. Blood 09/01/2025 3:38 AM CDT 09/01/2025 3:38 AM CDT Neisha Moya MD LAB POCT ORDERABLES - FLOYD CE Final Result Performing Organization Address [facility] de Phone Number [facility] [address] [place] [address] * POCT glucose (08/31/2025 11:44 PM CDT) Glucose, POC 198 70 - 199 mg/dL Comment: For Glucose values <35 mg/dl when Hematocrit is >60 mg/dl,the test may not accurately detect significant hypoglycemia,and testing in the Laboratory should be considered if clinically indicated. Blood 08/31/2025 11:4 4 PM CDT 08/31/2025 11:44 PM CDT us Neisha Moya MD LAB POCT ORDERABLES - FLOYD CE Final Result Performing Organization Address [facility] Co de Phone Number [facility] [address] [facility] [place] [address] * (ABNORMAL) POCT glucose (08/31/2025 7:46 PM CDT) Glucose, POC 209(H) 70 - 199 mg/dL Comment: For Glucose values <35 mg/dl when Hematocrit is >60 mg/dl,the test may not accurately detect significant hypoglycemia,and testing in the Laboratory should be considered if clinically indicated. Blood 08/31/2025 7:46 PM CDT 08/31/2025 7:46 PM CDT Neisha Moya MD LAB POCT ORDERABLES - FLOYD CE Final Result Performing Organization Address [facility] Co de Phone Number [facility] [address] [facility] [place] [address] * (ABNORMAL) POCT glucose (08/31/2025 4:47 PM CDT) Glucose, POC 222(H) 70 - 199 mg/dL Comment: For Glucose values <35 mg/dl when Hematocrit is >60 mg/dl,the test may not accurately detect significant hypoglycemia,and testing in the Laboratory should be considered if clinically indicated. Blood 08/31/2025 4:47 PM CDT 08/31/2025 4:47 PM CDT Neisha Moya MD LAB POCT ORDERABLES - FLOYD CE Final Result Performing Organization Address [facility] Co de Phone Number [facility] [address] [place] [address] * ECG 12 lead (08/31/2025 3:14 PM CDT) 08/31/2025 3:14 PM CDT Narrative [facility] - 09/01/2025 7:33 PM CDT Vent Rate: 62 bpm RR Interval: 966 msec MS Interval: 310 msec QRS Duration: 198 msec QT Interval: 475 msec QTC Interval: 479 msec P-R-T [place]: -88 - 126 - -30 degrees IMPRESSION: ELECTRONIC ATRIAL PACEMAKER RIGHT BUNDLE BRANCH BLOCK LEFT POSTERIOR FASCICULAR BLOCK ABNORMAL ECG Electronically Signed By: Colton Schafer [facility] Card us Paolo Meadows MD ECG ORDERABLES Magda l Result [employer] [facility] * (ABNORMAL) eGFR (08/31/2025 12:47 PM CDT) eGFR 10(L) >=60 mL/min/1. 73 m2 Comment: Interpretive Data [...] interpretive data was last reviewed 2021. Blood 08/31/2025 12:4 7 PM CDT 08/31/2025 1:46 PM CDT us Neisha Moya MD LAB BLOOD ORDERABLES Final Result [facility] [address] Department [place] [address] * (ABNORMAL) Basic metabolic panel (08/31/2025 12:47 PM CDT) Sodium 140 135 - 145 mmol/L Potassium, pl 3.0(L) 3.3 - 4.9 mmol/L [facility] Chloride 97 97 - 110 mmol/L [facility] CO2 15(L) 22 - 32 mmol/L [facility] Anion gap 28(H) 2 - 15 mmol/L [facility] BUN 138(H) 6 - 25 mg/dL [facility] Creatinine 5.69(H) 0.80 - 1.30 mg/dL [facility] Glucose 149 70 - 199 mg/dL [facility] Comment: Interpretive Data Fasting glucose >/= 126 [...] interpretive data was last revised 2022. Calcium 7.8(L) 8.5 - 10.3 mg/dL [facility] Blood 08/31/2025 12:4 7 PM CDT 08/31/2025 1:46 PM CDT Neisha Moya MD LAB BLOOD ORDERABLES Final Result [facility] [address] Department [place] [address] * POCT glucose (08/31/2025 11:36 AM CDT) [facility] Signature Glucose, POC 182 70 - 199 mg/dL Comment: For Glucose values <35 mg/dl when Hematocrit is >60 mg/dl,the test may not accurately detect significant hypoglycemia,and testing in the Laboratory should be considered if clinically indicated. Blood 08/31/2025 11:3 6 AM CDT 08/31/2025 11:36 AM CDT Neisha Moya MD LAB POCT ORDERABLES - FLOYD CE Final Result Performing Organization Address City/[facility]/ZIP Co de Phone Number [facility] [address] [place] [address] * (ABNORMAL) Urinalysis reflex to microscopic and culture Urine (08/31/2025 10:03 AM CDT) Color, ur Yellow Yellow Clarity, ur Clear Clear [facility] Specific gravity, ur 1.014 1.003 - 1.030 [facility] pH, urine 5.0 [facility] Comment: Interpretive Data U rine pH is affected by diet, medications, systemic acid-base disturbances, and renal tubular function. pH may affect urinary stone formation. For example, urine pH below 6.0 may help reduce the tendency for calcium phosphate stones and pH greater than 6.0 may reduce the tendency for uric acid stone formation. Source: [facility] Current Interpretive Data was last revised on 2017 Protein, ur ql Trace Negative [facility] Glucose, ur ql Negative Negative [facility] Ketones, ur Trace Negative [facility] Bilirubin, ur Negative Negative [facility] Blood, ur 1+(A) Negative [facility] Urobilinogen, ur <2.0 <2.0 mg/dL [facility] Nitrite, ur Negative Negative [facility] Leukocyte esterase, ur 2+(A) Negative [facility] UA reflex comment Reflex to microscopic UA will be performed. [facility] Urine 08/31/2025 10:0 3 AM CDT 08/31/2025 10:03 AM CDT us Neisha Moya MD LAB MICROBIOLOGY - GENERAL ORDERABLES Final Result [facility] [address] [place] [address] * (ABNORMAL) Urinalysis, microscopic only (08/31/2025 10:03 AM CDT) WBC, ur 6-10(A) 0 - 5 /HPF RBC, ur 11-20(A) 0 - 2 /HPF [facility] Bacteria, ur Trace(A) [facility] Mucous, ur Present(A) [facility] Hyaline casts, ur 11-20(A) 0 - 10 /LPF [facility] Culture Reflex Comment Reflex conditions for urine culture (WBC >10) not met. [facility] Urine 08/31/2025 10:0 3 AM CDT 08/31/2025 10:06 AM CDT us Neisha Moya MD LAB URINE ORDERABLES Final Result [facility] [address] Department [place] [address] * XR Chest 1 Vw (08/31/2025 9:55 AM CDT) Anatomical Region Laterality Modality Body, Chest N/A Computed Radiogr aphy 08/31/2025 10:0 4 AM CDT Impressions 08/31/2025 10:04 AM CDT The current study is compared with the prior radiograph dated 02/07/2025 Left subclavian approach pacemaker device is present with leads in the right atrium and right ventricle. Overall mildly worsening aeration with increasing patchy opacification of the left more so than right lung base, favor combination of atelectasis and small to moderate left pleural effusion. Mild pulmonary edema. No pneumothorax. Stable cardiac and mediastinal contours. 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 Overall mildly worsening aeration with increasing patchy opacification of the left more so than right lung base, favor combination of atelectasis and small to moderate left pleural effusion. Mild pulmonary edema. No pneumothorax. Stable cardiac and mediastinal contours. Electronically signed by: Viral Mcallister MD us Burt Leonard MD IMG XR PROCEDURES Final Result * Lactate (08/31/2025 9:17 AM CDT) Lactate 1.8 0.7 - 2.0 mmol/L Blood 08/31/2025 9:17 AM CDT 08/31/2025 9:57 AM CDT us Neisha Moya MD LAB BLOOD ORDERABLES Final Result [facility] [address] [facility] [place] [address] * (ABNORMAL) eGFR (08/31/2025 9:17 AM CDT) eGFR 9(L) >=60 mL/min/1. 73 m2 Comment: Interpretive Data [...] interpretive data was last reviewed 2021. Blood 08/31/2025 9:17 AM CDT 08/31/2025 10:18 AM CDT Neisha Moya MD LAB BLOOD ORDERABLES Final Result [facility] [address] Department [place] [address] * (ABNORMAL) Differential, auto (08/31/2025 9:17 AM CDT) Neutrophil abs 4.97 1.50 - 6.50 K/cumm Imm gran abs 0.06 0.00 - 0.10 K/cumm [facility] Lymphocyte abs 0.53(L) 0.80 - 3.30 K/cumm [facility] Monocyte abs 0.45 0.20 - 0.80 K/cumm [facility] Eosinophil abs 0.06 0.00 - 0.50 K/cumm [facility] Basophil abs 0.01 0.00 - 0.10 K/cumm [facility] Neutrophil pct 81.7 % [facility] Comment: Interpretive Data Percent cell count reference ranges are not reported, since discordance with absolute values may lead to misinterpretation of CBC data. Current Interpretive Data was last revised on 2018. Imm gran pct 1.0 % [facility] Comment: Interpretive Data Percent cell count reference ranges are not reported, since discordance with absolute values may lead to misinterpretation of CBC data. Current Interpretive Data was last revised on 2018. Lymphocyte pct 8.7 % [facility] Comment: Interpretive Data Percent cell count reference ranges are not reported, since discordance with absolute values may lead to misinterpretation of CBC data. Current Interpretive Data was last revised on 2018. Monocyte pct 7.4 % [facility] Comment: Interpretive Data Percent cell count reference ranges are not reported, since discordance with absolute values may lead to misinterpretation of CBC data. Current Interpretive Data was last revised on 2018. Eosinophil pct 1.0 % [facility] Comment: Interpretive Data Percent cell count reference ranges are not reported, since discordance with absolute values may lead to misinterpretation of CBC data. Current Interpretive Data was last revised on 2018. Basophil pct 0.2 % [facility] Comment: Interpretive Data Percent cell count reference ranges are not reported, since discordance with absolute values may lead to misinterpretation of CBC data. Current Interpretive Data was last revised on 2018. Blood 08/31/2025 9:17 AM CDT 08/31/2025 10:02 AM CDT Hay Barton MD LAB BLOOD ORDERABLE S Final Result Performing Organization Address [facility] Co de Phone Number [facility] [address] [facility] [place], [place] [id number] * (ABNORMAL) CBC with auto differential (08/31/2025 9:17 AM CDT) WBC 6.08 3.80 - 9.90 K/cumm Hgb 8.4(L) 13.0 - 17.5 g/dL [facility] Hct 26.1(L) 38.9 - 50.3 % [facility] Plt 239 150 - 400 K/cumm [facility] MPV 10.5 9.1 - 12.3 fL [facility] RBC 3.14(L) 4.30 - 5.80 M/cumm [facility] MCV 83.1 81.3 - 96.4 fL [facility] MCH 26.8(L) 27.1 - 33.3 pg [facility] MCHC 32.2(L) 32.3 - 35.7 g/dL [facility] RDW CV 15.6(H) 11.1 - 14.9 % [facility] RDW SD 47.0 35.7 - 48.1 fL [facility] NRBC abs 0.36(H) 0.00 - 0.01 K/cumm [facility] Blood 08/31/2025 9:17 AM CDT 08/31/2025 10:02 AM CDT Hay Barton MD LAB BLOOD ORDERABLE S Final Result Performing Organization Address City/[facility]/ZIP Co de Phone Number [facility] [address] [facility] [place], [place] [id number] * (ABNORMAL) Hepatic function panel (08/31/2025 9:17 AM CDT) Bilirubin, total 1.4(H) 0.1 - 1.2 mg/dL Bilirubin, direct 0.9(H) 0.1 - 0.3 mg/dL [facility] Protein, pl 6.8 6.5 - 8.5 g/dL [facility] Albumin 3.5 3.5 - 5.0 g/dL [facility] Alk phos 146(H) 40 - 130 Units/L [facility] ALT 666(H) 7 - 55 Units/L [facility] AST 450(H) 10 - 50 Units/L [facility] Blood 08/31/2025 9:17 AM CDT 08/31/2025 10:02 AM CDT us Hay Barton MD LAB BLOOD ORDERABLE S Final Result [facility] [address] Department [place] [address] * (ABNORMAL) Basic metabolic panel (08/31/2025 9:17 AM CDT) Sodium 139 135 - 145 mmol/L Potassium, pl 3.3 3.3 - 4.9 mmol/L [facility] Chloride 93(L) 97 - 110 mmol/L [facility] CO2 16(L) 22 - 32 mmol/L [facility] Anion gap 30(H) 2 - 15 mmol/L [facility] BUN 140(H) 6 - 25 mg/dL [facility] Creatinine 6.20(H) 0.80 - 1.30 mg/dL [facility] Glucose 156 70 - 199 mg/dL [facility] Comment: Interpretive Data Fasting glucose >/= 126 [...] 2022. Calcium 8.2(L) 8.5 - 10.3 mg/dL [facility] Blood 08/31/2025 9:17 AM CDT 08/31/2025 10:02 AM CDT Neisha Moya MD LAB BLOOD ORDERABLES Final Result Performing Organization Address [facility] Co de Phone Number [facility] [address] [facility] [place] [address] * POCT glucose (08/31/2025 8:19 AM CDT) [facility] Glucose, POC 191 70 - 199 mg/dL Comment: For Glucose values <35 mg/dl when Hematocrit is >60 mg/dl,the test may not accurately detect significant hypoglycemia,and testing in the Laboratory should be considered if clinically indicated. Blood 08/31/2025 8:19 AM CDT 08/31/2025 8:19 AM CDT Neisha Moya MD LAB POCT ORDERABLES - FLOYD CE Final Result Performing Organization Address [facility] de Phone Number [facility] [address] [facility] [place] [address] * (ABNORMAL) Blood gas, arterial (08/31/2025 7:27 AM CDT) [facility] pH, Art 7.32(L) 7.35 - 7.45 Comment:Critical result call ed to and read back by marce Baker (rn_) on08/31/2025 07:47:45 CDT [id number] to _. PCO2, Arterial 33(L) 35 - 45 mmHg [facility] PO2, Arterial 25(C) 83 - 108 mmHg [facility] Comment:Critical result call ed to and read back by Marce Baker (rn) on 08/31/2025 07:48:45 CDT to [id number]. HCO3 Art (Calculated) 17(L) 20 - 30 mmol/L [facility] BE, art -8 mmol/L [facility] Comment: Interpretive Data No Reference Range Established Current Interpretive Data was last revised on 2017 O2 Sat Art (Calculated) 39(L) 94 - 98 % [facility] Blood 08/31/2025 7:27 AM CDT 08/31/2025 7:39 AM CDT us Hay Barton MD LAB BLOOD ORDERABLE S Final Result Performing Organization Address [facility] Co de Phone Number [facility] [address] [place] [address] * (ABNORMAL) eGFR (08/31/2025 6:51 AM CDT) eGFR 9(L) >=60 mL/min/1. 73 m2 Comment: Interpretive Data [...] interpretive data was last reviewed 2021. Blood 08/31/2025 6:51 AM CDT 08/31/2025 7:03 AM CDT us Gabriela Mcfarlane MD LAB BLOOD ORDERABLES Final Res ult Performing Organization Address [facility]/ZIP Co de Phone Number [facility] [address] [place] [address] * (ABNORMAL) Differential, auto (08/31/2025 6:51 AM CDT) Pathologist [facility] Neutrophil abs 5.37 1.50 - 6.50 K/cumm Imm gran abs 0.07 0.00 - 0.10 K/cumm [facility] Lymphocyte abs 0.47(L) 0.80 - 3.30 K/cumm [facility] Monocyte abs 0.50 0.20 - 0.80 K/cumm [facility] Eosinophil abs 0.06 0.00 - 0.50 K/cumm [facility] Basophil abs 0.02 0.00 - 0.10 K/cumm [facility] Neutrophil pct 82.8 % [facility] Comment: Interpretive Data Percent cell count reference ranges are not reported, since discordance with absolute values may lead to misinterpretation of CBC data. Current Interpretive Data was last revised on 2018. Imm gran pct 1.1 % [facility] Comment: Interpretive Data Percent cell count reference ranges are not reported, since discordance with absolute values may lead to misinterpretation of CBC data. Current Interpretive Data was last revised on 2018. Lymphocyte pct 7.2 % [facility] Comment: Interpretive Data Percent cell count reference ranges are not reported, since discordance with absolute values may lead to misinterpretation of CBC data. Current Interpretive Data was last revised on 2018. Monocyte pct 7.7 % [facility] Comment: Interpretive Data Percent cell count reference ranges are not reported, since discordance with absolute values may lead to misinterpretation of CBC data. Current Interpretive Data was last revised on 2018. Eosinophil pct 0.9 % [facility] Comment: Interpretive Data Percent cell count reference ranges are not reported, since discordance with absolute values may lead to misinterpretation of CBC data. Current Interpretive Data was last revised on 2018. Basophil pct 0.3 % [facility] Comment: Interpretive Data Percent cell count reference ranges are not reported, since discordance with absolute values may lead to misinterpretation of CBC data. Current Interpretive Data was last revised on 2018. Blood 08/31/2025 6:51 AM CDT 08/31/2025 7:03 AM CDT us Gabriela Mcfarlane MD LAB BLOOD ORDERABLES Final Res ult [facility] [address] [place] [address] * Check Sample (08/31/2025 6:51 AM CDT) [facility] ABO Rh O Positive MBC HCLL OTHER 08/31/2025 6:51 AM CDT 08/31/2025 7:15 AM CDT us Neisha Moya MD LAB BLOOD ORDERABLES Final Result Performing Organization Address [facility] Co de Phone Number [facility] [address] [place] [address] MBC * (ABNORMAL) CBC with auto differential (08/31/2025 6:51 AM CDT) [facility] WBC 6.49 3.80 - 9.90 K/cumm Hgb 8.5(L) 13.0 - 17.5 g/dL [facility] Hct 27.2(L) 38.9 - 50.3 % [facility] Plt 239 150 - 400 K/cumm [facility] MPV 10.8 9.1 - 12.3 fL [facility] RBC 3.18(L) 4.30 - 5.80 M/cumm [facility] MCV 85.5 81.3 - 96.4 fL [facility] MCH 26.7(L) 27.1 - 33.3 pg [facility] MCHC 31.3(L) 32.3 - 35.7 g/dL [facility] RDW CV 15.6(H) 11.1 - 14.9 % [facility] RDW SD 47.9 35.7 - 48.1 fL [facility] NRBC abs 0.39(H) 0.00 - 0.01 K/cumm [facility] Blood 08/31/2025 6:51 AM CDT 08/31/2025 7:03 AM CDT us Gabriela Mcfarlane MD LAB BLOOD ORDERABLES Final Res ult Performing Organization Address City/[facility]/ZIP Co de Phone Number [facility] [address] Department [place] [address] * (ABNORMAL) Basic metabolic panel (08/31/2025 6:51 AM CDT) Sodium 141 135 - 145 mmol/L Potassium, pl 3.6 3.3 - 4.9 mmol/L [facility] Chloride 96(L) 97 - 110 mmol/L [facility] CO2 14(C) 22 - 32 mmol/L [facility] Comment:Critical result call ed to and read back by Shree Navarro RN on 08/31/25 0749 to [id number] Anion gap 31(H) 2 - 15 mmol/L [facility] BUN 137(H) 6 - 25 mg/dL [facility] Creatinine 6.30(H) 0.80 - 1.30 mg/dL [facility] Glucose 168 70 - 199 mg/dL [facility] Comment: Interpretive Data Fasting glucose >/= 126 [...] 2022. Calcium 8.2(L) 8.5 - 10.3 mg/dL [facility] Blood 08/31/2025 6:51 AM CDT 08/31/2025 7:03 AM CDT us Gabriela Mcfarlane MD LAB BLOOD ORDERABLES Final Res ult [facility] [address] Department [place] [address] * POCT glucose (08/31/2025 3:48 AM CDT) Glucose, POC 181 70 - 199 mg/dL Comment: For Glucose values <35 mg/dl when Hematocrit is >60 mg/dl,the test may not accurately detect significant hypoglycemia,and testing in the Laboratory should be considered if clinically indicated. Blood 08/31/2025 3:48 AM CDT 08/31/2025 3:48 AM CDT Christopher Kumari DO LAB POCT ORDERABLES - DEVICE Final Result Performing Organization Address [facility]/ZIP Co de Phone Number [facility] [address] [facility] [place] [address] * POCT glucose (08/30/2025 11:48 PM CDT) [facility] Glucose, POC 161 70 - 199 mg/dL Comment: For Glucose values <35 mg/dl when Hematocrit is >60 mg/dl,the test may not accurately detect significant hypoglycemia,and testing in the Laboratory should be considered if clinically indicated. Blood 08/30/2025 11:4 8 PM CDT 08/30/2025 11:48 PM CDT Christopher Kumari LAB POCT ORDERABLES - DEVICE Final Result Performing Organization Address City/[facility]/ZIP Co de Phone Number [facility] [address] [facility] [place] [address] * (ABNORMAL) eGFR (08/30/2025 10:07 PM CDT) [facility] eGFR 10(L) >=60 mL/min/1. 73 m2 Comment: Interpretive Data [...] interpretive data was last reviewed 2021. Blood 08/30/2025 10:0 7 PM CDT 08/30/2025 10:29 PM CDT us Christopher Kumari DO LAB BLOOD ORDERABLES F inal Result [facility] [address] Department [place] [address] * (ABNORMAL) Differential, auto (08/30/2025 10:07 PM CDT) Neutrophil abs 6.59(H) 1.50 - 6.50 K/cumm Imm gran abs 0.07 0.00 - 0.10 K/cumm [facility] Lymphocyte abs 0.33(L) 0.80 - 3.30 K/cumm [facility] Monocyte abs 0.39 0.20 - 0.80 K/cumm [facility] Eosinophil abs 0.02 0.00 - 0.50 K/cumm [facility] Basophil abs 0.01 0.00 - 0.10 K/cumm [facility] Neutrophil pct 88.9 % [facility] Comment: Interpretive Data Percent cell count reference ranges are not reported, since discordance with absolute values may lead to misinterpretation of CBC data. Current Interpretive Data was last revised on 2018. Imm gran pct 0.9 % [facility] Comment: Interpretive Data Percent cell count reference ranges are not reported, since discordance with absolute values may lead to misinterpretation of CBC data. Current Interpretive Data was last revised on 2018. Lymphocyte pct 4.5 % [facility] Comment: Interpretive Data Percent cell count reference ranges are not reported, since discordance with absolute values may lead to misinterpretation of CBC data. Current Interpretive Data was last revised on 2018. Monocyte pct 5.3 % [facility] Comment: Interpretive Data Percent cell count reference ranges are not reported, since discordance with absolute values may lead to misinterpretation of CBC data. Current Interpretive Data was last revised on 2018. Eosinophil pct 0.3 % [facility] Comment: Interpretive Data Percent cell count reference ranges are not reported, since discordance with absolute values may lead to misinterpretation of CBC data. Current Interpretive Data was last revised on 2018. Basophil pct 0.1 % [facility] Comment: Interpretive Data Percent cell count reference ranges are not reported, since discordance with absolute values may lead to misinterpretation of CBC data. Current Interpretive Data was last revised on 2018. Blood 08/30/2025 10:0 7 PM CDT 08/30/2025 10:12 PM CDT us Christopher Kumari DO LAB BLOOD ORDERABLES F inal Result [facility] [address] Department [place] [address] * (ABNORMAL) CBC with auto differential (08/30/2025 10:07 PM CDT) WBC 7.41 3.80 - 9.90 K/cumm Hgb 8.6(L) 13.0 - 17.5 g/dL [facility] Hct 27.3(L) 38.9 - 50.3 % [facility] Plt 239 150 - 400 K/cumm [facility] MPV 10.0 9.1 - 12.3 fL [facility] RBC 3.23(L) 4.30 - 5.80 M/cumm [facility] MCV 84.5 81.3 - 96.4 fL [facility] MCH 26.6(L) 27.1 - 33.3 pg [facility] MCHC 31.5(L) 32.3 - 35.7 g/dL [facility] RDW CV 15.2(H) 11.1 - 14.9 % [facility] RDW SD 46.5 35.7 - 48.1 fL [facility] NRBC abs 0.39(H) 0.00 - 0.01 K/cumm [facility] Blood 08/30/2025 10:0 7 PM CDT 08/30/2025 10:12 PM CDT [facility] LAB BLOOD ORDERABLES F inal Result Performing Organization Address [facility] Co de Phone Number [facility] [address] [facility] [place], [place] [id number] * (ABNORMAL) Protime-INR (08/30/2025 10:07 PM CDT) PT 34.0(H) 10.2 - 13.5 sec INR 3.08(H) 0.90 - 1.20 [facility] Comment: Interpretive data Oral anticoagulant therapeutic ranges: Venous thromboembolism prophylaxis or treatment: 2.0-3.0 CARDIOLOGY Standard range: 2.0-3.0 High-intensity range: 2.5-3.5 Refer to indication-specific guidelines for appropriate target ranges for prosthetic heart valve replacement. Current interpretive data was last revised on 2019. Blood 08/30/2025 10:0 7 PM CDT 08/30/2025 10:12 PM CDT [facility] [employer] Chalinos[employer] LAB BLOOD ORDERABLES F inal Result Performing Organization Address City/[facility] Co de Phone Number [facility] [address] [facility] [place], [place] [id number] * Type and screen (08/30/2025 10:07 PM CDT) Carly, indirect Negative ABO Rh O Positive [facility] Blood 08/30/2025 10:0 7 PM CDT 08/30/2025 10:33 PM CDT Narrative [facility] - 08/30/2025 11:53 PM CDT Has the patient had Daratumumab or Isatuximab in the past 6 months?->Unknown Christopher Jason Chalinosacha DO LAB BLOOD BANK TEST OR DERABLES Final Result [facility] [address] Department [place] [address] * (ABNORMAL) Comprehensive metabolic panel (08/30/2025 10:07 PM CDT) Sodium 140 135 - 145 mmol/L Potassium, pl 3.3 3.3 - 4.9 mmol/L [facility] Chloride 99 97 - 110 mmol/L [facility] CO2 9(C) 22 - 32 mmol/L [facility] Comment:Critical result call ed to and read back by JADE Waterman on 08/30/2025 0034 to [id number] Anion gap 32(H) 2 - 15 mmol/L [facility] BUN 126(H) 6 - 25 mg/dL [facility] Creatinine 5.88(H) 0.80 - 1.30 mg/dL [facility] Glucose 138 70 - 199 mg/dL [facility] Comment: Interpretive Data Fasting glucose >/= 126 [...] interpretive data was last revised 2022. Calcium 7.3(L) 8.5 - 10.3 mg/dL [facility] Bilirubin, total 1.6(H) 0.1 - 1.2 mg/dL [facility] Protein, pl 6.2(L) 6.5 - 8.5 g/dL [facility] Albumin 3.2(L) 3.5 - 5.0 g/dL [facility] Alk phos 139(H) 40 - 130 Units/L [facility] ALT 667(H) 7 - 55 Units/L [facility] AST 569(H) 10 - 50 Units/L [facility] Blood 08/30/2025 10:0 7 PM CDT 08/30/2025 10:12 PM CDT Christopher Kumari DO LAB BLOOD ORDERABLES F inal Result [facility] [address] Department [place] [address] * POCT glucose (08/30/2025 9:20 PM CDT) Glucose, POC 167 70 - 199 mg/dL Comment: For Glucose values <35 mg/dl when Hematocrit is >60 mg/dl,the test may not accurately detect significant hypoglycemia,and testing in the Laboratory should be considered if clinically indicated. Blood 08/30/2025 9:20 PM CDT 08/30/2025 9:20 PM CDT Christopher Kumari DO LAB POCT ORDERABLES - DEVICE Final Result Performing Organization Address City/[facility]/ZIP Co de Phone Number [facility] [address] Department [place] [address] * POCT glucose (07/18/2025 5:13 PM CDT) Glucose, POC 143 70 - 199 mg/dL Blood 07/18/2025 5:13 PM CDT 07/18/2025 5:13 PM CDT Delilah Adams MD PhD LAB POCT ORDERABLES - DEVICE Final Result [facility] [place] [address] * POCT glucose (07/18/2025 12:10 PM CDT) Glucose, POC 152 70 - 199 mg/dL Blood 07/18/2025 12:1 0 PM CDT 07/18/2025 12:10 PM CDT Delilah Adams MD PhD LAB POCT ORDERABLES - DEVICE Final Result Performing Organization Address City/[facility]/[place] [address] * (ABNORMAL) Hemoglobin and hematocrit (07/18/2025 10:02 AM CDT) [facility] Hgb 9.7(L) 13.0 - 17.5 g/dL Hct 31.1(L) 38.9 - 50.3 % [facility] Blood 07/18/2025 10:0 2 AM CDT 07/18/2025 10:14 AM CDT Result [facility] Светлана Stoll MERCHANDISING ASSISTANT LAB BLOOD ORDERABLES Final Result Performing Organization Address City/[facility]/ZIP Co de Phone Number [facility] [place] [address] * POCT glucose (07/18/2025 8:36 AM CDT) Glucose, POC 97 70 - 199 mg/dL Blood 07/18/2025 8:36 AM CDT 07/18/2025 8:36 AM CDT Result [facility] Delilah Adams MD PhD LAB POCT ORDERABLES - DEVICE Final Result Performing Organization Address City/[facility]/ZIP Co de Phone Number [facility] [place] [address] * (ABNORMAL) CBC without differential (07/18/2025 6:53 AM CDT) [facility] WBC 6.02 3.80 - 9.90 K/cumm Hgb 7.4(L) 13.0 - 17.5 g/dL [facility] Hct 22.9(L) 38.9 - 50.3 % [facility] Plt 250 150 - 400 K/cumm [facility] MPV 10.0 9.1 - 12.3 fL [facility] RBC 2.67(L) 4.30 - 5.80 M/cumm [facility] MCV 85.8 81.3 - 96.4 fL [facility] MCH 27.7 27.1 - 33.3 pg [facility] MCHC 32.3 32.3 - 35.7 g/dL [facility] RDW CV 14.1 11.1 - 14.9 % [facility] RDW SD 44.1 35.7 - 48.1 fL [facility] NRBC abs 0.00 0.00 - 0.01 K/cumm [facility] Blood 07/18/2025 6:53 AM CDT 07/18/2025 7:30 AM CDT Narrative [facility] - 07/18/2025 7:36 AM CDT 1 hour after transfusion of red blood cells is complete us Delilah Adams MD PhD LAB BLOOD ORDERABLES F inal Result Performing Organization Address City/[facility]/ZIP Co de Phone Number [facility] Department [place] [address] * Transfuse RBC (07/18/2025 6:02 AM CDT) Blood Delilah Adams MD PhD BLOOD TRANSFUSION ORDE CIARA Final Result [facility] Department [place] [address] * Prepare RBC: 1 Units (07/18/2025 1:24 AM CDT) [facility] Product code [id number] Unit Number [id number] [facility] Product Blood Type OPOS [facility] Dispense Status PRESUMED TRANSFUSED [facility] Blood 07/18/2025 1:24 AM CDT 07/18/2025 2:13 AM CDT Narrative [facility] - 07/18/2025 4:01 PM CDT Are special requirements needed? (All products are leukoreduced and CMV- safe)- >No Date required:-[id number] LRRBC # of [id number] Reasons:-Cardiovascular disease, Hgb <8 g/dL} us Delilah Adams MD PhD BLOOD BANK PRODUCT ORD ERABLES Final Result [facility] Department [place] [address] * (ABNORMAL) CBC without differential (07/17/2025 8:56 PM CDT) [facility] WBC 7.66 3.80 - 9.90 K/cumm Hgb 7.2(L) 13.0 - 17.5 g/dL [facility] Hct 23.5(L) 38.9 - 50.3 % [facility] Plt 295 150 - 400 K/cumm [facility] MPV 9.7 9.1 - 12.3 fL [facility] RBC 2.70(L) 4.30 - 5.80 M/cumm [facility] MCV 87.0 81.3 - 96.4 fL [facility] MCH 26.7(L) 27.1 - 33.3 pg [facility] MCHC 30.6(L) 32.3 - 35.7 g/dL [facility] RDW CV 14.3 11.1 - 14.9 % [facility] RDW SD 45.0 35.7 - 48.1 fL [facility] NRBC abs 0.00 0.00 - 0.01 K/cumm [facility] Blood 07/17/2025 8:56 PM CDT 07/17/2025 9:26 PM CDT Светлана Stoll MERCHANDISING ASSISTANT LAB BLOOD ORDERABLES Final Result Performing Organization Address [facility] de Phone Number [facility] [place] [address] * POCT glucose (07/17/2025 8:10 PM CDT) Glucose, POC 147 70 - 199 mg/dL Blood 07/17/2025 8:10 PM CDT 07/17/2025 8:10 PM CDT us Delilah Adams MD PhD LAB POCT ORDERABLES - DEVICE Final Result Performing Organization Address [facility] de Phone Number [facility] Department [place] [address] * POCT glucose (07/17/2025 5:21 PM CDT) Glucose, POC 115 70 - 199 mg/dL Blood 07/17/2025 5:21 PM CDT 07/17/2025 5:21 PM CDT us Delilah Adams MD PhD LAB POCT ORDERABLES - DEVICE Final Result Performing Organization Address [facility] de Phone Number [facility] Department [place] [address] * (ABNORMAL) POCT glucose (07/17/2025 11:33 AM CDT) Glucose, POC 201(H) 70 - 199 mg/dL Blood 07/17/2025 11:3 3 AM CDT 07/17/2025 11:33 AM CDT Delilah Adams MD PhD LAB POCT ORDERABLES - DEVICE Final Result [facility] Department [place] [address] * POCT glucose (07/17/2025 7:25 AM CDT) [facility] Glucose, POC 140 70 - 199 mg/dL Blood 07/17/2025 7:25 AM CDT 07/17/2025 7:25 AM CDT us Delilah Adams MD PhD LAB POCT ORDERABLES - DEVICE Final Result Performing Organization Address City/[facility] Co de Phone Number [facility] [place] [address] * (ABNORMAL) CBC without differential (07/17/2025 7:12 AM CDT) [facility] WBC 6.61 3.80 - 9.90 K/cumm Hgb 7.4(L) 13.0 - 17.5 g/dL [facility] Hct 24.1(L) 38.9 - 50.3 % [facility] Plt 317 150 - 400 K/cumm [facility] MPV 10.2 9.1 - 12.3 fL [facility] RBC 2.76(L) 4.30 - 5.80 M/cumm [facility] MCV 87.3 81.3 - 96.4 fL [facility] MCH 26.8(L) 27.1 - 33.3 pg [facility] MCHC 30.7(L) 32.3 - 35.7 g/dL [facility] RDW CV 14.3 11.1 - 14.9 % [facility] RDW SD 45.7 35.7 - 48.1 fL [facility] NRBC abs 0.00 0.00 - 0.01 K/cumm [facility] Blood 07/17/2025 7:12 AM CDT 07/17/2025 8:37 AM CDT us Светлана Stoll NP LAB BLOOD ORDERABLES Final Result Performing Organization Address City/[facility] Co de Phone Number [facility] [place] [address] * Type and screen (07/17/2025 12:53 AM CDT) Pathologist [facility] Carly, indirect Negative ABO Rh O Positive [facility] Blood 07/17/2025 12:5 3 AM CDT 07/17/2025 1:56 AM CDT Narrative [facility] - 07/17/2025 2:57 AM CDT Has the patient had Daratumumab or Isatuximab in the past 6 months?->Unknown Delilah Adams MD PhD LAB BLOOD BANK TEST OR DERABLES Final Result Performing Organization Address [facility] Co de Phone Number [facility] Department [place] [address] * Differential, auto (07/17/2025 12:52 AM CDT) [facility] Neutrophil abs 3.74 1.50 - 6.50 K/cumm Imm gran abs 0.03 0.00 - 0.10 K/cumm [facility] Lymphocyte abs 1.67 0.80 - 3.30 K/cumm [facility] Monocyte abs 0.36 0.20 - 0.80 K/cumm [facility] Eosinophil abs 0.39 0.00 - 0.50 K/cumm [facility] Basophil abs 0.05 0.00 - 0.10 K/cumm [facility] Neutrophil pct 59.8 % [facility] Comment: Interpretive Data Percent cell count reference ranges are not reported, since discordance with absolute values may lead to misinterpretation of CBC data. Current Interpretive Data was last revised on 2018. Imm gran pct 0.5 % [facility] Comment: Interpretive Data Percent cell count reference ranges are not reported, since discordance with absolute values may lead to misinterpretation of CBC data. Current Interpretive Data was last revised on 2018. Lymphocyte pct 26.8 % [facility] Comment: Interpretive Data Percent cell count reference ranges are not reported, since discordance with absolute values may lead to misinterpretation of CBC data. Current Interpretive Data was last revised on 2018. Monocyte pct 5.8 % [facility] Comment: Interpretive Data Percent cell count reference ranges are not reported, since discordance with absolute values may lead to misinterpretation of CBC data. Current Interpretive Data was last revised on 2018. Eosinophil pct 6.3 % [facility] Comment: Interpretive Data Percent cell count reference ranges are not reported, since discordance with absolute values may lead to misinterpretation of CBC data. Current Interpretive Data was last revised on 2018. Basophil pct 0.8 % [facility] Comment: Interpretive Data Percent cell count reference ranges are not reported, since discordance with absolute values may lead to misinterpretation of CBC data. Current Interpretive Data was last revised on 2018. Blood 07/17/2025 12:5 2 AM CDT 07/17/2025 1:49 AM CDT us Delilah Adams MD PhD LAB BLOOD ORDERABLES F inal Result [facility] Department [place] [address] * (ABNORMAL) CBC with auto differential (07/17/2025 12:52 AM CDT) WBC 6.24 3.80 - 9.90 K/cumm Hgb 7.8(L) 13.0 - 17.5 g/dL [facility] Hct 25.1(L) 38.9 - 50.3 % [facility] Plt 292 150 - 400 K/cumm [facility] MPV 10.1 9.1 - 12.3 fL [facility] RBC 2.86(L) 4.30 - 5.80 M/cumm [facility] MCV 87.8 81.3 - 96.4 fL [facility] MCH 27.3 27.1 - 33.3 pg [facility] MCHC 31.1(L) 32.3 - 35.7 g/dL [facility] RDW CV 14.0 11.1 - 14.9 % [facility] RDW SD 44.7 35.7 - 48.1 fL [facility] NRBC abs 0.00 0.00 - 0.01 K/cumm [facility] Blood 07/17/2025 12:5 2 AM CDT 07/17/2025 1:49 AM CDT Delilah Adams MD PhD LAB BLOOD ORDERABLES F inal Result Performing Organization Address City/[facility]/ZIP Co de Phone Number [facility] Department [place] [address] * (ABNORMAL) eGFR (07/16/2025 11:34 PM CDT) [...] PhD LAB BLOOD ORDERABLES F inal Result [facility] [place] [address] * (ABNORMAL) CBC without differential (07/16/2025 11:34 PM CDT) [facility] WBC 6.37 3.80 - 9.90 K/cumm Hgb 7.4(L) 13.0 - 17.5 g/dL [facility] Hct 24.8(L) 38.9 - 50.3 % [facility] Plt 300 150 - 400 K/cumm [facility] MPV 9.9 9.1 - 12.3 fL [facility] RBC 2.76(L) 4.30 - 5.80 M/cumm [facility] MCV 89.9 81.3 - 96.4 fL [facility] MCH 26.8(L) 27.1 - 33.3 pg [facility] MCHC 29.8(L) 32.3 - 35.7 g/dL [facility] RDW CV 14.1 11.1 - 14.9 % [facility] RDW SD 45.6 35.7 - 48.1 fL [facility] NRBC abs 0.00 0.00 - 0.01 K/cumm [facility] Blood 07/16/2025 11:3 4 PM CDT 07/17/2025 12:00 AM CDT Delilah Adams MD PhD LAB BLOOD ORDERABLES F inal Result [facility] Department [place] [address] * (ABNORMAL) Basic metabolic panel (07/16/2025 11:34 PM CDT) [facility] Sodium 142 135 - 145 mmol/L Potassium, pl 3.4 3.3 - 4.9 mmol/L [facility] Chloride 97 97 - 110 mmol/L [facility] CO2 31 22 - 32 mmol/L [facility] Anion gap 14 2 - 15 mmol/L [facility] BUN 74(H) 6 - 25 mg/dL [facility] Creatinine 2.94(H) 0.80 - 1.30 mg/dL [facility] Glucose 123 70 - 199 mg/dL [facility] Comment: Interpretive Data Fasting glucose >/= [...] 2022. Calcium 9.3 8.5 - 10.3 mg/dL [facility] Blood 07/16/2025 11:3 4 PM CDT 07/16/2025 11:59 PM CDT Delilah Adams MD PhD LAB BLOOD ORDERABLES F inal Result [facility] [place] [address] * POCT glucose (07/16/2025 8:36 PM CDT) Glucose, POC 174 70 - 199 mg/dL Blood 07/16/2025 8:36 PM CDT 07/16/2025 8:36 PM CDT Delilah Adams MD PhD LAB POCT ORDERABLES - DEVICE Final Result [facility] [place] [address] * POCT glucose (07/16/2025 5:30 PM CDT) Glucose, POC 177 70 - 199 mg/dL Blood 07/16/2025 5:30 PM CDT 07/16/2025 5:30 PM CDT us Delilah Adams MD PhD LAB POCT ORDERABLES - DEVICE Final Result [facility] [place] [address] * Surgical pathology (07/16/2025 4:55 PM CDT) Other (Other) 07/16/2025 4:5 5 PM CDT Narrative PATHOLOGY [facility] - 07/23/2025 11:14 AM CDT EPIC results best viewed via link to PDF [facility] [place] [address] Note to Patients: This report may contain [...] SURGICAL PATHOLOGY REPORT FINAL Patient Name: GREGORY HAYS Gender: Tigist : [id number] (Age: 70) Address: [address] [place] [address] Hospital #: [id number] Taken:07/16/2025 Received:07/16/2025 Reported: 07/23/2025 Patient Type: [facility] OP In Bed Service: Surgery Location: [place] [address] Physician(s): Johnny Velasquez M.D. Diagnosis: Soft tissue, [...] sxv/07/17/2025 11:57 PA(s): Star Castillo MS, PA ([facility])CM By this signature, I attest that the above diagnosis is based upon my personal examination of the slides(and/or other material). Addenda/Procedures The performance characteristics of some immunohistochemical stains, fluorescence in-situ hybridization tests and immunophenotyping by flow cytometry cited in this report (if any) were determined by the Surgical Pathology and Flow Cytometry Departments at [facility] as part of an ongoing quality assurance supervisor final program and in compliance with federally mandated [...] Surgical Pathology and Flow Cytometry Departments of [facility]. It has not been cleared or approved by the U. S. Food and Drug Administration. IMAGES AND SCANNED DOCUMENTS, IF INCLUDED, ONLY VIEWABLE IN PDF VERSION OF REPORT Delilah Adams MD PhD LAB PATHOLOGY ORDERABL ES Final Result Performing Organization Address City/[facility]/ZIP Co de Phone Number PATHOLOGY [facility] 3rd Floor [place], [place] [phone] * (ABNORMAL) Hemoglobin and hematocrit (07/16/2025 3:43 PM CDT) Pathologist [facility] Hgb 8.7(L) 13.0 - 17.5 g/dL Hct 29.2(L) 38.9 - 50.3 % [facility] Blood 07/16/2025 3:4 3 PM CDT 07/16/2025 3:59 PM CDT Alissa Mckeon NP LAB BLOOD ORDERABLES Final Result Performing Organization Address [facility]/ZIP Co de Phone Number [facility] Department [place] [address] * POCT glucose (07/16/2025 3:42 PM CDT) [facility] Glucose, POC 187 70 - 199 mg/dL Blood 07/16/2025 3:42 PM CDT 07/16/2025 3:42 PM CDT Delilah Adams MD PhD LAB POCT ORDERABLES - DEVICE Final Result Performing Organization Address City/[facility] Co de Phone Number [facility] Department [place] [address] * (ABNORMAL) Hemoglobin A1c (05/04/2025 4:40 PM CDT) [facility] Hgb A1C 6.2(H) 4.0 - 5.6 % Estimated Average Glucose 131 mg/dL [facility] Comment: The ADA recommends reporting an estimated Average Glucose (eAG) with all Hemoglobin A1c results using the equation derived from a study of 507 normal and diabetic adults. Minority populations were underrepresented and children were not included. (Diabetes Care 2020; 43(S1): S66-S76). The eAG is not equivalent to a fasting glucose. Blood 05/04/2025 4:40 PM CDT 05/04/2025 5:42 PM CDT Narrative [facility] - 05/05/2025 8:17 AM CDT Reflex us Delilah Adams MD PhD LAB BLOOD ORDERABLES F inal Result [facility] [place] [address] * (ABNORMAL) Lipid panel (02/16/2025 12:16 AM [...] on 2018. Triglycerides 146 <=149 mg/dL [facility] Comment: Hemolyzed; result may be falsely elevated [...] on 2018. HDL 23(L) >=40 mg/dL [facility] Comment: Interpretive Data Ages < or [...] 2018. LDL, calculated 59 <=129 mg/dL [facility] Comment: Interpretive Data Ages < or [...] NCEP Expert Panel. Circulation 2004;110:227 3. David Webb al. KATHI Cardiol. 2019March 21;5(5):540-548. doi: 10.1001/jamacardio.2020.0013 Current Interpretive Data was last revised on 2024. Non-HDL Cholesterol 85 mg/dL [facility] Comment: Interpretive Data Ages < or [...] last revised on 2018. Chol/HDL ratio 5 [facility] Blood 02/16/2025 12:1 6 AM CDT 02/16/2025 1:10 AM CDT us Delilah Adams MD PhD LAB BLOOD ORDERABLES F inal Result [facility] [place] [address] from Last 3 Months or Most Recently Relevant to Health Maintenance Insurance MEDICARE ADVANTAGE Member Subscriber Plan / Payer (Ef fective 2022-Present) Name:Gregory Hays Relation to Subscriber:Self Name:Gregory Hays Payer ID:[id number] (NAIC) Type:[facility] MEDICARE Address: [place] [phone] MEDICARE ADVANTAGE Advance Directives For more information, please contact: [phone] Documents on File Type Date Recorded 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 Use antibiotics, IV Fluids, and medical treatment unless specifically selected below: No intubation * Full Code Date Activated Date Inactivated Comments 09/03/2025 11:50 AM 09/04/2025 9:17 AM * LIMITED - No CPR Date Activated Date Inactivated Comments 09/02/2025 12:15 PM 09/03/2025 11:50 AM Question Answer Comments Provide aggressive medical m anagement before a full cardiopulmonary arrest occurs. Use antibiotics, IV Fluids, and medical treatment unless specifically selected below: No intubation * Full Code Date Activated Date Inactivated Comments 08/30/2025 6:58 PM 09/02/2025 12:15 PM * Full Code Date Activated Date Inactivated Comments 07/16/2025 7:41 PM 07/18/2025 11:06 PM Healthcare Agents on File Name Relationship Healthcare Agent [facility] Communication Landy Hays Spouse Health Care Agent Care Teams Trade Clerk Relationship Specialty Start Date End Date Bryan Hough MD PCP - General 09/22/21 Delilah Adams MD PhD [address] [facility] [address] [place] [address] Consulting Physician Vascular Surgery 03/01/25 Noel Bañuelos MD [address] [place] [address] Consulting Physician Cardiology 07/05/25 Bryan Hough MD [address] [place] [address] Psychiatry 09/13/25
--- OUTSIDE RECORDS SUMMARY | 2025-10-01 08:45 | XMS_ITS | Data Portability ---
Author Organization [facility] Address [address] [place] [address] Care Team Providers Care Personnel Technician Name Role Phone DULCE HOUGH Primary Care [...] follow up with me in 2 months [email or web address] Not available 10/14/2024 15:52:45 01/04/2025 01/04/2025 decongestant he needs some physical therapy he needs blood work diagnosis have been discussed hypertension chronic diastolic heart failure hypothyroidism type 2 diabetes neuropathy pneumococcal vaccine flu shot see me in 3 months physical therapy blood work. [email or web address] Not available 01/05/2025 16:03:04 04/10/2025 04/10/2025 Refill medicines as needed blood work will be ascertained I will see him in a month clinically appears [email or web address] Not available 04/13/2025 23:25:35 04/26/2025 04/26/2025 is [...] month other medicines will remain the same [email or web address] Not available 04/26/2025 14:26:26 07/04/2025 07/04/2025 His chronic medical problems has been discussed we will continue current therapy home health is coming out I told the and the patient that I am not the 1 managing the foot wound and that home health needs to call that physician for orders. [email or web address] Not available 07/06/2025 12:19:43 Plan of Treatment Reminders Order Date Submit Date Provider Last Modified By Organization Details Last Modified Time Details Appointments None recorded. Lab HbA1c (hemoglobin A1c), blood 2024 025 SWETHASHIVANI Kaplan, [address], [address], [place], [address], 13:12:13 CBC w/ auto diff 2024 025 [place] Yulisa, [address], [place], [address], 13:12:14 lipid panel, serum 2024 025 [place] [facility] [address], [place], [address], 13:12:10 TSH, ultra-sensi tive, serum 2024 025 SWETHASHIVANI Márquez, [address], [place], [address], 13:12:14 T3, free, serum or plasma 2024 025 SWETHA Márquez, [address], [place], [address], 13:12:15 unlisted lab - T4, free 2024 025 SWETHASHIVANI Márquez, [address], [place], [address], 5 13:12:11 CMP, serum or plasma 2024 025 [facility], [address], [place], [address], 5 13:12:12 HbA1c (hemoglobin A1c), blood 2024 025 [facility], [address], [place], [address], 5 08:24:23 CMP, serum or plasma 2024 025 [facility], [address] [place], [place] [address]sherie Hopkins, [address], [place], [address], 5 08:24:22 CBC w/ auto diff 2024 025 [facility], [address] [place] [address], [address], [place], [address], 5 08:24:25 lipid panel, serum 2024 025 [facility], [address] [place] [address] [address], [address], [place], [address], 5 08:24:20 TSH, ultra-sensi tive, serum 2024 025 [facility], [address] [place] [address] [address], [address], [place], [address], 5 08:24:24 T3, free, serum or plasma 2024 025 [facility], [address] [place] [address] [address], [address], [place], [address], 5 08:24:27 T4, free, serum 2024 025 [place] [facility], [address] [facility], [address], [place], [address], 5 08:24:28 HbA1c (hemoglobin A1c), blood 2023 024 In-Office Order, Internal Use Only DO Not Attach Compendium DO Not Attach Compendium, Do Not Delete/merge, [id number] 4 15:05:51 Referral nephrologis t referral - Pt was in [facility] and D/C on 04/16/25 this is for a hospital follow up. 2024 025 [email or web address] Abner Ramirez MD, [address], [facility], [place], [address], 5 16:49:24 physical therapist referral 2024 025 [facility], [address], [place], [address], 5 12:34:58 Procedures None recorded. Surgeries None recorded. Imaging None recorded. Medication Orders amiodarone 200 mg tablet 2024 025 [email or web address] [id number], [address], [place], [id number], 5 15:15:58 clopidogrel 75 mg tablet 2024 025 [facility] #[facility]64, [address], [place], [id number], 5 15:15:58 magnesium citrate 100 mg tablet 2024 025 [facility], [address], [place], [id number], 5 11:52:16 Patient TargetsNo targets recorded. 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 Referral for Ch ronic kidney disease stage 4 Pt was in [facility] and D/C on 04/16/25 this is for [...] DO Not Attach Compendium, Do Not Delete/merge, [id number] 10/03/2024 14:43:11 01/04/2001/05/2025 LIPID PANEL cholesterol, total 121 mg/dL 100-19 9 Not Available [facility] ([facility]) [address] [place], [address], 01/05/2025 08:24:20 01/04/2001/05/2025 LIPID PANEL triglyceride s 241 mg/dL 0-149 above high normal Not Available [facility] ([facility]) [address] [place], [address], 01/05/2025 08:24:20 01/04/2001/05/2025 LIPID PANEL HDL cholesterol 25 mg/dL >39 below low normal Not Available [facility] ([facility]) [address] [place], [address], 01/05/2025 08:24:20 01/04/20 25 01/05/2025 LIPID PANEL VLDL cholesterol nicholas 39 mg/dL 5-40 Not Available [facility] ([facility]) [address] [place], [address], 01/05/2025 08:24:20 01/04/20 25 01/05/2025 LIPID PANEL LDL chol calc ([facility]) 57 mg/dL 0-99 Not Available [facility] ([facility]) [address] [place], [address], 01/05/2025 08:24:20 01/04/20 25 01/05/2025 COMP. METAB OLIC PANEL (14) glucose 132 mg/dL 70-99 above high normal Not Available [facility] ([facility]) [address] [facility], [place], [address], 01/05/2025 08:24:21 01/04/20 25 01/05/2025 COMP. METAB OLIC PANEL (14) BUN 56 mg/dL 8-27 above high normal Not Available [facility] ([facility]) [address] [place], [address], 01/05/2025 08:24:21 01/04/20 25 01/05/2025 COMP. METAB OLIC PANEL (14) creatinine 2.23 mg/dL 0.76-1 .27 above high normal Not Available [facility] ([facility]) [address] [place], [address], 01/05/2025 08:24:21 01/04/20 25 01/05/2025 COMP. METAB OLIC PANEL (14) eGFR 31 mL/mi n/1.7 3 >59 below low normal Not Available [facility] ([facility]) [address] [place], [address], 01/05/2025 08:24:21 01/04/20 25 01/05/2025 COMP. METAB OLIC PANEL (14) BUN/creatini ne ratio 25 10-24 above high normal Not Available [facility] ([facility]) [address] [place], [address], 01/05/2025 08:24:21 01/04/20 25 01/05/2025 COMP. METAB OLIC PANEL (14) sodium 144 mmol/ L 134-14 4 Not Available [facility] ([facility]) [address] [place], [address], 01/05/2025 08:24:21 01/04/20 25 01/05/2025 COMP. METAB OLIC PANEL (14) potassium 4.8 mmol/ L 3.5-5. 2 Not Available [facility] ([facility]) [address] [place], [address], 01/05/2025 08:24:21 01/04/20 25 01/05/2025 COMP. METAB OLIC PANEL (14) chloride 107 mmol/ L 96-106 above high normal Not Available [facility] ([facility]) [address] [facility] [place], [address], 01/05/2025 08:24:21 01/04/20 25 01/05/2025 COMP. METAB OLIC PANEL (14) carbon dioxide, total 23 mmol/ L 20-29 Not Available [facility] ([facility]) [address] [place], [address], 01/05/2025 08:24:21 01/04/20 25 01/05/2025 COMP. METAB OLIC PANEL (14) calcium 8.4 mg/dL 8.6-10 .2 below low normal Not Available [facility] ([facility]) [address] [place], [address], 01/05/2025 08:24:21 01/04/20 25 01/05/2025 COMP. METAB OLIC PANEL (14) protein, total 6.7 g/dL 6.0-8. 5 Not Available [facility] ([facility]) [address] [place], [address], 01/05/2025 08:24:21 01/04/20 25 01/05/2025 COMP. METAB OLIC PANEL (14) albumin 3.6 g/dL 3.8-4. 8 below low normal Not Available [facility] ([facility]) [address] [place], [address], 01/05/2025 08:24:21 01/04/20 25 01/05/2025 COMP. METAB OLIC PANEL (14) globulin, total 3.1 g/dL 1.5-4. 5 Not Available [facility] ([facility]) [address] [place], [address], 01/05/2025 08:24:21 01/04/20 25 01/05/2025 COMP. METAB OLIC PANEL (14) bilirubin, total <0.2 mg/dL 0.0-1. 2 Not Available [facility] ([facility]) [address] [facility] [place], [address], 01/05/2025 08:24:21 01/04/20 25 01/05/2025 COMP. METAB OLIC PANEL (14) alkaline phosphatase 120 IU/L 44-121 Not Available [facility] ([facility]) [address] [facility] [place], [address], 01/05/2025 08:24:21 01/04/20 25 01/05/2025 COMP. METAB OLIC PANEL (14) AST (SGOT) 14 IU/L 0-40 Not Available [facility] ([facility]) [address] [place], [address], 01/05/2025 08:24:21 01/04/20 25 01/05/2025 COMP. METAB OLIC PANEL (14) ALT (SGPT) 9 IU/L 0-44 Not Available [facility] ([facility]) [address] [place], [address], 01/05/2025 08:24:21 01/04/20 25 01/05/2025 HEMOG LOBIN A1C hemoglobin A1C 7.9 % 4.8-5. 6 above high normal Predi abete s: 5.7 - 6.4 Diabe carmel: >6.4 Glyce cami contr ol for adult s with diabe carmel: <7.0 Not Available [facility] ([facility]) [address] [place], [address], 01/05/2025 08:24:23 01/04/2001/05/2025 TSH TSH 3.750 uIU/m L 0.450- 4.500 Not Available [facility] ([facility]) [address] [place], [address], 01/05/2025 08:24:24 01/04/20 25 01/05/2025 CBC WITH DIFFE RENTI AL/PL ATELE T WBC 6.4 x10e3 /uL 3.4-10 .8 Not Available [facility] ([facility]) [address] [place], [address], 01/05/2025 08:24:25 01/04/20 25 01/05/2025 CBC WITH DIFFE RENTI AL/PL ATELE T RBC 3.04 x10e6 /uL 4.14-5 .80 below low normal Not Available [facility] ([facility]) [address] [place], [address], 01/05/2025 08:24:25 01/04/20 25 01/05/2025 CBC WITH DIFFE RENTI AL/PL ATELE T hemoglobin 8.1 g/dL 13.0-1 7.7 below low normal Not Available [facility] ([facility]) [address] [place], [address], 01/05/2025 08:24:25 01/04/20 25 01/05/2025 CBC WITH DIFFE RENTI AL/PL ATELE T hematocrit 26.8 % 37.5-5 1.0 below low normal Not Available [facility] ([facility]) [address] [facility], [place], [address], 01/05/2025 08:24:25 01/04/20 25 01/05/2025 CBC WITH DIFFE RENTI AL/PL ATELE T MCV 88 fL 79-97 Not Available [facility] ([facility]) [address] [facility], [place], [address], 01/05/2025 08:24:25 01/04/20 25 01/05/2025 CBC WITH DIFFE RENTI AL/PL ATELE T MCH 26.6 pg 26.6-3 3.0 Not Available [facility] ([facility]) [address] [facility], [place], [address], 01/05/2025 08:24:25 01/04/20 25 01/05/2025 CBC WITH DIFFE RENTI AL/PL ATELE T MCHC 30.2 g/dL 31.5-3 5.7 below low normal Not Available [facility] ([facility]) [address] [place], [address], 01/05/2025 08:24:25 01/04/20 25 01/05/2025 CBC WITH DIFFE RENTI AL/PL ATELE T RDW 13.6 % 11.6-1 5.4 Not Available [facility] ([facility]) [address] [place], [address], 01/05/2025 08:24:25 01/04/20 25 01/05/2025 CBC WITH DIFFE RENTI AL/PL ATELE T platelets 313 x10e3 /uL 150-45 0 Not Available [facility] ([facility]) [address] [place], [address], 01/05/2025 08:24:25 01/04/20 25 01/05/2025 CBC WITH DIFFE RENTI AL/PL ATELE T neutrophils 67 % notest ab. Not Available [facility] ([facility]) [address] [facility], [place], [address], 01/05/2025 08:24:25 01/04/20 25 01/05/2025 CBC WITH DIFFE RENTI AL/PL ATELE T lymphs 20 % notest ab. Not Available [facility] ([facility]) [address] [facility], [place], [address], 01/05/2025 08:24:25 01/04/20 25 01/05/2025 CBC WITH DIFFE RENTI AL/PL ATELE T monocytes 6 % notest ab. Not Available [facility] ([facility]) [address] [facility], [place], [address], 01/05/2025 08:24:25 01/04/20 25 01/05/2025 CBC WITH DIFFE RENTI AL/PL ATELE T eos 5 % notest ab. Not Available [facility] ([facility]) [address] [place], [address], 01/05/2025 08:24:25 01/04/20 25 01/05/2025 CBC WITH DIFFE RENTI AL/PL ATELE T basos 1 % notest ab. Not Available [facility] ([facility]) [address] [place], [address], 01/05/2025 08:24:25 01/04/20 25 01/05/2025 CBC WITH DIFFE RENTI AL/PL ATELE T neutrophils (absolute) 4.3 x10e3 /uL 1.4-7. 0 Not Available [facility] ([facility]) [address] [place], [address], 01/05/2025 08:24:25 01/04/20 25 01/05/2025 CBC WITH DIFFE RENTI AL/PL ATELE T lymphs (absolute) 1.3 x10e3 /uL 0.7-3. 1 Not Available [facility] ([facility]) [address] [place], [address], 01/05/2025 08:24:25 01/04/20 25 01/05/2025 CBC WITH DIFFE RENTI AL/PL ATELE T monocytes(ab solute) 0.4 x10e3 /uL 0.1-0. 9 Not Available [facility] ([facility]) [address] [facility], [place], [address], 01/05/2025 08:24:25 01/04/20 25 01/05/2025 CBC WITH DIFFE RENTI AL/PL ATELE T eos (absolute) 0.3 x10e3 /uL 0.0-0. 4 Not Available [facility] ([facility]) [address] [place], [address], 01/05/2025 08:24:25 01/04/20 25 01/05/2025 CBC WITH DIFFE RENTI AL/PL ATELE T baso (absolute) 0.1 x10e3 /uL 0.0-0. 2 Not Available [facility] ([facility]) [address] [place], [address], 01/05/2025 08:24:25 01/04/20 25 01/05/2025 CBC WITH DIFFE RENTI AL/PL ATELE T immature granulocytes 1 % notest ab. Not Available [facility] ([facility]) [address] [place], [address], 01/05/2025 08:24:25 01/04/20 25 01/05/2025 CBC WITH DIFFE RENTI AL/PL ATELE T immature grans (abs) 0.1 x10e3 /uL 0.0-0. 1 Not Available [facility] ([facility]) [address] [place], [address], 01/05/2025 08:24:25 01/04/20 25 01/05/2025 TRIIO DOTHY ARCELIA E (T3), FREE triiodothyro nine (T3), free 2.0 pg/mL 2.0-4. 4 Not Available [facility] ([facility]) [address] [place], [address], 01/05/2025 08:24:27 01/04/20 25 01/05/2025 T4,FR EE(DI RECT) T4,free(dire ct) 1.14 NG/dL 0.82-1 .77 Not Available [facility] ([facility]) [address] [place], [address], 01/05/2025 08:24:28 04/10/20 25 04/11/2025 LIPID PANEL cholesterol, total 122 mg/dL 100-19 9 Not Available [facility] ([facility]) [address] [place], [address], 04/11/2025 13:12:10 04/10/20 25 04/11/2025 LIPID PANEL triglyceride s 184 mg/dL 0-149 above high normal Not Available [facility] ([facility]) [address] [place], [address], 04/11/2025 13:12:10 04/10/20 25 04/11/2025 LIPID PANEL HDL cholesterol 29 mg/dL >39 below low normal Not Available [facility] ([facility]) [address] [place], [address], 04/11/2025 13:12:10 04/10/20 25 04/11/2025 LIPID PANEL VLDL cholesterol nicholas 31 mg/dL 5-40 Not Available [facility] ([facility]) [address] [place], [address], 04/11/2025 13:12:10 04/10/20 25 04/11/2025 LIPID PANEL LDL chol calc ([facility]) 62 mg/dL 0-99 Not Available [facility] ([facility]) [address] [place], [address], 04/11/2025 13:12:10 04/10/20 25 04/11/2025 T4, FREE T4,free(dire ct) 1.83 NG/dL 0.82-1 .77 above high normal Not Available [facility] ([facility]) [address] [place], [address], 04/11/2025 13:12:11 04/10/20 25 04/11/2025 COMP. METAB OLIC PANEL (14) glucose 103 mg/dL 70-99 above high normal Not Available [facility] ([facility]) [address] [place], [address], 04/11/2025 13:12:12 04/10/20 25 04/11/2025 COMP. METAB OLIC PANEL (14) BUN 104 mg/dL 8-27 alert high Not Available [facility] ([facility]) [address] [place], [address], 04/11/2025 13:12:12 04/10/20 25 04/11/2025 COMP. METAB OLIC PANEL (14) creatinine 3.99 mg/dL 0.76-1 .27 above high normal Not Available [facility] ([facility]) [address] [place], [address], 04/11/2025 13:12:12 04/10/20 25 04/11/2025 COMP. METAB OLIC PANEL (14) eGFR 15 mL/mi n/1.7 3 >59 below low normal Not Available [facility] ([facility]) [address] [place], [address], 04/11/2025 13:12:12 04/10/20 25 04/11/2025 COMP. METAB OLIC PANEL (14) BUN/creatini ne ratio 26 10-24 above high normal Not Available [facility] ([facility]) [address] [place], [address], 04/11/2025 13:12:12 04/10/20 25 04/11/2025 COMP. METAB OLIC PANEL (14) sodium 141 mmol/ L 134-14 4 Not Available [facility] ([facility]) [address] [facility] [place], [address], 04/11/2025 13:12:12 04/10/20 25 04/11/2025 COMP. METAB OLIC PANEL (14) potassium 3.1 mmol/ L 3.5-5. 2 below low normal Not Available [facility] ([facility]) [address] [place], [address], 04/11/2025 13:12:12 04/10/20 25 04/11/2025 COMP. METAB OLIC PANEL (14) chloride 95 mmol/ L 96-106 below low normal Not Available [facility] ([facility]) [address] [place], [address], 04/11/2025 13:12:12 04/10/20 25 04/11/2025 COMP. METAB OLIC PANEL (14) carbon dioxide, total 23 mmol/ L 20-29 Not Available [facility] ([facility]) [address] [facility] [place], [address], 04/11/2025 13:12:12 04/10/20 25 04/11/2025 COMP. METAB OLIC PANEL (14) calcium 8.9 mg/dL 8.6-10 .2 Not Available [facility] ([facility]) [address] [facility] [place], [address], 04/11/2025 13:12:12 04/10/20 25 04/11/2025 COMP. METAB OLIC PANEL (14) protein, total 7.4 g/dL 6.0-8. 5 Not Available [facility] ([facility]) [address] [facility] [place], [address], 04/11/2025 13:12:12 04/10/20 25 04/11/2025 COMP. METAB OLIC PANEL (14) albumin 3.8 g/dL 3.8-4. 8 Not Available [facility] ([facility]) [address] [place], [address], 04/11/2025 13:12:12 04/10/20 25 04/11/2025 COMP. METAB OLIC PANEL (14) globulin, total 3.6 g/dL 1.5-4. 5 Not Available [facility] ([facility]) [address] [place], [address], 04/11/2025 13:12:12 04/10/20 25 04/11/2025 COMP. METAB OLIC PANEL (14) bilirubin, total 0.4 mg/dL 0.0-1. 2 Not Available [facility] ([facility]) [address] [place], [address], 04/11/2025 13:12:12 04/10/20 25 04/11/2025 COMP. METAB OLIC PANEL (14) alkaline phosphatase 105 IU/L 44-121 Not Available [facility] ([facility]) [address] [place], [address], 04/11/2025 13:12:12 04/10/20 25 04/11/2025 COMP. METAB OLIC PANEL (14) AST (SGOT) 12 IU/L 0-40 Not Available [facility] ([facility]) [address] [place], [address], 04/11/2025 13:12:12 04/10/20 25 04/11/2025 COMP. METAB OLIC PANEL (14) ALT (SGPT) 9 IU/L 0-44 Not Available [facility] ([facility]) [address] [place], [address], 04/11/2025 13:12:12 04/10/20 25 04/11/2025 HEMOG LOBIN A1C hemoglobin A1C 6.5 % 4.8-5. 6 above high normal Predi abete s: 5.7 - 6.4 Diabe carmel: >6.4 Glyce cami contr ol for adult s with diabe carmel: <7.0 Not Available [facility] ([facility]) [address] [place], [address], 04/11/2025 13:12:13 04/10/20 25 04/11/2025 TSH TSH 3.260 uIU/m L 0.450- 4.500 Not Available [facility] ([facility]) [address] [place], [address], 04/11/2025 13:12:13 04/10/20 25 04/11/2025 CBC WITH DIFFE RENTI AL/PL ATELE T WBC 7.1 x10e3 /uL 3.4-10 .8 Not Available [facility] ([facility]) [address] [facility], [place], [address], 04/11/2025 13:12:14 04/10/20 25 04/11/2025 CBC WITH DIFFE RENTI AL/PL ATELE T RBC 3.51 x10e6 /uL 4.14-5 .80 below low normal Not Available [facility] ([facility]) [address] [place], [address], 04/11/2025 13:12:14 04/10/20 25 04/11/2025 CBC WITH DIFFE RENTI AL/PL ATELE T hemoglobin 9.3 g/dL 13.0-1 7.7 below low normal Not Available [facility] ([facility]) [address] [place], [address], 04/11/2025 13:12:14 04/10/20 25 04/11/2025 CBC WITH DIFFE RENTI AL/PL ATELE T hematocrit 31.5 % 37.5-5 1.0 below low normal Not Available [facility] ([facility]) [address] [place], [address], 04/11/2025 13:12:14 05/21/04/11/2025 CBC WITH DIFFE RENTI AL/PL ATELE T MCV 90 fL 79-97 Not Available [facility] ([facility]) [address] [place], [address], 04/11/2025 13:12:14 04/10/20 25 04/11/2025 CBC WITH DIFFE RENTI AL/PL ATELE T MCH 26.5 pg 26.6-3 3.0 below low normal Not Available [facility] ([facility]) [address] [place], [address], 04/11/2025 13:12:14 04/10/20 25 04/11/2025 CBC WITH DIFFE RENTI AL/PL ATELE T MCHC 29.5 g/dL 31.5-3 5.7 below low normal Not Available [facility] ([facility]) [address] [place], [address], 04/11/2025 13:12:14 04/10/20 25 04/11/2025 CBC WITH DIFFE RENTI AL/PL ATELE T RDW 17.3 % 11.6-1 5.4 above high normal Not Available [facility] ([facility]) [address] [place], [address], 04/11/2025 13:12:14 04/10/20 25 04/11/2025 CBC WITH DIFFE RENTI AL/PL ATELE T platelets 300 x10e3 /uL 150-45 0 Not Available [facility] ([facility]) [address] [place], [address], 04/11/2025 13:12:14 04/10/20 25 04/11/2025 CBC WITH DIFFE RENTI AL/PL ATELE T neutrophils 63 % notest ab. Not Available [facility] ([facility]) [address] [place], [address], 04/11/2025 13:12:14 04/10/20 25 04/11/2025 CBC WITH DIFFE RENTI AL/PL ATELE T lymphs 24 % notest ab. Not Available [facility] ([facility]) [address] [facility], [place], [address], 04/11/2025 13:12:14 04/10/20 25 04/11/2025 CBC WITH DIFFE RENTI AL/PL ATELE T monocytes 7 % notest ab. Not Available [facility] ([facility]) [address] [facility], [place], [address], 04/11/2025 13:12:14 04/10/20 25 04/11/2025 CBC WITH DIFFE RENTI AL/PL ATELE T eos 4 % notest ab. Not Available [facility] ([facility]) [address] [facility], [place], [address], 04/11/2025 13:12:14 04/10/20 25 04/11/2025 CBC WITH DIFFE RENTI AL/PL ATELE T basos 1 % notest ab. Not Available [facility] ([facility]) [address] [facility], [place], [address], 04/11/2025 13:12:14 04/10/20 25 04/11/2025 CBC WITH DIFFE RENTI AL/PL ATELE T neutrophils (absolute) 4.5 x10e3 /uL 1.4-7. 0 Not Available [facility] ([facility]) [address] [place], [address], 04/11/2025 13:12:14 04/10/20 25 04/11/2025 CBC WITH DIFFE RENTI AL/PL ATELE T lymphs (absolute) 1.7 x10e3 /uL 0.7-3. 1 Not Available [facility] [facility] [address] [facility], [place], [address], 04/11/2025 13:12:14 04/10/20 25 04/11/2025 CBC WITH DIFFE RENTI AL/PL ATELE T monocytes(ab solute) 0.5 x10e3 /uL 0.1-0. 9 Not Available [facility] ([facility]) [address] [place], [address], 04/11/2025 13:12:14 04/10/20 25 04/11/2025 CBC WITH DIFFE RENTI AL/PL ATELE T eos (absolute) 0.3 x10e3 /uL 0.0-0. 4 Not Available [facility] ([facility]) [address] [place], [address], 04/11/2025 13:12:14 04/10/20 25 04/11/2025 CBC WITH DIFFE RENTI AL/PL ATELE T baso (absolute) 0.1 x10e3 /uL 0.0-0. 2 Not Available [facility] ([facility]) [address] [place], [address], 04/11/2025 13:12:14 04/10/20 25 04/11/2025 CBC WITH DIFFE RENTI AL/PL ATELE T immature granulocytes 1 % notest ab. Not Available [facility] ([facility]) [address] [place], [address], 04/11/2025 13:12:14 04/10/20 25 04/11/2025 CBC WITH DIFFE RENTI AL/PL ATELE T immature grans (abs) 0.0 x10e3 /uL 0.0-0. 1 Not Available [facility] ([facility]) [address] [place], [address], 04/11/2025 13:12:14 04/10/20 25 04/11/2025 TRIIO DOTHY ARCELIA E (T3), FREE triiodothyro nine (T3), free 1.5 pg/mL 2.0-4. 4 below low normal Not Available [facility] ([facility]) [address] [place], [address], 04/11/2025 13:12:15 10/08/20 24 10/08/2024 XR, chest , 2 view No observ ation record ed. [email or web address] [place] [address] [facility] [address], [place], [address], 10/08/2024 21:01:43 10/10/20 24 10/10/2024 XR, chest , 2 view No observ ation record ed. [address], [place], [address], 10/10/2024 20:32:46 02/15/20 25 02/14/2025 XR, foot, 3 or more view No observ ation record ed. [address], [place], [address], 02/15/2025 09:13:06 02/15/20 25 02/14/2025 XR, foot, 3 or more view No observ ation record ed. [address] [facility], [place], [address], 02/15/2025 09:13:31 04/12/20 25 04/11/2025 CT, abdom en + pelvi s, w/o contr ast No observ ation record ed. [address], [place], [address], 04/12/2025 09:04:59 04/12/20 25 04/12/2025 US, renal No observ ation record ed. [address], [place], [address], 04/16/2025 17:12:59 04/12/20 25 04/12/2025 XR, chest , 2 view No observ ation record ed. [address], [place], [address], 04/15/2025 22:42:50 08/30/20 25 08/29/2025 XR, chest , 2 view No observ ation record ed. [facility] [address], [place], [address], 09/01/2025 22:15:02 08/30/2008/29/2025 XR, chest , 2 view No observ ation record ed. [facility] [address] [facility] [address], [place], [address], 09/01/2025 22:15:03 08/30/2008/29/2025 CT, abdom en + pelvi s, w/o contr ast No observ ation record ed. [facility] [address] [facility] [address], [place], [address], 09/02/2025 09:07:20 Result Notes None recorded. Problems Name Problem SNOMED Code Status Onset Date Resolution Date Notes Provider Name and Address Organization Details Recorded Time Hypothyroidism 97965841 Active 2023 Dulce Hough MD Attn: Zuleyka hunter,[address] [place], [address], [place] - [facility] 4 15:09:04 Congestive heart failure 83028725 Active 2023 Mikki Arellano [place] null, [place] [facility] 4 15:43:21 Peripheral vascular disease 589195951 Active 2023 Mikki Arellano [place] null, [place] [facility] 4 15:43:22 Chronic kidney disease stage 3 703113340 Active 2023 Dulce Hough MD Attn: Zuleyka hunter,[address] [facility], [place], [address], [place] [facility] 4 13:31:06 Diabetes mellitus 06393684 Active 2023 Dulce Hough MD Attn: Zuleyka hunter,[address] [place], [address], [place] [facility] 4 08:12:59 Atrial fibrillation 21348811 Active 2023 Dulce Hough MD Attn: Zuleyka hunter,[address] [place], [address], [facility] - [facility] 4 15:52:15 Essential hypertension 33816020 Active 2024 Mikki Arellano MA null, [facility] 5 12:28:01 Chronic diastolic heart failure 550444498 Active 2024 Dulce Hough MD Attn: Zuleyka hunter,[address] [facility], [place], [address], [facility] - SI 5 16:01:07 Hyperlipidemia 91620815 Active 2024 Heidi Toro LPN null, [place] - [facility] 5 15:31:25 Problem Notes None recorded. Procedures Surgical History Date Name Laterality Status Provider Name and Address Organization Details Recorded Time amputation of toe completed Yo Nichols [place] - [facility] 07/04/2025 11:54:35 Knee Surgery completed NELIDA Hummel [place] - [facility] 02/06/2024 16:28:35 Imaging Results None [...] % 99 % 112/72 mm[Hg] Bekah Morris [facility] 5 12:11:40 Date Recorded Body height Heart rate Oxygen saturation Oxygen saturation in Arterial blood by Pulse oximetry Systolic And Diastolic Provider Name and Address Organization Details Last Updated DateTime 5 182.88 cm 67 /min 99 % 99 % 114/70 mm[Hg] Mari Nicolas MA [facility] 5 13:59:18 Date Recorded Body height Heart rate Oxygen saturation Oxygen saturation in Arterial blood by Pulse oximetry Systolic And Diastolic Provider Name and Address Organization Details Last Updated DateTime 5 182.88 cm 69 /min 98 % 98 % 118/74 mm[Hg] Bekah Morris [facility] 5 11:23:09 Date Recorded Body height Body mass index (BMI) Body weight Oxygen saturation Oxygen saturation in Arterial blood by Pulse oximetry Heart rate Systolic And Diastolic Provider Name and Address Organization Details Last Updated DateTime 5 182.88 cm 35.5 kg/m2 020187. 2 g 98 % 98 % 72 /min 122/82 mm[Hg] Yo Nichols MA [facility] 5 12:02:38 Date Recorded Body height Heart rate Oxygen saturation Oxygen saturation in Arterial blood by Pulse oximetry Systolic And Diastolic Provider Name and Address Organization Details Last Updated DateTime 4 182.88 cm 70 /min 99 % 99 % 110/60 mm[Hg] Janet Rankin MA [place] - [facility] 4 14:22:23 Social History Question Answer Notes LastModified by Organizat ion Details LastModified Time Tobacco Smoking Status Never Smoker NELIDA Hummel null, [place] - [facility] 02/06/2024 16:28:25 Are You Blind Or Do [...] anxious, or unable to sleep at night)? [id number] Information not available 07/03/2024 Family History Relationship [...] high-dose, quadrivalent, PF 3 completed Louann harden, [place] - [facility] 05/31/2024 13:54:32 Td (adult), 2 Lf tetanus toxoid, preservative free, adsorbed 2 completed Louann harden [place] - [facility] 05/31/2024 13:54:32 Influenza, high-dose, trivalent, PF 4 completed Dulce Hough MD Attn: Accounting,[address] [place], [address], [place] [facility] 10/14/2024 15:48:54 Pneumococcal conjugate PCV20, polysaccharide [id number] conjugate, adjuvant, PF 5 completed Dulce Hough MD Attn: Accounting,[address] [place], [address], [place] [facility] 01/05/2025 15:59:40 Influenza, high-dose, trivalent, PF 5 completed Dulce Hough MD Attn: Accounting,[address] , [place], [address], [facility] 01/05/2025 15:59:40 Past Encounters Encounter ID Performer Location Encounter Start Date Encounter Closed Date Diagnosis/Indication Diagnosis SNOMED-CT Code Diagnosis ICD10 Code Diagnosis IMO Codes Diagnosis Note [id number] Dulce Hough MD [facility] (Adult Med) [address] [place] [phone] 02/06/2024 15:12:48 02/06/2024 16:38:30 Type 2 diabetes mellitus 27225331 E11.9 Peripheral arterial occlusive disease 695292704 I73.9 Neuropathy 818603357 G62 .9 Obesity 975497855 E66.9 Hyperlipidemia 04651449 E78.5 Chronic di astolic heart failure 331842804 I50.32 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 Hypothyroidism 03150176 E03.9 [id number] Dulce Hough MD [facility] (Adult Med) [address] [place] [phone] 04/03/2024 14:28:15 04/03/2024 15:51:52 Congestive heart failure 35968003 I50.9 Peripheral vascular disease 789489331 I73.9 Hypothyroidism 49337430 E03.9 Type 2 carlos betes mellitus 90111212 E11.9 Chronic di astolic heart failure 844330391 I50.32 Chronic ki dney disease stage 3 989950863 N18.30 [id number] Dulce Hough MD [facility] (Adult Med) [address] [place] [phone] 07/03/2024 15:03:59 07/03/2024 16:25:48 Type 2 diabetes mellitus without complication 899816030 E11.9 Essential hypertension 89959638 I10 Hyperlipidemia 45652146 E78.5 Hypothyroidism 28977028 E03.9 Diabetes mellitus 722405 09 E13.42 [id number] MD [facility] (Adult Med) [address] [place] [phone] 10/03/2024 14:10:53 10/03/2024 14:43:45 Administration of influenza vaccine 90740335 Z23 Diabetes mellitus 709714 09 E13.42 Congestive heart failure 21645656 I50.9 Hypothyroidism 99228617 E03.9 Atrial fibrillation 4943 6004 I48.91 [id number] MD [facility] (Adult Med) [address] [place] [phone] 01/04/2025 11:58:51 01/04/2025 12:50:28 Diabetes mellitus 69100904 E13.42 Hypothyroidism 52393734 E03.9 Obesity 593790815 E66.9 Essential hypertension 21848598 I10 Abnormal gait 15221494 R 26.9 Administra tion of pneumococcal vaccine 56677080 Z23 Administra tion of influenza vaccine 85664603 Z23 Atrial fibrillation 4943 6004 I48.91 Chronic di astolic heart failure 545477617 I50.32 [id number] Dulce Hough MD [facility] (Adult Med) [address] [place] [phone] 04/10/2025 13:44:35 04/10/2025 14:46:46 Essential hypertension 85173237 I10 Hypothyroidism 07270523 E03.9 Diabetes mellitus 820924 09 E13.42 Repeated prescription 18 7608176 Z76.0 [id number] Ordered per written permission from Dr. Hough Chronic di astolic heart failure 507566570 I50.32 Atrial fibrillation 4943 6004 I48.91 Hyperlipidemia 24743709 E78.5 68116078 Chronic ki dney disease stage 3 520971525 N18.30 [id number] Dulce Hough MD [facility] (Adult Med) [address] [place] [id number] 04/26/2025 11:07:50 04/26/2025 12:01:54 Chronic kidney disease stage 4 249604281 N18.4 51436658 Essential hypertension 67089108 I10 Chronic di astolic heart failure 587548258 I50.32 Peripheral vascular disease 324546410 I73.9 Hyperlipidemia 14097807 E78.5 81386922 [id number] Dulce Hough MD [facility] [place] [address] [place] [address] 07/04/2025 11:27:18 07/04/2025 12:55:22 Obese class II 5873610344 42409 E66.812 E66.3 4597577866 Essential hypertension 06881177 I10 Chronic di astolic heart failure 650125651 I50.32 Atrial fibrillation 4943 6004 I48.91 Peripheral vascular disease 137741027 I73.9 Hyperlipidemia 55885388 E78.5 14684700 Diabetes mellitus 660805 09 E13.42 Chronic ki dney disease stage 3 164031874 N18.30 Hypothyroidism 85367401 E03.9 Health Concerns Section Related Observation LastModified by Organization Detai ls LastModified Time None Recorded Concern Status LastModified by Organization Details LastModified Time None Recorded Advance Directives Directive None Recorded Payers Insurance Date Sequence Insurance Name Policy Number Policy Mccrary Covered Member ID Mccrary Member ID Guarantor Name 09/01/2025 1 [facility] (MEDICARE REPLACEMENT/A DVANTAGE - HMO) [id number] Gildardo Kat [id number] Gildardo Kat Notes Date Note Type Note [...] been any fever. Dulce Hough MD Attn: Accounting[address] [place], [address], [facility] 10/14/2024 15:53:02 01/04/2025 text/html here for follow [...] Dulce Hough MD Attn: Accounting, [address] , [place], [address], [facility] 01/05/2025 16:03:26 04/10/2025 text/html Necrotic toes and suffered from [facility] where amputations of the toes I believe took place went to rehab facility now home apparently he has been placed on amiodarone and some Bumex then they was given clopidogrel of which they needs some refills on Dulce Hough MD Attn: Accounting, [address] , [place], [address], [facility] 04/13/2025 23:26:43 04/26/2025 text/html Hospitalized for abnormal blood work BUN was really high they held his Bumex and metolazone he has not had any shortness of breath or chest pain he is not having any PND or orthopnea no polyphagia or polydipsia Dulce Hough MD Attn: Accounting, [address] , [place], [address], [facility] 04/26/2025 14:26:55 07/04/2025 text/html Unfortunately had to have some toes amputated he went to rehab facility for awhile and now he is back home he has not had any chest pain shortness of breath or palpitations he is not ambulatory at this time Dulce Hough MD Attn: Accounting, [address] [facility], [place], [address], [facility] 07/06/2025 12:20:05
[2025-10-01 08:48] LABS: Alanine Aminotransferase 35 U/L (6-50); Albumin Level 3.7 g/dL (3.5-5.1); Alkaline Phosphatase 120 U/L (38-126); Anion Gap 21 mmol/L (4-12); Aspartate Amino Transferase 63 U/L (17-59); Bilirubin,Total 1.4 mg/dL (0.2-1.3); Blood Urea Nitrogen 98 mg/dL (9-20); Calcium 7.7 mg/dL (8.4-10.2); Carbon Dioxide 20 mmol/L (22-30); Chloride 91 mmol/L (98-107); Glucose 173 mg/dL (65-110); Potassium 4.2 mmol/L (3.4-5.0); Sodium 132 mmol/L (137-145); Total Protein 7.9 g/dL (6.3-8.2)
[2025-10-01 08:57] LABS: Band Neutrophils Percent 5 % (0-6); Lymphocytes Absolute Manual 0.76 K/mm3 (1.1-4.5); Lymphocytes Percent Manual 5 % (18-44); Monocytes Absolute Manual 0.15 K/mm3 (0.1-0.90); Monocytes Percent Manual 1 % (3-9); Neutrophils Absolute Manual 14.28 K/mm3 (1.3-6.7); Neutrophils Percent Manual 89 % (46-73); Total Cells Counted 100
[2025-10-01 08:58] LABS: Anisocytosis 1+; Burr Cells 1+; Dohle Bodies Present; Giant Platelets Present; Hypochromasia 1+; Polychromasia 1+; Schistocytes None Seen
[2025-10-01 09:00] LABS: Estimated CRCL calculation 10 ml/min; Estimated Glomerular Filt Rate 7
[2025-10-01 09:09] LABS: Influenza A QL RT-PCR Negative (Negative); Influenza B QL RT-PCR Negative (Negative); RSV RNA, RT-PCR Negative (Negative); SARS-CoV-2 RNA PCR Negative (Negative)
--- NOTE | 2025-10-01 09:26 | PC.NURSE ---
Pt requesting something to drink. made aware. Dr. Mary Anne GALVIN for pt to have water. Water provided.
--- NOTE | 2025-10-01 09:28 | PC.NURSE ---
Transfer info put in on wrong pt.
--- NOTE | 2025-10-01 10:14 | WPCEDHO ---
ED Hand Off Checklist All vitals saved: yes IV Site documented: yes All med administrations documented: yes Triage Note Triage Note Pt to ED via EMS from home c/o 10/01/25 07:53 generalized weakness x 1 week. Has missed last two dialysis apts . Pt a&ox4. Family reports pt has been having diarrhea. Pt states does not make urine anymore. Afebrile. Pt tongue and lips appear very dry. Pt states does not walk baseline. Allergies No Known Allergies Allergy (Verified 10/01/25 08:01) Family History (Last Reviewed 08/29/25 @ 22:09 by Mckenna Gilmoer APRN) Unknown Diabetes mellitus Notes 10/01/25 09:26 Nurse Note by Faye Grewal Pt requesting something to drink. made aware. Dr. Mary Anne GALVIN for pt to have water. Water provided. Initialized on 10/01/25 09:26 - END OF NOTE Interventions/Assessments IV / Saline Lock, Insert Start: 10/01/25 07:47 Freq: Status: Active Protocol: Document 10/01/25 08:21 MLI (Rec: 10/01/25 08:22 MLI [id number]) IV Assessment Peripheral Access Left Antecubital IV Catheter Access Initiated IV Insertion Date 10/01/25 IV Insertion Time 08:21 Catheter Gauge 20 IV Insertion 1 Attempts Ultrasound Used for No Placement IV Site Assessment WNL IV Care and WNL Maintenance PA: Cardiovascular Assessment Start: 10/01/25 07:47 Freq: Status: Active Protocol: Document 10/01/25 08:21 MLI (Rec: 10/01/25 08:22 MLI [id number]) Cardiovascular Assessment Cardiovascular None Symptoms Skin Description Pallor PA: Neurological Assessment Start: 10/01/25 07:47 Freq: Status: Active Protocol: Document 10/01/25 08:21 MLI (Rec: 10/01/25 08:22 MLI [id number]) Neurological Assessment Level of Alert,Awake Consciousness Arousable to Verbal Orientation Oriented to Person,Oriented to Place,Oriented to Time Neurological Weakness, General Symptoms Behavior Cooperative,Fatigued Patient Able to Comprehend Comprehension Memory Description Intact Additional Pt reports non-ambulatory baseline. Neurological Comments Ability to Maintain Unable to Assess Balance Gil Coma Scale Eyes Open Verbal Oriented and Alert Motor Follows Commands [place] Coma Total 15 Score Last Vital Signs Temperature 98.4 F 11/11/25 07:53 Pulse Rate 89 10/01/25 10:00 Respiratory Rate 18 10/01/25 10:00 Pulse Oximetry 99 10/01/25 10:00 Blood Pressure 95/62 L 10/01/25 10:00 Blood Pressure Mean 73 10/01/25 10:00 Oxygen Delivery Room Air 10/01/25 07:53 Weight 110.5 kg 10/01/25 07:53 Last Result - Abnormals Only WBC 15.2 K/mm3 (4.5-10.0) H 10/01/25 08:20 RBC 4.04 M/mm3 (4.6-6.20) L 10/01/25 08:20 Hgb 11.0 g/dL (14.0-18.0) L D 10/01/25 08:20 Hct 35.2 % (42.0-52.0) L 10/01/25 08:20 MCHC 31.3 g/dl (32-36) L 10/01/25 08:20 RDW 18.2 % (11.5-14.5) H 10/01/25 08:20 Plt Count 124 k/mm3 (150-375) L D 10/01/25 08:20 MPV 11.3 fl (7.4-10.4) H 10/01/25 08:20 Neutrophils % (Manual) 89 % (46-73) H 10/01/25 08:20 Lymphocytes % (Manual) 5 % (18-44) L 10/01/25 08:20 Monocytes % (Manual) 1 % (3-9) L 10/01/25 08:20 Abs Neuts (Manual) 14.28 K/mm3 (1.3-6.7) H 10/01/25 08:20 Abs Lymphs (Manual) 0.76 K/mm3 (1.1-4.5) L 10/01/25 08:20 Sodium 132 mmol/L (137-145) L 10/01/25 08:20 Chloride 91 mmol/L (98-107) L 10/01/25 08:20 Carbon Dioxide 20 mmol/L (22-30) L 10/01/25 08:20 Anion Gap 21 mmol/L (4-12) H 10/01/25 08:20 BUN 98 mg/dL (9-20) H D 10/01/25 08:20 Creatinine 8.02 mg/dL (0.7-1.3) H 10/01/25 08:20 Estimated GFR 7 (59-) L 10/01/25 08:20 Glucose 173 mg/dL (65-110) H 10/01/25 08:20 Calcium 7.7 mg/dL (8.4-10.2) L 10/01/25 08:20 Total Bilirubin 1.4 mg/dL (0.2-1.3) H 10/01/25 08:20 AST 63 U/L (17-59) H 10/01/25 08:20 Most Recent Suicide Severity Rating Suicide Severity Rating NO RISK INDICATED 10/01/25 07:53
--- NOTE | 2025-10-01 10:42 | WNDPHOTO ---
PHOTO ONLY - See Nursing Notes and/ or assessments for documentation.
--- NOTE | 2025-10-01 11:13 | ADMGEN ---
This patient, Gildardo Kat, was admitted to Medical Room 261-01. Patient/family oriented to hospital policies and general routines including ID bracelet, bed and alarms, visiting hours, pain management, procedures, bathroom and other care routines, personal items, smoking policy, room service/diet, and visiting hours. Information on how to activate the Rapid Response Team has been discussed. Patient/Family are encouraged to report perceived risks to care and to ask questions if they do not understand what they are told or what they should do.
--- NOTE | 2025-10-01 12:38 | PC.NURSE ---
This patient, Gildardo Kat, was transferred to ICU-3 on 10/01/25 at 1238. Personal belongings sent with patient. Report given to Melissa. Appropriate documentation sent with patient.
--- NOTE | 2025-10-01 13:06 | P.CONIN_ITS ---
Assessment and Plan Assessment and plan (1) Sepsis: Qualifiers: Sepsis type: sepsis due to unspecified organism Sepsis acute organ dysfunction status: unspecified Qualified Code(s): A41.9 - Sepsis, unspecified organism Code(s): A41.9 - Sepsis, unspecified organism Status: Inactive Assessment and Plan: 10/01: Patient presented the ED with complains of generalized weakness, diarrhea, unable to get up from his bed since 09/27/2025. Patient also missed his dialysis on 09/28 and on 10/01. -in the ED blood pressures were in the 90 systolic -patient was transferred to the medical floor, was hypotensive with systolic blood pressures in 80s, transfer the ICU -patient evaluated, found to be hypotensive and hypovolemic likely related to diarrhea, diuretics, blood pressure medications, examination also revealed dry mucous membranes, abnormal skin turgor -chest x-ray was clear, patient was given 1 L IV fluid bolus with improvement in blood pressures -lactic acid 3.9, will trend -will start maintenance IV fluids at 75 mL/hour for a total of 500 mL -will also infuse albumin 25% q.6 hours x4 doses -patient seems to be intravascularly dry, I discussed this with the slat basket maker who also agrees -10/01: Blood cultures have been ordered -10/01: UA and Urine cultures have been ordered -will start Zosyn and vancomycin, will deescalate once cultures resulted (2) Diarrhea: Qualifiers: Diarrhea type: unspecified type Qualified Code(s): R19.7 - Diarrhea, unspecified Code(s): R19.7 - Diarrhea, unspecified Status: Resolved Assessment and Plan: Patient with diarrhea, according the he has not been on any antibiotics recently 10/01/2025: CT chest, abdomen, pelvis 1. Directed noncontrast exam demonstrates cardiomegaly with patchy areas of groundglass opacification which may represent vascular congestion and early decompensation. Enlarged pulmonary arteries may represent pulmonary arterial hypertension. Atypical inflammatory or infectious process could have a similar appearance. 2. Several lung nodules concerning for metastatic malignant process. Hematogenous infectious process could potentially have a similar appearance. 3. Mildly distended gallbladder but no biliary ductal dilatation seen. Correlate with right upper quadrant ultrasound for optimal evaluation. 4. Possible mild urinary bladder wall thickening. Correlate with urinalysis. 5. 4.4 cm ascending thoracic aortic aneurysm (3) Diabetes mellitus type 2 in obese: Code(s): E11.69 - Type 2 diabetes mellitus with other specified complication; E66.9 - Obesity, unspecified Status: Chronic Assessment and Plan: History of type 2 diabetes, patient is on Lantus 25 units q.12 hours at home along with Humalog 10 units subQ t.i.d. with meals -patient currently NPO -will start Accu-Cheks and sliding scale insulin (4) End-stage renal disease on hemodialysis: Code(s): N18.6 - End stage renal disease; Z99.2 - Dependence on renal dialysis Status: Acute Assessment and Plan: History of end-stage renal disease on dialysis (Jose A, Serena, Nickolas) has missed dialysis on 09/28/2025 and 10/01/2025 -currently hypovolemic -will give fluids cautiously given end-stage renal disease -nephrology was consulted from the ED -discussed with slat basket maker, he agrees with IV fluids at this time -dialysis per slat basket maker (5) Wound of foot: Code(s): S91.309A - Unspecified open wound, unspecified foot, initial encounter Status: Acute Assessment and Plan: Right 4th toe necrotic appearing -wound Care has been consulted (6) Atrial fibrillation/flutter: Status: Acute Assessment and Plan: A history of AFib, on apixaban at home -patient is had some coughing with drinking fluids according the -will obtain speech evaluation if he passes will restart apixaban -will start heparin infusion (7) HTN (hypertension): Qualifiers: Hypertension type: primary hypertension Qualified Code(s): I10 - Essential (primary) hypertension Code(s): I10 - Essential (primary) hypertension Status: Chronic Assessment and Plan: History of hypertension, currently hypotensive will hold all antihypertensive (8) Hypothyroidism: Code(s): E03.9 - Hypothyroidism, unspecified Status: Inactive Assessment and Plan: Since patient is NPO, will switch your levothyroxine to 50% of the dose IV (9) Generalized weakness: Code(s): R53.1 - Weakness Status: Acute Assessment and Plan: In line to be most likely related to hypotension, diarrhea, hypovolemia -10/01: CT scan of the brain with no acute hemorrhage or large acute ischemic event. Possible old right subdural hygroma. Chronic appearing right-sided basal ganglia infarction Plan DVT prophylaxis: Heparin infusion Stress ulcer prophylaxis: Protonix Nutrition: NPO Code Status: Full code Critical Care Time Spent: 49 minutes Discussed with patient's spouse, Landy, at bedside and updated with patient's condition and plan of care. I answered all her questions Due to a high probability of clinically significant, life threatening deterioration, the patient required my highest level of preparedness to intervene emergently and I personally spent this critical care time directly and personally managing the patient. This critical care time included obtaining a history; examining the patient; pulse oximetry; ordering and review of studies; arranging urgent treatment with development of a management plan; evaluation of patient's response to treatment; frequent reassessment; and discussions with other providers. It was exclusive of separately billable procedures and treating other patients and teaching time. Please see Assessment and Plan section and the rest of the note for further information on patient assessment and treatment This dictation may have been done utilizing a voice recognition system. Attempts have been made to correct errors. However, there may be uncorrected grammatical, spelling, and recognitions errors present. 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 Patient has been weak to a point that he was Conn able to get up from his bed. finding the decided to call EMS today and transferred him to the ER. In the ED patient was found to be hypotensive with systolic in the 90s, adequate O2 sats on room air. WBC count of 15.2, hemoglobin 11.0 (baseline hemoglobin between 5.5-8.3) platelets 124, sodium 132, potassium 4.2, chloride 91, CO2 20, BUN 90 and creatinine 8.02. Blood sugars 173, total bilirubin 1.4, AST 63, ALT 35, albumin 3.7 10/01: Chest x-ray: No acute findings, dialysis catheter, pacing device. Patient was transfer the medical floor with no interventions performed in the ER, patient was on the medical floor when the hospitalist at a call that the patient's systolic blood pressures were in the 80s, patient was transferred to the ICU for further management. Upon arrival to the ICU patient was seen and examined, his CBC showed hemoconcentration, chest x-ray was clear, patient seems to be weak, feeble voice, dry oral mucosa. I instructed the nurse to given 1 L IV fluid bolus, I also spoke to the slat basket maker who agrees with the same. Patient is awake, alert, oriented x3, able to follow simple commands in all extremities, appears weak. Denies any chest pain, shortness of breath, abdominal pain, nausea vomiting at this time. Patient's is at bedside who states that he has been coughing when he takes liquids. Patient's also states that he has been taking all his medications until yesterday (09/30/25). He is on amiodarone, Eliquis, bumetanide, clopidogrel, Lantus, levothyroxine, metolazone, metoprolol and tamsulosin. Most of which could have affected his blood blood pressure along with hypovolemia due to diarrhea Review of Systems 2 Review of Systems: All systems reviewed & are unremarkable except as noted in HPI and below PMFSH Past Medical History Medical History Atrial fibrillation/flutter CKD (chronic kidney disease) Stage 3 Pressure ulcer of right foot 2021 BPH (benign prostatic hyperplasia) HTN (hypertension) Congestive heart failure Hypothyroidism Diabetes mellitus type 2 in obese Surgical History Surgical History S/P foot surgery, right 2021 Family History Family History Unknown Diabetes mellitus Social History Social History Social History: Smoking status: Never smoker Alcohol intake: never Substance use: never Substance use type: does not use Do You Feel Safe in your Home?: Yes Lack of Transportation: No Lack of Food: Never True Current Housing: I Have Housing Concerned About Future Housing: No Difficulty Paying Gas/Electric Bills: No Difficulty Paying for Meds: No Currently Unemployed: No Education: High School Diploma/GED Difficulty w/ Childcare or Family Care: No Living arrangements: with family Additional living arrangements comments: Gender identity (if verbalized by the patient): Male Spiritual care concerns: No Meds Home Medications and Allergies Home Medications ?Medication ?Instructions ?Recorded ?Confirmed ?Type atorvastatin 20 mg tablet 20 mg PO HS 06/30/23 5 History amiodarone 200 mg tablet (Pacerone) 200 mg PO Q12HR #6 0 tabs 07/01/23 10/01/25 Rx aspirin 81 mg chewable tablet 81 mg PO DAILY@0800 #30 tabs 07/01/23 10/01/25 Rx (Children's Aspirin) cyclobenzaprine 10 mg tablet 5 mg (1/2 x 10 mg) PO Q8H PRN 07/01/23 10/01/25 Rx Muscle Spasm #30 tabs famotidine 20 mg tablet 20 mg PO DAILY #30 tabs 06/2110/01/25 Rx levothyroxine 50 mcg tablet 50 mcg PO DAILY@0630 #30 t abs 07/01/23 10/01/25 Rx (Synthroid) metoprolol tartrate 25 mg tablet 25 mg PO Q12HR #60 ta bs 07/01/23 10/01/25 Rx tamsulosin 0.4 mg capsule 0.4 mg PO QAM #30 caps 07/0110/01/25 Rx albuterol 90 mcg/actuation aerosol 90 mcg inhalation . q4hr PRN 02/14/25 10/01/25 History inhaler shortness of breath apixaban 5 mg tablet (Eliquis) 5 mg PO BID 02/14/25 History bumetanide 1 mg tablet 1 mg PO BID 02/14/25 5 History insulin glargine 100 unit/mL (3 25 unit subcut .q12hr 02/14/25 10/01/25 History mL) subcutaneous pen (Basaglar KwikPen U-100 Insulin) insulin lispro 100 unit/mL 10 unit subcut TIDWM 10/01/25 History subcutaneous pen (Humalog KwikPen (U-100) Insulin) metolazone 2.5 mg tablet 2.5 mg PO QMWF 02/14/2509/21 History acetaminophen 325 mg tablet 650 mg PO Q4H PRN Pain Rat ed 5 Or 04/12/25 10/01/25 History Less clopidogrel 75 mg tablet 75 mg PO DAILY 04/12/2509/21 History B complex 11-folic acid 1 mg-C 100 1 tablet PO DAILY 1 12/01/24 10/01/25 History mg-biotin 300 mcg-zinc 50 mg tablet (Dialyvite) acetaminophen 500 mg tablet 500 mg PO Q6H PRN fever or pain 10/01/25 10/01/25 History Allergies Allergy/AdvReac Type Severity Reaction Status Date / Time No Known Allergies Allergy Verified 10/01/25 11:39 Vital Signs Vital Signs - 24 hr 10/01/25 07:53 10/01/25 08:00 10/01/25 08:30 Temperature 98.4 F Pulse Rate 86 87 86 Respiratory Rate 14 15 19 Blood Pressure 98/81 L 96/72 L 92/66 L Pulse Oximetry 99 98 97 Oxygen Delivery Room Air 10/01/25 08:45 10/01/25 09:30 10/01/25 10:00 Temperature Pulse Rate 86 87 89 Respiratory Rate 21 H 20 18 Blood Pressure 101/66 90/65 L 95/62 L Pulse Oximetry 96 98 99 Oxygen Delivery 10/01/25 10:17 10/01/25 11:28 10/01/25 11:40 Temperature 99.2 F Pulse Rate 90 105 H Respiratory Rate 14 17 Blood Pressure 102/62 72/42 L Pulse Oximetry 97 96 Oxygen Delivery 10/01/25 12:16 10/01/25 12:50 10/01/25 12:52 Temperature 100.6 F H Pulse Rate 88 Respiratory Rate 32 H Blood Pressure 82/56 L Pulse Oximetry 98 96 Oxygen Delivery Room Air Room Air 10/01/25 13:00 Temperature 100.6 F H Pulse Rate 87 Respiratory Rate 25 H Blood Pressure 95/52 L Pulse Oximetry 98 Oxygen Delivery Exam 2 Narrative: General: Ill-appearing gentleman HEENT:? Pupils equal and reactive nares clear ischemia, significantly dry oral mucosa Neck:? Supple Respiratory:? Clear to auscultation bilaterally, decreased at bases adequate air entry, no wheezing Cardiac:? S1-S2 normal, regular rate and rhythm, pacer spikes noted intermittently Abdomen:? Soft, nontender, nondistended, normoactive bowel sounds Extremities:? Right 4th toe looks necrotic, right foot has only 2 toes rest of the toe was amputated. Trace edema bilateral lower extremity, palpable pedal pulses Neuro:? Patient is weak, feeble voice, awake, oriented x3, answers to questions appropriately and follows simple commands in all extremities Skin:? Dry, poor skin turgor Psych:? Depressed affect, normal mentation Results Labs 10/01/25 08:20 10/01/25 08:20 Labs: Short CBC 10/01/25 Range/Units 08:20 WBC 15.2 H (4.5-10.0) K/mm3 Hgb 11.0 L D (14.0-18.0) g/dL Hct 35.2 L (42.0-52.0) % Plt Count 124 L D (150-375) k/mm3 BMP 10/01/25 08:20 Sodium 132 L Potassium 4.2 Chloride 91 L Carbon Dioxide 20 L BUN 98 H D Creatinine 8.02 H Glucose 173 H Calcium 7.7 L Liver Function 10/01/25 Range/Units 08:20 Total Bilirubin 1.4 H (0.2-1.3) mg/dL AST 63 H (17-59) U/L ALT 35 (6-50) U/L Alkaline Phosphatase 120 (38-126) U/L Albumin 3.7 (3.5-5.1) g/dL Quality VTE Prophylaxis VTE prophylaxis: pharmacologic ordered Hospitalist MIPS Advance Care Plan I have confirmed that the patient's Advanced Care Plan is present, code status is documented, or surrogate decision maker is listed in patient medical record.: Yes Medication Reconciliation I have utilized all available resources to obtain, update and review the patients current medications (includes all prescriptions, OTC, herbals, cannabis, and nutritional supplements).: Yes
[2025-10-01] MEDS: LACTATED RINGERS 1,000 ML 999 ML IV CONT (13:22)
[2025-10-01] MEDS: ALBUMIN HUMAN 25% 25 GM/100 ML 100 ML IVPB ×2 (13:43→19:41)
--- NOTE | 2025-10-01 13:57 | PCSTNOTE ---
Please refer to the Bedside Swallow Evaluation in the EMR. Please note, silent aspiration cannot be ruled out at bedside.
[2025-10-01 14:12] LABS: Thyroid Stimulating Hormone 1.390 uIU/mL (0.465-4.680)
[2025-10-01 14:42] LABS: INR 3.5; Prothrombin Time 33.7 Seconds (11.1-14.7)
[2025-10-01 14:43] LABS: Partial Thromboplastin Time 51.0 Seconds (22.3-36.8)
[2025-10-01 14:58] LABS: MRSA (PCR) DETECTED (NOT DETECTE)
[2025-10-01] MEDS: ACETAMINOPHEN 650 MG SUPPOSITORY RECTAL ×2 (15:08→21:17)
[2025-10-01] MEDS: PIPERACILLIN/TAZOBACTAM SOD 2.25 GM in SODIUM CHLORIDE 0.9% IV 50 ML 100 ML IVPB ×2 (15:50→21:19)
[2025-10-01] MEDS: SODIUM CHLORIDE 0.9% IV 1,000 ML 75 ML IV CONT (15:50)
[2025-10-01] MEDS: HEPARIN SOD/D5W 100 UNITS/ML 25,000 UNITS/250 ML BAG 15 UNITS IV CONT (16:00)
[2025-10-01] MEDS: VANCOMYCIN 2,000 MG/NS 500 ML 2,000 MG/500 ML BAG 250 MG IVPB (16:25)
[2025-10-01 16:29] LABS: Creatine Kinase 163 U/L (55-170)
--- NOTE | 2025-10-01 17:09 | PM.IMHP ---
H&P: HPI History of Present Illness Date/Time: 10/01/25 17:09 Chief Complaint: Weakness Narrative: ER-HPI Narrative: Pt has DM and CRF and a fib on eliquis presents with generalized weakness for 3 days. Pt missed dialysis Tuesday. Called dialysis today and told him to come to ER. Pt denies CP. Pt not eating well but drinking fluids and has had several episodes of diarrhea. says had fever of 100 three days ago but none now. patient with history of ESRD on HD, had not been feeling well and having diarrhea for sometime, upon arrival to the floor patient blood pressure was quite soft most likely to dehydration due to diarrhea and poor po intake, patient was transferred to ICU for hydration in the event needs pressure, will gently hydrate the patient and monitor, patient has missed dialysis 2x, patient Scr is elevated however patient potassium levels are normal, patient will be seen by his mate fishing vessel and further recommendation to follow. patient is present in the room and gave updates. Review of Systems Review of Systems: All systems reviewed & are unremarkable except as noted in HPI and below [facility] Past Medical History Medical History Atrial fibrillation/flutter CKD (chronic kidney disease) Stage 3 Pressure ulcer of right foot 2021 BPH (benign prostatic hyperplasia) HTN (hypertension) Congestive heart failure Hypothyroidism Diabetes mellitus type 2 in obese Surgical History Surgical History S/P foot surgery, right 2021 Family History Family History Unknown Diabetes mellitus Social History Social History Social History: Smoking status: Never smoker Alcohol intake: never Substance use: never Substance use type: does not use Do You Feel Safe in your Home?: Yes Lack of Transportation: No Lack of Food: Never True Current Housing: I Have Housing Concerned About Future Housing: No Difficulty Paying Gas/Electric Bills: No Difficulty Paying for Meds: No Currently Unemployed: No Education: High School Diploma/GED Difficulty w/ Childcare or Family Care: No Living arrangements: with family Additional living arrangements comments: Gender identity (if verbalized by the patient): Male Spiritual care concerns: No Meds Home Medications and Allergies Home Medications ?Medication ?Instructions ?Recorded ?Confirmed ?Type atorvastatin 20 mg tablet 20 mg PO HS 06/30/23 10/01/25 History amiodarone 200 mg tablet (Pacerone) 200 mg PO Q12HR #60 tabs 07/01/23 10/01/25 Rx aspirin 81 mg chewable tablet 81 mg PO DAILY@0800 #30 tabs 07/01/23 10/01/25 Rx (Children's Aspirin) cyclobenzaprine 10 mg tablet 5 mg (1/2 x 10 mg) PO Q8H PRN 07/01/23 10/01/25 Rx Muscle Spasm #30 tabs famotidine 20 mg tablet 20 mg PO DAILY #30 tabs 07/01/23 10/01/25 Rx levothyroxine 50 mcg tablet 50 mcg PO DAILY@0630 #30 tabs 07/01/23 10/01/25 Rx (Synthroid) metoprolol tartrate 25 mg tablet 25 mg PO Q12HR #60 tabs 07/01/23 10/01/25 Rx tamsulosin 0.4 mg capsule 0.4 mg PO QAM #30 caps 07/01/23 10/01/25 Rx albuterol 90 mcg/actuation aerosol 90 mcg inhalation .q4hr PRN 02/14/25 10/01/25 History inhaler shortness of breath apixaban 5 mg tablet (Eliquis) 5 mg PO BID 02/14/25 10/01/25 History bumetanide 1 mg tablet 1 mg PO BID 02/14/25 10/01/25 History insulin glargine 100 unit/mL (3 25 unit subcut .q12hr 02/14/25 10/01/25 History mL) subcutaneous pen (Basaglar KwikPen U-100 Insulin) insulin lispro 100 unit/mL 10 unit subcut TIDWM 02/14/25 10/01/25 History subcutaneous pen (Humalog KwikPen (U-100) Insulin) metolazone 2.5 mg tablet 2.5 mg PO QMWF 02/14/25 10/01/25 History acetaminophen 325 mg tablet 650 mg PO Q4H PRN Pain Rated 5 Or 04/12/25 10/01/25 History Less clopidogrel 75 mg tablet 75 mg PO DAILY 04/12/25 10/01/25 History B complex 11-folic acid 1 mg-C 100 1 tablet PO DAILY 10/01/25 10/01/25 History mg-biotin 300 mcg-zinc 50 mg tablet (Dialyvite) acetaminophen 500 mg tablet 500 mg PO Q6H PRN fever or pain 10/01/25 10/01/25 History Allergies Allergy/AdvReac Type Severity Reaction Status Date / Time No Known Allergies Allergy Verified 10/01/25 11:39 Vital Signs Vital Signs - 24 hr 10/01/25 07:53 10/01/25 08:00 10/01/25 08:30 Temperature 36.9 C Pulse Rate 86 87 86 Respiratory Rate 14 15 19 Blood Pressure 98/81 L 96/72 L 92/66 L Pulse Oximetry 99 98 97 Oxygen Delivery Room Air 10/01/25 08:45 10/01/25 09:30 10/01/25 10:00 Temperature Pulse Rate 86 87 89 Respiratory Rate 21 H 20 18 Blood Pressure 101/66 90/65 L 95/62 L Pulse Oximetry 96 98 99 Oxygen Delivery 10/01/25 10:17 10/01/25 11:28 10/01/25 11:40 Temperature 37.3 C Pulse Rate 90 105 H Respiratory Rate 14 17 Blood Pressure 102/62 72/42 L Pulse Oximetry 97 96 Oxygen Delivery 10/01/25 12:00 10/01/25 12:16 10/01/25 12:50 Temperature 38.1 C H Pulse Rate 86 88 Respiratory Rate 32 H Blood Pressure 82/56 L Pulse Oximetry 98 Oxygen Delivery Room Air 10/01/25 12:52 10/01/25 13:00 10/01/25 14:00 Temperature 38.1 C H 38.2 C H Pulse Rate 87 84 Respiratory Rate 25 H 30 H Blood Pressure 95/52 L 93/53 L Pulse Oximetry 96 98 96 Oxygen Delivery Room Air 10/01/25 15:00 10/01/25 15:08 10/01/25 16:00 Temperature 39.7 C H 39.6 C H Pulse Rate 86 78 Respiratory Rate 25 H 25 H Blood Pressure 87/54 L Pulse Oximetry 99 95 Oxygen Delivery Room Air 10/01/25 16:00 10/01/25 16:00 10/01/25 16:08 Temperature 39.0 C H 39.0 C H Pulse Rate 78 78 Respiratory Rate 23 H Blood Pressure 93/52 L Pulse Oximetry 95 Oxygen Delivery Exam Narrative: Patient is comfortable, NAD HEENT: eyes are clear and none icteric LUNGS:CTA HEART: RR S1S2 ABD: BS+, Soft and nontender Lower extremities: no edema SKIN: nonjaundiced Neuro: grossly intact. H&P: Results Labs Labs: Short CBC 10/01/25 Range/Units 08:20 WBC 15.2 H (4.5-10.0) K/mm3 Hgb 11.0 L D (14.0-18.0) g/dL Hct 35.2 L (42.0-52.0) % Plt Count 124 L D (150-375) k/mm3 BMP 10/01/25 08:20 Sodium 132 L Potassium 4.2 Chloride 91 L Carbon Dioxide 20 L BUN 98 H D Creatinine 8.02 H Glucose 173 H Calcium 7.7 L Cardiac Enzymes 10/01/25 Range/Units 12:17 Total Creatine Kinase 163 (55-170) U/L Liver Function 10/01/25 Range/Units 08:20 Total Bilirubin 1.4 H (0.2-1.3) mg/dL AST 63 H (17-59) U/L ALT 35 (6-50) U/L Alkaline Phosphatase 120 (38-126) U/L Albumin 3.7 (3.5-5.1) g/dL Assessment and Plan Assessment and plan (1) Diabetes mellitus type 2 in obese: Code(s): E11.69 - Type 2 diabetes mellitus with other specified complication; E66.9 - Obesity, unspecified Status: Chronic (2) End-stage renal disease on hemodialysis: Code(s): N18.6 - End stage renal disease; Z99.2 - Dependence on renal dialysis Status: Acute (3) Wound of foot: Code(s): S91.309A - Unspecified open wound, unspecified foot, initial encounter Status: Acute (4) Atrial fibrillation/flutter: Status: Acute (5) HTN (hypertension): Qualifiers: Hypertension type: primary hypertension Qualified Code(s): I10 - Essential (primary) hypertension Code(s): I10 - Essential (primary) hypertension Status: Chronic Plan patient with history of ESRD on HD, had not been feeling well and having diarrhea for sometime, upon arrival to the floor patient blood pressure was quite soft most likely to dehydration due to diarrhea and poor po intake, patient was transferred to ICU for hydration in the event needs pressure, will gently hydrate the patient and monitor, patient has missed dialysis 2x, patient Scr is elevated however patient potassium levels are normal, patient will be seen by his mate fishing vessel and further recommendation to follow. patient is present in the room and gave updates. Quality VTE Prophylaxis VTE prophylaxis: pharmacologic ordered
--- NOTE | 2025-10-01 17:22 | PM.CNNEP ---
Assessment and Plan Assessment and plan (1) End stage renal disease: Code(s): N18.6 - End stage renal disease Status: Chronic Assessment and Plan: initiated on COMMERCIAL OR INSTITUTIONAL CLEANER/dialysis ~ a month ago with acute hospitalization at [facility] apparently missed treatments on 09/28 and 10/01 no critical electrolytes and volume status stable (suspect an element of volume depletion at this time) although BUN is elevated hold dialysis today proceed with cautious IVF resuscitation along with IV albumin follow electrolytes, volume status, and clearance proceed with dialysis once hemodynamics optimized (2) Sepsis: Qualifiers: Sepsis acute organ dysfunction status: unspecified Sepsis type: sepsis due to unspecified organism Qualified Code(s): A41.9 - Sepsis, unspecified organism Code(s): A41.9 - Sepsis, unspecified organism Status: Acute Assessment and Plan: hypotension noted in ER and on admission to medical floor 90 - 100s systolic in the ER 80s systolic on transfer to the floor associated with generalized weakness suspect multifatorial etiology... volume depletion: - diarrhea - poor oral intake - diuretic therapy ongoing BP medications prior to admission early infection: - elevated lactic acid - toe wounds IVF resusctiation within the limits of ESRD status along with IV albumin follow culture data (blood and urine) empiric antibiotic therapy CT imaging (10/01) noted: cardiomegaly with patchy areas of groundglass opacification which may represent vascular congestion and early decompensation enlarged pulmonary arteries may represent pulmonary arterial hypertension...atypical inflammatory or infectious process could have a similar appearance several lung nodules concerning for metastatic malignant process. Hematogenous infectious process could potentially have a similar appearance mildly distended gallbladder but no biliary ductal dilatation seen. Correlate with right upper quadrant ultrasound for optimal evaluation possible mild urinary bladder wall thickening...correlate with urinalysis 4.4 cm ascending thoracic aortic aneurysm follow trend of hemodynamics (3) Wound of foot: Code(s): S91.309A - Unspecified open wound, unspecified foot, initial encounter Status: Acute Assessment and Plan: right 4th toe with necrotic appearance wound care following on antibiotics already (see #2) (4) Atrial fibrillation/flutter: Status: Acute Assessment and Plan: known history Eliquis on hold on heparin gtt for now (5) HTN (hypertension): Qualifiers: Hypertension type: primary hypertension Qualified Code(s): I10 - Essential (primary) hypertension Code(s): I10 - Essential (primary) hypertension Status: Chronic Assessment and Plan: known history however, hypotension noted on admission BP medications on hold follow trend of hemodynamics (6) Peripheral vascular disease: Code(s): I73.9 - Peripheral vascular disease, unspecified Status: Chronic Assessment and Plan: known history and quite severe s/p mutiple interventions in LEs s/p toe amputations as noted (7) Diabetes mellitus type 2 in obese: Code(s): E11.69 - Type 2 diabetes mellitus with other specified complication; E66.9 - Obesity, unspecified Status: Chronic Assessment and Plan: follow accu-checks glycemic control per hospitalist/solar manager (8) Generalized weakness: Code(s): R53.1 - Weakness Status: Acute Assessment and Plan: likely related to acute illness low BP + diarrhea + poor oral intake CT scan of the brain noted: no acute hemorrhage or large acute ischemic event possible old right subdural hygroma chronic appearing right-sided basal ganglia infarction continue supportive therapy I will continue to follow the patient with you while he remains hospitalized and make further recommendations as deemed necessary. Thank you for allowing me to participate in the care of this patient. History of Present Illness Reason for Consult Consult date: 10/01/25 Reason for consult: end stage renal disease Chief Complaint Chief complaint: weakness/renal failure History of Present Illness Narrative: A great majority of the history that I obtained is from review of the electronic medical record as well as discussion with the physician/nurses involved in the patient's care. The patient is a 70-year-old male with extensive past medical history as outlined below who presented to [facility] Emergency Room with complaints of generalized weakness. Apparently, for last 3 or 4 days the patient has been having increased fatigue and weakness. Apparently, his weakness has been so profound that he is unable to get out of bed and do his routine activities. In association with his weakness, he reports on and off diarrhea as well as poor oral intake/hydration and low-grade fevers in the past few days also. given the severity of these symptoms, he missed his dialysis treatment on last Tuesday. When his called his outpatient dialysis unit to report these symptoms as well as the fact that he probably would not be able to go to his scheduled dialysis treatment today, the nursing staff told her that she probably should take him to the ER for further assessment. Hence, she called EMS and the patient was subsequently transported to the emergency room for further assessment. Workup and evaluation emergency room demonstrated the patient be slightly hypotensive in the 90s to 100 systolic range but afebrile and with stable oxygenation. Routine blood work demonstrated white blood cell count of 15.2, hemoglobin 11.0, platelet count 124, sodium 132, potassium 4.2, bicarb 20, BUN 90, creatinine flu a 8.0 to, glucose 173, total bilirubin 1.4, AST 63, ALT 35, and an albumin 3.7. His chest x-ray was negative for any acute pathology other than the presence of his tunneled dialysis catheter and pacer device. No specific intervention was done in the emergency room and he was subsequently admitted to the hospital for further evaluation and therapy. Upon transfer to the floor, his blood pressure deteriorated to the 80 systolic range in association with mild confusion. He was subsequently transferred to the ICU for closer monitoring with a concern for possible sepsis. Given his clinical appearance and laboratory findings of volume depletion, he received a 1 L normal saline bolus which did improve his blood pressure as well as his mentation. Upon further question of his , the patient has continued to take his normal routine medications which include metoprolol, Bumex, and metolazone despite his diminished oral intake and diarrhea. Along with IV fluids, he has also been instituted on IV albumin in effort to volume expand the patient without causing overt volume overload. Renal consultation was requested due to his end-stage renal disease. The patient is somewhat familiar to me as I have taking care of him on previous hospitalizations and seen him in the office with regard to his fairly advanced chronic kidney disease. However, it would seem that on his most recent hospitalization to [facility] about a month ago, his renal function deteriorated to the point where he was instituted on renal replacement therapy/dialysis. Since that time, his been receiving dialysis on a Tuesday, , Tuesday dialysis schedule at [facility] although as already mentioned above, he missed his treatment on Tuesday, 09/28, and today, 10/01/2025. In spite of his known history of end-stage renal disease, he has no critical electrolyte abnormalities, metabolic acidosis, volume overload, or evidence of uremia although his BUN is on the higher side of normal (presumably secondary to his missed dialysis treatments). Given his relative hypotension and clear evidence of hypovolemia, I agree with IV fluid resuscitation and optimization of his hemodynamics prior to any dialytic intervention at this time. We will reassess his status tomorrow to determine if dialysis is needed or if it needs to be held further. Currently, at the time my evaluation, he appears to be in no acute distress. Review of Systems Review of Systems: As per HPI. [facility] Past Medical History Medical History Atrial fibrillation/flutter CKD (chronic kidney disease) Stage 3 Pressure ulcer of right foot 2021 BPH (benign prostatic hyperplasia) HTN (hypertension) Congestive heart failure Hypothyroidism Diabetes mellitus type 2 in obese Surgical History Surgical History S/P foot surgery, right 2021 Family History Family History Unknown Diabetes mellitus Social History Social History Social History: Smoking status: Never smoker Alcohol intake: never Substance use: never Substance use type: does not use Do You Feel Safe in your Home?: Yes Lack of Transportation: No Lack of Food: Never True Current Housing: I Have Housing Concerned About Future Housing: No Difficulty Paying Gas/Electric Bills: No Difficulty Paying for Meds: No Currently Unemployed: No Education: High School Diploma/GED Difficulty w/ Childcare or Family Care: No Living arrangements: with family Additional living arrangements comments: Gender identity (if verbalized by the patient): Male Spiritual care concerns: No Meds Home Medications and Allergies Home Medications ?Medication ?Instructions ?Recorded ?Confirmed ?Type atorvastatin 20 mg tablet 20 mg PO HS 06/30/23 10/01/25 History amiodarone 200 mg tablet (Pacerone) 200 mg PO Q12HR #60 tabs 07/01/23 10/01/25 Rx aspirin 81 mg chewable tablet 81 mg PO DAILY@0800 #30 tabs 07/01/23 10/01/25 Rx (Children's Aspirin) cyclobenzaprine 10 mg tablet 5 mg (1/2 x 10 mg) PO Q8H PRN 07/01/23 10/01/25 Rx Muscle Spasm #30 tabs famotidine 20 mg tablet 20 mg PO DAILY #30 tabs 07/01/23 10/01/25 Rx levothyroxine 50 mcg tablet 50 mcg PO DAILY@0630 #30 tabs 07/01/23 10/01/25 Rx (Synthroid) metoprolol tartrate 25 mg tablet 25 mg PO Q12HR #60 tabs 07/01/23 10/01/25 Rx tamsulosin 0.4 mg capsule 0.4 mg PO QAM #30 caps 07/01/23 10/01/25 Rx albuterol 90 mcg/actuation aerosol 90 mcg inhalation .q4hr PRN 02/14/25 10/01/25 History inhaler shortness of breath apixaban 5 mg tablet (Eliquis) 5 mg PO BID 02/14/25 10/01/25 History bumetanide 1 mg tablet 1 mg PO BID 02/14/25 10/01/25 History insulin glargine 100 unit/mL (3 25 unit subcut .q12hr 02/14/25 10/01/25 History mL) subcutaneous pen (Basaglar KwikPen U-100 Insulin) insulin lispro 100 unit/mL 10 unit subcut TIDWM 02/14/25 10/01/25 History subcutaneous pen (Humalog KwikPen (U-100) Insulin) metolazone 2.5 mg tablet 2.5 mg PO QMWF 02/14/25 10/01/25 History acetaminophen 325 mg tablet 650 mg PO Q4H PRN Pain Rated 5 Or 04/12/25 10/01/25 History Less clopidogrel 75 mg tablet 75 mg PO DAILY 04/12/25 10/01/25 History B complex 11-folic acid 1 mg-C 100 1 tablet PO DAILY 10/01/25 10/01/25 History mg-biotin 300 mcg-zinc 50 mg tablet (Dialyvite) acetaminophen 500 mg tablet 500 mg PO Q6H PRN fever or pain 10/01/25 10/01/25 History Allergies Allergy/AdvReac Type Severity Reaction Status Date / Time No Known Allergies Allergy Verified 10/04/25 14:07 Vital Signs Vital Signs Temp Pulse Resp BP Pulse Ox O2 Del Method 10/01/25 17:00 101.1 F H 76 23 H 102/56 L 94 10/01/25 16:08 102.2 F H 10/01/25 16:00 102.2 F H 78 23 H 93/52 L 95 10/01/25 16:00 78 10/01/25 16:00 78 25 H 95 Room Air 10/01/25 15:08 103.3 F H 10/01/25 15:00 103.5 F H 86 25 H 87/54 L 99 10/01/25 14:00 100.8 F H 84 30 H 93/53 L 96 10/01/25 13:00 100.6 F H 87 25 H 95/52 L 98 10/01/25 12:52 96 Room Air 10/01/25 12:50 100.6 F H 88 32 H 82/56 L 98 10/01/25 12:16 Room Air 10/01/25 12:00 86 10/01/25 11:40 72/42 L 10/01/25 11:28 99.2 F 105 H 17 96 10/01/25 10:17 90 14 102/62 97 10/01/25 10:00 89 18 95/62 L 99 10/01/25 09:30 87 20 90/65 L 98 10/01/25 08:45 86 21 H 101/66 96 10/01/25 08:30 86 19 92/66 L 97 10/01/25 08:00 87 15 96/72 L 98 10/01/25 07:53 98.4 F 86 14 98/81 L 99 Room Air Exam Narrative: GENERAL APPEARANCE: ill-appearing elderly male in no acute distress HEENT: normocephalic, atraumatic, normal conjunctiva and sclera, nares patient NECK: no lymphadenopathy, thyromegaly, or JVD MOUTH: dry mucus membranes CARDIOVASCULAR: RRR, normal S1 and S2, no rub RESPIRATORY: clear anteriorly; decreased at bases ABDOMEN: soft, nontender, nondistended, positive bowel sounds present EXTREMITIES: no evidence of cyanosis, clubbing, trace edema; toe wounds/amputations noted NEUROLOGICAL: awake and alert; no acute focal deficits noted Results Lab Results 10/05/25 04:58 10/05/25 04:58 Lab results: Most recent lab results Calcium 7.7 mg/dL (8.4-10.2) L 10/01/25 08:20
[2025-10-01 17:34] LABS: Hepatitis B Surface Antigen Negative (Negative)
[2025-10-01 17:52] LABS: Hepatitis B Surface Anti Res Negative
[2025-10-01 22:42] LABS: Partial Thromboplastin Time > 200.0 Seconds (22.3-36.8)
[2025-10-02] VITALS (29 sets, daily range): BP systolic 88–113; BP diastolic 48–90; PULSE 62–99; RESP 16–22; TEMP 36.5–38.2; O2SAT 94–100
[2025-10-02] MEDS: ALBUMIN HUMAN 25% 25 GM/100 ML 100 ML IVPB ×4 (00:39→21:52)
[2025-10-02] MEDS: PIPERACILLIN/TAZOBACTAM SOD 2.25 GM in SODIUM CHLORIDE 0.9% IV 50 ML 100 ML IVPB ×3 (05:22→21:30)
[2025-10-02] MEDS: LEVOTHYROXINE SODIUM INJ 100 MCG/5 ML VIAL 25 MCG IV PUSH (05:22)
[2025-10-02 06:16] LABS: Hematocrit 26.7 % (42.0-52.0); Hemoglobin 8.4 g/dL (14.0-18.0); Immature Platelet Fraction Pct 7.2 % (0.9-11.2); Mean Corpuscular HGB Conc 31.5 g/dl (32-36); Mean Corpuscular Hemoglobin 27.3 pg (26-34); Mean Corpuscular Volume 86.7 fl (80-100); Platelet Count Result 82 k/mm3 (150-375); Red Blood Count 3.08 M/mm3 (4.6-6.20); White Blood Count 13.2 K/mm3 (4.5-10.0)
[2025-10-02 06:31] LABS: Partial Thromboplastin Time 159.2 Seconds (22.3-36.8)
[2025-10-02 06:38] LABS: Alanine Aminotransferase 36 U/L (6-50); Albumin Level 3.6 g/dL (3.5-5.1); Alkaline Phosphatase 98 U/L (38-126); Anion Gap 22 mmol/L (4-12); Aspartate Amino Transferase 85 U/L (17-59); Bilirubin,Total 1.9 mg/dL (0.2-1.3); Blood Urea Nitrogen 110 mg/dL (9-20); Calcium 6.9 mg/dL (8.4-10.2); Carbon Dioxide 18 mmol/L (22-30); Chloride 94 mmol/L (98-107); Glucose 162 mg/dL (65-110); Lipase 147 U/L (23-300); Magnesium 2.2 mg/dL (1.6-2.3); Potassium 3.6 mmol/L (3.4-5.0); Sodium 134 mmol/L (137-145); Total Protein 6.9 g/dL (6.3-8.2)
[2025-10-02 06:45] LABS: Band Neutrophils Percent 6 % (0-6); Lymphocytes Absolute Manual 1.45 K/mm3 (1.1-4.5); Lymphocytes Percent Manual 11 % (18-44); Monocytes Absolute Manual 1.05 K/mm3 (0.1-0.90); Monocytes Percent Manual 8 % (3-9); Neutrophils Absolute Manual 10.69 K/mm3 (1.3-6.7); Neutrophils Percent Manual 75 % (46-73); Total Cells Counted 100
[2025-10-02 06:46] LABS: Anisocytosis 1+; Burr Cells 2+; Dohle Bodies Present; Hypersegmented Neutrophils Present; Hypochromasia 1+; Schistocytes None Seen
[2025-10-02 06:50] LABS: Estimated CRCL calculation 11 ml/min; Estimated Glomerular Filt Rate 7
--- NOTE | 2025-10-02 08:08 | WPDINTPN ---
Progress Note: A&P Assessment and Plan (1) Sepsis: Qualifiers: Sepsis acute organ dysfunction status: unspecified Sepsis type: sepsis due to unspecified organism Qualified Code(s): A41.9 - Sepsis, unspecified organism Code(s): A41.9 - Sepsis, unspecified organism Status: Inactive Assessment and Plan: 10/01: Patient presented the ED with complains of generalized weakness, diarrhea, unable to get up from his bed since 09/27/2025. Patient also missed his dialysis on 09/28 and on 10/01. -in the ED blood pressures were in the 90 systolic -patient was transferred to the medical floor, was hypotensive with systolic blood pressures in 80s, transfer the ICU -patient evaluated, found to be hypotensive and hypovolemic likely related to diarrhea, diuretics, blood pressure medications, examination also revealed dry mucous membranes, abnormal skin turgor -chest x-ray was clear, patient was given 1 L IV fluid bolus with improvement in blood pressures -lactic acid 3.9, will trend -will start maintenance IV fluids at 75 mL/hour for a total of 500 mL -will also infuse albumin 25% q.6 hours x4 doses -patient seems to be intravascularly dry, I discussed this with the telemarketing manager who also agrees -10/01: Blood cultures have been ordered -10/01: UA and Urine cultures have been ordered -continue t Zosyn and vancomycin (10/01), will deescalate once cultures resulted -patient has maintained his blood pressures through the night, but they have been borderline. Continues to low volume depleted, will give additional 500 mL IV fluid bolus this morning (2) Diarrhea: Qualifiers: Diarrhea type: unspecified type Qualified Code(s): R19.7 - Diarrhea, unspecified Code(s): R19.7 - Diarrhea, unspecified Status: Resolved Assessment and Plan: Patient with diarrhea, according the he has not been on any antibiotics recently -diarrhea has resolved 10/01/2025: CT chest, abdomen, pelvis 1. Directed noncontrast exam demonstrates cardiomegaly with patchy areas of groundglass opacification which may represent vascular congestion and early decompensation. Enlarged pulmonary arteries may represent pulmonary arterial hypertension. Atypical inflammatory or infectious process could have a similar appearance. 2. Several lung nodules concerning for metastatic malignant process. Hematogenous infectious process could potentially have a similar appearance. 3. Mildly distended gallbladder but no biliary ductal dilatation seen. Correlate with right upper quadrant ultrasound for optimal evaluation. 4. Possible mild urinary bladder wall thickening. Correlate with urinalysis. 5. 4.4 cm ascending thoracic aortic aneurysm (3) Diabetes mellitus type 2 in obese: Code(s): E11.69 - Type 2 diabetes mellitus with other specified complication; E66.9 - Obesity, unspecified Status: Chronic Assessment and Plan: History of type 2 diabetes, patient is on Lantus 25 units q.12 hours at home along with Humalog 10 units subQ t.i.d. with meals -patient currently NPO -continue Accu-Cheks and sliding scale insulin (4) End-stage renal disease on hemodialysis: Code(s): N18.6 - End stage renal disease; Z99.2 - Dependence on renal dialysis Status: Acute Assessment and Plan: History of end-stage renal disease on dialysis ([facility], [facility]) has missed dialysis on 09/28/2025 and 10/01/2025 -currently hypovolemic -will give fluids cautiously given end-stage renal disease -nephrology was consulted from the ED -discussed with telemarketing manager, he agrees with IV fluids at this time -dialysis per telemarketing manager (5) Wound of foot: Code(s): S91.309A - Unspecified open wound, unspecified foot, initial encounter Status: Acute Assessment and Plan: Right 4th toe necrotic appearing -appreciate wound care evaluation and recommendations (6) Atrial fibrillation/flutter: Status: Acute Assessment and Plan: A history of AFib, on apixaban at home -patient is had some coughing with drinking fluids according the -will obtain speech evaluation if he passes will restart apixaban -continue heparin infusion, holding apixaban as patient NPO (7) HTN (hypertension): Qualifiers: Hypertension type: primary hypertension Qualified Code(s): I10 - Essential (primary) hypertension Code(s): I10 - Essential (primary) hypertension Status: Chronic Assessment and Plan: History of hypertension, currently hypotensive will hold all antihypertensive (8) Hypothyroidism: Code(s): E03.9 - Hypothyroidism, unspecified Status: Inactive Assessment and Plan: Since patient is NPO, switched levothyroxine to 50% of the dose IV (9) Generalized weakness: Code(s): R53.1 - Weakness Status: Acute Assessment and Plan: Most likely related to hypotension, diarrhea, hypovolemia -will require PT OT sees ready -10/01: CT scan of the brain with no acute hemorrhage or large acute ischemic event. Possible old right subdural hygroma. Chronic appearing right-sided basal ganglia infarction Plan DVT prophylaxis: Heparin infusion Stress ulcer prophylaxis: Protonix Nutrition: NPO Code Status: Full code Critical Care Time Spent: 32 minutes Discussed with patient's spouse, Landy, at bedside and updated with patient's condition and plan of care. I answered all her questions Due to a high probability of clinically significant, life threatening deterioration, the patient required my highest level of preparedness to intervene emergently and I personally spent this critical care time directly and personally managing the patient. This critical care time included obtaining a history; examining the patient; pulse oximetry; ordering and review of studies; arranging urgent treatment with development of a management plan; evaluation of patient's response to treatment; frequent reassessment; and discussions with other providers. It was exclusive of separately billable procedures and treating other patients and teaching time. Please see Assessment and Plan section and the rest of the note for further information on patient assessment and treatment This dictation may have been done utilizing a voice recognition system. Attempts have been made to correct errors. However, there may be uncorrected grammatical, spelling, and recognitions errors present. Subjective Date/time seen: 10/02/25 08:08 Interval history: Reason for consult: Hypotension, diarrhea, fever cough, abdominal pain, missed 2 sessions of dialysis 09/27 and 10/0110/02/2025: Patient seen examined the ICU, is awake, alert, able to answer questions appropriately, oriented x3 follows simple commands in all extremities. Denies any chest pain, shortness with, abdominal pain, nausea vomiting. Hemodynamically stable, O2 sats have been adequate on 2 L nasal cannula. Patient did make 350 mL in urine output Review of Systems Review of Systems: All systems reviewed & are unremarkable except as noted in HPI and below Exam Narrative: General: Ill-appearing gentleman HEENT:? Pupils equal and reactive nares clear ischemia, dry oral mucosa Neck:? Supple Respiratory:? Clear to auscultation bilaterally, decreased at bases adequate air entry, no wheezing Cardiac:? S1-S2 normal, regular rate and rhythm, pacer spikes noted intermittently Abdomen:? Soft, nontender, nondistended, normoactive bowel sounds Extremities:? Right 4th toe looks necrotic, right foot has only 2 toes rest of the toe was amputated. Trace edema bilateral lower extremity, palpable pedal pulses Neuro:? Patient is weak, feeble voice, awake, oriented x3, answers to questions appropriately and follows simple commands in all extremities Skin:? Dry, poor skin turgor Psych:? Depressed affect, normal mentation Objective Data Vital Signs Vital Signs: Vital Signs - 24 hr 10/01/25 08:30 10/01/25 08:45 10/01/25 09:30 Temperature Pulse Rate 86 86 87 Respiratory Rate 19 21 H 20 Blood Pressure 92/66 L 101/66 90/65 L Pulse Oximetry 97 96 98 Oxygen Delivery Oxygen Flow Rate 10/01/25 10:00 10/01/25 10:17 10/01/25 11:28 Temperature 99.2 F Pulse Rate 89 90 105 H Respiratory Rate 18 14 17 Blood Pressure 95/62 L 102/62 Pulse Oximetry 99 97 96 Oxygen Delivery Oxygen Flow Rate 10/01/25 11:40 10/01/25 12:00 10/01/25 12:16 Temperature Pulse Rate 86 Respiratory Rate Blood Pressure 72/42 L Pulse Oximetry Oxygen Delivery Room Air Oxygen Flow Rate 10/01/25 12:50 10/01/25 12:52 10/01/25 13:00 Temperature 100.6 F H 100.6 F H Pulse Rate 88 87 Respiratory Rate 32 H 25 H Blood Pressure 82/56 L 95/52 L Pulse Oximetry 98 96 98 Oxygen Delivery Room Air Oxygen Flow Rate 10/01/25 14:00 10/01/25 15:00 10/01/25 15:08 Temperature 100.8 F H 103.5 F H 103.3 F H Pulse Rate 84 86 Respiratory Rate 30 H 25 H Blood Pressure 93/53 L 87/54 L Pulse Oximetry 96 99 Oxygen Delivery Oxygen Flow Rate 10/01/25 16:00 10/01/25 16:00 10/01/25 16:00 Temperature 102.2 F H Pulse Rate 78 78 78 Respiratory Rate 25 H 23 H Blood Pressure 93/52 L Pulse Oximetry 95 95 Oxygen Delivery Room Air Oxygen Flow Rate 10/01/25 16:08 10/01/25 17:00 10/01/25 18:00 Temperature 102.2 F H 101.1 F H Pulse Rate 76 98 Respiratory Rate 23 H Blood Pressure 102/56 L Pulse Oximetry 94 Oxygen Delivery Oxygen Flow Rate 10/01/25 18:00 10/01/25 19:00 10/01/25 19:18 Temperature 100.9 F H 100.9 F H Pulse Rate 100 74 72 Respiratory Rate 23 H 18 20 Blood Pressure 85/59 L 105/75 Pulse Oximetry 97 98 96 Oxygen Delivery Room Air Oxygen Flow Rate 10/01/25 19:46 10/01/25 20:00 10/01/25 20:00 Temperature 100.9 F H Pulse Rate 72 71 73 Respiratory Rate 23 H Blood Pressure 105/54 L Pulse Oximetry 98 97 Oxygen Delivery Room Air Oxygen Flow Rate 10/01/25 21:00 10/01/25 21:17 10/01/25 22:00 Temperature 101.1 F H 101.1 F H Pulse Rate 70 70 Respiratory Rate 24 H Blood Pressure 85/58 L Pulse Oximetry 96 Oxygen Delivery Oxygen Flow Rate 10/01/25 22:00 10/01/25 22:17 10/01/25 23:00 Temperature 100.9 F H 100.3 F H Pulse Rate 70 93 Respiratory Rate 23 H 23 H Blood Pressure 87/47 L 95/54 L Pulse Oximetry 97 97 Oxygen Delivery Oxygen Flow Rate 10/01/25 23:39 10/02/25 00:00 10/02/25 00:00 Temperature 100.5 F H Pulse Rate 99 99 Respiratory Rate 22 H Blood Pressure 88/55 L Pulse Oximetry 97 Oxygen Delivery Room Air Oxygen Flow Rate 10/02/25 01:00 10/02/25 02:00 10/02/25 02:00 Temperature 99.5 F Pulse Rate 96 68 67 Respiratory Rate 22 H 22 H Blood Pressure 101/74 106/58 L Pulse Oximetry 97 96 Oxygen Delivery Oxygen Flow Rate 10/02/25 03:00 10/02/25 04:00 10/02/25 04:00 Temperature 99.1 F 98.7 F Pulse Rate 66 65 Respiratory Rate 22 H 20 Blood Pressure 103/58 L 106/59 L Pulse Oximetry 96 99 99 Oxygen Delivery Nasal Cannula Oxygen Flow Rate 2 10/02/25 04:00 10/02/25 05:00 10/02/25 05:20 Temperature Pulse Rate 71 65 64 Respiratory Rate 20 Blood Pressure 90/51 L Pulse Oximetry 98 Oxygen Delivery Oxygen Flow Rate 10/02/25 06:00 10/02/25 07:00 Temperature 98.6 F 98.8 F Pulse Rate 62 66 Respiratory Rate 22 H 16 Blood Pressure 94/57 L 99/58 L Pulse Oximetry 98 98 Oxygen Delivery Oxygen Flow Rate Intake/Output Intake/Output: Intake & Output 09/29/25 09/30/25 10/01/25 10/02/25 23:59 23:59 23:59 23:59 Intake Total 902 328 Output Total 300 50 Balance 602 278 Meds/Results Medications: Active Medications Generic Name Dose Route Start Last Admin Trade Name Freq PRN Reason Stop Dose Admin Acetaminophen 650 mg 10/01/25 13:23 10/01/25 21:17 Acetaminophen 650 Mg Suppository RECTAL 650 mg Q6H PRN Administration Mild Pain (1-3) or Fever Dextrose 12.5 gm 10/01/25 13:04 Dextrose 50% 25 Gm/50 Ml Syringe IV PUSH PRN PRN Hypoglycemia Protocol Glucagon 1 mg 10/01/25 13:04 Glucagon For Inj 1 Mg Vial IM PRN PRN Hypoglycemia Protocol Glucose 15 gm 10/01/25 13:04 Glucose Oral Gel 15 Gm Of Glucse In 37.5 Gm Tube PO PRN PRN Hypoglycemia Protocol Heparin Sodium (Porcine) 7,500 units 10/01/25 14:23 Heparin Sodium 5,000 Units/Ml Vial IV PUSH PRN PRN aPTT less than 55 seconds Heparin Sodium (Porcine) 3,500 units 10/01/25 14:23 Heparin Sodium 5,000 Units/Ml Vial IV PUSH PRN PRN aPTT 55 - 70 seconds Dextrose 1,000 mls @ 100 mls/hr 10/01/25 13:04 Dextrose 5% 1,000 Ml IVPB PRN PRN Hypoglycemia Protocol Piperacillin Sod/Tazobactam 50 mls @ 100 mls/hr 10/01/25 15:00 10/02/25 06:12 Sod 2.25 gm/ Sodium Chloride IVPB Infused Q8HR TORY Infusion Heparin Sodium/Dextrose 25,000 units in 250 mls @ 9 mls/hr 10/01/25 14:25 10/02/25 07:31 Heparin Sodium/D5w 100 Units/Ml IV CONT 900 units/hr .Q24H TORY 9 mls/hr Protocol Titration 900 UNITS/HR Lactated Ringer's 500 mls @ 500 mls/hr 10/02/25 08:07 Lactated Ringers IV CONT 10/02/25 09:06 .Q1H ONE Insulin Aspart 3 - 6 units 10/01/25 18:00 10/02/25 06:41 Insulin Aspart (*Bkc) 100 Units/Ml SUB-Q Not Given Q6HR REPLACED BY [facility] Protocol Levothyroxine Sodium 25 mcg 10/02/25 06:30 10/02/25 05:22 Levothyroxine Sodium Inj 100 Mcg/5 Ml Vial IV PUSH 25 mcg DAILY@0630 REPLACED BY [facility] Administration Pantoprazole Sodium 40 mg 10/02/25 09:00 Pantoprazole Sodium Iv 40 Mg Vial IV PUSH QAM REPLACED BY [facility] Vancomycin HCl 1 each 10/01/25 15:02 Vancomycin For Hemodialysis IVPB PRN PRN Vancomycin Protocol Radiology Results: ITS Impressions Head CT 10/01/25 13:35 IMPRESSION: 1. No acute hemorrhage or large acute ischemic event. 2. Possible old right subdural hygroma. 3. Chronic appearing right-sided basal ganglia infarction. Chest/Abdomen/Pelvis CT 10/01/25 13:38 IMPRESSION: 1. Directed noncontrast exam demonstrates cardiomegaly with patchy areas of groundglass opacification which may represent vascular congestion and early decompensation. Enlarged pulmonary arteries may represent pulmonary arterial hypertension. Atypical inflammatory or infectious process could have a similar appearance. 2. Several lung nodules concerning for metastatic malignant process. Hematogenous infectious process could potentially have a similar appearance. 3. Mildly distended gallbladder but no biliary ductal dilatation seen. Correlate with right upper quadrant ultrasound for optimal evaluation. 4. Possible mild urinary bladder wall thickening. Correlate with urinalysis. 5. 4.4 cm ascending thoracic aortic aneurysm Chest X-Ray 10/02/25 08:00 IMPRESSION: 1. Possible small area of consolidation or atelectasis left lung base. Labs Labs: Laboratory Results - last 24 hr 10/01/25 10/01/25 10/01/25 08:20 08:26 12:05 WBC 15.2 H RBC 4.04 L Hgb 11.0 L D Hct 35.2 L MCV 87.1 MCH 27.2 MCHC 31.3 L RDW 18.2 H Plt Count 124 L D MPV 11.3 H Immature Gran % (Auto) Not Reportable Neut % (Auto) Not Reportable Lymph % (Auto) Not Reportable [place] % (Auto) Not Reportable Eos % (Auto) Not Reportable Baso % (Auto) Not Reportable Lymph # (Auto) Not Reportable [place] # (Auto) Not Reportable Eos # (Auto) Not Reportable Baso # (Auto) Not Reportable Abs Immat Gran (auto) Not Reportable Absolute Neuts (auto) Not Reportable Absolute Nucleated RBC Not Reportable Total Counted 100 Neutrophils % (Manual) 89 H Band Neutrophils % 5 Lymphocytes % (Manual) 5 L Monocytes % (Manual) 1 L Nucleated RBC % Not Reportable Abs Neuts (Manual) 14.28 H Abs Lymphs (Manual) 0.76 L Abs Monocytes (Manual) 0.15 Hypersegmented Neuts Dohle Bodies Present Platelet Estimate Slightly decreased Giant Platelets Present % Immature Plt Fraction Polychromasia 1+ Hypochromasia 1+ Anisocytosis 1+ Ynes Cells 1+ Schistocytes None seen PT INR APTT Sodium 132 L Potassium 4.2 Chloride 91 L Carbon Dioxide 20 L Anion Gap 21 H BUN 98 H D Creatinine 8.02 H Estim Creat Clear Calc 10 Estimated GFR 7 L Glucose 173 H POC Capillary Glucose Lactic Acid Calcium 7.7 L Phosphorus Magnesium Total Bilirubin 1.4 H AST 63 H ALT 35 Alkaline Phosphatase 120 Total Creatine Kinase Total Protein 7.9 Albumin 3.7 Lipase TSH Nasal MRSA (PCR) Detected A* Random Vancomycin Hep Bs Antigen Hep Bs Antibody Influenza A (RT-PCR) Negative Influenza B (RT-PCR) Negative RSV (RT-PCR) Negative SARS-CoV-2 RNA (RT-PCR) Negative 10/01/25 10/01/25 10/01/25 12:12 12:17 12:17 WBC RBC Hgb Hct MCV MCH MCHC RDW Plt Count MPV Immature Gran % (Auto) Neut % (Auto) Lymph % (Auto) [place] % (Auto) Eos % (Auto) Baso % (Auto) Lymph # (Auto) [place] # (Auto) Eos # (Auto) Baso # (Auto) Abs Immat Gran (auto) Absolute Neuts (auto) Absolute Nucleated RBC Total Counted Neutrophils % (Manual) Band Neutrophils % Lymphocytes % (Manual) Monocytes % (Manual) Nucleated RBC % Abs Neuts (Manual) Abs Lymphs (Manual) Abs Monocytes (Manual) Hypersegmented Neuts Dohle Bodies Platelet Estimate Giant Platelets % Immature Plt Fraction Polychromasia Hypochromasia Anisocytosis [place] Cells Schistocytes PT INR APTT Sodium Potassium Chloride Carbon Dioxide Anion Gap BUN Creatinine Estim Creat Clear Calc Estimated GFR Glucose POC Capillary Glucose Lactic Acid 3.9 H Calcium Phosphorus Magnesium Total Bilirubin AST ALT Alkaline Phosphatase Total Creatine Kinase 163 Total Protein Albumin Lipase TSH Cancelled 1.390 Nasal MRSA (PCR) Random Vancomycin Hep Bs Antigen Negative Hep Bs Antibody Negative Influenza A (RT-PCR) Influenza B (RT-PCR) RSV (RT-PCR) SARS-CoV-2 RNA (RT-PCR) 10/01/25 10/01/25 10/01/25 14:19 15:41 17:46 WBC RBC Hgb Hct MCV MCH MCHC RDW Plt Count MPV Immature Gran % (Auto) Neut % (Auto) Lymph % (Auto) [place] % (Auto) Eos % (Auto) Baso % (Auto) Lymph # (Auto) [place] # (Auto) Eos # (Auto) Baso # (Auto) Abs Immat Gran (auto) Absolute Neuts (auto) Absolute Nucleated RBC Total Counted Neutrophils % (Manual) Band Neutrophils % Lymphocytes % (Manual) Monocytes % (Manual) Nucleated RBC % Abs Neuts (Manual) Abs Lymphs (Manual) Abs Monocytes (Manual) Hypersegmented Neuts Dohle Bodies Platelet Estimate Giant Platelets % Immature Plt Fraction Polychromasia Hypochromasia Anisocytosis Ynes Cells Schistocytes PT 33.7 H INR 3.5 APTT 51.0 H Sodium Potassium Chloride Carbon Dioxide Anion Gap BUN Creatinine Estim Creat Clear Calc Estimated GFR Glucose POC Capillary Glucose 184 H Lactic Acid 3.1 H Calcium Phosphorus Magnesium Total Bilirubin AST ALT Alkaline Phosphatase Total Creatine Kinase Total Protein Albumin Lipase TSH Nasal MRSA (PCR) Random Vancomycin Hep Bs Antigen Hep Bs Antibody Influenza A (RT-PCR) Influenza B (RT-PCR) RSV (RT-PCR) SARS-CoV-2 RNA (RT-PCR) 10/01/25 10/01/25 10/02/25 22:10 23:49 06:01 WBC 13.2 H RBC 3.08 L Hgb 8.4 L Hct 26.7 L MCV 86.7 MCH 27.3 MCHC 31.5 L RDW 18.4 H Plt Count 82 L MPV 13.1 H Immature Gran % (Auto) Not Reportable Neut % (Auto) Not Reportable Lymph % (Auto) Not Reportable [place] % (Auto) Not Reportable Eos % (Auto) Not Reportable Baso % (Auto) Not Reportable Lymph # (Auto) Not Reportable [place] # (Auto) Not Reportable Eos # (Auto) Not Reportable Baso # (Auto) Not Reportable Abs Immat Gran (auto) Not Reportable Absolute Neuts (auto) Not Reportable Absolute Nucleated RBC Not Reportable Total Counted 100 Neutrophils % (Manual) 75 H Band Neutrophils % 6 Lymphocytes % (Manual) 11 L Monocytes % (Manual) 8 Nucleated RBC % Not Reportable Abs Neuts (Manual) 10.69 H Abs Lymphs (Manual) 1.45 Abs Monocytes (Manual) 1.05 H Hypersegmented Neuts Present Dohle Bodies Present Platelet Estimate Decreased Giant Platelets % Immature Plt Fraction 7.2 Polychromasia Hypochromasia 1+ Anisocytosis 1+ [place] Cells 2+ Schistocytes None seen PT INR APTT > 200.0 H* 159.2 H Sodium 134 L Potassium 3.6 Chloride 94 L Carbon Dioxide 18 L Anion Gap 22 H BUN 110 H* D Creatinine 7.60 H Estim Creat Clear Calc 11 Estimated GFR 7 L Glucose 162 H POC Capillary Glucose 164 H Lactic Acid 1.4 Calcium 6.9 L Phosphorus 5.8 H Magnesium 2.2 Total Bilirubin 1.9 H AST 85 H ALT 36 Alkaline Phosphatase 98 Total Creatine Kinase Total Protein 6.9 Albumin 3.6 Lipase 147 TSH Nasal MRSA (PCR) Random Vancomycin 21.0 H Hep Bs Antigen Hep Bs Antibody Influenza A (RT-PCR) Influenza B (RT-PCR) RSV (RT-PCR) SARS-CoV-2 RNA (RT-PCR) Quality VTE Prophylaxis VTE prophylaxis: pharmacologic ordered
[2025-10-02] MEDS: PANTOPRAZOLE SODIUM IV 40 MG VIAL IV PUSH (08:18)
[2025-10-02] MEDS: LACTATED RINGERS 500 ML IV CONT (08:18)
[2025-10-02 11:06] LABS: Toxigenic C. Diff NEGATIVE (NEGATIVE)
[2025-10-02] MEDS: HEPARIN SOD/D5W 100 UNITS/ML 25,000 UNITS/250 ML BAG 9 UNITS IV CONT (13:12)
--- NOTE | 2025-10-02 13:26 | P.PNNP_ITS ---
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 on [employer]/dialysis ~ a month ago with acute hospitalization at [facility] * apparently missed treatments on 09/28 and 10/01 * on T/T/S schedule at [facility] * no critical electrolytes and relatively volume status stable * suspect an element of volume depletion on admisison * BUN due lack of clearance for missed dialysis treatments, volume depletion, and #2 * hold dialysis for today * cautious IVF resuscitation along with IV albumin * follow electrolytes, volume status, and clearance * proceed with dialysis once hemodynamics optimized - likely tomorrow (2) Sepsis: Qualifiers: Sepsis acute organ dysfunction status: unspecified Sepsis type: sepsis due to unspecified organism Qualified Code(s): A41.9 - Sepsis, unspecified organism Code(s): A41.9 - Sepsis, unspecified organism Status: Acute Assessment and Plan: * hypotension noted in ER and on admission to medical floor * 90 - 100s systolic in the ER * 80s systolic on transfer to the floor * associated with generalized weakness * suspect multifactorial etiology... * volume depletion: - diarrhea - poor oral intake - diuretic therapy * ongoing BP medications prior to admission * early infection: - elevated lactic acid (has normalized) - toe wounds * IVF resuscitation within the limits of ESRD status along with IV albumin * follow culture data (blood and urine) * empiric antibiotic therapy * CT imaging (10/01) noted: * cardiomegaly with patchy areas of groundglass opacification which may represent vascular congestion and early decompensation * enlarged pulmonary arteries may represent pulmonary arterial hypertension...atypical inflammatory or infectious process could have a similar appearance * several lung nodules concerning for metastatic malignant process. Hematogenous infectious process could potentially have a similar appearance * mildly distended gallbladder but no biliary ductal dilatation seen. Correlate with right upper quadrant ultrasound for optimal evaluation * ossible mild urinary bladder wall thickening...correlate with urinalysis * 4.4 cm ascending thoracic aortic aneurysm * follow trend of hemodynamics (3) Wound of foot: Code(s): S91.309A - Unspecified open wound, unspecified foot, initial encounter Status: Acute Assessment and Plan: * right 4th toe necrotic appeaarance * wound care following * on antibiotics already (see #2) (4) Atrial fibrillation/flutter: Status: Acute Assessment and Plan: * known history * Eliquis on hold * on heparin gtt for now (5) HTN (hypertension): Qualifiers: Hypertension type: primary hypertension Qualified Code(s): I10 - Essential (primary) hypertension Code(s): I10 - Essential (primary) hypertension Status: Chronic Assessment and Plan: * known history * however, hypotension noted on admission * BP medications on hold * follow trend of hemodynamics (6) Peripheral vascular disease: Code(s): I73.9 - Peripheral vascular disease, unspecified Status: Chronic Assessment and Plan: * known history and quite severe * s/p mutiple interventions in LEs * s/p toe amputations as noted (7) Diabetes mellitus type 2 in obese: Code(s): E11.69 - Type 2 diabetes mellitus with other specified complication; E66.9 - Obesity, unspecified Status: Chronic Assessment and Plan: * follow accu-checks * glycemic control per hospitalist/rn ccu (8) Generalized weakness: Code(s): R53.1 - Weakness Status: Acute Assessment and Plan: * likely related to acute illness * low BP + diarrhea + poor oral intake * CT scan of the brain noted: * no acute hemorrhage or large acute ischemic event * possible old right subdural hygroma * chronic appearing right-sided basal ganglia infarction * continue supportive therapy Discussed case with Dr. Perry Will continue to follow. L Subjective Date/time seen: 10/02/25 13:26 Interval history: Follow-up for end stage renal disease on hemodialysis. Better hemodynamics noted with IVFs and IV albumin; no apparent distress noted at the time of my visit; no other acute issues/events overnight or earlier this morning; febrile overnight with a Tmax of 101.1?. Exam 2 Narrative: General: ill-appearing elderly male in no acute distress Heart: normal S1 and S2; no rub Lungs: clear anteriorly; decreased at bases Abdomen: soft, nontender, nondistended, positive bowel sounds Extremities: no cyanosis or clubbing; trace edema Skin: toe wounds/amputations noted Objective Data Vital Signs Vital Signs: Vital Signs Temp Pulse Resp BP Pulse Ox O2 Del Method O2 Flow Rate 10/02/25 13:00 99.4 F 63 22 H 99/55 L 100 10/02/25 12:00 99.4 F 65 21 H 107/60 100 11/12/25 12:00 65 10/02/25 12:00 65 21 H 100 Nasal Cannula 2 10/02/25 11:00 98.9 F 65 22 H 89/54 L 100 10/02/25 10:05 100 Nasal Cannula 2 10/02/25 10:00 98.9 F 64 22 H 102/58 L 100 10/02/25 10:00 64 10/02/25 09:00 97.7 F 64 18 94/55 L 94 10/02/25 08:00 98.8 F 66 16 99/58 L 98 10/02/25 08:00 66 10/02/25 08:00 66 16 98 Nasal Cannula 2 10/02/25 07:00 98.8 F 66 16 99/58 L 98 10/02/25 06:00 98.6 F 62 22 H 94/57 L 98 10/02/25 05:20 64 10/02/25 05:00 65 20 90/51 L 98 10/02/25 04:00 71 10/02/25 04:00 98.7 F 65 20 106/59 L 99 10/02/25 04:00 99 Nasal Cannula 2 10/02/25 03:00 99.1 F 66 22 H 103/58 L 96 10/02/25 02:00 67 10/02/25 02:00 99.5 F 68 22 H 106/58 L 96 10/02/25 01:00 96 22 H 101/74 97 10/02/25 00:00 99 10/02/25 00:00 100.5 F H 99 22 H 88/55 L 97 10/01/25 23:39 Room Air 10/01/25 23:00 93 23 H 95/54 L 97 10/01/25 22:17 100.3 F H 10/01/25 22:00 100.9 F H 70 23 H 87/47 L 97 10/01/25 22:00 70 10/01/25 21:17 101.1 F H 10/01/25 21:00 101.1 F H 70 24 H 85/58 L 96 10/01/25 20:00 73 10/01/25 20:00 100.9 F H 71 23 H 105/54 L 97 10/01/25 19:46 72 98 Room Air 10/01/25 19:18 72 20 96 Room Air 10/01/25 19:00 100.9 F H 74 18 105/75 98 10/01/25 18:00 100.9 F H 100 23 H 85/59 L 97 10/01/25 18:00 98 Intake/Output Intake/Output: Intake & Output 09/29/25 09/30/25 10/01/25 10/02/25 23:59 23:59 23:59 23:59 Intake Total 902 438.7 Output Total 300 100 Balance 602 338.7 Meds/Results Medications: Active Medications Generic Name Dose Route Start Last Admin Trade Name Freq PRN Reason Stop Dose Admin Acetaminophen 650 mg 10/01/25 13:23 10/02/25 14:00 Acetaminophen 650 Mg Suppository RECTAL 650 mg Q6H PRN Administration Mild Pain (1-3) or Fever Dextrose 12.5 gm 10/01/25 13:04 Dextrose 50% 25 Gm/50 Ml Syringe IV PUSH PRN PRN Hypoglycemia Protocol Glucagon 1 mg 10/01/25 13:04 Glucagon For Inj 1 Mg Vial IM PRN PRN Hypoglycemia Protocol Glucose 15 gm 10/01/25 13:04 Glucose Oral Gel 15 Gm Of Glucse In 37.5 Gm Tube PO PRN PRN Hypoglycemia Protocol Heparin Sodium (Porcine) 7,500 units 10/01/25 14:23 Heparin Sodium 5,000 Units/Ml Vial IV PUSH PRN PRN aPTT less than 55 seconds Heparin Sodium (Porcine) 3,500 units 10/01/25 14:23 Heparin Sodium 5,000 Units/Ml Vial IV PUSH PRN PRN aPTT 55 - 70 seconds Dextrose 1,000 mls @ 100 mls/hr 10/01/25 13:04 Dextrose 5% 1,000 Ml IVPB PRN PRN Hypoglycemia Protocol Piperacillin Sod/Tazobactam 50 mls @ 100 mls/hr 10/01/25 15:00 10/02/25 14:23 Sod 2.25 gm/ Sodium Chloride IVPB Infused Q8HR TORY Infusion Heparin Sodium/Dextrose 25,000 units in 250 mls @ 9 mls/hr 10/01/25 14:25 10/02/25 14:16 Heparin Sodium/D5w 100 Units/Ml IV CONT 900 units/hr .Q24H TORY 9 mls/hr Protocol Titration 900 UNITS/HR Albumin Human 100 mls @ 60 mls/hr 10/02/25 14:26 10/02/25 14:56 Albutein IVPB 10/03/25 07:39 60 mls/hr Q8HR TORY Administration Insulin Aspart 3 - 6 units 10/01/25 18:00 10/02/25 12:15 Insulin Aspart (*Bkc) 100 Units/Ml SUB-Q Not Given Q6HR [facility] Protocol Levothyroxine Sodium 25 mcg 10/02/25 06:30 10/02/25 05:22 Levothyroxine Sodium Inj 100 Mcg/5 Ml Vial IV PUSH 25 mcg DAILY@0630 TORY Administration Pantoprazole Sodium 40 mg 10/02/25 09:00 10/02/25 08:18 Pantoprazole Sodium Iv 40 Mg Vial IV PUSH 40 mg QAM TORY Administration Vancomycin HCl 1 each 10/01/25 15:02 Vancomycin For Hemodialysis IVPB PRN PRN Vancomycin Protocol Radiology Results: ITS Impressions Head CT 10/01/25 13:35 IMPRESSION: 1. No acute hemorrhage or large acute ischemic event. 2. Possible old right subdural hygroma. 3. Chronic appearing right-sided basal ganglia infarction. Chest/Abdomen/Pelvis CT 10/01/25 13:38 IMPRESSION: 1. Directed noncontrast exam demonstrates cardiomegaly with patchy areas of groundglass opacification which may represent vascular congestion and early decompensation. Enlarged pulmonary arteries may represent pulmonary arterial hypertension. Atypical inflammatory or infectious process could have a similar appearance. 2. Several lung nodules concerning for metastatic malignant process. Hematogenous infectious process could potentially have a similar appearance. 3. Mildly distended gallbladder but no biliary ductal dilatation seen. Correlate with right upper quadrant ultrasound for optimal evaluation. 4. Possible mild urinary bladder wall thickening. Correlate with urinalysis. 5. 4.4 cm ascending thoracic aortic aneurysm Chest X-Ray 10/02/25 08:00 IMPRESSION: 1. Possible small area of consolidation or atelectasis left lung base. Labs Labs: Laboratory Tests 10/02/25 06:01 10/02/25 06:01 Lactic Acid 1.4 Calcium 6.9 L Phosphorus 5.8 H Magnesium 2.2 Total Bilirubin 1.9 H AST 85 H ALT 36 Alkaline Phosphatase 98 Total Protein 6.9 Albumin 3.6 Lipase 147 Random Vancomycin 21.0 H
[2025-10-02] MEDS: ACETAMINOPHEN 650 MG SUPPOSITORY RECTAL (14:00)
[2025-10-02 14:01] LABS: Partial Thromboplastin Time 92.2 Seconds (22.3-36.8)
[2025-10-02 20:05] LABS: Partial Thromboplastin Time 71.3 Seconds (22.3-36.8)
[2025-10-03] VITALS (44 sets, daily range): BP systolic 85–126; BP diastolic 52–70; PULSE 60–77; RESP 11–25; TEMP 36.7–39.1; O2SAT 97–100; BMI 33.5
--- NOTE | 2025-10-03 | ECHO_ITS ---
Patient Info Name: Gildardo Kat Age: 70 years : 1955 Gender: Male Ht: 73 in Wt: 240 lbs BSA: 2.40 m2 HR: 62 bpm BP: 105 / 60 mmHg Technical Quality: Fair Exam Date: 10/03/2025 9:08 AM Patient Status: I Admit Date: 10/02/2025 Exam Type: CA echo dop color flow w con Complete two-dimensional, color flow and Doppler transthoracic echocardiogram is performed with contrast to opacify the left ventricle and to improve the deliniation of the left ventricle endocardial borders. Staff Referring Physician: Saw Perry MD Outboard System Operator: Ry Bro III Attending Provider: Melissa Vergara MD Contrast/Agitated Saline Contrast/Ag. Saline: Definity Amount: 2.00 ml Administered By: Ry Bro III Existing IV Access: Yes IV Access Condition: patent with no signs of infiltration Summary 1. The left ventricle is normal in size with moderately reduced systolic function. The left ventricular ejection fraction is visually estimated to be 35-40%. 2. Linear artifact in right ventricle suggestive of catheter(s), pacemaker lead(s), or ICD lead(s). 3. The right ventricle is dilated with mildly reduced systolic function. 4. Linear artifact in the right atrium suggestive of catheter(s), pacemaker lead(s), or ICD lead(s). 5. 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 There is mild tricuspid regurgitation. Left Ventricle The left ventricle is normal in size with moderately reduced systolic function. The left ventricular ejection fraction is visually estimated to be 35-40%. Right Ventricle The right ventricle is dilated with mildly reduced systolic function. Linear artifact in right ventricle suggestive of catheter(s), pacemaker lead(s), or ICD lead(s). Left Atria The left atrium is moderately dilated. Right Atria Linear artifact in the right atrium suggestive of catheter(s), pacemaker lead(s), or ICD lead(s). The right atrium is normal size. Aortic Valve The aortic valve is trileaflet and opens well. There is trace aortic regurgitation. Pulmonic Valve The pulmonic valve is normal. There is mild pulmonic valve regurgitation. Mitral Valve The mitral valve leaflets are sclerotic. There is posterior mitral annular calcification. There is no mitral stenosis. There is mild mitral regurgitation. Tricuspid Valve There is evidence of endocarditis measuring 1.6 x 1.1cm along the septal leaflet of the tricuspid valve. There is mild tricuspid regurgitation. Pericardium/Pleural Pericardium is normal in appearance with no evidence for significant pericardial effusion. Inferior Vena Cava Dilated inferior vena cava with <50% collapse upon inspiration consistent with significantly elevated right atrial pressure, 15 mmHg. Aorta The aortic root at the level of the sinus of Valsalva is dilated measuring 4.5 cm. Left Ventricular Outflow Tract Name Value Normal LVOT 2D LVOT Diameter 2.5 cm LVOT Doppler LVOT Peak Velocity 65 cm/s LVOT Peak Gradient 2 mmHg LVOT Mean Gradient 1 mmHg LVOT VTI 15 cm LVOT VTI/AV VTI Ratio 0.9 LVOT Stroke Volume 74 ml LVOT CO 4.4 l/min LVOT CI 1.8 l/min/m2 Pulmonic Valve Name Value Normal PV Doppler PV Peak Velocity 70 cm/s PV Peak Gradient 2 mmHg PV Mean Gradient 1 mmHg PV Regurgitation Doppler NM Peak End Diastolic Velocity 128 cm/s Mitral Valve Name Value Normal MV Doppler MV Peak Gradient 5 mmHg MV Mean Gradient 2 mmHg MV Area (Cont Eq VTI) 2.2 cm2 MV Diastolic Function MV E Peak Velocity 103 cm/s MV A Peak Velocity 86 cm/s MV E/A 1.2 MV Decel Time (PW) 245 ms MV Annular TDI MV E/e' (Septal) 20.7 MV E/e' (Lateral) 9.8 MV E/e' (Average) 15.3 Tricuspid Valve Name Value Normal TV Regurgitation Doppler TR Peak Velocity 268 cm/s TR Peak Gradient 29 mmHg Estimated PAP/RSVP RA Pressure 15 mmHg <=5 PA Systolic Pressure 44 mmHg <36 RV Systolic Pressure 44 mmHg <36 TV Annular TDI TV Lateral Dior s' Velocity 10.3 cm/s >=9.5 Aortic Valve Name Value Normal AV Doppler AV Peak Velocity 80 cm/s AV Peak Gradient 3 mmHg AV Mean Gradient 1 mmHg AV VTI 17 cm AV Area (Cont Eq VTI) 4.4 cm2 >=3.0 AV Area (Cont Eq Jimmie) 4.0 cm2 AV DI (Jimmie) 0.82 AV Regurgitation 2D LVOT Area 4.8 cm2 Ventricles Name Value Normal LV Dimensions 2D/MM IVS Diastolic Thickness (2D) 1.2 cm 0.6-1.0 LVID Diastole (2D) 5.0 cm 4.2-5.8 LVIW Diastolic Thickness (2D) 0.7 cm 0.6-1.0 LVID Systole (2D) 4.3 cm 2.5-4.0 LVOT Diameter 2.5 cm LV Mass (2D Cubed) 170.00 g 88.00-224.00 LV Mass Index (2D Cubed) 71 g/m2 49-115 Relative Wall Thickness (2D) 0.27 <=0.42 LV Fractional Shortening/Ejection Fraction 2D/MM LV Fractional Shortening (2D) 15 % 25-43 LV EF (2D Teichholz) 30 % LV Diastolic Volume (4C MOD) 82 ml LV EF (4C MOD) 26 % LV Diastolic Volume (2C MOD) 91 ml LV EF (2C MOD) 28 % LV Diastolic Volume (BP MOD) 87 ml 62-150 LV Diastolic Volume Index (BP MOD) 36 ml/m2 34-74 LV Systolic Volume (BP MOD) 54 ml 21-61 LV Systolic Volume Index (BP MOD) 23 ml/m2 11-31 LV EF (BP MOD) 38 % 52-72 LV Diastolic Length (4C) 8.3 cm LV Systolic Length (4C) 8.2 cm LV Stroke Volume (4C MOD) 21 ml Atria Name Value Normal LA Dimensions LA Volume (4C A-L) 158 ml LA Volume (BP A-L) 123 ml RA Dimensions RA Systolic Major [place] Length (4C) 6.2 cm 2.1-2.7 RA Area (4C) 33.6 cm2 <=18.0 Report Signatures
[2025-10-03] MEDS: ACETAMINOPHEN 650 MG SUPPOSITORY RECTAL ×3 (00:04→22:37)
[2025-10-03] MEDS: LEVOTHYROXINE SODIUM INJ 100 MCG/5 ML VIAL 25 MCG IV PUSH (04:52)
[2025-10-03] MEDS: PIPERACILLIN/TAZOBACTAM SOD 2.25 GM in SODIUM CHLORIDE 0.9% IV 50 ML 100 ML IVPB ×3 (04:52→21:42)
[2025-10-03] MEDS: ALBUMIN HUMAN 25% 25 GM/100 ML 100 ML IVPB (04:52)
[2025-10-03 05:54] LABS: Hematocrit 26.6 % (42.0-52.0); Hemoglobin 8.3 g/dL (14.0-18.0); Immature Granulocyte Percent A 9.8 % (0-0.5); Immature Platelet Fraction Pct 7.6 % (0.9-11.2); Lymphocytes Absolute Auto 0.83 K/mm3 (0.9-3.2); Mean Corpuscular HGB Conc 31.2 g/dl (32-36); Mean Corpuscular Hemoglobin 26.9 pg (26-34); Mean Corpuscular Volume 86.4 fl (80-100); Nucleated Red Blood Cells Absolute Auto 0.060 K/mm3 (0.0-0.012); Nucleated Red Blood Cells Perc 0.6 % (0.0-0.2); Platelet Count Result 71 k/mm3 (150-375); Red Blood Count 3.08 M/mm3 (4.6-6.20); White Blood Count 10.6 K/mm3 (4.5-10.0)
[2025-10-03 06:03] LABS: Partial Thromboplastin Time 66.7 Seconds (22.3-36.8)
[2025-10-03 06:17] LABS: Alanine Aminotransferase 27 U/L (6-50); Albumin Level 3.7 g/dL (3.5-5.1); Alkaline Phosphatase 149 U/L (38-126); Anion Gap 24 mmol/L (4-12); Aspartate Amino Transferase 49 U/L (17-59); Bilirubin,Total 2.3 mg/dL (0.2-1.3); Blood Urea Nitrogen 118 mg/dL (9-20); Calcium 7.2 mg/dL (8.4-10.2); Carbon Dioxide 18 mmol/L (22-30); Chloride 96 mmol/L (98-107); Glucose 141 mg/dL (65-110); Magnesium 2.2 mg/dL (1.6-2.3); Potassium 3.1 mmol/L (3.4-5.0); Sodium 138 mmol/L (137-145); Total Protein 6.9 g/dL (6.3-8.2)
[2025-10-03 06:24] LABS: Anisocytosis 1+; Band Neutrophils Percent 4 % (0-6); Eosinophils Absolute Manual 0.31 K/mm3 (0.02-0.50); Eosinophils Percent Manual 3 % (0-4); Hypochromasia 1+; Lymphocytes Absolute Manual 0.53 K/mm3 (1.1-4.5); Lymphocytes Percent Manual 5 % (18-44); Monocytes Absolute Manual 0.42 K/mm3 (0.1-0.90); Monocytes Percent Manual 4 % (3-9); Neutrophils Absolute Manual 9.32 K/mm3 (1.3-6.7); Neutrophils Percent Manual 84 % (46-73); Total Cells Counted 100
[2025-10-03 06:25] LABS: Burr Cells 2+; Schistocytes None Seen
[2025-10-03 06:29] LABS: Estimated CRCL calculation 10 ml/min; Estimated Glomerular Filt Rate 7
[2025-10-03 06:51] LABS: CRP 36.0 mg/dL (<1.0)
--- NOTE | 2025-10-03 07:44 | P.PNINT_ITS ---
Progress Note: A&P Assessment and Plan (1) Sepsis: Qualifiers: Sepsis acute organ dysfunction status: unspecified Sepsis type: sepsis due to unspecified organism Qualified Code(s): A41.9 - Sepsis, unspecified o rganism Code(s): A41.9 - Sepsis, unspecified organism Status: Inactive Assessment and Plan: 10/01: Patient presented the ED with complains of generalized weakness, diarrhea, unable to get up from his bed since 09/27/2025. Patient also missed his dialysis on 09/28 and on 10/01. -in the ED blood pressures were in the 90 systolic -patient was transferred to the medical floor, was hypotensive with systolic blood pressures in 80s, transfer the ICU -patient evaluated, found to be hypotensive and hypovolemic likely related to diarrhea, diuretics, blood pressure medications, examination also revealed dry mucous membranes, abnormal skin turgor -chest x-ray was clear, patient was given 1 L IV fluid bolus with improvement in blood pressures -lactic acid 3.9, will trend -will start maintenance IV fluids at 75 mL/hour for a total of 500 mL -will also infuse albumin 25% q.6 hours x4 doses -patient seems to be intravascularly dry, I discussed this with the drying tumbler operator who also agrees -10/01: Blood cultures growing gram-positive cocci 2/2 bottles, await identification and sensitivities -10/01: Urine cultures with no growth -10/01: MRSA screen is positive -continue Zosyn and vancomycin (10/01), will deescalate once cultures resulted -10/03: Will obtain echocardiogram to rule out any vegetations (2) Diarrhea: Qualifiers: Diarrhea type: unspecified type Qualified Code(s): R19.7 - Diarrhea, unspecified Code(s): R19.7 - Diarrhea, unspecified Status: Resolved Assessment and Plan: Patient with diarrhea, according the he has not been on any antibiotics rec ently -diarrhea has resolved 10/02: Stool for C diff is negative 10/01/2025: CT chest, abdomen, pelvis 1. Directed noncontrast exam demonstrates cardiomegaly with patchy areas of groundglass opacification which may represent vascular congestion and early decompensation. Enlarged pulmonary arteries may represent pulmonary arterial hypertension. Atypical inflammatory or infectious process could have a similar appearance. 2. Several lung nodules concerning for metastatic malignant process. Hematogenous infectious process could potentially have a similar appearance. 3. Mildly distended gallbladder but no biliary ductal dilatation seen. Correlate with right upper quadrant ultrasound for optimal evaluation. 4. Possible mild urinary bladder wall thickening. Correlate with urinalysis. 5. 4.4 cm ascending thoracic aortic aneurysm (3) Diabetes mellitus type 2 in obese: Code(s): E11.69 - Type 2 diabetes mellitus with other specified complication; E66.9 - Obesity, unspecified Status: Chronic Assessment and Plan: History of type 2 diabetes, patient is on Lantus 25 units q.12 hours at home along with Humalog 10 units subQ t.i.d. with meals -patient currently NPO, hold Lantus for now -continue Accu-Cheks and sliding scale insulin (4) End-stage renal disease on hemodialysis: Code(s): N18.6 - End stage renal disease; Z99.2 - Dependence on renal dialysis Status: Acute Assessment and Plan: History of end-stage renal disease on dialysis ([facility], [facility]) has missed d ialysis on 09/28/2025 and 10/01/2025 -on admission seemed to be volume depleted, received IV fluid bolus and albumin for intravascular volume expansion, Nephrology was agreeable to IV fluids and volume expansion since chest x-ray was clear patient was on room air -fluids were given cautiously due to history of end-stage renal disease on dialysis -nephrology was consulted from the ED, -dialysis per drying tumbler operator (5) Wound of foot: Code(s): S91.309A - Unspecified open wound, unspecified foot, initial encounter Status: Acute Assessment and Plan: Right 4th toe necrotic appearing -Eschar/necrotic tissue on the right heel -patient also has deep tissue injury on the buttocks -appreciate wound care evaluation and recommendations (6) Atrial fibrillation/flutter: Status: Acute Assessment and Plan: A history of AFib, on apixaban at home -patient is had some coughing with drinking fluids according the -will obtain speech evaluation if he passes will restart apixaban -continue heparin infusion, holding apixaban as patient NPO (7) HTN (hypertension): Qualifiers: Hypertension type: primary hypertension Qualified Code(s): I10 - Essential (primary) hypertension Code(s): I10 - Essential (primary) hypertension Status: Chronic Assessment and Plan: currently hypotensive will hold all antihypertensive (8) Hypothyroidism: Code(s): E03.9 - Hypothyroidism, unspecified Status: Inactive Assessment and Plan: Since patient is NPO, switched levothyroxine to 50% of the dose IV (9) Generalized weakness: Code(s): R53.1 - Weakness Status: Acute Assessment and Plan: Most likely related to hypotension, diarrhea, hypovolemia -will require PT/OT once he is more stable -10/01: CT scan of the brain with no acute hemorrhage or large acute ischemic event. Possible old right subdural hygroma. Chronic appearing right-sided basal ganglia infarction Plan DVT prophylaxis: Heparin infusion Stress ulcer prophylaxis: Protonix Nutrition: NPO, speech therapy to evaluate for bedside swallow Code Status: Full code Critical Care Time Spent: 32 minutes Discussed with patient's spouse, Landy, at bedside and updated with patient's condition and plan of care. I answered all her questions Due to a high probability of clinically significant, life threatening deterioration, the patient required my highest level of preparedness to intervene emergently and I personally spent this critical care time directly and personally managing the patient. This critical care time included obtaining a history; examining the patient; pulse oximetry; ordering and review of studies; arranging urgent treatment with development of a management plan; evaluation of patient's response to treatment; frequent reassessment; and discussions with other providers. It was exclusive of separately billable procedures and treating other patients and teaching time. Please see Assessment and Plan section and the rest of the note for further information on patient assessment and treatment This dictation may have been done utilizing a voice recognition system. Attempts have been made to correct errors. However, there may be uncorrected grammatical, spelling, and recognitions errors present. Subjective Date/time seen: 10/03/25 07:44 Interval history: Reason for consult: Hypotension, diarrhea, fever cough, abdominal pain, missed 2 sessions of dialysis 09/27 and 10/01 In 25: Patient seen and examined the ICU, more awake this morning, answers to questions appropriately, he knows he is in a hospital, knows the year, he did not know who the president was but he was able to tell me his date of . Denies any chest pain, shortness on breath, cough, abdominal pain, nausea or vomiting. Patient did have 2 liquid bowel so overnight. Since patient is in end-stage renal disease on dialysis, minimal urine output. Hemodynamically stable, on room air with adequate O2 sats, febrile with a T-max of 101? overnight Review of Systems Review of Systems: All systems reviewed & are unremarkable except as noted in HPI and below Exam Narrative: General: Ill-appearing gentleman HEENT:? Pupils equal and reactive nares clear ischemia, moist oral mucosa Neck:? Supple Respiratory:? Clear to auscultation bilaterally, decreased at bases adequate air entry, no wheezing Cardiac:? S1-S2 normal, regular rate and rhythm, pacer spikes noted intermittently Abdomen:? Soft, nontender, nondistended, normoactive bowel sounds Extremities:? Right 4th toe looks necrotic, right foot has only 2 toes rest of the toe was amputated. Trace edema bilateral lower extremity, palpable pedal pulses Neuro:? Patient is weak, feeble voice, awake, oriented x3, answers to questions appropriately and follows simple commands in all extremities Skin:? Dry, poor skin turgor Psych:? Depressed affect, normal mentation Objective Data Vital Signs Vital Signs: Vital Signs - 24 hr 10/02/25 08:00 10/02/25 08:00 10/02/25 08:00 Temperature 98.8 F Pulse Rate 66 66 66 Respiratory Rate 16 16 Blood Pressure 99/58 L Pulse Oximetry 98 98 Oxygen Delivery Nasal Cannula Oxygen Flow Rate 2 10/02/25 09:00 10/02/25 10:00 10/02/25 10:00 Temperature 97.7 F 98.9 F Pulse Rate 64 64 64 Respiratory Rate 18 22 H Blood Pressure 94/55 L 102/58 L Pulse Oximetry 94 100 Oxygen Delivery Oxygen Flow Rate 10/02/25 10:05 10/02/25 11:00 10/02/25 12:00 Temperature 98.9 F Pulse Rate 65 65 Respiratory Rate 22 H 21 H Blood Pressure 89/54 L Pulse Oximetry 100 100 100 Oxygen Delivery Nasal Cannula Nasal Cannula Oxygen Flow Rate 2 2 10/02/25 12:00 10/02/25 12:00 10/02/25 13:00 Temperature 99.4 F 99.4 F Pulse Rate 65 65 63 Respiratory Rate 21 H 22 H Blood Pressure 107/60 99/55 L Pulse Oximetry 100 100 Oxygen Delivery Oxygen Flow Rate 10/02/25 14:00 10/02/25 14:00 10/02/25 15:00 Temperature 99.7 F H Pulse Rate 63 63 64 Respiratory Rate 22 H 18 Blood Pressure 90/48 L 90/48 L Pulse Oximetry 97 97 Oxygen Delivery Oxygen Flow Rate 10/02/25 16:00 10/02/25 16:00 10/02/25 16:00 Temperature 99.9 F H Pulse Rate 64 64 64 Respiratory Rate 18 18 Blood Pressure 96/54 L Pulse Oximetry 97 97 Oxygen Delivery Room Air Oxygen Flow Rate 10/02/25 17:00 10/02/25 18:00 10/02/25 18:00 Temperature 99.9 F H 99.7 F H Pulse Rate 98 95 95 Respiratory Rate 17 18 Blood Pressure 113/90 97/52 L Pulse Oximetry 98 98 Oxygen Delivery Oxygen Flow Rate 10/02/25 19:00 10/02/25 19:57 10/02/25 20:00 Temperature 100.1 F H Pulse Rate 64 99 Respiratory Rate 17 20 Blood Pressure 100/53 L 95/59 L Pulse Oximetry 100 96 97 Oxygen Delivery Room Air Oxygen Flow Rate 10/02/25 20:00 10/02/25 21:00 10/02/25 21:53 Temperature Pulse Rate 99 64 96 Respiratory Rate 20 Blood Pressure 112/55 L Pulse Oximetry 99 Oxygen Delivery Oxygen Flow Rate 10/02/25 22:00 10/02/25 23:00 10/02/25 23:32 Temperature 100.8 F H Pulse Rate 64 68 Respiratory Rate 16 20 Blood Pressure 103/70 102/54 L Pulse Oximetry 99 96 98 Oxygen Delivery Room Air Oxygen Flow Rate 10/03/25 00:00 10/03/25 00:00 10/03/25 00:04 Temperature 101 F H 101.0 F H Pulse Rate 62 62 Respiratory Rate 18 Blood Pressure 98/53 L Pulse Oximetry 98 Oxygen Delivery Oxygen Flow Rate 10/03/25 01:00 10/03/25 01:04 10/03/25 02:00 Temperature 100.5 F H Pulse Rate 62 62 Respiratory Rate 18 Blood Pressure 95/52 L Pulse Oximetry 98 Oxygen Delivery Oxygen Flow Rate 10/03/25 02:00 10/03/25 03:00 10/03/25 04:00 Temperature 99.8 F H Pulse Rate 62 62 Respiratory Rate 24 H 24 H Blood Pressure 85/70 L 99/53 L Pulse Oximetry 97 97 97 Oxygen Delivery Room Air Oxygen Flow Rate 10/03/25 04:00 10/03/25 04:00 10/03/25 05:00 Temperature 98.5 F 98.4 F Pulse Rate 62 62 62 Respiratory Rate 12 11 L Blood Pressure 99/54 L 103/56 L Pulse Oximetry 98 98 Oxygen Delivery Oxygen Flow Rate 10/03/25 05:44 10/03/25 05:45 Temperature 98.4 F Pulse Rate 62 62 Respiratory Rate 12 Blood Pressure 105/60 Pulse Oximetry 98 Oxygen Delivery Oxygen Flow Rate Intake/Output Intake/Output: Intake & Output 09/30/25 10/01/25 10/02/25 10/03/25 23:59 23:59 23:59 23:59 Intake Total 902 742.9 152.8 Output Total 300 100 50 Balance 602 642.9 102.8 Meds/Results Medications: Active Medications Generic Name Dose Route Start Last Admin Trade Name Freq PRN Reason Stop Dose Admin Acetaminophen 650 mg 10/01/25 13:23 10/03/25 00:04 Acetaminophen 650 Mg Suppository RECTAL 650 mg Q6H PRN Administration Mild Pain (1-3) or Fever Dextrose 12.5 gm 10/01/25 13:04 Dextrose 50% 25 Gm/50 Ml Syringe IV PUSH PRN PRN Hypoglycemia Protocol Glucagon 1 mg 10/01/25 13:04 Glucagon For Inj 1 Mg Vial IM PRN PRN Hypoglycemia Protocol Glucose 15 gm 10/01/25 13:04 Glucose Oral Gel 15 Gm Of Glucse In 37.5 Gm Tube PO PRN PRN Hypoglycemia Protocol Heparin Sodium (Porcine) 7,500 units 10/01/25 14:23 Heparin Sodium 5,000 Units/Ml Vial IV PUSH PRN PRN aPTT less than 55 seconds Heparin Sodium (Porcine) 3,500 units 10/01/25 14:23 10/03/25 06:34 Heparin Sodium 5,000 Units/Ml Vial IV PUSH 3,500 units PRN PRN Administration aPTT 55 - 70 seconds Dextrose 1,000 mls @ 100 mls/hr 10/01/25 13:04 Dextrose 5% 1,000 Ml IVPB PRN PRN Hypoglycemia Protocol Piperacillin Sod/Tazobactam 50 mls @ 100 mls/hr 10/01/25 15:00 10/03/25 05:45 Sod 2.25 gm/ Sodium Chloride IVPB Infused Q8HR [facility] Infusion Heparin Sodium/Dextrose 25,000 units in 250 mls @ 0 mls/hr 10/01/25 14:25 10/03/25 07:29 Heparin Sodium/D5w 100 Units/Ml IV CONT 0 units/hr .Q0M TORY 0 mls/hr Protocol Titration 0 UNITS/HR Vancomycin HCl 1,000 mg/ 250 mls @ 250 mls/hr 10/03/25 18:00 Sodium Chloride IVPB 10/03/25 18:59 ONCE ONE Insulin Aspart 3 - 6 units 10/01/25 18:00 10/03/25 06:26 Insulin Aspart (*Bkc) 100 Units/Ml SUB-Q Not Given Q6HR [facility] Protocol Levothyroxine Sodium 25 mcg 10/02/25 06:30 10/03/25 04:52 Levothyroxine Sodium Inj 100 Mcg/5 Ml Vial IV PUSH 25 mcg DAILY@0630 TORY Administration Pantoprazole Sodium 40 mg 10/02/25 09:00 10/02/25 08:18 Pantoprazole Sodium Iv 40 Mg Vial IV PUSH 40 mg QAM TORY Administration Perflutren Lipid Microsphere 0 ml 10/03/25 07:03 Perflutren Lipid Microspheres 1.5 Ml Vial Diluted To 10 Ml Total Volume IV PUSH 10/06/25 07:03 ONCE PRN adequate visualization Protocol Vancomycin HCl 1 each 10/01/25 15:02 Vancomycin For Hemodialysis IVPB PRN PRN Vancomycin Protocol Radiology Results: ITS Impressions Head CT 10/01/25 13:35 IMPRESSION: 1. No acute hemorrhage or large acute ischemic event. 2. Possible old right subdural hygroma. 3. Chronic appearing right-sided basal ganglia infarction. Chest/Abdomen/Pelvis CT 10/01/25 13:38 IMPRESSION: 1. Directed noncontrast exam demonstrates cardiomegaly with patchy areas of groundglass opacification which may represent vascular congestion and early decompensation. Enlarged pulmonary arteries may represent pulmonary arterial hypertension. Atypical inflammatory or infectious process could have a similar appearance. 2. Several lung nodules concerning for metastatic malignant process. Hematogenous infectious process could potentially have a similar appearance. 3. Mildly distended gallbladder but no biliary ductal dilatation seen. Correlate with right upper quadrant ultrasound for optimal evaluation. 4. Possible mild urinary bladder wall thickening. Correlate with urinalysis. 5. 4.4 cm ascending thoracic aortic aneurysm Chest X-Ray 10/02/25 08:00 IMPRESSION: 1. Possible small area of consolidation or atelectasis left lung base. Labs Labs: Laboratory Results - last 24 hr 10/02/25 10/02/25 10/02/25 09:56 12:05 13:43 WBC RBC Hgb Hct MCV MCH MCHC RDW Plt Count MPV Immature Gran % (Auto) Neut % (Auto) Lymph % (Auto) [place] % (Auto) Eos % (Auto) Baso % (Auto) Lymph # (Auto) [place] # (Auto) Eos # (Auto) Baso # (Auto) Abs Immat Gran (auto) Absolute Neuts (auto) Absolute Nucleated RBC Total Counted Neutrophils % (Manual) Band Neutrophils % Lymphocytes % (Manual) Monocytes % (Manual) Eosinophils % (Manual) Nucleated RBC % Abs Neuts (Manual) Abs Lymphs (Manual) Abs Monocytes (Manual) Absolute Eos (Manual) Platelet Estimate % Immature Plt Fraction Hypochromasia Anisocytosis Ynes Cells Schistocytes APTT 92.2 H Sodium Potassium Chloride Carbon Dioxide Anion Gap BUN Creatinine Estim Creat Clear Calc Estimated GFR Glucose POC Capillary Glucose 138 H Lactic Acid Calcium Phosphorus Magnesium Total Bilirubin AST ALT Alkaline Phosphatase C-Reactive Protein Total Protein Albumin Random Vancomycin C. difficile (PCR) Negative 10/02/25 10/02/25 10/03/25 19:27 23:57 05:31 WBC 10.6 H RBC 3.08 L Hgb 8.3 L Hct 26.6 L MCV 86.4 MCH 26.9 MCHC 31.2 L RDW 18.4 H Plt Count 71 L MPV 11.8 H Immature Gran % (Auto) 9.8 H Neut % (Auto) 76.4 H Lymph % (Auto) 7.9 L [place] % (Auto) 4.5 Eos % (Auto) 1.2 Baso % (Auto) 0.2 Lymph # (Auto) 0.83 L [place] # (Auto) 0.5 Eos # (Auto) 0.1 Baso # (Auto) 0.0 Abs Immat Gran (auto) 1.04 H Absolute Neuts (auto) 8.1 H Absolute Nucleated RBC 0.060 H Total Counted 100 Neutrophils % (Manual) 84 H Band Neutrophils % 4 Lymphocytes % (Manual) 5 L Monocytes % (Manual) 4 Eosinophils % (Manual) 3 Nucleated RBC % 0.6 H Abs Neuts (Manual) 9.32 H Abs Lymphs (Manual) 0.53 L Abs Monocytes (Manual) 0.42 Absolute Eos (Manual) 0.31 Platelet Estimate Decreased % Immature Plt Fraction 7.6 Hypochromasia 1+ Anisocytosis 1+ [place] Cells 2+ Schistocytes None seen APTT 71.3 H 66.7 H Sodium 138 Potassium 3.1 L Chloride 96 L Carbon Dioxide 18 L Anion Gap 24 H BUN 118 H* Creatinine 8.17 H Estim Creat Clear Calc 10 Estimated GFR 7 L Glucose 141 H POC Capillary Glucose 127 H Lactic Acid 1.1 Calcium 7.2 L Phosphorus 4.3 Magnesium 2.2 Total Bilirubin 2.3 H AST 49 ALT 27 Alkaline Phosphatase 149 H C-Reactive Protein 36.0 H Total Protein 6.9 Albumin 3.7 Random Vancomycin 18.6 C. difficile (PCR) Quality VTE Prophylaxis VTE prophylaxis: pharmacologic ordered
[2025-10-03] MEDS: PANTOPRAZOLE SODIUM IV 40 MG VIAL IV PUSH (08:26)
[2025-10-03] MEDS: PERFLUTREN LIPID MICROSPHERES 1.5 ML VIAL DILUTED TO 10 ML TOTAL VOLUME IV PUSH (09:47)
--- NOTE | 2025-10-03 09:47 | IVDEFINITY ---
Prior to administration of IV Definity the patient was educated on the risks and benefits of the imaging enhancing agent including potential adverse side effects. The patient verbalized understanding. Allergies were verified. No exclusion criteria were identified and at least one of the following inclusion criteria were met: 1) physician request, 2) patient technically difficult to image (per the [place] [employer] guidelines of two or more segments not discernable within the apical view), or 3) questionable left ventricular function. ?
--- NOTE | 2025-10-03 11:19 | P.PCNBED_ITS ---
Procedures Central Line Placement Right Femoral: Central Line Date: 10/03/25 Central Line Time: 10:45 Discussed w/ the patient/family/POA,the placement of a central venous catheter, including its clinical necessity/indication & associated potential risks, benifits and alternatives.: Yes The patient/family/POA understand(s) and acknowledge(s) the need to proceed with central venous catheter insertion as an important element of the patient's clinical management.: Yes Consent: I have discussed with the patient and/or surrogate, the non-emergent placement of a central venous catheter, including its clinical necessity/indication and associated potential risks and complications. The patient and/or surrogate understand(s) and acknowledge(s) the need to proceed with central venous catheter insertion as an important element of the patient's clinical management. Time Out Performed: Yes Patient Position: supine Patient placed on monitor/pulse ox: Yes Provider Prep: mask, sterile gown, sterile gloves, Max. sterile barrier precautions, cap and hand hygiene with conventional soap/water or alcohol based hand rub Central line prep: 2% Chlorhexidine scrub Local anesthesia used: lidocaine 1% Amount of anesthesia used (ml): 3 Sterile US Technique with sterile gel/sterile probe covers: Yes Central line lumen inserted: triple [place]: 7 Length (cm): 20 Depth of Insertion (cm): 20 Post Procedure: sutured in place, good blood return, all ports aspirated, flushed, capped, transparent dressing, hemostatic product, antimicrobial product, securement product and aseptic technique maintained throughout procedure Patient tolerated procedure: well Complications: none
--- NOTE | 2025-10-03 12:02 | P.PNIM_ITS ---
Progress Note: A&P Assessment and Plan (1) End-stage renal disease on hemodialysis: Code(s): N18.6 - End stage renal disease; Z99.2 - Dependence on renal dialysis Status: Acute (2) Generalized weakness: Code(s): R53.1 - Weakness Status: Acute Plan Diarrhea Hypovolemia Atypical pneumonia GPC in blood cultures Acute metabolic encephalopathy -imaging there are bilateral ground-glass opacities -patient presented generalized weakness, diarrhea, poor p.o. intake -right femoral triple-lumen catheter placed for possible vasopressors -monitoring in ICU -antibiotics: IV vancomycin/Zosyn -chest x-ray neg, head CT possible right subdural hygroma -chronic diabetic ulcers on foot, continue local wound care -will follow C&S of blood cultures -acute metabolic encephalopathy -keep NPO until LAB RN eval ESRD on HD -has a tunneled right IJ HD catheter -renal failure has progressed ESRD -plan for dialysis today -still responding to Bumex and metolazone? Incidental finding -nodule suggesting metastatic malignant process -will need outpatient monitoring of lung nodules Chronic conditions- NPO until LAB RN eval -atrial fibrillation: Amiodarone, rate control metoprolol, anticoagulation Eliquis -type 2 diabetes: Sliding scale insulin, Accu-Cheks q.6 hours, hypoglycemia protocol. At home on glargine 25 units twice daily -hypothyroidism: Levothyroxine -BPH: flomax -chronic right foot wound: continue local wound care -anemia of CKD: Given EPO by application security specialist -hyperlipidemia: Aspirin/plavix, statin. Will have to evaluate if patient should be on triple therapy -supplements: B complex -GERD: Pepcid -muscle spasms: cyclobenzaprine Diet: NPO DVT prophylaxis: Heparin drip GI prophylaxis: IV Protonix Code status: Full code Disposition: ICU, home >2 days Time Spent With Patient Time: 35 minutes Subjective Date/time seen: 10/03/25 12:02 Interval history: Patient seen examined. He is having left femoral triple-lumen catheter placed for possible vasopressors. Patient becoming hypotensive. He will have dialysis later today. Family updated bedside. He is NPO for LAB RN eval. We are on broad spectrum antibiotics. Suspected bacteremia from GPC. His mentation is fair, appears to be improving. D/w nurse bedside. Review of Systems Review of Systems: 10 point ROS complete, negative other th an what is specified in HPI. Exam Narrative: - GENERAL: Pleasant male in no acute di stress - EYES: EOMI. Anicteric. - HENT: Moist mucous membranes. - LUNGS: Clear to auscultation bilateral ly, no wheezing or rhonchi - CARDIOVASCULAR: Regular rate and rhyth m. tunneled right HD cath - ABDOMEN: Soft, non-tender and non-dist ended. - EXTREMITIES: no edema. Peripheral puls es 2+. RLE femoral TLC - NEUROLOGIC: No focal neurological defi cits. CN II-XII grossly intact. - PSYCHIATRIC: Awake, Alert and oriented x 3. Appropriate mood and affect. - SKIN: No rashes or lesions. Warm. Objective Data Vital Signs Vital Signs: Vital Signs - 24 hr 10/02/25 13:00 10/02/25 14:00 10/02/25 14:00 Temperature 37.4 C 37.6 C H Pulse Rate 63 63 63 Respiratory Rate 22 H 22 H Blood Pressure 99/55 L 90/48 L Pulse Oximetry 100 97 Oxygen Delivery 10/02/25 15:00 10/02/25 16:00 10/02/25 16:00 Temperature Pulse Rate 64 64 64 Respiratory Rate 18 18 Blood Pressure 90/48 L Pulse Oximetry 97 97 Oxygen Delivery Room Air 10/02/25 16:00 10/02/25 17:00 10/02/25 18:00 Temperature 37.7 C H 37.7 C H Pulse Rate 64 98 95 Respiratory Rate 18 17 Blood Pressure 96/54 L 113/90 Pulse Oximetry 97 98 Oxygen Delivery 10/02/25 18:00 10/02/25 19:00 10/02/25 19:57 Temperature 37.6 C H Pulse Rate 95 64 Respiratory Rate 18 17 Blood Pressure 97/52 L 100/53 L Pulse Oximetry 98 100 96 Oxygen Delivery Room Air 10/02/25 20:00 10/02/25 20:00 10/02/25 21:00 Temperature 37.8 C H Pulse Rate 99 99 64 Respiratory Rate 20 20 Blood Pressure 95/59 L 112/55 L Pulse Oximetry 97 99 Oxygen Delivery 10/02/25 21:53 10/02/25 22:00 10/02/25 23:00 Temperature 38.2 C H Pulse Rate 96 64 68 Respiratory Rate 16 20 Blood Pressure 103/70 102/54 L Pulse Oximetry 99 96 Oxygen Delivery 10/02/25 23:32 10/03/25 00:00 10/03/25 00:00 Temperature 38.3 C H Pulse Rate 62 62 Respiratory Rate 18 Blood Pressure 98/53 L Pulse Oximetry 98 98 Oxygen Delivery Room Air 10/03/25 00:04 10/03/25 01:00 10/03/25 01:04 Temperature 38.3 C H 38.1 C H Pulse Rate 62 Respiratory Rate 18 Blood Pressure 95/52 L Pulse Oximetry 98 Oxygen Delivery 10/03/25 02:00 10/03/25 02:00 10/03/25 03:00 Temperature 37.7 C H Pulse Rate 62 62 62 Respiratory Rate 24 H 24 H Blood Pressure 85/70 L 99/53 L Pulse Oximetry 97 97 Oxygen Delivery 10/03/25 04:00 10/03/25 04:00 10/03/25 04:00 Temperature 36.9 C Pulse Rate 62 62 Respiratory Rate 12 Blood Pressure 99/54 L Pulse Oximetry 97 98 Oxygen Delivery Room Air 10/03/25 05:00 10/03/25 05:44 10/03/25 05:45 Temperature 36.9 C 36.9 C Pulse Rate 62 62 62 Respiratory Rate 11 L 12 Blood Pressure 103/56 L 105/60 Pulse Oximetry 98 98 Oxygen Delivery 10/03/25 07:00 10/03/25 08:00 10/03/25 08:00 Temperature 36.7 C 36.7 C Pulse Rate 60 62 Respiratory Rate 17 22 H Blood Pressure 100/55 L 109/60 Pulse Oximetry 99 99 100 Oxygen Delivery Room Air 10/03/25 08:00 10/03/25 09:00 10/03/25 10:00 Temperature 36.9 C 37.0 C Pulse Rate 62 61 62 Respiratory Rate 23 H 24 H Blood Pressure 102/56 L 108/58 L Pulse Oximetry 99 99 Oxygen Delivery 10/03/25 10:00 10/03/25 11:00 Temperature 36.9 C Pulse Rate 61 62 Respiratory Rate 24 H Blood Pressure 109/56 L Pulse Oximetry 99 Oxygen Delivery Intake/Output Intake/Output: Intake & Output 09/30/25 10/01/25 10/02/25 10/03/25 23:59 23:59 23:59 23:59 Intake Total 902 742.9 152.8 Output Total 300 100 50 Balance 602 642.9 102.8 Meds/Results Medications: Active Medications Generic Name Dose Route Start Last Admin Trade Name Freq PRN Reason Stop Dose Admin Acetaminophen 650 mg 10/01/25 13:23 10/03/25 00:04 Acetaminophen 650 Mg Suppository RECTAL 650 mg Q6H PRN Administration Mild Pain (1-3) or Fever Dextrose 12.5 gm 10/01/25 13:04 Dextrose 50% 25 Gm/50 Ml Syringe IV PUSH PRN PRN Hypoglycemia Protocol Epoetin Laron-epbx 10,000 units 10/03/25 18:00 Epoetin [place]-Epbx 10,000 Units/Ml Vial IV PUSH 10/03/25 18:01 ONCE ONE Glucagon 1 mg 10/01/25 13:04 Glucagon For Inj 1 Mg Vial IM PRN PRN Hypoglycemia Protocol Glucose 15 gm 10/01/25 13:04 Glucose Oral Gel 15 Gm Of Glucse In 37.5 Gm Tube PO PRN PRN Hypoglycemia Protocol Heparin Sodium (Porcine) 7,500 units 10/01/25 14:23 Heparin Sodium 5,000 Units/Ml Vial IV PUSH PRN PRN aPTT less than 55 seconds Heparin Sodium (Porcine) 3,500 units 10/01/25 14:23 10/03/25 06:34 Heparin Sodium 5,000 Units/Ml Vial IV PUSH 3,500 units PRN PRN Administration aPTT 55 - 70 seconds Dextrose 1,000 mls @ 100 mls/hr 10/01/25 13:04 Dextrose 5% 1,000 Ml IVPB PRN PRN Hypoglycemia Protocol Piperacillin Sod/Tazobactam 50 mls @ 100 mls/hr 10/01/25 15:00 10/03/25 05:45 Sod 2.25 gm/ Sodium Chloride IVPB Infused Q8HR [facility] Infusion Heparin Sodium/Dextrose 25,000 units in 250 mls @ 0 mls/hr 10/01/25 14:25 10/03/25 07:29 Heparin Sodium/D5w 100 Units/Ml IV CONT 0 units/hr .Q0M [facility] 0 mls/hr Protocol Titration 0 UNITS/HR Vancomycin HCl 1,000 mg/ 250 mls @ 250 mls/hr 10/03/25 18:00 Sodium Chloride IVPB 10/03/25 18:59 ONCE ONE Albumin Human 50 mls @ 999 mls/hr 10/03/25 08:47 Albutein IVPB 11/02/25 08:46 Q10M PRN HYPOTENSION Insulin Aspart 3 - 6 units 10/01/25 18:00 10/03/25 06:26 Insulin Aspart (*Bkc) 100 Units/Ml SUB-Q Not Given Q6HR [facility] Protocol Levothyroxine Sodium 25 mcg 10/02/25 06:30 10/03/25 04:52 Levothyroxine Sodium Inj 100 Mcg/5 Ml Vial IV PUSH 25 mcg DAILY@0630 [facility] Administration Pantoprazole Sodium 40 mg 10/02/25 09:00 10/03/25 08:26 Pantoprazole Sodium Iv 40 Mg Vial IV PUSH 40 mg QAM [facility] Administration Sodium Chloride 10 ml 10/03/25 14:00 Central Line Flush IV PUSH Q8HR [facility] Sodium Chloride 20 ml 10/03/25 11:21 Central Line Flush IV PUSH PRN PRN after blood draws Vancomycin HCl 1 each 10/01/25 15:02 Vancomycin For Hemodialysis IVPB PRN PRN Vancomycin Protocol Radiology Results: ITS Impressions Head CT 10/01/25 13:35 IMPRESSION: 1. No acute hemorrhage or large acute ischemic event. 2. Possible old right subdural hygroma. 3. Chronic appearing right-sided basal ganglia infarction. Chest/Abdomen/Pelvis CT 10/01/25 13:38 IMPRESSION: 1. Directed noncontrast exam demonstrates cardiomegaly with patchy areas of groundglass opacification which may represent vascular congestion and early decompensation. Enlarged pulmonary arteries may represent pulmonary arterial hypertension. Atypical inflammatory or infectious process could have a similar appearance. 2. Several lung nodules concerning for metastatic malignant process. Hematogenous infectious process could potentially have a similar appearance. 3. Mildly distended gallbladder but no biliary ductal dilatation seen. Correlate with right upper quadrant ultrasound for optimal evaluation. 4. Possible mild urinary bladder wall thickening. Correlate with urinalysis. 5. 4.4 cm ascending thoracic aortic aneurysm Chest X-Ray 10/02/25 08:00 IMPRESSION: 1. Possible small area of consolidation or atelectasis left lung base. Labs Labs: Laboratory Results - last 24 hr 10/02/25 10/02/25 10/02/25 12:05 13:43 19:27 WBC RBC Hgb Hct MCV MCH MCHC RDW Plt Count MPV Immature Gran % (Auto) Neut % (Auto) Lymph % (Auto) [place] % (Auto) Eos % (Auto) Baso % (Auto) Lymph # (Auto) [place] # (Auto) Eos # (Auto) Baso # (Auto) Abs Immat Gran (auto) Absolute Neuts (auto) Absolute Nucleated RBC Total Counted Neutrophils % (Manual) Band Neutrophils % Lymphocytes % (Manual) Monocytes % (Manual) Eosinophils % (Manual) Nucleated RBC % Abs Neuts (Manual) Abs Lymphs (Manual) Abs Monocytes (Manual) Absolute Eos (Manual) Platelet Estimate % Immature Plt Fraction Hypochromasia Anisocytosis [place] Cells Schistocytes APTT 92.2 H 71.3 H Sodium Potassium Chloride Carbon Dioxide Anion Gap BUN Creatinine Estim Creat Clear Calc Estimated GFR Glucose POC Capillary Glucose 138 H Lactic Acid Calcium Phosphorus Magnesium Total Bilirubin AST ALT Alkaline Phosphatase C-Reactive Protein Total Protein Albumin Random Vancomycin 10/02/25 10/03/25 23:57 05:31 WBC 10.6 H RBC 3.08 L Hgb 8.3 L Hct 26.6 L MCV 86.4 MCH 26.9 MCHC 31.2 L RDW 18.4 H Plt Count 71 L MPV 11.8 H Immature Gran % (Auto) 9.8 H Neut % (Auto) 76.4 H Lymph % (Auto) 7.9 L [place] % (Auto) 4.5 Eos % (Auto) 1.2 Baso % (Auto) 0.2 Lymph # (Auto) 0.83 L [place] # (Auto) 0.5 Eos # (Auto) 0.1 Baso # (Auto) 0.0 Abs Immat Gran (auto) 1.04 H Absolute Neuts (auto) 8.1 H Absolute Nucleated RBC 0.060 H Total Counted 100 Neutrophils % (Manual) 84 H Band Neutrophils % 4 Lymphocytes % (Manual) 5 L Monocytes % (Manual) 4 Eosinophils % (Manual) 3 Nucleated RBC % 0.6 H Abs Neuts (Manual) 9.32 H Abs Lymphs (Manual) 0.53 L Abs Monocytes (Manual) 0.42 Absolute Eos (Manual) 0.31 Platelet Estimate Decreased % Immature Plt Fraction 7.6 Hypochromasia 1+ Anisocytosis 1+ [place] Cells 2+ Schistocytes None seen APTT 66.7 H Sodium 138 Potassium 3.1 L Chloride 96 L Carbon Dioxide 18 L Anion Gap 24 H BUN 118 H* Creatinine 8.17 H Estim Creat Clear Calc 10 Estimated GFR 7 L Glucose 141 H POC Capillary Glucose 127 H Lactic Acid 1.1 Calcium 7.2 L Phosphorus 4.3 Magnesium 2.2 Total Bilirubin 2.3 H AST 49 ALT 27 Alkaline Phosphatase 149 H C-Reactive Protein 36.0 H Total Protein 6.9 Albumin 3.7 Random Vancomycin 18.6
[2025-10-03] MEDS: CENTRAL LINE FLUSH 10 ML IV PUSH ×2 (13:17→20:11)
--- NOTE | 2025-10-03 13:29 | P.CDI_ITS ---
CDI Query Clarification Request BMI: 33.6 Nutritional Diagnostic Statement: Please refer to the comprehensive nutrition assessment for further information. If you agree with diagnosis of Severe Protein Calorie Malnutrition as related to inadequate protein energy intake with increased protein energy needs in setting of chronic disease as evidenced by minimal oral intake for > 1-2 months; significant weight loss of 18 ibs in 1 month; moderate subcutaneous fat loss (orbital fat pads) and moderate muscle wasting (temporalis). Please specify severity if known: * Mild * Moderate * Severe * Other/Unknown <Kady Gray RN - Last Filed: 10/03/25 13:30> Clarified Diagnosis Clarified Diagnosis: agree with severe protein calorie malnutrition, 18lb weight loss in a month <Caleb Kiran DO - Last Filed: 10/03/25 13:32>
--- NOTE | 2025-10-03 14:42 | P.PNNP_ITS ---
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/dialysis ~ a month ago with acute hospitalization at [facility] * apparently missed treatments on 09/28 and 10/01 * on T/T/S schedule at [facility] * s/p cautious IVF resuscitation along with IV albumin * HD today * follow electrolytes, volume status, and clearance (2) Sepsis: Qualifiers: Sepsis acute organ dysfunction status: unspecified Sepsis type: sepsis due to unspecified organism Qualified Code(s): A41.9 - Sepsis, unspecified organism Code(s): A41.9 - Sepsis, unspecified organism Status: Acute Assessment and Plan: * hypotension noted in ER and on admission to medical floor * 90 - 100s systolic in the ER (despite known history of HTN) * 80s systolic on transfer to the floor * associated with generalized weakness * suspect multifactorial etiology... * volume depletion: - diarrhea - poor oral intake - diuretic therapy * ongoing BP medications prior to admission * early infection: - elevated lactic acid (has normalized) - toe wounds * s/p IVF resuscitation along with IV albumin * follow culture data (blood and urine): * blood cultures positive - Staph aureus * urine cultures with no growth * see #3 and #4 * CT imaging (10/01) noted: * cardiomegaly with patchy areas of groundglass opacification which may represent vascular congestion and early decompensation * enlarged pulmonary arteries may represent pulmonary arterial hypertension...atypical inflammatory or infectious process could have a similar appearance * several lung nodules concerning for metastatic malignant process. Hematogenous infectious process could potentially have a similar appearance * mildly distended gallbladder but no biliary ductal dilatation seen. Correlate with right upper quadrant ultrasound for optimal evaluation * ossible mild urinary bladder wall thickening...correlate with urinalysis * 4.4 cm ascending thoracic aortic aneurysm * follow trend of hemodynamics (3) Endocarditis: Code(s): I38 - Endocarditis, valve unspecified Status: Acute Assessment and Plan: * as noted by TTE: * left ventricular ejection fraction is visually estimated to be 35 - 40% * linear artifact in right ventricle suggestive of catheter(s), pacemaker lead(s), or ICD lead(s) * right ventricle is dilated with mildly reduced systolic function * there is evidence of endocarditis measuring 1.6 x 1.1cm along the septal leaflet of the tricuspid valve * mild tricuspid regurgitation * Cardiology consulted for cardiomyopathy and possible need for LETY * Infectious Disease consulted (4) Bacteremia: Code(s): R78.81 - Bacteremia Status: Acute Assessment and Plan: * blood cultures with Staph aureus * already on antibiotics * several potential sources: * tunneled HD catheter * pacemaker + leads * PVD/toes * other(?) * plan removal of tunneled HD catheter and placement of temporary HD catheter * Surgery consulted for this intervention * will defer to Infectious Disease but still may need LETY as well (5) Wound of foot: Code(s): S91.309A - Unspecified open wound, unspecified foot, initial encounter Status: Acute Assessment and Plan: * right 4th toe necrotic appeaarance * wound care following * on antibiotics already (see #2) (6) Atrial fibrillation/flutter: Status: Acute Assessment and Plan: * known history * Eliquis on hold * on heparin gtt for now (7) HTN (hypertension): Qualifiers: Hypertension type: primary hypertension Qualified Code(s): I10 - Essential (primary) hypertension Code(s): I10 - Essential (primary) hypertension Status: Chronic Assessment and Plan: * known history * however, hypotension noted on admission * BP medications on hold * follow trend of hemodynamics (8) Peripheral vascular disease: Code(s): I73.9 - Peripheral vascular disease, unspecified Status: Chronic Assessment and Plan: * known history and quite severe * s/p mutiple interventions in LEs * s/p toe amputations as noted (9) Diabetes mellitus type 2 in obese: Code(s): E11.69 - Type 2 diabetes mellitus with other specified complication; E66.9 - Obesity, unspecified Status: Chronic Assessment and Plan: * follow accu-checks * glycemic control per hospitalist/forensic psychiatrist (10) Generalized weakness: Code(s): R53.1 - Weakness Status: Acute Assessment and Plan: * likely related to acute illness * low BP + diarrhea + poor oral intake * CT scan of the brain noted: * no acute hemorrhage or large acute ischemic event * possible old right subdural hygroma * chronic appearing right-sided basal ganglia infarction * continue supportive therapy Will continue to follow. L Subjective Date/time seen: 10/03/25 14:42 Interval history: Follow-up for end stage renal disease on hemodialysis. Tolerating dialysis treatment at the time of my visit (seen on HD at 2:32pm); no apparent distress noted when seen; no acute complaints voiced at the time of my visit; stable hemodynamics noted in the last 24 hours; however, still with intermittent fevers in the last 24 - 48 hours with a T-max of 101?; no other acute issues/events overnight or earlier this morning; positive blood culture results as well as Echo results noted. Exam 2 Narrative: General: ill-appearing elderly male in no acute distress Heart: normal S1 and S2; no rub Lungs: clear anteriorly; decreased at bases Abdomen: soft, nontender, nondistended, positive bowel sounds Extremities: no cyanosis or clubbing; trace edema Skin: toe wounds/amputations present Objective Data Vital Signs Vital Signs: Vital Signs Temp Pulse Resp BP Pulse Ox O2 Del Method 10/03/25 14:30 62 111/62 10/03/25 14:15 77 111/58 L 10/03/25 14:00 62 111/58 L 10/03/25 14:00 99.2 F 61 25 H 111/58 L 100 10/03/25 14:00 61 10/03/25 13:46 111/57 L 10/03/25 13:35 99.2 F 62 21 H 111/57 L 100 10/03/25 13:00 99.0 F 62 23 H 110/58 L 100 10/03/25 12:00 98.7 F 62 17 106/67 100 10/03/25 12:00 62 10/03/25 12:00 100 Room Air 10/03/25 11:00 98.5 F 62 24 H 109/56 L 99 10/03/25 10:00 61 10/03/25 10:00 98.6 F 62 24 H 108/58 L 99 10/03/25 09:00 98.4 F 61 23 H 102/56 L 99 10/03/25 08:00 62 10/03/25 08:00 98.0 F 62 22 H 109/60 100 10/03/25 08:00 99 Room Air 10/03/25 07:00 98.1 F 60 17 100/55 L 99 10/03/25 05:45 98.4 F 62 12 105/60 98 10/03/25 05:44 62 10/03/25 05:00 98.4 F 62 11 L 103/56 L 98 10/03/25 04:00 98.5 F 62 12 99/54 L 98 10/03/25 04:00 62 10/03/25 04:00 97 Room Air 10/03/25 03:00 62 24 H 99/53 L 97 10/03/25 02:00 99.8 F H 62 24 H 85/70 L 97 10/03/25 02:00 62 10/03/25 01:04 100.5 F H 10/03/25 01:00 62 18 95/52 L 98 10/03/25 00:04 101.0 F H 10/03/25 00:00 62 10/03/25 00:00 101 F H 62 18 98/53 L 98 10/02/25 23:32 98 Room Air 10/02/25 23:00 68 20 102/54 L 96 Intake/Output Intake/Output: Intake & Output 09/30/25 10/01/25 10/02/25 10/03/25 23:59 23:59 23:59 23:59 Intake Total 902 742.9 302.8 Output Total 300 100 175 Balance 602 642.9 127.8 Meds/Results Medications: Active Medications Generic Name Dose Route Start Last Admin Trade Name Freq PRN Reason Stop Dose Admin Acetaminophen 650 mg 10/01/25 13:23 10/03/25 22:37 Acetaminophen 650 Mg Suppository RECTAL 650 mg Q6H PRN Administration Mild Pain (1-3) or Fever Dextrose 12.5 gm 10/01/25 13:04 Dextrose 50% 25 Gm/50 Ml Syringe IV PUSH PRN PRN Hypoglycemia Protocol Glucagon 1 mg 10/01/25 13:04 Glucagon For Inj 1 Mg Vial IM PRN PRN Hypoglycemia Protocol Glucose 15 gm 10/01/25 13:04 Glucose Oral Gel 15 Gm Of Glucse In 37.5 Gm Tube PO PRN PRN Hypoglycemia Protocol Heparin Sodium (Porcine) 7,500 units 10/01/25 14:23 Heparin Sodium 5,000 Units/Ml Vial IV PUSH PRN PRN aPTT less than 55 seconds Heparin Sodium (Porcine) 3,500 units 10/01/25 14:23 10/03/25 06:34 Heparin Sodium 5,000 Units/Ml Vial IV PUSH 3,500 units PRN PRN Administration aPTT 55 - 70 seconds Dextrose 1,000 mls @ 100 mls/hr 10/01/25 13:04 Dextrose 5% 1,000 Ml IVPB PRN PRN Hypoglycemia Protocol Piperacillin Sod/Tazobactam 50 mls @ 100 mls/hr 10/01/25 15:00 10/03/25 22:12 Sod 2.25 gm/ Sodium Chloride IVPB Infused Q8HR [facility] Infusion Heparin Sodium/Dextrose 25,000 units in 250 mls @ 0 mls/hr 10/01/25 14:25 10/03/25 19:30 Heparin Sodium/D5w 100 Units/Ml IV CONT Not Given On Hold: 10/03/25 17:05 .Q0M [facility] Protocol 0 UNITS/HR Albumin Human 50 mls @ 999 mls/hr 10/03/25 08:47 Albutein IVPB 11/02/25 08:46 Q10M PRN HYPOTENSION Cefazolin Sodium 1 gm/ Sodium 50 mls @ 100 mls/hr 10/03/25 21:00 10/03/25 20:41 Chloride IVPB Infused Q24H [facility] Infusion Insulin Aspart 3 - 6 units 10/01/25 18:00 10/03/25 18:41 Insulin Aspart (*Bkc) 100 Units/Ml SUB-Q Not Given Q6HR [facility] Protocol Levothyroxine Sodium 25 mcg 10/02/25 06:30 10/03/25 04:52 Levothyroxine Sodium Inj 100 Mcg/5 Ml Vial IV PUSH 25 mcg DAILY@0630 [facility] Administration Pantoprazole Sodium 40 mg 10/02/25 09:00 10/03/25 08:26 Pantoprazole Sodium Iv 40 Mg Vial IV PUSH 40 mg QAM [facility] Administration Sodium Chloride 10 ml 10/03/25 14:00 10/03/25 20:11 Central Line Flush IV PUSH 10 ml Q8HR [facility] Administration Sodium Chloride 20 ml 10/03/25 11:21 Central Line Flush IV PUSH PRN PRN after blood draws Vancomycin HCl 1 each 10/01/25 15:02 Vancomycin For Hemodialysis IVPB PRN PRN Vancomycin Protocol Radiology Results: ITS Impressions Head CT 10/01/25 13:35 IMPRESSION: 1. No acute hemorrhage or large acute ischemic event. 2. Possible old right subdural hygroma. 3. Chronic appearing right-sided basal ganglia infarction. Chest/Abdomen/Pelvis CT 10/01/25 13:38 IMPRESSION: 1. Directed noncontrast exam demonstrates cardiomegaly with patchy areas of groundglass opacification which may represent vascular congestion and early decompensation. Enlarged pulmonary arteries may represent pulmonary arterial hypertension. Atypical inflammatory or infectious process could have a similar appearance. 2. Several lung nodules concerning for metastatic malignant process. Hematogenous infectious process could potentially have a similar appearance. 3. Mildly distended gallbladder but no biliary ductal dilatation seen. Correlate with right upper quadrant ultrasound for optimal evaluation. 4. Possible mild urinary bladder wall thickening. Correlate with urinalysis. 5. 4.4 cm ascending thoracic aortic aneurysm Chest X-Ray 10/02/25 08:00 IMPRESSION: 1. Possible small area of consolidation or atelectasis left lung base. Labs Labs: Laboratory Tests 10/03/25 05:31 10/03/25 05:31 Lactic Acid 1.1 Calcium 7.2 L Phosphorus 4.3 Magnesium 2.2 Total Bilirubin 2.3 H AST 49 ALT 27 Alkaline Phosphatase 149 H C-Reactive Protein 36.0 H Total Protein 6.9 Albumin 3.7 Random Vancomycin 18.6 Microbiology 10/01/25 12:17 Blood Blood Culture - Preliminary Staphylococcus aureus 10/01/25 12:11 Blood Blood Culture - Preliminary Staphylococcus aureus Staphylococcus aureus#2 10/01/25 14:22 Urine Catheterized Urine Culture - Final
--- NOTE | 2025-10-03 15:00 | WPDIDCN ---
Assessment and Plan Assessment and plan (1) Staphylococcus aureus bacteremia with sepsis: Code(s): A41.01 - Sepsis due to Methicillin susceptible Staphylococcus aureus Status: Acute (2) Endocarditis of tricuspid valve: Code(s): I07.9 - Rheumatic tricuspid valve disease, unspecified Status: Acute (3) CLABSI (central line-associated bloodstream infection): Code(s): T80.211A - Bloodstream infection due to central venous catheter, initial encounter Status: Acute (4) End-stage renal disease on hemodialysis: Code(s): N18.6 - End stage renal disease; Z99.2 - Dependence on renal dialysis Status: Acute (5) AICD (automatic cardioverter/defibrillator) present: Code(s): Z95.810 - Presence of automatic (implantable) cardiac defibrillator Status: Acute (6) Pacemaker: Code(s): Z95.0 - Presence of cardiac pacemaker Status: Acute Plan 1. Staphylococcus aureus bacteremia. Sensitivities pending. 2. Concern for tricuspid valve endocarditis via TTE. 3. Presence of hemodialysis PermCath as well as AICD/ pacemaker. 4. Acute sepsis with shock on presentation secondary to numbers 1 and 2, above. 5. Acute on chronic CHF on presentation secondary to missed hemodialysis. Doubt active pneumonia. Septic embolization a possibility. Plan: -- suspect this Staph aureus bacteremia with tricuspid valve endocarditis originated from PermCath CLABSI. AICD/ pacemaker present but TTE makes no mention of lead vegetations. -- repeat blood cultures. -- currently receiving Zosyn and vancomycin. Would continue with vancomycin, add cefazolin 1 g IV Q 24 hours, and discontinue Zosyn. -- will need removal and replacement of PermCath. In the setting of endocarditis would initially place a temporary Pierce catheter. Consider transition back to PermCath once post line removal follow-up blood cultures are proven to be negative. -- if there are no contraindications would recommend LETY to verify lack of AICD/ pacemaker lead involvement. -- discussed with Dr. Perry. Patient was seen via video telehealth consultation with the assistance of staff. Chart, data, and patient independently reviewed. Patient was located at [facility] while I was located in my [place] office. Received verbal consent from patient. 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 Presented to the ED yesterday after missing 2 episodes of dialysis and with development of fever, hypotension, abdominal pain with diarrhea, and some degree of cough. Chest x-ray without acute findings although CT of chest/abdomen / pelvis with ground-glass changes that might suggest fluid overload. Presentation blood cultures positive for Staph aureus, sensitivities pending, and TTE suggesting tricuspid valve endocarditis. Linear artifacts in the right atrium are suggestive of hemodialysis catheter, pacemaker lead, and ICD lead, although no specific identification of lead vegetations. No known antibiotic allergies and he has been receiving Zosyn and vancomycin. Also requiring norepinephrine. Review of Systems Review of Systems: All systems reviewed & are unremarkable except as noted in HPI and below PMFSH Past Medical History Medical History Atrial fibrillation/flutter CKD (chronic kidney disease) Stage 3 Pressure ulcer of right foot 2021 BPH (benign prostatic hyperplasia) HTN (hypertension) Congestive heart failure Hypothyroidism Diabetes mellitus type 2 in obese Surgical History Surgical History S/P foot surgery, right 2021 Family History Family History Unknown Diabetes mellitus Social History Social History Social History: Smoking status: Never smoker Alcohol intake: never Substance use: never Substance use type: does not use Do You Feel Safe in your Home?: Yes Lack of Transportation: No Lack of Food: Never True Current Housing: I Have Housing Concerned About Future Housing: No Difficulty Paying Gas/Electric Bills: No Difficulty Paying for Meds: No Currently Unemployed: No Education: High School Diploma/GED Difficulty w/ Childcare or Family Care: No Living arrangements: with family Additional living arrangements comments: Gender identity (if verbalized by the patient): Male Spiritual care concerns: No Meds Home Medications and Allergies Home Medications ?Medication ?Instructions ?Recorded ?Confirmed ?Type atorvastatin 20 mg tablet 20 mg PO HS 06/30/23 10/01/25 History amiodarone 200 mg tablet (Pacerone) 200 mg PO Q12HR #60 tabs 07/01/23 10/01/25 Rx aspirin 81 mg chewable tablet 81 mg PO DAILY@0800 #30 tabs 07/01/23 10/01/25 Rx (Children's Aspirin) cyclobenzaprine 10 mg tablet 5 mg (1/2 x 10 mg) PO Q8H PRN 07/01/23 10/01/25 Rx Muscle Spasm #30 tabs famotidine 20 mg tablet 20 mg PO DAILY #30 tabs 07/01/23 10/01/25 Rx levothyroxine 50 mcg tablet 50 mcg PO DAILY@0630 #30 tabs 07/01/23 10/01/25 Rx (Synthroid) metoprolol tartrate 25 mg tablet 25 mg PO Q12HR #60 tabs 07/01/23 10/01/25 Rx tamsulosin 0.4 mg capsule 0.4 mg PO QAM #30 caps 07/01/23 10/01/25 Rx albuterol 90 mcg/actuation aerosol 90 mcg inhalation .q4hr PRN 02/14/25 10/01/25 History inhaler shortness of breath apixaban 5 mg tablet (Eliquis) 5 mg PO BID 02/14/25 10/01/25 History bumetanide 1 mg tablet 1 mg PO BID 02/14/25 10/01/25 History insulin glargine 100 unit/mL (3 25 unit subcut .q12hr 02/14/25 10/01/25 History mL) subcutaneous pen (Basaglar KwikPen U-100 Insulin) insulin lispro 100 unit/mL 10 unit subcut TIDWM 02/14/25 10/01/25 History subcutaneous pen (Humalog KwikPen (U-100) Insulin) metolazone 2.5 mg tablet 2.5 mg PO QMWF 02/14/25 10/01/25 History acetaminophen 325 mg tablet 650 mg PO Q4H PRN Pain Rated 5 Or 05/23/25 11/11/25 History Less clopidogrel 75 mg tablet 75 mg PO DAILY 04/12/25 10/01/25 History B complex 11-folic acid 1 mg-C 100 1 tablet PO DAILY 10/01/25 10/01/25 History mg-biotin 300 mcg-zinc 50 mg tablet (Dialyvite) acetaminophen 500 mg tablet 500 mg PO Q6H PRN fever or pain 10/01/25 10/01/25 History Allergies Allergy/AdvReac Type Severity Reaction Status Date / Time No Known Allergies Allergy Verified 10/01/25 11:39 Vital Signs Vital Signs - 24 hr 10/02/25 16:00 10/02/25 16:00 10/02/25 16:00 Temperature 99.9 F H Pulse Rate 64 64 64 Respiratory Rate 18 18 Blood Pressure 96/54 L Pulse Oximetry 97 97 Oxygen Delivery Room Air 10/02/25 17:00 10/02/25 18:00 10/02/25 18:00 Temperature 99.9 F H 99.7 F H Pulse Rate 98 95 95 Respiratory Rate 17 18 Blood Pressure 113/90 97/52 L Pulse Oximetry 98 98 Oxygen Delivery 10/02/25 19:00 10/02/25 19:57 10/02/25 20:00 Temperature 100.1 F H Pulse Rate 64 99 Respiratory Rate 17 20 Blood Pressure 100/53 L 95/59 L Pulse Oximetry 100 96 97 Oxygen Delivery Room Air 10/02/25 20:00 10/02/25 21:00 10/02/25 21:53 Temperature Pulse Rate 99 64 96 Respiratory Rate 20 Blood Pressure 112/55 L Pulse Oximetry 99 Oxygen Delivery 10/02/25 22:00 10/02/25 23:00 10/02/25 23:32 Temperature 100.8 F H Pulse Rate 64 68 Respiratory Rate 16 20 Blood Pressure 103/70 102/54 L Pulse Oximetry 99 96 98 Oxygen Delivery Room Air 10/03/25 00:00 10/03/25 00:00 10/03/25 00:04 Temperature 101 F H 101.0 F H Pulse Rate 62 62 Respiratory Rate 18 Blood Pressure 98/53 L Pulse Oximetry 98 Oxygen Delivery 10/03/25 01:00 10/03/25 01:04 10/03/25 02:00 Temperature 100.5 F H Pulse Rate 62 62 Respiratory Rate 18 Blood Pressure 95/52 L Pulse Oximetry 98 Oxygen Delivery 10/03/25 02:00 10/03/25 03:00 10/03/25 04:00 Temperature 99.8 F H Pulse Rate 62 62 Respiratory Rate 24 H 24 H Blood Pressure 85/70 L 99/53 L Pulse Oximetry 97 97 97 Oxygen Delivery Room Air 10/03/25 04:00 10/03/25 04:00 10/03/25 05:00 Temperature 98.5 F 98.4 F Pulse Rate 62 62 62 Respiratory Rate 12 11 L Blood Pressure 99/54 L 103/56 L Pulse Oximetry 98 98 Oxygen Delivery 10/03/25 05:44 10/03/25 05:45 10/03/25 07:00 Temperature 98.4 F 98.1 F Pulse Rate 62 62 60 Respiratory Rate 12 17 Blood Pressure 105/60 100/55 L Pulse Oximetry 98 99 Oxygen Delivery 10/03/25 08:00 10/03/25 08:00 10/03/25 08:00 Temperature 98.0 F Pulse Rate 62 62 Respiratory Rate 22 H Blood Pressure 109/60 Pulse Oximetry 99 100 Oxygen Delivery Room Air 10/03/25 09:00 10/03/25 10:00 10/03/25 10:00 Temperature 98.4 F 98.6 F Pulse Rate 61 62 61 Respiratory Rate 23 H 24 H Blood Pressure 102/56 L 108/58 L Pulse Oximetry 99 99 Oxygen Delivery 10/03/25 11:00 10/03/25 12:00 10/03/25 12:00 Temperature 98.5 F Pulse Rate 62 62 Respiratory Rate 24 H Blood Pressure 109/56 L Pulse Oximetry 99 100 Oxygen Delivery Room Air 10/03/25 12:00 10/03/25 13:00 10/03/25 14:00 Temperature 98.7 F 99.0 F Pulse Rate 62 62 61 Respiratory Rate 17 23 H Blood Pressure 106/67 110/58 L Pulse Oximetry 100 100 Oxygen Delivery 10/03/25 14:00 Temperature 99.2 F Pulse Rate 61 Respiratory Rate 25 H Blood Pressure 111/58 L Pulse Oximetry 100 Oxygen Delivery Exam Narrative: Patient seen in the ICU while undergoing hemodialysis. Awake and alert and interactive but somewhat slow in answering questions. Nontoxic in appearance. Visually impaired. No respiratory difficulty. Hemodialysis catheter site without inflammation. No inflammation at pacemaker/ AICD bed site. Abdomen nondistended. No evidence of rash. Results Labs 10/03/25 05:31 10/03/25 05:31 Labs: Short CBC 10/03/25 Range/Units 05:31 WBC 10.6 H (4.5-10.0) K/mm3 Hgb 8.3 L (14.0-18.0) g/dL Hct 26.6 L (42.0-52.0) % Plt Count 71 L (150-375) k/mm3 BMP 10/03/25 05:31 Sodium 138 Potassium 3.1 L Chloride 96 L Carbon Dioxide 18 L BUN 118 H* Creatinine 8.17 H Glucose 141 H Calcium 7.2 L Liver Function 10/03/25 Range/Units 05:31 Total Bilirubin 2.3 H (0.2-1.3) mg/dL AST 49 (17-59) U/L ALT 27 (6-50) U/L Alkaline Phosphatase 149 H (38-126) U/L Albumin 3.7 (3.5-5.1) g/dL
--- NOTE | 2025-10-03 15:35 | PCSTNOTE ---
Please refer to the Bedside Swallow Evaluation in the EMR. Please note, silent aspiration cannot be ruled out at bedside. The above patient was seen for a repeat BSE; the previous BSE was limited due to the patient's lethargy. ST recommended re-eval; thus was seen on this date; pt is reportedly more alert but still lethargic. He stated he hasn't eaten in days. Vocal quality was breathy, & with cues to increase volume, vocal quality improved, but it was brief and returned promptly to breathy. Cursory oral motor assessment revealed functional strength and ROM. Pt is edentulous and stated he does not have dentures but does & can eat without teeth. Pt was receiving dialysis during testing and seated upright in the bed. He was presented with two ice chips and 1/4 tsp and 1/2 tsp of pudding. The oral stages appeared slightly slow but functional. No leakage or pocketing noted. During the pharyngeal stage, the swallow appeared timely, but laryngeal elevation was very sluggish and reduced. Delayed subtle s/s of aspiration were exhibited after the second ice chip and 1/2 tsp of pudding, i.e., weak cough. At that time, the testing was stopped. Impressions & Recommendations: dysphagia suspected, given the above findings (reduced laryngeal elevation/airway protection), with ice chips and pudding. Further testing via MBS is recommended to rule out aspiration, determine a safe diet and an appropriate POC. Spoke with JADE re ice chips only until MBS.
--- NOTE | 2025-10-03 16:18 | PM.CNGS ---
Assessment and Plan Assessment and plan (1) Bacteremia: Code(s): R78.81 - Bacteremia Status: Acute Assessment and Plan: Patient presented to the ED 2 days ago with complaints of generalized weakness. He had missed his dialysis on 09/28 and 10/01, when he presented to the ED. Labs revealed significantly elevated BUN and creatinine. As of this morning, BUN is 118 and creatinine is 8.17. WBC 10.6, down from 15.2. Blood cultures were drawn on 10/01 and are growing Staphylococcus aureus. Patient being treated with IV antibiotics per Infectious Disease recommendations. Echocardiogram suspicious for endocarditis. General surgery consulted for removal of PermCath and placement of temporary hemodialysis catheter. Scheduled for surgery tomorrow afternoon. Patient should remain NPO at midnight. Continue to hold heparin. (2) Endocarditis of tricuspid valve: Code(s): I07.9 - Rheumatic tricuspid valve disease, unspecified Status: Acute (3) HTN (hypertension): Qualifiers: Hypertension type: primary hypertension Qualified Code(s): I10 - Essential (primary) hypertension Code(s): I10 - Essential (primary) hypertension Status: Chronic (4) Diabetes mellitus with chronic kidney disease: Code(s): E11.22 - Type 2 diabetes mellitus with diabetic chronic kidney disease Status: Chronic (5) Peripheral vascular disease: Code(s): I73.9 - Peripheral vascular disease, unspecified Status: Acute (6) End-stage renal disease on hemodialysis: Code(s): N18.6 - End stage renal disease; Z99.2 - Dependence on renal dialysis Status: Acute (7) Generalized weakness: Code(s): R53.1 - Weakness Status: Acute (8) Atrial fibrillation/flutter: Status: Acute Plan Discussed patient's case and plan of care with Dr. Hopkins. 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 Patient presented to the ED on 10/01/2025 with complaints of generalized weakness, diarrhea, fevers. He skipped his dialysis on 09/28 and 10/01. Upon admission to the ED he was found to be hypotensive. No acute findings on chest x-ray. Once patient was transferred to the medical floor, his systolic blood pressures dropped to the 80s and patient was transferred to the ICU. Patient started on Zosyn and vancomycin due to elevated white blood cell count. Blood cultures that were drawn on 10/01 began growing Staph aureus in 2 out of the 2 bottles. Central line placed. General surgery team consulted for removal of PermCath, likely source of CLABSI. Concern for tricuspid valve endocarditis via TTE. Per ID recs, patient switched to vancomycin and cefazolin. Zosyn discontinued. Upon interview with patient today, he is receiving hemodialysis. Denies any other surgeries to his neck or chest area aside from right-sided PermCath placement. Currently NPO, awaiting [employer] evaluation. [facility] Past Medical History Medical History Atrial fibrillation/flutter CKD (chronic kidney disease) Stage 3 Pressure ulcer of right foot 2021 BPH (benign prostatic hyperplasia) HTN (hypertension) Congestive heart failure Hypothyroidism Diabetes mellitus type 2 in obese Surgical History Surgical History S/P foot surgery, right 2021 Family History Family History Unknown Diabetes mellitus Social History Social History Social History: Smoking status: Never smoker Alcohol intake: never Substance use: never Substance use type: does not use Do You Feel Safe in your Home?: Yes Lack of Transportation: No Lack of Food: Never True Current Housing: I Have Housing Concerned About Future Housing: No Difficulty Paying Gas/Electric Bills: No Difficulty Paying for Meds: No Currently Unemployed: No Education: High School Diploma/GED Difficulty w/ Childcare or Family Care: No Living arrangements: with family Additional living arrangements comments: Gender identity (if verbalized by the patient): Male Spiritual care concerns: No Meds Home Medications and Allergies Home Medications ?Medication ?Instructions ?Recorded ?Confirmed ?Type atorvastatin 20 mg tablet 20 mg PO HS 06/30/23 10/01/25 History amiodarone 200 mg tablet (Pacerone) 200 mg PO Q12HR #60 tabs 07/01/23 10/01/25 Rx aspirin 81 mg chewable tablet 81 mg PO DAILY@0800 #30 tabs 07/01/23 10/01/25 Rx (Children's Aspirin) cyclobenzaprine 10 mg tablet 5 mg (1/2 x 10 mg) PO Q8H PRN 07/01/23 10/01/25 Rx Muscle Spasm #30 tabs famotidine 20 mg tablet 20 mg PO DAILY #30 tabs 07/01/23 10/01/25 Rx levothyroxine 50 mcg tablet 50 mcg PO DAILY@0630 #30 tabs 07/01/23 10/01/25 Rx (Synthroid) metoprolol tartrate 25 mg tablet 25 mg PO Q12HR #60 tabs 07/01/23 10/01/25 Rx tamsulosin 0.4 mg capsule 0.4 mg PO QAM #30 caps 07/01/23 10/01/25 Rx albuterol 90 mcg/actuation aerosol 90 mcg inhalation .q4hr PRN 02/14/25 10/01/25 History inhaler shortness of breath apixaban 5 mg tablet (Eliquis) 5 mg PO BID 02/14/25 10/01/25 History bumetanide 1 mg tablet 1 mg PO BID 02/14/25 10/01/25 History insulin glargine 100 unit/mL (3 25 unit subcut .q12hr 02/14/25 10/01/25 History mL) subcutaneous pen (Basaglar KwikPen U-100 Insulin) insulin lispro 100 unit/mL 10 unit subcut TIDWM 02/14/25 10/01/25 History subcutaneous pen (Humalog KwikPen (U-100) Insulin) metolazone 2.5 mg tablet 2.5 mg PO QMWF 02/14/25 10/01/25 History acetaminophen 325 mg tablet 650 mg PO Q4H PRN Pain Rated 5 Or 04/12/25 10/01/25 History Less clopidogrel 75 mg tablet 75 mg PO DAILY 04/12/25 10/01/25 History B complex 11-folic acid 1 mg-C 100 1 tablet PO DAILY 10/01/25 10/01/25 History mg-biotin 300 mcg-zinc 50 mg tablet (Dialyvite) acetaminophen 500 mg tablet 500 mg PO Q6H PRN fever or pain 10/01/25 10/01/25 History Allergies Allergy/AdvReac Type Severity Reaction Status Date / Time No Known Allergies Allergy Verified 10/01/25 11:39 Vital Signs Vital Signs - 24 hr 10/02/25 17:00 10/02/25 18:00 10/02/25 18:00 Temperature 99.9 F H 99.7 F H Pulse Rate 98 95 95 Respiratory Rate 17 18 Blood Pressure 113/90 97/52 L Pulse Oximetry 98 98 Oxygen Delivery 10/02/25 19:00 10/02/25 19:57 10/02/25 20:00 Temperature 100.1 F H Pulse Rate 64 99 Respiratory Rate 17 20 Blood Pressure 100/53 L 95/59 L Pulse Oximetry 100 96 97 Oxygen Delivery Room Air 10/02/25 20:00 10/02/25 21:00 10/02/25 21:53 Temperature Pulse Rate 99 64 96 Respiratory Rate 20 Blood Pressure 112/55 L Pulse Oximetry 99 Oxygen Delivery 10/02/25 22:00 10/02/25 23:00 10/02/25 23:32 Temperature 100.8 F H Pulse Rate 64 68 Respiratory Rate 16 20 Blood Pressure 103/70 102/54 L Pulse Oximetry 99 96 98 Oxygen Delivery Room Air 10/03/25 00:00 10/03/25 00:00 10/03/25 00:04 Temperature 101 F H 101.0 F H Pulse Rate 62 62 Respiratory Rate 18 Blood Pressure 98/53 L Pulse Oximetry 98 Oxygen Delivery 10/03/25 01:00 10/03/25 01:04 10/03/25 02:00 Temperature 100.5 F H Pulse Rate 62 62 Respiratory Rate 18 Blood Pressure 95/52 L Pulse Oximetry 98 Oxygen Delivery 10/03/25 02:00 10/03/25 03:00 10/03/25 04:00 Temperature 99.8 F H Pulse Rate 62 62 Respiratory Rate 24 H 24 H Blood Pressure 85/70 L 99/53 L Pulse Oximetry 97 97 97 Oxygen Delivery Room Air 10/03/25 04:00 10/03/25 04:00 10/03/25 05:00 Temperature 98.5 F 98.4 F Pulse Rate 62 62 62 Respiratory Rate 12 11 L Blood Pressure 99/54 L 103/56 L Pulse Oximetry 98 98 Oxygen Delivery 10/03/25 05:44 10/03/25 05:45 10/03/25 07:00 Temperature 98.4 F 98.1 F Pulse Rate 62 62 60 Respiratory Rate 12 17 Blood Pressure 105/60 100/55 L Pulse Oximetry 98 99 Oxygen Delivery 10/03/25 08:00 10/03/25 08:00 10/03/25 08:00 Temperature 98.0 F Pulse Rate 62 62 Respiratory Rate 22 H Blood Pressure 109/60 Pulse Oximetry 99 100 Oxygen Delivery Room Air 10/03/25 09:00 10/03/25 10:00 10/03/25 10:00 Temperature 98.4 F 98.6 F Pulse Rate 61 62 61 Respiratory Rate 23 H 24 H Blood Pressure 102/56 L 108/58 L Pulse Oximetry 99 99 Oxygen Delivery 10/03/25 11:00 10/03/25 12:00 10/03/25 12:00 Temperature 98.5 F Pulse Rate 62 62 Respiratory Rate 24 H Blood Pressure 109/56 L Pulse Oximetry 99 100 Oxygen Delivery Room Air 10/03/25 12:00 10/03/25 13:00 10/03/25 13:35 Temperature 98.7 F 99.0 F 99.2 F Pulse Rate 62 62 62 Respiratory Rate 17 23 H 21 H Blood Pressure 106/67 110/58 L 111/57 L Pulse Oximetry 100 100 100 Oxygen Delivery 10/03/25 13:46 10/03/25 14:00 10/03/25 14:00 Temperature 99.2 F Pulse Rate 61 61 Respiratory Rate 25 H Blood Pressure 111/57 L 111/58 L Pulse Oximetry 100 Oxygen Delivery 10/03/25 14:00 10/03/25 14:15 10/03/25 14:30 Temperature Pulse Rate 62 77 62 Respiratory Rate Blood Pressure 111/58 L 111/58 L 111/62 Pulse Oximetry Oxygen Delivery 10/03/25 14:45 10/03/25 15:00 10/03/25 15:00 Temperature 99.5 F Pulse Rate 62 62 61 Respiratory Rate 22 H Blood Pressure 115/62 121/65 121/65 Pulse Oximetry 100 Oxygen Delivery 10/03/25 15:15 10/03/25 16:15 Temperature Pulse Rate 62 64 Respiratory Rate Blood Pressure 115/61 119/59 L Pulse Oximetry Oxygen Delivery Exam Const: General: comfortable and no acute distress Eyes: General: appearance normal, both eyes and all related structures Neck: Neck: supple and no JVD Chest: Other: Right-sided PermCath in place and functioning properly Resp: Effort & Inspection: tachypneic Cardio: Rate: regular rate Skin: General skin exam: normal color and no rashes or lesions noted Neuro: General: gait normal Extrem: General: normal to inspection Psych: Mental Status: mental status grossly normal Results Labs 10/03/25 05:31 10/03/25 05:31 Labs: Abnormal lab results 10/02/25 10/02/25 10/03/25 Range/Units 19:27 23:57 05:31 WBC 10.6 H (4.5-10.0) K/mm3 RBC 3.08 L (4.6-6.20) M/mm3 Hgb 8.3 L (14.0-18.0) g/dL Hct 26.6 L (42.0-52.0) % MCHC 31.2 L (32-36) g/dl RDW 18.4 H (11.5-14.5) % Plt Count 71 L (150-375) k/mm3 MPV 11.8 H (7.4-10.4) fl Immature Gran % (Auto) 9.8 H (0-0.5) % Neut % (Auto) 76.4 H (45.5-73.1) % Lymph % (Auto) 7.9 L (18.3-44.2) % Lymph # (Auto) 0.83 L (0.9-3.2) K/mm3 Abs Immat Gran (auto) 1.04 H (0.00-0.031) K/mm3 Absolute Neuts (auto) 8.1 H (1.3-6.7) K/mm3 Absolute Nucleated RBC 0.060 H (0.0-0.012) K/mm3 Neutrophils % (Manual) 84 H (46-73) % Lymphocytes % (Manual) 5 L (18-44) % Nucleated RBC % 0.6 H (0.0-0.2) % Abs Neuts (Manual) 9.32 H (1.3-6.7) K/mm3 Abs Lymphs (Manual) 0.53 L (1.1-4.5) K/mm3 APTT 71.3 H 66.7 H (22.3-36.8) Seconds Potassium 3.1 L (3.4-5.0) mmol/L Chloride 96 L (98-107) mmol/L Carbon Dioxide 18 L (22-30) mmol/L Anion Gap 24 H (4-12) mmol/L BUN 118 H* (9-20) mg/dL Creatinine 8.17 H (0.7-1.3) mg/dL Estimated GFR 7 L (59 - ) Glucose 141 H (65-110) mg/dL POC Capillary Glucose 127 H (65-105) mg/dl Calcium 7.2 L (8.4-10.2) mg/dL Total Bilirubin 2.3 H (0.2-1.3) mg/dL Alkaline Phosphatase 149 H (38-126) U/L C-Reactive Protein 36.0 H (<1.0) mg/dL 11/13/25 Range/Units 12:12 WBC (4.5-10.0) K/mm3 RBC (4.6-6.20) M/mm3 Hgb (14.0-18.0) g/dL Hct (42.0-52.0) % MCHC (32-36) g/dl RDW (11.5-14.5) % Plt Count (150-375) k/mm3 MPV (7.4-10.4) fl Immature Gran % (Auto) (0-0.5) % Neut % (Auto) (45.5-73.1) % Lymph % (Auto) (18.3-44.2) % Lymph # (Auto) (0.9-3.2) K/mm3 Abs Immat Gran (auto) (0.00-0.031) K/mm3 Absolute Neuts (auto) (1.3-6.7) K/mm3 Absolute Nucleated RBC (0.0-0.012) K/mm3 Neutrophils % (Manual) (46-73) % Lymphocytes % (Manual) (18-44) % Nucleated RBC % (0.0-0.2) % Abs Neuts (Manual) (1.3-6.7) K/mm3 Abs Lymphs (Manual) (1.1-4.5) K/mm3 APTT (22.3-36.8) Seconds Potassium (3.4-5.0) mmol/L Chloride (98-107) mmol/L Carbon Dioxide (22-30) mmol/L Anion Gap (4-12) mmol/L BUN (9-20) mg/dL Creatinine (0.7-1.3) mg/dL Estimated GFR (59 - ) Glucose (65-110) mg/dL POC Capillary Glucose 137 H (65-105) mg/dl Calcium (8.4-10.2) mg/dL Total Bilirubin (0.2-1.3) mg/dL Alkaline Phosphatase (38-126) U/L C-Reactive Protein (<1.0) mg/dL Diabetes panel 10/03/25 Range/Units 05:31 Sodium 138 (137-145) mmol/L Potassium 3.1 L (3.4-5.0) mmol/L Chloride 96 L (98-107) mmol/L Carbon Dioxide 18 L (22-30) mmol/L BUN 118 H* (9-20) mg/dL Creatinine 8.17 H (0.7-1.3) mg/dL Glucose 141 H (65-110) mg/dL Calcium 7.2 L (8.4-10.2) mg/dL AST 49 (17-59) U/L ALT 27 (6-50) U/L Alkaline Phosphatase 149 H (38-126) U/L Total Protein 6.9 (6.3-8.2) g/dL Albumin 3.7 (3.5-5.1) g/dL Calcium panel 10/03/25 Range/Units 05:31 Calcium 7.2 L (8.4-10.2) mg/dL Phosphorus 4.3 (2.5-4.5) mg/dL Albumin 3.7 (3.5-5.1) g/dL Pituitary panel 10/03/25 Range/Units 05:31 Sodium 138 (137-145) mmol/L Potassium 3.1 L (3.4-5.0) mmol/L Chloride 96 L (98-107) mmol/L Carbon Dioxide 18 L (22-30) mmol/L BUN 118 H* (9-20) mg/dL Creatinine 8.17 H (0.7-1.3) mg/dL Glucose 141 H (65-110) mg/dL Calcium 7.2 L (8.4-10.2) mg/dL Adrenal panel 10/03/25 Range/Units 05:31 Sodium 138 (137-145) mmol/L Potassium 3.1 L (3.4-5.0) mmol/L Chloride 96 L (98-107) mmol/L Carbon Dioxide 18 L (22-30) mmol/L BUN 118 H* (9-20) mg/dL Creatinine 8.17 H (0.7-1.3) mg/dL Glucose 141 H (65-110) mg/dL Calcium 7.2 L (8.4-10.2) mg/dL Total Bilirubin 2.3 H (0.2-1.3) mg/dL AST 49 (17-59) U/L ALT 27 (6-50) U/L Alkaline Phosphatase 149 H (38-126) U/L Total Protein 6.9 (6.3-8.2) g/dL Albumin 3.7 (3.5-5.1) g/dL All other labs normal.
[2025-10-03] MEDS: VANCOMYCIN HCL 1,000 MG in SODIUM CHLORIDE 0.9% IV 250 ML 250 MG IVPB (18:34)
[2025-10-03] MEDS: ceFAZolin 1 GM in SODIUM CHLORIDE 0.9% IV 50 ML 100 ML IVPB (20:11)
--- NOTE | 2025-10-03 20:35 | PC.NURSE ---
Call placed to pt's /POA, Landy Kat, in attempt to obtain consent for LETY and surgery to remove tunnel cath and place temporary cath on 10/04/25. No answer and unable to leave voice message.
[2025-10-04] VITALS (53 sets, daily range): BP systolic 104–132; BP diastolic 53–71; PULSE 60–72; RESP 16–29; TEMP 36.2–38.4; O2SAT 65–100
--- NOTE | 2025-10-04 | ECHO_ITS ---
Patient Info Name: Gildardo Kat Age: 70 years : 1955 Gender: Male Ht: 73 in Wt: 254 lbs BSA: 2.47 m2 Heart Rhythm: Sinus Rhythm Technical Quality: Good Exam Date: 10/04/2025 1:34 PM Patient Status: I Admit Date: 10/02/2025 Exam Type: CA echo transesophageal Complete two-dimensional, color flow and Doppler transesophageal study is performed. Staff Referring Physician: Blake Hopkins MD Survey Researcher: Shyla Wills Attending Provider: Melissa Vergara MD Summary 1. Normal left ventricular size with preserved systolic function. 2. Moderate left atrial enlarged. 3. Normal mitral valve with trivial amount of central MR. 4. Normal aortic valve with trivial amount of central AI. 5. Normal pulmonic valve. 6. Anatomically normal tricuspid valve with multilobe vegetation associated with the septal leaflet. Largest portion measures 1.5 cm in diameter. This vegetation extends to the ventricular lead of the pacemaker. Vegetation here is 0.9 cm diameter. 7. 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 Left Ventricle Left ventricular chamber dimension is normal. Right Ventricle Right ventricular chamber dimension is normal. Linear artifact in right ventricle suggestive of catheter(s), pacemaker lead(s), or ICD lead(s). Left Atria Left atrial chamber dimension is moderately enlarged. Right Atria Right atrial chamber dimension is normal. Linear artifact in the right atrium suggestive of catheter(s), pacemaker lead(s), or ICD lead(s). Aortic Valve The aortic valve is normal. No aortic valve vegetation visualized. Pulmonic Valve The pulmonic valve is normal. No pulmonic valve vegetation visualized. Mitral Valve The mitral valve has normal leaflets. No mitral valve vegetation visualized. Tricuspid Valve The tricuspid valve leaflets are normal. Moderate tricuspid valve vegetation visualized. Pericardium/Pleural The pericardium appears normal. Aorta The aortic root size at the sinus of Valsalva is normal. Report Signatures
[2025-10-04] MEDS: PIPERACILLIN/TAZOBACTAM SOD 2.25 GM in SODIUM CHLORIDE 0.9% IV 50 ML 100 ML IVPB (05:46)
[2025-10-04] MEDS: CENTRAL LINE FLUSH 10 ML IV PUSH ×3 (05:46→21:27)
[2025-10-04] MEDS: LEVOTHYROXINE SODIUM INJ 100 MCG/5 ML VIAL 25 MCG IV PUSH (06:02)
[2025-10-04 06:13] LABS: Hematocrit 28.1 % (42.0-52.0); Hemoglobin 8.7 g/dL (14.0-18.0); Immature Granulocyte Percent A 2.8 % (0-0.5); Immature Platelet Fraction Pct 8.1 % (0.9-11.2); Lymphocytes Absolute Auto 1.38 K/mm3 (0.9-3.2); Mean Corpuscular HGB Conc 31.0 g/dl (32-36); Mean Corpuscular Hemoglobin 27.3 pg (26-34); Mean Corpuscular Volume 88.1 fl (80-100); Nucleated Red Blood Cells Absolute Auto 0.100 K/mm3 (0.0-0.012); Nucleated Red Blood Cells Perc 0.9 % (0.0-0.2); Platelet Count Result 80 k/mm3 (150-375); Red Blood Count 3.19 M/mm3 (4.6-6.20); White Blood Count 11.3 K/mm3 (4.5-10.0)
[2025-10-04 06:44] LABS: Alanine Aminotransferase 23 U/L (6-50); Albumin Level 3.6 g/dL (3.5-5.1); Alkaline Phosphatase 229 U/L (38-126); Anion Gap 20 mmol/L (4-12); Aspartate Amino Transferase 41 U/L (17-59); Bilirubin,Total 2.5 mg/dL (0.2-1.3); Blood Urea Nitrogen 66 mg/dL (9-20); Calcium 8.5 mg/dL (8.4-10.2); Carbon Dioxide 21 mmol/L (22-30); Chloride 101 mmol/L (98-107); Estimated CRCL calculation 17 ml/min; Estimated Glomerular Filt Rate 12; Glucose 157 mg/dL (65-110); Magnesium 2.3 mg/dL (1.6-2.3); Potassium 2.9 mmol/L (3.4-5.0); Sodium 142 mmol/L (137-145); Total Protein 7.0 g/dL (6.3-8.2)
[2025-10-04 06:50] LABS: Schistocytes None Seen
[2025-10-04 06:51] LABS: Burr Cells 1+; Hypochromasia 2+; Target Cells 1+
[2025-10-04 06:52] LABS: Poikilocytosis 1+
[2025-10-04 06:53] LABS: Macrocytosis 1+ (NORMAL); Microcytosis 1+ (NORMAL)
--- NOTE | 2025-10-04 08:33 | WPDINTPN ---
Progress Note: A&P Assessment and Plan (1) Sepsis: Qualifiers: Sepsis acute organ dysfunction status: unspecified Sepsis type: sepsis due to unspecified organism Qualified Code(s): A41.9 - Sepsis, unspecified organism Code(s): A41.9 - Sepsis, unspecified organism Status: Inactive Assessment and Plan: 10/01: Patient presented the ED with complains of generalized weakness, diarrhea, unable to get up from his bed since 09/27/2025. Patient also missed his dialysis on 09/28 and on 10/01. Patient appeared intravascularly dry and was given fluids -10/01: Blood cultures growing Staph aureus await sensitivities -10/01: Urine cultures with no growth -10/01: MRSA screen is positive 10/03 echo showed There is evidence of endocarditis measuring 1.6 x 1.1cm along the septal leaflet of the tricuspid valve. There is mild tricuspid regurgitation Currently on vancomycin and Ancef. Zosyn discontinued Infectious disease following and managing antibiotics LETY ordered and pending Patient scheduled for removal of tunneled dialysis catheter today (2) Diarrhea: Qualifiers: Diarrhea type: unspecified type Qualified Code(s): R19.7 - Diarrhea, unspecified Code(s): R19.7 - Diarrhea, unspecified Status: Resolved Assessment and Plan: Patient with diarrhea, according the he has not been on any antibiotics recently -diarrhea has resolved 10/02: Stool for C diff is negative 10/01/2025: CT chest, abdomen, pelvis 1. Directed noncontrast exam demonstrates cardiomegaly with patchy areas of groundglass opacification which may represent vascular congestion and early decompensation. Enlarged pulmonary arteries may represent pulmonary arterial hypertension. Atypical inflammatory or infectious process could have a similar appearance. 2. Several lung nodules concerning for metastatic malignant process. Hematogenous infectious process could potentially have a similar appearance. 3. Mildly distended gallbladder but no biliary ductal dilatation seen. Correlate with right upper quadrant ultrasound for optimal evaluation. 4. Possible mild urinary bladder wall thickening. Correlate with urinalysis. 5. 4.4 cm ascending thoracic aortic aneurysm (3) Diabetes mellitus type 2 in obese: Code(s): E11.69 - Type 2 diabetes mellitus with other specified complication; E66.9 - Obesity, unspecified Status: Chronic Assessment and Plan: History of type 2 diabetes, patient is on Lantus 25 units q.12 hours at home along with Humalog 10 units subQ t.i.d. with meals -patient currently NPO, hold Lantus for now -continue Accu-Cheks and sliding scale insulin (4) End-stage renal disease on hemodialysis: Code(s): N18.6 - End stage renal disease; Z99.2 - Dependence on renal dialysis Status: Acute Assessment and Plan: History of end-stage renal disease on dialysis (Shaggylanny, Serena, Nickolas) has missed dialysis on 09/28/2025 and 10/01/2025 -on admission seemed to be volume depleted, received IV fluid bolus and albumin for intravascular volume expansion, Nephrology was agreeable to IV fluids and volume expansion since chest x-ray was clear patient was on room air -fluids were given cautiously due to history of end-stage renal disease on dialysis -nephrology was consulted from the ED, 10/03 patient was dialyzed 10/04 patient is scheduled for removal of tunneled dialysis catheter and planned to place a temporary dialysis catheter today. Patient will in the dialyzed today as per Nephrology (5) Wound of foot: Code(s): S91.309A - Unspecified open wound, unspecified foot, initial encounter Status: Acute Assessment and Plan: Right 4th toe necrotic appearing -Eschar/necrotic tissue on the right heel -patient also has deep tissue injury on the buttocks -appreciate wound care evaluation and recommendations (6) Atrial fibrillation/flutter: Status: Acute Assessment and Plan: A history of AFib, on apixaban at home -patient is had some coughing with drinking fluids according the -will obtain speech evaluation if he passes will restart apixaban Patient was on heparin infusion but is currently on hold due to planned surgical procedure (7) HTN (hypertension): Qualifiers: Hypertension type: primary hypertension Qualified Code(s): I10 - Essential (primary) hypertension Code(s): I10 - Essential (primary) hypertension Status: Chronic Assessment and Plan: currently hypotensive will hold all antihypertensive (8) Hypothyroidism: Code(s): E03.9 - Hypothyroidism, unspecified Status: Inactive Assessment and Plan: Since patient is NPO, switched levothyroxine to 50% of the dose IV (9) Generalized weakness: Code(s): R53.1 - Weakness Status: Acute Assessment and Plan: Most likely related to hypotension, diarrhea, hypovolemia -will require PT/OT once he is more stable -10/01: CT scan of the brain with no acute hemorrhage or large acute ischemic event. Possible old right subdural hygroma. 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 If not will place NG and start some tube feeding. Plan DVT prophylaxis: Heparin infusion is currently off Stress ulcer prophylaxis: Protonix Nutrition: NPO Code Status: Full code Critical Care Time Spent: 30 minutes Due to a high probability of clinically significant, life threatening deterioration, the patient required my highest level of preparedness to intervene emergently and I personally spent this critical care time directly and personally managing the patient. This critical care time included obtaining a history; examining the patient; pulse oximetry; ordering and review of studies; arranging urgent treatment with development of a management plan; evaluation of patient's response to treatment; frequent reassessment; and discussions with other providers. It was exclusive of separately billable procedures and treating other patients and teaching time. Please see Assessment and Plan section and the rest of the note for further information on patient assessment and treatment This dictation may have been done utilizing a voice recognition system. Attempts have been made to correct errors. However, there may be uncorrected grammatical, spelling, and recognitions errors present. Subjective Date/time seen: 10/04/25 Overnight events reviewed. Afebrile On room air Denies any new complaints. States he feels weak and tired. He also states that he is hungry and would like some food. Patient denies fever, chest pain, shortness of breath, cough, nausea vomiting, abdominal pain,, diarrhea, headache or constipation. All other systems were reviewed and were negative Other Vitals acceptable Review of Systems Review of Systems: All systems reviewed & are unremarkable except as noted in HPI and below Exam Narrative: General: Ill-appearing gentleman HEENT:? Pupils equal and reactive nares clear ischemia, moist oral mucosa Neck:? Supple Respiratory:? Clear to auscultation bilaterally, decreased at bases adequate air entry, no wheezing Cardiac:? S1-S2 normal, regular rate and rhythm, pacer spikes noted intermittently Abdomen:? Soft, nontender, nondistended, normoactive bowel sounds Extremities:? Right 4th toe looks necrotic, right foot has only 2 toes rest of the toe was amputated. Trace edema bilateral lower extremity, palpable pedal pulses Neuro:? Patient is weak, feeble voice, awake, oriented x3, answers to questions appropriately and follows simple commands in all extremities Skin:? Dry, poor skin turgor Psych:? Depressed affect, normal mentation Objective Data Vital Signs Vital Signs: Vital Signs - 24 hr 10/03/25 09:00 10/03/25 10:00 10/03/25 10:00 Temperature 36.9 C 37.0 C Pulse Rate 61 62 61 Respiratory Rate 23 H 24 H Blood Pressure 102/56 L 108/58 L Pulse Oximetry 99 99 Oxygen Delivery 10/03/25 11:00 10/03/25 12:00 10/03/25 12:00 Temperature 36.9 C Pulse Rate 62 62 Respiratory Rate 24 H Blood Pressure 109/56 L Pulse Oximetry 99 100 Oxygen Delivery Room Air 10/03/25 12:00 10/03/25 13:00 10/03/25 13:35 Temperature 37.1 C 37.2 C 37.3 C Pulse Rate 62 62 62 Respiratory Rate 17 23 H 21 H Blood Pressure 106/67 110/58 L 111/57 L Pulse Oximetry 100 100 100 Oxygen Delivery 10/03/25 13:46 10/03/25 14:00 10/03/25 14:00 Temperature 37.3 C Pulse Rate 61 61 Respiratory Rate 25 H Blood Pressure 111/57 L 111/58 L Pulse Oximetry 100 Oxygen Delivery 10/03/25 14:00 10/03/25 14:15 10/03/25 14:30 Temperature Pulse Rate 62 77 62 Respiratory Rate Blood Pressure 111/58 L 111/58 L 111/62 Pulse Oximetry Oxygen Delivery 10/03/25 14:45 10/03/25 15:00 10/03/25 15:00 Temperature 37.5 C Pulse Rate 62 62 61 Respiratory Rate 22 H Blood Pressure 115/62 121/65 121/65 Pulse Oximetry 100 Oxygen Delivery 10/03/25 15:15 10/03/25 15:30 10/03/25 15:45 Temperature Pulse Rate 62 63 Respiratory Rate Blood Pressure 115/61 123/62 120/60 Pulse Oximetry Oxygen Delivery 10/03/25 16:00 10/03/25 16:00 10/03/25 16:00 Temperature 37.7 C H Pulse Rate 67 63 Respiratory Rate 22 H Blood Pressure 123/62 Pulse Oximetry 100 100 Oxygen Delivery Room Air 10/03/25 16:00 10/03/25 16:15 10/03/25 16:30 Temperature Pulse Rate 64 64 Respiratory Rate Blood Pressure 123/62 119/59 L 122/62 Pulse Oximetry Oxygen Delivery 10/03/25 16:30 10/03/25 16:45 10/03/25 16:54 Temperature Pulse Rate 77 76 66 Respiratory Rate Blood Pressure 122/62 113/55 L 123/56 L Pulse Oximetry Oxygen Delivery 10/03/25 16:58 10/03/25 17:00 10/03/25 17:05 Temperature 37.7 C H 38.0 C H 37.9 C H Pulse Rate 67 66 Respiratory Rate 20 22 H Blood Pressure 115/67 122/59 L Pulse Oximetry 100 100 Oxygen Delivery 10/03/25 17:49 10/03/25 18:00 10/03/25 18:00 Temperature 38.1 C H 38.2 C H Pulse Rate 71 67 Respiratory Rate 24 H Blood Pressure 118/61 Pulse Oximetry 100 Oxygen Delivery 10/03/25 19:00 10/03/25 20:00 10/03/25 20:00 Temperature 38.7 C H 39.0 C H Pulse Rate 73 68 Respiratory Rate 20 25 H Blood Pressure 126/64 107/63 Pulse Oximetry 99 98 Oxygen Delivery Room Air 10/03/25 20:00 10/03/25 21:00 10/03/25 22:00 Temperature 39.1 C H 38.9 C H Pulse Rate 70 68 68 Respiratory Rate 16 22 H Blood Pressure 116/58 L 115/58 L Pulse Oximetry 98 98 Oxygen Delivery 10/03/25 22:00 10/03/25 22:37 10/03/25 23:00 Temperature 38.8 C H 38.8 C H Pulse Rate 68 67 Respiratory Rate 24 H Blood Pressure 108/57 L Pulse Oximetry 99 Oxygen Delivery 10/03/25 23:37 10/04/25 00:00 10/04/25 00:00 Temperature 38.8 C H 38.4 C H Pulse Rate 64 63 Respiratory Rate 27 H Blood Pressure 106/53 L Pulse Oximetry 97 Oxygen Delivery 10/04/25 00:00 10/04/25 01:00 10/04/25 02:00 Temperature 37.9 C H Pulse Rate 62 63 Respiratory Rate 26 H Blood Pressure 104/54 L Pulse Oximetry 98 Oxygen Delivery Room Air 10/04/25 02:00 10/04/25 03:00 10/04/25 04:00 Temperature 37.4 C 37.2 C 37.1 C Pulse Rate 63 64 62 Respiratory Rate 22 H 23 H 21 H Blood Pressure 105/62 110/62 112/62 Pulse Oximetry 97 97 99 Oxygen Delivery 10/04/25 04:00 10/04/25 04:00 10/04/25 05:00 Temperature 37.1 C Pulse Rate 61 61 Respiratory Rate 21 H Blood Pressure 112/60 Pulse Oximetry 99 Oxygen Delivery Room Air 10/04/25 06:00 10/04/25 06:00 10/04/25 07:00 Temperature 37.1 C 36.9 C Pulse Rate 63 62 60 Respiratory Rate 20 22 H Blood Pressure 104/60 111/57 L Pulse Oximetry 95 97 Oxygen Delivery Intake/Output Intake/Output: Intake & Output 10/01/25 10/02/25 10/03/25 10/04/25 23:59 23:59 23:59 23:59 Intake Total 902 742.9 302.8 110 Output Total 300 100 175 15 Balance 602 642.9 127.8 95 Meds/Results Medications: Active Medications Generic Name Dose Route Start Last Admin Trade Name Freq PRN Reason Stop Dose Admin Acetaminophen 650 mg 10/01/25 13:23 10/03/25 22:37 Acetaminophen 650 Mg Suppository RECTAL 650 mg Q6H PRN Administration Mild Pain (1-3) or Fever Dextrose 12.5 gm 10/01/25 13:04 Dextrose 50% 25 Gm/50 Ml Syringe IV PUSH PRN PRN Hypoglycemia Protocol Glucagon 1 mg 10/01/25 13:04 Glucagon For Inj 1 Mg Vial IM PRN PRN Hypoglycemia Protocol Glucose 15 gm 10/01/25 13:04 Glucose Oral Gel 15 Gm Of Glucse In 37.5 Gm Tube PO PRN PRN Hypoglycemia Protocol Heparin Sodium (Porcine) 7,500 units 10/01/25 14:23 Heparin Sodium 5,000 Units/Ml Vial IV PUSH PRN PRN aPTT less than 55 seconds Heparin Sodium (Porcine) 3,500 units 10/01/25 14:23 10/03/25 06:34 Heparin Sodium 5,000 Units/Ml Vial IV PUSH 3,500 units PRN PRN Administration aPTT 55 - 70 seconds Dextrose 1,000 mls @ 100 mls/hr 10/01/25 13:04 Dextrose 5% 1,000 Ml IVPB PRN PRN Hypoglycemia Protocol Heparin Sodium/Dextrose 25,000 units in 250 mls @ 0 mls/hr 10/01/25 14:25 10/03/25 19:30 Heparin Sodium/D5w 100 Units/Ml IV CONT Not Given On Hold: 10/03/25 17:05 .Q0M TORY Protocol 0 UNITS/HR Albumin Human 50 mls @ 999 mls/hr 10/03/25 08:47 Albutein IVPB 11/02/25 08:46 Q10M PRN HYPOTENSION Cefazolin Sodium 1 gm/ Sodium 50 mls @ 100 mls/hr 10/03/25 21:00 10/03/25 20:41 Chloride IVPB Infused Q24H TORY Infusion Potassium Chloride 100 mls @ 25 mls/hr 10/04/25 08:05 Kcl 40 Meq/Water 100 Ml IVPB 10/04/25 12:04 ONCE ONE Insulin Aspart 3 - 6 units 10/01/25 18:00 10/04/25 06:54 Insulin Aspart (*Bkc) 100 Units/Ml SUB-Q Not Given Q6HR TORY Protocol Levothyroxine Sodium 25 mcg 10/02/25 06:30 10/04/25 06:02 Levothyroxine Sodium Inj 100 Mcg/5 Ml Vial IV PUSH 25 mcg DAILY@0630 TORY Administration Pantoprazole Sodium 40 mg 10/02/25 09:00 10/03/25 08:26 Pantoprazole Sodium Iv 40 Mg Vial IV PUSH 40 mg QAM TORY Administration Sodium Chloride 10 ml 10/03/25 14:00 10/04/25 05:46 Central Line Flush IV PUSH 10 ml Q8HR TORY Administration Sodium Chloride 20 ml 10/03/25 11:21 Central Line Flush IV PUSH PRN PRN after blood draws Vancomycin HCl 1 each 10/01/25 15:02 Vancomycin For Hemodialysis IVPB PRN PRN Vancomycin Protocol Radiology Results: ITS Impressions Head CT 10/01/25 13:35 IMPRESSION: 1. No acute hemorrhage or large acute ischemic event. 2. Possible old right subdural hygroma. 3. Chronic appearing right-sided basal ganglia infarction. Chest/Abdomen/Pelvis CT 10/01/25 13:38 IMPRESSION: 1. Directed noncontrast exam demonstrates cardiomegaly with patchy areas of groundglass opacification which may represent vascular congestion and early decompensation. Enlarged pulmonary arteries may represent pulmonary arterial hypertension. Atypical inflammatory or infectious process could have a similar appearance. 2. Several lung nodules concerning for metastatic malignant process. Hematogenous infectious process could potentially have a similar appearance. 3. Mildly distended gallbladder but no biliary ductal dilatation seen. Correlate with right upper quadrant ultrasound for optimal evaluation. 4. Possible mild urinary bladder wall thickening. Correlate with urinalysis. 5. 4.4 cm ascending thoracic aortic aneurysm Chest X-Ray 10/02/25 08:00 IMPRESSION: 1. Possible small area of consolidation or atelectasis left lung base. Labs Labs: Laboratory Results - last 24 hr 10/03/25 10/03/25 10/03/25 12:12 18:41 23:42 WBC RBC Hgb Hct MCV MCH MCHC RDW Plt Count MPV Immature Gran % (Auto) Neut % (Auto) Lymph % (Auto) [place] % (Auto) Eos % (Auto) Baso % (Auto) Lymph # (Auto) [place] # (Auto) Eos # (Auto) Baso # (Auto) Abs Immat Gran (auto) Absolute Neuts (auto) Absolute Nucleated RBC Band Neutrophils % Nucleated RBC % Platelet Estimate % Immature Plt Fraction Hypochromasia Poikilocytosis Microcytosis Macrocytosis Target Cells [place] Cells Schistocytes Sodium Potassium Chloride Carbon Dioxide Anion Gap BUN Creatinine Estim Creat Clear Calc Estimated GFR Glucose POC Capillary Glucose 137 H 94 120 H Calcium Phosphorus Magnesium Total Bilirubin AST ALT Alkaline Phosphatase Total Protein Albumin 10/04/25 05:50 WBC 11.3 H RBC 3.19 L Hgb 8.7 L Hct 28.1 L MCV 88.1 MCH 27.3 MCHC 31.0 L RDW 18.6 H Plt Count 80 L MPV 12.7 H Immature Gran % (Auto) 2.8 H Neut % (Auto) 80.6 H Lymph % (Auto) 12.2 L [place] % (Auto) 3.6 Eos % (Auto) 0.5 Baso % (Auto) 0.3 Lymph # (Auto) 1.38 [place] # (Auto) 0.4 Eos # (Auto) 0.1 Baso # (Auto) 0.0 Abs Immat Gran (auto) 0.31 H Absolute Neuts (auto) 9.1 H Absolute Nucleated RBC 0.100 H Band Neutrophils % Not Reportable Nucleated RBC % 0.9 H Platelet Estimate Decreased % Immature Plt Fraction 8.1 Hypochromasia 2+ Poikilocytosis 1+ Microcytosis 1+ Macrocytosis 1+ Target Cells 1+ [place] Cells 1+ Schistocytes None seen Sodium 142 Potassium 2.9 L Chloride 101 Carbon Dioxide 21 L Anion Gap 20 H BUN 66 H D Creatinine 4.80 H Estim Creat Clear Calc 17 Estimated GFR 12 L Glucose 157 H POC Capillary Glucose Calcium 8.5 Phosphorus 2.6 Magnesium 2.3 Total Bilirubin 2.5 H AST 41 ALT 23 Alkaline Phosphatase 229 H Total Protein 7.0 Albumin 3.6 Quality VTE Prophylaxis VTE prophylaxis: pharmacologic ordered
[2025-10-04] MEDS: KCL 40 MEQ/WATER 100 ML 100 ML 25 ML IVPB (08:42)
[2025-10-04] MEDS: PANTOPRAZOLE SODIUM IV 40 MG VIAL IV PUSH (08:42)
--- NOTE | 2025-10-04 10:02 | P.PNINF_ITS ---
Progress Note: A&P Assessment and Plan (1) Staphylococcus aureus bacteremia with sepsis: Code(s): A41.01 - Sepsis due to Methicillin susceptible Staphylococcus aureus Status: Acute (2) Endocarditis of tricuspid valve: Code(s): I07.9 - Rheumatic tricuspid valve disease, unspecified Status: Acute (3) CLABSI (central line-associated bloodstream infection): Code(s): T80.211A - Bloodstream infection due to central venous catheter, initial encounter Status: Acute (4) End-stage renal disease on hemodialysis: Code(s): N18.6 - End stage renal disease; Z99.2 - Dependence on renal dialysis Status: Acute (5) AICD (automatic cardioverter/defibrillator) present: Code(s): Z95.810 - Presence of automatic (implantable) cardiac defibrillator Status: Acute (6) Pacemaker: Code(s): Z95.0 - Presence of cardiac pacemaker Status: Acute Plan 1. MR Staphylococcus aureus bacteremia. 2. Concern for tricuspid valve endocarditis based on TTE. 3. Presence of hemodialysis PermCath as well as AICD/ pacemaker. 4. Acute sepsis with shock on presentation secondary to numbers 1 and 2, above. improved and now off of norepinephrine. 5. Acute on chronic CHF on presentation secondary to missed hemodialysis. Doubt active pneumonia. Septic embolization a possibility. Plan: -- suspect this MRSA bacteremia with tricuspid valve endocarditis originated from PermCath CLABSI. AICD/ pacemaker present but TTE makes no mention of lead vegetations. -- repeat blood cultures pending. -- with identification of MRSA will continue with vancomycin but discontinue cefazolin. -- removal of PermCath plan for today. -- rad also planned to further evaluate cardiac device leads. -- for tricuspid valve MRSA endocarditis without lead involvement, and with removal of PermCath, and assuming negative follow-up blood cultures, anticipate continuing vancomycin for 42 days from 1st true negative blood culture. -- updated who is at bedside. Patient was seen via video telehealth consultation with the assistance of staff. Chart, data, and patient independently reviewed. Patient was located at [facility] while I was located in my [place] office. Received verbal consent from patient. Subjective Date/time seen: 10/04/25 10:02 Interval history: 10/04/2025: Fever to 102.4 yesterday evening but afebrile since 1:00 a.m.. Patient seen just prior to planned removal of PermCath. White blood cell count 11.3. Total bilirubin 2.5 with normal transaminases. Some elevation in alkaline phosphatase. Blood culture 10/03: Pending Blood culture 10/01: Positive for Staph aureus in 4/4 bottles. Review of Systems Review of Systems: All systems reviewed & are unremarkable except as noted in HPI and below Exam Narrative: Patient seen in the preop area in anticipation of PermCath removal. at bedside. No respiratory difficulty. Hemodialysis catheter site without inflammation. No inflammation at pacemaker/ AICD bed site. Abdomen nondistended. No evidence of rash. Objective Data Vital Signs Vital Signs: Vital Signs - 24 hr 10/03/25 11:00 10/03/25 12:00 10/03/25 12:00 Temperature 98.5 F Pulse Rate 62 62 Respiratory Rate 24 H Blood Pressure 109/56 L Pulse Oximetry 99 100 Oxygen Delivery Room Air 10/03/25 12:00 10/03/25 13:00 10/03/25 13:35 Temperature 98.7 F 99.0 F 99.2 F Pulse Rate 62 62 62 Respiratory Rate 17 23 H 21 H Blood Pressure 106/67 110/58 L 111/57 L Pulse Oximetry 100 100 100 Oxygen Delivery 10/03/25 13:46 10/03/25 14:00 10/03/25 14:00 Temperature 99.2 F Pulse Rate 61 61 Respiratory Rate 25 H Blood Pressure 111/57 L 111/58 L Pulse Oximetry 100 Oxygen Delivery 10/03/25 14:00 10/03/25 14:15 10/03/25 14:30 Temperature Pulse Rate 62 77 62 Respiratory Rate Blood Pressure 111/58 L 111/58 L 111/62 Pulse Oximetry Oxygen Delivery 10/03/25 14:45 10/03/25 15:00 10/03/25 15:00 Temperature 99.5 F Pulse Rate 62 62 61 Respiratory Rate 22 H Blood Pressure 115/62 121/65 121/65 Pulse Oximetry 100 Oxygen Delivery 10/03/25 15:15 10/03/25 15:30 10/03/25 15:45 Temperature Pulse Rate 62 63 Respiratory Rate Blood Pressure 115/61 123/62 120/60 Pulse Oximetry Oxygen Delivery 10/03/25 16:00 10/03/25 16:00 10/03/25 16:00 Temperature 99.8 F H Pulse Rate 67 63 Respiratory Rate 22 H Blood Pressure 123/62 Pulse Oximetry 100 100 Oxygen Delivery Room Air 10/03/25 16:00 10/03/25 16:15 10/03/25 16:30 Temperature Pulse Rate 64 64 Respiratory Rate Blood Pressure 123/62 119/59 L 122/62 Pulse Oximetry Oxygen Delivery 10/03/25 16:30 10/03/25 16:45 10/03/25 16:54 Temperature Pulse Rate 77 76 66 Respiratory Rate Blood Pressure 122/62 113/55 L 123/56 L Pulse Oximetry Oxygen Delivery 10/03/25 16:58 10/03/25 17:00 10/03/25 17:05 Temperature 99.9 F H 100.4 F H 100.2 F H Pulse Rate 67 66 Respiratory Rate 20 22 H Blood Pressure 115/67 122/59 L Pulse Oximetry 100 100 Oxygen Delivery 10/03/25 17:49 10/03/25 18:00 10/03/25 18:00 Temperature 100.6 F H 100.7 F H Pulse Rate 71 67 Respiratory Rate 24 H Blood Pressure 118/61 Pulse Oximetry 100 Oxygen Delivery 10/03/25 19:00 10/03/25 20:00 10/03/25 20:00 Temperature 101.6 F H 102.2 F H Pulse Rate 73 68 Respiratory Rate 20 25 H Blood Pressure 126/64 107/63 Pulse Oximetry 99 98 Oxygen Delivery Room Air 10/03/25 20:00 10/03/25 21:00 10/03/25 22:00 Temperature 102.4 F H 102.1 F H Pulse Rate 70 68 68 Respiratory Rate 16 22 H Blood Pressure 116/58 L 115/58 L Pulse Oximetry 98 98 Oxygen Delivery 10/03/25 22:00 10/03/25 22:37 10/03/25 23:00 Temperature 102 F H 101.8 F H Pulse Rate 68 67 Respiratory Rate 24 H Blood Pressure 108/57 L Pulse Oximetry 99 Oxygen Delivery 10/03/25 23:37 10/04/25 00:00 10/04/25 00:00 Temperature 101.8 F H 101.1 F H Pulse Rate 64 63 Respiratory Rate 27 H Blood Pressure 106/53 L Pulse Oximetry 97 Oxygen Delivery 10/04/25 00:00 10/04/25 01:00 10/04/25 02:00 Temperature 100.2 F H Pulse Rate 62 63 Respiratory Rate 26 H Blood Pressure 104/54 L Pulse Oximetry 98 Oxygen Delivery Room Air 10/04/25 02:00 10/04/25 03:00 10/04/25 04:00 Temperature 99.3 F 98.9 F 98.8 F Pulse Rate 63 64 62 Respiratory Rate 22 H 23 H 21 H Blood Pressure 105/62 110/62 112/62 Pulse Oximetry 97 97 99 Oxygen Delivery 10/04/25 04:00 10/04/25 04:00 10/04/25 05:00 Temperature 98.8 F Pulse Rate 61 61 Respiratory Rate 21 H Blood Pressure 112/60 Pulse Oximetry 99 Oxygen Delivery Room Air 10/04/25 06:00 10/04/25 06:00 10/04/25 07:00 Temperature 98.7 F 98.5 F Pulse Rate 63 62 60 Respiratory Rate 20 22 H Blood Pressure 104/60 111/57 L Pulse Oximetry 95 97 Oxygen Delivery 10/04/25 08:00 10/04/25 08:00 10/04/25 08:00 Temperature 98.6 F Pulse Rate 62 64 Respiratory Rate 20 Blood Pressure 110/64 Pulse Oximetry 98 98 Oxygen Delivery Room Air 10/04/25 09:00 Temperature 98.7 F Pulse Rate 64 Respiratory Rate 22 H Blood Pressure 115/58 L Pulse Oximetry 98 Oxygen Delivery Intake/Output Intake/Output: Intake & Output 10/01/25 10/02/25 10/03/25 10/04/25 23:59 23:59 23:59 23:59 Intake Total 902 742.9 302.8 110 Output Total 300 100 175 15 Balance 602 642.9 127.8 95 Meds/Results Medications: Active Medications Generic Name Dose Route Start Last Admin Trade Name Freq PRN Reason Stop Dose Admin Acetaminophen 650 mg 10/01/25 13:23 10/03/25 22:37 Acetaminophen 650 Mg Suppository RECTAL 650 mg Q6H PRN Administration Mild Pain (1-3) or Fever Dextrose 12.5 gm 10/01/25 13:04 Dextrose 50% 25 Gm/50 Ml Syringe IV PUSH PRN PRN Hypoglycemia Protocol Glucagon 1 mg 10/01/25 13:04 Glucagon For Inj 1 Mg Vial IM PRN PRN Hypoglycemia Protocol Glucose 15 gm 10/01/25 13:04 Glucose Oral Gel 15 Gm Of Glucse In 37.5 Gm Tube PO PRN PRN Hypoglycemia Protocol Heparin Sodium (Porcine) 7,500 units 10/01/25 14:23 Heparin Sodium 5,000 Units/Ml Vial IV PUSH On Hold: 10/04/25 08:48 PRN PRN aPTT less than 55 seconds Heparin Sodium (Porcine) 3,500 units 10/01/25 14:23 10/03/25 06:34 Heparin Sodium 5,000 Units/Ml Vial IV PUSH 3,500 units On Hold: 10/04/25 08:48 PRN PRN Administration aPTT 55 - 70 seconds Dextrose 1,000 mls @ 100 mls/hr 10/01/25 13:04 Dextrose 5% 1,000 Ml IVPB PRN PRN Hypoglycemia Protocol Heparin Sodium/Dextrose 25,000 units in 250 mls @ 0 mls/hr 10/01/25 14:25 10/03/25 19:30 Heparin Sodium/D5w 100 Units/Ml IV CONT Not Given On Hold: 10/03/25 17:05 .Q0M TORY Protocol 0 UNITS/HR Albumin Human 50 mls @ 999 mls/hr 10/03/25 08:47 Albutein IVPB 11/02/25 08:46 Q10M PRN HYPOTENSION Cefazolin Sodium 1 gm/ Sodium 50 mls @ 100 mls/hr 10/03/25 21:00 10/03/25 20:41 Chloride IVPB Infused Q24H TORY Infusion Potassium Chloride 100 mls @ 25 mls/hr 10/04/25 08:05 10/04/25 08:42 Kcl 40 Meq/Water 100 Ml IVPB 10/04/25 12:04 25 mls/hr ONCE ONE Administration Insulin Aspart 3 - 6 units 10/01/25 18:00 10/04/25 06:54 Insulin Aspart (*Bkc) 100 Units/Ml SUB-Q Not Given Q6HR TORY Protocol Levothyroxine Sodium 25 mcg 10/02/25 06:30 10/04/25 06:02 Levothyroxine Sodium Inj 100 Mcg/5 Ml Vial IV PUSH 25 mcg DAILY@0630 TORY Administration Pantoprazole Sodium 40 mg 10/02/25 09:00 10/04/25 08:42 Pantoprazole Sodium Iv 40 Mg Vial IV PUSH 40 mg QAM TORY Administration Sodium Chloride 10 ml 10/03/25 14:00 10/04/25 05:46 Central Line Flush IV PUSH 10 ml Q8HR TORY Administration Sodium Chloride 20 ml 10/03/25 11:21 Central Line Flush IV PUSH PRN PRN after blood draws Vancomycin HCl 1 each 10/01/25 15:02 Vancomycin For Hemodialysis IVPB PRN PRN Vancomycin Protocol Radiology Results: ITS Impressions Head CT 10/01/25 13:35 IMPRESSION: 1. No acute hemorrhage or large acute ischemic event. 2. Possible old right subdural hygroma. 3. Chronic appearing right-sided basal ganglia infarction. Chest/Abdomen/Pelvis CT 10/01/25 13:38 IMPRESSION: 1. Directed noncontrast exam demonstrates cardiomegaly with patchy areas of groundglass opacification which may represent vascular congestion and early decompensation. Enlarged pulmonary arteries may represent pulmonary arterial hypertension. Atypical inflammatory or infectious process could have a similar appearance. 2. Several lung nodules concerning for metastatic malignant process. Hematogenous infectious process could potentially have a similar appearance. 3. Mildly distended gallbladder but no biliary ductal dilatation seen. Correlate with right upper quadrant ultrasound for optimal evaluation. 4. Possible mild urinary bladder wall thickening. Correlate with urinalysis. 5. 4.4 cm ascending thoracic aortic aneurysm Chest X-Ray 10/02/25 08:00 IMPRESSION: 1. Possible small area of consolidation or atelectasis left lung base. Labs Labs: Laboratory Results - last 24 hr 10/03/25 10/03/25 10/03/25 12:12 18:41 23:42 WBC RBC Hgb Hct MCV MCH MCHC RDW Plt Count MPV Immature Gran % (Auto) Neut % (Auto) Lymph % (Auto) [place] % (Auto) Eos % (Auto) Baso % (Auto) Lymph # (Auto) [place] # (Auto) Eos # (Auto) Baso # (Auto) Abs Immat Gran (auto) Absolute Neuts (auto) Absolute Nucleated RBC Band Neutrophils % Nucleated RBC % Platelet Estimate % Immature Plt Fraction Hypochromasia Poikilocytosis Microcytosis Macrocytosis Target Cells Ynes Cells Schistocytes Sodium Potassium Chloride Carbon Dioxide Anion Gap BUN Creatinine Estim Creat Clear Calc Estimated GFR Glucose POC Capillary Glucose 137 H 94 120 H Calcium Phosphorus Magnesium Total Bilirubin AST ALT Alkaline Phosphatase Total Protein Albumin 10/04/25 05:50 WBC 11.3 H RBC 3.19 L Hgb 8.7 L Hct 28.1 L MCV 88.1 MCH 27.3 MCHC 31.0 L RDW 18.6 H Plt Count 80 L MPV 12.7 H Immature Gran % (Auto) 2.8 H Neut % (Auto) 80.6 H Lymph % (Auto) 12.2 L [place] % (Auto) 3.6 Eos % (Auto) 0.5 Baso % (Auto) 0.3 Lymph # (Auto) 1.38 [place] # (Auto) 0.4 Eos # (Auto) 0.1 Baso # (Auto) 0.0 Abs Immat Gran (auto) 0.31 H Absolute Neuts (auto) 9.1 H Absolute Nucleated RBC 0.100 H Band Neutrophils % Not Reportable Nucleated RBC % 0.9 H Platelet Estimate Decreased % Immature Plt Fraction 8.1 Hypochromasia 2+ Poikilocytosis 1+ Microcytosis 1+ Macrocytosis 1+ Target Cells 1+ Ynes Cells 1+ Schistocytes None seen Sodium 142 Potassium 2.9 L Chloride 101 Carbon Dioxide 21 L Anion Gap 20 H BUN 66 H D Creatinine 4.80 H Estim Creat Clear Calc 17 Estimated GFR 12 L Glucose 157 H POC Capillary Glucose Calcium 8.5 Phosphorus 2.6 Magnesium 2.3 Total Bilirubin 2.5 H AST 41 ALT 23 Alkaline Phosphatase 229 H Total Protein 7.0 Albumin 3.6
--- NOTE | 2025-10-04 10:37 | P.PNIM_ITS ---
Progress Note: A&P Assessment and Plan (1) End-stage renal disease on hemodialysis: Code(s): N18.6 - End stage renal disease; Z99.2 - Dependence on renal dialysis Status: Acute (2) Generalized weakness: Code(s): R53.1 - Weakness Status: Acute (3) CLABSI (central line-associated bloodstream infection): Code(s): T80.211A - Bloodstream infection due to central venous catheter, initial encounter Status: Acute Plan Staph bacteremia associated with tunneled hemodialysis catheter Acute metabolic encephalopathy -imaging there are bilateral ground-glass opacities, no cough, less likely atypical pneumonia being the culprit for the infection. we have staph bacteremia -patient presented generalized weakness, diarrhea, poor p.o. intake -right femoral triple-lumen catheter placed for possible vasopressors -monitoring in ICU -antibiotics: IV vancomycin/Zosyn-> IV vanc and cefazolin -blood cultures with Staphylococcus aureus, sensitivities pending -LETY ordered to evaluate endocarditis -chest x-ray neg, head CT possible right subdural hygroma -chronic diabetic ulcers on foot, continue local wound care -acute metabolic encephalopathy, improving -keep NPO until COMMERCIAL LOAN PROCESSOR eval ESRD on HD -has a tunneled right IJ HD catheter -renal failure has progressed ESRD -appreciate legal editor consultation -still responding to Bumex and metolazone? Incidental finding -nodule suggesting metastatic malignant process -will need outpatient monitoring of lung nodules Chronic conditions- NPO until COMMERCIAL LOAN PROCESSOR eval -atrial fibrillation: Amiodarone, rate control metoprolol, anticoagulation Eliquis -type 2 diabetes: Sliding scale insulin, Accu-Cheks q.6 hours, hypoglycemia protocol. At home on glargine 25 units twice daily -hypothyroidism: Levothyroxine -BPH: flomax -chronic right foot wound: continue local wound care -anemia of CKD: Given EPO by legal editor -hyperlipidemia: Aspirin/plavix, statin. Will have to evaluate if patient should be on triple therapy -supplements: B complex -GERD: Pepcid -muscle spasms: cyclobenzaprine Diet: NPO for LETY DVT prophylaxis: Heparin drip GI prophylaxis: IV Protonix Code status: Full code Disposition: ICU, home >2 days Time Spent With Patient Time: 35 minutes Subjective Date/time seen: 10/04/25 10:37 Interval history: Patient seen and examined. He has no new complaints. There was concern for tricuspid endocarditis and Staph bacteremia. Plan for LETY to further evaluate for endocarditis. Plan to remove tunneled hemodialysis catheter. Hopefully his pacemaker leads are okay. Patient denies fever, chills, nausea vomiting diarrhea. Review of Systems Review of Systems: 10 point ROS complete, negative other th an what is specified in HPI. All systems reviewed & are unremarkable except as noted in HPI and below Exam Narrative: - GENERAL: Pleasant male in no acute di stress - EYES: EOMI. Anicteric. - HENT: Moist mucous membranes. - LUNGS: Clear to auscultation bilateral ly, no wheezing or rhonchi - CARDIOVASCULAR: Regular rate and rhyth m. tunneled right HD cath - ABDOMEN: Soft, non-tender and non-dist ended. - EXTREMITIES: no edema. Peripheral puls es 2+. RLE femoral TLC - NEUROLOGIC: No focal neurological defi cits. CN II-XII grossly intact. - PSYCHIATRIC: Awake, Alert and oriented . Appropriate mood, flat affect. Poor insight Objective Data Vital Signs Vital Signs: Vital Signs - 24 hr 10/03/25 11:00 10/03/25 12:00 10/03/25 12:00 Temperature 36.9 C Pulse Rate 62 62 Respiratory Rate 24 H Blood Pressure 109/56 L Pulse Oximetry 99 100 Oxygen Delivery Room Air 10/03/25 12:00 10/03/25 13:00 10/03/25 13:35 Temperature 37.1 C 37.2 C 37.3 C Pulse Rate 62 62 62 Respiratory Rate 17 23 H 21 H Blood Pressure 106/67 110/58 L 111/57 L Pulse Oximetry 100 100 100 Oxygen Delivery 10/03/25 13:46 10/03/25 14:00 10/03/25 14:00 Temperature 37.3 C Pulse Rate 61 61 Respiratory Rate 25 H Blood Pressure 111/57 L 111/58 L Pulse Oximetry 100 Oxygen Delivery 10/03/25 14:00 10/03/25 14:15 10/03/25 14:30 Temperature Pulse Rate 62 77 62 Respiratory Rate Blood Pressure 111/58 L 111/58 L 111/62 Pulse Oximetry Oxygen Delivery 10/03/25 14:45 10/03/25 15:00 10/03/25 15:00 Temperature 37.5 C Pulse Rate 62 62 61 Respiratory Rate 22 H Blood Pressure 115/62 121/65 121/65 Pulse Oximetry 100 Oxygen Delivery 10/03/25 15:15 10/03/25 15:30 10/03/25 15:45 Temperature Pulse Rate 62 63 Respiratory Rate Blood Pressure 115/61 123/62 120/60 Pulse Oximetry Oxygen Delivery 10/03/25 16:00 10/03/25 16:00 10/03/25 16:00 Temperature 37.7 C H Pulse Rate 67 63 Respiratory Rate 22 H Blood Pressure 123/62 Pulse Oximetry 100 100 Oxygen Delivery Room Air 10/03/25 16:00 10/03/25 16:15 10/03/25 16:30 Temperature Pulse Rate 64 64 Respiratory Rate Blood Pressure 123/62 119/59 L 122/62 Pulse Oximetry Oxygen Delivery 10/03/25 16:30 10/03/25 16:45 10/03/25 16:54 Temperature Pulse Rate 77 76 66 Respiratory Rate Blood Pressure 122/62 113/55 L 123/56 L Pulse Oximetry Oxygen Delivery 10/03/25 16:58 10/03/25 17:00 10/03/25 17:05 Temperature 37.7 C H 38.0 C H 37.9 C H Pulse Rate 67 66 Respiratory Rate 20 22 H Blood Pressure 115/67 122/59 L Pulse Oximetry 100 100 Oxygen Delivery 10/03/25 17:49 10/03/25 18:00 10/03/25 18:00 Temperature 38.1 C H 38.2 C H Pulse Rate 71 67 Respiratory Rate 24 H Blood Pressure 118/61 Pulse Oximetry 100 Oxygen Delivery 10/03/25 19:00 10/03/25 20:00 10/03/25 20:00 Temperature 38.7 C H 39.0 C H Pulse Rate 73 68 Respiratory Rate 20 25 H Blood Pressure 126/64 107/63 Pulse Oximetry 99 98 Oxygen Delivery Room Air 10/03/25 20:00 10/03/25 21:00 10/03/25 22:00 Temperature 39.1 C H 38.9 C H Pulse Rate 70 68 68 Respiratory Rate 16 22 H Blood Pressure 116/58 L 115/58 L Pulse Oximetry 98 98 Oxygen Delivery 10/03/25 22:00 10/03/25 22:37 10/03/25 23:00 Temperature 38.8 C H 38.8 C H Pulse Rate 68 67 Respiratory Rate 24 H Blood Pressure 108/57 L Pulse Oximetry 99 Oxygen Delivery 10/03/25 23:37 10/04/25 00:00 10/04/25 00:00 Temperature 38.8 C H 38.4 C H Pulse Rate 64 63 Respiratory Rate 27 H Blood Pressure 106/53 L Pulse Oximetry 97 Oxygen Delivery 10/04/25 00:00 10/04/25 01:00 10/04/25 02:00 Temperature 37.9 C H Pulse Rate 62 63 Respiratory Rate 26 H Blood Pressure 104/54 L Pulse Oximetry 98 Oxygen Delivery Room Air 10/04/25 02:00 10/04/25 03:00 10/04/25 04:00 Temperature 37.4 C 37.2 C 37.1 C Pulse Rate 63 64 62 Respiratory Rate 22 H 23 H 21 H Blood Pressure 105/62 110/62 112/62 Pulse Oximetry 97 97 99 Oxygen Delivery 10/04/25 04:00 10/04/25 04:00 10/04/25 05:00 Temperature 37.1 C Pulse Rate 61 61 Respiratory Rate 21 H Blood Pressure 112/60 Pulse Oximetry 99 Oxygen Delivery Room Air 10/04/25 06:00 10/04/25 06:00 10/04/25 07:00 Temperature 37.1 C 36.9 C Pulse Rate 63 62 60 Respiratory Rate 20 22 H Blood Pressure 104/60 111/57 L Pulse Oximetry 95 97 Oxygen Delivery 10/04/25 08:00 10/04/25 08:00 10/04/25 08:00 Temperature 37.0 C Pulse Rate 62 64 Respiratory Rate 20 Blood Pressure 110/64 Pulse Oximetry 98 98 Oxygen Delivery Room Air 10/04/25 09:00 Temperature 37.1 C Pulse Rate 64 Respiratory Rate 22 H Blood Pressure 115/58 L Pulse Oximetry 98 Oxygen Delivery Intake/Output Intake/Output: Intake & Output 10/01/25 10/02/25 10/03/25 10/04/25 23:59 23:59 23:59 23:59 Intake Total 902 742.9 302.8 110 Output Total 300 100 175 15 Balance 602 642.9 127.8 95 Meds/Results Medications: Active Medications Generic Name Dose Route Start Last Admin Trade Name Freq PRN Reason Stop Dose Admin Acetaminophen 650 mg 10/01/25 13:23 10/03/25 22:37 Acetaminophen 650 Mg Suppository RECTAL 650 mg Q6H PRN Administration Mild Pain (1-3) or Fever Dextrose 12.5 gm 10/01/25 13:04 Dextrose 50% 25 Gm/50 Ml Syringe IV PUSH PRN PRN Hypoglycemia Protocol Glucagon 1 mg 10/01/25 13:04 Glucagon For Inj 1 Mg Vial IM PRN PRN Hypoglycemia Protocol Glucose 15 gm 10/01/25 13:04 Glucose Oral Gel 15 Gm Of Glucse In 37.5 Gm Tube PO PRN PRN Hypoglycemia Protocol Heparin Sodium (Porcine) 7,500 units 10/01/25 14:23 Heparin Sodium 5,000 Units/Ml Vial IV PUSH On Hold: 10/04/25 08:48 PRN PRN aPTT less than 55 seconds Heparin Sodium (Porcine) 3,500 units 10/01/25 14:23 10/03/25 06:34 Heparin Sodium 5,000 Units/Ml Vial IV PUSH 3,500 units On Hold: 10/04/25 08:48 PRN PRN Administration aPTT 55 - 70 seconds Dextrose 1,000 mls @ 100 mls/hr 10/01/25 13:04 Dextrose 5% 1,000 Ml IVPB PRN PRN Hypoglycemia Protocol Heparin Sodium/Dextrose 25,000 units in 250 mls @ 0 mls/hr 10/01/25 14:25 10/03/25 19:30 Heparin Sodium/D5w 100 Units/Ml IV CONT Not Given On Hold: 10/03/25 17:05 .Q0M [facility] Protocol 0 UNITS/HR Albumin Human 50 mls @ 999 mls/hr 10/03/25 08:47 Albutein IVPB 11/02/25 08:46 Q10M PRN HYPOTENSION Cefazolin Sodium 1 gm/ Sodium 50 mls @ 100 mls/hr 10/03/25 21:00 10/03/25 20:41 Chloride IVPB Infused Q24H [facility] Infusion Potassium Chloride 100 mls @ 25 mls/hr 10/04/25 08:05 10/04/25 08:42 Kcl 40 Meq/Water 100 Ml IVPB 10/04/25 12:04 25 mls/hr ONCE ONE Administration Insulin Aspart 3 - 6 units 10/01/25 18:00 10/04/25 06:54 Insulin Aspart (*Bkc) 100 Units/Ml SUB-Q Not Given Q6HR [facility] Protocol Levothyroxine Sodium 25 mcg 10/02/25 06:30 10/04/25 06:02 Levothyroxine Sodium Inj 100 Mcg/5 Ml Vial IV PUSH 25 mcg DAILY@0630 [facility] Administration Pantoprazole Sodium 40 mg 10/02/25 09:00 10/04/25 08:42 Pantoprazole Sodium Iv 40 Mg Vial IV PUSH 40 mg QAM [facility] Administration Sodium Chloride 10 ml 10/03/25 14:00 10/04/25 05:46 Central Line Flush IV PUSH 10 ml Q8HR [facility] Administration Sodium Chloride 20 ml 10/03/25 11:21 Central Line Flush IV PUSH PRN PRN after blood draws Vancomycin HCl 1 each 10/01/25 15:02 Vancomycin For Hemodialysis IVPB PRN PRN Vancomycin Protocol Radiology Results: ITS Impressions Head CT 10/01/25 13:35 IMPRESSION: 1. No acute hemorrhage or large acute ischemic event. 2. Possible old right subdural hygroma. 3. Chronic appearing right-sided basal ganglia infarction. Chest/Abdomen/Pelvis CT 10/01/25 13:38 IMPRESSION: 1. Directed noncontrast exam demonstrates cardiomegaly with patchy areas of groundglass opacification which may represent vascular congestion and early dec ompensation. Enlarged pulmonary arteries may represent pulmonary arterial hypertension. Atypical inflammatory or infectious process could have a similar appearance. 2. Several lung nodules concerning for metastatic malignant process. Hematogenous infectious process could potentially have a similar appearance. 3. Mildly distended gallbladder but no biliary ductal dilatation seen. Correlate with right upper quadrant ultrasound for optimal evaluation. 4. Possible mild urinary bladder wall thickening. Correlate with urinalysis. 5. 4.4 cm ascending thoracic aortic aneurysm Chest X-Ray 10/02/25 08:00 IMPRESSION: 1. Possible small area of consolidation or atelectasis left lung base. Labs Labs: Laboratory Results - last 24 hr 10/03/25 10/03/25 10/03/25 12:12 18:41 23:42 WBC RBC Hgb Hct MCV MCH MCHC RDW Plt Count MPV Immature Gran % (Auto) Neut % (Auto) Lymph % (Auto) Gem % (Auto) Eos % (Auto) Baso % (Auto) Lymph # (Auto) Gem # (Auto) Eos # (Auto) Baso # (Auto) Abs Immat Gran (auto) Absolute Neuts (auto) Absolute Nucleated RBC Band Neutrophils % Nucleated RBC % Platelet Estimate % Immature Plt Fraction Hypochromasia Poikilocytosis Microcytosis Macrocytosis Target Cells Ynes Cells Schistocytes Sodium Potassium Chloride Carbon Dioxide Anion Gap BUN Creatinine Estim Creat Clear Calc Estimated GFR Glucose POC Capillary Glucose 137 H 94 120 H Calcium Phosphorus Magnesium Total Bilirubin AST ALT Alkaline Phosphatase Total Protein Albumin 10/04/25 05:50 WBC 11.3 H RBC 3.19 L Hgb 8.7 L Hct 28.1 L MCV 88.1 MCH 27.3 MCHC 31.0 L RDW 18.6 H Plt Count 80 L MPV 12.7 H Immature Gran % (Auto) 2.8 H Neut % (Auto) 80.6 H Lymph % (Auto) 12.2 L Gem % (Auto) 3.6 Eos % (Auto) 0.5 Baso % (Auto) 0.3 Lymph # (Auto) 1.38 Gem # (Auto) 0.4 Eos # (Auto) 0.1 Baso # (Auto) 0.0 Abs Immat Gran (auto) 0.31 H Absolute Neuts (auto) 9.1 H Absolute Nucleated RBC 0.100 H Band Neutrophils % Not Reportable Nucleated RBC % 0.9 H Platelet Estimate Decreased % Immature Plt Fraction 8.1 Hypochromasia 2+ Poikilocytosis 1+ Microcytosis 1+ Macrocytosis 1+ Target Cells 1+ Ynes Cells 1+ Schistocytes None seen Sodium 142 Potassium 2.9 L Chloride 101 Carbon Dioxide 21 L Anion Gap 20 H BUN 66 H D Creatinine 4.80 H Estim Creat Clear Calc 17 Estimated GFR 12 L Glucose 157 H POC Capillary Glucose Calcium 8.5 Phosphorus 2.6 Magnesium 2.3 Total Bilirubin 2.5 H AST 41 ALT 23 Alkaline Phosphatase 229 H Total Protein 7.0 Albumin 3.6
--- NOTE | 2025-10-04 11:24 | PCNFU ---
Nutrition Follow-Up Complete: Severe Protein Calorie Malnutrition as related to inadequate protein energy intake with increased protein energy needs in setting of chronic disease as evidenced by minimal oral intake for > 1-2 months; significant weight loss of 18 ibs in 1 month; moderate subcutaneous fat loss (orbital fat pads) and moderate muscle wasting (temporalis). Meet estimated nutritional needs. _ not progressing currently. Continue same goal Goal: Pt current nutrition is NPO. Nutrition recommendation: Tube feeding recommendations if needed; Nepro @ goal rate 45 ml/h to provide 1782 kcal, 80 g protein, 720 ml free water. Flush 30 ml q 4 h. Last recorded weight is 114.7 kg. Bowel Motility: +4 BM 10/03 Labs Re viewed: Hgb 8.7, Hct 28.1, K+ 2.9, BUN 66, Cre 4.8, Glu 157 Meds Noted: Insulin, protonix, KCL, synthroid Skin: Multiple pressure injuries noted, see wound report Additional Notes: NPO because of failed bedside swallow eval. Discussed with MD. Pt to have MBSS, may be today or Tuesday. Repeat bedside in the meantime, continue to work with speech. May start tube feeding with NG: Nepro @ 45 ml/h goal rate. to provide 1782 kcal, 80 g protein, 720 ml free water. Flush 30 ml q 4 h. Will monitor weight, labs, skin, diet orders, meds every 3 days.
[2025-10-04 12:32] LABS: INR 2.3; Prothrombin Time 24.5 Seconds (11.1-14.7)
[2025-10-04 12:33] LABS: Partial Thromboplastin Time 40.7 Seconds (22.3-36.8)
--- NOTE | 2025-10-04 12:47 | PM.CNCAR ---
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 Clearly the proximity of his RV lead to this is a concern. Since he is going to be under general anesthesia this afternoon I will try to take advantage of that opportunity to more safely perform transesophageal echo in the operating room to determine if there is infective vegetations visible on his ventricular lead. Obviously infective involvement of the lead will result in the need to recommend extraction of the device. Bryan Russell MD [facility] History of Present Illness History of Present Illness Consult date/time: 10/04/25 12:47 Reason For Visit: weakness/renal failure Narrative: This is a 70-year-old man I am being asked to see in the ICU today at the request of the hospitalist and beauty sales advisor because of desire to have a transesophageal echocardiogram performed. The patient is unknown to me prior to this incident. He has history of atrial fibrillation and has a chronically implanted pacemaker device. He is also a renal failure patient on hemodialysis. He was brought to this hospital yesterday, feeling poorly he had a temperature of a 100? according to the chart his workup has included a blood cultures that are positive for Staph aureus. A trans thoracic echocardiogram done yesterday shows evidence of infective vegetations involving his tricuspid valve. Infectious disease consultants have seen the patient and have made a reasonable recommendation to perform an esophageal echo to determine if there is evidence of involvement of his pacemaker lead. For this reason I am seeing him in consultation. The patient is established with another cardiology practice which is on staff at this hospital but they have declined to come see their patient today. He has no other specific cardiac complaints most of the history is provided by his who is fortunately in the room and is a very good historian. Because of the staph infection indwelling catheter is going to be removed in the operating room this afternoon under general anesthesia. We are making preparations/plans to perform an esophageal ECHO in the OR while the patient is under anesthesia. Review of Systems Constitutional: Constitutional: Reports as per HPI and Reports chills Eyes: Eyes: Reports no additional eye complaints ENT: Reports system reviewed and no additional complaints, except as documented Cardiovascular: Cardiovascular: Reports no additional cardiovascular complaints Respiratory: Respiratory: Reports no additional respiratory complaints Gastrointestinal: Gastrointestinal: Reports no additional gastrointestinal complaints Musculoskeletal: Musculoskeletal: Reports no additional musculoskeletal complaints Integumentary/Breasts: Skin/Breast: Reports system reviewed and no additional complaints, except as docu Neurologic: Reports system reviewed and no additional complaints, except as documented Endocrine: Endocrine: Reports no additional endocrine complaints Hematologic/Lymphatic: Hematologic/Lymphatic: Reports no additional hematologic/lymphatic complaints Allergic/Immunologic: Allergic/Immunologic: Reports no additional allergic/immunologic complaints [facility] Past Medical History Medical History Atrial fibrillation/flutter CKD (chronic kidney disease) Stage 3 Pressure ulcer of right foot 2021 BPH (benign prostatic hyperplasia) HTN (hypertension) Congestive heart failure Hypothyroidism Diabetes mellitus type 2 in obese Surgical History Surgical History S/P foot surgery, right 2021 Family History Family History Unknown Diabetes mellitus Social History Social History Social History: Smoking status: Never smoker Alcohol intake: never Substance use: never Substance use type: does not use Do You Feel Safe in your Home?: Yes Lack of Transportation: No Lack of Food: Never True Current Housing: I Have Housing Concerned About Future Housing: No Difficulty Paying Gas/Electric Bills: No Difficulty Paying for Meds: No Currently Unemployed: No Education: High School Diploma/GED Difficulty w/ Childcare or Family Care: No Living arrangements: with family Additional living arrangements comments: Gender identity (if verbalized by the patient): Male Spiritual care concerns: No Meds Home Medications and Allergies Home Medications ?Medication ?Instructions ?Recorded ?Confirmed ?Type atorvastatin 20 mg tablet 20 mg PO HS 06/30/23 10/01/25 History amiodarone 200 mg tablet (Pacerone) 200 mg PO Q12HR #60 tabs 07/01/23 10/01/25 Rx aspirin 81 mg chewable tablet 81 mg PO DAILY@0800 #30 tabs 07/01/23 10/01/25 Rx (Children's Aspirin) cyclobenzaprine 10 mg tablet 5 mg (1/2 x 10 mg) PO Q8H PRN 07/01/23 10/01/25 Rx Muscle Spasm #30 tabs famotidine 20 mg tablet 20 mg PO DAILY #30 tabs 07/01/23 10/01/25 Rx levothyroxine 50 mcg tablet 50 mcg PO DAILY@0630 #30 tabs 07/01/23 10/01/25 Rx (Synthroid) metoprolol tartrate 25 mg tablet 25 mg PO Q12HR #60 tabs 07/01/23 10/01/25 Rx tamsulosin 0.4 mg capsule 0.4 mg PO QAM #30 caps 07/01/23 10/01/25 Rx albuterol 90 mcg/actuation aerosol 90 mcg inhalation .q4hr PRN 02/14/25 10/01/25 History inhaler shortness of breath apixaban 5 mg tablet (Eliquis) 5 mg PO BID 02/14/25 10/01/25 History bumetanide 1 mg tablet 1 mg PO BID 02/14/25 10/01/25 History insulin glargine 100 unit/mL (3 25 unit subcut .q12hr 02/14/25 10/01/25 History mL) subcutaneous pen (Basaglar KwikPen U-100 Insulin) insulin lispro 100 unit/mL 10 unit subcut TIDWM 02/14/25 10/01/25 History subcutaneous pen (Humalog KwikPen (U-100) Insulin) metolazone 2.5 mg tablet 2.5 mg PO QMWF 02/14/25 10/01/25 History acetaminophen 325 mg tablet 650 mg PO Q4H PRN Pain Rated 5 Or 04/12/25 10/01/25 History Less clopidogrel 75 mg tablet 75 mg PO DAILY 04/12/25 10/01/25 History B complex 11-folic acid 1 mg-C 100 1 tablet PO DAILY 10/01/25 10/01/25 History mg-biotin 300 mcg-zinc 50 mg tablet (Dialyvite) acetaminophen 500 mg tablet 500 mg PO Q6H PRN fever or pain 10/01/25 10/01/25 History Allergies Allergy/AdvReac Type Severity Reaction Status Date / Time No Known Allergies Allergy Verified 10/01/25 11:39 Vital Signs Vital Signs - 24 hr 10/03/25 13:00 10/03/25 13:35 10/03/25 13:46 Temperature 37.2 C 37.3 C Pulse Rate 62 62 Respiratory Rate 23 H 21 H Blood Pressure 110/58 L 111/57 L 111/57 L Pulse Oximetry 100 100 Oxygen Delivery 10/03/25 14:00 10/03/25 14:00 10/03/25 14:00 Temperature 37.3 C Pulse Rate 61 61 62 Respiratory Rate 25 H Blood Pressure 111/58 L 111/58 L Pulse Oximetry 100 Oxygen Delivery 10/03/25 14:15 10/03/25 14:30 10/03/25 14:45 Temperature Pulse Rate 77 62 62 Respiratory Rate Blood Pressure 111/58 L 111/62 115/62 Pulse Oximetry Oxygen Delivery 10/03/25 15:00 10/03/25 15:00 10/03/25 15:15 Temperature 37.5 C Pulse Rate 62 61 62 Respiratory Rate 22 H Blood Pressure 121/65 121/65 115/61 Pulse Oximetry 100 Oxygen Delivery 10/03/25 15:30 10/03/25 15:45 10/03/25 16:00 Temperature Pulse Rate 63 Respiratory Rate Blood Pressure 123/62 120/60 Pulse Oximetry 100 Oxygen Delivery Room Air 10/03/25 16:00 10/03/25 16:00 10/03/25 16:00 Temperature 37.7 C H Pulse Rate 67 63 64 Respiratory Rate 22 H Blood Pressure 123/62 123/62 Pulse Oximetry 100 Oxygen Delivery 10/03/25 16:15 10/03/25 16:30 10/03/25 16:30 Temperature Pulse Rate 64 77 Respiratory Rate Blood Pressure 119/59 L 122/62 122/62 Pulse Oximetry Oxygen Delivery 10/03/25 16:45 10/03/25 16:54 10/03/25 16:58 Temperature 37.7 C H Pulse Rate 76 66 Respiratory Rate Blood Pressure 113/55 L 123/56 L Pulse Oximetry Oxygen Delivery 10/03/25 17:00 10/03/25 17:05 10/03/25 17:49 Temperature 38.0 C H 37.9 C H 38.1 C H Pulse Rate 67 66 Respiratory Rate 20 22 H Blood Pressure 115/67 122/59 L Pulse Oximetry 100 100 Oxygen Delivery 10/03/25 18:00 10/03/25 18:00 10/03/25 19:00 Temperature 38.2 C H 38.7 C H Pulse Rate 71 67 73 Respiratory Rate 24 H 20 Blood Pressure 118/61 126/64 Pulse Oximetry 100 99 Oxygen Delivery 10/03/25 20:00 10/03/25 20:00 10/03/25 20:00 Temperature 39.0 C H Pulse Rate 68 70 Respiratory Rate 25 H Blood Pressure 107/63 Pulse Oximetry 98 Oxygen Delivery Room Air 10/03/25 21:00 10/03/25 22:00 10/03/25 22:00 Temperature 39.1 C H 38.9 C H Pulse Rate 68 68 68 Respiratory Rate 16 22 H Blood Pressure 116/58 L 115/58 L Pulse Oximetry 98 98 Oxygen Delivery 10/03/25 22:37 10/03/25 23:00 10/03/25 23:37 Temperature 38.8 C H 38.8 C H 38.8 C H Pulse Rate 67 Respiratory Rate 24 H Blood Pressure 108/57 L Pulse Oximetry 99 Oxygen Delivery 10/04/25 00:00 10/04/25 00:00 10/04/25 00:00 Temperature 38.4 C H Pulse Rate 64 63 Respiratory Rate 27 H Blood Pressure 106/53 L Pulse Oximetry 97 Oxygen Delivery Room Air 10/04/25 01:00 10/04/25 02:00 10/04/25 02:00 Temperature 37.9 C H 37.4 C Pulse Rate 62 63 63 Respiratory Rate 26 H 22 H Blood Pressure 104/54 L 105/62 Pulse Oximetry 98 97 Oxygen Delivery 10/04/25 03:00 10/04/25 04:00 10/04/25 04:00 Temperature 37.2 C 37.1 C Pulse Rate 64 62 Respiratory Rate 23 H 21 H Blood Pressure 110/62 112/62 Pulse Oximetry 97 99 Oxygen Delivery Room Air 10/04/25 04:00 10/04/25 05:00 10/04/25 06:00 Temperature 37.1 C 37.1 C Pulse Rate 61 61 63 Respiratory Rate 21 H 20 Blood Pressure 112/60 104/60 Pulse Oximetry 99 95 Oxygen Delivery 10/04/25 06:00 10/04/25 07:00 10/04/25 08:00 Temperature 36.9 C 37.0 C Pulse Rate 62 60 62 Respiratory Rate 22 H 20 Blood Pressure 111/57 L 110/64 Pulse Oximetry 97 98 Oxygen Delivery 10/04/25 08:00 10/04/25 08:00 10/04/25 09:00 Temperature 37.1 C Pulse Rate 64 64 Respiratory Rate 22 H Blood Pressure 115/58 L Pulse Oximetry 98 98 Oxygen Delivery Room Air 10/04/25 10:00 10/04/25 10:00 10/04/25 11:00 Temperature 37.2 C 37.2 C Pulse Rate 61 62 62 Respiratory Rate 20 20 Blood Pressure 111/60 112/63 Pulse Oximetry 99 99 Oxygen Delivery Exam Const: General: comfortable and no acute distress HENMT: Mouth: Yes moist mucous membranes Eyes: Sclera: sclerae normal Neck: Neck: supple and no JVD Resp: Effort & Inspection: normal respiratory effort Auscultation: clear to auscultation bilaterally Cardio: Rate: regular rate Rhythm: regular rhythm Other: No audible cardiac murmur, PMI difficult to palpate GI: GI Palp: Yes Soft to palpation Auscultation: normal bowel sounds Urinary Catheter: Urinary Catheter: patent and draining Skin: General skin exam: normal color Neuro: Other: Patient does respond but is lethargic Extrem: Other: Adequate perfusion Results Labs and Meds 10/04/25 05:50 10/04/25 05:50 Lab results: Cardiac Enzymes 10/04/25 Range/Units 05:50 AST 41 (17-59) U/L Coagulation 10/04/25 Range/Units 12:08 PT 24.5 H D (11.1-14.7) Seconds APTT 40.7 H (22.3-36.8) Seconds CBC 10/04/25 Range/Units 05:50 WBC 11.3 H (4.5-10.0) K/mm3 RBC 3.19 L (4.6-6.20) M/mm3 Hgb 8.7 L (14.0-18.0) g/dL Hct 28.1 L (42.0-52.0) % Plt Count 80 L (150-375) k/mm3 Lymph # (Auto) 1.38 (0.9-3.2) K/mm3 [place] # (Auto) 0.4 (0.1-0.6) K/mm3 Eos # (Auto) 0.1 (0-0.3) K/mm3 Baso # (Auto) 0.0 (0.0-0.1) K/mm3 Comprehensive Metabolic Panel 10/04/25 Range/Units 05:50 Sodium 142 (137-145) mmol/L Potassium 2.9 L (3.4-5.0) mmol/L Chloride 101 (98-107) mmol/L Carbon Dioxide 21 L (22-30) mmol/L BUN 66 H D (9-20) mg/dL Creatinine 4.80 H (0.7-1.3) mg/dL Glucose 157 H (65-110) mg/dL Calcium 8.5 (8.4-10.2) mg/dL AST 41 (17-59) U/L ALT 23 (6-50) U/L Alkaline Phosphatase 229 H (38-126) U/L Total Protein 7.0 (6.3-8.2) g/dL Albumin 3.6 (3.5-5.1) g/dL Intake and Output 10/03/25 10/04/25 10/04/25 23:59 07:59 15:59 Intake Total 150 110 Output Total 125 15 Balance 25 95 Intake: IV 150 50 Piperacillin/Tazobactam Sod 2. 100 50 25 gm In Sodium Chloride 0.9% IV 50 ml @ 100 mls/hr IVPB Q8HR [facility] Rx#:[id number] ceFAZolin 1 gm In Sodium 50 Chloride 0.9% IV 50 ml @ 100 mls/hr IVPB Q24H [facility] Rx#: [id number] Oral 60 Output: Catheter Urine 125 15 Urethral Catheter 125 15 Net UF Removed 0 Other: Number of Bowel Movements Today 4 Patient Weight 10/04/25 23:59 Weight 114.7 kg
--- NOTE | 2025-10-04 13:12 | WPDHPUPDATE1 ---
History and Physical Update Update Date/Time: 10/04/25 13:12 History and Physical has been reviewed, including an updated exam of the patient. There are NO changes in the patient's condition. Risks, benefits, and alternatives have been discussed and questions answered. Patient agrees to proceed with procedure.
--- NOTE | 2025-10-04 13:14 | WPDANESEPPF ---
Anes - Initial Pre Proc Eval Procedure: Operation Date: 10/04/25 13:30 Proposed Procedures p Removal of Tunnelled Central Venous Catheter, Placement of Non Tunnelled Catheter Under Fluoroscopy - Blake Hopkins MD Date/Time: 10/04/25 13:14 Surgeon: Melissa Vergara MD Pre Op Diagnosis: weakness/renal failure Patient Data Age: 70 Gender: M Height: 1.85 m Weight: 114.7 kg Last Vital Signs Temp 37.2 C 10/04/25 11:00 Pulse 62 10/04/25 11:00 Resp 20 10/04/25 11:00 BP 112/63 10/04/25 11:00 Pulse Ox 99 10/04/25 11:00 O2 Del Method Room Air 10/04/25 08:00 O2 Flow Rate 2 10/02/25 12:00 Allergies Allergy/AdvReac Type Severity Reaction Status Date / Time No Known Allergies Allergy Verified 10/01/25 11:39 Home Medications ?Medication ?Instructions ?Recorded ?Confirmed ?Type atorvastatin 20 mg tablet 20 mg PO HS 06/30/23 10/01/25 History amiodarone 200 mg tablet (Pacerone) 200 mg PO Q12HR #60 tabs 07/01/23 10/01/25 Rx aspirin 81 mg chewable tablet 81 mg PO DAILY@0800 #30 tabs 07/01/23 10/01/25 Rx (Children's Aspirin) cyclobenzaprine 10 mg tablet 5 mg (1/2 x 10 mg) PO Q8H PRN 07/01/23 10/01/25 Rx Muscle Spasm #30 tabs famotidine 20 mg tablet 20 mg PO DAILY #30 tabs 07/01/23 10/01/25 Rx levothyroxine 50 mcg tablet 50 mcg PO DAILY@0630 #30 tabs 07/01/23 10/01/25 Rx (Synthroid) metoprolol tartrate 25 mg tablet 25 mg PO Q12HR #60 tabs 07/01/23 10/01/25 Rx tamsulosin 0.4 mg capsule 0.4 mg PO QAM #30 caps 07/01/23 10/01/25 Rx albuterol 90 mcg/actuation aerosol 90 mcg inhalation .q4hr PRN 02/14/25 10/01/25 History inhaler shortness of breath apixaban 5 mg tablet (Eliquis) 5 mg PO BID 02/14/25 10/01/25 History bumetanide 1 mg tablet 1 mg PO BID 02/14/25 10/01/25 History insulin glargine 100 unit/mL (3 25 unit subcut .q12hr 02/14/25 10/01/25 History mL) subcutaneous pen (Basaglar KwikPen U-100 Insulin) insulin lispro 100 unit/mL 10 unit subcut TIDWM 02/14/25 10/01/25 History subcutaneous pen (Humalog KwikPen (U-100) Insulin) metolazone 2.5 mg tablet 2.5 mg PO QMWF 02/14/25 10/01/25 History acetaminophen 325 mg tablet 650 mg PO Q4H PRN Pain Rated 5 Or 04/12/25 10/01/25 History Less clopidogrel 75 mg tablet 75 mg PO DAILY 04/12/25 10/01/25 History B complex 11-folic acid 1 mg-C 100 1 tablet PO DAILY 10/01/25 10/01/25 History mg-biotin 300 mcg-zinc 50 mg tablet (Dialyvite) acetaminophen 500 mg tablet 500 mg PO Q6H PRN fever or pain 10/01/25 10/01/25 History Laboratory Tests 10/03/25 10/03/25 10/04/25 18:41 23:42 05:50 WBC 11.3 H K/mm3 (4.5-10.0) RBC 3.19 L M/mm3 (4.6-6.20) Hgb 8.7 L g/dL (14.0-18.0) Hct 28.1 L % (42.0-52.0) MCV 88.1 fl (80-100) MCH 27.3 pg (26-34) MCHC 31.0 L g/dl (32-36) RDW 18.6 H % (11.5-14.5) Plt Count 80 L k/mm3 (150-375) MPV 12.7 H fl (7.4-10.4) Immature Gran % (Auto) 2.8 H % (0-0.5) Neut % (Auto) 80.6 H % (45.5-73.1) Lymph % (Auto) 12.2 L % (18.3-44.2) [place] % (Auto) 3.6 % (2.6-8.5) Eos % (Auto) 0.5 % (0-4.4) Baso % (Auto) 0.3 % (0.2-1.2) Lymph # (Auto) 1.38 K/mm3 (0.9-3.2) [place] # (Auto) 0.4 K/mm3 (0.1-0.6) Eos # (Auto) 0.1 K/mm3 (0-0.3) Baso # (Auto) 0.0 K/mm3 (0.0-0.1) Abs Immat Gran (auto) 0.31 H K/mm3 (0.00-0.031) Absolute Neuts (auto) 9.1 H K/mm3 (1.3-6.7) Absolute Nucleated RBC 0.100 H K/mm3 (0.0-0.012) Band Neutrophils % Not Reportable Nucleated RBC % 0.9 H % (0.0-0.2) Platelet Estimate Decreased (Adequate) % Immature Plt Fraction 8.1 % (0.9-11.2) Hypochromasia 2+ Poikilocytosis 1+ Microcytosis 1+ (NORMAL) Macrocytosis 1+ (NORMAL) Target Cells 1+ Cisco Cells 1+ Schistocytes None seen PT INR APTT Sodium 142 mmol/L (137-145) Potassium 2.9 L mmol/L (3.4-5.0) Chloride 101 mmol/L (98-107) Carbon Dioxide 21 L mmol/L (22-30) Anion Gap 20 H mmol/L (4-12) BUN 66 H D mg/dL (9-20) Creatinine 4.80 H mg/dL (0.7-1.3) Estim Creat Clear Calc 17 ml/min Estimated GFR 12 L (59 - ) Glucose 157 H mg/dL (65-110) POC Capillary Glucose 94 mg/dl 120 H mg/dl (65-105) (65-105) Calcium 8.5 mg/dL (8.4-10.2) Phosphorus 2.6 mg/dL (2.5-4.5) Magnesium 2.3 mg/dL (1.6-2.3) Total Bilirubin 2.5 H mg/dL (0.2-1.3) AST 41 U/L (17-59) ALT 23 U/L (6-50) Alkaline Phosphatase 229 H U/L (38-126) Total Protein 7.0 g/dL (6.3-8.2) Albumin 3.6 g/dL (3.5-5.1) 10/04/25 10/04/25 12:08 12:17 WBC RBC Hgb Hct MCV MCH MCHC RDW Plt Count MPV Immature Gran % (Auto) Neut % (Auto) Lymph % (Auto) [place] % (Auto) Eos % (Auto) Baso % (Auto) Lymph # (Auto) [place] # (Auto) Eos # (Auto) Baso # (Auto) Abs Immat Gran (auto) Absolute Neuts (auto) Absolute Nucleated RBC Band Neutrophils % Nucleated RBC % Platelet Estimate % Immature Plt Fraction Hypochromasia Poikilocytosis Microcytosis Macrocytosis Target Cells Ynes Cells Schistocytes PT 24.5 H D Seconds (11.1-14.7) INR 2.3 APTT 40.7 H Seconds (22.3-36.8) Sodium Potassium Chloride Carbon Dioxide Anion Gap BUN Creatinine Estim Creat Clear Calc Estimated GFR Glucose POC Capillary Glucose 155 H mg/dl (65-105) Calcium Phosphorus Magnesium Total Bilirubin AST ALT Alkaline Phosphatase Total Protein Albumin Patient hx anesthesia problems: none Family hx anesthesia problems: none Results Review: All pre-operative results and documents have been reviewed as part of the pre-operative evaluation. COUNTS INCLUDE 234 BEDS AT THE [facility] Past Medical History Medical History Atrial fibrillation/flutter CKD (chronic kidney disease) Stage 3 Pressure ulcer of right foot 2021 BPH (benign prostatic hyperplasia) HTN (hypertension) Congestive heart failure Hypothyroidism Diabetes mellitus type 2 in obese Surgical History Surgical History S/P foot surgery, right 2021 Family History Family History Unknown Diabetes mellitus Social History Social History Social History: Smoking status: Never smoker Alcohol intake: never Substance use: never Substance use type: does not use Do You Feel Safe in your Home?: Yes Lack of Transportation: No Lack of Food: Never True Current Housing: I Have Housing Concerned About Future Housing: No Difficulty Paying Gas/Electric Bills: No Difficulty Paying for Meds: No Currently Unemployed: No Education: High School Diploma/GED Difficulty w/ Childcare or Family Care: No Living arrangements: with family Additional living arrangements comments: Gender identity (if verbalized by the patient): Male Spiritual care concerns: No Anes - Eval Final PreProcedure Day of Procedure 10/04/25 13:14 Patient weight: obese Heart: regular rate and rhythm (paced at 60) Lungs: decreased breath sounds Airway: Mallampati scale class III and special considerations poor dentition Neurological: confused Last oral intake: >/= 8 hours ASA classification: IV Emergent: no Anesthetic plan: proceed Anesthesia type and monitoring: general ETT and standard monitoring Results Review: All pre-operative results and documents have been reviewed as part of the pre-operative evaluation. Informed Consent: The patient's anesthetic plan and its attendant risks including , ME, CVA, prolonged intubation and bleeding and benefits were discussed with the patient/family/POA. Questions were solicited and answers provided to the satisfaction of the patient/family/POA.
[2025-10-04] MEDS: SODIUM CHLORIDE 0.9% IV 500 ML 30 ML IV CONT (13:30)
[2025-10-04] MEDS: HEPARIN SODIUM, PORCINE 10,000 UNITS/10 ML VIAL 3000 UNITS IRRIGATION (13:51)
[2025-10-04] MEDS: LIDO 1%/EPINEPHRINE 1:100,000 50 ML VIAL (13:51)
--- NOTE | 2025-10-04 14:27 | WPDCARDPROC ---
Cardiac Cath Procedure Note Date of procedure:: 10/04/25 Performing physician:: Bryan Russell MD Indication:: Staph aureus sepsis Chronically implanted pacemaker Tricuspid valve endocarditis Brief clinical history:: This is a 70-year-old man with a chronically implanted pacemaker device, history of paroxysmal atrial fibrillation he was admitted hospital with fever and weakness he was found to have Staph aureus bacteremia and transthoracic echocardiogram has demonstrated infective vegetations associated with his tricuspid valve. Kit was requested to determine if there is infective involvement of his pacemaker leads. Procedure Procedure performed:: Transesophageal echo cardio Sedation/Medication given:: Patient sedated per the Anesthesia Service in the OR. See their note for separately dictated sedation detail Estimated blood loss:: No blood loss Procedure note:: Patient was in the OR room 5. Where he had a ready been sedated with endotracheal in LA shell anesthetic established. He had the KIT probe lubricated and then advanced easily into the hypopharynx and easily into the esophagus. Multiplane transesophageal echo was performed easily and without complication. Following completion of imaging the KIT probe was removed and the patient was continued in the OR for extraction of a in falling vascular access catheter because of the sepsis. Findings:: The left atrium is modestly enlarged. The mitral valve leaflets are unremarkable in appearance there is a minimal amount of central MR. No infective material seen on the mitral valve. The aortic valve is a normal trileaflet structure which appears to be thin and pliable there is no infective vegetation seen on the aortic valve was a trivial central jet of AI seen. No evidence of a perivalvular abscess. The left ventricle appears to be of normal size and contracts adequately. The right-sided chambers are of normal size. The pulmonic valve is normal in appearance. There is a very small amount of pulmonic regurgitation seen. No infective vegetations are seen. The tricuspid valve has obvious infective vegetation material associated with the primarily on the septal leaflet. There are several lobes of this vegetation. The largest appears to be about 1.3-1.5 cm in diameter. There is also on careful examination extension of this vegetation onto the ventricular lead of his pacemaker device. This portion of vegetation measures 0.9 cm in diameter. Mild tricuspid regurgitation is noted. The interatrial septum is unremarkable in appearance the thoracic aorta ascending arch and descending aorta are unremarkable in appearance. Conclusion:: Transesophageal echocardiogram demonstrates infective vegetation material on the tricuspid valve which was noted on the transthoracic study. We can also see involvement of the right ventricular pacemaker lead as described above. Byran Russell MD FACC
--- NOTE | 2025-10-04 15:38 | W.PM.PROC2 ---
Procedure Note - Detailed Date of Procedure 10/04/25 Pre-op Diagnosis MRSA endocarditis with bacteremia, end-stage renal disease on hemodialysis Post-op Diagnosis Same Procedure Performed Removal right subclavian tunneled central venous catheter, placement left internal jugular central venous catheter with side port for hemodialysis under fluoroscopy and using ultrasound Surgeon Blake Hopkins MD Anesthesiology Tech [facility]anquita Smith [facility] Anesthesia General (LMA) and Local Indications Patient has MRSA positive blood cultures and was found on echocardiogram to have a tricuspid valve vegetation. Transesophageal echo done just prior to this procedure showed vegetation and contamination of the patient's pacemaker leads which will eventually need to be removed. His existing right subclavian tunneled central venous catheter for dialysis is also likely contaminated and a source. This catheter is being removed and a new, non tunneled, central venous catheter with side port is placed for continued dialysis along with additional treatments. Findings Tip of the catheter in the distal superior vena cava and right atrial junction Description of Procedure Patient was taken to the operating room and given general anesthesia per LMA. The existing right subclavian tunneled catheter site was sprayed and prepped. The left neck was likewise prep. Both sides of the chest and neck were draped in sterile fashion. Attention was turned 1st to the existing catheter. Placing some traction on the catheter I was able to locate the cough which was about 3 cm cephalad to the exit site of the catheter. I infiltrated local and made an incision over the cuff. I then dissected the cuff free from the surrounding subcutaneous tissues and divided the fibrous sheath surrounding the catheter tubing so that the catheter would be free to move. I pulled a loop of catheter up into the wound. I divided the catheter just proximal to the cuff. Holding pressure over the lower neck where the catheter inserted into the subclavian vein, I removed the distal part of the catheter, then proximal portion of the catheter. There was back bleeding noted so I had to hold pressure on subclavian entrance site for 5-6 minutes before the back bleeding stopped. Once this back bleeding stopped, I sutured closed the tunnel created by the catheter and leading up to the subclavian vein. I then closed the skin. Both were closed with 4-0 Vicryl suture. The skin closure was dressed with Exofin surgical adhesive. A Band-Aid was placed over the exit site of the catheter. The surgical team then changed their outer gloves and moved to the left side of the patient and the left neck. I used fluoroscopy and marked the approximate location I would need to reach with the catheter. The 24 cm dual lumen catheter with pigtail IV port was chosen. I then used ultrasound and found the left internal jugular vein. I cannulated the left internal jugular vein under ultrasound and passed a guidewire into the left brachial cephalic vein. A guidewire was getting hung up here and I then used fluoroscopy and was able to eventually advance the wire down beyond the superior vena cava. The pacemaker wires made identification of intravascular structures in the superior vena cava more difficult but I was able to follow the path of the guidewire. Serial dilators were then passed over the guidewire and the 24 cm dual-lumen Pierce catheter was then passed over the guidewire which exited through the IV pigtail. I was able to advance the catheter into what appeared to be the distal SVC, right atrial junction. Again it was difficult to tell exactly where we were as the pacemaker wires tended to overlie the catheter and obscure the view. I positioned it in the area I thought was most appropriate. Both ports aspirated blood and flushed easily. The IV pigtail port also flushed and aspirated easily. All 3 ports were flushed with heparin and final flush was placed for the 2 dialysis ports. They were clamped and capped. Local was infiltrated in the neck where the catheter flange was located. I then sutured the catheter in place with 3-0 nylon suture. The exit site of the catheter was dressed with 2 x 2 ooze and Tegaderm. The patient was then awakened and taken to recovery in good condition. Sponge and needle counts were correct x2. I reviewed the postprocedure chest x-ray on the portable machine and it was still difficult to see the exact end of the catheter. Otherwise all looked quite good. Implants 24 cm non tunneled Pierce catheter with IV side port Estimated Blood Loss -5 Drains No Packing No Pathology None sent Complications None Condition Critical Disposition PACU [facility] Billing Surgery - Charge Forward: Surgery Billing (Removal right subclavian tunneled central venous catheter, placement left internal jugular non tunneled central venous catheter using ultrasound and fluoroscopy.)
--- NOTE | 2025-10-04 17:01 | P.PNNP_ITS ---
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 on [employer]/dialysis ~ a month ago with acute hospitalization at [facility] * apparently missed treatments on 09/28 and 10/01 * on T/T/S schedule at [facility] * s/p cautious IVF resuscitation along with IV albumin * HD tomorrow * follow electrolytes, volume status, and clearance (2) Sepsis: Qualifiers: Sepsis acute organ dysfunction status: unspecified Sepsis type: sepsis due to unspecified organism Qualified Code(s): A41.9 - Sepsis, unspecified organism Code(s): A41.9 - Sepsis, unspecified organism Status: Acute Assessment and Plan: * hypotension noted in ER and on admission to medical floor * 90 - 100ss systolic in the ER (despite known history of HTN) * 80s systolic on transfer to the floor * associated with generalized weakness * suspect multifactorial etiology... * volume depletion: - diarrhea - poor oral intake - diuretic therapy * ongoing BP medications prior to admission * early infection: - elevated lactic acid (has normalized) - toe wounds * IVF resuscitation within the limits of ESRD status along with IV albumin * follow culture data (blood and urine): * blood cultures (10/01) positive - Methicillin Resistant Staph Aureus * urine cultures with no growth * see #3 and #4 * CT imaging (10/01) noted: * cardiomegaly with patchy areas of groundglass opacification which may represent vascular congestion and early decompensation * enlarged pulmonary arteries may represent pulmonary arterial hypertension...atypical inflammatory or infectious process could have a similar appearance * several lung nodules concerning for metastatic malignant process. Hematogenous infectious process could potentially have a similar appearance * mildly distended gallbladder but no biliary ductal dilatation seen. Correlate with right upper quadrant ultrasound for optimal evaluation * ossible mild urinary bladder wall thickening...correlate with urinalysis * 4.4 cm ascending thoracic aortic aneurysm * follow trend of hemodynamics (3) Endocarditis: Code(s): I38 - Endocarditis, valve unspecified Status: Acute Assessment and Plan: * as noted by TTE (on 10/03): * left ventricular ejection fraction is visually estimated to be 35 - 40% * linear artifact in right ventricle suggestive of catheter(s), pacemaker lead(s), or ICD lead(s) * right ventricle is dilated with mildly reduced systolic function * there is evidence of endocarditis measuring 1.6 x 1.1cm along the septal leaflet of the tricuspid valve * mild tricuspid regurgitation * Cardiology and Infectious Disease following * LETY (on 10/04) reviewed: * normal left ventricular size with preserved systolic function * normal mitral valve with trivial amount of central MR * normal aortic valve with trivial amount of central AI * normal pulmonic valve * anatomically normal tricuspid valve with multilobe vegetation associated with the septal leaflet - largest portion measures 1.5 cm in diameter - this vegetation extends to the ventricular lead of the pacemaker - vegetation here is 0.9 cm diameter (4) Bacteremia: Code(s): R78.81 - Bacteremia Status: Acute Assessment and Plan: * blood cultures (on 10/01) with MRSA * repeat blood cultures pending * already on antibiotics * several potential sources: * tunneled HD catheter * pacemaker + leads * PVD/toes * other(?) * s/p removal of tunneled HD catheter and placement of temporary HD catheter by Surgery (on 10/04) * Infectious Disease following with ongoing recommendations noted (5) Wound of foot: Code(s): S91.309A - Unspecified open wound, unspecified foot, initial encounter Status: Acute Assessment and Plan: * right 4th toe with necrotic appearance * wound care following * on antibiotics already (see #2/3/4) (6) Atrial fibrillation/flutter: Status: Acute Assessment and Plan: * known history * Eliquis on hold * heparin gtt on hold for procedures today * however, INR elevated (7) HTN (hypertension): Qualifiers: Hypertension type: primary hypertension Qualified Code(s): I10 - Essential (primary) hypertension Code(s): I10 - Essential (primary) hypertension Status: Chronic Assessment and Plan: * known history * however, hypotension noted on admission * BP medications on hold * follow trend of hemodynamics (8) Peripheral vascular disease: Code(s): I73.9 - Peripheral vascular disease, unspecified Status: Chronic Assessment and Plan: * known history and quite severe * s/p mutiple interventions in LEs * s/p toe amputations as noted (9) Diabetes mellitus type 2 in obese: Code(s): E11.69 - Type 2 diabetes mellitus with other specified complication; E66.9 - Obesity, unspecified Status: Chronic Assessment and Plan: * follow accu-checks * glycemic control per hospitalist/tower technician (10) Generalized weakness: Code(s): R53.1 - Weakness Status: Acute Assessment and Plan: * likely related to acute illness * low BP + diarrhea + poor oral intake + infection (bacteremia/endocarditis) * CT scan of the brain noted: * no acute hemorrhage or large acute ischemic event * possible old right subdural hygroma * chronic appearing right-sided basal ganglia infarction * continue supportive therapy Long and extensive discussion (> 20 minutes) with patient's at bedside regarding current situations -- she is aware of the complex issues related to his infection including the recent findings of endocarditis on this tricuspid valve and ventricular pacemaker lead and the likelihood that he may need to be transferred to another hospital for intervention regarding the pacemaker infection and the need for prolonged antibiotic therapy. Will continue to follow. L Subjective Date/time seen: 10/04/25 17:01 Interval history: Follow-up for end stage renal disease on hemodialysis. Status post LETY, removal of tunneled HD catheter and placement of temporary HD catheter placement earlier today -- appears to have tolerated all of these procedure fairly well; results of LETY noted; no apparent distress voiced at the time of my visit; extensive discussion with patient's at bedside regarding the situation. Exam 2 Narrative: General: ill-appearing elderly male in no acute distress Heart: normal S1 and S2; no rub Lungs: clear anteriorly; decreased at bases Abdomen: soft, nontender, nondistended, positive bowel sounds Extremities: no cyanosis or clubbing; trace edema Skin: toe wounds/amputations unchanged Objective Data Vital Signs Vital Signs: Vital Signs Temp Pulse Resp BP Pulse Ox O2 Del Method O2 Flow Rate 10/04/25 17:00 99.5 F 62 22 H 118/69 94 10/04/25 16:43 62 20 118/61 98 Room Air 10/04/25 16:28 62 20 118/63 99 Nasal Cannula 3 10/04/25 16:13 64 20 122/68 99 Nasal Cannula 3 10/04/25 16:10 96 Nasal Cannula 3 10/04/25 15:58 67 18 128/67 99 Simple Face Mask 8 10/04/25 15:43 72 18 132/60 99 Simple Face Mask 8 10/04/25 15:28 97.1 F L 72 20 126/57 L 99 Simple Face Mask 8 10/04/25 13:55 97.1 F L 63 16 104/59 L 100 Room Air 10/04/25 12:00 62 10/04/25 12:00 98 Room Air 10/04/25 12:00 99.2 F 66 20 116/62 98 10/04/25 11:00 99.0 F 62 20 112/63 99 10/04/25 10:00 62 10/04/25 10:00 98.9 F 61 20 111/60 99 10/04/25 09:00 98.7 F 64 22 H 115/58 L 98 10/04/25 08:00 64 10/04/25 08:00 98 Room Air 10/04/25 08:00 98.6 F 62 20 110/64 98 10/04/25 07:00 98.5 F 60 22 H 111/57 L 97 10/04/25 06:00 62 10/04/25 06:00 98.7 F 63 20 104/60 95 10/04/25 05:00 98.8 F 61 21 H 112/60 99 10/04/25 04:00 61 10/04/25 04:00 Room Air 10/04/25 04:00 98.8 F 62 21 H 112/62 99 10/04/25 03:00 98.9 F 64 23 H 110/62 97 10/04/25 02:00 99.3 F 63 22 H 105/62 97 10/04/25 02:00 63 10/04/25 01:00 100.2 F H 62 26 H 104/54 L 98 10/04/25 00:00 Room Air 10/04/25 00:00 63 10/04/25 00:00 101.1 F H 64 27 H 106/53 L 97 10/03/25 23:37 101.8 F H 10/03/25 23:00 101.8 F H 67 24 H 108/57 L 99 10/03/25 22:37 102 F H 10/03/25 22:00 68 10/03/25 22:00 102.1 F H 68 22 H 115/58 L 98 10/03/25 21:00 102.4 F H 68 16 116/58 L 98 10/03/25 20:00 70 10/03/25 20:00 Room Air 10/03/25 20:00 102.2 F H 68 25 H 107/63 98 Intake/Output Intake/Output: Intake & Output 10/01/25 10/02/25 10/03/25 10/04/25 23:59 23:59 23:59 23:59 Intake Total 902 742.9 302.8 235 Output Total 300 100 175 65 Balance 602 642.9 127.8 170 Meds/Results Medications: Active Medications Generic Name Dose Route Start Last Admin Trade Name Freq PRN Reason Stop Dose Admin Acetaminophen 650 mg 10/01/25 13:23 10/03/25 22:37 Acetaminophen 650 Mg Suppository RECTAL 650 mg Q6H PRN Administration Mild Pain (1-3) or Fever Dextrose 12.5 gm 10/01/25 13:04 Dextrose 50% 25 Gm/50 Ml Syringe IV PUSH PRN PRN Hypoglycemia Protocol Fentanyl Citrate 25 mcg 10/04/25 16:49 Fentanyl Citrate Inj (*Crx) 100 Mcg/2 Ml Vial IV PUSH Q2H PRN Pain Rated 7-10 Fentanyl Citrate 12.5 mcg 10/04/25 16:49 Fentanyl Citrate Inj (*Crx) 100 Mcg/2 Ml Vial IV PUSH Q2H PRN Pain Rated 4-6 Glucagon 1 mg 10/01/25 13:04 Glucagon For Inj 1 Mg Vial IM PRN PRN Hypoglycemia Protocol Glucose 15 gm 10/01/25 13:04 Glucose Oral Gel 15 Gm Of Glucse In 37.5 Gm Tube PO PRN PRN Hypoglycemia Protocol Heparin Sodium (Porcine) 7,500 units 10/01/25 14:23 Heparin Sodium 5,000 Units/Ml Vial IV PUSH On Hold: 10/04/25 08:48 PRN PRN aPTT less than 55 seconds Heparin Sodium (Porcine) 3,500 units 10/01/25 14:23 10/03/25 06:34 Heparin Sodium 5,000 Units/Ml Vial IV PUSH 3,500 units On Hold: 10/04/25 08:48 PRN PRN Administration aPTT 55 - 70 seconds Dextrose 1,000 mls @ 100 mls/hr 10/01/25 13:04 Dextrose 5% 1,000 Ml IVPB PRN PRN Hypoglycemia Protocol Heparin Sodium/Dextrose 25,000 units in 250 mls @ 0 mls/hr 10/01/25 14:25 10/03/25 19:30 Heparin Sodium/D5w 100 Units/Ml IV CONT Not Given On Hold: 10/03/25 17:05 .Q0M [facility] Protocol 0 UNITS/HR Albumin Human 50 mls @ 999 mls/hr 10/03/25 08:47 Albutein IVPB 11/02/25 08:46 Q10M PRN HYPOTENSION Cefazolin Sodium 1 gm/ Sodium 50 mls @ 100 mls/hr 10/03/25 21:00 10/03/25 20:41 Chloride IVPB Infused Q24H [facility] Infusion Potassium Chloride 100 mls @ 50 mls/hr 10/04/25 18:30 10/04/25 18:48 Kcl 20 Meq/Sw 100 Ml IVPB 10/04/25 20:29 50 mls/hr ONCE ONE Administration Insulin Aspart 3 - 6 units 10/01/25 18:00 10/04/25 18:02 Insulin Aspart (*Bkc) 100 Units/Ml SUB-Q Not Given Q6HR [facility] Protocol Levothyroxine Sodium 25 mcg 10/02/25 06:30 10/04/25 06:02 Levothyroxine Sodium Inj 100 Mcg/5 Ml Vial IV PUSH 25 mcg DAILY@0630 [facility] Administration Pantoprazole Sodium 40 mg 10/02/25 09:00 10/04/25 08:42 Pantoprazole Sodium Iv 40 Mg Vial IV PUSH 40 mg QAM [facility] Administration Sodium Chloride 10 ml 10/03/25 14:00 10/04/25 18:02 Central Line Flush IV PUSH 10 ml Q8HR [facility] Administration Sodium Chloride 20 ml 10/03/25 11:21 Central Line Flush IV PUSH PRN PRN after blood draws Vancomycin HCl 1 each 10/01/25 15:02 Vancomycin For Hemodialysis IVPB PRN PRN Vancomycin Protocol Radiology Results: ITS Impressions Head CT 10/01/25 13:35 IMPRESSION: 1. No acute hemorrhage or large acute ischemic event. 2. Possible old right subdural hygroma. 3. Chronic appearing right-sided basal ganglia infarction. Chest/Abdomen/Pelvis CT 10/01/25 13:38 IMPRESSION: 1. Directed noncontrast exam demonstrates cardiomegaly with patchy areas of groundglass opacification which may represent vascular congestion and early decompensation. Enlarged pulmonary arteries may represent pulmonary arterial hypertension. Atypical inflammatory or infectious process could have a similar appearance. 2. Several lung nodules concerning for metastatic malignant process. Hematogenous infectious process could potentially have a similar appearance. 3. Mildly distended gallbladder but no biliary ductal dilatation seen. Correlate with right upper quadrant ultrasound for optimal evaluation. 4. Possible mild urinary bladder wall thickening. Correlate with urinalysis. 5. 4.4 cm ascending thoracic aortic aneurysm Chest X-Ray 10/04/25 15:49 Impression: CHF. Superimposed probable bronchopneumonia Labs Labs: Laboratory Tests 10/04/25 05:50 10/04/25 17:01 10/04/25 05:50 Sodium 142 Potassium 2.9 L Chloride 101 Carbon Dioxide 21 L Anion Gap 20 H BUN 66 H D Creatinine 4.80 H Estim Creat Clear Calc 17 Estimated GFR 12 L Glucose 157 H Calcium 8.5 Phosphorus 2.6 Magnesium 2.3 Total Bilirubin 2.5 H AST 41 ALT 23 Alkaline Phosphatase 229 H Total Protein 7.0 Albumin 3.6 Microbiology 10/01/25 12:17 Blood Blood Culture - Final Methicillin Resis Staph Aureus 10/01/25 12:11 Blood Blood Culture - Final Methicillin Resis Staph Aureus
[2025-10-04 17:18] LABS: Anion Gap 22 mmol/L (4-12); Blood Urea Nitrogen 72 mg/dL (9-20); Calcium 8.3 mg/dL (8.4-10.2); Carbon Dioxide 19 mmol/L (22-30); Chloride 103 mmol/L (98-107); Glucose 176 mg/dL (65-110); Potassium 3.6 mmol/L (3.4-5.0); Sodium 144 mmol/L (137-145)
[2025-10-04 17:25] LABS: Estimated CRCL calculation 16 ml/min; Estimated Glomerular Filt Rate 11
[2025-10-04] MEDS: KCL 20 MEQ/SW 100 ML 100 ML 50 MEQ IVPB (18:48)
[2025-10-04] MEDS: ceFAZolin 1 GM in SODIUM CHLORIDE 0.9% IV 50 ML 100 ML IVPB (20:26)
[2025-10-05] VITALS (48 sets, daily range): BP systolic 93–131; BP diastolic 58–70; PULSE 58–92; RESP 20–28; TEMP 37–37.9; O2SAT 95–100
[2025-10-05 05:14] LABS: Hematocrit 27.8 % (42.0-52.0); Hemoglobin 8.6 g/dL (14.0-18.0); Mean Corpuscular HGB Conc 30.9 g/dl (32-36); Mean Corpuscular Hemoglobin 27.1 pg (26-34); Mean Corpuscular Volume 87.7 fl (80-100); Platelet Count Result 107 k/mm3 (150-375); Red Blood Count 3.17 M/mm3 (4.6-6.20); White Blood Count 12.8 K/mm3 (4.5-10.0)
[2025-10-05 05:20] LABS: INR 2.2; Prothrombin Time 23.5 Seconds (11.1-14.7)
[2025-10-05 05:21] LABS: Partial Thromboplastin Time 39.7 Seconds (22.3-36.8)
[2025-10-05 05:30] LABS: Alanine Aminotransferase 16 U/L (6-50); Albumin Level 3.4 g/dL (3.5-5.1); Alkaline Phosphatase 217 U/L (38-126); Anion Gap 18 mmol/L (4-12); Aspartate Amino Transferase 32 U/L (17-59); Bilirubin,Total 2.1 mg/dL (0.2-1.3); Blood Urea Nitrogen 79 mg/dL (9-20); Calcium 8.2 mg/dL (8.4-10.2); Carbon Dioxide 20 mmol/L (22-30); Chloride 105 mmol/L (98-107); Glucose 171 mg/dL (65-110); Magnesium 2.5 mg/dL (1.6-2.3); Potassium 3.7 mmol/L (3.4-5.0); Sodium 143 mmol/L (137-145); Total Protein 6.9 g/dL (6.3-8.2)
[2025-10-05 05:41] LABS: Estimated CRCL calculation 15 ml/min; Estimated Glomerular Filt Rate 10
[2025-10-05] MEDS: LEVOTHYROXINE SODIUM INJ 100 MCG/5 ML VIAL 25 MCG IV PUSH (06:01)
[2025-10-05] MEDS: CENTRAL LINE FLUSH 10 ML IV PUSH ×2 (06:01→15:00)
--- NOTE | 2025-10-05 08:03 | WPDINTPN ---
Progress Note: A&P Assessment and Plan (1) Sepsis: Qualifiers: Sepsis acute organ dysfunction status: unspecified Sepsis type: sepsis due to unspecified organism Qualified Code(s): A41.9 - Sepsis, unspecified organism Code(s): A41.9 - Sepsis, unspecified organism Status: Inactive Assessment and Plan: 10/01: Patient presented the ED with complains of generalized weakness, diarrhea, unable to get up from his bed since 09/27/2025. Patient also missed his dialysis on 09/28 and on 10/01. 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 There is mild tricuspid regurgitation 10/05 LETY - Anatomically normal tricuspid valve with multilobe vegetation associated with the septal leaflet. Largest portion measures 1.5 cm in diameter. This vegetation extends to the ventricular lead of the pacemaker. Vegetation here is 0.9 cm diameter. 7. 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 Zosyn discontinued Infectious disease following and managing antibiotics LETY ordered and pending Will plan to transfer patient to a tertiary facility for lead removal (2) Diarrhea: Qualifiers: Diarrhea type: unspecified type Qualified Code(s): R19.7 - Diarrhea, unspecified Code(s): R19.7 - Diarrhea, unspecified Status: Resolved Assessment and Plan: Patient with diarrhea, according the he has not been on any antibiotics recently -diarrhea has resolved 10/02: Stool for C diff is negative 10/01/2025: CT chest, abdomen, pelvis 1. Directed noncontrast exam demonstrates cardiomegaly with patchy areas of groundglass opacification which may represent vascular congestion and early decompensation. Enlarged pulmonary arteries may represent pulmonary arterial hypertension. Atypical inflammatory or infectious process could have a similar appearance. 2. Several lung nodules concerning for metastatic malignant process. Hematogenous infectious process could potentially have a similar appearance. 3. Mildly distended gallbladder but no biliary ductal dilatation seen. Correlate with right upper quadrant ultrasound for optimal evaluation. 4. Possible mild urinary bladder wall thickening. Correlate with urinalysis. 5. 4.4 cm ascending thoracic aortic aneurysm (3) Diabetes mellitus type 2 in obese: Code(s): E11.69 - Type 2 diabetes mellitus with other specified complication; E66.9 - Obesity, unspecified Status: Chronic Assessment and Plan: History of type 2 diabetes, patient is on Lantus 25 units q.12 hours at home along with Humalog 10 units subQ t.i.d. with meals -patient currently NPO, hold Lantus for now -continue Accu-Cheks and sliding scale insulin (4) End-stage renal disease on hemodialysis: Code(s): N18.6 - End stage renal disease; Z99.2 - Dependence on renal dialysis Status: Acute Assessment and Plan: History of end-stage renal disease on dialysis (Jose A, Serena, Nickolas) has missed dialysis on 09/28/2025 and 10/01/2025 -on admission seemed to be volume depleted, received IV fluid bolus and albumin for intravascular volume expansion, Nephrology was agreeable to IV fluids and volume expansion since chest x-ray was clear patient was on room air -fluids were given cautiously due to history of end-stage renal disease on dialysis -nephrology was consulted from the ED, 10/03 patient was dialyzed 10/04 tunneled dialysis catheter removed and a left IJ temporary dialysis catheter placed by general surgery. 10/05 plan for dialysis today (5) Wound of foot: Code(s): S91.309A - Unspecified open wound, unspecified foot, initial encounter Status: Acute Assessment and Plan: Right 4th toe necrotic appearing -Eschar/necrotic tissue on the right heel -patient also has deep tissue injury on the buttocks -appreciate wound care evaluation and recommendations (6) Atrial fibrillation/flutter: Status: Acute Assessment and Plan: A history of AFib, on apixaban at home -patient is had some coughing with drinking fluids according the -will obtain speech evaluation if he passes will restart apixaban Patient was on heparin infusio but was held due to surgical procedures and thrombocytopenia (7) HTN (hypertension): Qualifiers: Hypertension type: primary hypertension Qualified Code(s): I10 - Essential (primary) hypertension Code(s): I10 - Essential (primary) hypertension Status: Chronic Assessment and Plan: currently hypotensive will hold all antihypertensive (8) Hypothyroidism: Code(s): E03.9 - Hypothyroidism, unspecified Status: Inactive Assessment and Plan: Since patient is NPO, switched levothyroxine to 50% of the dose IV (9) Generalized weakness: Code(s): R53.1 - Weakness Status: Acute Assessment and Plan: Most likely related to hypotension, diarrhea, hypovolemia -will require PT/OT once he is more stable -10/01: CT scan of the brain with no acute hemorrhage or large acute ischemic event. Possible old right subdural hygroma. Chronic appearing right-sided basal ganglia infarction (10) Staphylococcus aureus bacteremia with sepsis: Code(s): A41.01 - Sepsis due to Methicillin susceptible Staphylococcus aureus Status: Acute (11) Endocarditis of tricuspid valve: Code(s): I07.9 - Rheumatic tricuspid valve disease, unspecified Status: Acute (12) Dysphagia: Code(s): R13.10 - Dysphagia, unspecified Status: Acute Assessment and Plan: Patient has failed bedside swallow and awaits modified barium swallow which cannot be done until Tuesday. Consult speech for repeat bedside swallow evaluation today. If fails again I will place NG and start some tube feeding. Plan DVT prophylaxis: Heparin infusion is currently off plan to restart anticoagulation today Stress ulcer prophylaxis: Protonix Nutrition: NPO Code Status: Full code Transfer out of ICU after hemodialysis today. I have had extensive discussion patient's . Patient will need to be transferred to tertiary facility. She understands the need for transfer and is agreeable. Critical Care Time Spent: 30 minutes Due to a high probability of clinically significant, life threatening deterioration, the patient required my highest level of preparedness to intervene emergently and I personally spent this critical care time directly and personally managing the patient. This critical care time included obtaining a history; examining the patient; pulse oximetry; ordering and review of studies; arranging urgent treatment with development of a management plan; evaluation of patient's response to treatment; frequent reassessment; and discussions with other providers. It was exclusive of separately billable procedures and treating other patients and teaching time. Please see Assessment and Plan section and the rest of the note for further information on patient assessment and treatment This dictation may have been done utilizing a voice recognition system. Attempts have been made to correct errors. However, there may be uncorrected grammatical, spelling, and recognitions errors present. Subjective Date/time seen: 10/05/25 Overnight events reviewed. febrile. On room air He states he is hungry. He feels weak and tired. Denies any other complaints. Patient denies fever, chest pain, shortness of breath, cough, nausea vomiting, abdominal pain,, diarrhea, headache or constipation. All other systems were reviewed and were negative He had his tunneled dialysis catheter removed yesterday. A temporary hemodialysis catheter was placed yesterday. Other Vitals acceptable Review of Systems Review of Systems: All systems reviewed & are unremarkable except as noted in HPI and below Exam Narrative: General: Ill-appearing gentleman HEENT:? Pupils equal and reactive nares clear ischemia, moist oral mucosa Neck:? Supple Respiratory:? Clear to auscultation bilaterally, decreased at bases adequate air entry, no wheezing Cardiac:? S1-S2 normal, regular rate and rhythm, pacer spikes noted intermittently Abdomen:? Soft, nontender, nondistended, normoactive bowel sounds Extremities:? Right 4th toe looks necrotic, right foot has only 2 toes rest of the toe was amputated. Trace edema bilateral lower extremity, palpable pedal pulses Neuro:? Patient is weak, feeble voice, awake, oriented x3, answers to questions appropriately and follows simple commands in all extremities Skin:? Dry, poor skin turgor Psych:? Depressed affect, normal mentation Objective Data Vital Signs Vital Signs: Vital Signs - 24 hr 10/04/25 09:00 10/04/25 10:00 10/04/25 10:00 Temperature 37.1 C 37.2 C Pulse Rate 64 61 62 Respiratory Rate 22 H 20 Blood Pressure 115/58 L 111/60 Pulse Oximetry 98 99 Oxygen Delivery Oxygen Flow Rate 10/04/25 11:00 10/04/25 12:00 10/04/25 12:00 Temperature 37.2 C 37.3 C Pulse Rate 62 66 Respiratory Rate 20 20 Blood Pressure 112/63 116/62 Pulse Oximetry 99 98 98 Oxygen Delivery Room Air Oxygen Flow Rate 10/04/25 12:00 10/04/25 13:55 10/04/25 15:28 Temperature 36.2 C L 36.2 C L Pulse Rate 62 63 72 Respiratory Rate 16 20 Blood Pressure 104/59 L 126/57 L Pulse Oximetry 100 99 Oxygen Delivery Room Air Simple Face Mask Oxygen Flow Rate 8 10/04/25 15:43 10/04/25 15:58 10/04/25 16:10 Temperature Pulse Rate 72 67 Respiratory Rate 18 18 Blood Pressure 132/60 128/67 Pulse Oximetry 99 99 96 Oxygen Delivery Simple Face Mask Simple Face Mask Nasal Cannula Oxygen Flow Rate 8 8 3 10/04/25 16:13 10/04/25 16:28 10/04/25 16:43 Temperature Pulse Rate 64 62 62 Respiratory Rate 20 20 20 Blood Pressure 122/68 118/63 118/61 Pulse Oximetry 99 99 98 Oxygen Delivery Nasal Cannula Nasal Cannula Room Air Oxygen Flow Rate 3 3 10/04/25 17:00 10/04/25 17:00 10/04/25 17:07 Temperature 37.5 C Pulse Rate 62 63 Respiratory Rate 22 H Blood Pressure 118/69 Pulse Oximetry 94 94 Oxygen Delivery Room Air Oxygen Flow Rate 10/04/25 18:00 10/04/25 18:00 10/04/25 18:01 Temperature 37.4 C 37.4 C Pulse Rate 63 63 63 Respiratory Rate 24 H 27 H Blood Pressure 117/60 117/60 Pulse Oximetry 95 97 Oxygen Delivery Oxygen Flow Rate 10/04/25 18:15 10/04/25 18:30 10/04/25 18:45 Temperature 37.5 C 37.6 C 37.6 C Pulse Rate 62 62 63 Respiratory Rate 23 H 26 H 22 H Blood Pressure Pulse Oximetry 95 96 96 Oxygen Delivery Oxygen Flow Rate 10/04/25 19:00 10/04/25 19:00 10/04/25 19:01 Temperature 37.6 C H 37.6 C H 37.6 C H Pulse Rate 63 63 64 Respiratory Rate 26 H 25 H 26 H Blood Pressure 107/71 107/71 Pulse Oximetry 97 97 99 Oxygen Delivery Oxygen Flow Rate 10/04/25 19:15 10/04/25 19:30 10/04/25 19:45 Temperature 37.6 C H 37.6 C H 37.7 C H Pulse Rate 63 63 62 Respiratory Rate 24 H 23 H 26 H Blood Pressure Pulse Oximetry 96 96 97 Oxygen Delivery Oxygen Flow Rate 10/04/25 20:00 10/04/25 20:00 10/04/25 20:00 Temperature 37.7 C H Pulse Rate 65 62 Respiratory Rate 26 H Blood Pressure 113/62 Pulse Oximetry 65 L Oxygen Delivery Room Air Oxygen Flow Rate 10/04/25 20:00 10/04/25 20:01 10/04/25 20:15 Temperature 37.7 C H 37.7 C H 37.7 C H Pulse Rate 63 62 61 Respiratory Rate 26 H 27 H 27 H Blood Pressure 113/62 Pulse Oximetry 97 97 96 Oxygen Delivery Oxygen Flow Rate 10/04/25 20:30 10/04/25 20:45 10/04/25 21:00 Temperature 37.8 C H 37.8 C H 37.8 C H Pulse Rate 62 62 62 Respiratory Rate 18 26 H 23 H Blood Pressure 120/62 Pulse Oximetry 97 96 99 Oxygen Delivery Oxygen Flow Rate 10/04/25 21:00 10/04/25 21:01 10/04/25 21:15 Temperature 37.8 C H 37.8 C H 37.8 C H Pulse Rate 62 62 62 Respiratory Rate 22 H 22 H 29 H Blood Pressure 120/62 Pulse Oximetry 100 100 97 Oxygen Delivery Oxygen Flow Rate 10/04/25 21:30 10/04/25 21:45 10/04/25 22:00 Temperature 37.9 C H 37.9 C H Pulse Rate 61 64 62 Respiratory Rate 28 H 26 H Blood Pressure Pulse Oximetry 97 97 Oxygen Delivery Oxygen Flow Rate 10/04/25 22:00 10/04/25 22:00 10/04/25 22:01 Temperature 37.9 C H 37.9 C H 37.9 C H Pulse Rate 62 62 64 Respiratory Rate 23 H 25 H 28 H Blood Pressure 114/61 114/61 Pulse Oximetry 98 97 98 Oxygen Delivery Oxygen Flow Rate 10/04/25 22:15 10/04/25 22:30 10/04/25 22:45 Temperature 37.9 C H 38.0 C H 38.0 C H Pulse Rate 62 64 64 Respiratory Rate 27 H 26 H 25 H Blood Pressure Pulse Oximetry 97 97 96 Oxygen Delivery Oxygen Flow Rate 10/04/25 23:00 10/04/25 23:00 10/04/25 23:01 Temperature 37.9 C H 38.0 C H 37.9 C H Pulse Rate 64 63 62 Respiratory Rate 25 H 28 H 28 H Blood Pressure 113/61 113/61 Pulse Oximetry 96 97 97 Oxygen Delivery Oxygen Flow Rate 10/04/25 23:15 10/04/25 23:30 10/04/25 23:45 Temperature 37.9 C H 37.9 C H 37.9 C H Pulse Rate 62 64 63 Respiratory Rate 26 H 24 H 28 H Blood Pressure Pulse Oximetry 97 96 95 Oxygen Delivery Oxygen Flow Rate 10/05/25 00:00 10/05/25 00:00 10/05/25 00:00 Temperature 37.9 C H Pulse Rate 62 63 Respiratory Rate 28 H Blood Pressure 118/59 L Pulse Oximetry 95 Oxygen Delivery Room Air Oxygen Flow Rate 10/05/25 00:00 10/05/25 00:01 10/05/25 00:15 Temperature 37.9 C H 37.9 C H 37.9 C H Pulse Rate 62 61 63 Respiratory Rate 28 H 28 H 25 H Blood Pressure 118/59 L Pulse Oximetry 95 97 95 Oxygen Delivery Oxygen Flow Rate 10/05/25 00:30 10/05/25 00:45 10/05/25 01:00 Temperature 37.9 C H 37.8 C H 37.8 C H Pulse Rate 63 62 62 Respiratory Rate 27 H 28 H 26 H Blood Pressure 116/60 Pulse Oximetry 96 96 96 Oxygen Delivery Oxygen Flow Rate 10/05/25 01:00 10/05/25 01:01 10/05/25 01:15 Temperature 37.8 C H 37.8 C H 37.8 C H Pulse Rate 63 63 63 Respiratory Rate 23 H 24 H 28 H Blood Pressure 116/60 Pulse Oximetry 96 97 96 Oxygen Delivery Oxygen Flow Rate 10/05/25 01:30 10/05/25 01:45 10/05/25 02:00 Temperature 37.8 C H 37.8 C H 37.8 C H Pulse Rate 62 58 L 69 Respiratory Rate 25 H 28 H 27 H Blood Pressure 112/67 Pulse Oximetry 96 96 96 Oxygen Delivery Oxygen Flow Rate 10/05/25 02:00 10/05/25 02:00 10/05/25 02:01 Temperature 37.8 C H 37.8 C H Pulse Rate 65 92 69 Respiratory Rate 26 H 27 H Blood Pressure 112/67 Pulse Oximetry 96 96 Oxygen Delivery Oxygen Flow Rate 10/05/25 02:15 10/05/25 02:30 10/05/25 02:45 Temperature 37.8 C H 37.8 C H 37.8 C H Pulse Rate 67 62 64 Respiratory Rate 27 H 27 H 26 H Blood Pressure Pulse Oximetry 95 95 95 Oxygen Delivery Oxygen Flow Rate 10/05/25 03:00 10/05/25 03:00 10/05/25 03:01 Temperature 37.8 C H 37.8 C H 37.8 C H Pulse Rate 62 63 63 Respiratory Rate 26 H 20 28 H Blood Pressure 118/64 118/64 Pulse Oximetry 95 97 96 Oxygen Delivery Oxygen Flow Rate 10/05/25 03:15 10/05/25 03:30 10/05/25 03:45 Temperature 37.8 C H 37.8 C H 37.8 C H Pulse Rate 62 62 64 Respiratory Rate 24 H 28 H 28 H Blood Pressure Pulse Oximetry 95 96 96 Oxygen Delivery Oxygen Flow Rate 10/05/25 04:00 10/05/25 04:00 10/05/25 04:00 Temperature 37.8 C H Pulse Rate 64 62 Respiratory Rate 28 H Blood Pressure 116/58 L Pulse Oximetry 97 Oxygen Delivery Room Air Oxygen Flow Rate 10/05/25 05:00 10/05/25 06:00 10/05/25 06:00 Temperature 37.7 C H 37.7 C H Pulse Rate 63 62 62 Respiratory Rate 26 H 26 H Blood Pressure 120/61 128/59 L Pulse Oximetry 95 95 Oxygen Delivery Oxygen Flow Rate 10/05/25 07:00 10/05/25 07:00 Temperature 37.7 C H 37.7 C H Pulse Rate 62 62 Respiratory Rate 27 H 28 H Blood Pressure 122/59 L 122/59 L Pulse Oximetry 96 96 Oxygen Delivery Oxygen Flow Rate Intake/Output Intake/Output: Intake & Output 10/02/25 10/03/25 10/04/25 10/05/25 23:59 23:59 23:59 23:59 Intake Total 742.9 302.8 385 Output Total 100 175 65 50 Balance 642.9 127.8 320 -50 Meds/Results Medications: Active Medications Generic Name Dose Route Start Last Admin Trade Name Freq PRN Reason Stop Dose Admin Acetaminophen 650 mg 10/01/25 13:23 10/03/25 22:37 Acetaminophen 650 Mg Suppository RECTAL 650 mg Q6H PRN Administration Mild Pain (1-3) or Fever Dextrose 12.5 gm 10/01/25 13:04 Dextrose 50% 25 Gm/50 Ml Syringe IV PUSH PRN PRN Hypoglycemia Protocol Epoetin Laron-epbx 10,000 units 10/05/25 19:28 Epoetin Laron-Epbx 10,000 Units/Ml Vial IV PUSH 10/05/25 19:29 ONCE ONE Fentanyl Citrate 25 mcg 10/04/25 16:49 Fentanyl Citrate Inj (*Crx) 100 Mcg/2 Ml Vial IV PUSH Q2H PRN Pain Rated 7-10 Fentanyl Citrate 12.5 mcg 10/04/25 16:49 Fentanyl Citrate Inj (*Crx) 100 Mcg/2 Ml Vial IV PUSH Q2H PRN Pain Rated 4-6 Glucagon 1 mg 10/01/25 13:04 Glucagon For Inj 1 Mg Vial IM PRN PRN Hypoglycemia Protocol Glucose 15 gm 10/01/25 13:04 Glucose Oral Gel 15 Gm Of Glucse In 37.5 Gm Tube PO PRN PRN Hypoglycemia Protocol Heparin Sodium (Porcine) 7,500 units 10/01/25 14:23 Heparin Sodium 5,000 Units/Ml Vial IV PUSH On Hold: 10/04/25 08:48 PRN PRN aPTT less than 55 seconds Heparin Sodium (Porcine) 3,500 units 10/01/25 14:23 10/03/25 06:34 Heparin Sodium 5,000 Units/Ml Vial IV PUSH 3,500 units On Hold: 10/04/25 08:48 PRN PRN Administration aPTT 55 - 70 seconds Dextrose 1,000 mls @ 100 mls/hr 10/01/25 13:04 Dextrose 5% 1,000 Ml IVPB PRN PRN Hypoglycemia Protocol Heparin Sodium/Dextrose 25,000 units in 250 mls @ 0 mls/hr 10/01/25 14:25 10/03/25 19:30 Heparin Sodium/D5w 100 Units/Ml IV CONT Not Given On Hold: 10/03/25 17:05 .Q0M [facility] Protocol 0 UNITS/HR Albumin Human 50 mls @ 999 mls/hr 10/03/25 08:47 Albutein IVPB 11/02/25 08:46 Q10M PRN HYPOTENSION Cefazolin Sodium 1 gm/ Sodium 50 mls @ 100 mls/hr 10/03/25 21:00 10/04/25 20:55 Chloride IVPB Infused Q24H [facility] Infusion Vancomycin HCl 1,000 mg/ 250 mls @ 250 mls/hr 10/05/25 18:00 Sodium Chloride IVPB 10/05/25 18:59 ONCE ONE Sodium Chloride 1,000 mls @ 999 mls/hr 10/05/25 07:28 Normal Saline Iv IV CONT 10/05/25 08:28 .Q1H1M ONE Insulin Aspart 3 - 6 units 10/01/25 18:00 10/05/25 06:00 Insulin Aspart (*Bkc) 100 Units/Ml SUB-Q Not Given Q6HR [facility] Protocol Levothyroxine Sodium 25 mcg 10/02/25 06:30 10/05/25 06:01 Levothyroxine Sodium Inj 100 Mcg/5 Ml Vial IV PUSH 25 mcg DAILY@0630 [facility] Administration Pantoprazole Sodium 40 mg 10/02/25 09:00 10/04/25 08:42 Pantoprazole Sodium Iv 40 Mg Vial IV PUSH 40 mg QAM [facility] Administration Sodium Chloride 10 ml 10/03/25 14:00 10/05/25 06:01 Central Line Flush IV PUSH 10 ml Q8HR [facility] Administration Sodium Chloride 20 ml 10/03/25 11:21 Central Line Flush IV PUSH PRN PRN after blood draws Vancomycin HCl 1 each 10/01/25 15:02 Vancomycin For Hemodialysis IVPB PRN PRN Vancomycin Protocol Radiology Results: ITS Impressions Head CT 10/01/25 13:35 IMPRESSION: 1. No acute hemorrhage or large acute ischemic event. 2. Possible old right subdural hygroma. 3. Chronic appearing right-sided basal ganglia infarction. Chest/Abdomen/Pelvis CT 10/01/25 13:38 IMPRESSION: 1. Directed noncontrast exam demonstrates cardiomegaly with patchy areas of groundglass opacification which may represent vascular congestion and early decompensation. Enlarged pulmonary arteries may represent pulmonary arterial hypertension. Atypical inflammatory or infectious process could have a similar appearance. 2. Several lung nodules concerning for metastatic malignant process. Hematogenous infectious process could potentially have a similar appearance. 3. Mildly distended gallbladder but no biliary ductal dilatation seen. Correlate with right upper quadrant ultrasound for optimal evaluation. 4. Possible mild urinary bladder wall thickening. Correlate with urinalysis. 5. 4.4 cm ascending thoracic aortic aneurysm Chest X-Ray 10/04/25 15:49 Impression: CHF. Superimposed probable bronchopneumonia Labs Labs: Laboratory Results - last 24 hr 10/04/25 10/04/25 10/04/25 12:08 12:17 13:35 WBC RBC Hgb Hct MCV MCH MCHC RDW Plt Count MPV PT 24.5 H D INR 2.3 APTT 40.7 H Sodium Potassium Chloride Carbon Dioxide Anion Gap BUN Creatinine Estim Creat Clear Calc Estimated GFR Glucose POC Capillary Glucose 155 H Calcium Phosphorus Magnesium Total Bilirubin AST ALT Alkaline Phosphatase Total Protein Albumin Random Vancomycin Blood Type O Positive Antibody Screen Negative 10/04/25 10/04/25 10/04/25 13:40 16:03 17:01 WBC RBC Hgb Hct MCV MCH MCHC RDW Plt Count MPV PT INR APTT Sodium 144 Potassium 3.6 Chloride 103 Carbon Dioxide 19 L Anion Gap 22 H BUN 72 H Creatinine 5.16 H Estim Creat Clear Calc 16 Estimated GFR 11 L Glucose 176 H POC Capillary Glucose 133 H 150 H Calcium 8.3 L Phosphorus Magnesium Total Bilirubin AST ALT Alkaline Phosphatase Total Protein Albumin Random Vancomycin Blood Type Antibody Screen 10/04/25 10/05/25 23:47 04:58 WBC 12.8 H RBC 3.17 L Hgb 8.6 L Hct 27.8 L MCV 87.7 MCH 27.1 MCHC 30.9 L RDW 19.1 H Plt Count 107 L MPV 12.1 H PT 23.5 H INR 2.2 APTT 39.7 H Sodium 143 Potassium 3.7 Chloride 105 Carbon Dioxide 20 L Anion Gap 18 H BUN 79 H Creatinine 5.48 H Estim Creat Clear Calc 15 Estimated GFR 10 L Glucose 171 H POC Capillary Glucose 167 H Calcium 8.2 L Phosphorus 2.4 L Magnesium 2.5 H Total Bilirubin 2.1 H AST 32 ALT 16 Alkaline Phosphatase 217 H Total Protein 6.9 Albumin 3.4 L Random Vancomycin 19.7 Blood Type Antibody Screen Quality VTE Prophylaxis VTE prophylaxis: pharmacologic ordered
[2025-10-05] MEDS: PANTOPRAZOLE SODIUM IV 40 MG VIAL IV PUSH (09:15)
--- NOTE | 2025-10-05 11:55 | PM.IMPN ---
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 we have MRSA bacteremia with tricuspid valve endocarditis and right ventricular pacemaker lead with vegetation -patient presented generalized weakness, diarrhea, poor p.o. intake -right femoral triple-lumen catheter placed for IV access -right tunneled HD catheter removed, new Left IJ HD cath placed 10/04 -blood cultures 10/01 positive for MRSA, repeat cultures 10/03 persistent GPC -antibiotics: IV vanc 10/01-will discontinue cefazolin with MRSA on cultures -KIT 10/04: Findings of tricuspid valve endocarditis as well as vegetation right ventricular pacemaker lead -chest x-ray neg, head CT possible right subdural hygroma -chronic diabetic ulcers on foot, continue local wound care -acute metabolic encephalopathy, improving -keep NPO until CLERICAL METHODS ANALYST eval -attempting to transfer to tertiary care center for lead removal 10/05 ESRD on HD TTS -has a tunneled right IJ HD catheter -renal failure has progressed ESRD -appreciate business insight and analytics manager consultation -still responding to Bumex and metolazone? Incidental finding -nodule suggesting metastatic malignant process -will need outpatient monitoring of lung nodules Chronic conditions- NPO until CLERICAL METHODS ANALYST eval -atrial fibrillation: Amiodarone, rate control metoprolol, anticoagulation Eliquis -type 2 diabetes: Sliding scale insulin, Accu-Cheks q.6 hours, hypoglycemia protocol. At home on glargine 25 units twice daily -hypothyroidism: Levothyroxine -BPH: flomax -chronic right foot wound: continue local wound care -anemia of CKD: Given EPO by business insight and analytics manager -hyperlipidemia: Aspirin/plavix, statin. Will have to evaluate if patient should be on triple therapy -supplements: B complex -GERD: Pepcid -muscle spasms: cyclobenzaprine Diet: NPO for CLERICAL METHODS ANALYST eval DVT prophylaxis: Heparin drip GI prophylaxis: IV Protonix Code status: Full code Disposition: Downgraded to medical floor, transfer to tertiary care center to remove infected hardware pacemaker and an with management of tricuspid valve endocarditis Social: updated bedside Time Spent With Patient Time: 35 minutes Subjective Date/time seen: 10/05/25 11:55 Interval history: Patient seen and examined. Yesterday his right HD tunneled catheter removed and new left HD catheter placed. Kit shows tricuspid endocarditis as well as vegetation on pacemaker leads. Patient is to have dialysis today. We are working on transfer to tertiary [facility] for lead removal and ongoing management of endocarditis and bacteremia. Patient's cultures are growing MRSA, will discontinue Ancef in continue with vancomycin IV monotherapy. Patient's updated at bedside. He denies fever, chills, nausea vomiting diarrhea. Patient's vitals are stable, not requiring any vasopressors, will downgrade to medical floor. Review of Systems Review of Systems: 10 point ROS complete, negative other than what is specified in HPI. All systems reviewed & are unremarkable except as noted in HPI and below Exam Narrative: - GENERAL: Pleasant male in no acute distress - EYES: EOMI. Anicteric. - HENT: Moist mucous membranes. - LUNGS: Clear to auscultation bilaterally, no wheezing or rhonchi - CARDIOVASCULAR: Regular rate and rhythm. tunneled right HD cath - ABDOMEN: Soft, non-tender and non-distended. - EXTREMITIES: no edema. Peripheral pulses 2+. RLE femoral TLC - NEUROLOGIC: No focal neurological deficits. CN II-XII grossly intact. - PSYCHIATRIC: Awake, Alert and oriented. Appropriate mood, flat affect. Poor insight Objective Data Vital Signs Vital Signs: Vital Signs - 24 hr 10/04/25 12:00 10/04/25 12:00 10/04/25 12:00 Temperature 37.3 C Pulse Rate 66 62 Respiratory Rate 20 Blood Pressure 116/62 Pulse Oximetry 98 98 Oxygen Delivery Room Air Oxygen Flow Rate 10/04/25 13:55 10/04/25 15:28 10/04/25 15:43 Temperature 36.2 C L 36.2 C L Pulse Rate 63 72 72 Respiratory Rate 16 20 18 Blood Pressure 104/59 L 126/57 L 132/60 Pulse Oximetry 100 99 99 Oxygen Delivery Room Air Simple Face Mask Simple Face Mask Oxygen Flow Rate 8 8 10/04/25 15:58 10/04/25 16:10 10/04/25 16:13 Temperature Pulse Rate 67 64 Respiratory Rate 18 20 Blood Pressure 128/67 122/68 Pulse Oximetry 99 96 99 Oxygen Delivery Simple Face Mask Nasal Cannula Nasal Cannula Oxygen Flow Rate 8 3 3 10/04/25 16:28 10/04/25 16:43 10/04/25 17:00 Temperature 37.5 C Pulse Rate 62 62 62 Respiratory Rate 20 20 22 H Blood Pressure 118/63 118/61 118/69 Pulse Oximetry 99 98 94 Oxygen Delivery Nasal Cannula Room Air Oxygen Flow Rate 3 10/04/25 17:00 10/04/25 17:07 10/04/25 18:00 Temperature Pulse Rate 63 63 Respiratory Rate Blood Pressure Pulse Oximetry 94 Oxygen Delivery Room Air Oxygen Flow Rate 10/04/25 18:00 10/04/25 18:01 10/04/25 18:15 Temperature 37.4 C 37.4 C 37.5 C Pulse Rate 63 63 62 Respiratory Rate 24 H 27 H 23 H Blood Pressure 117/60 117/60 Pulse Oximetry 95 97 95 Oxygen Delivery Oxygen Flow Rate 10/04/25 18:30 10/04/25 18:45 10/04/25 19:00 Temperature 37.6 C 37.6 C 37.6 C H Pulse Rate 62 63 63 Respiratory Rate 26 H 22 H 26 H Blood Pressure 107/71 Pulse Oximetry 96 96 97 Oxygen Delivery Oxygen Flow Rate 10/04/25 19:00 10/04/25 19:01 10/04/25 19:15 Temperature 37.6 C H 37.6 C H 37.6 C H Pulse Rate 63 64 63 Respiratory Rate 25 H 26 H 24 H Blood Pressure 107/71 Pulse Oximetry 97 99 96 Oxygen Delivery Oxygen Flow Rate 10/04/25 19:30 10/04/25 19:45 10/04/25 20:00 Temperature 37.6 C H 37.7 C H 37.7 C H Pulse Rate 63 62 65 Respiratory Rate 23 H 26 H 26 H Blood Pressure 113/62 Pulse Oximetry 96 97 65 L Oxygen Delivery Oxygen Flow Rate 10/04/25 20:00 10/04/25 20:00 10/04/25 20:00 Temperature 37.7 C H Pulse Rate 62 63 Respiratory Rate 26 H Blood Pressure Pulse Oximetry 97 Oxygen Delivery Room Air Oxygen Flow Rate 10/04/25 20:01 10/04/25 20:15 10/04/25 20:30 Temperature 37.7 C H 37.7 C H 37.8 C H Pulse Rate 62 61 62 Respiratory Rate 27 H 27 H 18 Blood Pressure 113/62 Pulse Oximetry 97 96 97 Oxygen Delivery Oxygen Flow Rate 10/04/25 20:45 10/04/25 21:00 10/04/25 21:00 Temperature 37.8 C H 37.8 C H 37.8 C H Pulse Rate 62 62 62 Respiratory Rate 26 H 23 H 22 H Blood Pressure 120/62 Pulse Oximetry 96 99 100 Oxygen Delivery Oxygen Flow Rate 10/04/25 21:01 10/04/25 21:15 10/04/25 21:30 Temperature 37.8 C H 37.8 C H 37.9 C H Pulse Rate 62 62 61 Respiratory Rate 22 H 29 H 28 H Blood Pressure 120/62 Pulse Oximetry 100 97 97 Oxygen Delivery Oxygen Flow Rate 10/04/25 21:45 10/04/25 22:00 10/04/25 22:00 Temperature 37.9 C H 37.9 C H Pulse Rate 64 62 62 Respiratory Rate 26 H 23 H Blood Pressure 114/61 Pulse Oximetry 97 98 Oxygen Delivery Oxygen Flow Rate 10/04/25 22:00 10/04/25 22:01 10/04/25 22:15 Temperature 37.9 C H 37.9 C H 37.9 C H Pulse Rate 62 64 62 Respiratory Rate 25 H 28 H 27 H Blood Pressure 114/61 Pulse Oximetry 97 98 97 Oxygen Delivery Oxygen Flow Rate 10/04/25 22:30 10/04/25 22:45 10/04/25 23:00 Temperature 38.0 C H 38.0 C H 37.9 C H Pulse Rate 64 64 64 Respiratory Rate 26 H 25 H 25 H Blood Pressure 113/61 Pulse Oximetry 97 96 96 Oxygen Delivery Oxygen Flow Rate 10/04/25 23:00 10/04/25 23:01 10/04/25 23:15 Temperature 38.0 C H 37.9 C H 37.9 C H Pulse Rate 63 62 62 Respiratory Rate 28 H 28 H 26 H Blood Pressure 113/61 Pulse Oximetry 97 97 97 Oxygen Delivery Oxygen Flow Rate 10/04/25 23:30 10/04/25 23:45 10/05/25 00:00 Temperature 37.9 C H 37.9 C H Pulse Rate 64 63 Respiratory Rate 24 H 28 H Blood Pressure Pulse Oximetry 96 95 Oxygen Delivery Room Air Oxygen Flow Rate 10/05/25 00:00 10/05/25 00:00 10/05/25 00:00 Temperature 37.9 C H 37.9 C H Pulse Rate 62 63 62 Respiratory Rate 28 H 28 H Blood Pressure 118/59 L Pulse Oximetry 95 95 Oxygen Delivery Oxygen Flow Rate 10/05/25 00:01 10/05/25 00:15 10/05/25 00:30 Temperature 37.9 C H 37.9 C H 37.9 C H Pulse Rate 61 63 63 Respiratory Rate 28 H 25 H 27 H Blood Pressure 118/59 L Pulse Oximetry 97 95 96 Oxygen Delivery Oxygen Flow Rate 10/05/25 00:45 10/05/25 01:00 10/05/25 01:00 Temperature 37.8 C H 37.8 C H 37.8 C H Pulse Rate 62 62 63 Respiratory Rate 28 H 26 H 23 H Blood Pressure 116/60 Pulse Oximetry 96 96 96 Oxygen Delivery Oxygen Flow Rate 10/05/25 01:01 10/05/25 01:15 10/05/25 01:30 Temperature 37.8 C H 37.8 C H 37.8 C H Pulse Rate 63 63 62 Respiratory Rate 24 H 28 H 25 H Blood Pressure 116/60 Pulse Oximetry 97 96 96 Oxygen Delivery Oxygen Flow Rate 10/05/25 01:45 10/05/25 02:00 10/05/25 02:00 Temperature 37.8 C H 37.8 C H Pulse Rate 58 L 69 65 Respiratory Rate 28 H 27 H Blood Pressure 112/67 Pulse Oximetry 96 96 Oxygen Delivery Oxygen Flow Rate 10/05/25 02:00 10/05/25 02:01 10/05/25 02:15 Temperature 37.8 C H 37.8 C H 37.8 C H Pulse Rate 92 69 67 Respiratory Rate 26 H 27 H 27 H Blood Pressure 112/67 Pulse Oximetry 96 96 95 Oxygen Delivery Oxygen Flow Rate 10/05/25 02:30 10/05/25 02:45 10/05/25 03:00 Temperature 37.8 C H 37.8 C H 37.8 C H Pulse Rate 62 64 62 Respiratory Rate 27 H 26 H 26 H Blood Pressure 118/64 Pulse Oximetry 95 95 95 Oxygen Delivery Oxygen Flow Rate 10/05/25 03:00 10/05/25 03:01 10/05/25 03:15 Temperature 37.8 C H 37.8 C H 37.8 C H Pulse Rate 63 63 62 Respiratory Rate 20 28 H 24 H Blood Pressure 118/64 Pulse Oximetry 97 96 95 Oxygen Delivery Oxygen Flow Rate 10/05/25 03:30 10/05/25 03:45 10/05/25 04:00 Temperature 37.8 C H 37.8 C H Pulse Rate 62 64 Respiratory Rate 28 H 28 H Blood Pressure Pulse Oximetry 96 96 Oxygen Delivery Room Air Oxygen Flow Rate 10/05/25 04:00 10/05/25 04:00 10/05/25 05:00 Temperature 37.8 C H 37.7 C H Pulse Rate 64 62 63 Respiratory Rate 28 H 26 H Blood Pressure 116/58 L 120/61 Pulse Oximetry 97 95 Oxygen Delivery Oxygen Flow Rate 10/05/25 06:00 10/05/25 06:00 10/05/25 07:00 Temperature 37.7 C H 37.7 C H Pulse Rate 62 62 62 Respiratory Rate 26 H 27 H Blood Pressure 128/59 L 122/59 L Pulse Oximetry 95 96 Oxygen Delivery Oxygen Flow Rate 10/05/25 07:00 10/05/25 08:00 10/05/25 08:00 Temperature 37.7 C H 37.7 C H Pulse Rate 62 62 Respiratory Rate 28 H 28 H Blood Pressure 122/59 L 123/63 Pulse Oximetry 96 96 96 Oxygen Delivery Room Air Oxygen Flow Rate 10/05/25 08:00 10/05/25 09:00 10/05/25 10:00 Temperature 37.7 C H 37.7 C H Pulse Rate 64 64 63 Respiratory Rate 23 H 27 H Blood Pressure 130/63 121/70 Pulse Oximetry 96 95 Oxygen Delivery Oxygen Flow Rate 10/05/25 10:00 10/05/25 11:00 Temperature Pulse Rate 67 61 Respiratory Rate 25 H Blood Pressure 128/62 Pulse Oximetry 96 Oxygen Delivery Oxygen Flow Rate Intake/Output Intake/Output: Intake & Output 10/02/25 10/03/25 10/04/25 10/05/25 23:59 23:59 23:59 23:59 Intake Total 742.9 302.8 385 Output Total 100 175 65 50 Balance 642.9 127.8 320 -50 Meds/Results Medications: Active Medications Generic Name Dose Route Start Last Admin Trade Name Freq PRN Reason Stop Dose Admin Acetaminophen 650 mg 10/01/25 13:23 10/03/25 22:37 Acetaminophen 650 Mg Suppository RECTAL 650 mg Q6H PRN Administration Mild Pain (1-3) or Fever Dextrose 12.5 gm 10/01/25 13:04 Dextrose 50% 25 Gm/50 Ml Syringe IV PUSH PRN PRN Hypoglycemia Protocol Epoetin Laron-epbx 10,000 units 10/05/25 19:28 Epoetin Laron-Epbx 10,000 Units/Ml Vial IV PUSH 10/05/25 19:29 ONCE ONE Fentanyl Citrate 25 mcg 10/04/25 16:49 Fentanyl Citrate Inj (*Crx) 100 Mcg/2 Ml Vial IV PUSH Q2H PRN Pain Rated 7-10 Fentanyl Citrate 12.5 mcg 10/04/25 16:49 Fentanyl Citrate Inj (*Crx) 100 Mcg/2 Ml Vial IV PUSH Q2H PRN Pain Rated 4-6 Glucagon 1 mg 10/01/25 13:04 Glucagon For Inj 1 Mg Vial IM PRN PRN Hypoglycemia Protocol Glucose 15 gm 10/01/25 13:04 Glucose Oral Gel 15 Gm Of Glucse In 37.5 Gm Tube PO PRN PRN Hypoglycemia Protocol Heparin Sodium (Porcine) 7,500 units 10/01/25 14:23 Heparin Sodium 5,000 Units/Ml Vial IV PUSH On Hold: 10/04/25 08:48 PRN PRN aPTT less than 55 seconds Heparin Sodium (Porcine) 3,500 units 10/01/25 14:23 10/03/25 06:34 Heparin Sodium 5,000 Units/Ml Vial IV PUSH 3,500 units On Hold: 10/04/25 08:48 PRN PRN Administration aPTT 55 - 70 seconds Dextrose 1,000 mls @ 100 mls/hr 10/01/25 13:04 Dextrose 5% 1,000 Ml IVPB PRN PRN Hypoglycemia Protocol Heparin Sodium/Dextrose 25,000 units in 250 mls @ 0 mls/hr 10/01/25 14:25 10/03/25 19:30 Heparin Sodium/D5w 100 Units/Ml IV CONT Not Given On Hold: 10/03/25 17:05 .Q0M [facility] Protocol 0 UNITS/HR Albumin Human 50 mls @ 999 mls/hr 10/03/25 08:47 Albutein IVPB 11/02/25 08:46 Q10M PRN HYPOTENSION Vancomycin HCl 1,000 mg/ 250 mls @ 250 mls/hr 10/05/25 18:00 Sodium Chloride IVPB 10/05/25 18:59 ONCE ONE Insulin Aspart 3 - 6 units 10/01/25 18:00 10/05/25 06:00 Insulin Aspart (*Bkc) 100 Units/Ml SUB-Q Not Given Q6HR [facility] Protocol Levothyroxine Sodium 25 mcg 10/02/25 06:30 10/05/25 06:01 Levothyroxine Sodium Inj 100 Mcg/5 Ml Vial IV PUSH 25 mcg DAILY@0630 [facility] Administration Pantoprazole Sodium 40 mg 10/02/25 09:00 10/05/25 09:15 Pantoprazole Sodium Iv 40 Mg Vial IV PUSH 40 mg QAM [facility] Administration Sodium Chloride 10 ml 10/03/25 14:00 10/05/25 06:01 Central Line Flush IV PUSH 10 ml Q8HR [facility] Administration Sodium Chloride 20 ml 10/03/25 11:21 Central Line Flush IV PUSH PRN PRN after blood draws Vancomycin HCl 1 each 10/01/25 15:02 Vancomycin For Hemodialysis IVPB PRN PRN Vancomycin Protocol Radiology Results: ITS Impressions Head CT 10/01/25 13:35 IMPRESSION: 1. No acute hemorrhage or large acute ischemic event. 2. Possible old right subdural hygroma. 3. Chronic appearing right-sided basal ganglia infarction. Chest/Abdomen/Pelvis CT 10/01/25 13:38 IMPRESSION: 1. Directed noncontrast exam demonstrates cardiomegaly with patchy areas of groundglass opacification which may represent vascular congestion and early decompensation. Enlarged pulmonary arteries may represent pulmonary arterial hypertension. Atypical inflammatory or infectious process could have a similar appearance. 2. Several lung nodules concerning for metastatic malignant process. Hematogenous infectious process could potentially have a similar appearance. 3. Mildly distended gallbladder but no biliary ductal dilatation seen. Correlate with right upper quadrant ultrasound for optimal evaluation. 4. Possible mild urinary bladder wall thickening. Correlate with urinalysis. 5. 4.4 cm ascending thoracic aortic aneurysm Chest X-Ray 10/04/25 15:49 Impression: CHF. Superimposed probable bronchopneumonia Labs Labs: Laboratory Results - last 24 hr 10/04/25 10/04/25 10/04/25 12:08 12:17 13:35 WBC RBC Hgb Hct MCV MCH MCHC RDW Plt Count MPV PT 24.5 H D INR 2.3 APTT 40.7 H Sodium Potassium Chloride Carbon Dioxide Anion Gap BUN Creatinine Estim Creat Clear Calc Estimated GFR Glucose POC Capillary Glucose 155 H Calcium Phosphorus Magnesium Total Bilirubin AST ALT Alkaline Phosphatase Total Protein Albumin Random Vancomycin Blood Type O Positive Antibody Screen Negative 10/04/25 10/04/25 10/04/25 13:40 16:03 17:01 WBC RBC Hgb Hct MCV MCH MCHC RDW Plt Count MPV PT INR APTT Sodium 144 Potassium 3.6 Chloride 103 Carbon Dioxide 19 L Anion Gap 22 H BUN 72 H Creatinine 5.16 H Estim Creat Clear Calc 16 Estimated GFR 11 L Glucose 176 H POC Capillary Glucose 133 H 150 H Calcium 8.3 L Phosphorus Magnesium Total Bilirubin AST ALT Alkaline Phosphatase Total Protein Albumin Random Vancomycin Blood Type Antibody Screen 10/04/25 10/05/25 23:47 04:58 WBC 12.8 H RBC 3.17 L Hgb 8.6 L Hct 27.8 L MCV 87.7 MCH 27.1 MCHC 30.9 L RDW 19.1 H Plt Count 107 L MPV 12.1 H PT 23.5 H INR 2.2 APTT 39.7 H Sodium 143 Potassium 3.7 Chloride 105 Carbon Dioxide 20 L Anion Gap 18 H BUN 79 H Creatinine 5.48 H Estim Creat Clear Calc 15 Estimated GFR 10 L Glucose 171 H POC Capillary Glucose 167 H Calcium 8.2 L Phosphorus 2.4 L Magnesium 2.5 H Total Bilirubin 2.1 H AST 32 ALT 16 Alkaline Phosphatase 217 H Total Protein 6.9 Albumin 3.4 L Random Vancomycin 19.7 Blood Type Antibody Screen
--- NOTE | 2025-10-05 13:18 | PCSTNOTE ---
Please refer to the Bedside Swallow Evaluation in the EMR. Please note, silent aspiration cannot be ruled out at bedside. This 70 year old male patient was seen for a repeat BSE. The previous BSE was completed on 10/03 and was discontinued due to suspected dysphagia. Pt continues to be lethargic but remained alert throughout the evaluation this date. Vocal quality was weak and breathy. An oral motor exam was completed and the pt demonstrated appropriate range of motion and strength for oral intake. Pt is edentulous. Trials of ice chips were presented this date. No s/s of aspiration were noted on the first trial, but the pt demonstrated a delayed swallow and reduced laryngeal elevation on the next two trials. The pt exhibited a weak cough during both trials and was noticeably fatigued. Due to the weak cough and distress, the BSE was discontinued. At this time, it is recommended that further testing (an MBS) be completed to rule out aspiration, determine the safest consistencies for oral intake, and decide on an appropriate plan of care. The pt should remain NPO until the completion of the MBS on Tuesday, 10/07. Dr. Kiran and JADE Cohn were notified of BSE results and recommendations. Thank you for this referral.
--- NOTE | 2025-10-05 15:15 | P.PNNP_ITS ---
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 on [employer]/dialysis ~ a month ago with acute hospitalization at [facility] * apparently missed treatments on 09/28 and 10/01 * on T/T/S schedule at [facility] * s/p cautious IVF resuscitation along with IV albumin * HD today * follow electrolytes, volume status, and clearance (2) Sepsis: Qualifiers: Sepsis acute organ dysfunction status: unspecified Sepsis type: sepsis due to unspecified organism Qualified Code(s): A41.9 - Sepsis, unspecified organism Code(s): A41.9 - Sepsis, unspecified organism Status: Acute Assessment and Plan: * hypotension noted in ER and on admission to medical floor * 90 - 100s systolic in the ER (despite known history of HTN) * 80s systolic on transfer to the floor * associated with generalized weakness * suspect multifactorial etiology... * volume depletion: - diarrhea - poor oral intake - diuretic therapy * ongoing BP medications prior to admission * early infection: - elevated lactic acid (has normalized) - toe wounds * IVF resuscitation within the limits of ESRD status along with IV albumin * follow culture data (blood and urine): * blood cultures (10/01) positive - Methicillin Resistant Staph Aureus * blood cultures (10/04) positive - Gram-positive cocci * urine cultures with no growth * see #3 and #4 * CT imaging (10/01) noted: * cardiomegaly with patchy areas of groundglass opacification which may represent vascular congestion and early decompensation * enlarged pulmonary arteries may represent pulmonary arterial hypertension...atypical inflammatory or infectious process could have a similar appearance * several lung nodules concerning for metastatic malignant process. Hematogenous infectious process could potentially have a similar appearance * mildly distended gallbladder but no biliary ductal dilatation seen. Correlate with right upper quadrant ultrasound for optimal evaluation * ossible mild urinary bladder wall thickening...correlate with urinalysis * 4.4 cm ascending thoracic aortic aneurysm * follow trend of hemodynamics (3) Endocarditis: Code(s): I38 - Endocarditis, valve unspecified Status: Acute Assessment and Plan: * as noted by TTE (on 10/03): * left ventricular ejection fraction is visually estimated to be 35 - 40% * linear artifact in right ventricle suggestive of catheter(s), pacemaker lead(s), or ICD lead(s) * right ventricle is dilated with mildly reduced systolic function * there is evidence of endocarditis measuring 1.6 x 1.1cm along the septal leaflet of the tricuspid valve * mild tricuspid regurgitation * Cardiology and Infectious Disease following * LETY (on 10/04) reviewed: * normal left ventricular size with preserved systolic function * normal mitral valve with trivial amount of central MR * normal aortic valve with trivial amount of central AI * normal pulmonic valve * anatomically normal tricuspid valve with multilobe vegetation associated with the septal leaflet - largest portion measures 1.5 cm in diameter - this vegetation extends to the ventricular lead of the pacemaker - vegetation here is 0.9 cm diameter (4) Bacteremia: Code(s): R78.81 - Bacteremia Status: Acute Assessment and Plan: * blood cultures (on 10/01) with MRSA * repeat blood cultures pending * already on antibiotics * several potential sources: * tunneled HD catheter * pacemaker + leads * PVD/toes * other(?) * s/p removal of tunneled HD catheter and placement of temporary HD catheter by Surgery (on 10/04) * Infectious Disease following with ongoing recommendations noted (5) Wound of foot: Code(s): S91.309A - Unspecified open wound, unspecified foot, initial encounter Status: Acute Assessment and Plan: * right 4th toe with necrotic appearance * wound care following * on antibiotics already (see #2/3/4) (6) Atrial fibrillation/flutter: Status: Acute Assessment and Plan: * known history * Eliquis on hold * heparin gtt on hold for s/p procedures and low platelet count * however, INR elevated (7) HTN (hypertension): Qualifiers: Hypertension type: primary hypertension Qualified Code(s): I10 - Essential (primary) hypertension Code(s): I10 - Essential (primary) hypertension Status: Chronic Assessment and Plan: * known history * however, hypotension noted on admission * BP medications on hold * follow trend of hemodynamics (8) Peripheral vascular disease: Code(s): I73.9 - Peripheral vascular disease, unspecified Status: Chronic Assessment and Plan: * known history and quite severe * s/p mutiple interventions in LEs * s/p toe amputations as noted (9) Diabetes mellitus type 2 in obese: Code(s): E11.69 - Type 2 diabetes mellitus with other specified complication; E66.9 - Obesity, unspecified Status: Chronic Assessment and Plan: * follow accu-checks * 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 L Subjective Date/time seen: 10/05/25 15:15 Interval history: Follow-up for end stage renal disease on hemodialysis. Tolerating dialysis treatment at the time of my visit (seen on HD at 3:05pm); major issue remains ongoing weakness/fatigue - no other acute complaints voiced when seen; s/p tunneled HD catheter removal, LETY, and placement temporary HD catheter yesterday; remains hemodynamically stable; still with low grade fevers in the last 24 hours; noted plans for transfer to another facility due to need for pacemaker removal. Exam 2 Narrative: General: ill-appearing elderly male in no acute distress Heart: normal S1 and S2; no rub Lungs: clear anteriorly; decreased at bases Abdomen: soft, nontender, nondistended, positive bowel sounds Extremities: no cyanosis or clubbing; trace edema Skin: toe wounds/amputations present Objective Data Vital Signs Vital Signs: Vital Signs Temp Pulse Resp BP Pulse Ox O2 Del Method O2 Flow Rate 10/05/25 15:15 65 120/60 10/05/25 15:00 66 117/63 10/05/25 14:45 68 112/64 10/05/25 14:30 76 107/61 10/05/25 14:15 69 93/58 L 10/05/25 14:00 63 122/62 10/05/25 14:00 67 10/05/25 13:47 64 131/64 10/05/25 13:30 99.7 F H 64 27 H 120/60 96 10/05/25 13:00 63 28 H 120/60 98 10/05/25 12:00 62 10/05/25 12:00 95 Room Air 10/05/25 12:00 99.3 F 62 25 H 123/60 96 10/05/25 11:00 61 25 H 128/62 96 10/05/25 10:00 67 10/05/25 10:00 100 F H 63 27 H 121/70 95 10/05/25 09:00 100 F H 64 23 H 130/63 96 10/05/25 08:00 64 10/05/25 08:00 96 Room Air 10/05/25 08:00 99.9 F H 62 28 H 123/63 96 10/05/25 07:00 99.9 F H 62 28 H 122/59 L 96 10/05/25 07:00 99.9 F H 62 27 H 122/59 L 96 10/05/25 06:00 62 10/05/25 06:00 99.9 F H 62 26 H 128/59 L 95 10/05/25 05:00 99.9 F H 63 26 H 120/61 95 10/05/25 04:00 100.0 F H 62 28 H 116/58 L 97 10/05/25 04:00 64 10/05/25 04:00 Room Air 10/05/25 03:45 100.0 F H 64 28 H 96 10/05/25 03:30 100.0 F H 62 28 H 96 10/05/25 03:15 100.0 F H 62 24 H 95 10/05/25 03:01 100.0 F H 63 28 H 96 10/05/25 03:00 100.0 F H 63 20 118/64 97 10/05/25 03:00 100.0 F H 62 26 H 118/64 95 10/05/25 02:45 100.0 F H 64 26 H 95 10/05/25 02:30 100.0 F H 62 27 H 95 10/05/25 02:15 100.0 F H 67 27 H 95 10/05/25 02:01 100.0 F H 69 27 H 112/67 96 10/05/25 02:00 100.0 F H 92 26 H 96 10/05/25 02:00 65 10/05/25 02:00 100.0 F H 69 27 H 112/67 96 10/05/25 01:45 100.0 F H 58 L 28 H 96 10/05/25 01:30 100.0 F H 62 25 H 96 10/05/25 01:15 100.1 F H 63 28 H 96 10/05/25 01:01 100.1 F H 63 24 H 116/60 97 10/05/25 01:00 100.1 F H 63 23 H 96 10/05/25 01:00 100.1 F H 62 26 H 116/60 96 10/05/25 00:45 100.1 F H 62 28 H 96 10/05/25 00:30 100.2 F H 63 27 H 96 10/05/25 00:15 100.2 F H 63 25 H 95 10/05/25 00:01 100.3 F H 61 28 H 118/59 L 97 10/05/25 00:00 100.3 F H 62 28 H 95 10/05/25 00:00 63 10/05/25 00:00 100.3 F H 62 28 H 118/59 L 95 10/05/25 00:00 Room Air 10/04/25 23:45 100.3 F H 63 28 H 95 10/04/25 23:30 100.3 F H 64 24 H 96 10/04/25 23:15 100.3 F H 62 26 H 97 10/04/25 23:01 100.3 F H 62 28 H 113/61 97 10/04/25 23:00 100.4 F H 63 28 H 97 10/04/25 23:00 100.3 F H 64 25 H 113/61 96 10/04/25 22:45 100.4 F H 64 25 H 96 10/04/25 22:30 100.4 F H 64 26 H 97 10/04/25 22:15 100.3 F H 62 27 H 97 10/04/25 22:01 100.3 F H 64 28 H 114/61 98 10/04/25 22:00 100.3 F H 62 25 H 97 10/04/25 22:00 100.3 F H 62 23 H 114/61 98 10/04/25 22:00 62 10/04/25 21:45 100.3 F H 64 26 H 97 10/04/25 21:30 100.2 F H 61 28 H 97 10/04/25 21:15 100.1 F H 62 29 H 97 10/04/25 21:01 100.1 F H 62 22 H 120/62 100 10/04/25 21:00 100.1 F H 62 22 H 100 10/04/25 21:00 100.1 F H 62 23 H 120/62 99 10/04/25 20:45 100.0 F H 62 26 H 96 10/04/25 20:30 100.0 F H 62 18 97 10/04/25 20:15 99.9 F H 61 27 H 96 10/04/25 20:01 99.8 F H 62 27 H 113/62 97 10/04/25 20:00 99.8 F H 63 26 H 97 10/04/25 20:00 62 10/04/25 20:00 Room Air 10/04/25 20:00 99.9 F H 65 26 H 113/62 65 L 10/04/25 19:45 99.8 F H 62 26 H 97 10/04/25 19:30 99.7 F H 63 23 H 96 10/04/25 19:15 99.7 F H 63 24 H 96 10/04/25 19:01 99.7 F H 64 26 H 107/71 99 10/04/25 19:00 99.7 F H 63 25 H 97 10/04/25 19:00 99.7 F H 63 26 H 107/71 97 10/04/25 18:45 99.6 F 63 22 H 96 10/04/25 18:30 99.6 F 62 26 H 96 10/04/25 18:15 99.5 F 62 23 H 95 10/04/25 18:01 99.4 F 63 27 H 117/60 97 10/04/25 18:00 99.4 F 63 24 H 117/60 95 10/04/25 18:00 63 10/04/25 17:07 94 Room Air 10/04/25 17:00 63 10/04/25 17:00 99.5 F 62 22 H 118/69 94 10/04/25 16:43 62 20 118/61 98 Room Air 10/04/25 16:28 62 20 118/63 99 Nasal Cannula 3 10/04/25 16:13 64 20 122/68 99 Nasal Cannula 3 10/04/25 16:10 96 Nasal Cannula 3 Intake/Output Intake/Output: Intake & Output 10/02/25 10/03/25 10/04/25 10/05/25 23:59 23:59 23:59 23:59 Intake Total 742.9 302.8 385 Output Total 100 175 65 50 Balance 642.9 127.8 320 -50 Meds/Results Medications: Active Medications Generic Name Dose Route Start Last Admin Trade Name Krystal PRN Reason Stop Dose Admin Acetaminophen 650 mg 10/01/25 13:23 10/03/25 22:37 Acetaminophen 650 Mg Suppository RECTAL 650 mg Q6H PRN Administration Mild Pain (1-3) or Fever Dextrose 12.5 gm 10/01/25 13:04 Dextrose 50% 25 Gm/50 Ml Syringe IV PUSH PRN PRN Hypoglycemia Protocol Epoetin Laron-epbx 10,000 units 10/05/25 19:28 Epoetin Laron-Epbx 10,000 Units/Ml Vial IV PUSH 10/05/25 19:29 ONCE ONE Fentanyl Citrate 25 mcg 10/04/25 16:49 Fentanyl Citrate Inj (*Crx) 100 Mcg/2 Ml Vial IV PUSH Q2H PRN Pain Rated 7-10 Fentanyl Citrate 12.5 mcg 10/04/25 16:49 Fentanyl Citrate Inj (*Crx) 100 Mcg/2 Ml Vial IV PUSH Q2H PRN Pain Rated 4-6 Glucagon 1 mg 10/01/25 13:04 Glucagon For Inj 1 Mg Vial IM PRN PRN Hypoglycemia Protocol Glucose 15 gm 10/01/25 13:04 Glucose Oral Gel 15 Gm Of Glucse In 37.5 Gm Tube PO PRN PRN Hypoglycemia Protocol Heparin Sodium (Porcine) 7,500 units 10/01/25 14:23 Heparin Sodium 5,000 Units/Ml Vial IV PUSH On Hold: 10/04/25 08:48 PRN PRN aPTT less than 55 seconds Heparin Sodium (Porcine) 3,500 units 10/01/25 14:23 10/03/25 06:34 Heparin Sodium 5,000 Units/Ml Vial IV PUSH 3,500 units On Hold: 10/04/25 08:48 PRN PRN Administration aPTT 55 - 70 seconds Dextrose 1,000 mls @ 100 mls/hr 10/01/25 13:04 Dextrose 5% 1,000 Ml IVPB PRN PRN Hypoglycemia Protocol Heparin Sodium/Dextrose 25,000 units in 250 mls @ 0 mls/hr 10/01/25 14:25 10/03/25 19:30 Heparin Sodium/D5w 100 Units/Ml IV CONT Not Given On Hold: 10/03/25 17:05 .Q0M [facility] Protocol 0 UNITS/HR Albumin Human 50 mls @ 999 mls/hr 10/03/25 08:47 Albutein IVPB 11/02/25 08:46 Q10M PRN HYPOTENSION Vancomycin HCl 1,000 mg/ 250 mls @ 250 mls/hr 10/05/25 18:00 Sodium Chloride IVPB 10/05/25 18:59 ONCE ONE Insulin Aspart 3 - 6 units 10/01/25 18:00 10/05/25 12:17 Insulin Aspart (*Bkc) 100 Units/Ml SUB-Q Not Given Q6HR [facility] Protocol Levothyroxine Sodium 25 mcg 10/02/25 06:30 10/05/25 06:01 Levothyroxine Sodium Inj 100 Mcg/5 Ml Vial IV PUSH 25 mcg DAILY@0630 [facility] Administration Pantoprazole Sodium 40 mg 10/02/25 09:00 10/05/25 09:15 Pantoprazole Sodium Iv 40 Mg Vial IV PUSH 40 mg QAM [facility] Administration Sodium Chloride 10 ml 10/03/25 14:00 10/05/25 06:01 Central Line Flush IV PUSH 10 ml Q8HR [facility] Administration Sodium Chloride 20 ml 10/03/25 11:21 Central Line Flush IV PUSH PRN PRN after blood draws Vancomycin HCl 1 each 10/01/25 15:02 Vancomycin For Hemodialysis IVPB PRN PRN Vancomycin Protocol Radiology Results: ITS Impressions Head CT 10/01/25 13:35 IMPRESSION: 1. No acute hemorrhage or large acute ischemic event. 2. Possible old right subdural hygroma. 3. Chronic appearing right-sided basal ganglia infarction. Chest/Abdomen/Pelvis CT 10/01/25 13:38 IMPRESSION: 1. Directed noncontrast exam demonstrates cardiomegaly with patchy areas of groundglass opacification which may represent vascular congestion and early decompensation. Enlarged pulmonary arteries may represent pulmonary arterial hypertension. Atypical inflammatory or infectious process could have a similar appearance. 2. Several lung nodules concerning for metastatic malignant process. Hematogenous infectious process could potentially have a similar appearance. 3. Mildly distended gallbladder but no biliary ductal dilatation seen. Correlate with right upper quadrant ultrasound for optimal evaluation. 4. Possible mild urinary bladder wall thickening. Correlate with urinalysis. 5. 4.4 cm ascending thoracic aortic aneurysm Chest X-Ray 10/04/25 15:49 Impression: CHF. Superimposed probable bronchopneumonia Labs Labs: Laboratory Tests 10/05/25 04:58 10/05/25 04:58 PT 23.5 H INR 2.2 Phosphorus 2.4 L Magnesium 2.5 H Total Bilirubin 2.1 H AST 32 ALT 16 Alkaline Phosphatase 217 H Total Protein 6.9 Albumin 3.4 L Random Vancomycin 19.7 Microbiology 10/03/25 07:54 Blood Blood Culture - Preliminary 10/03/25 07:45 Blood Blood Culture - Preliminary 10/01/25 12:11 Blood Blood Culture - Final Methicillin Resis Staph Aureus 10/01/25 12:17 Blood Blood Culture - Final Methicillin Resis Staph Aureus
[2025-10-05] MEDS: EPOETIN ALFA-EPBX 10,000 UNITS/ML VIAL 10000 UNITS IV PUSH (16:06)
--- NOTE | 2025-10-05 16:39 | P.TS_ITS ---
Transfer Discharge Sum: Prov Provider Date of admission: 10/02/25 10:01 Primary care physician: Bryan Hough, MD Admitting clinician: Melissa Vergara MD Consults: 10/01/25 Consult to Physician Routine Comment: Consulting Provider: Saw Perry Reason for consultation: ICU admission Has provider been notified: Yes Wound/ET Consult Routine Reason for Consult:: Right 4th toe wound 10/03/25 Consult to Physician Routine Comment: Consulting Provider: Blake Hopkins Reason for consultation: removal of PermCath and placement of temporary HD catheter (endocarditis) Has provider been notified: No 10/03/25 13:37 Consult to Physician Routine Comment: Spoke with exchange 10/03 @ 0738 Consulting Provider: Taj May shell grader/MD group to consult: Infectious disease Reason for consultation: Endocarditis Has provider been notified: Yes 10/03/25 14:02 Consult Infectious Disease Pharmacist Routine Comment: Initiate coordination of ID Physician consult. 10/03/25 14:12 Consult to Physician Routine Comment: Spoke with provider 10/04/25 Consulting Provider: Bryan Russell shell grader/MD group to consult: Cardiology Reason for consultation: Cardiomyopathy, endocarditis Has provider been notified: Yes DS: Admitting Diagnosis Discharge Date 10/05/25 Admitting Diagnosis Sepsis DS: Discharge Diagnosis Discharge Diagnosis (1) Generalized weakness: Code(s): R53.1 - Weakness Status: Acute (2) Wound of foot: Code(s): S91.309A - Unspecified open wound, unspecified foot, initial encounter Status: Acute (3) Bacteremia: Code(s): R78.81 - Bacteremia Status: Acute (4) CLABSI (central line-associated bloodstream infection): Code(s): T80.211A - Bloodstream infection due to central venous catheter, initial encounter Status: Acute (5) Staphylococcus aureus bacteremia with sepsis: Code(s): A41.01 - Sepsis due to Methicillin susceptible Staphylococcus aureus Status: Acute (6) Diabetic foot ulcer with osteomyelitis: Code(s): E11.621 - Type 2 diabetes mellitus with foot ulcer; E11.69 - Type 2 diabetes mellitus with other specified complication; L97.509 - Non-pressure chronic ulcer of other part of unspecified foot with unspecified severity; M86.9 - Osteomyelitis, unspecified Status: Acute (7) End stage renal disease: Code(s): N18.6 - End stage renal disease Status: Chronic Plan 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 we have MRSA bacteremia with tricuspid valve endocarditis and right ventricular pacemaker lead with vegetation -patient presented generalized weakness, diarrhea, poor p.o. intake -right femoral triple-lumen catheter placed for IV access -right tunneled HD catheter removed, new Left IJ HD cath placed 10/04 -blood cultures 10/01 positive for MRSA, repeat cultures 10/03 persistent GPC -antibiotics: monotherapy with IV vanc 10/01-will discontinue cefazolin with MRSA on cultures -LETY 10/04: Findings of tricuspid valve endocarditis as well as vegetation right ventricular pacemaker lead -chest x-ray neg, head CT possible right subdural hygroma -chronic diabetic ulcers on foot, continue local wound care -acute metabolic encephalopathy, improving -keep NPO until SOFTWARE WRITER eval -transfer to [facility] for pacemaker lead removal 10/05/25 ESRD on HD TTS -has a tunneled right IJ HD catheter -renal failure has progressed ESRD -appreciate braided rug maker consultation -still responding to Bumex and metolazone? Incidental finding -nodule suggesting metastatic malignant process -will need outpatient monitoring of lung nodules Chronic conditions- NPO, held home PO meds -atrial fibrillation: Amiodarone, rate control metoprolol, anticoagulation Mely mani -type 2 diabetes: Sliding scale insulin, Accu-Cheks q.6 hours, hypoglycemia protocol. At home on glargine 25 units twice daily -hypothyroidism: Levothyroxine -BPH: flomax -chronic right foot DFU: continue local wound care -anemia of CKD: Given EPO by braided rug maker -hyperlipidemia: Aspirin/plavix, statin. Will have to evaluate if patient should be on triple therapy -supplements: B complex -GERD: Pepcid -muscle spasms: cyclobenzaprine Diet: NPO (failed SOFTWARE WRITER eval) DVT prophylaxis: Heparin drip GI prophylaxis: IV Protonix Code status: Full code Disposition: Downgraded to medical floor, transfer to tertiary [facility] to remove infected hardware pacemaker and and further management of tricuspid valve endocarditis Social: updated bedside Transfer Discharge Sum: Med Medications Active and Home Medications: Home Medications atorvastatin 20 mg tablet 20 mg PO HS 06/30/23 [History Confirmed 10/01/25] amiodarone 200 mg tablet (Pacerone) 200 mg PO Q12HR #60 tabs 07/01/23 [Rx Confirmed 10/01/25] aspirin 81 mg chewable tablet (Children's Aspirin) 81 mg PO DAILY@0800 #30 tabs 07/01/23 [Rx Confirmed 10/01/25] cyclobenzaprine 10 mg tablet 5 mg (1/2 x 10 mg) PO Q8H PRN Muscle Spasm #30 tabs 07/01/23 [Rx Confirmed 10/01/25] famotidine 20 mg tablet 20 mg PO DAILY #30 tabs 07/01/23 [Rx Confirmed 10/01/25] levothyroxine 50 mcg tablet (Synthroid) 50 mcg PO DAILY@0630 #30 tabs 07/01/23 [Rx Confirmed 10/01/25] metoprolol tartrate 25 mg tablet 25 mg PO Q12HR #60 tabs 07/01/23 [Rx Confirmed 10/01/25] tamsulosin 0.4 mg capsule 0.4 mg PO QAM #30 caps 07/01/23 [Rx Confirmed 10/01/25] albuterol 90 mcg/actuation aerosol inhaler 90 mcg inhalation .q4hr PRN shortness of breath 02/14/25 [History Confirmed 10/01/25] apixaban 5 mg tablet (Eliquis) 5 mg PO BID 02/14/25 [History Confirmed 10/01/25] bumetanide 1 mg tablet 1 mg PO BID 02/14/25 [History Confirmed 10/01/25] insulin glargine 100 unit/mL (3 mL) subcutaneous pen (Basaglar KwikPen U-100 Insulin) 25 unit subcut .q12hr 02/14/25 [History Confirmed 10/01/25] insulin lispro 100 unit/mL subcutaneous pen (Humalog KwikPen (U-100) Insulin) 10 unit subcut TIDWM 02/14/25 [History Confirmed 10/01/25] metolazone 2.5 mg tablet 2.5 mg PO QMWF 02/14/25 [History Confirmed 10/01/25] acetaminophen 325 mg tablet 650 mg PO Q4H PRN Pain Rated 5 Or Less 04/12/25 [History Confirmed 10/01/25] clopidogrel 75 mg tablet 75 mg PO DAILY 04/12/25 [History Confirmed 10/01/25] B complex 11-folic acid 1 mg-C 100 mg-biotin 300 mcg-zinc 50 mg tablet (Dialyvite) 1 tablet PO DAILY 10/01/25 [History Confirmed 10/01/25] acetaminophen 500 mg tablet 500 mg PO Q6H PRN fever or pain 10/01/25 [History Confirmed 10/01/25] Active Medications Acetaminophen (Acetaminophen 650 Mg Suppository) 650 mg RECTAL Q6H PRN PRN Reason: Mild Pain (1-3) or Fever Last Admin: 10/03/25 22:37 Dose: 650 mg Dextrose (Dextrose 50% 25 Gm/50 Ml Syringe) 12.5 gm IV PUSH PRN PRN; Protocol PRN Reason: Hypoglycemia Epoetin Laron-epbx (Epoetin Laron-Epbx 10,000 Units/Ml Vial) 10,000 units IV PUSH ONCE ONE Stop: 10/05/25 19:29 Last Admin: 10/05/25 16:06 Dose: 10,000 units Fentanyl Citrate (Fentanyl Citrate Inj (*Crx) 100 Mcg/2 Ml Vial) 25 mcg IV PUSH Q2H PRN PRN Reason: Pain Rated 7-10 Fentanyl Citrate (Fentanyl Citrate Inj (*Crx) 100 Mcg/2 Ml Vial) 12.5 mcg IV PUSH Q2H PRN PRN Reason: Pain Rated 4-6 Glucagon (Glucagon For Inj 1 Mg Vial) 1 mg IM PRN PRN; Protocol PRN Reason: Hypoglycemia Glucose (Glucose Oral Gel 15 Gm Of Glucse In 37.5 Gm Tube) 15 gm PO PRN PRN; Protocol PRN Reason: Hypoglycemia Heparin Sodium (Porcine) (Heparin Sodium 5,000 Units/Ml Vial) 7,500 units IV PUSH PRN PRN On Hold: 10/04/25 08:48 PRN Reason: aPTT less than 55 seconds Heparin Sodium (Porcine) (Heparin Sodium 5,000 Units/Ml Vial) 3,500 units IV PUSH PRN PRN On Hold: 10/04/25 08:48 PRN Reason: aPTT 55 - 70 seconds Last Admin: 10/03/25 06:34 Dose: 3,500 units Dextrose (Dextrose 5% 1,000 Ml) 1,000 mls @ 100 mls/hr IVPB PRN PRN; Protocol PRN Reason: Hypoglycemia Heparin Sodium/Dextrose (Heparin Sodium/D5w 100 Units/Ml) 25,000 units in 250 mls @ 0 mls/hr IV CONT .Q0M TORY; Protocol On Hold: 10/03/25 17:05 Last Admin: 10/03/25 19:30 Dose: Not Given Albumin Human (Albutein) 50 mls @ 999 mls/hr IVPB Q10M PRN PRN Reason: HYPOTENSION Stop: 11/02/25 08:46 Vancomycin HCl 1,000 mg/ (Sodium Chloride) 250 mls @ 250 mls/hr IVPB ONCE ONE Stop: 10/05/25 18:59 Insulin Aspart (Insulin Aspart (*Bkc) 100 Units/Ml) 3 - 6 units SUB-Q Q6HR [facility]; Protocol Last Admin: 10/05/25 12:17 Dose: Not Given Levothyroxine Sodium (Levothyroxine Sodium Inj 100 Mcg/5 Ml Vial) 25 mcg IV PUSH DAILY@0630 [facility] Last Admin: 10/05/25 06:01 Dose: 25 mcg Pantoprazole Sodium (Pantoprazole Sodium Iv 40 Mg Vial) 40 mg IV PUSH QAM [facility] Last Admin: 10/05/25 09:15 Dose: 40 mg Sodium Chloride (Central Line Flush) 10 ml IV PUSH Q8HR [facility] Last Admin: 10/05/25 06:01 Dose: 10 ml Sodium Chloride (Central Line Flush) 20 ml IV PUSH PRN PRN PRN Reason: after blood draws Vancomycin HCl (Vancomycin For Hemodialysis) 1 each IVPB PRN PRN PRN Reason: Vancomycin Protocol Transfer Discharge Sum: Hosp Hospital Course Hospital course: Gildardo Kat is a 70 year old male with past medical history of ESRD on HD TTS, atrial fibrillation, type 2 diabetes insulin-dependent, hypothyroidism, BPH, chronic anemia of CKD, hyperlipidemia, GERD, history of muscle spasms presents the ED with altered mental status on 10/01/2025. He had triggered sepsis and was placed on broad-spectrum antibiotics vancomycin Zosyn. He appeared to be volume depleted with lactic acidosis of 3.9. He was given some IV fluids. He is a dialysis patient with right subclavian HD catheter. His blood cultures are positive for MRSA and he was deescalated to vancomycin IV monotherapy. There was concern for a tunneled HD catheter line infection with the bacteremia. Subsequently the right tunneled subclavian HD catheter was replaced with a left temporary IJ HD catheter on 10/04/25. Patient is on dialysis Tuesday. For IV access we have placed a central line the right femoral vein on 10/03. On TTE he was found to have endocarditis of tricuspid valve. On 10/04 we completed a LETY, to follow up the TTE, with findings of obvious infective vegetations of the tricuspid valve as well as vegetations on the right ventricular pacemaker lead. Despite being on IV vancomycin from 10/01 he continue to be bacteremic with MRSA, BCx 10/01 and 10/03 are both positive. Of note patient had significant altered mental status and has been kept NPO. He failed an SOFTWARE WRITER eval on 10/05/25 with recommendation to continue NPO status. We have placed NG tube for tube feeds. With the infected leads, we are unable to provide the necessary procedures to replace the pacemaker. He will be transferred to tertiary care center [facility] for further management of the tricuspid endocarditis and pacemaker lead removal. As his blood pressure has been stable, and not requiring any critical drips, he has been downgrade to the medical floor. WBC hovering around 10-15k. At time of discharge his labs are stable, vitals stable, patient is stable for transfer to [facility]. Family has been updated. MRSA bacteremia, tricuspid endocarditis, infectious vegetation on right ventricular pacemaker lead Patient Condition: Stable Time Spent with Patient Time attestation: Total time spent providing and/or coordinating transfer services: 40 minutes Exam Narrative: - GENERAL: Pleasant male in no acute di stress - EYES: EOMI. Anicteric. - HENT: Moist mucous membranes. - LUNGS: Clear to auscultation bilateral ly but diminished, no wheezing or rhonchi - CARDIOVASCULAR: Regular rate and rhyth m. removed right tunneled HD cath, new temporary left IJ HD cath in place - ABDOMEN: Soft, non-tender and non-dist ended. - EXTREMITIES: no edema. Peripheral puls es 2+. RLE femoral TLC - NEUROLOGIC: No focal neurological defi cits. CN II-XII grossly intact. - PSYCHIATRIC: Awake, Alert and oriented to self. flat affect. Poor insight DS: Data Data Completed and Pending Labs on day of discharge: Labs from last 24 hours 10/05/25 10/05/25 10/04/25 11:53 04:58 23:47 WBC 12.8 H RBC 3.17 L Hgb 8.6 L Hct 27.8 L MCV 87.7 MCH 27.1 MCHC 30.9 L RDW 19.1 H Plt Count 107 L MPV 12.1 H PT 23.5 H INR 2.2 APTT 39.7 H Sodium 143 Potassium 3.7 Chloride 105 Carbon Dioxide 20 L Anion Gap 18 H BUN 79 H Creatinine 5.48 H Estim Creat Clear Calc 15 Estimated GFR 10 L Glucose 171 H POC Capillary Glucose 178 H 167 H Calcium 8.2 L Phosphorus 2.4 L Magnesium 2.5 H Total Bilirubin 2.1 H AST 32 ALT 16 Alkaline Phosphatase 217 H Total Protein 6.9 Albumin 3.4 L Random Vancomycin 19.7 10/04/25 17:01 WBC RBC Hgb Hct MCV MCH MCHC RDW Plt Count MPV PT INR APTT Sodium 144 Potassium 3.6 Chloride 103 Carbon Dioxide 19 L Anion Gap 22 H BUN 72 H Creatinine 5.16 H Estim Creat Clear Calc 16 Estimated GFR 11 L Glucose 176 H POC Capillary Glucose Calcium 8.3 L Phosphorus Magnesium Total Bilirubin AST ALT Alkaline Phosphatase Total Protein Albumin Random Vancomycin Preliminary micro results at discharge 10/03/25 07:54 Blood Culture - Preliminary Blood 10/03/25 07:45 Blood Culture - Preliminary Blood Procedures/Treatments: 10/04/25 for MRSA endocarditis with bacteremia, end-stage renal disease on hemodialysis Procedure Performed Removal right subclavian tunneled central venous catheter, placement left internal jugular central venous catheter with side port for hemodialysis under fluoroscopy and using ultrasound Surgeon Blake Hopkins MD Left IJ temporary hemodialysis catheter placed 10/04/25 after removing tunneled HD cath right subcalvian Right femoral central line 10/03/25 Imaging Radiologist's impression: CT head 10/01/25 IMPRESSION: 1. No acute hemorrhage or large acute ischemic event. 2. Possible old right subdural hygroma. 3. Chronic appearing right-sided basal ganglia infarction. CT C/A/P 10/01/25 IMPRESSION: 1. Directed noncontrast exam demonstrates cardiomegaly with patchy areas of groundglass opacification which may represent vascular congestion and early decompensation. Enlarged pulmonary arteries may represent pulmonary arterial hypertension. Atypical inflammatory or infectious process could have a similar appearance. 2. Several lung nodules concerning for metastatic malignant process. Hematogenous infectious process could potentially have a similar appearance. 3. Mildly distended gallbladder but no biliary ductal dilatation seen. Correlate with right upper quadrant ultrasound for optimal evaluation. 4. Possible mild urinary bladder wall thickening. Correlate with urinalysis. 5. 4.4 cm ascending thoracic aortic aneurysm CXR 10/04/25 Impression: CHF. Superimposed probable bronchopneumonia
[2025-10-05] MEDS: VANCOMYCIN HCL 1,000 MG in SODIUM CHLORIDE 0.9% IV 250 ML 250 MG IVPB (18:10)
== END 2025-10-05 18:48 | disposition short-term general hospital (02) | DRG 314 ==
LOC: ANHED 09:46 → ANH2MED 10:06 → ANHICU 12:38
PROVIDERS: Internal Medicine; Internal Medicine Nephrology; Specialist; Surgery; Admitting Provider Family Medicine; Emergency Provider Emergency Medicine; PCP Internal Medicine; Visit Provider Student in an Organized Health Care Education/Training Program
PROC: 02HV33Z Insertion of Infusion Device into Superior Vena Cava, Percutaneous Approach (ICD-10-PCS; CPT 36908; principal; 2025-10-04 13:30)
PROC: B24BZZ4 Ultrasonography of Heart with Aorta, Transesophageal (ICD-10-PCS; CPT 93312; 2025-10-04 13:30)
DX: T80.211A Bloodstream infection due to central venous catheter, initial encounter (principal); A41.02 Sepsis due to Methicillin resistant Staphylococcus aureus; G93.41 Metabolic encephalopathy; N18.6 End stage renal disease; I33.0 Acute and subacute infective endocarditis; E43 Unspecified severe protein-calorie malnutrition; R65.21 Severe sepsis with septic shock; T82.7XXA Infection and inflammatory reaction due to other cardiac and vascular devices, implants and grafts, initial encounter; M86.9 Osteomyelitis, unspecified; N17.9 Acute kidney failure, unspecified; I13.0 Hypertensive heart and chronic kidney disease with heart failure and stage 1 through stage 4 chronic kidney disease, or unspecified chronic kidney disease; E11.621 Type 2 diabetes mellitus with foot ulcer; I50.9 Heart failure, unspecified; E11.69 Type 2 diabetes mellitus with other specified complication; L97.509 Non-pressure chronic ulcer of other part of unspecified foot with unspecified severity; I48.91 Unspecified atrial fibrillation; E11.319 Type 2 diabetes mellitus with unspecified diabetic retinopathy without macular edema; N40.0 Benign prostatic hyperplasia without lower urinary tract symptoms; R19.7 Diarrhea, unspecified; D63.1 Anemia in chronic kidney disease; E78.5 Hyperlipidemia, unspecified; E11.22 Type 2 diabetes mellitus with diabetic chronic kidney disease; N18.2 Chronic kidney disease, stage 2 (mild); K21.9 Gastro-esophageal reflux disease without esophagitis; E66.9 Obesity, unspecified; E86.1 Hypovolemia; E86.0 Dehydration; I73.9 Peripheral vascular disease, unspecified; R91.8 Other nonspecific abnormal finding of lung field; M62.838 Other muscle spasm; R13.10 Dysphagia, unspecified; I71.21 Aneurysm of the ascending aorta, without rupture; L97.519 Non-pressure chronic ulcer of other part of right foot with unspecified severity; E03.9 Hypothyroidism, unspecified; Z79.01 Long term (current) use of anticoagulants; Z79.02 Long term (current) use of antithrombotics/antiplatelets; Z95.0 Presence of cardiac pacemaker; Z99.2 Dependence on renal dialysis; Z68.33 Body mass index [BMI] 33.0-33.9, adult
CPT/HCPCS: 36415; 70450; 71045; 71046; 71250; 74176; 77001; 80048; 80053; 80202; 82550; 82948; 83605; 83690; 83735; 84100; 84443; 85025; 85027; 85055; 85610; 85730; 86140; 86706; 86850; 86900; 86901; 87040; 87086; 87186; 87340; 87493; 87637; 87641; 92610; 92611; 93005; 93312; 93320; 93325; 96365; 96366; 96367; 96375; 99212; 99285; A9270; C1751; C1752; C8929; G0257; G0378; G0463; J0650; J0690; J1644; J2003; J2004; J2371; J2470; J2543; J2704; J3010; J3373; J3480; J7030; J7040; J7050; J7120; P9047; Q5105; Q9957